=== PATIENT | male | born 1955 | race Caucasian/White ===

== ENCOUNTER 2022-12-02 14:31 | Emergency (ER) | payer MEDICARE, SELFPAY ==
[2022-12-02 14:45] VITALS: BP 143/94; PULSE 74; RESP 16; TEMP 36.9; O2SAT 98; BMI 26.6
--- NOTE | 2022-12-02 15:03 | ED.GENADULT ---
HPI - General Adult General Chief complaint: Urogenital Problems, Male Stated complaint: UTI only one kidney Time Seen by Provider: 12/02/22 14:50 History of Present Illness HPI narrative: This 67-year-old male comes in reporting increased pressure when voiding urine over the past 24 hours or so. He states that he did not did not sleep so well last night. He reports that he has 1 kidney and has had urinary tract infections in the past. He comes in to rule out urinary tract infection. Other than this he has been in good health and has no other complaints. He denies having any fevers or pain when voiding urine. Related Data Home Medications Medication Instructions Recorded Confirmed amlodipine 5 mg tablet 5 mg PO DAILY 12/02/22 12/02/22 clonazepam 0.5 mg tablet mg PO 12/02/22 mirtazapine 7.5 mg tablet 7.5 mg PO QPM 12/02/22 12/02/22 pravastatin 40 mg tablet 40 mg PO DAILY 12/02/22 12/02/22 Previous Rx's Medication Instructions Recorded cephalexin 500 mg capsule 500 mg PO TID 10 days #30 caps 12/02/22 Allergies Allergy/AdvReac Type Severity Reaction Status Date / Time No Known Drug Allergies Allergy Verified 12/02/22 14:42 Review of Systems Status of ROS: Reports: 10 or more systems reviewed and unremarkable except as noted in History and below Narrative: Constitutional: No fevers, no weight gain or loss. Eyes: No discharge. No vision changes. HENT: No congestion, no sore throat, no ear pain. Cardiovascular: No chest pain, no palpitations. Respiratory: No shortness of breath, no wheezes, no cough. Gastrointestinal: No abdominal pain, no vomiting, no diarrhea. Genitourinary: No hematuria. Increased pressure when voiding urine. Musculoskeletal: Normal range of motion. Skin: No rashes, no pruritis. Neurological: No dizziness, weakness, sensory change, speech change. Endo/Heme/Allergies: No bruising or bleeding. No polydipsia. Pysch: no suicidality, no anxiety, no insomnia. All other systems reviewed and are negative. PFSH PFS Social History Smoking Status: Never smoker How often do you have a drink containing alcohol: never AUDIT-C Alcohol total score: 0 Non-prescribed substance use: denies use service: No Exam Narrative: Exam Narrative: Constitutional: Well-developed, well-nourished, no acute distress. HEENT: Normocephalic, atraumatic. Neck: Normal range of motion. Nontender. Supple. Heart: Regular. No murmurs. Normal rate. Intact distal pulses. Lungs: Clear to auscultation. No chest discomfort. No wheezes, rhonchi, or rales. Abdomen: Normal bowel sounds. Nontender. No rebound tenderness. Genitalia: Deferred. Back: No midline tenderness. Normal range of motion. Extremities: Normal range of motion. No injury. Skin: Intact. No rash. Warm. No erythema or pallor. Neurologic: No altered sensation. No weakness. Alert and oriented. Psychiatric: No suicidality. No anxiety or depression. No insomnia. Nursing notes and vitals signs are reviewed. Const: Vital Signs, click to edit/add: Vital Signs - 24 hr 12/02/22 14:45 Temperature 98.4 F Pulse Rate [Right Pulse Oximeter] 74 Respiratory Rate 16 Blood Pressure [Ri ght Upper Arm] 143/94 H Pulse Oximetry 98 Oxygen Delivery Me thod Room Air Course Vital Signs Vital signs: Initial Vital Signs Temperature 98.4 F 12/02/22 14:45 Temperature Source Temporal Artery Scan 12/02/22 14:45 Pulse Rate 74 12/02/22 14:45 Pulse Rhythm Regular 12/02/22 14:45 Respiratory Rate 16 12/02/22 14:45 Blood Pressure 143/94 H 12/02/22 14:45 Blood Pressure Mean 110 12/02/22 14:45 Blood Pressure Position Sitting 12/02/22 14:45 Pulse Oximetry 98 12/02/22 14:45 Oxygen Delivery Method Room Air 12/02/22 14:45 Vital Signs Temperature 98.4 F 12/02/22 14:45 Pulse Rate 74 12/02/22 14:45 Respiratory Rate 16 12/02/22 14:45 Blood Pressure 143/94 H 12/02/22 14:45 Pulse Oximetry 98 12/02/22 14:45 Oxygen Delivery Method Room Air 12/02/22 14:45 Temperature 98.4 F 12/02/22 14:45 Pulse Rate 74 12/02/22 14:45 Respiratory Rate 16 12/02/22 14:45 Blood Pressure 143/94 H 12/02/22 14:45 Pulse Oximetry 98 12/02/22 14:45 Oxygen Delivery Method Room Air 12/02/22 14:45 Medical Decision Making MDM Narrative Medical decision making narrative: This patient comes in with concern of a possibility of urinary tract infection. Urinalysis does show 10-25 white blood cells per high-powered field. The patient states that he has just 1 kidney but this seems to be functioning properly. A prescription for Keflex is provided. At the time of discharge the patient appears safe for outpatient management. The treatment plan is reviewed along with written and verbal return precautions. Reasons to return and the importance of close followup were also reviewed. Lab Data Labs: Lab Results 12/02/22 Range/Units 14:53 Urine Color Light yellow (Yellow) Urine Appearance Clear (Clear) Urine pH 6.5 (5.0-8.5) Ur Specific [place] 1.010 (1.000-1.030) Urine Protein Negative (Negative) Urine Glucose (UA) Negative (Negative) Urine Ketones Negative (Negative) Urine Blood Trace-intact A (Negative) Urine Nitrite Negative (Negative) Urine Bilirubin Negative (Negative) Urine Urobilinogen 0.2 (0.2-1.0) Ur Leukocyte Esterase 3+ A (Negative) Urine RBC 0-2 (0-2) Urine WBC 10-25 A (0-5) Ur Squamous Epith Cells None (None-Few) Urine Bacteria Few A (None) Discharge Plan Discharge Clinical Impression: Urinary tract infection Patient Disposition: Home, Self-Care Condition: Unchanged Additional Instructions: Take medication as prescribed. Follow up with MD as needed or return if worsening. Prescriptions: New cephalexin 500 mg capsule 500 mg PO TID 10 Days Qty: 30 0RF No Action pravastatin 40 mg tablet 40 mg PO DAILY clonazepam 0.5 mg tablet PO amlodipine 5 mg tablet 5 mg PO DAILY mirtazapine 7.5 mg tablet 7.5 mg PO QPM Follow Up/Referrals: Provider,Not a Local [Primary Care Provider] - Stand Alone Forms: [employer] Info Instructions
[2022-12-02 15:05] LABS: Appearance Urine Clear (Clear); Bilirubin Urine Negative (Negative); Blood Urine Trace-intact (Negative); Color Urine Light yellow (Yellow); Glucose Urine Negative (Negative); Ketones Urine Negative (Negative); Leukocyte Esterase Urine 3+ (Negative); Nitrite Urine Negative (Negative); Protein Urine Negative (Negative); Urobilinogen Urine 0.2 (0.2-1.0); pH Urine 6.5 (5.0-8.5)
[2022-12-02 15:26] LABS: Bacteria Urine Few; RBC Urine 0-2 (0-2)
== END 2022-12-02 15:41 | disposition home or self-care (01) ==
PROVIDERS: Emergency Provider Emergency Medicine Emergency Medical Services
DX: N39.0 Urinary tract infection, site not specified (principal)
CPT/HCPCS: 81003; 81015; 87086; 87186; 99283; 99284

== ENCOUNTER 2023-01-16 08:44 | Emergency (ER) | payer MEDICARE, SELFPAY ==
[2023-01-16 08:48] VITALS: BP 154/77; PULSE 71; RESP 18; TEMP 36.9; O2SAT 97; BMI 26.6
--- NOTE | 2023-01-16 09:10 | ED_ITS ---
HPI - General Adult General Chief complaint: Allergic Reaction Stated complaint: full body rash after medication change Time Seen by Provider: 01/16/23 08:57 History of Present Illness HPI narrative: PATIENT IS A 67-YEAR-OLD MALE, who took Lexapro last night and lisinopril and a it increased dose today. He noted some rash in his knees his chest his arms. No throat or tongue swelling, no breathing difficulty. Patient has had no chest pain. No history of allergic reaction to medication. He is on mirtazapine as well but has been for quite some time. He is also on pravastatin. Related Data Home Medications Medication Instructions Recorded Confirmed clonazepam 0.5 mg tablet mg PO 12/02/22 mirtazapine 7.5 mg tablet 7.5 mg PO QPM 12/02/22 12/02/22 pravastatin 40 mg tablet 40 mg PO DAILY 12/02/22 01/16/23 escitalopram oxalate 5 mg tablet 5 mg PO DAILY 01/16/23 01/16/23 lisinopril 10 mg tablet 10 mg PO DAILY 01/16/23 01/16/23 Previous Rx's Medication Instructions Recorded cephalexin 500 mg capsule 500 mg PO TID 10 days #30 caps 12/02/22 Allergies Allergy/AdvReac Type Severity Reaction Status Date / Time No Known Drug Allergies Allergy Verified 12/02/22 14:42 Review of Systems Status of ROS: Reports: 6 or more systems reviewed and unremarkable except as noted in History and below [facility] Social History Smoking Status: Never smoker How often do you have a drink containing alcohol: never AUDIT-C Alcohol total score: 0 Non-prescribed substance use: denies use service: No Exam Narrative: Exam Narrative: Objective: Vital signs show slightly elevated blood pressure, and otherwise unremarkable HEENT is unremarkable no facial asymmetry tongue appears midline and no swelling, throat is clear Neck is supple Lungs are clear Heart rhythm regular heart murmur Abdomen benign soft nontender no masses or hepatomegaly Extremities are no edema Neurologic nonfocal, good peripheral perfusion Skin shows the rash in his knees his thighs his abdomen forearms. This looks like a macular rash consistent with a drug rash. Const: Vital Signs, click to edit/add: Vital Signs - 24 hr 01/16/23 08:48 Temperature 98.5 F Pulse Rate [Right Pulse Oximeter] 71 Respiratory Rate 18 Blood Pressure [Ri ght Upper Arm] 154/77 H Pulse Oximetry 97 Oxygen Delivery Me thod Room Air Course Vital Signs Vital signs: Initial Vital Signs Temperature 98.5 F 01/16/23 08:48 Temperature Source Temporal Artery Scan 01/16/23 08:48 Pulse Rate 71 01/16/23 08:48 Respiratory Rate 18 01/16/23 08:48 Blood Pressure 154/77 H 01/16/23 08:48 Blood Pressure Mean 102 01/16/23 08:48 Blood Pressure Position Sitting 01/16/23 08:48 Pulse Oximetry 97 01/16/23 08:48 Oxygen Delivery Method Room Air 01/16/23 08:48 Vital Signs Temperature 98.5 F 01/16/23 08:48 Pulse Rate 71 01/16/23 08:48 Respiratory Rate 18 01/16/23 08:48 Blood Pressure 154/77 H 01/16/23 08:48 Pulse Oximetry 97 01/16/23 08:48 Oxygen Delivery Method Room Air 01/16/23 08:48 Temperature 98.5 F 01/16/23 08:48 Pulse Rate 71 01/16/23 08:48 Respiratory Rate 18 01/16/23 08:48 Blood Pressure 154/77 H 01/16/23 08:48 Pulse Oximetry 97 01/16/23 08:48 Oxygen Delivery Method Room Air 01/16/23 08:48 Medical Decision Making MDM Narrative Medical decision making narrative: Patient has a generalized allergic reaction skin rash likely to medication. He has no new other new antigen exposures, but he did take Lexapro for the 1st time last night and lisinopril at a higher dose today. At this point I would recommend he stop the lisinopril and Lexapro. Watch for the next 12 to48 hours., Benadryl as needed, watch for any throat tightening her tongue swelling. Recheck with regular doctor next 2-3 days regarding restarting medication. Continue to monitor his blood pressure, may take some Benadryl as well as mention. Return as needed to ED. Discharge Plan Discharge Clinical Impression: Allergic reaction Patient Disposition: Home, Self-Care Condition: Stable Additional Instructions: HOLD LISINOPRIL AND LEXAPRO. DISCUSSED WITH IN THE NEXT 12-48 HOURS REGARDING RESTARTING MEDICATION. RETURN IF ANY DIFFICULTY BREATHING TONGUE SWELLING OR OTHER PROBLEMS. MAY TAKE AN OCCASIONAL BENADRYL IF NEEDED. Activity Level: Light activity Discharge Diet: Regular Prescriptions: No Action pravastatin 40 mg tablet 40 mg PO DAILY clonazepam 0.5 mg tablet PO mirtazapine 7.5 mg tablet 7.5 mg PO QPM cephalexin 500 mg capsule 500 mg PO TID 10 Days Qty: 30 0RF lisinopril 10 mg tablet 10 mg PO DAILY escitalopram oxalate 5 mg tablet 5 mg PO DAILY Follow Up/Referrals: Natalie Juárez DO [Primary Care Provider] - Stand Alone Forms: [facility] Info Instructions
== END 2023-01-16 09:15 | disposition home or self-care (01) ==
PROVIDERS: Emergency Provider Family Medicine; PCP Family Medicine
DX: R21 Rash and other nonspecific skin eruption (principal); T50.905A Adverse effect of unspecified drugs, medicaments and biological substances, initial encounter
CPT/HCPCS: 99283

== ENCOUNTER 2023-03-01 10:56 | Emergency (ER) | payer MEDICARE, SELFPAY ==
[2023-03-01 11:07] VITALS: BP 128/74; PULSE 62; RESP 16; TEMP 36.8; O2SAT 97; BMI 25.0
--- NOTE | 2023-03-01 11:13 | ED.SKABFB ---
HPI - Skin/Abscess/Foreign Bdy General Time Seen by Provider: 11:18 Date Seen: 03/01/23 Chief complaint: Skin/Abscess/Foreign Body Stated complaint: Rash Time Seen by Provider: 03/01/23 11:12 Source: patient, RN notes reviewed and old records reviewed Mode of arrival: ambulatory Limitations: no limitations History of Present Illness HPI narrative: Patient is coming in with a rash on his lower extremities that has been present on and off for over year. He does see Dermatology for precancerous skin lesions. He has not had this rash evaluated by them. He does not note any bleeding excessively if he cut some self. No bleeding with brushing his teeth. He maybe will get a sock line on his socks but does not denote any significant shortness of breath or edema. He states he does do a lot of walking. He wonders if it is how he sleeps as this is where his legs will rest on each other. The rash is not itchy, not symptomatic of anything. He did not try to get into clinic, has not been evaluated for this. MD complaint: rash Related Data Home Medications Medication Instructions Recorded Confirmed clonazepam 0.5 mg tablet mg PO 12/02/22 mirtazapine 7.5 mg tablet 7.5 mg PO QPM 12/02/22 12/02/22 pravastatin 40 mg tablet 40 mg PO DAILY 12/02/22 01/16/23 escitalopram oxalate 5 mg tablet 5 mg PO DAILY 01/16/23 01/16/23 lisinopril 10 mg tablet 10 mg PO DAILY 01/16/23 01/16/23 Previous Rx's Medication Instructions Recorded cephalexin 500 mg capsule 500 mg PO TID 10 days #30 caps 12/02/22 Allergies Allergy/AdvReac Type Severity Reaction Status Date / Time No Known Drug Allergies Allergy Verified 03/01/23 11:10 Review of Systems Narrative: As per HPI PFSH PFSH Social History Smoking Status: Never smoker Do you use any of these nicotine containing products: None How often do you have a drink containing alcohol: never AUDIT-C Alcohol total score: 0 Non-prescribed substance use: denies use service: No Exam Const: Vital Signs, click to edit/add: Vital Signs - 24 hr 03/01/23 11:07 Temperature 98.2 F Pulse Rate [Right Pulse Oximeter] 62 Respiratory Rate 16 Blood Pressure [Ri ght Upper Arm] 128/74 Pulse Oximetry 97 Oxygen Delivery Me thod Room Air Documenting provider has reviewed patient's vital signs: yes Common normals: no apparent distress, average body habitus, oriented x3, no limitations, healthy appearing and alert General appearance: cooperative, comfortable, well kempt and well developed HENMT: Common normals: normocephalic, head/scalp atraumatic and hearing grossly normal bilaterally Head and scalp: normocephalic and atraumatic Eye: Common normals: PERRL, EOMs intact bilaterally, conjunctivae normal and no scleral icterus Conjunctiva: conjunctiva(e) normal Pupil: PERRL Resp: Common normals: normal respiratory effort, no retractions, no use of accessory muscles and clear to auscultation bilaterally Effort & inspection: able to speak in complete sentences Auscultation: clear to auscultation bilaterally Cardio: Common normals: regular rate, regular rhythm, S1 normal heart sound, S2 normal heart sound, no gallops, no clicks and no murmurs Rate: regular rate Rhythm: regular rhythm Heart sounds: S1 normal and S2 normal Extremity: Other: Has trace pitting edema along the anterior tibia, sock line noted. On the inner surface of both of his lower extremities above the malleoli and about a [address] up there is a erythematous non blanchable rash consistent with small micro hemorrhages in the skin. He does not have significant edema and does not report this. He does wonder if it is how he sleeps with his legs rubbing together. Neuro: Common normals: oriented x3 Sensorium/orientation: alert Psych: Appearance: well kempt Course Course Hospital Course: Did review with patient that this does look like a petechial skin rash with microhemorrhages that we frequently see in patients with chronic edema. He believes he had labs done about a month ago. The only thing I would suggest is that we make sure his CBC showing normal platelet count. He has no stigmata of bleeding elsewhere that would suggest an abnormality. If he had a CBC that was normal a month ago in this rash is been going on for over a year, believe that he is stable to follow up outpatient and just observe. Reevaluation(s) Reevaluation #1: One month ago erin blood count was 9000, hemoglobin 15 and platelet count [id number]. Reviewed with Luciano that I believe this be benign, do wonder if in his case could be contributed by his sleeping pattern with his legs rubbing in this area as the rash is the worst in these positions. Maybe see some faint spots laterally on the lower legs. Did discuss that this can be seen with underlying venous insufficiency/edema. He does have some varicose veins that are visible medial thigh area. Vital Signs Vital signs: Initial Vital Signs Temperature 98.2 F 03/01/23 11:07 Temperature Source Temporal Artery Scan 03/01/23 11:07 Pulse Rate 62 03/01/23 11:07 Pulse Rhythm Regular 03/01/23 11:07 Pulse Strength 3+ Normal 03/01/23 11:07 Respiratory Rate 16 03/01/23 11:07 Blood Pressure 128/74 03/01/23 11:07 Blood Pressure Mean 92 03/01/23 11:07 Blood Pressure Position Sitting 03/01/23 11:07 Pulse Oximetry 97 03/01/23 11:07 Oxygen Delivery Method Room Air 03/01/23 11:07 Vital Signs Temperature 98.2 F 03/01/23 11:07 Pulse Rate 62 03/01/23 11:07 Respiratory Rate 16 03/01/23 11:07 Blood Pressure 128/74 03/01/23 11:07 Pulse Oximetry 97 03/01/23 11:07 Oxygen Delivery Method Room Air 03/01/23 11:07 Temperature 98.2 F 03/01/23 11:07 Pulse Rate 62 03/01/23 11:07 Respiratory Rate 16 03/01/23 11:07 Blood Pressure 128/74 03/01/23 11:07 Pulse Oximetry 97 03/01/23 11:07 Oxygen Delivery Method Room Air 03/01/23 11:07 Critical Care Time Critical Care Time Critical Care Time: No Discharge Plan Discharge Clinical Impression: Rash Patient Disposition: Home, Self-Care Condition: Stable Instructions: Venous Insufficiency (DC) Additional Instructions: This rash appears benign and is likely small microvascular hemorrhages in the skin, we see these frequently in medicine. Continue with your exercise and walking. Can show this to your information delivery analyst or primary provider when you follow up, do recommend scheduling an appointment. Activity Level: Activity as Tolerated Discharge Diet: Heart Healthy (2 gm sodium, low fat) Prescriptions: No Action pravastatin 40 mg tablet 40 mg PO DAILY clonazepam 0.5 mg tablet PO mirtazapine 7.5 mg tablet 7.5 mg PO QPM cephalexin 500 mg capsule 500 mg PO TID 10 Days Qty: 30 0RF lisinopril 10 mg tablet 10 mg PO DAILY escitalopram oxalate 5 mg tablet 5 mg PO DAILY Follow Up/Referrals: Natalie Juárez DO [Primary Care Provider] - Stand Alone Forms: [facility] Info Instructions
== END 2023-03-01 11:55 | disposition home or self-care (01) ==
PROVIDERS: Emergency Provider Family Medicine; PCP Family Medicine
DX: R21 Rash and other nonspecific skin eruption (principal)
CPT/HCPCS: 99282; 99283

== ENCOUNTER 2023-03-11 10:31 | Emergency (ER) | payer MEDICARE, SELFPAY ==
[2023-03-11 10:49] VITALS: BP 114/82; PULSE 64; RESP 16; TEMP 36.8; O2SAT 96; BMI 25.8
--- NOTE | 2023-03-11 11:16 | ED_ITS ---
HPI - General Adult General Time Seen by Provider: 11:16 Date Seen: 03/11/23 Chief complaint: Skin/Abscess/Foreign Body Stated complaint: Rash lower legs Time Seen by Provider: 03/11/23 10:44 History of Present Illness HPI narrative: Patient is a 67-year-old male history of hypertension and depression presenting to the emergency department for rash to his bilateral lower extremities. He states this rash has been on off for the past year. States he 1st noticed it again this morning and was mostly on his right lower extremity in the medial aspect of lower leg. There is a small area on the left leg too. States previously 3 weeks ago new seen in the emergency department for this it was worse. Patient does note the last occurrence of a rash or the worst 2. He has not had any associated pruritus or pain. No numbness or weakness noted. Patient states the rash is asymptomatic but he wanted to have it evaluated. She does have a dermatology appointment scheduled for next month and a primary care appointment for next week. Denies chest pain, headache, weakness, numbness, diarrhea, chest pain, shortness of breath. Related Data Home Medications Medication Instructions Recorded Confirmed clonazepam 0.5 mg tablet mg PO 12/02/22 mirtazapine 7.5 mg tablet 7.5 mg PO QPM 12/02/22 03/11/23 pravastatin 40 mg tablet 40 mg PO DAILY 12/02/22 03/11/23 escitalopram oxalate 5 mg tablet 5 mg PO DAILY 01/16/23 03/11/23 lisinopril 10 mg tablet 10 mg PO DAILY 01/16/23 03/11/23 amlodipine 5 mg tablet mg 03/11/23 Previous Rx's Medication Instructions Recorded cephalexin 500 mg capsule 500 mg PO TID 10 days #30 caps 12/02/22 Allergies Allergy/AdvReac Type Severity Reaction Status Date / Time No Known Drug Allergies Allergy Verified 03/01/23 11:10 Review of Systems Status of ROS: Reports: 10 or more systems reviewed and unremarkable except as noted in History and below [facility] Social History Smoking Status: Never smoker Do you use any of these nicotine containing products: None How often do you have a drink containing alcohol: never AUDIT-C Alcohol total score: 0 Non-prescribed substance use: denies use service: No Exam Narrative: Exam Narrative: Const: Well-nourished, Well-developed, in mild distress Eyes: PERRL, no conjunctival injection, and symmetrical lids ENMT: Atraumatic external nose and ears. Moist mucous membranes. Neck: Symmetric, trachea midline, MSK:Extremities w/o deformity, Normal Active ROM Skin: Warm, Dry. Petechial rash seen in the right remaining with apparent remote 1 cm wound and from cm stone. Is another 1 x 1 cm rash seen around the left Neuro: Normal Muscle tone, No focal neurological deficits. Psych: Awake, Alert, & Oriented x3. Appropriate mood and affect. Const: Vital Signs, click to edit/add: Vital Signs - 24 hr 03/11/23 10:49 Temperature 98.3 F Pulse Rate [Pulse Oximeter] 64 Respiratory Rate 16 Blood Pressure [Ri ght Upper Arm] 114/82 Pulse Oximetry 96 Oxygen Delivery Me thod Room Air Course Vital Signs Vital signs: Initial Vital Signs Temperature 98.3 F 03/11/23 10:49 Temperature Source Temporal Artery Scan 03/11/23 10:49 Pulse Rate 64 03/11/23 10:49 Respiratory Rate 16 03/11/23 10:49 Blood Pressure 114/82 03/11/23 10:49 Blood Pressure Mean 92 03/11/23 10:49 Blood Pressure Position Supine 03/11/23 10:49 Pulse Oximetry 96 03/11/23 10:49 Oxygen Delivery Method Room Air 03/11/23 10:49 Vital Signs Temperature 98.3 F 03/11/23 10:49 Pulse Rate 64 03/11/23 10:49 Respiratory Rate 16 03/11/23 10:49 Blood Pressure 114/82 03/11/23 10:49 Pulse Oximetry 96 03/11/23 10:49 Oxygen Delivery Method Room Air 03/11/23 10:49 Temperature 98.3 F 03/11/23 10:49 Pulse Rate 64 03/11/23 10:49 Respiratory Rate 16 03/11/23 10:49 Blood Pressure 114/82 03/11/23 10:49 Pulse Oximetry 96 03/11/23 10:49 Oxygen Delivery Method Room Air 03/11/23 10:49 Medical Decision Making MDM Narrative Medical decision making narrative: Patient is a 67 year old male presents emergency department for a rash on his bilateral lower extremities. Rash appears petechiae nature. It is not raised. He is asymptomatic with a rash. States has been on off for the past year and is getting in with his district adviser next month in primary care provider next week. States he last had the rash was 3 weeks ago and went away after a few days. He is not know what is causing it. He last had lab work but 2 months ago so we will repeat CBC to check his platelet levels. And I do not believe further workup is necessary at this time. Symptom is doing well and this is a chronic issue for the past year. CBC did return showing no concerning abnormalities. Is unclear what is causing this rash at this time but He continues to be asymptomatic with normal vital signs. We will discharge the patient home informed them to take pictures of the rash is to show them to his district adviser and primary care provider in case this appears before he is able to see them. Patient is agreeable with this plan. Differential Diagnosis Differential Diagnosis: Allergic reaction, contact dermatitis, heat dermatitis, viral dermatitis Lab Data Lab results reviewed: Yes I reviewed the patient's lab results Labs: Lab Results 03/11/23 Range/Units 11:45 WBC 6.97 (4.50-11.00) K/uL RBC 5.07 (4.30-5.90) m/uL Hgb 15.2 (13.5-17.5) gm/dL Hct 45.1 (37.0-53.0) % MCV 89 (80-100) fL MCH 30 (26-34) pg MCHC 34 (32-36) gm/dL RDW Coeff of Barbara 12.5 (11.5-15.5) % Plt Count 262 (140-440) K/uL Neut % (Auto) 54.5 (42.0-72.0) % Lymph % (Auto) 32.1 (20-44) % [place] % (Auto) 11.6 H (0.0-11.0) % Eos % (Auto) 1.1 (0.0-7.0) % Baso % (Auto) 0.4 (0.0-3.0) % Neut # (Auto) 3.79 (1.7-7.0) K/uL Lymph # (Auto) 2.24 (0.90-2.90) K/uL [place] # (Auto) 0.80 (0.00-0.90) K/UL Eos # (Auto) 0.08 (0.00-0.50) K/uL Baso # (Auto) 0.03 (0.00-0.30) K/uL Abs Immat Gran (auto) 0.02 (0.00-0.30) K/uL Imm/Tot Granulo (auto) 0.3 % Discharge Plan Discharge Clinical Impression: Rash Patient Disposition: Home, Self-Care Condition: Stable Instructions: Acute Rash (ED) Additional Instructions: Follow up with your district adviser and your primary care provider. Take photos of the rash in case it goes away. Return for new or worsening symptoms. Prescriptions: No Action pravastatin 40 mg tablet 40 mg PO DAILY clonazepam 0.5 mg tablet PO mirtazapine 7.5 mg tablet 7.5 mg PO QPM cephalexin 500 mg capsule 500 mg PO TID 10 Days Qty: 30 0RF lisinopril 10 mg tablet 10 mg PO DAILY escitalopram oxalate 5 mg tablet 5 mg PO DAILY amlodipine 5 mg tablet Patient Comments: TAKE 1 TABLET (5 MG) BY MOUTH ONCE DAILY. Follow Up/Referrals: Natalie Juárez DO [Primary Care Provider] - Stand Alone Forms: [employer] Info Instructions
[2023-03-11 11:51] LABS: Basophils Absolute Auto 0.03 K/uL (0.00-0.30); Basophils Percent Auto 0.4 % (0.0-3.0); Eosinophils Absolute Auto 0.08 K/uL (0.00-0.50); Eosinophils Percent Auto 1.1 % (0.0-7.0); Hematocrit 45.1 % (37.0-53.0); Hemoglobin* 15.2 gm/dL (13.5-17.5); Immature Granulocytes Abs Auto 0.02 K/uL (0.00-0.30); Immature Granulocytes Pct Auto 0.3 %; Lymphocytes Absolute Auto 2.24 K/uL (0.90-2.90); Lymphocytes Percent Auto 32.1 % (20-44); Mean Corpuscular HGB Conc 34 gm/dL (32-36); Mean Corpuscular Hemoglobin 30 pg (26-34); Mean Corpuscular Volume 89 fL (80-100); Monocytes Percent Auto 11.6 % (0.0-11.0); Neutrophils Absolute Auto 3.79 K/uL (1.7-7.0); Neutrophils Percent Auto 54.5 % (42.0-72.0); Platelet Count* 262 K/uL (140-440); RDW Coefficient of Variation % 12.5 % (11.5-15.5); Red Blood Count 5.07 m/uL (4.30-5.90); White Blood Count* 6.97 K/uL (4.50-11.00)
[2023-03-11 11:54] LABS: Slide Review Reflex No
== END 2023-03-11 12:18 | disposition home or self-care (01) ==
PROVIDERS: Emergency Provider Student in an Organized Health Care Education/Training Program; PCP Family Medicine
DX: R21 Rash and other nonspecific skin eruption (principal)
CPT/HCPCS: 36415; 85025; 99282; 99285

== ENCOUNTER 2023-03-30 13:36 | Emergency (ER) | payer MEDICARE, SELFPAY ==
[2023-03-30 13:49] VITALS: BP 116/76; PULSE 69; RESP 18; TEMP 36.4; O2SAT 97; BMI 26.6
[2023-03-30 14:20] LABS: Appearance Urine Clear (Clear); Bilirubin Urine Negative (Negative); Blood Urine Negative (Negative); Color Urine Yellow (Yellow); Glucose Urine Negative (Negative); Ketones Urine Negative (Negative); Leukocyte Esterase Urine Negative (Negative); Nitrite Urine Negative (Negative); Protein Urine Negative (Negative); Specific Gravity Urine <= 1.005 (1.000-1.030); Urobilinogen Urine 0.2 (0.2-1.0)
--- NOTE | 2023-03-30 14:30 | ED.MALEGU ---
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 Severity: mild Associated symptoms: Reports denies other symptoms Related Data Home Medications Medication Instructions Recorded Confirmed clonazepam 0.5 mg tablet mg PO 12/02/22 mirtazapine 7.5 mg tablet 7.5 mg PO QPM 12/02/22 03/11/23 pravastatin 40 mg tablet 40 mg PO DAILY 12/02/22 03/11/23 escitalopram oxalate 5 mg tablet 5 mg PO DAILY 01/16/23 03/11/23 lisinopril 10 mg tablet 10 mg PO DAILY 01/16/23 03/11/23 amlodipine 5 mg tablet mg 03/11/23 Previous Rx's Medication Instructions Recorded cephalexin 500 mg capsule 500 mg PO TID 10 days #30 caps 12/02/22 Allergies Allergy/AdvReac Type Severity Reaction Status Date / Time No Known Drug Allergies Allergy Verified 03/01/23 11:10 Review of Systems Status of ROS: Reports: 10 or more systems reviewed and unremarkable except as noted in History and below PFSH PFSH Social History Smoking Status: Never smoker Do you use any of these nicotine containing products: None How often do you have a drink containing alcohol: never AUDIT-C Alcohol total score: 0 Non-prescribed substance use: denies use service: No Exam Narrative: Exam Narrative: On examination and stabilization room 2, he is in no apparent distress, abdomen is soft, there is no guarding, slightly obese. Urinalysis pending Const: Vital Signs, click to edit/add: Vital Signs - 24 hr 03/30/23 13:49 Temperature 97.5 F L Pulse Rate [Right Pulse Oximeter] 69 Respiratory Rate 18 Blood Pressure [Ri ght Upper Arm] 116/76 Pulse Oximetry 97 Oxygen Delivery Me thod Room Air Documenting provider has reviewed patient's vital signs: yes Course Vital Signs Vital signs: Initial Vital Signs Temperature 97.5 F L 03/30/23 13:49 Temperature Source Temporal Artery Scan 03/30/23 13:49 Pulse Rate 69 03/30/23 13:49 Respiratory Rate 18 03/30/23 13:49 Blood Pressure 116/76 03/30/23 13:49 Blood Pressure Mean 89 03/30/23 13:49 Blood Pressure Position Sitting 03/30/23 13:49 Pulse Oximetry 97 03/30/23 13:49 Oxygen Delivery Method Room Air 03/30/23 13:49 Vital Signs Temperature 97.5 F L 03/30/23 13:49 Pulse Rate 69 03/30/23 13:49 Respiratory Rate 18 03/30/23 13:49 Blood Pressure 116/76 03/30/23 13:49 Pulse Oximetry 97 03/30/23 13:49 Oxygen Delivery Method Room Air 03/30/23 13:49 Temperature 97.5 F L 03/30/23 13:49 Pulse Rate 69 03/30/23 13:49 Respiratory Rate 18 03/30/23 13:49 Blood Pressure 116/76 03/30/23 13:49 Pulse Oximetry 97 03/30/23 13:49 Oxygen Delivery Method Room Air 03/30/23 13:49 MDM - Male Genitourinary MDM Narrative Medical decision making narrative: During this evaluation I considered multiple causes including acute abdominal pain, UTI, Differential Diagnosis Differential diagnosis: Likely urinary tract infection, epididymitis, prostatitis and acute retention of urine Medical Records Attestation: I reviewed the patient's medical records. Lab Data Attestation: I reviewed the patient's lab results. Labs: Lab Results 03/30/23 Range/Units 14:12 Urine Color Yellow (Yellow) Urine Appearance Clear (Clear) Urine pH 6.0 (5.0-8.5) Ur Specific [place] <= 1.005 (1.000-1.030) Urine Protein Negative (Negative) Urine Glucose (UA) Negative (Negative) Urine Ketones Negative (Negative) Urine Blood Negative (Negative) Urine Nitrite Negative (Negative) Urine Bilirubin Negative (Negative) Urine Urobilinogen 0.2 (0.2-1.0) Ur Leukocyte Esterase Negative (Negative) Urine RBC 0-2 (0-2) Urine WBC 0-2 (0-5) Ur Squamous Epith Cells Few (None-Few) Urine Bacteria None (None) Discharge Plan Discharge Clinical Impression: Abdominal discomfort Patient Disposition: Home, Self-Care Condition: Stable Instructions: Abdominal Pain (ED), Pelvic Pain (ED) Additional Instructions: No evidence of infection seen on urinalysis, I would go home and I would watch this Luciano lots of fluids rest, may be related to early in the week some mild overheating and dehydration, your kidney seem to be working good when I look at the urinalysis. Activity Level: Light activity Prescriptions: No Action pravastatin 40 mg tablet 40 mg PO DAILY clonazepam 0.5 mg tablet PO mirtazapine 7.5 mg tablet 7.5 mg PO QPM cephalexin 500 mg capsule 500 mg PO TID 10 Days Qty: 30 0RF lisinopril 10 mg tablet 10 mg PO DAILY escitalopram oxalate 5 mg tablet 5 mg PO DAILY amlodipine 5 mg tablet Patient Comments: TAKE 1 TABLET (5 MG) BY MOUTH ONCE DAILY. Follow Up/Referrals: Natalie Juárez DO [Primary Care Provider] - Stand Alone Forms: [employer] Info Instructions
[2023-03-30 14:38] LABS: RBC Urine 0-2 (0-2); WBC Urine 0-2 (0-5)
[2023-03-30 14:39] LABS: Squamous Epithelial Cell Urine Few (None-Few)
== END 2023-03-30 15:26 | disposition home or self-care (01) ==
LOC: ED 15:20
PROVIDERS: Emergency Provider Family Medicine; PCP Family Medicine
DX: R10.30 Lower abdominal pain, unspecified (principal)
CPT/HCPCS: 81001; 99282; 99283

== ENCOUNTER 2023-04-23 23:47 | Outpatient (CLI) | payer MEDICARE, SELFPAY | END 2023-04-23 23:48 | disposition home or self-care (01) | LOC: AMB 04-27 19:25 | PROVIDERS: PCP Family Medicine; Visit Provider Emergency Medicine | DX: T67.5XXA Heat exhaustion, unspecified, initial encounter (principal); X30.XXXA Exposure to excessive natural heat, initial encounter; Y92.003 Bedroom of unspecified non-institutional (private) residence as the place of occurrence of the external cause | CPT/HCPCS: A0998 ==

== ENCOUNTER 2023-09-06 14:47 | Emergency (ER) | payer MEDICARE, OTHER, SELFPAY ==
[2023-09-06 15:00] VITALS: BP 157/92; PULSE 69; RESP 16; TEMP 36.6; O2SAT 95; BMI 25.8
--- NOTE | 2023-09-06 15:16 | CRLHL7_ITS ---
For Patients: As a result of the Century Cures Act, medical imaging exams and procedure reports are released immediately into your electronic medical record. You may view this report before your referring provider. If you have questions, please contact your health care provider. INDICATION: Chest pain. TECHNIQUE: Two views COMPARISON: None. FINDINGS: Patient positioning: The patient is not rotated. Adequate inspiration. Heart and mediastinum: Normal transverse dimension of the cardiac silhouette. No significant abnormalities. Lungs and pleural spaces: Clear lungs and pleural spaces. Bones and soft tissues: No acute findings. Chronic appearing mild L1 superior endplate compression deformity. Bilateral symmetric gynecomastia. IMPRESSION: No radiographic findings to explain the clinical history of chest pain. Incidental findings described above. Dictated by Daren Alex MD @ 09/06/2023 6:16:28 PM (Electronically Signed)
--- NOTE | 2023-09-06 15:20 | ED.GENADULT ---
HPI - General Adult General Chief complaint: Chest Pain Stated complaint: Chest pain Time Seen by Provider: 09/06/23 15:02 Source: patient Mode of arrival: ambulatory Limitations: no limitations History of Present Illness HPI narrative: 68-year-old male coming in today complaining of chest pain. Pain is been present for about 3 days. It is a sharp pain that lasts a few seconds when it comes. It is substernal, at the very distal border of the sternum. Patient denies shortness of breath, fevers or chills. He denies changes in his appetite. Sometimes he does feel that pain right when he eats. Other times the pain comes and goes at random times, not associated with any physical activity. 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 Patient states that he has had a mesh put down down there and he takes daily Imodium. He states that every now and then he takes too much Imodium when he becomes backed up. He does state that he has felt constipated over the last several days as well. He states he has been gassier with increased burping. Past medical history is also significant for hypertension, hyperlipidemia, depression, anxiety and insomnia. Patient is on Pravachol, daily aspirin, lisinopril, mirtazapine, escitalopram, clonazepam and amlodipine. Patient lives alone. Related Data Home Medications Medication Instructions Recorded Confirmed clonazepam 0.5 mg tablet mg PO 12/02/22 mirtazapine 7.5 mg tablet 7.5 mg PO QPM 12/02/22 09/06/23 pravastatin 40 mg tablet 40 mg PO DAILY 12/02/22 09/06/23 escitalopram oxalate 5 mg tablet 5 mg PO DAILY 01/16/23 03/11/23 lisinopril 10 mg tablet 10 mg PO DAILY 01/16/23 03/11/23 amlodipine 5 mg tablet mg 03/11/23 aspirin 81 mg tablet,delayed 81 mg PO DAILY 09/06/23 09/06/23 release (Adult Aspirin Regimen) Previous Rx's Medication Instructions Recorded cephalexin 500 mg capsule 500 mg PO TID 10 days #30 caps 12/02/22 Allergies Allergy/AdvReac Type Severity Reaction Status Date / Time No Known Drug Allergies Allergy Verified 03/01/23 11:10 Review of Systems Status of ROS: Reports: 10 or more systems reviewed and unremarkable except as noted in History and below [facility] Social History Smoking Status: Never smoker Do you use any of these nicotine containing products: None How often do you have a drink containing alcohol: never How often do you have six or more drinks on one occasion: Never AUDIT-C Alcohol total score: 0 Non-prescribed substance use: denies use service: No Exam Narrative: Exam Narrative: Well-nourished well-developed patient in no acute distress. Alert and oriented. Answers questions appropriately. Mood and affect are appropriate. Thoughts are goal oriented and rational. No tangential or magical thinking noted. Patient speaks in full sentences without needing to catch their breath. Patient is currently asymptomatic. HEENT: Normocephalic atraumatic. Pupils are equally round reactive to light. Extraocular muscles are intact. Conjunctivae are moist without any icterus noted. Moist mucous membranes. Posterior pharynx is normal. Neck is soft without any lymphadenopathy or thyromegaly. No masses are appreciated. Cardiovascular: Heart is regular rate and rhythm S1 and S2 are present without any murmurs. I cannot reproduce his pain with palpation. Lungs: Clear to auscultation bilaterally no wheezes rhonchi or rales are appreciated. Patient takes deep breaths without any discomfort. Abdomen: Soft and nontender nondistended with normal bowel sounds. No guarding or rebound. Extremities: Bilateral lower extremities are without edema. Normal DP and PT pulses. Skin: Well perfused without any obvious rashes. Const: Vital Signs, click to edit/add: Vital Signs - 24 hr 09/06/23 15:00 Temperature 97.8 F Pulse Rate [Pulse Oximeter] 69 Respiratory Rate 16 Blood Pressure [Ri ght Upper Arm] 157/92 H Pulse Oximetry 95 Oxygen Delivery Me thod Room Air Course Course ED Course: EKG, read by me, shows normal sinus rhythm with a pulse of 69. Lab work was unremarkable. Potassium was slightly low at 3.2, 20 mEq of potassium chloride was given orally today for replacement. Chest x-ray, read by me, does not show any acute infiltrates or pathology. Does show a moderate amount of stool in the upper abdomen. Patient remained asymptomatic while he was here. Vital Signs Vital signs: Initial Vital Signs Temperature 97.8 F 09/06/23 15:00 Temperature Source Temporal Artery Scan 09/06/23 15:00 Pulse Rate 69 09/06/23 15:00 Respiratory Rate 16 09/06/23 15:00 Blood Pressure 157/92 H 09/06/23 15:00 Blood Pressure Mean 113 H 09/06/23 15:00 Blood Pressure Position Supine 09/06/23 15:00 Pulse Oximetry 95 09/06/23 15:00 Oxygen Delivery Method Room Air 09/06/23 15:00 Vital Signs Temperature 97.8 F 09/06/23 15:00 Pulse Rate 69 09/06/23 15:00 Respiratory Rate 16 09/06/23 15:00 Blood Pressure 157/92 H 09/06/23 15:00 Pulse Oximetry 95 09/06/23 15:00 Oxygen Delivery Method Room Air 09/06/23 15:00 Temperature 97.8 F 09/06/23 15:00 Pulse Rate 69 09/06/23 15:00 Respiratory Rate 16 09/06/23 15:00 Blood Pressure 157/92 H 09/06/23 15:00 Pulse Oximetry 95 09/06/23 15:00 Oxygen Delivery Method Room Air 09/06/23 15:00 Medications Administered Medications: Discontinued Medications Generic Name Dose Route Start Last Admin Trade Name Freq PRN Reason Stop Dose Admin Potassium Chloride 20 meq 09/06/23 16:21 09/06/23 16:48 Potassium Chloride 10 Meq Capsule Er PO 09/06/23 16:22 20 meq ONCE ONE Administration Medical Decision Making MDM Narrative Medical decision making narrative: 68-year-old male with zaps of lower chest discomfort. Given his history and workup today I do not believe this represents acute coronary syndrome, PE, pneumonia, pneumothorax or any other life-threatening condition. Could be from his constipation. At this time recommend symptomatic treatment follow-up as needed. Lab Data Lab results reviewed: Yes I reviewed the patient's lab results Labs: Lab Results 09/06/23 Range/Units 15:30 WBC 7.32 (4.50-11.00) K/uL RBC 5.11 (4.30-5.90) m/uL Hgb 15.5 (13.5-17.5) gm/dL Hct 45.4 (37.0-53.0) % MCV 89 (80-100) fL MCH 30 (26-34) pg MCHC 34 (32-36) gm/dL RDW Coeff of Barbara 12.3 (11.5-15.5) % Plt Count 271 (140-440) K/uL Neut % (Auto) 46.2 (42.0-72.0) % Lymph % (Auto) 40.3 (20-44) % [place] % (Auto) 11.5 H (0.0-11.0) % Eos % (Auto) 1.6 (0.0-7.0) % Baso % (Auto) 0.3 (0.0-3.0) % Neut # (Auto) 3.38 (1.7-7.0) K/uL Lymph # (Auto) 2.95 H (0.90-2.90) K/uL [place] # (Auto) 0.80 (0.00-0.90) K/UL Eos # (Auto) 0.12 (0.00-0.50) K/uL Baso # (Auto) 0.02 (0.00-0.30) K/uL Abs Immat Gran (auto) 0.01 (0.00-0.30) K/uL Imm/Tot Granulo (auto) 0.1 % D-Dimer Quant (PE/DVT) 0.27 (0.00-0.50) ug/ml Sodium 138 (135-149) mmol/L Potassium 3.2 L (3.6-5.1) mmol/L Chloride 104 (96-114) mmol/L Carbon Dioxide 24 (20-32) mmol/L Anion Gap 10 (7-15) mEq/L BUN 23 (7-30) mg/dL Creatinine 1.3 (0.5-1.5) mg/dL Estimated Creat Clear 50.44 Estimated GFR 61 ml/min Glucose 92 (60-115) mg/dL Calcium 9.0 (8.4-10.6) mg/dL Total Bilirubin 0.6 (0.1-1.5) mg/dL Direct Bilirubin 0.1 (0.0-0.5) mg/dL AST 27 (12-35) U/L ALT 22 (4-50) U/L Alkaline Phosphatase 60 (40-150) U/L Troponin I < 0.01 L (0.01-0.04) ng/mL C-Reactive Protein 0.6 (0.5-1.0) mg/dL Total Protein 7.9 (6.0-8.3) g/dL Albumin 4.6 (3.3-5.0) g/dL Lipase 110 (23-300) U/L POC Troponin I 0.01 (0.01-0.04) ng/ml ECG Data Attestation: I personally reviewed and interpreted this ECG as follows: Discharge Plan Discharge Clinical Impression: Atypical chest pain Patient Disposition: Home, Self-Care Condition: Stable Additional Instructions: Your workup today did not show any evidence of heart strain, lung disease or other life-threatening conditions. Your discomfort certainly could be secondary to mild constipation. Recommend he follow up with primary care provider as needed this coming week. Your potassium was also slightly low today at 3.2, recommend a repeat at your next appointment. This is not an emergency. Prescriptions: No Action pravastatin 40 mg tablet 40 mg PO DAILY clonazepam 0.5 mg tablet PO mirtazapine 7.5 mg tablet 7.5 mg PO QPM cephalexin 500 mg capsule 500 mg PO TID 10 Days Qty: 30 0RF lisinopril 10 mg tablet 10 mg PO DAILY escitalopram oxalate 5 mg tablet 5 mg PO DAILY aspirin [Adult Aspirin Regimen] 81 mg tablet,delayed release (DR/EC) 81 mg PO DAILY amlodipine 5 mg tablet Patient Comments: TAKE 1 TABLET (5 MG) BY MOUTH ONCE DAILY. Follow Up/Referrals: Natalie Juárez DO [Primary Care Provider] - Stand Alone Forms: [employer] Info Instructions
[2023-09-06 15:44] LABS: Troponin, Point-of-Care* 0.01 ng/ml (0.01-0.04)
[2023-09-06 16:03] LABS: Chloride* 104 mmol/L (96-114)
[2023-09-06 16:04] LABS: Albumin* 4.6 g/dL (3.3-5.0); Potassium* 3.2 mmol/L (3.6-5.1); Sodium* 138 mmol/L (135-149)
[2023-09-06 16:06] LABS: Creatinine* 1.3 mg/dL (0.5-1.5); Est. Creatinine Clearance* 50.44; Estimated Glomerular Filt Rate 61 ml/min; Lipase* 110 U/L (23-300)
[2023-09-06 16:07] LABS: Alanine Aminotransferase* 22 U/L (4-50); Alkaline Phosphatase* 60 U/L (40-150); Anion Gap 10 mEq/L (7-15); Aspartate Amino Transferase* 27 U/L (12-35); Bilirubin Direct* 0.1 mg/dL (0.0-0.5); Bilirubin Total* 0.6 mg/dL (0.1-1.5); Blood Urea Nitrogen* 23 mg/dL (7-30); Carbon Dioxide* 24 mmol/L (20-32); Glucose* 92 mg/dL (60-115); Total Protein* 7.9 g/dL (6.0-8.3)
[2023-09-06 16:08] LABS: D Dimer Quantitative* 0.27 ug/ml (0.00-0.50)
[2023-09-06 16:09] LABS: Basophils Absolute Auto 0.02 K/uL (0.00-0.30); Basophils Percent Auto 0.3 % (0.0-3.0); Eosinophils Absolute Auto 0.12 K/uL (0.00-0.50); Eosinophils Percent Auto 1.6 % (0.0-7.0); Hematocrit 45.4 % (37.0-53.0); Hemoglobin* 15.5 gm/dL (13.5-17.5); Immature Granulocytes Abs Auto 0.01 K/uL (0.00-0.30); Immature Granulocytes Pct Auto 0.1 %; Lymphocytes Absolute Auto 2.95 K/uL (0.90-2.90); Lymphocytes Percent Auto 40.3 % (20-44); Mean Corpuscular HGB Conc 34 gm/dL (32-36); Mean Corpuscular Hemoglobin 30 pg (26-34); Mean Corpuscular Volume 89 fL (80-100); Monocytes Percent Auto 11.5 % (0.0-11.0); Neutrophils Absolute Auto 3.38 K/uL (1.7-7.0); Neutrophils Percent Auto 46.2 % (42.0-72.0); Platelet Count* 271 K/uL (140-440); RDW Coefficient of Variation % 12.3 % (11.5-15.5); Red Blood Count 5.11 m/uL (4.30-5.90); White Blood Count* 7.32 K/uL (4.50-11.00)
[2023-09-06 16:10] LABS: C Reactive Protein* 0.6 mg/dL (0.5-1.0)
[2023-09-06 16:15] LABS: Slide Review Reflex No
[2023-09-06 16:17] VITALS: PULSE 67; O2SAT 95
[2023-09-06 16:24] LABS: Troponin I* < 0.01 ng/mL (0.01-0.04)
[2023-09-06 16:30] VITALS: PULSE 67; O2SAT 97
[2023-09-06 16:48] VITALS: PULSE 74; O2SAT 99
[2023-09-06] MEDS: POTASSIUM CHLORIDE 10 MEQ CAPSULE ER 20 MEQ PO (16:48)
[2023-09-06 16:51] VITALS: BP 148/96; PULSE 76; O2SAT 98
[2023-09-06 17:00] VITALS: PULSE 73; O2SAT 98
== END 2023-09-06 17:15 | disposition home or self-care (01) ==
PROVIDERS: Emergency Provider Family Medicine; PCP Family Medicine
DX: R07.9 Chest pain, unspecified (principal)
CPT/HCPCS: 36415; 71046; 80048; 80076; 83690; 84484; 85025; 85379; 86140; 99284; A9270

== ENCOUNTER 2023-10-01 10:24 | Emergency (ER) | payer MEDICARE, OTHER, SELFPAY ==
[2023-10-01 10:31] VITALS: BP 138/80; PULSE 69; RESP 18; TEMP 36.6; O2SAT 98; BMI 25.8
--- NOTE | 2023-10-01 10:54 | CRLHL7_ITS ---
For Patients: As a result of the Century Cures Act, medical imaging exams and procedure reports are released immediately into your electronic medical record. You may view this report before your referring provider. If you have questions, please contact your health care provider. Indication: CONSTIPATION Technique: Abdomen 1 view. Comparison: None. Findings: S shaped curvature of the spine. Increased stool in the colon. No pleural effusions. Mild degenerative changes both hips. No dilated bowel loops. Impression: Excess stool in the colon consistent with constipation. Dictated by Dereck Payne MD @ 10/01/2023 11:55:30 AM (Electronically Signed)
--- NOTE | 2023-10-01 10:56 | ED_ITS ---
HPI - Abdominal Pain General Chief Complaint: Abdominal Pain Stated Complaint: constipation/reflux Time Seen by Provider: 10/01/23 10:29 History of Present Illness HPI narrative: This 68-year-old male comes in reporting abdominal discomfort in the lower abdomen. He states that it began this morning. He states that he has had symptoms like this in the past. He does report constipation symptoms and has some associated abdominal discomfort. He states that he sometimes has diarrhea and often takes Imodium. He is not taking any stool softeners or bowel stimulants. He feels like there is some pressure in his bladder and is not sure if he can provide a urine sample. He did have a urinary tract infection about 9 months ago. He arrives here with normal vital signs. Related Data Home Medications Medication Instructions Recorded Confirmed clonazepam 0.5 mg tablet 0.5 mg PO DAILY 12/02/22 10/01/23 mirtazapine 7.5 mg tablet 7.5 mg PO QPM 12/02/22 10/01/23 pravastatin 40 mg tablet 40 mg PO DAILY 12/02/22 10/01/23 amlodipine 5 mg tablet 5 mg PO DAILY 03/11/23 10/01/23 aspirin 81 mg tablet,delayed 81 mg PO DAILY 09/06/23 10/01/23 release (Adult Aspirin Regimen) Previous Rx's Medication Instructions Recorded pantoprazole 20 mg tablet,delayed 20 mg PO DAILY #20 tabs 10/01/23 release (Protonix) Allergies Allergy/AdvReac Type Severity Reaction Status Date / Time No Known Drug Allergies Allergy Verified 10/01/23 10:30 Review of Systems Status of ROS Reports: 10 or more systems reviewed and unremarkable except as noted in History and below Narrative Constitutional: No fevers, no weight gain or loss. Eyes: No discharge. No vision changes. HENT: No congestion, no sore throat, no ear pain. Cardiovascular: No chest pain, no palpitations. Respiratory: No shortness of breath, no wheezes, no cough. Gastrointestinal: No vomiting, no diarrhea. Lower abdominal pain. Possible constipation. He states his last bowel movement was yesterday. Genitourinary: No dysuria, no hematuria. Musculoskeletal: Normal range of motion. Skin: No rashes, no pruritis. Neurological: No dizziness, weakness, sensory change, speech change. Endo/Heme/Allergies: No bruising or bleeding. No polydipsia. Pysch: no suicidality, no anxiety, no insomnia. All other systems reviewed and are negative. [facility] Social History Smoking Status: Never smoker Do you use any of these nicotine containing products: None How often do you have a drink containing alcohol: never How often do you have six or more drinks on one occasion: Never AUDIT-C Alcohol total score: 0 Non-prescribed substance use: denies use service: No Exam Narrative: Exam Narrative: Constitutional: Well-developed, well-nourished, no acute distress. HEENT: Normocephalic, atraumatic. Neck: Normal range of motion. Nontender. Supple. Heart: Regular. No murmurs. Normal rate. Intact distal pulses. Lungs: Clear to auscultation. No chest discomfort. No wheezes, rhonchi, or rales. Abdomen: Normal bowel sounds. No rebound tenderness. Tenderness in the lower abdomen. Genitalia: Deferred. Back: No midline tenderness. Normal range of motion. Extremities: Normal range of motion. No injury. Skin: Intact. No rash. Warm. No erythema or pallor. Neurologic: No altered sensation. No weakness. Alert and oriented. Psychiatric: No suicidality. No anxiety or depression. No insomnia. Nursing notes and vitals signs are reviewed. Const: Vital Signs, click to edit/add: Vital Signs - 24 hr 10/01/23 10:31 Temperature 97.9 F Pulse Rate [Pulse Oximeter] 69 Respiratory Rate 18 Blood Pressure [Ri ght Upper Arm] 138/80 Pulse Oximetry 98 Oxygen Delivery Me thod Room Air Course Vital Signs Vital signs: Initial Vital Signs Temperature 97.9 F 10/01/23 10:31 Temperature Source Temporal Artery Scan 10/01/23 10:31 Pulse Rate 69 10/01/23 10:31 Respiratory Rate 18 10/01/23 10:31 Blood Pressure 138/80 10/01/23 10:31 Blood Pressure Mean 99 10/01/23 10:31 Blood Pressure Position Sitting 10/01/23 10:31 Pulse Oximetry 98 10/01/23 10:31 Oxygen Delivery Method Room Air 10/01/23 10:31 Vital Signs Temperature 97.9 F 10/01/23 10:31 Pulse Rate 69 10/01/23 10:31 Respiratory Rate 18 10/01/23 10:31 Blood Pressure 138/80 10/01/23 10:31 Pulse Oximetry 98 10/01/23 10:31 Oxygen Delivery Method Room Air 10/01/23 10:31 Temperature 97.9 F 10/01/23 10:31 Pulse Rate 69 10/01/23 10:31 Respiratory Rate 18 10/01/23 10:31 Blood Pressure 138/80 10/01/23 10:31 Pulse Oximetry 98 10/01/23 10:31 Oxygen Delivery Method Room Air 10/01/23 10:31 MDM - Abdominal Pain MDM Narrative Medical decision making narrative: This 68-year-old male comes in reporting some recurrent episodes of constipation and wonders if he might have had a urinary tract infection. He does report some lower abdominal pain that is crampy. On exam he has normal bowel sounds and does not have any rebound tenderness. Urinalysis is negative for infection. A x-ray of the abdomen by my review does not show any sign of free air or obstruction. He does have some increased stool in the bowels. I did discuss [id number] remedies for managing and preventing constipation. I did recommend that he use a fiber additive regularly but also listed other [id number] medicines to attend to his bowels. The patient also is reporting some reflux symptoms. He did receive a prescription for Protonix. Lab Data Labs: Lab Results 10/01/23 Range/Units 10:54 Urine Color Yellow (Yellow) Urine Appearance Clear (Clear) Urine pH 5.5 (5.0-8.5) Ur Specific [place] 1.025 (1.000-1.030) Urine Protein 2+ A (Negative) Urine Glucose (UA) Negative (Negative) Urine Ketones Trace A (Negative) Urine Blood Negative (Negative) Urine Nitrite Negative (Negative) Urine Bilirubin Negative (Negative) Urine Urobilinogen 0.2 (0.2-1.0) Ur Leukocyte Esterase Negative (Negative) Urine RBC 0-2 (0-2) Urine WBC 0-2 (0-5) Ur Squamous Epith Cells Few (None-Few) Urine Bacteria None (None) Discharge Plan Discharge Clinical Impression: Esophagitis, reflux, Constipation Patient Disposition: Home, Self-Care Condition: Stable Additional Instructions: Take Protonix as prescribed for managing reflux symptoms. Recommended to use [id number] treatments to normalize and regulate bowel movements. Such treatments include fiber additive such as Metamucil, Citrucel, or Benefiber. Mineral oil may be used to help ease the transit of stool also. Other stimulan ts can be used also as needed such as MiraLax, Dulcolax, magnesium citrate, or milk of magnesia. Follow up with MD return if worsening. Prescriptions: New pantoprazole [Protonix] 20 mg tablet,delayed release (DR/EC) 20 mg PO DAILY Qty: 20 2RF No Action pravastatin 40 mg tablet 40 mg PO DAILY clonazepam 0.5 mg tablet 0.5 mg PO DAILY mirtazapine 7.5 mg tablet 7.5 mg PO QPM aspirin [Adult Aspirin Regimen] 81 mg tablet,delayed release (DR/EC) 81 mg PO DAILY amlodipine 5 mg tablet 5 mg PO DAILY Patient Comments: TAKE 1 TABLET (5 MG) BY MOUTH ONCE DAILY. Follow Up/Referrals: Natalie Juárez DO [Primary Care Provider] - Stand Alone Forms: [facility] [employer] Info Instructions
[2023-10-01 11:15] LABS: Appearance Urine Clear (Clear); Bilirubin Urine Negative (Negative); Blood Urine Negative (Negative); Color Urine Yellow (Yellow); Glucose Urine Negative (Negative); Ketones Urine Trace (Negative); Leukocyte Esterase Urine Negative (Negative); Nitrite Urine Negative (Negative); Protein Urine 2+ (Negative); Specific Gravity Urine 1.025 (1.000-1.030); Urobilinogen Urine 0.2 (0.2-1.0); pH Urine 5.5 (5.0-8.5)
--- OUTSIDE RECORDS SUMMARY | 2023-10-01 11:15 | XMS_ITS | Continuity of Care Document ---
Author Name Unknown Address [address] [place] [address] Phone [phone] Organization [facility], [facility] Address [address] [place] [address] Care Team Providers Care Reporting Developer Name Role Phone MARINE HAAS Primary Care Provider Assessment Encounter Date Assessment Date Assessment LastModified by Organization Details LastModified Time 08/22/2023 08/22/2023 68-year-old male with history of congenital imperforate anus, solitary kidney, and recurrent urethral stricture disease. Not available 08/22/2023 08:17:02 Plan of Treatment Reminders Order Date Submit Date Provider Last Modified By Organization Details Last Modified Time Details Appointments None record ed. Lab None record ed. Referral None record ed. Procedures None record ed. Surgeries None record ed. Imaging None record ed. Medication Orders None record ed. Patient TargetsNo targets recorded. Patient InstructionsNo instructions recorded. Reason for Referral None Reported. Procedures Surgical History Date Name Laterality Status Provider Name and Address Organization Details Recorded Time 3 Bladder Scan completed Pilar marcelo, [facility] 08/22/2023 10:45:31 3 UroCuff completed Erma marcelo [facility] 08/08/2023 16:46:48 3 Bladder Scan completed Erma marcelo [facility] 08/08/2023 16:22:41 3 Bladder Scan completed Romie marcelo [facility] 02/27/2023 15:07:12 3 Bladder Scan completed Venkatesh Ontiveros MD [address] [place] [address],[address], [place], [address], [facility] 09/27/2022 12:46:00 0 colonoscopy completed Pilar marcelo [facility] 08/22/2023 10:42:53 Imaging Results None recorded. Procedure Notes None recorded. Medical Equipment None Reported. Allergies No known drug allergies Medications Name Sig Start Date Stop Date Status Note LastModified by Organization Details LastModified Time paroxetine 10 mg tablet TAKE 1/2 TABLET (5MG) BY MOUTH FOR 1 WEEK, THEN INCREASE TO 1 TABLET (10MG) EVERY DAY 09/27 completed Not Available Not Available Not Available loperamide 2 mg capsule TAKE TWO CAPSULES BY MOUTH WITH 1ST LOOSE STOOL, THEN 1 CAP WITH OTHER LOOSE STOOLS. MAX 8 CAPS/24HR S active Not Available Not Available No t Available trazodone 50 mg tablet TAKE 1 TABLET (50 MG) BY MOUTH AT BEDTIME. 09/27 completed Not Available Not Available Not Available pravastatin 40 mg tablet TAKE ONE TABLET BY MOUTH ONCE DAILY active Not Available Not Available No t Available clonazepam 0.5 mg tablet TAKE 1 TABLET (0.5 MG) BY MOUTH ONCE DAILY AND ONE ADDITIONA L TABLET IF NEEDED FOR ANXIETY. TO LAST AT LEAST 30 DAYS. active Not Available Not Available No t Available clonazepam 1 mg tablet TAKE 1 TABLET (1 MG) BY MOUTH 3 TIMES DAILY IF NEEDED. 09/27 completed Not Available Not Available Not Available permethrin 5 % topical cream APPLY TO ENTIRE BODY FROM THE NECK DOWN AND LEAVE ON FOR 8 HOURS. THEN RINSE AND REPEAT THIS IN ONE WEEK. 09/27 completed Not Available Not Available Not Available amlodipine 5 mg tablet TAKE 1 TABLET (5 MG) BY MOUTH ONCE DAILY. active Not Available Not Available No t Available doxepin 10 mg capsule TAKE 1 CAPSULE (10 MG) BY MOUTH AT BEDTIME. active Not Available Not Available No t Available sulfamethox azole 800 mg-trimetho prim 160 mg tablet TAKE 1 TABLET BY MOUTH 2 TIMES DAILY FOR 3 DAYS. 09/27 completed Not Available Not Available Not Available famotidine 20 mg tablet TAKE 1 TABLET (20 MG) BY MOUTH TWO TIMES DAILY. 09/27 completed Not Available Not Available Not Available prednisolon e acetate 1 % eye drops,suspe nsion INSTILL 1 DROP INTO THE LEFT EYE THREE TIMES DAILY FOR ONE WEEK THEN DISCONTIN UE. 09/27 completed Not Available Not Available Not Available cephalexin 500 mg capsule TAKE ONE CAPSULE BY MOUTH THREE TIMES DAILY FOR 10 DAYS 02/27 completed Not Available Not Available Not Available lisinopril 10 mg tablet TAKE 1 TABLET (10 MG) BY MOUTH ONCE DAILY. active Not Available Not Available No t Available omeprazole 20 mg capsule,del ayed release TAKE 1 CAPSULE (20 MG) BY MOUTH ONCE DAILY BEFORE A MEAL. active Not Available Not Available No t Available hydroxyzine HCl 25 mg tablet TAKE 1 TABLET (25 MG) BY MOUTH AT BEDTIME IF NEEDED FOR ANXIETY (SLEEP). active Not Available Not Available No t Available mirtazapine 15 mg tablet TAKE 1 TABLET (15 MG) BY MOUTH AT BEDTIME. 02/27 completed Not Available Not Available Not Available fluticasone propionate 50 mcg/actuati on nasal spray,suspe nsion INSTIL 2 SPRAYS TO BOTH NOSTRILS ONCE DAILY. 09/27 completed Not Available Not Available Not Available buspirone 15 mg tablet TAKE 1/2 TABLET(7. 5MG) BY MOUTH DAILY FOR 1 WEEK,THEN INCREASE TO 1/2 TAB TWICE DAILY FOR 7 DAYS THEN 1 TABLET TWICE DAILY active Not Available Not Available No t Available escitalopra m 5 mg tablet TAKE 1 TABLET (5 MG) BY MOUTH ONCE DAILY. active Not Available Not Available No t Available mirtazapine 7.5 mg tablet TAKE 1 TABLET (7.5 MG) BY MOUTH AT BEDTIME. active Not Available Not Available No t Available doxepin 3 mg tablet TAKE ONE TABLET(3M G) BY MOUTH AT BEDTIME 02/27 completed Not Available Not Available Not Available Vitals Date Recorded Body height Body mass index (BMI) Body weight Provider Name and Address Organization Details Last Updated DateTime 08/22/2023 168.91 cm 26.2 kg/m2 58899.74 g SORIN Dodson - [place] [facility] 08/22/2023 10:42:08 Social History Question Answer Notes LastModified by Organizat ion Details LastModified Time Tobacco Smoking Status Former Smoker SORIN Mondragon [facility] 09/27/2022 12:24:21 What Is Your Level Of Alcohol Consumption? None Information not available 02/27/2023 What Is Your Level Of Caffeine Consumption? Moderate Information not available 02/27/2023 Are You Currently Employed? No Information not available 02/27/2023 When Did You Quit Smoking? 1-5yearssince lastcigarette [email or web address] Information not available 08/22/2023 Recreational Drug Use No Information not available 02/27/2023 What Was The Date Of Your Most Recent Tobacco Screening? 08/22/2023 [email or web address] Information not available 08/22/2023 What Is Your Relationship Status? Single Information not available 02/27/2023 Do You Use Any Illicit Or Recreational Drugs? No Information not available 02/27/2023 How Many Years Have You Smoked Tobacco? 30 Information not available 02/27/2023 Sex: Male Functional Status None recorded. Mental Status None recorded. Family History Nothing Reported. Medical History Condition Response Sexually Transmitted Infection N Diabetes N Bleeding Disorder N High Blood Pressure Y Kidney Stones N Cancer N Depression Y Lung Disease N High Cholesterol Y GERD/Acid Reflux Y Heart Disease N Immunizations Vaccine Type Date Status Provider Name and Address Organization Details Recorded Time COVID-19, mRNA, LNP-S, PF, 50 mcg/0.5 mL 06/12/2023 completed Pilar marcelo [facility] 08/22/2023 10:42:13 influenza, injectable, quadrivalent, preservative free 06/12/2023 completed Pilar marcelo [facility] 08/22/2023 10:42:13 zoster recombinant 03/26/2022 completed Jenny marcelo [facility] 07/03/2023 17:11:29 zoster recombinant 08/21/2022 dayana marcelo [facility] 07/03/2023 17:11:29 COVID-19, mRNA, LNP-S, PF, 100 mcg/0.5mL dose or 50 mcg/0.25mL dose 12/21/2020 completed Jenny marcelo [facility] 07/03/2023 17:11:29 COVID-19, mRNA, LNP-S, PF, 100 mcg/0.5mL dose or 50 mcg/0.25mL dose 01/17/2021 completed Jenny marcelo [facility] 07/03/2023 17:11:29 COVID-19, mRNA, LNP-S, PF, 100 mcg/0.5mL dose or 50 mcg/0.25mL dose 03/26/2022 completed Jenny marcelo [facility] 07/03/2023 17:11:29 COVID-19, mRNA, LNP-S, PF, 100 mcg/0.5mL dose or 50 mcg/0.25mL dose 08/17/2021 completed Jenny marcelo [facility] 07/03/2023 17:11:29 COVID-19, mRNA, LNP-S, bivalent, PF, 50 mcg/0.5 mL or 25mcg/0.25 mL dose 07/11/2022 completed Jenny marcelo [facility] 07/03/2023 17:11:29 Tdap 07/11/2019 completed Jenny marcelo [facility] 07/03/2023 17:11:29 Influenza, seasonal, injectable 06/14/2008 [facility] 17:11:29 Past Encounters Encounter ID Performer Location Encounter Start Date Encounter Closed Date Diagnosis/Indication [id number] Erma Alves [facility] [address] [place] [address] 08/08/2023 10:50:58 08/16/2023 11:25:54 Urethral stricture [id number] MD [facility] [address] [place] [address] 08/22/2023 10:36:02 09/04/2023 10:08:51 Urethral stricture Recurrent urinary tract infection Health Concerns Section Related Observation LastModified by Organization Detai ls LastModified Time None Recorded Concern Status LastModified by Organization Details LastModified Time None Recorded Payers Encounter Date Sequence Insurance Name Policy Number Policy Bruno Covered Member ID Bruno Member ID Guarantor Name 08/22/2023 1 [place] [id number] Jerry Ballesteros [id number] 6 Jerry Ballesteros Notes Date Note Type Note Provider Name and Address Organization Details Recorded Time 08/22/2023 text/html HPI Notes: Mr. Ballesteros is a very pleasant 67-year-old male with a history of imperforate anus, solitary kidney, and history of urethral stricture disease requiring multiple dilations. Patient states that his last dilation was about 12 [address] Dr[address] Prabhakar. Was seeing a Testing Machine Operator while living in [place] but it has been quite some time since he has seen a Urologist. No established nephrology care here in [place]. Current urination consists of: urinary frequency with some straining to void. Does experience any suprapubic pain, dysuria, or hematuria. Does feel as though his stream has weakened over the last few years but does feel as though he voids to completion. No issues with urinary tract infections. Not interested in any invasive intervention but would like to follow his renal function closely. 01/03/22 Here for follow up chronic congenital urethral stricture. Now s/p dilation. Doing well. Intermittent hematuria but improving. 09/27/2022: Here for follow up chronic congenital urethral stricture. Recently diagnosed with bahena-sensitive E coli infection. Overall reports that he feels like he is doing well. No recurrence of pain, does not feel like he needs to strain any more than usual. 02/27/2023: Here for follow up history of imperforate anus, solitary kidney, history of urethral stricture disease, and recurrent UTIs. Today reports he recently had another UTI which required 2 courses of antibiotics to clear. He has since started cranberry supplement. 08/22/23: Here for follow up history of imperforate anus, solitary kidney, history of urethral stricture disease, and recurrent UTIs. He completed a urocuff for my review which shows valsalva voiding but decent flow. Overall fells like he is doing quite well, no recent UTIs. Venkatesh Ontiveros MD [address], [place], [address], [place] [facility] [place] [facility] 08/22/2023 13:34:58
--- OUTSIDE RECORDS SUMMARY | 2023-10-01 11:15 | XMS_ITS | Data Portability ---
Author Name Unknown Address [address] [place] [address] Phone [phone] Organization [facility], [facility] Address [address] [place] [address] Care Team Providers Care Hospitality Associate Name Role Phone MARINE CANTRIL Primary Care Provider [phone] Assessment Encounter Date Assessment Date Assessment LastModified by Organization Details LastModified Time 09/27/2022 09/27/2022 67-year-old male with history of congenital imperforate anus, solitary kidney, and recurrent urethral stricture disease. Not available 09/27/2022 12:46:26 02/27/2023 02/27/2023 67-year-old male with history of congenital imperforate anus, solitary kidney, and recurrent urethral stricture disease. Of note a total of 20 minutes was spent: preparing to see the patient by reviewing records, images, and laboratory data; obtaining/revie wing separately obtained history; performing physical examination, counseling and educating patient/family/ caregiver; ordering appropriate medications, labs, imaging or procedures; documenting the clinical encounter; and coordination of care. Not available 02/27/2023 22:10:41 08/22/2023 08/22/2023 68-year-old male with history of congenital imperforate anus, solitary kidney, and recurrent urethral stricture disease. Not available 08/22/2023 08:17:02 Plan of Treatment Reminders Order Date Submit Date Provider Last Modified By Organization Details Last Modified Time Details Appointments None recorded. Lab urinalysis , dipstick 2022 023 [email or web address] [facility], [address], [place], [address], 15:08:08 urinalysis , dipstick 2022 023 [email or web address] [facility], [address], [place], [address], 12:14:01 Referral None recorded. Procedures None recorded. Surgeries None recorded. Imaging None recorded. Medication Orders None recorded. Patient TargetsNo targets recorded. Patient InstructionsNo instructions recorded. Reason for Referral None Reported. Results Created Date Observation Date Name Description Value Unit Range Abnormal Flag LastModifiedBy Organization Detail LastModifiedTime 09/27/1909/27/2022 urina lysis , dipst ick Sp [place]-Stat us 1.005 Not Available [facility] [address], [place], [address], 09/27/2022 12:12:58 09/27/19 23 09/27/2022 urina lysis , dipst ick pH-Status 6.0 Not Available [facility] [address], [place], [address], 09/27/2022 12:12:58 09/27/19 23 09/27/2022 urina lysis , dipst ick Nitrates-Sta tus negati ve Not Available [facility] [address], [place], [address], 09/27/2022 12:12:58 09/27/1909/27/2022 urina lysis , dipst ick Blood-Status Trace Not Available [facility] [address], [place], [address], 09/27/2022 12:12:58 09/27/19 23 09/27/2022 urina lysis , dipst ick Leuko-Status Negati ve Not Available [facility] [address], [place], [address], 09/27/2022 12:12:58 02/28/20 23 02/27/2023 urina lysis , dipst ick Color-Status Yellow Not Available [facility] [address], [place], [address], 02/27/2023 15:07:16 02/28/20 23 02/27/2023 urina lysis , dipst ick Clarity-Stat us Clear Not Available [facility] [address], [place], [address], 02/27/2023 15:07:16 02/28/20 23 02/27/2023 urina lysis , dipst ick Glucose-Stat us Negati ve Not Available [facility] [address], [place], [address], 02/27/2023 15:07:16 02/28/20 23 02/27/2023 urina lysis , dipst ick Nitrates-Sta tus negati ve Not Available [facility] [address], [place], [address], 02/27/2023 15:07:16 02/28/20 23 02/27/2023 urina lysis , dipst ick Blood-Status Negati ve Not Available [facility] [address], [place], [address], 02/27/2023 15:07:16 02/28/20 23 02/27/2023 urina lysis , dipst ick Leuko-Status Negati ve Not Available [facility] [address], [place], [address], 02/27/2023 15:07:16 12/22/19 22 12/20/2021 XR, urogr am, retro grade No observ ation record ed. Not Available 09/27/2022 12:45:22 10/02/19 09/27/2022 bladd er scan (PROC ) No observ ation record ed. Not Available 02/27/2023 22:09:27 03/01/20 23 02/27/2023 bladd er scan (PROC ) No observ ation record ed. BARCODE Not Available 03/01/2023 15:39:28 Result Notes None recorded. Procedures Surgical History Date Name Laterality Status Provider Name and Address Organization Details Recorded Time 3 Bladder Scan completed Pilar marcelo [facility] 08/22/2023 10:45:31 3 UroCuff completed Erma marcelo [facility] 08/08/2023 16:46:48 3 Bladder Scan completed Erma marcelo [facility] 08/08/2023 16:22:41 3 Bladder Scan completed Romie marcelo [facility] 02/27/2023 15:07:12 3 Bladder Scan completed Venkatesh Ontiveros MD [address] [place] [address],[address], [place], [address] 09/27/2022 12:46:00 0 colonoscopy completed Pilar marcelo [facility] 08/22/2023 10:42:53 Imaging Results Imaging Date Name Status LastModified by Organiz ation Details LastModified Time 12/20/2021 XR, urogram, retrograde completed [email or web address] Information not available 09/27/2022 12:45:22 09/27/2022 bladder scan (PROC) completed Information not available 02/27/2023 22:09:27 02/27/2023 bladder scan (PROC) completed BARCODE Information not available 03/01/2023 15:39:28 Procedure Notes None recorded. Medical Equipment None [...] and Address Organization Details Last Updated DateTime 09/27/2022 168.91 cm 24.6 kg/m2 79520.82 g Miriam marcelo [facility] 09/27/2022 12:18:06 Date Recorded Body height Body mass index (BMI) Body weight Provider Name and Address Organization Details Last Updated DateTime 02/27/2023 168.91 cm 24.6 kg/m2 90063.82 g Romie Santos [facility] 02/27/2023 15:03:45 Date Recorded Body height Body mass index (BMI) Body weight Provider Name and Address Organization Details Last Updated DateTime 08/22/2023 168.91 cm 26.2 kg/m2 [address] [facility] 08/22/2023 10:42:08 Social History Question Answer Notes LastModified by Organizat ion Details LastModified Time Tobacco Smoking Status Former Smoker Miriam marcelo [facility] 09/27/2022 12:24:21 What Is Your Level Of Alcohol Consumption? None Information not available 02/27/2023 What Is Your Level Of Caffeine Consumption? Moderate Information not available 02/27/2023 Are You Currently Employed? No Information not available 02/27/2023 When Did You Quit Smoking? 1-5yearssince lastcigarette Information not available 08/22/2023 Recreational Drug Use No Information not available 02/27/2023 What Was The Date Of Your Most Recent Tobacco Screening? 08/22/2023 Information not available 08/22/2023 What Is Your Relationship Status? Single Information not available 02/27/2023 Do You Use Any Illicit Or Recreational Drugs? No Information not available 02/27/2023 How Many Years Have You Smoked Tobacco? 30 Information not available 02/27/2023 Sex: Male Functional Status None recorded. Mental Status None recorded. Family History Nothing Reported. Medical History Condition Response High Blood Pressure Y Kidney Stones N Depression Y Lung Disease N GERD/Acid Reflux Y Sexually Transmitted Infection N Diabetes N Bleeding Disorder N Cancer N High Cholesterol Y Heart Disease N Immunizations Vaccine Type Date Status Provider Name and Address Organization Details Recorded Time COVID-19, mRNA, LNP-S, PF, 50 mcg/0.5 mL 06/12/2023 completed Pilar marcelo [facility] 08/22/2023 10:42:13 influenza, injectable, quadrivalent, preservative free 06/12/2023 completed Pilar marcelo [facility] 08/22/2023 10:42:13 zoster recombinant 03/26/2022 completed Jenny marcelo [facility] 07/03/2023 17:11:29 zoster recombinant 08/21/2022 completed Jenny marcelo [facility] 07/03/2023 17:11:29 COVID-19, mRNA, LNP-S, PF, 100 mcg/0.5mL dose or 50 mcg/0.25mL dose 12/21/2020 completed Jenny marcelo [facility] 07/03/2023 17:11:29 COVID-19, mRNA, LNP-S, PF, 100 mcg/0.5mL dose or 50 mcg/0.25mL dose 01/17/2021 completed Jenny marcelo [facility] 07/03/2023 17:11:29 COVID-19, mRNA, LNP-S, PF, 100 mcg/0.5mL dose or 50 mcg/0.25mL dose 03/26/2022 completed Jenny marcelo [facility] 07/03/2023 17:11:29 COVID-19, mRNA, LNP-S, PF, 100 mcg/0.5mL dose or 50 mcg/0.25mL dose 08/17/2021 completed Jenny marcelo [facility] 07/03/2023 17:11:29 COVID-19, mRNA, LNP-S, bivalent, PF, 50 mcg/0.5 mL or 25mcg/0.25 mL dose 07/11/2022 completed Jenny marcelo [facility] 07/03/2023 17:11:29 Tdap 07/11/2019 dayana marcelo [facility] 07/03/2023 17:11:29 Influenza, seasonal, injectable 06/14/2008 completed Jenny marcelo [facility] 07/03/2023 17:11:29 Past Encounters Encounter ID Performer Location Encounter Start Date Encounter Closed Date Diagnosis/Indication [id number] MD [facility] [address] [place] [address] 09/27/2022 11:56:38 10/01/2022 14:14:58 Urethral stricture Recurrent urinary tract infection [id number] MD [facility]ANDA [facility] [address] [place] [address] 02/27/2023 14:11:30 03/07/2023 08:28:19 Urethral stricture Recurrent urinary tract infection [id number] Erma [facility] [address] [place] [address] 08/08/2023 10:50:58 08/16/2023 11:25:54 Urethral stricture [id number] MD [facility] [address] [place] [address] 08/22/2023 10:36:02 09/04/2023 10:08:51 Urethral stricture Recurrent urinary tract infection Health Concerns Section Related Observation LastModified by Organization Detai ls LastModified Time None Recorded Concern Status LastModified by Organization Details LastModified Time None Recorded Advance Directives Directive None Recorded Payers Encounter Date Sequence Insurance Name Policy Number Policy Bruno Covered Member ID Bruno Member ID Guarantor Name 08/22/2023 1 MEDICARE [place]: [facility] Jerry Ballestreos [id number] 6 Jerry Ballesteros 08/08/2023 1 [place] [facility] Jerry Ballesteros [id number] 6 Jerry Ballesteros 02/27/2023 1 MEDICARE [place] [facility] Jerry Ballesteros [id number] 6 Jerry Ballesteros 09/27/2022 1 MEDICARE B-[place]: [facility] Jerry Ballesteros [id number] 6 Jerry Ballesteros Notes Date Note Type Note Provider Name and Address Organization Details Recorded Time 09/27/2022 text/html HPI Notes: Mr. Ballesteros is a very pleasant 67-year-old male with a history of imperforate anus, solitary kidney, and history of urethral stricture disease requiring multiple dilations. Patient states that his last dilation was about 12 [address] Prabhakar. Was seeing a Actuarial Director while living in [place] but it has been quite some time since he has seen a Urologist. No established nephrology care here in [place]. Current urination consists of: urinary frequency with [...] needs to strain any more than usual. Venkatesh Ontiveros MD [address] [place] [address],[address], [place], [address], [facility] 09/27/2022 12:46:39 02/27/2023 text/html HPI Notes: Mr. Ballesteros is a very pleasant 67-year-old male with a history of imperforate anus, solitary kidney, and history of urethral stricture disease requiring multiple dilations. Patient states that his last dilation was about [address] Prabhakar. Was seeing a Actuarial Director while living in [place] but it has been quite some time since he has seen a Urologist. No established nephrology care here in [place]. Current urination consists of: urinary frequency with [...] clear. He has since started cranberry supplement. Venkatesh Ontiveros MD [address] [place] [address],[address], [place], [address], [facility] - [place] [facility] 02/27/2023 22:10:59 08/22/2023 text/html HPI Notes: Mr. Ballesteros is a very pleasant 67-year-old male with a history of imperforate anus, solitary kidney, and history of urethral stricture disease requiring multiple dilations. Patient states that his last dilation was about [address] Prabhakar. Was seeing a Actuarial Director while living in [place] but it has been quite some time since he has seen a Urologist. No established nephrology care here in [place]. Current urination consists of: urinary frequency with [...] no recent UTIs. Venkatesh Ontiveros MD [address], [place], [address], [place] [facility] [place] [facility] 08/22/2023 13:34:58
--- OUTSIDE RECORDS SUMMARY | 2023-10-01 11:15 | XMS_ITS | Clinical Summary ---
Author Name Unknown Organization [facility] Address [place], [place] [address] Care Team Providers Care Shactor Helper Name Role Phone Natalie Juárez Aliya GIRON Primary Care Provider [phone] Lexy Kate Herrmann Unavailable [phone] Allergies No known active allergies Medications Medication Sig Dispensed Refills Start Date End Date Status MULTIVITAMIN TAB take 1 tablet by oral route once daily with food 0 04/15/2007 Active ASPIRIN 81 MG TAB, DELAYED RELEASE take 1 tablet (81 mg) by oral route once daily 0 04/15/2007 Active VITAMIN C 1,000 MG TAB 1 po qd 0 04/15/2007 Active CALCIUM 500 MG TAB 2 po qd 0 04/15/2007 Active cholecalciferol (Vitamin D) 1,000 unit capsule Take 1 Capsule (1,000 units) by mouth once daily. 0 06/22/2022 Active pravastatin (PravachoL) 40 mg tabletIndications:Mi xed hyperlipidemia Take 1 Tablet (40 mg) by mouth once daily. 90 Tablet 3 10/15/2022 Active amLODIPine (NORVASC) 5 mg tabletIndications:Es sential hypertension Take 1 Tablet (5 mg) by mouth once daily. 90 Tablet 3 01/23/2023 Active clonazePAM (KLONOPIN) 0.5 mg tabletIndications:Ge neralized anxiety disorder with panic attacks TAKE 1 TABLET (0.5 MG) BY MOUTH ONCE DAILY and second dose 0.5mg (1 tab) IF NEEDED FOR ANXIETY. TO LAST AT LEAST 30 DAYS. 45 Tablet 2 08/06/2023 Active loperamide (IMODIUM) 2 mg capsuleIndications:C hronic diarrhea Take 2 capsules (4mg) orally with 1st loose stool, then 1 capsule (2mg) with other loose stools. Max 16 mg in 24 hrs. 270 Capsule 1 08/21/2023 Active mirtazapine (REMERON) 7.5 mg tabletIndications:In somnia, idiopathic Take 1 Tablet (7.5 mg) by mouth at bedtime. 90 Tablet 1 09/24/2023 Active mirtazapine (REMERON) 7.5 mg tabletIndications:In somnia, idiopathic Take 1 Tablet (7.5 mg) by mouth at bedtime. 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 Chronic eczema 04/17/2021 Hyperlipidemia, unspecified 04/17/2021 Insomnia, idiopathic 04/17/2021 Depression, major, single episode, mild 03/01/20 21 Generalized anxiety disorder 03/01/2021 H/O urethral stricture 03/01/2021 Overview: Reports history of requiring urethral dilation Onychomycosis 03/01/2021 Essential hypertension 02/18/2017 Benign hypertensive renal disease 03/26/2014 Stage 3 chronic kidney disease 03/26/2014 Chronic diarrhea 09/09/2008 Overview: Born with Imperforate Anus: Lifelong Issues with Stool Frequency/Control Hypospadias 09/09/2008 Hyperlipidemia 04/15/2007 Resolved Problems Problem Noted Date Diagnosed Date Resolved Date Achilles bursitis or tendinitis 03/14/2009 03/01/2021 Special screening for malign ant neoplasm of prostate 03/09/2008 03/01/2021 Routine general medical exam ination at a health care facility 04/15/2007 03/01/2021 Overview: Neg High Level Stress Test 01/22/2005 Encounters Date Type Department Care Team Description 09/24/2023 12:30 PM REIMBURSEMENT LIAISON Phone Office Visit [facility] [address] [place] [address] Kate Pugh DO Medication Management; Phone Visit ([place]) 09/12/2023 9:00 AM REIMBURSEMENT LIAISON Orders Only [facility] [address] [facility] [place] [address] Lab, [place] Lab 09/12/2023 Travel 08/21/2023 8:55 AM REIMBURSEMENT LIAISON Office Visit [facility] [address] [place] [address] Natalie Juárez, Follow Up (Would like B12 rechecked, blood panel - has had med changes and generally feels off); Ear Problem (Pt continues to have ringing in the ears, would like ears looked at ) 08/21/2023 Travel 08/15/2023 Telephone [facility] [address] [place] [phone] Kate Pugh DO increased symptoms (Not sleeping/) 08/13/2023 Telephone [facility] [address] [place] [phone] Kate Pugh DO Questions (Sleep ) 08/06/2023 1:30 PM REIMBURSEMENT LIAISON Phone Office Visit [facility] [address] [place] [phone] Kate Pugh DO Phone Visit 07/29/2023 Refill [facility] [address] [place] [address] Natalie Juárez, Refill Request (Loperamide) 07/29/2023 Telephone [facility] [address] [place] [phone] Kate Pugh DO Questions 07/09/2023 2:15 PM REIMBURSEMENT LIAISON Office Visit [facility] [address] [facility] [place] [address] Sanya Rios, DPM Follow Up (Left ingrown toenail and left bunion changes) 07/09/2023 Travel 07/01/2023 2:00 PM CDT Phone Office Visit [facility] [address] [place] [address] Kate Pugh, Medication Management; Phone Visit ([place]) 07/01/2023 Telephone [facility] [address] [place] [address] Kate Pugh, Medication Management from Last 3 Months Immunizations Name Administration Dates Next Due COVID-19 Vaccine Spikevax (M oderna 50mcg/0.5mL) 12YO+ [id number] Formula PF 06/12/2023 COVID-19 vaccine (Moderna 100mcg/0.5mL) PF, MDV 03/26/2022 Covid-19 Vaccine (Unspecified) 01/17/2021,2020 Hepatitis B (Adult) 12/18/2002 Influenza, IIV3 (Age >=3 years) 06/14/2008 Influenza, IIV4 06/12/2023 Tdap 07/11/2019,04/16/2006 Tuberculin (PPD) 09/02/2006 Zoster (Shingrix-RZV, recombinant) 08/21/2022, Family History Medical History Relation Name Comments Heart Disease Brother 1 Yahir Other Brother 1 Yahir from septi c shock Sleep apnea Brother 1 Yahir Hyperlipidemia Father Hypertension Mother Osteoporosis Mother Other Mother Dementia Heart Disease Other 1 grandparents Stroke Other 2 grandparents Other Other 3 migraines-sibli ng Cancer-breast No Family History Cancer-ovarian No Family History Relation Name Status Comments Brother 1 Yahir Brother 2 Terrence Alive Father Mother Other 1 Other 2 Other 3 Social History Tobacco Use Types Packs/Day Years Used Date Smoking Tobacco: Former Cigars Smokeless Tobacco: Never Tobacco Cessation:Counseling Given: Yes Comments:very occasional cigar Alcohol Use Standard Drinks/Week Comments Not Currently 0 (1 standard drink = 0.6 oz pur e alcohol) PHQ-2 Answer Date Recorded PHQ-2 TOTAL SCORE 1 08/06/2023 Social Connections Answer Date Recorded Frequency of Communication with Friends and Fami ly Not on file 12/18/2022 Financial Resource Strain Answer Date R ecorded Difficulty of Paying Living Expenses 3 12/15/2021 Difficulty of Paying Living Expenses Not on file 12/15/2021 Food Insecurity Answer Date Recorded Worried About Running Out of Food in the Last Ye ar 1 12/15/2021 Transportation Needs Answer Date Record ed Lack of Transportation (Medical) 1 12/15/2021 Housing Stability Answer Date Recorded Unable to Pay for Housing in the Last Year 1 12/15/2021 Sex and Gender Information Value Date Recorded Sex Assigned at Not on file Gender Identity Not on file Sexual Orientation Not on file Obstetrics History Last Filed Vital Signs Vital Sign Reading Time Taken Comments Blood Pressure 103/68 08/21/2023 8:54 AM REIMBURSEMENT LIAISON Pulse 62 08/21/2023 8:54 AM REIMBURSEMENT LIAISON Temperature 36.7 ??C (98.1 ??F) 01/14/2023 9:46 AM CD T Respiratory Rate 18 01/14/2023 9:46 AM CDT Oxygen Saturation 96% 08/21/2023 8:54 AM REIMBURSEMENT LIAISON Inhaled Oxygen Concentration - - Weight 74.8 kg (164 lb 12.8 oz) 08/21/2023 8:54 AM REIMBURSEMENT LIAISON Height 170.7 cm (5' 7.21) 01/14/2023 9:46 AM CD T Body Mass Index 25.65 01/14/2023 9:46 AM CDT Plan of Treatment Upcoming Encounters Date Type Department Care Team (Late st Contact Info) Description 11/06/2023 1:00 PM REIMBURSEMENT LIAISON Phone Office Visit [facility] [address] [facility] [address] [place] [phone] Kate Pugh DO [address] [facility] [address] [place] [address] Health Maintenance Due Date Last Done Comments Pneumococcal series for age 65+ (1 of 1 - PCV) 2022 Medicare Wellness for age 65+ 01/08/2024 01/08/2023, 01/02/2022 BMI (ht and wt on same day) for age 18+ 01/15/2024 01/14/2023, 01/08/2023, 12/20/2022, Additional history exists Depression screening for age 12+ 08/06/2024 08/06/2023, 02/04/2023, 01/31/2023, Additional history exists Lipids for age 45-75 06/22/2027 06/22/2022, 01/20/2020 (Completed outside of [facility]), 03/03/2010, Additional history exists Tetanus booster 07/11/2029 07/11/2019, 04/16/2006 Colonoscopy through age 75 03/03/203003/03 (Completed outside of [facility]) Tdap Completed 07/11/2019, 04/16/2006 Hepatitis C screening for ag e 18-79 Completed 01/02/2022 Zoster (shingles) series for age 50+ Completed 08/21/2022, 03/26/2022 AAA screening age 65-74 Completed 09/24/2022 COVID-19 vaccine series Completed 06/12/20, 07/11/2022, 03/26/2022, Additional history exists Influenza for age 65+ Completed 06/12/2023, 008 Procedures Procedure Name Priority Date/Time Associated Diagnosis Comments POTASSIUM Routine 09/12/2023 8:50 AM REIMBURSEMENT LIAISON Hypokalemia BASIC METABOLIC PANEL Routine 08/21/2023 9:36 AM REIMBURSEMENT LIAISON Stage 3a chronic kidney disease (HC) VITAMIN B12 Routine 08/21/2023 9:36 AM REIMBURSEMENT LIAISON History of anemia due to vitamin B12 deficiency from Last 3 Months Results * POTASSIUM (09/12/2023 8:50 AM REIMBURSEMENT LIAISON) POTASSIUM 3.9 3.5 - 5.1 mmol/L 09/12/2023 4:36 PM REIMBURSEMENT LIAISON [facility] Cardiovascular [employer] [facility] Blood BLOOD SPECIMEN / Unknown Venipuncture / Unknown 09/12/2023 8:50 AM REIMBURSEMENT LIAISON 09/12/2023 8:51 AM REIMBURSEMENT LIAISON Natalie Juárez DO CHEMISTRY [facility] [address] [place] [address], [place] * VITAMIN B12 (08/21/2023 9:36 AM [facility]) VITAMIN B12 921 232 - 1,245 pg/mL 08/21/2023 6:[address] [facility] Blood BLOOD SPECIMEN / Unknown Venipuncture / Unknown 08/21/2023 9:36 AM REIMBURSEMENT LIAISON 08/21/2023 9:36 AM [facility] Narrative [facility] - 08/21/2023 6:14 PM [facility] Biotin supplements may cause clinically significant interference for this test assay. ??If interference is suspected, it is strongly recommended that biotin is discontinued for at least one week prior to retesting. Natalie Juárez DO CHEMISTRY [facility] [address] [place] [address], * (ABNORMAL) BASIC METABOLIC PANEL (08/21/2023 9:36 AM [facility]) SODIUM 138 136 - 145 mmol/L 08/21/2023 5:36 PM [facility] POTASSIUM 4.7 3.5 - 5.1 mmol/L 08/21/2023 5:36 PM [facility] CHLORIDE 103 98 - 107 mmol/L 08/21/2023 5:36 PM [facility] CO2,TOTAL 23 22 - 29 mmol/L 08/21/2023 5:36 PM [facility] ANION GAP 12 5 - 18 08/21/2023 5:36 PM [facility] GLUCOSE 86 70 - 99 mg/dL 08/21/2023 5:36 PM [facility] CALCIUM 9.1 8.8 - 10.2 mg/dL 08/21/2023 5:36 PM [facility] BUN 24(H) 8 - 23 mg/dL 08/21/2023 5:36 PM [facility] CREATININE 1.57(H) 0.70 - 1.20 mg/dL 08/21/2023 5:36 PM REIMBURSEMENT LIAISON [facility] BUN/CREAT RATIO 15 10 - 20 3 5:36 PM REIMBURSEMENT LIAISON [facility] eGFR 48(L) >90 mL/min/1.7 3m2 08/21/2023 5:36 PM REIMBURSEMENT LIAISON [facility] Comment:As of 2021, eG FR is calculated by the CKD-EPI creatinine equation without race adjustment. ??eGFR can be influenced by muscle mass, exercise, and diet. ??The reported eGFR is an estimation only and is only applicable if the renal function is stable. Blood BLOOD SPECIMEN / Unknown Venipuncture / Unknown 08/21/2023 9:36 AM REIMBURSEMENT LIAISON 08/21/2023 9:36 AM REIMBURSEMENT LIAISON Natalie Juárez DO CHEMISTRY [facility] [address] [place] [address], from Last 3 Months Care Teams Shactor Helper Relationship Specialty Start Date End Date Natalie Juárez DO [address] [place] [address] PCP - General Family Practice 03/01/21 Kate Puhg DO [address] [facility] [address] [place] [address] Psychiatry 02/04/23
--- OUTSIDE RECORDS SUMMARY | 2023-10-01 11:16 | XMS_ITS | Continuity of Care Document ---
Author Name Unknown Address [address] [place] [address] Phone [phone] Organization [facility] Address [address] [place] [address] Care Team Providers Care Bushing Press Operator Name Role Phone [facility] Primary Care Provider Assessment No assessment recorded. Plan of Treatment Reminders Order Date Submit [...] Time 3 Bladder Scan completed Pilar marcelo [facility] 08/22/2023 10:45:31 3 UroCuff completed Erma marcelo [facility] 08/08/2023 16:46:48 3 Bladder Scan completed Erma marcelo [facility] 08/08/2023 16:22:41 3 Bladder Scan completed Romie marcelo [facility] 02/27/2023 15:07:12 3 Bladder Scan completed Venkatesh Ontiveros MD [address] [place] [address],[address], [place], [address], [facility] 09/27/2022 12:46:00 0 colonoscopy completed Pilar marcelo [facility] 08/22/2023 10:42:53 Imaging Results [...] Not Available Not Available Not Available Vitals None Recorded Social History Question Answer Notes LastModified by Organizat ion Details LastModified Time Tobacco Smoking Status Former Smoker Miriam marcelo [place] - [facility] 09/27/2022 12:24:21 What Is Your Level [...] Of Your Most Recent Tobacco Screening? 08/22/2023 [email or web address] Information not available 08/22/2023 What Is Your [...] 50 mcg/0.5 mL 06/12/2023 completed Pilar marcelo [facility] 08/22/2023 10:42:13 influenza, injectable, quadrivalent, preservative free 06/12/2023 completed Pilar marcelo [facility] 08/22/2023 10:42:13 zoster recombinant 03/26/2022 [facility]23 17:11:29 [facility]oster recombinant [facility]2022 [facility] 17:11:29 COVID-19, mRNA, LNP-S, PF, 100 mcg/0.5mL dose or 50 mcg/0.25mL dose 12/21/2020 [facility]2023 17:11:29 COVID-19, mRNA, LNP-S, PF, 100 mcg/0.5mL dose or 50 mcg/0.25mL dose 01/17/2021 [facility]/2023 17:11:29 COVID-19, mRNA, LNP-S, PF, 100 mcg/0.5mL dose or 50 mcg/0.25mL dose 03/26/2022 [facility]/03/2023 17:11:29 COVID-19, mRNA, LNP-S, PF, 100 mcg/0.5mL dose or 50 mcg/0.25mL dose 08/17/2021 completed Jenny marcelo [facility] 07/03/2023 17:11:29 COVID-19, mRNA, LNP-S, bivalent, PF, 50 mcg/0.5 mL or 25mcg/0.25 mL dose 07/11/2022 completed Jenny marcelo [facility] 07/03/2023 17:11:29 Tdap 07/11/2019 completed Jenny marcelo [facility] 07/03/2023 17:11:29 Influenza, seasonal, injectable 06/14/2008 completed Jenny marcelo [facility] 07/03/2023 17:11:29 Past Encounters Encounter ID Performer Location Encounter Start Date Encounter Closed Date Diagnosis/Indication [id number] Erma Alves [facility] [address] [place] [address] 08/08/2023 10:50:58 08/16/2023 11:25:54 Urethral stricture Health Concerns Section Related Observation LastModified by Organization Detai ls LastModified Time None Recorded Concern Status LastModified by Organization Details LastModified Time None Recorded Payers Encounter Date Sequence Insurance Name Policy Number Policy Bruno Covered Member ID Bruno Member ID Guarantor Name 08/08/2023 1 [place]ICARE [place]: [employer] Jerry Ballesteros [id number] Jerry Ballesteros Notes None Recorded
[2023-10-01 11:28] LABS: RBC Urine 0-2 (0-2); Squamous Epithelial Cell Urine Few (None-Few); WBC Urine 0-2 (0-5)
== END 2023-10-01 11:56 | disposition home or self-care (01) ==
PROVIDERS: Emergency Provider Emergency Medicine Emergency Medical Services; PCP Family Medicine
DX: K21.00 Gastro-esophageal reflux disease with esophagitis, without bleeding (principal)
CPT/HCPCS: 74018; 81001; 99284

== ENCOUNTER 2023-11-07 12:28 | Emergency (ER) | payer MEDICARE, OTHER, SELFPAY ==
[2023-11-07 12:40] VITALS: BP 146/93; PULSE 74; RESP 18; TEMP 36.6; O2SAT 97; BMI 26.6
--- NOTE | 2023-11-07 12:57 | XR_ITS ---
Patient: TRINA HARMAN Facility:?[facility] Patient ID:?[id number] Site Patient ID:?[id number]. Site :?1955 Study:?XRay-Pelvis 1 VIEW-11/07/2023 1:11:52 PM Ordering Physician:PLOY Final Report: Indication: RT HAMSTRING INJURY Technique: Single frontal view of the pelvis Comparison: None Findings/impression : No acute fracture or malalignment. Minimal spondylitic changes of the visualized lower lumbar spine. No significant degenerative changes of the bilateral sacroiliac or femoroacetabular joints. No suspicious osseous lesions. The soft tissues are unremarkable. Impression: Dictated by Bryce Cui MD @ 11/07/2023 1:21:19 PM Signed by:?Bryce Cui MD @11/07/2023 1:21:19 PM (Electronic Signature)
--- NOTE | 2023-11-07 13:30 | ED.GENADULT ---
HPI - General Adult General Date Seen: 11/07/23 Chief complaint: Hip Injury/Pain Stated complaint: Lower R back/leg pain, heard a pop Time Seen by Provider: 11/07/23 12:51 Source: patient and RN notes reviewed Mode of arrival: ambulatory Limitations: no limitations History of Present Illness HPI narrative: Patient is a 68-year-old man who presents for evaluation of a right hamstring pull. He says he was loading a box in the back of his car and kind of kicked his right leg back to stabilize and protect his back. He felt a popping sensation in the hamstring and had a little bit of pain initially although says he says now it just feels tight. He has not noted any bruising or swelling. He is ambulatory without difficulty. He wanted to make sure that he had not dislocated anything or done any significant damage. Related Data Home Medications Medication Instructions Recorded Confirmed clonazepam 0.5 mg tablet 0.5 mg PO DAILY 12/02/22 11/07/23 mirtazapine 7.5 mg tablet 7.5 mg PO QPM 12/02/22 11/07/23 pravastatin 40 mg tablet 40 mg PO DAILY 12/02/22 11/07/23 amlodipine 5 mg tablet 5 mg PO DAILY 03/11/23 11/07/23 aspirin 81 mg tablet,delayed 81 mg PO DAILY 09/06/23 11/07/23 release (Adult Aspirin Regimen) Previous Rx's Medication Instructions Recorded pantoprazole 20 mg tablet,delayed 20 mg PO DAILY #20 tabs 10/01/23 release (Protonix) Allergies Allergy/AdvReac Type Severity Reaction Status Date / Time No Known Drug Allergies Allergy Verified 11/07/23 12:45 Review of Systems Status of ROS: Reports: 6 or more systems reviewed and unremarkable except as noted in History and below [facility] Social History Smoking Status: Never smoker Do you use any of these nicotine containing products: None How often do you have a drink containing alcohol: never How often do you have six or more drinks on one occasion: Never AUDIT-C Alcohol total score: 0 Non-prescribed substance use: denies use service: No Exam Narrative: Exam Narrative: Vital signs reviewed In general, alert, well-appearing man. Extremities: Examination of the right hip and gluteal area shows no bruising swelling or deformity. Nontender to palpation throughout. Specifically, there is no tenderness at the insertion of the hamstring, no defect in the muscle belly, no fluctuance or bruising. Distal CMS is normal. Skin: Warm dry well perfused. Const: Vital Signs, click to edit/add: Vital Signs - 24 hr 11/07/23 12:40 Temperature 97.9 F Pulse Rate [Pulse Oximeter] 74 Respiratory Rate 18 Blood Pressure [Ri ght Upper Arm] 146/93 H Pulse Oximetry 97 Oxygen Delivery Me thod Room Air Documenting provider has reviewed patient's vital signs: yes Course Course ED Course: I ordered an x-ray of the pelvis to reassure him that there was no evidence of any bony injury or dislocation. This looks normal by my review, negative per Radiology. Discussed with him I think he probably has a little bit of minor hamstring injury, but I would expect this would improve with conservative measures such as ice, heat, ibuprofen and/or Tylenol. Primary care follow-up if not improving gradually over the next week or so. Vital Signs Vital signs: Initial Vital Signs Temperature 97.9 F 11/07/23 12:40 Temperature Source Temporal Artery Scan 11/07/23 12:40 Pulse Rate 74 11/07/23 12:40 Respiratory Rate 18 11/07/23 12:40 Blood Pressure 146/93 H 11/07/23 12:40 Blood Pressure Mean 110 H 11/07/23 12:40 Blood Pressure Position Sitting 11/07/23 12:40 Pulse Oximetry 97 11/07/23 12:40 Oxygen Delivery Method Room Air 11/07/23 12:40 Vital Signs Temperature 97.9 F 11/07/23 12:40 Pulse Rate 74 11/07/23 12:40 Respiratory Rate 18 11/07/23 12:40 Blood Pressure 146/93 H 11/07/23 12:40 Pulse Oximetry 97 11/07/23 12:40 Oxygen Delivery Method Room Air 11/07/23 12:40 Temperature 97.9 F 11/07/23 12:40 Pulse Rate 74 11/07/23 12:40 Respiratory Rate 18 11/07/23 12:40 Blood Pressure 146/93 H 11/07/23 12:40 Pulse Oximetry 97 11/07/23 12:40 Oxygen Delivery Method Room Air 11/07/23 12:40 Discharge Plan Discharge Clinical Impression: Right hamstring injury Patient Disposition: Home, Self-Care Condition: Stable Instructions: Hamstring Injury (ED) Additional Instructions: Ice and/or heat as needed. Ibuprofen or Tylenol. If not improving with conservative measures over the next week, follow-up with primary care. Prescriptions: No Action pravastatin 40 mg tablet 40 mg PO DAILY clonazepam 0.5 mg tablet 0.5 mg PO DAILY mirtazapine 7.5 mg tablet 7.5 mg PO QPM aspirin [Adult Aspirin Regimen] 81 mg tablet,delayed release (DR/EC) 81 mg PO DAILY pantoprazole [Protonix] 20 mg tablet,delayed release (DR/EC) 20 mg PO DAILY Qty: 20 2RF amlodipine 5 mg tablet 5 mg PO DAILY Patient Comments: TAKE 1 TABLET (5 MG) BY MOUTH ONCE DAILY. Follow Up/Referrals: Natalie Juárez DO [Primary Care Provider] - Stand Alone Forms: MyHealth Info Instructions
== END 2023-11-07 13:34 | disposition home or self-care (01) ==
PROVIDERS: Emergency Provider Emergency Medicine; PCP Family Medicine
DX: S76.301A Unspecified injury of muscle, fascia and tendon of the posterior muscle group at thigh level, right thigh, initial encounter (principal); X50.1XXA Overexertion from prolonged static or awkward postures, initial encounter
CPT/HCPCS: 72170; 99283; 99284

== ENCOUNTER 2023-12-18 08:32 | Emergency (ER) | payer MEDICARE, OTHER, SELFPAY ==
[2023-12-18 08:36] VITALS: BP 118/86; PULSE 70; RESP 18; TEMP 36.8; O2SAT 99; BMI 25.8
--- NOTE | 2023-12-18 08:48 | ED.GENADULT ---
HPI - General Adult General Time Seen by Provider: 08:48 Date Seen: 12/18/23 Chief complaint: Cough Stated complaint: feeling ill Time Seen by Provider: 12/18/23 08:47 Source: patient and RN notes reviewed Mode of arrival: ambulatory Limitations: no limitations History of Present Illness HPI narrative: this 68-year-old male is coming in with concern of possible COVID. His aches this morning tasted metallic, he has never had that. It made him immediately think of COVID. He states he has 1 kidney and he has had all of his COVID shots. He does live in the [address] [facility] apartments. He states he typically tries to take the stairs but he has had a hamstring issue is been having use the elevator. He is has otherwise had no travel, no known contact to COVID but he is in an apartment situation. When asked if he has had any fevers, he states he sometimes feels warm at night but he is still sleeping with a winter blanket. He describes some chronic reflux, states he tried of medicine but I gave him diarrhea, he admits that he should probably follow-up for this. He does sleep with a couple pillows to try to remedy this. He talks about some constipation that he finally is going into the bathroom again. He also talks about urinary tract infection but he is having no pain, no urinary symptoms. He did also talk about having a mouth guard, he keeps it clean but wonders if he has to have it sterilized again at the dentist. He notes that he had some lower gum irritation about 5 days ago this week. He states he did cough a couple times overnight. When asked what his major concern is, he does state that he is concerned he might have COVID. He also wants know how his lungs sound, could there be any pneumonia. He is having no chest pain, no pain anywhere, no shortness of breath. Related Data Home Medications Medication Instructions Recorded Confirmed clonazepam 0.5 mg tablet 0.5 mg PO DAILY 12/02/22 12/18/23 mirtazapine 7.5 mg tablet 7.5 mg PO QPM 12/02/22 12/18/23 pravastatin 40 mg tablet 40 mg PO DAILY 12/02/22 12/18/23 amlodipine 5 mg tablet 5 mg PO DAILY 03/11/23 12/18/23 aspirin 81 mg tablet,delayed 81 mg PO DAILY 09/06/23 12/18/23 release (Adult Aspirin Regimen) Previous Rx's Medication Instructions Recorded pantoprazole 20 mg tablet,delayed 20 mg PO DAILY #20 tabs 10/01/23 release (Protonix) Allergies Allergy/AdvReac Type Severity Reaction Status Date / Time No Known Drug Allergies Allergy Verified 12/18/23 08:36 Review of Systems Status of ROS: Reports: 6 or more systems reviewed and unremarkable except as noted in History and below [facility] Social History Smoking Status: Never smoker Do you use any of these nicotine containing products: None How often do you have a drink containing alcohol: never How often do you have six or more drinks on one occasion: Never AUDIT-C Alcohol total score: 0 Non-prescribed substance use: denies use service: No Exam Const: Vital Signs, click to edit/add: Vital Signs - 24 hr 12/18/23 08:36 Temperature 98.2 F Pulse Rate [Pulse Oximeter] 70 Respiratory Rate 18 Blood Pressure [Ri ght Upper Arm] 118/86 Pulse Oximetry 99 Oxygen Delivery Me thod Room Air Patient is alert, interactive, no apparent distress. He is seen in exam room 1. He is able to get up from the chair, moves over to the bed independently on his own. Pupils equal round reactive to light, sclera clear. TMs canals normal, no evidence of infection. Anterior nares appear normal. Symmetrical facial function, speech is normal, no hoarseness. Oropharynx with normal mucosa, no exudates or erythema. His gums and dentition appear normal, do not appreciate any abnormality. Posterior pharynx normal, good oral airway, no exudates or erythema in the pharynx. Neck is supple, no adenopathy or masses. Lungs are clear, good air entry, no wheezing or crackles, no tachypnea. CV regular rate and rhythm, no murmur, normal S1-S2. Documenting provider has reviewed patient's vital signs: yes Course Course ED Course: This is a well appearing non hypoxic, afebrile and hemodynamically stable patient. Nursing staff did collect the viral triple swab which I have reviewed with patient will probably take at least 90 minutes to come back. Discussed imaging, we can check a portable chest x-ray just to look at the lung architecture. I do not think he needs any other workup at this time. Reevaluation(s) Time of Reevaluation #1: 10:16 Reevaluation #1: Reviewed with patient that his chest x-ray and triple viral swab were negative. We discussed that he might possibly have an early viral infection. He is to observe his symptoms. He wondered when antibiotics would be given. I reviewed with him certainly not at this point in it would depend how long he had symptoms, clinical signs that he was having. I did recommend that he follow up with his primary in clinic within the next week or return here if he is worsening. He is certainly stable for discharge to home without further interventions at this time. Vital Signs Vital signs: Initial Vital Signs Temperature 98.2 F 12/18/23 08:36 Temperature Source Temporal Artery Scan 12/18/23 08:36 Pulse Rate 70 12/18/23 08:36 Respiratory Rate 18 12/18/23 08:36 Blood Pressure 118/86 12/18/23 08:36 Blood Pressure Mean 96 12/18/23 08:36 Blood Pressure Position Sitting 12/18/23 08:36 Pulse Oximetry 99 12/18/23 08:36 Oxygen Delivery Method Room Air 12/18/23 08:36 Vital Signs Temperature 98.2 F 12/18/23 08:36 Pulse Rate 70 12/18/23 08:36 Respiratory Rate 18 12/18/23 08:36 Blood Pressure 118/86 12/18/23 08:36 Pulse Oximetry 99 12/18/23 08:36 Oxygen Delivery Method Room Air 12/18/23 08:36 Temperature 98.2 F 12/18/23 08:36 Pulse Rate 70 12/18/23 08:36 Respiratory Rate 18 12/18/23 08:36 Blood Pressure 118/86 12/18/23 08:36 Pulse Oximetry 99 12/18/23 08:36 Oxygen Delivery Method Room Air 12/18/23 08:36 Medical Decision Making Lab Data Lab results reviewed: Yes I reviewed the patient's lab results Labs: Lab Results 12/18/23 Range/Units 08:38 SARS-CoV-2 (PCR) Negative SARS-CoV-2 (Negative) Influenza Type A (PCR) Negative PCR FLU A (Negative) Influenza Type B (PCR) Negative PCR FLU B (Negative) RSV (PCR) Negative PCR RSV (Negative) Imaging Data Chest x-ray: Attestation: I have reviewed the pertinent imaging results. My impression: I see no evidence of any acute infiltrate or pathology on my preliminary review of this portable chest x-ray, wait radiology over-read. Radiologist's impression: Patient: TRINA HARMAN Facility:?[facility] Patient ID:?[id number] Site Patient ID:?[id number]. Site :?[id number] Study:?XRay Chest PORTABLE-12/18/2023 9:52:46 AM Ordering Physician:?DR. ROGERS Final Report: INDICATION: Cough COMPARISON: September 06, 2023 TECHNIQUE: Portable AP sitting single-view study FINDINGS: TUBES AND LINES: None. HEART AND MEDIASTINUM: The heart size is normal. The mediastinal contour appears normal for patient age. LUNGS AND PLEURAL SPACES: The lungs appear normal.The pleural spaces are unremarkable. OSSEOUS STRUCTURES: Age-appropriate appearance. No acute focal finding. IMPRESSION: No evidence of active pulmonary disease. Dictated by Gilbert Tdiwell MD @ 12/18/2023 10:07:15 AM (Electronic Signature) Discharge Plan Discharge Clinical Impression: Taste sense altered Patient Disposition: Home, Self-Care Condition: Stable Instructions: Upper Respiratory Infection (ED) Additional Instructions: It is possible that this might be early upper respiratory symptoms developing. Continue to monitor your symptoms. Would consider retesting for COVID if the alteration in taste continues, would recommend COVID testing between day 3-5 if ongoing symptoms. Do recommend follow-up in your clinic with your primary care provider within the next week, sooner if issues. Certainly if you feel you are becoming more ill, develops any shortness of breath, difficulty breathing or fever so stated with her symptoms, please return to the ER for further evaluation. Activity Level: Activity as Tolerated Prescriptions: No Action pravastatin 40 mg tablet 40 mg PO DAILY clonazepam 0.5 mg tablet 0.5 mg PO DAILY mirtazapine 7.5 mg tablet 7.5 mg PO QPM aspirin [Adult Aspirin Regimen] 81 mg tablet,delayed release (DR/EC) 81 mg PO DAILY pantoprazole [Protonix] 20 mg tablet,delayed release (DR/EC) 20 mg PO DAILY Qty: 20 2RF amlodipine 5 mg tablet 5 mg PO DAILY Patient Comments: TAKE 1 TABLET (5 MG) BY MOUTH ONCE DAILY. Follow Up/Referrals: Natalie Juárez DO [Primary Care Provider] - Stand Alone Forms: [employer] Info Instructions
--- NOTE | 2023-12-18 08:55 | XR_ITS ---
Patient: TRINA HARMAN Facility:?[facility] Patient ID:?[id number] Site Patient ID:?[id number]. Site :?[id number] Study:?XRay-Chest PORTABLE-12/18/2023 9:52:46 AM Ordering Physician:?DR. ROGERS Final Report: INDICATION: Cough COMPARISON: September 06, 2023 TECHNIQUE: Portable AP sitting single-view study FINDINGS: TUBES AND LINES: None. HEART AND MEDIASTINUM: The heart size is normal. The mediastinal contour appears normal for patient age. LUNGS AND PLEURAL SPACES: The lungs appear normal.The pleural spaces are unremarkable. OSSEOUS STRUCTURES: Age-appropriate appearance. No acute focal finding. IMPRESSION: No evidence of active pulmonary disease. Dictated by Gilbert Tidwell MD @ 12/18/2023 10:07:15 AM Signed by:?Gilbert Tidwell MD @12/18/2023 10:07:15 AM (Electronic Signature)
--- OUTSIDE RECORDS SUMMARY | 2023-12-18 09:12 | XMS_ITS | Clinical Summary ---
Author Name Unknown Organization [facility] Address [place], [place] [address] Care Team Providers Care Tester Regulator Name Role Phone Natalie Juárez Primary Care Provider [phone] LexyKate Unavailable Allergies No known active allergies Medications Medication [...] by mouth once daily. 0 06/22/2022 Active amLODIPine (NORVASC) 5 mg tabletIndications:Ess ential hypertension Take 1 Tablet (5 mg) by mouth once daily. 90 Tablet 3 01/23/2023 Active loperamide (IMODIUM) 2 mg capsuleIndications:Ch ronic diarrhea Take 2 capsules (4mg) orally with 1st loose stool, then 1 capsule (2mg) with other loose stools. Max 16 mg in 24 hrs. 270 Capsule 1 08/21/2023 Active mirtazapine (REMERON) 7.5 mg tabletIndications:Ins omnia, idiopathic Take 1 Tablet (7.5 mg) by mouth at bedtime. 90 Tablet 1 09/24/2023 Active pravastatin (PRAVACHOL) 40 mg tabletIndications:Mix ed hyperlipidemia Take 1 Tablet (40 mg) by mouth once daily. 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 TO LAST AT LEAST 30 DAYS. 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 ) 11/11/2023 Travel 11/06/2023 1:00 PM AREA FIELD PERSON Phone Office Visit [facility] [address] [place] [phone] Kate Pugh, Medication Management; Phone Visit ([place]) 11/05/2023 Refill [facility] [address] [place] [address] [place] Natalie Aliya, DO Refill Request (Pravastatin) 10/07/2023 11:25 AM AREA FIELD PERSON Office Visit [facility] [address] [place] [address] [place] Natalie Aliya, DO ER Follow up (Constipation, acid reflux - patient stopped Pantoprazole and metamucil ) 10/07/2023 Travel 09/24/2023 12:30 PM AREA FIELD PERSON Phone Office Visit [facility] [address] [place] [phone] Kate Pugh, Medication Management; Phone Visit ([place]) from Last 3 Months Immunizations Name Administration Dates Next Due COVID-19 Vaccine Spikevax (M oderna 50mcg/0.5mL) 12YO+ [id number] Formula PF 06/12/2023 COVID-19 vaccine (Moderna 100mcg/0.5mL) [...] Years Used Date Smoking Tobacco: Former Cigars Q uit: 08/2021 Smokeless Tobacco: Never Tobacco Cessation:Counseling Given: Yes Comments:very occasional cigar Alcohol Use Standard Drinks/Week Comments Not Currently 0 (1 standard drink = 0.6 oz pur e alcohol) PHQ-2 Answer Date Recorded PHQ-2 TOTAL SCORE 0 11/06/2023 Social Connections Answer Date Recorded Frequency of Communication with Friends and Fami ly 0 11/11/2023 Financial Resource Strain Answer Date R ecorded Difficulty of Paying Living Expenses 3 11/11/2023 Difficulty of Paying Living Expenses Not on file 11/11/2023 Food Insecurity Answer Date Recorded Worried About Running Out of Food in the Last Ye ar 1 11/11/2023 Transportation Needs Answer Date Record ed Lack of Transportation (Medical) 1 11/11/2023 Housing Stability Answer Date Recorded Unable to Pay for Housing in the Last Year 1 11/11/2023 Sex and Gender Information Value Date Recorded Sex Assigned at Not on file Gender Identity Not on file Sexual Orientation Not on file Obstetrics History Last Filed Vital Signs Vital Sign Reading Time Taken Comments Blood Pressure 120/80 11/11/2023 1:54 PM CDT Pulse 66 11/11/2023 1:54 PM CDT Temperature 36.7 ??C (98.1 ??F) 01/14/2023 9:46 AM CD T Respiratory Rate 18 01/14/2023 9:46 AM CDT Oxygen Saturation 98% 11/11/2023 1:54 PM CDT Inhaled Oxygen Concentration - - Weight 72.1 kg (159 lb) 11/11/2023 1:54 PM CDT Height 170.7 cm (5' 7.21) 01/14/2023 9:46 AM CD T Body Mass Index 24.75 01/14/2023 9:46 AM CDT Plan of Treatment Upcoming Encounters Date Type Department Care Team (Late st Contact Info) Description 01/01/2024 8:45 AM CDT Office Visit [facility] [address] [place] [address] Sanya Rios DPM [address] [place] [address] 02/04/2024 8:55 AM CDT Office Visit [facility] [address] [place] [address] Natalie Juárez, DO [address] [place] [address] 02/18/2024 12:30 PM CDT Phone Office Visit [facility] [address] [place] [phone] Kate Pugh DO [address] [place] [address] Health Maintenance Due Date Last Done Comments Pneumococcal series for age 65+ (1 of 1 - PCV) 2022 Medicare Wellness for age 65+ 01/09/2024 01/08/2023, 01/02/2022 BMI (ht and wt on same day) for age 18+ 01/15/2024 01/14/2023, 01/08/2023, 12/20/2022, Additional history exists Influenza for age 65+ 05/03/2024 06/12/2023, 008 Depression screening for age 12+ 11/10/2024 11/11/2023, 11/06/2023, 08/06/2023, Additional history exists Lipids for age 45-75 06/22/2027 06/22/2022, 01/20/2020 (Completed outside of [facility]), 03/03/2010, Additional history exists Tetanus booster 07/11/2029 07/11/2019, 04/16/2006 Colonoscopy through age 75 03/03/203003/03 (Completed outside of [facility]) Tdap Completed 07/11/2019, 04/16/2006 Hepatitis C screening for ag e 18-79 Completed 01/02/2022 Zoster (shingles) series for age 50+ Completed 08/21/2022, 03/26/2022 AAA screening age 65-74 Completed 09/24/2022 COVID-19 vaccine series Completed 06/12/20, 03/26/2022, 01/17/2021, Additional history exists Procedures Procedure Name Priority Date/Time Associated Diagnosis Comments US ABD AORTA SCREENING Routine 09/24/2022 9:16 AM AREA FIELD PERSON Screening for AAA (aortic abdominal aneurysm) LIPID PANEL W REFLEX MEASURED LDL Routine 06/22/2022 11:44 AM CDT Screening cholesterol level ANTI HCV Routine 01/02/2022 10:46 AM CDT Encounter for hepatitis C screening test for low risk patient from Last 3 Months or Most Recently Relevant to Health Maintenance Results * US ABD AORTA SCREENING [[id number]] (09/24/2022 9:16 AM AREA FIELD PERSON) Anatomical Region Laterality Modality Abdomen, AORTA Ultrasound 09/24/2022 10:4 1 AM AREA FIELD PERSON Impressions 09/24/2022 10:41 AM AREA FIELD PERSON Normal sonographic assessment of the abdominal aorta. Dictated by Colin Dumas MD @ Sep 24 2022 10:41AM (Electronically Signed) ?? Narrative 09/24/2022 10:41 AM AREA FIELD PERSON For Patients: ??As a result of the Cures Act, medical imaging exams and procedure reports are released immediately into your electronic medical record. ??You may view this report before your referring provider. ??If you have questions, please contact your health care provider. INDICATION: Screening for abdominal aortic aneurysms. COMPARISON: None. TECHNIQUE: Nj scale and color images were acquired of the abdominal aorta and iliac arteries. FINDINGS: Sonographic imaging demonstrates a normal appearance of the abdominal aorta and IVC. There is no evidence of aneurysm formation or aortic dissection. ??Proximally, the aorta measures 2.7 x 2.3 cm in AP and transverse diameter, mid 1.9 x 1.7 cm in AP and transverse diameter, and distally tapers to a measurement of 1.9 x 1.9 cm in AP and transverse diameter. The common iliac arteries are patent and measure 1.2 x 1.2 cm in AP and transverse diameter on the left and 1.2 x 1.3 cm in AP and transverse diameter on the right. ??There were no suspicious periaortic masses. Procedure Note Colin Dumas MD - 09/24/2022 For Patients: As a result of the Cures Act, medical imagingexams and procedure reports are released immediately into your electronicmedical record. You may view this report before your referring provider.If you have questions, please contact your health care provider. INDICATION: Screening for abdominal aortic aneurysms. COMPARISON: None. TECHNIQUE: Nj scale and color images were acquired of the abdominal aorta and iliacarteries. FINDINGS: Sonographic imaging demonstrates a normal appearance of the abdominalaorta and IVC. There is no evidence of aneurysm formation or aorticdissection. Proximally, the aorta measures 2.7 x 2.3 cm in AP andtransverse diameter, mid 1.9 x 1.7 cm in AP and transverse diameter, anddistally tapers to a measurement of 1.9 x 1.9 cm in AP and transversediameter. The common iliac arteries are patent and measure 1.2 x 1.2 cm inAP and transverse diameter on the left and 1.2 x 1.3 cm in AP andtransverse diameter on the right. There were no suspicious periaorticmasses. IMPRESSION: Normal sonographic assessment of the abdominal aorta. Dictated by Colin Dumas MD @ Sep 24 2022 10:41AM (Electronically Signed) Natalie Juárez DO US * LIPID PANEL W REFLEX MEASURED LDL (06/22/2022 11:44 AM CDT) CHOLESTEROL,TOTAL 189 100 - 199 mg/dL 06/24/2022 3:12 AM CDT [facility] [employer] LABORATORY-[facility] TRAL LABORATORY TRIGLYCERIDES 94 <150 mg/dL 06/24/2022 3:12 AM CDT [facility] LAB[facility]ATORY-[facility] HDL CHOLESTEROL 70 >40 mg/dL 2 3:12 AM CDT [facility] LAB[facility] TRAL LABORATORY NON-HDL CHOLESTEROL 119 <145 mg/dl 06/24/2022 3:12 AM CDT [email or web address] CHOL/HDL RATIO 2.70 <4.50 06/24/2022 3:12 AM CDT [facility] TR[facility] LABORATORY LDL CHOLESTEROL 100 <=130 mg/dL 06/24/2022 3:12 AM CDT [facility] TRAL LABORATORY VLDL CHOLESTEROL 19 <=30 mg/dL 06/24/2022 3:12 AM CDT [facility] TRAL LABORATORY PROVIDER ORDERED STATUS RANDOM 06/24/2022 3:12 AM CDT [facility] TR[facility] LAB[facility] Blood BLOOD SPECIMEN / Unknown Venipuncture / Unknown 06/22/2022 11:44 AM CDT 06/22/2022 11:44 AM CDT Natalie Juárez DO CHEMISTRY Performing Organization Address City/[facility]/ZIP Co de Phone Number [facility] [email or web address] LABORATORY [address] [place] [address], * ANTI HCV (01/02/2022 10:46 AM CDT) HEPATITIS C ANTIBODY Non-React asia Non-React asia 01/02/2022 6:27 PM CDT [email or web address] Comment:Antibodies to HCV no t detected; does not exclude the possibility of exposure to HCV. Blood BLOOD SPECIMEN / Unknown Venipuncture / Unknown 01/02/2022 10:46 AM CDT 01/02/2022 10:47 AM CDT Natalie Juárez DO [facility] [address] [place] [address], from Last 3 Months or Most Recently Relevant to Health Maintenance Care Teams Tester Regulator Relationship Specialty Start Date End Date Natalie Juárez DO [address] [place] [address] PCP - General Family Practice 03/01/21 Kate Pugh DO [address] [place] [address] Psychiatry 02/04/23
--- OUTSIDE RECORDS SUMMARY | 2023-12-18 09:12 | XMS_ITS | Data Portability ---
Author Name Unknown Address [address] [place] [address] Phone [phone] Organization [facility], [facility] Address [address] [place] [address] Care Team Providers Care Manager Outreach Name Role Phone [place]INE [place] Primary Care Provider [phone] Assessment Encounter Date Assessment Date Assessment LastModified [...] 023 [email or web address] [facility], [address], [place], [address], 15:08:08 urinalysis , dipstick 2022 023 [email or web address] [facility], [address], [place], [address], 12:14:01 Referral None recorded. Procedures None recorded. Surgeries None recorded. Imaging None recorded. Medication Orders None recorded. Patient TargetsNo targets recorded. Patient InstructionsNo instructions recorded. Reason for Referral None Reported. Results Created Date Observation Date Name Description Value Unit Range Abnormal Flag LastModifiedBy Organization Detail LastModifiedTime 09/27/1909/27/2022 urina lysis , dipst ick Sp Washburn-Stat us 1.005 Not Available [facility] [address], [place], [address], 09/27/2022 12:12:58 09/27/19 23 09/27/2022 urina lysis , dipst ick pH-Status 6.0 Not Available [facility] [address], [place], [address], 09/27/2022 12:12:58 09/27/19 23 09/27/2022 urina lysis , dipst ick Nitrates-Sta tus negati ve Not Available [facility] [address], [place], [address], 09/27/2022 12:12:58 09/27/1909/27/2022 urina lysis , dipst ick Blood-Status Trace Not Available [facility] [address], [place], [address], 09/27/2022 12:12:58 09/27/19 23 09/27/2022 urina lysis , dipst ick Leuko-Status Negati ve Not Available [facility] [address], [place], [address], 09/27/2022 12:12:58 02/28/20 23 02/27/2023 urina lysis , dipst ick Color-Status Yellow Not Available [facility] [address], [place], [address], 02/27/2023 15:07:16 02/28/20 23 02/27/2023 urina lysis , dipst ick Clarity-Stat us Clear Not Available [facility] [address], [place], [address], 02/27/2023 15:07:16 02/28/20 23 02/27/2023 urina lysis , dipst ick Glucose-Stat us Negati ve Not Available [facility] [address], [place], [address], 02/27/2023 15:07:16 02/28/20 23 02/27/2023 urina lysis , dipst ick Nitrates-Sta tus negati ve Not Available [facility] [address], [place], [address], 02/27/2023 15:07:16 02/28/20 23 02/27/2023 urina lysis , dipst ick Blood-Status Negati ve Not Available [facility] [address], [place], [address], 02/27/2023 15:07:16 02/28/20 23 02/27/2023 urina lysis , dipst ick Leuko-Status Negati ve Not Available [facility] [address], [place], [address], 02/27/2023 15:07:16 12/22/19 22 12/20/2021 XR, urogr [...] Time 3 Bladder Scan completed Pilar marcelo [facility] 08/22/2023 10:45:31 3 UroCuff completed Erma marcelo [facility] 08/08/2023 16:46:48 3 Bladder Scan completed Erma marcelo [facility] 08/08/2023 16:22:41 3 Bladder Scan completed Romie marcelo [facility] 02/27/2023 15:07:12 3 Bladder Scan completed Venkatesh Ontiveros MD [address] [place] [address],[address], [address] 09/27/2022 12:46:00 0 colonoscopy completed Pilar marcelo [facility] 08/22/2023 10:42:53 Imaging Results Imaging Date [...] Updated DateTime 09/27/2022 168.91 cm 24.6 kg/m2 09344.[address] [facility] 09/27/2022 12:18:06 Date Recorded Body height Body mass index (BMI) Body weight Provider Name and Address Organization Details Last Updated DateTime 02/27/2023 168.91 cm 24.6 kg/m2 46063.82 g Romei Santos [facility] 02/27/2023 15:03:45 Date Recorded Body height Body mass index (BMI) Body weight Provider Name and Address Organization Details Last Updated DateTime 08/22/2023 168.91 cm 26.2 kg/m2 28596.74 g Pilar Smith [facility] 08/22/2023 10:42:08 Social History Question Answer Notes LastModified by Organizat ion Details LastModified Time Tobacco Smoking Status Former Smoker Miriam marcelo [facility] 09/27/2022 12:24:21 What Is Your Level Of Alcohol Consumption? None Information not available 02/27/2023 What Is Your Level Of Caffeine Consumption? Moderate Information not available 02/27/2023 Are You Currently Employed? No Information not available 02/27/2023 When Did You Quit Smoking? 1-5yearssince lastcigarette [email or web address] Information not available 08/22/2023 Recreational Drug Use No Information not available 02/27/2023 What Was The Date Of Your Most Recent Tobacco Screening? 08/22/2023 [email or web address] Information not available 08/22/2023 What Is Your [...] Pressure Y Kidney Stones N Cancer N Lung Disease N Depression Y High Cholesterol Y GERD/Acid Reflux Y Heart Disease N Immunizations Vaccine Type Date Status Provider Name and Address Organization Details Recorded Time COVID-19, mRNA, LNP-S, PF, 50 mcg/0.5 mL 06/12/2023 completed Pilar marcelo [facility] 08/22/2023 10:42:13 influenza, injectable, quadrivalent, preservative free 06/12/2023 completed Pilar marcelo [facility] 08/22/2023 10:42:13 zoster recombinant 03/26/2022 completed Jenny marcelo [facility] 07/03/2023 17:11:29 zoster recombinant 08/21/2022 completed Jenny marcelo [facility] 07/03/2023 17:11:29 COVID-19, mRNA, LNP-S, PF, 100 mcg/0.5mL dose or 50 mcg/0.25mL dose 12/21/2020 completed Jenny marcelo [facility] 07/03/2023 17:11:29 COVID-19, mRNA, LNP-S, PF, 100 mcg/0.5mL dose or 50 mcg/0.25mL dose 01/17/2021 completed Jenny marcelo [facility] 07/03/2023 17:11:29 COVID-19, mRNA, LNP-S, PF, 100 mcg/0.5mL dose or 50 mcg/0.25mL dose 03/26/2022 completed SORIN Robb [facility] 07/03/2023 17:11:29 COVID-19, mRNA, LNP-S, PF, 100 mcg/0.5mL dose or 50 mcg/0.25mL dose 08/17/2021 completed SORIN Robb [facility] 07/03/2023 17:11:29 COVID-19, mRNA, LNP-S, bivalent, PF, 50 mcg/0.5 mL or 25mcg/0.25 mL dose 07/11/[address] [facility] 07/03/2023 17:11:29 Tdap 07/11/2019 completed Jenny marcelo [facility] 07/03/2023 17:11:29 Influenza, seasonal, injectable 06/14/[address] [facility] 07/03/2023 17:11:29 Past Encounters Encounter ID Performer Location Encounter Start Date Encounter Closed Date Diagnosis/Indication Diagnosis SNOMED-CT Code [id number] MD CHANDA [facility] [address] [place] [address] 09/27/2022 11:56:38 10/01/2022 14:14:58 Urethral stricture [id number] Recurrent urinary tract infection [id number] MD CHANDA [facility] [address] [place] [address] 02/27/2023 14:11:30 03/07/2023 08:28:19 Urethral stricture [id number] Recurrent urinary tract infection [id number] Erma [facility] [address] [place] [address] 08/08/2023 10:50:58 08/16/2023 11:25:54 Urethral stricture [id number] MD Margarette Mcneill [address] [place] [address] 08/22/2023 10:36:02 09/04/2023 10:08:51 Urethral stricture [id number] Recurrent urinary tract infection [id number] Health Concerns Section Related Observation LastModified by Organization Detai ls LastModified Time None Recorded Concern Status LastModified by Organization Details LastModified Time None Recorded Advance Directives Directive None Recorded Payers Encounter Date Sequence Insurance Name Policy Number Policy Bruno Covered Member ID Bruno Member ID Guarantor Name 08/22/2023 1 [place] [facility] Jerry Ballesteros [id number] Jerry Ballesteros 08/08/2023 1 [place] [facility] Jerry Ballesteros [id number] Jerry Ballesteros 02/27/2023 1 [place] [facility] Jerry Ballesteros [id number] Jerry Ballesteros 09/27/2022 1 [place] [facility] Jerry Ballesteros [id number] 6 Jerry Ballesteros Notes Date Note Type Note Provider Name and Address Organization Details Recorded Time 09/27/2022 text/html HPI Notes: Mr. Ballesteros is a very pleasant 67-year-old male with a history of imperforate anus, solitary kidney, and history of urethral stricture disease requiring multiple dilations. Patient states that his last dilation was about [address] Prabhakar. Was seeing a Patient Care Manager while living in [place] but it has been quite some time since he has seen a Urologist. No established nephrology care here in [place]. Current urination consists of: urinary frequency with [...] any more than usual. Venkatesh Ontiveros MD [address], [place], [address], [facility] 09/27/2022 12:46:39 02/27/2023 text/html HPI Notes: Mr. Ballesteros is a very pleasant 67-year-old male with a history of imperforate anus, solitary kidney, and history of urethral stricture disease requiring multiple dilations. Patient states that his last dilation was about [address] Prabhakar. Was seeing a Patient Care Manager while living in [place] but it has been quite some time since he has seen a Urologist. No established nephrology care here in [place]. Current urination consists of: urinary frequency with [...] since started cranberry supplement. Venkatesh Ontiveros MD [address], [place], [address], [facility] 02/27/2023 22:10:59 08/22/2023 text/html HPI Notes: Mr. Ballesteros is a very pleasant 67-year-old male with a history of imperforate anus, solitary kidney, and history of urethral stricture disease requiring multiple dilations. Patient states that his last dilation was about [address] Prabhakar. Was seeing a Patient Care Manager while living in [place] but it has been quite some time since he has seen a Urologist. No established nephrology care here in [place]. Current urination consists of: urinary frequency with [...] no recent UTIs. Venkatesh Ontiveros MD [address], [place], [address], [facility] 08/22/2023 13:34:58
[2023-12-18 09:24] LABS: PCR FLU A Negative PCR FLU A (Negative); PCR FLU B Negative PCR FLU B (Negative); PCR RSV Negative PCR RSV (Negative); SARS PCR* Negative SARS-CoV-2 (Negative)
== END 2023-12-18 10:25 | disposition home or self-care (01) ==
PROVIDERS: Emergency Provider Family Medicine; PCP Family Medicine
DX: J40 Bronchitis, not specified as acute or chronic (principal)
CPT/HCPCS: 71045; 87631; 99283

== ENCOUNTER 2023-12-19 14:12 | Emergency (ER) | payer MEDICARE, OTHER, SELFPAY ==
[2023-12-19 14:18] VITALS: BP 125/79; PULSE 87; RESP 20; TEMP 37.2; O2SAT 97; BMI 25.8
--- NOTE | 2023-12-19 14:34 | ED_ITS ---
HPI - General Adult General Chief complaint: Cough Stated complaint: persistent cough Time Seen by Provider: 12/19/23 14:27 History of Present Illness HPI narrative: Patient is a 68-year-old gentleman who comes in today after being seen yesterday for cough. Yesterday his COVID RSV and influenza testing was negative. He had negative chest x-ray. Patient states his cough is refractory. His cough is nonproductive he has no hemoptysis no hematemesis he presents with normal vital signs on room air today. He has no other specific complaints or concerns. Related Data Home Medications Medication Instructions Recorded Confirmed clonazepam 0.5 mg tablet 0.5 mg PO DAILY 12/02/22 12/18/23 mirtazapine 7.5 mg tablet 7.5 mg PO QPM 12/02/22 12/18/23 pravastatin 40 mg tablet 40 mg PO DAILY 12/02/22 12/18/23 amlodipine 5 mg tablet 5 mg PO DAILY 03/11/23 12/18/23 aspirin 81 mg tablet,delayed 81 mg PO DAILY 09/06/23 12/18/23 release (Adult Aspirin Regimen) Previous Rx's Medication Instructions Recorded pantoprazole 20 mg tablet,delayed 20 mg PO DAILY #20 tabs 10/01/23 release (Protonix) benzonatate 200 mg capsule 200 mg PO BID-TID PRN cough #30 12/19/23 caps Allergies Allergy/AdvReac Type Severity Reaction Status Date / Time No Known Drug Allergies Allergy Verified 12/18/23 08:36 Review of Systems Status of ROS: Reports: 10 or more systems reviewed and unremarkable except as noted in History and below PFSH PFS Social History Smoking Status: Never smoker Do you use any of these nicotine containing products: None How often do you have a drink containing alcohol: never How often do you have six or more drinks on one occasion: Never AUDIT-C Alcohol total score: 0 Non-prescribed substance use: denies use service: No Exam Narrative: Exam Narrative: EXAM GENERAL: Patient appears comfortable and well. EYES: No scleral icterus. LYMPH: No supraclavicular or cervical lymphadenopathy. SKIN: Visible skin seen during exam normal or with benign process only. EXT: No dependent lower extremity pedal edema. HEART: Regular rate and rhythm with no murmurs, rubs, or gallops. LUNGS: Clear to auscultation bilaterally with no crackles or wheezes. ABD: Soft, non tender, non distended. PSYCH: Good eye contact, speech is not pressured. Const: Vital Signs, click to edit/add: Vital Signs - 24 hr 12/19/23 14:18 Temperature 98.9 F Pulse Rate [Pulse Oximeter] 87 Respiratory Rate 20 Blood Pressure [Ri ght Upper Arm] 125/79 Pulse Oximetry 97 Oxygen Delivery Me thod Room Air Course Course ED Course: Patient seen examined. Yesterday his evaluation reviewed. Vital Signs Vital signs: Initial Vital Signs Temperature 98.9 F 12/19/23 14:18 Temperature Source Oral 12/19/23 14:18 Pulse Rate 87 12/19/23 14:18 Respiratory Rate 20 12/19/23 14:18 Blood Pressure 125/79 12/19/23 14:18 Blood Pressure Mean 94 12/19/23 14:18 Blood Pressure Position Sitting 12/19/23 14:18 Pulse Oximetry 97 12/19/23 14:18 Oxygen Delivery Method Room Air 12/19/23 14:18 Vital Signs Temperature 98.9 F 12/19/23 14:18 Pulse Rate 87 12/19/23 14:18 Respiratory Rate 20 12/19/23 14:18 Blood Pressure 125/79 12/19/23 14:18 Pulse Oximetry 97 12/19/23 14:18 Oxygen Delivery Method Room Air 12/19/23 14:18 Temperature 98.9 F 12/19/23 14:18 Pulse Rate 87 12/19/23 14:18 Respiratory Rate 20 12/19/23 14:18 Blood Pressure 125/79 12/19/23 14:18 Pulse Oximetry 97 12/19/23 14:18 Oxygen Delivery Method Room Air 12/19/23 14:18 Medical Decision Making MDM Narrative Medical decision making narrative: Patient is a 68-year-old gentleman presents with cough no fever no hypoxia. He had a thorough evaluation done yesterday and has a normal exam with me today. I do think that he has a viral cough likely due to bronchitis. I did treated with Rose Marie WEATHERS and follow-up with his primary physician. Differential diagnosis includes but not limited to pneumonia bronchitis pneumothorax viral syndrome congestive heart failure. Discharge Plan Discharge Clinical Impression: Bronchitis Patient Disposition: Home, Self-Care Condition: Stable Instructions: Acute Bronchitis (ED) Additional Instructions: Continue Robitussin DM as directed Rose Marie Quarles at her pharmacy as directed Tylenol Motrin Rest Fluids Follow-up with your doctor as needed. Activity Level: No Restrictions Discharge Diet: Regular Prescriptions: New benzonatate 200 mg capsule 200 mg PO BID-TID PRN (Reason: cough) Qty: 30 0RF No Action pravastatin 40 mg tablet 40 mg PO DAILY clonazepam 0.5 mg tablet 0.5 mg PO DAILY mirtazapine 7.5 mg tablet 7.5 mg PO QPM aspirin [Adult Aspirin Regimen] 81 mg tablet,delayed release (DR/EC) 81 mg PO DAILY pantoprazole [Protonix] 20 mg tablet,delayed release (DR/EC) 20 mg PO DAILY Qty: 20 2RF amlodipine 5 mg tablet 5 mg PO DAILY Patient Comments: TAKE 1 TABLET (5 MG) BY MOUTH ONCE DAILY. Follow Up/Referrals: Natalie Juárez DO [Primary Care Provider] - Stand Alone Forms: [facility] Info Instructions
--- OUTSIDE RECORDS SUMMARY | 2023-12-19 14:48 | XMS_ITS | Data Portability ---
Author Name Unknown Address [address] [place] [address] Phone [phone] Organization [facility], [facility] Address [address] [place] [address] Care Team Providers Care Business Asst Name Role Phone MARINE DENVER Primary Care Provider Assessment Encounter Date Assessment [...] 023 [email or web address] [facility], [address], [place], [address], 15:08:08 urinalysis , dipstick 2022 023 [id number] [facility], [address], [place], [address], 12:14:01 Referral None recorded. Procedures None recorded. Surgeries None recorded. Imaging None recorded. Medication Orders None recorded. Patient TargetsNo targets recorded. Patient InstructionsNo instructions recorded. Reason for Referral None Reported. Results Created Date Observation Date Name Description Value Unit Range Abnormal Flag LastModifiedBy Organization Detail LastModifiedTime 09/27/1909/27/2022 urina lysis , dipst ick Sp Crozier-Stat us 1.005 Not Available [facility] [address], [place], [address], 09/27/2022 12:12:58 09/27/19 23 09/27/2022 urina lysis , dipst ick pH-Status 6.0 Not Available [facility] [address], [place], [address], 09/27/2022 12:12:58 09/27/19 23 09/27/2022 urina lysis , dipst ick Nitrates-Sta tus negati ve Not Available [facility] [address], [place], [address], 09/27/2022 12:12:58 09/27/1909/27/2022 urina lysis , dipst ick Blood-Status Trace Not Available [facility] [address], [place], [address], 09/27/2022 12:12:58 09/27/19 23 09/27/2022 urina lysis , dipst ick Leuko-Status Negati ve Not Available [facility] [address], [place], [address], 09/27/2022 12:12:58 02/28/20 23 02/27/2023 urina lysis , dipst ick Color-Status Yellow Not Available [facility] [address], [place], [address], 02/27/2023 15:07:16 02/28/20 23 02/27/2023 urina lysis , dipst ick Clarity-Stat us Clear Not Available [facility] [address], [place], [address], 02/27/2023 15:07:16 02/28/20 23 02/27/2023 urina lysis , dipst ick Glucose-Stat us Negati ve Not Available [facility] [address], [place], [address], 02/27/2023 15:07:16 02/28/20 23 02/27/2023 urina lysis , dipst ick Nitrates-Sta tus negati ve Not Available [facility] [address], [place], [address], 02/27/2023 15:07:16 02/28/20 23 02/27/2023 urina lysis , dipst ick Blood-Status Negati ve Not Available [facility] [address], [place], [address], 02/27/2023 15:07:16 02/28/20 23 02/27/2023 urina lysis , dipst ick Leuko-Status Negati ve Not Available [facility] [address], [place], [address], 02/27/2023 15:07:16 12/22/19 22 12/20/2021 XR, urogr [...] Time 3 Bladder Scan completed Pilar marcelo [facility] 08/22/2023 10:45:31 3 UroCuff completed Erma marcelo [facility] 08/08/2023 16:46:48 3 Bladder Scan completed Erma marcelo [facility] 08/08/2023 16:22:41 3 Bladder Scan completed Romie marcelo [facility] 02/27/2023 15:07:12 3 Bladder Scan completed Venkatesh Ontiveros MD [address] [place] [address],[address], [place], [address] 09/27/2022 12:46:00 0 colonoscopy completed Pilar marcelo [facility] 08/22/2023 10:42:53 Imaging Results Imaging [...] Updated DateTime 09/27/2022 168.91 cm 24.6 kg/m2 15392.82 g Miriam marcelo [facility] 09/27/2022 12:18:06 Date Recorded Body height Body mass index (BMI) Body weight Provider Name and Address Organization Details Last Updated DateTime 02/27/2023 168.91 cm 24.6 kg/m2 34222.82 g Romie Santos [facility] 02/27/2023 15:03:45 Date Recorded Body height Body mass index (BMI) Body weight Provider Name and Address Organization Details Last Updated DateTime 08/22/2023 168.91 cm 26.2 kg/m2 57872.74 g Pilar Smith [facility] 08/22/2023 10:42:08 Social History Question Answer Notes LastModified by Organizat ion Details LastModified Time Tobacco Smoking Status Former Smoker Miriam marcelo [facility] 09/27/2022 12:24:21 What Is Your Level Of Alcohol Consumption? None Information not available 02/27/2023 What Is Your Level Of Caffeine Consumption? Moderate Information not available 02/27/2023 Are You Currently Employed? No Information not available 02/27/2023 When Did You Quit Smoking? 1-5yearssince lastcigarette [email or web address] Information not available 08/22/2023 Recreational Drug Use [...] 50 mcg/0.5 mL 06/12/2023 completed Pilar marcelo [facility] 08/22/2023 10:42:13 influenza, injectable, quadrivalent, preservative free 06/12/2023 completed Pilar marcelo [facility] 08/22/2023 10:42:13 zoster recombinant 03/26/2022 completed Jenny marcelo [facility] 07/03/2023 17:11:29 zoster recombinant 08/21/2022 completed Jenny marcelo [facility] 07/03/2023 17:11:29 COVID-19, mRNA, LNP-S, PF, 100 mcg/0.5mL dose or 50 mcg/0.25mL dose 12/21/2020 completed Jenny marcelo [facility] 07/03/2023 17:11:29 COVID-19, mRNA, LNP-S, PF, 100 mcg/0.5mL dose or 50 mcg/0.25mL dose 01/17/2021 completed Jenny marcelo [facility] 07/03/2023 17:11:29 COVID-19, mRNA, LNP-S, PF, 100 mcg/0.5mL dose or 50 mcg/0.25mL dose 03/26/2022 completed SORIN Rob[facility] 07/03/2023 17:11:29 COVID-19, mRNA, LNP-S, PF, 100 mcg/0.5mL dose or 50 mcg/0.25mL dose 08/17/2021 completed SORIN Robb [facility] 07/03/2023 17:11:29 COVID-19, mRNA, LNP-S, bivalent, PF, 50 mcg/0.5 mL or 25mcg/0.25 mL dose 07/11/2022 completed Jenny marcelo [facility] 07/03/2023 17:11:29 Tdap 07/11/2019 completed Jenny marcelo [facility] 07/03/2023 17:11:29 Influenza, seasonal, injectable 06/14/2008 completed Jenny marcelo [facility] 07/03/2023 17:11:29 Past Encounters Encounter ID Performer Location Encounter Start Date Encounter Closed Date Diagnosis/Indication Diagnosis SNOMED-CT Code [id number] MD CHANDA [facility] [address] [place] [address] 09/27/2022 11:56:38 10/01/2022 14:14:58 Urethral stricture 59593366 Recurrent urinary tract infection [id number] MD CHANDA [facility] [address] [place] [address] 02/27/2023 14:11:30 03/07/2023 08:28:19 Urethral stricture [id number] Recurrent urinary tract infection [id number] Erma [facility] [address] [place] [address] 08/08/2023 10:50:58 08/16/2023 11:25:54 Urethral stricture [id number] MD Margarette Mcneill [address] [place] [address] 08/22/2023 10:36:02 09/04/2023 10:08:51 Urethral stricture [id number] Recurrent urinary tract infection [id number] Health Concerns Section Related Observation LastModified by Organization Detai ls LastModified Time None Recorded Concern Status LastModified by Organization Details LastModified Time None Recorded Advance Directives Directive None Recorded Payers Encounter Date Sequence Insurance Name Policy Number Policy Bruno Covered Member ID Bruno Member ID Guarantor Name 08/22/2023 1 [place] [facility] Jerry Ballesteros [id number] Jerry Ballesteros 08/08/2023 1 [place] [facility] Jerry Ballesteros [id number] Jerry Ballesteros 02/27/2023 1 [place] [facility] Jerry Ballesteros [id number] 6 Jerry Ballesteros 09/27/2022 1 [place] [facility] Jerry Ballesteros [id number] 6 Jerry Ballesteros Notes Date Note Type Note Provider Name and Address Organization Details Recorded Time 09/27/2022 text/html HPI Notes: Mr. Ballesteros is a very pleasant 67-year-old male with a history of imperforate anus, solitary kidney, and history of urethral stricture disease requiring multiple dilations. Patient states that his last dilation was about 12 [address] Dr[address] Prabhakar. Was seeing a [employer] while living in [place] but it has been quite some time since he has seen a Urologist. No established nephrology care here in [place]. Current urination consists of: urinary frequency with [...] more than usual. Venkatesh Ontiveros MD [address], [place], [address], [facility] 09/27/2022 12:46:39 02/27/2023 text/html HPI Notes: Mr. Ballesteros is a very pleasant 67-year-old male with a history of imperforate anus, solitary kidney, and history of urethral stricture disease requiring multiple dilations. Patient states that his last dilation was about [address] Prabhakar. Was seeing a [employer] while living in [place] but it has been quite some time since he has seen a Urologist. No established nephrology care here in [place]. Current urination consists of: urinary frequency with [...] started cranberry supplement. Venkatesh Ontiveros MD [address], [place], [address], [facility] 02/27/2023 22:10:59 08/22/2023 text/html HPI Notes: Mr. Ballesteros is a very pleasant 67-year-old male with a history of imperforate anus, solitary kidney, and history of urethral stricture disease requiring multiple dilations. Patient states that his last dilation was about [address] Prabhakar. Was seeing a [employer] while living in [place] but it has been quite some time since he has seen a Urologist. No established nephrology care here in [place]. Current urination consists of: urinary frequency with [...] no recent UTIs. Venkatesh Ontiveros MD [address], [place], [address], [facility] 08/22/2023 13:34:58
--- OUTSIDE RECORDS SUMMARY | 2023-12-19 14:48 | XMS_ITS | Clinical Summary ---
Author Name Unknown Organization [facility] Address [place], [place] [address] Care Team Providers Care Tool Procurement Coordinator Name Role Phone Natalie Juárez Primary Care Provider [phone] LexyKate Unavailable [phone] Allergies No known active allergies Medications Medication [...] Department Care Team Description 12/04/2023 Medical Messaging [facility] [address] [place] [address] Natalie Juárez, DO Leg 11/11/2023 2:10 PM CDT Office Visit [facility] [address] [place] [address] Natalie Juárez, DO Leg Pain/problem (R leg pain, felt a pull after moving a case of water - pain present back of thigh); Knee Pain/problem (L knee pain, over compensating after R leg pain/pull? ) 11/11/2023 Travel 11/06/2023 1:00 PM RESIDUE FURNACE OPERATOR Phone [facility] [address] [place] [phone] Kate Pugh, Medication Management; Phone Visit ([place]) 11/05/2023 Refill [facility] [address] [place] [address] [place] Natalie Aliya, DO Refill Request (Pravastatin) 10/07/2023 11:25 AM RESIDUE FURNACE OPERATOR Office Visit [facility] [address] [place] [address] Vaughnqra Natalie Aliya, DO ER Follow up (Constipation, acid reflux - patient stopped Pantoprazole and metamucil ) 10/07/2023 Travel 09/24/2023 12:30 PM RESIDUE FURNACE OPERATOR Phone Office Visit [facility] [address] [place] [address] Kate Pugh, Medication Management; Phone Visit ([place]) from Last 3 Months Immunizations Name Administration Dates Next Due COVID-19 Vaccine Spikevax (M oderna 50mcg/0.5mL) 12YO+ 9401-1408 Formula PF 06/12/2023 COVID-19 vaccine (Moderna 100mcg/0.5mL) [...] Description 01/01/2024 8:45 AM CDT Office Visit [facility] [address] [place] [address] Sanya Rios DPM [address] [place] [address] 02/04/2024 8:55 AM CDT Office Visit [facility] [address] [place] [address] Natalie Juárez, DO [address] [place] [address] 02/18/2024 12:30 PM CDT Phone Office Visit [facility] [address] [place] [phone] Kate Pugh DO [address] [place] [address] Health Maintenance Due Date Last Done Comments [...] 45-75 06/22/2027 06/22/2022, 01/20/2020 (Completed outside of [facility]), 03/03/2010, Additional history exists Tetanus booster 07/11/2029 07/11/2019, 04/16/2006 Colonoscopy through age 75 03/03/203003/03 (Completed outside of [facility]) Tdap Completed 07/11/2019, 04/16/2006 Hepatitis C screening for ag e 18-79 Completed 01/02/2022 Zoster (shingles) series for age 50+ Completed 08/21/2022, 03/26/2022 AAA screening age 65-74 Completed 09/24/2022 COVID-19 vaccine series Completed 06/12/20, 03/26/2022, 01/17/2021, Additional history exists Procedures Procedure Name Priority Date/Time Associated Diagnosis Comments US ABD AORTA SCREENING Routine 09/24/2022 9:16 AM RESIDUE FURNACE OPERATOR Screening for AAA (aortic abdominal aneurysm) LIPID PANEL W REFLEX MEASURED LDL Routine 06/22/2022 11:44 AM CDT Screening cholesterol level ANTI HCV Routine 01/02/2022 10:46 AM CDT Encounter for hepatitis C screening test for low risk patient from Last 3 Months or Most Recently Relevant to Health Maintenance Results * US ABD AORTA SCREENING [[id number]] (09/24/2022 9:16 AM RESIDUE FURNACE OPERATOR) Anatomical Region Laterality Modality Abdomen, AORTA Ultrasound 09/24/2022 10:4 1 AM RESIDUE FURNACE OPERATOR Impressions 09/24/2022 10:41 AM RESIDUE FURNACE OPERATOR Normal sonographic assessment of the abdominal aorta. Dictated by Colin Dumas MD @ Sep 24 2022 10:41AM (Electronically Signed) ?? Narrative 09/24/2022 10:41 AM RESIDUE FURNACE OPERATOR For Patients: ??As a result of the [...] - 199 mg/dL 06/24/2022 3:12 AM CDT [facility] TRIGLYCERIDES 94 <150 mg/dL 06/24/2022 3:12 AM CDT [facility] HDL CHOLESTEROL 70 >40 mg/dL 2 3:12 AM CDT [facility] NON-HDL CHOLESTEROL 119 <145 mg/dl 06/24/2022 3:12 AM CDT [facility] CHOL/HDL RATIO 2.70 <4.50 06/24/2022 3:12 AM CDT [facility] LDL CHOLESTEROL 100 <=130 mg/dL 06/24/2022 3:12 AM CDT [facility] VLDL CHOLESTEROL 19 <=30 mg/dL 06/24/2022 3:12 AM CDT [facility] PROVIDER ORDERED STATUS RANDOM 06/24/2022 3:12 AM CDT [facility] Blood BLOOD SPECIMEN / Unknown Venipuncture / Unknown 06/22/2022 11:44 AM CDT 06/22/2022 11:44 AM CDT Natalie Juárez DO CHEMISTRY Performing Organization Address City/[facility]/ZIP Co de Phone Number [facility] [address] [place] [address], * ANTI HCV (01/02/2022 10:46 AM CDT) HEPATITIS C ANTIBODY Non-React asia Non-React [facility]ia 01/02/2022 6:27 PM CDT [facility] [employer] Comment:Antibodies to HCV no t detected; does not exclude the possibility of exposure to HCV. Blood BLOOD SPECIMEN / Unknown Venipuncture / Unknown 01/02/2022 10:46 AM CDT 01/02/2022 10:47 AM CDT Natalie Juárez DO [facility] [address] [place] [address], from Last 3 Months or Most Recently Relevant to Health Maintenance Care Teams Tool Procurement Coordinator Relationship Specialty Start Date End Date Natalie Juárez DO [address] [place] [address] PCP - General Family Practice 03/01/21 Kate Pugh DO [address] [place] [address] Psychiatry 02/04/23
== END 2023-12-19 14:56 | disposition home or self-care (01) ==
LOC: ED 14:46
PROVIDERS: Emergency Provider Internal Medicine; PCP Family Medicine
DX: J40 Bronchitis, not specified as acute or chronic (principal)
CPT/HCPCS: 99283

== ENCOUNTER 2024-01-02 12:13 | Emergency (ER) | payer MEDICARE, OTHER, SELFPAY ==
[2024-01-02 12:21] VITALS: BP 134/83; PULSE 67; RESP 16; TEMP 37; O2SAT 96; BMI 25.8
--- NOTE | 2024-01-02 12:29 | ED_ITS ---
HPI - General Adult General Time Seen by Provider: 12:29 Date Seen: 01/02/24 Chief complaint: Cough Stated complaint: Congestion, cough Time Seen by Provider: 01/02/24 12:29 Source: patient Mode of arrival: ambulatory Limitations: no limitations History of Present Illness HPI narrative: Jerry is a very pleasant 68-year-old male with history of viral bronchitis with in the last 3 weeks who comes to the emergency room to ensure that he does not need any further treatment. Patient was treated with Tessalon Perles after full workup which included chest x-ray. He did not receive any antibiotics. He notes that he has not needed to use the Tessalon Perles and has actually been feeling better. His concern is that every few days he has worsening cough but overall has been on an upward trajectory. He denies fevers chills sore throat or runny nose. States he has been feeling much better and has been trying to get outside. Denies history of tobacco use or COPD. Denies chest pain. Related Data Home Medications Medication Instructions Recorded Confirmed clonazepam 0.5 mg tablet 0.5 mg PO DAILY 12/02/22 12/18/23 mirtazapine 7.5 mg tablet 7.5 mg PO QPM 12/02/22 12/18/23 pravastatin 40 mg tablet 40 mg PO DAILY 12/02/22 12/18/23 amlodipine 5 mg tablet 5 mg PO DAILY 03/11/23 12/18/23 aspirin 81 mg tablet,delayed 81 mg PO DAILY 09/06/23 12/18/23 release (Adult Aspirin Regimen) Previous Rx's Medication Instructions Recorded pantoprazole 20 mg tablet,delayed 20 mg PO DAILY #20 tabs 10/01/23 release (Protonix) benzonatate 200 mg capsule 200 mg PO BID-TID PRN cough #30 12/19/23 caps Allergies Allergy/AdvReac Type Severity Reaction Status Date / Time No Known Drug Allergies Allergy Verified 01/02/24 12:21 Review of Systems Status of ROS: Reports: 6 or more systems reviewed and unremarkable except as noted in History and below Const: Denies: fever or chills Cardio: Denies: chest pain PFSH PFSH Social History Smoking Status: Never smoker Do you use any of these nicotine containing products: None How often do you have a drink containing alcohol: never How often do you have six or more drinks on one occasion: Never AUDIT-C Alcohol total score: 0 Non-prescribed substance use: denies use service: No Exam Narrative: Exam Narrative: Alert and oriented. No acute distress. External ears eyes nose with out drainage. Oral cavity is moist mucous membranes and no erythema in the posterior oropharynx. Neck is supple without lymphadenopathy. Heart with regular rate and rhythm without murmur rub. Lungs are clear in all lung mendez. Moving all extremities Const: Vital Signs, click to edit/add: Vital Signs - 24 hr 01/02/24 12:21 Temperature 98.6 F Pulse Rate [Pulse Oximeter] 67 Respiratory Rate 16 Blood Pressure [Ri ght Upper Arm] 134/83 Pulse Oximetry 96 Oxygen Delivery Me thod Room Air Documenting provider has reviewed patient's vital signs: yes Course Course ED Course: Differential diagnosis includes bronchitis, atypical pneumonia, seasonal allergies. At this time I reassure Jerry that I do not hear any unusual lung sounds but he is concerned about the ongoing cough. I have discussed with him the use of chest x-ray which IV usually only employ for persisting cough low or a cough that has worsened after initial improvement. He would like to have a chest x-ray at this time. Vital Signs Vital signs: Initial Vital Signs Temperature 98.6 F 01/02/24 12:21 Temperature Source Temporal Artery Scan 01/02/24 12:21 Pulse Rate 67 01/02/24 12:21 Respiratory Rate 16 01/02/24 12:21 Blood Pressure 134/83 01/02/24 12:21 Blood Pressure Mean 100 01/02/24 12:21 Blood Pressure Position Sitting 01/02/24 12:21 Pulse Oximetry 96 01/02/24 12:21 Oxygen Delivery Method Room Air 01/02/24 12:21 Vital Signs Temperature 98.6 F 01/02/24 12:21 Pulse Rate 67 01/02/24 12:21 Respiratory Rate 16 01/02/24 12:21 Blood Pressure 134/83 01/02/24 12:21 Pulse Oximetry 96 01/02/24 12:21 Oxygen Delivery Method Room Air 01/02/24 12:21 Temperature 98.6 F 01/02/24 12:21 Pulse Rate 67 01/02/24 12:21 Respiratory Rate 16 01/02/24 12:21 Blood Pressure 134/83 01/02/24 12:21 Pulse Oximetry 96 01/02/24 12:21 Oxygen Delivery Method Room Air 01/02/24 12:21 Medical Decision Making [facility] Narrative Medical decision making narrative: 1. Post viral cough-reassurance at this time with chest x-ray that does not show any concerning findings. Cough can last up to 6 weeks. Patient is instructed to return for worsening symptoms especially with fever or production. 2. Disposition-home at this time. Return as needed. Medical Records Medical records reviewed: Yes I reviewed the patient's medical records Imaging Data Chest x-ray: Attestation: I have reviewed the pertinent imaging results. My impression: I do not note any infiltrates. Radiologist's impression: There is no focal consolidation, effusion, or pneumothorax. The cardiomediastinal silhouette is within normal limits. The bony thorax is grossly intact. Impression: No acute cardiopulmonary abnormality. Discharge Plan Discharge Clinical Impression: Post-viral cough syndrome Patient Disposition: Home, Self-Care Condition: Unchanged Additional Instructions: Continue to monitor. Cough can last up to 6 weeks after a viral infection. If you suddenly have fever or productive cough that is worsening would suggest that you follow-up with your clinic. If it is an emergency come to the emergency room. Return as needed. Prescriptions: No Action pravastatin 40 mg tablet 40 mg PO DAILY clonazepam 0.5 mg tablet 0.5 mg PO DAILY mirtazapine 7.5 mg tablet 7.5 mg PO QPM aspirin [Adult Aspirin Regimen] 81 mg tablet,delayed release (DR/EC) 81 mg PO DAILY pantoprazole [Protonix] 20 mg tablet,delayed release (DR/EC) 20 mg PO DAILY Qty: 20 2RF amlodipine 5 mg tablet 5 mg PO DAILY Patient Comments: TAKE 1 TABLET (5 MG) BY MOUTH ONCE DAILY. benzonatate 200 mg capsule 200 mg PO BID-TID PRN (Reason: cough) Qty: 30 0RF Follow Up/Referrals: Natalie Juárez DO [Primary Care Provider] - Stand Alone Forms: [facility] Inst[facility]
--- NOTE | 2024-01-02 12:39 | XR_ITS ---
Patient: TRINA HARMAN Facility:?[facility] Patient ID:?[id number] Site Patient ID:?[id number] Site :?[id number] Study:?XRay-Chest 2 view-01/02/2024 1:04:52 PM Ordering Physician:Anita Baxter Final Report: Indication: Persistent cough Comparison: Single-view chest September 06, 2023 Technique: PA and lateral views of the chest Findings: There is no focal consolidation, effusion, or pneumothorax. The cardiomediastinal silhouette is within normal limits. The bony thorax is grossly intact. Impression: No acute cardiopulmonary abnormality. Dictated by Vasquez Blum MD @ 01/02/2024 1:12:26 PM Signed by:?Vasquez Blum MD @01/02/2024 1:12:26 PM (Electronic Signature)
--- OUTSIDE RECORDS SUMMARY | 2024-01-02 12:48 | XMS_ITS | Data Portability ---
Author Name Unknown Address [address] [place] [address] Phone [phone] Organization [facility], [facility] Address [address] [place] [address] Care Team Providers Care Hand Molder And Caster Name Role Phone MARINE PUYALLUP Primary Care Provider [phone] Assessment Encounter Date Assessment Date Assessment LastModified [...] 023 [email or web address] [facility], [address], [place], [address], 15:08:08 urinalysis , dipstick 2022 023 [email or web address] [facility], [address], [place], [address], 12:14:01 Referral None recorded. Procedures None recorded. Surgeries None recorded. Imaging None recorded. Medication Orders None recorded. Patient TargetsNo targets recorded. Patient InstructionsNo instructions recorded. Reason for Referral None Reported. Results Created Date Observation Date Name Description Value Unit Range Abnormal Flag LastModifiedBy Organization Detail LastModifiedTime 09/27/1909/27/2022 urina lysis , dipst ick Sp Hye-Stat us 1.005 Not Available [facility] [address], [place], [address], 09/27/2022 12:12:58 09/27/19 23 09/27/2022 urina lysis , dipst ick pH-Status 6.0 Not Available [facility] [address], [place], [address], 09/27/2022 12:12:58 09/27/19 23 09/27/2022 urina lysis , dipst ick Nitrates-Sta tus negati ve Not Available [facility] [address], [place], [address], 09/27/2022 12:12:58 09/27/1909/27/2022 urina lysis , dipst ick Blood-Status Trace Not Available [facility] [address], [place], [address], 09/27/2022 12:12:58 09/27/19 23 09/27/2022 urina lysis , dipst ick Leuko-Status Negati ve Not Available [facility] [address], [place], [address], 09/27/2022 12:12:58 02/28/20 23 02/27/2023 urina lysis , dipst ick Color-Status Yellow Not Available [facility] [address], [place], [address], 02/27/2023 15:07:16 02/28/20 23 02/27/2023 urina lysis , dipst ick Clarity-Stat us Clear Not Available [facility] [address], [place], [address], 02/27/2023 15:07:16 02/28/20 23 02/27/2023 urina lysis , dipst ick Glucose-Stat us Negati ve Not Available [facility] [address], [place], [address], 02/27/2023 15:07:16 02/28/20 23 02/27/2023 urina lysis , dipst ick Nitrates-Sta tus negati ve Not Available [facility] [address], [place], [address], 02/27/2023 15:07:16 02/28/20 23 02/27/2023 urina lysis , dipst ick Blood-Status Negati ve Not Available [facility] [address], [place], [address], 02/27/2023 15:07:16 02/28/20 23 02/27/2023 urina lysis , dipst ick Leuko-Status Negati ve Not Available [facility] [address], [place], [address], 02/27/2023 15:07:16 12/22/19 22 12/20/2021 XR, urogr [...] Time 3 Bladder Scan completed Pilar marcelo [facility] 08/22/2023 10:45:31 3 UroCuff completed Erma marcelo [facility] 08/08/2023 16:46:48 3 Bladder Scan completed Erma marcelo [facility] 08/08/2023 16:22:41 3 Bladder Scan completed Romie marcelo [facility] 02/27/2023 15:07:12 3 Bladder Scan completed Venkatesh Ontiveros MD [address] [place] [address],[address], [address] 09/27/2022 12:46:00 0 colonoscopy completed Pilar marcelo [facility] 08/22/2023 10:42:53 Imaging Results Imaging Date [...] Updated DateTime 09/27/2022 168.91 cm 24.6 kg/m2 43833.82 g Miriam marcelo [facility] 09/27/2022 12:18:06 Date Recorded Body height Body mass index (BMI) Body weight Provider Name and Address Organization Details Last Updated DateTime 02/27/2023 168.91 cm 24.6 kg/m2 34024.82 g Romie Santos [facility] 02/27/2023 15:03:45 Date Recorded Body height Body mass index (BMI) Body weight Provider Name and Address Organization Details Last Updated DateTime 08/22/2023 168.91 cm 26.2 kg/m2 03353.74 g Pilar Smith [facility] 08/22/2023 10:42:08 Social History Question Answer Notes LastModified by Organizat ion Details LastModified Time Tobacco Smoking Status Former Smoker Miriam marcelo [facility] 09/27/2022 12:24:21 What Is Your Level Of Alcohol Consumption? None Information not available 02/27/2023 What Is Your Level Of Caffeine Consumption? Moderate Information not available 02/27/2023 Are You Currently Employed? No Information not available 02/27/2023 When Did You Quit Smoking? 1-5yearssince lastcigarette [email or web address] Information not available 08/22/2023 Recreational Drug Use [...] 50 mcg/0.5 mL 06/12/2023 completed Pilar marcelo [facility] 08/22/2023 10:42:13 influenza, injectable, quadrivalent, preservative free 06/12/2023 completed Pilar marcelo [facility] 08/22/2023 10:42:13 zoster recombinant 03/26/2022 completed Jenny marcelo [facility] 07/03/2023 17:11:29 zoster recombinant 08/21/2022 completed Jenny marcelo [facility] 07/03/2023 17:11:29 COVID-19, mRNA, LNP-S, PF, 100 mcg/0.5mL dose or 50 mcg/0.25mL dose 12/21/2020 completed Jenny marcelo [facility] 07/03/2023 17:11:29 COVID-19, mRNA, LNP-S, PF, 100 mcg/0.5mL dose or 50 mcg/0.25mL dose 01/17/2021 completed Jenny marcelo [facility] 07/03/2023 17:11:29 COVID-19, mRNA, LNP-S, PF, 100 mcg/0.5mL dose or 50 mcg/0.25mL dose 03/26/2022 completed SORIN Robb [facility] 07/03/2023 17:11:29 COVID-19, mRNA, LNP-S, PF, 100 mcg/0.5mL dose or 50 mcg/0.25mL dose 08/17/2021 completed SORIN Robb [facility] 07/03/2023 17:11:29 COVID-19, mRNA, LNP-S, bivalent, PF, 50 mcg/0.5 mL or 25mcg/0.25 mL dose 07/11/2022 completed Jenny marcelo [facility] 07/03/2023 17:11:29 Tdap 07/11/2019 completed Jenny marcelo [facility] 07/03/2023 17:11:29 Influenza, seasonal, injectable 06/14/2008 completed Jenny marcelo [facility] 07/03/2023 17:11:29 Past Encounters Encounter ID Performer Location Encounter Start Date Encounter Closed Date Diagnosis/Indication Diagnosis SNOMED-CT Code [id number] MD CHANDA [facility] [address] [place] [address] 09/27/2022 11:56:38 10/01/2022 14:14:58 Urethral stricture [id number] Recurrent urinary tract infection [id number] MD CHANDA [facility] [address] [place] [address] 02/27/2023 14:11:30 03/07/2023 08:28:19 Urethral stricture [id number] Recurrent urinary tract infection [id number] Erma [facility] [address] [place] [address] 08/08/2023 10:50:58 08/16/2023 11:25:54 Urethral stricture [id number] MD Margarette Mcneill [address] [place] [address] 08/22/2023 10:36:02 09/04/2023 10:08:51 Urethral stricture [id number] Recurrent urinary tract infection [id number] Health Concerns Section Related Observation LastModified by Organization Detai ls LastModified Time None Recorded Concern Status LastModified by Organization Details LastModified Time None Recorded Advance Directives Directive None Recorded Payers Encounter Date Sequence Insurance Name Policy Number Policy Bruno Covered Member ID Bruno Member ID Guarantor Name 08/22/2023 1 [place] [facility] Jerry Ballesteros [id number] Jerry Ballseteros 08/08/2023 1 [place] [facility] Jerry Ballesteros [id number] Jerry Ballesteros 02/27/2023 1 [place] [facility] Jerry Ballesteros [id number] 6 Jerry Ballesteros 09/27/2022 1 MEDICARE B-[place]: [facility] Jerry Ballesteros [id number] 6 Jerry Ballesteros Notes Date Note Type Note Provider Name and Address Organization Details Recorded Time 09/27/2022 text/html HPI Notes: Mr. Ballesteros is a very pleasant 67-year-old male with a history of imperforate anus, solitary kidney, and history of urethral stricture disease requiring multiple dilations. Patient states that his last dilation was about [address] Prabhakar. Was seeing a Gas Plant Dispatcher while living in [place] but it has been quite some time since he has seen a Urologist. No established nephrology care here in [place]. Current urination consists of: urinary frequency with [...] more than usual. Venkatesh Ontiveros MD [address], [place], [address], [facility] 09/27/2022 12:46:39 02/27/2023 text/html HPI Notes: Mr. Ballesteros is a very pleasant 67-year-old male with a history of imperforate anus, solitary kidney, and history of urethral stricture disease requiring multiple dilations. Patient states that his last dilation was about [address] Prabhakar. Was seeing a Gas Plant Dispatcher while living in [place] but it has been quite some time since he has seen a Urologist. No established nephrology care here in [place]. Current urination consists of: urinary frequency with [...] started cranberry supplement. Venkatesh Ontiveros MD [address], [place], [address], [facility] 02/27/2023 22:10:59 08/22/2023 text/html HPI Notes: Mr. Ballesteros is a very pleasant 67-year-old male with a history of imperforate anus, solitary kidney, and history of urethral stricture disease requiring multiple dilations. Patient states that his last dilation was about [address] Prabhakar. Was seeing a Gas Plant Dispatcher while living in [place] but it has been quite some time since he has seen a Urologist. No established nephrology care here in [place]. Current urination consists of: urinary frequency with [...] no recent UTIs. Venkatesh Ontiveros MD [address], [place], [address], [facility] 08/22/2023 13:34:58
--- OUTSIDE RECORDS SUMMARY | 2024-01-02 12:48 | XMS_ITS | Clinical Summary ---
Author Name Unknown Organization [facility] Address [place], [place] [address] Care Team Providers Care Hall Porter Name Role Phone Natalie Juárez Aliya GIRON Primary Care Provider [phone] Lexy Kate Herrmann Unavailable [phone] Allergies No known active allergies Medications Medication [...] 0 06/22/2022 Active amLODIPine (NORVASC) 5 mg tabletIndications:Es sential hypertension Take 1 Tablet (5 mg) by mouth once daily. 90 Tablet 3 01/23/2023 Active mirtazapine (REMERON) 7.5 mg tabletIndications:In somnia, idiopathic Take 1 Tablet (7.5 mg) by mouth at bedtime. 90 Tablet 1 09/24/2023 Active pravastatin (PRAVACHOL) 40 mg tabletIndications:Mi xed hyperlipidemia Take 1 Tablet (40 mg) by mouth once daily. 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 TO LAST AT LEAST 30 DAYS. 45 Tablet 2 11/06/2023 Active loperamide (IMODIUM) 2 mg capsuleIndications:C hronic diarrhea Take 2 capsules (4mg) orally with 1st loose stool, then 1 capsule (2mg) with other loose stools. Max 16 mg in 24 hrs. 270 Capsule 1 01/02/2024 Active loperamide (IMODIUM) 2 mg capsuleIndications:C hronic diarrhea Take 2 capsules (4mg) orally with 1st loose stool, then 1 capsule (2mg) with other loose stools. Max 16 mg in 24 hrs. 270 Capsule 1 08/21/2023 4 Discontinue d(Reorder (E-cancel not sent)) Active [...] Encounters Date Type Department Care Team Description 01/01/2024 8:45 AM CDT Office Visit [facility] [address] [place] [address] Sanya Rios, DPM Follow Up (Left bunion) 01/01/2024 Travel 12/04/2023 Medical Messaging [facility] [address] [place] [address] Sir Juárezi Aliya, DO Leg 11/11/2023 2:10 PM CDT Office Visit [facility] [address] [place] [address] Josera Natalie Aliya, DO Leg Pain/problem (R leg pain, felt a pull after moving a case of water - pain present back of thigh); Knee Pain/problem (L knee pain, over compensating after R leg pain/pull? ) 11/11/2023 Travel 11/06/2023 1:00 PM MATERNITY FLOOR SUPERVISOR Phone Office Visit [facility] [address] [facility] [address] [place] [address] Kate Pugh DO Medication Management; Phone Visit ([place]) 11/05/2023 Refill [facility] [address] [place] [address] Natalie Juárez, DO Refill Request (Pravastatin) 10/07/2023 11:25 AM MATERNITY FLOOR SUPERVISOR Office Visit [facility] [address] [place] [address] Natalie Juárez, DO ER Follow up (Constipation, acid reflux - patient stopped Pantoprazole and metamucil ) 10/07/2023 Travel from Last 3 Months Immunizations Name Administration Dates Next Due COVID-19 Vaccine Spikevax (M oderna 50mcg/0.5mL) 12YO+ [id number] Formula PF 06/12/2023 COVID-19 vaccine (Moderna 100mcg/0.5mL) [...] Pressure 120/80 11/11/2023 1:54 PM CDT Pulse 63 01/01/2024 8:48 AM CDT Temperature 36.7 ??C (98.1 ??F) 01/14/2023 9:46 AM CD T Respiratory Rate 18 01/14/2023 9:46 AM CDT Oxygen Saturation 98% 01/01/2024 8:48 AM CDT Inhaled Oxygen Concentration - - Weight 73.2 kg (161 lb 4.8 oz) 01/01/2024 8:48 A M CDT Height 170.7 cm (5' 7.21) 01/14/2023 9:46 AM CD T Body Mass Index 25.11 01/14/2023 9:46 AM CDT Plan of Treatment Upcoming Encounters Date Type Department Care Team (Late st Contact Info) Description 02/04/2024 8:55 AM CDT Office Visit [facility] [address] [place] [address] Natalie Juárez, DO [address] [place] [address] 02/18/2024 12:30 PM CDT Phone Office Visit [facility] [address] [place] [phone] Kate Pugh [address] [facility] [address] [place], [place] [id number] Health Maintenance Due Date Last Done Comments [...] 45-75 06/22/2027 06/22/2022, 01/20/2020 (Completed outside of [facility]), 03/03/2010, Additional history exists Tetanus booster 07/11/2029 07/11/2019, 04/16/2006 Colonoscopy through age 75 03/03/203003/03 (Completed outside of [facility]) Tdap Completed 07/11/2019, 04/16/2006 Hepatitis C screening for ag e 18-79 Completed 01/02/2022 Zoster (shingles) series for age 50+ Completed 08/21/2022, 03/26/2022 AAA screening age 65-74 Completed 09/24/2022 COVID-19 vaccine series Completed 06/12/20, 03/26/2022, 01/17/2021, Additional history exists Procedures Procedure Name Priority Date/Time Associated Diagnosis Comments US ABD AORTA SCREENING Routine 09/24/2022 9:16 AM MATERNITY FLOOR SUPERVISOR Screening for AAA (aortic abdominal aneurysm) LIPID PANEL W REFLEX MEASURED LDL Routine 06/22/2022 11:44 AM CDT Screening cholesterol level ANTI HCV Routine 01/02/2022 10:46 AM CDT Encounter for hepatitis C screening test for low risk patient from Last 3 Months or Most Recently Relevant to Health Maintenance Results * US ABD AORTA SCREENING [[id number]] (09/24/2022 9:16 AM MATERNITY FLOOR SUPERVISOR) Anatomical Region Laterality Modality Abdomen, AORTA Ultrasound 09/24/2022 10:4 1 AM MATERNITY FLOOR SUPERVISOR Impressions 09/24/2022 10:41 AM MATERNITY FLOOR SUPERVISOR Normal sonographic assessment of the abdominal aorta. Dictated by Colin Dumas MD @ Sep 24 2022 10:41AM (Electronically Signed) ?? Narrative 09/24/2022 10:41 AM MATERNITY FLOOR SUPERVISOR For Patients: ??As a result of the [...] Sep 24 2022 10:41AM (Electronically Signed) Natalie Aliya Vaughnrichard * LIPID PANEL W REFLEX MEASURED LDL (06/22/2022 11:44 AM CDT) CHOLESTEROL,TOTAL 189 100 - 199 mg/dL 06/24/2022 3:12 AM CDT [facility] TRIGLYCERIDES 94 <150 mg/dL 06/24/2022 3:12 AM CDT [facility] HDL CHOLESTEROL 70 >40 mg/dL 3:12 AM CDT [facility] NON-HDL CHOLESTEROL 119 <145 mg/dl 06/24/2022 3:12 AM CDT [facility] CHOL/HDL RATIO 2.70 <4.50 06/24/2022 3:12 AM CDT [facility] LDL CHOLESTEROL 100 <=130 mg/dL 06/24/2022 3:12 AM CDT [facility] VLDL CHOLESTEROL 19 <=30 mg/dL 06/24/2022 3:12 AM CDT [facility] PROVIDER ORDERED STATUS RANDOM 06/24/2022 3:12 AM CDT [facility] Blood BLOOD SPECIMEN / Unknown Venipuncture / Unknown 06/22/2022 11:44 AM CDT 06/22/2022 11:44 AM CDT Natalie Aliya Marquita GIRON [facility] [address] [place] [address], * ANTI HCV (01/02/2022 10:46 AM CDT) HEPATITIS C ANTIBODY Non-React asia Non-React asia 01/02/2022 6:27 PM CDT [facility] Comment:Antibodies to HCV no t detected; does not exclude the possibility of exposure to HCV. Blood BLOOD SPECIMEN / Unknown Venipuncture / Unknown 01/02/2022 10:46 AM CDT 01/02/2022 10:47 AM CDT Natalie [employer] Marquita GIRON SEND OUTS [facility] [address] [place] [address], from Last 3 Months or Most Recently Relevant to Health Maintenance Care Teams Hall Porter Relationship Specialty Start Date End Date Natalie Juárez DO [address] [place] [address] PCP - General Family Practice 03/01/21 Kate Pugh DO [address] [place] [address] Psychiatry 02/04/23
== END 2024-01-02 13:45 | disposition home or self-care (01) ==
PROVIDERS: Emergency Provider Family Medicine; PCP Family Medicine
DX: R05.8 Other specified cough (principal)
CPT/HCPCS: 71046; 99283

== ENCOUNTER 2024-03-30 11:43 | Emergency (ER) | payer MEDICARE, OTHER, SELFPAY ==
[2024-03-30 11:56] VITALS: BP 133/90; PULSE 68; RESP 18; TEMP 36.5; O2SAT 98
--- NOTE | 2024-03-30 12:31 | ED.SKABFB ---
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 He has noted there for couple days, no rales mass noted. He has had previous rectal surgery. Denies any significant new discharge although he says he always leaks a little bit from around his rectum. No fevers or chills he is eating and drinking otherwise normally. Related Data Home Medications ?Medication ?Instructions ?Recorded ?Confirmed clonazepam 0.5 mg tablet 0.5 mg PO DAILY 12/02/22 03/30/24 mirtazapine 7.5 mg tablet 7.5 mg PO QPM 12/02/22 03/30/24 pravastatin 40 mg tablet 40 mg PO DAILY 12/02/22 03/30/24 amlodipine 5 mg tablet 5 mg PO DAILY 03/11/23 03/30/24 aspirin 81 mg tablet,delayed 81 mg PO DAILY 09/06/23 03/30/24 release (Adult Aspirin Regimen) Previous Rx's ?Medication ?Instructions ?Recorded pantoprazole 20 mg tablet,delayed 20 mg PO DAILY #20 tabs 10/01/23 release (Protonix) cephalexin 500 mg capsule 500 mg PO TID #21 caps 03/30/24 Allergies Allergy/AdvReac Type Severity Reaction Status Date / Time No Known Drug Allergies Allergy Verified 03/30/24 12:03 Review of Systems Status of ROS: Reports: 6 or more systems reviewed and unremarkable except as noted in History and below PFSH PFS Social History Smoking Status: Never smoker Do you use any of these nicotine containing products: None How often do you have a drink containing alcohol: never How often do you have six or more drinks on one occasion: Never AUDIT-C Alcohol total score: 0 Non-prescribed substance use: denies use service: No Exam Narrative: Exam Narrative: On examination just above his a scar from his previous surgery there is a little redness within the cleft, no for mass, it is more irritation than anything. I definitely do not see evidence of a significant pilonidal abscess. The rectal area looks normal underneath. And this is approximately 5-6 cm away. Not getting a feeling this is a rectal abscess. Const: Vital Signs, click to edit/add: Vital Signs - 24 hr 03/30/24 11:56 Temperature 97.7 F Pulse Rate [Pulse Oximeter] 68 Respiratory Rate 18 Blood Pressure [Ri ght Upper Arm] 133/90 H Pulse Oximetry 98 Oxygen Delivery Me thod Room Air Documenting provider has reviewed patient's vital signs: yes Course Vital Signs Vital signs: Initial Vital Signs Temperature 97.7 F 03/30/24 11:56 Temperature Source Temporal Artery Scan 03/30/24 11:56 Pulse Rate 68 03/30/24 11:56 Respiratory Rate 18 03/30/24 11:56 Blood Pressure 133/90 H 03/30/24 11:56 Blood Pressure Mean 104 03/30/24 11:56 Blood Pressure Position Sitting 03/30/24 11:56 Pulse Oximetry 98 03/30/24 11:56 Oxygen Delivery Method Room Air 03/30/24 11:56 Vital Signs Temperature 97.7 F 03/30/24 11:56 Pulse Rate 68 03/30/24 11:56 Respiratory Rate 18 03/30/24 11:56 Blood Pressure 133/90 H 03/30/24 11:56 Pulse Oximetry 98 03/30/24 11:56 Oxygen Delivery Method Room Air 03/30/24 11:56 Temperature 97.7 F 03/30/24 11:56 Pulse Rate 68 03/30/24 11:56 Respiratory Rate 18 03/30/24 11:56 Blood Pressure 133/90 H 03/30/24 11:56 Pulse Oximetry 98 03/30/24 11:56 Oxygen Delivery Method Room Air 03/30/24 11:56 MDM - Skin/Abscess/Foreign Bdy MDM Narrative Medical decision making narrative: I discussed with him that this probably is a little irritation applying bacitracin couple times a day might just help him enough here that he will need antibiotics, although the antibiotics can be both anti-inflammatory and anti bactericidal. I gave him a prescription asked him to only fill in a couple days if he is worse. Otherwise we went over signs and symptoms where he will come back. Medical Records Attestation: I reviewed the patient's medical records. Discharge Plan Discharge Clinical Impression: Pilonidal cyst of cleft Patient Disposition: Home, Self-Care Condition: Stable Instructions: Pilonidal Cyst (ED) Additional Instructions: Home rest I would put some bacitracin on here Luciano, and then if it is not improved in a couple days try using the Keflex, I think there is just some irritation where the crack is there is no formal abscess there. But watch this have a gets larger, more painful then come back in for reassessment. If you do decide to take the antibiotics please use a lot of probiotics with this, yogurt kimchi, and tablets. Activity Level: Light activity Prescriptions: New cephalexin 500 mg capsule 500 mg PO TID Qty: 21 0RF No Action pravastatin 40 mg tablet 40 mg PO DAILY clonazepam 0.5 mg tablet 0.5 mg PO DAILY mirtazapine 7.5 mg tablet 7.5 mg PO QPM aspirin [Adult Aspirin Regimen] 81 mg tablet,delayed release (DR/EC) 81 mg PO DAILY pantoprazole [Protonix] 20 mg tablet,delayed release (DR/EC) 20 mg PO DAILY Qty: 20 2RF amlodipine 5 mg tablet 5 mg PO DAILY Patient Comments: TAKE 1 TABLET (5 MG) BY MOUTH ONCE DAILY. Follow Up/Referrals: Natalie Juárez DO [Primary Care Provider] - Stand Alone Forms: [employer] Info Instructions
--- OUTSIDE RECORDS SUMMARY | 2024-03-30 12:35 | XMS_ITS | Data Portability ---
Author Organization [facility], [facility] Address [address] [place] [address] Care Team Providers Care Family Law Legal Assistant Name Role Phone MARINE HAAS Primary Care [...] recorded. Lab urinalysis , dipstick 2022 023 [email or web address] [facility], [address], [place], [address], 12:14:01 urinalysis , dipstick 2022 023 [email or web address] [facility], [address], [place], [address], 15:08:08 Referral None recorded. Procedures None recorded. Surgeries None recorded. Imaging None recorded. Medication Orders None recorded. Patient TargetsNo targets recorded. Patient InstructionsNo instructions recorded. Reason for Referral None Reported. Results Created Date Observation Date Name Description Value Unit Range Abnormal Flag LastModifiedBy Organization Detail LastModifiedTime 09/27/1909/27/2022 urina lysis , dipst ick Sp [place]-Stat us 1.005 Not Available [facility] [address], [place], [address], 09/27/2022 12:12:58 09/27/19 23 09/27/2022 urina lysis , dipst ick pH-Status 6.0 Not Available [facility] [address], [place], [address], 09/27/2022 12:12:58 09/27/1909/27/2022 urina lysis , dipst ick Nitrates-Sta tus negati ve Not Available [facility] [address], [place], [address], 09/27/2022 12:12:58 09/27/1909/27/2022 urina lysis , dipst ick Blood-Status Trace Not Available [facility] [address], [place], [address], 09/27/2022 12:12:58 09/27/1909/27/2022 urina lysis , dipst ick Leuko-Status Negati ve Not Available [facility] [address], [place], [address], 09/27/2022 12:12:58 02/28/20 23 02/27/2023 urina lysis , dipst ick Color-Status Yellow Not Available [facility] [address], [place], [address], 02/27/2023 15:07:16 02/28/20 23 02/27/2023 urina lysis , dipst ick Clarity-Stat us Clear Not Available [facility] [address], [place], [address], 02/27/2023 15:07:16 02/28/20 23 02/27/2023 urina lysis , dipst ick Glucose-Stat us Negati ve Not Available [facility] [address], [place], [address], 02/27/2023 15:07:16 02/28/20 23 02/27/2023 urina lysis , dipst ick Nitrates-Sta tus negati ve Not Available [facility] [address], [place], [address], 02/27/2023 15:07:16 02/28/20 23 02/27/2023 urina lysis , dipst ick Blood-Status Negati ve Not Available [facility] [address], [place], [address], 02/27/2023 15:07:16 02/28/20 23 02/27/2023 urina lysis , dipst ick Leuko-Status Negati ve Not Available [facility] [address], [place], [address], 02/27/2023 15:07:16 10/02/19 23 09/27/2022 bladd er scan (PROC ) No observ ation record ed. Not Available 02/27/2023 22:09:27 03/01/20 23 02/27/2023 bladd er scan (PROC ) No observ ation record ed. BARCODE Not Available 03/01/2023 15:39:28 Result Notes None recorded. Procedures Surgical History Date Name Laterality Status Provider Name and Address Organization Details Recorded Time 3 Bladder Scan completed Pilar marcelo [facility] 08/22/2023 10:45:31 3 UroCuff completed Erma marcelo [facility] 08/08/2023 16:46:48 3 Bladder Scan completed Erma marcelo [facility] 08/08/2023 16:22:41 3 Bladder Scan completed Romie amrcelo [facility] 02/27/2023 15:07:12 3 Bladder Scan completed Venkatesh Ontiveros MD [address] [place] [address], [id number] [place] [address] Urology 09/27/2022 12:46:00 0 colonoscopy completed Pilar marcelo [facility] 08/22/2023 10:42:53 Imaging Results Imaging Date Name Status LastModified by Organiz ation Details LastModified Time 09/27/2022 bladder scan (PROC) completed Information not [...] Updated DateTime 09/27/2022 168.91 cm 24.6 kg/m2 82539.82 g Miriam Rae [facility] 09/27/2022 12:18:06 Date Recorded Body height Body mass index (BMI) Body weight Provider Name and Address Organization Details Last Updated DateTime 02/27/2023 168.91 cm 24.6 kg/m2 15088.82 g Romie Santos [facility] 02/27/2023 15:03:45 Date Recorded Body height Body mass index (BMI) Body weight Provider Name and Address Organization Details Last Updated DateTime 08/22/2023 168.91 cm 26.2 kg/m2 67449.74 g Pilar Smith [facility] 08/22/2023 10:42:08 Social History Question Answer Notes LastModified by Organizat ion Details LastModified Time Tobacco Smoking Status [facility] 12:24:21 What Is Your Level Of Alcohol Consumption? None Information not available 02/27/2023 What Is Your Level Of Caffeine Consumption? Moderate Information not available 02/27/2023 Are You Currently Employed? No Information not available 02/27/2023 When Did You Quit Smoking? 1-5yearssince lastcigarette [email or web address] Information not available 08/22/2023 Recreational Drug Use No Information not available 02/27/2023 What Was The Date Of Your Most Recent Tobacco Screening? 08/22/2023 [email or web address] Information not available 08/22/2023 What Is Your Relationship Status? Single Information not available 02/27/2023 Do You Use Any Illicit Or Recreational Drugs? No Information not available 02/27/2023 How Many Years Have You Smoked Tobacco? 30 Information not available 02/27/2023 Sex: Unknown Functional Status None recorded. Mental Status None [...] PF, 50 mcg/0.5 mL 06/12[facility]2023 [facility] 10:42:13 Influenza, split virus, quadrivalent, PF 06/12/2023 [facility] 10:42:13 zoster recombinant 03/26/2022 completed [facility] 07/03/2023 17:11:29 zoster recombinant [facility]/21/2022 [facility] 17:11:29 COVID-19, mRNA, LNP-S, PF, 100 mcg/0.5mL dose or 50 mcg/0.25mL dose 12/21/2020 completed [facility] 07/03/2023 17:11:29 COVID-19, mRNA, LNP-S, PF, 100 mcg/0.5mL dose or 50 mcg/0.25mL dose 01/17/2021 [facility]23 17:11:29 COVID-19, mRNA, LNP-S, PF, 100 mcg/0.5mL dose or 50 mcg/0.25mL dose 03/26/2022 [facility]2023 17:11:29 COVID-19, mRNA, LNP-S, PF, 100 mcg/0.5mL dose or 50 mcg/0.25mL dose 08/17/2021 completed [facility] 07/03/2023 17:11:29 COVID-19, mRNA, LNP-S, bivalent, PF, 50 mcg/0.5 mL or 25mcg/0.25 mL dose 07/11/2022 completed [facility] 07/03/2023 17:11:29 Tdap 07/11/2019 completed [facility] 07/03/2023 17:11:29 Influenza, split virus, trivalent, preservative 06/14/2008 completed [facility] 07/03/2023 17:11:29 Past Encounters Encounter ID Performer Location Encounter Start Date Encounter Closed Date Diagnosis/Indication Diagnosis SNOMED-CT Code [id number] MD [facility] [address] [place] [address] 09/27/2022 11:56:38 10/01/2022 14:14:58 Urethral stricture 20248689 Recurrent urinary tract infection [id number] Venkatesh Ontiveros MD [facility] [address] [place] [address] 02/27/2023 14:11:30 03/07/2023 08:28:19 Urethral stricture 07804903 Recurrent urinary tract infection [id number] Erma Alves [facility] [address] [place] [address] 08/08/2023 10:50:58 08/16/2023 11:25:54 Urethral stricture [id number] MD [facility] [address] [place] [address] 08/22/2023 10:36:02 09/04/2023 10:08:51 Urethral stricture [id number] Recurrent urinary tract infection [id number] Health Concerns Section Related Observation LastModified by Organization Detai ls LastModified Time None Recorded Concern Status LastModified by Organization Details LastModified Time None Recorded Advance Directives Directive None Recorded Payers Encounter Date Sequence Insurance Name Policy Number Policy Bruno Covered Member ID Bruno Member ID Guarantor Name 09/27/2022 1 [place] [facility] Jerry Ballesteros [id number] Jerry Ballesteros 02/27/2023 1 [place] [facility] Jerry Ballesteros [id number] Jerry Greenz 08/08/2023 1 [place] [facility] Jerry Ballesteros [id number] Jerry Greenz 08/22/2023 1 [place] [facility] Jerry Ballesteros [id number] Jerry Ballesteros Notes Date Note Type Note Provider Name and Address Organization Details Recorded Time 09/27/2022 text/html HPI Notes: Mr. Ballesteros is a very pleasant 67-year-old male with a history of imperforate anus, solitary kidney, and history of urethral stricture disease requiring multiple dilations. Patient states that his last dilation was about 12 [address] Dr[address] Prabhakar. Was seeing a Ui Programmer while living in [place] but it has been quite some time since he has seen a Urologist. No established nephrology care here in [place]. Current urination consists of: urinary frequency with [...] more than usual. Venkatesh Ontiveros MD [address], [place], [address], [facility] 09/27/2022 12:46:39 02/27/2023 text/html HPI Notes: Mr. Ballesteros is a very pleasant 67-year-old male with a history of imperforate anus, solitary kidney, and history of urethral stricture disease requiring multiple dilations. Patient states that his last dilation was about [address] Prabhakar. Was seeing a Ui Programmer while living in [place] but it has been quite some time since he has seen a Urologist. No established nephrology care here in [place]. Current urination consists of: urinary frequency with [...] started cranberry supplement. Venkatesh Ontiveros MD [address], [place], [address], [facility] [place] [facility] 02/27/2023 22:10:59 08/22/2023 text/html HPI Notes: Mr. Ballesteros is a very pleasant 67-year-old male with a history of imperforate anus, solitary kidney, and history of urethral stricture disease requiring multiple dilations. Patient states that his last dilation was about [address] Prabhakar. Was seeing a Ui Programmer while living in [place] but it has been quite some time since he has seen a Urologist. No established nephrology care here in [place]. Current urination consists of: urinary frequency with [...] no recent UTIs. Venkatesh Ontiveros MD [address], [place], [address], [facility] 08/22/2023 13:34:58
--- OUTSIDE RECORDS SUMMARY | 2024-03-30 12:35 | XMS_ITS | Clinical Summary ---
Author Organization [facility] Address [place], [place] [address] Care Team Providers Care Ceo & Board Director Name Role Phone Natalie Juárez Primary Care Provider [phone] LexyKate Unavailable [phone] Allergies No known active allergies Medications Medication [...] mouth once daily. 0 06/22/2022 Active pravastatin (PRAVACHOL) 40 mg tabletIndications:Mi xed hyperlipidemia Take 1 Tablet (40 mg) by mouth once daily. 90 Tablet 2 11/05/2023 Active amLODIPine (NORVASC) 5 mg tabletIndications:Es sential hypertension TAKE 1 TABLET (5 MG) BY MOUTH ONCE DAILY. 90 Tablet 2 01/09/2024 Active hydrocortisone 2.5% creamIndications:Faye irritation Apply topically to affected area(s) two times daily. 30 g 02/04/2024 Active loperamide (IMODIUM) 2 mg capsuleIndications:C hronic diarrhea Take 2 capsules (4mg) orally with 1st loose stool, then 1 capsule (2mg) with other loose stools. Max 16 mg in 24 hrs. 270 Capsule 1 02/04/2024 Active clonazePAM (KLONOPIN) 0.5 mg tabletIndications:Ge neralized anxiety disorder with panic attacks TAKE 1 TABLET (0.5 MG) BY MOUTH ONCE DAILY and second dose 0.5mg (1 tab) IF NEEDED FOR ANXIETY. TO LAST AT LEAST 30 DAYS. 45 Tablet 5 02/18/2024 Active mirtazapine (REMERON) 7.5 mg tabletIndications:In somnia, idiopathic Take 1 Tablet (7.5 mg) by mouth at bedtime. 90 Tablet 1 02/18/2024 Active fluticasone (50 mcg per actuation) nasal solution (FLONASE)Indications :Metallic taste Inhale 2 Sprays to both nostrils once daily. 16 g 1 03/10/2024 Active amoxicillin-clavulan ate 875-125 mg tablet (AUGMENTIN)Indicatio ns:Acute non-recurrent maxillary sinusitis Take 1 Tablet by mouth two times daily with meals for 7 days. 14 Tablet 03/02/2024 predniSONE (DELTASONE) 20 mg tabletIndications:Ac kaiden non-recurrent maxillary sinusitis Take 1 Tablet (20 mg) by mouth once daily with a meal for 5 days. 5 Tablet 03/02/2024 4 Active Problems Problem Noted Date Diagnosed Date [...] Encounters Date Type Department Care Team Description 03/10/2024 8:20 AM CDT Office Visit [facility] [address] [place] [address] Luis Felipe Acosta, Sinus Problem (Just finished prednisone and abx yesterday - would like recheck of the face) 03/10/2024 Travel 03/02/2024 1:50 PM CDT Office Visit [facility] [address] [place] [address] Cristy Jordan PA Follow Up (Still with no taste-not much smell-had stopped his nasal spray to see if that was the cause but still the same as before-has a burnt metallic taste in his mouth) 03/02/2024 Travel 02/24/2024 2:40 PM CDT Office Visit [facility] [address] [place] [address] Carolyn Reyes MD Concerns (Lost sense of taste about 3 days ago. ) 02/24/2024 Travel 02/20/2024 Telephone [facility] [address] [place] [address] Natalie Juárez DO Error-please disregard 02/18/2024 12:30 PM CDT Phone Office Visit [facility] [address] [place] [phone] Kate Pugh DO Medication Management; Phone Visit (DC) 02/04/2024 8:55 AM CDT Office Visit [facility] [address] [place] [address] Natalie Juárez DO Medicare ANNUAL (subsequent) Visit (68 year old male); Sinus Problem (Loss of sense of smell since bronchitis) 02/04/2024 Travel 01/17/2024 10:50 AM CDT Office Visit [facility] [address] [place] [address] Andree Paulson MD Derm Problem (Spots on forehead, 3 days) 01/17/2024 Travel 01/08/2024 Refill [facility] [address] [place] [address] Natalie Juárez, DO Refill Request (Amlodipine) 01/01/2024 8:45 AM CDT Office Visit [facility] [address] [place] [address] Sanya Rios, DPM Follow Up (Left bunion) 01/01/2024 Travel from Last 3 Months Immunizations Name Administration Dates Next Due COVID-19 Vaccine Spikevax (M oderna 50mcg/0.5mL) 12YO+ 1252-1325 Formula PF 06/12/2023 COVID-19 vaccine (Moderna 100mcg/0.5mL) PF, MDV 03/26/2022,08/17/2021,01/17/2021, 021 COVID-19 vaccine (Moderna 50mcg/0.5mL) 12YO+ BIVALENT PF, MDV 07/11/2022 Covid-19 Vaccine (Unspecified) 01/17/2021,2020 Hepatitis B (Adult) [...] Answer Date Recorded PHQ-2 TOTAL SCORE 1 02/04/2024 Social Connections Answer Date Recorded Frequency of [...] Sign Reading Time Taken Comments Blood Pressure 131/91 03/10/2024 8:31 AM CDT Pulse 63 03/10/2024 8:31 AM CDT Temperature 36.7 ??C (98.1 ??F) 01/14/2023 9:46 AM CD T Respiratory Rate 18 01/14/2023 9:46 AM CDT Oxygen Saturation 98% 03/10/2024 8:31 AM CDT Inhaled Oxygen Concentration - - Weight 71.1 kg (156 lb 12.8 oz) 03/10/2024 8:31 AM CDT Height 170.7 cm (5' 7.21) 02/04/2024 9:08 AM CD T Body Mass Index 24.41 02/04/2024 9:08 AM CDT Plan of Treatment Upcoming Encounters Date Type Department Care Team (Late st Contact Info) Description 04/10/2024 10:40 AM CDT Office Visit [facility] [address] [facility] [address] [place], [place] [phone] Minna Vora PA [address] [place] [address] 04/23/2024 1:15 PM CDT Office Visit [facility] [address] [place] [phone] Lucian Owens MD [address] [facility] [address] [place] [address] 06/15/2024 11:15 AM CDT Orders Only [facility] [address] [place] [address] Lab, [place] 07/13/2024 12:40 PM INSOLE STIFFENER Office Visit [address] [phone] Billy Sanon MD [address] [place], [place] [phone] Health Maintenance Due Date Last Done Comments Pneumococcal series for age 65+ (1 of 1 - PCV) 2022 COVID-19 vaccine series (2022-24 season) 2023 06/12/2023, 07/11/2022, 03/26/2022, Additional history exists Influenza for age 65+ 05/03/2024 06/12/2023, 008 BMI (ht and wt on same day) for age 18+ 02/03/2025 02/04/2024, 01/14/2023, 01/08/2023, Additional history exists Depression screening for age 12+ 02/03/2025 02/04/2024, 11/11/2023, 11/06/2023, Additional history exists Medicare Wellness for age 65+ 02/04/2025, 01/08/2023, 01/02/2022 Lipids for age 45-75 02/03/2029 02/04/2024, 06/22/2022, 01/20/2020 (Completed outside of [facility]), Additional history exists Tetanus booster 07/11/2029 07/11/2019, 04/16/2006 Colonoscopy through age 75 03/03/203003/03 (Completed outside of [facility]) Tdap Completed 07/11/2019, 04/16/2006 Hepatitis C screening for ag e 18-79 Completed 01/02/2022 Zoster (shingles) series for age 50+ Completed 08/21/2022, 03/26/2022 AAA screening age 65-74 Completed 09/24/2022 Procedures Procedure Name Priority Date/Time Associated Diagnosis Comments COVID-19 MOLECULAR Routine 02/24/2024 3: 30 PM CDT Loss of taste PSA TOTAL SCREEN Routine 02/04/2024 9:53 AM CDT Prostate cancer screening LIPID PANEL W REFLEX MEASURED LDL Routine 02/04/2024 9:53 AM CDT Hyperlipidemia, unspecified hyperlipidemia type BASIC METABOLIC PANEL Routine 02/04/2024 9:53 AM CDT Essential hypertension US ABD AORTA SCREENING Routine 09/24/2022 9:16 AM INSOLE STIFFENER Screening for AAA (aortic abdominal aneurysm) ANTI HCV Routine 01/02/2022 10:46 AM CDT Encounter for hepatitis C screening test for low risk patient from Last 3 Months or Most Recently Relevant to Health Maintenance Results * COVID-19 MOLECULAR (02/24/2024 3:30 PM CDT) COVID 19 [facility] MOLECULAR Negative Negative 02/25/2024 2:15 AM CDT [facility] TESTING LABORATORY [facility] 02/25/2024 2:15 AM CDT [facility] Comment:Specimen submitted t o [facility] for testing. Other SPECIMEN FROM NASAL FOSSAE / Unknown Non-Blood / Unknown 02/24/2024 3:30 PM CDT 02/24/2024 3:45 PM CDT Narrative [facility] - 02/25/2024 2:15 AM CDT All PCR tests are subject to false negative result due to variability in viral load and collection technique. A negative result does not rule out a SARS-CoV-2 infection. Clinical correlation required. Carolyn Reyes MD [employer] GY Performing Organization Address City/[facility]/ZIP Co de Phone Number [facility] [address] [place] [phone], [place] * LIPID PANEL W REFLEX MEASURED LDL (02/04/2024 9:53 AM CDT) [facility] CHOLESTEROL,TOTAL 198 100 - 199 mg/dL 02/04/2024 6:48 PM CDT [facility] Comment: Cholesterol, Total Reference Ranges Desirable <200 mg/dL Borderline 200-239 mg/dL High >=240 mg/dL TRIGLYCERIDES 119 <150 mg/dL 02/04/2024 6:48 PM CDT [facility] HDL CHOLESTEROL 67 >40 mg/dL 6:48 PM CDT [facility] NON-HDL CHOLESTEROL 131 <145 mg/dl 02/04/2024 6:48 PM CDT [facility] CHOL/HDL RATIO 2.96 <4.50 02/04/2024 6:48 PM CDT [facility] LDL CHOLESTEROL 107 <=130 mg/dL 02/04/2024 6:48 PM CDT [facility] VLDL CHOLESTEROL 24 <=30 mg/dL 02/04/2024 6:48 PM CDT [facility] PROVIDER ORDERED STATUS RANDOM 02/04/2024 6:48 PM CDT [facility] Blood BLOOD SPECIMEN / Unknown Venipuncture / Unknown 02/04/2024 9:53 AM CDT 02/04/2024 9:53 AM CDT Natalie Juárez DO CHEMISTRY Performing Organization Address [facility]/ZIP Co de Phone Number [facility] [address] [place] [address], [place] * (ABNORMAL) BASIC METABOLIC PANEL (02/04/2024 9:53 AM CDT) SODIUM 138 136 - 145 mmol/L 02/04/2024 6:48 PM CDT [facility] POTASSIUM 4.1 3.5 - 5.1 mmol/L 02/04/2024 6:48 PM CDT [facility] CHLORIDE 102 98 - 107 mmol/L 02/04/2024 6:48 PM CDT [facility] CO2,TOTAL 22 22 - 29 mmol/L 02/04/2024 6:48 PM CDT [facility] ANION GAP 14 5 - 18 02/04/2024 6:48 PM CDT [facility] GLUCOSE 100(H) 70 - 99 mg/dL 02/04/2024 6:48 PM CDT [facility] CALCIUM 9.3 8.8 - 10.2 mg/dL 02/04/2024 6:48 PM CDT [facility] BUN 22 8 - 23 mg/dL 02/04/2024 6:48 PM CDT [facility] CREATININE 1.51(H) 0.70 - 1.20 mg/dL 02/04/2024 6:48 PM CDT [facility] BUN/CREAT RATIO 15 10 - 20 6:48 PM CDT [facility] eGFR 51(L) >90 mL/min/1.7 3m2 02/04/2024 6:48 PM CDT [facility] Comment:As of 2021, eG FR is calculated by the CKD-EPI creatinine equation without race adjustment. ??eGFR can be influenced by muscle mass, exercise, and diet. ??The reported eGFR is an estimation only and is only applicable if the renal function is stable. Blood BLOOD SPECIMEN / Unknown Venipuncture / Unknown 02/04/2024 9:53 AM CDT 02/04/2024 9:53 AM CDT Natalie Aliya Shaqra DO CHEMISTRY Performing Organization Address [facility]/ZIP Co de Phone Number [facility] [address] [place] [address], [place] * PSA TOTAL SCREEN (02/04/2024 9:53 AM CDT) PSA TOTAL (SCREEN) 1.50 <4.00 ng/mL 02/04/2024 6:48 PM CDT [facility] Blood BLOOD SPECIMEN / Unknown Venipuncture / Unknown 02/04/2024 9:53 AM CDT 02/04/2024 9:53 AM CDT Narrative [facility] - 02/04/2024 6:48 PM CDT The test method changed on 02/26/2023. If this test has been used for serial monitoring, rebaselining is recommended. Rebaselining consists of 2 measurements, collected 3-6 weeks apart. The [employer] Elecsys total PSA assay is an electrochemiluminescence immunoassay ECLIA performed on the Nick Sarai e immunoassay analyzers. Values obtained with different assay methods may be different and cannot be used interchangeably. Natalie [employer] [facility] Performing Organization Address [facility] Co de Phone Number [facility] [address] [place] [phone], [place] * US ABD AORTA SCREENING [[id number]] (09/24/2022 9:16 AM INSOLE STIFFENER) Anatomical Region Laterality Modality Abdomen, AORTA Ultrasound 09/24/2022 10:4 1 AM INSOLE STIFFENER Impressions 09/24/2022 10:41 AM INSOLE STIFFENER Normal sonographic assessment of the abdominal aorta. Dictated by Colin Dumas MD @ Sep 24 2022 10:41AM (Electronically Signed) ?? Narrative 09/24/2022 10:41 AM INSOLE STIFFENER For Patients: ??As a result of the Century Cures Act, medical imaging exams and procedure [...] (Electronically Signed) Natalie Juárez DO US * ANTI HCV (01/02/2022 10:46 AM CDT) HEPATITIS C ANTIBODY Non-React asia Non-React asia 01/02/2022 6:27 PM CDT [email or web address] Comment:Antibodies to HCV no t detected; does not exclude the possibility of exposure to HCV. Blood BLOOD SPECIMEN / Unknown Venipuncture / Unknown 01/02/2022 10:46 AM CDT 01/02/2022 10:47 AM CDT Natalie Juárez DO SEND OUTS [email or web address] [address] [place] [address], from Last 3 Months or Most Recently Relevant to Health Maintenance Care Teams Ceo & Board Director Relationship Specialty Start Date End Date Natalie Juárez DO [address] [place] [address] PCP - General Family Practice 03/01/21 Kate Pugh DO [address] [place] [address] Psychiatry 02/04/23
== END 2024-03-30 12:52 | disposition home or self-care (01) ==
LOC: ED 12:31
PROVIDERS: Emergency Provider Family Medicine; PCP Family Medicine
DX: L05.91 Pilonidal cyst without abscess (principal)
CPT/HCPCS: 99283

== ENCOUNTER 2024-03-31 12:34 | Emergency (ER) | payer MEDICARE, OTHER, SELFPAY ==
[2024-03-31 12:47] VITALS: BP 138/79; PULSE 70; RESP 18; TEMP 36.3; O2SAT 99; BMI 25.1
--- NOTE | 2024-03-31 13:21 | ED.GENADULT ---
HPI - General Adult General Date Seen: 03/31/24 Chief complaint: Laceration/Wound Stated complaint: wound hurting more Time Seen by Provider: 03/31/24 13:21 History of Present Illness HPI narrative: 68-year-old gentleman presents to the ER today for re-evaluation of a wound on his sacrum. He was seen in the ER yesterday by Dr. Brown. He had a bump on his left gluteal cleft, just off of the midline for a couple of days. His exam showed redness adjacent to his scar from his previous surgery. It seemed 5-6 cm away from his rectum, likely not a perirectal abscess. Diagnosed pilonidal cyst. Treated with topical bacitracin. He says that since yesterday is out ongoing discomfort in the top of his gluteal cleft. He feels like the lump is still there. He came back just to get it rechecked. He is not sure that he is doing the right thing to make it better. He is not sure that the prescription for cephalexin (which is 3 times daily) is correct. Typically he says when he is on antibiotics there twice per day. He has not had any fever. Bowel movements are normal. He has a tendency towards diarrhea so takes lot of Imodium. He has not had any BM for 2 days. No urinary symptoms. No other rashes. Related Data Home Medications ?Medication ?Instructions ?Recorded ?Confirmed clonazepam 0.5 mg tablet 0.5 mg PO DAILY 12/02/22 03/30/24 mirtazapine 7.5 mg tablet 7.5 mg PO QPM 12/02/22 03/30/24 pravastatin 40 mg tablet 40 mg PO DAILY 12/02/22 03/30/24 amlodipine 5 mg tablet 5 mg PO DAILY 03/11/23 03/30/24 aspirin 81 mg tablet,delayed 81 mg PO DAILY 09/06/23 03/30/24 release (Adult Aspirin Regimen) Previous Rx's ?Medication ?Instructions ?Recorded pantoprazole 20 mg tablet,delayed 20 mg PO DAILY #20 tabs 10/01/23 release (Protonix) cephalexin 500 mg capsule 500 mg PO TID #21 caps 03/30/24 Allergies Allergy/AdvReac Type Severity Reaction Status Date / Time No Known Drug Allergies Allergy Verified 03/31/24 15:14 PFSH PFSH Social History Smoking Status: Never smoker Do you use any of these nicotine containing products: None How often do you have a drink containing alcohol: never How often do you have six or more drinks on one occasion: Never AUDIT-C Alcohol total score: 0 Non-prescribed substance use: denies use service: No Exam Narrative: Exam Narrative: Constitutional: Appears well-developed and well-nourished. Alert. Conversant. Non toxic. HENT: Head: Atraumatic. Nose: Nose normal. Mouth/Throat: Oral mucosa is clear and moist. no trismus. Eyes: Conjunctivae normal. EOM normal. Pupils equal, round, and reactive to light. No scleral icterus. Neck: Normal range of motion. Neck supple. No tracheal deviation present. Cardiovascular: Normal rate, regular rhythm. No gallop. No friction rub. No murmur heard. Symmetric radial artery pulses Pulmonary/Chest: Effort normal. No stridor. No respiratory distress. No wheezes. No rales. No rhonchi . No tenderness. Abdominal: Soft. Bowel sounds normal. No distension. No mass. No tenderness. No rebound. No guarding. Rectal: Normal external rectum. No rectal tone. I do not see any perirectal masses, abscesses, hemorrhoids, fistula is. He does have some postsurgical changes from the tissue in the distal portion of the gluteal cleft near the rectum. Near the superior end of the rectum, probably 6 cm above the rectum there is a 2 cm linear area of skin breakdown in the midline. This appears to be a macerated fissure between the buttocks at the top end of the rectum. The macerated skin, which exposes some of the dermis, is pink but there is not really any surrounding erythema. There is a palpable pea-sized firm nodule just barely to the right of this which could possibly be a palpated lump on the posterior sacrum or could potentially be some firm indurated tissue. No definite fluctuance. No crepitus or gas in the soft tissue. I do not see any other draining fistula tracks. Musculoskeletal: RUE: Normal range of motion. No tenderness. No deformity LUE: Normal range of motion. No tenderness. No deformity RLE: Normal range of motion. No edema. No tenderness. No deformity LLE: Normal range of motion. No edema. No tenderness. No deformity Neurological: Alert and oriented to person, place, and time. Normal strength. CN II-VII intact. No sensory deficit. GCS eye subscore is 4. GCS verbal subscore is 5. GCS motor subscore is 6. Normal coordination Skin: Skin is warm and dry. No rash noted. No pallor. Normal capillary refill. Psychiatric: Normal mood. Normal affect. Const: Vital Signs, click to edit/add: Vital Signs - 24 hr 03/31/24 12:47 Temperature 97.3 F L Pulse Rate [Right Pulse Oximeter] 70 Respiratory Rate 18 Blood Pressure [Ri ght Upper Arm] 138/79 Pulse Oximetry 99 Oxygen Delivery Me thod Room Air Course Vital Signs Vital signs: Initial Vital Signs Temperature 97.3 F L 03/31/24 12:47 Temperature Source Temporal Artery Scan 03/31/24 12:47 Pulse Rate 70 03/31/24 12:47 Respiratory Rate 18 03/31/24 12:47 Blood Pressure 138/79 03/31/24 12:47 Blood Pressure Mean 98 03/31/24 12:47 Blood Pressure Position Sitting 03/31/24 12:47 Pulse Oximetry 99 03/31/24 12:47 Oxygen Delivery Method Room Air 03/31/24 12:47 Vital Signs Temperature 97.3 F L 03/31/24 12:47 Pulse Rate 70 03/31/24 12:47 Respiratory Rate 18 03/31/24 12:47 Blood Pressure 138/79 03/31/24 12:47 Pulse Oximetry 99 03/31/24 12:47 Oxygen Delivery Method Room Air 03/31/24 12:47 Temperature 97.3 F L 03/31/24 12:47 Pulse Rate 70 03/31/24 12:47 Respiratory Rate 18 03/31/24 12:47 Blood Pressure 138/79 03/31/24 12:47 Pulse Oximetry 99 03/31/24 12:47 Oxygen Delivery Method Room Air 03/31/24 12:47 Medical Decision Making MDM Narrative Medical decision making narrative: 68-year-old male returns to the ER today for re-evaluation of a painful area in the superior portion of his gluteal cleft. He does have a history of previous perirectal surgery, apparently several years ago. He noted a painful area in the top of the gluteal cleft a few days ago and now feels like there is a swollen area there. He was seen yesterday in the ER and put on topical antibiotic ointment for an area of skin breakdown in the top of the gluteal cleft. He was given a prescription for cephalexin because there was a small swollen area under it, possibly a small area of involving perirectal abscess but not anything drainable yesterday. He returns to the ER today. He is very worried because the area is not better yet. On my exam he does have a 2 cm area of macerated skin in the midline of the upper gluteal cleft that is probably simply due to warmth and moisture in the gluteal cleft. There is also a small pea size firm area just there that could possibly be a piece of the sacral bone or could be an indurated piece of tissue. It does not really feel fluctuant to be an obvious abscess. Patient was very worried about a possible abscess or something connecting to his rectum. However this area is at least 6 cm anatomically distant from the perirectal area and I do not see any perirectal abscess. We obtained labs which are reassuring and CT imaging which showed no sign of abscess, drainable fluid pocket, or any fistula or other perirectal inflammation. Incidentally the patient does have signs of a large stool burden on his CT scan. He says he will withhold his Imodium tomorrow and that should help promote bowel movements to deal with the constipation. Lab Data Labs: Lab Results 03/31/24 Range/Units 13:50 WBC 6.64 (4.50-11.00) K/uL RBC 4.99 (4.30-5.90) m/uL Hgb 15.2 (13.5-17.5) gm/dL Hct 45.3 (37.0-53.0) % MCV 91 (80-100) fL MCH 31 (26-34) pg MCHC 34 (32-36) gm/dL RDW Coeff of Barbara 12.4 (11.5-15.5) % Plt Count 251 (140-440) K/uL Neut % (Auto) 53.0 (42.0-72.0) % Lymph % (Auto) 34.5 (20-44) % [place] % (Auto) 10.7 (0.0-11.0) % Eos % (Auto) 1.2 (0.0-7.0) % Baso % (Auto) 0.3 (0.0-3.0) % Neut # (Auto) 3.52 (1.7-7.0) K/uL Lymph # (Auto) 2.29 (0.90-2.90) K/uL [place] # (Auto) 0.70 (0.00-0.90) K/UL Eos # (Auto) 0.08 (0.00-0.50) K/uL Baso # (Auto) 0.02 (0.00-0.30) K/uL Abs Immat Gran (auto) 0.02 (0.00-0.30) K/uL Imm/Tot Granulo (auto) 0.3 % Sodium 140 (135-149) mmol/L Potassium 3.3 L (3.6-5.1) mmol/L Chloride 103 (96-114) mmol/L Carbon Dioxide 26 (20-32) mmol/L Anion Gap 11 (7-15) mEq/L BUN 26 (7-30) mg/dL Creatinine 1.5 (0.5-1.5) mg/dL Estimated Creat Clear 45.29 Estimated GFR 51 ml/min Glucose 98 (60-115) mg/dL Calcium 9.0 (8.4-10.6) mg/dL Imaging Data CT scan - pelvis: Attestation: I have reviewed the pertinent imaging results. Radiologist's impression: IMPRESSION: 1. No perirectal inflammation or drainable fluid collection is seen, though the inferior most portion of the perineum is excluded from the field of view. 2. Mhtxcjhr-[id number] stool burden. No evidence of bowel obstruction. Discharge Plan Discharge Clinical Impression: Wound of gluteal cleft Patient Disposition: Home, Self-Care Condition: Stable Instructions: Pilonidal Cyst (ED), Sitz Bath (DC) Additional Instructions: As we discussed, please keep the painful area clean. Wash it at least twice per day in the shower or sit down in a tub of water to soak it. After you wash it gently dabbed dry. Apply antibiotic ointment at least 2 times per day. Start on the antibiotics (cephalexin) that Dr. Brown prescribed to you. He will take a few days for your wound to heal. If is not better by Saturday, recheck with your doctor or come back to the ER to be rechecked. Prescriptions: No Action pravastatin 40 mg tablet 40 mg PO DAILY clonazepam 0.5 mg tablet 0.5 mg PO DAILY mirtazapine 7.5 mg tablet 7.5 mg PO QPM aspirin [Adult Aspirin Regimen] 81 mg tablet,delayed release (DR/EC) 81 mg PO DAILY pantoprazole [Protonix] 20 mg tablet,delayed release (DR/EC) 20 mg PO DAILY Qty: 20 2RF amlodipine 5 mg tablet 5 mg PO DAILY Patient Comments: TAKE 1 TABLET (5 MG) BY MOUTH ONCE DAILY. cephalexin 500 mg capsule 500 mg PO TID Qty: 21 0RF Follow Up/Referrals: Natalie Juárez DO [Primary Care Provider] - Stand Alone Forms: [employer] Info Instructions
--- NOTE | 2024-03-31 13:38 | CRLHL7_ITS ---
For Patients: As a result of the Century Cures Act, medical imaging exams and procedure reports are released immediately into your electronic medical record. You may view this report before your referring provider. If you have questions, please contact your health care provider. INDICATION: PERRIRECTAL PAIN AND GLUTEAL CLEFT PAIN/SWELLING TECHNIQUE: CT of the abdomen and pelvis was obtained with 79 mL of Isovue 370 intravenous contrast. Please note that all CT scans at this facility use dose modulation, iterative reconstruction, and/or weight-based dosing when appropriate to reduce radiation dose to as low as reasonably achievable. COMPARISON: None. FINDINGS: Lower thorax: Mild bilateral dependent atelectasis. Liver and biliary tree: Normal. Gallbladder: Normal. Spleen: Normal. Pancreas: Normal. Adrenal glands: Normal. Kidneys and ureters: Status post left nephrectomy. Lilk-rc-gwnkopfe multifocal right renal cortical scarring. No hydronephrosis or obstructing renal calculi. Gastrointestinal tract: Iqnrwcez-qs-ldwuh stool burden. Appendix is not definitely visualized. No evidence of bowel obstruction. Peritoneal cavity: Normal. Bladder: Normal. Pelvic organs: Normal. Vasculature: Hslt-zj-mdrrwwsx calcification. Lymph nodes: Normal. Abdominal wall: Small fat containing periumbilical hernia. Musculoskeletal: Normal. IMPRESSION: 1. No perirectal inflammation or drainable fluid collection is seen, though the inferior most portion of the perineum is excluded from the field of view. 2. Ytxclavz-rv-vnnek stool burden. No evidence of bowel obstruction. Please note that all CT scans at this facility use dose modulation, iterative reconstruction, and/or weight-based dosing when appropriate to reduce radiation dose to as low as reasonably achievable. Dictated by Ayden Del Cid MD @ 03/31/2024 3:59:40 PM (Electronically Signed)
--- OUTSIDE RECORDS SUMMARY | 2024-03-31 13:57 | XMS_ITS | Data Portability ---
Author Organization [facility], [facility] Address [address] [place] [address] Care Team Providers Care Styrene Dehydration Reactor Operator Name Role Phone MARINE HAAS Primary Care Provider [phone] Assessment Encounter Date Assessment Date Assessment LastModified [...] recorded. Lab urinalysis , dipstick 2022 023 [id number] [facility], [address], [place], [address], 12:14:01 urinalysis , dipstick 2022 023 [email or web address] [facility], [address], [place], [address], 15:08:08 Referral None recorded. Procedures None recorded. Surgeries None recorded. Imaging None recorded. Medication Orders None recorded. Patient TargetsNo targets recorded. Patient InstructionsNo instructions recorded. Reason for Referral None Reported. Results Created Date Observation Date Name Description Value Unit Range Abnormal Flag LastModifiedBy Organization Detail LastModifiedTime 09/27/1909/27/2022 urina lysis , dipst ick Sp [place]-Stat us 1.005 Not Available [facility] [address], [place], [address], 09/27/2022 12:12:58 09/27/19 23 09/27/2022 urina lysis , dipst ick pH-Status 6.0 Not Available [facility] [address], [place], [address], 09/27/2022 12:12:58 09/27/1909/27/2022 urina lysis , dipst ick Nitrates-Sta tus negati ve Not Available [facility] [address], [place], [address], 09/27/2022 12:12:58 09/27/1909/27/2022 urina lysis , dipst ick Blood-Status Trace Not Available [facility] [address], [place], [address], 09/27/2022 12:12:58 09/27/1909/27/2022 urina lysis , dipst ick Leuko-Status Negati ve Not Available [facility] [address], [place], [address], 09/27/2022 12:12:58 02/28/20 23 02/27/2023 urina lysis , dipst ick Color-Status Yellow Not Available [facility] [address], [place], [address], 02/27/2023 15:07:16 02/28/20 23 02/27/2023 urina lysis , dipst ick Clarity-Stat us Clear Not Available [facility] [address], [place], [address], 02/27/2023 15:07:16 02/28/20 23 02/27/2023 urina lysis , dipst ick Glucose-Stat us Negati ve Not Available [facility] [address], [place], [address], 02/27/2023 15:07:16 02/28/20 23 02/27/2023 urina lysis , dipst ick Nitrates-Sta tus negati ve Not Available [facility] [address], [place], [address], 02/27/2023 15:07:16 02/28/20 23 02/27/2023 urina lysis , dipst ick Blood-Status Negati ve Not Available [facility] [address], [place], [address], 02/27/2023 15:07:16 02/28/20 23 02/27/2023 urina lysis , dipst ick Leuko-Status Negati ve Not Available [facility] [address], [place], [address], 02/27/2023 15:07:16 10/02/19 23 09/27/2022 bladd er scan (PROC ) No observ ation record ed. Not Available 02/27/2023 22:09:27 03/01/20 23 02/27/2023 bladd er scan (PROC ) No observ ation record ed. BARCODE Not Available 03/01/2023 15:39:28 Result Notes None recorded. Procedures Surgical History Date Name Laterality Status Provider Name and Address Organization Details Recorded Time 3 Bladder Scan completed Pilar marcelo [facility] 08/22/2023 10:45:31 3 UroCuff completed Erma marcelo [facility] 08/08/2023 16:46:48 3 Bladder Scan completed Erma marcelo [facility] 08/08/2023 16:22:41 3 Bladder Scan completed Romie marcelo [facility] 02/27/2023 15:07:12 3 Bladder Scan completed Venkatesh Ontiveros MD [address] [place] [address], [phone] [place] [address] Urology 09/27/2022 12:46:00 0 colonoscopy completed Pilar marcelo [facility] 08/22/2023 10:42:53 Imaging Results Imaging Date [...] Updated DateTime 09/27/2022 168.91 cm 24.6 kg/m2 [address] [facility] 09/27/2022 12:18:06 Date Recorded Body height Body mass index (BMI) Body weight Provider Name and Address Organization Details Last Updated DateTime 02/27/2023 168.91 cm 24.6 kg/m2 [address] [facility] 02/27/2023 15:03:45 Date Recorded Body height Body mass index (BMI) Body weight Provider Name and Address Organization Details Last Updated DateTime 08/22/2023 168.91 cm 26.2 kg/m2 [address]56.[address] [facility] 08/22/2023 10:42:08 Social History Question Answer Notes LastModified by Organizat ion Details LastModified Time Tobacco Smoking Status [facility]2022 12:24:21 What Is Your Level Of Alcohol Consumption? None Information not available 02/27/2023 What Is Your Level Of Caffeine Consumption? Moderate Information not available 02/27/2023 Are You Currently Employed? No Information not available 02/27/2023 When Did You Quit Smoking? 1-5yearssince lastcigarette [email or web address] Information not available 08/22/2023 Recreational Drug Use No Information not available 02/27/2023 What Was The Date Of Your Most Recent Tobacco Screening? 08/22/2023 [email or web address] Information not available 08/22/2023 What Is Your [...] PF, 50 mcg/0.5 mL 06/12[facility]2023 [facility] 10:42:13 Influenza, split virus, quadrivalent, PF 06/12/2023 [facility]22[facility]2023 10:42:13 zoster recombinant 03/26/2022 [facility] 17:11:29 zoster recombinant 08/21/2022 [facility] 07/03/2023 17:11:29 COVID-19, mRNA, LNP-S, PF, 100 mcg/0.5mL dose or 50 mcg/0.25mL dose 12/21/2020 [facility] 07/03/2023 17:11:29 COVID-19, mRNA, LNP-S, PF, 100 mcg/0.5mL dose or 50 mcg/0.25mL dose 01/17/2021 [facility]/2023 17:11:29 COVID-19, mRNA, LNP-S, PF, 100 mcg/0.5mL dose or 50 mcg/0.25mL dose 03/26/2022 [facility] 07/03/2023 17:11:29 COVID-19, mRNA, LNP-S, PF, 100 mcg/0.5mL dose or 50 mcg/0.25mL dose 08/17/2021 completed SORIN Robb [facility] 07/03/2023 17:11:29 COVID-19, mRNA, LNP-S, bivalent, PF, 50 mcg/0.5 mL or 25mcg/0.25 mL dose 07/11/2022 completed SORIN Robb [facility] 07/03/2023 17:11:29 Tdap 07/11/2019 completed SORIN Robb [facility] 07/03/2023 17:11:29 Influenza, split virus, trivalent, preservative 06/14/2008 completed [facility]OR[facility] Robb [facility] 07/03/2023 17:11:29 Past Encounters Encounter ID Performer Location Encounter Start Date Encounter Closed Date Diagnosis/Indication Diagnosis SNOMED-CT Code [id number] MD [facility] [address] [place] [address] 09/27/2022 11:56:38 10/01/2022 14:14:58 Urethral stricture [id number] Recurrent urinary tract infection [id number] Venkatesh Ontiveros MD [facility] [address] [place] [address] 02/27/2023 14:11:30 03/07/2023 08:28:19 Urethral stricture [id number] Recurrent urinary tract infection [id number] Erma Alves [facility] [address] [place] [address] 08/08/2023 10:50:58 08/16/2023 11:25:54 Urethral stricture [id number] MD [facility] [address] [place] [address] 08/22/2023 10:36:02 09/04/2023 10:08:51 Urethral stricture [id number] Recurrent urinary tract infection [id number] Health Concerns Section Related Observation LastModified by Organization Detai ls LastModified Time None Recorded Concern Status LastModified by Organization Details LastModified Time None Recorded Advance Directives Directive None Recorded Payers Encounter Date Sequence Insurance Name Policy Number Policy Bruno Covered Member ID Bruno Member ID Guarantor Name 09/27/2022 1 [place] [facility] Jerry Ballesteros [id number] Jerry Ballesteros 02/27/2023 1 [place] [facility] Jerry Ballesteros [id number] Jerry Greenz 08/08/2023 1 [place] [facility] Jerry Ballesteros [id number] Jerry Greenz 08/22/2023 1 [place] [facility] Jerry Ballesteros [id number] 6 Jerry Ballesteros Notes Date Note Type Note Provider Name and Address Organization Details Recorded Time 09/27/2022 text/html HPI Notes: Mr. Ballesteros is a very pleasant 67-year-old male with a history of imperforate anus, solitary kidney, and history of urethral stricture disease requiring multiple dilations. Patient states that his last dilation was about 12 [address] Dr[address] Prabhakar. Was seeing a Laboratory Scientist while living in [place] but it has been quite some time since he has seen a Urologist. No established nephrology care here in [place]. Current urination consists of: urinary frequency with [...] more than usual. Venkatesh Ontiveros MD [address], [place], [address], [facility] 09/27/2022 12:46:39 02/27/2023 text/html HPI Notes: Mr. Ballesteros is a very pleasant 67-year-old male with a history of imperforate anus, solitary kidney, and history of urethral stricture disease requiring multiple dilations. Patient states that his last dilation was about [address] Prabhakar. Was seeing a Laboratory Scientist while living in [place] but it has been quite some time since he has seen a Urologist. No established nephrology care here in [place]. Current urination consists of: urinary frequency with [...] started cranberry supplement. Venkatesh Ontiveros MD [address], [place], [address], [facility] [place] [facility] 02/27/2023 22:10:59 08/22/2023 text/html HPI Notes: Mr. Ballesteros is a very pleasant 67-year-old male with a history of imperforate anus, solitary kidney, and history of urethral stricture disease requiring multiple dilations. Patient states that his last dilation was about [address] Prabhakar. Was seeing a Laboratory Scientist while living in [place] but it has been quite some time since he has seen a Urologist. No established nephrology care here in [place]. Current urination consists of: urinary frequency with [...] no recent UTIs. Venkatesh Ontiveros MD [address], [place], [address], [facility] 08/22/2023 13:34:58
--- OUTSIDE RECORDS SUMMARY | 2024-03-31 13:57 | XMS_ITS | Clinical Summary ---
Author Organization [employer] [facility] [employer] [facility] Address [place], [place] [address] Care Team Providers Care Accounts Receivable Supervisor Name Role Phone Natalie Juárez Primary Care Provider [phone] LexyKate Unavailable [phone] Allergies No known active allergies Medications Medication [...] Description 03/10/2024 8:20 AM CDT Office Visit [facility] [address] [place] [address] Luis Felipe Acosta, Sinus Problem (Just finished prednisone and abx yesterday - would like recheck of the face) 03/10/2024 Travel 03/02/2024 1:50 PM CDT Office Visit [facility] [address] [place] [address] Cristy Jordan PA Follow Up (Still with no taste-not much smell-had stopped his nasal spray to see if that was the cause but still the same as before-has a burnt metallic taste in his mouth) 03/02/2024 Travel 02/24/2024 2:40 PM CDT Office Visit [facility] [address] [place] [address] Carolyn Reyes MD Concerns (Lost sense of taste about 3 days ago. ) 02/24/2024 Travel 02/20/2024 Telephone [facility] [address] [place] [address] Natalie Juárez DO Error-please disregard 02/18/2024 12:30 PM CDT Phone Office Visit [facility] [address] [place] [phone] Kate Pugh DO Medication Management; Phone Visit ([place]) 02/04/2024 8:55 AM CDT Office Visit [facility] [address] [place] [address] Natalie Juárez DO Medicare ANNUAL (subsequent) Visit (68 year old male); Sinus Problem (Loss of sense of smell since bronchitis) 02/04/2024 Travel 01/17/2024 10:50 AM CDT Office Visit [facility] [address] [place] [address] Andree Paulson MD Derm Problem (Spots on forehead, 3 days) 01/17/2024 Travel 01/08/2024 Refill [facility] [address] [place] [address] Natalie Juárze, DO Refill Request (Amlodipine) 01/01/2024 8:45 AM CDT Office Visit [facility] [address] [place] [address] Sanya Rios, DPM Follow Up (Left bunion) 01/01/2024 Travel from Last 3 Months Immunizations Name Administration Dates Next Due COVID-19 Vaccine Spikevax (M oderna 50mcg/0.5mL) 12YO+ [id number] Formula PF 06/12/2023 COVID-19 vaccine (Moderna 100mcg/0.5mL) [...] Description 04/10/2024 10:40 AM CDT Office Visit [facility] [address] [facility] [address] [place], [place] [id number] Minna Vora PA [address] [place] [address] 04/23/2024 1:15 PM CDT Office Visit [facility] [address] [place] [phone] Lucian Owens MD [address] [facility] [address] [place] [address] 06/15/2024 11:15 AM CDT Orders Only [facility] [address] [place] [address] Lab, [place] 07/13/2024 12:40 PM EXPERIMENTAL ROCKETSLED MECHANIC Office Visit [address] [phone] Billy Sanon MD [address] [place], [place] [id number] Health Maintenance Due Date Last Done Comments [...] through age 77 03/03/203003/03 (Completed outside of [facility]) Tdap Completed 07/11/2019, 04/16/2006 Hepatitis C screening [...] ABD AORTA SCREENING Routine 09/24/2022 9:16 AM EXPERIMENTAL ROCKETSLED MECHANIC Screening for AAA (aortic abdominal aneurysm) ANTI HCV Routine 01/02/2022 10:46 AM CDT Encounter for hepatitis C screening test for low risk patient from Last 3 Months or Most Recently Relevant to Health Maintenance Results * COVID-19 MOLECULAR (02/24/2024 3:30 PM CDT) COVID 19 [facility] MOLECULAR Negative Negative 02/25/2024 2:15 AM CDT [facility] TESTING LABORATORY [facility] 02/25/2024 2:15 AM CDT [facility] Comment:Specimen submitted t o [facility] for testing. Other SPECIMEN FROM NASAL [...] Reyes MD MICROBIOLO GY Performing Organization Address City/[facility]/ZIP Co de Phone Number [facility] [address] [place] [address], [place] * LIPID PANEL W REFLEX MEASURED LDL (02/04/2024 9:53 AM CDT) [facility] CHOLESTEROL,TOTAL 198 100 - 199 mg/dL 02/04/2024 6:48 PM CDT [facility] Comment: Cholesterol, Total Reference Ranges Desirable <200 mg/dL Borderline 200-239 mg/dL High >=240 mg/dL TRIGLYCERIDES 119 <150 mg/dL 02/04/2024 6:48 PM CDT [facility] HDL CHOLESTEROL 67 >40 mg/dL 6:48 PM CDT [facility] NON-HDL CHOLESTEROL 131 <145 mg/dl 02/04/2024 6:48 PM CDT [facility] CHOL/HDL RATIO 2.96 <4.50 02/04/2024 6:48 PM CDT [facility] LDL CHOLESTEROL 107 <=130 mg/dL 02/04/2024 6:48 PM CDT [facility] VLDL CHOLESTEROL 24 <=30 mg/dL 02/04/2024 6:48 PM CDT [facility] PROVIDER ORDERED STATUS RANDOM 02/04/2024 6:48 PM CDT [facility] Blood BLOOD SPECIMEN / Unknown Venipuncture / Unknown 02/04/2024 9:53 AM CDT 02/04/2024 9:53 AM CDT Natalie Juárez DO CHEMISTRY Performing Organization Address [facility]/ZIP Co de Phone Number [facility] [address] [place] [address], [place] * (ABNORMAL) BASIC METABOLIC PANEL (02/04/2024 9:53 AM CDT) SODIUM 138 136 - 145 mmol/L 02/04/2024 6:48 PM CDT [facility] POTASSIUM 4.1 3.5 - 5.1 mmol/L 02/04/2024 6:48 PM CDT [facility] CHLORIDE 102 98 - 107 mmol/L 02/04/2024 6:48 PM CDT [facility] CO2,TOTAL 22 22 - 29 mmol/L 02/04/2024 6:48 PM CDT [facility] ANION GAP 14 5 - 18 02/04/2024 6:48 PM CDT [facility] GLUCOSE 100(H) 70 - 99 mg/dL 02/04/2024 6:48 PM CDT [facility] CALCIUM 9.3 8.8 - 10.2 mg/dL 02/04/2024 6:48 PM CDT [facility] BUN 22 8 - 23 mg/dL 02/04/2024 6:48 PM CDT [facility] CREATININE 1.51(H) 0.70 - 1.20 mg/dL 02/04/2024 6:48 PM CDT [facility] BUN/CREAT RATIO 15 10 - 20 6:48 PM CDT [facility] eGFR 51(L) >90 mL/min/1.7 3m2 02/04/2024 6:48 PM CDT [facility] Comment:As of 2021, eG [...] Aliya Shaqra DO CHEMISTRY Performing Organization Address [facility]/ZIP Co de Phone Number [facility] [address] [place] [address], [place] * PSA TOTAL SCREEN (02/04/2024 9:53 AM CDT) PSA TOTAL (SCREEN) 1.50 <4.00 ng/mL 02/04/2024 6:48 PM CDT [facility] Blood BLOOD SPECIMEN / Unknown Venipuncture / Unknown 02/04/2024 9:53 AM CDT 02/04/2024 9:53 AM CDT Narrative [facility] - 02/04/2024 6:48 PM CDT The [...] different and cannot be used interchangeably. Natalie Mach [employer] [facility] Performing Organization Address [facility] Co de Phone Number [facility] [address] [place] [phone], [place] * US ABD AORTA SCREENING [[id number]] (09/24/2022 9:16 AM EXPERIMENTAL ROCKETSLED MECHANIC) Anatomical Region Laterality Modality Abdomen, AORTA Ultrasound 09/24/2022 10:4 1 AM EXPERIMENTAL ROCKETSLED MECHANIC Impressions 09/24/2022 10:41 AM EXPERIMENTAL ROCKETSLED MECHANIC Normal sonographic assessment of the abdominal aorta. Dictated by Colin Dumas MD @ Sep 24 2022 10:41AM (Electronically Signed) ?? Narrative 09/24/2022 10:41 AM EXPERIMENTAL ROCKETSLED MECHANIC For Patients: ??As a result of the [...] asia Non-React asia 01/02/2022 6:27 PM CDT [facility] Comment:Antibodies to HCV no t detected; does not exclude the possibility of exposure to HCV. Blood BLOOD SPECIMEN / Unknown Venipuncture / Unknown 01/02/2022 10:46 AM CDT 01/02/2022 10:47 AM CDT Natalie Juárez DO SEND OUTS [facility] [address] [place] [address], from Last 3 Months or Most Recently Relevant to Health Maintenance Care Teams Accounts Receivable Supervisor Relationship Specialty Start Date End Date Natalie Juárez DO [address] [place] [address] PCP - General Family Practice 03/01/21 Kate Pugh DO [address] [place] [address] Psychiatry 02/04/23
[2024-03-31 14:04] LABS: Basophils Absolute Auto 0.02 K/uL (0.00-0.30); Basophils Percent Auto 0.3 % (0.0-3.0); Eosinophils Absolute Auto 0.08 K/uL (0.00-0.50); Eosinophils Percent Auto 1.2 % (0.0-7.0); Hematocrit 45.3 % (37.0-53.0); Hemoglobin* 15.2 gm/dL (13.5-17.5); Immature Granulocytes Abs Auto 0.02 K/uL (0.00-0.30); Immature Granulocytes Pct Auto 0.3 %; Lymphocytes Absolute Auto 2.29 K/uL (0.90-2.90); Lymphocytes Percent Auto 34.5 % (20-44); Mean Corpuscular HGB Conc 34 gm/dL (32-36); Mean Corpuscular Hemoglobin 31 pg (26-34); Mean Corpuscular Volume 91 fL (80-100); Monocytes Percent Auto 10.7 % (0.0-11.0); Neutrophils Absolute Auto 3.52 K/uL (1.7-7.0); Platelet Count* 251 K/uL (140-440); RDW Coefficient of Variation % 12.4 % (11.5-15.5); Red Blood Count 4.99 m/uL (4.30-5.90); White Blood Count* 6.64 K/uL (4.50-11.00)
[2024-03-31 14:06] LABS: Slide Review Reflex No
[2024-03-31 14:24] LABS: Chloride* 103 mmol/L (96-114); Sodium* 140 mmol/L (135-149)
[2024-03-31 14:25] LABS: Potassium* 3.3 mmol/L (3.6-5.1)
[2024-03-31 14:27] LABS: Anion Gap 11 mEq/L (7-15); Carbon Dioxide* 26 mmol/L (20-32); Creatinine* 1.5 mg/dL (0.5-1.5); Est. Creatinine Clearance* 45.29; Estimated Glomerular Filt Rate 51 ml/min
[2024-03-31 14:28] LABS: Blood Urea Nitrogen* 26 mg/dL (7-30); Glucose* 98 mg/dL (60-115)
== END 2024-03-31 16:39 | disposition home or self-care (01) ==
PROVIDERS: Emergency Provider Emergency Medicine; PCP Family Medicine
DX: S31.809A Unspecified open wound of unspecified buttock, initial encounter (principal)
CPT/HCPCS: 36415; 74177; 80048; 85025; 99283; 99284; 99285; Q9967

== ENCOUNTER 2024-04-06 11:58 | Emergency (ER) | payer MEDICARE, OTHER, SELFPAY ==
[2024-04-06 12:13] VITALS: BP 145/88; PULSE 66; RESP 18; TEMP 35.8; O2SAT 96; BMI 26.6
--- NOTE | 2024-04-06 12:33 | CRLHL7_ITS ---
For Patients: As a result of the Century Cures Act, medical imaging exams and procedure reports are released immediately into your electronic medical record. You may view this report before your referring provider. If you have questions, please contact your health care provider. INDICATION: Chest pain COMPARISON: None TECHNIQUE: PA and lateral views of the chest were acquired FINDINGS: TUBES AND LINES: None. HEART AND MEDIASTINUM: The heart size is normal. The mediastinal contour appears normal for patient age. LUNGS AND PLEURAL SPACES: The lungs appear normal.The pleural spaces are unremarkable. OSSEOUS STRUCTURES: Truncated distal right clavicle probably due to postsurgical change. IMPRESSION: No evidence of active pulmonary disease. Dictated by Gilbert Tidwell MD @ 04/06/2024 12:51:26 PM (Electronically Signed)
--- OUTSIDE RECORDS SUMMARY | 2024-04-06 12:46 | XMS_ITS | Clinical Summary ---
Author Organization [employer] [facility] Address [place], [place] [address] Care Team Providers Care Crew Manager Name Role Phone Natalie Juárez Primary Care Provider [phone] LexyKate Unavailable [phone] Allergies No known active allergies Medications Medication [...] Tablet 03/02/2024 predniSONE (DELTASONE) 20 mg tabletIndications:[place] non-recurrent maxillary sinusitis Take 1 Tablet (20 [...] Description 03/10/2024 8:20 AM CDT Office Visit [facility] [address] [place] [address] Luis Felipe Acosta, Sinus Problem (Just finished prednisone and abx yesterday - would like recheck of the face) 03/10/2024 Travel 03/02/2024 1:50 PM CDT Office Visit [facility] [address] [place] [address] Cristy Jordan PA Follow Up (Still with no taste-not much smell-had stopped his nasal spray to see if that was the cause but still the same as before-has a burnt metallic taste in his mouth) 03/02/2024 Travel 02/24/2024 2:40 PM CDT Office Visit [facility] [address] [place] [address] Carolyn Reyes MD Concerns (Lost sense of taste about 3 days ago. ) 02/24/2024 Travel 02/20/2024 Telephone [facility] [address] [place] [address] Natalie Juárez DO Error-please disregard 02/18/2024 12:30 PM CDT Phone Office Visit [facility] [address] [place] [phone] Kate Pugh DO Medication Management; Phone Visit ([place]) 02/04/2024 8:55 AM CDT Office Visit [facility] [address] [place] [address] Natalie Juárez DO Medicare ANNUAL (subsequent) Visit (68 year old male); Sinus Problem (Loss of sense of smell since bronchitis) 02/04/2024 Travel 01/17/2024 10:50 AM CDT Office Visit [facility] [address] [place] [address] Andree Paulson MD Derm Problem (Spots on forehead, 3 days) 01/17/2024 Travel 01/08/2024 Refill [facility] [address] [place] [address] Natalie Juárez, DO Refill Request (Amlodipine) from Last 3 Months Immunizations Name Administration Dates Next Due COVID-19 Vaccine Spikevax (M oderna 50mcg/0.5mL) 12YO+ [id number] Formula PF 06/12/2023 COVID-19 vaccine (Moderna 100mcg/0.5mL) [...] Status Comments Brother 1 Yahir Brother 2 Terrenec Alive Father Mother Other 1 Other 2 [...] Description 04/10/2024 10:40 AM CDT Office [place] [facility] [address] [place], [place] [address] Minna Vora PA [address] [place] [address] 04/23/2024 1:15 PM CDT Office Visit [address] [place] [address] Lucian Owens MD [address] [facility] [address] [place], [place] [id number] 06/15/2024 11:15 AM CDT Orders Only [facility] [address] [place] [address] Lab, [place] 07/13/2024 12:40 PM INFORMATION SYSTEMS PLANNER Office Visit [facility] [address] [place] [address] Billy Sanon MD [address] [place], [place] [id number] Health Maintenance Due Date Last Done Comments [...] 02/03/2029 02/04/2024, 06/22/2022, 01/20/2020 (Completed outside of [facility]), Additional history exists Tetanus booster 07/11/2029 07/11/2019, 04/16/2006 Colonoscopy through age 77 03/03/203003/03 (Completed outside of [facility]) Tdap Completed 07/11/2019, 04/16/2006 Hepatitis C screening [...] ABD AORTA SCREENING Routine 09/24/2022 9:16 AM INFORMATION SYSTEMS PLANNER Screening for AAA (aortic abdominal aneurysm) ANTI HCV Routine 01/02/2022 10:46 AM CDT Encounter for hepatitis C screening test for low risk patient from Last 3 Months or Most Recently Relevant to Health Maintenance Results * COVID-19 MOLECULAR (02/24/2024 3:30 PM CDT) COVID 19 [facility] MOLECULAR Negative Negative 02/25/2024 2:15 AM CDT [facility] 02/25/2024 2:15 AM CDT [facility] Comment:Specimen submitted t o [facility] for testing. Other SPECIMEN FROM NASAL FOSSAE / Unknown Non-Blood / Unknown 02/24/2024 3:30 PM CDT 02/24/2024 3:45 PM CDT [facility] LABORATORY-CENTRAL LABORATORY - 02/25/2024 2:15 AM CDT All PCR tests are subject to false negative result due to variability in viral load and collection technique. A negative result does not rule out a SARS-CoV-2 infection. Clinical correlation required. Carolyn Reyes MD MICROBIOLO GY [facility] [address] [place] [address], * LIPID PANEL W REFLEX MEASURED LDL (02/04/2024 9:53 AM CDT) CHOLESTEROL,TOTAL 198 100 - 199 mg/dL 02/04/2024 6:[address] [facility] Comment: Cholesterol, Total Reference Ranges Desirable <200 mg/dL Borderline 200-239 mg/dL High >=240 mg/dL TRIGLYCERIDES 119 <150 mg/dL 02/04/2024 6:[address] [facility] HDL CHOLESTEROL 67 >40 mg/dL 6:[address] [facility] NON-HDL CHOLESTEROL 131 <145 mg/dl 02/04/2024 6:[address] [facility] CHOL/HDL RATIO 2.96 <4.50 02/04/2024 6:[address] [facility] LDL CHOLESTEROL 107 <=130 mg/dL 02/04/2024 6:[address] [facility] VLDL CHOLESTEROL 24 <=30 mg/dL 02/04/2024 6:[address] [facility] PROVIDER ORDERED STATUS RANDOM 02/04/2024 6:[address] [facility] Blood BLOOD SPECIMEN / Unknown Venipuncture / Unknown 02/04/2024 9:53 AM CDT 02/04/2024 9:53 AM CDT Natalie Juárez DO CHEMISTRY Performing Organization Address City/[facility]/ZIP Co de Phone Number [facility] [address] [place] [address], [place] * (ABNORMAL) BASIC METABOLIC PANEL (02/04/2024 9:53 AM CDT) SODIUM 138 136 - 145 mmol/L 02/04/2024 6:[address] [facility] POTASSIUM 4.1 3.5 - 5.1 mmol/L 02/04/2024 6:[address] [facility] CHLORIDE 102 98 - 107 mmol/L 02/04/2024 6:[address] [facility] CO2,TOTAL 22 22 - 29 mmol/L 02/04/2024 6:[address] [facility] ANION GAP 14 5 - 18 02/04/2024 6:[address] [facility] GLUCOSE 100(H) 70 - 99 mg/dL 02/04/2024 6:[address] [facility] CALCIUM 9.3 8.8 - 10.2 mg/dL 02/04/2024 6:[address] [facility] BUN 22 8 - 23 mg/dL 02/04/2024 6:[address] [facility] CREATININE 1.51(H) 0.70 - 1.20 mg/dL 02/04/2024 6:[address] [facility] BUN/CREAT RATIO 15 10 - 20 6:[address] [facility] eGFR 51(L) >90 mL/min/1.7 3m2 02/04/2024 6:[address] [facility] Comment:As of 2021, eG [...] 9:53 AM CDT Natalie Juárez DO [facility] [address] [place] [address], [place] * PSA TOTAL SCREEN (02/04/2024 9:53 AM CDT) PSA TOTAL (SCREEN) 1.50 <4.00 ng/mL 02/04/2024 6:48 PM CDT [facility] Blood BLOOD SPECIMEN / Unknown Venipuncture / Unknown 02/04/2024 9:53 AM CDT 02/04/2024 9:53 AM CDT Narrative [facility] - 02/04/2024 6:48 PM CDT [...] different and cannot be used interchangeably. Natalie Juárez DO LABORATORY [facility] [address] [place] [address], [place] * US ABD AORTA SCREENING [[id number]] (09/24/2022 9:16 AM INFORMATION SYSTEMS PLANNER) Anatomical Region Laterality Modality Abdomen, AORTA Ultrasound 09/24/2022 10:4 1 AM INFORMATION SYSTEMS PLANNER Impressions 09/24/2022 10:41 AM INFORMATION SYSTEMS PLANNER Normal sonographic assessment of the abdominal aorta. Dictated by Colin Dumas MD @ Sep 24 2022 10:41AM (Electronically Signed) ?? Narrative 09/24/2022 10:41 AM INFORMATION SYSTEMS PLANNER For Patients: ??As a result of the 21st Century Cures Act, medical imaging exams and [...] For Patients: As a result of the Century Cures Act, medical imagingexams and procedure reports [...] asia Non-React asia 01/02/2022 6:27 PM CDT [facility] Comment:Antibodies to HCV no t detected; does not exclude the possibility of exposure to HCV. Blood BLOOD SPECIMEN / Unknown Venipuncture / Unknown 01/02/2022 10:46 AM CDT 01/02/2022 10:47 AM CDT Natalie Juárez DO SEND OUTS [facility] [address] [place] [address], from Last 3 Months or Most Recently Relevant to Health Maintenance Care Teams Crew Manager Relationship Specialty Start Date End Date Natalie Juárez DO [address] [place] [address] PCP - General Family Practice 03/01/21 Kate Pugh DO [address] [facility] [address] [place] [address] Psychiatry 02/04/23
--- OUTSIDE RECORDS SUMMARY | 2024-04-06 12:46 | XMS_ITS | Data Portability ---
Author Organization [facility], [facility] Address [address] [place] [address] Care Team Providers Care Cnc Maintenance Mechanic Name Role Phone MARINE HAAS Primary Care Provider [phone] Assessment Encounter Date Assessment Date Assessment LastModified [...] recorded. Lab urinalysis , dipstick 2022 023 [email or web address] [facility], [address], [place], [address], 12:14:01 urinalysis , dipstick 2022 023 [email or web address] [facility], [address], [place], [address], 15:08:08 Referral None recorded. Procedures None recorded. Surgeries None recorded. Imaging None recorded. Medication Orders None recorded. Patient TargetsNo targets recorded. Patient InstructionsNo instructions recorded. Reason for Referral None Reported. Results Created Date Observation Date Name Description Value Unit Range Abnormal Flag LastModifiedBy Organization Detail LastModifiedTime 09/27/1909/27/2022 urina lysis , dipst ick Sp [place]-Stat us 1.005 Not Available [facility] [address], [place], [address], 09/27/2022 12:12:58 09/27/19 23 09/27/2022 urina lysis , dipst ick pH-Status 6.0 Not Available [facility] [address], [place], [address], 09/27/2022 12:12:58 09/27/1909/27/2022 urina lysis , dipst ick Nitrates-Sta tus negati ve Not Available [facility] [address], [place], [address], 09/27/2022 12:12:58 09/27/1909/27/2022 urina lysis , dipst ick Blood-Status Trace Not Available [facility] [address], [place], [address], 09/27/2022 12:12:58 09/27/1909/27/2022 urina lysis , dipst ick Leuko-Status Negati ve Not Available [facility] [address], [place], [address], 09/27/2022 12:12:58 02/28/20 23 02/27/2023 urina lysis , dipst ick Color-Status Yellow Not Available [facility] [address], [place], [address], 02/27/2023 15:07:16 02/28/20 23 02/27/2023 urina lysis , dipst ick Clarity-Stat us Clear Not Available [facility] [address], [place], [address], 02/27/2023 15:07:16 02/28/20 23 02/27/2023 urina lysis , dipst ick Glucose-Stat us Negati ve Not Available [facility] [address], [place], [address], 02/27/2023 15:07:16 02/28/20 23 02/27/2023 urina lysis , dipst ick Nitrates-Sta tus negati ve Not Available [facility] [address], [place], [address], 02/27/2023 15:07:16 02/28/20 23 02/27/2023 urina lysis , dipst ick Blood-Status Negati ve Not Available [facility] [address], [place], [address], 02/27/2023 15:07:16 02/28/20 23 02/27/2023 urina lysis , dipst ick Leuko-Status Negati ve Not Available [facility] [address], [place], [address], 02/27/2023 15:07:16 10/02/19 23 09/27/2022 bladd er scan (PROC ) No observ ation record ed. Not Available 02/27/2023 22:09:27 03/01/20 23 02/27/2023 bladd er scan (PROC ) No observ ation record ed. BARCODE Not Available 03/01/2023 15:39:28 Result Notes None recorded. Procedures Surgical History Date Name Laterality Status Provider Name and Address Organization Details Recorded Time 3 Bladder Scan completed Pilar marcelo [facility] 08/22/2023 10:45:31 3 UroCuff completed Erma marcelo [facility] 08/08/2023 16:46:48 3 Bladder Scan completed Erma marcelo [facility] 08/08/2023 16:22:41 3 Bladder Scan completed Romie marcelo [facility] 02/27/2023 15:07:12 3 Bladder Scan completed Venkatesh Ontiveros MD [address] [place] [address], [address] [place] [address] Urology 09/27/2022 12:46:00 0 colonoscopy completed Pilar marcelo [facility] 08/22/2023 10:42:53 Imaging Results Imaging [...] Updated DateTime 09/27/2022 168.91 cm 24.6 kg/m2 89057.82 g Miriam Rae [facility] 09/27/2022 12:18:06 Date Recorded Body height Body mass index (BMI) Body weight Provider Name and Address Organization Details Last Updated DateTime 02/27/2023 168.91 cm 24.6 kg/m2 11167.82 g Romie Santos [facility] 02/27/2023 15:03:45 Date Recorded Body height Body mass index (BMI) Body weight Provider Name and Address Organization Details Last Updated DateTime 08/22/2023 168.91 cm 26.2 kg/m2 44728.74 g Pilar Smith [facility] 08/22/2023 10:42:08 Social History Question Answer Notes LastModified by Organizat ion Details LastModified Time Tobacco Smoking Status [facility] 12:24:21 What Is Your Level Of Alcohol Consumption? None Information not available 02/27/2023 What Is Your Level Of Caffeine Consumption? Moderate Information not available 02/27/2023 Are You Currently Employed? No Information not available 02/27/2023 When Did You Quit Smoking? 1-5yearssince lastcigarette [email or web address] Information not available 08/22/2023 Recreational Drug Use No Information not available 02/27/2023 What Was The Date Of Your Most Recent Tobacco Screening? 08/22/2023 [email or web address] Information not available 08/22/2023 What Is Your [...] PF, 50 mcg/0.5 mL 06[facility]12[facility]2023 [facility] 10:42:13 Influenza, split virus, quadrivalent, PF 06/12/2023 [facility] 10:42:13 zoster recombinant [facility]2022 [facility] 17:11:29 zoster recombinant 08/21/2022 [facility] 17:11:29 COVID-19, mRNA, LNP-S, PF, 100 mcg/0.5mL dose or 50 mcg/0.25mL dose 12/21/2020 [facility]23 17:11:29 COVID-19, mRNA, LNP-S, PF, 100 mcg/0.5mL dose or 50 mcg/0.25mL dose 01/17/2021 [facility]2023 17:11:29 COVID-19, mRNA, LNP-S, PF, 100 mcg/0.5mL dose or 50 mcg/0.25mL dose 03/26/2022 [facility]/2023 17:11:29 COVID-19, mRNA, LNP-S, PF, 100 mcg/0.5mL dose or 50 mcg/0.25mL dose 08/17/2021 completed SORIN Robb [facility] 07/03/2023 17:11:29 COVID-19, mRNA, LNP-S, bivalent, PF, 50 mcg/0.5 mL or 25mcg/0.25 mL dose 07/11/2022 completed SORIN Robb [facility] 07/03/2023 17:11:29 Tdap 07/11/2019 completed SORIN Robb [facility] 07/03/2023 17:11:29 Influenza, split virus, trivalent, preservative 06/14/2008 completed SORIN Robb [facility] 07/03/2023 17:11:29 Past Encounters Encounter ID Performer Location Encounter Start Date Encounter Closed Date Diagnosis/Indication Diagnosis SNOMED-CT Code [id number] MD [facility] [address] [place] [address] 09/27/2022 11:56:38 10/01/2022 14:14:58 Urethral stricture [id number] Recurrent urinary tract infection [id number] Venkatesh Ontiveros MD [facility] [address] [place] [id number] 02/27/2023 14:11:30 03/07/2023 08:28:19 Urethral stricture 64011161 Recurrent urinary tract infection [id number] Erma Alves [facility] [address] [place] [address] 08/08/2023 10:50:58 08/16/2023 11:25:54 Urethral stricture [id number] MD [facility] [address] [place] [address] 08/22/2023 10:36:02 09/04/2023 10:08:51 Urethral stricture [id number] Recurrent urinary tract infection [id number] Health Concerns Section Related Observation LastModified by Organization Detai ls LastModified Time None Recorded Concern Status LastModified by Organization Details LastModified Time None Recorded Advance Directives Directive None Recorded Payers Encounter Date Sequence Insurance Name Policy Number Policy Bruno Covered Member ID Bruno Member ID Guarantor Name 09/27/2022 1 [place] [facility] Jerry Ballesteros [id number] Jerry Ballesteros 02/27/2023 1 [place] [facility] Jerry Ballesteros [id number] Jerry Greenz 08/08/2023 1 [place] [facility] Jerry Ballesteros [id number] Jerry Greenz 08/22/2023 1 [place] [facility] Jerry Ballesteros [id number] Jerry Ballesteros Notes Date Note Type Note Provider Name and Address Organization Details Recorded Time 09/27/2022 text/html HPI Notes: Mr. Ballesteros is a very pleasant 67-year-old male with a history of imperforate anus, solitary kidney, and history of urethral stricture disease requiring multiple dilations. Patient states that his last dilation was about [address] Dr[address] Prabhakar. Was seeing a Helicopter Pilot Instructor while living in [place] but it has been quite some time since he has seen a Urologist. No established nephrology care here in [place]. Current urination consists of: urinary frequency with [...] more than usual. Venkatesh Ontiveros MD [address], [place], [address], [facility] 09/27/2022 12:46:39 02/27/2023 text/html HPI Notes: Mr. Ballesteros is a very pleasant 67-year-old male with a history of imperforate anus, solitary kidney, and history of urethral stricture disease requiring multiple dilations. Patient states that his last dilation was about [address] Prabhakar. Was seeing a Helicopter Pilot Instructor while living in [place] but it has been quite some time since he has seen a Urologist. No established nephrology care here in [place]. Current urination consists of: urinary frequency with [...] started cranberry supplement. Venkatesh Ontiveros MD [address], [place], [address], [facility] [place] [facility] 02/27/2023 22:10:59 08/22/2023 text/html HPI Notes: Mr. Ballesteros is a very pleasant 67-year-old male with a history of imperforate anus, solitary kidney, and history of urethral stricture disease requiring multiple dilations. Patient states that his last dilation was about [address] Prabhakar. Was seeing a Helicopter Pilot Instructor while living in [place] but it has been quite some time since he has seen a Urologist. No established nephrology care here in [place]. Current urination consists of: urinary frequency with [...] no recent UTIs. Venkatesh Ontiveros MD [address], [place], [address], [facility] 08/22/2023 13:34:58
--- NOTE | 2024-04-06 12:58 | ED_ITS ---
HPI - Chest Pain General Date Seen: 04/06/24 Chief Complaint: Chest Pain Stated Complaint: Chest pains Time Seen by Provider: 04/06/24 12:22 Source: patient Mode of arrival: ambulatory Limitations: no limitations History of Present Illness HPI narrative: Patient is a 68-year-old male with history of hypertension presenting to the emergency department for right-sided chest pain. He states the chest pain is been going on for the past 3 hours. States he was getting out of his chair when he 1st noticed it and has been consistent since then. He states it feels like someone is pushing the finger into his right to chest just lateral to the nipple. Denies having symptoms like this before. Denies shortness of breath, weakness, numbness, headache, vision changes, abdominal pain, diarrhea, constipation, lightheadedness, dizziness. Has not noticed much change in the symptoms since the 1st occurred. As gone to the store and got coffee in the meantime with no change in symptoms. Has no history of blood clots. No history of heart disease. He also states he feels like he is full of gas and needs to for but was unable to. And cannot tell if he is constipated or not. Related Data Home Medications ?Medication ?Instructions ?Recorded ?Confirmed clonazepam 0.5 mg tablet 0.5 mg PO DAILY 12/02/22 04/06/24 mirtazapine 7.5 mg tablet 7.5 mg PO QPM 12/02/22 04/06/24 pravastatin 40 mg tablet 40 mg PO DAILY 12/02/22 04/06/24 amlodipine 5 mg tablet 5 mg PO DAILY 03/11/23 04/06/24 aspirin 81 mg tablet,delayed 81 mg PO DAILY 09/06/23 04/06/24 release (Adult Aspirin Regimen) Previous Rx's ?Medication ?Instructions ?Recorded pantoprazole 20 mg tablet,delayed 20 mg PO DAILY #20 tabs 10/01/23 release (Protonix) cephalexin 500 mg capsule 500 mg PO TID #21 caps 03/30/24 Allergies Allergy/AdvReac Type Severity Reaction Status Date / Time No Known Drug Allergies Allergy Verified 04/06/24 12:17 Review of Systems Status of ROS Reports: 10 or more systems reviewed and unremarkable except as noted in History and below PFSH PFSH Social History Smoking Status: Never smoker Do you use any of these nicotine containing products: None How often do you have a drink containing alcohol: never How often do you have six or more drinks on one occasion: Never AUDIT-C Alcohol total score: 0 Non-prescribed substance use: denies use service: No Exam Narrative Exam Narrative: Const: Well-nourished, Well-developed, in mild distress Eyes: PERRL, no conjunctival injection, and symmetrical lids HENT: Atraumatic external nose and ears. Moist mucous membranes. Neck: Symmetric, trachea midline, No thyromegaly. CVS: RRR, No murmurs or gallops. Peripheral pulses 2+ and equal in all extremities RESP: Unlabored respiratory effort. Clear to auscultation bilaterally. GI: Nontender/Nondistended, No rebound or guarding. MSK:Extremities w/o deformity, Normal Active ROM Skin: Warm, Dry. No rashes or lesions. Neuro: Normal Muscle tone, No focal neurological deficits. Psych: Awake, Alert, & Oriented x3. Appropriate mood and affect. Const Vital Signs, click to edit/add: Vital Signs - 24 hr 04/06/24 12:13 Temperature 96.5 F L Pulse Rate [Pulse Oximeter] 66 Respiratory Rate 18 Blood Pressure [Left Upper Arm] 145/88 H Pulse Oximetry 96 Oxygen Delivery Method Room Air Course Vital Signs Vital signs: Initial Vital Signs Temperature 96.5 F L 04/06/24 12:13 Temperature Source Temporal Artery Scan 04/06/24 12:13 Pulse Rate 66 04/06/24 12:13 Respiratory Rate 18 04/06/24 12:13 Blood Pressure 145/88 H 04/06/24 12:13 Blood Pressure Mean 107 H 04/06/24 12:13 Blood Pressure Position Sitting 04/06/24 12:13 Pulse Oximetry 96 04/06/24 12:13 Oxygen Delivery Method Room Air 04/06/24 12:13 Vital Signs Temperature 96.5 F L 04/06/24 12:13 Pulse Rate 66 04/06/24 12:13 Respiratory Rate 18 04/06/24 12:13 Blood Pressure 145/88 H 04/06/24 12:13 Pulse Oximetry 96 04/06/24 12:13 Oxygen Delivery Method Room Air 04/06/24 12:13 Temperature 96.5 F L 04/06/24 12:13 Pulse Rate 66 04/06/24 12:13 Respiratory Rate 18 04/06/24 12:13 Blood Pressure 145/88 H 04/06/24 12:13 Pulse Oximetry 96 04/06/24 12:13 Oxygen Delivery Method Room Air 04/06/24 12:13 MDM - Chest Pain MDM Narrative Medical decision making narrative: Patient is a 68-year-old male presenting for chest pain. The differential diagnosis of chest pain is broad and includes common etiologies such as musculoskeletal strain, GERD, pneumonia, etc. More serious etiologies considere d include PE, coronary artery disease, pneumothorax, aortic dissection, aortic aneurysm. At this time aortic dissection aortic aneurysm seem very unlikely considering he is otherwise stable. Cannot rule out PE and a D-dimer was ordered. Chest x-ray look for signs of pneumonia and pneumothorax. Will do a troponin an EKG for signs of coronary artery disease. Will also order COVID/flu/RSV, CBC, CMP. Patient's lab work returned showing no concerning findings. No signs of anemia. No signs of electrolyte abnormalities. Potassium is a time without 3.4 but not a concerning level. Creatinine is at 1.6 but this is consistent with previous creatinine levels. COVID/flu/RSV is negative. Initial troponin and EKG showed no concerning findings in his repeat troponin was within normal limits. D-dimer within normal limits in PE is unlikely. Chest x-ray reviewed by myself and the radiologist shows no concerning findings. He is otherwise doing well at this time and I believe he is safe for discharge. He is agreeable to this plan. Lab Data Labs: Lab Results 04/06/24 04/06/24 04/06/24 Range/Units 12:33 12:58 13:01 WBC 8.71 (4.50-11.00) K/uL RBC 4.81 (4.30-5.90) m/uL Hgb 14.7 (13.5-17.5) gm/dL Hct 43.6 (37.0-53.0) % MCV 91 (80-100) fL MCH 31 (26-34) pg MCHC 34 (32-36) gm/dL RDW Coeff of Barbara 12.4 (11.5-15.5) % Plt Count 248 (140-440) K/uL Neut % (Auto) 50.8 (42.0-72.0) % Lymph % (Auto) 37.3 (20-44) % Wil[place]ger % (Auto) 10.0 (0.0-11.0) % Eos % (Auto) 1.3 (0.0-7.0) % Baso % (Auto) 0.3 (0.0-3.0) % Neut # (Auto) 4.42 (1.7-7.0) K/uL Lymph # (Auto) 3.25 H (0.90-2.90) K/uL [place]ger # (Auto) 0.90 (0.00-0.90) K/UL Eos # (Auto) 0.11 (0.00-0.50) K/uL Baso # (Auto) 0.03 (0.00-0.30) K/uL Abs Immat Gran (auto) 0.03 (0.00-0.30) K/uL Imm/Tot Granulo (auto) 0.3 % D-Dimer Quant (PE/DVT) 0.22 (0.00-0.50) ug/ml Sodium 137 (135-149) mmol/L Potassium 3.4 L (3.6-5.1) mmol/L Chloride 102 (96-114) mmol/L Carbon Dioxide 23 (20-32) mmol/L Anion Gap 12 (7-15) mEq/L BUN 27 (7-30) mg/dL Creatinine 1.6 H (0.5-1.5) mg/dL Estimated Creat Clear 39.51 Estimated GFR 47 ml/min Glucose 101 (60-115) mg/dL Calcium 8.9 (8.4-10.6) mg/dL Magnesium 2.0 (1.5-2.6) mg/dL Total Bilirubin 0.6 (0.1-1.5) mg/dL AST 32 (12-35) U/L ALT 20 (4-50) U/L Alkaline Phosphatase 54 (40-150) U/L Total Protein 7.1 (6.0-8.3) g/dL Albumin 4.5 (3.3-5.0) g/dL SARS-CoV-2 (PCR) Negative SARS-CoV-2 (Negative) Influenza Type A (PCR) Negative PCR FLU A (Negative) Influenza Type B (PCR) Negative PCR FLU B (Negative) RSV (PCR) Negative PCR RSV (Negative) POC Troponin I 0.00 L (0.01-0.04) ng/ml 04/06/24 Range/Units 14:30 WBC (4.50-11.00) K/uL RBC (4.30-5.90) m/uL Hgb (13.5-17.5) gm/dL Hct (37.0-53.0) % MCV (80-100) fL MCH (26-34) pg MCHC (32-36) gm/dL RDW Coeff of Barbara (11.5-15.5) % Plt Count (140-440) K/uL Neut % (Auto) (42.0-72.0) % Lymph % (Auto) (20-44) % [place] % (Auto) (0.0-11.0) % Eos % (Auto) (0.0-7.0) % Baso % (Auto) (0.0-3.0) % Neut # (Auto) (1.7-7.0) K/uL Lymph # (Auto) (0.90-2.90) K/uL [place]ger # (Auto) (0.00-0.90) K/UL Eos # (Auto) (0.00-0.50) K/uL Baso # (Auto) (0.00-0.30) K/uL Abs Immat Gran (auto) (0.00-0.30) K/uL Imm/Tot Granulo (auto) % D-Dimer Quant (PE/DVT) (0.00-0.50) ug/ml Sodium (135-149) mmol/L Potassium (3.6-5.1) mmol/L Chloride (96-114) mmol/L Carbon Dioxide (20-32) mmol/L Anion Gap (7-15) mEq/L BUN (7-30) mg/dL Creatinine (0.5-1.5) mg/dL Estimated Creat Clear Estimated GFR ml/min Glucose (60-115) mg/dL Calcium (8.4-10.6) mg/dL Magnesium (1.5-2.6) mg/dL Total Bilirubin (0.1-1.5) mg/dL AST (12-35) U/L ALT (4-50) U/L Alkaline Phosphatase (40-150) U/L Total Protein (6.0-8.3) g/dL Albumin (3.3-5.0) g/dL SARS-CoV-2 (PCR) (Negative) Influenza Type A (PCR) (Negative) Influenza Type B (PCR) (Negative) RSV (PCR) (Negative) POC Troponin I 0.01 (0.01-0.04) ng/ml Imaging Data Chest x-ray: Attestation: I have reviewed the pertinent imaging results. Radiologist's impression: No evidence of active pulmonary disease. Dictated by Gilbert Tidwell MD @ 04/06/2024 12:51:26 PM ECG Data Attestation: I personally reviewed and interpreted this ECG as follows: Prior ECG tracings: available for review Interpretation: Normal sinus rhythm rate 66 beats per minute, normal intervals, normal axis, no ST or T-wave abnormalities. Looks similar previous EKG on file. Discharge Plan Discharge Clinical Impression: Atypical chest pain Patient Disposition: Home, Self-Care Condition: Stable Instructions: Noncardiac Chest Pain (ED) Additional Instructions: I am not sure exactly was causing chest pain at this time but I do not find any signs of emergent issues. If symptoms persist you should follow-up with your primary care provider. Return to emergency department for new or worsening symptoms. Prescriptions: No Action pravastatin 40 mg tablet 40 mg PO DAILY clonazepam 0.5 mg tablet 0.5 mg PO DAILY mirtazapine 7.5 mg tablet 7.5 mg PO QPM aspirin [Adult Aspirin Regimen] 81 mg tablet,delayed release (DR/EC) 81 mg PO DAILY pantoprazole [Protonix] 20 mg tablet,delayed release (DR/EC) 20 mg PO DAILY Qty: 20 2RF amlodipine 5 mg tablet 5 mg PO DAILY Patient Comments: TAKE 1 TABLET (5 MG) BY MOUTH ONCE DAILY. cephalexin 500 mg capsule 500 mg PO TID Qty: 21 0RF Follow Up/Referrals: Natalie Juárez DO [Primary Care Provider] - Stand Alone Forms: [facility] Info Instructions
[2024-04-06 13:12] LABS: Basophils Absolute Auto 0.03 K/uL (0.00-0.30); Basophils Percent Auto 0.3 % (0.0-3.0); Eosinophils Absolute Auto 0.11 K/uL (0.00-0.50); Eosinophils Percent Auto 1.3 % (0.0-7.0); Hematocrit 43.6 % (37.0-53.0); Hemoglobin* 14.7 gm/dL (13.5-17.5); Immature Granulocytes Abs Auto 0.03 K/uL (0.00-0.30); Immature Granulocytes Pct Auto 0.3 %; Lymphocytes Absolute Auto 3.25 K/uL (0.90-2.90); Lymphocytes Percent Auto 37.3 % (20-44); Mean Corpuscular HGB Conc 34 gm/dL (32-36); Mean Corpuscular Hemoglobin 31 pg (26-34); Mean Corpuscular Volume 91 fL (80-100); Neutrophils Absolute Auto 4.42 K/uL (1.7-7.0); Neutrophils Percent Auto 50.8 % (42.0-72.0); Platelet Count* 248 K/uL (140-440); RDW Coefficient of Variation % 12.4 % (11.5-15.5); Red Blood Count 4.81 m/uL (4.30-5.90); White Blood Count* 8.71 K/uL (4.50-11.00)
[2024-04-06 13:26] LABS: Slide Review Reflex No
[2024-04-06 13:30] LABS: Albumin* 4.5 g/dL (3.3-5.0); Chloride* 102 mmol/L (96-114); Sodium* 137 mmol/L (135-149)
[2024-04-06 13:31] LABS: Potassium* 3.4 mmol/L (3.6-5.1)
[2024-04-06 13:33] LABS: Alkaline Phosphatase* 54 U/L (40-150); Anion Gap 12 mEq/L (7-15); Aspartate Amino Transferase* 32 U/L (12-35); Bilirubin Total* 0.6 mg/dL (0.1-1.5); Blood Urea Nitrogen* 27 mg/dL (7-30); Carbon Dioxide* 23 mmol/L (20-32); Creatinine* 1.6 mg/dL (0.5-1.5); Est. Creatinine Clearance* 39.51; Estimated Glomerular Filt Rate 47 ml/min; Glucose* 101 mg/dL (60-115); Total Protein* 7.1 g/dL (6.0-8.3)
[2024-04-06 13:34] LABS: Alanine Aminotransferase* 20 U/L (4-50); Calcium* 8.9 mg/dL (8.4-10.6)
[2024-04-06 14:04] LABS: D Dimer Quantitative* 0.22 ug/ml (0.00-0.50)
[2024-04-06 14:31] LABS: PCR FLU A Negative PCR FLU A (Negative); PCR FLU B Negative PCR FLU B (Negative); PCR RSV Negative PCR RSV (Negative); SARS PCR* Negative SARS-CoV-2 (Negative)
[2024-04-06 14:44] LABS: Troponin, Point-of-Care* 0.01 ng/ml (0.01-0.04)
== END 2024-04-06 15:02 | disposition home or self-care (01) ==
PROVIDERS: Emergency Provider Student in an Organized Health Care Education/Training Program; PCP Family Medicine
DX: R07.9 Chest pain, unspecified (principal)
CPT/HCPCS: 36415; 71046; 80053; 83735; 84484; 85025; 85379; 87631; 99283; 99284

== ENCOUNTER 2024-06-06 17:35 | Outpatient (CLI) | payer MEDICARE, SELFPAY ==
--- OUTSIDE RECORDS SUMMARY | 2024-06-09 15:43 | XMS_ITS | Data Portability ---
Author Organization [facility] - Toro Al[facility], [facility] Address [address] [place] [address] Care Team Providers Care Paper Bag Press Operator Name Role Phone MARINE HAAS Primary Care Provider [phone] Assessment Encounter Date Assessment Date Assessment LastModified [...] recorded. Lab urinalysis , dipstick 2022 023 [email or web address] [facility], [address], [place], [address], 12:14:01 urinalysis , dipstick 2022 023 [email or web address] [facility], [address], [place], [address], 15:08:08 Referral None recorded. Procedures None recorded. Surgeries None recorded. Imaging None recorded. Medication Orders None recorded. Patient TargetsNo targets recorded. Patient InstructionsNo instructions recorded. Reason for Referral None Reported. Results Created Date Observation Date Name Description Value Unit Range Abnormal Flag Note LastModifiedBy Organization Detail LastModifiedTime 09/27/1909/27/2022 urina lysis , dipst ick Sp Rio-Stat us 1.005 Not Available [facility] [address], [place], [address], 09/27/2022 12:12:58 09/27/19 23 09/27/2022 urina lysis , dipst ick pH-Status 6.0 Not Available [facility] [address], [place], [address], 09/27/2022 12:12:58 09/27/1909/27/2022 urina lysis , dipst ick Nitrates-Sta tus negati ve Not Available [facility] [address], [place], [address], 09/27/2022 12:12:58 09/27/1909/27/2022 urina lysis , dipst ick Blood-Status Trace Not Available [facility] [address], [place], [address], 09/27/2022 12:12:58 09/27/1909/27/2022 urina lysis , dipst ick Leuko-Status Negati ve Not Available [facility] [address], [place], [address], 09/27/2022 12:12:58 02/28/20 23 02/27/2023 urina lysis , dipst ick Color-Status Yellow Not Available [facility] [address], [place], [address], 02/27/2023 15:07:16 02/28/20 23 02/27/2023 urina lysis , dipst ick Clarity-Stat us Clear Not Available [facility] [address], [place], [address], 02/27/2023 15:07:16 02/28/20 23 02/27/2023 urina lysis , dipst ick Glucose-Stat us Negati ve Not Available [facility] [address], [place], [address], 02/27/2023 15:07:16 02/28/20 23 02/27/2023 urina lysis , dipst ick Nitrates-Sta tus negati ve Not Available [facility] [address], [place], [address], 02/27/2023 15:07:16 02/28/20 23 02/27/2023 urina lysis , dipst ick Blood-Status Negati ve Not Available [facility] [address], [place], [address], 02/27/2023 15:07:16 02/28/20 23 02/27/2023 urina lysis , dipst ick Leuko-Status Negati ve Not Available [facility] [address], [place], [address], 02/27/2023 15:07:16 10/02/19 23 09/27/2022 bladd er scan (PROC ) No observ ation record ed. Not Available 2022 22:09:27 03/01/20 23 02/27/2023 bladd er scan (PROC ) No observ ation record ed. BARCODE Not Available 2022 15:39:28 Result Notes None recorded. Procedures Surgical History Date Name Laterality Status Provider Name and Address Organization Details Recorded Time 3 Bladder Scan completed Pilar Smith [facility] 08/22/2023 10:45:31 3 UroCuff completed Erma Alves [facility] 08/08/2023 16:46:48 3 Bladder Scan completed Erma Alves [facility] 08/08/2023 16:22:41 3 Bladder Scan completed Romie Santos [facility] 02/27/2023 15:07:12 3 Bladder Scan completed Venkatesh Ontiveros MD [address] [place] [address], [address], [facility] 09/27/2022 12:46:00 0 colonoscopy completed Pilar Smith [facility] 08/22/2023 10:42:53 Imaging Results Imaging Date [...] Updated DateTime 09/27/2022 168.91 cm 24.6 kg/m2 31903.82 g Miriam Rae [facility] 09/27/2022 12:18:06 Date Recorded Body height Body mass index (BMI) Body weight Provider Name and Address Organization Details Last Updated DateTime 02/27/2023 168.91 cm 24.6 kg/m2 03190.82 g Romie Santos [facility] 02/27/2023 15:03:45 Date Recorded Body height Body mass index (BMI) Body weight Provider Name and Address Organization Details Last Updated DateTime 08/22/2023 168.91 cm 26.2 kg/m2 33602.74 g Pilar Smith [facility] 08/22/2023 10:42:08 Social History Question Answer Notes LastModified by Organizat ion Details LastModified Time Tobacco Smoking Status [facility]/27[facility]2022 12:24:21 What Is Your Level Of Alcohol Consumption? None Information not available 02/27/2023 What Is Your Level Of Caffeine Consumption? Moderate Information not available 02/27/2023 Are You Currently Employed? No Information not available 02/27/2023 When Did You Quit Smoking? 1-5yearssince lastcigarette [email or web address] Information not available 08/22/2023 Recreational Drug Use No Information not available 02/27/2023 What Was The Date Of Your Most Recent Tobacco Screening? 08/22/2023 [email or web address] Information not available 08/22/2023 What Is Your [...] 50 mcg/0.5 mL 06/12/2023 completed Pilar marcelo, [facility] 08/22/2023 10:42:13 Influenza, split virus, quadrivalent, PF 06/12/2023 [facility]/22[facility]23 10:42:13 zoster recombinant [facility]/26[facility]2022 [facility] 17:11:29 zoster recombinant 08/21/2022 [facility] 17:11:29 COVID-19, mRNA, LNP-S, PF, 100 mcg/0.5mL dose or 50 mcg/0.25mL dose 12/21/2020 [facility] 17:11:29 COVID-19, mRNA, LNP-S, PF, 100 mcg/0.5mL dose or 50 mcg/0.25mL dose [facility]17[facility]2021 [facility] 17:11:29 COVID-19, mRNA, LNP-S, PF, 100 mcg/0.5mL dose or 50 mcg/0.25mL dose 03/26/2022 [facility] 17:11:29 COVID-19, mRNA, LNP-S, PF, 100 mcg/0.5mL dose or 50 mcg/0.25mL dose 08/17/2021 [facility] 17:11:29 COVID-19, mRNA, LNP-S, bivalent, PF, 50 mcg/0.5 mL or 25mcg/0.25 mL dose 07/11/2022 completed Jenny marcelo [facility] 07/03/2023 17:11:29 Tdap 07/11/2019 completed Jenny marcelo [facility] 07/03/2023 17:11:29 Influenza, split virus, trivalent, preservative 06/14/2008 completed Jenny marcelo [facility] 07/03/2023 17:11:29 Past Encounters Encounter ID Performer Location Encounter Start Date Encounter Closed Date Diagnosis/Indication Diagnosis SNOMED-CT Code Diagnosis ICD10 Code [id number] Venkatesh Ontiveros MD [facility] [address] [place] [address] 09/27/2022 11:56:38 10/01/2022 14:14:58 Urethral stricture 11143853 N35.919 Recurrent urinary tract infection 770323443 N39.0 [id number] Venkatesh Ontiveros MD [facility] [address] [place] [address] 02/27/2023 14:11:30 03/07/2023 08:28:19 Urethral stricture 37332243 N35.919 Recurrent urinary tract infection 953379669 N39.0 [id number] Erma Alves [facility] [address] [place] [address] 08/08/2023 10:50:58 08/16/2023 11:25:54 Urethral stricture 37905196 N35.919 [id number] Venkatesh Ontiveros MD [facility] [address] [place] [address] 08/22/2023 10:36:02 09/04/2023 10:08:51 Urethral stricture 05744216 N35.919 Recurrent urinary tract infection 925187821 N39.0 Health Concerns Section Related Observation LastModified by Organization Detai ls LastModified Time None Recorded Concern Status LastModified by Organization Details LastModified Time None Recorded Advance Directives Directive None Recorded Payers Encounter Date Sequence Insurance Name Policy Number Policy Bruno Covered Member ID Bruno Member ID Guarantor Name 09/27/2022 1 [place] [facility] Jerry Ballesteros [id number] 6 Jerry Ballesteros 02/27/2023 1 [place] [facility] Jerry Ballesteros [id number] 6 Jerry Ballesteros 08/08/2023 1 [place] [facility] Jerry Ballesteros [id number] 6 Jerry Ballesteros 08/22/2023 1 [place] [facility] Jerry Ballesteros [id number] 6 Jerry Ballesteros Notes Date Note Type Note Provider Name and Address Organization Details Recorded Time 09/27/2022 text/html HPI Notes: Mr. Ballesteros is a very pleasant 67-year-old male with a history of imperforate anus, solitary kidney, and history of urethral stricture disease requiring multiple dilations. Patient states that his last dilation was about 12 [address] Prabhaakr. Was seeing a Grain Merchandiser while living in [place] but it has been quite some time since he has seen a Urologist. No established nephrology care here in [place]. Current urination consists of: urinary frequency with [...] any more than usual. Venkatesh Ontiveros MD [address] [place] [address],[address], [place], [address], [facility] 09/27/2022 12:46:39 02/27/2023 text/html HPI Notes: Mr. Ballesteros is a very pleasant 67-year-old male with a history of imperforate anus, solitary kidney, and history of urethral stricture disease requiring multiple dilations. Patient states that his last dilation was about [address] Prabhakar. Was seeing a Grain Merchandiser while living in [place] but it has been quite some time since he has seen a Urologist. No established nephrology care here in [place]. Current urination consists of: urinary frequency with [...] since started cranberry supplement. Venkatesh Ontiveros MD [address] [place] [address],[address], [place], [address], [facility] 02/27/2023 22:10:59 08/22/2023 text/html HPI Notes: Mr. Ballesteros is a very pleasant 67-year-old male with a history of imperforate anus, solitary kidney, and history of urethral stricture disease requiring multiple dilations. Patient states that his last dilation was about [address] Prabhakar. Was seeing a Grain Merchandiser while living in [place] but it has been quite some time since he has seen a Urologist. No established nephrology care here in [place]. Current urination consists of: urinary frequency with [...] no recent UTIs. Venkatesh Ontiveros MD [address], [place], [address], [facility] 08/22/2023 13:34:58
--- OUTSIDE RECORDS SUMMARY | 2024-06-09 15:43 | XMS_ITS | Clinical Summary ---
Author Organization [employer] [facility] [employer] [employer] Address [place], [place] [address] Care Team Providers Care Parts Lister Name Role Phone Natalie Juárez DO Primary Care Provider [phone] MariluKate alvarado DO Unavailable [phone] Allergies No known active allergies Medications Medication [...] Encounters Date Type Department Care Team Description 06/08/2024 10:10 AM CDT Office Visit [facility] [address] [place] [address] Natalie Juárez, ER Follow up (06/06/24 - Vertigo) 06/08/2024 Travel 06/03/2024 1:00 PM CDT Phone Office Visit [facility] [address] [facility] [address] [place] [address] Kate Pugh DO Medication Management; Phone Visit ([place]) 05/05/2024 11:56 AM CDT - 05/05/2024 11:59 PM CDT Hospital Encounter [facility] [address] [place] [address] Lucian Owens MD Decreased sense of smell 05/05/2024 Travel 04/23/2024 1:15 PM CDT Office Visit [facility] [address] [place] [address] Lucian Owens MD Consult (Decreased sense of smell) 04/23/2024 Travel 04/10/2024 10:40 AM CDT Office Visit [facility] [address] [facility] [place] [address] Minna Vora PA Derm Problem (skin check) 04/10/2024 Travel 03/10/2024 8:20 AM CDT Office Visit [facility] [address] [place] [address] Luis Felipe Acosta, DO Sinus Problem (Just finished prednisone and abx [...] Sign Reading Time Taken Comments Blood Pressure 134/85 06/08/2024 4:21 PM CDT Pulse 67 06/08/2024 10:16 AM CDT Temperature 36.7 ??C (98.1 ??F) 01/14/2023 9:46 AM CD T Respiratory Rate 18 01/14/2023 9:46 AM CDT Oxygen Saturation 98% 06/08/2024 10:16 AM CDT Inhaled Oxygen Concentration - - Weight 73.3 kg (161 lb 9.6 oz) 06/08/2024 10:16 AM CDT Height 170.7 cm (5' 7.21) 02/04/2024 9:08 AM CD T Body Mass Index 25.16 02/04/2024 9:08 AM CDT Plan of Treatment Upcoming Encounters Date Type Department Care Team (Late st Contact Info) Description 06/15/2024 11:15 AM CDT Orders Only [facility] [address] [facility] [place] [address] Lab, [place] 08/10/2024 1:40 PM DOOR LINER Office Visit [facility] [address] [facility] [place] [address] Billy Sanon MD [address] [place] [address] 12/02/2024 1:00 PM CDT Phone Office Visit [facility] [address] [place] [phone] Kate Pugh DO [address] [place] [address] Health Maintenance Due Date Last Done Comments Pneumococcal series for age 65+ (1 of 1 - PCV) 2022 COVID-19 vaccine series ( - 2023- season) 2024 06/12/2023, 07/11/2022, 03/26/2022, Additional history exists Influenza for age 65+ 05/03/2024 06/12/2023, 008 BMI (ht and wt on same day) for age 18+ 02/03/2025 02/04/2024, 01/14/2023, 01/08/2023, Additional history exists Depression screening for age 12+ 02/03/2025 02/04/2024, 11/11/2023, 11/06/2023, Additional history exists Medicare Wellness for age 65+ 02/04/2025, 01/08/2023, 01/02/2022 Lipids for age 45-75 02/03/2029 02/04/2024, 06/22/2022, 01/20/2020 (Completed outside of [facility]), Additional history exists Tetanus booster 07/11/2029 07/11/2019, 04/16/2006 Colonoscopy through age 75 03/03/203003/03 (Completed outside of [facility]) Tdap Completed 07/11/2019, 04/16/2006 Hepatitis C screening for ag e 18-79 Completed 01/02/2022 Zoster (shingles) series for age 50+ Completed 08/21/2022, 03/26/2022 AAA screening age 65-74 Completed 09/24/2022 Procedures Procedure Name Priority Date/Time Associated Diagnosis Comments PSA (TOTAL) (QUEST) Routine 06/08/2024 10:56 AM CDT Rising PSA level MR HEAD BRAIN WWO Routine 05/05/2024 1:0 1 PM CDT Decreased sense of smell PATH TISSUE EXAM Routine 04/10/2024 2:57 PM CDT Neoplasm of uncertain behavior of skin LIPID PANEL W REFLEX MEASURED LDL Routine 02/04/2024 9:53 AM CDT Hyperlipidemia, unspecified hyperlipidemia type US ABD AORTA SCREENING Routine 09/24/2022 9:16 AM DOOR LINER Screening for AAA (aortic abdominal aneurysm) ANTI HCV Routine 01/02/2022 10:46 AM CDT Encounter for hepatitis C screening test for low risk patient from Last 3 Months or Most Recently Relevant to Health Maintenance Results * PSA (TOTAL) (QUEST) (06/08/2024 10:56 AM CDT) PSA, TOTAL 1.06 < OR = 4.00 ng/mL [employer] Comment: The total PSA value from this assay system is standardized against the WHO standard. The test result will be approximately 20% lower when compared to the equimolar-standardized total PSA ([place]). Comparison of serial PSA results should be interpreted with this fact in mind. This test was performed using the Siemens chemiluminescent method. Values obtained from different assay methods cannot be used interchangeably. PSA levels, regardless of value, should not be interpreted as absolute evidence of the presence or absence of disease. Blood BLOOD SPECIMEN / Unknown 06/08/2024 10:56 AM CDT 06/08/2024 10:56 AM CDT Natalie Juárez DO SEND OUTS [facility] [address] [place] [address], [facility] [address] [place] [address] * MR HEAD BRAIN WWO (05/05/2024 1:01 [...] MD @ 05/05/2024 1:52:34 PM (Electronically Signed) Madhav-Darien Owens MD MR * PATH TISSUE EXAM (04/10/2024 2:57 PM CDT) Case Report Pathology Report ?Case: [id number] ? Authorizing Provider: ??Minna Vora PA ? Collected: ? 04/10/2024 1457 ? Ordering Location: ? [facility] ??Received: ?04/10/2024 1457 ? Clinic ? Pathologist: ? Joaquim Byrd MD ? Specimen: ?Right neck, right trapezial neck ? 04/15/2024 10:46 AM [facility] Final Diagnosis SKIN, RIGHT TRAPEZIAL NECK, BIOPSY: 1. Pigmented keratosis, see comment 2. Negative for malignancy 04/15/2024 10:46 AM [facility] [employer] [facility] Comment The biopsy shows sun damaged skin with basilar hyperpigmentation and mild keratinocyte atypia. The differential diagnosis includes pigmented macular seborrheic keratosis, pigmented actinic keratosis and a solar lentigo. Please correlate clinically to determine appropriate follow up. 04/15/2024 10:46 AM [facility] Clinical Information Rule out atypia. 04/15/2024 10:46 AM [facility] [employer] [facility] Gross Description A) Received in formalin, labeled with the patient's name and A) right trapezial neck, is a 0.6 x 0.5 x 0.1 cm skin biopsy. There is a 0.2 x 0.2 x 0.1 cm flat brown-black ??lesion. The specimen is inked yellow, bisected and entirely submitted in one cassette. TLF 2024 ?? 04/15/2024 10:46 AM [facility] [employer] [facility] Microscopic Description The final diagnosis is based on microscopic examination of appropriate sections of all specimens. The epidermis shows basilar hyperpigmentation, mild elongation of the rete, and mild nuclear enlargement and slight disorganization of the basilar keratinocytes. Within the dermis there is solar elastosis. The presence of ??yellow ink is confirmed on tissue sections. 04/15/2024 10:46 AM [facility] Additional Information Interpreted at [facility] - [address], [place] [address] 04/15/2024 10:46 AM CDT [facility] Other (Right neck) Non-Blood / Unknown 04/10/2024 2:57 PM CDT 04/10/2024 2:57 PM CDT Minna ANDRADE PATHOLOGY/CYTOLOGY [facility] [address] [place] [address], * LIPID PANEL W REFLEX MEASURED LDL (02/04/2024 9:53 AM CDT) CHOLESTEROL,TOTAL 198 100 - 199 mg/dL 02/04/2024 6:48 PM CDT [facility] Comment: Cholesterol, Total Reference Ranges Desirable <200 mg/dL Borderline 200-239 mg/dL High >=240 mg/dL TRIGLYCERIDES 119 <150 mg/dL 02/04/2024 6:48 PM CDT [facility] HDL CHOLESTEROL 67 >40 mg/dL 6:48 PM CDT [facility] NON-HDL CHOLESTEROL 131 <145 mg/dl 02/04/2024 6:48 PM CDT [facility] CHOL/HDL RATIO 2.96 <4.50 02/04/2024 6:48 PM CDT [facility] LDL CHOLESTEROL 107 <=130 mg/dL 02/04/2024 6:48 PM CDT [facility] VLDL CHOLESTEROL 24 <=30 mg/dL 02/04/2024 6:48 PM CDT [facility] PROVIDER ORDERED STATUS RANDOM 02/04/2024 6:48 PM CDT [facility] Blood BLOOD SPECIMEN / Unknown Venipuncture / Unknown 02/04/2024 9:53 AM CDT 02/04/2024 9:53 AM CDT Natalie Juárez DO CHEMISTRY [facility] [address] [place] [address], [place] * US ABD AORTA SCREENING [[id number]] (09/24/2022 9:16 AM DOOR LINER) Anatomical Region Laterality Modality Abdomen, AORTA Ultrasound 09/24/2022 10:4 1 AM DOOR LINER Impressions 09/24/2022 10:41 AM DOOR LINER Normal sonographic assessment of the abdominal aorta. Dictated by Colin Dumas MD @ Sep 24 2022 10:41AM (Electronically Signed) ?? Narrative 09/24/2022 10:41 AM DOOR LINER For Patients: ??As a result of the [...] asia Non-React asia 01/02/2022 6:27 PM CDT [facility] Comment:Antibodies to HCV no t detected; does not exclude the possibility of exposure to HCV. Blood BLOOD SPECIMEN / Unknown Venipuncture / Unknown 01/02/2022 10:46 AM CDT 01/02/2022 10:47 AM CDT Natalie Juárez DO SEND OUTS [employer] [address] [place] [address], from Last 3 Months or Most Recently Relevant to Health Maintenance Care Teams Parts Lister Relationship Specialty Start Date End Date Natalie Juárez DO [address] [place] [address] PCP - General Family Practice 03/01/21 Kate Pugh DO [address] [place] [address] Psychiatry 02/04/23
== END 2024-06-06 17:36 | disposition home or self-care (01) ==
LOC: AMB 06-09 15:41
PROVIDERS: PCP Family Medicine; Visit Provider Emergency Medicine
DX: R42 Dizziness and giddiness (principal)
CPT/HCPCS: A0425; A0429

== ENCOUNTER 2024-06-06 18:04 | Emergency (ER) | payer MEDICARE, SELFPAY ==
[2024-06-06 18:19] VITALS: BP 162/90; PULSE 69; RESP 18; TEMP 36.8; O2SAT 98; BMI 23.8
--- NOTE | 2024-06-06 18:56 | ED.GENADULT ---
HPI - General Adult General Date Seen: 06/06/24 Chief complaint: Dizziness/Vertigo Stated complaint: Vertigo Time Seen by Provider: 06/06/24 18:36 History of Present Illness HPI narrative: Pleasant 69-year-old gentleman with a past medical history of anxiety, dyslipidemia, hypertension, presents to the ER today by EMS from his home for evaluation of a episode of vertigo. He has been healthy and well lately and was today. He got up early this morning at about 5:30 a.m., his usual time he did usual activities today. He did do some exercise and walking and then when out for coffee and cookies with his friends. He ate a peanut butter sandwich for lunch and had an active afternoon. He was eating dinner around 4:00 p.m., his usual time. He had eaten a microwave dinner of chicken and mashed potatoes. He is pretty sure he did not under cook it. After dinner he was having a bowl of cereal and was moving from his kitchen into his living room to watch TV and said his serial on a small table. At some point as he was sitting down to eat cereal he had abrupt onset of spinning unsteadiness and vertigo. Symptoms were quite intense and lasted about 1-3 minutes and then resolved on their own. He describes the room spinning and feeling nauseous. He did not have any headache. No tinnitus or trouble with hearing. No double vision or blurry vision. No vomiting. No facial numbness or droop. No arm or leg numbness or weakness. He has had occasional brief episodes of vertigo related to changing position or turning his head over the past couple years but has not had an episode that is been this intense before. Vertigo completely resolved. He call the [facility] and notes that he did get very anxious because of the vertigo. He is feeling completely back to normal now. He did not have any chest pain. No palpitations. No shortness of breath. He is belching, which is a normal symptom for him after he has his vertigo spells per Related Data Home Medications ?Medication ?Instructions ?Recorded ?Confirmed clonazepam 0.5 mg tablet 0.5 mg PO DAILY 12/02/22 04/06/24 mirtazapine 7.5 mg tablet 7.5 mg PO QPM 12/02/22 04/06/24 pravastatin 40 mg tablet 40 mg PO DAILY 12/02/22 04/06/24 amlodipine 5 mg tablet 5 mg PO DAILY 03/11/23 04/06/24 aspirin 81 mg tablet,delayed 81 mg PO DAILY 09/06/23 04/06/24 release (Adult Aspirin Regimen) Previous Rx's ?Medication ?Instructions ?Recorded pantoprazole 20 mg tablet,delayed 20 mg PO DAILY #20 tabs 10/01/23 release (Protonix) cephalexin 500 mg capsule 500 mg PO TID #21 caps 03/30/24 Allergies Allergy/AdvReac Type Severity Reaction Status Date / Time No Known Drug Allergies Allergy Verified 04/06/24 12:17 [facility] Social History Smoking Status: Never smoker Do you use any of these nicotine containing products: None How often do you have a drink containing alcohol: never How often do you have six or more drinks on one occasion: Never AUDIT-C Alcohol total score: 0 Non-prescribed substance use: denies use service: No Exam Narrative: Exam Narrative: Constitutional: Appears well-developed and well-nourished. Alert. Conversant. Non toxic. HENT: Head: Atraumatic. Exam head try Nose: Nose normal. Mouth/Throat: Oral mucosa is clear and moist. no trismus. Pharynx normal. Tonsils symmetric. No tonsillar enlargement, erythema, or exudate. Eyes: Conjunctivae normal. EOM normal. Pupils equal, round, and reactive to light. No scleral icterus. Neck: Normal range of motion. Neck supple. No tracheal deviation present. Cardiovascular: Normal rate, regular rhythm. No gallop. No friction rub. No murmur heard. Symmetric radial artery pulses Pulmonary/Chest: Effort normal. No stridor. No respiratory distress. No wheezes. No rales. No rhonchi . No tenderness. Abdominal: Soft. Bowel sounds normal. No distension. No mass. No tenderness. No rebound. No guarding. Musculoskeletal: RUE: Normal range of motion. No tenderness. No deformity LUE: Normal range of motion. No tenderness. No deformity RLE: Normal range of motion. No edema. No tenderness. No deformity LLE: Normal range of motion. No edema. No tenderness. No deformity Lymph: No cervical adenopathy. Neurological: Mental status normal. Attention normal. Alert and oriented x3. GCS 15. Memory normal. Speech fluent. Cognition normal. Cranial Nerves intact II-XII except I did not formally test gag or visual acuity. EOMI. Palate elevates symmetrically and tongue protrudes in the midline. Strength: 5/5 trapezius on the right and left 5/5 deltoid on the right and left 5/5 biceps on the right and left 5/5 triceps on the right and left 5/5 assistant city attorney on the right and left 5/5 thumb opposition on the right and left 5/5 finger abduction on the right and left 5/5 hip flexors (L3) on the right and left 5/5 quadriceps (L4) on the right and left 5/5 tibialis anterior on the right and left 5/5 EHL (L5) on the right and left 5/5 gastrocnemius (S1) on the right and left 5/5 hamstring on the right and left Sensation intact to light touch in both upper extremities (C4-T1) Sensation intact to light touch in Both lower extremities (L4-S1). Finger to nose and coordination normal. Gait normal. Steady gait in the hallway to the bathroom and back. Skin: Skin is warm and dry. No rash noted. No pallor. Normal capillary refill. Psychiatric: Normal mood. Normal affect. Const: Vital Signs, click to edit/add: Vital Signs - 24 hr 06/06/24 18:19 Temperature 98.2 F Pulse Rate [Pulse Oximeter] 69 Respiratory Rate 18 Blood Pressure [Ri ght Upper Arm] 162/90 H Pulse Oximetry 98 Oxygen Delivery Me thod Room Air Course Vital Signs Vital signs: Initial Vital Signs Temperature 98.2 F 06/06/24 18:19 Temperature Source Temporal Artery Scan 06/06/24 18:19 Pulse Rate 69 06/06/24 18:19 Respiratory Rate 18 06/06/24 18:19 Blood Pressure 162/90 H 06/06/24 18:19 Blood Pressure Mean 114 H 06/06/24 18:19 Pulse Oximetry 98 06/06/24 18:19 Oxygen Delivery Method Room Air 06/06/24 18:19 Vital Signs Temperature 98.2 F 06/06/24 18:19 Pulse Rate 69 06/06/24 18:19 Respiratory Rate 18 06/06/24 18:19 Blood Pressure 162/90 H 06/06/24 18:19 Pulse Oximetry 98 06/06/24 18:19 Oxygen Delivery Method Room Air 06/06/24 18:19 Temperature 98.2 F 06/06/24 18:19 Pulse Rate 69 06/06/24 18:19 Respiratory Rate 18 06/06/24 18:19 Blood Pressure 162/90 H 06/06/24 18:19 Pulse Oximetry 98 06/06/24 18:19 Oxygen Delivery Method Room Air 06/06/24 18:19 Medical Decision Making MDM Narrative Medical decision making narrative: This patient presents for evaluation of dizziness c/w a brief self-limited episode of vertigo that occurred at home tonight. The differential diagnosis of vertigo is broad and includes common etiologies such as menieres disease, labyrinthitis, benign positional vertigo, otitis media, etc. More serious etiologies considered include central etiologies such as tumor, intracerebral bleed, dissection, ischemic cerebral vascular accident. The history, physical exam including detailed neurologic exam, and workup in the emergency room suggests a benign cause of vertigo today. Patient feels improved after interventions noted above. Further outpatient management is indicated with vertigo medications. He has no ongoing symptoms. At this point in discussion with the patient we agree that further workup with CT scan, CT angio, or admission for MRI would not be indicated. Overall based on the very brief nature of this vertigo suspect it was probably BPPV. Very unlikely to have been TIA given brief duration. However precautions for return to the ER if he does have any more episodes of vertigo or develops any other symptoms were carefully reviewed He did not have any chest pain, palpitations. He gives a good description of spinning vertigo and nausea but not lightheadedness or dizziness to suggest a presyncopal event, cardiac arrhythmia, or acute coronary syndrome. At this point I do not think he needs cardiac workup. Vertigo precautions given for home. Discharge Plan Discharge Clinical Impression: Vertigo Patient Disposition: Home, Self-Care Condition: Stable Instructions: Vertigo (ED) Additional Instructions: As we discussed, please monitor for any recurring symptoms. If you have any more episodes of vertigo or any symptoms lasting more than 2 minutes come back to the ER right away. Also, come back to the ER right away if you develop other symptoms; such as numbness or tingling in your face or arms or legs, headache, vomiting, blurry vision, chest pain, or if you have any other problems. Please recheck with your regular doctor within the next 2-3 days.. Prescriptions: No Action pravastatin 40 mg tablet 40 mg PO DAILY clonazepam 0.5 mg tablet 0.5 mg PO DAILY mirtazapine 7.5 mg tablet 7.5 mg PO QPM aspirin [Adult Aspirin Regimen] 81 mg tablet,delayed release (DR/EC) 81 mg PO DAILY pantoprazole [Protonix] 20 mg tablet,delayed release (DR/EC) 20 mg PO DAILY Qty: 20 2RF amlodipine 5 mg tablet 5 mg PO DAILY Patient Comments: TAKE 1 TABLET (5 MG) BY MOUTH ONCE DAILY. cephalexin 500 mg capsule 500 mg PO TID Qty: 21 0RF Follow Up/Referrals: Natalie Juárez DO [Primary Care Provider] - Stand Alone Forms: [employer] Info Instructions
--- OUTSIDE RECORDS SUMMARY | 2024-06-06 19:37 | XMS_ITS | Clinical Summary ---
Author Organization [facility] Address [place], [place] [address] Care Team Providers Care Shirring Machine Operator Automatic Name Role Phone Natalie Juárez DO Primary Care Provider [phone] MariluKate alvarado DO Unavailable [phone] Allergies No known active allergies Medications Medication [...] 0 06/22/2022 Active pravastatin (PRAVACHOL) 40 mg tabletIndications:M ixed hyperlipidemia Take 1 Tablet (40 mg) by mouth once daily. 90 Tablet 2 11/05/2023 Active amLODIPine (NORVASC) 5 mg tabletIndications:E ssential hypertension TAKE 1 TABLET (5 MG) BY MOUTH ONCE DAILY. 90 Tablet 2 01/09/2024 Active hydrocortisone 2.5% creamIndications:An al irritation Apply topically to affected area(s) two times daily. 30 g 02/04/2024 Active clonazePAM (KLONOPIN) 0.5 mg tabletIndications:G eneralized anxiety disorder with panic attacks TAKE 1 TABLET (0.5 MG) BY MOUTH ONCE DAILY and second dose 0.5mg (1 tab) IF NEEDED FOR ANXIETY. TO LAST AT LEAST 30 DAYS. 45 Tablet 5 02/18/2024 Active fluticasone (50 mcg per actuation) nasal solution (FLONASE)Indication s:Metallic taste Inhale 2 Sprays to both nostrils once daily. 16 g 1 03/10/2024 Active loperamide (IMODIUM) 2 mg capsuleIndications: Chronic diarrhea Take 2 capsules (4mg) orally with 1st loose stool, then 1 capsule (2mg) with other loose stools. Max 16 mg in 24 hrs. 270 Capsule 1 06/02/2024 Active mirtazapine (REMERON) 7.5 mg tabletIndications:I nsomnia, idiopathic Take 1 Tablet (7.5 mg) by mouth at bedtime. 90 Tablet 3 06/03/2024 Active loperamide (IMODIUM) 2 mg capsuleIndications: Chronic diarrhea Take 2 capsules (4mg) orally with 1st loose stool, then 1 capsule (2mg) with other loose stools. Max 16 mg in 24 hrs. 270 Capsule 1 02/04/2024 4 Discontinue d(Reorder (E-cancel not sent)) mirtazapine (REMERON) 7.5 mg tabletIndications:I nsomnia, idiopathic Take 1 Tablet (7.5 mg) by mouth at bedtime. 90 Tablet 1 02/18/2024 4 Discontinue d(Reorder (E-cancel not sent)) Active Problems Problem Noted Date Diagnosed Date Moderate episode of recurrent major depressive d isorder 10/07/2023 BPH 04/17/2021 Congenital anomaly of kidney 04/17/2021 Congenital imperforate anus 04/17/2021 Chronic eczema 04/17/2021 Hyperlipidemia, unspecified 04/17/2021 Insomnia, idiopathic 04/17/2021 Depression, major, single episode, mild 03/01/20 21 Generalized anxiety disorder 03/01/2021 H/O urethral stricture 03/01/2021 Overview (03/01/2021): Reports history of requiring urethral dilation Onychomycosis 03/01/2021 Essential hypertension 02/18/2017 Benign hypertensive renal disease 03/26/2014 Stage 3 chronic kidney disease 03/26/2014 Chronic diarrhea 09/09/2008 Overview (09/09/2008): Born with Imperforate Anus: Lifelong Issues with Stool Frequency/Control Hypospadias 09/09/2008 Hyperlipidemia 04/15/2007 Resolved Problems Problem Noted Date Diagnosed Date Resolved Date Achilles bursitis or tendinitis 03/14/2009 03/01/2021 Special screening for malign ant neoplasm of prostate 03/09/2008 03/01/2021 Routine general medical exam ination at a health care facility 04/15/2007 03/01/2021 Overview (04/15/2007): Neg High Level Stress Test 01/22/2005 Encounters Date Type Department Care Team Description 06/03/2024 1:00 PM CDT Phone Office Visit [facility] [address] [place] [address] Kate Pugh, Medication Management; Phone Visit ([place]) 05/05/2024 11:56 AM CDT - 05/05/2024 11:59 PM CDT Hospital Encounter [facility] [address] [place] [address] Lucian Owens MD Decreased sense of smell 05/05/2024 Travel 04/23/2024 1:15 PM CDT Office Visit [facility] [address] [place] [address] Lucian Owens MD Consult (Decreased sense of smell) 04/23/2024 Travel 04/10/2024 10:40 AM CDT Office Visit [facility] [address] [place] [address] Minna Vora PA Derm Problem (skin check) 04/10/2024 Travel 03/10/2024 8:20 AM CDT Office Visit [facility] [address] [place] [address] Luis Felipe Acosta, Sinus Problem (Just finished prednisone and abx yesterday - would like recheck of the face) 03/10/2024 Travel from Last 3 Months Immunizations Name Administration Dates Next Due COVID-19 VACCINE SPIKEVAX (M ODERNA 50MCG/0.5ML) 12YO+ PFS 06/12/2023 COVID-19 vaccine (Moderna 100mcg/0.5mL) PF, MDV [...] Care Team (Late st Contact Info) Description 06/15/2024 11:15 AM CDT Orders Only [facility] [address] [place] [address] [place], [place] 08/10/2024 1:40 PM SIZING MACHINE OPERATOR Office Visit [facility] [address] [place] [address] Billy Sanon MD [address] [place] [address] 12/02/2024 1:00 PM CDT Phone Office Visit [facility] [address] [facility] [address] [place] [phone] Kate Pugh DO [address] [facility] [address] [place] [address] Health Maintenance Due Date Last Done Comments Pneumococcal series for age 65+ (1 of 1 - PCV) 2022 COVID-19 vaccine series ( season) 2024 06/12/2023, 07/11/2022, 03/26/2022, Additional history exists Influenza for age 65+ 05/03/2024 06/12/2023, 008 BMI (ht and wt on same day) for age 18+ 02/03/2025 02/04/2024, 01/14/2023, 01/08/2023, Additional history exists Depression screening for age 12+ 02/03/2025 02/04/2024, 11/11/2023, 11/06/2023, Additional history exists Medicare Wellness for age 65+ 02/04/2025, 01/08/2023, 01/02/2022 Lipids for age 45-75 02/03/2029 02/04/2024, 06/22/2022, 01/20/2020 (Completed outside of [facility]), Additional history exists Tetanus booster 07/11/2029 07/11/2019, 04/16/2006 Colonoscopy through age 75 03/03/203003/03 (Completed outside of [facility]) Tdap Completed 07/11/2019, 04/16/2006 Hepatitis C screening for ag e 18-79 Completed 01/02/2022 Zoster (shingles) series for age 50+ Completed 08/21/2022, 03/26/2022 AAA screening age 65-74 Completed 09/24/2022 Procedures Procedure Name Priority Date/Time Associated Diagnosis Comments MR HEAD BRAIN WWO Routine 05/05/2024 1:0 1 PM CDT Decreased sense of smell PATH TISSUE EXAM Routine 04/10/2024 2:57 PM CDT Neoplasm of uncertain behavior of skin LIPID PANEL W REFLEX MEASURED LDL Routine 02/04/2024 9:53 AM CDT Hyperlipidemia, unspecified hyperlipidemia type US ABD AORTA SCREENING Routine 09/24/2022 9:16 AM SIZING MACHINE OPERATOR Screening for AAA (aortic abdominal aneurysm) ANTI HCV Routine 01/02/2022 10:46 AM CDT Encounter for hepatitis C screening test for low risk patient from Last 3 Months or Most Recently Relevant to Health Maintenance Results * MR HEAD BRAIN WWO (05/05/2024 1:01 PM CDT) Anatomical Region Laterality Modality BRAIN, HEAD Magnetic Resonan ce 05/05/2024 1:52 PM CDT Impressions 05/05/2024 1:52 PM CDT 1. No acute infarction or other acute intracranial pathology. 2. No mass or pathologic enhancement at the anterior skull base or elsewhere within the brain. The olfactory bulbs are normal in appearance. 3. Mild chronic microvascular ischemic changes. Dictated by Ayaan Lynn MD @ 05/05/2024 1:52:34 PM (Electronically Signed) Narrative 05/05/2024 1:52 PM CDT For Patients: ??As a result of the Cures Act, medical imaging exams and procedure reports are released immediately into your electronic medical record. ??You may view this report before your referring provider. ??If you have questions, please contact your health care provider. INDICATION: Decreased sense of smell. TECHNIQUE: Brain/skull base MRI with and without contrast. 15 cc Dotarem gadolinium based contrast administered. COMPARISON: None. FINDINGS: No mass or abnormal enhancement involving the structures at the anterior inferior cranial fossa. Olfactory bulbs are normal in appearance. No ethmoid lesions. The paranasal sinuses are well aerated. No evidence of acute ischemia. No evidence of acute or chronic intracranial blood products. No mass or pathologic intracranial enhancement. Scattered FLAIR hyperintensities throughout the supratentorial white matter, typical for chronic microvascular ischemic change. No hydrocephalus or extra-axial collections. The pituitary gland, parasellar structures and optic chiasm are normal. Posterior fossa is normal. All the major intracranial vascular structures demonstrate normal flow-related signal. The orbital contents are normal. No calvarial or skull base marrow signal abnormality. No extracranial soft tissue findings. Procedure Note Ayaan Lynn MD - 05/05/2024 For Patients: As a result of the Cures Act, medical imagingexams and procedure reports are released immediately into your electronicmedical record. You may view this report before your referring provider.If you have questions, please contact your health care provider. INDICATION: Decreased sense of smell. TECHNIQUE: Brain/skull base MRI with and without contrast. 15 cc Dotarem gadoliniumbased contrast administered. COMPARISON: None. FINDINGS: No mass or abnormal enhancement involving the structures at the anteriorinferior cranial fossa. Olfactory bulbs are normal in appearance. Noethmoid lesions. The paranasal sinuses are well aerated. No evidence of acute ischemia. No evidence of acute or chronicintracranial blood products. No mass or pathologic intracranialenhancement. Scattered FLAIR hyperintensities throughout thesupratentorial white matter, typical for chronic microvascular ischemicchange. No hydrocephalus or extra-axial collections. The pituitary gland,parasellar structures and optic chiasm are normal. Posterior fossa isnormal. All the major intracranial vascular structures demonstrate normalflow-related signal. The orbital contents are normal. No calvarial or skull base marrow signalabnormality. No extracranial soft tissue findings. IMPRESSION: 1. No acute infarction or other acute intracranial pathology. 2. No mass or pathologic enhancement at the anterior skull base orelsewhere within the brain. The olfactory bulbs are normal in appearance. 3. Mild chronic microvascular ischemic changes. Dictated by Ayaan Lynn MD @ 05/05/2024 1:52:34 PM (Electronically Signed) Lucian Owens MD MR * PATH TISSUE EXAM (04/10/2024 2:57 PM CDT) Case Report Pathology Report ?Case: [id number] ? Authorizing Provider: ??Minna Vora PA ? Collected: ? 04/10/20247 ? Ordering Location: ? [facility] ??Received: ?04/10/2024 1457 ? Clinic ? Pathologist: ? Joaquim Byrd MD ? Specimen: ?Right neck, right trapezial neck ? 04/15/2024 10:46 AM T [facility] Final Diagnosis SKIN, RIGHT TRAPEZIAL NECK, BIOPSY: 1. Pigmented keratosis, see comment 2. Negative for malignancy 04/15/2024 10:46 AM [facility] Comment The biopsy shows sun damaged skin with basilar hyperpigmentation and mild keratinocyte atypia. The differential diagnosis includes pigmented macular seborrheic keratosis, pigmented actinic keratosis and a solar lentigo. Please correlate clinically to determine appropriate follow up. 04/15/2024 10:46 AM T [facility] Clinical Information Rule out atypia. 04/15/2024 10:46 AM [facility] Gross Description A) Received in formalin, labeled with the patient's name and A) right trapezial neck, is a 0.6 x 0.5 x 0.1 cm skin biopsy. There is a 0.2 x 0.2 x 0.1 cm flat brown-black ??lesion. The specimen is inked yellow, bisected and entirely submitted in one cassette. TLF 2024 ?? 04/15/2024 10:46 AM CDT [facility] Microscopic Description The final diagnosis is based on microscopic examination of appropriate sections of all specimens. The epidermis shows basilar hyperpigmentation, mild elongation of the rete, and mild nuclear enlargement and slight disorganization of the basilar keratinocytes. Within the dermis there is solar elastosis. The presence of ??yellow ink is confirmed on tissue sections. 04/15/2024 10:46 AM CDT [facility] Additional Information Interpreted at [facility] - [address] [facility] [address], [place] [address] 04/15/2024 10:46 AM T [facility] Other (Right neck) Non-Blood / Unknown 04/10/2024 2:57 PM CDT 04/10/2024 2:57 PM CDT Minna ANDRADE PATHOLOGY/CYTOLOGY [facility] [address] [place] [address], * LIPID PANEL W REFLEX MEASURED LDL (02/04/2024 9:53 AM CDT) CHOLESTEROL,TOTAL 198 100 - 199 mg/dL 02/04/2024 6:48 PM CDT [facility] Comment: Cholesterol, Total Reference Ranges Desirable <200 mg/dL Borderline 200-239 mg/dL High >=240 mg/dL TRIGLYCERIDES 119 <150 mg/dL 02/04/2024 6:48 PM CDT [facility] HDL CHOLESTEROL 67 >40 mg/dL 6:48 PM CDT [facility] NON-HDL CHOLESTEROL 131 <145 mg/dl 02/04/2024 6:48 PM CDT [facility] CHOL/HDL RATIO 2.96 <4.50 02/04/2024 6:48 PM CDT [facility] LDL CHOLESTEROL 107 <=130 mg/dL 02/04/2024 6:48 PM CDT [facility] VLDL CHOLESTEROL 24 <=30 mg/dL 02/04/2024 6:48 PM CDT [facility] PROVIDER ORDERED STATUS RANDOM 02/04/2024 6:48 PM CDT [facility] Blood BLOOD SPECIMEN / Unknown Venipuncture / Unknown 02/04/2024 9:53 AM CDT 02/04/2024 9:53 AM CDT Natalie Mendesrichard DO [facility] [address] [place] [address], [place] * US ABD AORTA SCREENING [[id number]] (09/24/2022 9:16 AM SIZING MACHINE OPERATOR) Anatomical Region Laterality Modality Abdomen, AORTA Ultrasound 09/24/2022 10:4 1 AM SIZING MACHINE OPERATOR Impressions 09/24/2022 10:41 AM SIZING MACHINE OPERATOR Normal sonographic assessment of the abdominal aorta. Dictated by Colin Dumas MD @ Sep 24 2022 10:41AM (Electronically Signed) ?? Narrative 09/24/2022 10:41 AM SIZING MACHINE OPERATOR For Patients: ??As a result of [...] Sep 24 2022 10:41AM (Electronically Signed) Natalie BLACK * ANTI HCV (01/02/2022 10:46 AM CDT) HEPATITIS C ANTIBODY Non-React asia Non-React asia 01/02/2022 6:27 PM CDT [facility] Comment:Antibodies to HCV no t detected; does not exclude the possibility of exposure to HCV. Blood BLOOD SPECIMEN / Unknown Venipuncture / Unknown 01/02/2022 10:46 AM CDT 01/02/2022 10:47 AM CDT Natalie Aliya Marquita GIRON [facility] [address] [place] [address], [place] from Last 3 Months or Most Recently Relevant to Health Maintenance Care Teams Shirring Machine Operator Automatic Relationship Specialty Start Date End Date Natalie Juárez DO [address] [place] [address] PCP - General Family Practice 03/01/21 Kate Pugh DO [address] [place] [address] Psychiatry 02/04/23
--- OUTSIDE RECORDS SUMMARY | 2024-06-06 19:37 | XMS_ITS | Data Portability ---
Author Organization [facility] - Toro Albrechtlo [facility], [facility] Address [address] [place] [address] Care Team Providers Care Technology Analyst Name Role Phone MARINE HAAS Primary Care Provider [phone] Assessment Encounter Date Assessment Date Assessment LastModified [...] recorded. Lab urinalysis , dipstick 2022 023 [id number] [facility], [address], [place], [address], 12:14:01 urinalysis , dipstick 2022 023 [email or web address] [facility], [address], [place], [address], 15:08:08 Referral None recorded. Procedures None recorded. Surgeries None recorded. Imaging None recorded. Medication Orders None recorded. Patient TargetsNo targets recorded. Patient InstructionsNo instructions recorded. Reason for Referral None Reported. Results Created Date Observation Date Name Description Value Unit Range Abnormal Flag Note LastModifiedBy Organization Detail LastModifiedTime 09/27/1909/27/2022 urina lysis , dipst ick Sp Mora-Stat us 1.005 Not Available [facility] [address], [place], [address], 09/27/2022 12:12:58 09/27/19 23 09/27/2022 urina lysis , dipst ick pH-Status 6.0 Not Available [facility] [address], [place], [address], 09/27/2022 12:12:58 09/27/1909/27/2022 urina lysis , dipst ick Nitrates-Sta tus negati ve Not Available [facility] [address], [place], [address], 09/27/2022 12:12:58 09/27/1909/27/2022 urina lysis , dipst ick Blood-Status Trace Not Available [facility] [address], [place], [address], 09/27/2022 12:12:58 09/27/1909/27/2022 urina lysis , dipst ick Leuko-Status Negati ve Not Available [facility] [address], [place], [address], 09/27/2022 12:12:58 02/28/20 23 02/27/2023 urina lysis , dipst ick Color-Status Yellow Not Available [facility] [address], [place], [address], 02/27/2023 15:07:16 02/28/20 23 02/27/2023 urina lysis , dipst ick Clarity-Stat us Clear Not Available [facility] [address], [place], [address], 02/27/2023 15:07:16 02/28/20 23 02/27/2023 urina lysis , dipst ick Glucose-Stat us Negati ve Not Available [facility] [address], [place], [address], 02/27/2023 15:07:16 02/28/20 23 02/27/2023 urina lysis , dipst ick Nitrates-Sta tus negati ve Not Available [facility] [address], [place], [address], 02/27/2023 15:07:16 02/28/20 23 02/27/2023 urina lysis , dipst ick Blood-Status Negati ve Not Available [facility] [address], [place], [address], 02/27/2023 15:07:16 02/28/20 23 02/27/2023 urina lysis , dipst ick Leuko-Status Negati ve Not Available [facility] [address], [place], [address], 02/27/2023 15:07:16 10/02/19 23 09/27/2022 bladd er scan (PROC ) No observ ation record ed. Not Available 2022 22:09:27 03/01/20 23 02/27/2023 bladd er scan (PROC ) No observ ation record ed. BARCODE Not Available 2022 15:39:28 Result Notes None recorded. Procedures Surgical History Date Name Laterality Status Provider Name and Address Organization Details Recorded Time 3 Bladder Scan completed Pilar Smith [facility] 08/22/2023 10:45:31 3 UroCuff completed Erma Alves [facility] 08/08/2023 16:46:48 3 Bladder Scan completed Erma Alves [facility] 08/08/2023 16:22:41 3 Bladder Scan completed Romie Santos [facility] 02/27/2023 15:07:12 3 Bladder Scan completed Venkatesh Ontiveros MD [address] [place] [address], [address], [facility] 09/27/2022 12:46:00 0 colonoscopy completed Pilar Smith [facility] 08/22/2023 10:42:53 Imaging Results Imaging Date Name [...] Updated DateTime 09/27/2022 168.91 cm 24.6 kg/m2 93789.82 g Miriam Rae [facility] 09/27/2022 12:18:06 Date Recorded Body height Body mass index (BMI) Body weight Provider Name and Address Organization Details Last Updated DateTime 02/27/2023 168.91 cm 24.6 kg/m2 04746.82 g Romie Santos [facility] 02/27/2023 15:03:45 Date Recorded Body height Body mass index (BMI) Body weight Provider Name and Address Organization Details Last Updated DateTime 08/22/2023 168.91 cm 26.2 kg/m2 79092.74 g Pilar Smith [facility] 08/22/2023 10:42:08 Social History Question Answer Notes LastModified by Organizat ion Details LastModified Time Tobacco Smoking Status [facility] 09/27/2022 12:24:21 What Is Your Level Of Alcohol Consumption? None Information not available 02/27/2023 What Is Your Level Of Caffeine Consumption? Moderate Information not available 02/27/2023 Are You Currently Employed? No Information not available 02/27/2023 When Did You Quit Smoking? 1-5yearssince lastcigarette [email or web address] Information not available 08/22/2023 Recreational Drug Use No Information not available 02/27/2023 What Was The Date Of Your Most Recent Tobacco Screening? 08/22/2023 [email or web address] Information not available 08/22/2023 What Is Your [...] GERD/Acid Reflux Y Sexually Transmitted Infection N Cancer N High Cholesterol Y Diabetes N Bleeding Disorder N Heart Disease N Immunizations Vaccine Type Date Status Provider Name and Address Organization Details Recorded Time COVID-19, mRNA, LNP-S, PF, 50 mcg/0.5 mL 06/12/2023 completed Pilar marcelo, [facility] 08/22/2023 10:42:13 Influenza, split virus, quadrivalent, PF 06/12/2023 [facility]/22[facility]2023 10:42:13 zoster recombinant 03/26[facility]2022 [facility] 17:11:29 zoster recombinant 08/21/2022 [facility] 17:11:29 COVID-19, mRNA, LNP-S, PF, 100 mcg/0.5mL dose or 50 mcg/0.25mL dose 12/21/2020 [facility]23 17:11:29 COVID-19, mRNA, LNP-S, PF, 100 mcg/0.5mL dose or 50 mcg/0.25mL dose 01/17/2021 [facility] 17:11:29 COVID-19, mRNA, LNP-S, PF, 100 mcg/0.5mL dose or 50 mcg/0.25mL dose 03/26/2022 [facility] 17:11:29 COVID-19, mRNA, LNP-S, PF, 100 mcg/0.5mL dose or 50 mcg/0.25mL dose 08/17/2021 [facility]23 17:11:29 COVID-19, mRNA, LNP-S, bivalent, PF, 50 mcg/0.5 mL or 25mcg/0.25 mL dose 07/11/2022 completed Jenny marcelo [facility] 07/03/2023 17:11:29 Tdap 07/11/2019 completed Jenny marcelo [facility] 07/03/2023 17:11:29 Influenza, split virus, trivalent, preservative 06/14/2008 completed Jenny marcelo [facility] 07/03/2023 17:11:29 Past Encounters Encounter ID Performer Location Encounter Start Date Encounter Closed Date Diagnosis/Indication Diagnosis SNOMED-CT Code Diagnosis ICD10 Code [id number] Venkatesh Ontiveros MD [facility] [address] [place] [address] 09/27/2022 11:56:38 10/01/2022 14:14:58 Urethral stricture 04495905 N35.919 Recurrent urinary tract infection 565972660 N39.0 [id number] Venkatesh Ontiveros MD [facility] [address] [place] [address] 02/27/2023 14:11:30 03/07/2023 08:28:19 Urethral stricture 62695901 N35.919 Recurrent urinary tract infection 619281016 N39.0 [id number] Erma Alves [facility] [address] [place] [id number] 08/08/2023 10:50:58 08/16/2023 11:25:54 Urethral stricture 68124137 N35.919 [id number] Venkatesh Ontiveros MD [facility] [address] [place] [address] 08/22/2023 10:36:02 09/04/2023 10:08:51 Urethral stricture 45716466 N35.919 Recurrent urinary tract infection 864632682 N39.0 Health Concerns Section Related Observation LastModified by Organization Detai ls LastModified Time None Recorded Concern Status LastModified by Organization Details LastModified Time None Recorded Advance Directives Directive None Recorded Payers Encounter Date Sequence Insurance Name Policy Number Policy Bruno Covered Member ID Bruno Member ID Guarantor Name 09/27/2022 1 [place] [facility] Jerry Ballesteros [id number] 6 Jerry Ballesteros 02/27/2023 1 [place] [facility] Jerry Ballesteros [id number] 6 Jerry Ballesteros 08/08/2023 1 [place] [facility] Jerry Ballesteros [id number] 6 Jerry Ballesteros 08/22/2023 1 [place] [facility] Jerry Ballesteros [id number] 6 Jerry Ballesteros Notes Date Note Type Note Provider Name and Address Organization Details Recorded Time 09/27/2022 text/html HPI Notes: Mr. Ballesteros is a very pleasant 67-year-old male with a history of imperforate anus, solitary kidney, and history of urethral stricture disease requiring multiple dilations. Patient states that his last dilation was about [address] Prabhakar. Was seeing a Asbestos Abatement Technician while living in [place] but it has been quite some time since he has seen a Urologist. No established nephrology care here in [place]. Current urination consists of: urinary frequency with [...] any more than usual. Venkatesh Ontiveros MD [address] [place] [address],[address], [place], [address], [facility] 09/27/2022 12:46:39 02/27/2023 text/html HPI Notes: Mr. Ballesteros is a very pleasant 67-year-old male with a history of imperforate anus, solitary kidney, and history of urethral stricture disease requiring multiple dilations. Patient states that his last dilation was about [address] Prabhakar. Was seeing a Asbestos Abatement Technician while living in [place] but it has been quite some time since he has seen a Urologist. No established nephrology care here in [place]. Current urination consists of: urinary frequency with [...] since started cranberry supplement. Venkatesh Ontiveros MD [address] [place] [address],[address], [place], [address], [facility] 02/27/2023 22:10:59 08/22/2023 text/html HPI Notes: Mr. Ballesteros is a very pleasant 67-year-old male with a history of imperforate anus, solitary kidney, and history of urethral stricture disease requiring multiple dilations. Patient states that his last dilation was about [address] Prabhakar. Was seeing a Asbestos Abatement Technician while living in [place] but it has been quite some time since he has seen a Urologist. No established nephrology care here in [place]. Current urination consists of: urinary frequency with [...] no recent UTIs. Venkatesh Ontiveros MD [address], [place], [address], [facility] 08/22/2023 13:34:58
[2024-06-06 19:56] VITALS: BP 156/88; PULSE 66; RESP 16
== END 2024-06-06 19:59 | disposition home or self-care (01) ==
LOC: ED 19:36
PROVIDERS: Emergency Provider Emergency Medicine; PCP Family Medicine
DX: R42 Dizziness and giddiness (principal)
CPT/HCPCS: 99283

== ENCOUNTER 2024-08-21 14:45 | Emergency (ER) | payer MEDICARE, SELFPAY ==
--- OUTSIDE RECORDS SUMMARY | 2024-08-21 14:48 | XMS_ITS | Data Portability ---
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, [place], [address], 09/27/2022 12:14:01 urinalysi s, dipstick 2022 023 [email or web address] [facility], [address], [place], [address], 02/27/2023 15:08:08 Referral None recorded. Procedures None recorded. Surgeries None recorded. Imaging None recorded. Medication Orders None recorded. Patient TargetsNo targets recorded. Patient InstructionsNo instructions recorded. Reason for Referral None Reported. Results Created Date Observation Date Name Description Value Unit Range Abnormal Flag Note LastModifiedBy Organization Detail LastModifiedTime 09/27/1909/27/2022 urina lysis , dipst ick Sp [place]-Stat us 1.005 Not Available [facility] [address], [place], [address], 09/27/2022 12:12:58 09/27/19 23 09/27/2022 urina lysis , dipst ick pH-Status 6.0 Not Available [facility] [address], [place], [address], 09/27/2022 12:12:58 09/27/19 23 09/27/2022 urina lysis , dipst ick Nitrates-Sta tus negati ve Not Available [facility] [address], [place], [address], 09/27/2022 12:12:58 09/27/19 23 09/27/2022 urina lysis , dipst ick Blood-Status Trace Not Available [facility] [address], [place], [address], 09/27/2022 12:12:58 09/27/19 23 09/27/2022 urina lysis , dipst ick Leuko-Status Negati ve Not Available [facility] [address], [place], [address], 09/27/2022 12:12:58 02/28/20 23 02/27/2023 urina lysis , dipst ick Color-Status Yellow Not Available [facility] [address], [place], [address], 02/27/2023 15:07:16 02/28/20 23 02/27/2023 urina lysis , dipst ick Clarity-Stat us Clear Not Available [facility] [address], [place], [address], 02/27/2023 15:07:16 02/28/20 23 02/27/2023 urina lysis , dipst ick Glucose-Stat us Negati ve Not Available [facility] [address], [place], [address], 02/27/2023 15:07:16 02/28/20 23 02/27/2023 urina lysis , dipst ick Nitrates-Sta tus negati ve Not Available [facility] [address], [place], [address], 02/27/2023 15:07:16 02/28/20 23 02/27/2023 urina lysis , dipst ick Blood-Status Negati ve Not Available [facility] [address], [place], [address], 02/27/2023 15:07:16 02/28/20 23 02/27/2023 urina lysis , dipst ick Leuko-Status Negati ve Not Available [facility] [address], [place], [address], 02/27/2023 15:07:16 10/02/19 23 09/27/2022 bladd er scan (PROC ) No observ ation record ed. Not Available 2022 22:09:27 03/01/20 23 02/27/2023 bladd er scan (PROC ) No observ ation record ed. BARCODE Not Available 2022 15:39:28 Result Notes None recorded. Procedures Surgical History Date Name Laterality Status Provider Name and Address Organization Details Recorded Time 3 Bladder Scan completed Pilar Smith [facility] 08/22/2023 10:45:31 3 UroCuff completed Erma Alves [facility] 08/08/2023 16:46:48 3 Bladder Scan completed Erma Alves [facility] 08/08/2023 16:22:41 3 Bladder Scan completed Romie Santos [facility] 02/27/2023 15:07:12 3 Bladder Scan completed Venkatesh Ontiveros MD [address] [place] [address],[address], [address] 09/27/2022 12:46:00 0 colonoscopy completed Pilar Smith [facility] 08/22/2023 10:42:53 Imaging Results Imaging [...] Updated DateTime 09/27/2022 168.91 cm 24.6 kg/m2 83187.82 g Miriam Rae [facility] 09/27/2022 12:18:06 Date Recorded Body height Body mass index (BMI) Body weight Provider Name and Address Organization Details Last Updated DateTime 02/27/2023 168.91 cm 24.6 kg/m2 48704.82 g Romie Santos [facility] 02/27/2023 15:03:45 Date Recorded Body height Body mass index (BMI) Body weight Provider Name and Address Organization Details Last Updated DateTime 08/22/2023 168.91 cm 26.2 kg/m2 41936.74 g Pilar Smith [facility] 08/22/2023 10:42:08 Social History Question Answer Notes LastModified by Organizat ion Details LastModified Time Tobacco Smoking Status [facility]/27/2022 12:24:21 What Is Your Level Of Alcohol Consumption? None Information not available 02/27/2023 What Is Your Level Of Caffeine Consumption? Moderate Information not available 02/27/2023 Are You Currently Employed? No Information not available 02/27/2023 When Did You Quit Smoking? 1-5yearssince lastcired [email or web address] Information not available 08/22/2023 Recreational Drug Use No Information not available 02/27/2023 What Was The Date Of Your Most Recent Tobacco Screening? 08/22/2023 [email or web address] Information not available 08/22/2023 What Is Your [...] Disease N Immunizations Vaccine Type Date Status Note Provider Nam e and Address Organization Details Recorded Time COVID-19, mRNA, LNP-S, PF, 50 mcg/0.5 mL 3 completed Pilar marcelo [facility] 08/22/2023 10:42:13 Influenza, split virus, quadrivalent, PF 3 completed Pilar marcelo [facility] 08/22/2023 10:42:13 zoster recombinant 2 completed [facility] 07/[facility]/2023 17:11:29 zoster recombinant 2 completed Jenny marcelo [facility] 07/03/2023 17:11:29 COVID-19, mRNA, LNP-S, PF, 100 mcg/0.5mL dose or 50 mcg/0.25mL dose 1 completed [facility] 07/03/2023 17:11:29 COVID-19, mRNA, LNP-S, PF, 100 mcg/0.5mL dose or 50 mcg/0.25mL dose 1 completed Jenny marcelo [facility] 07/03/2023 17:11:29 COVID-19, mRNA, LNP-S, PF, 100 mcg/0.5mL dose or 50 mcg/0.25mL dose 2 completed Jenny marcelo [facility] 07/03/2023 17:11:29 COVID-19, mRNA, LNP-S, PF, 100 mcg/0.5mL dose or 50 mcg/0.25mL dose 1 completed Jenny marcelo [facility] 07/03/2023 17:11:29 COVID-19, mRNA, LNP-S, bivalent, PF, 50 mcg/0.5 mL or 25mcg/0.25 mL dose 2 completed Jenny marcelo [facility] 07/03/2023 17:11:29 Tdap 9 completed Jenny marcelo [facility] 07/03/2023 17:11:29 Influenza, split virus, trivalent, preservative 8 completed Jenny marcelo [facility] 07/03/2023 17:11:29 Past Encounters Encounter ID Performer Location Encounter Start Date Encounter Closed Date Diagnosis/Indication Diagnosis SNOMED-CT Code Diagnosis ICD10 Code [id number] Venkatesh Ontiveros MD [facility] [address] [place] [address] 09/27/2022 11:56:38 10/01/2022 14:14:58 Urethral stricture 43488298 N35.919 Recurrent urinary tract infection 709887053 N39.0 [id number] MD CHANDA [facility] [address] [place] [address] 02/27/2023 14:11:30 03/07/2023 08:28:19 Urethral stricture 23968598 N35.919 Recurrent urinary tract infection 643012668 N39.0 [id number] Erma Alves [facility] [address] [place] [address] 08/08/2023 10:50:58 08/16/2023 11:25:54 Urethral stricture 89021703 N35.919 [id number] MD CHANDA [facility] [address] [place] [address] 08/22/2023 10:36:02 09/04/2023 10:08:51 Urethral stricture 20967935 N35.919 Recurrent urinary tract infection 741052861 N39.0 Health Concerns Section Related Observation LastModified by Organization Detai ls LastModified Time None Recorded Concern Status LastModified by Organization Details LastModified Time None Recorded Advance Directives Directive None Recorded Payers Encounter Date Sequence Insurance Name Policy Number Policy Bruno Covered Member ID Bruno Member ID Guarantor Name 09/27/2022 1 [place]: [facility] Jerry Ballesteros [id number] Jerry Ballesteros 02/27/2023 1 [place] [facility] Jerry Ballesteros [id number] Jerry Ballesteros 08/08/2023 1 [place] [facility] Jerry Ballesteros [id number] 6 Jerry Ballesteros 08/22/2023 1 [place]ARE [place]: [facility] Jerry Ballesteros [id number] 6 Jerry Ballesteros Notes Date Note Type Note Provider Name and Address Organization Details Recorded Time 09/27/2022 text/html Mr. Ballesteros is a very pleasant 67-year-old male with a history of imperforate anus, solitary kidney, and history of urethral stricture disease requiring multiple dilations. Patient states that his last dilation was about [address] Prabhakar. Was seeing a Scalping Machine Operator while living in [place] but it has been quite some time since he has seen a Urologist. No established nephrology care here in [place]. Current urination consists of: urinary frequency with some straining to void. Does experience any suprapubic pain, dysuria, or hematuria. Does feel as though his stream has weakened over the last few years but does feel as though he voids to completion. No issues with urinary tract infections. Not interested in any invasive intervention but would like to follow his renal function closely. 01/03/22Here for follow up chronic congenital urethral stricture. Now s/p dilation. Doing well. Intermittent hematuria but improving. 09/27/2022:Here for follow up chronic congenital urethral stricture. Recently diagnosed with bahena-sensitive E coli infection. Overall reports that he feels like he is doing well. No recurrence of pain, does not feel like he needs to strain any more than usual. Venkatesh Ontiveros MD [address] [place] [address],[address], [place], [address], [facility] 09/27/2022 12:46:39 02/27/2023 text/html Mr. Ballesteros is a very pleasant 67-year-old male with a history of imperforate anus, solitary kidney, and history of urethral stricture disease requiring multiple dilations. Patient states that his last dilation was about [address] Prabhakar. Was seeing a Scalping Machine Operator while living in [place] but it has been quite some time since he has seen a Urologist. No established nephrology care here in [place]. Current urination consists of: urinary frequency with some straining to void. Does experience any suprapubic pain, dysuria, or hematuria. Does feel as though his stream has weakened over the last few years but does feel as though he voids to completion. No issues with urinary tract infections. Not interested in any invasive intervention but would like to follow his renal function closely. 01/03/22Here for follow up chronic congenital urethral stricture. Now s/p dilation. Doing well. Intermittent hematuria but improving. 09/27/2022:Here for follow up chronic congenital urethral stricture. Recently diagnosed with bahena-sensitive E coli infection. Overall reports that he feels like he is doing well. No recurrence of pain, does not feel like he needs to strain any more than usual. 02/27/2023:Here for follow up history of imperforate anus, solitary kidney, history of urethral stricture disease, and recurrent UTIs. Today reports he recently had another UTI which required 2 courses of antibiotics to clear. He has since started cranberry supplement. Venkatesh Ontiveros MD [address] [place] [address],[address], [address], [facility] [place] [facility] 02/27/2023 22:10:59 08/22/2023 text/html Mr. Ballesteros is a very pleasant 67-year-old male with a history of imperforate anus, solitary kidney, and history of urethral stricture disease requiring multiple dilations. Patient states that his last dilation was about [address] Prabhakar. Was seeing a Scalping Machine Operator while living in [place] but it has been quite some time since he has seen a Urologist. No established nephrology care here in [place]. Current urination consists of: urinary frequency with some straining to void. Does experience any suprapubic pain, dysuria, or hematuria. Does feel as though his stream has weakened over the last few years but does feel as though he voids to completion. No issues with urinary tract infections. Not interested in any invasive intervention but would like to follow his renal function closely. 01/03/22Here for follow up chronic congenital urethral stricture. Now s/p dilation. Doing well. Intermittent hematuria but improving. 09/27/2022:Here for follow up chronic congenital urethral stricture. Recently diagnosed with bahena-sensitive E coli infection. Overall reports that he feels like he is doing well. No recurrence of pain, does not feel like he needs to strain any more than usual. 02/27/2023:Here for follow up history of imperforate anus, solitary kidney, history of urethral stricture disease, and recurrent UTIs. Today reports he recently had another UTI which required 2 courses of antibiotics to clear. He has since started cranberry supplement. 08/22/23:Here for follow up history of imperforate anus, solitary kidney, history of urethral stricture disease, and recurrent UTIs. He completed a urocuff for my review which shows valsalva voiding but decent flow. Overall fells like he is doing quite well, no recent UTIs. Venkatesh Ontiveros MD [address] [facility],[address], [place], [address], [place] [facility] 08/22/2023 13:34:58
[2024-08-21 14:57] VITALS: BP 124/86; PULSE 62; RESP 18; TEMP 36.5; O2SAT 99; BMI 25.1
--- NOTE | 2024-08-21 15:05 | ED.GENADULT ---
HPI - General Adult General Chief complaint: Sore Throat Stated complaint: sore throat, some congestion Time Seen by Provider: 08/21/24 14:47 History of Present Illness HPI narrative: comes to ed with concerns of a sore throat. this started ~4 days ago and was mainly on his right side. has some discomfort with swallowing. is concerned as he has only one kidney. is worried about covid or strep. is not eating and drinking much. is sleeping ok. does have an occasional cough. 69-year-old man presenting to the emergency department with concern of sore throat for last 4 days. More right-sided. He indicates concerns related to his age and having a solitary kidney. Minimal cough. Not short of breath. No fever. No rash noted. Concern of possible COVID or strep infection. Takes a daily low-dose aspirin. Questions about [id number] medications. Related Data Home Medications ?Medication ?Instructions ?Recorded ?Confirmed clonazepam 0.5 mg tablet 0.5 mg PO DAILY 12/02/22 04/06/24 mirtazapine 7.5 mg tablet 7.5 mg PO QPM 12/02/22 04/06/24 pravastatin 40 mg tablet 40 mg PO DAILY 12/02/22 04/06/24 amlodipine 5 mg tablet 5 mg PO DAILY 03/11/23 04/06/24 aspirin 81 mg tablet,delayed 81 mg PO DAILY 09/06/23 04/06/24 release (Adult Aspirin Regimen) Previous Rx's ?Medication ?Instructions ?Recorded pantoprazole 20 mg tablet,delayed 20 mg PO DAILY #20 tabs 10/01/23 release (Protonix) cephalexin 500 mg capsule 500 mg PO TID #21 caps 03/30/24 Allergies Allergy/AdvReac Type Severity Reaction Status Date / Time No Known Drug Allergies Allergy Verified 08/21/24 14:57 Review of Systems Status of ROS: Reports: 6 or more systems reviewed and unremarkable except as noted in History and below PFSH PFS Social History Smoking Status: Never smoker Do you use any of these nicotine containing products: None How often do you have a drink containing alcohol: never How often do you have six or more drinks on one occasion: Never AUDIT-C Alcohol total score: 0 Non-prescribed substance use: denies use service: No Exam Narrative: Exam Narrative: Pleasant. NAD. Sounds just a little congested in the nasopharynx. No facial swelling erythema or tenderness. TMs are clear Lungs are clear. Heart in regular rate and rhythm. Neck is supple without lymphadenopathy. Oropharynx with very trace erythema; some far posterior irritation may be consistent more with postnasal drip. No notable asymmetry. Const: Vital Signs, click to edit/add: Vital Signs - 24 hr 08/21/24 14:57 Temperature 97.7 F Pulse Rate [Pulse Oximeter] 62 Respiratory Rate 18 Blood Pressure [Ri ght Upper Arm] 124/86 Pulse Oximetry 99 Oxygen Delivery Me thod Room Air Documenting provider has reviewed patient's vital signs: yes Course Vital Signs Vital signs: Initial Vital Signs Temperature 97.7 F 08/21/24 14:57 Temperature Source Temporal Artery Scan 08/21/24 14:57 Pulse Rate 62 08/21/24 14:57 Respiratory Rate 18 08/21/24 14:57 Blood Pressure 124/86 08/21/24 14:57 Blood Pressure Mean 98 08/21/24 14:57 Blood Pressure Position Semi-Fowlers 08/21/24 14:57 Pulse Oximetry 99 08/21/24 14:57 Oxygen Delivery Method Room Air 08/21/24 14:57 Vital Signs Temperature 97.7 F 08/21/24 14:57 Pulse Rate 62 08/21/24 14:57 Respiratory Rate 18 08/21/24 14:57 Blood Pressure 124/86 08/21/24 14:57 Pulse Oximetry 99 08/21/24 14:57 Oxygen Delivery Method Room Air 08/21/24 14:57 Temperature 97.7 F 08/21/24 16:42 Pulse Rate 62 08/21/24 16:42 Respiratory Rate 18 08/21/24 16:42 Blood Pressure 124/86 08/21/24 16:42 Pulse Oximetry 99 08/21/24 14:57 Oxygen Delivery Method Room Air 08/21/24 14:57 Medical Decision Making MDM Narrative Medical decision making narrative: In certainly screen for COVID and strep. Otherwise appears to have a head cold. If strep positive would monitor more closely for any secondary renal problems I suppose. I do not think degree of discomfort described and certainly the absence of any swelling would warrant need of prednisone. Swabs are negative. No treatment needed during time in the emergency department. See patient discharge plan for further discussion Stay well-hydrated. You might sleep under the mist of a cool mist humidifier. Menthol vapors might be helpful. Can take up to 600 mg of ibuprofen or up to 1000 mg of acetaminophen dosed maybe 3 times a day. Pseudoephedrine might be helpful to decongest. You can certainly take the Robitussin you described as well in combination with any of the above. Medical Records Medical records reviewed: Yes I reviewed the patient's medical records Lab Data Lab results reviewed: Yes I reviewed the patient's lab results Labs: Lab Results 08/21/24 08/21/24 Range/Units 15:12 15:35 SARS-CoV-2 (PCR) Negative SARS-CoV-2 (Negative) Influenza Type A (PCR) Negative PCR FLU A (Negative) Influenza Type B (PCR) Negative PCR FLU B (Negative) RSV (PCR) Negative PCR RSV (Negative) Group A Strep DNA NOT DETECTED (Not Detectd) Discharge Plan Discharge Clinical Impression: URI (upper respiratory infection), Head cold, Pharyngitis Patient Disposition: Home, Self-Care Condition: Stable Additional Instructions: Stay well-hydrated. You might sleep under the mist of a cool mist humidifier. Menthol vapors might be helpful. Can take up to 600 mg of ibuprofen or up to 1000 mg of acetaminophen dosed maybe 3 times a day. Pseudoephedrine might be helpful to decongest. You can certainly take the Robitussin you described as well in combination with any of the above. Prescriptions: No Action pravastatin 40 mg tablet 40 mg PO DAILY clonazepam 0.5 mg tablet 0.5 mg PO DAILY mirtazapine 7.5 mg tablet 7.5 mg PO QPM aspirin [Adult Aspirin Regimen] 81 mg tablet,delayed release (DR/EC) 81 mg PO DAILY pantoprazole [Protonix] 20 mg tablet,delayed release (DR/EC) 20 mg PO DAILY Qty: 20 2RF amlodipine 5 mg tablet 5 mg PO DAILY Patient Comments: TAKE 1 TABLET (5 MG) BY MOUTH ONCE DAILY. cephalexin 500 mg capsule 500 mg PO TID Qty: 21 0RF Follow Up/Referrals: Natalie Juárez DO [Primary Care Provider] - Stand Alone Forms: [employer] Info Instructions
[2024-08-21 16:03] LABS: PCR FLU A Negative PCR FLU A (Negative); PCR FLU B Negative PCR FLU B (Negative); PCR RSV Negative PCR RSV (Negative); SARS PCR* Negative SARS-CoV-2 (Negative)
[2024-08-21 16:08] LABS: Strep A DNA Probe* NOT DETECTED (Not Detectd)
[2024-08-21 16:42] VITALS: BP 124/86; PULSE 62; RESP 18; TEMP 36.5
== END 2024-08-21 16:43 | disposition home or self-care (01) ==
PROVIDERS: Emergency Provider Family Medicine; PCP Family Medicine
DX: J06.9 Acute upper respiratory infection, unspecified (principal); J02.9 Acute pharyngitis, unspecified
CPT/HCPCS: 87631; 87651; 99282; 99283

== ENCOUNTER 2024-09-07 10:50 | Emergency (ER) | payer MEDICARE, SELFPAY ==
--- OUTSIDE RECORDS SUMMARY | 2024-09-07 10:53 | XMS_ITS | Data Portability ---
Author Organization [place] [facility] Address [address] [place] [address] Care Team Providers Care Pest Control Pilot Name Role Phone MARINE HAAS Primary Care [...] available Lab urinalysi s, dipstick 2022 023 [email or web address] [facility], [address], [place], [address], 09/27/2022 12:14:01 urinalysi s, dipstick 2022 023 [email or web address] [facility], [address], [place], [address], 02/27/2023 15:08:08 Referral None recorded. Procedures None recorded. Surgeries None recorded. Imaging None recorded. Medication Orders None recorded. Patient TargetsNo targets recorded. Patient InstructionsNo instructions recorded. Reason for Referral None Reported. Results Created Date Observation Date Name Description Value Unit Range Abnormal Flag Note LastModifiedBy Organization Detail LastModifiedTime 09/27/1909/27/2022 urina lysis , dipst ick Sp Beccaria-Stat us 1.005 Not Available [facility] [address], [place], [address], 09/27/2022 12:12:58 09/27/19 23 09/27/2022 urina lysis , dipst ick pH-Status 6.0 Not Available [facility] [address], [place], [address], 09/27/2022 12:12:58 09/27/19 23 09/27/2022 urina lysis , dipst ick Nitrates-Sta tus negati ve Not Available [facility] [address], [place], [address], 09/27/2022 12:12:58 09/27/19 23 09/27/2022 urina lysis , dipst ick Blood-Status Trace Not Available [facility] [address], [place], [address], 09/27/2022 12:12:58 09/27/19 23 09/27/2022 urina lysis , dipst ick Leuko-Status Negati ve Not Available [facility] [address], [place], [address], 09/27/2022 12:12:58 02/28/20 23 02/27/2023 urina lysis , dipst ick Color-Status Yellow Not Available [facility] [address], [place], [address], 02/27/2023 15:07:16 02/28/20 23 02/27/2023 urina lysis , dipst ick Clarity-Stat us Clear Not Available [facility] [address], [place], [address], 02/27/2023 15:07:16 02/28/20 23 02/27/2023 urina lysis , dipst ick Glucose-Stat us Negati ve Not Available [facility] [address], [place], [address], 02/27/2023 15:07:16 02/28/20 23 02/27/2023 urina lysis , dipst ick Nitrates-Sta tus negati ve Not Available [facility] [address], [place], [address], 02/27/2023 15:07:16 02/28/20 23 02/27/2023 urina lysis , dipst ick Blood-Status Negati ve Not Available [facility] [address], [place], [address], 02/27/2023 15:07:16 02/28/20 23 02/27/2023 urina lysis , dipst ick Leuko-Status Negati ve Not Available [facility] [address], [place], [address], 02/27/2023 15:07:16 10/02/19 23 09/27/2022 bladd er scan (PROC ) No observ ation record ed. Not Available 2022 22:09:27 03/01/20 23 02/27/2023 bladd er scan (PROC ) No observ ation record ed. BARCODE Not Available 2022 15:39:28 Result Notes None recorded. Procedures Surgical History Date Name Laterality Status Provider Name and Address Organization Details Recorded Time 3 Bladder Scan completed Pilar Smith [facility] 08/22/2023 10:45:31 3 UroCuff completed Erma Alves [facility] 08/08/2023 16:46:48 3 Bladder Scan completed Erma Alves [facility] 08/08/2023 16:22:41 3 Bladder Scan completed Romie Santos [facility] 02/27/2023 15:07:12 3 Bladder Scan completed Venkatesh Ontiveros MD [address] [place] [address],[address], [place], [address] 09/27/2022 12:46:00 0 colonoscopy completed Pilar Smith [facility] 08/22/2023 10:42:53 Imaging Results [...] Updated DateTime 09/27/2022 168.91 cm 24.6 kg/m2 40798.82 g Miriam Rae [facility] 09/27/2022 12:18:06 Date Recorded Body height Body mass index (BMI) Body weight Provider Name and Address Organization Details Last Updated DateTime 02/27/2023 168.91 cm 24.6 kg/m2 17823.82 g Romie Santos [facility] 02/27/2023 15:03:45 Date Recorded Body height Body mass index (BMI) Body weight Provider Name and Address Organization Details Last Updated DateTime 08/22/2023 168.91 cm 26.2 kg/m2 60739.74 g Pilar Smith [facility] 08/22/2023 10:42:08 Social History Question Answer Notes LastModified by Organizat ion Details LastModified Time Tobacco Smoking Status [facility] 12:24:21 What Is Your Level Of Alcohol Consumption? None Information not available 02/27/2023 What Is Your Level Of Caffeine Consumption? Moderate Information not available 02/27/2023 Are You Currently Employed? No Information not available 02/27/2023 When Did You Quit Smoking? 1-5yearssince lastcired [email or web address] Information not available 08/22/2023 Recreational Drug Use No Information not available 02/27/2023 What Was The Date Of Your Most Recent Tobacco Screening? 08/22/2023 [email or web address] Information not available 08/22/2023 What Is Your [...] 50 mcg/0.5 mL 3 completed Pilar marcelo [facility] 08/22/2023 10:42:13 Influenza, split virus, quadrivalent, PF 3 completed Pilar marcelo [facility] 08/22/2023 10:42:13 zoster recombinant 2 [facility]23 17:11:29 zoster recombinant 2 completed Jenny marcelo [facility] 07/03/2023 17:11:29 COVID-19, mRNA, LNP-S, PF, 100 mcg/0.5mL dose or 50 mcg/0.25mL dose 1 completed Jenny marcelo [facility] 07/03/2023 17:11:29 COVID-19, mRNA, LNP-S, PF, 100 mcg/0.5mL dose or 50 mcg/0.25mL dose 1 completed Jenny marcelo [facility] 07/03/2023 17:11:29 COVID-19, mRNA, LNP-S, PF, 100 mcg/0.5mL dose or 50 mcg/0.25mL dose 2 completed Jenny marcelo [facility] 07/03/2023 17:11:29 COVID-19, mRNA, LNP-S, PF, 100 mcg/0.5mL dose or 50 mcg/0.25mL dose 1 completed Jenny marcelo [facility] 07/03/2023 17:11:29 COVID-19, mRNA, LNP-S, bivalent, PF, 50 mcg/0.5 mL or 25mcg/0.25 mL dose 2 completed Jenny marcelo [facility] 07/03/2023 17:11:29 Tdap 9 completed Jenny marcelo, [facility] 07/03/2023 17:11:29 Influenza, split virus, trivalent, preservative 8 completed Jenny marcelo [facility] 07/03/2023 17:11:29 Past Encounters Encounter ID Performer Location Encounter Start Date Encounter Closed Date Diagnosis/Indication Diagnosis SNOMED-CT Code Diagnosis ICD10 Code Diagnosis Note [id number] Venkatesh Ontiveros MD [facility] [address] [place] [address] 09/27/2022 11:56:38 10/01/2022 14:14:58 Urethral stricture 20276205 N35.919 - Will set up for Q6 month UroCuff- PVR today 134 mL- If evidence of recurrence then would recommend Optilume dilation Recurrent urinary tract infection N39.0 - Start TheraCran given recurrent E coli UTIs [id number] Venkatesh Ontiveros MD [facility] [address] [place] [address] 02/27/2023 14:11:30 03/07/2023 08:28:19 Urethral stricture 35870546 N35.919 - Will set up for UroCuff- PVR today 21 mL- If evidence of recurrence then would recommend Optilume dilation Recurrent urinary tract infection N39.0 - Start TheraCran given recurrent E coli UTIs- Could also add d-Mannose supplement [id number] Erma Alves [facility] [address] [place] [address] 08/08/2023 10:50:58 08/16/2023 11:25:54 Urethral stricture 92069565 N35.919 [id number] Venkatesh Ontiveros MD [facility] [address] [place] [address] 08/22/2023 10:36:02 09/04/2023 10:08:51 Urethral stricture 93299584 N35.919 - UroCuff reviewed- IPSS: 5 (2)- PVR today 35 mL- If evidence of recurrence then would recommend Optilume dilation- Follow up in 1 year with UroCuff Recurrent urinary tract infection 352157787 N39.0 - Continue TheraCran given recurrent E coli UTIs- Could also add d-Mannose supplement Health Concerns Section Related Observation LastModified by Organization Detai ls LastModified Time None Recorded Concern Status LastModified by Organization Details LastModified Time None Recorded Advance Directives Directive None Recorded Payers Encounter Date Sequence Insurance Name Policy Number Policy Bruno Covered Member ID Bruno Member ID Guarantor Name 09/27/2022 1 [place] [facility] Jerry Ballesteros [id number] Jerry Greenz 02/27/2023 1 [place] [facility] Jerry Greenz [id number] Jerry Cabreraoutz 08/08/2023 1 [place] [facility] Jerry Ballesteros [id number] 6 Jerry Greenz 08/22/2023 1 [facility] Jerry Ballesteros [id number] 6 Jerry Greenz Notes Date Note Type Note Provider Name and Address Organization Details Recorded Time 09/27/2022 text/html Mr. Ballesteros is a very pleasant 67-year-old male with a history of imperforate anus, solitary kidney, and history of urethral stricture disease requiring multiple dilations. Patient states that his last dilation was about [address] Prabhakar. Was seeing a Drug Coordinator while living in [place] but it has been quite some time since he has seen a Urologist. No established nephrology care here in [place]. Current urination consists of: urinary frequency with [...] any more than usual. Venkatesh Ontiveros MD [address] [place] [address],[address], [place], [address], [facility] 09/27/2022 12:46:39 02/27/2023 text/html Mr. Ballesteros is a very pleasant 67-year-old male with a history of imperforate anus, solitary kidney, and history of urethral stricture disease requiring multiple dilations. Patient states that his last dilation was about [address] Prabhakar. Was seeing a Drug Coordinator while living in [place] but it has been quite some time since he has seen a Urologist. No established nephrology care here in [place]. Current urination consists of: urinary frequency with [...] since started cranberry supplement. Venkatesh Ontiveros MD [address] [place] [address],[address], [place], [address], [facility] 02/27/2023 22:10:59 08/22/2023 text/html Mr. Ballesteros is a very pleasant 67-year-old male with a history of imperforate anus, solitary kidney, and history of urethral stricture disease requiring multiple dilations. Patient states that his last dilation was about [address] Prabhakar. Was seeing a Drug Coordinator while living in [place] but it has been quite some time since he has seen a Urologist. No established nephrology care here in [place]. Current urination consists of: urinary frequency with [...] no recent UTIs. Venkatesh Ontiveros MD [address] [facility], [place], [address], [place] [facility] [place] [facility] 08/22/2023 13:34:58
[2024-09-07 11:02] VITALS: BP 132/80; PULSE 63; RESP 18; TEMP 36.5; O2SAT 98; BMI 25.1
--- NOTE | 2024-09-07 11:37 | ED.GENADULT ---
HPI - General Adult General Chief complaint: Unspecified Complaint, Adult Stated complaint: infection - tailbone Time Seen by Provider: 09/07/24 11:02 Source: patient Mode of arrival: ambulatory Limitations: no limitations History of Present Illness HPI narrative: 69-year-old male presenting with rectal discomfort. Patient states that he has a history of surgery in the rectal area, and states that about 9 months ago it was infected and required antibiotics. He states in the last 2 days he felt some mild discomfort and is here to make sure that he does need to be treated with antibiotics. He denies any systemic symptoms such as fevers, chills, nausea or vomiting. He states that there was a small amount of blood that he noticed when he wiped yesterday. He denies seeing any pus or any other purulent drainage. He denies pain with defecation. Related Data Home Medications ?Medication ?Instructions ?Recorded ?Confirmed clonazepam 0.5 mg tablet 0.5 mg PO DAILY 12/02/22 09/07/24 mirtazapine 7.5 mg tablet 7.5 mg PO QPM 12/02/22 09/07/24 pravastatin 40 mg tablet 40 mg PO DAILY 12/02/22 09/07/24 amlodipine 5 mg tablet 5 mg PO DAILY 03/11/23 09/07/24 aspirin 81 mg tablet,delayed 81 mg PO DAILY 09/06/23 04/06/24 release (Adult Aspirin Regimen) Previous Rx's ?Medication ?Instructions ?Recorded pantoprazole 20 mg tablet,delayed 20 mg PO DAILY #20 tabs 10/01/23 release (Protonix) Allergies Allergy/AdvReac Type Severity Reaction Status Date / Time No Known Drug Allergies Allergy Verified 08/21/24 14:57 Review of Systems Status of ROS: Reports: 6 or more systems reviewed and unremarkable except as noted in History and below PFSH PFS Social History Smoking Status: Never smoker Do you use any of these nicotine containing products: None How often do you have a drink containing alcohol: never How often do you have six or more drinks on one occasion: Never AUDIT-C Alcohol total score: 0 Non-prescribed substance use: denies use service: No Exam Narrative: Exam Narrative: Well-nourished well-developed patient in no acute distress. Alert and oriented. Answers questions appropriately. Mood and affect are appropriate. Thoughts are goal oriented and rational. No tangential or magical thinking noted. Patient speaks in full sentences without needing to catch his breath. HEENT: Normocephalic atraumatic. Extraocular muscles are intact. Conjunctivae are moist without any icterus noted. Rectal: Normal external rectum. There is no swelling, erythema or tenderness noted. He does have postsurgical scarring in the gluteal cleft superior to the rectum. There is a linear scar right in the middle of the intergluteal cleft and approximately 5 mm of it, there is broken skin. There is no surrounding erythema. There is no palpable abscess or areas of fluctuance. The area is not tender. Const: Vital Signs, click to edit/add: Vital Signs - 24 hr 09/07/24 11:02 Temperature 97.7 F Pulse Rate [Pulse Oximeter] 63 Respiratory Rate 18 Blood Pressure [Ri ght Upper Arm] 132/80 Pulse Oximetry 98 Oxygen Delivery Me thod Room Air Course Vital Signs Vital signs: Initial Vital Signs Temperature 97.7 F 09/07/24 11:02 Temperature Source Temporal Artery Scan 09/07/24 11:02 Pulse Rate 63 09/07/24 11:02 Respiratory Rate 18 09/07/24 11:02 Blood Pressure 132/80 09/07/24 11:02 Blood Pressure Mean 97 09/07/24 11:02 Blood Pressure Position Supine 09/07/24 11:02 Pulse Oximetry 98 09/07/24 11:02 Oxygen Delivery Method Room Air 09/07/24 11:02 Vital Signs Temperature 97.7 F 09/07/24 11:02 Pulse Rate 63 09/07/24 11:02 Respiratory Rate 18 09/07/24 11:02 Blood Pressure 132/80 09/07/24 11:02 Pulse Oximetry 98 09/07/24 11:02 Oxygen Delivery Method Room Air 09/07/24 11:02 Temperature 97.7 F 09/07/24 11:02 Pulse Rate 63 09/07/24 11:02 Respiratory Rate 18 09/07/24 11:02 Blood Pressure 132/80 09/07/24 11:02 Pulse Oximetry 98 09/07/24 11:02 Oxygen Delivery Method Room Air 09/07/24 11:02 Medical Decision Making MDM Narrative Medical decision making narrative: 69-year-old male with a small area of skin breakdown over previous scar. No evidence of infection. At this time we discussed wound hygiene, use of antibiotic ointment and reasons for follow-up. Discharge Plan Discharge Clinical Impression: Skin breakdown Patient Disposition: Home, Self-Care Condition: Stable Additional Instructions: There is a very tiny area of skin breakdown that is causing your discomfort. At this time, it does not appear infected. Make sure to clean your bottom after you have a bowel movement with warm, soapy water and do not scrub the area. Pat dry after you wash it. I would recommend using antibiotic ointment after every bowel movement and very thin film before you go to bed at night. Prescriptions: No Action pravastatin 40 mg tablet 40 mg PO DAILY clonazepam 0.5 mg tablet 0.5 mg PO DAILY mirtazapine 7.5 mg tablet 7.5 mg PO QPM aspirin [Adult Aspirin Regimen] 81 mg tablet,delayed release (DR/EC) 81 mg PO DAILY pantoprazole [Protonix] 20 mg tablet,delayed release (DR/EC) 20 mg PO DAILY Qty: 20 2RF amlodipine 5 mg tablet 5 mg PO DAILY Patient Comments: TAKE 1 TABLET (5 MG) BY MOUTH ONCE DAILY. Follow Up/Referrals: Natalie Juárez DO [Primary Care Provider] - Stand Alone Forms: [employer] Info Instructions
--- OUTSIDE RECORDS SUMMARY | 2024-09-07 11:54 | XMS_ITS | Clinical Summary ---
Author Organization [employer] [facility] Address [place], [place] [address] Care Team Providers Care Neon Sign Mechanic Name Role Phone Natalie Juárez DO Primary Care Provider [phone] Kate Pugh DO Unavailable Billy Sanon MD Unavailable Allergies No known active allergies Medications MULTIVITAMIN TAB take 1 tablet by oral route once daily with food 0 04/15/20 07 Active ASPIRIN 81 MG TAB, DELAYED RELEASE take 1 tablet (81 mg) by oral route once daily 0 04/15/20 07 Active VITAMIN C 1,000 MG TAB 1 po qd 0 04/15/20 07 Active CALCIUM 500 MG TAB 2 po qd 0 04/15/20 07 Active cholecalciferol (Vitamin D) 1,000 unit capsule Take 1 Capsule (1,000 units) by mouth once daily. 0 06/22/20 22 Active amLODIPine (NORVASC) 5 mg tabletIndications: Essential hypertension TAKE 1 TABLET (5 MG) BY MOUTH ONCE DAILY. 90 Tablet 2 01/09/20 24 Active hydrocortisone 2.5% creamIndications:A nal irritation Apply topically to affected area(s) two times daily. 30 g 02/04/20 24 Active clonazePAM (KLONOPIN) 0.5 mg tabletIndications: Generalized anxiety disorder with panic attacks TAKE 1 TABLET (0.5 MG) BY MOUTH ONCE DAILY and second dose 0.5mg (1 tab) IF NEEDED FOR ANXIETY. TO LAST AT LEAST 30 DAYS. 45 Tablet 5 02/18/20 24 Active fluticasone (50 mcg per actuation) nasal solution (FLONASE)Indicatio ns:Metallic taste Inhale 2 Sprays to both nostrils once daily. 16 g 1 03/10/20 24 Active Additional Information Patient not taking.Reported on 08/10/2024 loperamide (IMODIUM) 2 mg capsuleIndications :Chronic diarrhea Take 2 capsules (4mg) orally with 1st loose stool, then 1 capsule (2mg) with other loose stools. Max 16 mg in 24 hrs. 270 Capsule 1 06/02/20 24 Active mirtazapine (REMERON) 7.5 mg tabletIndications: Insomnia, idiopathic Take 1 Tablet (7.5 mg) by mouth at bedtime. 90 Tablet 3 06/03/20 24 Active pravastatin (PRAVACHOL) 40 mg tabletIndications: Mixed hyperlipidemia TAKE 1 TABLET (40 MG) BY MOUTH ONCE DAILY. 90 Tablet 2 07/23/20 24 Active Active Problems Problem Noted Date Diagnosed Date Solitary kidney, acquired 08/05/2024 Recurrent UTI 08/05/2024 Moderate episode of recurrent major depressive d [...] Encounters Date Type Department Care Team Description 08/10/2024 1:40 PM TRACK BROOM OPERATOR Office Visit [facility] [address] [place] [address] Billy Sanon MD Consult (BPH without urinary obstruction /- H/O urethral stricture /Shaqra, Natalie Aliya, DO /) 08/10/2024 Travel 07/20/2024 Refill [facility] [address] [place] [address] Marquita Natalie Aliya, DO Refill Request (Pravastatin) 06/08/2024 10:10 AM CDT Office Visit [facility] [address] [place] [address] Vaughnqra Natalie Aliya, DO ER Follow up (06/06/24 - Vertigo) 06/08/2024 Travel from Last 3 Months Immunizations Name [...] drink = 0.6 oz pur e alcohol) [facility] Utilities Answer Date Recorded Do you have trouble paying f or utilities (for example, heat, electricity, water, phone)? Yes 11/11/2023 PHQ-2 Answer Date Recorded PHQ-2 TOTAL SCORE 1 02/04/2024 Social Connections Answer Date Recorded Do you often feel lonely or isolated from those around you? 0 11/11/2023 Financial Resource Strain Answer Date R ecorded Difficulty of Paying Living Expenses 3 11/11/2023 Difficulty of Paying Living Expenses Not on file 11/11/2023 Food Insecurity Answer Date Recorded Do you worry your food will run out before you are able to buy more? 1 11/11/2023 Transportation Needs Answer Date Record ed Does lack of transportation keep you from medica l appointments? 1 11/11/2023 Does lack of transportation keep you from work, meetings or getting things that you need? 1 11/11/2023 Housing Stability Answer Date Recorded What is your housing situation today? 1 11/11/2023 Sex and Gender Information Value Date Recorded Sex Assigned at Not on file Legal Sex Male 6:11 AM TRACK BROOM OPERATOR Gender Identity Not on file Sexual Orientation Not on file Occupation Industry Job Start Date Job End Date unemployed Not on file Not on file Not on file Not on file Not on file Not on file Not on file Obstetrics History Last Filed Vital Signs Vital Sign Reading Time Taken Comments Blood Pressure 117/78 08/10/2024 1:35 PM TRACK BROOM OPERATOR Pulse 72 08/10/2024 1:35 PM TRACK BROOM OPERATOR Temperature 36.7 C (98.1 F) 01/14/2023 9:46 AM CDT Respiratory Rate 18 01/14/2023 9:46 AM CDT Oxygen Saturation 98% 06/08/2024 10: 16 AM CDT Inhaled Oxygen Concentration - - Weight 71.1 kg (156 lb 12.8 oz) 08/10/2024 1:35 PM TRACK BROOM OPERATOR Height 170.7 cm (5' 7.21) 02/04/2024 9:08 AM CD T Body Mass Index 24.41 02/04/2024 9:08 AM CDT Plan of Treatment Upcoming Encounters Date Type Department Care Team (Late st Contact Info) Description 11/09/2024 12:40 PM CDT Procedure Only [facility] [address] [place] [address] Billy Sanon MD [address] [facility] [address] [place], [place] [id number] 12/02/2024 1:00 PM CDT Phone Office Visit [facility] [address] [facility] [address] [facility] [address] [place] [phone] Kate Pugh DO [address] [facility] [address] [place], [place] [id number] Health Maintenance Due Date Last Done Comments Pneumococcal series for age 50+ (1 of 1 - PCV) 2007 RSV vaccine for adults or (1 - Risk 60-74 years 1-dose series) 2017 COVID-19 vaccine series ( season) 2024 06/12/2023, [...] 02/03/2029 02/04/2024, 06/22/2022, 01/20/2020 (Completed outside of [facility]), Additional history exists Tetanus booster 07/11/2029 07/11/2019, 04/16/2006 Colonoscopy through age 75 03/03/203003/03 (Completed outside of [facility]) Tdap Completed 07/11/2019, 04/16/2006 Hepatitis C screening for ag e 18-79 Completed 01/02/2022 Zoster (shingles) series for age 50+ Completed 08/21/2022, 03/26/2022 AAA screening age 65-74 Completed 09/24/2022 Procedures Procedure Name Priority Date/Time Associated Diagnosis Comments [place] LESLIE POST-VOIDING RESIDUAL URINE&/BLADDER CAP Routine 08/10/2024 12:00 AM TRACK BROOM OPERATOR H/O urethral stricture Recurrent UTI PSA (TOTAL) (QUEST) Routine 06/08/2024 10:56 AM CDT Rising PSA level LIPID PANEL W REFLEX MEASURED LDL Routine 02/04/2024 9:53 AM CDT Hyperlipidemia, unspecified hyperlipidemia type US ABD AORTA SCREENING Routine 09/24/2022 9:16 AM TRACK BROOM OPERATOR Screening for AAA (aortic abdominal aneurysm) ANTI HCV Routine 01/02/2022 10:46 AM CDT Encounter for hepatitis C screening test for low risk patient from Last 3 Months or Most Recently Relevant to Health Maintenance Results * [place] LESLIE POST-VOIDING RESIDUAL URINE&/BLADDER CAP (08/10/2024 12:00 AM TRACK BROOM OPERATOR) us Billy Sanon MD PB - URINARY SYSTEM SE RVICES Final Result * PSA (TOTAL) (QUEST) (06/08/2024 10:56 AM CDT) PSA, TOTAL 1.06 < OR = 4.00 ng/mL [facility] Comment: The total PSA value from this assay system is standardized against the WHO standard. The test result will be approximately 20% lower when compared to the equimolar-standardized total PSA ([place]). Comparison of serial PSA results should be [...] 10:56 AM CDT 06/08/2024 10:56 AM CDT us Natalie Mendesq DO SEND OUTS Final Result [facility] [address] [place] [address], [facility] [address] [place] [address] * LIPID PANEL W REFLEX MEASURED LDL (02/04/2024 9:53 AM CDT) CHOLESTEROL,TOTAL 198 100 - 199 mg/dL 02/04/2024 6:48 PM CDT [facility] Comment: Cholesterol, Total Reference Ranges Desirable <200 mg/dL Borderline 200-239 mg/dL High >=240 mg/dL TRIGLYCERIDES 119 <150 mg/dL 02/04/2024 6:48 PM CDT [facility] HDL CHOLESTEROL 67 >40 mg/dL 6:48 PM CDT [facility] NON-HDL CHOLESTEROL 131 <145 mg/dl 02/04/2024 6:48 PM CDT [facility] CHOL/HDL RATIO 2.96 <4.50 02/04/2024 6:48 PM CDT [facility] LDL CHOLESTEROL 107 <=130 mg/dL 02/04/2024 6:48 PM CDT [facility] VLDL CHOLESTEROL 24 <=30 mg/dL 02/04/2024 6:48 PM CDT [facility] PROVIDER ORDERED STATUS RANDOM 02/04/2024 6:48 PM CDT [facility] Blood BLOOD SPECIMEN / Unknown Venipuncture / Unknown 02/04/2024 9:53 AM CDT 02/04/2024 9:53 AM CDT us Natalie Juárez DO CHEMISTRY Final Result [facility] [address] [place] [address], [place] * US ABD AORTA SCREENING [[id number]] (09/24/2022 9:16 AM TRACK BROOM OPERATOR) Anatomical Region Laterality Modality Abdomen, AORTA Ultrasound 09/24/2022 10:4 1 AM TRACK BROOM OPERATOR Impressions 09/24/2022 10:41 AM TRACK BROOM OPERATOR Normal sonographic assessment of the abdominal aorta. Dictated by Colin Dumas MD @ Sep 24 2022 10:41AM (Electronically Signed) Narrative 09/24/2022 10:41 AM TRACK BROOM OPERATOR For Patients: As a result of the Cures Act, medical imaging exams and procedure reports are released immediately into your electronic medical record. You may view this report before your referring provider. If you have questions, please contact your health care provider. INDICATION: Screening for abdominal aortic aneurysms. COMPARISON: None. TECHNIQUE: Nj scale and color images were acquired of the abdominal aorta and iliac arteries. FINDINGS: Sonographic imaging demonstrates a normal appearance of the abdominal aorta and IVC. There is no evidence of aneurysm formation or aortic dissection. Proximally, the aorta measures 2.7 x 2.3 [...] AP and transverse diameter on the right. There were no suspicious periaortic masses. Procedure Note Colin Dumas MD - 09/24/2022 For Patients: As a result of the 21st Century Cures Act, medical imagingexams and procedure [...] @ Sep 24 2022 10:41AM (Electronically Signed) us [employer] Marquita DO US Final Result * ANTI HCV (01/02/2022 10:46 AM CDT) HEPATITIS C ANTIBODY Non-React asia Non-React asia 01/02/2022 6:27 PM CDT [facility] Comment:Antibodies to HCV no t detected; does not exclude the possibility of exposure to HCV. Blood BLOOD SPECIMEN / Unknown Venipuncture / Unknown 01/02/2022 10:46 AM CDT 01/02/2022 10:47 AM CDT Natalie Aliya Vaughnqra DO SEND OUTS Final Result [facility] [address] [place] [address], [place] from Last 3 Months or Most Recently Relevant to Health Maintenance Insurance MEDICARE PB ONLY [facility] ATTN: [place] [address] MEDICARE PART B HB ONLY MEDICARE PART A HB ONLY Care Teams Neon Sign Mechanic Relationship Specialty Start Date End Date Natalie Juárez DO [address] [place] [address] PCP - General Family Practice 03/01/21 Kate Pugh DO [address] [facility] [address] [place] [address] Psychiatry 02/04/23 Billy Sanon MD [address] [place] [address] [place] [address] Surgery - Urology 08/10/24
== END 2024-09-07 11:52 | disposition home or self-care (01) ==
LOC: ED 11:51
PROVIDERS: Emergency Provider Family Medicine; PCP Family Medicine
DX: L98.8 Other specified disorders of the skin and subcutaneous tissue (principal)
CPT/HCPCS: 99282; 99283

== ENCOUNTER 2024-09-22 16:15 | Emergency (ER) | payer MEDICARE, SELFPAY ==
--- OUTSIDE RECORDS SUMMARY | 2024-09-22 16:17 | XMS_ITS | Data Portability ---
Author Organization [facility], [facility] Address [address] [facility] [address] [place] [address] Care Team Providers Care Rice Drier Operator Name Role Phone MARINE HAAS Primary [...] recorded. Lab urinalysis , dipstick 2022 023 [email or web address] [facility], [address], [place], [address], 12:14:01 urinalysis , dipstick 2022 023 [email or web address] [facility], [address], [place], [address], 15:08:08 Referral None recorded. Procedures None recorded. Surgeries None recorded. Imaging None recorded. Medication Orders None recorded. Patient TargetsNo targets recorded. Patient InstructionsNo instructions recorded. Reason for Referral None Reported. Results Created Date Observation Date Name Description Value Unit Range Abnormal Flag Note LastModifiedBy Organization Detail LastModifiedTime 09/27/1909/27/2022 urina lysis , dipst ick Sp [place]-Stat us 1.005 Not Available [facility] [address], [place], [address], 09/27/2022 12:12:58 09/27/19 23 09/27/2022 urina lysis , dipst ick pH-Status 6.0 Not Available [facility] [address], [place], [address], 09/27/2022 12:12:58 09/27/1909/27/2022 urina lysis , dipst ick Nitrates-Sta tus negati ve Not Available [facility] [address], [place], [address], 09/27/2022 12:12:58 09/27/1909/27/2022 urina lysis , dipst ick Blood-Status Trace Not Available [facility] [address], [place], [address], 09/27/2022 12:12:58 09/27/1909/27/2022 urina lysis , dipst ick Leuko-Status Negati ve Not Available [facility] [address], [place], [address], 09/27/2022 12:12:58 02/28/20 23 02/27/2023 urina lysis , dipst ick Color-Status Yellow Not Available [facility] [address], [place], [address], 02/27/2023 15:07:16 02/28/20 23 02/27/2023 urina lysis , dipst ick Clarity-Stat us Clear Not Available [facility] [address], [place], [address], 02/27/2023 15:07:16 02/28/20 23 02/27/2023 urina lysis , dipst ick Glucose-Stat us Negati ve Not Available [facility] [address], [place], [address], 02/27/2023 15:07:16 02/28/20 23 02/27/2023 urina lysis , dipst ick Nitrates-Sta tus negati ve Not Available [facility] [address], [place], [address], 02/27/2023 15:07:16 02/28/20 23 02/27/2023 urina lysis , dipst ick Blood-Status Negati ve Not Available [facility] [address], [place], [address], 02/27/2023 15:07:16 02/28/20 23 02/27/2023 urina lysis , dipst ick Leuko-Status Negati ve Not Available [facility] [address], [place], [address], 02/27/2023 15:07:16 10/02/19 23 09/27/2022 bladd er scan (PROC ) No observ ation record ed. Not Available 2022 22:09:27 03/01/20 23 02/27/2023 bladd er scan (PROC ) No observ ation record ed. BARCODE Not Available 2022 15:39:28 Result Notes None recorded. Procedures Surgical History Date Name Laterality Status Provider Name and Address Organization Details Recorded Time 5 Bladder Scan cancelled Kayla Denson [facility] 09/11/2024 15:45:28 3 Bladder Scan completed Pilar Smith [facility] 08/22/2023 10:45:31 3 UroCuff completed Erma Alves [facility] 08/08/2023 16:46:48 3 Bladder Scan completed Erma Alves [facility] 08/08/2023 16:22:41 3 Bladder Scan completed Romie Santos [facility] 02/27/2023 15:07:12 3 Bladder Scan completed Venkatesh Ontiveros MD [address] [place] [address], [phone] [place] [address] Urology 09/27/2022 12:46:00 0 colonoscopy completed Pilar Smith [facility] 08/22/2023 10:42:53 Imaging Results Imaging Date Name [...] Not Available Vitals Date Recorded Body height Provider Name an d Address Organization Details Last Updated DateTime 09/27/2022 168.91 cm Miriam Rae [facility] 09/27/2022 12:17:56 Date Recorded Body mass index (BMI) Body weight Provider Name and Address Organization Details Last Updated DateTime 09/27/2022 24.6 kg/m2 24959.82 g Miriam Rae [facility] 09/27/2022 12:18:06 Date Recorded Body height Provider Name an d Address Organization Details Last Updated DateTime 02/27/2023 168.91 cm Romie Santos [facility] 02/27/2023 15:03:38 Date Recorded Body mass index (BMI) Body weight Provider Name and Address Organization Details Last Updated DateTime 02/27/2023 24.6 kg/m2 35449.82 g Romie Santos [facility] 02/27/2023 15:03:45 Date Recorded Body height Provider Name an d Address Organization Details Last Updated DateTime 08/22/2023 168.91 cm Pilar Smith [facility] 08/22/2023 10:42:01 Date Recorded Body mass index (BMI) Body weight Provider Name and Address Organization Details Last Updated DateTime 08/22/2023 26.2 kg/m2 97109.74 g Pilar Smith [facility] 08/22/2023 10:42:08 Social History Question Answer Notes LastModified by Organizat ion Details LastModified Time Tobacco Smoking Status Former Smoker Miriam marcelo [facility] 09/27/2022 12:24:21 What Is Your Level Of Alcohol Consumption? None Information not available 02/27/2023 What Is Your Level Of Caffeine Consumption? Moderate Information not available 02/27/2023 Are You Currently Employed? No Information not available 02/27/2023 When Did You Quit Smoking? 1-5yearssince lastcigarette [email or web address] Information not available 08/22/2023 Recreational Drug Use No Information not available 02/27/2023 What Was The Date Of Your Most Recent Tobacco Screening? 08/22/2023 [email or web address] Information not available 08/22/2023 What Is Your [...] 50 mcg/0.5 mL 3 completed Pilar marcelo [facility] 08/22/2023 10:42:13 Influenza, split virus, quadrivalent, PF 3 completed Pilar marcelo [facility] 08/22/2023 10:42:13 zoster recombinant 2 completed [facility] 07/03/2023 17:11:29 zoster recombinant 2 completed [facility]cel[facility] 07/03/2023 17:11:29 COVID-19, mRNA, LNP-S, PF, 100 mcg/0.5mL dose or 50 mcg/0.25mL dose 1 completed Jenny marcelo [facility] 07/03/2023 17:11:29 COVID-19, mRNA, LNP-S, PF, 100 mcg/0.5mL dose or 50 mcg/0.25mL dose 1 completed Jenny marcelo [facility] 07/03/2023 17:11:29 COVID-19, mRNA, LNP-S, PF, 100 mcg/0.5mL dose or 50 mcg/0.25mL dose 2 completed Jenny marcelo [facility] 07/03/2023 17:11:29 COVID-19, mRNA, LNP-S, PF, 100 mcg/0.5mL dose or 50 mcg/0.25mL dose 1 completed Jenny marcelo [facility] 07/03/2023 17:11:29 COVID-19, mRNA, LNP-S, bivalent, PF, 50 mcg/0.5 mL or 25mcg/0.25 mL dose 2 completed Jenny marcelo [facility] 07/03/2023 17:11:29 Tdap 9 completed Jenny marcelo [facility] 07/03/2023 17:11:29 Influenza, split virus, trivalent, preservative [address] [facility] 07/03/2023 17:11:29 Past Encounters Encounter ID Performer Location Encounter Start Date Encounter Closed Date Diagnosis/Indication Diagnosis SNOMED-CT Code Diagnosis ICD10 Code Diagnosis Note [id number] MD Margarette Mcneill [address] [place] [address] 09/27/2022 11:56:38 10/01/2022 14:14:58 Urethral stricture 78170500 N35.919 - Will set up for Q6 month UroCuff- PVR today 134 mL- If evidence of recurrence then would recommend Optilume dilation Recurrent urinary tract infection 813435303 N39.0 - Start TheraCran given recurrent E coli UTIs [id number] MD Margarette Mcneill [address] [place] [address] 02/27/2023 14:11:30 03/07/2023 08:28:19 Urethral stricture 20214307 N35.919 - Will set up for UroCuff- PVR today 21 mL- If evidence of recurrence then would recommend Optilume dilation Recurrent urinary tract infection N39.0 - Start TheraCran given recurrent E coli UTIs- Could also add d-Mannose supplement [id number] Erma Alves [facility] [address] [place] [address] 08/08/2023 10:50:58 08/16/2023 11:25:54 Urethral stricture 36997164 N35.919 [id number] Venkatesh Ontiveros MD [facility] [address] [place] [address] 08/22/2023 10:36:02 09/04/2023 10:08:51 Urethral stricture 91832309 N35.919 - UroCuff reviewed- IPSS: 5 (2)- PVR today 35 mL- If evidence of recurrence then would recommend Optilume dilation- Follow up in 1 year with UroCuff Recurrent urinary tract infection N3.0 - Continue TheraCran given recurrent E coli [...] ID Guarantor Name 09/27/2022 1 [place]: [employer] [facility] Jerry Ballesteros [id number] Jerry Greenz 02/27/2023 1 [place]: [employer] [facility] Jerry Ballesteros [id number] 6 Jerry Greenz 08/08/2023 1 [place]: [employer] [facility] Jerry Ballesteros [id number] 6 Jerry Greenz 08/22/2023 1 [place]IC[place]: [employer] [facility] Jerry Ballesteros [id number] 6 Jerry Ballesteros Notes Date Note Type Note Provider Name and Address Organization Details Recorded Time 09/27/2022 text/html Mr. Ballesteros is a very pleasant 67-year-old male with a history of imperforate anus, solitary kidney, and history of urethral stricture disease requiring multiple dilations. Patient states that his last dilation was about [address] Prabhakar. Was seeing a Hydrometer Calibrator while living in [place] but it has [...] any more than usual. Venkatesh Ontiveros MD [address] [place] [address],[address], [address] 09/27/2022 12:46:39 02/27/2023 text/html Mr. Ballesteros is a very pleasant 67-year-old male with a history of imperforate anus, solitary kidney, and history of urethral stricture disease requiring multiple dilations. Patient states that his last dilation was about [address] Prabhakar. Was seeing a Hydrometer Calibrator while living in [place] but it has [...] started cranberry supplement. Venkatesh Ontiveros MD [address] [facility],[address], [place], [address], [facility] 02/27/2023 22:10:59 08/22/2023 text/html Mr. Ballesteros is a very pleasant 67-year-old male with a history of imperforate anus, solitary kidney, and history of urethral stricture disease requiring multiple dilations. Patient states that his last dilation was about [address] Prabhakar. Was seeing a Hydrometer Calibrator while living in [place] but it has [...] no recent UTIs. Venkatesh Ontiveros MD [address] [facility],[address], [place], [address], [facility] [place] [facility] 08/22/2023 13:34:58
[2024-09-22 16:24] VITALS: BP 120/75; PULSE 118; RESP 16; TEMP 36.8; O2SAT 96
[2024-09-22 17:15] LABS: PCR FLU A Negative PCR FLU A (Negative); PCR FLU B Negative PCR FLU B (Negative); PCR RSV Negative PCR RSV (Negative); SARS PCR* Negative SARS-CoV-2 (Negative)
--- OUTSIDE RECORDS SUMMARY | 2024-09-22 17:17 | XMS_ITS | CCD ---
Author Name Interface, [email or web address] lity Address [facility], [place] [address] Organization [facility] ociates Address [facility], [place] [address] Allergies and Adverse Reactions Medication/Group Name Reaction Severity Date No known allergies Reason for Visit Medications Date Name Route Dose Frequency Instructions Start Date End Date Status 07/07/20 18 Clonazepam Oral PO 1.0 TABLET(S ) TID 8 active 07/07/20 18 Pravastatin Sodium Oral PO 1.0 TABLET(S ) QHS 8 active 07/07/20 18 Loperamide Oral PO 1.0 CAPSULE( S) as directed 8 active 07/07/20 18 Temazepam Oral PO 1.0 CAPSULE( S) QHS 8 active Problems Diagnosis Status Date of Diagnosi s Body mass index [BMI] 19.9 or less, adult Inacti ve Body mass index [BMI] 23.0-23.9, adult Inactive Body mass index [BMI] 22.0-22.9, adult Inactive Complete fecal incontinence (finding) Active Incontinence of feces (finding) Active Social History Date Name Value Sex Male
--- OUTSIDE RECORDS SUMMARY | 2024-09-22 17:18 | XMS_ITS | CCD ---
Author Name Interface, [email or web address] [address] Organization [facility] [place] [address] Allergies and Adverse Reactions Reason for Visit Medications Problems Social History
--- OUTSIDE RECORDS SUMMARY | 2024-09-22 17:18 | XMS_ITS | Data Portability ---
Author Organization [place] - [employer] [facility] - [facility] 12/30/15 [address] [place] [address] Care Team Providers Care Passenger Attendant Name Role Phone SAMEERA RIDLEY Primary Care Provider [phone] Assessment Encounter Date Assessment Date Assessment LastModified by Organization Details LastModified Time 02/04/2020 02/04/2020 Time spent on this telephone encounter exceeds 11 minutes. [email or web address] Not available 02/04/2020 13:19:46 Plan of Treatment Reminders Order Date Submit Date Provider Last Modified By Organization Details Last Modified Time Details Appointments None recorded. Lab CMP, serum or plasma 2016 017 [facility], [address] [place], [place] [address]za, [address], [address], [place], [address], 8 19:46:50 magnesium, blood 2016 017 [facility], [address] [place], [place] [address]za, [address], [address], [place], [address], 8 19:46:50 phosphorus , blood 2016 017 [facility], [address] [place], [place] [address]za, [address], [address], [place], [address], 8 19:46:50 protein:cr eatinine ratio, urine 2016 017 [facility], [address], [address], [address], [place], [address], 8 19:46:50 CBC w/ auto diff 2016 017 [facility], [address], [address], [address], [place], [address], 8 19:46:50 urinalysis , dipstick, reflex micro 2016 017 [facility], [address], [address], [address], [place], [address], 8 19:46:50 uric acid, serum or plasma 2016 017 [facility], [address], [address], [address], [place], [address], 8 19:46:51 CMP, serum or plasma 2017 018 [facility], [address], [address], [address], [place], [address], 9 17:00:34 magnesium, blood 2017 018 [facility], [address], [address], [address], [place], [address], 8 20:07:04 phosphorus , blood 2017 018 [facility], [address], [address], [address], [place], [address], 8 20:07:04 protein:cr eatinine ratio, urine 2017 018 [facility], [address], [address], [address], [place], [address], 8 20:07:04 CBC w/ auto diff 2017 018 [facility], [address], [address], [address], [place], [address], 9 16:56:21 uric acid, serum or plasma 2017 018 [facility], [address], [address], [place], [address], 8 20:07:04 urinalysis complete, reflex culture 2017 018 [facility], [address], [address], [place], [address], 9 16:56:21 urinalysis , dipstick, reflex micro 2017 018 [facility], [address], [address], [address], [place], [address], 8 20:07:04 magnesium, blood 2018 019 [facility], [address], [address], [address], [place], [address], 9 14:09:34 phosphorus , blood 2018 019 [facility], [address], [address], [address], [place], [address], 9 14:09:34 protein:cr eatinine ratio, urine 2018 019 [facility], [address], [address], [place], [address], 9 18:56:10 uric acid, serum or plasma 2018 019 [facility], [address], [address], [address], [place], [address], 9 14:09:34 BMP, serum or plasma 2018 019 [facility], [address], [address], [place], [address], 9 14:09:34 PTH (parathyro id hormone), intact, serum or plasma 2018 020 [facility], [address], [address], [address], [place], [address], 0 19:51:03 vitamin D, 25-hydroxy , total, serum 2018 020 [facility], [address], [address], [place], [address], 0 19:51:03 CBC w/ auto diff 2018 020 [facility], [address], [address], [address], [place], [address], 0 19:51:03 magnesium, serum or plasma 2018 020 [facility], [address], [address], [place], [address], 0 19:51:03 protein:cr eatinine ratio, urine 2018 020 [facility], [address], [address], [place], [address], 0 19:51:03 uric acid, serum or plasma 2018 020 [facility], [address], [address], [address], [place], [address], 0 19:51:03 renal function panel, serum 2018 020 [facility], [address], [address], [place], [address], 0 19:51:03 PTH (parathyro id hormone), intact, serum or plasma 2019 021 [facility], [address], [address], [place], [address], 1 15:55:27 vitamin D, 25-hydroxy , total, serum 2019 021 [facility], [address], [address], [place], [address], 1 15:55:27 CBC w/ auto diff 2019 021 [facility], [address], [address], [place], [address], 1 13:57:47 magnesium, serum or plasma 2019 021 [facility], [address], [address], [address], [place], [address], 1 15:55:27 protein:cr eatinine ratio, urine 2019 021 [facility], [address], [address], [address], [place], [address], 1 15:55:27 uric acid, serum or plasma 2019 021 [facility], [address], [address], [address], [place], [address], 1 15:55:27 renal function panel, serum 2019 021 [facility], [address], [address], [address], [place], [address], 1 15:55:27 Referral None recorded. Procedures None recorded. Surgeries None recorded. Imaging None recorded. Medication Orders losartan 50 mg tablet [email or web address] [facility], [address] [place] [address], [place], [address], 9 12:17:21 Patient TargetsNo targets recorded. Patient InstructionsNo instructions recorded. Reason for Referral None Reported. Results Created Date Observation Date Name Description Value Unit Range Abnormal Flag Note LastModifiedBy Organization Detail LastModifiedTime 05/23/20 17 05/23/2017 lipid panel , serum color, urine straw Not Available [facility] [address], [address], [place], [address], 05/23/2017 17:03:45 05/23/20 17 05/23/2017 lipid panel , serum clarity, urine clear Not Available [facility] [address], [address], [place], [address], 05/23/2017 17:03:45 05/23/20 17 05/23/2017 lipid panel , serum pH, urine 1.006 Not Available [facility] [address], [address], [place], [address], 05/23/2017 17:03:45 05/23/20 17 05/23/2017 lipid panel , serum protein, urine negati ve Not Available [facility] [address], [address], [place], [address], 05/23/2017 17:03:45 05/23/20 17 05/23/2017 lipid panel , serum glucose, urine negati ve Not Available [facility] [address], [address], [place], [address], 05/23/2017 17:03:45 05/23/20 17 05/23/2017 lipid panel , serum ketones, urine negati ve Not Available [facility] [address], [address], [place], [address], 05/23/2017 17:03:45 05/23/20 17 05/23/2017 lipid panel , serum bilirubin, urine negati ve Not Available [facility] [address], [address], [place], [address], 05/23/2017 17:03:45 05/23/20 17 05/23/2017 lipid panel , serum blood, urine negati ve Not Available [facility] [address], [address], [place], [address], 05/23/2017 17:03:45 05/23/20 17 05/23/2017 lipid panel , serum nitrite, urine negati ve Not Available [facility] [address], [address], [place], [address], 05/23/2017 17:03:45 05/23/20 17 05/23/2017 lipid panel , serum leukocyte esterase negati ve Not Available [facility] [address], [address], [place], [address], 05/23/2017 17:03:45 05/23/20 17 05/23/2017 lipid panel , serum urobilinogen , urine <2.0 Not Available [facility] [address], [address], [place], [address], 05/23/2017 17:03:45 05/23/20 17 05/23/2017 lipid panel , serum protein, urine, random 9.8 Not Available [facility] [address], [address], [place], [address], 05/23/2017 17:03:45 05/23/20 17 05/23/2017 lipid panel , serum creatinine, urine, random 24.9 Not Available [facility] [address], [address], [place], [address], 05/23/2017 17:03:45 05/23/20 17 05/23/2017 lipid panel , serum HGB 14.7 Not Available [facility] [address], [address], [place], [address], 05/23/2017 17:03:45 05/23/20 17 05/23/2017 lipid panel , serum HCT 44.5 Not Available [facility] [address], [address], [place], [address], 05/23/2017 17:03:45 05/23/20 17 05/23/2017 lipid panel , serum WBC 4.5 Not Available [facility] [address], [address], [place], [address], 05/23/2017 17:03:45 05/23/20 17 05/23/2017 lipid panel , serum plt 212 Not Available [facility] [address], [address], [place], [address], 05/23/2017 17:03:45 05/23/20 17 05/23/2017 lipid panel , serum sodium, serum 137 Not Available [facility] [address], [address], [place], [address], 05/23/2017 17:03:45 05/23/20 17 05/23/2017 lipid panel , serum potassium, serum 3.5 Not Available [facility] [address], [address], [place], [address], 05/23/2017 17:03:45 05/23/20 17 05/23/2017 lipid panel , serum chloride, serum 99 Not Available [facility] [address], [address], [place], [address], 05/23/2017 17:03:45 05/23/20 17 05/23/2017 lipid panel , serum carbon dioxide 27 Not Available [facility] [address], [address], [place], [address], 05/23/2017 17:03:45 05/23/20 17 05/23/2017 lipid panel , serum calcium, serum 9.0 Not Available [facility] [address], [address], [place], [address], 05/23/2017 17:03:45 05/23/20 17 05/23/2017 lipid panel , serum glucose, serum 101 Not Available [facility] [address], [address], [place], [address], 05/23/2017 17:03:45 05/23/20 17 05/23/2017 lipid panel , serum BUN 24 Not Available [facility] [address], [address], [place], [address], 05/23/2017 17:03:45 05/23/20 17 05/23/2017 lipid panel , serum creatinine 1.60 Not Available [facility] [address], [address], [place], [address], 05/23/2017 17:03:45 05/23/20 17 05/23/2017 lipid panel , serum GFR 44 Not Available [facility] [address], [address], [place], [address], 05/23/2017 17:03:45 05/23/20 17 05/23/2017 lipid panel , serum bilirubin, total 0.5 Not Available [facility] [address] [facility] [address], [address], [place], [address], 05/23/2017 17:03:45 05/23/20 17 05/23/2017 lipid panel , serum alkaline phosphatase 43 Not Available [facility] [address] [facility] [address], [address], [place], [address], 05/23/2017 17:03:45 05/23/20 17 05/23/2017 lipid panel , serum albumin, serum 4.1 Not Available [facility] [address] [facility] [address], [address], [place], [address], 05/23/2017 17:03:45 05/23/20 17 05/23/2017 lipid panel , serum protein, total, serum 7.0 Not Available [facility] [address] [facility] [address], [address], [place], [address], 05/23/2017 17:03:45 05/23/20 17 05/23/2017 lipid panel , serum magnesium 1.8 Not Available [facility] [address] [facility] [address], [address], [place], [address], 05/23/2017 17:03:45 05/23/20 17 05/23/2017 lipid panel , serum phosphorus 2.8 Not Available [facility] [address], [address], [place], [address], 05/23/2017 17:03:45 05/23/20 17 05/23/2017 lipid panel , serum uric acid 6.1 Not Available [facility] [address] [facility] [address], [address], [place], [address], 05/23/2017 17:03:45 05/23/20 17 05/23/2017 lipid panel , serum PSA, total 0.762 Not Available [facility] [address] [facility] [address], [address], [place], [address], 05/23/2017 17:03:45 05/23/20 17 05/23/2017 PSA, serum or plasm a color, urine straw Not Available [facility] [address] [facility] [address] [address], [place], [address], 05/23/2017 17:03:45 05/23/20 17 05/23/2017 PSA, serum or plasm a clarity, urine clear Not Available [facility] [address] [facility] [address] [address], [address], [place], [address], 05/23/2017 17:03:45 05/23/20 17 05/23/2017 PSA, serum or plasm a pH, urine 1.006 Not Available [facility] [address] [facility] [address] [address], [address], [place], [address], 05/23/2017 17:03:45 05/23/20 17 05/23/2017 PSA, serum or plasm a protein, urine negati ve Not Available [facility] [address] [facility] [address] [address], [address], [place], [address], 05/23/2017 17:03:45 05/23/20 17 05/23/2017 PSA, serum or plasm a glucose, urine negati ve Not Available [facility] [address] [facility] [address] [address], [address], [place], [address], 05/23/2017 17:03:45 05/23/20 17 05/23/2017 PSA, serum or plasm a ketones, urine negati ve Not Available [facility] [address] [facility] [address] [address], [address], [place], [address], 05/23/2017 17:03:45 05/23/20 17 05/23/2017 PSA, serum or plasm a bilirubin, urine negati ve Not Available [facility] [address] [facility] [address], [address], [place], [address], 05/23/2017 17:03:45 05/23/20 17 05/23/2017 PSA, serum or plasm a blood, urine negati ve Not Available [facility] [address] [facility] [address], [address], [place], [address], 05/23/2017 17:03:45 05/23/20 17 05/23/2017 PSA, serum or plasm a nitrite, urine negati ve Not Available [facility] [address] [facility] [address], [address], [place], [address], 05/23/2017 17:03:45 05/23/20 17 05/23/2017 PSA, serum or plasm a leukocyte esterase negati ve Not Available [facility] [address] [facility] [address], [address], [place], [address], 05/23/2017 17:03:45 05/23/20 17 05/23/2017 PSA, serum or plasm a urobilinogen , urine <2.0 Not Available [facility] [address] [facility] [address], [address], [place], [address], 05/23/2017 17:03:45 05/23/20 17 05/23/2017 PSA, serum or plasm a protein, urine, random 9.8 Not Available [facility] [address] [facility] [address], [address], [place], [address], 05/23/2017 17:03:45 05/23/20 17 05/23/2017 PSA, serum or plasm a creatinine, urine, random 24.9 Not Available [facility] [address] [facility], [address], [place], [address], 05/23/2017 17:03:45 05/23/20 17 05/23/2017 PSA, serum or plasm a HGB 14.7 Not Available [facility] [address] [facility] [address], [address], [place], [address], 05/23/2017 17:03:45 05/23/20 17 05/23/2017 PSA, serum or plasm a HCT 44.5 Not Available [facility] [address] [facility] [address], [address], [place], [address], 05/23/2017 17:03:45 05/23/20 17 05/23/2017 PSA, serum or plasm a WBC 4.5 Not Available [facility] [address] [facility] [address], [address], [place], [address], 05/23/2017 17:03:45 05/23/20 17 05/23/2017 PSA, serum or plasm a plt 212 Not Available [facility] [address] [facility] [address], [address], [place], [address], 05/23/2017 17:03:45 05/23/20 17 05/23/2017 PSA, serum or plasm a sodium, serum 137 Not Available [facility] [address] [facility] [address], [address], [place], [address], 05/23/2017 17:03:45 05/23/20 17 05/23/2017 PSA, serum or plasm a potassium, serum 3.5 Not Available [facility] [address] [facility] [address], [address], [place], [address], 05/23/2017 17:03:45 05/23/20 17 05/23/2017 PSA, serum or plasm a chloride, serum 99 Not Available [facility] [address] [facility] [address], [address], [place], [address], 05/23/2017 17:03:45 05/23/20 17 05/23/2017 PSA, serum or plasm a carbon dioxide 27 Not Available [facility] [address] [facility] [address], [address], [place], [address], 05/23/2017 17:03:45 05/23/20 17 05/23/2017 PSA, serum or plasm a calcium, serum 9.0 Not Available [facility] [address] [facility] [address], [address], [place], [address], 05/23/2017 17:03:45 05/23/20 17 05/23/2017 PSA, serum or plasm a glucose, serum 101 Not Available [facility] [address] [facility] [address], [place], [address], 05/23/2017 17:03:45 05/23/20 17 05/23/2017 PSA, serum or plasm a BUN 24 Not Available [facility] [address] [facility] [address], [place], [address], 05/23/2017 17:03:45 05/23/20 17 05/23/2017 PSA, serum or plasm a creatinine 1.60 Not Available [facility] [address] [facility] [address], [address], [place], [address], 05/23/2017 17:03:45 05/23/20 17 05/23/2017 PSA, serum or plasm a GFR 44 Not Available [facility] [address] [facility] [address], [address], [place], [address], 05/23/2017 17:03:45 05/23/20 17 05/23/2017 PSA, serum or plasm a bilirubin, total 0.5 Not Available [facility] [address] [facility] [address], [address], [place], [address], 05/23/2017 17:03:45 05/23/20 17 05/23/2017 PSA, serum or plasm a alkaline phosphatase 43 Not Available [facility] [address] [facility] [address], [address], [place], [address], 05/23/2017 17:03:45 05/23/20 17 05/23/2017 PSA, serum or plasm a albumin, serum 4.1 Not Available [address], [address], [place], [address], 05/23/2017 17:03:45 05/23/20 17 05/23/2017 PSA, serum or plasm a protein, total, serum 7.0 Not Available [address], [address], [place], [address], 05/23/2017 17:03:45 05/23/20 17 05/23/2017 PSA, serum or plasm a magnesium 1.8 Not Available [address], [address], [place], [address], 05/23/2017 17:03:45 05/23/20 17 05/23/2017 PSA, serum or plasm a phosphorus 2.8 Not Available [address], [address], [place], [address], 05/23/2017 17:03:45 05/23/20 17 05/23/2017 PSA, serum or plasm a uric acid 6.1 Not Available [address], [address], [place], [address], 05/23/2017 17:03:45 05/23/20 17 05/23/2017 PSA, serum or plasm a PSA, total 0.762 Not Available [address], [address], [place], [address], 05/23/2017 17:03:45 05/23/20 17 05/23/2017 uric acid, serum or plasm a color, urine straw Not Available [address], [address], [place], [address], 05/23/2017 17:03:45 05/23/20 17 05/23/2017 uric acid, serum or plasm a clarity, urine clear Not Available [address], [address], [place], [address], 05/23/2017 17:03:45 05/23/20 17 05/23/2017 uric acid, serum or plasm a pH, urine 1.006 Not Available [facility] [address], [address], [place], [address], 05/23/2017 17:03:45 05/23/20 17 05/23/2017 uric acid, serum or plasm a protein, urine negati ve Not Available [address], [address], [place], [address], 05/23/2017 17:03:45 05/23/20 17 05/23/2017 uric acid, serum or plasm a glucose, urine negati ve Not Available [address] [facility] [address], [address], [place], [address], 05/23/2017 17:03:45 05/23/20 17 05/23/2017 uric acid, serum or plasm a ketones, urine negati ve Not Available [facility] [address] [place] [address] [address], [address], [place], [address], 05/23/2017 17:03:45 05/23/20 17 05/23/2017 uric acid, serum or plasm a bilirubin, urine negati ve Not Available [address], [address], [place], [address], 05/23/2017 17:03:45 05/23/20 17 05/23/2017 uric acid, serum or plasm a blood, urine negati ve Not Available [facility] [address] [facility] [address], [address], [place], [address], 05/23/2017 17:03:45 05/23/20 17 05/23/2017 uric acid, serum or plasm a nitrite, urine negati ve Not Available [facility] [address] [facility] [address], [place], [address], 05/23/2017 17:03:45 05/23/20 17 05/23/2017 uric acid, serum or plasm a leukocyte esterase negati ve Not Available [facility] [address] [facility] [address], [place], [address], 05/23/2017 17:03:45 05/23/20 17 05/23/2017 uric acid, serum or plasm a urobilinogen , urine <2.0 Not Available [facility] [address] [facility] [address], [place], [address], 05/23/2017 17:03:45 05/23/20 17 05/23/2017 uric acid, serum or plasm a protein, urine, random 9.8 Not Available [facility] [address] [facility] [address], [place], [address], 05/23/2017 17:03:45 05/23/20 17 05/23/2017 uric acid, serum or plasm a creatinine, urine, random 24.9 Not Available [facility] [address] [facility] [address], [place], [address], 05/23/2017 17:03:45 05/23/20 17 05/23/2017 uric acid, serum or plasm a HGB 14.7 Not Available [facility] [address] [facility] [address], [place], [address], 05/23/2017 17:03:45 05/23/20 17 05/23/2017 uric acid, serum or plasm a HCT 44.5 Not Available [facility] [address] [facility] [address], [address], [place], [address], 05/23/2017 17:03:45 05/23/20 17 05/23/2017 uric acid, serum or plasm a WBC 4.5 Not Available [facility] [address] [place] [address] [address], [address], [place], [address], 05/23/2017 17:03:45 05/23/20 17 05/23/2017 uric acid, serum or plasm a plt 212 Not Available [facility] [address] [facility] [address], [address], [place], [address], 05/23/2017 17:03:45 05/23/20 17 05/23/2017 uric acid, serum or plasm a sodium, serum 137 Not Available [address], [address], [place], [address], 05/23/2017 17:03:45 05/23/20 17 05/23/2017 uric acid, serum or plasm a potassium, serum 3.5 Not Available [address], [address], [place], [address], 05/23/2017 17:03:45 05/23/20 17 05/23/2017 uric acid, serum or plasm a chloride, serum 99 Not Available [address], [address], [place], [address], 05/23/2017 17:03:45 05/23/20 17 05/23/2017 uric acid, serum or plasm a carbon dioxide 27 Not Available [address], [address], [place], [address], 05/23/2017 17:03:45 05/23/20 17 05/23/2017 uric acid, serum or plasm a calcium, serum 9.0 Not Available [address], [address], [place], [address], 05/23/2017 17:03:45 05/23/20 17 05/23/2017 uric acid, serum or plasm a glucose, serum 101 Not Available [facility] [address] [facility] [address], [address], [place], [address], 05/23/2017 17:03:45 05/23/20 17 05/23/2017 uric acid, serum or plasm a BUN 24 Not Available [facility] [address] [facility] [address], [address], [place], [address], 05/23/2017 17:03:45 05/23/20 17 05/23/2017 uric acid, serum or plasm a creatinine 1.60 Not Available [facility] [address] [facility] [address], [address], [place], [address], 05/23/2017 17:03:45 05/23/20 17 05/23/2017 uric acid, serum or plasm a GFR 44 Not Available [facility] [address] [facility] [address], [address], [place], [address], 05/23/2017 17:03:45 05/23/20 17 05/23/2017 uric acid, serum or plasm a bilirubin, total 0.5 Not Available [facility] [address] [facility] [address], [address], [place], [address], 05/23/2017 17:03:45 05/23/20 17 05/23/2017 uric acid, serum or plasm a alkaline phosphatase 43 Not Available [facility] [address] [facility] [address], [address], [place], [address], 05/23/2017 17:03:45 05/23/20 17 05/23/2017 uric acid, serum or plasm a albumin, serum 4.1 Not Available [facility] [address] [facility] [address], [address], [place], [address], 05/23/2017 17:03:45 05/23/20 17 05/23/2017 uric acid, serum or plasm a protein, total, serum 7.0 Not Available [facility] [address] [facility] [address], [address], [place], [address], 05/23/2017 17:03:45 05/23/20 17 05/23/2017 uric acid, serum or plasm a magnesium 1.8 Not Available [facility] [address] [facility] [address], [address], [place], [address], 05/23/2017 17:03:45 05/23/20 17 05/23/2017 uric acid, serum or plasm a phosphorus 2.8 Not Available [address], [address], [place], [address], 05/23/2017 17:03:45 05/23/20 17 05/23/2017 uric acid, serum or plasm a uric acid 6.1 Not Available [facility] [address] [facility] [address], [address], [place], [address], 05/23/2017 17:03:45 05/23/20 17 05/23/2017 uric acid, serum or plasm a PSA, total 0.762 Not Available [facility] [address] [facility] [address], [address], [place], [address], 05/23/2017 17:03:45 05/23/20 17 05/23/2017 phosp horus , blood color, urine straw Not Available [facility] [address] [facility] [address], [address], [place], [address], 05/23/2017 17:03:45 05/23/20 17 05/23/2017 phosp horus , blood clarity, urine clear Not Available [facility] [address] [facility] [address], [address], [place], [address], 05/23/2017 17:03:45 05/23/20 17 05/23/2017 phosp horus , blood pH, urine 1.006 Not Available [facility] [address], [address], [place], [address], 05/23/2017 17:03:45 05/23/20 17 05/23/2017 phosp horus , blood protein, urine negati ve Not Available [facility] [address], [address], [place], [address], 05/23/2017 17:03:45 05/23/20 17 05/23/2017 phosp horus , blood glucose, urine negati ve Not Available [facility] [address], [address], [place], [address], 05/23/2017 17:03:45 05/23/20 17 05/23/2017 phosp horus , blood ketones, urine negati ve Not Available [facility] [address], [address], [place], [address], 05/23/2017 17:03:45 05/23/20 17 05/23/2017 phosp horus , blood bilirubin, urine negati ve Not Available [facility] [address], [address], [place], [address], 05/23/2017 17:03:45 05/23/20 17 05/23/2017 phosp horus , blood blood, urine negati ve Not Available [facility] [address], [address], [place], [address], 05/23/2017 17:03:45 05/23/20 17 05/23/2017 phosp horus , blood nitrite, urine negati ve Not Available [facility] [address], [address], [place], [address], 05/23/2017 17:03:45 05/23/20 17 05/23/2017 phosp horus , blood leukocyte esterase negati ve Not Available [facility] [address], [address], [place], [address], 05/23/2017 17:03:45 05/23/20 17 05/23/2017 phosp horus , blood urobilinogen , urine <2.0 Not Available [facility] [address], [address], [place], [address], 05/23/2017 17:03:45 05/23/20 17 05/23/2017 phosp horus , blood protein, urine, random 9.8 Not Available [facility] [address], [address], [place], [address], 05/23/2017 17:03:45 05/23/20 17 05/23/2017 phosp horus , blood creatinine, urine, random 24.9 Not Available [facility] [address], [address], [place], [address], 05/23/2017 17:03:45 05/23/20 17 05/23/2017 phosp horus , blood HGB 14.7 Not Available [facility] [address], [address], [place], [address], 05/23/2017 17:03:45 05/23/20 17 05/23/2017 phosp horus , blood HCT 44.5 Not Available [facility] [address], [address], [place], [address], 05/23/2017 17:03:45 05/23/20 17 05/23/2017 phosp horus , blood WBC 4.5 Not Available [facility] [address], [address], [place], [address], 05/23/2017 17:03:45 05/23/20 17 05/23/2017 phosp horus , blood plt 212 Not Available [facility] [address], [address], [place], [address], 05/23/2017 17:03:45 05/23/20 17 05/23/2017 phosp horus , blood sodium, serum 137 Not Available [facility] [address], [address], [place], [address], 05/23/2017 17:03:45 05/23/20 17 05/23/2017 phosp horus , blood potassium, serum 3.5 Not Available [facility] [address], [address], [place], [address], 05/23/2017 17:03:45 05/23/20 17 05/23/2017 phosp horus , blood chloride, serum 99 Not Available [facility] [address], [address], [place], [address], 05/23/2017 17:03:45 05/23/20 17 05/23/2017 phosp horus , blood carbon dioxide 27 Not Available [facility] [address], [address], [place], [address], 05/23/2017 17:03:45 05/23/20 17 05/23/2017 phosp horus , blood calcium, serum 9.0 Not Available [facility] [address], [address], [place], [address], 05/23/2017 17:03:45 05/23/20 17 05/23/2017 phosp horus , blood glucose, serum 101 Not Available [facility] [address], [address], [place], [address], 05/23/2017 17:03:45 05/23/20 17 05/23/2017 phosp horus , blood BUN 24 Not Available [facility] [address] [facility] [address], [address], [place], [address], 05/23/2017 17:03:45 05/23/20 17 05/23/2017 phosp horus , blood creatinine 1.60 Not Available [facility] [address] [facility] [address], [address], [place], [address], 05/23/2017 17:03:45 05/23/20 17 05/23/2017 phosp horus , blood GFR 44 Not Available [facility] [address] [facility] [address], [address], [place], [address], 05/23/2017 17:03:45 05/23/20 17 05/23/2017 phosp horus , blood bilirubin, total 0.5 Not Available [facility] [address] [facility] [address], [address], [place], [address], 05/23/2017 17:03:45 05/23/20 17 05/23/2017 phosp horus , blood alkaline phosphatase 43 Not Available [facility] [address] [facility] [address], [address], [place], [address], 05/23/2017 17:03:45 05/23/20 17 05/23/2017 phosp horus , blood albumin, serum 4.1 Not Available [facility] [address] [facility] [address], [address], [place], [address], 05/23/2017 17:03:45 05/23/20 17 05/23/2017 phosp horus , blood protein, total, serum 7.0 Not Available [facility] [address] [facility] [address], [address], [place], [address], 05/23/2017 17:03:45 05/23/20 17 05/23/2017 phosp horus , blood magnesium 1.8 Not Available [facility] [address] [facility] [address], [address], [place], [address], 05/23/2017 17:03:45 05/23/20 17 05/23/2017 phosp horus , blood phosphorus 2.8 Not Available [facility], [address], [place], [address], 05/23/2017 17:03:45 05/23/20 17 05/23/2017 phosp horus , blood uric acid 6.1 Not Available [facility] [address] [facility] [address], [address], [place], [address], 05/23/2017 17:03:45 05/23/20 17 05/23/2017 phosp horus , blood PSA, total 0.762 Not Available [facility] [address] [facility] [address], [address], [place], [address], 05/23/2017 17:03:45 05/23/20 17 05/23/2017 magne sium, blood color, urine straw Not Available [facility] [address] [facility] [address], [address], [place], [address], 05/23/2017 17:03:45 05/23/20 17 05/23/2017 magne sium, blood clarity, urine clear Not Available [facility] [address] [facility] [address], [address], [place], [address], 05/23/2017 17:03:45 05/23/20 17 05/23/2017 magne sium, blood pH, urine 1.006 Not Available [facility] [address] [facility] [address], [address], [place], [address], 05/23/2017 17:03:45 05/23/20 17 05/23/2017 magne sium, blood protein, urine negati ve Not Available [facility] [address] [facility] [address], [address], [place], [address], 05/23/2017 17:03:45 05/23/20 17 05/23/2017 magne sium, blood glucose, urine negati ve Not Available [facility] [address] [facility] [address], [address], [place], [address], 05/23/2017 17:03:45 05/23/20 17 05/23/2017 magne sium, blood ketones, urine negati ve Not Available [facility] [address] [facility] [address], [address], [place], [address], 05/23/2017 17:03:45 05/23/20 17 05/23/2017 magne sium, blood bilirubin, urine negati ve Not Available [facility] [address] [facility] [address], [address], [place], [address], 05/23/2017 17:03:45 05/23/20 17 05/23/2017 magne sium, blood blood, urine negati ve Not Available [facility] [address] [facility] [address], [address], [place], [address], 05/23/2017 17:03:45 05/23/20 17 05/23/2017 magne sium, blood nitrite, urine negati ve Not Available [facility] [address] [facility] [address], [address], [place], [address], 05/23/2017 17:03:45 05/23/20 17 05/23/2017 magne sium, blood leukocyte esterase negati ve Not Available [facility] [address] [facility] [address], [address], [place], [address], 05/23/2017 17:03:45 05/23/20 17 05/23/2017 magne sium, blood urobilinogen , urine <2.0 Not Available [facility] [address] [facility] [address], [address], [place], [address], 05/23/2017 17:03:45 05/23/20 17 05/23/2017 magne sium, blood protein, urine, random 9.8 Not Available [facility] [address] [facility] [address], [address], [place], [address], 05/23/2017 17:03:45 05/23/20 17 05/23/2017 magne sium, blood creatinine, urine, random 24.9 Not Available [facility] [address] [facility] [address], [address], [place], [address], 05/23/2017 17:03:45 05/23/20 17 05/23/2017 magne sium, blood HGB 14.7 Not Available [facility] [address] [facility] [address], [address], [place], [address], 05/23/2017 17:03:45 05/23/20 17 05/23/2017 magne sium, blood HCT 44.5 Not Available [facility] [address] [facility] [address], [address], [place], [address], 05/23/2017 17:03:45 05/23/20 17 05/23/2017 magne sium, blood WBC 4.5 Not Available [facility] [address] [facility] [address], [address], [place], [address], 05/23/2017 17:03:45 05/23/20 17 05/23/2017 magne sium, blood plt 212 Not Available [facility] [address] [facility] [address], [address], [place], [address], 05/23/2017 17:03:45 05/23/20 17 05/23/2017 magne sium, blood sodium, serum 137 Not Available [facility] [address] [facility] [address], [address], [place], [address], 05/23/2017 17:03:45 05/23/20 17 05/23/2017 magne sium, blood potassium, serum 3.5 Not Available [facility] [address] [facility] [address], [address], [place], [address], 05/23/2017 17:03:45 05/23/20 17 05/23/2017 magne sium, blood chloride, serum 99 Not Available [facility] [address] [facility] [address], [address], [place], [address], 05/23/2017 17:03:45 05/23/20 17 05/23/2017 magne sium, blood carbon dioxide 27 Not Available [facility] [address] [facility] [address], [address], [place], [address], 05/23/2017 17:03:45 05/23/20 17 05/23/2017 magne sium, blood calcium, serum 9.0 Not Available [facility] [address], [address], [place], [address], 05/23/2017 17:03:45 05/23/20 17 05/23/2017 magne sium, blood glucose, serum 101 Not Available [facility] [address], [address], [place], [address], 05/23/2017 17:03:45 05/23/20 17 05/23/2017 magne sium, blood BUN 24 Not Available [facility] [address], [address], [place], [address], 05/23/2017 17:03:45 05/23/20 17 05/23/2017 magne sium, blood creatinine 1.60 Not Available [facility] [address], [address], [place], [address], 05/23/2017 17:03:45 05/23/20 17 05/23/2017 magne sium, blood GFR 44 Not Available [facility] [address] [facility] [address], [address], [place], [address], 05/23/2017 17:03:45 05/23/20 17 05/23/2017 magne sium, blood bilirubin, total 0.5 Not Available [facility] [address] [facility] [address], [address], [place], [address], 05/23/2017 17:03:45 05/23/20 17 05/23/2017 magne sium, blood alkaline phosphatase 43 Not Available [facility] [address] [facility] [address], [address], [place], [address], 05/23/2017 17:03:45 05/23/20 17 05/23/2017 magne sium, blood albumin, serum 4.1 Not Available [facility] [address] [facility] [address], [address], [place], [address], 05/23/2017 17:03:45 05/23/20 17 05/23/2017 magne sium, blood protein, total, serum 7.0 Not Available [facility] [address] [facility] [address], [address], [place], [address], 05/23/2017 17:03:45 05/23/20 17 05/23/2017 magne sium, blood magnesium 1.8 Not Available [facility] [address] [facility] [address], [address], [place], [address], 05/23/2017 17:03:45 05/23/20 17 05/23/2017 magne sium, blood phosphorus 2.8 Not Available [facility] [address] [facility] [address], [address], [place], [address], 05/23/2017 17:03:45 05/23/20 17 05/23/2017 magne sium, blood uric acid 6.1 Not Available [facility] [address] [facility] [address], [address], [place], [address], 05/23/2017 17:03:45 05/23/20 17 05/23/2017 magne sium, blood PSA, total 0.762 Not Available [facility] [address] [facility] [address], [address], [place], [address], 05/23/2017 17:03:45 05/23/20 17 05/23/2017 CMP, serum or plasm a color, urine straw Not Available [facility] [address] [facility] [address], [address], [place], [address], 05/23/2017 17:03:45 05/23/20 17 05/23/2017 CMP, serum or plasm a clarity, urine clear Not Available [facility] [address] [facility] [address], [address], [place], [address], 05/23/2017 17:03:45 05/23/20 17 05/23/2017 CMP, serum or plasm a pH, urine 1.006 Not Available [facility] [address] [facility] [address], [address], [place], [address], 05/23/2017 17:03:45 05/23/20 17 05/23/2017 CMP, serum or plasm a protein, urine negati ve Not Available [facility] [address] [facility] [address], [address], [place], [address], 05/23/2017 17:03:45 05/23/20 17 05/23/2017 CMP, serum or plasm a glucose, urine negati ve Not Available [facility] [address] [facility] [address], [address], [place], [address], 05/23/2017 17:03:45 05/23/20 17 05/23/2017 CMP, serum or plasm a ketones, urine negati ve Not Available [facility] [address] [facility] [address], [address], [place], [address], 05/23/2017 17:03:45 05/23/20 17 05/23/2017 CMP, serum or plasm a bilirubin, urine negati ve Not Available [facility] [address] [facility] [address], [address], [place], [address], 05/23/2017 17:03:45 05/23/20 17 05/23/2017 CMP, serum or plasm a blood, urine negati ve Not Available [facility] [address] [facility] [address], [address], [place], [address], 05/23/2017 17:03:45 05/23/20 17 05/23/2017 CMP, serum or plasm a nitrite, urine negati ve Not Available [facility] [address] [facility] [address], [address], [place], [address], 05/23/2017 17:03:45 05/23/20 17 05/23/2017 CMP, serum or plasm a leukocyte esterase negati ve Not Available [facility] [address] [facility] [address], [address], [place], [address], 05/23/2017 17:03:45 05/23/20 17 05/23/2017 CMP, serum or plasm a urobilinogen , urine <2.0 Not Available [facility] [address] [facility] [address], [place], [address], 05/23/2017 17:03:45 05/23/20 17 05/23/2017 CMP, serum or plasm a protein, urine, random 9.8 Not Available [facility] [address] [facility] [address], [address], [place], [address], 05/23/2017 17:03:45 05/23/20 17 05/23/2017 CMP, serum or plasm a creatinine, urine, random 24.9 Not Available [facility] [address] [facility] [address], [address], [place], [address], 05/23/2017 17:03:45 05/23/20 17 05/23/2017 CMP, serum or plasm a HGB 14.7 Not Available [facility] [address] [facility] [address], [address], [place], [address], 05/23/2017 17:03:45 05/23/20 17 05/23/2017 CMP, serum or plasm a HCT 44.5 Not Available [facility] [address] [facility] [address], [address], [place], [address], 05/23/2017 17:03:45 05/23/20 17 05/23/2017 CMP, serum or plasm a WBC 4.5 Not Available [facility] [address] [facility] [address], [address], [place], [address], 05/23/2017 17:03:45 05/23/20 17 05/23/2017 CMP, serum or plasm a plt 212 Not Available [facility] [address] [facility] [address], [address], [place], [address], 05/23/2017 17:03:45 05/23/20 17 05/23/2017 CMP, serum or plasm a sodium, serum 137 Not Available [facility] [address] [facility] [address], [address], [place], [address], 05/23/2017 17:03:45 05/23/20 17 05/23/2017 CMP, serum or plasm a potassium, serum 3.5 Not Available [facility] [address] [facility] [address], [place], [address], 05/23/2017 17:03:45 05/23/20 17 05/23/2017 CMP, serum or plasm a chloride, serum 99 Not Available [facility] [address] [facility] [address], [address], [place], [address], 05/23/2017 17:03:45 05/23/20 17 05/23/2017 CMP, serum or plasm a carbon dioxide 27 Not Available [facility] [address] [facility] [address], [place], [address], 05/23/2017 17:03:45 05/23/20 17 05/23/2017 CMP, serum or plasm a calcium, serum 9.0 Not Available [facility] [address] [facility] [address], [place], [address], 05/23/2017 17:03:45 05/23/20 17 05/23/2017 CMP, serum or plasm a glucose, serum 101 Not Available [facility] [address] [facility] [address], [place], [address], 05/23/2017 17:03:45 05/23/20 17 05/23/2017 CMP, serum or plasm a BUN 24 Not Available [facility] [address] [facility] [address], [place], [address], 05/23/2017 17:03:45 05/23/20 17 05/23/2017 CMP, serum or plasm a creatinine 1.60 Not Available [facility] [address] [facility] [address], [place], [address], 05/23/2017 17:03:45 05/23/20 17 05/23/2017 CMP, serum or plasm a GFR 44 Not Available [facility] [address] [facility] [address], [place], [address], 05/23/2017 17:03:45 05/23/20 17 05/23/2017 CMP, serum or plasm a bilirubin, total 0.5 Not Available [address], [place], [address], 05/23/2017 17:03:45 05/23/20 17 05/23/2017 CMP, serum or plasm a alkaline phosphatase 43 Not Available [address], [address], [place], [address], 05/23/2017 17:03:45 05/23/20 17 05/23/2017 CMP, serum or plasm a albumin, serum 4.1 Not Available [address], [place], [address], 05/23/2017 17:03:45 05/23/20 17 05/23/2017 CMP, serum or plasm a protein, total, serum 7.0 Not Available [address], [place], [address], 05/23/2017 17:03:45 05/23/20 17 05/23/2017 CMP, serum or plasm a magnesium 1.8 Not Available [address], [place], [address], 05/23/2017 17:03:45 05/23/20 17 05/23/2017 CMP, serum or plasm a phosphorus 2.8 Not Available [address], [address], [place], [address], 05/23/2017 17:03:45 05/23/20 17 05/23/2017 CMP, serum or plasm a uric acid 6.1 Not Available [facility] [address] [facility] [address], [place], [address], 05/23/2017 17:03:45 05/23/20 17 05/23/2017 CMP, serum or plasm a PSA, total 0.762 Not Available [facility] [address] [facility] [address], [address], [place], [address], 05/23/2017 17:03:45 05/23/20 17 05/23/2017 CBC w/ auto diff color, urine straw Not Available [facility] [address], [place], [address], 05/23/2017 17:03:45 05/23/20 17 05/23/2017 CBC w/ auto diff clarity, urine clear Not Available [facility] [address], [place], [address], 05/23/2017 17:03:45 05/23/20 17 05/23/2017 CBC w/ auto diff pH, urine 1.006 Not Available [facility] [address], [address], [place], [address], 05/23/2017 17:03:45 05/23/20 17 05/23/2017 CBC w/ auto diff protein, urine negati ve Not Available [facility] [address], [address], [place], [address], 05/23/2017 17:03:45 05/23/20 17 05/23/2017 CBC w/ auto diff glucose, urine negati ve Not Available [facility] [address], [address], [place], [address], 05/23/2017 17:03:45 05/23/20 17 05/23/2017 CBC w/ auto diff ketones, urine negati ve Not Available [facility] [address], [address], [place], [address], 05/23/2017 17:03:45 05/23/20 17 05/23/2017 CBC w/ auto diff bilirubin, urine negati ve Not Available [facility] [address], [address], [place], [address], 05/23/2017 17:03:45 05/23/20 17 05/23/2017 CBC w/ auto diff blood, urine negati ve Not Available [facility] [address] [facility] [address], [address], [place], [address], 05/23/2017 17:03:45 05/23/20 17 05/23/2017 CBC w/ auto diff nitrite, urine negati ve Not Available [facility] [address], [address], [place], [address], 05/23/2017 17:03:45 05/23/20 17 05/23/2017 CBC w/ auto diff leukocyte esterase negati ve Not Available [facility] [address], [address], [place], [address], 05/23/2017 17:03:45 05/23/20 17 05/23/2017 CBC w/ auto diff urobilinogen , urine <2.0 Not Available [facility] [address], [address], [place], [address], 05/23/2017 17:03:45 05/23/20 17 05/23/2017 CBC w/ auto diff protein, urine, random 9.8 Not Available [facility] [address], [address], [place], [address], 05/23/2017 17:03:45 05/23/20 17 05/23/2017 CBC w/ auto diff creatinine, urine, random 24.9 Not Available [facility] [address], [address], [place], [address], 05/23/2017 17:03:45 05/23/20 17 05/23/2017 CBC w/ auto diff HGB 14.7 Not Available [facility] [address], [address], [place], [address], 05/23/2017 17:03:45 05/23/20 17 05/23/2017 CBC w/ auto diff HCT 44.5 Not Available [facility] [address] [facility] [address], [address], [place], [address], 05/23/2017 17:03:45 05/23/20 17 05/23/2017 CBC w/ auto diff WBC 4.5 Not Available [facility] [address] [facility] [address], [address], [place], [address], 05/23/2017 17:03:45 05/23/20 17 05/23/2017 CBC w/ auto diff plt 212 Not Available [facility] [address] [facility] [address], [address], [place], [address], 05/23/2017 17:03:45 05/23/20 17 05/23/2017 CBC w/ auto diff sodium, serum 137 Not Available [facility] [address] [facility] [address], [address], [place], [address], 05/23/2017 17:03:45 05/23/20 17 05/23/2017 CBC w/ auto diff potassium, serum 3.5 Not Available [facility] [address] [facility] [address], [address], [place], [address], 05/23/2017 17:03:45 05/23/20 17 05/23/2017 CBC w/ auto diff chloride, serum 99 Not Available [facility] [address] [facility] [address], [address], [place], [address], 05/23/2017 17:03:45 05/23/20 17 05/23/2017 CBC w/ auto diff carbon dioxide 27 Not Available [facility] [address] [facility] [address], [address], [place], [address], 05/23/2017 17:03:45 05/23/20 17 05/23/2017 CBC w/ auto diff calcium, serum 9.0 Not Available [facility] [address] [facility] [address], [address], [place], [address], 05/23/2017 17:03:45 05/23/20 17 05/23/2017 CBC w/ auto diff glucose, serum 101 Not Available [facility] [address], [place], [address], 05/23/2017 17:03:45 05/23/20 17 05/23/2017 CBC w/ auto diff BUN 24 Not Available [facility] [address] [facility] [address], [address], [place], [address], 05/23/2017 17:03:45 05/23/20 17 05/23/2017 CBC w/ auto diff creatinine 1.60 Not Available [facility] [address] [facility] [address], [address], [place], [address], 05/23/2017 17:03:45 05/23/20 17 05/23/2017 CBC w/ auto diff GFR 44 Not Available [facility] [address] [facility] [address], [address], [place], [address], 05/23/2017 17:03:45 05/23/20 17 05/23/2017 CBC w/ auto diff bilirubin, total 0.5 Not Available [facility] [address] [facility] [address], [address], [place], [address], 05/23/2017 17:03:45 05/23/20 17 05/23/2017 CBC w/ auto diff alkaline phosphatase 43 Not Available [facility] [address] [facility] [address], [address], [place], [address], 05/23/2017 17:03:45 05/23/20 17 05/23/2017 CBC w/ auto diff albumin, serum 4.1 Not Available [facility] [address] [facility] [address], [address], [place], [address], 05/23/2017 17:03:45 05/23/20 17 05/23/2017 CBC w/ auto diff protein, total, serum 7.0 Not Available [facility] [address] [facility] [address], [address], [place], [address], 05/23/2017 17:03:45 05/23/20 17 05/23/2017 CBC w/ auto diff magnesium 1.8 Not Available [facility] [address] [facility] [address], [address], [place], [address], 05/23/2017 17:03:45 05/23/20 17 05/23/2017 CBC w/ auto diff phosphorus 2.8 Not Available [address], [address], [place], [address], 05/23/2017 17:03:45 05/23/20 17 05/23/2017 CBC w/ auto diff uric acid 6.1 Not Available [facility] [address] [facility] [address], [address], [place], [address], 05/23/2017 17:03:45 05/23/20 17 05/23/2017 CBC w/ auto diff PSA, total 0.762 Not Available [address], [address], [place], [address], 05/23/2017 17:03:45 05/23/20 17 05/23/2017 prote in:cr eatin ine ratio , urine color, urine straw Not Available [facility] [address], [address], [place], [address], 05/23/2017 17:03:44 05/23/20 17 05/23/2017 prote in:cr eatin ine ratio , urine clarity, urine clear Not Available [facility] [address] [facility] [address], [address], [place], [address], 05/23/2017 17:03:44 05/23/20 17 05/23/2017 prote in:cr eatin ine ratio , urine pH, urine 1.006 Not Available [facility] [address] [facility] [address], [address], [place], [address], 05/23/2017 17:03:44 05/23/20 17 05/23/2017 prote in:cr eatin ine ratio , urine protein, urine negati ve Not Available [facility] [address] [facility] [address], [address], [place], [address], 05/23/2017 17:03:44 05/23/20 17 05/23/2017 prote in:cr eatin ine ratio , urine glucose, urine negati ve Not Available [facility] [address] [facility] [address], [address], [place], [address], 05/23/2017 17:03:44 05/23/20 17 05/23/2017 prote in:cr eatin ine ratio , urine ketones, urine negati ve Not Available [facility] [address] [facility] [address], [address], [place], [address], 05/23/2017 17:03:44 05/23/20 17 05/23/2017 prote in:cr eatin ine ratio , urine bilirubin, urine negati ve Not Available [facility] [address] [facility] [address], [address], [place], [address], 05/23/2017 17:03:44 05/23/20 17 05/23/2017 prote in:cr eatin ine ratio , urine blood, urine negati ve Not Available [facility] [address] [facility] [address], [address], [place], [address], 05/23/2017 17:03:44 05/23/20 17 05/23/2017 prote in:cr eatin ine ratio , urine nitrite, urine negati ve Not Available [facility] [address] [facility] [address], [address], [place], [address], 05/23/2017 17:03:44 05/23/20 17 05/23/2017 prote in:cr eatin ine ratio , urine leukocyte esterase negati ve Not Available [facility] [address] [facility] [address], [address], [place], [address], 05/23/2017 17:03:44 05/23/20 17 05/23/2017 prote in:cr eatin ine ratio , urine urobilinogen , urine <2.0 Not Available [facility] [address] [facility] [address], [address], [place], [address], 05/23/2017 17:03:44 05/23/20 17 05/23/2017 prote in:cr eatin ine ratio , urine protein, urine, random 9.8 Not Available [facility] [address], [address], [place], [address], 05/23/2017 17:03:44 05/23/20 17 05/23/2017 prote in:cr eatin ine ratio , urine creatinine, urine, random 24.9 Not Available [facility] [address], [address], [place], [address], 05/23/2017 17:03:44 05/23/20 17 05/23/2017 prote in:cr eatin ine ratio , urine HGB 14.7 Not Available [facility] [address], [address], [place], [address], 05/23/2017 17:03:44 05/23/20 17 05/23/2017 prote in:cr eatin ine ratio , urine HCT 44.5 Not Available [facility] [address] [facility] [address], [place], [address], 05/23/2017 17:03:44 05/23/20 17 05/23/2017 prote in:cr eatin ine ratio , urine WBC 4.5 Not Available [facility] [address], [address], [place], [address], 05/23/2017 17:03:44 05/23/20 17 05/23/2017 prote in:cr eatin ine ratio , urine plt 212 Not Available [facility] [address], [address], [place], [address], 05/23/2017 17:03:44 05/23/20 17 05/23/2017 prote in:cr eatin ine ratio , urine sodium, serum 137 Not Available [facility] [address], [address], [place], [address], 05/23/2017 17:03:44 05/23/20 17 05/23/2017 prote in:cr eatin ine ratio , urine potassium, serum 3.5 Not Available [facility] [address], [address], [place], [address], 05/23/2017 17:03:44 05/23/20 17 05/23/2017 prote in:cr eatin ine ratio , urine chloride, serum 99 Not Available [facility] [address], [address], [place], [address], 05/23/2017 17:03:44 05/23/20 17 05/23/2017 prote in:cr eatin ine ratio , urine carbon dioxide 27 Not Available [facility] [address], [address], [place], [address], 05/23/2017 17:03:44 05/23/20 17 05/23/2017 prote in:cr eatin ine ratio , urine calcium, serum 9.0 Not Available [facility] [address] [facility] [address], [address], [place], [address], 05/23/2017 17:03:44 05/23/20 17 05/23/2017 prote in:cr eatin ine ratio , urine glucose, serum 101 Not Available [facility] [address] [facility] [address], [address], [place], [address], 05/23/2017 17:03:44 05/23/20 17 05/23/2017 prote in:cr eatin ine ratio , urine BUN 24 Not Available [facility] [address] [facility] [address], [address], [place], [address], 05/23/2017 17:03:44 05/23/20 17 05/23/2017 prote in:cr eatin ine ratio , urine creatinine 1.60 Not Available [facility] [address] [facility] [address], [address], [place], [address], 05/23/2017 17:03:44 05/23/20 17 05/23/2017 prote in:cr eatin ine ratio , urine GFR 44 Not Available [facility] [address] [facility] [address], [address], [place], [address], 05/23/2017 17:03:44 05/23/20 17 05/23/2017 prote in:cr eatin ine ratio , urine bilirubin, total 0.5 Not Available [facility] [address] [facility] [address], [address], [place], [address], 05/23/2017 17:03:44 05/23/20 17 05/23/2017 prote in:cr eatin ine ratio , urine alkaline phosphatase 43 Not Available [facility] [address] [facility] [address], [address], [place], [address], 05/23/2017 17:03:44 05/23/20 17 05/23/2017 prote in:cr eatin ine ratio , urine albumin, serum 4.1 Not Available [facility] [address] [facility] [address], [address], [place], [address], 05/23/2017 17:03:44 05/23/20 17 05/23/2017 prote in:cr eatin ine ratio , urine protein, total, serum 7.0 Not Available [facility] [address] [facility] [address], [address], [place], [address], 05/23/2017 17:03:44 05/23/20 17 05/23/2017 prote in:cr eatin ine ratio , urine magnesium 1.8 Not Available [facility] [address] [facility] [address], [address], [place], [address], 05/23/2017 17:03:44 05/23/20 17 05/23/2017 prote in:cr eatin ine ratio , urine phosphorus 2.8 Not Available [facility] [address] [facility] [address], [address], [place], [address], 05/23/2017 17:03:44 05/23/20 17 05/23/2017 prote in:cr eatin ine ratio , urine uric acid 6.1 Not Available [facility] [address] [facility] [address], [address], [place], [address], 05/23/2017 17:03:44 05/23/20 17 05/23/2017 prote in:cr eatin ine ratio , urine PSA, total 0.762 Not Available [facility] [address] [facility] [address], [address], [place], [address], 05/23/2017 17:03:44 05/23/20 17 05/23/2017 urina lysis , dipst ick, refle x micro color, urine straw Not Available [facility] [address] [facility] [address], [address], [place], [address], 05/23/2017 15:47:58 05/23/20 17 05/23/2017 urina lysis , dipst ick, refle x micro clarity, urine clear Not Available [facility] [address] [place], [place] [address]za [facility] [address], [address], [place], [address], 05/23/2017 15:47:58 05/23/20 17 05/23/2017 urina lysis , dipst ick, refle x micro pH, urine 1.006 Not Available [facility] [address] [place] [address] [address], [address], [place], [address], 05/23/2017 15:47:58 05/23/20 17 05/23/2017 urina lysis , dipst ick, refle x micro protein, urine negati ve Not Available [address], [address], [place], [address], 05/23/2017 15:47:58 05/23/20 17 05/23/2017 urina lysis , dipst ick, refle x micro glucose, urine negati ve Not Available [facility] [address] [place] [address] [address], [address], [place], [address], 05/23/2017 15:47:58 05/23/20 17 05/23/2017 urina lysis , dipst ick, refle x micro ketones, urine negati ve Not Available [facility] [address] [place] [address] [address], [address], [place], [address], 05/23/2017 15:47:58 05/23/20 17 05/23/2017 urina lysis , dipst ick, refle x micro bilirubin, urine negati ve Not Available [facility] [address] [place] [address] [address], [address], [place], [address], 05/23/2017 15:47:58 05/23/20 17 05/23/2017 urina lysis , dipst ick, refle x micro blood, urine negati ve Not Available [facility] [address] [facility] [address], [place], [address], 05/23/2017 15:47:58 05/23/20 17 05/23/2017 urina lysis , dipst ick, refle x micro nitrite, urine negati ve Not Available [facility] [address] [facility] [address], [place], [address], 05/23/2017 15:47:58 05/23/20 17 05/23/2017 urina lysis , dipst ick, refle x micro leukocyte esterase negati ve Not Available [facility] [address], [address], [place], [address], 05/23/2017 15:47:58 05/23/20 17 05/23/2017 urina lysis , dipst ick, refle x micro urobilinogen , urine <2.0 Not Available [facility] [address] [facility] [address], [place], [address], 05/23/2017 15:47:58 05/23/20 17 05/23/2017 urina lysis , dipst ick, refle x micro protein, urine, random 9.8 Not Available [facility] [address] [facility] [address], [place], [address], 05/23/2017 15:47:58 05/23/20 17 05/23/2017 urina lysis , dipst ick, refle x micro creatinine, urine, random 24.9 Not Available [facility] [address] [facility] [address], [address], [place], [address], 05/23/2017 15:47:58 05/23/20 17 05/23/2017 urina lysis , dipst ick, refle x micro HGB 14.7 Not Available [facility] [address] [facility] [address], [place], [address], 05/23/2017 15:47:58 05/23/20 17 05/23/2017 urina lysis , dipst ick, refle x micro HCT 44.5 Not Available [facility] [address], [address], [place], [address], 05/23/2017 15:47:58 05/23/20 17 05/23/2017 urina lysis , dipst ick, refle x micro WBC 4.5 Not Available [facility] [address] [facility] [address], [address], [place], [address], 05/23/2017 15:47:58 05/23/20 17 05/23/2017 urina lysis , dipst ick, refle x micro plt 212 Not Available [facility] [address] [facility] [address], [address], [place], [address], 05/23/2017 15:47:58 05/23/20 17 05/23/2017 urina lysis , dipst ick, refle x micro sodium, serum 137 Not Available [facility] [address], [address], [place], [address], 05/23/2017 15:47:58 05/23/20 17 05/23/2017 urina lysis , dipst ick, refle x micro potassium, serum 3.5 Not Available [facility] [address], [address], [place], [address], 05/23/2017 15:47:58 05/23/20 17 05/23/2017 urina lysis , dipst ick, refle x micro chloride, serum 99 Not Available [facility] [address], [address], [place], [address], 05/23/2017 15:47:58 05/23/20 17 05/23/2017 urina lysis , dipst ick, refle x micro carbon dioxide 27 Not Available [facility] [address] [facility] [address], [address], [place], [address], 05/23/2017 15:47:58 05/23/20 17 05/23/2017 urina lysis , dipst ick, refle x micro calcium, serum 9.0 Not Available [facility] [address] [facility] [address], [address], [place], [address], 05/23/2017 15:47:58 05/23/20 17 05/23/2017 urina lysis , dipst ick, refle x micro glucose, serum 101 Not Available [facility] [address] [facility] [address], [address], [place], [address], 05/23/2017 15:47:58 05/23/20 17 05/23/2017 urina lysis , dipst ick, refle x micro BUN 24 Not Available [facility] [address] [facility] [address], [address], [place], [address], 05/23/2017 15:47:58 05/23/20 17 05/23/2017 urina lysis , dipst ick, refle x micro creatinine 1.60 Not Available [facility] [address] [facility] [address], [address], [place], [address], 05/23/2017 15:47:58 05/23/20 17 05/23/2017 urina lysis , dipst ick, refle x micro GFR 44 Not Available [facility] [address] [facility] [address], [address], [place], [address], 05/23/2017 15:47:58 05/23/20 17 05/23/2017 urina lysis , dipst ick, refle x micro bilirubin, total 0.5 Not Available [facility] [address] [facility] [address], [place], [address], 05/23/2017 15:47:58 05/23/20 17 05/23/2017 urina lysis , dipst ick, refle x micro alkaline phosphatase 43 Not Available [facility] [address] [place], [place] [address]za [facility] [address], [address], [place], [address], 05/23/2017 15:47:58 05/23/20 17 05/23/2017 urina lysis , dipst ick, refle x micro albumin, serum 4.1 Not Available [address] [facility] [address], [address], [place], [address], 05/23/2017 15:47:58 05/23/20 17 05/23/2017 urina lysis , dipst ick, refle x micro protein, total, serum 7.0 Not Available [address] [facility] [address], [address], [place], [address], 05/23/2017 15:47:58 05/23/20 17 05/23/2017 urina lysis , dipst ick, refle x micro magnesium 1.8 Not Available [address] [facility] [address], [address], [place], [address], 05/23/2017 15:47:58 05/23/20 17 05/23/2017 urina lysis , dipst ick, refle x micro phosphorus 2.8 Not Available [address] [facility] [address], [address], [place], [address], 05/23/2017 15:47:58 05/23/20 17 05/23/2017 urina lysis , dipst ick, refle x micro uric acid 6.1 Not Available [address] [facility] [address], [address], [place], [address], 05/23/2017 15:47:58 05/23/20 17 05/23/2017 urina lysis , dipst ick, refle x micro PSA, total 0.762 Not Available [facility] [address] [facility] [address], [place], [address], 05/23/2017 15:47:58 11/16/19 18 11/15/2017 urina lysis , dipst ick, refle x micro color, urine light, yellow Not Available [facility] [address], [place], [address], 11/18/2017 15:55:55 11/16/19 18 11/15/2017 urina lysis , dipst ick, refle x micro clarity, urine clear Not Available [facility] [address] [facility] [address], [place], [address], 11/18/2017 15:55:55 11/16/19 18 11/15/2017 urina lysis , dipst ick, refle x micro pH, urine 6.0 Not Available [facility] [address] [facility] [address], [place], [address], 11/18/2017 15:55:55 11/16/19 18 11/15/2017 urina lysis , dipst ick, refle x micro specific gravity, urine 1.010 Not Available [facility] [address] [facility] [address], [place], [address], 11/18/2017 15:55:55 11/16/19 18 11/15/2017 urina lysis , dipst ick, refle x micro protein, total, urine 30 Not Available [facility] [address] [facility] [address], [place], [address], 11/18/2017 15:55:55 11/16/19 18 11/15/2017 urina lysis , dipst ick, refle x micro glucose, urine negati ve Not Available [facility] [address], [place], [address], 11/18/2017 15:55:55 11/16/19 18 11/15/2017 urina lysis , dipst ick, refle x micro ketones, urine negati ve Not Available [facility] [address] [facility] [address], [place], [address], 11/18/2017 15:55:55 11/16/19 18 11/15/2017 urina lysis , dipst ick, refle x micro bilirubin, urine negati ve Not Available [facility] [address] [facility] [address], [place], [address], 11/18/2017 15:55:55 11/16/19 18 11/15/2017 urina lysis , dipst ick, refle x micro blood, urine negati ve Not Available [facility] [address] [facility] [address], [place], [address], 11/18/2017 15:55:55 11/16/19 18 11/15/2017 urina lysis , dipst ick, refle x micro nitrite, urine negati ve Not Available [facility] [address] [facility] [address], [place], [address], 11/18/2017 15:55:55 11/16/19 18 11/15/2017 urina lysis , dipst ick, refle x micro leukocyte esterase, urine negati ve Not Available [facility] [address] [facility] [address], [place], [address], 11/18/2017 15:55:55 11/16/19 18 11/15/2017 urina lysis , dipst ick, refle x micro urobilinogen , urine <2.0 Not Available [facility] [address], [place], [address], 11/18/2017 15:55:55 11/16/19 18 11/15/2017 urina lysis , dipst ick, refle x micro WBC casts, urine <1 Not Available [facility] 61 [facility] [address], [address], [place], [address], 11/18/2017 15:55:55 11/16/19 18 11/15/2017 urina lysis , dipst ick, refle x micro red blood cells, urine 0 Not Available [facility] 61 [facility] [address], [address], [place], [address], 11/18/2017 15:55:55 11/16/19 18 11/15/2017 urina lysis , dipst ick, refle x micro epithelial cells, urine <1 Not Available [facility] 61 [facility] [address], [address], [place], [address], 11/18/2017 15:55:55 11/16/19 18 11/15/2017 urina lysis , dipst ick, refle x micro protein, urine, random 10.1 Not Available [facility] 61 [facility] [address], [address], [place], [address], 11/18/2017 15:55:55 11/16/19 18 11/15/2017 urina lysis , dipst ick, refle x micro creatinine, urine, random 48.7 Not Available [facility] 61 [facility] [address], [address], [place], [address], 11/18/2017 15:55:55 11/16/19 18 11/15/2017 urina lysis , dipst ick, refle x micro HGB 15.3 Not Available [facility] [address] [facility] [address], [address], [place], [address], 11/18/2017 15:55:55 11/16/19 18 11/15/2017 urina lysis , dipst ick, refle x micro HCT 44.1 Not Available [facility] [address], [address], [place], [address], 11/18/2017 15:55:55 11/16/19 18 11/15/2017 urina lysis , dipst ick, refle x micro WBC 6.6 Not Available [facility] 61 [facility] [address], [address], [place], [address], 11/18/2017 15:55:55 11/16/19 18 11/15/2017 urina lysis , dipst ick, refle x micro plt 275 Not Available [facility] [address] [facility] [address], [address], [place], [address], 11/18/2017 15:55:55 11/16/19 18 11/15/2017 urina lysis , dipst ick, refle x micro sodium, serum 137 Not Available [facility] 61 [facility] [address], [address], [place], [address], 11/18/2017 15:55:55 11/16/19 18 11/15/2017 urina lysis , dipst ick, refle x micro potassium, seerum 4.0 Not Available [facility] [address], [address], [place], [address], 11/18/2017 15:55:55 11/16/19 18 11/15/2017 urina lysis , dipst ick, refle x micro chloride, serum 96 Not Available [facility] 61 [facility] [address], [address], [place], [address], 11/18/2017 15:55:55 11/16/19 18 11/15/2017 urina lysis , dipst ick, refle x micro carbon dioxide 27 Not Available [facility] 61 [facility] [address], [address], [place], [address], 11/18/2017 15:55:55 11/16/19 18 11/15/2017 urina lysis , dipst ick, refle x micro calcium, serum 9.5 Not Available [facility] 61 [facility] [address], [address], [place], [address], 11/18/2017 15:55:55 11/16/19 18 11/15/2017 urina lysis , dipst ick, refle x micro glucose, serum 92 Not Available [facility] [address] [facility] [address], [address], [place], [address], 11/18/2017 15:55:55 11/16/19 18 11/15/2017 urina lysis , dipst ick, refle x micro BUN 27 Not Available [facility] [address] [facility] [address], [address], [place], [address], 11/18/2017 15:55:55 11/16/19 18 11/15/2017 urina lysis , dipst ick, refle x micro creatinine 1.63 Not Available [facility] [address] [facility] [address], [address], [place], [address], 11/18/2017 15:55:55 11/16/19 18 11/15/2017 urina lysis , dipst ick, refle x micro GFR 43 Not Available [facility] [address] [facility] [address], [address], [place], [address], 11/18/2017 15:55:55 11/16/19 18 11/15/2017 urina lysis , dipst ick, refle x micro bilirubin, total 0.6 Not Available [facility] [address] [facility] [address], [address], [place], [address], 11/18/2017 15:55:55 11/16/19 18 11/15/2017 urina lysis , dipst ick, refle x micro albumin, serum 4.5 Not Available [facility] 61 [facility] [address], [address], [place], [address], 11/18/2017 15:55:55 11/16/19 18 11/15/2017 urina lysis , dipst ick, refle x micro protein, total, serum 7.5 Not Available [address], [address], [place], [address], 11/18/2017 15:55:55 11/16/19 18 11/15/2017 urina lysis , dipst ick, refle x micro magnesium 1.8 Not Available [facility] [address], [address], [place], [address], 11/18/2017 15:55:55 11/16/19 18 11/15/2017 urina lysis , dipst ick, refle x micro phosphorus 3.6 Not Available [address] [facility] [address], [address], [place], [address], 11/18/2017 15:55:55 11/16/19 18 11/15/2017 urina lysis , dipst ick, refle x micro uric acid 5.6 Not Available [address], [address], [place], [address], 11/18/2017 15:55:55 11/16/19 18 11/15/2017 uric acid, serum or plasm a color, urine light, yellow Not Available [address] [facility] [address], [address], [place], [address], 11/19/2017 19:46:51 11/16/19 18 11/15/2017 uric acid, serum or plasm a clarity, urine clear Not Available [facility] [address] [facility] [address], [address], [place], [address], 11/19/2017 19:46:51 11/16/19 18 11/15/2017 uric acid, serum or plasm a pH, urine 6.0 Not Available [address], [address], [place], [address], 11/19/2017 19:46:51 11/16/19 18 11/15/2017 uric acid, serum or plasm a specific gravity, urine 1.010 Not Available [address], [address], [place], [address], 11/19/2017 19:46:51 11/16/19 18 11/15/2017 uric acid, serum or plasm a protein, total, urine 30 Not Available [address], [address], [place], [address], 11/19/2017 19:46:51 11/16/19 18 11/15/2017 uric acid, serum or plasm a glucose, urine negati ve Not Available [address], [address], [place], [address], 11/19/2017 19:46:51 11/16/19 18 11/15/2017 uric acid, serum or plasm a ketones, urine negati ve Not Available [address], [address], [place], [address], 11/19/2017 19:46:51 11/16/19 18 11/15/2017 uric acid, serum or plasm a bilirubin, urine negati ve Not Available [address], [address], [place], [address], 11/19/2017 19:46:51 11/16/19 18 11/15/2017 uric acid, serum or plasm a blood, urine negati ve Not Available [address], [address], [place], [address], 11/19/2017 19:46:51 11/16/19 18 11/15/2017 uric acid, serum or plasm a nitrite, urine negati ve Not Available [facility] [address], [address], [place], [address], 11/19/2017 19:46:51 11/16/19 18 11/15/2017 uric acid, serum or plasm a leukocyte esterase, urine negati ve Not Available [address], [place], [address], 11/19/2017 19:46:51 11/16/19 18 11/15/2017 uric acid, serum or plasm a urobilinogen , urine <2.0 Not Available [facility] [address] [facility] [address], [address], [place], [address], 11/19/2017 19:46:51 11/16/19 18 11/15/2017 uric acid, serum or plasm a WBC casts, urine <1 Not Available [address], [place], [address], 11/19/2017 19:46:51 11/16/19 18 11/15/2017 uric acid, serum or plasm a red blood cells, urine 0 Not Available [address], [place], [address], 11/19/2017 19:46:51 11/16/19 18 11/15/2017 uric acid, serum or plasm a epithelial cells, urine <1 Not Available [address], [place], [address], 11/19/2017 19:46:51 11/16/19 18 11/15/2017 uric acid, serum or plasm a protein, urine, random 10.1 Not Available [address], [place], [address], 11/19/2017 19:46:51 11/16/19 18 11/15/2017 uric acid, serum or plasm a creatinine, urine, random 48.7 Not Available [facility] 61 [facility] [address], [address], [place], [address], 11/19/2017 19:46:51 11/16/19 18 11/15/2017 uric acid, serum or plasm a HGB 15.3 Not Available [facility] 61 [facility] [address], [address], [place], [address], 11/19/2017 19:46:51 11/16/19 18 11/15/2017 uric acid, serum or plasm a HCT 44.1 Not Available [facility] 61 [facility] [address], [address], [place], [address], 11/19/2017 19:46:51 11/16/19 18 11/15/2017 uric acid, serum or plasm a WBC 6.6 Not Available [facility] 61 [facility] [address], [address], [place], [address], 11/19/2017 19:46:51 11/16/19 18 11/15/2017 uric acid, serum or plasm a plt 275 Not Available [facility] 61 [facility] [address], [address], [place], [address], 11/19/2017 19:46:51 11/16/19 18 11/15/2017 uric acid, serum or plasm a sodium, serum 137 Not Available [facility] 61 [facility] [address], [address], [place], [address], 11/19/2017 19:46:51 11/16/19 18 11/15/2017 uric acid, serum or plasm a potassium, seerum 4.0 Not Available [facility] 61 [facility] [address], [address], [place], [address], 11/19/2017 19:46:51 11/16/19 18 11/15/2017 uric acid, serum or plasm a chloride, serum 96 Not Available [facility] 61 [facility] [address], [address], [place], [address], 11/19/2017 19:46:51 11/16/19 18 11/15/2017 uric acid, serum or plasm a carbon dioxide 27 Not Available [facility] 61 [facility] [address], [address], [place], [address], 11/19/2017 19:46:51 11/16/19 18 11/15/2017 uric acid, serum or plasm a calcium, serum 9.5 Not Available [facility] [address] [facility] [address], [address], [place], [address], 11/19/2017 19:46:51 11/16/19 18 11/15/2017 uric acid, serum or plasm a glucose, serum 92 Not Available [facility] 61 [facility] [address], [address], [place], [address], 11/19/2017 19:46:51 11/16/19 18 11/15/2017 uric acid, serum or plasm a BUN 27 Not Available [facility] 61 [facility] [address], [address], [place], [address], 11/19/2017 19:46:51 11/16/19 18 11/15/2017 uric acid, serum or plasm a creatinine 1.63 Not Available [facility] 61 [facility] [address], [address], [place], [address], 11/19/2017 19:46:51 11/16/19 18 11/15/2017 uric acid, serum or plasm a GFR 43 Not Available [facility] 61 [facility] [address], [address], [place], [address], 11/19/2017 19:46:51 11/16/19 18 11/15/2017 uric acid, serum or plasm a bilirubin, total 0.6 Not Available [facility] 61 [facility] [address], [address], [place], [address], 11/19/2017 19:46:51 11/16/19 18 11/15/2017 uric acid, serum or plasm a albumin, serum 4.5 Not Available [facility] 61 [facility] [address], [address], [place], [address], 11/19/2017 19:46:51 11/16/19 18 11/15/2017 uric acid, serum or plasm a protein, total, serum 7.5 Not Available [facility] 61 [facility] [address], [address], [place], [address], 11/19/2017 19:46:51 11/16/19 18 11/15/2017 uric acid, serum or plasm a magnesium 1.8 Not Available [facility] 61 [facility] [address], [address], [place], [address], 11/19/2017 19:46:51 11/16/19 18 11/15/2017 uric acid, serum or plasm a phosphorus 3.6 Not Available [facility] 61 [facility] [address], [address], [place], [address], 11/19/2017 19:46:51 11/16/19 18 11/15/2017 uric acid, serum or plasm a uric acid 5.6 Not Available [facility] 61 [facility] [address], [address], [place], [address], 11/19/2017 19:46:51 11/16/19 18 11/15/2017 phosp horus , blood color, urine light, yellow Not Available [facility] 61 [facility] [address], [address], [place], [address], 11/19/2017 19:46:50 11/16/19 18 11/15/2017 phosp horus , blood clarity, urine clear Not Available [facility] 61 [facility] [address], [address], [place], [address], 11/19/2017 19:46:50 11/16/19 18 11/15/2017 phosp horus , blood pH, urine 6.0 Not Available [facility] 61 [facility] [address], [address], [place], [address], 11/19/2017 19:46:50 11/16/19 18 11/15/2017 phosp horus , blood specific gravity, urine 1.010 Not Available [facility] 61 [facility] [address], [address], [place], [address], 11/19/2017 19:46:50 11/16/19 18 11/15/2017 phosp horus , blood protein, total, urine 30 Not Available [facility] 61 [facility] [address], [address], [place], [address], 11/19/2017 19:46:50 11/16/19 18 11/15/2017 phosp horus , blood glucose, urine negati ve Not Available [facility] 61 [facility] [address], [address], [place], [address], 11/19/2017 19:46:50 11/16/19 18 11/15/2017 phosp horus , blood ketones, urine negati ve Not Available [facility] [address] [facility] [address], [address], [place], [address], 11/19/2017 19:46:50 11/16/19 18 11/15/2017 phosp horus , blood bilirubin, urine negati ve Not Available [facility] [address] [facility] [address], [address], [place], [address], 11/19/2017 19:46:50 11/16/19 18 11/15/2017 phosp horus , blood blood, urine negati ve Not Available [facility] 61 [facility] [address], [address], [place], [address], 11/19/2017 19:46:50 11/16/19 18 11/15/2017 phosp horus , blood nitrite, urine negati ve Not Available [facility] 61 [facility] [address], [address], [place], [address], 11/19/2017 19:46:50 11/16/19 18 11/15/2017 phosp horus , blood leukocyte esterase, urine negati ve Not Available [facility] [address] [facility] [address], [address], [place], [address], 11/19/2017 19:46:50 11/16/19 18 11/15/2017 phosp horus , blood urobilinogen , urine <2.0 Not Available [facility] 61 [facility] [address], [address], [place], [address], 11/19/2017 19:46:50 11/16/19 18 11/15/2017 phosp horus , blood WBC casts, urine <1 Not Available [facility] 61 [facility] [address], [address], [place], [address], 11/19/2017 19:46:50 11/16/19 18 11/15/2017 phosp horus , blood red blood cells, urine 0 Not Available [facility] [address] [facility] [address], [address], [place], [address], 11/19/2017 19:46:50 11/16/19 18 11/15/2017 phosp horus , blood epithelial cells, urine <1 Not Available [facility] [address] [facility] [address], [address], [place], [address], 11/19/2017 19:46:50 11/16/19 18 11/15/2017 phosp horus , blood protein, urine, random 10.1 Not Available [facility] [address] [facility] [address], [address], [place], [address], 11/19/2017 19:46:50 11/16/19 18 11/15/2017 phosp horus , blood creatinine, urine, random 48.7 Not Available [facility] [address] [facility] [address], [address], [place], [address], 11/19/2017 19:46:50 11/16/19 18 11/15/2017 phosp horus , blood HGB 15.3 Not Available [facility] [address] [facility] [address], [address], [place], [address], 11/19/2017 19:46:50 11/16/19 18 11/15/2017 phosp horus , blood HCT 44.1 Not Available [facility] [address] [facility] [address], [address], [place], [address], 11/19/2017 19:46:50 11/16/19 18 11/15/2017 phosp horus , blood WBC 6.6 Not Available [facility] [address] [facility] [address], [address], [place], [address], 11/19/2017 19:46:50 11/16/19 18 11/15/2017 phosp horus , blood plt 275 Not Available [facility] [address] [facility] [address], [address], [place], [address], 11/19/2017 19:46:50 11/16/19 18 11/15/2017 phosp horus , blood sodium, serum 137 Not Available [facility] [address] [facility] [address], [address], [place], [address], 11/19/2017 19:46:50 11/16/19 18 11/15/2017 phosp horus , blood potassium, seerum 4.0 Not Available [facility] [address] [facility] [address], [address], [place], [address], 11/19/2017 19:46:50 11/16/19 18 11/15/2017 phosp horus , blood chloride, serum 96 Not Available [facility] [address], [address], [place], [address], 11/19/2017 19:46:50 11/16/19 18 11/15/2017 phosp horus , blood carbon dioxide 27 Not Available [facility] [address], [address], [place], [address], 11/19/2017 19:46:50 11/16/19 18 11/15/2017 phosp horus , blood calcium, serum 9.5 Not Available [facility] [address] [facility] [address], [address], [place], [address], 11/19/2017 19:46:50 11/16/19 18 11/15/2017 phosp horus , blood glucose, serum 92 Not Available [facility] [address], [address], [place], [address], 11/19/2017 19:46:50 11/16/19 18 11/15/2017 phosp horus , blood BUN 27 Not Available [facility] [address], [address], [place], [address], 11/19/2017 19:46:50 11/16/19 18 11/15/2017 phosp horus , blood creatinine 1.63 Not Available [facility] [address], [address], [place], [address], 11/19/2017 19:46:50 11/16/19 18 11/15/2017 phosp horus , blood GFR 43 Not Available [facility] [address], [address], [place], [address], 11/19/2017 19:46:50 11/16/19 18 11/15/2017 phosp horus , blood bilirubin, total 0.6 Not Available [facility] 61 [facility] [address], [address], [place], [address], 11/19/2017 19:46:50 11/16/19 18 11/15/2017 phosp horus , blood albumin, serum 4.5 Not Available [facility] [address], [place], [address], 11/19/2017 19:46:50 11/16/19 18 11/15/2017 phosp horus , blood protein, total, serum 7.5 Not Available [facility] [address] [facility] [address], [address], [place], [address], 11/19/2017 19:46:50 11/16/19 18 11/15/2017 phosp horus , blood magnesium 1.8 Not Available [facility] [address] [facility] [address], [address], [place], [address], 11/19/2017 19:46:50 11/16/19 18 11/15/2017 phosp horus , blood phosphorus 3.6 Not Available [facility] [address] [facility] [address], [place], [address], 11/19/2017 19:46:50 11/16/19 18 11/15/2017 phosp horus , blood uric acid 5.6 Not Available [facility] [address] [facility] [address], [place], [address], 11/19/2017 19:46:50 11/16/19 18 11/15/2017 magne sium, blood color, urine light, yellow Not Available [facility] [address] [facility] [address], [place], [address], 11/19/2017 19:46:50 11/16/19 18 11/15/2017 magne sium, blood clarity, urine clear Not Available [facility] 61 [facility] [address], [address], [place], [address], 11/19/2017 19:46:50 11/16/19 18 11/15/2017 magne sium, blood pH, urine 6.0 Not Available [facility] [address] [facility] [address], [place], [address], 11/19/2017 19:46:50 11/16/19 18 11/15/2017 magne sium, blood specific gravity, urine 1.010 Not Available [facility] [address] [facility] [address], [address], [place], [address], 11/19/2017 19:46:50 11/16/19 18 11/15/2017 magne sium, blood protein, total, urine 30 Not Available [facility] [address] [facility] [address], [place], [address], 11/19/2017 19:46:50 11/16/19 18 11/15/2017 magne sium, blood glucose, urine negati ve Not Available [facility] [address] [facility] [address], [place], [address], 11/19/2017 19:46:50 11/16/19 18 11/15/2017 magne sium, blood ketones, urine negati ve Not Available [facility] [address] [facility] [address], [place], [address], 11/19/2017 19:46:50 11/16/19 18 11/15/2017 magne sium, blood bilirubin, urine negati ve Not Available [facility] [address] [facility] [address], [place], [address], 11/19/2017 19:46:50 11/16/19 18 11/15/2017 magne sium, blood blood, urine negati ve Not Available [facility] [address] [facility] [address], [address], [place], [address], 11/19/2017 19:46:50 11/16/19 18 11/15/2017 magne sium, blood nitrite, urine negati ve Not Available [facility] [address] [facility] [address], [place], [address], 11/19/2017 19:46:50 11/16/19 18 11/15/2017 magne sium, blood leukocyte esterase, urine negati ve Not Available [facility] [address] [facility] [address], [place], [address], 11/19/2017 19:46:50 11/16/19 18 11/15/2017 magne sium, blood urobilinogen , urine <2.0 Not Available [facility] [address] [facility] [address], [place], [address], 11/19/2017 19:46:50 11/16/19 18 11/15/2017 magne sium, blood WBC casts, urine <1 Not Available [facility] [address] [facility] [address], [place], [address], 11/19/2017 19:46:50 11/16/19 18 11/15/2017 magne sium, blood red blood cells, urine 0 Not Available [facility] [address] [facility] [address], [place], [address], 11/19/2017 19:46:50 11/16/19 18 11/15/2017 magne sium, blood epithelial cells, urine <1 Not Available [facility] [address] [facility] [address], [place], [address], 11/19/2017 19:46:50 11/16/19 18 11/15/2017 magne sium, blood protein, urine, random 10.1 Not Available [facility] [address] [facility] [address], [place], [address], 11/19/2017 19:46:50 11/16/19 18 11/15/2017 magne sium, blood creatinine, urine, random 48.7 Not Available [facility] [address] [facility] [address], [address], [place], [address], 11/19/2017 19:46:50 11/16/19 18 11/15/2017 magne sium, blood HGB 15.3 Not Available [facility] [address] [facility] [address], [address], [place], [address], 11/19/2017 19:46:50 11/16/19 18 11/15/2017 magne sium, blood HCT 44.1 Not Available [facility] [address] [facility] [address], [address], [place], [address], 11/19/2017 19:46:50 11/16/19 18 11/15/2017 magne sium, blood WBC 6.6 Not Available [facility] [address] [facility] [address], [address], [place], [address], 11/19/2017 19:46:50 11/16/19 18 11/15/2017 magne sium, blood plt 275 Not Available [facility] [address] [facility] [address], [address], [place], [address], 11/19/2017 19:46:50 11/16/19 18 11/15/2017 magne sium, blood sodium, serum 137 Not Available [facility] [address] [facility] [address], [address], [place], [address], 11/19/2017 19:46:50 11/16/19 18 11/15/2017 magne sium, blood potassium, seerum 4.0 Not Available [facility] [address] [facility] [address], [address], [place], [address], 11/19/2017 19:46:50 11/16/19 18 11/15/2017 magne sium, blood chloride, serum 96 Not Available [facility] [address] [facility] [address], [address], [place], [address], 11/19/2017 19:46:50 11/16/19 18 11/15/2017 magne sium, blood carbon dioxide 27 Not Available [facility] [address] [facility] [address], [address], [place], [address], 11/19/2017 19:46:50 11/16/19 18 11/15/2017 magne sium, blood calcium, serum 9.5 Not Available [facility] [address] [facility] [address], [address], [place], [address], 11/19/2017 19:46:50 11/16/19 18 11/15/2017 magne sium, blood glucose, serum 92 Not Available [facility] [address] [facility] [address], [address], [place], [address], 11/19/2017 19:46:50 11/16/19 18 11/15/2017 magne sium, blood BUN 27 Not Available [facility] [address] [facility] [address], [address], [place], [address], 11/19/2017 19:46:50 11/16/19 18 11/15/2017 magne sium, blood creatinine 1.63 Not Available [facility] [address] [facility] [address], [address], [place], [address], 11/19/2017 19:46:50 11/16/19 18 11/15/2017 magne sium, blood GFR 43 Not Available [facility], [place], [address], 11/19/2017 19:46:50 11/16/19 18 11/15/2017 magne sium, blood bilirubin, total 0.6 Not Available [facility] [address], [address], [place], [address], 11/19/2017 19:46:50 11/16/19 18 11/15/2017 magne sium, blood albumin, serum 4.5 Not Available [facility] [address], [address], [place], [address], 11/19/2017 19:46:50 11/16/19 18 11/15/2017 magne sium, blood protein, total, serum 7.5 Not Available [facility] [address], [address], [place], [address], 11/19/2017 19:46:50 11/16/19 18 11/15/2017 magne sium, blood magnesium 1.8 Not Available [facility] [address] [facility] [address], [address], [place], [address], 11/19/2017 19:46:50 11/16/19 18 11/15/2017 magne sium, blood phosphorus 3.6 Not Available [facility] [address], [address], [place], [address], 11/19/2017 19:46:50 11/16/19 18 11/15/2017 magne sium, blood uric acid 5.6 Not Available [facility] [address] [facility] [address], [address], [place], [address], 11/19/2017 19:46:50 11/16/19 18 11/15/2017 CMP, serum or plasm a color, urine light, yellow Not Available [address], [place], [address], 11/19/2017 19:46:50 11/16/19 18 11/15/2017 CMP, serum or plasm a clarity, urine clear Not Available [address], [address], [place], [address], 11/19/2017 19:46:50 11/16/19 18 11/15/2017 CMP, serum or plasm a pH, urine 6.0 Not Available [address], [address], [place], [address], 11/19/2017 19:46:50 11/16/19 18 11/15/2017 CMP, serum or plasm a specific gravity, urine 1.010 Not Available [address], [address], [place], [address], 11/19/2017 19:46:50 11/16/19 18 11/15/2017 CMP, serum or plasm a protein, total, urine 30 Not Available [address], [address], [place], [address], 11/19/2017 19:46:50 11/16/19 18 11/15/2017 CMP, serum or plasm a glucose, urine negati ve Not Available [facility] [address] [facility] [address], [address], [place], [address], 11/19/2017 19:46:50 11/16/19 18 11/15/2017 CMP, serum or plasm a ketones, urine negati ve Not Available [facility] [address] [facility] [address], [address], [place], [address], 11/19/2017 19:46:50 11/16/19 18 11/15/2017 CMP, serum or plasm a bilirubin, urine negati ve Not Available [facility] [address] [facility] [address], [address], [place], [address], 11/19/2017 19:46:50 11/16/19 18 11/15/2017 CMP, serum or plasm a blood, urine negati ve Not Available [facility] [address] [facility] [address], [address], [place], [address], 11/19/2017 19:46:50 11/16/19 18 11/15/2017 CMP, serum or plasm a nitrite, urine negati ve Not Available [facility] [address] [place], [place] [address]y [address], [address], [place], [address], 11/19/2017 19:46:50 11/16/19 18 11/15/2017 CMP, serum or plasm a leukocyte esterase, urine negati ve Not Available [address], [address], [place], [address], 11/19/2017 19:46:50 11/16/19 18 11/15/2017 CMP, serum or plasm a urobilinogen , urine <2.0 Not Available [address], [address], [place], [address], 11/19/2017 19:46:50 11/16/19 18 11/15/2017 CMP, serum or plasm a WBC casts, urine <1 Not Available [address], [address], [place], [address], 11/19/2017 19:46:50 11/16/19 18 11/15/2017 CMP, serum or plasm a red blood cells, urine 0 Not Available [facility] [address] [facility] [address], [address], [place], [address], 11/19/2017 19:46:50 11/16/19 18 11/15/2017 CMP, serum or plasm a epithelial cells, urine <1 Not Available [facility] [address] [facility] [address], [address], [place], [address], 11/19/2017 19:46:50 11/16/19 18 11/15/2017 CMP, serum or plasm a protein, urine, random 10.1 Not Available [facility] [address] [facility] [address], [address], [place], [address], 11/19/2017 19:46:50 11/16/19 18 11/15/2017 CMP, serum or plasm a creatinine, urine, random 48.7 Not Available [facility] [address] [facility] [address], [address], [place], [address], 11/19/2017 19:46:50 11/16/19 18 11/15/2017 CMP, serum or plasm a HGB 15.3 Not Available [address], [address], [place], [address], 11/19/2017 19:46:50 11/16/19 18 11/15/2017 CMP, serum or plasm a HCT 44.1 Not Available [facility] [address] [facility] [address], [address], [place], [address], 11/19/2017 19:46:50 11/16/19 18 11/15/2017 CMP, serum or plasm a WBC 6.6 Not Available [facility] [address] [facility] [address], [address], [place], [address], 11/19/2017 19:46:50 11/16/19 18 11/15/2017 CMP, serum or plasm a plt 275 Not Available [facility] [address] [facility] [address], [address], [place], [address], 11/19/2017 19:46:50 11/16/19 18 11/15/2017 CMP, serum or plasm a sodium, serum 137 Not Available [address], [address], [place], [address], 11/19/2017 19:46:50 11/16/19 18 11/15/2017 CMP, serum or plasm a potassium, seerum 4.0 Not Available [facility] [address] [facility] [address], [address], [place], [address], 11/19/2017 19:46:50 11/16/19 18 11/15/2017 CMP, serum or plasm a chloride, serum 96 Not Available [facility] [address] [facility] [address], [address], [place], [address], 11/19/2017 19:46:50 11/16/19 18 11/15/2017 CMP, serum or plasm a carbon dioxide 27 Not Available [facility] [address] [facility] [address], [address], [place], [address], 11/19/2017 19:46:50 11/16/19 18 11/15/2017 CMP, serum or plasm a calcium, serum 9.5 Not Available [facility] [address] [facility] [address], [address], [place], [address], 11/19/2017 19:46:50 11/16/19 18 11/15/2017 CMP, serum or plasm a glucose, serum 92 Not Available [facility] [address] [facility] [address], [address], [place], [address], 11/19/2017 19:46:50 11/16/19 18 11/15/2017 CMP, serum or plasm a BUN 27 Not Available [facility] [address] [facility] [address], [address], [place], [address], 11/19/2017 19:46:50 11/16/19 18 11/15/2017 CMP, serum or plasm a creatinine 1.63 Not Available [facility] [address] [facility] [address], [address], [place], [address], 11/19/2017 19:46:50 11/16/19 18 11/15/2017 CMP, serum or plasm a GFR 43 Not Available [facility] [address] [facility] [address], [address], [place], [address], 11/19/2017 19:46:50 11/16/19 18 11/15/2017 CMP, serum or plasm a bilirubin, total 0.6 Not Available [facility] [address], [address], [place], [address], 11/19/2017 19:46:50 11/16/19 18 11/15/2017 CMP, serum or plasm a albumin, serum 4.5 Not Available [facility] [address] [facility] [address], [address], [place], [address], 11/19/2017 19:46:50 11/16/19 18 11/15/2017 CMP, serum or plasm a protein, total, serum 7.5 Not Available [facility] [address] [facility] [address], [address], [place], [address], 11/19/2017 19:46:50 11/16/19 18 11/15/2017 CMP, serum or plasm a magnesium 1.8 Not Available [facility] [address] [facility] [address], [address], [place], [address], 11/19/2017 19:46:50 11/16/19 18 11/15/2017 CMP, serum or plasm a phosphorus 3.6 Not Available [facility] [address] [facility] [address], [address], [place], [address], 11/19/2017 19:46:50 11/16/19 18 11/15/2017 CMP, serum or plasm a uric acid 5.6 Not Available [facility] [address] [facility] [address], [address], [place], [address], 11/19/2017 19:46:50 11/16/19 18 11/15/2017 CBC w/ auto diff color, urine light, yellow Not Available [facility] [address] [facility] [address], [address], [place], [address], 11/19/2017 19:46:50 11/16/19 18 11/15/2017 CBC w/ auto diff clarity, urine clear Not Available [facility] [address] [facility] [address], [address], [place], [address], 11/19/2017 19:46:50 11/16/19 18 11/15/2017 CBC w/ auto diff pH, urine 6.0 Not Available [facility] [address] [facility] [address], [address], [place], [address], 11/19/2017 19:46:50 11/16/19 18 11/15/2017 CBC w/ auto diff specific gravity, urine 1.010 Not Available [facility] [address] [facility] [address], [address], [place], [address], 11/19/2017 19:46:50 11/16/19 18 11/15/2017 CBC w/ auto diff protein, total, urine 30 Not Available [facility] [address] [facility] [address], [address], [place], [address], 11/19/2017 19:46:50 11/16/19 18 11/15/2017 CBC w/ auto diff glucose, urine negati ve Not Available [facility] [address] [facility] [address], [address], [place], [address], 11/19/2017 19:46:50 11/16/19 18 11/15/2017 CBC w/ auto diff ketones, urine negati ve Not Available [facility] [address] [facility] [address], [address], [place], [address], 11/19/2017 19:46:50 11/16/19 18 11/15/2017 CBC w/ auto diff bilirubin, urine negati ve Not Available [facility] [address] [facility] [address], [address], [place], [address], 11/19/2017 19:46:50 11/16/19 18 11/15/2017 CBC w/ auto diff blood, urine negati ve Not Available [facility] [address] [facility] [address], [address], [place], [address], 11/19/2017 19:46:50 11/16/19 18 11/15/2017 CBC w/ auto diff nitrite, urine negati ve Not Available [facility] [address] [facility] [address], [address], [place], [address], 11/19/2017 19:46:50 11/16/19 18 11/15/2017 CBC w/ auto diff leukocyte esterase, urine negati ve Not Available [facility] [address] [facility] [address], [address], [place], [address], 11/19/2017 19:46:50 11/16/19 18 11/15/2017 CBC w/ auto diff urobilinogen , urine <2.0 Not Available [facility] [address] [facility] [address], [address], [place], [address], 11/19/2017 19:46:50 11/16/19 18 11/15/2017 CBC w/ auto diff WBC casts, urine <1 Not Available [facility] [address] [facility] [address], [address], [place], [address], 11/19/2017 19:46:50 11/16/19 18 11/15/2017 CBC w/ auto diff red blood cells, urine 0 Not Available [facility] [address] [facility] [address], [address], [place], [address], 11/19/2017 19:46:50 11/16/19 18 11/15/2017 CBC w/ auto diff epithelial cells, urine <1 Not Available [facility] [address] [facility] [address], [address], [place], [address], 11/19/2017 19:46:50 11/16/19 18 11/15/2017 CBC w/ auto diff protein, urine, random 10.1 Not Available [facility] [address] [facility] [address], [address], [place], [address], 11/19/2017 19:46:50 11/16/19 18 11/15/2017 CBC w/ auto diff creatinine, urine, random 48.7 Not Available [facility] [address] [facility] [address], [address], [place], [address], 11/19/2017 19:46:50 11/16/19 18 11/15/2017 CBC w/ auto diff HGB 15.3 Not Available [facility] [address] [facility] [address], [address], [place], [address], 11/19/2017 19:46:50 11/16/19 18 11/15/2017 CBC w/ auto diff HCT 44.1 Not Available [facility] [address] [facility] [address], [address], [place], [address], 11/19/2017 19:46:50 11/16/19 18 11/15/2017 CBC w/ auto diff WBC 6.6 Not Available [facility] [address] [facility] [address], [address], [place], [address], 11/19/2017 19:46:50 11/16/19 18 11/15/2017 CBC w/ auto diff plt 275 Not Available [facility] [address] [facility] [address], [address], [place], [address], 11/19/2017 19:46:50 11/16/19 18 11/15/2017 CBC w/ auto diff sodium, serum 137 Not Available [facility] [address] [facility] [address], [address], [place], [address], 11/19/2017 19:46:50 11/16/19 18 11/15/2017 CBC w/ auto diff potassium, seerum 4.0 Not Available [facility] [address] [facility] [address], [address], [place], [address], 11/19/2017 19:46:50 11/16/19 18 11/15/2017 CBC w/ auto diff chloride, serum 96 Not Available [facility] [address] [facility] [address], [address], [place], [address], 11/19/2017 19:46:50 11/16/19 18 11/15/2017 CBC w/ auto diff carbon dioxide 27 Not Available [facility] [address] [facility] [address], [address], [place], [address], 11/19/2017 19:46:50 11/16/19 18 11/15/2017 CBC w/ auto diff calcium, serum 9.5 Not Available [facility] [address], [address], [place], [address], 11/19/2017 19:46:50 11/16/19 18 11/15/2017 CBC w/ auto diff glucose, serum 92 Not Available [facility] [address], [address], [place], [address], 11/19/2017 19:46:50 11/16/19 18 11/15/2017 CBC w/ auto diff BUN 27 Not Available [facility] [address], [address], [place], [address], 11/19/2017 19:46:50 11/16/19 18 11/15/2017 CBC w/ auto diff creatinine 1.63 Not Available [facility] [address], [address], [place], [address], 11/19/2017 19:46:50 11/16/19 18 11/15/2017 CBC w/ auto diff GFR 43 Not Available [facility] [address] [facility] [address], [address], [place], [address], 11/19/2017 19:46:50 11/16/19 18 11/15/2017 CBC w/ auto diff bilirubin, total 0.6 Not Available [facility] [address] [facility] [address], [address], [place], [address], 11/19/2017 19:46:50 11/16/19 18 11/15/2017 CBC w/ auto diff albumin, serum 4.5 Not Available [facility] [address] [facility] [address], [address], [place], [address], 11/19/2017 19:46:50 11/16/19 18 11/15/2017 CBC w/ auto diff protein, total, serum 7.5 Not Available [facility] [address] [facility] [address], [address], [place], [address], 11/19/2017 19:46:50 11/16/19 18 11/15/2017 CBC w/ auto diff magnesium 1.8 Not Available [facility] [address] [facility] [address], [address], [place], [address], 11/19/2017 19:46:50 11/16/19 18 11/15/2017 CBC w/ auto diff phosphorus 3.6 Not Available [facility] [address] [facility] [address], [address], [place], [address], 11/19/2017 19:46:50 11/16/19 18 11/15/2017 CBC w/ auto diff uric acid 5.6 Not Available [facility] [address] [facility] [address], [address], [place], [address], 11/19/2017 19:46:50 11/16/19 18 11/15/2017 prote in:cr eatin ine ratio , urine color, urine light, yellow Not Available [facility] [address] [place], [place] [address]za y [address], [address], [place], [address], 11/19/2017 19:46:50 11/16/19 18 11/15/2017 prote in:cr eatin ine ratio , urine clarity, urine clear Not Available [facility] [address] [facility] [address], [address], [place], [address], 11/19/2017 19:46:50 11/16/19 18 11/15/2017 prote in:cr eatin ine ratio , urine pH, urine 6.0 Not Available [facility] [address] [facility] [address], [address], [place], [address], 11/19/2017 19:46:50 11/16/19 18 11/15/2017 prote in:cr eatin ine ratio , urine specific gravity, urine 1.010 Not Available [facility] [address] [place], [place] [address]y [address], [address], [place], [address], 11/19/2017 19:46:50 11/16/19 18 11/15/2017 prote in:cr eatin ine ratio , urine protein, total, urine 30 Not Available [facility] [address] [facility] [address], [address], [place], [address], 11/19/2017 19:46:50 11/16/19 18 11/15/2017 prote in:cr eatin ine ratio , urine glucose, urine negati ve Not Available [facility] [address] [place], [place] [address]y [address], [address], [place], [address], 11/19/2017 19:46:50 11/16/19 18 11/15/2017 prote in:cr eatin ine ratio , urine ketones, urine negati ve Not Available [facility] [address] [place], [place] [address]y [address], [address], [place], [address], 11/19/2017 19:46:50 11/16/19 18 11/15/2017 prote in:cr eatin ine ratio , urine bilirubin, urine negati ve Not Available [facility] [address], [place], [address], 11/19/2017 19:46:50 11/16/19 18 11/15/2017 prote in:cr eatin ine ratio , urine blood, urine negati ve Not Available [facility] [address] [facility] [address], [place], [address], 11/19/2017 19:46:50 11/16/19 18 11/15/2017 prote in:cr eatin ine ratio , urine nitrite, urine negati ve Not Available [facility] [address] [facility] [address], [place], [address], 11/19/2017 19:46:50 11/16/19 18 11/15/2017 prote in:cr eatin ine ratio , urine leukocyte esterase, urine negati ve Not Available [facility] [address] [facility] [address], [address], [place], [address], 11/19/2017 19:46:50 11/16/19 18 11/15/2017 prote in:cr eatin ine ratio , urine urobilinogen , urine <2.0 Not Available [facility] [address] [facility] [address], [address], [place], [address], 11/19/2017 19:46:50 11/16/19 18 11/15/2017 prote in:cr eatin ine ratio , urine WBC casts, urine <1 Not Available [facility] [address] [facility] [address], [place], [address], 11/19/2017 19:46:50 11/16/19 18 11/15/2017 prote in:cr eatin ine ratio , urine red blood cells, urine 0 Not Available [facility] [address] [facility] [address], [address], [place], [address], 11/19/2017 19:46:50 11/16/19 18 11/15/2017 prote in:cr eatin ine ratio , urine epithelial cells, urine <1 Not Available [facility] [address] [facility] [address], [address], [place], [address], 11/19/2017 19:46:50 11/16/19 18 11/15/2017 prote in:cr eatin ine ratio , urine protein, urine, random 10.1 Not Available [facility] [address] [facility] [address], [address], [place], [address], 11/19/2017 19:46:50 11/16/19 18 11/15/2017 prote in:cr eatin ine ratio , urine creatinine, urine, random 48.7 Not Available [facility] [address] [facility] [address], [address], [place], [address], 11/19/2017 19:46:50 11/16/19 18 11/15/2017 prote in:cr eatin ine ratio , urine HGB 15.3 Not Available [facility] [address] [facility] [address], [address], [place], [address], 11/19/2017 19:46:50 11/16/19 18 11/15/2017 prote in:cr eatin ine ratio , urine HCT 44.1 Not Available [facility] [address] [facility] [address], [address], [place], [address], 11/19/2017 19:46:50 11/16/19 18 11/15/2017 prote in:cr eatin ine ratio , urine WBC 6.6 Not Available [facility] [address] [facility] [address], [address], [place], [address], 11/19/2017 19:46:50 11/16/19 18 11/15/2017 prote in:cr eatin ine ratio , urine plt 275 Not Available [facility] [address], [address], [place], [address], 11/19/2017 19:46:50 11/16/19 18 11/15/2017 prote in:cr eatin ine ratio , urine sodium, serum 137 Not Available [facility] [address] [facility] [address], [address], [place], [address], 11/19/2017 19:46:50 11/16/19 18 11/15/2017 prote in:cr eatin ine ratio , urine potassium, seerum 4.0 Not Available [facility] [address] [facility] [address], [address], [place], [address], 11/19/2017 19:46:50 11/16/19 18 11/15/2017 prote in:cr eatin ine ratio , urine chloride, serum 96 Not Available [facility] [address], [address], [place], [address], 11/19/2017 19:46:50 11/16/19 18 11/15/2017 prote in:cr eatin ine ratio , urine carbon dioxide 27 Not Available [facility] [address], [address], [place], [address], 11/19/2017 19:46:50 11/16/19 18 11/15/2017 prote in:cr eatin ine ratio , urine calcium, serum 9.5 Not Available [facility] [address] [facility] [address], [address], [place], [address], 11/19/2017 19:46:50 11/16/19 18 11/15/2017 prote in:cr eatin ine ratio , urine glucose, serum 92 Not Available [facility] [address] [facility] [address], [place], [address], 11/19/2017 19:46:50 11/16/19 18 11/15/2017 prote in:cr eatin ine ratio , urine BUN 27 Not Available [facility] [address] [place] [address] [address], [address], [place], [address], 11/19/2017 19:46:50 11/16/19 18 11/15/2017 prote in:cr eatin ine ratio , urine creatinine 1.63 Not Available [facility] [address] [facility] [address], [address], [place], [address], 11/19/2017 19:46:50 11/16/19 18 11/15/2017 prote in:cr eatin ine ratio , urine GFR 43 Not Available [facility] [address] [place] [address] [address], [address], [place], [address], 11/19/2017 19:46:50 11/16/19 18 11/15/2017 prote in:cr eatin ine ratio , urine bilirubin, total 0.6 Not Available [facility] [address] [facility] [address], [address], [place], [address], 11/19/2017 19:46:50 11/16/19 18 11/15/2017 prote in:cr eatin ine ratio , urine albumin, serum 4.5 Not Available [facility] [address] [facility] [address], [address], [place], [address], 11/19/2017 19:46:50 11/16/19 18 11/15/2017 prote in:cr eatin ine ratio , urine protein, total, serum 7.5 Not Available [facility] [address] [facility] [address], [address], [place], [address], 11/19/2017 19:46:50 11/16/19 18 11/15/2017 prote in:cr eatin ine ratio , urine magnesium 1.8 Not Available [facility] [address] [facility] [address], [place], [address], 11/19/2017 19:46:50 11/16/19 18 11/15/2017 prote in:cr eatin ine ratio , urine phosphorus 3.6 Not Available [facility] [address] [facility] [address], [place], [address], 11/19/2017 19:46:50 11/16/19 18 11/15/2017 prote in:cr eatin ine ratio , urine uric acid 5.6 Not Available [facility] [address] [facility] [address], [place], [address], 11/19/2017 19:46:50 05/07/20 18 05/07/2018 lipid panel , blood sodium, serum 139 normal Not Available Not Available 08/03 13:16:15 05/07/20 18 05/07/2018 lipid panel , blood potassium, serum 3.4 normal Not Available Not Available 08/03 13:16:15 05/07/20 18 05/07/2018 lipid panel , blood chloride, serum 100 normal Not Available Not Available 08/03 13:16:15 05/07/20 18 05/07/2018 lipid panel , blood carbon dioxide 28 normal Not Available Not Available 08/03 13:16:15 05/07/20 18 05/07/2018 lipid panel , blood calcium, serum 9.1 normal Not Available Not Available 08/03 13:16:15 05/07/20 18 05/07/2018 lipid panel , blood glucose 112 high Not Available Not Availa ble 08/27/2018 13:16:15 05/07/20 18 05/07/2018 lipid panel , blood BUN 25 high Not Available Not Availa ble 08/27/2018 13:16:15 05/07/20 18 05/07/2018 lipid panel , blood creatinine 1.70 high Not Available Not Jelena ilable 08/27/2018 13:16:15 05/07/20 18 05/07/2018 lipid panel , blood eGFR 41 low Not Available Not Availa ble 08/27/2018 13:16:15 05/07/20 18 05/07/2018 lipid panel , blood bilirubin, total 0.5 normal Not Available Not Available 08/03 13:16:15 05/07/20 18 05/07/2018 lipid panel , blood alkaline phosphatase 43 normal Not Available Not Available 08/27/2018 13:16:15 05/07/20 18 05/07/2018 lipid panel , blood album, serum 4.3 normal Not Available Not A vailable 08/27/2018 13:16:15 05/07/20 18 05/07/2018 lipid panel , blood protein, total, serum 6.9 normal Not Available Not Available 08/27/2018 13:16:15 05/07/20 18 05/07/2018 lipid panel , blood BUN 28 high Not Available Not Availa ble 08/27/2018 13:16:15 05/07/20 18 05/07/2018 lipid panel , blood creatinine 1.56 high Not Available Not Jelena ilable 08/27/2018 13:16:15 05/07/20 18 05/07/2018 lipid panel , blood eGFR 45 low Not Available Not Availa ble 08/27/2018 13:16:15 05/07/20 18 05/07/2018 BMP, serum or plasm a sodium, serum 139 normal Not Available Not Available 08/03 13:16:15 05/07/20 18 05/07/2018 BMP, serum or plasm a potassium, serum 3.4 normal Not Available Not Available 08/03 13:16:15 05/07/20 18 05/07/2018 BMP, serum or plasm a chloride, serum 100 normal Not Available Not Available 08/03 13:16:15 05/07/20 18 05/07/2018 BMP, serum or plasm a carbon dioxide 28 normal Not Available Not Available 08/03 13:16:15 05/07/20 18 05/07/2018 BMP, serum or plasm a calcium, serum 9.1 normal Not Available Not Available 08/03 13:16:15 05/07/20 18 05/07/2018 BMP, serum or plasm a glucose 112 high Not Available Not Availa ble 08/27/2018 13:16:15 05/07/20 18 05/07/2018 BMP, serum or plasm a BUN 25 high Not Available Not Availa ble 08/27/2018 13:16:15 05/07/20 18 05/07/2018 BMP, serum or plasm a creatinine 1.70 high Not Available Not Jelena ilable 08/27/2018 13:16:15 05/07/20 18 05/07/2018 BMP, serum or plasm a eGFR 41 low Not Available Not Availa ble 08/27/2018 13:16:15 05/07/20 18 05/07/2018 BMP, serum or plasm a bilirubin, total 0.5 normal Not Available Not Available 08/03 13:16:15 05/07/20 18 05/07/2018 BMP, serum or plasm a alkaline phosphatase 43 normal Not Available Not Available 08/27/2018 13:16:15 05/07/20 18 05/07/2018 BMP, serum or plasm a album, serum 4.3 normal Not Available Not A vailable 08/27/2018 13:16:15 05/07/20 18 05/07/2018 BMP, serum or plasm a protein, total, serum 6.9 normal Not Available Not Available 08/27/2018 13:16:15 05/07/20 18 05/07/2018 BMP, serum or plasm a BUN 28 high Not Available Not Availa ble 08/27/2018 13:16:15 05/07/20 18 05/07/2018 BMP, serum or plasm a creatinine 1.56 high Not Available Not Jelena ilable 08/27/2018 13:16:15 05/07/20 18 05/07/2018 BMP, serum or plasm a eGFR 45 low Not Available Not Avail[facility] ble 08/27/2018 13:16:15 08/06/20 18 08/06/2018 BMP, serum or plasm a sodium, serum 139 normal Not Available Not Available 08/03 12:03:44 08/06/20 18 08/06/2018 BMP, serum or plasm a potassium, serum 3.4 normal Not Available Not Available 08/03 12:03:44 08/06/20 18 08/06/2018 BMP, serum or plasm a chloride, serum 100 normal Not Available Not Available 08/03 12:03:44 08/06/20 18 08/06/2018 BMP, serum or plasm a carbon dioxide 28 normal Not Available Not Available 08/03 12:03:44 08/06/20 18 08/06/2018 BMP, serum or plasm a calcium, serum 9.1 normal Not Available Not Available 08/03 12:03:44 08/06/20 18 08/06/2018 BMP, serum or plasm a glucose 112 high Not Available Not Availa ble 08/27/2018 12:03:44 08/06/20 18 08/06/2018 BMP, serum or plasm a BUN 25 high Not Available Not Avail[facility] ble 08/27/2018 12:03:44 08/06/20 18 08/06/2018 BMP, serum or plasm a creatinine 1.70 high Not Available Not Jelena ilable 08/27/2018 12:03:44 08/06/20 18 08/06/2018 BMP, serum or plasm a eGFR 41 low Not Available Not Avail[facility] ble 08/27/2018 12:03:44 08/06/20 18 08/06/2018 BMP, serum or plasm a bilirubin, total 0.5 normal Not Available Not Available 08/03 12:03:44 08/06/20 18 08/06/2018 BMP, serum or plasm a alkaline phosphatase 43 normal Not Available Not Available 08/27/2018 12:03:44 08/06/20 18 08/06/2018 BMP, serum or plasm a album, serum 4.3 normal Not Available Not A vailable 08/27/2018 12:03:44 08/06/20 18 08/06/2018 BMP, serum or plasm a protein, total, serum 6.9 normal Not Available Not Available 08/27/2018 12:03:44 08/06/20 18 08/06/2018 BMP, serum or plasm a BUN 28 high Not Available Not Availa ble 08/27/2018 12:03:44 08/06/20 18 08/06/2018 BMP, serum or plasm a creatinine 1.56 high Not Available Not Jelena ilable 08/27/2018 12:03:44 08/06/20 18 08/06/2018 BMP, serum or plasm a eGFR 45 low Not Available Not Availa ble 08/27/2018 12:03:44 08/29/20 18 08/29/2018 prote in:cr eatin ine ratio , urine glucose 96 normal Not Available [facility] [address] [facility] [address], [place], [address], 09/17/2018 17:00:34 08/29/20 18 08/29/2018 prote in:cr eatin ine ratio , urine BUN 25 high Not Available [facility] [address] [facility] [address], [address], [place], [address], 09/17/2018 17:00:34 08/29/20 18 08/29/2018 prote in:cr eatin ine ratio , urine creatinine 1.51 high Not Available [facility] [address] [facility] [address], [address], [place], [address], 09/17/2018 17:00:34 08/29/20 18 08/29/2018 prote in:cr eatin ine ratio , urine sodium, serum 139 normal Not Available [facility] [address] [place] [address] [address], [address], [place], [address], 09/17/2018 17:00:34 08/29/20 18 08/29/2018 prote in:cr eatin ine ratio , urine potassium, serum 3.9 normal Not Available [facility] [address] [facility] [address], [address], [place], [address], 09/17/2018 17:00:34 08/29/20 18 08/29/2018 prote in:cr eatin ine ratio , urine chloride, serum 102 normal Not Available [facility] [address] [place] [address] [address], [address], [place], [address], 09/17/2018 17:00:34 08/29/20 18 08/29/2018 prote in:cr eatin ine ratio , urine carbon dioxide 28 normal Not Available [facility] [address] [facility] [address], [address], [place], [address], 09/17/2018 17:00:34 08/29/20 18 08/29/2018 prote in:cr eatin ine ratio , urine album, serum 4.3 normal Not Available [facility] [address] [place] [address] [address], [address], [place], [address], 09/17/2018 17:00:34 08/29/20 18 08/29/2018 prote in:cr eatin ine ratio , urine calcium, serum 9.2 normal Not Available [facility] [address] [place], [place] [address], [address], [place], [address], 09/17/2018 17:00:34 08/29/20 18 08/29/2018 prote in:cr eatin ine ratio , urine alkaline phosphatase 44 normal Not Available [facility] [address] [facility] [address], [address], [place], [address], 09/17/2018 17:00:34 08/29/20 18 08/29/2018 prote in:cr eatin ine ratio , urine bilirubin, total 0.4 normal Not Available [facility] [address] [place], [place] [address], [address], [place], [address], 09/17/2018 17:00:34 08/29/20 18 08/29/2018 prote in:cr eatin ine ratio , urine protein, total, serum 70 normal Not Available [facility] [address] [place], [place] [address]za y [address], [address], [place], [address], 09/17/2018 17:00:34 08/29/20 18 08/29/2018 prote in:cr eatin ine ratio , urine eGFR 47 low Not Available [facility] [address] [facility] [address], [place], [address], 09/17/2018 17:00:34 08/29/20 18 08/29/2018 prote in:cr eatin ine ratio , urine creatinine, urine 23.0 normal Not Available [facility] [address] [place], [place] [address]za [address], [address], [place], [address], 09/17/2018 17:00:34 08/29/20 18 08/29/2018 prote in:cr eatin ine ratio , urine protein, total, urine, random 9.8 normal Not Available [facility] [address] [facility] [address], [address], [place], [address], 09/17/2018 17:00:34 08/29/20 18 08/29/2018 urina lysis compl ete, refle x cultu re WBC count 6.3 normal Not Available [facility] [address] [facility] [address], [address], [place], [address], 09/17/2018 16:56:21 08/29/20 18 08/29/2018 urina lysis compl ete, refle x cultu re HGB 15 normal Not Available [facility] [address] [facility] [address], [address], [place], [address], 09/17/2018 16:56:21 08/29/20 18 08/29/2018 urina lysis compl ete, refle x cultu re HCT 44.2 normal Not Available [facility] [address] [facility] [place] [address], [address], [place], [address], 09/17/2018 16:56:21 08/29/20 18 08/29/2018 urina lysis compl ete, refle x cultu re platelet count 254 normal Not Available [facility] [address] [facility] [place] [address], [address], [place], [address], 09/17/2018 16:56:21 08/29/20 18 08/29/2018 CMP, serum or plasm a glucose 96 normal Not Available [facility] [address] [facility] [place] [address], [address], [place], [address], 08/29/2018 18:28:02 08/29/20 18 08/29/2018 CMP, serum or plasm a BUN 25 high Not Available [facility] [address], [address], [place], [address], 08/29/2018 18:28:02 08/29/20 18 08/29/2018 CMP, serum or plasm a creatinine 1.51 high Not Available [facility] [address] [facility] [address], [address], [place], [address], 08/29/2018 18:28:02 08/29/20 18 08/29/2018 CMP, serum or plasm a sodium, serum 139 normal Not Available [facility] [address] [facility] [address], [address], [place], [address], 08/29/2018 18:28:02 08/29/20 18 08/29/2018 CMP, serum or plasm a potassium, serum 3.9 normal Not Available [facility] [address] [facility] [address], [address], [place], [address], 08/29/2018 18:28:02 08/29/20 18 08/29/2018 CMP, serum or plasm a chloride, serum 102 normal Not Available [facility] [address] [facility] [place] [address], [address], [place], [address], 08/29/2018 18:28:02 08/29/20 18 08/29/2018 CMP, serum or plasm a carbon dioxide 28 normal Not Available [facility] [address], [address], [place], [address], 08/29/2018 18:28:02 08/29/20 18 08/29/2018 CMP, serum or plasm a album, serum 4.3 normal Not Available [facility] [address], [address], [place], [address], 08/29/2018 18:28:02 08/29/20 18 08/29/2018 CMP, serum or plasm a calcium, serum 9.2 normal Not Available [facility] [address] [facility] [address], [address], [place], [address], 08/29/2018 18:28:02 08/29/20 18 08/29/2018 CMP, serum or plasm a alkaline phosphatase 44 normal Not Available [facility] [address], [address], [place], [address], 08/29/2018 18:28:02 08/29/20 18 08/29/2018 CMP, serum or plasm a bilirubin, total 0.4 normal Not Available [address], [address], [place], [address], 08/29/2018 18:28:02 08/29/20 18 08/29/2018 CMP, serum or plasm a protein, total, serum 70 normal Not Available [address], [address], [place], [address], 08/29/2018 18:28:02 08/29/20 18 08/29/2018 CMP, serum or plasm a eGFR 47 low Not Available [facility] [address] [place] [address] [address], [address], [place], [address], 08/29/2018 18:28:02 08/29/20 18 08/29/2018 CMP, serum or plasm a creatinine, urine 23.0 normal Not Available [address], [address], [place], [address], 08/29/2018 18:28:02 08/29/20 18 08/29/2018 CMP, serum or plasm a protein, total, urine, random 9.8 normal Not Available [facility] [address], [address], [place], [address], 08/29/2018 18:28:02 08/29/20 18 08/29/2018 CBC w/ auto diff WBC count 6.3 normal Not Available [address], [place], [address], 08/29/2018 15:25:44 08/29/20 18 08/29/2018 CBC w/ auto diff HGB 15 normal Not Available [facility] [address] [facility] [address], [place], [address], 08/29/2018 15:25:44 08/29/20 18 08/29/2018 CBC w/ auto diff HCT 44.2 normal Not Available [facility] [address] [facility] [address], [place], [address], 08/29/2018 15:25:44 08/29/20 18 08/29/2018 CBC w/ auto diff platelet count 254 normal Not Available [facility] [address] [facility] [address], [place], [address], 08/29/2018 15:25:44 02/11/20 19 02/10/2019 lipid panel , serum WBC count 5.0 normal Not Available Not Avai lable 03/03/2019 16:15:17 02/11/20 19 02/10/2019 lipid panel , serum HGB 14.7 normal Not Available Not Availa ble 03/03/2019 16:15:17 02/11/20 19 02/10/2019 lipid panel , serum HCT 42.4 normal Not Available Not Availa ble 03/03/2019 16:15:17 02/11/20 19 02/10/2019 lipid panel , serum platelet count 246 normal Not Available Not Available 10/2018 16:15:17 02/11/20 19 02/10/2019 lipid panel , serum glucose 95 95 Not Available Not Availa ble 03/03/2019 16:15:17 02/11/20 19 02/10/2019 lipid panel , serum BUN 23 high Not Available Not Availa ble 03/03/2019 16:15:17 02/11/20 19 02/10/2019 lipid panel , serum creatinine 1.48 high Not Available Not Jelena ilable 03/03/2019 16:15:17 02/11/20 19 02/10/2019 lipid panel , serum sodium, serum 138 normal Not Available Not Available 10/2018 16:15:17 02/11/20 19 02/10/2019 lipid panel , serum potassium, serum 3.9 normal Not Available Not Available 10/2018 16:15:17 02/11/20 19 02/10/2019 lipid panel , serum chloride, serum 100 normal Not Available Not Available 10/2018 16:15:17 02/11/20 19 02/10/2019 lipid panel , serum carbon dioxide 25 normal Not Available Not Available 10/2018 16:15:17 02/11/20 19 02/10/2019 lipid panel , serum album, serum 4.1 normal Not Available Not A vailable 03/03/2019 16:15:17 02/11/20 19 02/10/2019 lipid panel , serum calcium, serum 9.1 normal Not Available Not Available 10/2018 16:15:17 02/11/20 19 02/10/2019 lipid panel , serum alkaline phosphatase 43 normal Not Available Not Available 03/03/2019 16:15:17 02/11/20 19 02/10/2019 lipid panel , serum bilirubin, total .60 normal Not Available Not Available 10/2018 16:15:17 02/11/20 19 02/10/2019 lipid panel , serum protein, total, serum 7.2 normal Not Available Not Available 03/03/2019 16:15:17 02/11/20 19 02/10/2019 lipid panel , serum eGFR 48 low Not Available Not Availa ble 03/03/2019 16:15:17 02/11/20 19 02/10/2019 CMP, serum or plasm a WBC count 5.0 normal Not Available Not Avai lable 03/03/2019 16:15:17 02/11/20 19 02/10/2019 CMP, serum or plasm a HGB 14.7 normal Not Available Not Availa ble 03/03/2019 16:15:17 02/11/20 19 02/10/2019 CMP, serum or plasm a HCT 42.4 normal Not Available Not Availa ble 03/03/2019 16:15:17 02/11/20 19 02/10/2019 CMP, serum or plasm a platelet count 246 normal Not Available Not Available 10/2018 16:15:17 02/11/20 19 02/10/2019 CMP, serum or plasm a glucose 95 95 Not Available Not Availa ble 03/03/2019 16:15:17 02/11/20 19 02/10/2019 CMP, serum or plasm a BUN 23 high Not Available Not Availa ble 03/03/2019 16:15:17 02/11/20 19 02/10/2019 CMP, serum or plasm a creatinine 1.48 high Not Available Not Jelena ilable 03/03/2019 16:15:17 02/11/20 19 02/10/2019 CMP, serum or plasm a sodium, serum 138 normal Not Available Not Available 10/2018 16:15:17 02/11/20 19 02/10/2019 CMP, serum or plasm a potassium, serum 3.9 normal Not Available Not Available 10/2018 16:15:17 02/11/20 19 02/10/2019 CMP, serum or plasm a chloride, serum 100 normal Not Available Not Available 10/2018 16:15:17 02/11/20 19 02/10/2019 CMP, serum or plasm a carbon dioxide 25 normal Not Available Not Available 10/2018 16:15:17 02/11/20 19 02/10/2019 CMP, serum or plasm a album, serum 4.1 normal Not Available Not A vailable 03/03/2019 16:15:17 02/11/2002/10/2019 CMP, serum or plasm a calcium, serum 9.1 normal Not Available Not Available 10/2018 16:15:17 02/11/20 19 02/10/2019 CMP, serum or plasm a alkaline phosphatase 43 normal Not Available Not Available 03/03/2019 16:15:17 02/11/20 19 02/10/2019 CMP, serum or plasm a bilirubin, total .60 normal Not Available Not Available 10/2018 16:15:17 02/11/20 19 02/10/2019 CMP, serum or plasm a protein, total, serum 7.2 normal Not Available Not Available 03/03/2019 16:15:17 02/11/20 19 02/10/2019 CMP, serum or plasm a eGFR 48 low Not Available Not Availa ble 03/03/2019 16:15:17 02/11/2002/10/2019 CBC w/ auto diff WBC count 5.0 normal Not Available Not Avai lable 03/02/2019 12:00:52 02/11/20 19 02/10/2019 CBC w/ auto diff HGB 14.7 normal Not Available Not Availa ble 03/02/2019 12:00:52 02/11/20 19 02/10/2019 CBC w/ auto diff HCT 42.4 normal Not Available Not Availa ble 03/02/2019 12:00:52 02/11/20 19 02/10/2019 CBC w/ auto diff platelet count 246 normal Not Available Not Available 09/2018 12:00:52 02/11/20 19 02/10/2019 CBC w/ auto diff glucose 95 95 Not Available Not Availa ble 03/02/2019 12:00:52 02/11/20 19 02/10/2019 CBC w/ auto diff BUN 23 high Not Available Not Availa ble 03/02/2019 12:00:52 02/11/20 19 02/10/2019 CBC w/ auto diff creatinine 1.48 high Not Available Not Jelena ilable 03/02/2019 12:00:52 02/11/20 19 02/10/2019 CBC w/ auto diff sodium, serum 138 normal Not Available Not Available 09/2018 12:00:52 02/11/20 19 02/10/2019 CBC w/ auto diff potassium, serum 3.9 normal Not Available Not Available 09/2018 12:00:52 02/11/20 19 02/10/2019 CBC w/ auto diff chloride, serum 100 normal Not Available Not Available 09/2018 12:00:52 02/11/20 19 02/10/2019 CBC w/ auto diff carbon dioxide 25 normal Not Available Not Available 09/2018 12:00:52 02/11/20 19 02/10/2019 CBC w/ auto diff album, serum 4.1 normal Not Available Not A vailable 03/02/2019 12:00:52 02/11/20 19 02/10/2019 CBC w/ auto diff calcium, serum 9.1 normal Not Available Not Available 09/2018 12:00:52 02/11/20 19 02/10/2019 CBC w/ auto diff alkaline phosphatase 43 normal Not Available Not Available 03/02/2019 12:00:52 02/11/20 19 02/10/2019 CBC w/ auto diff bilirubin, total .60 normal Not Available Not Available 09/2018 12:00:52 02/11/20 19 02/10/2019 CBC w/ auto diff protein, total, serum 7.2 normal Not Available Not Available 03/02/2019 12:00:52 02/11/20 19 02/10/2019 CBC w/ auto diff eGFR 48 low Not Available Not Availa ble 03/02/2019 12:00:52 03/03/20 19 03/03/2019 renal funct ion panel , serum glucose 96 normal Not Available [facility] [address], [place], [address], 03/04/2019 18:56:10 03/03/20 19 03/03/2019 renal funct ion panel , serum BUN 26 high Not Available [facility] [address], [place], [address], 03/04/2019 18:56:10 03/03/20 19 03/03/2019 renal funct ion panel , serum creatinine 1.61 normal Not Available [facility] [address], [place], [address], 03/04/2019 18:56:10 03/03/20 19 03/03/2019 renal funct ion panel , serum sodium, serum 139 normal Not Available [facility] [address], [place], [address], 03/04/2019 18:56:10 03/03/20 19 03/03/2019 renal funct ion panel , serum potassium, serum 3.8 normal Not Available [facility] [address], [place], [address], 03/04/2019 18:56:10 03/03/20 19 03/03/2019 renal funct ion panel , serum chloride, serum 104 normal Not Available [facility] [address], [place], [address], 03/04/2019 18:56:10 03/03/20 19 03/03/2019 renal funct ion panel , serum carbon dioxide 24 normal Not Available [facility] [address], [place], [address], 03/04/2019 18:56:10 03/03/20 19 03/03/2019 renal funct ion panel , serum calcium, serum 9.1 normal normal Not Available [facility] [address], [place], [address], 03/04/2019 18:56:10 03/03/2003/03/2019 renal funct ion panel , serum eGFR 44 low Not Available [facility] [address], [place], [address], 03/04/2019 18:56:10 03/04/20 19 03/04/2019 prote in:cr eatin ine ratio , urine glucose 96 normal Not Available [facility] [address], [place], [address], 03/04/2019 08:17:55 03/04/20 19 03/04/2019 prote in:cr eatin ine ratio , urine BUN 26 high Not Available [facility] [address] [address], [place], [address], 03/04/2019 08:17:55 03/04/20 19 03/04/2019 prote in:cr eatin ine ratio , urine creatinine 1.61 normal Not Available [facility] Lilliam Ramsey [address], [address], [place], [address], 03/04/2019 08:17:55 03/04/20 19 03/04/2019 prote in:cr eatin ine ratio , urine sodium, serum 139 normal Not Available [facility] [address], [place], [address], 03/04/2019 08:17:55 03/04/20 19 03/04/2019 prote in:cr eatin ine ratio , urine potassium, serum 3.8 normal Not Available [facility] [address] [facility] Agust[address] Jonesy [address], [address], [place], [address], 03/04/2019 08:17:55 03/04/20 19 03/04/2019 prote in:cr eatin ine ratio , urine chloride, serum 104 normal Not Available [facility] [address] [facility] Agustín Jonesy [address], [address], [place], [address], 03/04/2019 08:17:55 03/04/20 19 03/04/2019 prote in:cr eatin ine ratio , urine carbon dioxide 24 normal Not Available [facility] [address] [facility] [address], [address], [place], [address], 03/04/2019 08:17:55 03/04/20 19 03/04/2019 prote in:cr eatin ine ratio , urine calcium, serum 9.1 normal normal Not Available [facility] [address] [facility] [address], [address], [place], [address], 03/04/2019 08:17:55 03/04/20 19 03/04/2019 prote in:cr eatin ine ratio , urine eGFR 44 low Not Available [facility] [address] [place] [address] [address]ín [address]y [address], [address], [place], [address], 03/04/2019 08:17:55 01/20/20 20 01/20/2020 CMP, serum or plasm a sodium, serum 136 normal Not Available Not Available 12/2019 12:50:46 01/20/20 20 01/20/2020 CMP, serum or plasm a potassium, serum 4.2 normal Not Available Not Available 12/2019 12:50:46 01/20/20 20 01/20/2020 CMP, serum or plasm a chloride, serum 101 normal Not Available Not Available 12/2019 12:50:46 01/20/20 20 01/20/2020 CMP, serum or plasm a calcium, serum 9.2 normal Not Available Not Available 12/2019 12:50:46 01/20/20 20 01/20/2020 CMP, serum or plasm a glucose 99 normal Not Available Not Availa ble 02/04/2020 12:50:46 01/20/20 20 01/20/2020 CMP, serum or plasm a BUN 22 high Not Available Not Availa ble 02/04/2020 12:50:46 01/20/20 20 01/20/2020 CMP, serum or plasm a creatinine 1.45 high Not Available Not Jelena ilable 02/04/2020 12:50:46 01/20/20 20 01/20/2020 CMP, serum or plasm a eGFR 49 low Not Available Not Availa ble 02/04/2020 12:50:46 01/20/20 20 01/20/2020 CMP, serum or plasm a bilirubin, total 0.70 normal Not Available Not Available 12/2019 12:50:46 01/20/20 20 01/20/2020 CMP, serum or plasm a alkaline phosphatase 47 normal Not Available Not Available 02/04/2020 12:50:46 01/20/20 20 01/20/2020 CMP, serum or plasm a album, serum 4.3 normal Not Available Not A vailable 02/04/2020 12:50:46 01/20/20 20 01/20/2020 CMP, serum or plasm a protein, total, serum 7.2 normal Not Available Not Available 02/04/2020 12:50:46 10/24/19 21 10/24/2020 CMP, serum or plasm a HGB 14.5 normal Not Available [facility] [address] [facility] [employer] [address], [place], [address], 11/15/2020 13:57:47 10/24/19 21 10/24/2020 CMP, serum or plasm a HCT 43.1 normal Not Available [facility] [address] [facility] [address], [address], [place], [address], 11/15/2020 13:57:47 10/24/19 21 10/24/2020 CMP, serum or plasm a platelet count 242 normal Not Available [facility] [address], [address], [place], [address], 11/15/2020 13:57:47 10/24/19 21 10/24/2020 CMP, serum or plasm a WBC count 4.9 normal Not Available [facility] [address] [facility] [address], [address], [place], [address], 11/15/2020 13:57:47 10/24/19 21 10/24/2020 CMP, serum or plasm a glucose 103 normal Not Available [facility] [address] [facility] [address], [address], [place], [address], 11/15/2020 13:57:47 10/24/19 21 10/24/2020 CMP, serum or plasm a BUN 24 high Not Available [facility] [address] [facility] [address], [address], [place], [address], 11/15/2020 13:57:47 10/24/19 21 10/24/2020 CMP, serum or plasm a creatinine 1.36 high Not Available [facility] [address], [address], [place], [address], 11/15/2020 13:57:47 10/24/19 21 10/24/2020 CMP, serum or plasm a sodium, serum 136 normal Not Available [facility] [address], [address], [place], [address], 11/15/2020 13:57:47 10/24/19 21 10/24/2020 CMP, serum or plasm a potassium, serum 4.2 normal Not Available [facility] [address] [facility] [address], [address], [place], [address], 11/15/2020 13:57:47 10/24/19 21 10/24/2020 CMP, serum or plasm a chloride, serum 102 normal Not Available [facility] [address] [facility] [address], [address], [place], [address], 11/15/2020 13:57:47 10/24/19 21 10/24/2020 CMP, serum or plasm a carbon dixoide 27 normal Not Available [facility] [address] [facility] [address], [address], [place], [address], 11/15/2020 13:57:47 10/24/19 21 10/24/2020 CMP, serum or plasm a album, serum 4.3 normal Not Available [facility] [address] [facility] [address], [address], [place], [address], 11/15/2020 13:57:47 10/24/19 21 10/24/2020 CMP, serum or plasm a calcium, serum 9.5 normal Not Available [facility] [address] [facility] [address], [address], [place], [address], 11/15/2020 13:57:47 10/24/19 21 10/24/2020 CMP, serum or plasm a eGFR 53 low Not Available [facility] [address] [facility] [address], [address], [place], [address], 11/15/2020 13:57:47 10/24/19 21 10/24/2020 CMP, serum or plasm a protein, total, serum 6.7 normal Not Available [facility] [address] [facility] [address], [address], [place], [address], 11/15/2020 13:57:47 10/24/19 21 10/24/2020 CBC w/ auto diff HGB 14.5 normal Not Available [facility] [address] [facility] [address], [address], [place], [address], 11/02/2020 12:21:14 10/24/19 21 10/24/2020 CBC w/ auto diff HCT 43.1 normal Not Available [facility] [address], [address], [place], [address], 11/02/2020 12:21:14 10/24/19 21 10/24/2020 CBC w/ auto diff platelet count 242 normal Not Available [facility] [address], [address], [place], [address], 11/02/2020 12:21:14 10/24/19 21 10/24/2020 CBC w/ auto diff WBC count 4.9 normal Not Available [facility] [address], [address], [place], [address], 11/02/2020 12:21:14 10/24/19 21 10/24/2020 CBC w/ auto diff glucose 103 normal Not Available [facility] [address], [address], [place], [address], 11/02/2020 12:21:14 10/24/19 21 10/24/2020 CBC w/ auto diff BUN 24 high Not Available [facility] [address], [address], [place], [address], 11/02/2020 12:21:14 10/24/19 21 10/24/2020 CBC w/ auto diff creatinine 1.36 high Not Available [facility] [address], [address], [place], [address], 11/02/2020 12:21:14 10/24/19 21 10/24/2020 CBC w/ auto diff sodium, serum 136 normal Not Available [facility] [address], [address], [place], [address], 11/02/2020 12:21:14 10/24/19 21 10/24/2020 CBC w/ auto diff potassium, serum 4.2 normal Not Available [facility] [address] [facility] [address], [address], [place], [address], 11/02/2020 12:21:14 10/24/19 21 10/24/2020 CBC w/ auto diff chloride, serum 102 normal Not Available [facility] [address] [facility] [address], [address], [place], [address], 11/02/2020 12:21:14 10/24/19 21 10/24/2020 CBC w/ auto diff carbon dixoide 27 normal Not Available [facility] [address] [facility] [address], [address], [place], [address], 11/02/2020 12:21:14 10/24/19 21 10/24/2020 CBC w/ auto diff album, serum 4.3 normal Not Available [facility] [address] [facility] [address], [address], [place], [address], 11/02/2020 12:21:14 10/24/19 21 10/24/2020 CBC w/ auto diff calcium, serum 9.5 normal Not Available [facility] [address] [facility] [address], [address], [place], [address], 11/02/2020 12:21:14 10/24/19 21 10/24/2020 CBC w/ auto diff eGFR 53 low Not Available [facility] [address] [facility] [address], [address], [place], [address], 11/02/2020 12:21:14 10/24/19 21 10/24/2020 CBC w/ auto diff protein, total, serum 6.7 normal Not Available [facility] [address] [facility] [address], [address], [place], [address], 11/02/2020 12:21:14 05/24/20 17 05/24/2017 US, janae rowland No observ ation record ed. [email or web address] Not Available 2016 16:31:59 Result Notes None recorded. Problems Name Problem SNOMED Code Status Onset Date Resolution Date Notes Provider Name and Address Organization Details Recorded Time Chronic kidney disease stage 3 331403591 Active 2013 Not Available [facility] 5 13:00:54 Benign hypertensive renal disease 185486 Active 2013 Not Available [facility] 5 13:00:54 Hyperlipidemi a 60995617 Active 2013 Not Available [facility] 5 13:00:54 Essential hypertension 54542153 Active [facility] 7 17:03:46 Total nephrectomy Active 2016 [facility] 7 17:03:47 Problem Notes None recorded. Procedures Surgical History Date Name Laterality Status Provider Name and Address Organization Details Recorded Time 6 Other completed [facility], [facility] 08/13/2016 14:20:40 6 Shoulder joint surgery completed [facility], [facility] 08/13/2016 14:21:35 2 Nephrectomy completed [facility] 14:20:55 Imaging Results Imaging Date Name Status LastModified by Organiz ation Details LastModified Time 05/24/2017 US, kidney completed [email or web address] Information no t available 05/29/2017 16:31:59 Procedure Notes None recorded. Medical Equipment None Reported. Allergies No known drug allergies Medications Name Sig Start Date Stop Date Status Note LastModified by Organization Details LastModified Time losartan 50 mg tablet Take 1 tablet every day by oral route at bedtime for 30 days. 09/04 completed Not Available Not Available Not Available pravastatin 40 mg tablet 1 ORAL EVERY NIGHT active Not Available Not Available No t Available clonazepam 0.5 mg tablet Take 1 tablet 3 times a day by oral route as needed. active Not Available Not Available No t Available amlodipine 2.5 mg tablet 1 ORAL ONCE A DAY active Not Available Not Available No t Available temazepam 15 mg capsule Take 1 capsule every day by oral route as needed. 03/12 completed Not Available Not Available Not Available Vitals Date Recorded Body height Provider Name an d Address Organization Details Last Updated DateTime 05/29/2017 167.64 cm Peggy Powell [facility] 05/29/2017 16:11:51 Date Recorded Body mass index (BMI) Body weight Provider Name and Address Organization Details Last Updated DateTime 05/29/2017 21 kg/m2 97231.01 g [facility] 05/29/2017 16:11:56 Date Recorded Heart rate Provider Name an d Address Organization Details Last Updated DateTime 05/29/2017 66 /min Peggy Powell [facility] 05/29/2017 16:13:29 Date Recorded Body height Provider Name an d Address Organization Details Last Updated DateTime 11/18/2017 167.64 [facility] 11/18/2017 15:34:10 Date Recorded Body mass index (BMI) Body weight Provider Name and Address Organization Details Last Updated DateTime 11/18/2017 21.6 kg/m2 69923.38 g [facility] 11/18/2017 15:34:16 Date Recorded Heart rate Provider Name an d Address Organization Details Last Updated DateTime 11/18/2017 55 /min [facility] 11/18/2017 15:34:36 Date Recorded Body height Provider Name an d Address Organization Details Last Updated DateTime 09/04/2018 167.64 cm An Zayas [place] [facility] 09/04/2018 12:16:47 Date Recorded Body mass index (BMI) Body weight Provider Name and Address Organization Details Last Updated DateTime 09/04/2018 22 kg/m2 96881.56 g An Mera bri [facility] 09/04/2018 12:17:03 Date Recorded Heart rate Provider Name an d Address Organization Details Last Updated DateTime 09/04/2018 60 /min An pino [facility] 09/04/2018 12:17:12 Date Recorded Oxygen saturation Oxygen saturation in Arterial blood by Pulse oximetry Provider Name and Address Organization Details Last Updated DateTime 09/04/2018 97 % 97 % An FATIM[facility] 09/04/2018 12:17:15 Date Recorded Body height Provider Name an d Address Organization Details Last Updated DateTime 03/12/2019 167.64 cm Leatha [facility] 03/12/2019 12:50:27 Date Recorded Body mass index (BMI) Body weight Provider Name and Address Organization Details Last Updated DateTime 03/12/2019 21.5 kg/m2 33759.79 g Leatha Tan [facility] 03/12/2019 12:50:32 Date Recorded Heart rate Provider Name an d Address Organization Details Last Updated DateTime 03/12/2019 95 /min Leatha [facility] 03/12/2019 12:50:38 Date Recorded Oxygen saturation Oxygen saturation in Arterial blood by Pulse oximetry Provider Name and Address Organization Details Last Updated DateTime 03/12/2019 98 % 98 % Leatha Tan [facility] 03/12/2019 12:50:40 Date Recorded Body height Provider Name an d Address Organization Details Last Updated DateTime 02/04/2020 167.64 cm An pino [facility] 02/04/2020 13:00:12 Date Recorded Systolic blood pressure Diastolic blood pressure Provider Name and Address Organization Details Last Updated DateTime 05/29/2017 120 mm[Hg] 80 mm[Hg] Peggy [facility] 05/29/2017 16:13:15 Date Recorded Systolic blood pressure Diastolic blood pressure Provider Name and Address Organization Details Last Updated DateTime 11/18/2017 130 mm[Hg] 82 mm[Hg] Peggy [facility] 11/18/2017 15:34:33 Date Recorded Systolic blood pressure Diastolic blood pressure Provider Name and Address Organization Details Last Updated DateTime 09/04/2018 122 mm[Hg] 90 mm[Hg] An [facility] 09/04/2018 12:17:09 Date Recorded Systolic blood pressure Diastolic blood pressure Provider Name and Address Organization Details Last Updated DateTime 03/12/2019 124 mm[Hg] 60 mm[Hg] Leatha Buckley [facility] 03/12/2019 12:50:35 Social History Question Answer Notes LastModified by Organizat ion Details LastModified Time Tobacco Smoking Status Never Smoker [facility] 08/13/2016 14:19:58 Do You Have An Advance Directive? No Information n ot available 08/13/2016 What Is Your Level Of Alcohol Consumption? Occasional 1 Drink A Week Information not available 08/13/2016 Education 2 Year College Degree AA Information not available 08/13/2016 How Many Years Have You Used Illicit Or Recreational Drugs? 0 Information not available 08/13/2016 Claustrophobia No Informatio n not available 08/13/2016 Marital Status Single Informatio n not available 08/13/2016 What Was The Date Of Your Most Recent Tobacco Screening? 03/12/2019 Information not available 03/26/2019 How Much Tobacco Do You Smoke? No Information not available 08/13/2016 How Many Years Have You Smoked Tobacco? 0 Information not available 08/13/2016 Sex: Unknown Functional Status None recorded. Mental Status None recorded. Family History Relationship Description Onset Age of this Age Resolved Age Notes LastModified by Organization Details LastModified Time Father Hypertensive disorder [email or web address] Not available 2015 14:19:02 Father Heart disease sbrogdon Not available 2015 14:19:35 Mother Hypertensive disorder sbrogdon Not available 2015 14:19:21 Mother Alzheimer's disease 85 [email or web address] Not available 2015 14:19:44 Medical History Condition Response Chronic Kidney Disease Y Hypertension Y NSAID use Y Past Encounters Encounter ID Performer Location Encounter Start Date Encounter Closed Date Diagnosis/Indication Diagnosis SNOMED-CT Code Diagnosis ICD10 Code Diagnosis Note [id number] [facility] [address] [place] [address] 03/26/2014 00:00:00 [id number] [facility] [address] [place] [address] 05/24/2014 00:00:00 [id number] MD [facility] [address] [place] [address] 08/13/2016 13:38:15 08/13/2016 14:40:33 Chronic kidney disease stage 3 520902226 N18.3 G3a/A1, without proteinuri a in associatio n with solitary R kidney/CAU and HTN.Cr stable. Essential hypertension 86622404 I10 controlled .recommend ACEI/ARB. Total nephrectomy 482663 003 Z90.5 s/p L nephrectom y for CAU at age 7. [id number] MD [facility] [address] [place] [address] 02/18/2017 16:27:32 02/18/2017 17:20:33 Chronic kidney disease stage 3 164062839 N18.3 G3a/A1, without proteinuri a in associatio n with solitary R kidney/CAU and HTN. Essential hypertension 86099036 I10 controlled .recommend ACEI/ARB. Total nephrectomy 565446 003 Z90.5 s/p L nephrectom y for CAU at age 7. [id number] MD [facility] [address] [place] [address] 05/29/2017 15:45:50 05/29/2017 16:39:59 Chronic kidney disease stage 3 232161845 N18.3 G3a/A1, without proteinuri a in associatio n with solitary R kidney/CAU and HTN. Essential hypertension 48713222 I10 controlled .recommend ACEI/ARB. Total nephrectomy 025227 003 Z90.5 s/p L nephrectom y for CAU at age 7. [id number] MD [facility] [address] [place] [address] 11/18/2017 15:20:10 11/18/2017 15:59:01 Chronic kidney disease stage 3 175218807 N18.3 G3a/A1.wit hout proteinuri a in associatio n with solitary R kidney/CAU and HTN. Essential hypertension 86955196 I10 controlled .stop Amlodipine .change to losartan 50mg qhs. Total nephrectomy 300925 003 Z90.5 s/p L nephrectom y for CAU at age 7. [id number] MD [facility] [address] [facility] [place] [address] 09/04/2018 11:50:46 09/04/2018 12:38:35 Chronic kidney disease stage 3 309408352 N18.3 G3a/A1.wit hout proteinuri a in associatio n with solitary R kidney/CAU and HTN.GFR stable Essential hypertension 39925195 I10 controlled .on Norvasc 2.5 mg .Stopped Losartan on his own 6 months ago .Daily BP checks Total nephrectomy 191137 003 Z90.5 s/p L nephrectom y for CAU at age 7. [id number] MD [facility] [address] [facility] [place] [address] 03/12/2019 12:41:48 03/12/2019 13:20:29 Chronic kidney disease stage 3 120547691 N18.3 G3a/A1.wit hout proteinuri a in associatio n with solitary R kidney/CAU and HTN.GFR stable is 44 today. Discussed with patient control his factors including avoiding NSAIDs and good control of hypertensi on. Hydration. Essential hypertension 92854894 I10 controlled .on Norvasc 2.5 mg .Stopped Losartan on his own 6 months ago .Daily BP checks Total nephrectomy 650026 003 Z90.5 s/p L nephrectom y for CAU at age 7. [id number] MD [facility]els [facility] Office [address] [facility] [place] [address] 02/04/2020 12:58:53 02/04/2020 14:35:10 Chronic kidney disease stage 3 209128619 N18.3 G3a/A1.wit hout proteinuri a in associatio n with solitary R kidney/CAU and HTN.GFR stable is 44 today. Discussed with patient control his factors including avoiding NSAIDs and good control of hypertensi on. Hydration. Discussed with her that he may have enlarged prostate. He will follow-up with urology. Essential hypertension 26992833 I10 controlled .on Norvasc 2.5 mg .Stopped Losartan on his own 6 months ago .Daily BP checks Total nephrectomy 669851 003 Z90.5 s/p L nephrectom y for CAU at age 7. Health Concerns Section Related Observation LastModified by Organization Detai ls LastModified Time None Recorded Concern Status LastModified by Organization Details LastModified Time None Recorded Advance Directives Directive N: Payers Encounter Date Sequence Insurance Name Policy Number Policy Bruno Covered Member ID Bruno Member ID Guarantor Name 05/29/2017 1 [employer] (MEDICARE) Jerry H Pfoutz [id number] Jerry H Pfoutz 11/18/2017 1 [employer] (MEDICARE) Jerry H Pfoutz [id number] Jerry H Pfoutz 09/04/2018 1 [employer] (MEDICARE) Jerry H Pfoutz [id number] Jerry H Pfoutz 03/12/2019 1 [employer] (MEDICARE) Jerry H Pfoutz [id number] 6 Jerry H Pfoutz 02/04/2020 1 [employer] (MEDICARE) Jerry H Pfoutz [id number] 6 Jerry H Pfoutz Notes Date Note Type Note Provider Name and Address Organization Details Recorded Time 05/29/2017 text/html 61 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 He required repeated dilatation almost yearly until about 10 years ago. He had history of hemorrhagic cystitis. He is followed by urology. 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 His baseline Cr was unknown. He was noted by his PCP to have Cr of 1.45 in 01/2014, which was elevated from previous level. He was therefore referred for further evaluation. He denies difficulty voiding, dysuria, gross hematuria. He underwent R shoulder surgery for an abscess in 01/2015. He underwent L knee arthroscopic surgery in 06/2016. US on 05/24/2017 showed R kidney 9.5cm. He is doing well. Josep Elliott MD [address] ,[address], [place], [address], [facility] [place] [facility], [facility] 05/29/2017 16:36:36 11/18/2017 text/html 62 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 He required repeated dilatation almost yearly until about 10 years ago. He had history of hemorrhagic cystitis. He is followed by urology. He had imperforated anus and underwent surgery as an . He is incontinent of feces. His baseline Cr was unknown. He was noted by his PCP to have Cr of 1.45 in 01/2014, which was elevated from previous level. He was therefore referred for further evaluation. He denies difficulty voiding, dysuria, gross hematuria. He underwent R shoulder surgery for an abscess in 01/2015. He underwent L knee arthroscopic surgery in 06/2016. US on 05/24/2017 showed R kidney 9.5cm. He is doing well. 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 He required repeated dilatation almost yearly until about 10 years ago. He had history of hemorrhagic cystitis. He is followed by urology. 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 His baseline Cr was unknown. He was noted by his PCP to have Cr of 1.45 in 01/2014, which was elevated from previous level. He was therefore referred for further evaluation.He denies difficulty voiding, dysuria, gross hematuria.US on 05/24/2017 showed R kidney 9.5cm. 09/04/18: has been stressed out . NO NSAIDS . stopped losartan several months ago . home BP 120-130/70-80 . on Norvasc 2.5 mg . 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 He required repeated dilatation almost yearly until about 10 years ago. He had history of hemorrhagic cystitis. He is followed by urology. He had imperforated anus and underwent surgery as an . He is incontinent of feces. His baseline Cr was unknown. He was noted by his PCP to have Cr of 1.45 in 01/2014, which was elevated from previous level. He was therefore referred for further evaluation.He denies difficulty voiding, dysuria, gross hematuria.US on 05/24/2017 showed R kidney 9.5cm. 09/04/18: has been stressed out . NO NSAIDS . stopped losartan several months ago . home BP 120-130/70-80 . on Norvasc 2.5 mg . no other complaints 03/12/2019. Patient has been doing okay health carr. However he has been stressed out about financial issues. His blood pressure is well controlled on amlodipine 2.5 mg daily. No other complaints. Nerissa Brooks MD [address], [place], [address], [facility] [place] [facility] 03/12/2019 15:11:42 02/04/2020 text/html This visit was conducted over the telephone with the patient's consent. 64 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 He required repeated dilatation almost yearly until about 10 years ago. He had history of hemorrhagic cystitis. He is followed by urology. 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 His baseline Cr was unknown. He was noted by his PCP to have Cr of 1.45 in 01/2014, which was elevated from previous level. He was therefore referred for further evaluation.He denies difficulty voiding, dysuria, gross hematuria.US on 05/24/2017 showed R kidney 9.5cm. #1 hypertension. He was on losartan which he stopped. Currently on Norvasc 2.5 mg . Blood pressures were controlled #2 solitary kidney status post nephrectomy. 3. Urethral stenosis status post multiple dilations more than 15 years ago. He mentioned that urine flow is okay now however he noticed some dribbling Nerissa Brooks MD [address], [place], [address], [facility], [facility] 02/04/2020 16:19:29
--- OUTSIDE RECORDS SUMMARY | 2024-09-22 17:18 | XMS_ITS | Clinical Summary ---
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 30 g 02/04/20 24 Active fluticasone (50 mcg per actuation) [...] DAILY. 90 Tablet 2 07/23/20 24 Active clonazePAM (KLONOPIN) 0.5 mg tabletIndications: Generalized anxiety disorder with panic attacks TAKE 1 TABLET (0.5 MG) BY MOUTH ONCE DAILY and second dose 0.5mg (1 tab) IF NEEDED FOR ANXIETY. TO LAST AT LEAST 30 DAYS. 45 Tablet 5 09/08/19 25 Active clonazePAM (KLONOPIN) 0.5 mg tabletIndications: Generalized anxiety disorder with panic attacks TAKE 1 TABLET (0.5 MG) BY MOUTH ONCE DAILY and second dose 0.5mg (1 tab) IF NEEDED FOR ANXIETY. TO LAST AT LEAST 30 DAYS. 45 Tablet 5 02/18/20 24 025 Discontin ued(Reord er (E-cancel not sent)) Active Problems Problem Noted [...] Encounters Date Type Department Care Team Description 09/22/2024 Refill [facility] [address] [place] [address] Marquita Natalie Aliya, DO Refill Request (Amlodipine) 09/07/2024 [facility]ill [facility] [address] [facility] [address] [place] [phone] Kate Pugh DO Refill Request (clonazePAM (KLONOPIN) 0.5 mg tablet/) 08/10/2024 1:40 PM CHEMICAL ETCH OPERATOR Office Visit [facility] [address] [facility] [place] [address] Billy Sanon MD Consult (BPH without urinary obstruction /- H/O urethral stricture /Shaqra, Natalie Aliya, DO /) 08/10/2024 Travel 07/20/2024 Refill [facility] [address] [place] [address] Vaughnqra Natalie Aliya, DO Refill Request (Pravastatin) from Last 3 Months Immunizations Name Administration [...] is your housing situation today? 1 11/11/2023 Utilities Answer Date Recorded Do you have trouble paying f or utilities (for example, heat, electricity, water, phone)? 1 11/11/2023 Sex and Gender Information Value Date Recorded Sex Assigned at Not on file Legal Sex Male 6:11 AM CHEMICAL ETCH OPERATOR Gender Identity Not on file Sexual Orientation Not on file Occupation Industry Job Start Date Job End Date unemployed Not on file Not on file Not on file Not on file Not on file Not on file Not on file Obstetrics History Last Filed Vital Signs Vital Sign Reading Time Taken Comments Blood Pressure 117/78 08/10/2024 1:35 PM CHEMICAL ETCH OPERATOR Pulse 72 08/10/2024 1:35 PM CHEMICAL ETCH OPERATOR Temperature 36.7 C (98.1 F) 01/14/2023 9:46 AM CDT Respiratory Rate 18 01/14/2023 9:46 AM CDT Oxygen Saturation 98% 06/08/2024 10: 16 AM CDT Inhaled Oxygen Concentration - - Weight 71.1 kg (156 lb 12.8 oz) 08/10/2024 1:35 PM CHEMICAL ETCH OPERATOR Height 170.7 cm (5' 7.21) 02/04/2024 9:08 AM CD T Body Mass Index 24.41 02/04/2024 9:08 AM CDT Plan of Treatment Upcoming Encounters Date Type Department Care Team (Late st Contact Info) Description 11/09/2024 12:40 PM CDT Procedure Only [facility] [address] [place] [address] Billy Sanon MD [address] [place] [address] 12/02/2024 1:00 PM CDT Phone [facility] [address] [facility] [address] [place] [phone] Kate Pugh DO [address] [facility] [address] [place] [address] Health Maintenance Due Date Last Done Comments [...] 02/03/2029 02/04/2024, 06/22/2022, 01/20/2020 (Completed outside of [facility]), Additional history exists Tetanus booster 07/11/2029 07/11/2019, 04/16/2006 Colonoscopy through age 75 03/03/203003/03 (Completed outside of [facility]) Tdap Completed 07/11/2019, 04/16/2006 Hepatitis C screening for ag e 18-79 Completed 01/02/2022 Zoster (shingles) series for age 50+ Completed 08/21/2022, 03/26/2022 AAA screening age 65-74 Completed 09/24/2022 Procedures Procedure Name Priority Date/Time Associated Diagnosis Comments [place] LESLIE POST-VOIDING RESIDUAL URINE&/BLADDER CAP Routine 08/10/2024 12:00 AM CHEMICAL ETCH OPERATOR H/O urethral stricture Recurrent UTI LIPID PANEL W REFLEX MEASURED LDL Routine 02/04/2024 9:53 AM CDT Hyperlipidemia, unspecified hyperlipidemia type US ABD AORTA SCREENING Routine 09/24/2022 9:16 AM CHEMICAL ETCH OPERATOR Screening for AAA (aortic abdominal aneurysm) ANTI HCV Routine 01/02/2022 10:46 AM CDT Encounter for hepatitis C screening test for low risk patient from Last 3 Months or Most Recently Relevant to Health Maintenance Results * [place] LESLIE POST-VOIDING RESIDUAL URINE&/BLADDER CAP (08/10/2024 12:00 AM CHEMICAL ETCH OPERATOR) us Billy Sanon MD PB - URINARY SYSTEM SE RVICES Final Result * LIPID PANEL W REFLEX MEASURED LDL (02/04/2024 9:53 AM CDT) CHOLESTEROL,TOTAL 198 100 - 199 mg/dL 02/04/2024 6:48 PM CDT [facility] Comment: Cholesterol, Total Reference Ranges Desirable <200 mg/dL Borderline 200-239 mg/dL High >=240 mg/dL TRIGLYCERIDES 119 <150 mg/dL 02/04/2024 6:48 PM CDT [facility] HDL CHOLESTEROL 67 >40 mg/dL 6:48 PM CDT [facility] NON-HDL CHOLESTEROL 131 <145 mg/dl 02/04/2024 6:48 PM CDT [facility] CHOL/HDL RATIO 2.96 <4.50 02/04/2024 6:48 PM CDT [facility] LDL CHOLESTEROL 107 <=130 mg/dL 02/04/2024 6:48 PM CDT [facility] VLDL CHOLESTEROL 24 <=30 mg/dL 02/04/2024 6:48 PM CDT [facility] PROVIDER ORDERED STATUS RANDOM 02/04/2024 6:48 PM CDT [facility] Blood BLOOD SPECIMEN / Unknown Venipuncture / Unknown 02/04/2024 9:53 AM CDT 02/04/2024 9:53 AM CDT us Natalie uJárez DO CHEMISTRY Final Result [facility] [address] [place] [address], [place] * US ABD AORTA SCREENING [[id number]] (09/24/2022 9:16 AM CHEMICAL ETCH OPERATOR) Anatomical Region Laterality Modality Abdomen, AORTA Ultrasound 09/24/2022 10:4 1 AM CHEMICAL ETCH OPERATOR Impressions 09/24/2022 10:41 AM CHEMICAL ETCH OPERATOR Normal sonographic assessment of the abdominal aorta. Dictated by Colin Dumas MD @ Sep 24 2022 10:41AM (Electronically Signed) Narrative 09/24/2022 10:41 AM CHEMICAL ETCH OPERATOR For Patients: As a result of [...] Sep 24 2022 10:41AM (Electronically Signed) us Natalie Aliya Marquita DO US Final Result * ANTI HCV (01/02/2022 10:46 AM CDT) HEPATITIS C ANTIBODY Non-React asia Non-React asia 01/02/2022 6:27 PM CDT [facility] Comment:Antibodies to HCV no t detected; does not exclude the possibility of exposure to HCV. Blood BLOOD SPECIMEN / Unknown Venipuncture / Unknown 01/02/2022 10:46 AM CDT 01/02/2022 10:47 AM CDT Natalie Aliya Marquita DO SEND OUTS Final Result [facility] [address] [place] [address], [place] from Last 3 Months or Most Recently Relevant to Health Maintenance Insurance MEDICARE PB ONLY [facility] ATTN: [place] [address] MEDICARE PART B HB ONLY MEDICARE PART A HB ONLY Care Teams Circuit Breaker Mechanic Relationship Specialty Start Date End Date Natalie Juárez DO [facility] [place] [address] PCP - General Family Practice 03/01/21 Kate Pugh DO [address] [facility] [address] [place] [address] Psychiatry 02/04/23 Billy Sanon MD [address] [facility] [place] [address] Surgery - Urology 08/10/24
[2024-09-22] MEDS: 0.9 % SODIUM CHLORIDE 1000 ml 1,000 ML IV (17:25)
[2024-09-22 17:33] LABS: Lactate* 1.6 mmol/L (0.5-1.9)
--- NOTE | 2024-09-22 17:34 | ED_ITS ---
HPI - Nausea/Vomiting/Diarrhea General Date Seen: 09/22/24 Chief complaint: Diarrhea Stated complaint: Vomit and diahrea Time Seen by Provider: 09/22/24 16:19 Source: patient Mode of arrival: ambulatory Limitations: no limitations History of Present Illness HPI Narrative: Patient is a 69-year-old gentleman who presents here, he has acute on his chronic diarrhea worsening, takes for Imodium every day, but took 2 extra set this did not help his diarrhea he has a little bit nauseous but has not vomited has some mild stomach pain which she says isn't terribly atypical for him. Denies a fever denies any chills associated with this. 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 Sidney well yesterday denies any fevers chills, associated with this there is no blood in his stools, no overt dysuria but is a little worried as he only has 1 kidney that he may be developing some sort of kidney issues. Did not take anything for the pain, presents here for help MD elicited complaint: nausea, diarrhea and abdominal pain Onset (ago): hour(s) Description of diarrhea: semi-solid Associated nausea: Yes Associated abdominal pain: Yes Location of pain: LLQ Pain consistency: constant Severity: moderate Quality: cramping Exacerbating factors: none Relieving factors: none Context: history of abdominal surgery Associated symptoms: malaise, nausea/vomiting and decreased urine output Treatment prior to arrival: Imodium Related Data Home Medications ?Medication ?Instructions ?Recorded ?Confirmed clonazepam 0.5 mg tablet 0.5 mg PO DAILY 12/02/22 09/07/24 mirtazapine 7.5 mg tablet 7.5 mg PO QPM 12/02/22 09/07/24 pravastatin 40 mg tablet 40 mg PO DAILY 12/02/22 09/07/24 amlodipine 5 mg tablet 5 mg PO DAILY 03/11/23 09/07/24 aspirin 81 mg tablet,delayed 81 mg PO DAILY 09/06/23 04/06/24 release (Adult Aspirin Regimen) Previous Rx's ?Medication ?Instructions ?Recorded pantoprazole 20 mg tablet,delayed 20 mg PO DAILY #20 tabs 10/01/23 release (Protonix) ciprofloxacin HCl 500 mg tablet 500 mg PO BID #10 tabs 09/22/24 metronidazole 500 mg tablet 500 mg PO BID 7 days #14 tabs 09/22/24 Allergies Allergy/AdvReac Type Severity Reaction Status Date / Time No Known Drug Allergies Allergy Verified 09/22/24 19:06 Review of Systems Status of ROS: Reports: 10 or more systems reviewed and unremarkable except as noted in History and below GI: Reports: nausea PFSH PFSH Social History Smoking Status: Never smoker Do you use any of these nicotine containing products: None How often do you have a drink containing alcohol: never How often do you have six or more drinks on one occasion: Never AUDIT-C Alcohol total score: 0 Non-prescribed substance use: denies use service: No Exam Narrative: Exam Narrative: On examination room 4 he is in no apparent distress he is pleasant alert speaking to me normally, vital signs are reviewed he has a little bit tachycardic, pupils equal round reactive to light there is no scleral icterus redness is TMs are normal his oropharynx is normal his neck is supple full range of motion, absence of meningismus chest is good air entry bilaterally with no wheezing crackles noted his heart sounds are normal. Abdomen shows scar from previous surgeries bowel sounds are quiet, is a little bit tender in the left lower quadrant on palpation, but no localized peritoneal signs or rigidity. No CVA tenderness normal male genitalia moves all extremities independently and well. No masses and no hernias. Const: Vital Signs, click to edit/add: Vital Signs - 24 hr 09/22/24 16:24 09/22/24 19:58 Temperature 98.2 F Pulse Rate [Pulse Oximeter] 118 H 101 H Respiratory Rate 16 18 Blood Pressure [Ri ght Upper Arm] 120/75 120/80 Pulse Oximetry 96 95 Oxygen Delivery Me thod Room Air Room Air Documenting provider has reviewed patient's vital signs: yes Course Course ED Course: CTs done of his abdomen and pelvis is shows a very large bladder, patient then tried to void and postvoid residual was 999 mL, I explained to him that he is retaining urine, and we will do catheterization. Head will I reviewed the CT scan with our general surgeon, and then I reviewed with the radiologist who read it . He thought that this can be some from some irritation of his rectum, some localized proctitis, but also could be from a fatty tumor he doubt very much that this is malignant, I then and talk to the patient, he does have a colorectal surgeon that he sees in [place]. I do recommend that he take a copy of the report along with the CT scan and follow up with his colorectal surgeon, he last had a colonoscopy in 2019. We will also start him on some antibiotics, some Cipro and Flagyl, cause of the level proctitis, he has I warned him and have will have him stop using the Imodium, he should also stop disimpact himself which I think is causing the localized irritation also. Vital Signs Vital signs: Initial Vital Signs Temperature 98.2 F 09/22/24 16:24 Temperature Source Oral 09/22/24 16:24 Pulse Rate 118 H 09/22/24 16:24 Respiratory Rate 16 09/22/24 16:24 Blood Pressure 120/75 09/22/24 16:24 Blood Pressure Mean 90 09/22/24 16:24 Blood Pressure Position Sitting 09/22/24 16:24 Pulse Oximetry 96 09/22/24 16:24 Oxygen Delivery Method Room Air 09/22/24 16:24 Vital Signs Temperature 98.2 F 09/22/24 16:24 Pulse Rate 118 H 09/22/24 16:24 Respiratory Rate 16 09/22/24 16:24 Blood Pressure 120/75 09/22/24 16:24 Pulse Oximetry 96 09/22/24 16:24 Oxygen Delivery Method Room Air 09/22/24 16:24 Temperature 98.2 F 09/22/24 16:24 Pulse Rate 101 H 09/22/24 19:58 Respiratory Rate 18 09/22/24 19:58 Blood Pressure 120/80 09/22/24 19:58 Pulse Oximetry 95 09/22/24 19:58 Oxygen Delivery Method Room Air 09/22/24 19:58 Medications Administered Medications: Generic Name Dose Route Start Last Admin Trade Name Freq PRN Reason Stop Dose Admin Lidocaine HCl 6 ml 09/22/24 19:29 09/22/24 19:41 Lidocaine Hcl 2 % Jelly (Top) Sterile UR 6 ml ONCE PRN Administration Discontinued Medications Generic Name Dose Route Start Last Admin Trade Name Freq PRN Reason Stop Dose Admin Sodium Chloride 1,000 mls @ 1,000 mls/hr 09/22/24 17:15 09/22/24 18:14 0.9 % Sodium Chloride 1000 Ml IV 09/22/24 18:14 Infused .Q1H WILLIAMS Infusion MDM - Nausea/Vomiting/Diarrhea MDM Narrative Medical decision making narrative: During this evaluation of this patient I considered multiple differential diagnosis is which included the life-threatening such as appendicitis, aortic aneurysm, mesenteric ischemia, bowel perforation, volvulus, and bowel obstruction. Other differential diagnosis is include but are not limited to cholecystitis, pancreatitis, hepatitis, gastritis, GERD, diverticulitis, peptic ulcer disease, pyelonephritis/UTI, renal colic/stone, testicular torsion as well as other acute scrotal processes, inflammatory bowel disease, as well as other etiologies Heart did differentiated with his abdominal pain is new or old. I would like to try some laboratory working given some fluids, he does not want any medications here, he may end up doing a CT scan. Differential Diagnosis Differential diagnosis: Likely traveler's diarrhea, food poisoning, gastroenteritis, clostridium difficile infection, drug-induced nausea and vomiting and dehydration Medical Records Attestation: I reviewed the patient's medical records. Lab Data Attestation: I reviewed the patient's lab results. Labs: Lab Results 09/22/24 09/22/24 09/22/24 Range/Units 17:24 17:24 18:17 WBC 18.79 H (4.50-11.00) K/uL RBC 4.82 (4.30-5.90) m/uL Hgb 14.7 (13.5-17.5) gm/dL Hct 43.0 (37.0-53.0) % MCV 89 (80-100) fL MCH 31 (26-34) pg MCHC 34 (32-36) gm/dL RDW Coeff of Barbara 12.9 (11.5-15.5) % Plt Count 237 (140-440) K/uL Neut % (Auto) 86.6 H (42.0-72.0) % Lymph % (Auto) 4.6 L (20-44) % [place] % (Auto) 8.5 (0.0-11.0) % Eos % (Auto) 0.0 (0.0-7.0) % Baso % (Auto) 0.1 (0.0-3.0) % Neut # (Auto) 16.30 H (1.7-7.0) K/uL Lymph # (Auto) 0.90 (0.90-2.90) K/uL N[place] # (Auto) 1.60 H (0.00-0.90) K/UL Eos # (Auto) 0.00 (0.00-0.50) K/uL Baso # (Auto) 0.00 (0.00-0.30) K/uL Abs Immat Gran (auto) 0.00 (0.00-0.30) K/uL Imm/Tot Granulo (auto) 0.2 % Sodium 133 L (135-149) mmol/L Potassium 3.6 (3.6-5.1) mmol/L Chloride 100 (96-114) mmol/L Carbon Dioxide 23 (20-32) mmol/L Anion Gap 10 (7-15) mEq/L BUN 26 (7-30) mg/dL Creatinine 1.4 (0.5-1.5) mg/dL Estimated GFR 55 ml/min Glucose 117 H (60-115) mg/dL Lactate 1.6 (0.5-1.9) mmol/L Calcium 8.8 (8.4-10.6) mg/dL Total Bilirubin 1.0 (0.1-1.5) mg/dL Direct Bilirubin 0.3 (0.0-0.5) mg/dL AST 32 (12-35) U/L ALT 23 (4-50) U/L Alkaline Phosphatase 44 (40-150) U/L C-Reactive Protein 0.7 Cancelled (0.5-1.0) mg/dL Total Protein 7.4 (6.0-8.3) g/dL Albumin 4.4 (3.3-5.0) g/dL Lipase 56 (23-300) U/L Procalcitonin 0.20 (<0.50) ng/mL Urine Color Yellow (Yellow) Urine Appearance Clear (Clear) Urine pH 6.0 (5.0-8.5) Ur Specific Elizabeth 1.010 (1.000-1.030) Urine Protein Negative (Negative) Urine Glucose (UA) Negative (Negative) Urine Ketones Negative (Negative) Urine Blood Negative (Negative) Urine Nitrite Negative (Negative) Urine Bilirubin Negative (Negative) Urine Urobilinogen 0.2 (0.2-1.0) Ur Leukocyte Esterase Negative (Negative) Urine RBC 0-2 (0-2) Urine WBC 0-2 (0-5) Ur Squamous Epith Cells None (None-Few) Urine Bacteria None (None) SARS-CoV-2 (PCR) (Negative) Influenza Type A (PCR) (Negative) Influenza Type B (PCR) (Negative) RSV (PCR) (Negative) 09/22/24 Range/Units Unknown WBC (4.50-11.00) K/uL RBC (4.30-5.90) m/uL Hgb (13.5-17.5) gm/dL Hct (37.0-53.0) % MCV (80-100) fL MCH (26-34) pg MCHC (32-36) gm/dL RDW Coeff of Barbara (11.5-15.5) % Plt Count (140-440) K/uL Neut % (Auto) (42.0-72.0) % Lymph % (Auto) (20-44) % [place] % (Auto) (0.0-11.0) % Eos % (Auto) (0.0-7.0) % Baso % (Auto) (0.0-3.0) % Neut # (Auto) (1.7-7.0) K/uL Lymph # (Auto) (0.90-2.90) K/uL [place] # (Auto) (0.00-0.90) K/UL Eos # (Auto) (0.00-0.50) K/uL Baso # (Auto) (0.00-0.30) K/uL Abs Immat Gran (auto) (0.00-0.30) K/uL Imm/Tot Granulo (auto) % Sodium (135-149) mmol/L Potassium (3.6-5.1) mmol/L Chloride (96-114) mmol/L Carbon Dioxide (20-32) mmol/L Anion Gap (7-15) mEq/L BUN (7-30) mg/dL Creatinine (0.5-1.5) mg/dL Estimated GFR ml/min Glucose (60-115) mg/dL Lactate (0.5-1.9) mmol/L Calcium (8.4-10.6) mg/dL Total Bilirubin (0.1-1.5) mg/dL Direct Bilirubin (0.0-0.5) mg/dL AST (12-35) U/L ALT (4-50) U/L Alkaline Phosphatase (40-150) U/L C-Reactive Protein (0.5-1.0) mg/dL Total Protein (6.0-8.3) g/dL Albumin (3.3-5.0) g/dL Lipase (23-300) U/L Procalcitonin (<0.50) ng/mL Urine Color (Yellow) Urine Appearance (Clear) Urine pH (5.0-8.5) Ur Specific Elizabeth (1.000-1.030) Urine Protein (Negative) Urine Glucose (UA) (Negative) Urine Ketones (Negative) Urine Blood (Negative) Urine Nitrite (Negative) Urine Bilirubin (Negative) Urine Urobilinogen (0.2-1.0) Ur Leukocyte Esterase (Negative) Urine RBC (0-2) Urine WBC (0-5) Ur Squamous Epith Cells (None-Few) Urine Bacteria (None) SARS-CoV-2 (PCR) Negative SARS-CoV-2 (Negative) Influenza Type A (PCR) Negative PCR FLU A (Negative) Influenza Type B (PCR) Negative PCR FLU B (Negative) RSV (PCR) Negative PCR RSV (Negative) Imaging Data CT scan - abdomen: Attestation: I have reviewed the pertinent imaging results. Radiologist's impression: [place] [address] Diagnostic Imaging Report Patient: Jerry Ballesteros MR#: [id number] : 1955 Acct:[id number] Loc: ED Service Date: 09/22/[address]: Ordering Physician: Ubaldo Brown M.D. Date of Service: 09/22/24 Procedure(s): CT abdomen pelvis w con Accession Number(s): [id number] cc: Ubaldo Brown M.D.; Natalie Juárez D.O.~ For Patients: As a result of the Century Cures Act, medical imaging exams and procedure reports are released immediately into your electronic medical record. You may view this report before your referring provider. If you have questions, please contact your health care provider. INDICATION: Left lower quadrant pain. TECHNIQUE: CT abdomen and pelvis acquired with 79 cc of Isovue 370 IV contrast. COMPARISON: CT abdomen and pelvis 03/31/2024. FINDINGS: Lower chest: Unremarkable. Liver: Unremarkable. Normal in size and attenuation. No suspicious masses. Gallbladder and bile ducts: Unremarkable. No stones or inflammation. No biliary dilatation. Pancreas: Unremarkable. No mass or inflammation. Spleen: Unremarkable. Normal in size. No masses. Adrenal glands: Unremarkable. No nodules. Kidneys: Prior left nephrectomy. Focal cortical scarring within the right kidney. No hydronephrosis, stone, or suspicious mass. GI tract: [id number] colonic stool burden. Mild mural thickening of the distal rectum and anus without significant adjacent inflammatory stranding. No bowel obstruction. The appendix is not visualized. No evidence for appendicitis. Vasculature: Normal caliber abdominal aorta with mild atherosclerotic calcification. Mesenteric arteries are patent. Lymph nodes: No lymphadenopathy. Peritoneum/Abdominal Wall: Unchanged fusiform fatty mass lesion along the left perianal region measuring 2.7 x 1.3 cm with mass effect and rightward displacement of the anus. There is mild mural thickening of the distal rectum and anus in this region. No significant adjacent inflammatory stranding. Pelvis: Unremarkable. Bones: Unremarkable for age. IMPRESSION: 1. Unchanged fusiform fatty mass lesion along the left perianal region measuring 2.7 x 1.3 cm with mass effect and rightward displacement of the anus. This could represent a small ischial rectal hernia or a lipoma. 2. Mild mural thickening of the distal rectum and anus in this region, may be reactive to the mass effect from the fatty mass lesion described above; however, proctitis could appear similar. 3. No other acute findings within the abdomen and pelvis. Moderate to large colonic stool burden. Please note that all CT scans at this facility use dose modulation, iterative reconstruction, and/or weight-based dosing when appropriate to reduce radiation dose to as low as reasonably achievable. Dictated by Abhijit Ortiz MD @ 09/22/2024 7:43:24 PM (Electronically Signed) Discharge Plan Discharge Clinical Impression: Acute urinary retention, Colitis, Rectal mass, Fecal retention, Diarrhea Patient Disposition: Home w/ Parent or Adult Condition: Improved Instructions: Urinary Retention in Men (ED), Acute Diarrhea (ED), Rectal Pain (ED) Additional Instructions: Home rest medications as directed, need to follow-up with your colorectal doctor in [place],, there is the left-sided area at your rectum, which may be a fatty tumor, I discussed this with our surgeon who feels that follow-up with your colorectal surgeon would be good. I also think there is evidence of a large stool burden, which possibly is causing your retention of urine we will leave the catheter in for the next couple days, follow-up with primary care for catheter removal. I do suggest taking the antibiotics as directed. Return here if increasing abdominal pain fevers chills or other issues Avoidance of your Imodium is suggested is there is lots of stool No alcohol with antibiotics Activity Level: Light activity Discharge Diet: Regular Prescriptions: New ciprofloxacin HCl 500 mg tablet 500 mg PO BID Qty: 10 0RF metronidazole 500 mg tablet 500 mg PO BID 7 Days Qty: 14 0RF No Action pravastatin 40 mg tablet 40 mg PO DAILY clonazepam 0.5 mg tablet 0.5 mg PO DAILY mirtazapine 7.5 mg tablet 7.5 mg PO QPM aspirin [Adult Aspirin Regimen] 81 mg tablet,delayed release (DR/EC) 81 mg PO DAILY pantoprazole [Protonix] 20 mg tablet,delayed release (DR/EC) 20 mg PO DAILY Qty: 20 2RF amlodipine 5 mg tablet 5 mg PO DAILY Patient Comments: TAKE 1 TABLET (5 MG) BY MOUTH ONCE DAILY. Follow Up/Referrals: Natalie Juárez DO [Primary Care Provider] - Stand Alone Forms: [employer] Info Instructions
[2024-09-22 17:47] LABS: Basophils Percent Auto 0.1 % (0.0-3.0); Hemoglobin* 14.7 gm/dL (13.5-17.5); Immature Granulocytes Pct Auto 0.2 %; Lymphocytes Percent Auto 4.6 % (20-44); Mean Corpuscular HGB Conc 34 gm/dL (32-36); Mean Corpuscular Hemoglobin 31 pg (26-34); Mean Corpuscular Volume 89 fL (80-100); Monocytes Percent Auto 8.5 % (0.0-11.0); Neutrophils Percent Auto 86.6 % (42.0-72.0); Platelet Count* 237 K/uL (140-440); RDW Coefficient of Variation % 12.9 % (11.5-15.5); Red Blood Count 4.82 m/uL (4.30-5.90); White Blood Count* 18.79 K/uL (4.50-11.00)
[2024-09-22 18:03] LABS: Slide Review Reflex No
[2024-09-22 18:04] LABS: Albumin* 4.4 g/dL (3.3-5.0); Chloride* 100 mmol/L (96-114); Sodium* 133 mmol/L (135-149)
[2024-09-22 18:05] LABS: Potassium* 3.6 mmol/L (3.6-5.1)
[2024-09-22 18:07] LABS: Alkaline Phosphatase* 44 U/L (40-150); Anion Gap 10 mEq/L (7-15); Aspartate Amino Transferase* 32 U/L (12-35); Bilirubin Direct* 0.3 mg/dL (0.0-0.5); Blood Urea Nitrogen* 26 mg/dL (7-30); Carbon Dioxide* 23 mmol/L (20-32); Creatinine* 1.4 mg/dL (0.5-1.5); Estimated Glomerular Filt Rate 55 ml/min; Total Protein* 7.4 g/dL (6.0-8.3)
[2024-09-22 18:08] LABS: Alanine Aminotransferase* 23 U/L (4-50); Calcium* 8.8 mg/dL (8.4-10.6); Glucose* 117 mg/dL (60-115); Lipase* 56 U/L (23-300)
[2024-09-22 18:10] LABS: C Reactive Protein* 0.7 mg/dL (0.5-1.0)
[2024-09-22 18:39] LABS: Appearance Urine Clear (Clear); Bilirubin Urine Negative (Negative); Blood Urine Negative (Negative); Color Urine Yellow (Yellow); Glucose Urine Negative (Negative); Ketones Urine Negative (Negative); Leukocyte Esterase Urine Negative (Negative); Nitrite Urine Negative (Negative); Protein Urine Negative (Negative); Urobilinogen Urine 0.2 (0.2-1.0)
--- NOTE | 2024-09-22 18:43 | CRLHL7_ITS ---
For Patients: As a result of the Century Cures Act, medical imaging exams and procedure reports are released immediately into your electronic medical record. You may view this report before your referring provider. If you have questions, please contact your health care provider. INDICATION: Left lower quadrant pain. TECHNIQUE: CT abdomen and pelvis acquired with 79 cc of Isovue 370 IV contrast. COMPARISON: CT abdomen and pelvis 03/31/2024. FINDINGS: Lower chest: Unremarkable. Liver: Unremarkable. Normal in size and attenuation. No suspicious masses. Gallbladder and bile ducts: Unremarkable. No stones or inflammation. No biliary dilatation. Pancreas: Unremarkable. No mass or inflammation. Spleen: Unremarkable. Normal in size. No masses. Adrenal glands: Unremarkable. No nodules. Kidneys: Prior left nephrectomy. Focal cortical scarring within the right kidney. No hydronephrosis, stone, or suspicious mass. GI tract: [id number] colonic stool burden. Mild mural thickening of the distal rectum and anus without significant adjacent inflammatory stranding. No bowel obstruction. The appendix is not visualized. No evidence for appendicitis. Vasculature: Normal caliber abdominal aorta with mild atherosclerotic calcification. Mesenteric arteries are patent. Lymph nodes: No lymphadenopathy. Peritoneum/Abdominal Wall: Unchanged fusiform fatty mass lesion along the left perianal region measuring 2.7 x 1.3 cm with mass effect and rightward displacement of the anus. There is mild mural thickening of the distal rectum and anus in this region. No significant adjacent inflammatory stranding. Pelvis: Unremarkable. Bones: Unremarkable for age. IMPRESSION: 1. Unchanged fusiform fatty mass lesion along the left perianal region measuring 2.7 x 1.3 cm with mass effect and rightward displacement of the anus. This could represent a small ischial rectal hernia or a lipoma. 2. Mild mural thickening of the distal rectum and anus in this region, may be reactive to the mass effect from the fatty mass lesion described above; however, proctitis could appear similar. 3. No other acute findings within the abdomen and pelvis. Moderate to large colonic stool burden. Please note that all CT scans at this facility use dose modulation, iterative reconstruction, and/or weight-based dosing when appropriate to reduce radiation dose to as low as reasonably achievable. Dictated by Abhijit Ortiz MD @ 09/22/2024 7:43:24 PM (Electronically Signed)
[2024-09-22 18:49] LABS: RBC Urine 0-2 (0-2); WBC Urine 0-2 (0-5)
[2024-09-22] MEDS: lidocaine HCL 2 % JELLY (TOP) STERILE 6 ML UR (19:41)
--- NOTE | 2024-09-22 19:54 | ED.NURSE ---
Andre placed and 850cc urine obtained.
[2024-09-22 19:58] VITALS: BP 120/80; PULSE 101; RESP 18; O2SAT 95
[2024-09-22] MEDS: CIPROFLOXACIN 500 MG TABLET PO (21:10)
[2024-09-22] MEDS: metroNIDAZOLE 500 MG TABLET PO (21:10)
== END 2024-09-22 22:00 | disposition home or self-care (01) ==
PROVIDERS: Family Medicine; Emergency Provider Family Medicine; PCP Family Medicine
DX: R33.9 Retention of urine, unspecified (principal); K52.9 Noninfective gastroenteritis and colitis, unspecified; R19.5 Other fecal abnormalities
CPT/HCPCS: 36415; 51798; 74177; 80048; 80076; 81001; 83605; 83690; 84145; 85025; 86140; 87631; 99284; A9270; J7030; Q9967

== ENCOUNTER 2024-09-30 17:51 | Emergency (ER) | payer MEDICARE, SELFPAY ==
--- OUTSIDE RECORDS SUMMARY | 2024-09-30 17:54 | XMS_ITS | Clinical Summary ---
Author Organization [employer] [facility] Address [place], [place] [address] Care Team Providers Care Metal Door Assembler Name Role Phone Natalie Juárez DO Primary Care Provider Kate Pugh DO Unavailable [phone] Billy Sanon MD Unavailable Allergies No known [...] mouth once daily. 0 06/22/20 22 Active hydrocortisone 2.5% creamIndications: Anal irritation Apply topically to affected area(s) two times daily. 30 g 02/04/20 24 Active fluticasone (50 mcg per actuation) nasal solution (FLONASE)Indicati ons:Metallic taste Inhale 2 Sprays to both nostrils once daily. 16 g 1 03/10/20 24 Active loperamide (IMODIUM) 2 mg capsuleIndication s:Chronic diarrhea Take 2 capsules (4mg) orally with 1st loose stool, then 1 capsule (2mg) with other loose stools. Max 16 mg in 24 hrs. 270 Capsule 1 06/02/20 24 Active mirtazapine (REMERON) 7.5 mg tabletIndications :Insomnia, idiopathic Take 1 Tablet (7.5 mg) by mouth at bedtime. 90 Tablet 3 06/03/20 24 Active pravastatin (PRAVACHOL) 40 mg tabletIndications :Mixed hyperlipidemia TAKE 1 TABLET (40 MG) BY MOUTH ONCE DAILY. 90 Tablet 2 07/23/20 24 Active clonazePAM (KLONOPIN) 0.5 mg tabletIndications :Generalized anxiety disorder with panic attacks TAKE 1 TABLET (0.5 MG) BY MOUTH ONCE DAILY and second dose 0.5mg (1 tab) IF NEEDED FOR ANXIETY. TO LAST AT LEAST 30 DAYS. 45 Tablet 5 09/08/19 25 Active amLODIPine (NORVASC) 5 mg tabletIndications :Essential hypertension TAKE 1 TABLET (5 MG) BY MOUTH ONCE DAILY. 90 Tablet 2 09/23/19 25 Active tamsulosin 0.4 mg capsuleIndication s:Urinary retention Take 1 Capsule (0.4 mg) by mouth once daily after a meal. 7 Capsule 1 09/24/19 25 Active amLODIPine (NORVASC) 5 mg tabletIndications :Essential hypertension TAKE 1 TABLET (5 MG) BY MOUTH ONCE DAILY. 90 Tablet 2 01/09/20 24 2024 Discontinued clonazePAM (KLONOPIN) 0.5 mg tabletIndications :Generalized anxiety disorder with panic attacks TAKE 1 TABLET (0.5 MG) BY MOUTH ONCE DAILY and second dose 0.5mg (1 tab) IF NEEDED FOR ANXIETY. TO LAST AT LEAST 30 DAYS. 45 Tablet 5 02/18/20 24 2024 Discontinued(R eorder (E-cancel not sent)) Active Problems Problem Noted [...] Encounters Date Type Department Care Team Description 09/28/2024 Telephone [facility] [address] [facility] [place] [phone] Billy Sanon MD Questions 09/24/2024 8:45 AM DIRECTOR LIFE Office Visit [facility] [address] [place] [address] Abhijit Burns MD Follow Up (ER 09/22 [facility]/Catheter removal /diarrhea is still continuing ) 09/24/2024 Travel 09/23/2024 Telephone [facility] [address] [place] [address] Natalie Juárez, DO Appointment Request (FOR CATHETER REMOVAL) 09/22/2024 Refill [facility] [address] [place] [address] Natalie Juárez, DO Refill Request (Amlodipine) 09/07/2024 Refill [facility] [address] [facility] [address] [place] [phone] Kate Pugh, Refill Request (clonazePAM (KLONOPIN) 0.5 mg tablet/) 08/10/2024 1:40 PM DIRECTOR LIFE Office Visit [facility] [address] [place] [phone] Billy Sanon MD Consult (BPH without urinary obstruction /- H/O urethral stricture /Shaqra, Natalie Aliya, DO /) 08/10/2024 Travel 07/20/2024 Refill [facility] [address] [place] [address] Shaqra, Natalie Aliya, DO Refill Request (Pravastatin) from Last 3 Months Immunizations Name Administration Dates Next Due COVID-19 VACCINE SPIKEVAX (M ODERNA 50MCG/0.5ML) 12YO+ PFS 06/29/2024,06/12/2023 COVID-19 vaccine (Moderna 100mcg/0.5mL) PF, MDV 03/26/2022,08/17/2021,01/17/2021, 021 COVID-19 vaccine (Moderna 50mcg/0.5mL) 12YO+ BIVALENT PF, MDV 07/11/2022 Covid-19 Vaccine (Unspecified) 01/17/2021,2020 Hepatitis B (Adult) 12/18/2002 Influenza, IIV3 (Age >=3 years) 06/29/2024,06/14 Influenza, IIV4 06/12/2023 Tdap 07/11/2019,04/16/2006 Tuberculin (PPD) [...] on file Legal Sex Male 6:11 AM DIRECTOR LIFE Gender Identity Not on file Sexual Orientation Not on file Occupation Industry Job Start Date Job End Date unemployed Not on file Not on file Not on file Not on file Not on file Not on file Not on file Obstetrics History Last Filed Vital Signs Vital Sign Reading Time Taken Comments Blood Pressure 130/86 09/24/2024 8:43 AM DIRECTOR LIFE Pulse 78 09/24/2024 8:43 AM DIRECTOR LIFE Temperature 36.7 C (98.1 F) 01/14/2023 9:46 AM CDT Respiratory Rate 18 01/14/2023 9:46 AM CDT Oxygen Saturation 96% 09/24/2024 8:43 AM DIRECTOR LIFE Inhaled Oxygen Concentration - - Weight 71 kg (156 lb 9.6 oz) 09/24/2024 8:43 AM DIRECTOR LIFE Height 170.7 cm (5' 7.21) 02/04/2024 9:08 AM CD T Body Mass Index 24.38 02/04/2024 9:08 AM CDT Plan of Treatment Upcoming Encounters Date Type Department Care Team (Late st Contact Info) Description 11/09/2024 12:40 PM CDT Procedure Only [facility] [address] [facility] [place] [phone] Billy Sanon MD [address] [place] [address] 12/02/2024 1:00 PM CDT Phone Office Visit [facility] [address] [place] [phone] Kaet Pugh DO [address] [place], [place] [id number] Health Maintenance Due Date Last Done Comments Pneumococcal series for age 50+ (1 of 1 - PCV) 2007 RSV vaccine for adults or (1 - Risk 60-74 years 1-dose series) 2017 BMI (ht and wt on same day) for age 18+ 02/03/2025 02/04/2024, 01/14/2023, 01/08/2023, Additional history exists Depression screening for age 12+ 02/03/2025 02/04/2024, 11/11/2023, 11/06/2023, Additional history exists Medicare Wellness for age 65+ 02/04/2025, 01/08/2023, 01/02/2022 Lipids for age 45-75 02/03/2029 02/04/2024, 06/22/2022, 01/20/2020 (Completed outside of [facility]), Additional history exists Tetanus booster 07/11/2029 07/11/2019, 04/16/2006 Colonoscopy through age 75 03/03/203003/03 (Completed outside of [facility]) Tdap Completed 07/11/2019, 04/16/2006 Hepatitis C screening for ag e 18-79 Completed 01/02/2022 Zoster (shingles) series for age 50+ Completed 08/21/2022, 03/26/2022 AAA screening age 65-74 Completed 09/24/2022 COVID-19 vaccine series Completed 06/29/20 24, 06/12/2023, 07/11/2022, Additional history exists Influenza for age 65+ Completed 06/29/2024 , 06/12/2023, 06/14/2008 Procedures Procedure Name Priority Date/Time Associated Diagnosis Comments SC LESLIE POST-VOIDING RESIDUAL URINE&/BLADDER CAP Routine 08/10/2024 12:00 AM DIRECTOR LIFE H/O urethral stricture Recurrent UTI LIPID PANEL W REFLEX MEASURED LDL Routine 02/04/2024 9:53 AM CDT Hyperlipidemia, unspecified hyperlipidemia type US ABD AORTA SCREENING Routine 09/24/2022 9:16 AM DIRECTOR LIFE Screening for AAA (aortic abdominal aneurysm) ANTI HCV Routine 01/02/2022 10:46 AM CDT Encounter for hepatitis C screening test for low risk patient from Last 3 Months or Most Recently Relevant to Health Maintenance Results * SC LESLIE POST-VOIDING RESIDUAL URINE&/BLADDER CAP (08/10/2024 12:00 AM DIRECTOR LIFE) Billy Sanon MD PB - URINARY SYSTEM SE RVICES Final Result * LIPID PANEL W REFLEX MEASURED LDL (02/04/2024 9:53 AM CDT) CHOLESTEROL,TOTAL 198 100 - 199 mg/dL 02/04/2024 6:48 PM CDT [facility] Comment: Cholesterol, Total Reference Ranges Desirable <200 mg/dL Borderline 200-239 mg/dL High >=240 mg/dL TRIGLYCERIDES 119 <150 mg/dL 02/04/2024 6:48 PM CDT [facility] HDL CHOLESTEROL 67 >40 mg/dL 6:48 PM CDT [facility] NON-HDL CHOLESTEROL 131 <145 mg/dl 02/04/2024 6:48 PM CDT [facility] CHOL/HDL RATIO 2.96 <4.50 02/04/2024 6:48 PM CDT [facility] LDL CHOLESTEROL 107 <=130 mg/dL 02/04/2024 6:48 PM CDT [facility] VLDL CHOLESTEROL 24 <=30 mg/dL 02/04/2024 6:48 PM CDT [facility] PROVIDER ORDERED STATUS RANDOM 02/04/2024 6:48 PM CDT [facility] Blood BLOOD SPECIMEN / Unknown Venipuncture / Unknown 02/04/2024 9:53 AM CDT 02/04/2024 9:53 AM CDT us Natalie Juárez DO CHEMISTRY Final Result [facility] [address] [place] [address], [place] * US ABD AORTA SCREENING [[id number]] (09/24/2022 9:16 AM DIRECTOR LIFE) Anatomical Region Laterality Modality Abdomen, AORTA Ultrasound 09/24/2022 10:4 1 AM DIRECTOR LIFE Impressions 09/24/2022 10:41 AM DIRECTOR LIFE Normal sonographic assessment of the abdominal aorta. Dictated by Colin Dumas MD @ Sep 24 2022 10:41AM (Electronically Signed) Narrative 09/24/2022 10:41 AM DIRECTOR LIFE For Patients: As a result of the [...] @ Sep 24 2022 10:41AM (Electronically Signed) [employer] Marquita GIRON US Final Result * ANTI HCV (01/02/2022 10:46 AM CDT) HEPATITIS C ANTIBODY Non-React asia Non-React asia 01/02/2022 6:27 PM CDT [facility] Comment:Antibodies to HCV no t detected; does not exclude the possibility of exposure to HCV. Blood BLOOD SPECIMEN / Unknown Venipuncture / Unknown 01/02/2022 10:46 AM CDT 01/02/2022 10:47 AM CDT [employer] Aliya Vaughnqra DO SEND OUTS Final Result [facility] [address] [place] [address], [place] from Last 3 Months or Most Recently Relevant to Health Maintenance Insurance MEDICARE PB ONLY [facility] ATTN: SECOND [place] [address] MEDICARE PART B HB ONLY MEDICARE PART A HB ONLY Care Teams Metal Door Assembler Relationship Specialty Start Date End Date Natalie Juárez, DO [address] [place] [address] PCP - General Family Practice 03/01/21 Kate Pugh DO [address] [place] [address] Psychiatry 02/04/23 Billy Sanon MD [address] [facility] [place] [address] Surgery - Urology 08/10/24
--- OUTSIDE RECORDS SUMMARY | 2024-09-30 17:54 | XMS_ITS | CCD ---
Author Name Interface, [id number] [address] Organization [facility] [place] [address] Allergies and Adverse Reactions Reason for Visit Medications Problems Social History
--- OUTSIDE RECORDS SUMMARY | 2024-09-30 17:54 | XMS_ITS | CCD ---
Author Name Interface, [id number] lity Address [facility], [place] [address] Organization [facility] Address [facility], [place] [address] Allergies and Adverse Reactions Medication/Group Name Reaction [...]
--- OUTSIDE RECORDS SUMMARY | 2024-09-30 17:55 | XMS_ITS | Data Portability ---
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 [email or web address] Not available 02/04/2020 13:19:46 Plan of Treatment Reminders Order Date Submit Date Provider Last Modified By Organization Details Last Modified Time Details Appointments None recorded. Lab CMP, serum or plasma 2016 017 [facility], [address] [place], [place] [address]za, [address], [address], [place], [address], 8 19:46:50 magnesium, blood 2016 017 [facility], [address] [place], [place] [address]za, [address], [place], [address], 8 19:46:50 phosphorus , blood 2016 017 [facility], [address] [place], [place] [address]za, [employer], [address], [place], [address], 8 19:46:50 protein:cr eatinine ratio, urine 2016 017 [facility], [address], [address], [address], [place], [address], 8 19:46:50 CBC w/ auto diff 2016 017 [facility], [address], [address], [address], [place], [address], 8 19:46:50 urinalysis , dipstick, reflex micro 2016 017 [facility], [address], [address], [address], [place], [address], 8 19:46:50 uric acid, serum or plasma 2016 017 [facility], [address], [address], [address], [place], [address], 8 19:46:51 CMP, serum or plasma 2017 018 [facility], [address], [address], [address], [place], [address], 9 17:00:34 magnesium, blood 2017 018 [facility], [address], [address], [address], [place], [address], 8 20:07:04 phosphorus , blood 2017 018 [facility], [address], [address], [address], [place], [address], 8 20:07:04 protein:cr eatinine ratio, urine 2017 018 [facility], [address], [address], [address], [place], [address], 8 20:07:04 CBC w/ auto diff 2017 018 [facility], [address], [address], [place], [address], 9 16:56:21 uric acid, serum or plasma 2017 018 [facility], [address], [address], [address], [place], [address], 8 20:07:04 urinalysis complete, reflex culture 2017 018 [facility], [address], [address], [address], [place], [address], 9 16:56:21 urinalysis , dipstick, reflex micro 2017 018 [facility], [address], [address], [address], [place], [address], 8 20:07:04 magnesium, blood 2018 019 [facility], [address], [address], [address], [place], [address], 9 14:09:34 phosphorus , blood 2018 019 [facility], [address], [address], [address], [place], [address], 9 14:09:34 protein:cr eatinine ratio, urine 2018 019 [facility], [address], [address], [address], [place], [address], 9 18:56:10 uric acid, serum or plasma 2018 019 [facility], [address], [address], [address], [place], [address], 9 14:09:34 BMP, serum or plasma 2018 019 [facility], [address], [address], [address], [place], [address], 9 14:09:34 PTH (parathyro id hormone), intact, serum or plasma 2018 020 [facility], [address], [address], [address], [place], [address], 0 19:51:03 vitamin D, 25-hydroxy , total, serum 2018 020 [facility], [address], [address], [address], [place], [address], 0 19:51:03 CBC w/ auto diff 2018 020 [facility], [address], [address], [address], [place], [address], 0 19:51:03 magnesium, serum or plasma 2018 020 [facility], [address], [address], [address], [place], [address], 0 19:51:03 protein:cr eatinine ratio, urine 2018 020 [facility], [address], [address], [address], [place], [address], 0 19:51:03 uric acid, serum or plasma 2018 020 [facility], [address], [address], [address], [place], [address], 0 19:51:03 renal function panel, serum 2018 020 [facility], [address], [address], [address], [place], [address], 0 19:51:03 PTH (parathyro id hormone), intact, serum or plasma 2019 021 [facility], [address], [address], [address], [place], [address], 1 15:55:27 vitamin D, 25-hydroxy , total, serum 2019 021 [facility], [address], [address], [address], [place], [address], 1 15:55:27 CBC w/ auto diff 2019 021 [facility], [address], [address], [address], [place], [address], 1 13:57:47 magnesium, serum or plasma 2019 021 [facility], [address], [address], [address], [place], [address], 1 15:55:27 protein:cr eatinine ratio, urine 2019 021 [facility], [address], [address], [address], [place], [address], 1 15:55:27 uric acid, serum or plasma 2019 021 [facility], [address], [address], [address], [place], [address], 1 15:55:27 renal function panel, serum 2019 021 [facility], [address], [address], [address], [place], [address], 1 15:55:27 Referral None recorded. Procedures None recorded. Surgeries None recorded. Imaging None recorded. Medication Orders losartan 50 mg tablet [email or web address] [facility], [address] [place] [address], [place], [address], 9 12:17:21 Patient TargetsNo targets recorded. Patient InstructionsNo instructions recorded. Reason for Referral None Reported. Results Created Date Observation Date Name Description Value Unit Range Abnormal Flag Note LastModifiedBy Organization Detail LastModifiedTime 05/23/20 17 05/23/2017 lipid panel , serum color, urine straw Not Available [facility] [address], [address], [place], [address], 05/23/2017 17:03:45 05/23/20 17 05/23/2017 lipid panel , serum clarity, urine clear Not Available [facility] [address], [address], [place], [address], 05/23/2017 17:03:45 05/23/20 17 05/23/2017 lipid panel , serum pH, urine 1.006 Not Available [facility] [address], [address], [place], [address], 05/23/2017 17:03:45 05/23/20 17 05/23/2017 lipid panel , serum protein, urine negati ve Not Available [facility] [address], [address], [place], [address], 05/23/2017 17:03:45 05/23/20 17 05/23/2017 lipid panel , serum glucose, urine negati ve Not Available [facility] [address], [address], [place], [address], 05/23/2017 17:03:45 05/23/20 17 05/23/2017 lipid panel , serum ketones, urine negati ve Not Available [facility] [address], [address], [place], [address], 05/23/2017 17:03:45 05/23/20 17 05/23/2017 lipid panel , serum bilirubin, urine negati ve Not Available [facility] [address], [address], [place], [address], 05/23/2017 17:03:45 05/23/20 17 05/23/2017 lipid panel , serum blood, urine negati ve Not Available [facility] [address], [address], [place], [address], 05/23/2017 17:03:45 05/23/20 17 05/23/2017 lipid panel , serum nitrite, urine negati ve Not Available [facility] [address], [address], [place], [address], 05/23/2017 17:03:45 05/23/20 17 05/23/2017 lipid panel , serum leukocyte esterase negati ve Not Available [facility] [address], [address], [place], [address], 05/23/2017 17:03:45 05/23/20 17 05/23/2017 lipid panel , serum urobilinogen , urine <2.0 Not Available [facility] [address], [address], [place], [address], 05/23/2017 17:03:45 05/23/20 17 05/23/2017 lipid panel , serum protein, urine, random 9.8 Not Available [facility] [address], [address], [place], [address], 05/23/2017 17:03:45 05/23/20 17 05/23/2017 lipid panel , serum creatinine, urine, random 24.9 Not Available [facility] [address], [address], [place], [address], 05/23/2017 17:03:45 05/23/20 17 05/23/2017 lipid panel , serum HGB 14.7 Not Available [facility] [address], [address], [place], [address], 05/23/2017 17:03:45 05/23/20 17 05/23/2017 lipid panel , serum HCT 44.5 Not Available [facility] [address], [address], [place], [address], 05/23/2017 17:03:45 05/23/20 17 05/23/2017 lipid panel , serum WBC 4.5 Not Available [facility] [address], [address], [place], [address], 05/23/2017 17:03:45 05/23/20 17 05/23/2017 lipid panel , serum plt 212 Not Available [facility] [address], [address], [place], [address], 05/23/2017 17:03:45 05/23/20 17 05/23/2017 lipid panel , serum sodium, serum 137 Not Available [facility] [address], [address], [place], [address], 05/23/2017 17:03:45 05/23/20 17 05/23/2017 lipid panel , serum potassium, serum 3.5 Not Available [facility] [address], [address], [place], [address], 05/23/2017 17:03:45 05/23/20 17 05/23/2017 lipid panel , serum chloride, serum 99 Not Available [facility] [address], [address], [place], [address], 05/23/2017 17:03:45 05/23/20 17 05/23/2017 lipid panel , serum carbon dioxide 27 Not Available [facility] [address], [address], [place], [address], 05/23/2017 17:03:45 05/23/20 17 05/23/2017 lipid panel , serum calcium, serum 9.0 Not Available [facility] [address], [address], [place], [address], 05/23/2017 17:03:45 05/23/20 17 05/23/2017 lipid panel , serum glucose, serum 101 Not Available [facility] [address], [address], [place], [address], 05/23/2017 17:03:45 05/23/20 17 05/23/2017 lipid panel , serum BUN 24 Not Available [facility] [address], [address], [place], [address], 05/23/2017 17:03:45 05/23/20 17 05/23/2017 lipid panel , serum creatinine 1.60 Not Available [facility] [address], [address], [place], [address], 05/23/2017 17:03:45 05/23/20 17 05/23/2017 lipid panel , serum GFR 44 Not Available [facility] [address], [address], [place], [address], 05/23/2017 17:03:45 05/23/20 17 05/23/2017 lipid panel , serum bilirubin, total 0.5 Not Available [facility] [address] [facility] [address], [address], [place], [address], 05/23/2017 17:03:45 05/23/20 17 05/23/2017 lipid panel , serum alkaline phosphatase 43 Not Available [facility] [address] [facility] [address], [address], [place], [address], 05/23/2017 17:03:45 05/23/20 17 05/23/2017 lipid panel , serum albumin, serum 4.1 Not Available [facility] [address] [facility] [address], [address], [place], [address], 05/23/2017 17:03:45 05/23/20 17 05/23/2017 lipid panel , serum protein, total, serum 7.0 Not Available [facility] [place] [facility] [address] [facility] [address], [address], [place], [address], 05/23/2017 17:03:45 05/23/20 17 05/23/2017 lipid panel , serum magnesium 1.8 Not Available [facility] [address] [facility] [address], [address], [place], [address], 05/23/2017 17:03:45 05/23/20 17 05/23/2017 lipid panel , serum phosphorus 2.8 Not Available [facility] [address], [address], [place], [address], 05/23/2017 17:03:45 05/23/20 17 05/23/2017 lipid panel , serum uric acid 6.1 Not Available [facility] [address] [facility] [address], [address], [place], [address], 05/23/2017 17:03:45 05/23/20 17 05/23/2017 lipid panel , serum PSA, total 0.762 Not Available [facility] [address] [facility] [address], [address], [place], [address], 05/23/2017 17:03:45 05/23/20 17 05/23/2017 PSA, serum or plasm a color, urine straw Not Available [facility] [address], [place], [address], 05/23/2017 17:03:45 05/23/20 17 05/23/2017 PSA, serum or plasm a clarity, urine clear Not Available [facility] [address] [facility] [address], [place], [address], 05/23/2017 17:03:45 05/23/20 17 05/23/2017 PSA, serum or plasm a pH, urine 1.006 Not Available [facility] [address] [facility] [address], [place], [address], 05/23/2017 17:03:45 05/23/20 17 05/23/2017 PSA, serum or plasm a protein, urine negati ve Not Available [facility] [address] [facility] [address], [place], [address], 05/23/2017 17:03:45 05/23/20 17 05/23/2017 PSA, serum or plasm a glucose, urine negati ve Not Available [facility] [address] [facility] [address], [place], [address], 05/23/2017 17:03:45 05/23/20 17 05/23/2017 PSA, serum or plasm a ketones, urine negati ve Not Available [facility] [address] [facility] [address], [place], [address], 05/23/2017 17:03:45 05/23/20 17 05/23/2017 PSA, serum or plasm a bilirubin, urine negati ve Not Available [facility] [address] [facility] [address], [address], [place], [address], 05/23/2017 17:03:45 05/23/20 17 05/23/2017 PSA, serum or plasm a blood, urine negati ve Not Available [facility] [address] [facility] [address], [place], [address], 05/23/2017 17:03:45 05/23/20 17 05/23/2017 PSA, serum or plasm a nitrite, urine negati ve Not Available [facility] [address] [facility] [address], [place], [address], 05/23/2017 17:03:45 05/23/20 17 05/23/2017 PSA, serum or plasm a leukocyte esterase negati ve Not Available [facility] [address] [facility] [address], [place], [address], 05/23/2017 17:03:45 05/23/20 17 05/23/2017 PSA, serum or plasm a urobilinogen , urine <2.0 Not Available [facility] [address] [facility] [address], [place], [address], 05/23/2017 17:03:45 05/23/20 17 05/23/2017 PSA, serum or plasm a protein, urine, random 9.8 Not Available [facility] [address] [facility] [address], [address], [place], [address], 05/23/2017 17:03:45 05/23/20 17 05/23/2017 PSA, serum or plasm a creatinine, urine, random 24.9 Not Available [facility] [address] [facility] [address], [place], [address], 05/23/2017 17:03:45 05/23/20 17 05/23/2017 PSA, serum or plasm a HGB 14.7 Not Available [facility] [address] [facility] [address], [address], [place], [address], 05/23/2017 17:03:45 05/23/20 17 05/23/2017 PSA, serum or plasm a HCT 44.5 Not Available [facility] [address] [facility] [address], [place], [address], 05/23/2017 17:03:45 05/23/20 17 05/23/2017 PSA, serum or plasm a WBC 4.5 Not Available [facility] [address] [facility] [address], [place], [address], 05/23/2017 17:03:45 05/23/20 17 05/23/2017 PSA, serum or plasm a plt 212 Not Available [facility] [address] [facility] [address], [place], [address], 05/23/2017 17:03:45 05/23/20 17 05/23/2017 PSA, serum or plasm a sodium, serum 137 Not Available [facility] [address] [facility] [address], [place], [address], 05/23/2017 17:03:45 05/23/20 17 05/23/2017 PSA, serum or plasm a potassium, serum 3.5 Not Available [facility] [address] [facility] [address], [place], [address], 05/23/2017 17:03:45 05/23/20 17 05/23/2017 PSA, serum or plasm a chloride, serum 99 Not Available [facility] [address] [facility] [address], [place], [address], 05/23/2017 17:03:45 05/23/20 17 05/23/2017 PSA, serum or plasm a carbon dioxide 27 Not Available [facility] [address] [facility] [address], [address], [place], [address], 05/23/2017 17:03:45 05/23/20 17 05/23/2017 PSA, serum or plasm a calcium, serum 9.0 Not Available [facility] [address] [facility] [address], [place], [address], 05/23/2017 17:03:45 05/23/20 17 05/23/2017 PSA, serum or plasm a glucose, serum 101 Not Available [facility] [address] [facility] [address], [place], [address], 05/23/2017 17:03:45 05/23/20 17 05/23/2017 PSA, serum or plasm a BUN 24 Not Available [facility] [address] [facility] [address], [place], [address], 05/23/2017 17:03:45 05/23/20 17 05/23/2017 PSA, serum or plasm a creatinine 1.60 Not Available [facility] [address] [facility] [address], [place], [address], 05/23/2017 17:03:45 05/23/20 17 05/23/2017 PSA, serum or plasm a GFR 44 Not Available [facility] [address] [facility] [address], [place], [address], 05/23/2017 17:03:45 05/23/20 17 05/23/2017 PSA, serum or plasm a bilirubin, total 0.5 Not Available [facility] [address] [facility] [address], [place], [address], 05/23/2017 17:03:45 05/23/20 17 05/23/2017 PSA, serum or plasm a alkaline phosphatase 43 Not Available [facility] [address] [facility] [address], [address], [place], [address], 05/23/2017 17:03:45 05/23/20 17 05/23/2017 PSA, serum or plasm a albumin, serum 4.1 Not Available [address], [address], [place], [address], 05/23/2017 17:03:45 05/23/20 17 05/23/2017 PSA, serum or plasm a protein, total, serum 7.0 Not Available [address], [address], [place], [address], 05/23/2017 17:03:45 05/23/20 17 05/23/2017 PSA, serum or plasm a magnesium 1.8 Not Available [address], [address], [place], [address], 05/23/2017 17:03:45 05/23/20 17 05/23/2017 PSA, serum or plasm a phosphorus 2.8 Not Available [address], [address], [place], [address], 05/23/2017 17:03:45 05/23/20 17 05/23/2017 PSA, serum or plasm a uric acid 6.1 Not Available [address], [address], [place], [address], 05/23/2017 17:03:45 05/23/20 17 05/23/2017 PSA, serum or plasm a PSA, total 0.762 Not Available [address], [address], [place], [address], 05/23/2017 17:03:45 05/23/20 17 05/23/2017 uric acid, serum or plasm a color, urine straw Not Available [address], [address], [place], [address], 05/23/2017 17:03:45 05/23/20 17 05/23/2017 uric acid, serum or plasm a clarity, urine clear Not Available [address], [address], [place], [address], 05/23/2017 17:03:45 05/23/20 17 05/23/2017 uric acid, serum or plasm a pH, urine 1.006 Not Available [facility] [address], [address], [place], [address], 05/23/2017 17:03:45 05/23/20 17 05/23/2017 uric acid, serum or plasm a protein, urine negati ve Not Available [address], [address], [place], [address], 05/23/2017 17:03:45 05/23/20 17 05/23/2017 uric acid, serum or plasm a glucose, urine negati ve Not Available [address] [facility] [address], [address], [place], [address], 05/23/2017 17:03:45 05/23/20 17 05/23/2017 uric acid, serum or plasm a ketones, urine negati ve Not Available [facility] [address] [place] [address] [address], [address], [place], [address], 05/23/2017 17:03:45 05/23/20 17 05/23/2017 uric acid, serum or plasm a bilirubin, urine negati ve Not Available [address], [address], [place], [address], 05/23/2017 17:03:45 05/23/20 17 05/23/2017 uric acid, serum or plasm a blood, urine negati ve Not Available [facility] [address] [facility] [address], [address], [place], [address], 05/23/2017 17:03:45 05/23/20 17 05/23/2017 uric acid, serum or plasm a nitrite, urine negati ve Not Available [facility] [address] [facility] [address], [place], [address], 05/23/2017 17:03:45 05/23/20 17 05/23/2017 uric acid, serum or plasm a leukocyte esterase negati ve Not Available [facility] [address] [facility] [address], [address], [place], [address], 05/23/2017 17:03:45 05/23/20 17 05/23/2017 uric acid, serum or plasm a urobilinogen , urine <2.0 Not Available [facility] [address] [facility] [address], [place], [address], 05/23/2017 17:03:45 05/23/20 17 05/23/2017 uric acid, serum or plasm a protein, urine, random 9.8 Not Available [facility] [address] [facility] [address], [place], [address], 05/23/2017 17:03:45 05/23/20 17 05/23/2017 uric acid, serum or plasm a creatinine, urine, random 24.9 Not Available [facility] [address] [facility] [address], [place], [address], 05/23/2017 17:03:45 05/23/20 17 05/23/2017 uric acid, serum or plasm a HGB 14.7 Not Available [facility] [address] [facility] [address], [place], [address], 05/23/2017 17:03:45 05/23/20 17 05/23/2017 uric acid, serum or plasm a HCT 44.5 Not Available [facility] [address] [facility] [address], [address], [place], [address], 05/23/2017 17:03:45 05/23/20 17 05/23/2017 uric acid, serum or plasm a WBC 4.5 Not Available [facility] [address] [place] [address] [address], [address], [place], [address], 05/23/2017 17:03:45 05/23/20 17 05/23/2017 uric acid, serum or plasm a plt 212 Not Available [facility] [address] [facility] [address], [address], [place], [address], 05/23/2017 17:03:45 05/23/20 17 05/23/2017 uric acid, serum or plasm a sodium, serum 137 Not Available [address], [address], [place], [address], 05/23/2017 17:03:45 05/23/20 17 05/23/2017 uric acid, serum or plasm a potassium, serum 3.5 Not Available [address], [address], [place], [address], 05/23/2017 17:03:45 05/23/20 17 05/23/2017 uric acid, serum or plasm a chloride, serum 99 Not Available [address], [address], [place], [address], 05/23/2017 17:03:45 05/23/20 17 05/23/2017 uric acid, serum or plasm a carbon dioxide 27 Not Available [address], [address], [place], [address], 05/23/2017 17:03:45 05/23/20 17 05/23/2017 uric acid, serum or plasm a calcium, serum 9.0 Not Available [address], [address], [place] [place], [address], 05/23/2017 17:03:45 05/23/20 17 05/23/2017 uric acid, serum or plasm a glucose, serum 101 Not Available [facility] [address] [facility] [address], [place], [address], 05/23/2017 17:03:45 05/23/20 17 05/23/2017 uric acid, serum or plasm a BUN 24 Not Available [facility] [address] [facility] [address], [address], [place], [address], 05/23/2017 17:03:45 05/23/20 17 05/23/2017 uric acid, serum or plasm a creatinine 1.60 Not Available [facility] [address] [facility] [address], [address], [place], [address], 05/23/2017 17:03:45 05/23/20 17 05/23/2017 uric acid, serum or plasm a GFR 44 Not Available [facility] [address] [facility] [address], [address], [place], [address], 05/23/2017 17:03:45 05/23/20 17 05/23/2017 uric acid, serum or plasm a bilirubin, total 0.5 Not Available [facility] [address] [facility] [address], [address], [place], [address], 05/23/2017 17:03:45 05/23/20 17 05/23/2017 uric acid, serum or plasm a alkaline phosphatase 43 Not Available [facility] [address] [facility] [address], [address], [place], [address], 05/23/2017 17:03:45 05/23/20 17 05/23/2017 uric acid, serum or plasm a albumin, serum 4.1 Not Available [facility] [address] [facility] [address], [address], [place], [address], 05/23/2017 17:03:45 05/23/20 17 05/23/2017 uric acid, serum or plasm a protein, total, serum 7.0 Not Available [facility] [place] [facility] [address] [facility] [address], [address], [place], [address], 05/23/2017 17:03:45 05/23/20 17 05/23/2017 uric acid, serum or plasm a magnesium 1.8 Not Available [facility] [address] [facility] [address], [address], [place], [address], 05/23/2017 17:03:45 05/23/20 17 05/23/2017 uric acid, serum or plasm a phosphorus 2.8 Not Available [address], [address], [place], [address], 05/23/2017 17:03:45 05/23/20 17 05/23/2017 uric acid, serum or plasm a uric acid 6.1 Not Available [facility] [address] [facility] [address], [address], [place], [address], 05/23/2017 17:03:45 05/23/20 17 05/23/2017 uric acid, serum or plasm a PSA, total 0.762 Not Available [facility] [address] [facility] [address], [address], [place], [address], 05/23/2017 17:03:45 05/23/20 17 05/23/2017 phosp horus , blood color, urine straw Not Available [facility] [address] [facility] [address], [address], [place], [address], 05/23/2017 17:03:45 05/23/20 17 05/23/2017 phosp horus , blood clarity, urine clear Not Available [facility] [address] [facility] [address], [address], [place], [address], 05/23/2017 17:03:45 05/23/20 17 05/23/2017 phosp horus , blood pH, urine 1.006 Not Available [facility] [address], [address], [place], [address], 05/23/2017 17:03:45 05/23/20 17 05/23/2017 phosp horus , blood protein, urine negati ve Not Available [facility] [address], [address], [place], [address], 05/23/2017 17:03:45 05/23/20 17 05/23/2017 phosp horus , blood glucose, urine negati ve Not Available [facility] [address], [place], [address], 05/23/2017 17:03:45 05/23/20 17 05/23/2017 phosp horus , blood ketones, urine negati ve Not Available [facility] [address], [address], [place], [address], 05/23/2017 17:03:45 05/23/20 17 05/23/2017 phosp horus , blood bilirubin, urine negati ve Not Available [facility] [address], [place], [address], 05/23/2017 17:03:45 05/23/20 17 05/23/2017 phosp horus , blood blood, urine negati ve Not Available [facility] [address], [address], [place], [address], 05/23/2017 17:03:45 05/23/20 17 05/23/2017 phosp horus , blood nitrite, urine negati ve Not Available [facility] [address], [address], [place], [address], 05/23/2017 17:03:45 05/23/20 17 05/23/2017 phosp horus , blood leukocyte esterase negati ve Not Available [facility] [address], [address], [place], [address], 05/23/2017 17:03:45 05/23/20 17 05/23/2017 phosp horus , blood urobilinogen , urine <2.0 Not Available [facility] [address], [address], [place], [address], 05/23/2017 17:03:45 05/23/20 17 05/23/2017 phosp horus , blood protein, urine, random 9.8 Not Available [facility] [address], [place], [address], 05/23/2017 17:03:45 05/23/20 17 05/23/2017 phosp horus , blood creatinine, urine, random 24.9 Not Available [facility] [address], [place], [address], 05/23/2017 17:03:45 05/23/20 17 05/23/2017 phosp horus , blood HGB 14.7 Not Available [facility] [address], [place], [address], 05/23/2017 17:03:45 05/23/20 17 05/23/2017 phosp horus , blood HCT 44.5 Not Available [facility] [address], [place], [address], 05/23/2017 17:03:45 05/23/20 17 05/23/2017 phosp horus , blood WBC 4.5 Not Available [facility] [address], [place], [address], 05/23/2017 17:03:45 05/23/20 17 05/23/2017 phosp horus , blood plt 212 Not Available [facility] [address], [place], [address], 05/23/2017 17:03:45 05/23/20 17 05/23/2017 phosp horus , blood sodium, serum 137 Not Available [facility] [address], [address], [place], [address], 05/23/2017 17:03:45 05/23/20 17 05/23/2017 phosp horus , blood potassium, serum 3.5 Not Available [facility] [address], [place], [address], 05/23/2017 17:03:45 05/23/20 17 05/23/2017 phosp horus , blood chloride, serum 99 Not Available [facility] [address], [address], [place], [address], 05/23/2017 17:03:45 05/23/20 17 05/23/2017 phosp horus , blood carbon dioxide 27 Not Available [facility] [address], [address], [place], [address], 05/23/2017 17:03:45 05/23/20 17 05/23/2017 phosp horus , blood calcium, serum 9.0 Not Available [facility] [address], [address], [place], [address], 05/23/2017 17:03:45 05/23/20 17 05/23/2017 phosp horus , blood glucose, serum 101 Not Available [facility] [address], [address], [place], [address], 05/23/2017 17:03:45 05/23/20 17 05/23/2017 phosp horus , blood BUN 24 Not Available [facility] [address] [facility] [address], [address], [place], [address], 05/23/2017 17:03:45 05/23/20 17 05/23/2017 phosp horus , blood creatinine 1.60 Not Available [facility] [address] [facility] [address], [address], [place], [address], 05/23/2017 17:03:45 05/23/20 17 05/23/2017 phosp horus , blood GFR 44 Not Available [facility] [address] [facility] [address], [address], [place], [address], 05/23/2017 17:03:45 05/23/20 17 05/23/2017 phosp horus , blood bilirubin, total 0.5 Not Available [facility] [address] [facility] [address], [address], [place], [address], 05/23/2017 17:03:45 05/23/20 17 05/23/2017 phosp horus , blood alkaline phosphatase 43 Not Available [facility] [address] [facility] [address], [address], [place], [address], 05/23/2017 17:03:45 05/23/20 17 05/23/2017 phosp horus , blood albumin, serum 4.1 Not Available [facility] [address] [facility] [address], [address], [place], [address], 05/23/2017 17:03:45 05/23/20 17 05/23/2017 phosp horus , blood protein, total, serum 7.0 Not Available [facility] [place] [facility] [address] [facility] [address], [address], [place], [address], 05/23/2017 17:03:45 05/23/20 17 05/23/2017 phosp horus , blood magnesium 1.8 Not Available [facility] [address] [facility] [address], [address], [place], [address], 05/23/2017 17:03:45 05/23/20 17 05/23/2017 phosp horus , blood phosphorus 2.8 Not Available [facility] [address] [facility], [place], [address], 05/23/2017 17:03:45 05/23/20 17 05/23/2017 phosp horus , blood uric acid 6.1 Not Available [facility] [address] [facility] [address], [address], [place], [address], 05/23/2017 17:03:45 05/23/20 17 05/23/2017 phosp horus , blood PSA, total 0.762 Not Available [facility] [address] [facility] [address], [place], [address], 05/23/2017 17:03:45 05/23/20 17 05/23/2017 magne sium, blood color, urine straw Not Available [facility] [address] [facility] [address], [place], [address], 05/23/2017 17:03:45 05/23/20 17 05/23/2017 magne sium, blood clarity, urine clear Not Available [facility] [address] [facility], [place], [address], 05/23/2017 17:03:45 05/23/20 17 05/23/2017 magne sium, blood pH, urine 1.006 Not Available [facility] [address] [facility] [address], [place], [address], 05/23/2017 17:03:45 05/23/20 17 05/23/2017 magne sium, blood protein, urine negati ve Not Available [facility] [address] [facility] [address], [place], [address], 05/23/2017 17:03:45 05/23/20 17 05/23/2017 magne sium, blood glucose, urine negati ve Not Available [facility] [address] [facility], [place], [address], 05/23/2017 17:03:45 05/23/20 17 05/23/2017 magne sium, blood ketones, urine negati ve Not Available [facility] [address] [facility] [address], [place], [address], 05/23/2017 17:03:45 05/23/20 17 05/23/2017 magne sium, blood bilirubin, urine negati ve Not Available [facility] [address] [facility] [address], [place], [address], 05/23/2017 17:03:45 05/23/20 17 05/23/2017 magne sium, blood blood, urine negati ve Not Available [facility] [address] [facility] [address], [place], [address], 05/23/2017 17:03:45 05/23/20 17 05/23/2017 magne sium, blood nitrite, urine negati ve Not Available [facility] [address] [facility] [address], [place], [address], 05/23/2017 17:03:45 05/23/20 17 05/23/2017 magne sium, blood leukocyte esterase negati ve Not Available [facility] [address] [facility] [address], [place], [address], 05/23/2017 17:03:45 05/23/20 17 05/23/2017 magne sium, blood urobilinogen , urine <2.0 Not Available [facility] [address] [facility] [address], [place], [address], 05/23/2017 17:03:45 05/23/20 17 05/23/2017 magne sium, blood protein, urine, random 9.8 Not Available [facility] [address] [facility] [address], [address], [place], [address], 05/23/2017 17:03:45 05/23/20 17 05/23/2017 magne sium, blood creatinine, urine, random 24.9 Not Available [facility] [address] [facility] [address], [address], [place], [address], 05/23/2017 17:03:45 05/23/20 17 05/23/2017 magne sium, blood HGB 14.7 Not Available [facility] [address] [facility] [address], [place], [address], 05/23/2017 17:03:45 05/23/20 17 05/23/2017 magne sium, blood HCT 44.5 Not Available [facility] [address] [facility] [address], [address], [place], [address], 05/23/2017 17:03:45 05/23/20 17 05/23/2017 magne sium, blood WBC 4.5 Not Available [facility] [address] [facility] [address], [address], [place], [address], 05/23/2017 17:03:45 05/23/20 17 05/23/2017 magne sium, blood plt 212 Not Available [facility] [address] [facility] [address], [address], [place], [address], 05/23/2017 17:03:45 05/23/20 17 05/23/2017 magne sium, blood sodium, serum 137 Not Available [facility] [address] [facility] [address], [address], [place], [address], 05/23/2017 17:03:45 05/23/20 17 05/23/2017 magne sium, blood potassium, serum 3.5 Not Available [facility] [address], [place], [address], 05/23/2017 17:03:45 05/23/20 17 05/23/2017 magne sium, blood chloride, serum 99 Not Available [facility] [address], [address], [place], [address], 05/23/2017 17:03:45 05/23/20 17 05/23/2017 magne sium, blood carbon dioxide 27 Not Available [facility] [address], [address], [place], [address], 05/23/2017 17:03:45 05/23/20 17 05/23/2017 magne sium, blood calcium, serum 9.0 Not Available [facility] [address], [place], [address], 05/23/2017 17:03:45 05/23/20 17 05/23/2017 magne sium, blood glucose, serum 101 Not Available [facility] [address], [place], [address], 05/23/2017 17:03:45 05/23/20 17 05/23/2017 magne sium, blood BUN 24 Not Available [facility] [address], [place], [address], 05/23/2017 17:03:45 05/23/20 17 05/23/2017 magne sium, blood creatinine 1.60 Not Available [facility] [address], [place], [address], 05/23/2017 17:03:45 05/23/20 17 05/23/2017 magne sium, blood GFR 44 Not Available [facility] [address] [facility] [address], [address], [place], [address], 05/23/2017 17:03:45 05/23/20 17 05/23/2017 magne sium, blood bilirubin, total 0.5 Not Available [facility] [address] [facility] [address], [address], [place], [address], 05/23/2017 17:03:45 05/23/20 17 05/23/2017 magne sium, blood alkaline phosphatase 43 Not Available [facility] [address] [facility] [address], [address], [place], [address], 05/23/2017 17:03:45 05/23/20 17 05/23/2017 magne sium, blood albumin, serum 4.1 Not Available [facility] [address] [facility] [address], [address], [place], [address], 05/23/2017 17:03:45 05/23/20 17 05/23/2017 magne sium, blood protein, total, serum 7.0 Not Available [facility] [place] [facility] [address] [facility] [address], [place], [address], 05/23/2017 17:03:45 05/23/20 17 05/23/2017 magne sium, blood magnesium 1.8 Not Available [facility] [address] [facility] [address], [address], [place], [address], 05/23/2017 17:03:45 05/23/20 17 05/23/2017 magne sium, blood phosphorus 2.8 Not Available [facility] [address] [facility] [address], [address], [place], [address], 05/23/2017 17:03:45 05/23/20 17 05/23/2017 magne sium, blood uric acid 6.1 Not Available [facility] [address] [facility] [address], [address], [place], [address], 05/23/2017 17:03:45 05/23/20 17 05/23/2017 magne sium, blood PSA, total 0.762 Not Available [facility] [address] [facility] [address], [place], [address], 05/23/2017 17:03:45 05/23/20 17 05/23/2017 CMP, serum or plasm a color, urine straw Not Available [facility] [address] [facility] [address], [place], [address], 05/23/2017 17:03:45 05/23/20 17 05/23/2017 CMP, serum or plasm a clarity, urine clear Not Available [facility] [address] [facility] [address], [place], [address], 05/23/2017 17:03:45 05/23/20 17 05/23/2017 CMP, serum or plasm a pH, urine 1.006 Not Available [facility] [address] [facility] [address], [place], [address], 05/23/2017 17:03:45 05/23/20 17 05/23/2017 CMP, serum or plasm a protein, urine negati ve Not Available [facility] [address] [facility] [address], [place], [address], 05/23/2017 17:03:45 05/23/20 17 05/23/2017 CMP, serum or plasm a glucose, urine negati ve Not Available [facility] [address] [facility] [address], [place], [address], 05/23/2017 17:03:45 05/23/20 17 05/23/2017 CMP, serum or plasm a ketones, urine negati ve Not Available [facility] [address] [facility] [address], [place], [address], 05/23/2017 17:03:45 05/23/20 17 05/23/2017 CMP, serum or plasm a bilirubin, urine negati ve Not Available [facility] [address] [facility] [address], [place], [address], 05/23/2017 17:03:45 05/23/20 17 05/23/2017 CMP, serum or plasm a blood, urine negati ve Not Available [facility] [address] [facility] [address], [place], [address], 05/23/2017 17:03:45 05/23/20 17 05/23/2017 CMP, serum or plasm a nitrite, urine negati ve Not Available [facility] [address] [facility] [address], [place], [address], 05/23/2017 17:03:45 05/23/20 17 05/23/2017 CMP, serum or plasm a leukocyte esterase negati ve Not Available [facility] [address] [facility] [address], [place], [address], 05/23/2017 17:03:45 05/23/20 17 05/23/2017 CMP, serum or plasm a urobilinogen , urine <2.0 Not Available [facility] [address] [facility] [address], [place], [address], 05/23/2017 17:03:45 05/23/20 17 05/23/2017 CMP, serum or plasm a protein, urine, random 9.8 Not Available [facility] [address] [facility] [address], [place], [address], 05/23/2017 17:03:45 05/23/20 17 05/23/2017 CMP, serum or plasm a creatinine, urine, random 24.9 Not Available [facility] [address] [facility] [address], [place], [address], 05/23/2017 17:03:45 05/23/20 17 05/23/2017 CMP, serum or plasm a HGB 14.7 Not Available [facility] [address] [facility] [address], [address], [place], [address], 05/23/2017 17:03:45 05/23/20 17 05/23/2017 CMP, serum or plasm a HCT 44.5 Not Available [facility] [address] [facility] [address], [place], [address], 05/23/2017 17:03:45 05/23/20 17 05/23/2017 CMP, serum or plasm a WBC 4.5 Not Available [facility] [address] [facility] [address], [address], [place], [address], 05/23/2017 17:03:45 05/23/20 17 05/23/2017 CMP, serum or plasm a plt 212 Not Available [facility] [address] [facility] [address], [place], [address], 05/23/2017 17:03:45 05/23/20 17 05/23/2017 CMP, serum or plasm a sodium, serum 137 Not Available [facility] [address] [facility] [address], [place], [address], 05/23/2017 17:03:45 05/23/20 17 05/23/2017 CMP, serum or plasm a potassium, serum 3.5 Not Available [facility] [address] [facility] [address], [place], [address], 05/23/2017 17:03:45 05/23/20 17 05/23/2017 CMP, serum or plasm a chloride, serum 99 Not Available [facility] [address] [facility] [address], [address], [place], [address], 05/23/2017 17:03:45 05/23/20 17 05/23/2017 CMP, serum or plasm a carbon dioxide 27 Not Available [facility] [address] [facility] [address], [place], [address], 05/23/2017 17:03:45 05/23/20 17 05/23/2017 CMP, serum or plasm a calcium, serum 9.0 Not Available [facility] [address] [facility] [address], [place], [address], 05/23/2017 17:03:45 05/23/20 17 05/23/2017 CMP, serum or plasm a glucose, serum 101 Not Available [facility] [address] [facility] [address], [place], [address], 05/23/2017 17:03:45 05/23/20 17 05/23/2017 CMP, serum or plasm a BUN 24 Not Available [facility] [address] [facility] [address], [place], [address], 05/23/2017 17:03:45 05/23/20 17 05/23/2017 CMP, serum or plasm a creatinine 1.60 Not Available [facility] [address] [facility] [address], [place], [address], 05/23/2017 17:03:45 05/23/20 17 05/23/2017 CMP, serum or plasm a GFR 44 Not Available [facility] [address] [facility] [address], [place], [address], 05/23/2017 17:03:45 05/23/20 17 05/23/2017 CMP, serum or plasm a bilirubin, total 0.5 Not Available [address], [place], [address], 05/23/2017 17:03:45 05/23/20 17 05/23/2017 CMP, serum or plasm a alkaline phosphatase 43 Not Available [address], [place], [address], 05/23/2017 17:03:45 05/23/20 17 05/23/2017 CMP, serum or plasm a albumin, serum 4.1 Not Available [address], [place], [address], 05/23/2017 17:03:45 05/23/20 17 05/23/2017 CMP, serum or plasm a protein, total, serum 7.0 Not Available [address], [place], [address], 05/23/2017 17:03:45 05/23/20 17 05/23/2017 CMP, serum or plasm a magnesium 1.8 Not Available [address], [place], [address], 05/23/2017 17:03:45 05/23/20 17 05/23/2017 CMP, serum or plasm a phosphorus 2.8 Not Available [address], [address], [place], [address], 05/23/2017 17:03:45 05/23/20 17 05/23/2017 CMP, serum or plasm a uric acid 6.1 Not Available [facility] [address] [facility] [address], [place], [address], 05/23/2017 17:03:45 05/23/20 17 05/23/2017 CMP, serum or plasm a PSA, total 0.762 Not Available [facility] [address] [facility] [address], [place], [address], 05/23/2017 17:03:45 05/23/20 17 05/23/2017 CBC w/ auto diff color, urine straw Not Available [facility] [address], [place], [address], 05/23/2017 17:03:45 05/23/20 17 05/23/2017 CBC w/ auto diff clarity, urine clear Not Available [facility] [address], [place], [address], 05/23/2017 17:03:45 05/23/20 17 05/23/2017 CBC w/ auto diff pH, urine 1.006 Not Available [facility] [address], [place], [address], 05/23/2017 17:03:45 05/23/20 17 05/23/2017 CBC w/ auto diff protein, urine negati ve Not Available [facility] [address], [address], [place], [address], 05/23/2017 17:03:45 05/23/20 17 05/23/2017 CBC w/ auto diff glucose, urine negati ve Not Available [facility] [address], [address], [place], [address], 05/23/2017 17:03:45 05/23/20 17 05/23/2017 CBC w/ auto diff ketones, urine negati ve Not Available [facility] [address], [address], [place], [address], 05/23/2017 17:03:45 05/23/20 17 05/23/2017 CBC w/ auto diff bilirubin, urine negati ve Not Available [facility] [address], [address], [place], [address], 05/23/2017 17:03:45 05/23/20 17 05/23/2017 CBC w/ auto diff blood, urine negati ve Not Available [facility] [address] [facility] [address], [address], [place], [address], 05/23/2017 17:03:45 05/23/20 17 05/23/2017 CBC w/ auto diff nitrite, urine negati ve Not Available [facility] [address], [address], [place], [address], 05/23/2017 17:03:45 05/23/20 17 05/23/2017 CBC w/ auto diff leukocyte esterase negati ve Not Available [facility] [address], [address], [place], [address], 05/23/2017 17:03:45 05/23/20 17 05/23/2017 CBC w/ auto diff urobilinogen , urine <2.0 Not Available [facility] [address], [address], [place], [address], 05/23/2017 17:03:45 05/23/20 17 05/23/2017 CBC w/ auto diff protein, urine, random 9.8 Not Available [facility] [address], [address], [place], [address], 05/23/2017 17:03:45 05/23/20 17 05/23/2017 CBC w/ auto diff creatinine, urine, random 24.9 Not Available [facility] [address], [address], [place], [address], 05/23/2017 17:03:45 05/23/20 17 05/23/2017 CBC w/ auto diff HGB 14.7 Not Available [facility] [address], [address], [place], [address], 05/23/2017 17:03:45 05/23/20 17 05/23/2017 CBC w/ auto diff HCT 44.5 Not Available [facility] [address] [facility] [address], [address], [place], [address], 05/23/2017 17:03:45 05/23/20 17 05/23/2017 CBC w/ auto diff WBC 4.5 Not Available [facility] [address] [facility] [address], [address], [place], [address], 05/23/2017 17:03:45 05/23/20 17 05/23/2017 CBC w/ auto diff plt 212 Not Available [facility] [address] [facility] [address], [address], [place], [address], 05/23/2017 17:03:45 05/23/20 17 05/23/2017 CBC w/ auto diff sodium, serum 137 Not Available [facility] [address] [facility] [address], [address], [place], [address], 05/23/2017 17:03:45 05/23/20 17 05/23/2017 CBC w/ auto diff potassium, serum 3.5 Not Available [facility] [address] [facility] [address], [address], [place], [address], 05/23/2017 17:03:45 05/23/20 17 05/23/2017 CBC w/ auto diff chloride, serum 99 Not Available [facility] [address] [facility] [address], [place], [address], 05/23/2017 17:03:45 05/23/20 17 05/23/2017 CBC w/ auto diff carbon dioxide 27 Not Available [facility] [address] [facility] [address], [address], [place], [address], 05/23/2017 17:03:45 05/23/20 17 05/23/2017 CBC w/ auto diff calcium, serum 9.0 Not Available [facility] [address] [facility] [address], [address], [place], [address], 05/23/2017 17:03:45 05/23/20 17 05/23/2017 CBC w/ auto diff glucose, serum 101 Not Available [facility] [address], [place], [address], 05/23/2017 17:03:45 05/23/20 17 05/23/2017 CBC w/ auto diff BUN 24 Not Available [facility] [address] [facility] [address], [address], [place], [address], 05/23/2017 17:03:45 05/23/20 17 05/23/2017 CBC w/ auto diff creatinine 1.60 Not Available [facility] [address] [facility] [address], [address], [place], [address], 05/23/2017 17:03:45 05/23/20 17 05/23/2017 CBC w/ auto diff GFR 44 Not Available [facility] [address] [facility] [address], [address], [place], [address], 05/23/2017 17:03:45 05/23/20 17 05/23/2017 CBC w/ auto diff bilirubin, total 0.5 Not Available [facility] [address] [facility] [address], [address], [place], [address], 05/23/2017 17:03:45 05/23/20 17 05/23/2017 CBC w/ auto diff alkaline phosphatase 43 Not Available [facility] [address] [facility] [address], [address], [place], [address], 05/23/2017 17:03:45 05/23/20 17 05/23/2017 CBC w/ auto diff albumin, serum 4.1 Not Available [facility] [address] [facility] [address], [address], [place], [address], 05/23/2017 17:03:45 05/23/20 17 05/23/2017 CBC w/ auto diff protein, total, serum 7.0 Not Available [facility] [address] [facility] [address], [address], [place], [address], 05/23/2017 17:03:45 05/23/20 17 05/23/2017 CBC w/ auto diff magnesium 1.8 Not Available [facility] [address] [facility] [address], [place], [address], 05/23/2017 17:03:45 05/23/20 17 05/23/2017 CBC w/ auto diff phosphorus 2.8 Not Available [address], [address], [place], [address], 05/23/2017 17:03:45 05/23/20 17 05/23/2017 CBC w/ auto diff uric acid 6.1 Not Available [facility] [address] [facility] [address], [address], [place], [address], 05/23/2017 17:03:45 05/23/20 17 05/23/2017 CBC w/ auto diff PSA, total 0.762 Not Available [address], [address], [place], [address], 05/23/2017 17:03:45 05/23/20 17 05/23/2017 prote in:cr eatin ine ratio , urine color, urine straw Not Available [facility] [address], [address], [place], [address], 05/23/2017 17:03:44 05/23/20 17 05/23/2017 prote in:cr eatin ine ratio , urine clarity, urine clear Not Available [facility] [address] [facility] [address], [place], [address], 05/23/2017 17:03:44 05/23/20 17 05/23/2017 prote in:cr eatin ine ratio , urine pH, urine 1.006 Not Available [facility] [address] [facility] [address], [place], [address], 05/23/2017 17:03:44 05/23/20 17 05/23/2017 prote in:cr eatin ine ratio , urine protein, urine negati ve Not Available [facility] [address] [facility] [address], [address], [place], [address], 05/23/2017 17:03:44 05/23/20 17 05/23/2017 prote in:cr eatin ine ratio , urine glucose, urine negati ve Not Available [facility] [address] [facility] [address], [address], [place], [address], 05/23/2017 17:03:44 05/23/20 17 05/23/2017 prote in:cr eatin ine ratio , urine ketones, urine negati ve Not Available [facility] [address] [facility] [address], [address], [place], [address], 05/23/2017 17:03:44 05/23/20 17 05/23/2017 prote in:cr eatin ine ratio , urine bilirubin, urine negati ve Not Available [facility] [address] [facility] [address], [address], [place], [address], 05/23/2017 17:03:44 05/23/20 17 05/23/2017 prote in:cr eatin ine ratio , urine blood, urine negati ve Not Available [facility] [address] [facility] [address], [address], [place], [address], 05/23/2017 17:03:44 05/23/20 17 05/23/2017 prote in:cr eatin ine ratio , urine nitrite, urine negati ve Not Available [facility] [address] [facility] [address], [address], [place], [address], 05/23/2017 17:03:44 05/23/20 17 05/23/2017 prote in:cr eatin ine ratio , urine leukocyte esterase negati ve Not Available [facility] [address] [facility] [address], [address], [place], [address], 05/23/2017 17:03:44 05/23/20 17 05/23/2017 prote in:cr eatin ine ratio , urine urobilinogen , urine <2.0 Not Available [facility] [address] [facility] [address], [address], [place], [address], 05/23/2017 17:03:44 05/23/20 17 05/23/2017 prote in:cr eatin ine ratio , urine protein, urine, random 9.8 Not Available [facility] [address], [address], [place], [address], 05/23/2017 17:03:44 05/23/20 17 05/23/2017 prote in:cr eatin ine ratio , urine creatinine, urine, random 24.9 Not Available [facility] [address], [address], [place], [address], 05/23/2017 17:03:44 05/23/20 17 05/23/2017 prote in:cr eatin ine ratio , urine HGB 14.7 Not Available [facility] [address], [address], [place], [address], 05/23/2017 17:03:44 05/23/20 17 05/23/2017 prote in:cr eatin ine ratio , urine HCT 44.5 Not Available [facility] [address] [facility] [address], [place], [address], 05/23/2017 17:03:44 05/23/20 17 05/23/2017 prote in:cr eatin ine ratio , urine WBC 4.5 Not Available [facility] [address], [address], [place], [address], 05/23/2017 17:03:44 05/23/20 17 05/23/2017 prote in:cr eatin ine ratio , urine plt 212 Not Available [facility] [address], [address], [place], [address], 05/23/2017 17:03:44 05/23/20 17 05/23/2017 prote in:cr eatin ine ratio , urine sodium, serum 137 Not Available [facility] [address], [address], [place], [address], 05/23/2017 17:03:44 05/23/20 17 05/23/2017 prote in:cr eatin ine ratio , urine potassium, serum 3.5 Not Available [facility] [address], [address], [place], [address], 05/23/2017 17:03:44 05/23/20 17 05/23/2017 prote in:cr eatin ine ratio , urine chloride, serum 99 Not Available [facility] [address], [address], [place], [address], 05/23/2017 17:03:44 05/23/20 17 05/23/2017 prote in:cr eatin ine ratio , urine carbon dioxide 27 Not Available [facility] [address], [address], [place], [address], 05/23/2017 17:03:44 05/23/20 17 05/23/2017 prote in:cr eatin ine ratio , urine calcium, serum 9.0 Not Available [facility] [address] [facility] [address], [address], [place], [address], 05/23/2017 17:03:44 05/23/20 17 05/23/2017 prote in:cr eatin ine ratio , urine glucose, serum 101 Not Available [facility] [address] [facility] [address], [address], [place], [address], 05/23/2017 17:03:44 05/23/20 17 05/23/2017 prote in:cr eatin ine ratio , urine BUN 24 Not Available [facility] [address] [facility] [address], [address], [place], [address], 05/23/2017 17:03:44 05/23/20 17 05/23/2017 prote in:cr eatin ine ratio , urine creatinine 1.60 Not Available [facility] [address] [facility] [address], [address], [place], [address], 05/23/2017 17:03:44 05/23/20 17 05/23/2017 prote in:cr eatin ine ratio , urine GFR 44 Not Available [facility] [address] [facility] [address], [address], [place], [address], 05/23/2017 17:03:44 05/23/20 17 05/23/2017 prote in:cr eatin ine ratio , urine bilirubin, total 0.5 Not Available [facility] [address] [facility] [address], [address], [place], [address], 05/23/2017 17:03:44 05/23/20 17 05/23/2017 prote in:cr eatin ine ratio , urine alkaline phosphatase 43 Not Available [facility] [address] [facility] [address], [address], [place], [address], 05/23/2017 17:03:44 05/23/20 17 05/23/2017 prote in:cr eatin ine ratio , urine albumin, serum 4.1 Not Available [facility] [address] [facility] [address], [address], [place], [address], 05/23/2017 17:03:44 05/23/20 17 05/23/2017 prote in:cr eatin ine ratio , urine protein, total, serum 7.0 Not Available [facility] [place] [facility] [address] [facility] [address], [address], [place], [address], 05/23/2017 17:03:44 05/23/20 17 05/23/2017 prote in:cr eatin ine ratio , urine magnesium 1.8 Not Available [facility] [address] [facility] [address], [address], [place], [address], 05/23/2017 17:03:44 05/23/20 17 05/23/2017 prote in:cr eatin ine ratio , urine phosphorus 2.8 Not Available [facility] [address] [facility] [address], [place], [address], 05/23/2017 17:03:44 05/23/20 17 05/23/2017 prote in:cr eatin ine ratio , urine uric acid 6.1 Not Available [facility] [address] [facility] [address], [address], [place], [address], 05/23/2017 17:03:44 05/23/20 17 05/23/2017 prote in:cr eatin ine ratio , urine PSA, total 0.762 Not Available [facility] [address] [facility] [address], [place], [address], 05/23/2017 17:03:44 05/23/20 17 05/23/2017 urina lysis , dipst ick, refle x micro color, urine straw Not Available [facility] [address] [facility] [address], [place], [address], 05/23/2017 15:47:58 05/23/20 17 05/23/2017 urina lysis , dipst ick, refle x micro clarity, urine clear Not Available [facility] [address] [place], [place] [address]za [facility] [address], [address], [place], [address], 05/23/2017 15:47:58 05/23/20 17 05/23/2017 urina lysis , dipst ick, refle x micro pH, urine 1.006 Not Available [facility] [address] [place] [address] [address], [address], [place], [address], 05/23/2017 15:47:58 05/23/20 17 05/23/2017 urina lysis , dipst ick, refle x micro protein, urine negati ve Not Available [address], [address], [place], [address], 05/23/2017 15:47:58 05/23/20 17 05/23/2017 urina lysis , dipst ick, refle x micro glucose, urine negati ve Not Available [facility] [address] [place] [address] [address], [address], [place], [address], 05/23/2017 15:47:58 05/23/20 17 05/23/2017 urina lysis , dipst ick, refle x micro ketones, urine negati ve Not Available [facility] [address] [place] [address] [address], [address], [place], [address], 05/23/2017 15:47:58 05/23/20 17 05/23/2017 urina lysis , dipst ick, refle x micro bilirubin, urine negati ve Not Available [facility] [address] [place] [address] [address], [address], [place], [address], 05/23/2017 15:47:58 05/23/20 17 05/23/2017 urina lysis , dipst ick, refle x micro blood, urine negati ve Not Available [facility] [address], [place], [address], 05/23/2017 15:47:58 05/23/20 17 05/23/2017 urina lysis , dipst ick, refle x micro nitrite, urine negati ve Not Available [facility] [address] [facility] [address], [place], [address], 05/23/2017 15:47:58 05/23/20 17 05/23/2017 urina lysis , dipst ick, refle x micro leukocyte esterase negati ve Not Available [facility] [address] [facility] [address], [address], [place], [address], 05/23/2017 15:47:58 05/23/20 17 05/23/2017 urina lysis , dipst ick, refle x micro urobilinogen , urine <2.0 Not Available [facility] [address] [facility] [address], [place], [address], 05/23/2017 15:47:58 05/23/20 17 05/23/2017 urina lysis , dipst ick, refle x micro protein, urine, random 9.8 Not Available [facility] [address] [facility] [address], [place], [address], 05/23/2017 15:47:58 05/23/20 17 05/23/2017 urina lysis , dipst ick, refle x micro creatinine, urine, random 24.9 Not Available [facility] [address], [address], [place], [address], 05/23/2017 15:47:58 05/23/20 17 05/23/2017 urina lysis , dipst ick, refle x micro HGB 14.7 Not Available [facility] [address] [facility] [address], [place], [address], 05/23/2017 15:47:58 05/23/20 17 05/23/2017 urina lysis , dipst ick, refle x micro HCT 44.5 Not Available [facility] [address], [place], [address], 05/23/2017 15:47:58 05/23/20 17 05/23/2017 urina lysis , dipst ick, refle x micro WBC 4.5 Not Available [facility] [address] [facility] [address], [place], [address], 05/23/2017 15:47:58 05/23/20 17 05/23/2017 urina lysis , dipst ick, refle x micro plt 212 Not Available [facility] [address] [facility] [address], [place], [address], 05/23/2017 15:47:58 05/23/20 17 05/23/2017 urina lysis , dipst ick, refle x micro sodium, serum 137 Not Available [facility] [address], [address], [place], [address], 05/23/2017 15:47:58 05/23/20 17 05/23/2017 urina lysis , dipst ick, refle x micro potassium, serum 3.5 Not Available [facility] [address], [place], [address], 05/23/2017 15:47:58 05/23/20 17 05/23/2017 urina lysis , dipst ick, refle x micro chloride, serum 99 Not Available [facility] [address], [place], [address], 05/23/2017 15:47:58 05/23/20 17 05/23/2017 urina lysis , dipst ick, refle x micro carbon dioxide 27 Not Available [facility] [address] [facility] [address], [address], [place], [address], 05/23/2017 15:47:58 05/23/20 17 05/23/2017 urina lysis , dipst ick, refle x micro calcium, serum 9.0 Not Available [facility] [address] [facility] [address], [place], [address], 05/23/2017 15:47:58 05/23/20 17 05/23/2017 urina lysis , dipst ick, refle x micro glucose, serum 101 Not Available [facility] [address] [facility] [address], [place], [address], 05/23/2017 15:47:58 05/23/20 17 05/23/2017 urina lysis , dipst ick, refle x micro BUN 24 Not Available [facility] [address] [facility] [address], [place], [address], 05/23/2017 15:47:58 05/23/20 17 05/23/2017 urina lysis , dipst ick, refle x micro creatinine 1.60 Not Available [facility] [address] [facility] [address], [place], [address], 05/23/2017 15:47:58 05/23/20 17 05/23/2017 urina lysis , dipst ick, refle x micro GFR 44 Not Available [facility] [address] [facility] [address], [place], [address], 05/23/2017 15:47:58 05/23/20 17 05/23/2017 urina lysis , dipst ick, refle x micro bilirubin, total 0.5 Not Available [facility] [address], [place], [address], 05/23/2017 15:47:58 05/23/20 17 05/23/2017 urina lysis , dipst ick, refle x micro alkaline phosphatase 43 Not Available [facility] [address] [place], [place] [address] [facility] [address], [place], [address], 05/23/2017 15:47:58 05/23/20 17 05/23/2017 urina lysis , dipst ick, refle x micro albumin, serum 4.1 Not Available [address] [facility] [address], [place], [address], 05/23/2017 15:47:58 05/23/20 17 05/23/2017 urina lysis , dipst ick, refle x micro protein, total, serum 7.0 Not Available [address] [facility] [address], [place], [address], 05/23/2017 15:47:58 05/23/20 17 05/23/2017 urina lysis , dipst ick, refle x micro magnesium 1.8 Not Available [address] [facility] [address], [place], [address], 05/23/2017 15:47:58 05/23/20 17 05/23/2017 urina lysis , dipst ick, refle x micro phosphorus 2.8 Not Available [address] [facility] [address], [place], [address], 05/23/2017 15:47:58 05/23/20 17 05/23/2017 urina lysis , dipst ick, refle x micro uric acid 6.1 Not Available [address] [facility] [address], [address], [place], [address], 05/23/2017 15:47:58 05/23/20 17 05/23/2017 urina lysis , dipst ick, refle x micro PSA, total 0.762 Not Available [facility] [address] [facility] [address], [place], [address], 05/23/2017 15:47:58 11/16/19 18 11/15/2017 urina lysis , dipst ick, refle x micro color, urine light, yellow Not Available [facility] [address], [place], [address], 11/18/2017 15:55:55 11/16/19 18 11/15/2017 urina lysis , dipst ick, refle x micro clarity, urine clear Not Available [facility] [address] [facility] [address], [place], [address], 11/18/2017 15:55:55 11/16/19 18 11/15/2017 urina lysis , dipst ick, refle x micro pH, urine 6.0 Not Available [facility] [address] [facility] [address], [place], [address], 11/18/2017 15:55:55 11/16/19 18 11/15/2017 urina lysis , dipst ick, refle x micro specific gravity, urine 1.010 Not Available [facility] [address] [facility] [address], [place], [address], 11/18/2017 15:55:55 11/16/19 18 11/15/2017 urina lysis , dipst ick, refle x micro protein, total, urine 30 Not Available [facility] [place] [facility] [address] [facility] [address], [place], [address], 11/18/2017 15:55:55 11/16/19 18 11/15/2017 urina lysis , dipst ick, refle x micro glucose, urine negati ve Not Available [facility] [address], [place], [address], 11/18/2017 15:55:55 11/16/19 18 11/15/2017 urina lysis , dipst ick, refle x micro ketones, urine negati ve Not Available [facility] [address] [facility] [address], [place], [address], 11/18/2017 15:55:55 11/16/19 18 11/15/2017 urina lysis , dipst ick, refle x micro bilirubin, urine negati ve Not Available [facility] [address] [facility] [address], [place], [address], 11/18/2017 15:55:55 11/16/19 18 11/15/2017 urina lysis , dipst ick, refle x micro blood, urine negati ve Not Available [facility] [address] [facility] [address], [place], [address], 11/18/2017 15:55:55 11/16/19 18 11/15/2017 urina lysis , dipst ick, refle x micro nitrite, urine negati ve Not Available [facility] [address] [facility] [address], [place], [address], 11/18/2017 15:55:55 11/16/19 18 11/15/2017 urina lysis , dipst ick, refle x micro leukocyte esterase, urine negati ve Not Available [facility] [address] [facility] [address], [place], [address], 11/18/2017 15:55:55 11/16/19 18 11/15/2017 urina lysis , dipst ick, refle x micro urobilinogen , urine <2.0 Not Available [facility] [address] [facility] [address], [place], [address], 11/18/2017 15:55:55 11/16/19 18 11/15/2017 urina lysis , dipst ick, refle x micro WBC casts, urine <1 Not Available [facility] [address] [facility] [address], [address], [place], [address], 11/18/2017 15:55:55 11/16/19 18 11/15/2017 urina lysis , dipst ick, refle x micro red blood cells, urine 0 Not Available [facility] [place] [facility] [address] [facility] [address], [address], [place], [address], 11/18/2017 15:55:55 11/16/19 18 11/15/2017 urina lysis , dipst ick, refle x micro epithelial cells, urine <1 Not Available [facility] [address] [facility] [address], [address], [place], [address], 11/18/2017 15:55:55 11/16/19 18 11/15/2017 urina lysis , dipst ick, refle x micro protein, urine, random 10.1 Not Available [facility] [address] [facility] [address], [address], [place], [address], 11/18/2017 15:55:55 11/16/19 18 11/15/2017 urina lysis , dipst ick, refle x micro creatinine, urine, random 48.7 Not Available [facility] [address] [facility] [address], [address], [place], [address], 11/18/2017 15:55:55 11/16/19 18 11/15/2017 urina lysis , dipst ick, refle x micro HGB 15.3 Not Available [facility] [address], [address], [place], [address], 11/18/2017 15:55:55 11/16/19 18 11/15/2017 urina lysis , dipst ick, refle x micro HCT 44.1 Not Available [facility] [address] [facility] [address], [place], [address], 11/18/2017 15:55:55 11/16/19 18 11/15/2017 urina lysis , dipst ick, refle x micro WBC 6.6 Not Available [facility] [address] [facility] [address], [address], [place], [address], 11/18/2017 15:55:55 11/16/19 18 11/15/2017 urina lysis , dipst ick, refle x micro plt 275 Not Available [facility] [address], [address], [place], [address], 11/18/2017 15:55:55 11/16/19 18 11/15/2017 urina lysis , dipst ick, refle x micro sodium, serum 137 Not Available [facility] [address] [facility] [address], [address], [place], [address], 11/18/2017 15:55:55 11/16/19 18 11/15/2017 urina lysis , dipst ick, refle x micro potassium, seerum 4.0 Not Available [facility] [address], [address], [place], [address], 11/18/2017 15:55:55 11/16/19 18 11/15/2017 urina lysis , dipst ick, refle x micro chloride, serum 96 Not Available [facility] [address] [facility] [address], [address], [place], [address], 11/18/2017 15:55:55 11/16/19 18 11/15/2017 urina lysis , dipst ick, refle x micro carbon dioxide 27 Not Available [facility] [address] [facility] [address], [address], [place], [address], 11/18/2017 15:55:55 11/16/19 18 11/15/2017 urina lysis , dipst ick, refle x micro calcium, serum 9.5 Not Available [facility] [address] [facility] [address], [address], [place], [address], 11/18/2017 15:55:55 11/16/19 18 11/15/2017 urina lysis , dipst ick, refle x micro glucose, serum 92 Not Available [facility] [address], [address], [place], [address], 11/18/2017 15:55:55 11/16/19 18 11/15/2017 urina lysis , dipst ick, refle x micro BUN 27 Not Available [facility] [address], [address], [place], [address], 11/18/2017 15:55:55 11/16/19 18 11/15/2017 urina lysis , dipst ick, refle x micro creatinine 1.63 Not Available [facility] [address], [address], [place], [address], 11/18/2017 15:55:55 11/16/19 18 11/15/2017 urina lysis , dipst ick, refle x micro GFR 43 Not Available [facility] [address], [address], [place], [address], 11/18/2017 15:55:55 11/16/19 18 11/15/2017 urina lysis , dipst ick, refle x micro bilirubin, total 0.6 Not Available [facility] [address], [address], [place], [address], 11/18/2017 15:55:55 11/16/19 18 11/15/2017 urina lysis , dipst ick, refle x micro albumin, serum 4.5 Not Available [facility] [address] [facility] [address], [address], [place], [address], 11/18/2017 15:55:55 11/16/19 18 11/15/2017 urina lysis , dipst ick, refle x micro protein, total, serum 7.5 Not Available [address], [address], [place], [address], 11/18/2017 15:55:55 11/16/19 18 11/15/2017 urina lysis , dipst ick, refle x micro magnesium 1.8 Not Available [facility] [address] [facility] [address], [place], [address], 11/18/2017 15:55:55 11/16/19 18 11/15/2017 urina lysis , dipst ick, refle x micro phosphorus 3.6 Not Available [address] [facility] [address], [place], [address], 11/18/2017 15:55:55 11/16/19 18 11/15/2017 urina lysis , dipst ick, refle x micro uric acid 5.6 Not Available [address], [place], [address], 11/18/2017 15:55:55 11/16/19 18 11/15/2017 uric acid, serum or plasm a color, urine light, yellow Not Available [address] [facility] [address], [address], [place], [address], 11/19/2017 19:46:51 11/16/19 18 11/15/2017 uric acid, serum or plasm a clarity, urine clear Not Available [facility] [address] [facility] [address], [place], [address], 11/19/2017 19:46:51 11/16/19 18 11/15/2017 uric acid, serum or plasm a pH, urine 6.0 Not Available [address], [address], [place], [address], 11/19/2017 19:46:51 11/16/19 18 11/15/2017 uric acid, serum or plasm a specific gravity, urine 1.010 Not Available [address], [address], [place], [address], 11/19/2017 19:46:51 11/16/19 18 11/15/2017 uric acid, serum or plasm a protein, total, urine 30 Not Available [address], [address], [place], [address], 11/19/2017 19:46:51 11/16/19 18 11/15/2017 uric acid, serum or plasm a glucose, urine negati ve Not Available [address], [address], [place], [address], 11/19/2017 19:46:51 11/16/19 18 11/15/2017 uric acid, serum or plasm a ketones, urine negati ve Not Available [address], [address], [place], [address], 11/19/2017 19:46:51 11/16/19 18 11/15/2017 uric acid, serum or plasm a bilirubin, urine negati ve Not Available [address], [address], [place], [address], 11/19/2017 19:46:51 11/16/19 18 11/15/2017 uric acid, serum or plasm a blood, urine negati ve Not Available [address], [address], [place], [address], 11/19/2017 19:46:51 11/16/19 18 11/15/2017 uric acid, serum or plasm a nitrite, urine negati ve Not Available [facility] [address] [facility] [address], [place], [address], 11/19/2017 19:46:51 11/16/19 18 11/15/2017 uric acid, serum or plasm a leukocyte esterase, urine negati ve Not Available [address], [place], [address], 11/19/2017 19:46:51 11/16/19 18 11/15/2017 uric acid, serum or plasm a urobilinogen , urine <2.0 Not Available [facility] [address] [facility] [address], [place], [address], 11/19/2017 19:46:51 11/16/19 18 11/15/2017 uric acid, serum or plasm a WBC casts, urine <1 Not Available [address], [place], [address], 11/19/2017 19:46:51 11/16/19 18 11/15/2017 uric acid, serum or plasm a red blood cells, urine 0 Not Available [address], [place], [address], 11/19/2017 19:46:51 11/16/19 18 11/15/2017 uric acid, serum or plasm a epithelial cells, urine <1 Not Available [address], [place], [address], 11/19/2017 19:46:51 11/16/19 18 11/15/2017 uric acid, serum or plasm a protein, urine, random 10.1 Not Available [address], [place], [address], 11/19/2017 19:46:51 11/16/19 18 11/15/2017 uric acid, serum or plasm a creatinine, urine, random 48.7 Not Available [facility] [address] [facility] [address], [address], [place], [address], 11/19/2017 19:46:51 11/16/19 18 11/15/2017 uric acid, serum or plasm a HGB 15.3 Not Available [facility] [address] [facility] [address], [address], [place], [address], 11/19/2017 19:46:51 11/16/19 18 11/15/2017 uric acid, serum or plasm a HCT 44.1 Not Available [facility] [address] [facility] [address], [address], [place], [address], 11/19/2017 19:46:51 11/16/19 18 11/15/2017 uric acid, serum or plasm a WBC 6.6 Not Available [facility] [address] [facility] [address], [address], [place], [address], 11/19/2017 19:46:51 11/16/19 18 11/15/2017 uric acid, serum or plasm a plt 275 Not Available [facility] [address] [facility] [address], [address], [place], [address], 11/19/2017 19:46:51 11/16/19 18 11/15/2017 uric acid, serum or plasm a sodium, serum 137 Not Available [facility] [address] [facility] [address], [address], [place], [address], 11/19/2017 19:46:51 11/16/19 18 11/15/2017 uric acid, serum or plasm a potassium, seerum 4.0 Not Available [facility] [address] [facility] [address], [address], [place], [address], 11/19/2017 19:46:51 11/16/19 18 11/15/2017 uric acid, serum or plasm a chloride, serum 96 Not Available [facility] [address] [facility] [address], [address], [place], [address], 11/19/2017 19:46:51 11/16/19 18 11/15/2017 uric acid, serum or plasm a carbon dioxide 27 Not Available [facility] [address] [facility] [address], [address], [place], [address], 11/19/2017 19:46:51 11/16/19 18 11/15/2017 uric acid, serum or plasm a calcium, serum 9.5 Not Available [facility] [address], [address], [place], [address], 11/19/2017 19:46:51 11/16/19 18 11/15/2017 uric acid, serum or plasm a glucose, serum 92 Not Available [facility] [address] [facility] [address], [address], [place], [address], 11/19/2017 19:46:51 11/16/19 18 11/15/2017 uric acid, serum or plasm a BUN 27 Not Available [facility] [address] [facility] [address], [address], [place], [address], 11/19/2017 19:46:51 11/16/19 18 11/15/2017 uric acid, serum or plasm a creatinine 1.63 Not Available [facility] [address] [facility] [address], [address], [place], [address], 11/19/2017 19:46:51 11/16/19 18 11/15/2017 uric acid, serum or plasm a GFR 43 Not Available [facility] [address] [facility] [address], [address], [place], [address], 11/19/2017 19:46:51 11/16/19 18 11/15/2017 uric acid, serum or plasm a bilirubin, total 0.6 Not Available [facility] [address] [facility] [address], [address], [place], [address], 11/19/2017 19:46:51 11/16/19 18 11/15/2017 uric acid, serum or plasm a albumin, serum 4.5 Not Available [facility] [address] [facility] [address], [address], [place], [address], 11/19/2017 19:46:51 11/16/19 18 11/15/2017 uric acid, serum or plasm a protein, total, serum 7.5 Not Available [facility] [place] [facility] [address] [facility] [address], [address], [place], [address], 11/19/2017 19:46:51 11/16/19 18 11/15/2017 uric acid, serum or plasm a magnesium 1.8 Not Available [facility] [address] [facility] [address], [address], [place], [address], 11/19/2017 19:46:51 11/16/19 18 11/15/2017 uric acid, serum or plasm a phosphorus 3.6 Not Available [facility] [address] [facility] [address], [address], [place], [address], 11/19/2017 19:46:51 11/16/19 18 11/15/2017 uric acid, serum or plasm a uric acid 5.6 Not Available [facility] [address] [facility] [address], [address], [place], [address], 11/19/2017 19:46:51 11/16/19 18 11/15/2017 phosp horus , blood color, urine light, yellow Not Available [facility] [address] [facility] [address], [address], [place], [address], 11/19/2017 19:46:50 11/16/19 18 11/15/2017 phosp horus , blood clarity, urine clear Not Available [facility] [address] [facility] [address], [address], [place], [address], 11/19/2017 19:46:50 11/16/19 18 11/15/2017 phosp horus , blood pH, urine 6.0 Not Available [facility] [address] [facility] [address], [address], [place], [address], 11/19/2017 19:46:50 11/16/19 18 11/15/2017 phosp horus , blood specific gravity, urine 1.010 Not Available [facility] [address] [facility] [address], [address], [place], [address], 11/19/2017 19:46:50 11/16/19 18 11/15/2017 phosp horus , blood protein, total, urine 30 Not Available [facility] [place] [facility] [address] [facility] [address], [address], [place], [address], 11/19/2017 19:46:50 11/16/19 18 11/15/2017 phosp horus , blood glucose, urine negati ve Not Available [facility] [address] [facility] [address], [address], [place], [address], 11/19/2017 19:46:50 11/16/19 18 11/15/2017 phosp horus , blood ketones, urine negati ve Not Available [facility] [address], [address], [place], [address], 11/19/2017 19:46:50 11/16/19 18 11/15/2017 phosp horus , blood bilirubin, urine negati ve Not Available [facility] [address], [address], [place], [address], 11/19/2017 19:46:50 11/16/19 18 11/15/2017 phosp horus , blood blood, urine negati ve Not Available [facility] [address] [facility] [address], [address], [place], [address], 11/19/2017 19:46:50 11/16/19 18 11/15/2017 phosp horus , blood nitrite, urine negati ve Not Available [facility] [address] [facility] [address], [address], [place], [address], 11/19/2017 19:46:50 11/16/19 18 11/15/2017 phosp horus , blood leukocyte esterase, urine negati ve Not Available [facility] [address] [facility] [address], [address], [place], [address], 11/19/2017 19:46:50 11/16/19 18 11/15/2017 phosp horus , blood urobilinogen , urine <2.0 Not Available [facility] [address] [facility] [address], [place], [address], 11/19/2017 19:46:50 11/16/19 18 11/15/2017 phosp horus , blood WBC casts, urine <1 Not Available [facility] [address] [facility] [address], [place], [address], 11/19/2017 19:46:50 11/16/19 18 11/15/2017 phosp horus , blood red blood cells, urine 0 Not Available [facility] [place] [facility] [address] [facility] [address], [address], [place], [address], 11/19/2017 19:46:50 11/16/19 18 11/15/2017 phosp horus , blood epithelial cells, urine <1 Not Available [facility] [place] [facility] [address] [facility] [address], [address], [place], [address], 11/19/2017 19:46:50 11/16/19 18 11/15/2017 phosp horus , blood protein, urine, random 10.1 Not Available [facility] [address], [place], [address], 11/19/2017 19:46:50 11/16/19 18 11/15/2017 phosp horus , blood creatinine, urine, random 48.7 Not Available [facility] [address], [place], [address], 11/19/2017 19:46:50 11/16/19 18 11/15/2017 phosp horus , blood HGB 15.3 Not Available [facility] [address], [place], [address], 11/19/2017 19:46:50 11/16/19 18 11/15/2017 phosp horus , blood HCT 44.1 Not Available [facility] [address], [address], [place], [address], 11/19/2017 19:46:50 11/16/19 18 11/15/2017 phosp horus , blood WBC 6.6 Not Available [facility] [address], [place], [address], 11/19/2017 19:46:50 11/16/19 18 11/15/2017 phosp horus , blood plt 275 Not Available [facility] [address], [place], [address], 11/19/2017 19:46:50 11/16/19 18 11/15/2017 phosp horus , blood sodium, serum 137 Not Available [facility] [address], [place], [address], 11/19/2017 19:46:50 11/16/19 18 11/15/2017 phosp horus , blood potassium, seerum 4.0 Not Available [facility] [address] [facility] [address], [place], [address], 11/19/2017 19:46:50 11/16/19 18 11/15/2017 phosp horus , blood chloride, serum 96 Not Available [facility] [address], [place], [address], 11/19/2017 19:46:50 11/16/19 18 11/15/2017 phosp horus , blood carbon dioxide 27 Not Available [facility] [address], [place], [address], 11/19/2017 19:46:50 11/16/19 18 11/15/2017 phosp horus , blood calcium, serum 9.5 Not Available [facility] [address], [place], [address], 11/19/2017 19:46:50 11/16/19 18 11/15/2017 phosp horus , blood glucose, serum 92 Not Available [facility] [address], [place], [address], 11/19/2017 19:46:50 11/16/19 18 11/15/2017 phosp horus , blood BUN 27 Not Available [facility] [address], [place], [address], 11/19/2017 19:46:50 11/16/19 18 11/15/2017 phosp horus , blood creatinine 1.63 Not Available [facility] [address], [place], [address], 11/19/2017 19:46:50 11/16/19 18 11/15/2017 phosp horus , blood GFR 43 Not Available [facility] [address], [place], [address], 11/19/2017 19:46:50 11/16/19 18 11/15/2017 phosp horus , blood bilirubin, total 0.6 Not Available [facility] [address] [facility] [address], [place], [address], 11/19/2017 19:46:50 11/16/19 18 11/15/2017 phosp horus , blood albumin, serum 4.5 Not Available [facility] [address] [facility] [address], [place], [address], 11/19/2017 19:46:50 11/16/19 18 11/15/2017 phosp horus , blood protein, total, serum 7.5 Not Available [facility] [place] [facility] [address] [facility] [address], [place], [address], 11/19/2017 19:46:50 11/16/19 18 11/15/2017 phosp horus , blood magnesium 1.8 Not Available [facility] [address] [facility] [address], [place], [address], 11/19/2017 19:46:50 11/16/19 18 11/15/2017 phosp horus , blood phosphorus 3.6 Not Available [facility] [address] [facility] [address], [place], [address], 11/19/2017 19:46:50 11/16/19 18 11/15/2017 phosp horus , blood uric acid 5.6 Not Available [facility] [address] [facility] [address], [place], [address], 11/19/2017 19:46:50 11/16/19 18 11/15/2017 magne sium, blood color, urine light, yellow Not Available [facility] [address] [facility] [address], [place], [address], 11/19/2017 19:46:50 11/16/19 18 11/15/2017 magne sium, blood clarity, urine clear Not Available [facility] [address] [facility] [address], [place], [address], 11/19/2017 19:46:50 11/16/19 18 11/15/2017 magne sium, blood pH, urine 6.0 Not Available [facility] [address] [facility] [address], [place], [address], 11/19/2017 19:46:50 11/16/19 18 11/15/2017 magne sium, blood specific gravity, urine 1.010 Not Available [facility] [address] [facility] [address], [place], [address], 11/19/2017 19:46:50 11/16/19 18 11/15/2017 magne sium, blood protein, total, urine 30 Not Available [facility] [place] [facility] [address] [facility] [address], [place], [address], 11/19/2017 19:46:50 11/16/19 18 11/15/2017 magne sium, blood glucose, urine negati ve Not Available [facility] [address] [facility] [address], [place], [address], 11/19/2017 19:46:50 11/16/19 18 11/15/2017 magne sium, blood ketones, urine negati ve Not Available [facility] [address] [facility] [address], [place], [address], 11/19/2017 19:46:50 11/16/19 18 11/15/2017 magne sium, blood bilirubin, urine negati ve Not Available [facility] [address] [facility] [address], [place], [address], 11/19/2017 19:46:50 11/16/19 18 11/15/2017 magne sium, blood blood, urine negati ve Not Available [facility] [address] [facility] [address], [place], [address], 11/19/2017 19:46:50 11/16/19 18 11/15/2017 magne sium, blood nitrite, urine negati ve Not Available [facility] [address] [facility] [address], [place], [address], 11/19/2017 19:46:50 11/16/19 18 11/15/2017 magne sium, blood leukocyte esterase, urine negati ve Not Available [facility] [address] [facility] [address], [place], [address], 11/19/2017 19:46:50 11/16/19 18 11/15/2017 magne sium, blood urobilinogen , urine <2.0 Not Available [facility] [address] [facility] [address], [place], [address], 11/19/2017 19:46:50 11/16/19 18 11/15/2017 magne sium, blood WBC casts, urine <1 Not Available [facility] [address] [facility] [address], [place], [address], 11/19/2017 19:46:50 11/16/19 18 11/15/2017 magne sium, blood red blood cells, urine 0 Not Available [facility] [place] [facility] [address] [facility] [address], [place], [address], 11/19/2017 19:46:50 11/16/19 18 11/15/2017 magne sium, blood epithelial cells, urine <1 Not Available [facility] [place] [facility] [address] [facility] [address], [place], [address], 11/19/2017 19:46:50 11/16/19 18 11/15/2017 magne sium, blood protein, urine, random 10.1 Not Available [facility] [address] [facility] [address], [place], [address], 11/19/2017 19:46:50 11/16/19 18 11/15/2017 magne sium, blood creatinine, urine, random 48.7 Not Available [facility] [address] [facility] [address], [place], [address], 11/19/2017 19:46:50 11/16/19 18 11/15/2017 magne sium, blood HGB 15.3 Not Available [facility] [address] [facility] [address], [place], [address], 11/19/2017 19:46:50 11/16/19 18 11/15/2017 magne sium, blood HCT 44.1 Not Available [facility] [address] [facility] [address], [place], [address], 11/19/2017 19:46:50 11/16/19 18 11/15/2017 magne sium, blood WBC 6.6 Not Available [facility] [address] [facility] [address], [address], [place], [address], 11/19/2017 19:46:50 11/16/19 18 11/15/2017 magne sium, blood plt 275 Not Available [facility] [address] [facility] [address], [address], [place], [address], 11/19/2017 19:46:50 11/16/19 18 11/15/2017 magne sium, blood sodium, serum 137 Not Available [facility] [address] [facility] [address], [address], [place], [address], 11/19/2017 19:46:50 11/16/19 18 11/15/2017 magne sium, blood potassium, seerum 4.0 Not Available [facility] [address] [facility] [address], [address], [place], [address], 11/19/2017 19:46:50 11/16/19 18 11/15/2017 magne sium, blood chloride, serum 96 Not Available [facility] [address] [facility] [address], [address], [place], [address], 11/19/2017 19:46:50 11/16/19 18 11/15/2017 magne sium, blood carbon dioxide 27 Not Available [facility] [address] [facility] [address], [address], [place], [address], 11/19/2017 19:46:50 11/16/19 18 11/15/2017 magne sium, blood calcium, serum 9.5 Not Available [facility] [address] [facility] [address], [address], [place], [address], 11/19/2017 19:46:50 11/16/19 18 11/15/2017 magne sium, blood glucose, serum 92 Not Available [facility] [address] [facility] [address], [address], [place], [address], 11/19/2017 19:46:50 11/16/19 18 11/15/2017 magne sium, blood BUN 27 Not Available [facility] [address] [facility] [address], [address], [place], [address], 11/19/2017 19:46:50 11/16/19 18 11/15/2017 magne sium, blood creatinine 1.63 Not Available [facility] [address] [facility] [address], [address], [place], [address], 11/19/2017 19:46:50 11/16/19 18 11/15/2017 magne sium, blood GFR 43 Not Available [facility] [address], [place], [address], 11/19/2017 19:46:50 11/16/19 18 11/15/2017 magne sium, blood bilirubin, total 0.6 Not Available [facility], [place], [address], 11/19/2017 19:46:50 11/16/19 18 11/15/2017 magne sium, blood albumin, serum 4.5 Not Available [facility], [place], [address], 11/19/2017 19:46:50 11/16/19 18 11/15/2017 magne sium, blood protein, total, serum 7.5 Not Available [facility] [address], [place], [address], 11/19/2017 19:46:50 11/16/19 18 11/15/2017 magne sium, blood magnesium 1.8 Not Available [facility] [address], [place], [address], 11/19/2017 19:46:50 11/16/19 18 11/15/2017 magne sium, blood phosphorus 3.6 Not Available [facility] [address], [place], [address], 11/19/2017 19:46:50 11/16/19 18 11/15/2017 magne sium, blood uric acid 5.6 Not Available [facility] [address], [place], [address], 11/19/2017 19:46:50 11/16/19 18 11/15/2017 CMP, serum or plasm a color, urine light, yellow Not Available [address], [place], [address], 11/19/2017 19:46:50 11/16/19 18 11/15/2017 CMP, serum or plasm a clarity, urine clear Not Available [address], [place], [address], 11/19/2017 19:46:50 11/16/19 18 11/15/2017 CMP, serum or plasm a pH, urine 6.0 Not Available [address], [place], [address], 11/19/2017 19:46:50 11/16/19 18 11/15/2017 CMP, serum or plasm a specific gravity, urine 1.010 Not Available [address], [place], [address], 11/19/2017 19:46:50 11/16/19 18 11/15/2017 CMP, serum or plasm a protein, total, urine 30 Not Available [address], [place], [address], 11/19/2017 19:46:50 11/16/19 18 11/15/2017 CMP, serum or plasm a glucose, urine negati ve Not Available [facility] [address], [place], [address], 11/19/2017 19:46:50 11/16/19 18 11/15/2017 CMP, serum or plasm a ketones, urine negati ve Not Available [facility] [address], [place], [address], 11/19/2017 19:46:50 11/16/19 18 11/15/2017 CMP, serum or plasm a bilirubin, urine negati ve Not Available [facility] [address], [place], [address], 11/19/2017 19:46:50 11/16/19 18 11/15/2017 CMP, serum or plasm a blood, urine negati ve Not Available [facility] [address], [place], [address], 11/19/2017 19:46:50 11/16/19 18 11/15/2017 CMP, serum or plasm a nitrite, urine negati ve Not Available [facility] [address] [place], [place] [address]y [address], [address], [place], [address], 11/19/2017 19:46:50 11/16/19 18 11/15/2017 CMP, serum or plasm a leukocyte esterase, urine negati ve Not Available [address], [address], [place], [address], 11/19/2017 19:46:50 11/16/19 18 11/15/2017 CMP, serum or plasm a urobilinogen , urine <2.0 Not Available [address], [address], [place], [address], 11/19/2017 19:46:50 11/16/19 18 11/15/2017 CMP, serum or plasm a WBC casts, urine <1 Not Available [address], [place], [address], 11/19/2017 19:46:50 11/16/19 18 11/15/2017 CMP, serum or plasm a red blood cells, urine 0 Not Available [facility] [place] [facility] [address], [place], [address], 11/19/2017 19:46:50 11/16/19 18 11/15/2017 CMP, serum or plasm a epithelial cells, urine <1 Not Available [facility] [address] [facility] [address], [address], [place], [address], 11/19/2017 19:46:50 11/16/19 18 11/15/2017 CMP, serum or plasm a protein, urine, random 10.1 Not Available [facility] [address] [facility] [address], [address], [place], [address], 11/19/2017 19:46:50 11/16/19 18 11/15/2017 CMP, serum or plasm a creatinine, urine, random 48.7 Not Available [facility] [address] [facility] [address], [address], [place], [address], 11/19/2017 19:46:50 11/16/19 18 11/15/2017 CMP, serum or plasm a HGB 15.3 Not Available [address], [address], [place], [address], 11/19/2017 19:46:50 11/16/19 18 11/15/2017 CMP, serum or plasm a HCT 44.1 Not Available [facility] [address] [facility] [address], [address], [place], [address], 11/19/2017 19:46:50 11/16/19 18 11/15/2017 CMP, serum or plasm a WBC 6.6 Not Available [facility] [address], [address], [place], [address], 11/19/2017 19:46:50 11/16/19 18 11/15/2017 CMP, serum or plasm a plt 275 Not Available [facility] [address] [facility] [address], [address], [place], [address], 11/19/2017 19:46:50 11/16/19 18 11/15/2017 CMP, serum or plasm a sodium, serum 137 Not Available [address], [place], [address], 11/19/2017 19:46:50 11/16/19 18 11/15/2017 CMP, serum or plasm a potassium, seerum 4.0 Not Available [facility] [address] [facility] [address], [address], [place], [address], 11/19/2017 19:46:50 11/16/19 18 11/15/2017 CMP, serum or plasm a chloride, serum 96 Not Available [facility] [address] [facility] [address], [address], [place], [address], 11/19/2017 19:46:50 11/16/19 18 11/15/2017 CMP, serum or plasm a carbon dioxide 27 Not Available [facility] [address] [facility] [address], [address], [place], [address], 11/19/2017 19:46:50 11/16/19 18 11/15/2017 CMP, serum or plasm a calcium, serum 9.5 Not Available [facility] [address] [place] [address], [address], [place], [address], 11/19/2017 19:46:50 11/16/19 18 11/15/2017 CMP, serum or plasm a glucose, serum 92 Not Available [facility] [address] [facility] [address], [address], [place], [address], 11/19/2017 19:46:50 11/16/19 18 11/15/2017 CMP, serum or plasm a BUN 27 Not Available [facility] [address] [place] [address], [address], [place], [address], 11/19/2017 19:46:50 11/16/19 18 11/15/2017 CMP, serum or plasm a creatinine 1.63 Not Available [facility] [address] [facility] [address], [address], [place], [address], 11/19/2017 19:46:50 11/16/19 18 11/15/2017 CMP, serum or plasm a GFR 43 Not Available [facility] [address] [facility] [address], [address], [place], [address], 11/19/2017 19:46:50 11/16/19 18 11/15/2017 CMP, serum or plasm a bilirubin, total 0.6 Not Available [facility] [address], [place], [address], 11/19/2017 19:46:50 11/16/19 18 11/15/2017 CMP, serum or plasm a albumin, serum 4.5 Not Available [facility] [address], [place], [address], 11/19/2017 19:46:50 11/16/19 18 11/15/2017 CMP, serum or plasm a protein, total, serum 7.5 Not Available [facility] [place] [facility] [address], [place], [address], 11/19/2017 19:46:50 11/16/19 18 11/15/2017 CMP, serum or plasm a magnesium 1.8 Not Available [facility] [address], [place], [address], 11/19/2017 19:46:50 11/16/19 18 11/15/2017 CMP, serum or plasm a phosphorus 3.6 Not Available [facility] [address] [facility] [address], [place], [address], 11/19/2017 19:46:50 11/16/19 18 11/15/2017 CMP, serum or plasm a uric acid 5.6 Not Available [facility] [address], [place], [address], 11/19/2017 19:46:50 11/16/19 18 11/15/2017 CBC w/ auto diff color, urine light, yellow Not Available [facility] [address] [facility] [address], [place], [address], 11/19/2017 19:46:50 11/16/19 18 11/15/2017 CBC w/ auto diff clarity, urine clear Not Available [facility] [address] [facility] [address], [address], [place], [address], 11/19/2017 19:46:50 11/16/19 18 11/15/2017 CBC w/ auto diff pH, urine 6.0 Not Available [facility] [address] [place] [address], [address], [place], [address], 11/19/2017 19:46:50 11/16/19 18 11/15/2017 CBC w/ auto diff specific gravity, urine 1.010 Not Available [facility] [address] [facility] [address], [address], [place], [address], 11/19/2017 19:46:50 11/16/19 18 11/15/2017 CBC w/ auto diff protein, total, urine 30 Not Available [facility] [place] [facility] [address] [facility] [address], [address], [place], [address], 11/19/2017 19:46:50 11/16/19 18 11/15/2017 CBC w/ auto diff glucose, urine negati ve Not Available [facility] [address] [facility] [address], [place], [address], 11/19/2017 19:46:50 11/16/19 18 11/15/2017 CBC w/ auto diff ketones, urine negati ve Not Available [facility] [address] [facility] [address], [address], [place], [address], 11/19/2017 19:46:50 11/16/19 18 11/15/2017 CBC w/ auto diff bilirubin, urine negati ve Not Available [facility] [address] [facility] [address], [address], [place], [address], 11/19/2017 19:46:50 11/16/19 18 11/15/2017 CBC w/ auto diff blood, urine negati ve Not Available [facility] [address] [facility] [address], [address], [place], [address], 11/19/2017 19:46:50 11/16/19 18 11/15/2017 CBC w/ auto diff nitrite, urine negati ve Not Available [facility] [address], [place], [address], 11/19/2017 19:46:50 11/16/19 18 11/15/2017 CBC w/ auto diff leukocyte esterase, urine negati ve Not Available [facility] [address], [place], [address], 11/19/2017 19:46:50 11/16/19 18 11/15/2017 CBC w/ auto diff urobilinogen , urine <2.0 Not Available [facility] [address], [place], [address], 11/19/2017 19:46:50 11/16/19 18 11/15/2017 CBC w/ auto diff WBC casts, urine <1 Not Available [facility] [address] [facility] [address], [place], [address], 11/19/2017 19:46:50 11/16/19 18 11/15/2017 CBC w/ auto diff red blood cells, urine 0 Not Available [facility] [place] [facility] [address] [facility] [address], [address], [place], [address], 11/19/2017 19:46:50 11/16/19 18 11/15/2017 CBC w/ auto diff epithelial cells, urine <1 Not Available [facility] [place] [facility] [address] [facility] [address], [address], [place], [address], 11/19/2017 19:46:50 11/16/19 18 11/15/2017 CBC w/ auto diff protein, urine, random 10.1 Not Available [facility] [address] [facility] [address], [address], [place], [address], 11/19/2017 19:46:50 11/16/19 18 11/15/2017 CBC w/ auto diff creatinine, urine, random 48.7 Not Available [facility] [address] [facility] [address], [address], [place], [address], 11/19/2017 19:46:50 11/16/19 18 11/15/2017 CBC w/ auto diff HGB 15.3 Not Available [facility] [address] [facility] [address], [address], [place], [address], 11/19/2017 19:46:50 11/16/19 18 11/15/2017 CBC w/ auto diff HCT 44.1 Not Available [facility] [address] [facility] [address], [address], [place], [address], 11/19/2017 19:46:50 11/16/19 18 11/15/2017 CBC w/ auto diff WBC 6.6 Not Available [facility] [address] [facility] [address], [address], [place], [address], 11/19/2017 19:46:50 11/16/19 18 11/15/2017 CBC w/ auto diff plt 275 Not Available [facility] [address] [facility] [address], [place], [address], 11/19/2017 19:46:50 11/16/19 18 11/15/2017 CBC w/ auto diff sodium, serum 137 Not Available [facility] [address] [facility] [address], [address], [place], [address], 11/19/2017 19:46:50 11/16/19 18 11/15/2017 CBC w/ auto diff potassium, seerum 4.0 Not Available [facility] [address], [address], [place], [address], 11/19/2017 19:46:50 11/16/19 18 11/15/2017 CBC w/ auto diff chloride, serum 96 Not Available [facility] [address] [place] [address], [address], [place], [address], 11/19/2017 19:46:50 11/16/19 18 11/15/2017 CBC w/ auto diff carbon dioxide 27 Not Available [facility] [address], [address], [place], [address], 11/19/2017 19:46:50 11/16/19 18 11/15/2017 CBC w/ auto diff calcium, serum 9.5 Not Available [facility] [address], [place], [address], 11/19/2017 19:46:50 11/16/19 18 11/15/2017 CBC w/ auto diff glucose, serum 92 Not Available [facility] [address], [place], [address], 11/19/2017 19:46:50 11/16/19 18 11/15/2017 CBC w/ auto diff BUN 27 Not Available [facility] [address], [place], [address], 11/19/2017 19:46:50 11/16/19 18 11/15/2017 CBC w/ auto diff creatinine 1.63 Not Available [facility] [address], [place], [address], 11/19/2017 19:46:50 11/16/19 18 11/15/2017 CBC w/ auto diff GFR 43 Not Available [facility] [address] [facility] [address], [place], [address], 11/19/2017 19:46:50 11/16/19 18 11/15/2017 CBC w/ auto diff bilirubin, total 0.6 Not Available [facility] [address] [facility] [address], [place], [address], 11/19/2017 19:46:50 11/16/19 18 11/15/2017 CBC w/ auto diff albumin, serum 4.5 Not Available [facility] [address] [facility] [address], [address], [place], [address], 11/19/2017 19:46:50 11/16/19 18 11/15/2017 CBC w/ auto diff protein, total, serum 7.5 Not Available [facility] [place] [facility] [address] [facility] [address], [address], [place], [address], 11/19/2017 19:46:50 11/16/19 18 11/15/2017 CBC w/ auto diff magnesium 1.8 Not Available [facility] [address] [facility] [address], [address], [place], [address], 11/19/2017 19:46:50 11/16/19 18 11/15/2017 CBC w/ auto diff phosphorus 3.6 Not Available [facility] [address] [facility] [address], [address], [place], [address], 11/19/2017 19:46:50 11/16/19 18 11/15/2017 CBC w/ auto diff uric acid 5.6 Not Available [facility] [address] [facility] [address], [address], [place], [address], 11/19/2017 19:46:50 11/16/19 18 11/15/2017 prote in:cr eatin ine ratio , urine color, urine light, yellow Not Available [facility] [address] [place], [place] [address]za y [address], [address], [place], [address], 11/19/2017 19:46:50 11/16/19 18 11/15/2017 prote in:cr eatin ine ratio , urine clarity, urine clear Not Available [facility] [address], [place], [address], 11/19/2017 19:46:50 11/16/19 18 11/15/2017 prote in:cr eatin ine ratio , urine pH, urine 6.0 Not Available [facility] [address], [place], [address], 11/19/2017 19:46:50 11/16/19 18 11/15/2017 prote in:cr eatin ine ratio , urine specific gravity, urine 1.010 Not Available [facility] [address] [place], [place] [address]y [address], [address], [place], [address], 11/19/2017 19:46:50 11/16/19 18 11/15/2017 prote in:cr eatin ine ratio , urine protein, total, urine 30 Not Available [facility] [place] [facility] [address], [place], [address], 11/19/2017 19:46:50 11/16/19 18 11/15/2017 prote in:cr eatin ine ratio , urine glucose, urine negati ve Not Available [facility] [address] [place], [place] [address]y [address], [address], [place], [address], 11/19/2017 19:46:50 11/16/19 18 11/15/2017 prote in:cr eatin ine ratio , urine ketones, urine negati ve Not Available [facility] [address] [place], [place] [address]y [address], [address], [place], [address], 11/19/2017 19:46:50 11/16/19 18 11/15/2017 prote in:cr eatin ine ratio , urine bilirubin, urine negati ve Not Available [facility] [address] [address], [place], [address], 11/19/2017 19:46:50 11/16/19 18 11/15/2017 prote in:cr eatin ine ratio , urine blood, urine negati ve Not Available [facility] [address], [place], [address], 11/19/2017 19:46:50 11/16/19 18 11/15/2017 prote in:cr eatin ine ratio , urine nitrite, urine negati ve Not Available [facility] [address], [place], [address], 11/19/2017 19:46:50 11/16/19 18 11/15/2017 prote in:cr eatin ine ratio , urine leukocyte esterase, urine negati ve Not Available [facility] [address] [facility] [address], [place], [address], 11/19/2017 19:46:50 11/16/19 18 11/15/2017 prote in:cr eatin ine ratio , urine urobilinogen , urine <2.0 Not Available [facility] [address] [facility] [address], [place], [address], 11/19/2017 19:46:50 11/16/19 18 11/15/2017 prote in:cr eatin ine ratio , urine WBC casts, urine <1 Not Available [facility] [address], [place], [address], 11/19/2017 19:46:50 11/16/19 18 11/15/2017 prote in:cr eatin ine ratio , urine red blood cells, urine 0 Not Available [facility] [place] [facility] [address] [facility] [address], [address], [place], [address], 11/19/2017 19:46:50 11/16/19 18 11/15/2017 prote in:cr eatin ine ratio , urine epithelial cells, urine <1 Not Available [facility] [place] [facility] [address] [facility] [address], [address], [place], [address], 11/19/2017 19:46:50 11/16/19 18 11/15/2017 prote in:cr eatin ine ratio , urine protein, urine, random 10.1 Not Available [facility] [address] [facility] [address], [place], [address], 11/19/2017 19:46:50 11/16/19 18 11/15/2017 prote in:cr eatin ine ratio , urine creatinine, urine, random 48.7 Not Available [facility] [address] [facility] [address], [place], [address], 11/19/2017 19:46:50 11/16/19 18 11/15/2017 prote in:cr eatin ine ratio , urine HGB 15.3 Not Available [facility] [address] [facility] [address], [place], [address], 11/19/2017 19:46:50 11/16/19 18 11/15/2017 prote in:cr eatin ine ratio , urine HCT 44.1 Not Available [facility] [address] [facility] [address], [place], [address], 11/19/2017 19:46:50 11/16/19 18 11/15/2017 prote in:cr eatin ine ratio , urine WBC 6.6 Not Available [facility] [address] [facility] [address], [place], [address], 11/19/2017 19:46:50 11/16/19 18 11/15/2017 prote in:cr eatin ine ratio , urine plt 275 Not Available [facility] [address], [place], [address], 11/19/2017 19:46:50 11/16/19 18 11/15/2017 prote in:cr eatin ine ratio , urine sodium, serum 137 Not Available [facility] [address] [facility] [address], [place], [address], 11/19/2017 19:46:50 11/16/19 18 11/15/2017 prote in:cr eatin ine ratio , urine potassium, seerum 4.0 Not Available [facility] [address] [facility] [address], [address], [place], [address], 11/19/2017 19:46:50 11/16/19 18 11/15/2017 prote in:cr eatin ine ratio , urine chloride, serum 96 Not Available [facility] [address], [place], [address], 11/19/2017 19:46:50 11/16/19 18 11/15/2017 prote in:cr eatin ine ratio , urine carbon dioxide 27 Not Available [facility] [address] [place] [address], [place], [address], 11/19/2017 19:46:50 11/16/19 18 11/15/2017 prote in:cr eatin ine ratio , urine calcium, serum 9.5 Not Available [facility] [address] [facility] [address], [place], [address], 11/19/2017 19:46:50 11/16/19 18 11/15/2017 prote in:cr eatin ine ratio , urine glucose, serum 92 Not Available [facility] [address] [facility] [address], [place], [address], 11/19/2017 19:46:50 11/16/19 18 11/15/2017 prote in:cr eatin ine ratio , urine BUN 27 Not Available [facility] [address] [place] [address] [address], [address], [place], [address], 11/19/2017 19:46:50 11/16/19 18 11/15/2017 prote in:cr eatin ine ratio , urine creatinine 1.63 Not Available [facility] [address] [facility] [address], [address], [place], [address], 11/19/2017 19:46:50 11/16/19 18 11/15/2017 prote in:cr eatin ine ratio , urine GFR 43 Not Available [facility] [address] [place] [address] [address], [address], [place], [address], 11/19/2017 19:46:50 11/16/19 18 11/15/2017 prote in:cr eatin ine ratio , urine bilirubin, total 0.6 Not Available [facility] [address] [facility] [address], [address], [place], [address], 11/19/2017 19:46:50 11/16/19 18 11/15/2017 prote in:cr eatin ine ratio , urine albumin, serum 4.5 Not Available [facility] [address] [facility] [address], [address], [place], [address], 11/19/2017 19:46:50 11/16/19 18 11/15/2017 prote in:cr eatin ine ratio , urine protein, total, serum 7.5 Not Available [facility] [place] [facility] [address] [facility] [address], [address], [place], [address], 11/19/2017 19:46:50 11/16/19 18 11/15/2017 prote in:cr eatin ine ratio , urine magnesium 1.8 Not Available [facility] [address], [place], [address], 11/19/2017 19:46:50 11/16/19 18 11/15/2017 prote in:cr eatin ine ratio , urine phosphorus 3.6 Not Available [facility] [address], [place], [address], 11/19/2017 19:46:50 11/16/19 18 11/15/2017 prote in:cr eatin ine ratio , urine uric acid 5.6 Not Available [facility] [address], [place], [address], 11/19/2017 19:46:50 05/07/20 18 05/07/2018 lipid panel [...] , urine glucose 96 normal Not Available [facility] [address] [facility] [address], [place], [address], 09/17/2018 17:00:34 08/29/20 18 08/29/2018 prote in:cr eatin ine ratio , urine BUN 25 high Not Available [facility] [address] [facility] [address], [address], [place], [address], 09/17/2018 17:00:34 08/29/20 18 08/29/2018 prote in:cr eatin ine ratio , urine creatinine 1.51 high Not Available [facility] [address] [facility] [address], [address], [place], [address], 09/17/2018 17:00:34 08/29/20 18 08/29/2018 prote in:cr eatin ine ratio , urine sodium, serum 139 normal Not Available [facility] [address] [place] [address] [address], [address], [place], [address], 09/17/2018 17:00:34 08/29/20 18 08/29/2018 prote in:cr eatin ine ratio , urine potassium, serum 3.9 normal Not Available [facility] [address] [facility] [address], [address], [place], [address], 09/17/2018 17:00:34 08/29/20 18 08/29/2018 prote in:cr eatin ine ratio , urine chloride, serum 102 normal Not Available [facility] [address] [place] [address] [address], [address], [place], [address], 09/17/2018 17:00:34 08/29/20 18 08/29/2018 prote in:cr eatin ine ratio , urine carbon dioxide 28 normal Not Available [facility] [address] [facility] [address], [address], [place], [address], 09/17/2018 17:00:34 08/29/20 18 08/29/2018 prote in:cr eatin ine ratio , urine album, serum 4.3 normal Not Available [facility] [address] [place] [address] [address], [address], [place], [address], 09/17/2018 17:00:34 08/29/20 18 08/29/2018 prote in:cr eatin ine ratio , urine calcium, serum 9.2 normal Not Available [facility] [address] [place], [place] [address], [address], [place], [address], 09/17/2018 17:00:34 08/29/20 18 08/29/2018 prote in:cr eatin ine ratio , urine alkaline phosphatase 44 normal Not Available [facility] [address] [facility] [address], [address], [place], [address], 09/17/2018 17:00:34 08/29/20 18 08/29/2018 prote in:cr eatin ine ratio , urine bilirubin, total 0.4 normal Not Available [facility] [address] [place], [place] [address], [address], [place], [address], 09/17/2018 17:00:34 08/29/20 18 08/29/2018 prote in:cr eatin ine ratio , urine protein, total, serum 70 normal Not Available [facility] [place] [facility] [address] [place], [place] [address]za y [address], [address], [place], [address], 09/17/2018 17:00:34 08/29/20 18 08/29/2018 prote in:cr eatin ine ratio , urine eGFR 47 low Not Available [facility] [address] [facility] [address], [place], [address], 09/17/2018 17:00:34 08/29/20 18 08/29/2018 prote in:cr eatin ine ratio , urine creatinine, urine 23.0 normal Not Available [facility] [address] [place], [place] [address]za [address], [address], [place], [address], 09/17/2018 17:00:34 08/29/20 18 08/29/2018 prote in:cr eatin ine ratio , urine protein, total, urine, random 9.8 normal Not Available [facility] [address] [facility] [address], [address], [place], [address], 09/17/2018 17:00:34 08/29/20 18 08/29/2018 urina lysis compl ete, refle x cultu re WBC count 6.3 normal Not Available [facility] [address] [facility] [address], [address], [place], [address], 09/17/2018 16:56:21 08/29/20 18 08/29/2018 urina lysis compl ete, refle x cultu re HGB 15 normal Not Available [facility] [address] [facility] [address], [address], [place], [address], 09/17/2018 16:56:21 08/29/20 18 08/29/2018 urina lysis compl ete, refle x cultu re HCT 44.2 normal Not Available [facility] [address], [address], [place], [address], 09/17/2018 16:56:21 08/29/20 18 08/29/2018 urina lysis compl ete, refle x cultu re platelet count 254 normal Not Available [facility] [address], [address], [place], [address], 09/17/2018 16:56:21 08/29/20 18 08/29/2018 CMP, serum or plasm a glucose 96 normal Not Available [facility] [address], [address], [place], [address], 08/29/2018 18:28:02 08/29/20 18 08/29/2018 CMP, serum or plasm a BUN 25 high Not Available [facility] [address], [address], [place], [address], 08/29/2018 18:28:02 08/29/20 18 08/29/2018 CMP, serum or plasm a creatinine 1.51 high Not Available [facility] [address] [facility] [address], [address], [place], [address], 08/29/2018 18:28:02 08/29/20 18 08/29/2018 CMP, serum or plasm a sodium, serum 139 normal Not Available [facility] [address] [facility] [address], [address], [place], [address], 08/29/2018 18:28:02 08/29/20 18 08/29/2018 CMP, serum or plasm a potassium, serum 3.9 normal Not Available [facility] [address] [facility] [address], [address], [place], [address], 08/29/2018 18:28:02 08/29/20 18 08/29/2018 CMP, serum or plasm a chloride, serum 102 normal Not Available [facility] [address], [address], [place], [address], 08/29/2018 18:28:02 08/29/20 18 08/29/2018 CMP, serum or plasm a carbon dioxide 28 normal Not Available [facility] [address], [place], [address], 08/29/2018 18:28:02 08/29/20 18 08/29/2018 CMP, serum or plasm a album, serum 4.3 normal Not Available [facility] [address], [place], [address], 08/29/2018 18:28:02 08/29/20 18 08/29/2018 CMP, serum or plasm a calcium, serum 9.2 normal Not Available [facility] [address] [facility] [address], [place], [address], 08/29/2018 18:28:02 08/29/20 18 08/29/2018 CMP, serum or plasm a alkaline phosphatase 44 normal Not Available [facility] [address], [address], [place], [address], 08/29/2018 18:28:02 08/29/20 18 08/29/2018 CMP, serum or plasm a bilirubin, total 0.4 normal Not Available [address], [address], [place], [address], 08/29/2018 18:28:02 08/29/20 18 08/29/2018 CMP, serum or plasm a protein, total, serum 70 normal Not Available [address], [address], [place], [address], 08/29/2018 18:28:02 08/29/20 18 08/29/2018 CMP, serum or plasm a eGFR 47 low Not Available [facility] [address] [place] [address] [address], [address], [place], [address], 08/29/2018 18:28:02 08/29/20 18 08/29/2018 CMP, serum or plasm a creatinine, urine 23.0 normal Not Available [address], [address], [place], [address], 08/29/2018 18:28:02 08/29/20 18 08/29/2018 CMP, serum or plasm a protein, total, urine, random 9.8 normal Not Available [facility] [address], [address], [place], [address], 08/29/2018 18:28:02 08/29/20 18 08/29/2018 CBC w/ auto diff WBC count 6.3 normal Not Available [address], [place], [address], 08/29/2018 15:25:44 08/29/20 18 08/29/2018 CBC w/ auto diff HGB 15 normal Not Available [facility] [address] [facility] [address], [place], [address], 08/29/2018 15:25:44 08/29/20 18 08/29/2018 CBC w/ auto diff HCT 44.2 normal Not Available [facility] [address] [facility] [address], [place], [address], 08/29/2018 15:25:44 08/29/20 18 08/29/2018 CBC w/ auto diff platelet count 254 normal Not Available [facility] [address] [facility] [address], [place], [address], 08/29/2018 15:25:44 02/11/20 19 02/10/2019 lipid panel [...] , serum glucose 96 normal Not Available [facility] [address], [address], [place], [address], 03/04/2019 18:56:10 03/03/20 19 03/03/2019 renal funct ion panel , serum BUN 26 high Not Available [facility] [address], [place], [address], 03/04/2019 18:56:10 03/03/20 19 03/03/2019 renal funct ion panel , serum creatinine 1.61 normal Not Available [employer] [facility] [address], [address], [place], [address], 03/04/2019 18:56:10 03/03/20 19 03/03/2019 renal funct ion panel , serum sodium, serum 139 normal Not Available [facility] [address], [place], [address], 03/04/2019 18:56:10 03/03/20 19 03/03/2019 renal funct ion panel , serum potassium, serum 3.8 normal Not Available [facility] [address], [address], [place], [address], 03/04/2019 18:56:10 03/03/20 19 03/03/2019 renal funct ion panel , serum chloride, serum 104 normal Not Available [facility] [address], [address], [place], [address], 03/04/2019 18:56:10 03/03/20 19 03/03/2019 renal funct ion panel , serum carbon dioxide 24 normal Not Available [facility] [address], [place], [address], 03/04/2019 18:56:10 03/03/20 19 03/03/2019 renal funct ion panel , serum calcium, serum 9.1 normal normal Not Available [facility] [address], [place], [address], 03/04/2019 18:56:10 03/03/2003/03/2019 renal funct ion panel , serum eGFR 44 low Not Available [facility] [address], [address], [place], [address], 03/04/2019 18:56:10 03/04/20 19 03/04/2019 prote in:cr eatin ine ratio , urine glucose 96 normal Not Available [facility] [address], [address], [place], [address], 03/04/2019 08:17:55 03/04/20 19 03/04/2019 prote in:cr eatin ine ratio , urine BUN 26 high Not Available [facility] [address], [address], [place], [address], 03/04/2019 08:17:55 03/04/20 19 03/04/2019 prote in:cr eatin ine ratio , urine creatinine 1.61 normal Not Available [facility] [address], [place], [address], 03/04/2019 08:17:55 03/04/20 19 03/04/2019 prote in:cr eatin ine ratio , urine sodium, serum 139 normal Not Available [facility] [address], [place], [address], 03/04/2019 08:17:55 03/04/20 19 03/04/2019 prote in:cr eatin ine ratio , urine potassium, serum 3.8 normal Not Available [facility] [address] [facility] [address], [address], [place], [address], 03/04/2019 08:17:55 03/04/20 19 03/04/2019 prote in:cr eatin ine ratio , urine chloride, serum 104 normal Not Available [facility] [address] [facility] [address], [address], [place], [address], 03/04/2019 08:17:55 03/04/20 19 03/04/2019 prote in:cr eatin ine ratio , urine carbon dioxide 24 normal Not Available [facility] [address] [facility] [address], [address], [place], [address], 03/04/2019 08:17:55 03/04/20 19 03/04/2019 prote in:cr eatin ine ratio , urine calcium, serum 9.1 normal normal Not Available [facility] [address] [facility] [address], [address], [place], [address], 03/04/2019 08:17:55 03/04/20 19 03/04/2019 prote in:cr eatin ine ratio , urine eGFR 44 low Not Available [facility] [address] [place] [address] [address], [address], [place], [address], 03/04/2019 08:17:55 01/20/20 20 01/20/2020 CMP, serum [...] plasm a HGB 14.5 normal Not Available [employer] [facility] [address] [facility] [address], [place], [address], 11/15/2020 13:57:47 10/24/19 21 10/24/2020 CMP, serum or plasm a HCT 43.1 normal Not Available [facility] [address], [place], [address], 11/15/2020 13:57:47 10/24/19 21 10/24/2020 CMP, serum or plasm a platelet count 242 normal Not Available [facility] [address], [address], [place], [address], 11/15/2020 13:57:47 10/24/19 21 10/24/2020 CMP, serum or plasm a WBC count 4.9 normal Not Available [facility] [address] [facility] [address], [address], [place], [address], 11/15/2020 13:57:47 10/24/19 21 10/24/2020 CMP, serum or plasm a glucose 103 normal Not Available [facility] [address] [facility] [address], [address], [place], [address], 11/15/2020 13:57:47 10/24/19 21 10/24/2020 CMP, serum or plasm a BUN 24 high Not Available [facility] [address] [facility] [address], [place], [address], 11/15/2020 13:57:47 10/24/19 21 10/24/2020 CMP, serum or plasm a creatinine 1.36 high Not Available [facility] [address], [place], [address], 11/15/2020 13:57:47 10/24/19 21 10/24/2020 CMP, serum or plasm a sodium, serum 136 normal Not Available [facility] [address], [address], [place], [address], 11/15/2020 13:57:47 10/24/19 21 10/24/2020 CMP, serum or plasm a potassium, serum 4.2 normal Not Available [facility] [address] [facility] [address], [place], [address], 11/15/2020 13:57:47 10/24/19 21 10/24/2020 CMP, serum or plasm a chloride, serum 102 normal Not Available [facility] [address] [facility] [address], [address], [place], [address], 11/15/2020 13:57:47 10/24/19 21 10/24/2020 CMP, serum or plasm a carbon dixoide 27 normal Not Available [facility] [address] [facility] [address], [address], [place], [address], 11/15/2020 13:57:47 10/24/19 21 10/24/2020 CMP, serum or plasm a album, serum 4.3 normal Not Available [facility] [address] [facility] [address], [address], [place], [address], 11/15/2020 13:57:47 10/24/19 21 10/24/2020 CMP, serum or plasm a calcium, serum 9.5 normal Not Available [facility] [address] [facility] [address], [place], [address], 11/15/2020 13:57:47 10/24/19 21 10/24/2020 CMP, serum or plasm a eGFR 53 low Not Available [facility] [address] [facility] [address], [place], [address], 11/15/2020 13:57:47 10/24/19 21 10/24/2020 CMP, serum or plasm a protein, total, serum 6.7 normal Not Available [facility] [place] [facility] [address] [facility] [address], [place], [address], 11/15/2020 13:57:47 10/24/19 21 10/24/2020 CBC w/ auto diff HGB 14.5 normal Not Available [facility] [address] [facility] [address], [place], [address], 11/02/2020 12:21:14 10/24/19 21 10/24/2020 CBC w/ auto diff HCT 43.1 normal Not Available [facility] [address], [place], [address], 11/02/2020 12:21:14 10/24/19 21 10/24/2020 CBC w/ auto diff platelet count 242 normal Not Available [facility] [address], [place], [address], 11/02/2020 12:21:14 10/24/19 21 10/24/2020 CBC w/ auto diff WBC count 4.9 normal Not Available [facility] [address], [place], [address], 11/02/2020 12:21:14 10/24/19 21 10/24/2020 CBC w/ auto diff glucose 103 normal Not Available [facility] [address], [place], [address], 11/02/2020 12:21:14 10/24/19 21 10/24/2020 CBC w/ auto diff BUN 24 high Not Available [facility] [address], [place], [address], 11/02/2020 12:21:14 10/24/19 21 10/24/2020 CBC w/ auto diff creatinine 1.36 high Not Available [facility] [address], [place], [address], 11/02/2020 12:21:14 10/24/19 21 10/24/2020 CBC w/ auto diff sodium, serum 136 normal Not Available [facility] [address], [place], [address], 11/02/2020 12:21:14 10/24/19 21 10/24/2020 CBC w/ auto diff potassium, serum 4.2 normal Not Available [facility] [address] [facility] [address], [place], [address], 11/02/2020 12:21:14 10/24/19 21 10/24/2020 CBC w/ auto diff chloride, serum 102 normal Not Available [facility] [address] [facility] [address], [place], [address], 11/02/2020 12:21:14 10/24/19 21 10/24/2020 CBC w/ auto diff carbon dixoide 27 normal Not Available [facility] [address] [facility] [address], [place], [address], 11/02/2020 12:21:14 10/24/19 21 10/24/2020 CBC w/ auto diff album, serum 4.3 normal Not Available [facility] [address] [facility] [address], [place], [address], 11/02/2020 12:21:14 10/24/19 21 10/24/2020 CBC w/ auto diff calcium, serum 9.5 normal Not Available [facility] [address] [facility] [address], [place], [address], 11/02/2020 12:21:14 10/24/19 21 10/24/2020 CBC w/ auto diff eGFR 53 low Not Available [facility] [address] [facility] [address], [place], [address], 11/02/2020 12:21:14 10/24/19 21 10/24/2020 CBC w/ auto diff protein, total, serum 6.7 normal Not Available [facility] [place] [facility] [address] [facility] [address], [place], [address], 11/02/2020 12:21:14 05/24/20 17 05/24/2017 [place], janae rowland No observ ation record [email or web address]. [email or web address] Not Available 2016 16:31:59 Result Notes None recorded. Problems Name Problem SNOMED Code Status Onset Date Resolution Date Notes Provider Name and Address Organization Details Recorded Time Chronic kidney disease stage 3 670791466 Active 2013 Not Available [facility] 5 13:00:54 Benign hypertensive renal disease 001020 Active 2013 Not Available [facility] 5 13:00:54 Hyperlipidemi a 91863124 Active 2013 Not Available [facility] 5 13:00:54 Essential hypertension 55910107 [facility] 7 17:03:46 Total nephrectomy Active 2016 [facility] 7 17:03:47 Problem Notes None recorded. Procedures Surgical History Date Name Laterality Status Provider Name and Address Organization Details Recorded Time 6 Other completed [facility], [facility] 08/13/2016 14:20:40 6 Shoulder joint surgery completed [facility], [facility] 08/13/2016 14:21:35 2 [facility]phrectomy [facility] 08/13[facility]2016 14:20:55 Imaging Results Imaging Date Name [...] Updated DateTime 05/29/2017 167.64 cm Peggy Powell [facility] 05/29/2017 16:11:51 Date Recorded Body mass index (BMI) Body weight Provider Name and Address Organization Details Last Updated DateTime 05/29/2017 21 kg/m2 57799.01 g [facility] 05/29/2017 16:11:56 Date Recorded Heart rate Provider Name an d Address Organization Details Last Updated DateTime 05/29/2017 66 /min Peggy Powell [facility] 05/29/2017 16:13:29 Date Recorded Body height Provider Name an d Address Organization Details Last Updated DateTime 11/18/2017 167.64 cm [facility] 11/18/2017 15:34:10 Date Recorded Body mass index (BMI) Body weight Provider Name and Address Organization Details Last Updated DateTime 11/18/2017 21.6 kg/m2 51178.38 g [facility] 11/18/2017 15:34:16 Date Recorded Heart rate Provider Name an d Address Organization Details Last Updated DateTime 11/18/2017 55 /min [facility] 11/18/2017 15:34:36 Date Recorded Body height Provider Name an d Address Organization Details Last Updated DateTime 09/04/2018 167.64 cm An Zayas PA Epi [facility] 09/04/2018 12:16:47 Date Recorded Body mass index (BMI) Body weight Provider Name and Address Organization Details Last Updated DateTime 09/04/2018 22 kg/m2 46032.56 g An Mera bri [facility] [...] Details Last Updated DateTime 03/12/2019 21.5 kg/m2 03854.79 g Leatha Tan [facility] [...] 03/12/2019 124 mm[Hg] 60 mm[Hg] Leatha Buckley [facility], [facility] 03/12/2019 12:50:35 Social History Question Answer Notes LastModified by Organizat ion Details LastModified Time Tobacco Smoking Status Never Smoker [facility] 08/13/2016 14:19:58 Do You Have An Advance [...] History Condition Response Chronic Kidney Disease Y NSAID use Y Hypertension Y Past Encounters Encounter ID Performer Location Encounter Start Date Encounter Closed Date Diagnosis/Indication Diagnosis SNOMED-CT Code Diagnosis ICD10 Code Diagnosis Note [id number] [facility] [address] [place] [address] 03/26/2014 00:00:00 [id number] [facility] [address] [place] [address] 05/24/2014 00:00:00 [id number] MD [facility] [address] [place] [address] 08/13/2016 13:38:15 08/13/2016 14:40:33 Chronic kidney disease stage 3 129846847 N18.3 G3a/A1, without proteinuri a in associatio n with solitary R kidney/CAU and HTN.Cr stable. Essential hypertension 57628968 I10 controlled .recommend ACEI/ARB. Total nephrectomy 953718 003 Z90.5 s/p L nephrectom y for CAU at age 7. [id number] MD [facility] [address] [place] [address] 02/18/2017 16:27:32 02/18/2017 17:20:33 Chronic kidney disease stage 3 573698425 N18.3 G3a/A1, without proteinuri a in associatio n with solitary R kidney/CAU and HTN. Essential hypertension 43607199 I10 controlled .recommend ACEI/ARB. Total nephrectomy 780162 003 Z90.5 s/p L nephrectom y for CAU at age 7. [id number] MD [facility] [address] [place] [address] 05/29/2017 15:45:50 05/29/2017 16:39:59 Chronic kidney disease stage 3 916802283 N18.3 G3a/A1, without proteinuri a in associatio n with solitary R kidney/CAU and HTN. Essential hypertension 52369410 I10 controlled .recommend ACEI/ARB. Total nephrectomy 160285 003 Z90.5 s/p L nephrectom y for CAU at age 7. [id number] MD [facility] [address] [place] [address] 11/18/2017 15:20:10 11/18/2017 15:59:01 Chronic kidney disease stage 3 848344843 N18.3 G3a/A1.wit hout proteinuri a in associatio n with solitary R kidney/CAU and HTN. Essential hypertension 01120936 I10 controlled .stop Amlodipine .change to losartan 50mg qhs. Total nephrectomy 942602 003 Z90.5 s/p L nephrectom y for CAU at age 7. [id number] MD [facility]han [facility] [address] [facility] [place] [address] 09/04/2018 11:50:46 09/04/2018 12:38:35 Chronic kidney disease stage 3 842041829 N18.3 G3a/A1.wit hout proteinuri a in associatio n with solitary R kidney/CAU and HTN.GFR stable Essential hypertension 38816999 I10 controlled .on Norvasc 2.5 mg .Stopped Losartan on his own 6 months ago .Daily BP checks Total nephrectomy 122425 003 Z90.5 s/p L nephrectom y for CAU at age 7. [id number] MD Farhan Michaels d Office [address] [facility] [place] [address] 03/12/2019 12:41:48 03/12/2019 13:20:29 Chronic kidney disease stage 3 797024724 N18.3 G3a/A1.wit hout proteinuri a in associatio n with solitary R kidney/CAU and HTN.GFR stable is 44 today. Discussed with patient control his factors including avoiding NSAIDs and good control of hypertensi on. Hydration. Essential hypertension 95284269 I10 controlled .on Norvasc 2.5 mg .Stopped Losartan on his own 6 months ago .Daily BP checks Total nephrectomy 181866 003 Z90.5 s/p L nephrectom y for CAU at age 7. [id number] MD Farhan Michaels d Office [address] [facility] [place] [address] 02/04/2020 12:58:53 02/04/2020 14:35:10 Chronic kidney disease stage 3 600808381 N18.3 G3a/A1.wit hout proteinuri a in associatio n with solitary R kidney/CAU and HTN.GFR stable is 44 today. Discussed with patient control his factors including avoiding NSAIDs and good control of hypertensi on. Hydration. Discussed with her that he may have enlarged prostate. He will follow-up with urology. Essential hypertension 50658120 I10 controlled .on Norvasc 2.5 mg .Stopped Losartan on his own 6 months ago .Daily BP checks Total nephrectomy 726264 003 Z90.5 s/p L nephrectom y for CAU at age 7. Health Concerns Section Related Observation LastModified by Organization Detai ls LastModified Time None Recorded Concern Status LastModified by Organization Details LastModified Time None Recorded Advance Directives Directive N: Payers Encounter Date Sequence Insurance Name Policy Number Policy Bruno Covered Member ID Bruno Member ID Guarantor Name 05/29/2017 1 [place] Jerry H Pfoutz [id number] Jerry H Pfoutz 11/18/2017 1 [place] Jerry H Pfoutz [id number] Jerry H Pfoutz 09/04/2018 1 [place] Jerry H Pfoutz [id number] 6 Jerry H Pfoutz 03/12/2019 1 [place] Jerry H Pfoutz [id number] 6 Jerry H Pfoutz 02/04/2020 1 [place] Jerry H Pfoutz [id number] 6 Jerry H Pfoutz Notes Date Note [...] Elliott MD [address] ,[address], [place], [address], [facility] [place] Kidney Disease, [facility] 05/29/2017 16:36:36 11/18/2017 text/html 62 year old [...] Elliott MD [address], [place], [address], [facility] Kidney Disease, [facility] 11/18/2017 15:55:32 09/04/2018 text/html 62 year old [...] Brooks MD [address] ,[address], [place], [address], [facility] Kidney Disease, [facility] 09/04/2018 12:42:27 03/12/2019 text/html 62 year old [...] Brooks MD [address], [place], [address], [facility] [place] Kidney Disease, [facility] 03/12/2019 15:11:42 02/04/2020 text/html This visit was [...] Brooks MD [address], [place], [address], [facility] Kidney Disease, [facility] 02/04/2020 16:19:29
--- OUTSIDE RECORDS SUMMARY | 2024-09-30 17:55 | XMS_ITS | Data Portability ---
Author Organization [facility], [facility] Address [address] [place] [address] Care Team Providers Care Bridge Gang Worker Name Role Phone MARINE HAAS Primary Care [...] recorded. Lab urinalysis , dipstick 2022 023 [email or web address] [facility], [address], [place], [address], 12:14:01 urinalysis , dipstick 2022 023 [email or web address] [facility], [address], [place], [address], 15:08:08 Referral None recorded. Procedures None recorded. Surgeries None recorded. Imaging None recorded. Medication Orders None recorded. Patient TargetsNo targets recorded. Patient InstructionsNo instructions recorded. Reason for Referral None Reported. Results Created Date Observation Date Name Description Value Unit Range Abnormal Flag Note LastModifiedBy Organization Detail LastModifiedTime 09/27/1909/27/2022 urina lysis , dipst ick Sp [place]-Stat us 1.005 Not Available [facility] [address], [place], [address], 09/27/2022 12:12:58 09/27/19 23 09/27/2022 urina lysis , dipst ick pH-Status 6.0 Not Available [facility] [address], [place], [address], 09/27/2022 12:12:58 09/27/1909/27/2022 urina lysis , dipst ick Nitrates-Sta tus negati ve Not Available [facility] [address], [place], [address], 09/27/2022 12:12:58 09/27/1909/27/2022 urina lysis , dipst ick Blood-Status Trace Not Available [facility] [address], [place], [address], 09/27/2022 12:12:58 09/27/1909/27/2022 urina lysis , dipst ick Leuko-Status Negati ve Not Available [facility] [address], [place], [address], 09/27/2022 12:12:58 02/28/20 23 02/27/2023 urina lysis , dipst ick Color-Status Yellow Not Available [facility] [address], [place], [address], 02/27/2023 15:07:16 02/28/20 23 02/27/2023 urina lysis , dipst ick Clarity-Stat us Clear Not Available [facility] [address], [place], [address], 02/27/2023 15:07:16 02/28/20 23 02/27/2023 urina lysis , dipst ick Glucose-Stat us Negati ve Not Available [facility] [address], [place], [address], 02/27/2023 15:07:16 02/28/20 23 02/27/2023 urina lysis , dipst ick Nitrates-Sta tus negati ve Not Available [facility] [address], [place], [address], 02/27/2023 15:07:16 02/28/20 23 02/27/2023 urina lysis , dipst ick Blood-Status Negati ve Not Available [facility] [address], [place], [address], 02/27/2023 15:07:16 02/28/20 23 02/27/2023 urina lysis , dipst ick Leuko-Status Negati ve Not Available [facility] [address], [place], [address], 02/27/2023 15:07:16 10/02/19 23 09/27/2022 bladd er scan (PROC ) No observ ation record ed. Not Available 2022 22:09:27 03/01/20 23 02/27/2023 bladd er scan (PROC ) No observ ation record ed. BARCODE Not Available 2022 15:39:28 Result Notes None recorded. Procedures Surgical History Date Name Laterality Status Provider Name and Address Organization Details Recorded Time 5 Bladder Scan cancelled Kayla Denson [facility] 09/11/2024 15:45:28 3 Bladder Scan completed Pilar Smith [facility] 08/22/2023 10:45:31 3 UroCuff completed Erma Alves [facility] 08/08/2023 16:46:48 3 Bladder Scan completed Erma Alves [facility] 08/08/2023 16:22:41 3 Bladder Scan completed Romie Santos [facility] 02/27/2023 15:07:12 3 Bladder Scan completed Venkatesh Ontiveros MD [address] [place] [address], [address] [place] [address] Urology 09/27/2022 12:46:00 0 colonoscopy completed Pilar Smith [facility] 08/22/2023 10:42:53 Imaging Results Imaging Date Name [...] Updated DateTime 09/27/2022 168.91 cm Miriam Rae [facility] 09/27/2022 12:17:56 Date Recorded Body mass index (BMI) Body weight Provider Name and Address Organization Details Last Updated DateTime 09/27/2022 24.6 kg/m2 59367.82 g Miriam Rae [facility] 09/27/2022 12:18:06 Date Recorded Body height Provider Name an d Address Organization Details Last Updated DateTime 02/27/2023 168.91 cm Romie Santos [facility] 02/27/2023 15:03:38 Date Recorded Body mass index (BMI) Body weight Provider Name and Address Organization Details Last Updated DateTime 02/27/2023 24.6 kg/m2 59083.82 g Romie Santos [facility] 02/27/2023 15:03:45 Date Recorded Body height Provider Name an d Address Organization Details Last Updated DateTime 08/22/2023 168.91 cm Pilar Smith [facility] 08/22/2023 10:42:01 Date Recorded Body mass index (BMI) Body weight Provider Name and Address Organization Details Last Updated DateTime 08/22/2023 26.2 kg/m2 10431.74 g Pilar Smith [facility] 08/22/2023 10:42:08 Social History Question Answer Notes LastModified by Organizat ion Details LastModified Time Tobacco Smoking Status Former Smoker Miriam marcelo [facility] 09/27/2022 12:24:21 What Is Your Level Of Alcohol Consumption? None Information not available 02/27/2023 What Is Your Level Of Caffeine Consumption? Moderate Information not available 02/27/2023 Are You Currently Employed? No Information not available 02/27/2023 When Did You Quit Smoking? 1-5yearssince lastcigarette [email or web address] Information not available 08/22/2023 Recreational Drug Use No Information not available 02/27/2023 What Was The Date Of Your Most Recent Tobacco Screening? 08/22/2023 [email or web address] Information not available 08/22/2023 What Is Your [...] 50 mcg/0.5 mL 3 completed Pilar marcelo [facility] 08/22/2023 10:42:13 Influenza, split virus, quadrivalent, PF 3 completed Pilar marcelo [facility] 08/22/2023 10:42:13 zoster recombinant 2 completed [facility] 07/[facility]2023 17:11:29 zoster recombinant 2 completed [facility] 07/03/2023 17:11:29 COVID-19, mRNA, LNP-S, PF, 100 mcg/0.5mL dose or 50 mcg/0.25mL dose 1 completed Jenny marcelo [facility] 07/03/2023 17:11:29 COVID-19, mRNA, LNP-S, PF, 100 mcg/0.5mL dose or 50 mcg/0.25mL dose 1 completed Jenny marcelo [facility] 07/03/2023 17:11:29 COVID-19, mRNA, LNP-S, PF, 100 mcg/0.5mL dose or 50 mcg/0.25mL dose 2 completed Jenny marcelo [facility] 07/03/2023 17:11:29 COVID-19, mRNA, LNP-S, PF, 100 mcg/0.5mL dose or 50 mcg/0.25mL dose 1 completed Jenny marcelo [facility] 07/03/2023 17:11:29 COVID-19, mRNA, LNP-S, bivalent, PF, 50 mcg/0.5 mL or 25mcg/0.25 mL dose 2 completed Jenny marcelo [facility] 07/03/2023 17:11:29 Tdap 9 completed Jenny marcelo [facility] 07/03/2023 17:11:29 Influenza, split virus, trivalent, preservative 8 completed Jenny marcelo [facility] 07/03/2023 17:11:29 Past Encounters Encounter ID Performer Location Encounter Start Date Encounter Closed Date Diagnosis/Indication Diagnosis SNOMED-CT Code Diagnosis ICD10 Code Diagnosis Note [id number] MD Margarette Mcneill [address] [place] [address] 09/27/2022 11:56:38 10/01/2022 14:14:58 Urethral stricture 11882626 N35.919 - Will set up for Q6 month UroCuff- PVR today 134 mL- If evidence of recurrence then would recommend Optilume dilation Recurrent urinary tract infection 842087665 N39.0 - Start TheraCran given recurrent E coli UTIs [id number] MD Margarette Mcneill [address] [place] [address] 02/27/2023 14:11:30 03/07/2023 08:28:19 Urethral stricture 02670034 N35.919 - Will set up for UroCuff- PVR today 21 mL- If evidence of recurrence then would recommend Optilume dilation Recurrent urinary tract infection N39.0 - Start TheraCran given recurrent E coli UTIs- Could also add d-Mannose supplement [id number] Erma Alves [facility] [address] [place] [address] 08/08/2023 10:50:58 08/16/2023 11:25:54 Urethral stricture 96759527 N35.919 [id number] Venkatesh Ontiveros MD [facility] [address] [place] [address] 08/22/2023 10:36:02 09/04/2023 10:08:51 Urethral stricture 98805998 N35.919 - UroCuff reviewed- IPSS: 5 (2)- [...] ID Guarantor Name 09/27/2022 1 [place] [employer] [facility] Jerry Ballesteros [id number] 6 Jerry Greenz 02/27/2023 1 [place] [employer] [facility] Jerry Ballesteros [id number] 6 Jerry Greenz 08/08/2023 1 [place] [employer] [facility] Jerry Ballesteros [id number] 6 Jerry Greenz 08/22/2023 1 [place] [employer] [facility] Jerry Ballesteros [id number] 6 Jerry Ballesteros Notes Date Note Type Note Provider Name and Address Organization Details Recorded Time 09/27/2022 text/html Mr. Ballesteros is a very pleasant 67-year-old male with a history of imperforate anus, solitary kidney, and history of urethral stricture disease requiring multiple dilations. Patient states that his last dilation was about [address] Prabhakar. Was seeing a Glass Technologist while living in [place] but it has been quite some time since he has seen a Urologist. No established nephrology care here in [place]. Current urination consists of: urinary frequency with [...] any more than usual. Venkatesh Ontiveros MD [address] [place] [address],[address], [place], [address] 09/27/2022 12:46:39 02/27/2023 text/html Mr. Ballesteros is a very pleasant 67-year-old male with a history of imperforate anus, solitary kidney, and history of urethral stricture disease requiring multiple dilations. Patient states that his last dilation was about [address] Prabhakar. Was seeing a Glass Technologist while living in [place] but it has been quite some time since he has seen a Urologist. No established nephrology care here in [place]. Current urination consists of: urinary frequency with [...] started cranberry supplement. Venkatesh Ontiveros MD [address], [place], [address], [facility] 02/27/2023 22:10:59 08/22/2023 text/html Mr. Ballesteros is a very pleasant 67-year-old male with a history of imperforate anus, solitary kidney, and history of urethral stricture disease requiring multiple dilations. Patient states that his last dilation was about [address] Prabhakar. Was seeing a Glass Technologist while living in [place] but it has been quite some time since he has seen a Urologist. No established nephrology care here in [place]. Current urination consists of: urinary frequency with [...] UTIs. Venkatesh Ontiveros MD [address], [place], [address], [facility] [place] [facility] 08/22/2023 13:34:58
[2024-09-30 18:00] VITALS: BP 133/97; PULSE 101; RESP 18; TEMP 36.9; O2SAT 95; BMI 25.1
--- NOTE | 2024-09-30 18:20 | ED.MALEGU ---
HPI - Male Genitourinary General Chief complaint: Urogenital Problems, Male Stated complaint: hasn't urinated since this AM Time Seen by Provider: 09/30/24 17:54 History of Present Illness HPI Narrative: This 69-year-old male comes in stating that he has not been able to void urine for the past 12 hours. He did have urinary retention last week and wore a Andre catheter for few days. This was discontinued 6 days ago. He states that he has not been able to pass urine today. He arrives with bladder scan showing 688 mL of urine. He does report some diarrhea and constipation issues that are coming and going. Related Data Home Medications ?Medication ?Instructions ?Recorded ?Confirmed clonazepam 0.5 mg tablet 0.5 mg PO DAILY 12/02/22 09/07/24 mirtazapine 7.5 mg tablet 7.5 mg PO QPM 12/02/22 09/07/24 pravastatin 40 mg tablet 40 mg PO DAILY 12/02/22 09/07/24 amlodipine 5 mg tablet 5 mg PO DAILY 03/11/23 09/07/24 aspirin 81 mg tablet,delayed 81 mg PO DAILY 09/06/23 04/06/24 release (Adult Aspirin Regimen) Previous Rx's ?Medication ?Instructions ?Recorded pantoprazole 20 mg tablet,delayed 20 mg PO DAILY #20 tabs 10/01/23 release (Protonix) ciprofloxacin HCl 500 mg tablet 500 mg PO BID #10 tabs 09/22/24 metronidazole 500 mg tablet 500 mg PO BID 7 days #14 tabs 09/22/24 Allergies Allergy/AdvReac Type Severity Reaction Status Date / Time No Known Drug Allergies Allergy Verified 09/22/24 19:06 Review of Systems Status of ROS: Reports: 10 or more systems reviewed and unremarkable except as noted in History and below Narrative: Constitutional: No fevers, no weight gain or loss. Eyes: No discharge. No vision changes. HENT: No congestion, no sore throat, no ear pain. Cardiovascular: No chest pain, no palpitations. Respiratory: No shortness of breath, no wheezes, no cough. Gastrointestinal: No abdominal pain, no vomiting, no diarrhea. Genitourinary: Urinary retention. Musculoskeletal: Normal range of motion. Skin: No rashes, no pruritis. Neurological: No dizziness, weakness, sensory change, speech change. Endo/Heme/Allergies: No bruising or bleeding. No polydipsia. Pysch: no suicidality, no anxiety, no insomnia. All other systems reviewed and are negative. [facility] Social History Smoking Status: Never smoker Do you use any of these nicotine containing products: None How often do you have a drink containing alcohol: never How often do you have six or more drinks on one occasion: Never AUDIT-C Alcohol total score: 0 Non-prescribed substance use: denies use service: No Exam Narrative: Exam Narrative: Constitutional: Well-developed, well-nourished, no acute distress. HEENT: Normocephalic, atraumatic. Neck: Normal range of motion. Nontender. Supple. Heart: Regular. No murmurs. Normal rate. Intact distal pulses. Lungs: Clear to auscultation. No chest discomfort. No wheezes, rhonchi, or rales. Abdomen: Normal bowel sounds. Lower abdomen is distended mildly. No rebound tenderness. Genitalia: Deferred. Back: No midline tenderness. Normal range of motion. Extremities: Normal range of motion. No injury. Skin: Intact. No rash. Warm. No erythema or pallor. Neurologic: No altered sensation. No weakness. Alert and oriented. Psychiatric: No suicidality. No anxiety or depression. No insomnia. Nursing notes and vitals signs are reviewed. Const: Vital Signs, click to edit/add: Vital Signs - 24 hr 09/30/24 18:00 Temperature 98.4 F Pulse Rate [Pulse Oximeter] 101 H Respiratory Rate 18 Blood Pressure [Ri ght Upper Arm] 133/97 H Pulse Oximetry 95 Oxygen Delivery Me thod Room Air Course Vital Signs Vital signs: Initial Vital Signs Temperature 98.4 F 09/30/24 18:00 Temperature Source Temporal Artery Scan 09/30/24 18:00 Pulse Rate 101 H 09/30/24 18:00 Respiratory Rate 18 09/30/24 18:00 Blood Pressure 133/97 H 09/30/24 18:00 Blood Pressure Mean 109 H 09/30/24 18:00 Pulse Oximetry 95 09/30/24 18:00 Oxygen Delivery Method Room Air 09/30/24 18:00 Vital Signs Temperature 98.4 F 09/30/24 18:00 Pulse Rate 101 H 09/30/24 18:00 Respiratory Rate 18 09/30/24 18:00 Blood Pressure 133/97 H 09/30/24 18:00 Pulse Oximetry 95 09/30/24 18:00 Oxygen Delivery Method Room Air 09/30/24 18:00 Temperature 98.4 F 09/30/24 18:00 Pulse Rate 101 H 09/30/24 18:00 Respiratory Rate 18 09/30/24 18:00 Blood Pressure 133/97 H 09/30/24 18:00 Pulse Oximetry 95 09/30/24 18:00 Oxygen Delivery Method Room Air 09/30/24 18:00 MDM - Male Genitourinary MDM Narrative Medical decision making narrative: This patient comes in with urinary retention. A Andre catheter was placed and you will it about 600 mL of urine. Urinalysis shows no sign of infection. The patient was sent home with a leg bag and instructed to follow-up with clinic or return here to remove the catheter in 2 or 3 days. He does have a follow-up appointment with a urologist. Lab Data Labs: Lab Results 09/30/24 Range/Units 18:19 Urine Color Yellow (Yellow) Urine Appearance Clear (Clear) Urine pH 5.5 (5.0-8.5) Ur Specific [place] 1.010 (1.000-1.030) Urine Protein Negative (Negative) Urine Glucose (UA) Negative (Negative) Urine Ketones Negative (Negative) Urine Blood Negative (Negative) Urine Nitrite Negative (Negative) Urine Bilirubin Negative (Negative) Urine Urobilinogen 0.2 (0.2-1.0) Ur Leukocyte Esterase Negative (Negative) Urine RBC 0-2 (0-2) Urine WBC 0-2 (0-5) Ur Squamous Epith Cells None (None-Few) Urine Bacteria None (None) Discharge Plan Discharge Clinical Impression: Acute urinary retention Patient Disposition: Home, Self-Care Condition: Improved Additional Instructions: Use xbdi-[id number]-[id number] medicines as needed and directed. Return to clinic or emergency room in 2-3 days for catheter removal. Follow up with MD for ongoing management. Prescriptions: No Action pravastatin 40 mg tablet 40 mg PO DAILY clonazepam 0.5 mg tablet 0.5 mg PO DAILY mirtazapine 7.5 mg tablet 7.5 mg PO QPM aspirin [Adult Aspirin Regimen] 81 mg tablet,delayed release (DR/EC) 81 mg PO DAILY pantoprazole [Protonix] 20 mg tablet,delayed release (DR/EC) 20 mg PO DAILY Qty: 20 2RF ciprofloxacin HCl 500 mg tablet 500 mg PO BID Qty: 10 0RF metronidazole 500 mg tablet 500 mg PO BID 7 Days Qty: 14 0RF amlodipine 5 mg tablet 5 mg PO DAILY Patient Comments: TAKE 1 TABLET (5 MG) BY MOUTH ONCE DAILY. Follow Up/Referrals: Natalie Juárez DO [Primary Care Provider] - Stand Alone Forms: [employer] Info Instructions
[2024-09-30 18:43] LABS: Appearance Urine Clear (Clear); Bilirubin Urine Negative (Negative); Blood Urine Negative (Negative); Color Urine Yellow (Yellow); Glucose Urine Negative (Negative); Ketones Urine Negative (Negative); Leukocyte Esterase Urine Negative (Negative); Nitrite Urine Negative (Negative); Protein Urine Negative (Negative); Urobilinogen Urine 0.2 (0.2-1.0); pH Urine 5.5 (5.0-8.5)
--- OUTSIDE RECORDS SUMMARY | 2024-09-30 18:54 | XMS_ITS | CCD ---
Author Name Interface, [place] [address] Organization [facility] [place] [address] Allergies and Adverse Reactions Reason for Visit Medications Problems Social History
--- OUTSIDE RECORDS SUMMARY | 2024-09-30 18:54 | XMS_ITS | Clinical Summary ---
Author Organization [employer] Address [place], [place] [address] Care Team Providers Care Director Patient Financial Services Name Role Phone Natalie Juárez DO Primary Care Provider Kate Pugh DO Unavailable [phone] Billy Sanon MD Unavailable Allergies No known [...] Type Department Care Team Description 09/28/2024 Telephone [facility] 100 [facility] [address] Billy Sanon MD Questions 09/24/2024 8:45 AM SPANISH INTERPRETER Office Visit [facility] [address] [place] [address] Abhijit Burns MD Follow Up (ER 09/22 [facility] and clinics/Catheter removal /diarrhea is still continuing ) 09/24/2024 Travel 09/23/2024 Telephone [facility] [address] [place] [address] Natalie Juárez, DO Appointment Request (FOR CATHETER REMOVAL) 09/22/2024 Refill [facility] [address] [place] [address] Natalie Juárez, DO Refill Request (Amlodipine) 09/07/2024 Refill [facility] [address] [facility] [address] [place] [phone] Kate Pugh, Refill Request (clonazePAM (KLONOPIN) 0.5 mg tablet/) 08/10/2024 1:40 PM SPANISH INTERPRETER Office Visit [facility] [address] [place] [phone] Billy Sanon MD Consult (BPH without urinary obstruction /- H/O urethral stricture /Shaqra, Natalie Aliya, DO /) 08/10/2024 Travel 07/20/2024 Refill [facility] [address] [facility] [place] [address] Shaqra, Natalie Aliya, DO Refill Request (Pravastatin) [...] on file Legal Sex Male 6:11 AM SPANISH INTERPRETER Gender Identity Not on file Sexual Orientation Not on file Occupation Industry Job Start Date Job End Date unemployed Not on file Not on file Not on file Not on file Not on file Not on file Not on file Obstetrics History Last Filed Vital Signs Vital Sign Reading Time Taken Comments Blood Pressure 130/86 09/24/2024 8:43 AM SPANISH INTERPRETER Pulse 78 09/24/2024 8:43 AM SPANISH INTERPRETER Temperature 36.7 C (98.1 F) 01/14/2023 9:46 AM CDT Respiratory Rate 18 01/14/2023 9:46 AM CDT Oxygen Saturation 96% 09/24/2024 8:43 AM SPANISH INTERPRETER Inhaled Oxygen Concentration - - Weight 71 kg (156 lb 9.6 oz) 09/24/2024 8:43 AM SPANISH INTERPRETER Height 170.7 cm (5' 7.21) 02/04/2024 9:08 AM CD T Body Mass Index 24.38 02/04/2024 9:08 AM CDT Plan of Treatment Upcoming Encounters Date Type Department Care Team (Late st Contact Info) Description 11/09/2024 12:40 PM CDT Procedure Only [facility] 100 [facility] [place] [phone] Billy Sanon MD [address] [place] [address] 12/02/2024 1:00 PM CDT Phone Office Visit [facility] [address] [place] [phone] Kate Pugh DO [address] [place], [place] [phone] Health Maintenance Due Date Last Done Comments [...] 02/03/2029 02/04/2024, 06/22/2022, 01/20/2020 (Completed outside of [facility]), Additional history exists Tetanus booster 07/11/2029 07/11/2019, 04/16/2006 Colonoscopy through age 75 03/03/203003/03 (Completed outside of [facility]) Tdap Completed 07/11/2019, 04/16/2006 Hepatitis C screening for ag e 18-79 Completed 01/02/2022 Zoster (shingles) series for age 50+ Completed 08/21/2022, 03/26/2022 AAA screening age 65-74 Completed 09/24/2022 COVID-19 vaccine series Completed 06/29/20 24, 06/12/2023, 07/11/2022, Additional history exists Influenza for age 65+ Completed 06/29/2024 , 06/12/2023, 06/14/2008 Procedures Procedure Name Priority Date/Time Associated Diagnosis Comments PA LESLIE POST-VOIDING RESIDUAL URINE&/BLADDER CAP Routine 08/10/2024 12:00 AM SPANISH INTERPRETER H/O urethral stricture Recurrent UTI LIPID PANEL W REFLEX MEASURED LDL Routine 02/04/2024 9:53 AM CDT Hyperlipidemia, unspecified hyperlipidemia type US ABD AORTA SCREENING Routine 09/24/2022 9:16 AM SPANISH INTERPRETER Screening for AAA (aortic abdominal aneurysm) ANTI HCV Routine 01/02/2022 10:46 AM CDT Encounter for hepatitis C screening test for low risk patient from Last 3 Months or Most Recently Relevant to Health Maintenance Results * PA LESLIE POST-VOIDING RESIDUAL URINE&/BLADDER CAP (08/10/2024 12:00 AM SPANISH INTERPRETER) Billy Sanon MD PB - URINARY SYSTEM SE RVICES Final Result * LIPID PANEL W REFLEX MEASURED LDL (02/04/2024 9:53 AM CDT) CHOLESTEROL,TOTAL 198 100 - 199 mg/dL 02/04/2024 6:48 PM CDT [facility] Comment: Cholesterol, Total Reference Ranges Desirable <200 mg/dL Borderline 200-239 mg/dL High >=240 mg/dL TRIGLYCERIDES 119 <150 mg/dL 02/04/2024 6:48 PM CDT [facility] HDL CHOLESTEROL 67 >40 mg/dL 6:48 PM CDT [facility] NON-HDL CHOLESTEROL 131 <145 mg/dl 02/04/2024 6:48 PM CDT [facility] CHOL/HDL RATIO 2.96 <4.50 02/04/2024 6:48 PM CDT [facility] LDL CHOLESTEROL 107 <=130 mg/dL 02/04/2024 6:48 PM CDT [facility] VLDL CHOLESTEROL 24 <=30 mg/dL 02/04/2024 6:48 PM CDT [facility] PROVIDER ORDERED STATUS RANDOM 02/04/2024 6:48 PM CDT [facility] Blood BLOOD SPECIMEN / Unknown Venipuncture / Unknown 02/04/2024 9:53 AM CDT 02/04/2024 9:53 AM CDT us Natalie Juárez DO CHEMISTRY Final Result [facility] [address] [place] [address], [place] * US ABD AORTA SCREENING [[id number]] (09/24/2022 9:16 AM SPANISH INTERPRETER) Anatomical Region Laterality Modality Abdomen, AORTA Ultrasound 09/24/2022 10:4 1 AM SPANISH INTERPRETER Impressions 09/24/2022 10:41 AM SPANISH INTERPRETER Normal sonographic assessment of the abdominal aorta. Dictated by Colin Dumas MD @ Sep 24 2022 10:41AM (Electronically Signed) Narrative 09/24/2022 10:41 AM SPANISH INTERPRETER For Patients: As a result of the [...] @ Sep 24 2022 10:41AM (Electronically Signed) [employer] Marquita GIRON [place] Final Result * ANTI HCV (01/02/2022 10:46 AM CDT) HEPATITIS C ANTIBODY Non-React asia Non-React asia 01/02/2022 6:27 PM CDT [facility] Comment:Antibodies to HCV no t detected; does not exclude the possibility of exposure to HCV. Blood BLOOD SPECIMEN / Unknown Venipuncture / Unknown 01/02/2022 10:46 AM CDT 01/02/2022 10:47 AM CDT [employer] Aliya Vaughnqra DO SEND OUTS Final Result [facility] [address] [place] [address], [place] from Last 3 Months or Most Recently Relevant to Health Maintenance Insurance MEDICARE PB ONLY [facility] ATTN: [place] [address] MEDICARE PART B HB ONLY MEDICARE PART A HB ONLY Care Teams Director Patient Financial Services Relationship Specialty Start Date End Date Natalie Juárez, DO [address] [place] [address] PCP - General Family Practice 03/01/21 Kate Pugh DO [address] [place] [address] Psychiatry 02/04/23 Billy Sanon MD 100 [facility] [place] [address] Surgery - Urology 08/10/24
--- OUTSIDE RECORDS SUMMARY | 2024-09-30 18:55 | XMS_ITS | CCD ---
Author Name Interface, [id number] Address [facility], [place], [place] [address] Organization [facility] Address [facility], [place], [place] [address] Allergies and Adverse Reactions Medication/Group Name Reaction [...]
[2024-09-30 19:01] LABS: RBC Urine 0-2 (0-2); WBC Urine 0-2 (0-5)
[2024-09-30 19:58] VITALS: PULSE 72; RESP 16; O2SAT 96
== END 2024-09-30 20:00 | disposition home or self-care (01) ==
PROVIDERS: Emergency Provider Emergency Medicine Emergency Medical Services; PCP Family Medicine
DX: R33.9 Retention of urine, unspecified (principal)
CPT/HCPCS: 51702; 51798; 81001; 99283; 99284

== ENCOUNTER 2024-10-02 08:40 | Emergency (ER) | payer MEDICARE, SELFPAY ==
--- OUTSIDE RECORDS SUMMARY | 2024-10-02 08:43 | XMS_ITS | Clinical Summary ---
Author Organization [employer] [facility] [employer] Address [place], [place] [address] Care Team Providers Care Motor Equipment Commanding Officer Name Role Phone Natalie Juárez DO Primary Care Provider [phone] Kate Pugh DO Unavailable [phone] Billy Sanon MD Unavailable Allergies No known [...] Type Department Care Team Description 09/28/2024 Telephone [facility] 100 [facility] [place] [address] Billy Sanon MD Questions 09/24/2024 8:45 AM PRODUCTION ENGINE REPAIRER Office Visit [facility] [address] [place] [address] Abhijit Burns MD Follow Up (ER 09/22 [facility] and clinics/Catheter removal /diarrhea is still continuing ) 09/24/2024 Travel 09/23/2024 Telephone [facility] [address] [place] [address] Natalie Juárez, DO Appointment Request (FOR CATHETER REMOVAL) 09/22/2024 Refill [facility] [address] [place] [address] Natalie Juárez, DO Refill Request (Amlodipine) 09/07/2024 Refill [facility]Note 2] 280 [facility] [address] [place] [phone] Kate Pugh, Refill Request (clonazePAM (KLONOPIN) 0.5 mg tablet/) 08/10/2024 1:40 PM PRODUCTION ENGINE REPAIRER Office Visit [facility] [address] [place] [phone] Billy Sanon MD Consult (BPH without urinary obstruction /- H/O urethral stricture /Shaqra, Natalie Aliya, DO /) 08/10/2024 Travel 07/20/2024 Refill [facility] [address] [facility] [address] Shaqra, Natalie Aliya, DO Refill Request (Pravastatin) [...] on file Legal Sex Male 6:11 AM PRODUCTION ENGINE REPAIRER Gender Identity Not on file Sexual Orientation Not on file Occupation Industry Job Start Date Job End Date unemployed Not on file Not on file Not on file Not on file Not on file Not on file Not on file Obstetrics History Last Filed Vital Signs Vital Sign Reading Time Taken Comments Blood Pressure 130/86 09/24/2024 8:43 AM PRODUCTION ENGINE REPAIRER Pulse 78 09/24/2024 8:43 AM PRODUCTION ENGINE REPAIRER Temperature 36.7 C (98.1 F) 01/14/2023 9:46 AM CDT Respiratory Rate 18 01/14/2023 9:46 AM CDT Oxygen Saturation 96% 09/24/2024 8:43 AM PRODUCTION ENGINE REPAIRER Inhaled Oxygen Concentration - - Weight 71 kg (156 lb 9.6 oz) 09/24/2024 8:43 AM PRODUCTION ENGINE REPAIRER Height 170.7 cm (5' 7.21) 02/04/2024 9:08 AM CD T Body Mass Index 24.38 02/04/2024 9:08 AM CDT Plan of Treatment Upcoming Encounters Date Type Department Care Team (Late st Contact Info) Description 11/09/2024 12:40 PM CDT Procedure Only [facility] 100 [facility] [place] [phone] Billy Sanon MD [address] [place] [address] 12/02/2024 1:00 PM CDT Phone Office Visit [facility]Note 2] [address] [place] [phone] Kate Pugh DO [address] [place], [place] [phone] Health Maintenance Due Date Last Done Comments [...] 02/03/2029 02/04/2024, 06/22/2022, 01/20/2020 (Completed outside of [facility]), Additional history exists Tetanus booster 07/11/2029 07/11/2019, 04/16/2006 Colonoscopy through age 75 03/03/203003/03 (Completed outside of [facility]) Tdap Completed 07/11/2019, 04/16/2006 Hepatitis C screening for ag e 18-79 Completed 01/02/2022 Zoster (shingles) series for age 50+ Completed 08/21/2022, 03/26/2022 AAA screening age 65-74 Completed 09/24/2022 COVID-19 vaccine series Completed 06/29/20 24, 06/12/2023, 07/11/2022, Additional history exists Influenza for age 65+ Completed 06/29/2024 , 06/12/2023, 06/14/2008 Procedures Procedure Name Priority Date/Time Associated Diagnosis Comments [place] LESLIE POST-VOIDING RESIDUAL URINE&/BLADDER CAP Routine 08/10/2024 12:00 AM PRODUCTION ENGINE REPAIRER H/O urethral stricture Recurrent UTI LIPID PANEL W REFLEX MEASURED LDL Routine 02/04/2024 9:53 AM CDT Hyperlipidemia, unspecified hyperlipidemia type US ABD AORTA SCREENING Routine 09/24/2022 9:16 AM PRODUCTION ENGINE REPAIRER Screening for AAA (aortic abdominal aneurysm) ANTI HCV Routine 01/02/2022 10:46 AM CDT Encounter for hepatitis C screening test for low risk patient from Last 3 Months or Most Recently Relevant to Health Maintenance Results * [place] LESLIE POST-VOIDING RESIDUAL URINE&/BLADDER CAP (08/10/2024 12:00 AM PRODUCTION ENGINE REPAIRER) Billy Sanon MD PB - URINARY SYSTEM SE RVICES Final Result * LIPID PANEL W REFLEX MEASURED LDL (02/04/2024 9:53 AM CDT) CHOLESTEROL,TOTAL 198 100 - 199 mg/dL 02/04/2024 6:48 PM CDT [facility] Comment: Cholesterol, Total Reference Ranges Desirable <200 mg/dL Borderline 200-239 mg/dL High >=240 mg/dL TRIGLYCERIDES 119 <150 mg/dL 02/04/2024 6:48 PM CDT [facility] HDL CHOLESTEROL 67 >40 mg/dL 6:48 PM CDT [facility] NON-HDL CHOLESTEROL 131 <145 mg/dl 02/04/2024 6:48 PM CDT [facility] CHOL/HDL RATIO 2.96 <4.50 02/04/2024 6:48 PM CDT [facility] LDL CHOLESTEROL 107 <=130 mg/dL 02/04/2024 6:48 PM CDT [facility] VLDL CHOLESTEROL 24 <=30 mg/dL 02/04/2024 6:48 PM CDT [facility] PROVIDER ORDERED STATUS RANDOM 02/04/2024 6:48 PM CDT [facility] Blood BLOOD SPECIMEN / Unknown Venipuncture / Unknown 02/04/2024 9:53 AM CDT 02/04/2024 9:53 AM CDT us Natalie Juárez DO CHEMISTRY Final Result [facility] [address] [place] [address], [place] * US ABD AORTA SCREENING [[id number]] (09/24/2022 9:16 AM PRODUCTION ENGINE REPAIRER) Anatomical Region Laterality Modality Abdomen, AORTA Ultrasound 09/24/2022 10:4 1 AM PRODUCTION ENGINE REPAIRER Impressions 09/24/2022 10:41 AM PRODUCTION ENGINE REPAIRER Normal sonographic assessment of the abdominal aorta. Dictated by Colin Dumas MD @ Sep 24 2022 10:41AM (Electronically Signed) Narrative 09/24/2022 10:41 AM PRODUCTION ENGINE REPAIRER For Patients: As a result of the [...] @ Sep 24 2022 10:41AM (Electronically Signed) [employer] Marquita GIRON [place] Final Result * ANTI HCV (01/02/2022 10:46 AM CDT) HEPATITIS C ANTIBODY Non-React asia Non-React asia 01/02/2022 6:27 PM CDT [facility] Comment:Antibodies to HCV no t detected; does not exclude the possibility of exposure to HCV. Blood BLOOD SPECIMEN / Unknown Venipuncture / Unknown 01/02/2022 10:46 AM CDT 01/02/2022 10:47 AM CDT [employer] Aliya Vaughnqra DO SEND OUTS Final Result [facility] [address] [place] [address], [place] from Last 3 Months or Most Recently Relevant to Health Maintenance Insurance MEDICARE PB ONLY [facility] ATTN: [place] [address] MEDICARE PART B HB ONLY MEDICARE PART A HB ONLY Care Teams Motor Equipment Commanding Officer Relationship Specialty Start Date End Date Natalie Juárez, DO [address] [place] [address] PCP - General Family Practice 03/01/21 Kate Pugh DO [address] [place] [address] Psychiatry 02/04/23 Billy Sanon MD 100 [facility] [place] [address] Surgery - Urology 08/10/24
--- OUTSIDE RECORDS SUMMARY | 2024-10-02 08:43 | XMS_ITS | Data Portability ---
Author Organization [facility], [facility] Address [address] [place] [address] Care Team Providers Care Wedding Designer Name Role Phone MARINE HAAS Primary Care [...] recorded. Lab urinalysis , dipstick 2022 023 [email or web address] [facility], [address], [place], [address], 12:14:01 urinalysis , dipstick 2022 023 [email or web address] [facility], [address], [place], [address], 15:08:08 Referral None recorded. Procedures None recorded. Surgeries None recorded. Imaging None recorded. Medication Orders None recorded. Patient TargetsNo targets recorded. Patient InstructionsNo instructions recorded. Reason for Referral None Reported. Results Created Date Observation Date Name Description Value Unit Range Abnormal Flag Note LastModifiedBy Organization Detail LastModifiedTime 09/27/1909/27/2022 urina lysis , dipst ick Sp [place]-Stat us 1.005 Not Available [facility] [address], [place], [address], 09/27/2022 12:12:58 09/27/19 23 09/27/2022 urina lysis , dipst ick pH-Status 6.0 Not Available [facility] [address], [place], [address], 09/27/2022 12:12:58 09/27/1909/27/2022 urina lysis , dipst ick Nitrates-Sta tus negati ve Not Available [facility] [address], [place], [address], 09/27/2022 12:12:58 09/27/1909/27/2022 urina lysis , dipst ick Blood-Status Trace Not Available [facility] [address], [place], [address], 09/27/2022 12:12:58 09/27/1909/27/2022 urina lysis , dipst ick Leuko-Status Negati ve Not Available [facility] [address], [place], [address], 09/27/2022 12:12:58 02/28/20 23 02/27/2023 urina lysis , dipst ick Color-Status Yellow Not Available [facility] [address], [place], [address], 02/27/2023 15:07:16 02/28/20 23 02/27/2023 urina lysis , dipst ick Clarity-Stat us Clear Not Available [facility] [address], [place], [address], 02/27/2023 15:07:16 02/28/20 23 02/27/2023 urina lysis , dipst ick Glucose-Stat us Negati ve Not Available [facility] [address], [place], [address], 02/27/2023 15:07:16 02/28/20 23 02/27/2023 urina lysis , dipst ick Nitrates-Sta tus negati ve Not Available [facility] [address], [place], [address], 02/27/2023 15:07:16 02/28/20 23 02/27/2023 urina lysis , dipst ick Blood-Status Negati ve Not Available [facility] [address], [place], [address], 02/27/2023 15:07:16 02/28/20 23 02/27/2023 urina lysis , dipst ick Leuko-Status Negati ve Not Available [facility] [address], [place], [address], 02/27/2023 15:07:16 10/02/19 23 09/27/2022 bladd er scan (PROC ) No observ ation record ed. Not Available 2022 22:09:27 03/01/20 23 02/27/2023 bladd er scan (PROC ) No observ ation record ed. BARCODE Not Available 2022 15:39:28 Result Notes None recorded. Procedures Surgical History Date Name Laterality Status Provider Name and Address Organization Details Recorded Time 5 Bladder Scan cancelled Kayla Denson [facility] 09/11/2024 15:45:28 3 Bladder Scan completed Pilar Smith [facility] 08/22/2023 10:45:31 3 UroCuff completed Erma Alves [facility] 08/08/2023 16:46:48 3 Bladder Scan completed Erma Alves [facility] 08/08/2023 16:22:41 3 Bladder Scan completed Romie Santos [facility] 02/27/2023 15:07:12 3 Bladder Scan completed Venkatesh Ontiveros MD [address] [place] [address], [id number] [place] [address] Urology 09/27/2022 12:46:00 0 colonoscopy completed Pilar Smith [facility] 08/22/2023 10:42:53 Imaging Results Imaging Date Name [...] Updated DateTime 09/27/2022 168.91 cm Miriam Rae [facility] 09/27/2022 12:17:56 Date Recorded Body mass index (BMI) Body weight Provider Name and Address Organization Details Last Updated DateTime 09/27/2022 24.6 kg/m2 18795.82 g Miriam Rae [facility] 09/27/2022 12:18:06 Date Recorded Body height Provider Name an d Address Organization Details Last Updated DateTime 02/27/2023 168.91 cm Romie Santos [facility] 02/27/2023 15:03:38 Date Recorded Body mass index (BMI) Body weight Provider Name and Address Organization Details Last Updated DateTime 02/27/2023 24.6 kg/m2 71837.82 g Romie Santos [facility] 02/27/2023 15:03:45 Date Recorded Body height Provider Name an d Address Organization Details Last Updated DateTime 08/22/2023 168.91 cm Pilar Smith [facility] 08/22/2023 10:42:01 Date Recorded Body mass index (BMI) Body weight Provider Name and Address Organization Details Last Updated DateTime 08/22/2023 26.2 kg/m2 14462.74 g Pilar Smith [facility] 08/22/2023 10:42:08 Social History Question Answer Notes LastModified by Organizat ion Details LastModified Time Tobacco Smoking Status Former Smoker Miriam marcelo [facility] 09/27/2022 12:24:21 What Is Your Level Of Alcohol Consumption? None Information not available 02/27/2023 What Is Your Level Of Caffeine Consumption? Moderate Information not available 02/27/2023 Are You Currently Employed? No Information not available 02/27/2023 When Did You Quit Smoking? 1-5yearssince lastcigarette [email or web address] Information not available 08/22/2023 Recreational Drug Use No Information not available 02/27/2023 What Was The Date Of Your Most Recent Tobacco Screening? 08/22/2023 [email or web address] Information not available 08/22/2023 What Is Your [...] 50 mcg/0.5 mL 3 completed Pilar marcelo [facility] 08/22/2023 10:42:13 Influenza, split virus, quadrivalent, PF 3 completed Pilar marcelo [facility] 08/22/2023 10:42:13 zoster recombinant 2 completed [facility] 07/03/2023 17:11:29 zoster recombinant 2 completed Jenny [facility]celo [facility] 07/03/2023 17:11:29 COVID-19, mRNA, LNP-S, PF, 100 mcg/0.5mL dose or 50 mcg/0.25mL dose 1 completed Jenny marcelo [facility] 07/03/2023 17:11:29 COVID-19, mRNA, LNP-S, PF, 100 mcg/0.5mL dose or 50 mcg/0.25mL dose 1 completed Jenny marcelo [facility] 07/03/2023 17:11:29 COVID-19, mRNA, LNP-S, PF, 100 mcg/0.5mL dose or 50 mcg/0.25mL dose 2 completed Jenny marcelo [facility] 07/03/2023 17:11:29 COVID-19, mRNA, LNP-S, PF, 100 mcg/0.5mL dose or 50 mcg/0.25mL dose 1 completed Jenny marcelo [facility] 07/03/2023 17:11:29 COVID-19, mRNA, LNP-S, bivalent, PF, 50 mcg/0.5 mL or 25mcg/0.25 mL dose 2 completed Jenny marcelo [facility] 07/03/2023 17:11:29 Tdap 9 completed Jenny marcelo [facility] 07/03/2023 17:11:29 Influenza, split virus, trivalent, preservative 8 completed Jenny marcelo [facility] 07/03/2023 17:11:29 Past Encounters Encounter ID Performer Location Encounter Start Date Encounter Closed Date Diagnosis/Indication Diagnosis SNOMED-CT Code Diagnosis ICD10 Code Diagnosis Note [id number] MD Margarette Mcneill [address] [place] [address] 09/27/2022 11:56:38 10/01/2022 14:14:58 Urethral stricture 02581467 N35.919 - Will set up for Q6 month UroCuff- PVR today 134 mL- If evidence of recurrence then would recommend Optilume dilation Recurrent urinary tract infection 946696612 N39.0 - Start TheraCran given recurrent E coli UTIs [id number] MD Margarette Mcneill [address] [place] [address] 02/27/2023 14:11:30 03/07/2023 08:28:19 Urethral stricture 63718830 N35.919 - Will set up for UroCuff- PVR today 21 mL- If evidence of recurrence then would recommend Optilume dilation Recurrent urinary tract infection N39.0 - Start TheraCran given recurrent E coli UTIs- Could also add d-Mannose supplement [id number] Erma Alves [facility] [address] [place] [address] 08/08/2023 10:50:58 08/16/2023 11:25:54 Urethral stricture 29619423 N35.919 [id number] Venkatesh Ontiveros MD [facility] [address] [place] [address] 08/22/2023 10:36:02 09/04/2023 10:08:51 Urethral stricture 26239190 N35.919 - UroCuff reviewed- IPSS: 5 (2)- [...] ID Guarantor Name 09/27/2022 1 [place] [employer] SERVICES [facility] Jerry Ballesteros [id number] 6 Jerry Greenz 02/27/2023 1 [place] [employer] [facility] Jerry Ballesteros [id number] 6 Jerry Greenz 08/08/2023 1 [place] [employer] [facility] Jerry Ballesteros [id number] 6 Jerry Greenz 08/22/2023 1 [place] [employer] SERVICES [facility] Jerry Ballesteros [id number] 6 Jerry Ballesteros Notes Date Note Type Note Provider Name and Address Organization Details Recorded Time 09/27/2022 text/html Mr. Ballesteros is a very pleasant 67-year-old male with a history of imperforate anus, solitary kidney, and history of urethral stricture disease requiring multiple dilations. Patient states that his last dilation was about [address] Prabhakar. Was seeing a [employer] while living in [place] but it has been quite some time since he has seen a Urologist. No established nephrology care here in [place]. Current urination consists of: urinary frequency with [...] any more than usual. Venkatesh Ontiveros MD [address] [place] [address],[address], [address] 09/27/2022 12:46:39 02/27/2023 text/html Mr. Ballesteros is a very pleasant 67-year-old male with a history of imperforate anus, solitary kidney, and history of urethral stricture disease requiring multiple dilations. Patient states that his last dilation was about [address] Prabhakar. Was seeing a [employer] while living in [place] but it has been quite some time since he has seen a Urologist. No established nephrology care here in [place]. Current urination consists of: urinary frequency with [...] started cranberry supplement. Venkatesh Ontiveros MD [address] [facility] [address], [place], [address], [facility] 02/27/2023 22:10:59 08/22/2023 text/html Mr. Ballesteros is a very pleasant 67-year-old male with a history of imperforate anus, solitary kidney, and history of urethral stricture disease requiring multiple dilations. Patient states that his last dilation was about [address] Prabhakar. Was seeing a [employer] while living in [place] but it has been quite some time since he has seen a Urologist. No established nephrology care here in [place]. Current urination consists of: urinary frequency with [...] no recent UTIs. Venkatesh Ontiveros MD [address] [facility] [address], [place], [address], [facility] [place] [facility] 08/22/2023 13:34:58
--- OUTSIDE RECORDS SUMMARY | 2024-10-02 08:44 | XMS_ITS | Data Portability ---
Author Organization [place] - [employer], [email or web address], [employer] [facility] - [facility] 12/30/[address] [place] [address] Care Team Providers Care Silk Presser Name Role Phone SAMEERA RIDLEY Primary Care Provider [phone] Assessment Encounter Date Assessment Date Assessment LastModified by Organization Details LastModified Time 02/04/2020 02/04/2020 Time spent on this telephone encounter exceeds 11 minutes. [email or web address] Not available 02/04/2020 13:19:46 Plan of Treatment Reminders Order Date Submit Date Provider Last Modified By Organization Details Last Modified Time Details Appointments None recorded. Lab CMP, serum or plasma 2016 017 [facility], [address] [place], [place] [address]za, [address], [address], [place], [address], 8 19:46:50 magnesium, blood 2016 017 [facility], [address] [place], [place] [address]za, [address], [address], [place], [address], 8 19:46:50 phosphorus , blood 2016 017 [facility], [address] [place], [place] [address]za, [address], [address], [place], [address], 8 19:46:50 protein:cr eatinine ratio, urine 2016 017 [facility], [address], [address], [address], [place], [address], 8 19:46:50 CBC w/ auto diff 2016 017 [facility], [address], [address], [address], [place], [address], 8 19:46:50 urinalysis , dipstick, reflex micro 2016 017 [facility], [address], [address], [address], [place], [address], 8 19:46:50 uric acid, serum or plasma 2016 017 [facility], [address], [address], [address], [place], [address], 8 19:46:51 CMP, serum or plasma 2017 018 [facility], [address], [address], [address], [place], [address], 9 17:00:34 magnesium, blood 2017 018 [facility], [address], [address], [address], [place], [address], 8 20:07:04 phosphorus , blood 2017 018 [facility], [address], [address], [address], [place], [address], 8 20:07:04 protein:cr eatinine ratio, urine 2017 018 [facility], [address], [address], [address], [place], [address], 8 20:07:04 CBC w/ auto diff 2017 018 [facility], [address], [address], [place], [address], 9 16:56:21 uric acid, serum or plasma 2017 018 [facility], [address], [address], [place], [address], 8 20:07:04 urinalysis complete, reflex culture 2017 018 [facility], [address], [address], [place], [address], 9 16:56:21 urinalysis , dipstick, reflex micro 2017 018 [facility], [address], [address], [place], [address], 8 20:07:04 magnesium, blood 2018 019 [facility], [address], [address], [place], [address], 9 14:09:34 phosphorus , blood 2018 019 [facility], [address], [address], [place], [address], 9 14:09:34 protein:cr eatinine ratio, urine 2018 019 [facility], [address], [address], [place], [address], 9 18:56:10 uric acid, serum or plasma 2018 019 [facility], [address], [address], [address], [place], [address], 9 14:09:34 BMP, serum or plasma 2018 019 [facility], [address], [address], [place], [address], 9 14:09:34 PTH (parathyro id hormone), intact, serum or plasma 2018 020 [facility], [address], [address], [address], [place], [address], 0 19:51:03 vitamin D, 25-hydroxy , total, serum 2018 020 [facility], [address], [address], [place], [address], 0 19:51:03 CBC w/ auto diff 2018 020 [facility], [address], [address], [place], [address], 0 19:51:03 magnesium, serum or plasma 2018 020 [facility], [address], [address], [place], [address], 0 19:51:03 protein:cr eatinine ratio, urine 2018 020 [facility], [address], [address], [place], [address], 0 19:51:03 uric acid, serum or plasma 2018 020 [facility], [address], [address], [address], [place], [address], 0 19:51:03 renal function panel, serum 2018 020 [facility], [address], [address], [place], [address], 0 19:51:03 PTH (parathyro id hormone), intact, serum or plasma 2019 021 [facility], [address], [address], [place], [address], 1 15:55:27 vitamin D, 25-hydroxy , total, serum 2019 021 [facility], [address], [address], [place], [address], 1 15:55:27 CBC w/ auto diff 2019 021 [facility], [address], [address], [place], [address], 1 13:57:47 magnesium, serum or plasma 2019 021 [facility], [address], [address], [place], [address], 1 15:55:27 protein:cr eatinine ratio, urine 2019 021 [facility], [address], [address], [place], [address], 1 15:55:27 uric acid, serum or plasma 2019 021 [facility], [address], [address], [address], [place], [address], 1 15:55:27 renal function panel, serum 2019 021 [facility], [address], [address], [address], [place], [address], 1 15:55:27 Referral None recorded. Procedures None recorded. Surgeries None recorded. Imaging None recorded. Medication Orders losartan 50 mg tablet 2017 [email or web address] [facility], [address] [place] [address], [place], [address], 9 12:17:21 Patient TargetsNo targets recorded. Patient InstructionsNo instructions recorded. Reason for Referral None Reported. Results Created Date Observation Date Name Description Value Unit Range Abnormal Flag Note LastModifiedBy Organization Detail LastModifiedTime 05/23/20 17 05/23/2017 lipid panel , serum color, urine straw Not Available [facility] [address], [address], [place], [address], 05/23/2017 17:03:45 05/23/20 17 05/23/2017 lipid panel , serum clarity, urine clear Not Available [facility] [address], [address], [place], [address], 05/23/2017 17:03:45 05/23/20 17 05/23/2017 lipid panel , serum pH, urine 1.006 Not Available [facility] [address], [address], [place], [address], 05/23/2017 17:03:45 05/23/20 17 05/23/2017 lipid panel , serum protein, urine negati ve Not Available [facility] [address], [address], [place], [address], 05/23/2017 17:03:45 05/23/20 17 05/23/2017 lipid panel , serum glucose, urine negati ve Not Available [facility] [address], [address], [place], [address], 05/23/2017 17:03:45 05/23/20 17 05/23/2017 lipid panel , serum ketones, urine negati ve Not Available [facility] [address], [address], [place], [address], 05/23/2017 17:03:45 05/23/20 17 05/23/2017 lipid panel , serum bilirubin, urine negati ve Not Available [facility] [address], [address], [place], [address], 05/23/2017 17:03:45 05/23/20 17 05/23/2017 lipid panel , serum blood, urine negati ve Not Available [facility] [address], [address], [place], [address], 05/23/2017 17:03:45 05/23/20 17 05/23/2017 lipid panel , serum nitrite, urine negati ve Not Available [facility] [address], [address], [place], [address], 05/23/2017 17:03:45 05/23/20 17 05/23/2017 lipid panel , serum leukocyte esterase negati ve Not Available [facility] [address], [address], [place], [address], 05/23/2017 17:03:45 05/23/20 17 05/23/2017 lipid panel , serum urobilinogen , urine <2.0 Not Available [facility] [address], [address], [place], [address], 05/23/2017 17:03:45 05/23/20 17 05/23/2017 lipid panel , serum protein, urine, random 9.8 Not Available [facility] [address], [address], [place], [address], 05/23/2017 17:03:45 05/23/20 17 05/23/2017 lipid panel , serum creatinine, urine, random 24.9 Not Available [facility] [address], [address], [place], [address], 05/23/2017 17:03:45 05/23/20 17 05/23/2017 lipid panel , serum HGB 14.7 Not Available [facility] [address], [address], [place], [address], 05/23/2017 17:03:45 05/23/20 17 05/23/2017 lipid panel , serum HCT 44.5 Not Available [facility] [address], [address], [place], [address], 05/23/2017 17:03:45 05/23/20 17 05/23/2017 lipid panel , serum WBC 4.5 Not Available [facility] [address], [address], [place], [address], 05/23/2017 17:03:45 05/23/20 17 05/23/2017 lipid panel , serum plt 212 Not Available [facility] [address], [address], [place], [address], 05/23/2017 17:03:45 05/23/20 17 05/23/2017 lipid panel , serum sodium, serum 137 Not Available [facility] [address], [address], [place], [address], 05/23/2017 17:03:45 05/23/20 17 05/23/2017 lipid panel , serum potassium, serum 3.5 Not Available [facility] [address], [address], [place], [address], 05/23/2017 17:03:45 05/23/20 17 05/23/2017 lipid panel , serum chloride, serum 99 Not Available [facility] [address], [address], [place], [address], 05/23/2017 17:03:45 05/23/20 17 05/23/2017 lipid panel , serum carbon dioxide 27 Not Available [facility] [address], [address], [place], [address], 05/23/2017 17:03:45 05/23/20 17 05/23/2017 lipid panel , serum calcium, serum 9.0 Not Available [facility] [address], [address], [place], [address], 05/23/2017 17:03:45 05/23/20 17 05/23/2017 lipid panel , serum glucose, serum 101 Not Available [facility] [address], [address], [place], [address], 05/23/2017 17:03:45 05/23/20 17 05/23/2017 lipid panel , serum BUN 24 Not Available [facility] [address], [address], [place], [address], 05/23/2017 17:03:45 05/23/20 17 05/23/2017 lipid panel , serum creatinine 1.60 Not Available [facility] [address], [address], [place], [address], 05/23/2017 17:03:45 05/23/20 17 05/23/2017 lipid panel , serum GFR 44 Not Available [facility] [address], [address], [place], [address], 05/23/2017 17:03:45 05/23/20 17 05/23/2017 lipid panel , serum bilirubin, total 0.5 Not Available [facility] [address] [facility] [address], [address], [place], [address], 05/23/2017 17:03:45 05/23/20 17 05/23/2017 lipid panel , serum alkaline phosphatase 43 Not Available [facility] [address] [facility] [address], [address], [place], [address], 05/23/2017 17:03:45 05/23/20 17 05/23/2017 lipid panel , serum albumin, serum 4.1 Not Available [facility] [address] [facility] [address], [address], [place], [address], 05/23/2017 17:03:45 05/23/20 17 05/23/2017 lipid panel , serum protein, total, serum 7.0 Not Available [facility] [address] [facility] [address], [address], [place], [address], 05/23/2017 17:03:45 05/23/20 17 05/23/2017 lipid panel , serum magnesium 1.8 Not Available [facility] [address] [facility] [address], [address], [place], [address], 05/23/2017 17:03:45 05/23/20 17 05/23/2017 lipid panel , serum phosphorus 2.8 Not Available [facility] [address], [address], [place], [address], 05/23/2017 17:03:45 05/23/20 17 05/23/2017 lipid panel , serum uric acid 6.1 Not Available [facility] [address] [facility] [address], [address], [place], [address], 05/23/2017 17:03:45 05/23/20 17 05/23/2017 lipid panel , serum PSA, total 0.762 Not Available [facility] [address] [facility] [address], [address], [place], [address], 05/23/2017 17:03:45 05/23/20 17 05/23/2017 PSA, serum or plasm a color, urine straw Not Available [facility] [address] [facility] [address], [place], [address], 05/23/2017 17:03:45 05/23/20 17 05/23/2017 PSA, serum or plasm a clarity, urine clear Not Available [facility] [address] [facility] [address], [place], [address], 05/23/2017 17:03:45 05/23/20 17 05/23/2017 PSA, serum or plasm a pH, urine 1.006 Not Available [facility] [address] [facility] [address] [address], [place], [address], 05/23/2017 17:03:45 05/23/20 17 05/23/2017 PSA, serum or plasm a protein, urine negati ve Not Available [facility] [address] [facility] [address] [address], [place], [address], 05/23/2017 17:03:45 05/23/20 17 05/23/2017 PSA, serum or plasm a glucose, urine negati ve Not Available [facility] [address] [address], [place], [address], 05/23/2017 17:03:45 05/23/20 17 05/23/2017 PSA, serum or plasm a ketones, urine negati ve Not Available [facility] [address] [facility] [address] [address], [place], [address], 05/23/2017 17:03:45 05/23/20 17 05/23/2017 PSA, serum or plasm a bilirubin, urine negati ve Not Available [facility] [address] [facility] [address], [address], [place], [address], 05/23/2017 17:03:45 05/23/20 17 05/23/2017 PSA, serum or plasm a blood, urine negati ve Not Available [facility] [address] [facility] [address], [address], [place], [address], 05/23/2017 17:03:45 05/23/20 17 05/23/2017 PSA, serum or plasm a nitrite, urine negati ve Not Available [facility] [address] [facility] [address], [address], [place], [address], 05/23/2017 17:03:45 05/23/20 17 05/23/2017 PSA, serum or plasm a leukocyte esterase negati ve Not Available [facility] [address] [facility] [address], [address], [place], [address], 05/23/2017 17:03:45 05/23/20 17 05/23/2017 PSA, serum or plasm a urobilinogen , urine <2.0 Not Available [facility] [address] [address], [address], [place], [address], 05/23/2017 17:03:45 05/23/20 17 05/23/2017 PSA, serum or plasm a protein, urine, random 9.8 Not Available [facility] [address] [facility] [address], [place], [address], 05/23/2017 17:03:45 05/23/20 17 05/23/2017 PSA, serum or plasm a creatinine, urine, random 24.9 Not Available [facility] [address] [facility] [address], [address], [place], [address], 05/23/2017 17:03:45 05/23/20 17 05/23/2017 PSA, serum or plasm a HGB 14.7 Not Available [facility] [address] [facility] [address], [address], [place], [address], 05/23/2017 17:03:45 05/23/20 17 05/23/2017 PSA, serum or plasm a HCT 44.5 Not Available [facility] [address] [facility] [address] [address], [address], [place], [address], 05/23/2017 17:03:45 05/23/20 17 05/23/2017 PSA, serum or plasm a WBC 4.5 Not Available [facility] [address] [facility] [address], [place], [address], 05/23/2017 17:03:45 05/23/20 17 05/23/2017 PSA, serum or plasm a plt 212 Not Available [facility] [address] [facility] [address], [address], [place], [address], 05/23/2017 17:03:45 05/23/20 17 05/23/2017 PSA, serum or plasm a sodium, serum 137 Not Available [facility] [address] [facility] [address], [place], [address], 05/23/2017 17:03:45 05/23/20 17 05/23/2017 PSA, serum or plasm a potassium, serum 3.5 Not Available [facility] [address] [facility] [address], [address], [place], [address], 05/23/2017 17:03:45 05/23/20 17 05/23/2017 PSA, serum or plasm a chloride, serum 99 Not Available [facility] [address] [facility] [address], [address], [place], [address], 05/23/2017 17:03:45 05/23/20 17 05/23/2017 PSA, serum or plasm a carbon dioxide 27 Not Available [facility] [address] [facility] [address], [address], [place], [address], 05/23/2017 17:03:45 05/23/20 17 05/23/2017 PSA, serum or plasm a calcium, serum 9.0 Not Available [facility] [address] [facility] [address], [address], [place], [address], 05/23/2017 17:03:45 05/23/20 17 05/23/2017 PSA, serum or plasm a glucose, serum 101 Not Available [facility] [address] [facility] [address], [place], [address], 05/23/2017 17:03:45 05/23/20 17 05/23/2017 PSA, serum or plasm a BUN 24 Not Available [facility] [address] [facility] [address], [address], [place], [address], 05/23/2017 17:03:45 05/23/20 17 05/23/2017 PSA, serum or plasm a creatinine 1.60 Not Available [facility] [address] [facility] [address], [address], [place], [address], 05/23/2017 17:03:45 05/23/20 17 05/23/2017 PSA, serum or plasm a GFR 44 Not Available [facility] [address] [facility] [address], [place], [address], 05/23/2017 17:03:45 05/23/20 17 05/23/2017 PSA, serum or plasm a bilirubin, total 0.5 Not Available [facility] [address] [facility] [address], [address], [place], [address], 05/23/2017 17:03:45 05/23/20 17 05/23/2017 PSA, serum or plasm a alkaline phosphatase 43 Not Available [facility] [address] [facility] [address], [address], [place], [address], 05/23/2017 17:03:45 05/23/20 17 05/23/2017 PSA, serum or plasm a albumin, serum 4.1 Not Available [address], [address], [place], [address], 05/23/2017 17:03:45 05/23/20 17 05/23/2017 PSA, serum or plasm a protein, total, serum 7.0 Not Available [address], [address], [place], [address], 05/23/2017 17:03:45 05/23/20 17 05/23/2017 PSA, serum or plasm a magnesium 1.8 Not Available [address], [address], [place], [address], 05/23/2017 17:03:45 05/23/20 17 05/23/2017 PSA, serum or plasm a phosphorus 2.8 Not Available [address], [address], [place], [address], 05/23/2017 17:03:45 05/23/20 17 05/23/2017 PSA, serum or plasm a uric acid 6.1 Not Available [address], [address], [place], [address], 05/23/2017 17:03:45 05/23/20 17 05/23/2017 PSA, serum or plasm a PSA, total 0.762 Not Available [address], [address], [place], [address], 05/23/2017 17:03:45 05/23/20 17 05/23/2017 uric acid, serum or plasm a color, urine straw Not Available [address], [address], [place], [address], 05/23/2017 17:03:45 05/23/20 17 05/23/2017 uric acid, serum or plasm a clarity, urine clear Not Available [address], [address], [place], [address], 05/23/2017 17:03:45 05/23/20 17 05/23/2017 uric acid, serum or plasm a pH, urine 1.006 Not Available [facility] [address] [facility] [address], [address], [place], [address], 05/23/2017 17:03:45 05/23/20 17 05/23/2017 uric acid, serum or plasm a protein, urine negati ve Not Available [address], [address], [place], [address], 05/23/2017 17:03:45 05/23/20 17 05/23/2017 uric acid, serum or plasm a glucose, urine negati ve Not Available [address] [facility] [address], [address], [place], [address], 05/23/2017 17:03:45 05/23/20 17 05/23/2017 uric acid, serum or plasm a ketones, urine negati ve Not Available [facility] [address] [place] [address] [address], [address], [place], [address], 05/23/2017 17:03:45 05/23/20 17 05/23/2017 uric acid, serum or plasm a bilirubin, urine negati ve Not Available [address], [address], [place], [address], 05/23/2017 17:03:45 05/23/20 17 05/23/2017 uric acid, serum or plasm a blood, urine negati ve Not Available [facility] [address] [facility] [address], [address], [place], [address], 05/23/2017 17:03:45 05/23/20 17 05/23/2017 uric acid, serum or plasm a nitrite, urine negati ve Not Available [facility] [address] [facility] [address], [place], [address], 05/23/2017 17:03:45 05/23/20 17 05/23/2017 uric acid, serum or plasm a leukocyte esterase negati ve Not Available [facility] [address] [facility] [address], [address], [place], [address], 05/23/2017 17:03:45 05/23/20 17 05/23/2017 uric acid, serum or plasm a urobilinogen , urine <2.0 Not Available [facility] [address] [facility] [address], [place], [address], 05/23/2017 17:03:45 05/23/20 17 05/23/2017 uric acid, serum or plasm a protein, urine, random 9.8 Not Available [facility] [address] [facility] [address], [place], [address], 05/23/2017 17:03:45 05/23/20 17 05/23/2017 uric acid, serum or plasm a creatinine, urine, random 24.9 Not Available [facility] [address] [facility] [address], [place], [address], 05/23/2017 17:03:45 05/23/20 17 05/23/2017 uric acid, serum or plasm a HGB 14.7 Not Available [facility] [address] [facility] [address], [place], [address], 05/23/2017 17:03:45 05/23/20 17 05/23/2017 uric acid, serum or plasm a HCT 44.5 Not Available [facility] [address] [facility] [address], [address], [place], [address], 05/23/2017 17:03:45 05/23/20 17 05/23/2017 uric acid, serum or plasm a WBC 4.5 Not Available [facility] [facility] [address] [place] [address] [address], [address], [place], [address], 05/23/2017 17:03:45 05/23/20 17 05/23/2017 uric acid, serum or plasm a plt 212 Not Available [facility] [address] [facility] [address]ust[address] Ramsey [address], [address], [place], [address], 05/23/2017 17:03:45 05/23/20 17 05/23/2017 uric acid, serum or plasm a sodium, serum 137 Not Available [address], [address], [place], [address], 05/23/2017 17:03:45 05/23/20 17 05/23/2017 uric acid, serum or plasm a potassium, serum 3.5 Not Available [address], [address], [place], [address], 05/23/2017 17:03:45 05/23/20 17 05/23/2017 uric acid, serum or plasm a chloride, serum 99 Not Available [address], [address], [place], [address], 05/23/2017 17:03:45 05/23/20 17 05/23/2017 uric acid, serum or plasm a carbon dioxide 27 Not Available [address], [address], [place], [address], 05/23/2017 17:03:45 05/23/20 17 05/23/2017 uric acid, serum or plasm a calcium, serum 9.0 Not Available [address], [address], [place], [address], 05/23/2017 17:03:45 05/23/20 17 05/23/2017 uric acid, serum or plasm a glucose, serum 101 Not Available [facility] [address] [facility] [address], [address], [place], [address], 05/23/2017 17:03:45 05/23/20 17 05/23/2017 uric acid, serum or plasm a BUN 24 Not Available [facility] [address] [facility] [address], [address], [place], [address], 05/23/2017 17:03:45 05/23/20 17 05/23/2017 uric acid, serum or plasm a creatinine 1.60 Not Available [facility] [address] [facility] [address], [address], [place], [address], 05/23/2017 17:03:45 05/23/20 17 05/23/2017 uric acid, serum or plasm a GFR 44 Not Available [facility] [address] [facility] [address], [address], [place], [address], 05/23/2017 17:03:45 05/23/20 17 05/23/2017 uric acid, serum or plasm a bilirubin, total 0.5 Not Available [facility] [address] [facility] [address], [address], [place], [address], 05/23/2017 17:03:45 05/23/20 17 05/23/2017 uric acid, serum or plasm a alkaline phosphatase 43 Not Available [facility] [address] [facility] [address], [address], [place], [address], 05/23/2017 17:03:45 05/23/20 17 05/23/2017 uric acid, serum or plasm a albumin, serum 4.1 Not Available [facility] [address] [facility] [address], [address], [place], [address], 05/23/2017 17:03:45 05/23/20 17 05/23/2017 uric acid, serum or plasm a protein, total, serum 7.0 Not Available [facility] [address] [facility] [address], [address], [place], [address], 05/23/2017 17:03:45 05/23/20 17 05/23/2017 uric acid, serum or plasm a magnesium 1.8 Not Available [facility] [address] [facility] [address], [address], [place], [address], 05/23/2017 17:03:45 05/23/20 17 05/23/2017 uric acid, serum or plasm a phosphorus 2.8 Not Available [address], [address], [place], [address], 05/23/2017 17:03:45 05/23/20 17 05/23/2017 uric acid, serum or plasm a uric acid 6.1 Not Available [facility] [address] [facility] [address], [address], [place], [address], 05/23/2017 17:03:45 05/23/20 17 05/23/2017 uric acid, serum or plasm a PSA, total 0.762 Not Available [facility] [address] [facility] [address], [address], [place], [address], 05/23/2017 17:03:45 05/23/20 17 05/23/2017 phosp horus , blood color, urine straw Not Available [facility] [address] [facility] [address], [address], [place], [address], 05/23/2017 17:03:45 05/23/20 17 05/23/2017 phosp horus , blood clarity, urine clear Not Available [facility] [address] [facility] [address], [address], [place], [address], 05/23/2017 17:03:45 05/23/20 17 05/23/2017 phosp horus , blood pH, urine 1.006 Not Available [facility] [address], [address], [place], [address], 05/23/2017 17:03:45 05/23/20 17 05/23/2017 phosp horus , blood protein, urine negati ve Not Available [facility] [address], [address], [place], [address], 05/23/2017 17:03:45 05/23/20 17 05/23/2017 phosp horus , blood glucose, urine negati ve Not Available [facility] [address], [address], [place], [address], 05/23/2017 17:03:45 05/23/20 17 05/23/2017 phosp horus , blood ketones, urine negati ve Not Available [facility] [address], [address], [place], [address], 05/23/2017 17:03:45 05/23/20 17 05/23/2017 phosp horus , blood bilirubin, urine negati ve Not Available [facility] [address], [address], [place], [address], 05/23/2017 17:03:45 05/23/20 17 05/23/2017 phosp horus , blood blood, urine negati ve Not Available [facility] [address], [address], [place], [address], 05/23/2017 17:03:45 05/23/20 17 05/23/2017 phosp horus , blood nitrite, urine negati ve Not Available [facility] [address] [place] [address], [address], [place], [address], 05/23/2017 17:03:45 05/23/20 17 05/23/2017 phosp horus , blood leukocyte esterase negati ve Not Available [facility] [address], [address], [place], [address], 05/23/2017 17:03:45 05/23/20 17 05/23/2017 phosp horus , blood urobilinogen , urine <2.0 Not Available [facility] [address], [address], [place], [address], 05/23/2017 17:03:45 05/23/20 17 05/23/2017 phosp horus , blood protein, urine, random 9.8 Not Available [facility] [address], [address], [place], [address], 05/23/2017 17:03:45 05/23/20 17 05/23/2017 phosp horus , blood creatinine, urine, random 24.9 Not Available [facility] [address], [address], [place], [address], 05/23/2017 17:03:45 05/23/20 17 05/23/2017 phosp horus , blood HGB 14.7 Not Available [facility] [address], [address], [place], [address], 05/23/2017 17:03:45 05/23/20 17 05/23/2017 phosp horus , blood HCT 44.5 Not Available [facility] [address], [address], [place], [address], 05/23/2017 17:03:45 05/23/20 17 05/23/2017 phosp horus , blood WBC 4.5 Not Available [facility] [address], [address], [place], [address], 05/23/2017 17:03:45 05/23/20 17 05/23/2017 phosp horus , blood plt 212 Not Available [facility] [address], [address], [place], [address], 05/23/2017 17:03:45 05/23/20 17 05/23/2017 phosp horus , blood sodium, serum 137 Not Available [facility] [address], [address], [place], [address], 05/23/2017 17:03:45 05/23/20 17 05/23/2017 phosp horus , blood potassium, serum 3.5 Not Available [facility] [address], [address], [place], [address], 05/23/2017 17:03:45 05/23/20 17 05/23/2017 phosp horus , blood chloride, serum 99 Not Available [facility] [address], [address], [place], [address], 05/23/2017 17:03:45 05/23/20 17 05/23/2017 phosp horus , blood carbon dioxide 27 Not Available [facility] [address], [address], [place], [address], 05/23/2017 17:03:45 05/23/20 17 05/23/2017 phosp horus , blood calcium, serum 9.0 Not Available [facility] [address], [address], [place], [address], 05/23/2017 17:03:45 05/23/20 17 05/23/2017 phosp horus , blood glucose, serum 101 Not Available [facility] [address], [address], [place], [address], 05/23/2017 17:03:45 05/23/20 17 05/23/2017 phosp horus , blood BUN 24 Not Available [facility] [address] [facility] [address], [address], [place], [address], 05/23/2017 17:03:45 05/23/20 17 05/23/2017 phosp horus , blood creatinine 1.60 Not Available [facility] [address] [facility] [address], [address], [place], [address], 05/23/2017 17:03:45 05/23/20 17 05/23/2017 phosp horus , blood GFR 44 Not Available [facility] [address] [facility] [address], [address], [place], [address], 05/23/2017 17:03:45 05/23/20 17 05/23/2017 phosp horus , blood bilirubin, total 0.5 Not Available [facility] [address] [facility] [address], [address], [place], [address], 05/23/2017 17:03:45 05/23/20 17 05/23/2017 phosp horus , blood alkaline phosphatase 43 Not Available [facility] [address] [facility] [address], [address], [place], [address], 05/23/2017 17:03:45 05/23/20 17 05/23/2017 phosp horus , blood albumin, serum 4.1 Not Available [facility] [address] [facility] [address], [address], [place], [address], 05/23/2017 17:03:45 05/23/20 17 05/23/2017 phosp horus , blood protein, total, serum 7.0 Not Available [facility] [address] [facility] [address], [address], [place], [address], 05/23/2017 17:03:45 05/23/20 17 05/23/2017 phosp horus , blood magnesium 1.8 Not Available [facility] [address] [facility] [address], [address], [place], [address], 05/23/2017 17:03:45 05/23/20 17 05/23/2017 phosp horus , blood phosphorus 2.8 Not Available [facility] [address], [place], [address], 05/23/2017 17:03:45 05/23/20 17 05/23/2017 phosp horus , blood uric acid 6.1 Not Available [facility] [address] [facility] [address], [address], [place], [address], 05/23/2017 17:03:45 05/23/20 17 05/23/2017 phosp horus , blood PSA, total 0.762 Not Available [facility] [address] [facility] [address], [address], [place], [address], 05/23/2017 17:03:45 05/23/20 17 05/23/2017 magne sium, blood color, urine straw Not Available [facility] [address] [facility] [address], [address], [place], [address], 05/23/2017 17:03:45 05/23/20 17 05/23/2017 magne sium, blood clarity, urine clear Not Available [facility] [address], [address], [place], [address], 05/23/2017 17:03:45 05/23/20 17 05/23/2017 magne sium, blood pH, urine 1.006 Not Available [facility] [address], [address], [place], [address], 05/23/2017 17:03:45 05/23/20 17 05/23/2017 magne sium, blood protein, urine negati ve Not Available [facility] [address] [facility] [address], [address], [place], [address], 05/23/2017 17:03:45 05/23/20 17 05/23/2017 magne sium, blood glucose, urine negati ve Not Available [facility] [address], [address], [place], [address], 05/23/2017 17:03:45 05/23/20 17 05/23/2017 magne sium, blood ketones, urine negati ve Not Available [facility] [address] [facility] [address], [address], [place], [address], 05/23/2017 17:03:45 05/23/20 17 05/23/2017 magne sium, blood bilirubin, urine negati ve Not Available [facility] [address] [facility] [address], [address], [place], [address], 05/23/2017 17:03:45 05/23/20 17 05/23/2017 magne sium, blood blood, urine negati ve Not Available [facility] [address] [facility] [address], [address], [place], [address], 05/23/2017 17:03:45 05/23/20 17 05/23/2017 magne sium, blood nitrite, urine negati ve Not Available [facility] [address] [facility] [address], [address], [place], [address], 05/23/2017 17:03:45 05/23/20 17 05/23/2017 magne sium, blood leukocyte esterase negati ve Not Available [facility] [address] [facility] [address], [address], [place], [address], 05/23/2017 17:03:45 05/23/20 17 05/23/2017 magne sium, blood urobilinogen , urine <2.0 Not Available [facility] [address] [facility] [address], [address], [place], [address], 05/23/2017 17:03:45 05/23/20 17 05/23/2017 magne sium, blood protein, urine, random 9.8 Not Available [facility] [address] [facility] [address], [address], [place], [address], 05/23/2017 17:03:45 05/23/20 17 05/23/2017 magne sium, blood creatinine, urine, random 24.9 Not Available [facility] [address] [facility] [address], [address], [place], [address], 05/23/2017 17:03:45 05/23/20 17 05/23/2017 magne sium, blood HGB 14.7 Not Available [facility] [address] [facility] [address], [address], [place], [address], 05/23/2017 17:03:45 05/23/20 17 05/23/2017 magne sium, blood HCT 44.5 Not Available [facility] [address] [facility] [address], [address], [place], [address], 05/23/2017 17:03:45 05/23/20 17 05/23/2017 magne sium, blood WBC 4.5 Not Available [facility] [address] [facility] [address], [address], [place], [address], 05/23/2017 17:03:45 05/23/20 17 05/23/2017 magne sium, blood plt 212 Not Available [facility] [address] [facility] [address], [address], [place], [address], 05/23/2017 17:03:45 05/23/20 17 05/23/2017 magne sium, blood sodium, serum 137 Not Available [facility] [address] [facility] [address], [address], [place], [address], 05/23/2017 17:03:45 05/23/20 17 05/23/2017 magne sium, blood potassium, serum 3.5 Not Available [facility] [address], [address], [place], [address], 05/23/2017 17:03:45 05/23/20 17 05/23/2017 magne sium, blood chloride, serum 99 Not Available [facility] [address], [address], [place], [address], 05/23/2017 17:03:45 05/23/20 17 05/23/2017 magne sium, blood carbon dioxide 27 Not Available [facility] [address], [address], [place], [address], 05/23/2017 17:03:45 05/23/20 17 05/23/2017 magne sium, blood calcium, serum 9.0 Not Available [facility] [address], [address], [place], [address], 05/23/2017 17:03:45 05/23/20 17 05/23/2017 magne sium, blood glucose, serum 101 Not Available [facility] [address], [address], [place], [address], 05/23/2017 17:03:45 05/23/20 17 05/23/2017 magne sium, blood BUN 24 Not Available [facility] [address], [address], [place], [address], 05/23/2017 17:03:45 05/23/20 17 05/23/2017 magne sium, blood creatinine 1.60 Not Available [facility] [address], [address], [place], [address], 05/23/2017 17:03:45 05/23/20 17 05/23/2017 magne sium, blood GFR 44 Not Available [facility] [address] [facility] [address], [address], [place], [address], 05/23/2017 17:03:45 05/23/20 17 05/23/2017 magne sium, blood bilirubin, total 0.5 Not Available [facility] [address] [facility] [address], [address], [place], [address], 05/23/2017 17:03:45 05/23/20 17 05/23/2017 magne sium, blood alkaline phosphatase 43 Not Available [facility] [address] [facility] [address], [address], [place], [address], 05/23/2017 17:03:45 05/23/20 17 05/23/2017 magne sium, blood albumin, serum 4.1 Not Available [facility] [address] [facility] [address], [address], [place], [address], 05/23/2017 17:03:45 05/23/20 17 05/23/2017 magne sium, blood protein, total, serum 7.0 Not Available [facility] [address] [facility] [address], [address], [place], [address], 05/23/2017 17:03:45 05/23/20 17 05/23/2017 magne sium, blood magnesium 1.8 Not Available [facility] [address] [facility] [address], [address], [place], [address], 05/23/2017 17:03:45 05/23/20 17 05/23/2017 magne sium, blood phosphorus 2.8 Not Available [facility] [address] [facility] [address], [address], [place], [address], 05/23/2017 17:03:45 05/23/20 17 05/23/2017 magne sium, blood uric acid 6.1 Not Available [facility] [address] [facility] [address], [address], [place], [address], 05/23/2017 17:03:45 05/23/20 17 05/23/2017 magne sium, blood PSA, total 0.762 Not Available [facility] [address] [facility] [address], [address], [place], [address], 05/23/2017 17:03:45 05/23/20 17 05/23/2017 CMP, serum or plasm a color, urine straw Not Available [facility] [address] [facility] [address], [address], [place], [address], 05/23/2017 17:03:45 05/23/20 17 05/23/2017 CMP, serum or plasm a clarity, urine clear Not Available [facility] [address] [facility] [address], [address], [place], [address], 05/23/2017 17:03:45 05/23/20 17 05/23/2017 CMP, serum or plasm a pH, urine 1.006 Not Available [facility] [address] [facility] [address], [address], [place], [address], 05/23/2017 17:03:45 05/23/20 17 05/23/2017 CMP, serum or plasm a protein, urine negati ve Not Available [facility] [address] [facility] [address], [address], [place], [address], 05/23/2017 17:03:45 05/23/20 17 05/23/2017 CMP, serum or plasm a glucose, urine negati ve Not Available [facility] [address] [facility] [address], [address], [place], [address], 05/23/2017 17:03:45 05/23/20 17 05/23/2017 CMP, serum or plasm a ketones, urine negati ve Not Available [facility] [address] [facility] [address], [address], [place], [address], 05/23/2017 17:03:45 05/23/20 17 05/23/2017 CMP, serum or plasm a bilirubin, urine negati ve Not Available [facility] [address] [facility] [address], [address], [place], [address], 05/23/2017 17:03:45 05/23/20 17 05/23/2017 CMP, serum or plasm a blood, urine negati ve Not Available [facility] [address] [facility] [address], [address], [place], [address], 05/23/2017 17:03:45 05/23/20 17 05/23/2017 CMP, serum or plasm a nitrite, urine negati ve Not Available [facility] [address] [facility] [address], [place], [address], 05/23/2017 17:03:45 05/23/20 17 05/23/2017 CMP, serum or plasm a leukocyte esterase negati ve Not Available [facility] [address] [facility] [address], [address], [place], [address], 05/23/2017 17:03:45 05/23/20 17 05/23/2017 CMP, serum or plasm a urobilinogen , urine <2.0 Not Available [facility] [address] [facility] [address], [place], [address], 05/23/2017 17:03:45 05/23/20 17 05/23/2017 CMP, serum or plasm a protein, urine, random 9.8 Not Available [facility] [address] [facility] [address], [place], [address], 05/23/2017 17:03:45 05/23/20 17 05/23/2017 CMP, serum or plasm a creatinine, urine, random 24.9 Not Available [facility] [address] [facility] [address], [address], [place], [address], 05/23/2017 17:03:45 05/23/20 17 05/23/2017 CMP, serum or plasm a HGB 14.7 Not Available [facility] [address] [facility] [address], [address], [place], [address], 05/23/2017 17:03:45 05/23/20 17 05/23/2017 CMP, serum or plasm a HCT 44.5 Not Available [facility] [address] [facility] [address], [address], [place], [address], 05/23/2017 17:03:45 05/23/20 17 05/23/2017 CMP, serum or plasm a WBC 4.5 Not Available [facility] [address] [facility] [address], [address], [place], [address], 05/23/2017 17:03:45 05/23/20 17 05/23/2017 CMP, serum or plasm a plt 212 Not Available [facility] [address] [facility] [address], [address], [place], [address], 05/23/2017 17:03:45 05/23/20 17 05/23/2017 CMP, serum or plasm a sodium, serum 137 Not Available [facility] [address] [facility] [address], [address], [place], [address], 05/23/2017 17:03:45 05/23/20 17 05/23/2017 CMP, serum or plasm a potassium, serum 3.5 Not Available [facility] [address] [facility] [address], [place], [address], 05/23/2017 17:03:45 05/23/20 17 05/23/2017 CMP, serum or plasm a chloride, serum 99 Not Available [facility] [address] [facility] [address], [address], [place], [place], [address], 05/23/2017 17:03:45 05/23/20 17 05/23/2017 CMP, serum or plasm a carbon dioxide 27 Not Available [facility] [address], [place], [address], 05/23/2017 17:03:45 05/23/20 17 05/23/2017 CMP, serum or plasm a calcium, serum 9.0 Not Available [facility] [address], [address], [place], [address], 05/23/2017 17:03:45 05/23/20 17 05/23/2017 CMP, serum or plasm a glucose, serum 101 Not Available [facility] [address], [address], [place], [address], 05/23/2017 17:03:45 05/23/20 17 05/23/2017 CMP, serum or plasm a BUN 24 Not Available [facility] [address], [address], [place], [address], 05/23/2017 17:03:45 05/23/20 17 05/23/2017 CMP, serum or plasm a creatinine 1.60 Not Available [facility] [address], [address], [place], [address], 05/23/2017 17:03:45 05/23/20 17 05/23/2017 CMP, serum or plasm a GFR 44 Not Available [facility] [address], [address], [place], [address], 05/23/2017 17:03:45 05/23/20 17 05/23/2017 CMP, serum or plasm a bilirubin, total 0.5 Not Available [address], [address], [place], [address], 05/23/2017 17:03:45 05/23/20 17 05/23/2017 CMP, serum or plasm a alkaline phosphatase 43 Not Available [address], [address], [place], [address], 05/23/2017 17:03:45 05/23/20 17 05/23/2017 CMP, serum or plasm a albumin, serum 4.1 Not Available [address], [address], [place], [address], 05/23/2017 17:03:45 05/23/20 17 05/23/2017 CMP, serum or plasm a protein, total, serum 7.0 Not Available [address], [address], [place], [address], 05/23/2017 17:03:45 05/23/20 17 05/23/2017 CMP, serum or plasm a magnesium 1.8 Not Available [address], [address], [place], [address], 05/23/2017 17:03:45 05/23/20 17 05/23/2017 CMP, serum or plasm a phosphorus 2.8 Not Available [address], [address], [place], [address], 05/23/2017 17:03:45 05/23/20 17 05/23/2017 CMP, serum or plasm a uric acid 6.1 Not Available [facility] [address], [address], [place], [address], 05/23/2017 17:03:45 05/23/20 17 05/23/2017 CMP, serum or plasm a PSA, total 0.762 Not Available [facility] [address] [facility] [address], [address], [place], [address], 05/23/2017 17:03:45 05/23/20 17 05/23/2017 CBC w/ auto diff color, urine straw Not Available [facility] [address], [address], [place], [address], 05/23/2017 17:03:45 05/23/20 17 05/23/2017 CBC w/ auto diff clarity, urine clear Not Available [facility] [address], [address], [place], [address], 05/23/2017 17:03:45 05/23/20 17 05/23/2017 CBC w/ auto diff pH, urine 1.006 Not Available [facility] [address], [address], [place], [address], 05/23/2017 17:03:45 05/23/20 17 05/23/2017 CBC w/ auto diff protein, urine negati ve Not Available [facility] [address], [address], [place], [address], 05/23/2017 17:03:45 05/23/20 17 05/23/2017 CBC w/ auto diff glucose, urine negati ve Not Available [facility] [address], [address], [place], [address], 05/23/2017 17:03:45 05/23/20 17 05/23/2017 CBC w/ auto diff ketones, urine negati ve Not Available [facility] [address], [address], [place], [address], 05/23/2017 17:03:45 05/23/20 17 05/23/2017 CBC w/ auto diff bilirubin, urine negati ve Not Available [facility] [address], [address], [place], [address], 05/23/2017 17:03:45 05/23/20 17 05/23/2017 CBC w/ auto diff blood, urine negati ve Not Available [facility] [address] [facility] [address], [address], [place], [address], 05/23/2017 17:03:45 05/23/20 17 05/23/2017 CBC w/ auto diff nitrite, urine negati ve Not Available [facility] [address], [address], [place], [address], 05/23/2017 17:03:45 05/23/20 17 05/23/2017 CBC w/ auto diff leukocyte esterase negati ve Not Available [facility] [address], [address], [place], [address], 05/23/2017 17:03:45 05/23/20 17 05/23/2017 CBC w/ auto diff urobilinogen , urine <2.0 Not Available [facility] [address], [address], [place], [address], 05/23/2017 17:03:45 05/23/20 17 05/23/2017 CBC w/ auto diff protein, urine, random 9.8 Not Available [facility] [address], [address], [place], [address], 05/23/2017 17:03:45 05/23/20 17 05/23/2017 CBC w/ auto diff creatinine, urine, random 24.9 Not Available [facility] [address], [address], [place], [address], 05/23/2017 17:03:45 05/23/20 17 05/23/2017 CBC w/ auto diff HGB 14.7 Not Available [facility] [address], [address], [place], [address], 05/23/2017 17:03:45 05/23/20 17 05/23/2017 CBC w/ auto diff HCT 44.5 Not Available [facility] [address] [facility] [address], [address], [place], [address], 05/23/2017 17:03:45 05/23/20 17 05/23/2017 CBC w/ auto diff WBC 4.5 Not Available [facility] [address] [facility] [address], [address], [place], [address], 05/23/2017 17:03:45 05/23/20 17 05/23/2017 CBC w/ auto diff plt 212 Not Available [facility] [address] [facility] [address], [address], [place], [address], 05/23/2017 17:03:45 05/23/20 17 05/23/2017 CBC w/ auto diff sodium, serum 137 Not Available [facility] [address] [facility] [address], [address], [place], [address], 05/23/2017 17:03:45 05/23/20 17 05/23/2017 CBC w/ auto diff potassium, serum 3.5 Not Available [facility] [address] [facility] [address], [address], [place], [address], 05/23/2017 17:03:45 05/23/20 17 05/23/2017 CBC w/ auto diff chloride, serum 99 Not Available [facility] [address] [facility] [address], [address], [place], [address], 05/23/2017 17:03:45 05/23/20 17 05/23/2017 CBC w/ auto diff carbon dioxide 27 Not Available [facility] [address] [facility] [address], [address], [place], [address], 05/23/2017 17:03:45 05/23/20 17 05/23/2017 CBC w/ auto diff calcium, serum 9.0 Not Available [facility] [address] [facility] [address], [address], [place], [address], 05/23/2017 17:03:45 05/23/20 17 05/23/2017 CBC w/ auto diff glucose, serum 101 Not Available [facility] [address], [address], [place], [address], 05/23/2017 17:03:45 05/23/20 17 05/23/2017 CBC w/ auto diff BUN 24 Not Available [facility] [address] [facility] [address], [address], [place], [address], 05/23/2017 17:03:45 05/23/20 17 05/23/2017 CBC w/ auto diff creatinine 1.60 Not Available [facility] [address] [facility] [address], [address], [place], [address], 05/23/2017 17:03:45 05/23/20 17 05/23/2017 CBC w/ auto diff GFR 44 Not Available [facility] [address] [facility] [address], [address], [place], [address], 05/23/2017 17:03:45 05/23/20 17 05/23/2017 CBC w/ auto diff bilirubin, total 0.5 Not Available [facility] [address] [facility] [address], [address], [place], [address], 05/23/2017 17:03:45 05/23/20 17 05/23/2017 CBC w/ auto diff alkaline phosphatase 43 Not Available [facility] [address] [facility] [address], [address], [place], [address], 05/23/2017 17:03:45 05/23/20 17 05/23/2017 CBC w/ auto diff albumin, serum 4.1 Not Available [facility] [address] [facility] [address], [address], [place], [address], 05/23/2017 17:03:45 05/23/20 17 05/23/2017 CBC w/ auto diff protein, total, serum 7.0 Not Available [facility] [address] [facility] [address], [address], [place], [address], 05/23/2017 17:03:45 05/23/20 17 05/23/2017 CBC w/ auto diff magnesium 1.8 Not Available [facility] [address] [facility] [address], [address], [place], [address], 05/23/2017 17:03:45 05/23/20 17 05/23/2017 CBC w/ auto diff phosphorus 2.8 Not Available [address], [address], [place], [address], 05/23/2017 17:03:45 05/23/20 17 05/23/2017 CBC w/ auto diff uric acid 6.1 Not Available [facility] [address] [facility] [address], [address], [place], [address], 05/23/2017 17:03:45 05/23/20 17 05/23/2017 CBC w/ auto diff PSA, total 0.762 Not Available [address], [address], [place], [address], 05/23/2017 17:03:45 05/23/20 17 05/23/2017 prote in:cr eatin ine ratio , urine color, urine straw Not Available [facility] [address], [address], [place], [address], 05/23/2017 17:03:44 05/23/20 17 05/23/2017 prote in:cr eatin ine ratio , urine clarity, urine clear Not Available [facility] [address] [facility] [address], [address], [place], [address], 05/23/2017 17:03:44 05/23/20 17 05/23/2017 prote in:cr eatin ine ratio , urine pH, urine 1.006 Not Available [facility] [address] [facility] [address], [address], [place], [address], 05/23/2017 17:03:44 05/23/20 17 05/23/2017 prote in:cr eatin ine ratio , urine protein, urine negati ve Not Available [facility] [address] [facility] [address], [address], [place], [address], 05/23/2017 17:03:44 05/23/20 17 05/23/2017 prote in:cr eatin ine ratio , urine glucose, urine negati ve Not Available [facility] [address] [facility] [address], [address], [place], [address], 05/23/2017 17:03:44 05/23/20 17 05/23/2017 prote in:cr eatin ine ratio , urine ketones, urine negati ve Not Available [facility] [address] [facility] [address], [address], [place], [address], 05/23/2017 17:03:44 05/23/20 17 05/23/2017 prote in:cr eatin ine ratio , urine bilirubin, urine negati ve Not Available [facility] [address] [facility] [address], [address], [place], [address], 05/23/2017 17:03:44 05/23/20 17 05/23/2017 prote in:cr eatin ine ratio , urine blood, urine negati ve Not Available [facility] [address] [facility] [address], [address], [place], [address], 05/23/2017 17:03:44 05/23/20 17 05/23/2017 prote in:cr eatin ine ratio , urine nitrite, urine negati ve Not Available [facility] [address] [facility] [address], [address], [place], [address], 05/23/2017 17:03:44 05/23/20 17 05/23/2017 prote in:cr eatin ine ratio , urine leukocyte esterase negati ve Not Available [facility] [address] [facility] [address], [address], [place], [address], 05/23/2017 17:03:44 05/23/20 17 05/23/2017 prote in:cr eatin ine ratio , urine urobilinogen , urine <2.0 Not Available [facility] [address] [facility] [address], [address], [place], [address], 05/23/2017 17:03:44 05/23/20 17 05/23/2017 prote in:cr eatin ine ratio , urine protein, urine, random 9.8 Not Available [facility] [address], [address], [place], [address], 05/23/2017 17:03:44 05/23/20 17 05/23/2017 prote in:cr eatin ine ratio , urine creatinine, urine, random 24.9 Not Available [facility] [address], [address], [place], [address], 05/23/2017 17:03:44 05/23/20 17 05/23/2017 prote in:cr eatin ine ratio , urine HGB 14.7 Not Available [facility] [address], [address], [place], [address], 05/23/2017 17:03:44 05/23/20 17 05/23/2017 prote in:cr eatin ine ratio , urine HCT 44.5 Not Available [facility] [address] [facility] [address], [address], [place], [address], 05/23/2017 17:03:44 05/23/20 17 05/23/2017 prote in:cr eatin ine ratio , urine WBC 4.5 Not Available [facility] [address], [address], [place], [address], 05/23/2017 17:03:44 05/23/20 17 05/23/2017 prote in:cr eatin ine ratio , urine plt 212 Not Available [facility] [address], [address], [place], [address], 05/23/2017 17:03:44 05/23/20 17 05/23/2017 prote in:cr eatin ine ratio , urine sodium, serum 137 Not Available [facility] [address], [address], [place], [address], 05/23/2017 17:03:44 05/23/20 17 05/23/2017 prote in:cr eatin ine ratio , urine potassium, serum 3.5 Not Available [facility] [address], [address], [place], [address], 05/23/2017 17:03:44 05/23/20 17 05/23/2017 prote in:cr eatin ine ratio , urine chloride, serum 99 Not Available [facility] [address], [address], [place], [address], 05/23/2017 17:03:44 05/23/20 17 05/23/2017 prote in:cr eatin ine ratio , urine carbon dioxide 27 Not Available [facility] [address], [address], [place], [address], 05/23/2017 17:03:44 05/23/20 17 05/23/2017 prote in:cr eatin ine ratio , urine calcium, serum 9.0 Not Available [facility] [address] [facility] [address], [address], [place], [address], 05/23/2017 17:03:44 05/23/20 17 05/23/2017 prote in:cr eatin ine ratio , urine glucose, serum 101 Not Available [facility] [address] [facility] [address], [address], [place], [address], 05/23/2017 17:03:44 05/23/20 17 05/23/2017 prote in:cr eatin ine ratio , urine BUN 24 Not Available [facility] [address] [facility] [address], [address], [place], [address], 05/23/2017 17:03:44 05/23/20 17 05/23/2017 prote in:cr eatin ine ratio , urine creatinine 1.60 Not Available [facility] [address] [facility] [address], [address], [place], [address], 05/23/2017 17:03:44 05/23/20 17 05/23/2017 prote in:cr eatin ine ratio , urine GFR 44 Not Available [facility] [address] [facility] [address], [address], [place], [address], 05/23/2017 17:03:44 05/23/20 17 05/23/2017 prote in:cr eatin ine ratio , urine bilirubin, total 0.5 Not Available [facility] [address] [facility] [address], [address], [place], [address], 05/23/2017 17:03:44 05/23/20 17 05/23/2017 prote in:cr eatin ine ratio , urine alkaline phosphatase 43 Not Available [facility] [address] [facility] [address], [address], [place], [address], 05/23/2017 17:03:44 05/23/20 17 05/23/2017 prote in:cr eatin ine ratio , urine albumin, serum 4.1 Not Available [facility] [address] [facility] [address], [address], [place], [address], 05/23/2017 17:03:44 05/23/20 17 05/23/2017 prote in:cr eatin ine ratio , urine protein, total, serum 7.0 Not Available [facility] [address] [facility] [address], [address], [place], [address], 05/23/2017 17:03:44 05/23/20 17 05/23/2017 prote in:cr eatin ine ratio , urine magnesium 1.8 Not Available [facility] [address] [facility] [address], [address], [place], [address], 05/23/2017 17:03:44 05/23/20 17 05/23/2017 prote in:cr eatin ine ratio , urine phosphorus 2.8 Not Available [facility] [address] [facility] [address], [address], [place], [address], 05/23/2017 17:03:44 05/23/20 17 05/23/2017 prote in:cr eatin ine ratio , urine uric acid 6.1 Not Available [facility] [address] [facility] [address], [address], [place], [address], 05/23/2017 17:03:44 05/23/20 17 05/23/2017 prote in:cr eatin ine ratio , urine PSA, total 0.762 Not Available [facility] [address] [facility] [address], [place], [address], 05/23/2017 17:03:44 05/23/20 17 05/23/2017 urina lysis , dipst ick, refle x micro color, urine straw Not Available [facility] [address] [facility] [address], [place], [address], 05/23/2017 15:47:58 05/23/20 17 05/23/2017 urina lysis , dipst ick, refle x micro clarity, urine clear Not Available [facility] [address] [place], [place] [address]za [facility] [address], [address], [place], [address], 05/23/2017 15:47:58 05/23/20 17 05/23/2017 urina lysis , dipst ick, refle x micro pH, urine 1.006 Not Available [facility] [address] [place] [address] [address], [address], [place], [address], 05/23/2017 15:47:58 05/23/20 17 05/23/2017 urina lysis , dipst ick, refle x micro protein, urine negati ve Not Available [address], [address], [place], [address], 05/23/2017 15:47:58 05/23/20 17 05/23/2017 urina lysis , dipst ick, refle x micro glucose, urine negati ve Not Available [facility] [address] [place] [address] [address], [address], [place], [address], 05/23/2017 15:47:58 05/23/20 17 05/23/2017 urina lysis , dipst ick, refle x micro ketones, urine negati ve Not Available [facility] [address] [place] [address] [address], [address], [place], [address], 05/23/2017 15:47:58 05/23/20 17 05/23/2017 urina lysis , dipst ick, refle x micro bilirubin, urine negati ve Not Available [facility] [address] [place] [address] [address], [address], [place], [address], 05/23/2017 15:47:58 05/23/20 17 05/23/2017 urina lysis , dipst ick, refle x micro blood, urine negati ve Not Available [facility] [address], [place], [address], 05/23/2017 15:47:58 05/23/20 17 05/23/2017 urina lysis , dipst ick, refle x micro nitrite, urine negati ve Not Available [facility] [address], [place], [address], 05/23/2017 15:47:58 05/23/20 17 05/23/2017 urina lysis , dipst ick, refle x micro leukocyte esterase negati ve Not Available [facility] [address] [facility] [address], [address], [place], [address], 05/23/2017 15:47:58 05/23/20 17 05/23/2017 urina lysis , dipst ick, refle x micro urobilinogen , urine <2.0 Not Available [facility] [address], [place], [address], 05/23/2017 15:47:58 05/23/20 17 05/23/2017 urina lysis , dipst ick, refle x micro protein, urine, random 9.8 Not Available [facility] [address], [place], [address], 05/23/2017 15:47:58 05/23/20 17 05/23/2017 urina lysis , dipst ick, refle x micro creatinine, urine, random 24.9 Not Available [facility] [address] [facility] [address], [address], [place], [address], 05/23/2017 15:47:58 05/23/20 17 05/23/2017 urina lysis , dipst ick, refle x micro HGB 14.7 Not Available [facility] [address], [place], [address], 05/23/2017 15:47:58 05/23/20 17 05/23/2017 urina lysis , dipst ick, refle x micro HCT 44.5 Not Available [facility] [address], [address], [place], [address], 05/23/2017 15:47:58 05/23/20 17 05/23/2017 urina lysis , dipst ick, refle x micro WBC 4.5 Not Available [facility] [address] [facility] [address], [address], [place], [address], 05/23/2017 15:47:58 05/23/20 17 05/23/2017 urina lysis , dipst ick, refle x micro plt 212 Not Available [facility] [address] [facility] [address], [address], [place], [address], 05/23/2017 15:47:58 05/23/20 17 05/23/2017 urina lysis , dipst ick, refle x micro sodium, serum 137 Not Available [facility] [address], [address], [place], [address], 05/23/2017 15:47:58 05/23/20 17 05/23/2017 urina lysis , dipst ick, refle x micro potassium, serum 3.5 Not Available [facility] [address], [address], [place], [address], 05/23/2017 15:47:58 05/23/20 17 05/23/2017 urina lysis , dipst ick, refle x micro chloride, serum 99 Not Available [facility] [address], [address], [place], [address], 05/23/2017 15:47:58 05/23/20 17 05/23/2017 urina lysis , dipst ick, refle x micro carbon dioxide 27 Not Available [facility] [address] [facility] [address], [address], [place], [address], 05/23/2017 15:47:58 05/23/20 17 05/23/2017 urina lysis , dipst ick, refle x micro calcium, serum 9.0 Not Available [facility] [facility] [address], [address], [place], [address], 05/23/2017 15:47:58 05/23/20 17 05/23/2017 urina lysis , dipst ick, refle x micro glucose, serum 101 Not Available [facility] [address], [address], [place], [address], 05/23/2017 15:47:58 05/23/20 17 05/23/2017 urina lysis , dipst ick, refle x micro BUN 24 Not Available [facility] [address] [facility] [address], [address], [place], [address], 05/23/2017 15:47:58 05/23/20 17 05/23/2017 urina lysis , dipst ick, refle x micro creatinine 1.60 Not Available [facility] [address] [facility] [address], [address], [place], [address], 05/23/2017 15:47:58 05/23/20 17 05/23/2017 urina lysis , dipst ick, refle x micro GFR 44 Not Available [facility] [address] [facility] [address], [address], [place], [address], 05/23/2017 15:47:58 05/23/20 17 05/23/2017 urina lysis , dipst ick, refle x micro bilirubin, total 0.5 Not Available [facility] [address], [place], [address], 05/23/2017 15:47:58 05/23/20 17 05/23/2017 urina lysis , dipst ick, refle x micro alkaline phosphatase 43 Not Available [facility] [address] [place], [place] [address]za [facility] [address], [address], [place], [address], 05/23/2017 15:47:58 05/23/20 17 05/23/2017 urina lysis , dipst ick, refle x micro albumin, serum 4.1 Not Available [address] [facility] [address], [address], [place], [address], 05/23/2017 15:47:58 05/23/20 17 05/23/2017 urina lysis , dipst ick, refle x micro protein, total, serum 7.0 Not Available [address] [facility] [address], [address], [place], [address], 05/23/2017 15:47:58 05/23/20 17 05/23/2017 urina lysis , dipst ick, refle x micro magnesium 1.8 Not Available [address] [facility] [address], [address], [place], [address], 05/23/2017 15:47:58 05/23/20 17 05/23/2017 urina lysis , dipst ick, refle x micro phosphorus 2.8 Not Available [address] [facility] [address], [address], [place], [address], 05/23/2017 15:47:58 05/23/20 17 05/23/2017 urina lysis , dipst ick, refle x micro uric acid 6.1 Not Available [address] [facility] [address], [address], [place], [address], 05/23/2017 15:47:58 05/23/20 17 05/23/2017 urina lysis , dipst ick, refle x micro PSA, total 0.762 Not Available [facility] [address] [facility] [address], [address], [place], [address], 05/23/2017 15:47:58 11/16/19 18 11/15/2017 urina lysis , dipst ick, refle x micro color, urine light, yellow Not Available [facility] [address], [place], [address], 11/18/2017 15:55:55 11/16/19 18 11/15/2017 urina lysis , dipst ick, refle x micro clarity, urine clear Not Available [facility] [address] [facility] [address], [address], [place], [address], 11/18/2017 15:55:55 11/16/19 18 11/15/2017 urina lysis , dipst ick, refle x micro pH, urine 6.0 Not Available [facility] [address] [facility] [address], [address], [place], [address], 11/18/2017 15:55:55 11/16/19 18 11/15/2017 urina lysis , dipst ick, refle x micro specific gravity, urine 1.010 Not Available [facility] [address] [facility] [address], [address], [place], [address], 11/18/2017 15:55:55 11/16/19 18 11/15/2017 urina lysis , dipst ick, refle x micro protein, total, urine 30 Not Available [facility] [address] [facility] [address], [address], [place], [address], 11/18/2017 15:55:55 11/16/19 18 11/15/2017 urina lysis , dipst ick, refle x micro glucose, urine negati ve Not Available [facility] [address], [place], [address], 11/18/2017 15:55:55 11/16/19 18 11/15/2017 urina lysis , dipst ick, refle x micro ketones, urine negati ve Not Available [facility] [address] [facility] [address], [address], [place], [address], 11/18/2017 15:55:55 11/16/19 18 11/15/2017 urina lysis , dipst ick, refle x micro bilirubin, urine negati ve Not Available [facility] [address], [place], [address], 11/18/2017 15:55:55 11/16/19 18 11/15/2017 urina lysis , dipst ick, refle x micro blood, urine negati ve Not Available [facility] [address], [place], [address], 11/18/2017 15:55:55 11/16/19 18 11/15/2017 urina lysis , dipst ick, refle x micro nitrite, urine negati ve Not Available [facility] [address] [facility] [address], [address], [place], [address], 11/18/2017 15:55:55 11/16/19 18 11/15/2017 urina lysis , dipst ick, refle x micro leukocyte esterase, urine negati ve Not Available [facility] [address] [facility] [address], [place], [address], 11/18/2017 15:55:55 11/16/19 18 11/15/2017 urina lysis , dipst ick, refle x micro urobilinogen , urine <2.0 Not Available [facility] [address], [place], [address], 11/18/2017 15:55:55 11/16/19 18 11/15/2017 urina lysis , dipst ick, refle x micro WBC casts, urine <1 Not Available [facility] [address] [facility] [address], [address], [place], [address], 11/18/2017 15:55:55 11/16/19 18 11/15/2017 urina lysis , dipst ick, refle x micro red blood cells, urine 0 Not Available [facility] [address] [facility] [address], [address], [place], [address], 11/18/2017 15:55:55 11/16/19 18 11/15/2017 urina lysis , dipst ick, refle x micro epithelial cells, urine <1 Not Available [facility] [address] [facility] [address], [address], [place], [address], 11/18/2017 15:55:55 11/16/19 18 11/15/2017 urina lysis , dipst ick, refle x micro protein, urine, random 10.1 Not Available [facility] [address] [facility] [address], [address], [place], [address], 11/18/2017 15:55:55 11/16/19 18 11/15/2017 urina lysis , dipst ick, refle x micro creatinine, urine, random 48.7 Not Available [facility] [address] [facility] [address], [address], [place], [address], 11/18/2017 15:55:55 11/16/19 18 11/15/2017 urina lysis , dipst ick, refle x micro HGB 15.3 Not Available [facility] [address], [address], [place], [address], 11/18/2017 15:55:55 11/16/19 18 11/15/2017 urina lysis , dipst ick, refle x micro HCT 44.1 Not Available [facility] [address] [facility] [address], [place], [address], 11/18/2017 15:55:55 11/16/19 18 11/15/2017 urina lysis , dipst ick, refle x micro WBC 6.6 Not Available [facility] [address] [facility] [address], [address], [place], [address], 11/18/2017 15:55:55 11/16/19 18 11/15/2017 urina lysis , dipst ick, refle x micro plt 275 Not Available [facility] [address], [address], [place], [address], 11/18/2017 15:55:55 11/16/19 18 11/15/2017 urina lysis , dipst ick, refle x micro sodium, serum 137 Not Available [facility] [address] [facility] [address], [address], [place], [address], 11/18/2017 15:55:55 11/16/19 18 11/15/2017 urina lysis , dipst ick, refle x micro potassium, seerum 4.0 Not Available [facility] [address], [address], [place], [address], 11/18/2017 15:55:55 11/16/19 18 11/15/2017 urina lysis , dipst ick, refle x micro chloride, serum 96 Not Available [facility] [address] [facility] [address], [address], [place], [address], 11/18/2017 15:55:55 11/16/19 18 11/15/2017 urina lysis , dipst ick, refle x micro carbon dioxide 27 Not Available [facility] [address] [facility] [address], [address], [place], [address], 11/18/2017 15:55:55 11/16/19 18 11/15/2017 urina lysis , dipst ick, refle x micro calcium, serum 9.5 Not Available [facility] [address] [facility] [address], [address], [place], [address], 11/18/2017 15:55:55 11/16/19 18 11/15/2017 urina lysis , dipst ick, refle x micro glucose, serum 92 Not Available [facility] [address], [address], [place], [address], 11/18/2017 15:55:55 11/16/19 18 11/15/2017 urina lysis , dipst ick, refle x micro BUN 27 Not Available [facility] [address], [address], [place], [address], 11/18/2017 15:55:55 11/16/19 18 11/15/2017 urina lysis , dipst ick, refle x micro creatinine 1.63 Not Available [facility] [address], [address], [place], [address], 11/18/2017 15:55:55 11/16/19 18 11/15/2017 urina lysis , dipst ick, refle x micro GFR 43 Not Available [facility] [address], [address], [place], [address], 11/18/2017 15:55:55 11/16/19 18 11/15/2017 urina lysis , dipst ick, refle x micro bilirubin, total 0.6 Not Available [facility] [address], [address], [place], [address], 11/18/2017 15:55:55 11/16/19 18 11/15/2017 urina lysis , dipst ick, refle x micro albumin, serum 4.5 Not Available [facility] [address] [facility] [address], [address], [place], [address], 11/18/2017 15:55:55 11/16/19 18 11/15/2017 urina lysis , dipst ick, refle x micro protein, total, serum 7.5 Not Available [address], [address], [place], [address], 11/18/2017 15:55:55 11/16/19 18 11/15/2017 urina lysis , dipst ick, refle x micro magnesium 1.8 Not Available [facility] [address], [place], [address], 11/18/2017 15:55:55 11/16/19 18 11/15/2017 urina lysis , dipst ick, refle x micro phosphorus 3.6 Not Available [address] [facility] [address], [address], [place], [address], 11/18/2017 15:55:55 11/16/19 18 11/15/2017 urina lysis , dipst ick, refle x micro uric acid 5.6 Not Available [address], [place], [address], 11/18/2017 15:55:55 11/16/19 18 11/15/2017 uric acid, serum or plasm a color, urine light, yellow Not Available [address] [facility] [address], [address], [place], [address], 11/19/2017 19:46:51 11/16/19 18 11/15/2017 uric acid, serum or plasm a clarity, urine clear Not Available [facility] [address], [place], [address], 11/19/2017 19:46:51 11/16/19 18 11/15/2017 uric acid, serum or plasm a pH, urine 6.0 Not Available [address], [address], [place], [address], 11/19/2017 19:46:51 11/16/19 18 11/15/2017 uric acid, serum or plasm a specific gravity, urine 1.010 Not Available [address], [address], [place], [address], 11/19/2017 19:46:51 11/16/19 18 11/15/2017 uric acid, serum or plasm a protein, total, urine 30 Not Available [address], [address], [place], [address], 11/19/2017 19:46:51 11/16/19 18 11/15/2017 uric acid, serum or plasm a glucose, urine negati ve Not Available [address], [address], [place], [address], 11/19/2017 19:46:51 11/16/19 18 11/15/2017 uric acid, serum or plasm a ketones, urine negati ve Not Available [address], [address], [place], [address], 11/19/2017 19:46:51 11/16/19 18 11/15/2017 uric acid, serum or plasm a bilirubin, urine negati ve Not Available [address], [place], [address], 11/19/2017 19:46:51 11/16/19 18 11/15/2017 uric acid, serum or plasm a blood, urine negati ve Not Available [address], [address], [place], [address], 11/19/2017 19:46:51 11/16/19 18 11/15/2017 uric acid, serum or plasm a nitrite, urine negati ve Not Available [facility] [address], [place], [address], 11/19/2017 19:46:51 11/16/19 18 11/15/2017 uric acid, serum or plasm a leukocyte esterase, urine negati ve Not Available [address], [place], [address], 11/19/2017 19:46:51 11/16/19 18 11/15/2017 uric acid, serum or plasm a urobilinogen , urine <2.0 Not Available [facility] [address], [place], [address], 11/19/2017 19:46:51 11/16/19 18 11/15/2017 uric acid, serum or plasm a WBC casts, urine <1 Not Available [address], [place], [address], 11/19/2017 19:46:51 11/16/19 18 11/15/2017 uric acid, serum or plasm a red blood cells, urine 0 Not Available [address], [place], [address], 11/19/2017 19:46:51 11/16/19 18 11/15/2017 uric acid, serum or plasm a epithelial cells, urine <1 Not Available [address], [place], [address], 11/19/2017 19:46:51 11/16/19 18 11/15/2017 uric acid, serum or plasm a protein, urine, random 10.1 Not Available [address], [place], [address], 11/19/2017 19:46:51 11/16/19 18 11/15/2017 uric acid, serum or plasm a creatinine, urine, random 48.7 Not Available [facility] [address] [facility] [address], [address], [place], [address], 11/19/2017 19:46:51 11/16/19 18 11/15/2017 uric acid, serum or plasm a HGB 15.3 Not Available [facility] [address] [facility] [address], [address], [place], [address], 11/19/2017 19:46:51 11/16/19 18 11/15/2017 uric acid, serum or plasm a HCT 44.1 Not Available [facility] [address] [facility] [address], [address], [place], [address], 11/19/2017 19:46:51 11/16/19 18 11/15/2017 uric acid, serum or plasm a WBC 6.6 Not Available [facility] [address] [facility] [address], [address], [place], [address], 11/19/2017 19:46:51 11/16/19 18 11/15/2017 uric acid, serum or plasm a plt 275 Not Available [facility] [address] [facility] [address], [address], [place], [address], 11/19/2017 19:46:51 11/16/19 18 11/15/2017 uric acid, serum or plasm a sodium, serum 137 Not Available [facility] [address] [facility] [address], [address], [place], [address], 11/19/2017 19:46:51 11/16/19 18 11/15/2017 uric acid, serum or plasm a potassium, seerum 4.0 Not Available [facility] [address] [facility] [address], [address], [place], [address], 11/19/2017 19:46:51 11/16/19 18 11/15/2017 uric acid, serum or plasm a chloride, serum 96 Not Available [facility] [address] [facility] [address], [address], [place], [address], 11/19/2017 19:46:51 11/16/19 18 11/15/2017 uric acid, serum or plasm a carbon dioxide 27 Not Available [facility] [address] [facility] [address], [address], [place], [address], 11/19/2017 19:46:51 11/16/19 18 11/15/2017 uric acid, serum or plasm a calcium, serum 9.5 Not Available [facility] [address], [address], [place], [address], 11/19/2017 19:46:51 11/16/19 18 11/15/2017 uric acid, serum or plasm a glucose, serum 92 Not Available [facility] [address] [facility] [address], [address], [place], [address], 11/19/2017 19:46:51 11/16/19 18 11/15/2017 uric acid, serum or plasm a BUN 27 Not Available [facility] [address] [facility] [address], [address], [place], [address], 11/19/2017 19:46:51 11/16/19 18 11/15/2017 uric acid, serum or plasm a creatinine 1.63 Not Available [facility] [address] [facility] [address], [address], [place], [address], 11/19/2017 19:46:51 11/16/19 18 11/15/2017 uric acid, serum or plasm a GFR 43 Not Available [facility] [address] [facility] [address], [address], [place], [address], 11/19/2017 19:46:51 11/16/19 18 11/15/2017 uric acid, serum or plasm a bilirubin, total 0.6 Not Available [facility] [address] [facility] [address], [address], [place], [address], 11/19/2017 19:46:51 11/16/19 18 11/15/2017 uric acid, serum or plasm a albumin, serum 4.5 Not Available [facility] [address] [facility] [address], [address], [place], [address], 11/19/2017 19:46:51 11/16/19 18 11/15/2017 uric acid, serum or plasm a protein, total, serum 7.5 Not Available [facility] [address] [facility] [address], [address], [place], [address], 11/19/2017 19:46:51 11/16/19 18 11/15/2017 uric acid, serum or plasm a magnesium 1.8 Not Available [facility] [address] [facility] [address], [address], [place], [address], 11/19/2017 19:46:51 11/16/19 18 11/15/2017 uric acid, serum or plasm a phosphorus 3.6 Not Available [facility] [address] [facility] [address], [address], [place], [address], 11/19/2017 19:46:51 11/16/19 18 11/15/2017 uric acid, serum or plasm a uric acid 5.6 Not Available [facility] [address] [facility] [address], [address], [place], [address], 11/19/2017 19:46:51 11/16/19 18 11/15/2017 phosp horus , blood color, urine light, yellow Not Available [facility] [address] [facility] [address], [address], [place], [address], 11/19/2017 19:46:50 11/16/19 18 11/15/2017 phosp horus , blood clarity, urine clear Not Available [facility] [address] [facility] [address], [address], [place], [address], 11/19/2017 19:46:50 11/16/19 18 11/15/2017 phosp horus , blood pH, urine 6.0 Not Available [facility] [address] [facility] [address], [address], [place], [address], 11/19/2017 19:46:50 11/16/19 18 11/15/2017 phosp horus , blood specific gravity, urine 1.010 Not Available [facility] [address] [facility] [address], [address], [place], [address], 11/19/2017 19:46:50 11/16/19 18 11/15/2017 phosp horus , blood protein, total, urine 30 Not Available [facility] [address] [facility] [address], [address], [place], [address], 11/19/2017 19:46:50 11/16/19 18 11/15/2017 phosp horus , blood glucose, urine negati ve Not Available [facility] [address] [facility] [address], [address], [place], [address], 11/19/2017 19:46:50 11/16/19 18 11/15/2017 phosp horus , blood ketones, urine negati ve Not Available [facility] [address], [address], [place], [address], 11/19/2017 19:46:50 11/16/19 18 11/15/2017 phosp horus , blood bilirubin, urine negati ve Not Available [facility] [address], [address], [place], [address], 11/19/2017 19:46:50 11/16/19 18 11/15/2017 phosp horus , blood blood, urine negati ve Not Available [facility] [address] [facility] [address], [address], [place], [address], 11/19/2017 19:46:50 11/16/19 18 11/15/2017 phosp horus , blood nitrite, urine negati ve Not Available [facility] [address] [facility] [address], [address], [place], [address], 11/19/2017 19:46:50 11/16/19 18 11/15/2017 phosp horus , blood leukocyte esterase, urine negati ve Not Available [facility] [address] [facility] [address], [address], [place], [address], 11/19/2017 19:46:50 11/16/19 18 11/15/2017 phosp horus , blood urobilinogen , urine <2.0 Not Available [facility] [address] [facility] [address], [place], [address], 11/19/2017 19:46:50 11/16/19 18 11/15/2017 phosp horus , blood WBC casts, urine <1 Not Available [facility] [address] [facility] [address], [address], [place], [address], 11/19/2017 19:46:50 11/16/19 18 11/15/2017 phosp horus , blood red blood cells, urine 0 Not Available [facility] [address] [facility] [address], [address], [place], [address], 11/19/2017 19:46:50 11/16/19 18 11/15/2017 phosp horus , blood epithelial cells, urine <1 Not Available [facility] [address] [facility] [address], [address], [place], [address], 11/19/2017 19:46:50 11/16/19 18 11/15/2017 phosp horus , blood protein, urine, random 10.1 Not Available [facility] [address], [address], [place], [address], 11/19/2017 19:46:50 11/16/19 18 11/15/2017 phosp horus , blood creatinine, urine, random 48.7 Not Available [facility] [address], [place], [address], 11/19/2017 19:46:50 11/16/19 18 11/15/2017 phosp horus , blood HGB 15.3 Not Available [facility] [address], [place], [address], 11/19/2017 19:46:50 11/16/19 18 11/15/2017 phosp horus , blood HCT 44.1 Not Available [facility] [address], [address], [place], [address], 11/19/2017 19:46:50 11/16/19 18 11/15/2017 phosp horus , blood WBC 6.6 Not Available [facility] [address], [address], [place], [address], 11/19/2017 19:46:50 11/16/19 18 11/15/2017 phosp horus , blood plt 275 Not Available [facility] [address], [place], [address], 11/19/2017 19:46:50 11/16/19 18 11/15/2017 phosp horus , blood sodium, serum 137 Not Available [facility] [address], [address], [place], [address], 11/19/2017 19:46:50 11/16/19 18 11/15/2017 phosp horus , blood potassium, seerum 4.0 Not Available [facility] [address] [facility] [address], [address], [place], [address], 11/19/2017 19:46:50 11/16/19 18 11/15/2017 phosp horus , blood chloride, serum 96 Not Available [facility] [address], [address], [place], [address], 11/19/2017 19:46:50 11/16/19 18 11/15/2017 phosp horus , blood carbon dioxide 27 Not Available [facility] [address], [address], [place], [address], 11/19/2017 19:46:50 11/16/19 18 11/15/2017 phosp horus , blood calcium, serum 9.5 Not Available [facility] [address], [address], [place], [address], 11/19/2017 19:46:50 11/16/19 18 11/15/2017 phosp horus , blood glucose, serum 92 Not Available [facility] [address], [address], [place], [address], 11/19/2017 19:46:50 11/16/19 18 11/15/2017 phosp horus , blood BUN 27 Not Available [facility] [address], [address], [place], [address], 11/19/2017 19:46:50 11/16/19 18 11/15/2017 phosp horus , blood creatinine 1.63 Not Available [facility] [address], [address], [place], [address], 11/19/2017 19:46:50 11/16/19 18 11/15/2017 phosp horus , blood GFR 43 Not Available [facility] [address], [address], [place], [address], 11/19/2017 19:46:50 11/16/19 18 11/15/2017 phosp horus , blood bilirubin, total 0.6 Not Available [facility] [address] [facility] [address], [address], [place], [address], 11/19/2017 19:46:50 11/16/19 18 11/15/2017 phosp horus , blood albumin, serum 4.5 Not Available [facility] [address] [facility] [address], [place], [address], 11/19/2017 19:46:50 11/16/19 18 11/15/2017 phosp horus , blood protein, total, serum 7.5 Not Available [facility] [address] [facility] [address], [address], [place], [address], 11/19/2017 19:46:50 11/16/19 18 11/15/2017 phosp horus , blood magnesium 1.8 Not Available [facility] [address] [facility] [address], [address], [place], [address], 11/19/2017 19:46:50 11/16/19 18 11/15/2017 phosp horus , blood phosphorus 3.6 Not Available [facility] [address], [place], [address], 11/19/2017 19:46:50 11/16/19 18 11/15/2017 phosp horus , blood uric acid 5.6 Not Available [facility] [address], [place], [address], 11/19/2017 19:46:50 11/16/19 18 11/15/2017 magne sium, blood color, urine light, yellow Not Available [facility] [address], [place], [address], 11/19/2017 19:46:50 11/16/19 18 11/15/2017 magne sium, blood clarity, urine clear Not Available [facility] [address] [facility] [address], [address], [place], [address], 11/19/2017 19:46:50 11/16/19 18 11/15/2017 magne sium, blood pH, urine 6.0 Not Available [facility] [address], [place], [address], 11/19/2017 19:46:50 11/16/19 18 11/15/2017 magne sium, blood specific gravity, urine 1.010 Not Available [facility] [address] [facility] [address], [address], [place], [address], 11/19/2017 19:46:50 11/16/19 18 11/15/2017 magne sium, blood protein, total, urine 30 Not Available [facility] [address], [place], [address], 11/19/2017 19:46:50 11/16/19 18 11/15/2017 magne sium, blood glucose, urine negati ve Not Available [facility] [address], [place], [address], 11/19/2017 19:46:50 11/16/19 18 11/15/2017 magne sium, blood ketones, urine negati ve Not Available [facility] [address], [place], [address], 11/19/2017 19:46:50 11/16/19 18 11/15/2017 magne sium, blood bilirubin, urine negati ve Not Available [facility] [address], [place], [address], 11/19/2017 19:46:50 11/16/19 18 11/15/2017 magne sium, blood blood, urine negati ve Not Available [facility] [address] [facility] [address], [address], [place], [address], 11/19/2017 19:46:50 11/16/19 18 11/15/2017 magne sium, blood nitrite, urine negati ve Not Available [facility] [address], [place], [address], 11/19/2017 19:46:50 11/16/19 18 11/15/2017 magne sium, blood leukocyte esterase, urine negati ve Not Available [facility] [address], [address], [place], [address], 11/19/2017 19:46:50 11/16/19 18 11/15/2017 magne sium, blood urobilinogen , urine <2.0 Not Available [facility] [address], [place], [address], 11/19/2017 19:46:50 11/16/19 18 11/15/2017 magne sium, blood WBC casts, urine <1 Not Available [facility] [address], [address], [place], [address], 11/19/2017 19:46:50 11/16/19 18 11/15/2017 magne sium, blood red blood cells, urine 0 Not Available [facility] [address], [place], [address], 11/19/2017 19:46:50 11/16/19 18 11/15/2017 magne sium, blood epithelial cells, urine <1 Not Available [facility] [address], [place], [address], 11/19/2017 19:46:50 11/16/19 18 11/15/2017 magne sium, blood protein, urine, random 10.1 Not Available [facility] [address] [facility] [address], [address], [place], [address], 11/19/2017 19:46:50 11/16/19 18 11/15/2017 magne sium, blood creatinine, urine, random 48.7 Not Available [facility] [address] [facility] [address], [address], [place], [address], 11/19/2017 19:46:50 11/16/19 18 11/15/2017 magne sium, blood HGB 15.3 Not Available [facility] [address] [facility] [address], [address], [place], [address], 11/19/2017 19:46:50 11/16/19 18 11/15/2017 magne sium, blood HCT 44.1 Not Available [facility] [address] [facility] [address], [address], [place], [address], 11/19/2017 19:46:50 11/16/19 18 11/15/2017 magne sium, blood WBC 6.6 Not Available [facility] [address] [facility] [address], [address], [place], [address], 11/19/2017 19:46:50 11/16/19 18 11/15/2017 magne sium, blood plt 275 Not Available [facility] [address] [facility] [address], [address], [place], [address], 11/19/2017 19:46:50 11/16/19 18 11/15/2017 magne sium, blood sodium, serum 137 Not Available [facility] [address] [facility] [address], [address], [place], [address], 11/19/2017 19:46:50 11/16/19 18 11/15/2017 magne sium, blood potassium, seerum 4.0 Not Available [facility] [address] [facility] [address], [address], [place], [address], 11/19/2017 19:46:50 11/16/19 18 11/15/2017 magne sium, blood chloride, serum 96 Not Available [facility] [address] [facility] [address], [address], [place], [address], 11/19/2017 19:46:50 11/16/19 18 11/15/2017 magne sium, blood carbon dioxide 27 Not Available [facility] [address] [facility] [address], [address], [place], [address], 11/19/2017 19:46:50 11/16/19 18 11/15/2017 magne sium, blood calcium, serum 9.5 Not Available [facility] [address] [facility] [address], [address], [place], [address], 11/19/2017 19:46:50 11/16/19 18 11/15/2017 magne sium, blood glucose, serum 92 Not Available [facility] [address] [facility] [address], [address], [place], [address], 11/19/2017 19:46:50 11/16/19 18 11/15/2017 magne sium, blood BUN 27 Not Available [facility] [address] [facility] [address], [address], [place], [address], 11/19/2017 19:46:50 11/16/19 18 11/15/2017 magne sium, blood creatinine 1.63 Not Available [facility] [address] [facility] [address], [address], [place], [address], 11/19/2017 19:46:50 11/16/19 18 11/15/2017 magne sium, blood GFR 43 Not Available [facility] [address], [place], [address], 11/19/2017 19:46:50 11/16/19 18 11/15/2017 magne sium, blood bilirubin, total 0.6 Not Available [facility] [address], [place], [address], 11/19/2017 19:46:50 11/16/19 18 11/15/2017 magne sium, blood albumin, serum 4.5 Not Available [facility] [address], [place], [address], 11/19/2017 19:46:50 11/16/19 18 11/15/2017 magne sium, blood protein, total, serum 7.5 Not Available [facility] [address], [place], [address], 11/19/2017 19:46:50 11/16/19 18 11/15/2017 magne sium, blood magnesium 1.8 Not Available [facility] [address], [place], [address], 11/19/2017 19:46:50 11/16/19 18 11/15/2017 magne sium, blood phosphorus 3.6 Not Available [facility] [address], [place], [address], 11/19/2017 19:46:50 11/16/19 18 11/15/2017 magne sium, blood uric acid 5.6 Not Available [facility] [address], [place], [address], 11/19/2017 19:46:50 11/16/19 18 11/15/2017 CMP, serum or plasm a color, urine light, yellow Not Available [address], [place], [address], 11/19/2017 19:46:50 11/16/19 18 11/15/2017 CMP, serum or plasm a clarity, urine clear Not Available [address], [place], [address], 11/19/2017 19:46:50 11/16/19 18 11/15/2017 CMP, serum or plasm a pH, urine 6.0 Not Available [address], [place], [address], 11/19/2017 19:46:50 11/16/19 18 11/15/2017 CMP, serum or plasm a specific gravity, urine 1.010 Not Available [address], [place], [address], 11/19/2017 19:46:50 11/16/19 18 11/15/2017 CMP, serum or plasm a protein, total, urine 30 Not Available [address], [place], [address], 11/19/2017 19:46:50 11/16/19 18 11/15/2017 CMP, serum or plasm a glucose, urine negati ve Not Available [facility] [address], [place], [address], 11/19/2017 19:46:50 11/16/19 18 11/15/2017 CMP, serum or plasm a ketones, urine negati ve Not Available [facility] [address], [place], [address], 11/19/2017 19:46:50 11/16/19 18 11/15/2017 CMP, serum or plasm a bilirubin, urine negati ve Not Available [facility] [address], [place], [address], 11/19/2017 19:46:50 11/16/19 18 11/15/2017 CMP, serum or plasm a blood, urine negati ve Not Available [facility] [address], [place], [address], 11/19/2017 19:46:50 11/16/19 18 11/15/2017 CMP, serum or plasm a nitrite, urine negati ve Not Available [facility] [address] [place], [place] [address], [address], [place], [address], 11/19/2017 19:46:50 11/16/19 18 11/15/2017 CMP, serum or plasm a leukocyte esterase, urine negati ve Not Available [address], [address], [place], [address], 11/19/2017 19:46:50 11/16/19 18 11/15/2017 CMP, serum or plasm a urobilinogen , urine <2.0 Not Available [address], [address], [place], [address], 11/19/2017 19:46:50 11/16/19 18 11/15/2017 CMP, serum or plasm a WBC casts, urine <1 Not Available [address], [address], [place], [address], 11/19/2017 19:46:50 11/16/19 18 11/15/2017 CMP, serum or plasm a red blood cells, urine 0 Not Available [facility] [address], [place], [address], 11/19/2017 19:46:50 11/16/19 18 11/15/2017 CMP, serum or plasm a epithelial cells, urine <1 Not Available [facility] [address] [facility] [address], [address], [place], [address], 11/19/2017 19:46:50 11/16/19 18 11/15/2017 CMP, serum or plasm a protein, urine, random 10.1 Not Available [facility] [address] [facility] [address], [address], [place], [address], 11/19/2017 19:46:50 11/16/19 18 11/15/2017 CMP, serum or plasm a creatinine, urine, random 48.7 Not Available [facility] [address] [facility] [address], [address], [place], [address], 11/19/2017 19:46:50 11/16/19 18 11/15/2017 CMP, serum or plasm a HGB 15.3 Not Available [address], [address], [place], [address], 11/19/2017 19:46:50 11/16/19 18 11/15/2017 CMP, serum or plasm a HCT 44.1 Not Available [facility] [address] [facility] [address], [address], [place], [address], 11/19/2017 19:46:50 11/16/19 18 11/15/2017 CMP, serum or plasm a WBC 6.6 Not Available [facility] [address], [address], [place], [address], 11/19/2017 19:46:50 11/16/19 18 11/15/2017 CMP, serum or plasm a plt 275 Not Available [facility] [address] [facility] [address], [address], [place], [address], 11/19/2017 19:46:50 11/16/19 18 11/15/2017 CMP, serum or plasm a sodium, serum 137 Not Available [address], [place], [address], 11/19/2017 19:46:50 11/16/19 18 11/15/2017 CMP, serum or plasm a potassium, seerum 4.0 Not Available [facility] [address] [facility] [address], [address], [place], [address], 11/19/2017 19:46:50 11/16/19 18 11/15/2017 CMP, serum or plasm a chloride, serum 96 Not Available [facility] [address] [facility] [address], [address], [place], [address], 11/19/2017 19:46:50 11/16/19 18 11/15/2017 CMP, serum or plasm a carbon dioxide 27 Not Available [facility] [address] [facility] [address], [address], [place], [address], 11/19/2017 19:46:50 11/16/19 18 11/15/2017 CMP, serum or plasm a calcium, serum 9.5 Not Available [facility] [address], [address], [place], [address], 11/19/2017 19:46:50 11/16/19 18 11/15/2017 CMP, serum or plasm a glucose, serum 92 Not Available [facility] [address] [facility] [address], [address], [place], [address], 11/19/2017 19:46:50 11/16/19 18 11/15/2017 CMP, serum or plasm a BUN 27 Not Available [facility] [address], [address], [place], [address], 11/19/2017 19:46:50 11/16/19 18 11/15/2017 CMP, serum or plasm a creatinine 1.63 Not Available [facility] [address] [facility] [address], [address], [place], [address], 11/19/2017 19:46:50 11/16/19 18 11/15/2017 CMP, serum or plasm a GFR 43 Not Available [facility] [address] [facility] [address], [address], [place], [address], 11/19/2017 19:46:50 11/16/19 18 11/15/2017 CMP, serum or plasm a bilirubin, total 0.6 Not Available [facility] [address], [place], [address], 11/19/2017 19:46:50 11/16/19 18 11/15/2017 CMP, serum or plasm a albumin, serum 4.5 Not Available [facility] [address], [place], [address], 11/19/2017 19:46:50 11/16/19 18 11/15/2017 CMP, serum or plasm a protein, total, serum 7.5 Not Available [facility] [address], [place], [address], 11/19/2017 19:46:50 11/16/19 18 11/15/2017 CMP, serum or plasm a magnesium 1.8 Not Available [facility] [address], [place], [address], 11/19/2017 19:46:50 11/16/19 18 11/15/2017 CMP, serum or plasm a phosphorus 3.6 Not Available [facility] [address], [place], [address], 11/19/2017 19:46:50 11/16/19 18 11/15/2017 CMP, serum or plasm a uric acid 5.6 Not Available [facility] [address], [place], [address], 11/19/2017 19:46:50 11/16/19 18 11/15/2017 CBC w/ auto diff color, urine light, yellow Not Available [facility] [address] [facility] [address], [address], [place], [address], 11/19/2017 19:46:50 11/16/19 18 11/15/2017 CBC w/ auto diff clarity, urine clear Not Available [facility] [address] [facility] [address], [address], [place], [address], 11/19/2017 19:46:50 11/16/19 18 11/15/2017 CBC w/ auto diff pH, urine 6.0 Not Available [facility] [address], [address], [place], [address], 11/19/2017 19:46:50 11/16/19 18 11/15/2017 CBC w/ auto diff specific gravity, urine 1.010 Not Available [facility] [address] [facility] [address], [address], [place], [address], 11/19/2017 19:46:50 11/16/19 18 11/15/2017 CBC w/ auto diff protein, total, urine 30 Not Available [facility] [address] [facility] [address], [address], [place], [address], 11/19/2017 19:46:50 11/16/19 18 11/15/2017 CBC w/ auto diff glucose, urine negati ve Not Available [facility] [address] [facility] [address], [address], [place], [address], 11/19/2017 19:46:50 11/16/19 18 11/15/2017 CBC w/ auto diff ketones, urine negati ve Not Available [facility] [address] [facility] [address], [address], [place], [address], 11/19/2017 19:46:50 11/16/19 18 11/15/2017 CBC w/ auto diff bilirubin, urine negati ve Not Available [facility] [address] [facility] [address], [address], [place], [address], 11/19/2017 19:46:50 11/16/19 18 11/15/2017 CBC w/ auto diff blood, urine negati ve Not Available [facility] [address] [facility] [address], [address], [place], [address], 11/19/2017 19:46:50 11/16/19 18 11/15/2017 CBC w/ auto diff nitrite, urine negati ve Not Available [facility] [address], [place], [address], 11/19/2017 19:46:50 11/16/19 18 11/15/2017 CBC w/ auto diff leukocyte esterase, urine negati ve Not Available [facility] [address], [place], [address], 11/19/2017 19:46:50 11/16/19 18 11/15/2017 CBC w/ auto diff urobilinogen , urine <2.0 Not Available [facility] [address], [place], [address], 11/19/2017 19:46:50 11/16/19 18 11/15/2017 CBC w/ auto diff WBC casts, urine <1 Not Available [facility] [address] [facility] [address], [place], [address], 11/19/2017 19:46:50 11/16/19 18 11/15/2017 CBC w/ auto diff red blood cells, urine 0 Not Available [facility] [address] [facility] [address], [place], [address], 11/19/2017 19:46:50 11/16/19 18 11/15/2017 CBC w/ auto diff epithelial cells, urine <1 Not Available [facility] [address] [facility] [address], [address], [place], [address], 11/19/2017 19:46:50 11/16/19 18 11/15/2017 CBC w/ auto diff protein, urine, random 10.1 Not Available [facility] [address] [facility] [address], [address], [place], [address], 11/19/2017 19:46:50 11/16/19 18 11/15/2017 CBC w/ auto diff creatinine, urine, random 48.7 Not Available [facility] [address] [facility] [address], [place], [address], 11/19/2017 19:46:50 11/16/19 18 11/15/2017 CBC w/ auto diff HGB 15.3 Not Available [facility] [address] [facility] [address], [place], [address], 11/19/2017 19:46:50 11/16/19 18 11/15/2017 CBC w/ auto diff HCT 44.1 Not Available [facility] [address] [facility] [address], [place], [address], 11/19/2017 19:46:50 11/16/19 18 11/15/2017 CBC w/ auto diff WBC 6.6 Not Available [facility] [address] [facility] [address], [place], [address], 11/19/2017 19:46:50 11/16/19 18 11/15/2017 CBC w/ auto diff plt 275 Not Available [facility] [address] [facility] [address], [place], [address], 11/19/2017 19:46:50 11/16/19 18 11/15/2017 CBC w/ auto diff sodium, serum 137 Not Available [facility] [address] [facility] [address], [place], [address], 11/19/2017 19:46:50 11/16/19 18 11/15/2017 CBC w/ auto diff potassium, seerum 4.0 Not Available [facility] [address], [place], [address], 11/19/2017 19:46:50 11/16/19 18 11/15/2017 CBC w/ auto diff chloride, serum 96 Not Available [facility] [address], [place], [address], 11/19/2017 19:46:50 11/16/19 18 11/15/2017 CBC w/ auto diff carbon dioxide 27 Not Available [facility] [address], [address], [place], [address], 11/19/2017 19:46:50 11/16/19 18 11/15/2017 CBC w/ auto diff calcium, serum 9.5 Not Available [facility] [address], [address], [place], [address], 11/19/2017 19:46:50 11/16/19 18 11/15/2017 CBC w/ auto diff glucose, serum 92 Not Available [facility] [address], [address], [place], [address], 11/19/2017 19:46:50 11/16/19 18 11/15/2017 CBC w/ auto diff BUN 27 Not Available [facility] [address], [address], [place], [address], 11/19/2017 19:46:50 11/16/19 18 11/15/2017 CBC w/ auto diff creatinine 1.63 Not Available [facility] [address], [address], [place], [address], 11/19/2017 19:46:50 11/16/19 18 11/15/2017 CBC w/ auto diff GFR 43 Not Available [facility] [address] [facility] [address], [address], [place], [address], 11/19/2017 19:46:50 11/16/19 18 11/15/2017 CBC w/ auto diff bilirubin, total 0.6 Not Available [facility] [address] [facility] [address], [address], [place], [address], 11/19/2017 19:46:50 11/16/19 18 11/15/2017 CBC w/ auto diff albumin, serum 4.5 Not Available [facility] [address] [facility] [address], [address], [place], [address], 11/19/2017 19:46:50 11/16/19 18 11/15/2017 CBC w/ auto diff protein, total, serum 7.5 Not Available [facility] [address] [facility] [address], [address], [place], [address], 11/19/2017 19:46:50 11/16/19 18 11/15/2017 CBC w/ auto diff magnesium 1.8 Not Available [facility] [address] [facility] [address], [address], [place], [address], 11/19/2017 19:46:50 11/16/19 18 11/15/2017 CBC w/ auto diff phosphorus 3.6 Not Available [facility] [address] [facility] [address], [address], [place], [address], 11/19/2017 19:46:50 11/16/19 18 11/15/2017 CBC w/ auto diff uric acid 5.6 Not Available [facility] [address] [facility] [address], [address], [place], [address], 11/19/2017 19:46:50 11/16/19 18 11/15/2017 prote in:cr eatin ine ratio , urine color, urine light, yellow Not Available [facility] [address] [place], [place] [address]za [address], [address], [place], [address], 11/19/2017 19:46:50 11/16/19 18 11/15/2017 prote in:cr eatin ine ratio , urine clarity, urine clear Not Available [facility] [address] [facility] [address], [address], [place], [address], 11/19/2017 19:46:50 11/16/19 18 11/15/2017 prote in:cr eatin ine ratio , urine pH, urine 6.0 Not Available [facility] [address] [facility] [address], [place], [address], 11/19/2017 19:46:50 11/16/19 18 11/15/2017 prote in:cr eatin ine ratio , urine specific gravity, urine 1.010 Not Available [facility] [address] [place], [place] [address]y [address], [address], [place], [address], 11/19/2017 19:46:50 11/16/19 18 11/15/2017 prote in:cr eatin ine ratio , urine protein, total, urine 30 Not Available [facility] [address] [facility] [address], [place], [address], 11/19/2017 19:46:50 11/16/19 18 11/15/2017 prote in:cr eatin ine ratio , urine glucose, urine negati ve Not Available [facility] [address] [place], [place] [address], [address], [place], [address], 11/19/2017 19:46:50 11/16/19 18 11/15/2017 prote in:cr eatin ine ratio , urine ketones, urine negati ve Not Available [facility] [address] [place], [place] [address], [address], [place], [address], 11/19/2017 19:46:50 11/16/19 18 11/15/2017 prote in:cr eatin ine ratio , urine bilirubin, urine negati ve Not Available [facility] [address], [place], [address], 11/19/2017 19:46:50 11/16/19 18 11/15/2017 prote in:cr eatin ine ratio , urine blood, urine negati ve Not Available [facility] [address] [address], [place], [address], 11/19/2017 19:46:50 11/16/19 18 11/15/2017 prote in:cr eatin ine ratio , urine nitrite, urine negati ve Not Available [facility] [address] [facility] [address] [facility] [address], [place], [address], 11/19/2017 19:46:50 11/16/19 18 11/15/2017 prote in:cr eatin ine ratio , urine leukocyte esterase, urine negati ve Not Available [facility] [address] [facility] [address], [address], [place], [address], 11/19/2017 19:46:50 11/16/19 18 11/15/2017 prote in:cr eatin ine ratio , urine urobilinogen , urine <2.0 Not Available [facility] [address] [facility] [address], [address], [place], [address], 11/19/2017 19:46:50 11/16/19 18 11/15/2017 prote in:cr eatin ine ratio , urine WBC casts, urine <1 Not Available [facility] [address], [place], [address], 11/19/2017 19:46:50 11/16/19 18 11/15/2017 prote in:cr eatin ine ratio , urine red blood cells, urine 0 Not Available [facility] [address] [facility] [address], [address], [place], [address], 11/19/2017 19:46:50 11/16/19 18 11/15/2017 prote in:cr eatin ine ratio , urine epithelial cells, urine <1 Not Available [facility] [address] [facility] [address], [address], [place], [address], 11/19/2017 19:46:50 11/16/19 18 11/15/2017 prote in:cr eatin ine ratio , urine protein, urine, random 10.1 Not Available [facility] [address] [facility] [address], [address], [place], [address], 11/19/2017 19:46:50 11/16/19 18 11/15/2017 prote in:cr eatin ine ratio , urine creatinine, urine, random 48.7 Not Available [facility] [address] [facility] [address], [address], [place], [address], 11/19/2017 19:46:50 11/16/19 18 11/15/2017 prote in:cr eatin ine ratio , urine HGB 15.3 Not Available [facility] [address] [facility] [address], [address], [place], [address], 11/19/2017 19:46:50 11/16/19 18 11/15/2017 prote in:cr eatin ine ratio , urine HCT 44.1 Not Available [facility] [address] [facility] [address], [address], [place], [address], 11/19/2017 19:46:50 11/16/19 18 11/15/2017 prote in:cr eatin ine ratio , urine WBC 6.6 Not Available [facility] [address] [facility] [address], [address], [place], [address], 11/19/2017 19:46:50 11/16/19 18 11/15/2017 prote in:cr eatin ine ratio , urine plt 275 Not Available [facility] [address], [address], [place], [address], 11/19/2017 19:46:50 11/16/19 18 11/15/2017 prote in:cr eatin ine ratio , urine sodium, serum 137 Not Available [facility] [address] [facility] [address], [address], [place], [address], 11/19/2017 19:46:50 11/16/19 18 11/15/2017 prote in:cr eatin ine ratio , urine potassium, seerum 4.0 Not Available [facility] [address] [facility] [address], [address], [place], [address], 11/19/2017 19:46:50 11/16/19 18 11/15/2017 prote in:cr eatin ine ratio , urine chloride, serum 96 Not Available [facility] [address], [address], [place], [address], 11/19/2017 19:46:50 11/16/19 18 11/15/2017 prote in:cr eatin ine ratio , urine carbon dioxide 27 Not Available [facility] [address], [address], [place], [address], 11/19/2017 19:46:50 11/16/19 18 11/15/2017 prote in:cr eatin ine ratio , urine calcium, serum 9.5 Not Available [facility] [address] [facility] [address], [address], [place], [address], 11/19/2017 19:46:50 11/16/19 18 11/15/2017 prote in:cr eatin ine ratio , urine glucose, serum 92 Not Available [facility] [address] [facility] [address], [address], [place], [address], 11/19/2017 19:46:50 11/16/19 18 11/15/2017 prote in:cr eatin ine ratio , urine BUN 27 Not Available [facility] [address] [place] [address] [address], [address], [place], [address], 11/19/2017 19:46:50 11/16/19 18 11/15/2017 prote in:cr eatin ine ratio , urine creatinine 1.63 Not Available [facility] [address] [facility] [address], [address], [place], [address], 11/19/2017 19:46:50 11/16/19 18 11/15/2017 prote in:cr eatin ine ratio , urine GFR 43 Not Available [facility] [address] [place] [address] [address], [address], [place], [address], 11/19/2017 19:46:50 11/16/19 18 11/15/2017 prote in:cr eatin ine ratio , urine bilirubin, total 0.6 Not Available [facility] [address] [facility] [address], [address], [place], [address], 11/19/2017 19:46:50 11/16/19 18 11/15/2017 prote in:cr eatin ine ratio , urine albumin, serum 4.5 Not Available [facility] [address] [facility] [address], [address], [place], [address], 11/19/2017 19:46:50 11/16/19 18 11/15/2017 prote in:cr eatin ine ratio , urine protein, total, serum 7.5 Not Available [facility] [address] [facility] [address], [address], [place], [address], 11/19/2017 19:46:50 11/16/19 18 11/15/2017 prote in:cr eatin ine ratio , urine magnesium 1.8 Not Available [facility] [address], [place], [address], 11/19/2017 19:46:50 11/16/19 18 11/15/2017 prote in:cr eatin ine ratio , urine phosphorus 3.6 Not Available [facility] [address], [place], [address], 11/19/2017 19:46:50 11/16/19 18 11/15/2017 prote in:cr eatin ine ratio , urine uric acid 5.6 Not Available [facility] [address], [place], [address], 11/19/2017 19:46:50 05/07/20 18 05/07/2018 lipid panel [...] , urine glucose 96 normal Not Available [facility] [address] [facility] [address], [place], [address], 09/17/2018 17:00:34 08/29/20 18 08/29/2018 prote in:cr eatin ine ratio , urine BUN 25 high Not Available [facility] [address] [facility] [address], [address], [place], [address], 09/17/2018 17:00:34 08/29/20 18 08/29/2018 prote in:cr eatin ine ratio , urine creatinine 1.51 high Not Available [facility] [address] [facility] [address], [address], [place], [address], 09/17/2018 17:00:34 08/29/20 18 08/29/2018 prote in:cr eatin ine ratio , urine sodium, serum 139 normal Not Available [facility] [address] [place] [address] [address], [address], [place], [address], 09/17/2018 17:00:34 08/29/20 18 08/29/2018 prote in:cr eatin ine ratio , urine potassium, serum 3.9 normal Not Available [facility] [address] [facility] [address], [address], [place], [address], 09/17/2018 17:00:34 08/29/20 18 08/29/2018 prote in:cr eatin ine ratio , urine chloride, serum 102 normal Not Available [facility] [address] [place] [address] [address], [address], [place], [address], 09/17/2018 17:00:34 08/29/20 18 08/29/2018 prote in:cr eatin ine ratio , urine carbon dioxide 28 normal Not Available [facility] [address] [facility] [address], [address], [place], [address], 09/17/2018 17:00:34 08/29/20 18 08/29/2018 prote in:cr eatin ine ratio , urine album, serum 4.3 normal Not Available [facility] [address] [place] [address] [address], [address], [place], [address], 09/17/2018 17:00:34 08/29/20 18 08/29/2018 prote in:cr eatin ine ratio , urine calcium, serum 9.2 normal Not Available [facility] [address] [place], [place] [address], [address], [place], [address], 09/17/2018 17:00:34 08/29/20 18 08/29/2018 prote in:cr eatin ine ratio , urine alkaline phosphatase 44 normal Not Available [facility] [address] [facility] [address], [address], [place], [address], 09/17/2018 17:00:34 08/29/20 18 08/29/2018 prote in:cr eatin ine ratio , urine bilirubin, total 0.4 normal Not Available [facility] [address] [place], [place] [address], [address], [place], [address], 09/17/2018 17:00:34 08/29/20 18 08/29/2018 prote in:cr eatin ine ratio , urine protein, total, serum 70 normal Not Available [facility] [address] [place], [place] [address]za [address], [address], [place], [address], 09/17/2018 17:00:34 08/29/20 18 08/29/2018 prote in:cr eatin ine ratio , urine eGFR 47 low Not Available [facility] [address] [address], [place], [address], 09/17/2018 17:00:34 08/29/20 18 08/29/2018 prote in:cr eatin ine ratio , urine creatinine, urine 23.0 normal Not Available [facility] [address] [place], [place] [address], [address], [place], [address], 09/17/2018 17:00:34 08/29/20 18 08/29/2018 prote in:cr eatin ine ratio , urine protein, total, urine, random 9.8 normal Not Available [facility] [address] [facility] [address], [address], [place], [address], 09/17/2018 17:00:34 08/29/20 18 08/29/2018 urina lysis compl ete, refle x cultu re WBC count 6.3 normal Not Available [facility] [address] [facility] [address], [address], [place], [address], 09/17/2018 16:56:21 08/29/20 18 08/29/2018 urina lysis compl ete, refle x cultu re HGB 15 normal Not Available [facility] [address] [facility] [address], [address], [place], [address], 09/17/2018 16:56:21 08/29/20 18 08/29/2018 urina lysis compl ete, refle x cultu re HCT 44.2 normal Not Available [facility] [address], [address], [place], [address], 09/17/2018 16:56:21 08/29/20 18 08/29/2018 urina lysis compl ete, refle x cultu re platelet count 254 normal Not Available [facility] [address], [address], [place], [address], 09/17/2018 16:56:21 08/29/20 18 08/29/2018 CMP, serum or plasm a glucose 96 normal Not Available [facility] [address], [address], [place], [address], 08/29/2018 18:28:02 08/29/20 18 08/29/2018 CMP, serum or plasm a BUN 25 high Not Available [facility] [address], [address], [place], [address], 08/29/2018 18:28:02 08/29/20 18 08/29/2018 CMP, serum or plasm a creatinine 1.51 high Not Available [facility] [address] [facility] [address], [address], [place], [address], 08/29/2018 18:28:02 08/29/20 18 08/29/2018 CMP, serum or plasm a sodium, serum 139 normal Not Available [facility] [address] [facility] [address], [address], [place], [address], 08/29/2018 18:28:02 08/29/20 18 08/29/2018 CMP, serum or plasm a potassium, serum 3.9 normal Not Available [facility] [address] [facility] [address], [address], [place], [address], 08/29/2018 18:28:02 08/29/20 18 08/29/2018 CMP, serum or plasm a chloride, serum 102 normal Not Available [facility] [address], [address], [place], [address], 08/29/2018 18:28:02 08/29/20 18 08/29/2018 CMP, serum or plasm a carbon dioxide 28 normal Not Available [facility] [address], [address], [place], [address], 08/29/2018 18:28:02 08/29/20 18 08/29/2018 CMP, serum or plasm a album, serum 4.3 normal Not Available [facility] [address], [address], [place], [address], 08/29/2018 18:28:02 08/29/20 18 08/29/2018 CMP, serum or plasm a calcium, serum 9.2 normal Not Available [facility] [address] [facility] [address], [place], [address], 08/29/2018 18:28:02 08/29/20 18 08/29/2018 CMP, serum or plasm a alkaline phosphatase 44 normal Not Available [facility] [address], [address], [place], [address], 08/29/2018 18:28:02 08/29/20 18 08/29/2018 CMP, serum or plasm a bilirubin, total 0.4 normal Not Available [address], [address], [place], [address], 08/29/2018 18:28:02 08/29/20 18 08/29/2018 CMP, serum or plasm a protein, total, serum 70 normal Not Available [address], [address], [place], [address], 08/29/2018 18:28:02 08/29/20 18 08/29/2018 CMP, serum or plasm a eGFR 47 low Not Available [facility] [address] [place] [address] [address], [address], [place], [address], 08/29/2018 18:28:02 08/29/20 18 08/29/2018 CMP, serum or plasm a creatinine, urine 23.0 normal Not Available [address], [place], [address], 08/29/2018 18:28:02 08/29/20 18 08/29/2018 CMP, serum or plasm a protein, total, urine, random 9.8 normal Not Available [facility] [address], [address], [place], [address], 08/29/2018 18:28:02 08/29/20 18 08/29/2018 CBC w/ auto diff WBC count 6.3 normal Not Available [address], [place], [address], 08/29/2018 15:25:44 08/29/20 18 08/29/2018 CBC w/ auto diff HGB 15 normal Not Available [facility] [address] [facility] [address], [place], [address], 08/29/2018 15:25:44 08/29/20 18 08/29/2018 CBC w/ auto diff HCT 44.2 normal Not Available [facility] [address] [facility] [address], [place], [address], 08/29/2018 15:25:44 08/29/20 18 08/29/2018 CBC w/ auto diff platelet count 254 normal Not Available [facility] [address] [facility] [address], [place], [address], 08/29/2018 15:25:44 02/11/20 19 02/10/2019 lipid panel [...] , serum glucose 96 normal Not Available [facility] [address], [address], [place], [address], 03/04/2019 18:56:10 03/03/20 19 03/03/2019 renal funct ion panel , serum BUN 26 high Not Available [facility] [address], [place], [address], 03/04/2019 18:56:10 03/03/20 19 03/03/2019 renal funct ion panel , serum creatinine 1.61 normal Not Available [facility] [address], [address], [place], [address], 03/04/2019 18:56:10 03/03/20 19 03/03/2019 renal funct ion panel , serum sodium, serum 139 normal Not Available [facility] [address], [place], [address], 03/04/2019 18:56:10 03/03/20 19 03/03/2019 renal funct ion panel , serum potassium, serum 3.8 normal Not Available [facility] [address], [address], [place], [address], 03/04/2019 18:56:10 03/03/20 19 03/03/2019 renal funct ion panel , serum chloride, serum 104 normal Not Available [facility] [address], [address], [place], [address], 03/04/2019 18:56:10 03/03/20 19 03/03/2019 renal funct ion panel , serum carbon dioxide 24 normal Not Available [facility] [address], [place], [address], 03/04/2019 18:56:10 03/03/20 19 03/03/2019 renal funct ion panel , serum calcium, serum 9.1 normal normal Not Available [facility] [address], [place], [address], 03/04/2019 18:56:10 03/03/2003/03/2019 renal funct ion panel , serum eGFR 44 low Not Available [facility] [address], [place], [address], 03/04/2019 18:56:10 03/04/20 19 03/04/2019 prote in:cr eatin ine ratio , urine glucose 96 normal Not Available [facility] [address], [place], [address], 03/04/2019 08:17:55 03/04/20 19 03/04/2019 prote in:cr eatin ine ratio , urine BUN 26 high Not Available [facility] [address], [place], [address], 03/04/2019 08:17:55 03/04/20 19 03/04/2019 prote in:cr eatin ine ratio , urine creatinine 1.61 normal Not Available [facility] [address], [place], [address], 03/04/2019 08:17:55 03/04/20 19 03/04/2019 prote in:cr eatin ine ratio , urine sodium, serum 139 normal Not Available [facility] [address], [place], [address], 03/04/2019 08:17:55 03/04/20 19 03/04/2019 prote in:cr eatin ine ratio , urine potassium, serum 3.8 normal Not Available [facility] [address] [facility] [address], [place], [address], 03/04/2019 08:17:55 03/04/20 19 03/04/2019 prote in:cr eatin ine ratio , urine chloride, serum 104 normal Not Available [facility] [facility] [address] [facility] [address], [address], [place], [address], 03/04/2019 08:17:55 03/04/20 19 03/04/2019 prote in:cr eatin ine ratio , urine carbon dioxide 24 normal Not Available [facility] [address] [facility] [address], [address], [place], [address], 03/04/2019 08:17:55 03/04/20 19 03/04/2019 prote in:cr eatin ine ratio , urine calcium, serum 9.1 normal normal Not Available [facility] [address] [facility] [address], [address], [place], [address], 03/04/2019 08:17:55 03/04/20 19 03/04/2019 prote in:cr eatin ine ratio , urine eGFR 44 low Not Available [facility] [address] [place] [address] [address], [address], [place], [address], 03/04/2019 08:17:55 01/20/20 20 01/20/2020 CMP, serum [...] plasm a HGB 14.5 normal Not Available [employer] [facility] [address] [facility] [employer] [address], [place], [address], 11/15/2020 13:57:47 10/24/19 21 10/24/2020 CMP, serum or plasm a HCT 43.1 normal Not Available [facility] [address], [address], [place], [address], 11/15/2020 13:57:47 10/24/19 21 10/24/2020 CMP, serum or plasm a platelet count 242 normal Not Available [facility] [address], [address], [place], [address], 11/15/2020 13:57:47 10/24/19 21 10/24/2020 CMP, serum or plasm a WBC count 4.9 normal Not Available [facility] [address] [facility] [address], [address], [place], [address], 11/15/2020 13:57:47 10/24/19 21 10/24/2020 CMP, serum or plasm a glucose 103 normal Not Available [facility] [address] [facility] [address], [address], [place], [address], 11/15/2020 13:57:47 10/24/19 21 10/24/2020 CMP, serum or plasm a BUN 24 high Not Available [facility] [address] [facility] [address], [address], [place], [address], 11/15/2020 13:57:47 10/24/19 21 10/24/2020 CMP, serum or plasm a creatinine 1.36 high Not Available [facility] [address], [address], [place], [address], 11/15/2020 13:57:47 10/24/19 21 10/24/2020 CMP, serum or plasm a sodium, serum 136 normal Not Available [facility] [address], [address], [place], [address], 11/15/2020 13:57:47 10/24/19 21 10/24/2020 CMP, serum or plasm a potassium, serum 4.2 normal Not Available [facility] [address] [facility] [address], [address], [place], [address], 11/15/2020 13:57:47 10/24/19 21 10/24/2020 CMP, serum or plasm a chloride, serum 102 normal Not Available [facility] [address] [facility] [address], [address], [place], [address], 11/15/2020 13:57:47 10/24/19 21 10/24/2020 CMP, serum or plasm a carbon dixoide 27 normal Not Available [facility] [address] [facility] [address], [address], [place], [address], 11/15/2020 13:57:47 10/24/19 21 10/24/2020 CMP, serum or plasm a album, serum 4.3 normal Not Available [facility] [address] [facility] [address], [address], [place], [address], 11/15/2020 13:57:47 10/24/19 21 10/24/2020 CMP, serum or plasm a calcium, serum 9.5 normal Not Available [facility] [address] [facility] [address], [address], [place], [address], 11/15/2020 13:57:47 10/24/19 21 10/24/2020 CMP, serum or plasm a eGFR 53 low Not Available [facility] [address] [facility] [address], [address], [place], [address], 11/15/2020 13:57:47 10/24/19 21 10/24/2020 CMP, serum or plasm a protein, total, serum 6.7 normal Not Available [facility] [address] [facility] [address], [address], [place], [address], 11/15/2020 13:57:47 10/24/19 21 10/24/2020 CBC w/ auto diff HGB 14.5 normal Not Available [facility] [address] [facility] [address], [address], [place], [address], 11/02/2020 12:21:14 10/24/19 21 10/24/2020 CBC w/ auto diff HCT 43.1 normal Not Available [facility] [address], [address], [place], [address], 11/02/2020 12:21:14 10/24/19 21 10/24/2020 CBC w/ auto diff platelet count 242 normal Not Available [facility] [address], [address], [place], [address], 11/02/2020 12:21:14 10/24/19 21 10/24/2020 CBC w/ auto diff WBC count 4.9 normal Not Available [facility] [address], [place], [address], 11/02/2020 12:21:14 10/24/19 21 10/24/2020 CBC w/ auto diff glucose 103 normal Not Available [facility] [address], [address], [place], [address], 11/02/2020 12:21:14 10/24/19 21 10/24/2020 CBC w/ auto diff BUN 24 high Not Available [facility] [address], [address], [place], [address], 11/02/2020 12:21:14 10/24/19 21 10/24/2020 CBC w/ auto diff creatinine 1.36 high Not Available [facility] [address], [place], [address], 11/02/2020 12:21:14 10/24/19 21 10/24/2020 CBC w/ auto diff sodium, serum 136 normal Not Available [facility] [address], [place], [address], 11/02/2020 12:21:14 10/24/19 21 10/24/2020 CBC w/ auto diff potassium, serum 4.2 normal Not Available [facility] [address] [facility] [address], [place], [address], 11/02/2020 12:21:14 10/24/19 21 10/24/2020 CBC w/ auto diff chloride, serum 102 normal Not Available [facility] [address] [facility] [address], [address], [place], [address], 11/02/2020 12:21:14 10/24/19 21 10/24/2020 CBC w/ auto diff carbon dixoide 27 normal Not Available [facility] [address] [facility] [address], [place], [address], 11/02/2020 12:21:14 10/24/19 21 10/24/2020 CBC w/ auto diff album, serum 4.3 normal Not Available [facility] [address] [facility] [address], [place], [address], 11/02/2020 12:21:14 10/24/19 21 10/24/2020 CBC w/ auto diff calcium, serum 9.5 normal Not Available [facility] [address] [facility] [address], [address], [place], [address], 11/02/2020 12:21:14 10/24/19 21 10/24/2020 CBC w/ auto diff eGFR 53 low Not Available [facility] [address] [facility] [address], [address], [place], [address], 11/02/2020 12:21:14 10/24/19 21 10/24/2020 CBC w/ auto diff protein, total, serum 6.7 normal Not Available [facility] [address] [facility] [address], [place], [address], 11/02/2020 12:21:14 05/24/20 17 05/24/2017 [place], janae rowland No observ ation record ed. [email or web address] Not Available 2016 16:31:59 Result Notes None recorded. Problems Name Problem SNOMED Code Status Onset Date Resolution Date Notes Provider Name and Address Organization Details Recorded Time Chronic kidney disease stage 3 081435256 Active 2013 Not Available [facility] 5 13:00:54 Benign hypertensive renal disease 702783 Active 2013 Not Available [facility] 5 13:00:54 Hyperlipidemi a 04658454 Active 2013 Not Available [facility] 5 13:00:54 Essential hypertension 29217164 [facility] 7 17:03:46 Total nephrectomy Active 2016 [facility] 7 17:03:47 Problem Notes None recorded. Procedures Surgical History Date Name Laterality Status Provider Name and Address Organization Details Recorded Time 6 Other completed [facility], [facility] 08/13/2016 14:20:40 6 Shoulder joint surgery completed [facility], [facility] 08/13/2016 14:21:35 2 Nephrectomy completed [facility] 14:20:55 Imaging Results Imaging Date Name [...] Updated DateTime 05/29/2017 167.64 cm Peggy Powell [facility] 05/29/2017 16:11:51 Date Recorded Body mass index (BMI) Body weight Provider Name and Address Organization Details Last Updated DateTime 05/29/2017 21 kg/m2 96859.01 g [facility] 05/29/2017 16:11:56 Date Recorded Heart rate Provider Name an d Address Organization Details Last Updated DateTime 05/29/2017 66 /min Peggy Powell [facility] 05/29/2017 16:13:29 Date Recorded Body height Provider Name an d Address Organization Details Last Updated DateTime 11/18/2017 167.64 cm [facility] 11/18/2017 15:34:10 Date Recorded Body mass index (BMI) Body weight Provider Name and Address Organization Details Last Updated DateTime 11/18/2017 21.6 kg/m2 87818.38 g [facility] 11/18/2017 15:34:16 Date Recorded Heart rate Provider Name an d Address Organization Details Last Updated DateTime 11/18/2017 55 /min [facility] 11/18/2017 15:34:36 Date Recorded Body height Provider Name an d Address Organization Details Last Updated DateTime 09/04/2018 167.64 cm An Zayas [place] [facility] 09/04/2018 12:16:47 Date Recorded Body mass index (BMI) Body weight Provider Name and Address Organization Details Last Updated DateTime 09/04/2018 22 kg/m2 34966.56 g An Mera [facility] [...] Details Last Updated DateTime 03/12/2019 21.5 kg/m2 06740.79 g Leatha Tan [facility] [...] 03/12/2019 124 mm[Hg] 60 mm[Hg] Leatha Buckley [facility], [facility] 03/12/2019 12:50:35 Social History Question Answer Notes LastModified by Organizat ion Details LastModified Time Tobacco Smoking Status Never Smoker [facility] 08/13/2016 14:19:58 Do You Have An [...] SNOMED-CT Code Diagnosis ICD10 Code Diagnosis Note [id number] [facility] [address] [place] [address] 03/26/2014 00:00:00 [id number] [facility] [address] [place] [address] 05/24/2014 00:00:00 [id number] MD [facility] [address] [place] [address] 08/13/2016 13:38:15 08/13/2016 14:40:33 Chronic kidney disease stage 3 739040377 N18.3 G3a/A1, without proteinuri a in associatio n with solitary R kidney/CAU and HTN.Cr stable. Essential hypertension 38809994 I10 controlled .recommend ACEI/ARB. Total nephrectomy 246846 003 Z90.5 s/p L nephrectom y for CAU at age 7. [id number] MD [facility] [address] [place] [address] 02/18/2017 16:27:32 02/18/2017 17:20:33 Chronic kidney disease stage 3 580803913 N18.3 G3a/A1, without proteinuri a in associatio n with solitary R kidney/CAU and HTN. Essential hypertension 62418573 I10 controlled .recommend ACEI/ARB. Total nephrectomy 399027 003 Z90.5 s/p L nephrectom y for CAU at age 7. [id number] MD [facility] [address] [place] [address] 05/29/2017 15:45:50 05/29/2017 16:39:59 Chronic kidney disease stage 3 957468371 N18.3 G3a/A1, without proteinuri a in associatio n with solitary R kidney/CAU and HTN. Essential hypertension 40168875 I10 controlled .recommend ACEI/ARB. Total nephrectomy 505010 003 Z90.5 s/p L nephrectom y for CAU at age 7. [id number] MD [facility] [address] [place] [address] 11/18/2017 15:20:10 11/18/2017 15:59:01 Chronic kidney disease stage 3 153716078 N18.3 G3a/A1.wit hout proteinuri a in associatio n with solitary R kidney/CAU and HTN. Essential hypertension 98864711 I10 controlled .stop Amlodipine .change to losartan 50mg qhs. Total nephrectomy 548017 003 Z90.5 s/p L nephrectom y for CAU at age 7. [id number] MD [facility]han [facility] [address] [facility] [place] [address] 09/04/2018 11:50:46 09/04/2018 12:38:35 Chronic kidney disease stage 3 [id number] N18.3 G3a/A1.wit hout proteinuri a in associatio n with solitary R kidney/CAU and HTN.GFR stable Essential hypertension 25723994 I10 controlled .on Norvasc 2.5 mg .Stopped Losartan on his own 6 months ago .Daily BP checks Total nephrectomy 025125 003 Z90.5 s/p L nephrectom y for CAU at age 7. [id number] MD Farhan Michaels d Office [address] [facility] [place] [address] 03/12/2019 12:41:48 03/12/2019 13:20:29 Chronic kidney disease stage 3 188824040 N18.3 G3a/A1.wit hout proteinuri a in associatio n with solitary R kidney/CAU and HTN.GFR stable is 44 today. Discussed with patient control his factors including avoiding NSAIDs and good control of hypertensi on. Hydration. Essential hypertension 31773176 I10 controlled .on Norvasc 2.5 mg .Stopped Losartan on his own 6 months ago .Daily BP checks Total nephrectomy 769558 003 Z90.5 s/p L nephrectom y for CAU at age 7. [id number] MD Farhan Michaels d Office [address] [facility] [place] [address] 02/04/2020 12:58:53 02/04/2020 14:35:10 Chronic kidney disease stage 3 838100151 N18.3 G3a/A1.wit hout proteinuri a in associatio n with solitary R kidney/CAU and HTN.GFR stable is 44 today. Discussed with patient control his factors including avoiding NSAIDs and good control of hypertensi on. Hydration. Discussed with her that he may have enlarged prostate. He will follow-up with urology. Essential hypertension 51158765 I10 controlled .on Norvasc 2.5 mg .Stopped Losartan on his own 6 months ago .Daily BP checks Total nephrectomy 882502 003 Z90.5 s/p L nephrectom y for CAU at age 7. Health Concerns Section Related Observation LastModified by Organization Detai ls LastModified Time None Recorded Concern Status LastModified by Organization Details LastModified Time None Recorded Advance Directives Directive N: Payers Encounter Date Sequence Insurance Name Policy Number Policy Bruno Covered Member ID Bruno Member ID Guarantor Name 05/29/2017 1 [place] Jerry H Pfoutz [id number] Jerry H Pfoutz 11/18/2017 1 [place] Jerry H Pfoutz [id number] Jerry H Pfoutz 09/04/2018 1 [place] Jerry H Pfoutz [id number] Jerry H Pfoutz 03/12/2019 1 [place] Jerry H Pfoutz [id number] Jerry H Pfoutz 02/04/2020 1 [place] Jerry H Pfoutz [id number] Jerry H Pfoutz Notes Date Note [...] Elliott MD [address], [place], [address], [facility] [place] [facility], [facility] 05/29/2017 16:36:36 11/18/2017 text/html 62 year [...] Elliott MD [address], [place], [address], [facility], [facility] 11/18/2017 15:55:32 09/04/2018 text/html 62 year [...] Brooks MD [address], [place], [address], [facility], [facility] 09/04/2018 12:42:27 03/12/2019 text/html 62 year [...] Brooks MD [address], [place], [address], [facility] [place] [facility], [email or web address] 03/12/2019 15:11:42 02/04/2020 text/html This visit was [...] Brooks MD [address], [place], [address], [facility] Disease, [facility] 02/04/2020 16:19:29
[2024-10-02 09:07] VITALS: BP 132/84; PULSE 70; RESP 18; TEMP 36.6; O2SAT 97; BMI 25.1
--- NOTE | 2024-10-02 09:47 | ED_ITS ---
HPI - General Adult General Chief complaint: Urogenital Problems, Male Stated complaint: Needs catheter removed Time Seen by Provider: 10/02/24 09:46 Source: patient Mode of arrival: ambulatory Limitations: no limitations History of Present Illness HPI narrative: 69-year-old male presenting to the emergency department today requesting to have his Andre catheter removed. Patient has been having difficulty with urinary retention. He presented to the emergency department on the of this month and found to have urinary retention. Andre catheter was placed and he kept that in for a couple days. He then presented back on the with the same problem. Catheter was placed at that time as well. Patient presents today, less than 2 days later requesting the catheter to be removed. He denies any fevers, chills. He is not having any abdominal pain. He does have chronic constipation but he feels like he had a bowel movement that was good-sized yesterday. He is not nauseated. He denies vomiting. Related Data Home Medications ?Medication ?Instructions ?Recorded ?Confirmed clonazepam 0.5 mg tablet 0.5 mg PO DAILY 12/02/22 09/07/24 mirtazapine 7.5 mg tablet 7.5 mg PO QPM 12/02/22 09/07/24 pravastatin 40 mg tablet 40 mg PO DAILY 12/02/22 09/07/24 amlodipine 5 mg tablet 5 mg PO DAILY 03/11/23 09/07/24 aspirin 81 mg tablet,delayed 81 mg PO DAILY 09/06/23 04/06/24 release (Adult Aspirin Regimen) Previous Rx's ?Medication ?Instructions ?Recorded pantoprazole 20 mg tablet,delayed 20 mg PO DAILY #20 tabs 10/01/23 release (Protonix) ciprofloxacin HCl 500 mg tablet 500 mg PO BID #10 tabs 09/22/24 metronidazole 500 mg tablet 500 mg PO BID 7 days #14 tabs 09/22/24 Allergies Allergy/AdvReac Type Severity Reaction Status Date / Time No Known Drug Allergies Allergy Verified 10/02/24 09:07 Review of Systems Status of ROS: Reports: 10 or more systems reviewed and unremarkable except as noted in History and below PFSH PFSH Social History Smoking Status: Never smoker Do you use any of these nicotine containing products: None How often do you have a drink containing alcohol: never How often do you have six or more drinks on one occasion: Never AUDIT-C Alcohol total score: 0 Non-prescribed substance use: denies use service: No Exam Narrative: Exam Narrative: Well-nourished well-developed patient in no acute distress. Alert and oriented. Answers questions appropriately. Mood and affect are appropriate. Thoughts are goal oriented and rational. No tangential or magical thinking noted. Patient speaks in full sentences without needing to catch his breath. HEENT: Normocephalic atraumatic. Extraocular muscles are intact. Conjunctivae are moist without any icterus noted. Moist mucous membranes. Abdomen: Soft and nontender nondistended with normal bowel sounds. No peritoneal signs. No CVA tenderness. : Andre in place, no irritation or abnormalities noted of the penis. Urine is clear and straw-colored. He has a couple flecks of blood in there. Skin: Well perfused without any obvious rashes. Const: Vital Signs, click to edit/add: Vital Signs - 24 hr 10/02/24 09:07 Temperature 97.9 F Pulse Rate [Pulse Oximeter] 70 Respiratory Rate 18 Blood Pressure [Ri t Upper Arm] 132/84 Pulse Oximetry 97 Oxygen Delivery Me thod Room Air Course Course ED Course: I discussed at length with the patient removing the Andre today's likely not a good idea. Has been less than 2 days since he had it last placed and the likelihood of us needing to replace it is very high if it is removed today. Patient states that he understands this but again, request that the Andre be removed despite our discussion of risks and benefits. Vital Signs Vital signs: Initial Vital Signs Temperature 97.9 F 10/02/24 09:07 Temperature Source Temporal Artery Scan 10/02/24 09:07 Pulse Rate 70 10/02/24 09:07 Pulse Rhythm Regular 10/02/24 09:07 Respiratory Rate 18 10/02/24 09:07 Blood Pressure 132/84 10/02/24 09:07 Blood Pressure Mean 100 10/02/24 09:07 Blood Pressure Position High-Fowlers 10/02/24 09:07 Pulse Oximetry 97 10/02/24 09:07 Oxygen Delivery Method Room Air 10/02/24 09:07 Vital Signs Temperature 97.9 F 10/02/24 09:07 Pulse Rate 70 10/02/24 09:07 Respiratory Rate 18 10/02/24 09:07 Blood Pressure 132/84 10/02/24 09:07 Pulse Oximetry 97 10/02/24 09:07 Oxygen Delivery Method Room Air 10/02/24 09:07 Temperature 97.9 F 10/02/24 09:07 Pulse Rate 70 10/02/24 09:07 Respiratory Rate 18 10/02/24 09:07 Blood Pressure 132/84 10/02/24 09:07 Pulse Oximetry 97 10/02/24 09:07 Oxygen Delivery Method Room Air 10/02/24 09:07 Medical Decision Making MDM Narrative Medical decision making narrative: 69-year-old male coming in today requesting that his Andre catheter be removed. We discussed today that this is likely not a good idea - the patient insisted it be removed. Therefore Andre was removed. He will return if he has no urine output over the next 12 hours. Medical Records Medical records reviewed: Yes I reviewed the patient's medical records Discharge Plan Discharge Clinical Impression: Acute urinary retention Patient Disposition: Home, Self-Care Condition: Stable Additional Instructions: If you do not have any urine output over the next 12 hours, return to the emergency department for placement of a Andre catheter. Prescriptions: No Action pravastatin 40 mg tablet 40 mg PO DAILY clonazepam 0.5 mg tablet 0.5 mg PO DAILY mirtazapine 7.5 mg tablet 7.5 mg PO QPM aspirin [Adult Aspirin Regimen] 81 mg tablet,delayed release (DR/EC) 81 mg PO DAILY pantoprazole [Protonix] 20 mg tablet,delayed release (DR/EC) 20 mg PO DAILY Qty: 20 2RF ciprofloxacin HCl 500 mg tablet 500 mg PO BID Qty: 10 0RF metronidazole 500 mg tablet 500 mg PO BID 7 Days Qty: 14 0RF amlodipine 5 mg tablet 5 mg PO DAILY Patient Comments: TAKE 1 TABLET (5 MG) BY MOUTH ONCE DAILY. Follow Up/Referrals: Natalie Juárez DO [Primary Care Provider] - Stand Alone [facility] Inst[facility]
--- OUTSIDE RECORDS SUMMARY | 2024-10-02 10:09 | XMS_ITS | Clinical Summary ---
Author Organization [employer] [facility] Address [place], [place] [address] Care Team Providers Care Band Saw Filer Name Role Phone Natalie Juárez DO Primary Care Provider [phone] Kate Pugh DO Unavailable Billy Sanon MD Unavailable [phone] Allergies No known active allergies Medications MULTIVITAMIN [...] Type Department Care Team Description 09/28/2024 Telephone [facility] 100 [facility] [place] [address] Billy Sanon MD Questions 09/24/2024 8:45 AM MILLER HEAD ASSISTANT WET PROCESS Office Visit [facility] [address] [place] [address] Abhijit Burns MD Follow Up (ER 09/22 [facility]/Catheter removal /diarrhea is still continuing ) 09/24/2024 Travel 09/23/2024 Telephone [facility] [address] [place] [address] Natalie Juárez, DO Appointment Request (FOR CATHETER REMOVAL) 09/22/2024 Refill [facility] [address] [place] [address] Natalie Juárez, DO Refill Request (Amlodipine) 09/07/2024 Refill [facility] 280 [facility] [address] [place] [address] Kate Pugh, Refill Request (clonazePAM (KLONOPIN) 0.5 mg tablet/) 08/10/2024 1:40 PM MILLER HEAD ASSISTANT WET PROCESS Office Visit [facility] [address] [place] [address] Billy Sanon MD Consult (BPH without urinary obstruction /- H/O urethral stricture /Shaqra, Natalie Aliya, DO /) 08/10/2024 Travel 07/20/2024 Refill [facility] [address] [facility] [place] [address] Shaqra, Natalie Aliya, DO Refill Request (Pravastatin) [...] on file Legal Sex Male 6:11 AM MILLER HEAD ASSISTANT WET PROCESS Gender Identity Not on file Sexual Orientation Not on file Occupation Industry Job Start Date Job End Date unemployed Not on file Not on file Not on file Not on file Not on file Not on file Not on file Obstetrics History Last Filed Vital Signs Vital Sign Reading Time Taken Comments Blood Pressure 130/86 09/24/2024 8:43 AM MILLER HEAD ASSISTANT WET PROCESS Pulse 78 09/24/2024 8:43 AM MILLER HEAD ASSISTANT WET PROCESS Temperature 36.7 C (98.1 F) 01/14/2023 9:46 AM CDT Respiratory Rate 18 01/14/2023 9:46 AM CDT Oxygen Saturation 96% 09/24/2024 8:43 AM MILLER HEAD ASSISTANT WET PROCESS Inhaled Oxygen Concentration - - Weight 71 kg (156 lb 9.6 oz) 09/24/2024 8:43 AM MILLER HEAD ASSISTANT WET PROCESS Height 170.7 cm (5' 7.21) 02/04/2024 9:08 AM CD T Body Mass Index 24.38 02/04/2024 9:08 AM CDT Plan of Treatment Upcoming Encounters Date Type Department Care Team (Late st Contact Info) Description 11/09/2024 12:40 PM CDT Procedure Only [facility] 100 [facility] [place] [address] Billy Sanon MD [address] [place] [address] 12/02/2024 1:00 PM CDT Phone Office Visit [facility] [address] [place] [phone] Kate Pugh DO [address] [place], [place] [id number] Health Maintenance Due Date Last Done Comments [...] 02/03/2029 02/04/2024, 06/22/2022, 01/20/2020 (Completed outside of [facility]), Additional history exists Tetanus booster 07/11/2029 07/11/2019, 04/16/2006 Colonoscopy through age 75 03/03/203003/03 (Completed outside of [facility]) Tdap Completed 07/11/2019, 04/16/2006 Hepatitis C screening for ag e 18-79 Completed 01/02/2022 Zoster (shingles) series for age 50+ Completed 08/21/2022, 03/26/2022 AAA screening age 65-74 Completed 09/24/2022 COVID-19 vaccine series Completed 06/29/20 24, 06/12/2023, 07/11/2022, Additional history exists Influenza for age 65+ Completed 06/29/2024 , 06/12/2023, 06/14/2008 Procedures Procedure Name Priority Date/Time Associated Diagnosis Comments RI LESLIE POST-VOIDING RESIDUAL URINE&/BLADDER CAP Routine 08/10/2024 12:00 AM MILLER HEAD ASSISTANT WET PROCESS H/O urethral stricture Recurrent UTI LIPID PANEL W REFLEX MEASURED LDL Routine 02/04/2024 9:53 AM CDT Hyperlipidemia, unspecified hyperlipidemia type US ABD AORTA SCREENING Routine 09/24/2022 9:16 AM MILLER HEAD ASSISTANT WET PROCESS Screening for AAA (aortic abdominal aneurysm) ANTI HCV Routine 01/02/2022 10:46 AM CDT Encounter for hepatitis C screening test for low risk patient from Last 3 Months or Most Recently Relevant to Health Maintenance Results * RI LESLIE POST-VOIDING RESIDUAL URINE&/BLADDER CAP (08/10/2024 12:00 AM MILLER HEAD ASSISTANT WET PROCESS) Billy Sanon MD PB - URINARY SYSTEM SE RVICES Final Result * LIPID PANEL W REFLEX MEASURED LDL (02/04/2024 9:53 AM CDT) CHOLESTEROL,TOTAL 198 100 - 199 mg/dL 02/04/2024 6:48 PM CDT [facility] Comment: Cholesterol, Total Reference Ranges Desirable <200 mg/dL Borderline 200-239 mg/dL High >=240 mg/dL TRIGLYCERIDES 119 <150 mg/dL 02/04/2024 6:48 PM CDT [facility] HDL CHOLESTEROL 67 >40 mg/dL 6:48 PM CDT [facility] NON-HDL CHOLESTEROL 131 <145 mg/dl 02/04/2024 6:48 PM CDT [facility] CHOL/HDL RATIO 2.96 <4.50 02/04/2024 6:48 PM CDT [facility] LDL CHOLESTEROL 107 <=130 mg/dL 02/04/2024 6:48 PM CDT [facility] VLDL CHOLESTEROL 24 <=30 mg/dL 02/04/2024 6:48 PM CDT [facility] PROVIDER ORDERED STATUS RANDOM 02/04/2024 6:48 PM CDT [facility] Blood BLOOD SPECIMEN / Unknown Venipuncture / Unknown 02/04/2024 9:53 AM CDT 02/04/2024 9:53 AM CDT us Natalie Juárez DO CHEMISTRY Final Result [facility] [address] [place] [address], [place] * US ABD AORTA SCREENING [[id number]] (09/24/2022 9:16 AM MILLER HEAD ASSISTANT WET PROCESS) Anatomical Region Laterality Modality Abdomen, AORTA Ultrasound 09/24/2022 10:4 1 AM MILLER HEAD ASSISTANT WET PROCESS Impressions 09/24/2022 10:41 AM MILLER HEAD ASSISTANT WET PROCESS Normal sonographic assessment of the abdominal aorta. Dictated by Colin Dumas MD @ Sep 24 2022 10:41AM (Electronically Signed) Narrative 09/24/2022 10:41 AM MILLER HEAD ASSISTANT WET PROCESS For Patients: As a result of the [...] @ Sep 24 2022 10:41AM (Electronically Signed) [employer] Marquita GIRON US Final Result * ANTI HCV (01/02/2022 10:46 AM CDT) HEPATITIS C ANTIBODY Non-React asia Non-React asia 01/02/2022 6:27 PM CDT [facility] Comment:Antibodies to HCV no t detected; does not exclude the possibility of exposure to HCV. Blood BLOOD SPECIMEN / Unknown Venipuncture / Unknown 01/02/2022 10:46 AM CDT 01/02/2022 10:47 AM CDT [employer] Aliya Vaughnqra DO SEND OUTS Final Result [facility] [address] [place] [address], [place] from Last 3 Months or Most Recently Relevant to Health Maintenance Insurance MEDICARE PB ONLY [facility] [place]N: [place] [address] MEDICARE PART B HB ONLY MEDICARE PART A HB ONLY Care Teams Band Saw Filer Relationship Specialty Start Date End Date Natalie Juárez, DO [address] [place] [address] PCP - General Family Practice 03/01/21 Kate Pugh DO [address] [place] [address] Psychiatry 02/04/23 Billy Sanon MD 100 [facility] [place] [address] Surgery - Urology 08/10/24
== END 2024-10-02 10:20 | disposition home or self-care (01) ==
LOC: ED 10:07
PROVIDERS: Emergency Provider Family Medicine; PCP Family Medicine
DX: R33.9 Retention of urine, unspecified (principal); Z46.6 Encounter for fitting and adjustment of urinary device
CPT/HCPCS: 99282; 99284

== ENCOUNTER 2025-03-02 17:11 | Inpatient (IN) | payer MEDICARE, SELFPAY ==
[2025-03-02] VITALS (9 sets, daily range): BP systolic 116–127; BP diastolic 72–78; PULSE 93–111; RESP 16–18; TEMP 37.1–37.9; O2SAT 93–94; BMI 24.2; BMI 24.5
--- OUTSIDE RECORDS SUMMARY | 2025-03-02 17:14 | XMS_ITS | Clinical Summary ---
Author Organization [employer] [facility] Address [address] [place] [address] Care Team Providers Care Network Control Operator Name Role Phone Natalie Juárez Aliya GIRON Primary Care Provider [phone] Kate Pugh DO Unavailable Billy Sanon MD [...] mouth once daily. 0 06/22/20 22 Active mirtazapine (REMERON) 7.5 mg tabletIndications: Insomnia, idiopathic Take 1 Tablet (7.5 mg) by mouth at bedtime. 90 Tablet 3 06/03/20 24 Active pravastatin (PRAVACHOL) 40 mg tabletIndications: Mixed hyperlipidemia TAKE 1 TABLET (40 MG) BY MOUTH ONCE DAILY. 90 Tablet 2 07/23/20 24 Active amLODIPine (NORVASC) 5 mg tabletIndications: Essential hypertension TAKE 1 TABLET (5 MG) BY MOUTH ONCE DAILY. 90 Tablet 2 09/23/19 25 Active clonazePAM 0.5 mg tabletIndications: Generalized anxiety disorder with panic attacks TAKE 1 TABLET (0.5 MG) BY MOUTH ONCE DAILY and second dose 0.5mg (1 tab) IF NEEDED FOR ANXIETY. TO LAST AT LEAST 30 DAYS. 45 Tablet 5 12/03/19 25 Active tamsulosin 0.4 mg capsuleIndications :BPH with obstruction/lower urinary tract symptoms Take 1 Capsule (0.4 mg) by mouth once daily after a meal. 90 Capsule 3 01/06/20 25 Active Additional Information Patient not taking.Reported on 02/08/2025 Catheter (Self-Cath) 14-16 Fr- miscIndications:Ur inary retention As directed. 100 Each 2 01/21/20 25 Active lubricant gelIndications:Uri nary retention Apply topically to affected area(s) each time if needed (As needed with catherization). 113 g 2 01/21/20 25 Active loperamide 2 mg capsuleIndications :Chronic diarrhea TAKE 2 CAPSULES (4MG) BY MOUTH WITH 1ST LOOSE STOOL, THEN 1 CAPSULE (2MG) WITH OTHER LOOSE STOOLS. MAX 8 CAPSULES (16 MG) IN 24 HRS. 270 Capsule 3 01/23/20 25 Active nitrofurantoin macrocrystals/mono hydrate (Macrobid) 100 mg capsuleIndications :Urinary retention Take 1 Capsule (100 mg) by mouth two times daily for 3 days. start three days prior to the urodynamics testing date 6 Capsule 02/09/20 25 025 Active Problems Problem Noted Date Diagnosed Date Urinary retention 11/09/2024 Stricture of overlapping sites of urethra in mal e 11/09/2024 Solitary kidney, acquired 08/05/2024 Recurrent UTI 08/05/2024 [...] Encounters Date Type Department Care Team Description 02/28/2025 Nurse Triage [facility] [address] [place] [address] Natalie Juárez Aliya, DO Diarrhea 02/27/[address] [address] Billy Sanon MD Questions (Questions regarding his medications before his lab 03/01/25) 02/27/2025 Nurse Triage [facility] [address] [place] [address] Natalie Juárez Aliya, DO Questions 02/26/2025 Nurse Triage [address] [phone] Billy Sanon MD Concerns 02/26/2025 Nurse Triage [address] [phone] Billy Sanon MD Error-please disregard 02/26/[address] [place] [address] Billy Sanon MD 02/25/[address] [phone] Billy Sanon MD Message 02/18/2025 3:30 PM CDT Nurse/Clinic Staff Only [address] [phone] Nurse/Clinic Staff Only (Self catheter teaching) 02/18/2025 Travel 02/17/[address] [phone] Billy Sanon MD Referral (Catheter Prescription and Referral) 02/16/[address] [address] Billy Sanon MD Message (Where is the patient's catheter? ) 02/10/[address] [phone] Billy Sanon MD requesting call 02/08/2025 2:20 PM CDT Office Visit [address] [phone] Billy Sanon MD Follow Up (Bladder scan) 02/08/2025 Travel 02/04/[address] [address] Billy Sanon MD Error-please disregard 01/22/2025 3:00 PM CDT Office Visit [facility] [address] [place] [address] Natalie Juárez, DO Facial Injury (L jaw/facial pain - from mouthguard? ); Foot Pain/problem (Left foot pain - bruise?) 01/22/2025 Travel 01/20/2025 10:30 AM CDT Nurse/Clinic Staff Only [address] [phone] Nurse/Clinic Staff Only (Self Cath teaching ) 01/20/2025 Travel 01/11/[address] [place] [address] Billy Sanon MD Appointment Request (TIGHTNESS AROUND BLADDER) 01/05/2025 Telephone [facility] 100 [facility] [place] [address] Billy Sanon MD Questions (requesting a call ) 12/02/2024 1:00 PM CDT Phone Office Visit [facility] [address] [facility] [address] [place] [phone] Kate Pugh DO Medication Management; Phone Visit ([place]) from Last 3 Months Immunizations Immunization Administration Dates Next Due COVID-19 VACCINE SPIKEVAX (M ODERNA 50MCG/0.5ML) 12YO+ PFS 06/29/2024,06/12/2023 COVID-19 vaccine (Moderna 100mcg/0.5mL) PF, MDV 03/26/2022,08/17/2021,01/17/2021,2020 COVID-19 vaccine (Moderna 50mcg/0.5mL) 12YO+ BIVALENT PF, [...] Answer Date Recorded PHQ-2 TOTAL SCORE 1 12/02/2024 Social Connections Answer Date Recorded Do you often feel lonely or isolated from those around you? 0 01/22/2025 Financial Resource Strain Answer Date R ecorded Difficulty of Paying Living Expenses 3 01/22/2025 Difficulty of Paying Living Expenses Not on file 01/22/2025 Food Insecurity Answer Date Recorded Do you worry your food will run out before you are able to buy more? 1 01/22/2025 Transportation Needs Answer Date Record ed Does lack of transportation keep you from medica l appointments? 1 01/22/2025 Does lack of transportation keep you from work, meetings or getting things that you need? 1 01/22/2025 Housing Stability Answer Date Recorded What is your housing situation today? 1 01/22/2025 Utilities Answer Date Recorded Do you have trouble paying f or utilities (for example, heat, electricity, water, phone)? 1 01/22/2025 Sex and Gender Information Value Date Recorded Sex Assigned at Not on file Legal Sex Male 6:11 AM WIND PROJECT MANAGER Gender Identity Not on file Sexual Orientation Not on file Occupation Industry Job Start Date Job End Date unemployed Not on file Not on file Not on file Not on file Not on file Not on file Not on file Obstetrics History Last Filed Vital Signs Vital Sign Reading Time Taken Comments Blood Pressure 118/60 02/08/2025 2:36 PM CDT Pulse 60 02/08/2025 2:36 PM CDT Temperature 36.7 C (98.1 F) 01/14/2023 9:46 AM CDT Respiratory Rate 18 01/14/2023 9:46 AM CDT Oxygen Saturation 98% 01/22/2025 2:50 PM CDT Inhaled Oxygen Concentration - - Weight 70.6 kg (155 lb 11.2 oz) 02/08/2025 2:36 PM CDT Height 170.7 cm (5' 7.21) 02/04/2024 9:08 AM CD T Body Mass Index 24.24 02/04/2024 9:08 AM CDT Plan of Treatment Upcoming Encounters Date Type Department Care Team (Late st Contact Info) Description 03/17/2025 12:55 PM CDT Office Visit [facility] [address] [place] [address] Natalie Juárez DO [address] [place] [address] 04/19/2025 10:30 AM CDT Appointment [facility] [address] [place] [address] 05/10/2025 11:00 AM CDT Office Visit [facility] 100 [place] [address] Billy Sanon MD [address] [place], [place] [phone] 06/03/2025 1:00 PM CDT Phone Office Visit [facility] [address] [place] [phone] Kate Pugh DO [address] [place], [place] [phone] Health Maintenance Due Date Last Done Comments Hepatitis B series for 19+ ( 2 of 3 - 19+ 3-dose series) 01/15/2003 12/18/2002 Pneumococcal series for age 50+ (1 of 1 - PCV) 2007 COVID-19 vaccine series ( season) 2024 06/29/2024, 06/12/2023, 07/11/2022, Additional history exists BMI (ht and wt on same day) for age 18+ 02/03/2025 02/04/2024, 01/14/2023, 01/08/2023, Additional history exists Medicare Wellness for age 65+ 02/04/2025, 01/08/2023, 01/02/2022 Influenza Vaccine (#1) 2025 , 06/12/2023, 06/14/2008 Depression screening for age 12+ 12/02/2025 12/02/2024, 02/04/2024, 11/11/2023, Additional history exists Lipids for age 45-75 02/03/2029 02/04/2024, 06/22/2022, 01/20/2020 (Completed outside of [facility]), Additional history exists Tetanus booster 07/11/2029 07/11/2019, 04/16/2006 Colonoscopy through age 75 03/03/203003/03 (Completed outside of [facility]) RSV vaccine for adults or (1 - 1-dose 75+ series) 2032 Hepatitis C screening for ag e 18-79 Completed 01/02/2022 Zoster (shingles) series for age 50+ Completed 08/21/2022, 03/26/2022 AAA screening age 65-74 Completed 09/24/2022 Procedures Procedure Name Priority Date/Time Associated Diagnosis Comments DE LESLIE POST-VOIDING RESIDUAL URINE&/BLADDER CAP Routine 02/08/2025 12:00 AM CDT H/O urethral stricture Solitary kidney, acquired Urinary retention BPH with obstruction/lower urinary tract symptoms LIPID PANEL W REFLEX MEASURED LDL Routine 02/04/2024 9:53 AM CDT Hyperlipidemia, unspecified hyperlipidemia type US ABD AORTA SCREENING Routine 09/24/2022 9:16 AM WIND PROJECT MANAGER Screening for AAA (aortic abdominal aneurysm) ANTI HCV Routine 01/02/2022 10:46 AM CDT Encounter for hepatitis C screening test for low risk patient from Last 3 Months or Most Recently Relevant to Health Maintenance Results * DE LESLIE POST-VOIDING RESIDUAL URINE&/BLADDER CAP (02/08/2025 12:00 AM CDT) us Billy Sanon MD PB - URINARY SYSTEM SE RVICES Final Result * LIPID PANEL W REFLEX MEASURED LDL (02/04/2024 9:53 AM CDT) CHOLESTEROL,TOTAL 198 100 - 199 mg/dL 02/04/2024 6:48 PM CDT [facility] Comment: Cholesterol, Total Reference Ranges Desirable <200 mg/dL Borderline 200-239 mg/dL High >=240 mg/dL TRIGLYCERIDES 119 <150 mg/dL 02/04/2024 6:48 PM CDT [facility] HDL CHOLESTEROL 67 >40 mg/dL 6:48 PM CDT [facility] NON-HDL CHOLESTEROL 131 <145 mg/dl 02/04/2024 6:48 PM CDT [facility] CHOL/HDL RATIO 2.96 <4.50 02/04/2024 6:48 PM CDT [facility] LDL CHOLESTEROL 107 <=130 mg/dL 02/04/2024 6:48 PM CDT [facility] VLDL CHOLESTEROL 24 <=30 mg/dL 02/04/2024 6:48 PM CDT [facility] PROVIDER ORDERED STATUS RANDOM 02/04/2024 6:48 PM CDT [facility] Blood BLOOD SPECIMEN / Unknown Venipuncture / Unknown 02/04/2024 9:53 AM CDT 02/04/2024 9:53 AM CDT us Natalie Juárez CHEMISTRY Final Result [facility] [address] [address], [place] * US ABD AORTA SCREENING [[id number]] (09/24/2022 9:16 AM WIND PROJECT MANAGER) Anatomical Region Laterality Modality Abdomen, AORTA Ultrasound 09/24/2022 10:4 1 AM WIND PROJECT MANAGER Impressions 09/24/2022 10:41 AM WIND PROJECT MANAGER Normal sonographic assessment of the abdominal aorta. Dictated by Colin Dumas MD @ Sep 24 2022 10:41AM (Electronically Signed) Narrative 09/24/2022 10:41 AM WIND PROJECT MANAGER For Patients: As a result of the [...] 24 2022 10:41AM (Electronically Signed) Natalie Aliya Marquita DO US Final Result * ANTI HCV (01/02/2022 10:46 AM CDT) HEPATITIS C ANTIBODY Non-React asia Non-React asia 01/02/2022 6:27 PM CDT [facility] Comment:Antibodies to HCV no t detected; does not exclude the possibility of exposure to HCV. Blood BLOOD SPECIMEN / Unknown Venipuncture / Unknown 01/02/2022 10:46 AM CDT 01/02/2022 10:47 AM CDT Natalie Aliya Vaughnq DO SEND OUTS Final Result [facility] [address] [place] [address], from Last 3 Months or Most Recently Relevant to Health Maintenance Insurance MEDICARE [place] [address] [place] [phone] [facility] [place]: [place] [address] MEDICARE PART B HB ONLY MEDICARE PART A HB ONLY Care Teams Network Control Operator Relationship Specialty Start Date End Date Natalie Juárez DO [address] [place] [address] PCP - General Family Practice 03/01/21 Kate Pugh DO [address] [place] [address] Psychiatry 01/11/23 Billy Sanon MD 100 [facility] [place] [address] Surgery - Urology 08/10/24
--- OUTSIDE RECORDS SUMMARY | 2025-03-02 17:14 | XMS_ITS | CCD ---
Author Name Interface, [id number] [address] Organization [facility] [place] [address] Allergies and Adverse Reactions Reason for Visit Medications Problems Social History
--- OUTSIDE RECORDS SUMMARY | 2025-03-02 17:14 | XMS_ITS | CCD ---
Author Name Interface, [id number] [address] Organization [facility] [place] [address] Allergies and Adverse Reactions Reason for Visit Medications Problems Social History
--- OUTSIDE RECORDS SUMMARY | 2025-03-02 17:15 | XMS_ITS | Data Portability ---
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 [email or web address] Not available 02/04/2020 13:19:46 Plan of Treatment Reminders Order Date Submit Date Provider Last Modified By Organization Details Last Modified Time Details Appointments None recorded. Lab PTH (parathyro id hormone), intact, serum or plasma 2019 021 [facility], [address] [facility], [address], [place], [address], 1 15:55:27 vitamin D, 25-hydroxy , total, serum 2019 [facility], [address] [facility] [address], [address], [place], [address], 1 15:55:27 CBC w/ auto diff 2019 [facility], [address] [facility], [address], [place], [address], 1 13:57:47 magnesium, serum or plasma 2019 021 [facility], [address], [address], [place], [address], 1 15:55:27 protein:cr eatinine ratio, urine 2019 [facility], [address], [address], [place], [address], 1 15:55:27 uric acid, serum or plasma 2019 021 [facility], [address], [address], [address], [place], [address], 1 15:55:27 renal function panel, serum 2019 021 [facility], [address], [address], [place], [address], 1 15:55:27 PTH (parathyro id hormone), intact, serum or plasma 2018 [facility], [address], [address], [address], [place], [address], 0 19:51:03 vitamin D, 25-hydroxy , total, serum 2018 [facility], [address], [address], [place], [address], 0 19:51:03 CBC w/ auto diff 2018 [facility], [address], [address], [place], [address], 0 19:51:03 magnesium, serum or plasma 2018 020 [facility], [address], [address], [address], [place], [address], 0 19:51:03 protein:cr eatinine ratio, urine 2018 020 [facility], [address], [address], [address], [place], [address], 0 19:51:03 uric acid, serum or plasma 2018 020 [facility], [address], [address], [address], [place], [address], 0 19:51:03 renal function panel, serum 2018 020 [facility], [address], [address], [place], [address], 0 19:51:03 magnesium, blood 2018 019 [facility], [address], [address], [place], [address], 9 14:09:34 phosphorus , blood 2018 019 [facility], [address], [address], [place], [address], 9 14:09:34 protein:cr eatinine ratio, urine 2018 019 [facility], [address], [address], [place], [address], 9 18:56:10 uric acid, serum or plasma 2018 019 [facility], [address], [address], [place], [address], 9 14:09:34 BMP, serum or plasma 2018 019 [facility], [address], [address], [place], [address], 9 14:09:34 CMP, serum or plasma 2017 018 [facility], [address], [address], [place], [address], 9 17:00:34 magnesium, blood 2017 018 [facility], [address], [address], [address], [place], [address], 8 20:07:04 phosphorus , blood 2017 018 [facility], [address], [address], [address], [place], [address], 8 20:07:04 protein:cr eatinine ratio, urine 2017 018 [facility], [address], [address], [place], [address], 8 20:07:04 CBC w/ auto diff 2017 018 [facility], [address], [address], [place], [address], 9 16:56:21 uric acid, serum or plasma 2017 018 [facility], [address], [address], [place], [address], 8 20:07:04 urinalysis complete, reflex culture 2017 018 [facility], [address], [address], [place], [address], 9 16:56:21 urinalysis , dipstick, reflex micro 2017 018 [facility], [address], [address], [place], [address], 8 20:07:04 CMP, serum or plasma 2016 017 [facility], [address], [address], [place], [address], 8 19:46:50 magnesium, blood 2016 017 [facility], [address], [address], [place], [address], 8 19:46:50 phosphorus , blood 2016 017 [facility], [address], [address], [place], [address], 8 19:46:50 protein:cr eatinine ratio, urine 2016 017 [facility], [address], [address], [place], [address], 8 19:46:50 CBC w/ auto diff 2016 017 [facility], [address], [address], [place], [address], 03/20/201 8 19:46:50 urinalysis , dipstick, reflex micro 2016 017 [facility], [address] [place] [address], [address], [place], [address], 8 19:46:50 uric acid, serum or plasma 2016 017 [facility], [address] [place] [address] [address], [address], [place], [address], 8 19:46:51 Referral None recorded. Procedures None recorded. Surgeries None recorded. Imaging None recorded. Medication Orders losartan 50 mg tablet 2017 [email or web address] [facility], [address] [place] [address], [address], 9 12:17:21 Patient TargetsNo targets recorded. Patient InstructionsNo instructions recorded. Reason for Referral None Reported. Results Created Date Observation Date Name Description Value Unit Range Abnormal Flag Note LastModifiedBy Organization Detail LastModifiedTime 05/23/20 17 05/23/2017 lipid panel , serum color, urine straw Not Available [address], [address], [place], [address], 05/23/2017 17:03:45 05/23/20 17 05/23/2017 lipid panel , serum clarity, urine clear Not Available [address], [address], [place], [address], 05/23/2017 17:03:45 05/23/20 17 05/23/2017 lipid panel , serum pH, urine 1.006 Not Available [address], [place], [address], 05/23/2017 17:03:45 05/23/20 17 05/23/2017 lipid panel , serum protein, urine negati ve Not Available [facility] [address], [address], [place], [address], 05/23/2017 17:03:45 05/23/20 17 05/23/2017 lipid panel , serum glucose, urine negati ve Not Available [facility] [address], [address], [place], [address], 05/23/2017 17:03:45 05/23/20 17 05/23/2017 lipid panel , serum ketones, urine negati ve Not Available [facility] [address], [address], [place], [address], 05/23/2017 17:03:45 05/23/20 17 05/23/2017 lipid panel , serum bilirubin, urine negati ve Not Available [facility] [address], [address], [place], [address], 05/23/2017 17:03:45 05/23/20 17 05/23/2017 lipid panel , serum blood, urine negati ve Not Available [facility] [address], [address], [place], [address], 05/23/2017 17:03:45 05/23/20 17 05/23/2017 lipid panel , serum nitrite, urine negati ve Not Available [facility] [address], [address], [place], [address], 05/23/2017 17:03:45 05/23/20 17 05/23/2017 lipid panel , serum leukocyte esterase negati ve Not Available [facility] [address], [address], [place], [address], 05/23/2017 17:03:45 05/23/20 17 05/23/2017 lipid panel , serum urobilinogen , urine <2.0 Not Available [facility] [address], [address], [place], [address], 05/23/2017 17:03:45 05/23/20 17 05/23/2017 lipid panel , serum protein, urine, random 9.8 Not Available [facility] [address], [address], [place], [address], 05/23/2017 17:03:45 05/23/20 17 05/23/2017 lipid panel , serum creatinine, urine, random 24.9 Not Available [facility] [address], [address], [place], [address], 05/23/2017 17:03:45 05/23/20 17 05/23/2017 lipid panel , serum HGB 14.7 Not Available [facility] [address], [address], [place], [address], 05/23/2017 17:03:45 05/23/20 17 05/23/2017 lipid panel , serum HCT 44.5 Not Available [facility] [address], [address], [place], [address], 05/23/2017 17:03:45 05/23/20 17 05/23/2017 lipid panel , serum WBC 4.5 Not Available [facility] [address], [address], [place], [address], 05/23/2017 17:03:45 05/23/20 17 05/23/2017 lipid panel , serum plt 212 Not Available [facility] [address], [address], [place], [address], 05/23/2017 17:03:45 05/23/20 17 05/23/2017 lipid panel , serum sodium, serum 137 Not Available [facility] [address], [address], [place], [address], 05/23/2017 17:03:45 05/23/20 17 05/23/2017 lipid panel , serum potassium, serum 3.5 Not Available [facility] [address], [address], [place], [address], 05/23/2017 17:03:45 05/23/20 17 05/23/2017 lipid panel , serum chloride, serum 99 Not Available [facility] [address] [facility] [address], [address], [place], [address], 05/23/2017 17:03:45 05/23/20 17 05/23/2017 lipid panel , serum carbon dioxide 27 Not Available [facility] [address] [facility] [address], [address], [place], [address], 05/23/2017 17:03:45 05/23/20 17 05/23/2017 lipid panel , serum calcium, serum 9.0 Not Available [facility] [address] [facility] [address], [address], [place], [address], 05/23/2017 17:03:45 05/23/20 17 05/23/2017 lipid panel , serum glucose, serum 101 Not Available [facility] [address] [facility] [address], [address], [place], [address], 05/23/2017 17:03:45 05/23/20 17 05/23/2017 lipid panel , serum BUN 24 Not Available [facility] [address], [address], [place], [address], 05/23/2017 17:03:45 05/23/20 17 05/23/2017 lipid panel , serum creatinine 1.60 Not Available [facility] [address] [facility] [address], [address], [place], [address], 05/23/2017 17:03:45 05/23/20 17 05/23/2017 lipid panel , serum GFR 44 Not Available [facility] [address] [place], [address], [place], [address], 05/23/2017 17:03:45 05/23/20 17 05/23/2017 lipid panel , serum bilirubin, total 0.5 Not Available [facility] [address], [address], [place], [address], 05/23/2017 17:03:45 05/23/20 17 05/23/2017 lipid panel , serum alkaline phosphatase 43 Not Available [facility] [address], [address], [place], [address], 05/23/2017 17:03:45 05/23/20 17 05/23/2017 lipid panel , serum albumin, serum 4.1 Not Available [facility] [address], [address], [place], [address], 05/23/2017 17:03:45 05/23/20 17 05/23/2017 lipid panel , serum protein, total, serum 7.0 Not Available [facility] [address], [address], [place], [address], 05/23/2017 17:03:45 05/23/20 17 05/23/2017 lipid panel , serum magnesium 1.8 Not Available [facility] [address], [address], [place], [address], 05/23/2017 17:03:45 05/23/20 17 05/23/2017 lipid panel , serum phosphorus 2.8 Not Available [facility] [address], [address], [place], [address], 05/23/2017 17:03:45 05/23/20 17 05/23/2017 lipid panel , serum uric acid 6.1 Not Available [facility] [address], [address], [place], [address], 05/23/2017 17:03:45 05/23/20 17 05/23/2017 lipid panel , serum PSA, total 0.762 Not Available [facility] [address] [facility] [address], [address], [place], [address], 05/23/2017 17:03:45 05/23/20 17 05/23/2017 PSA, serum or plasm a color, urine straw Not Available [facility] [address] [facility] [address], [place], [address], 05/23/2017 17:03:45 05/23/20 17 05/23/2017 PSA, serum or plasm a clarity, urine clear Not Available [facility] [address] [facility] [address], [place], [address], 05/23/2017 17:03:45 05/23/20 17 05/23/2017 PSA, serum or plasm a pH, urine 1.006 Not Available [facility] [address] [facility] [address], [place], [address], 05/23/2017 17:03:45 05/23/20 17 05/23/2017 PSA, serum or plasm a protein, urine negati ve Not Available [facility] [address] [facility] [address], [place], [address], 05/23/2017 17:03:45 05/23/20 17 05/23/2017 PSA, serum or plasm a glucose, urine negati ve Not Available [facility] [address] [facility] [address], [place], [address], 05/23/2017 17:03:45 05/23/20 17 05/23/2017 PSA, serum or plasm a ketones, urine negati ve Not Available [facility] [address] [facility] [address], [place], [address], 05/23/2017 17:03:45 05/23/20 17 05/23/2017 PSA, serum or plasm a bilirubin, urine negati ve Not Available [facility] [address] [facility] [address], [address], [place], [address], 05/23/2017 17:03:45 05/23/20 17 05/23/2017 PSA, serum or plasm a blood, urine negati ve Not Available [facility] [address] [facility] [address], [place], [address], 05/23/2017 17:03:45 05/23/20 17 05/23/2017 PSA, serum or plasm a nitrite, urine negati ve Not Available [facility] [address] [facility] [address], [address], [place], [address], 05/23/2017 17:03:45 05/23/20 17 05/23/2017 PSA, serum or plasm a leukocyte esterase negati ve Not Available [facility] [address] [facility] [address], [place], [address], 05/23/2017 17:03:45 05/23/20 17 05/23/2017 PSA, serum or plasm a urobilinogen , urine <2.0 Not Available [facility] [address] [facility] [address], [place], [address], 05/23/2017 17:03:45 05/23/20 17 05/23/2017 PSA, serum or plasm a protein, urine, random 9.8 Not Available [facility] [address] [facility] [address], [place], [address], 05/23/2017 17:03:45 05/23/20 17 05/23/2017 PSA, serum or plasm a creatinine, urine, random 24.9 Not Available [facility] [address] [facility] [address], [place], [address], 05/23/2017 17:03:45 05/23/20 17 05/23/2017 PSA, serum or plasm a HGB 14.7 Not Available [facility] [address] [facility] [address], [address], [place], [address], 05/23/2017 17:03:45 05/23/20 17 05/23/2017 PSA, serum or plasm a HCT 44.5 Not Available [facility] [address] [facility] [address], [place], [address], 05/23/2017 17:03:45 05/23/20 17 05/23/2017 PSA, serum or plasm a WBC 4.5 Not Available [facility] [address] [facility] [address], [place], [address], 05/23/2017 17:03:45 05/23/20 17 05/23/2017 PSA, serum or plasm a plt 212 Not Available [facility] [address] [facility] [address], [place], [address], 05/23/2017 17:03:45 05/23/20 17 05/23/2017 PSA, serum or plasm a sodium, serum 137 Not Available [facility] [address] [facility] [address], [place], [address], 05/23/2017 17:03:45 05/23/20 17 05/23/2017 PSA, serum or plasm a potassium, serum 3.5 Not Available [facility] [address] [facility] [address], [place], [address], 05/23/2017 17:03:45 05/23/20 17 05/23/2017 PSA, serum or plasm a chloride, serum 99 Not Available [facility] [address] [facility] [address], [place], [address], 05/23/2017 17:03:45 05/23/20 17 05/23/2017 PSA, serum or plasm a carbon dioxide 27 Not Available [facility] [address] [facility] [address], [address], [place], [address], 05/23/2017 17:03:45 05/23/20 17 05/23/2017 PSA, serum or plasm a calcium, serum 9.0 Not Available [facility] [address] [facility] [address], [place], [address], 05/23/2017 17:03:45 05/23/20 17 05/23/2017 PSA, serum or plasm a glucose, serum 101 Not Available [facility] [address] [facility] [address], [place], [address], 05/23/2017 17:03:45 05/23/20 17 05/23/2017 PSA, serum or plasm a BUN 24 Not Available [facility] [address] [facility] [address], [place], [address], 05/23/2017 17:03:45 05/23/20 17 05/23/2017 PSA, serum or plasm a creatinine 1.60 Not Available [facility] [address] [facility] [address], [place], [address], 05/23/2017 17:03:45 05/23/20 17 05/23/2017 PSA, serum or plasm a GFR 44 Not Available [facility] [address] [facility] [address], [place], [address], 05/23/2017 17:03:45 05/23/20 17 05/23/2017 PSA, serum or plasm a bilirubin, total 0.5 Not Available [facility] [address] [facility] [address], [place], [address], 05/23/2017 17:03:45 05/23/20 17 05/23/2017 PSA, serum or plasm a alkaline phosphatase 43 Not Available [facility] [address] [facility] [address], [place], [address], 05/23/2017 17:03:45 05/23/20 17 05/23/2017 PSA, serum or plasm a albumin, serum 4.1 Not Available [address] [facility] [address], [address], [place], [address], 05/23/2017 17:03:45 05/23/20 17 05/23/2017 PSA, serum or plasm a protein, total, serum 7.0 Not Available [facility] [address] [facility] [address], [address], [place], [address], 05/23/2017 17:03:45 05/23/20 17 05/23/2017 PSA, serum or plasm a magnesium 1.8 Not Available [address] [facility] [address], [address], [place], [address], 05/23/2017 17:03:45 05/23/20 17 05/23/2017 PSA, serum or plasm a phosphorus 2.8 Not Available [address] [facility] [address], [address], [place], [address], 05/23/2017 17:03:45 05/23/20 17 05/23/2017 PSA, serum or plasm a uric acid 6.1 Not Available [address] [facility] [address], [address], [place], [address], 05/23/2017 17:03:45 05/23/20 17 05/23/2017 PSA, serum or plasm a PSA, total 0.762 Not Available [address] [facility] [address], [address], [place], [address], 05/23/2017 17:03:45 05/23/20 17 05/23/2017 uric acid, serum or plasm a color, urine straw Not Available [facility] [address] [facility] [address], [address], [place], [address], 05/23/2017 17:03:45 05/23/20 17 05/23/2017 uric acid, serum or plasm a clarity, urine clear Not Available [facility] [address] [facility] [address], [place], [address], 05/23/2017 17:03:45 05/23/20 17 05/23/2017 uric acid, serum or plasm a pH, urine 1.006 Not Available [facility] [address] [facility] [address], [place], [address], 05/23/2017 17:03:45 05/23/20 17 05/23/2017 uric acid, serum or plasm a protein, urine negati ve Not Available [facility] [address] [facility] [address], [place], [address], 05/23/2017 17:03:45 05/23/20 17 05/23/2017 uric acid, serum or plasm a glucose, urine negati ve Not Available [facility] [address] [facility] [address], [place], [address], 05/23/2017 17:03:45 05/23/20 17 05/23/2017 uric acid, serum or plasm a ketones, urine negati ve Not Available [facility] [address] [facility] [address], [place], [address], 05/23/2017 17:03:45 05/23/20 17 05/23/2017 uric acid, serum or plasm a bilirubin, urine negati ve Not Available [facility] [address] [facility] [address], [place], [address], 05/23/2017 17:03:45 05/23/20 17 05/23/2017 uric acid, serum or plasm a blood, urine negati ve Not Available [facility] [address] [facility] [address], [place], [address], 05/23/2017 17:03:45 05/23/20 17 05/23/2017 uric acid, serum or plasm a nitrite, urine negati ve Not Available [facility] [address] [facility] [address], [place], [address], 05/23/2017 17:03:45 05/23/20 17 05/23/2017 uric acid, serum or plasm a leukocyte esterase negati ve Not Available [facility] [address] [facility] [address], [address], [place], [address], 05/23/2017 17:03:45 05/23/20 17 05/23/2017 uric acid, serum or plasm a urobilinogen , urine <2.0 Not Available [facility] [address] [facility] [address], [place], [address], 05/23/2017 17:03:45 05/23/20 17 05/23/2017 uric acid, serum or plasm a protein, urine, random 9.8 Not Available [facility] [address] [facility] [address], [place], [address], 05/23/2017 17:03:45 05/23/20 17 05/23/2017 uric acid, serum or plasm a creatinine, urine, random 24.9 Not Available [facility] [address] [facility] [address], [place], [address], 05/23/2017 17:03:45 05/23/20 17 05/23/2017 uric acid, serum or plasm a HGB 14.7 Not Available [facility] [address] [facility] [address], [place], [address], 05/23/2017 17:03:45 05/23/20 17 05/23/2017 uric acid, serum or plasm a HCT 44.5 Not Available [facility] [address] [facility] [address], [place], [address], 05/23/2017 17:03:45 05/23/20 17 05/23/2017 uric acid, serum or plasm a WBC 4.5 Not Available [facility] [address] [facility] [address], [place], [address], 05/23/2017 17:03:45 05/23/20 17 05/23/2017 uric acid, serum or plasm a plt 212 Not Available [facility] [address] [facility] [address], [address], [place], [address], 05/23/2017 17:03:45 05/23/20 17 05/23/2017 uric acid, serum or plasm a sodium, serum 137 Not Available [facility] [address] [facility] [address], [address], [place], [address], 05/23/2017 17:03:45 05/23/20 17 05/23/2017 uric acid, serum or plasm a potassium, serum 3.5 Not Available [facility] [address] [facility] [address], [address], [place], [address], 05/23/2017 17:03:45 05/23/20 17 05/23/2017 uric acid, serum or plasm a chloride, serum 99 Not Available [facility] [address] [facility] [address], [place], [address], 05/23/2017 17:03:45 05/23/20 17 05/23/2017 uric acid, serum or plasm a carbon dioxide 27 Not Available [facility] [address] [facility] [address], [place], [address], 05/23/2017 17:03:45 05/23/20 17 05/23/2017 uric acid, serum or plasm a calcium, serum 9.0 Not Available [facility] [address] [facility] [address], [place], [address], 05/23/2017 17:03:45 05/23/20 17 05/23/2017 uric acid, serum or plasm a glucose, serum 101 Not Available [facility] 61 [facility] [address], [address], [place], [address], 05/23/2017 17:03:45 05/23/20 17 05/23/2017 uric acid, serum or plasm a BUN 24 Not Available [facility] 61 [facility] [address], [address], [place], [address], 05/23/2017 17:03:45 05/23/20 17 05/23/2017 uric acid, serum or plasm a creatinine 1.60 Not Available [facility] 61 [facility] [address], [address], [place], [address], 05/23/2017 17:03:45 05/23/20 17 05/23/2017 uric acid, serum or plasm a GFR 44 Not Available [facility] 61 [facility] [address], [address], [place], [address], 05/23/2017 17:03:45 05/23/20 17 05/23/2017 uric acid, serum or plasm a bilirubin, total 0.5 Not Available [facility] 61 [facility] [address], [address], [place], [address], 05/23/2017 17:03:45 05/23/20 17 05/23/2017 uric acid, serum or plasm a alkaline phosphatase 43 Not Available [facility] 61 [facility] [address], [address], [place], [address], 05/23/2017 17:03:45 05/23/20 17 05/23/2017 uric acid, serum or plasm a albumin, serum 4.1 Not Available [facility] [address], [address], [place], [address], 05/23/2017 17:03:45 05/23/20 17 05/23/2017 uric acid, serum or plasm a protein, total, serum 7.0 Not Available [facility] 61 [facility] [address], [address], [place], [address], 05/23/2017 17:03:45 05/23/20 17 05/23/2017 uric acid, serum or plasm a magnesium 1.8 Not Available [facility] 61 [facility] [address], [address], [place], [address], 05/23/2017 17:03:45 05/23/20 17 05/23/2017 uric acid, serum or plasm a phosphorus 2.8 Not Available [facility] [address] [place] [address] [address], [address], [place], [address], 05/23/2017 17:03:45 05/23/20 17 05/23/2017 uric acid, serum or plasm a uric acid 6.1 Not Available [facility] [address], [address], [place], [address], 05/23/2017 17:03:45 05/23/20 17 05/23/2017 uric acid, serum or plasm a PSA, total 0.762 Not Available [facility] 61 [facility] [address], [address], [place], [address], 05/23/2017 17:03:45 05/23/20 17 05/23/2017 phosp horus , blood color, urine straw Not Available [facility] [address], [address], [place], [address], 05/23/2017 17:03:45 05/23/20 17 05/23/2017 phosp horus , blood clarity, urine clear Not Available [facility] [address], [address], [place], [address], 05/23/2017 17:03:45 05/23/20 17 05/23/2017 phosp horus , blood pH, urine 1.006 Not Available [facility] [address], [address], [place], [address], 05/23/2017 17:03:45 05/23/20 17 05/23/2017 phosp horus , blood protein, urine negati ve Not Available [facility] [address], [address], [place], [address], 05/23/2017 17:03:45 05/23/20 17 05/23/2017 phosp horus , blood glucose, urine negati ve Not Available [facility] [address], [address], [place], [address], 05/23/2017 17:03:45 05/23/20 17 05/23/2017 phosp horus , blood ketones, urine negati ve Not Available [facility] [address], [address], [place], [address], 05/23/2017 17:03:45 05/23/20 17 05/23/2017 phosp horus , blood bilirubin, urine negati ve Not Available [facility] [address], [place], [address], 05/23/2017 17:03:45 05/23/20 17 05/23/2017 phosp horus , blood blood, urine negati ve Not Available [facility] [address], [address], [place], [address], 05/23/2017 17:03:45 05/23/20 17 05/23/2017 phosp horus , blood nitrite, urine negati ve Not Available [facility] [address], [address], [place], [address], 05/23/2017 17:03:45 05/23/20 17 05/23/2017 phosp horus , blood leukocyte esterase negati ve Not Available [facility] 61 [facility] [address], [address], [place], [address], 05/23/2017 17:03:45 05/23/20 17 05/23/2017 phosp horus , blood urobilinogen , urine <2.0 Not Available [facility] [address], [address], [place], [address], 05/23/2017 17:03:45 05/23/20 17 05/23/2017 phosp horus , blood protein, urine, random 9.8 Not Available [facility] 61 [facility] [address], [address], [place], [address], 05/23/2017 17:03:45 05/23/20 17 05/23/2017 phosp horus , blood creatinine, urine, random 24.9 Not Available [facility] [address], [address], [place], [address], 05/23/2017 17:03:45 05/23/20 17 05/23/2017 phosp horus , blood HGB 14.7 Not Available [facility] [address], [address], [place], [address], 05/23/2017 17:03:45 05/23/20 17 05/23/2017 phosp horus , blood HCT 44.5 Not Available [facility] [address], [place], [address], 05/23/2017 17:03:45 05/23/20 17 05/23/2017 phosp horus , blood WBC 4.5 Not Available [facility] [address], [address], [place], [address], 05/23/2017 17:03:45 05/23/20 17 05/23/2017 phosp horus , blood plt 212 Not Available [facility] [address], [address], [place], [address], 05/23/2017 17:03:45 05/23/20 17 05/23/2017 phosp horus , blood sodium, serum 137 Not Available [facility] [address], [address], [place], [address], 05/23/2017 17:03:45 05/23/20 17 05/23/2017 phosp horus , blood potassium, serum 3.5 Not Available [facility] [address], [address], [place], [address], 05/23/2017 17:03:45 05/23/20 17 05/23/2017 phosp horus , blood chloride, serum 99 Not Available [facility] [address], [place], [address], 05/23/2017 17:03:45 05/23/20 17 05/23/2017 phosp horus , blood carbon dioxide 27 Not Available [facility] [address], [address], [place], [address], 05/23/2017 17:03:45 05/23/20 17 05/23/2017 phosp horus , blood calcium, serum 9.0 Not Available [facility] [address], [place], [address], 05/23/2017 17:03:45 05/23/20 17 05/23/2017 phosp horus , blood glucose, serum 101 Not Available [facility] [address], [address], [place], [address], 05/23/2017 17:03:45 05/23/20 17 05/23/2017 phosp horus , blood BUN 24 Not Available [facility] 61 [facility] [address], [address], [place], [address], 05/23/2017 17:03:45 05/23/20 17 05/23/2017 phosp horus , blood creatinine 1.60 Not Available [facility] 61 [facility] [address], [address], [place], [address], 05/23/2017 17:03:45 05/23/20 17 05/23/2017 phosp horus , blood GFR 44 Not Available [facility] 61 [facility] [address], [address], [place], [address], 05/23/2017 17:03:45 05/23/20 17 05/23/2017 phosp horus , blood bilirubin, total 0.5 Not Available [facility] 61 [facility] [address], [address], [place], [address], 05/23/2017 17:03:45 05/23/20 17 05/23/2017 phosp horus , blood alkaline phosphatase 43 Not Available [facility] 61 [facility] [address], [address], [place], [address], 05/23/2017 17:03:45 05/23/20 17 05/23/2017 phosp horus , blood albumin, serum 4.1 Not Available [facility] 61 [facility] [address], [place], [address], 05/23/2017 17:03:45 05/23/20 17 05/23/2017 phosp horus , blood protein, total, serum 7.0 Not Available [facility] 61 [facility] [address], [address], [place], [address], 05/23/2017 17:03:45 05/23/20 17 05/23/2017 phosp horus , blood magnesium 1.8 Not Available [facility] 61 [facility] [address], [address], [place], [address], 05/23/2017 17:03:45 05/23/20 17 05/23/2017 phosp horus , blood phosphorus 2.8 Not Available [facility] 61 [facility] [address], [address], [place], [address], 05/23/2017 17:03:45 05/23/20 17 05/23/2017 phosp horus , blood uric acid 6.1 Not Available [facility] 61 [facility] [address], [address], [place], [address], 05/23/2017 17:03:45 05/23/20 17 05/23/2017 phosp horus , blood PSA, total 0.762 Not Available [facility] 61 [facility] [address], [address], [place], [address], 05/23/2017 17:03:45 05/23/20 17 05/23/2017 magne sium, blood color, urine straw Not Available [facility] 61 [facility] [address], [address], [place], [address], 05/23/2017 17:03:45 05/23/20 17 05/23/2017 magne sium, blood clarity, urine clear Not Available [facility] 61 [facility] [address], [address], [place], [address], 05/23/2017 17:03:45 05/23/20 17 05/23/2017 magne sium, blood pH, urine 1.006 Not Available [facility] 61 [facility] [address], [address], [place], [address], 05/23/2017 17:03:45 05/23/20 17 05/23/2017 magne sium, blood protein, urine negati ve Not Available [facility] 61 [facility] [address], [place], [address], 05/23/2017 17:03:45 05/23/20 17 05/23/2017 magne sium, blood glucose, urine negati ve Not Available [facility] 61 [facility] [address], [address], [place], [address], 05/23/2017 17:03:45 05/23/20 17 05/23/2017 magne sium, blood ketones, urine negati ve Not Available [facility] 61 [facility] [address], [address], [place], [address], 05/23/2017 17:03:45 05/23/20 17 05/23/2017 magne sium, blood bilirubin, urine negati ve Not Available [facility] 61 [facility] [address], [address], [place], [address], 05/23/2017 17:03:45 05/23/20 17 05/23/2017 magne sium, blood blood, urine negati ve Not Available [facility] 61 [facility] [address], [address], [place], [address], 05/23/2017 17:03:45 05/23/20 17 05/23/2017 magne sium, blood nitrite, urine negati ve Not Available [facility] 61 [facility] [address], [address], [place], [address], 05/23/2017 17:03:45 05/23/20 17 05/23/2017 magne sium, blood leukocyte esterase negati ve Not Available [facility] 61 [facility] [address], [address], [place], [address], 05/23/2017 17:03:45 05/23/20 17 05/23/2017 magne sium, blood urobilinogen , urine <2.0 Not Available [facility] 61 [facility] [address], [address], [place], [address], 05/23/2017 17:03:45 05/23/20 17 05/23/2017 magne sium, blood protein, urine, random 9.8 Not Available [facility] 61 [facility] [address], [address], [place], [address], 05/23/2017 17:03:45 05/23/20 17 05/23/2017 magne sium, blood creatinine, urine, random 24.9 Not Available [facility] 61 [facility] [address], [address], [place], [address], 05/23/2017 17:03:45 05/23/20 17 05/23/2017 magne sium, blood HGB 14.7 Not Available [facility] [address], [address], [place], [address], 05/23/2017 17:03:45 05/23/20 17 05/23/2017 magne sium, blood HCT 44.5 Not Available [facility] 61 [facility] [address], [address], [place], [address], 05/23/2017 17:03:45 05/23/20 17 05/23/2017 magne sium, blood WBC 4.5 Not Available [facility] [address], [place], [address], 05/23/2017 17:03:45 05/23/20 17 05/23/2017 magne sium, blood plt 212 Not Available [facility] [address], [place], [address], 05/23/2017 17:03:45 05/23/20 17 05/23/2017 magne sium, blood sodium, serum 137 Not Available [facility] [address] [facility] [address], [address], [place], [address], 05/23/2017 17:03:45 05/23/20 17 05/23/2017 magne sium, blood potassium, serum 3.5 Not Available [facility] [address] [facility] [address], [address], [place], [address], 05/23/2017 17:03:45 05/23/20 17 05/23/2017 magne sium, blood chloride, serum 99 Not Available [facility] [address] [facility] [address], [address], [place], [address], 05/23/2017 17:03:45 05/23/20 17 05/23/2017 magne sium, blood carbon dioxide 27 Not Available [facility] [address] [address], [address], [place], [address], 05/23/2017 17:03:45 05/23/20 17 05/23/2017 magne sium, blood calcium, serum 9.0 Not Available [facility] [address], [address], [place], [address], 05/23/2017 17:03:45 05/23/20 17 05/23/2017 magne sium, blood glucose, serum 101 Not Available [facility] [address], [address], [place], [address], 05/23/2017 17:03:45 05/23/20 17 05/23/2017 magne sium, blood BUN 24 Not Available [facility] [address], [address], [place], [address], 05/23/2017 17:03:45 05/23/20 17 05/23/2017 magne sium, blood creatinine 1.60 Not Available [facility] 61 [facility] [address], [address], [place], [address], 05/23/2017 17:03:45 05/23/20 17 05/23/2017 magne sium, blood GFR 44 Not Available [facility] [address], [address], [place], [address], 05/23/2017 17:03:45 05/23/20 17 05/23/2017 magne sium, blood bilirubin, total 0.5 Not Available [facility] [address], [place], [address], 05/23/2017 17:03:45 05/23/20 17 05/23/2017 magne sium, blood alkaline phosphatase 43 Not Available [facility] [address], [place], [address], 05/23/2017 17:03:45 05/23/20 17 05/23/2017 magne sium, blood albumin, serum 4.1 Not Available [facility] [address], [place], [address], 05/23/2017 17:03:45 05/23/20 17 05/23/2017 magne sium, blood protein, total, serum 7.0 Not Available [facility] [address], [place], [address], 05/23/2017 17:03:45 05/23/20 17 05/23/2017 magne sium, blood magnesium 1.8 Not Available [facility] [address], [place], [address], 05/23/2017 17:03:45 05/23/20 17 05/23/2017 magne sium, blood phosphorus 2.8 Not Available [facility] [address], [address], [place], [address], 05/23/2017 17:03:45 05/23/20 17 05/23/2017 magne sium, blood uric acid 6.1 Not Available [facility] 61 [facility] [address], [address], [place], [address], 05/23/2017 17:03:45 05/23/20 17 05/23/2017 magne sium, blood PSA, total 0.762 Not Available [facility] 61 [facility] [address], [address], [place], [address], 05/23/2017 17:03:45 05/23/20 17 05/23/2017 CMP, serum or plasm a color, urine straw Not Available [facility] 61 [facility] [address], [address], [place], [address], 05/23/2017 17:03:45 05/23/20 17 05/23/2017 CMP, serum or plasm a clarity, urine clear Not Available [facility] 61 [facility] [address], [address], [place], [address], 05/23/2017 17:03:45 05/23/20 17 05/23/2017 CMP, serum or plasm a pH, urine 1.006 Not Available [facility] [address], [place], [address], 05/23/2017 17:03:45 05/23/20 17 05/23/2017 CMP, serum or plasm a protein, urine negati ve Not Available [facility] [address], [address], [place], [address], 05/23/2017 17:03:45 05/23/20 17 05/23/2017 CMP, serum or plasm a glucose, urine negati ve Not Available [facility] [address], [place], [address], 05/23/2017 17:03:45 05/23/20 17 05/23/2017 CMP, serum or plasm a ketones, urine negati ve Not Available [facility] 61 [facility] [address], [address], [place], [address], 05/23/2017 17:03:45 05/23/20 17 05/23/2017 CMP, serum or plasm a bilirubin, urine negati ve Not Available [facility] [address], [place], [address], 05/23/2017 17:03:45 05/23/20 17 05/23/2017 CMP, serum or plasm a blood, urine negati ve Not Available [facility] [address], [place], [address], 05/23/2017 17:03:45 05/23/20 17 05/23/2017 CMP, serum or plasm a nitrite, urine negati ve Not Available [facility] [address], [place], [address], 05/23/2017 17:03:45 05/23/20 17 05/23/2017 CMP, serum or plasm a leukocyte esterase negati ve Not Available [facility] [address], [address], [place], [address], 05/23/2017 17:03:45 05/23/20 17 05/23/2017 CMP, serum or plasm a urobilinogen , urine <2.0 Not Available [facility] [address], [place], [address], 05/23/2017 17:03:45 05/23/20 17 05/23/2017 CMP, serum or plasm a protein, urine, random 9.8 Not Available [facility] [address], [place], [address], 05/23/2017 17:03:45 05/23/20 17 05/23/2017 CMP, serum or plasm a creatinine, urine, random 24.9 Not Available [facility] 61 [facility] [address], [address], [place], [address], 05/23/2017 17:03:45 05/23/20 17 05/23/2017 CMP, serum or plasm a HGB 14.7 Not Available [facility] [address], [place], [address], 05/23/2017 17:03:45 05/23/20 17 05/23/2017 CMP, serum or plasm a HCT 44.5 Not Available [facility] [address], [place], [address], 05/23/2017 17:03:45 05/23/20 17 05/23/2017 CMP, serum or plasm a WBC 4.5 Not Available [facility] [address], [place], [address], 05/23/2017 17:03:45 05/23/20 17 05/23/2017 CMP, serum or plasm a plt 212 Not Available [facility] [address], [address], [place], [address], 05/23/2017 17:03:45 05/23/20 17 05/23/2017 CMP, serum or plasm a sodium, serum 137 Not Available [facility] [address], [place], [address], 05/23/2017 17:03:45 05/23/20 17 05/23/2017 CMP, serum or plasm a potassium, serum 3.5 Not Available [facility] [address], [place], [address], 05/23/2017 17:03:45 05/23/20 17 05/23/2017 CMP, serum or plasm a chloride, serum 99 Not Available [facility] 61 [facility] [address], [address], [place], [address], 05/23/2017 17:03:45 05/23/20 17 05/23/2017 CMP, serum or plasm a carbon dioxide 27 Not Available [facility] [address], [address], [place], [address], 05/23/2017 17:03:45 05/23/20 17 05/23/2017 CMP, serum or plasm a calcium, serum 9.0 Not Available [facility] 61 [facility] [address], [address], [place], [address], 05/23/2017 17:03:45 05/23/20 17 05/23/2017 CMP, serum or plasm a glucose, serum 101 Not Available [facility] [address] [facility], [place], [address], 05/23/2017 17:03:45 05/23/20 17 05/23/2017 CMP, serum or plasm a BUN 24 Not Available [facility] [address] [facility] [address], [place], [address], 05/23/2017 17:03:45 05/23/20 17 05/23/2017 CMP, serum or plasm a creatinine 1.60 Not Available [facility] 61 [facility] [address], [place], [address], 05/23/2017 17:03:45 05/23/20 17 05/23/2017 CMP, serum or plasm a GFR 44 Not Available [facility] [address] [facility] [address], [place], [address], 05/23/2017 17:03:45 05/23/20 17 05/23/2017 CMP, serum or plasm a bilirubin, total 0.5 Not Available [address], [place], [address], 05/23/2017 17:03:45 05/23/20 17 05/23/2017 CMP, serum or plasm a alkaline phosphatase 43 Not Available [facility] [address] [place] [address] [address], [address], [place], [address], 05/23/2017 17:03:45 05/23/20 17 05/23/2017 CMP, serum or plasm a albumin, serum 4.1 Not Available [facility] [address] [facility] [address], [address], [place], [address], 05/23/2017 17:03:45 05/23/20 17 05/23/2017 CMP, serum or plasm a protein, total, serum 7.0 Not Available [address], [address], [place], [address], 05/23/2017 17:03:45 05/23/20 17 05/23/2017 CMP, serum or plasm a magnesium 1.8 Not Available [address], [address], [place], [address], 05/23/2017 17:03:45 05/23/20 17 05/23/2017 CMP, serum or plasm a phosphorus 2.8 Not Available [address], [address], [place], [address], 05/23/2017 17:03:45 05/23/20 17 05/23/2017 CMP, serum or plasm a uric acid 6.1 Not Available [address], [address], [place], [address], 05/23/2017 17:03:45 05/23/20 17 05/23/2017 CMP, serum or plasm a PSA, total 0.762 Not Available [facility] [address], [place], [address], 05/23/2017 17:03:45 05/23/20 17 05/23/2017 CBC w/ auto diff color, urine straw Not Available [facility] 61 [facility] [address], [address], [place], [address], 05/23/2017 17:03:45 05/23/20 17 05/23/2017 CBC w/ auto diff clarity, urine clear Not Available [facility] [address], [place], [address], 05/23/2017 17:03:45 05/23/20 17 05/23/2017 CBC w/ auto diff pH, urine 1.006 Not Available [facility] [address], [place], [address], 05/23/2017 17:03:45 05/23/20 17 05/23/2017 CBC w/ auto diff protein, urine negati ve Not Available [facility] [address] [address], [place], [address], 05/23/2017 17:03:45 05/23/20 17 05/23/2017 CBC w/ auto diff glucose, urine negati ve Not Available [facility] [address], [address], [place], [address], 05/23/2017 17:03:45 05/23/20 17 05/23/2017 CBC w/ auto diff ketones, urine negati ve Not Available [facility] [address], [address], [place], [address], 05/23/2017 17:03:45 05/23/20 17 05/23/2017 CBC w/ auto diff bilirubin, urine negati ve Not Available [facility] 61 [facility] [address], [address], [place], [address], 05/23/2017 17:03:45 05/23/20 17 05/23/2017 CBC w/ auto diff blood, urine negati ve Not Available [facility] 61 [facility] [address], [address], [place], [address], 05/23/2017 17:03:45 05/23/20 17 05/23/2017 CBC w/ auto diff nitrite, urine negati ve Not Available [facility] [address], [address], [place], [address], 05/23/2017 17:03:45 05/23/20 17 05/23/2017 CBC w/ auto diff leukocyte esterase negati ve Not Available [facility] [address] [facility] [address], [address], [place], [address], 05/23/2017 17:03:45 05/23/20 17 05/23/2017 CBC w/ auto diff urobilinogen , urine <2.0 Not Available [facility] [address], [address], [place], [address], 05/23/2017 17:03:45 05/23/20 17 05/23/2017 CBC w/ auto diff protein, urine, random 9.8 Not Available [facility] [address], [address], [place], [address], 05/23/2017 17:03:45 05/23/20 17 05/23/2017 CBC w/ auto diff creatinine, urine, random 24.9 Not Available [facility] [address], [address], [place], [address], 05/23/2017 17:03:45 05/23/20 17 05/23/2017 CBC w/ auto diff HGB 14.7 Not Available [facility] [address] [facility] [address], [address], [place], [address], 05/23/2017 17:03:45 05/23/20 17 05/23/2017 CBC w/ auto diff HCT 44.5 Not Available [facility] [address] [facility] [address], [address], [place], [address], 05/23/2017 17:03:45 05/23/20 17 05/23/2017 CBC w/ auto diff WBC 4.5 Not Available [facility] [address] [facility] [address], [address], [place], [address], 05/23/2017 17:03:45 05/23/20 17 05/23/2017 CBC w/ auto diff plt 212 Not Available [facility] [address] [facility] [address], [address], [place], [address], 05/23/2017 17:03:45 05/23/20 17 05/23/2017 CBC w/ auto diff sodium, serum 137 Not Available [facility] [address] [facility] [address], [address], [place], [address], 05/23/2017 17:03:45 05/23/20 17 05/23/2017 CBC w/ auto diff potassium, serum 3.5 Not Available [facility] [address] [facility] [address], [address], [place], [address], 05/23/2017 17:03:45 05/23/20 17 05/23/2017 CBC w/ auto diff chloride, serum 99 Not Available [facility] [address] [facility] [address], [address], [place], [address], 05/23/2017 17:03:45 05/23/20 17 05/23/2017 CBC w/ auto diff carbon dioxide 27 Not Available [facility] [address] [facility] [address], [address], [place], [address], 05/23/2017 17:03:45 05/23/20 17 05/23/2017 CBC w/ auto diff calcium, serum 9.0 Not Available [facility] [address] [facility] [address], [address], [place], [address], 05/23/2017 17:03:45 05/23/20 17 05/23/2017 CBC w/ auto diff glucose, serum 101 Not Available [facility] [address], [address], [place], [address], 05/23/2017 17:03:45 05/23/20 17 05/23/2017 CBC w/ auto diff BUN 24 Not Available [facility] [address] [facility] [address], [address], [place], [address], 05/23/2017 17:03:45 05/23/20 17 05/23/2017 CBC w/ auto diff creatinine 1.60 Not Available [facility] [address], [address], [place], [address], 05/23/2017 17:03:45 05/23/20 17 05/23/2017 CBC w/ auto diff GFR 44 Not Available [facility] [address] [facility] [address], [address], [place], [address], 05/23/2017 17:03:45 05/23/20 17 05/23/2017 CBC w/ auto diff bilirubin, total 0.5 Not Available [facility] [address] [facility] [address], [address], [place], [address], 05/23/2017 17:03:45 05/23/20 17 05/23/2017 CBC w/ auto diff alkaline phosphatase 43 Not Available [facility] [address] [facility], [address], [place], [address], 05/23/2017 17:03:45 05/23/20 17 05/23/2017 CBC w/ auto diff albumin, serum 4.1 Not Available [address], [address], [place], [address], 05/23/2017 17:03:45 05/23/20 17 05/23/2017 CBC w/ auto diff protein, total, serum 7.0 Not Available [address], [address], [place], [address], 05/23/2017 17:03:45 05/23/20 17 05/23/2017 CBC w/ auto diff magnesium 1.8 Not Available [facility] 61 [facility] [address], [address], [place], [address], 05/23/2017 17:03:45 05/23/20 17 05/23/2017 CBC w/ auto diff phosphorus 2.8 Not Available [address], [address], [place], [address], 05/23/2017 17:03:45 05/23/20 17 05/23/2017 CBC w/ auto diff uric acid 6.1 Not Available [address], [address], [place], [address], 05/23/2017 17:03:45 05/23/20 17 05/23/2017 CBC w/ auto diff PSA, total 0.762 Not Available [address], [address], [place], [address], 05/23/2017 17:03:45 05/23/20 17 05/23/2017 prote in:cr eatin ine ratio , urine color, urine straw Not Available [facility] [address] [facility] [address], [address], [place], [address], 05/23/2017 17:03:44 05/23/20 17 05/23/2017 prote in:cr eatin ine ratio , urine clarity, urine clear Not Available [facility] [address] [facility] [address], [address], [place], [address], 05/23/2017 17:03:44 05/23/20 17 05/23/2017 prote in:cr eatin ine ratio , urine pH, urine 1.006 Not Available [facility] [address] [facility] [address], [address], [place], [address], 05/23/2017 17:03:44 05/23/20 17 05/23/2017 prote in:cr eatin ine ratio , urine protein, urine negati ve Not Available [facility] [address] [facility] [address], [address], [place], [address], 05/23/2017 17:03:44 05/23/20 17 05/23/2017 prote in:cr eatin ine ratio , urine glucose, urine negati ve Not Available [facility] [address] [facility] [address], [address], [place], [address], 05/23/2017 17:03:44 05/23/20 17 05/23/2017 prote in:cr eatin ine ratio , urine ketones, urine negati ve Not Available [facility] [address] [facility] [address], [address], [place], [address], 05/23/2017 17:03:44 05/23/20 17 05/23/2017 prote in:cr eatin ine ratio , urine bilirubin, urine negati ve Not Available [facility] [address] [facility] [address], [address], [place], [address], 05/23/2017 17:03:44 05/23/20 17 05/23/2017 prote in:cr eatin ine ratio , urine blood, urine negati ve Not Available [facility] [address] [facility] [address], [address], [place], [address], 05/23/2017 17:03:44 05/23/20 17 05/23/2017 prote in:cr eatin ine ratio , urine nitrite, urine negati ve Not Available [facility] [address], [address], [place], [address], 05/23/2017 17:03:44 05/23/20 17 05/23/2017 prote in:cr eatin ine ratio , urine leukocyte esterase negati ve Not Available [facility] [address] [facility] [address], [address], [place], [address], 05/23/2017 17:03:44 05/23/20 17 05/23/2017 prote in:cr eatin ine ratio , urine urobilinogen , urine <2.0 Not Available [facility] [address] [facility] [address], [address], [place], [address], 05/23/2017 17:03:44 05/23/20 17 05/23/2017 prote in:cr eatin ine ratio , urine protein, urine, random 9.8 Not Available [facility] [address], [address], [place], [address], 05/23/2017 17:03:44 05/23/20 17 05/23/2017 prote in:cr eatin ine ratio , urine creatinine, urine, random 24.9 Not Available [facility] [address], [address], [place], [address], 05/23/2017 17:03:44 05/23/20 17 05/23/2017 prote in:cr eatin ine ratio , urine HGB 14.7 Not Available [facility] [address], [address], [place], [address], 05/23/2017 17:03:44 05/23/20 17 05/23/2017 prote in:cr eatin ine ratio , urine HCT 44.5 Not Available [facility] [address], [address], [place], [address], 05/23/2017 17:03:44 05/23/20 17 05/23/2017 prote in:cr eatin ine ratio , urine WBC 4.5 Not Available [facility] 61 [facility] [address], [address], [place], [address], 05/23/2017 17:03:44 05/23/20 17 05/23/2017 prote in:cr eatin ine ratio , urine plt 212 Not Available [facility] [address] [facility] [address], [address], [place], [address], 05/23/2017 17:03:44 05/23/20 17 05/23/2017 prote in:cr eatin ine ratio , urine sodium, serum 137 Not Available [facility] [address] [facility] [address], [address], [place], [address], 05/23/2017 17:03:44 05/23/20 17 05/23/2017 prote in:cr eatin ine ratio , urine potassium, serum 3.5 Not Available [facility] [address] [facility] [address], [address], [place], [address], 05/23/2017 17:03:44 05/23/20 17 05/23/2017 prote in:cr eatin ine ratio , urine chloride, serum 99 Not Available [facility] [address] [facility] [address], [address], [place], [address], 05/23/2017 17:03:44 05/23/20 17 05/23/2017 prote in:cr eatin ine ratio , urine carbon dioxide 27 Not Available [facility] [address] [facility] [address], [address], [place], [address], 05/23/2017 17:03:44 05/23/20 17 05/23/2017 prote in:cr eatin ine ratio , urine calcium, serum 9.0 Not Available [facility] [address] [facility] [address], [address], [place], [address], 05/23/2017 17:03:44 05/23/20 17 05/23/2017 prote in:cr eatin ine ratio , urine glucose, serum 101 Not Available [facility] [address] [facility] [address], [address], [place], [address], 05/23/2017 17:03:44 05/23/20 17 05/23/2017 prote in:cr eatin ine ratio , urine BUN 24 Not Available [facility] [address] [facility] [address], [address], [place], [address], 05/23/2017 17:03:44 05/23/20 17 05/23/2017 prote in:cr eatin ine ratio , urine creatinine 1.60 Not Available [facility] [address] [facility] [address], [address], [place], [address], 05/23/2017 17:03:44 05/23/20 17 05/23/2017 prote in:cr eatin ine ratio , urine GFR 44 Not Available [facility] [address] [facility] [address], [address], [place], [address], 05/23/2017 17:03:44 05/23/20 17 05/23/2017 prote in:cr eatin ine ratio , urine bilirubin, total 0.5 Not Available [facility] [address] [facility] [address], [address], [place], [address], 05/23/2017 17:03:44 05/23/20 17 05/23/2017 prote in:cr eatin ine ratio , urine alkaline phosphatase 43 Not Available [facility] 61 [facility] [address], [address], [place], [address], 05/23/2017 17:03:44 05/23/20 17 05/23/2017 prote in:cr eatin ine ratio , urine albumin, serum 4.1 Not Available [facility] [address] [facility] [address], [address], [place], [address], 05/23/2017 17:03:44 05/23/20 17 05/23/2017 prote in:cr eatin ine ratio , urine protein, total, serum 7.0 Not Available [facility] [address] [facility] [address], [address], [place], [address], 05/23/2017 17:03:44 05/23/20 17 05/23/2017 prote in:cr eatin ine ratio , urine magnesium 1.8 Not Available [facility] 61 [facility] [address], [address], [place], [address], 05/23/2017 17:03:44 05/23/20 17 05/23/2017 prote in:cr eatin ine ratio , urine phosphorus 2.8 Not Available [facility] 61 [facility] [address], [address], [place], [address], 05/23/2017 17:03:44 05/23/20 17 05/23/2017 prote in:cr eatin ine ratio , urine uric acid 6.1 Not Available [facility] 61 [facility] [address], [address], [place], [address], 05/23/2017 17:03:44 05/23/20 17 05/23/2017 prote in:cr eatin ine ratio , urine PSA, total 0.762 Not Available [facility] [address] [facility] [address], [address], [place], [address], 05/23/2017 17:03:44 05/23/20 17 05/23/2017 urina lysis , dipst ick, refle x micro color, urine straw Not Available [facility] [address], [address], [place], [address], 05/23/2017 15:47:58 05/23/20 17 05/23/2017 urina lysis , dipst ick, refle x micro clarity, urine clear Not Available [facility] [address], [address], [place], [address], 05/23/2017 15:47:58 05/23/20 17 05/23/2017 urina lysis , dipst ick, refle x micro pH, urine 1.006 Not Available [facility] 61 [facility] [address], [address], [place], [address], 05/23/2017 15:47:58 05/23/20 17 05/23/2017 urina lysis , dipst ick, refle x micro protein, urine negati ve Not Available [address], [address], [place], [address], 05/23/2017 15:47:58 05/23/20 17 05/23/2017 urina lysis , dipst ick, refle x micro glucose, urine negati ve Not Available [facility] 61 [facility] [address], [address], [place], [address], 05/23/2017 15:47:58 05/23/20 17 05/23/2017 urina lysis , dipst ick, refle x micro ketones, urine negati ve Not Available [facility] [address] [place] [address] [address], [address], [place], [address], 05/23/2017 15:47:58 05/23/20 17 05/23/2017 urina lysis , dipst ick, refle x micro bilirubin, urine negati ve Not Available [facility] 61 [facility] [address], [address], [place], [address], 05/23/2017 15:47:58 05/23/20 17 05/23/2017 urina lysis , dipst ick, refle x micro blood, urine negati ve Not Available [facility] 61 [facility] [address], [address], [place], [address], 05/23/2017 15:47:58 05/23/20 17 05/23/2017 urina lysis , dipst ick, refle x micro nitrite, urine negati ve Not Available [facility] 61 [facility] [address], [address], [place], [address], 05/23/2017 15:47:58 05/23/20 17 05/23/2017 urina lysis , dipst ick, refle x micro leukocyte esterase negati ve Not Available [facility] 61 [facility] [address], [address], [place], [address], 05/23/2017 15:47:58 05/23/20 17 05/23/2017 urina lysis , dipst ick, refle x micro urobilinogen , urine <2.0 Not Available [address], [address], [place], [address], 05/23/2017 15:47:58 05/23/20 17 05/23/2017 urina lysis , dipst ick, refle x micro protein, urine, random 9.8 Not Available [address], [address], [place], [address], 05/23/2017 15:47:58 05/23/20 17 05/23/2017 urina lysis , dipst ick, refle x micro creatinine, urine, random 24.9 Not Available [facility] 61 [facility] [address], [address], [place], [address], 05/23/2017 15:47:58 05/23/20 17 05/23/2017 urina lysis , dipst ick, refle x micro HGB 14.7 Not Available [facility] 61 [facility] [address], [address], [place], [address], 05/23/2017 15:47:58 05/23/20 17 05/23/2017 urina lysis , dipst ick, refle x micro HCT 44.5 Not Available [facility] [address], [address], [place], [address], 05/23/2017 15:47:58 05/23/20 17 05/23/2017 urina lysis , dipst ick, refle x micro WBC 4.5 Not Available [facility] 61 [facility] [address], [address], [place], [address], 05/23/2017 15:47:58 05/23/20 17 05/23/2017 urina lysis , dipst ick, refle x micro plt 212 Not Available [facility] 61 [facility] [address], [address], [place], [address], 05/23/2017 15:47:58 05/23/20 17 05/23/2017 urina lysis , dipst ick, refle x micro sodium, serum 137 Not Available [facility] [address], [address], [place], [address], 05/23/2017 15:47:58 05/23/20 17 05/23/2017 urina lysis , dipst ick, refle x micro potassium, serum 3.5 Not Available [facility] [address], [address], [place], [address], 05/23/2017 15:47:58 05/23/20 17 05/23/2017 urina lysis , dipst ick, refle x micro chloride, serum 99 Not Available [facility] 61 [facility] [address], [address], [place], [address], 05/23/2017 15:47:58 05/23/20 17 05/23/2017 urina lysis , dipst ick, refle x micro carbon dioxide 27 Not Available [facility] 61 [facility] [address], [address], [place], [address], 05/23/2017 15:47:58 05/23/20 17 05/23/2017 urina lysis , dipst ick, refle x micro calcium, serum 9.0 Not Available [facility] [address], [address], [place], [address], 05/23/2017 15:47:58 05/23/20 17 05/23/2017 urina lysis , dipst ick, refle x micro glucose, serum 101 Not Available [facility] 61 [facility] [address], [address], [place], [address], 05/23/2017 15:47:58 05/23/20 17 05/23/2017 urina lysis , dipst ick, refle x micro BUN 24 Not Available [facility] 61 [facility] [address], [address], [place], [address], 05/23/2017 15:47:58 05/23/20 17 05/23/2017 urina lysis , dipst ick, refle x micro creatinine 1.60 Not Available [facility] [address], [address], [place], [address], 05/23/2017 15:47:58 05/23/20 17 05/23/2017 urina lysis , dipst ick, refle x micro GFR 44 Not Available [facility] [address] [facility] [address], [address], [place], [address], 05/23/2017 15:47:58 05/23/20 17 05/23/2017 urina lysis , dipst ick, refle x micro bilirubin, total 0.5 Not Available [facility] [address], [address], [place], [address], 05/23/2017 15:47:58 05/23/20 17 05/23/2017 urina lysis , dipst ick, refle x micro alkaline phosphatase 43 Not Available [facility] [address] [place], [place] [address]za [facility] [address], [address], [place], [address], 05/23/2017 15:47:58 05/23/20 17 05/23/2017 urina lysis , dipst ick, refle x micro albumin, serum 4.1 Not Available [address] [facility] [address], [address], [place], [address], 05/23/2017 15:47:58 05/23/20 17 05/23/2017 urina lysis , dipst ick, refle x micro protein, total, serum 7.0 Not Available [address] [facility] [address], [address], [place], [address], 05/23/2017 15:47:58 05/23/20 17 05/23/2017 urina lysis , dipst ick, refle x micro magnesium 1.8 Not Available [address] [facility] [address], [address], [place], [address], 05/23/2017 15:47:58 05/23/20 17 05/23/2017 urina lysis , dipst ick, refle x micro phosphorus 2.8 Not Available [address] [facility] [address], [address], [place], [address], 05/23/2017 15:47:58 05/23/20 17 05/23/2017 urina lysis , dipst ick, refle x micro uric acid 6.1 Not Available [address] [facility] [address], [address], [place], [address], 05/23/2017 15:47:58 05/23/20 17 05/23/2017 urina lysis , dipst ick, refle x micro PSA, total 0.762 Not Available [facility] [address] [facility] [address], [address], [place], [address], 05/23/2017 15:47:58 11/16/19 18 11/15/2017 urina lysis , dipst ick, refle x micro color, urine light, yellow Not Available [facility] [address], [address], [place], [address], 11/18/2017 15:55:55 11/16/19 18 11/15/2017 urina lysis , dipst ick, refle x micro clarity, urine clear Not Available [facility] [address], [address], [place], [address], 11/18/2017 15:55:55 11/16/19 18 11/15/2017 urina lysis , dipst ick, refle x micro pH, urine 6.0 Not Available [facility] [address], [address], [place], [address], 11/18/2017 15:55:55 11/16/19 18 11/15/2017 urina lysis , dipst ick, refle x micro specific gravity, urine 1.010 Not Available [facility] [address], [address], [place], [address], 11/18/2017 15:55:55 11/16/19 18 11/15/2017 urina lysis , dipst ick, refle x micro protein, total, urine 30 Not Available [facility] [address], [address], [place], [address], 11/18/2017 15:55:55 11/16/19 18 11/15/2017 urina lysis , dipst ick, refle x micro glucose, urine negati ve Not Available [facility] [address], [address], [place], [address], 11/18/2017 15:55:55 11/16/19 18 11/15/2017 urina lysis , dipst ick, refle x micro ketones, urine negati ve Not Available [facility] 61 [facility] [address], [address], [place], [address], 11/18/2017 15:55:55 11/16/19 18 11/15/2017 urina lysis , dipst ick, refle x micro bilirubin, urine negati ve Not Available [facility] [address] [facility] [address], [address], [place], [address], 11/18/2017 15:55:55 11/16/19 18 11/15/2017 urina lysis , dipst ick, refle x micro blood, urine negati ve Not Available [facility] [address], [address], [place], [address], 11/18/2017 15:55:55 11/16/19 18 11/15/2017 urina lysis , dipst ick, refle x micro nitrite, urine negati ve Not Available [facility] [address] [facility] [address], [address], [place], [address], 11/18/2017 15:55:55 11/16/19 18 11/15/2017 urina lysis , dipst ick, refle x micro leukocyte esterase, urine negati ve Not Available [facility] [address] [facility] [address], [address], [place], [address], 11/18/2017 15:55:55 11/16/19 18 11/15/2017 urina lysis , dipst ick, refle x micro urobilinogen , urine <2.0 Not Available [facility] [address], [address], [place], [address], 11/18/2017 15:55:55 11/16/19 18 11/15/2017 urina lysis , dipst ick, refle x micro WBC casts, urine <1 Not Available [address], [place], [address], 11/18/2017 15:55:55 11/16/19 18 11/15/2017 urina lysis , dipst ick, refle x micro red blood cells, urine 0 Not Available [facility] [address], [address], [place], [address], 11/18/2017 15:55:55 11/16/19 18 11/15/2017 urina lysis , dipst ick, refle x micro epithelial cells, urine <1 Not Available [address], [address], [place], [address], 11/18/2017 15:55:55 11/16/19 18 11/15/2017 urina lysis , dipst ick, refle x micro protein, urine, random 10.1 Not Available [address], [address], [place], [address], 11/18/2017 15:55:55 11/16/19 18 11/15/2017 urina lysis , dipst ick, refle x micro creatinine, urine, random 48.7 Not Available [address], [address], [place], [address], 11/18/2017 15:55:55 11/16/19 18 11/15/2017 urina lysis , dipst ick, refle x micro HGB 15.3 Not Available [address], [address], [place], [address], 11/18/2017 15:55:55 11/16/19 18 11/15/2017 urina lysis , dipst ick, refle x micro HCT 44.1 Not Available [address], [address], [place], [address], 11/18/2017 15:55:55 11/16/19 18 11/15/2017 urina lysis , dipst ick, refle x micro WBC 6.6 Not Available [facility] [address] [facility] [address], [address], [place], [address], 11/18/2017 15:55:55 11/16/19 18 11/15/2017 urina lysis , dipst ick, refle x micro plt 275 Not Available [facility] [address] [facility] [address], [address], [place], [address], 11/18/2017 15:55:55 11/16/19 18 11/15/2017 urina lysis , dipst ick, refle x micro sodium, serum 137 Not Available [facility] [address] [facility] [address], [address], [place], [address], 11/18/2017 15:55:55 11/16/19 18 11/15/2017 urina lysis , dipst ick, refle x micro potassium, seerum 4.0 Not Available [facility] [address] [facility] [address], [address], [place], [address], 11/18/2017 15:55:55 11/16/19 18 11/15/2017 urina lysis , dipst ick, refle x micro chloride, serum 96 Not Available [facility] [address] [facility] [address], [address], [place], [address], 11/18/2017 15:55:55 11/16/19 18 11/15/2017 urina lysis , dipst ick, refle x micro carbon dioxide 27 Not Available [facility] [address] [facility] [address], [address], [place], [address], 11/18/2017 15:55:55 11/16/19 18 11/15/2017 urina lysis , dipst ick, refle x micro calcium, serum 9.5 Not Available [facility] [address], [address], [place], [address], 11/18/2017 15:55:55 11/16/19 18 11/15/2017 urina lysis , dipst ick, refle x micro glucose, serum 92 Not Available [facility] [address], [address], [place], [address], 11/18/2017 15:55:55 11/16/19 18 11/15/2017 urina lysis , dipst ick, refle x micro BUN 27 Not Available [facility] [address], [address], [place], [address], 11/18/2017 15:55:55 11/16/19 18 11/15/2017 urina lysis , dipst ick, refle x micro creatinine 1.63 Not Available [facility] [address], [address], [place], [address], 11/18/2017 15:55:55 11/16/19 18 11/15/2017 urina lysis , dipst ick, refle x micro GFR 43 Not Available [facility] [address], [address], [place], [address], 11/18/2017 15:55:55 11/16/19 18 11/15/2017 urina lysis , dipst ick, refle x micro bilirubin, total 0.6 Not Available [facility] [address], [address], [place], [address], 11/18/2017 15:55:55 11/16/19 18 11/15/2017 urina lysis , dipst ick, refle x micro albumin, serum 4.5 Not Available [facility] [address], [address], [place], [address], 11/18/2017 15:55:55 11/16/19 18 11/15/2017 urina lysis , dipst ick, refle x micro protein, total, serum 7.5 Not Available [address], [address], [place], [address], 11/18/2017 15:55:55 11/16/19 18 11/15/2017 urina lysis , dipst ick, refle x micro magnesium 1.8 Not Available [address], [address], [place], [address], 11/18/2017 15:55:55 11/16/19 18 11/15/2017 urina lysis , dipst ick, refle x micro phosphorus 3.6 Not Available [address], [address], [place], [address], 11/18/2017 15:55:55 11/16/19 18 11/15/2017 urina lysis , dipst ick, refle x micro uric acid 5.6 Not Available [address], [address], [place], [address], 11/18/2017 15:55:55 11/16/19 18 11/15/2017 uric acid, serum or plasm a color, urine light, yellow Not Available [address], [address], [place], [address], 11/19/2017 19:46:51 11/16/19 18 11/15/2017 uric acid, serum or plasm a clarity, urine clear Not Available [address], [address], [place], [address], 11/19/2017 19:46:51 11/16/19 18 11/15/2017 uric acid, serum or plasm a pH, urine 6.0 Not Available [facility] 61 [facility] [address], [address], [place], [address], 11/19/2017 19:46:51 11/16/19 18 11/15/2017 uric acid, serum or plasm a specific gravity, urine 1.010 Not Available [address], [address], [place], [address], 11/19/2017 19:46:51 11/16/19 18 11/15/2017 uric acid, serum or plasm a protein, total, urine 30 Not Available [facility] [address] [facility] [address], [address], [place], [address], 11/19/2017 19:46:51 11/16/19 18 11/15/2017 uric acid, serum or plasm a glucose, urine negati ve Not Available [address], [address], [place], [address], 11/19/2017 19:46:51 11/16/19 18 11/15/2017 uric acid, serum or plasm a ketones, urine negati ve Not Available [facility] [address] [facility] [address], [address], [place], [address], 11/19/2017 19:46:51 11/16/19 18 11/15/2017 uric acid, serum or plasm a bilirubin, urine negati ve Not Available [address], [address], [place], [address], 11/19/2017 19:46:51 11/16/19 18 11/15/2017 uric acid, serum or plasm a blood, urine negati ve Not Available [address], [address], [place], [address], 11/19/2017 19:46:51 11/16/19 18 11/15/2017 uric acid, serum or plasm a nitrite, urine negati ve Not Available [facility] [address] [facility] [address], [address], [place], [address], 11/19/2017 19:46:51 11/16/19 18 11/15/2017 uric acid, serum or plasm a leukocyte esterase, urine negati ve Not Available [facility] [address] [facility] [address], [address], [place], [address], 11/19/2017 19:46:51 11/16/19 18 11/15/2017 uric acid, serum or plasm a urobilinogen , urine <2.0 Not Available [facility] [address] [facility] [address], [place], [address], 11/19/2017 19:46:51 11/16/19 18 11/15/2017 uric acid, serum or plasm a WBC casts, urine <1 Not Available [facility] [address] [facility] [address], [address], [place], [address], 11/19/2017 19:46:51 11/16/19 18 11/15/2017 uric acid, serum or plasm a red blood cells, urine 0 Not Available [facility] [address] [facility] [address], [address], [place], [address], 11/19/2017 19:46:51 11/16/19 18 11/15/2017 uric acid, serum or plasm a epithelial cells, urine <1 Not Available [facility] [address] [facility] [address], [address], [place], [address], 11/19/2017 19:46:51 11/16/19 18 11/15/2017 uric acid, serum or plasm a protein, urine, random 10.1 Not Available [facility] [address] [facility] [address], [address], [place], [address], 11/19/2017 19:46:51 11/16/19 18 11/15/2017 uric acid, serum or plasm a creatinine, urine, random 48.7 Not Available [facility] [address], [address], [place], [address], 11/19/2017 19:46:51 11/16/19 18 11/15/2017 uric acid, serum or plasm a HGB 15.3 Not Available [facility] [address] [facility] [address], [address], [place], [address], 11/19/2017 19:46:51 11/16/19 18 11/15/2017 uric acid, serum or plasm a HCT 44.1 Not Available [facility] [address] [facility] [address], [address], [place], [address], 11/19/2017 19:46:51 11/16/19 18 11/15/2017 uric acid, serum or plasm a WBC 6.6 Not Available [facility] [address] [facility] [address], [address], [place], [address], 11/19/2017 19:46:51 11/16/19 18 11/15/2017 uric acid, serum or plasm a plt 275 Not Available [facility] [address] [facility] [address], [address], [place], [address], 11/19/2017 19:46:51 11/16/19 18 11/15/2017 uric acid, serum or plasm a sodium, serum 137 Not Available [facility] [address] [facility] [address], [address], [place], [address], 11/19/2017 19:46:51 11/16/19 18 11/15/2017 uric acid, serum or plasm a potassium, seerum 4.0 Not Available [facility] [address] [facility] [address], [address], [place], [address], 11/19/2017 19:46:51 11/16/19 18 11/15/2017 uric acid, serum or plasm a chloride, serum 96 Not Available [facility] [address] [facility] [address], [address], [place], [address], 11/19/2017 19:46:51 11/16/19 18 11/15/2017 uric acid, serum or plasm a carbon dioxide 27 Not Available [facility] [address] [facility] [address], [address], [place], [address], 11/19/2017 19:46:51 11/16/19 18 11/15/2017 uric acid, serum or plasm a calcium, serum 9.5 Not Available [facility] [address] [facility] [address], [address], [place], [address], 11/19/2017 19:46:51 11/16/19 18 11/15/2017 uric acid, serum or plasm a glucose, serum 92 Not Available [facility] [address] [facility] [address], [address], [place], [address], 11/19/2017 19:46:51 11/16/19 18 11/15/2017 uric acid, serum or plasm a BUN 27 Not Available [facility] [address] [facility] [address], [address], [place], [address], 11/19/2017 19:46:51 11/16/19 18 11/15/2017 uric acid, serum or plasm a creatinine 1.63 Not Available [facility] [address] [facility] [address], [address], [place], [address], 11/19/2017 19:46:51 11/16/19 18 11/15/2017 uric acid, serum or plasm a GFR 43 Not Available [facility] [address] [facility] [address], [address], [place], [address], 11/19/2017 19:46:51 11/16/19 18 11/15/2017 uric acid, serum or plasm a bilirubin, total 0.6 Not Available [facility] 61 [facility] [address], [address], [place], [address], 11/19/2017 19:46:51 11/16/19 18 11/15/2017 uric acid, serum or plasm a albumin, serum 4.5 Not Available [address], [address], [place], [address], 11/19/2017 19:46:51 11/16/19 18 11/15/2017 uric acid, serum or plasm a protein, total, serum 7.5 Not Available [facility] [address] [facility] [address], [address], [place], [address], 11/19/2017 19:46:51 11/16/19 18 11/15/2017 uric acid, serum or plasm a magnesium 1.8 Not Available [address], [address], [place], [address], 11/19/2017 19:46:51 11/16/19 18 11/15/2017 uric acid, serum or plasm a phosphorus 3.6 Not Available [facility] [address] [facility] [address], [address], [place], [address], 11/19/2017 19:46:51 11/16/19 18 11/15/2017 uric acid, serum or plasm a uric acid 5.6 Not Available [address] [facility] [address], [address], [place], [address], 11/19/2017 19:46:51 11/16/19 18 11/15/2017 phosp horus , blood color, urine light, yellow Not Available [facility] [address] [facility] [address], [address], [place], [address], 11/19/2017 19:46:50 11/16/19 18 11/15/2017 phosp horus , blood clarity, urine clear Not Available [facility] [address] [facility] [address], [address], [place], [address], 11/19/2017 19:46:50 11/16/19 18 11/15/2017 phosp horus , blood pH, urine 6.0 Not Available [facility] [address] [facility] [address], [address], [place], [address], 11/19/2017 19:46:50 11/16/19 18 11/15/2017 phosp horus , blood specific gravity, urine 1.010 Not Available [facility] [address] [facility] [address], [address], [place], [address], 11/19/2017 19:46:50 11/16/19 18 11/15/2017 phosp horus , blood protein, total, urine 30 Not Available [facility] [address] [facility] [address], [address], [place], [address], 11/19/2017 19:46:50 11/16/19 18 11/15/2017 phosp horus , blood glucose, urine negati ve Not Available [facility] [address] [facility] [address], [address], [place], [address], 11/19/2017 19:46:50 11/16/19 18 11/15/2017 phosp horus , blood ketones, urine negati ve Not Available [facility] [address] [facility] [address], [address], [place], [address], 11/19/2017 19:46:50 11/16/19 18 11/15/2017 phosp horus , blood bilirubin, urine negati ve Not Available [facility] [address] [facility] [address], [address], [place], [address], 11/19/2017 19:46:50 11/16/19 18 11/15/2017 phosp horus , blood blood, urine negati ve Not Available [facility] [address] [facility] [address], [address], [place], [address], 11/19/2017 19:46:50 11/16/19 18 11/15/2017 phosp horus , blood nitrite, urine negati ve Not Available [facility] [address] [facility] [address], [address], [place], [address], 11/19/2017 19:46:50 11/16/19 18 11/15/2017 phosp horus , blood leukocyte esterase, urine negati ve Not Available [facility] [address] [facility] [address], [address], [place], [address], 11/19/2017 19:46:50 11/16/19 18 11/15/2017 phosp horus , blood urobilinogen , urine <2.0 Not Available [facility] [address] [facility] [address], [place], [address], 11/19/2017 19:46:50 11/16/19 18 11/15/2017 phosp horus , blood WBC casts, urine <1 Not Available [facility] [address] [facility] [address], [address], [place], [address], 11/19/2017 19:46:50 11/16/19 18 11/15/2017 phosp horus , blood red blood cells, urine 0 Not Available [facility] [address] [facility] [address], [address], [place], [address], 11/19/2017 19:46:50 11/16/19 18 11/15/2017 phosp horus , blood epithelial cells, urine <1 Not Available [facility] [address] [facility] [address], [address], [place], [address], 11/19/2017 19:46:50 11/16/19 18 11/15/2017 phosp horus , blood protein, urine, random 10.1 Not Available [facility] [address] [facility] [address], [address], [place], [address], 11/19/2017 19:46:50 11/16/19 18 11/15/2017 phosp horus , blood creatinine, urine, random 48.7 Not Available [facility] [address], [address], [place], [address], 11/19/2017 19:46:50 11/16/19 18 11/15/2017 phosp horus , blood HGB 15.3 Not Available [facility] [address], [address], [place], [address], 11/19/2017 19:46:50 11/16/19 18 11/15/2017 phosp horus , blood HCT 44.1 Not Available [facility] [address], [address], [place], [address], 11/19/2017 19:46:50 11/16/19 18 11/15/2017 phosp horus , blood WBC 6.6 Not Available [facility] [address], [address], [place], [address], 11/19/2017 19:46:50 11/16/19 18 11/15/2017 phosp horus , blood plt 275 Not Available [facility] [address], [address], [place], [address], 11/19/2017 19:46:50 11/16/19 18 11/15/2017 phosp horus , blood sodium, serum 137 Not Available [facility] [address], [address], [place], [address], 11/19/2017 19:46:50 11/16/19 18 11/15/2017 phosp horus , blood potassium, seerum 4.0 Not Available [facility] [address], [address], [place], [address], 11/19/2017 19:46:50 11/16/19 18 11/15/2017 phosp horus , blood chloride, serum 96 Not Available [facility] [address], [address], [place], [address], 11/19/2017 19:46:50 11/16/19 18 11/15/2017 phosp horus , blood carbon dioxide 27 Not Available [facility] [address], [address], [place], [address], 11/19/2017 19:46:50 11/16/19 18 11/15/2017 phosp horus , blood calcium, serum 9.5 Not Available [facility] [address], [address], [place], [address], 11/19/2017 19:46:50 11/16/19 18 11/15/2017 phosp horus , blood glucose, serum 92 Not Available [facility] [address], [address], [place], [address], 11/19/2017 19:46:50 11/16/19 18 11/15/2017 phosp horus , blood BUN 27 Not Available [facility] [address], [address], [place], [address], 11/19/2017 19:46:50 11/16/19 18 11/15/2017 phosp horus , blood creatinine 1.63 Not Available [facility] [address], [address], [place], [address], 11/19/2017 19:46:50 11/16/19 18 11/15/2017 phosp horus , blood GFR 43 Not Available [facility] [address], [address], [place], [address], 11/19/2017 19:46:50 11/16/19 18 11/15/2017 phosp horus , blood bilirubin, total 0.6 Not Available [facility] [address] [facility] [address], [address], [place], [address], 11/19/2017 19:46:50 11/16/19 18 11/15/2017 phosp horus , blood albumin, serum 4.5 Not Available [facility] [address] [facility] [address], [address], [place], [address], 11/19/2017 19:46:50 11/16/19 18 11/15/2017 phosp horus , blood protein, total, serum 7.5 Not Available [facility] [address] [facility] [address], [address], [place], [address], 11/19/2017 19:46:50 11/16/19 18 11/15/2017 phosp horus , blood magnesium 1.8 Not Available [facility] [address] [facility] [address], [address], [place], [address], 11/19/2017 19:46:50 11/16/19 18 11/15/2017 phosp horus , blood phosphorus 3.6 Not Available [facility] [address] [facility] [address], [address], [place], [address], 11/19/2017 19:46:50 11/16/19 18 11/15/2017 phosp horus , blood uric acid 5.6 Not Available [facility] [address] [facility] [address], [address], [place], [address], 11/19/2017 19:46:50 11/16/19 18 11/15/2017 magne sium, blood color, urine light, yellow Not Available [facility] [address] [facility] [address], [address], [place], [address], 11/19/2017 19:46:50 11/16/19 18 11/15/2017 magne sium, blood clarity, urine clear Not Available [facility] [address] [facility] [address], [address], [place], [address], 11/19/2017 19:46:50 11/16/19 18 11/15/2017 magne sium, blood pH, urine 6.0 Not Available [facility] [address] [facility] [address], [address], [place], [address], 11/19/2017 19:46:50 11/16/19 18 11/15/2017 magne sium, blood specific gravity, urine 1.010 Not Available [facility] [address], [place], [address], 11/19/2017 19:46:50 11/16/19 18 11/15/2017 magne sium, blood protein, total, urine 30 Not Available [facility] [address] [facility] [address], [address], [place], [address], 11/19/2017 19:46:50 11/16/19 18 11/15/2017 magne sium, blood glucose, urine negati ve Not Available [facility] [address] [facility] [address], [place], [address], 11/19/2017 19:46:50 11/16/19 18 11/15/2017 magne sium, blood ketones, urine negati ve Not Available [facility] [address] [facility] [address], [place], [address], 11/19/2017 19:46:50 11/16/19 18 11/15/2017 magne sium, blood bilirubin, urine negati ve Not Available [facility] [address] [facility] [address], [place], [address], 11/19/2017 19:46:50 11/16/19 18 11/15/2017 magne sium, blood blood, urine negati ve Not Available [facility] [address] [facility] [address], [address], [place], [address], 11/19/2017 19:46:50 11/16/19 18 11/15/2017 magne sium, blood nitrite, urine negati ve Not Available [facility] [address] [facility] [address], [place], [address], 11/19/2017 19:46:50 11/16/19 18 11/15/2017 magne sium, blood leukocyte esterase, urine negati ve Not Available [facility] [address] [facility] [address], [place], [address], 11/19/2017 19:46:50 11/16/19 18 11/15/2017 magne sium, blood urobilinogen , urine <2.0 Not Available [facility] [address] [facility] [address], [place], [address], 11/19/2017 19:46:50 11/16/19 18 11/15/2017 magne sium, blood WBC casts, urine <1 Not Available [facility] [address] [facility] [address], [place], [address], 11/19/2017 19:46:50 11/16/19 18 11/15/2017 magne sium, blood red blood cells, urine 0 Not Available [facility] [address] [facility] [address], [address], [place], [address], 11/19/2017 19:46:50 11/16/19 18 11/15/2017 magne sium, blood epithelial cells, urine <1 Not Available [facility] [address], [place], [address], 11/19/2017 19:46:50 11/16/19 18 11/15/2017 magne sium, blood protein, urine, random 10.1 Not Available [facility] [address] [facility] [address], [address], [place], [address], 11/19/2017 19:46:50 11/16/19 18 11/15/2017 magne sium, blood creatinine, urine, random 48.7 Not Available [facility] [address] [facility] [address], [address], [place], [address], 11/19/2017 19:46:50 11/16/19 18 11/15/2017 magne sium, blood HGB 15.3 Not Available [facility] [address] [facility] [address], [address], [place], [address], 11/19/2017 19:46:50 11/16/19 18 11/15/2017 magne sium, blood HCT 44.1 Not Available [facility] [address] [facility] [address], [address], [place], [address], 11/19/2017 19:46:50 11/16/19 18 11/15/2017 magne sium, blood WBC 6.6 Not Available [facility] [facility] [address], [place], [address], 11/19/2017 19:46:50 11/16/19 18 11/15/2017 magne sium, blood plt 275 Not Available [facility] [address], [address], [place], [address], 11/19/2017 19:46:50 11/16/19 18 11/15/2017 magne sium, blood sodium, serum 137 Not Available [facility] [address] [facility] [address], [address], [place], [address], 11/19/2017 19:46:50 11/16/19 18 11/15/2017 magne sium, blood potassium, seerum 4.0 Not Available [facility] [address] [facility] [address], [address], [place], [address], 11/19/2017 19:46:50 11/16/19 18 11/15/2017 magne sium, blood chloride, serum 96 Not Available [facility] [address] [facility] [address], [address], [place], [address], 11/19/2017 19:46:50 11/16/19 18 11/15/2017 magne sium, blood carbon dioxide 27 Not Available [facility] [address], [address], [place], [address], 11/19/2017 19:46:50 11/16/19 18 11/15/2017 magne sium, blood calcium, serum 9.5 Not Available [facility] [address] [facility] [address], [address], [place], [address], 11/19/2017 19:46:50 11/16/19 18 11/15/2017 magne sium, blood glucose, serum 92 Not Available [facility] [address] [facility] [address], [address], [place], [address], 11/19/2017 19:46:50 11/16/19 18 11/15/2017 magne sium, blood BUN 27 Not Available [facility] [address], [address], [place], [address], 11/19/2017 19:46:50 11/16/19 18 11/15/2017 magne sium, blood creatinine 1.63 Not Available [facility] [address] [facility] [address], [address], [place], [address], 11/19/2017 19:46:50 11/16/19 18 11/15/2017 magne sium, blood GFR 43 Not Available [facility] [address], [place], [address], 11/19/2017 19:46:50 11/16/19 18 11/15/2017 magne sium, blood bilirubin, total 0.6 Not Available [facility] [address], [place], [address], 11/19/2017 19:46:50 11/16/19 18 11/15/2017 magne sium, blood albumin, serum 4.5 Not Available [facility] [address], [place], [address], 11/19/2017 19:46:50 11/16/19 18 11/15/2017 magne sium, blood protein, total, serum 7.5 Not Available [facility] [address], [place], [address], 11/19/2017 19:46:50 11/16/19 18 11/15/2017 magne sium, blood magnesium 1.8 Not Available [facility] [address], [place], [address], 11/19/2017 19:46:50 11/16/19 18 11/15/2017 magne sium, blood phosphorus 3.6 Not Available [facility] [address], [place], [address], 11/19/2017 19:46:50 11/16/19 18 11/15/2017 magne sium, blood uric acid 5.6 Not Available [facility] [address], [place], [address], 11/19/2017 19:46:50 11/16/19 18 11/15/2017 CMP, serum or plasm a color, urine light, yellow Not Available [address], [place], [address], 11/19/2017 19:46:50 11/16/19 18 11/15/2017 CMP, serum or plasm a clarity, urine clear Not Available [address], [address], [place], [address], 11/19/2017 19:46:50 11/16/19 18 11/15/2017 CMP, serum or plasm a pH, urine 6.0 Not Available [address], [address], [place], [address], 11/19/2017 19:46:50 11/16/19 18 11/15/2017 CMP, serum or plasm a specific gravity, urine 1.010 Not Available [address], [place], [address], 11/19/2017 19:46:50 11/16/19 18 11/15/2017 CMP, serum or plasm a protein, total, urine 30 Not Available [address], [address], [place], [address], 11/19/2017 19:46:50 11/16/19 18 11/15/2017 CMP, serum or plasm a glucose, urine negati ve Not Available [address], [address], [place], [address], 11/19/2017 19:46:50 11/16/19 18 11/15/2017 CMP, serum or plasm a ketones, urine negati ve Not Available [address], [address], [place], [address], 11/19/2017 19:46:50 11/16/19 18 11/15/2017 CMP, serum or plasm a bilirubin, urine negati ve Not Available [address], [address], [place], [address], 11/19/2017 19:46:50 11/16/19 18 11/15/2017 CMP, serum or plasm a blood, urine negati ve Not Available [address], [address], [place], [address], 11/19/2017 19:46:50 11/16/19 18 11/15/2017 CMP, serum or plasm a nitrite, urine negati ve Not Available [facility] [address] [place], [place] [address]y [address], [address], [place], [address], 11/19/2017 19:46:50 11/16/19 18 11/15/2017 CMP, serum or plasm a leukocyte esterase, urine negati ve Not Available [address], [address], [place], [address], 11/19/2017 19:46:50 11/16/19 18 11/15/2017 CMP, serum or plasm a urobilinogen , urine <2.0 Not Available [address], [address], [place], [address], 11/19/2017 19:46:50 11/16/19 18 11/15/2017 CMP, serum or plasm a WBC casts, urine <1 Not Available [address], [address], [place], [address], 11/19/2017 19:46:50 11/16/19 18 11/15/2017 CMP, serum or plasm a red blood cells, urine 0 Not Available [facility] [address] [place], [place] [address]y [address], [address], [place], [address], 11/19/2017 19:46:50 11/16/19 18 11/15/2017 CMP, serum or plasm a epithelial cells, urine <1 Not Available [facility] [address] [facility] [address], [address], [place], [address], 11/19/2017 19:46:50 11/16/19 18 11/15/2017 CMP, serum or plasm a protein, urine, random 10.1 Not Available [address], [place], [address], 11/19/2017 19:46:50 11/16/19 18 11/15/2017 CMP, serum or plasm a creatinine, urine, random 48.7 Not Available [facility] [address] [facility] [address], [address], [place], [address], 11/19/2017 19:46:50 11/16/19 18 11/15/2017 CMP, serum or plasm a HGB 15.3 Not Available [address], [place], [address], 11/19/2017 19:46:50 11/16/19 18 11/15/2017 CMP, serum or plasm a HCT 44.1 Not Available [address], [place], [address], 11/19/2017 19:46:50 11/16/19 18 11/15/2017 CMP, serum or plasm a WBC 6.6 Not Available [address], [place], [address], 11/19/2017 19:46:50 11/16/19 18 11/15/2017 CMP, serum or plasm a plt 275 Not Available [facility] [address], [place], [address], 11/19/2017 19:46:50 11/16/19 18 11/15/2017 CMP, serum or plasm a sodium, serum 137 Not Available [facility] [address] [facility] [address], [address], [place], [address], 11/19/2017 19:46:50 11/16/19 18 11/15/2017 CMP, serum or plasm a potassium, seerum 4.0 Not Available [facility] [address] [facility] [address], [address], [place], [address], 11/19/2017 19:46:50 11/16/19 18 11/15/2017 CMP, serum or plasm a chloride, serum 96 Not Available [facility] [address] [facility] [address], [address], [place], [address], 11/19/2017 19:46:50 11/16/19 18 11/15/2017 CMP, serum or plasm a carbon dioxide 27 Not Available [facility] [address] [facility] [address], [address], [place], [address], 11/19/2017 19:46:50 11/16/19 18 11/15/2017 CMP, serum or plasm a calcium, serum 9.5 Not Available [facility] [address], [address], [place], [address], 11/19/2017 19:46:50 11/16/19 18 11/15/2017 CMP, serum or plasm a glucose, serum 92 Not Available [facility] [address], [address], [place], [address], 11/19/2017 19:46:50 11/16/19 18 11/15/2017 CMP, serum or plasm a BUN 27 Not Available [facility] [address], [address], [place], [address], 11/19/2017 19:46:50 11/16/19 18 11/15/2017 CMP, serum or plasm a creatinine 1.63 Not Available [facility] [address] [facility] [address], [address], [place], [address], 11/19/2017 19:46:50 11/16/19 18 11/15/2017 CMP, serum or plasm a GFR 43 Not Available [facility] [address] [facility] [address], [address], [place], [address], 11/19/2017 19:46:50 11/16/19 18 11/15/2017 CMP, serum or plasm a bilirubin, total 0.6 Not Available [facility] [address] [facility] [address], [address], [place], [address], 11/19/2017 19:46:50 11/16/19 18 11/15/2017 CMP, serum or plasm a albumin, serum 4.5 Not Available [facility] [address] [facility] [address], [address], [place], [address], 11/19/2017 19:46:50 11/16/19 18 11/15/2017 CMP, serum or plasm a protein, total, serum 7.5 Not Available [facility] [address] [facility] [address], [address], [place], [address], 11/19/2017 19:46:50 11/16/19 18 11/15/2017 CMP, serum or plasm a magnesium 1.8 Not Available [facility] [address] [facility] [address], [address], [place], [address], 11/19/2017 19:46:50 11/16/19 18 11/15/2017 CMP, serum or plasm a phosphorus 3.6 Not Available [facility] [address], [address], [place], [address], 11/19/2017 19:46:50 11/16/19 18 11/15/2017 CMP, serum or plasm a uric acid 5.6 Not Available [facility] [address] [facility] [address], [address], [place], [address], 11/19/2017 19:46:50 11/16/19 18 11/15/2017 CBC w/ auto diff color, urine light, yellow Not Available [facility] [address] [facility] [address], [address], [place], [address], 11/19/2017 19:46:50 11/16/19 18 11/15/2017 CBC w/ auto diff clarity, urine clear Not Available [facility] [address] [facility] [address], [address], [place], [address], 11/19/2017 19:46:50 11/16/19 18 11/15/2017 CBC w/ auto diff pH, urine 6.0 Not Available [facility] [address] [facility] [address], [address], [place], [address], 11/19/2017 19:46:50 11/16/19 18 11/15/2017 CBC w/ auto diff specific gravity, urine 1.010 Not Available [facility] [address] [facility] [address], [address], [place], [address], 11/19/2017 19:46:50 11/16/19 18 11/15/2017 CBC w/ auto diff protein, total, urine 30 Not Available [facility] [address] [facility] [address], [address], [place], [address], 11/19/2017 19:46:50 11/16/19 18 11/15/2017 CBC w/ auto diff glucose, urine negati ve Not Available [facility] [address] [facility] [address], [address], [place], [address], 11/19/2017 19:46:50 11/16/19 18 11/15/2017 CBC w/ auto diff ketones, urine negati ve Not Available [facility] [address] [facility] [address], [address], [place], [address], 11/19/2017 19:46:50 11/16/19 18 11/15/2017 CBC w/ auto diff bilirubin, urine negati ve Not Available [facility] [address] [facility] [address], [address], [place], [address], 11/19/2017 19:46:50 11/16/19 18 11/15/2017 CBC w/ auto diff blood, urine negati ve Not Available [facility] [address], [place], [address], 11/19/2017 19:46:50 11/16/19 18 11/15/2017 CBC w/ auto diff nitrite, urine negati ve Not Available [facility] [address], [place], [address], 11/19/2017 19:46:50 11/16/19 18 11/15/2017 CBC w/ auto diff leukocyte esterase, urine negati ve Not Available [facility] [address], [place], [address], 11/19/2017 19:46:50 11/16/19 18 11/15/2017 CBC w/ auto diff urobilinogen , urine <2.0 Not Available [facility] [address], [place], [address], 11/19/2017 19:46:50 11/16/19 18 11/15/2017 CBC w/ auto diff WBC casts, urine <1 Not Available [facility] [address], [place], [address], 11/19/2017 19:46:50 11/16/19 18 11/15/2017 CBC w/ auto diff red blood cells, urine 0 Not Available [facility] [address], [place], [address], 11/19/2017 19:46:50 11/16/19 18 11/15/2017 CBC w/ auto diff epithelial cells, urine <1 Not Available [facility] [address] [facility] [address], [address], [place], [address], 11/19/2017 19:46:50 11/16/19 18 11/15/2017 CBC w/ auto diff protein, urine, random 10.1 Not Available [facility] [address] [facility] [address], [address], [place], [address], 11/19/2017 19:46:50 11/16/19 18 11/15/2017 CBC w/ auto diff creatinine, urine, random 48.7 Not Available [facility] [address] [facility] [address], [address], [place], [address], 11/19/2017 19:46:50 11/16/19 18 11/15/2017 CBC w/ auto diff HGB 15.3 Not Available [facility] [address] [facility] [address], [address], [place], [address], 11/19/2017 19:46:50 11/16/19 18 11/15/2017 CBC w/ auto diff HCT 44.1 Not Available [facility] [address] [facility] [address], [address], [place], [address], 11/19/2017 19:46:50 11/16/19 18 11/15/2017 CBC w/ auto diff WBC 6.6 Not Available [facility] [address] [facility] [address], [address], [place], [address], 11/19/2017 19:46:50 11/16/19 18 11/15/2017 CBC w/ auto diff plt 275 Not Available [facility] [address] [facility] [address], [address], [place], [address], 11/19/2017 19:46:50 11/16/19 18 11/15/2017 CBC w/ auto diff sodium, serum 137 Not Available [facility] [address], [address], [place], [address], 11/19/2017 19:46:50 11/16/19 18 11/15/2017 CBC w/ auto diff potassium, seerum 4.0 Not Available [facility] [address], [address], [place], [address], 11/19/2017 19:46:50 11/16/19 18 11/15/2017 CBC w/ auto diff chloride, serum 96 Not Available [facility] [address], [address], [place], [address], 11/19/2017 19:46:50 11/16/19 18 11/15/2017 CBC w/ auto diff carbon dioxide 27 Not Available [facility] [address], [address], [place], [address], 11/19/2017 19:46:50 11/16/19 18 11/15/2017 CBC w/ auto diff calcium, serum 9.5 Not Available [facility] [address], [address], [place], [address], 11/19/2017 19:46:50 11/16/19 18 11/15/2017 CBC w/ auto diff glucose, serum 92 Not Available [facility] [address], [address], [place], [address], 11/19/2017 19:46:50 11/16/19 18 11/15/2017 CBC w/ auto diff BUN 27 Not Available [facility] [address], [place], [address], 11/19/2017 19:46:50 11/16/19 18 11/15/2017 CBC w/ auto diff creatinine 1.63 Not Available [facility] [address], [place], [address], 11/19/2017 19:46:50 11/16/19 18 11/15/2017 CBC w/ auto diff GFR 43 Not Available [facility] 61 [facility] [address], [address], [place], [address], 11/19/2017 19:46:50 11/16/19 18 11/15/2017 CBC w/ auto diff bilirubin, total 0.6 Not Available [facility] [address] [facility] [address], [address], [place], [address], 11/19/2017 19:46:50 11/16/19 18 11/15/2017 CBC w/ auto diff albumin, serum 4.5 Not Available [address], [address], [place], [address], 11/19/2017 19:46:50 11/16/19 18 11/15/2017 CBC w/ auto diff protein, total, serum 7.5 Not Available [facility] [address] [facility] [address], [address], [place], [address], 11/19/2017 19:46:50 11/16/19 18 11/15/2017 CBC w/ auto diff magnesium 1.8 Not Available [facility] [address] [facility] [address], [address], [place], [address], 11/19/2017 19:46:50 11/16/19 18 11/15/2017 CBC w/ auto diff phosphorus 3.6 Not Available [facility] [address], [address], [place], [address], 11/19/2017 19:46:50 11/16/19 18 11/15/2017 CBC w/ auto diff uric acid 5.6 Not Available [facility] [address], [address], [place], [address], 11/19/2017 19:46:50 11/16/19 18 11/15/2017 prote in:cr eatin ine ratio , urine color, urine light, yellow Not Available [facility] [address] [facility] [address], [address], [place], [address], 11/19/2017 19:46:50 11/16/19 18 11/15/2017 prote in:cr eatin ine ratio , urine clarity, urine clear Not Available [facility] [address] [facility], [place], [address], 11/19/2017 19:46:50 11/16/19 18 11/15/2017 prote in:cr eatin ine ratio , urine pH, urine 6.0 Not Available [facility] [address], [place], [address], 11/19/2017 19:46:50 11/16/19 18 11/15/2017 prote in:cr eatin ine ratio , urine specific gravity, urine 1.010 Not Available [facility] [address] [facility] [address], [place], [address], 11/19/2017 19:46:50 11/16/19 18 11/15/2017 prote in:cr eatin ine ratio , urine protein, total, urine 30 Not Available [facility] [address], [place], [address], 11/19/2017 19:46:50 11/16/19 18 11/15/2017 prote in:cr eatin ine ratio , urine glucose, urine negati ve Not Available [facility] [address], [place], [address], 11/19/2017 19:46:50 11/16/19 18 11/15/2017 prote in:cr eatin ine ratio , urine ketones, urine negati ve Not Available [facility] [address] [facility] [address], [address], [place], [address], 11/19/2017 19:46:50 11/16/19 18 11/15/2017 prote in:cr eatin ine ratio , urine bilirubin, urine negati ve Not Available [facility] [address], [place], [address], 11/19/2017 19:46:50 11/16/19 18 11/15/2017 prote in:cr eatin ine ratio , urine blood, urine negati ve Not Available [facility] [address], [place], [address], 11/19/2017 19:46:50 11/16/19 18 11/15/2017 prote in:cr eatin ine ratio , urine nitrite, urine negati ve Not Available [facility] [address], [place], [address], 11/19/2017 19:46:50 11/16/19 18 11/15/2017 prote in:cr eatin ine ratio , urine leukocyte esterase, urine negati ve Not Available [facility] [address] [facility] [address], [address], [place], [address], 11/19/2017 19:46:50 11/16/19 18 11/15/2017 prote in:cr eatin ine ratio , urine urobilinogen , urine <2.0 Not Available [facility] [address], [place], [address], 11/19/2017 19:46:50 11/16/19 18 11/15/2017 prote in:cr eatin ine ratio , urine WBC casts, urine <1 Not Available [facility] [address], [place], [address], 11/19/2017 19:46:50 11/16/19 18 11/15/2017 prote in:cr eatin ine ratio , urine red blood cells, urine 0 Not Available [facility] [address], [address], [place], [address], 11/19/2017 19:46:50 11/16/19 18 11/15/2017 prote in:cr eatin ine ratio , urine epithelial cells, urine <1 Not Available [facility] [address] [facility] [address], [address], [place], [address], 11/19/2017 19:46:50 11/16/19 18 11/15/2017 prote in:cr eatin ine ratio , urine protein, urine, random 10.1 Not Available [facility] [address] [facility] [address], [address], [place], [address], 11/19/2017 19:46:50 11/16/19 18 11/15/2017 prote in:cr eatin ine ratio , urine creatinine, urine, random 48.7 Not Available [facility] [address] [facility] [address], [address], [place], [address], 11/19/2017 19:46:50 11/16/19 18 11/15/2017 prote in:cr eatin ine ratio , urine HGB 15.3 Not Available [facility] [address] [facility] [address], [address], [place], [address], 11/19/2017 19:46:50 11/16/19 18 11/15/2017 prote in:cr eatin ine ratio , urine HCT 44.1 Not Available [facility] [address], [address], [place], [address], 11/19/2017 19:46:50 11/16/19 18 11/15/2017 prote in:cr eatin ine ratio , urine WBC 6.6 Not Available [facility] [address] [facility] [address], [address], [place], [address], 11/19/2017 19:46:50 11/16/19 18 11/15/2017 prote in:cr eatin ine ratio , urine plt 275 Not Available [facility] [address] [facility] [address], [address], [place], [address], 11/19/2017 19:46:50 11/16/19 18 11/15/2017 prote in:cr eatin ine ratio , urine sodium, serum 137 Not Available [facility] [address] [facility] [address], [address], [place], [address], 11/19/2017 19:46:50 11/16/19 18 11/15/2017 prote in:cr eatin ine ratio , urine potassium, seerum 4.0 Not Available [facility] [address] [place] [address] [address], [address], [place], [address], 11/19/2017 19:46:50 11/16/19 18 11/15/2017 prote in:cr eatin ine ratio , urine chloride, serum 96 Not Available [facility] [address], [address], [place], [address], 11/19/2017 19:46:50 11/16/19 18 11/15/2017 prote in:cr eatin ine ratio , urine carbon dioxide 27 Not Available [facility] [address] [place] [address] [address], [address], [place], [address], 11/19/2017 19:46:50 11/16/19 18 11/15/2017 prote in:cr eatin ine ratio , urine calcium, serum 9.5 Not Available [facility] [address] [place] [address] [address], [address], [place], [address], 11/19/2017 19:46:50 11/16/19 18 11/15/2017 prote in:cr eatin ine ratio , urine glucose, serum 92 Not Available [facility] [address] [place] [address] [address], [address], [place], [address], 11/19/2017 19:46:50 11/16/19 18 11/15/2017 prote in:cr eatin ine ratio , urine BUN 27 Not Available [facility] [address] [place] [address] [address], [address], [place], [address], 11/19/2017 19:46:50 11/16/19 18 11/15/2017 prote in:cr eatin ine ratio , urine creatinine 1.63 Not Available [facility] [address] [facility] [address], [address], [place], [address], 11/19/2017 19:46:50 11/16/19 18 11/15/2017 prote in:cr eatin ine ratio , urine GFR 43 Not Available [address], [address], [place], [address], 11/19/2017 19:46:50 11/16/19 18 11/15/2017 prote in:cr eatin ine ratio , urine bilirubin, total 0.6 Not Available [facility] [address] [facility] [address], [address], [place], [address], 11/19/2017 19:46:50 11/16/19 18 11/15/2017 prote in:cr eatin ine ratio , urine albumin, serum 4.5 Not Available [facility] [address] [place] [address] [address], [address], [place], [address], 11/19/2017 19:46:50 11/16/19 18 11/15/2017 prote in:cr eatin ine ratio , urine protein, total, serum 7.5 Not Available [facility] [address] [facility] [address], [address], [place], [address], 11/19/2017 19:46:50 11/16/19 18 11/15/2017 prote in:cr eatin ine ratio , urine magnesium 1.8 Not Available [facility] [address] [facility] [address], [place], [address], 11/19/2017 19:46:50 11/16/19 18 11/15/2017 prote in:cr eatin ine ratio , urine phosphorus 3.6 Not Available [facility] [address] [facility] [address], [place], [address], 11/19/2017 19:46:50 11/16/19 18 11/15/2017 prote in:cr eatin ine ratio , urine uric acid 5.6 Not Available [facility] [address] [facility] [address], [place], [address], 11/19/2017 19:46:50 05/07/20 18 05/07/2018 lipid panel [...] , urine glucose 96 normal Not Available [facility] [address] [facility] [address], [address], [place], [address], 09/17/2018 17:00:34 08/29/20 18 08/29/2018 prote in:cr eatin ine ratio , urine BUN 25 high Not Available [facility] [address] [facility] [address], [address], [place], [address], 09/17/2018 17:00:34 08/29/20 18 08/29/2018 prote in:cr eatin ine ratio , urine creatinine 1.51 high Not Available [facility] [address] [facility] [address], [address], [place], [address], 09/17/2018 17:00:34 08/29/20 18 08/29/2018 prote in:cr eatin ine ratio , urine sodium, serum 139 normal Not Available [facility] [address] [facility] [address], [address], [place], [address], 09/17/2018 17:00:34 08/29/20 18 08/29/2018 prote in:cr eatin ine ratio , urine potassium, serum 3.9 normal Not Available [facility] [address] [facility] [address], [address], [place], [address], 09/17/2018 17:00:34 08/29/20 18 08/29/2018 prote in:cr eatin ine ratio , urine chloride, serum 102 normal Not Available [facility] [address] [facility] [address], [address], [place], [address], 09/17/2018 17:00:34 08/29/20 18 08/29/2018 prote in:cr eatin ine ratio , urine carbon dioxide 28 normal Not Available [facility] [address] [facility] [address], [address], [place], [address], 09/17/2018 17:00:34 08/29/20 18 08/29/2018 prote in:cr eatin ine ratio , urine album, serum 4.3 normal Not Available [facility] [address] [place] [address] [address], [address], [place], [address], 09/17/2018 17:00:34 08/29/20 18 08/29/2018 prote in:cr eatin ine ratio , urine calcium, serum 9.2 normal Not Available [facility] [address] [place], [place] [address], [address], [place], [address], 09/17/2018 17:00:34 08/29/20 18 08/29/2018 prote in:cr eatin ine ratio , urine alkaline phosphatase 44 normal Not Available [facility] [address] [facility] [address], [place], [address], 09/17/2018 17:00:34 08/29/20 18 08/29/2018 prote in:cr eatin ine ratio , urine bilirubin, total 0.4 normal Not Available [facility] [address] [place], [place] [address], [address], [place], [address], 09/17/2018 17:00:34 08/29/20 18 08/29/2018 prote in:cr eatin ine ratio , urine protein, total, serum 70 normal Not Available [facility] [address] [place], [place] [address], [address], [place], [address], 09/17/2018 17:00:34 08/29/20 18 08/29/2018 prote in:cr eatin ine ratio , urine eGFR 47 low Not Available [facility] [address] [place], [place] [address], [address], [place], [address], 09/17/2018 17:00:34 08/29/20 18 08/29/2018 prote in:cr eatin ine ratio , urine creatinine, urine 23.0 normal Not Available [facility] [address] [place], [place] [address], [address], [place], [address], 09/17/2018 17:00:34 08/29/20 18 08/29/2018 prote in:cr eatin ine ratio , urine protein, total, urine, random 9.8 normal Not Available [facility] [address] [facility] [address], [address], [place], [address], 09/17/2018 17:00:34 08/29/20 18 08/29/2018 urina lysis compl ete, refle x cultu re WBC count 6.3 normal Not Available [facility] [address] [facility] [address], [address], [place], [address], 09/17/2018 16:56:21 08/29/20 18 08/29/2018 urina lysis compl ete, refle x cultu re HGB 15 normal Not Available [facility] [address] [facility] [address], [place], [address], 09/17/2018 16:56:21 08/29/20 18 08/29/2018 urina lysis compl ete, refle x cultu re HCT 44.2 normal Not Available [facility] [address] [facility] [address], [address], [place], [address], 09/17/2018 16:56:21 08/29/20 18 08/29/2018 urina lysis compl ete, refle x cultu re platelet count 254 normal Not Available [facility] [address] [place] [address], [address], [place], [address], 09/17/2018 16:56:21 08/29/20 18 08/29/2018 CMP, serum or plasm a glucose 96 normal Not Available [facility] [address] [facility] [address], [address], [place], [address], 08/29/2018 18:28:02 08/29/20 18 08/29/2018 CMP, serum or plasm a BUN 25 high Not Available [facility] [address] [facility] [address], [place], [address], 08/29/2018 18:28:02 08/29/20 18 08/29/2018 CMP, serum or plasm a creatinine 1.51 high Not Available [facility] [place] [address], [address], [place], [address], 08/29/2018 18:28:02 08/29/20 18 08/29/2018 CMP, serum or plasm a sodium, serum 139 normal Not Available [facility] [address], [address], [place], [address], 08/29/2018 18:28:02 08/29/20 18 08/29/2018 CMP, serum or plasm a potassium, serum 3.9 normal Not Available [facility] [place] [address], [address], [place], [address], 08/29/2018 18:28:02 08/29/20 18 08/29/2018 CMP, serum or plasm a chloride, serum 102 normal Not Available [facility] [address], [address], [place], [address], 08/29/2018 18:28:02 08/29/20 18 08/29/2018 CMP, serum or plasm a carbon dioxide 28 normal Not Available [facility] [address], [address], [place], [address], 08/29/2018 18:28:02 08/29/20 18 08/29/2018 CMP, serum or plasm a album, serum 4.3 normal Not Available [facility] [address], [address], [place], [address], 08/29/2018 18:28:02 08/29/20 18 08/29/2018 CMP, serum or plasm a calcium, serum 9.2 normal Not Available [facility] [address], [address], [place], [address], 08/29/2018 18:28:02 08/29/20 18 08/29/2018 CMP, serum or plasm a alkaline phosphatase 44 normal Not Available [facility] [address] [place] [address], [address], [place], [address], 08/29/2018 18:28:02 08/29/20 18 08/29/2018 CMP, serum or plasm a bilirubin, total 0.4 normal Not Available [facility] [address] [facility] [address], [address], [place], [address], 08/29/2018 18:28:02 08/29/20 18 08/29/2018 CMP, serum or plasm a protein, total, serum 70 normal Not Available [address], [address], [place], [address], 08/29/2018 18:28:02 08/29/20 18 08/29/2018 CMP, serum or plasm a eGFR 47 low Not Available [facility] [address], [address], [place], [address], 08/29/2018 18:28:02 08/29/20 18 08/29/2018 CMP, serum or plasm a creatinine, urine 23.0 normal Not Available [facility] [address], [address], [place], [address], 08/29/2018 18:28:02 08/29/20 18 08/29/2018 CMP, serum or plasm a protein, total, urine, random 9.8 normal Not Available [facility] [address], [address], [place], [address], 08/29/2018 18:28:02 08/29/20 18 08/29/2018 CBC w/ auto diff WBC count 6.3 normal Not Available [facility] [address] [facility] [address], [place], [address], 08/29/2018 15:25:44 08/29/20 18 08/29/2018 CBC w/ auto diff HGB 15 normal Not Available [facility] [address] [facility] [address], [address], [place], [address], 08/29/2018 15:25:44 08/29/20 18 08/29/2018 CBC w/ auto diff HCT 44.2 normal Not Available [facility] [address] [facility] [address], [address], [place], [address], 08/29/2018 15:25:44 08/29/20 18 08/29/2018 CBC w/ auto diff platelet count 254 normal Not Available [facility] [address] [facility] [address], [address], [place], [address], 08/29/2018 15:25:44 02/11/20 19 02/10/2019 lipid panel , serum WBC count 5.0 normal Not Available Not Avai lable 03/03/2019 16:15:17 02/11/20 19 02/10/2019 lipid panel , serum HGB 14.7 normal Not Available Not Availa ble 03/03/2019 16:15:17 02/11/20 19 02/10/2019 lipid panel , serum HCT 42.4 normal Not Available Not Availa ble 03/03/2019 16:15:17 02/11/2002/10/2019 lipid panel , serum platelet count 246 normal Not Available Not Available 10/2018 16:15:17 02/11/2002/10/2019 lipid panel , serum glucose 95 95 [...] Available Not Availa ble 03/03/2019 16:15:17 02/11/2002/10/2019 CMP, serum or plasm a WBC count 5.0 normal Not Available Not Avai lable 03/03/2019 16:15:17 02/11/2002/10/2019 CMP, serum or plasm a HGB 14.7 normal Not Available Not Availa ble 03/03/2019 16:15:17 02/11/2002/10/2019 CMP, serum or plasm a HCT 42.4 [...] A vailable 03/03/2019 16:15:17 02/11/20 19 02/10/2019 CMP, serum or plasm a calcium, serum [...] Availa ble 03/03/2019 16:15:17 02/11/20 19 02/10/2019 CBC w/ auto diff WBC count 5.0 [...] , serum glucose 96 normal Not Available [facility] [address] [facility] [address], [address], [place], [address], 03/04/2019 18:56:10 03/03/20 19 03/03/2019 renal funct ion panel , serum BUN 26 high Not Available [facility] [address] [facility] [address], [address], [place], [address], 03/04/2019 18:56:10 03/03/20 19 03/03/2019 renal funct ion panel , serum creatinine 1.61 normal Not Available [facility] [address] [facility] [address], [address], [place], [address], 03/04/2019 18:56:10 03/03/20 19 03/03/2019 renal funct ion panel , serum sodium, serum 139 normal Not Available [facility] [address] [facility] [address], [address], [place], [address], 03/04/2019 18:56:10 03/03/20 19 03/03/2019 renal funct ion panel , serum potassium, serum 3.8 normal Not Available [facility] [address] [facility] [address], [place], [address], 03/04/2019 18:56:10 03/03/20 19 03/03/2019 renal funct ion panel , serum chloride, serum 104 normal Not Available [facility] [address], [address], [place], [address], 03/04/2019 18:56:10 03/03/20 19 03/03/2019 renal funct ion panel , serum carbon dioxide 24 normal Not Available [facility] [address], [address], [place], [address], 03/04/2019 18:56:10 03/03/20 19 03/03/2019 renal funct ion panel , serum calcium, serum 9.1 normal normal Not Available [facility] [address], [address], [place], [address], 03/04/2019 18:56:10 03/03/20 19 03/03/2019 renal funct ion panel , serum eGFR 44 low Not Available [facility] [address], [place], [address], 03/04/2019 18:56:10 03/04/20 19 03/04/2019 prote in:cr eatin ine ratio , urine glucose 96 normal Not Available [facility] [address], [address], [place], [address], 03/04/2019 08:17:55 03/04/20 19 03/04/2019 prote in:cr eatin ine ratio , urine BUN 26 high Not Available [facility] [address], [address], [place], [address], 03/04/2019 08:17:55 03/04/20 19 03/04/2019 prote in:cr eatin ine ratio , urine creatinine 1.61 normal Not Available [facility] [address], [address], [place], [address], 03/04/2019 08:17:55 03/04/20 19 03/04/2019 prote in:cr eatin ine ratio , urine sodium, serum 139 normal Not Available [facility] [address] [facility] [address], [address], [place], [address], 03/04/2019 08:17:55 03/04/20 19 03/04/2019 prote in:cr eatin ine ratio , urine potassium, serum 3.8 normal Not Available [facility] [address] [facility] [address], [address], [place], [address], 03/04/2019 08:17:55 03/04/20 19 03/04/2019 prote in:cr eatin ine ratio , urine chloride, serum 104 normal Not Available [facility] [address] [facility] [address], [address], [place], [address], 03/04/2019 08:17:55 03/04/20 19 03/04/2019 prote in:cr eatin ine ratio , urine carbon dioxide 24 normal Not Available [facility] [address] [facility] [address], [address], [place], [address], 03/04/2019 08:17:55 03/04/20 19 03/04/2019 prote in:cr eatin ine ratio , urine calcium, serum 9.1 normal normal Not Available [facility] [address] [facility] [address], [address], [place], [address], 03/04/2019 08:17:55 03/04/20 19 03/04/2019 prote in:cr eatin ine ratio , urine eGFR 44 low Not Available [facility] [address] [facility] [address], [address], [place], [address], 03/04/2019 08:17:55 01/20/20 20 01/20/2020 CMP, serum [...] plasm a HGB 14.5 normal Not Available [employer] [facility] [address] [facility] [address], [place], [address], 11/15/2020 13:57:47 10/24/19 21 10/24/2020 CMP, serum or plasm a HCT 43.1 normal Not Available [facility] [address] [facility] [address], [place], [address], 11/15/2020 13:57:47 10/24/19 21 10/24/2020 CMP, serum or plasm a platelet count 242 normal Not Available [facility] [address], [address], [place], [address], 11/15/2020 13:57:47 10/24/19 21 10/24/2020 CMP, serum or plasm a WBC count 4.9 normal Not Available [facility] [address] [place] [address], [address], [place], [address], 11/15/2020 13:57:47 10/24/19 21 10/24/2020 CMP, serum or plasm a glucose 103 normal Not Available [facility] [address] [facility] [address], [address], [place], [address], 11/15/2020 13:57:47 10/24/19 21 10/24/2020 CMP, serum or plasm a BUN 24 high Not Available [facility] [address] [place] [address], [address], [place], [address], 11/15/2020 13:57:47 10/24/19 21 10/24/2020 CMP, serum or plasm a creatinine 1.36 high Not Available [facility] [address] [place] [address], [address], [place], [address], 11/15/2020 13:57:47 10/24/19 21 10/24/2020 CMP, serum or plasm a sodium, serum 136 normal Not Available [facility] [address] [place] [address], [address], [place], [address], 11/15/2020 13:57:47 10/24/19 21 10/24/2020 CMP, serum or plasm a potassium, serum 4.2 normal Not Available [facility] [address] [place] [address], [address], [place], [address], 11/15/2020 13:57:47 10/24/19 21 10/24/2020 CMP, serum or plasm a chloride, serum 102 normal Not Available [facility] [address] [facility] [address], [address], [place], [address], 11/15/2020 13:57:47 10/24/19 21 10/24/2020 CMP, serum or plasm a carbon dixoide 27 normal Not Available [facility] [address] [facility] [address], [address], [place], [address], 11/15/2020 13:57:47 10/24/19 21 10/24/2020 CMP, serum or plasm a album, serum 4.3 normal Not Available [facility] [address] [facility] [address], [address], [place], [address], 11/15/2020 13:57:47 10/24/19 21 10/24/2020 CMP, serum or plasm a calcium, serum 9.5 normal Not Available [facility] [address] [facility] [address], [address], [place], [address], 11/15/2020 13:57:47 10/24/19 21 10/24/2020 CMP, serum or plasm a eGFR 53 low Not Available [facility] [address] [facility] [address], [address], [place], [address], 11/15/2020 13:57:47 10/24/19 21 10/24/2020 CMP, serum or plasm a protein, total, serum 6.7 normal Not Available [facility] [address] [facility] [address], [address], [place], [address], 11/15/2020 13:57:47 10/24/19 21 10/24/2020 CBC w/ auto diff HGB 14.5 normal Not Available [facility] [address] [facility] [address], [address], [place], [address], 11/02/2020 12:21:14 10/24/19 21 10/24/2020 CBC w/ auto diff HCT 43.1 normal Not Available [facility] [address] [facility] [address], [address], [place], [address], 11/02/2020 12:21:14 10/24/19 21 10/24/2020 CBC w/ auto diff platelet count 242 normal Not Available [facility] [address] [facility] [address], [address], [place], [address], 11/02/2020 12:21:14 10/24/19 21 10/24/2020 CBC w/ auto diff WBC count 4.9 normal Not Available [facility] [address] [facility] [address], [address], [place], [address], 11/02/2020 12:21:14 10/24/19 21 10/24/2020 CBC w/ auto diff glucose 103 normal Not Available [facility] [address] [facility] [address], [address], [place], [address], 11/02/2020 12:21:14 10/24/19 21 10/24/2020 CBC w/ auto diff BUN 24 high Not Available [facility] [address] [facility] [address], [address], [place], [address], 11/02/2020 12:21:14 10/24/19 21 10/24/2020 CBC w/ auto diff creatinine 1.36 high Not Available [facility] [address] [facility] [address], [address], [place], [address], 11/02/2020 12:21:14 10/24/19 21 10/24/2020 CBC w/ auto diff sodium, serum 136 normal Not Available [facility] [address] [facility] [address], [address], [place], [address], 11/02/2020 12:21:14 10/24/19 21 10/24/2020 CBC w/ auto diff potassium, serum 4.2 normal Not Available [facility] [address], [place], [address], 11/02/2020 12:21:14 10/24/19 21 10/24/2020 CBC w/ auto diff chloride, serum 102 normal Not Available [facility] [address] [facility] [address], [address], [place], [address], 11/02/2020 12:21:14 10/24/19 21 10/24/2020 CBC w/ auto diff carbon dixoide 27 normal Not Available [facility] [address] [facility] [address], [address], [place], [address], 11/02/2020 12:21:14 10/24/19 21 10/24/2020 CBC w/ auto diff album, serum 4.3 normal Not Available [facility] [address] [facility] [address], [address], [place], [address], 11/02/2020 12:21:14 10/24/19 21 10/24/2020 CBC w/ auto diff calcium, serum 9.5 normal Not Available [facility] [address], [place], [address], 11/02/2020 12:21:14 10/24/19 21 10/24/2020 CBC w/ auto diff eGFR 53 low Not Available [facility] [address], [place], [address], 11/02/2020 12:21:14 10/24/19 21 10/24/2020 CBC w/ auto diff protein, total, serum 6.7 normal Not Available [facility] [address] [place] [address], [place], [address], 11/02/2020 12:21:14 05/24/20 17 05/24/2017 , janae Bergeron observ ation record ed. [email or web address] Not Available 2016 16:31:59 Result Notes None recorded. Problems Name Problem SNOMED Code Status Onset Date Resolution Date Notes Provider Name and Address Organization Details Recorded Time Chronic kidney disease stage 3 151963880 Active 2013 Not Available [facility] 5 13:00:54 Benign hypertensive renal disease 633594 Active 2013 Not Available [facility] 5 13:00:54 Hyperlipidemi a 08739124 Active 2013 Not Available [facility] 5 13:00:54 Essential hypertension 97289122 Active [address] [facility], [facility] 7 17:03:46 Total nephrectomy Active 2016 Roz Will [facility] Kidney Disease, [facility] 7 17:03:47 Problem Notes None recorded. Procedures Surgical History Date Name Laterality Status Provider Name and Address Organization Details Recorded Time 6 Other completed [facility] 08/13/2016 14:20:40 6 Shoulder joint surgery completed [facility] Kidney Disease, [facility] 08/13/2016 14:21:35 2 Nephrectomy completed [facility] Kidney Disease, [facility] 08/13/2016 14:20:55 Imaging Results None recorded. Procedure Notes None [...] height Body mass index (BMI) Body weight Heart rate Oxygen saturation Oxygen saturation in Arterial blood by Pulse oximetry Systolic blood pressure Diastolic blood pressure Provider Name and Address Organization Details Last Updated DateTime 9 167.64 cm 22 kg/m2 24885.5 6 g 60 /min 97 % 97 % 122 mm[Hg] 90 mm[Hg] An Ramachandran lynne [facility] Kidney Disease, [facility] 9 12:17:09 Date Recorded Body height Body mass index (BMI) Body weight Heart rate Systolic blood pressure Diastolic blood pressure Provider Name and Address Organization Details Last Updated DateTime 8 167.64 cm 21.6 kg/m2 57792.3 8 g 55 /min 130 mm[Hg] 82 mm[Hg] Peggy Powell [facility] Kidney Disease, [facility] 8 15:34:33 Date Recorded Body height Provider Name an d Address Organization Details Last Updated DateTime 02/04/2020 167.64 cm An Longrano [facility] a Kidney Disease, [facility] 02/04/2020 13:00:12 Date Recorded Body height Body mass index (BMI) Body weight Heart rate Oxygen saturation Oxygen saturation in Arterial blood by Pulse oximetry Systolic blood pressure Diastolic blood pressure Provider Name and Address Organization Details Last Updated DateTime 9 167.64 cm 21.5 kg/m2 98974.7 9 g 95 /min 98 % 98 % 124 mm[Hg] 60 mm[Hg] Leatha Buckley [facility], [facility] 9 12:50:35 Date Recorded Body height Body mass index (BMI) Body weight Heart rate Systolic blood pressure Diastolic blood pressure Provider Name and Address Organization Details Last Updated DateTime 7 167.64 cm 21 kg/m2 91830.0 1 g 66 /min 120 mm[Hg] 80 mm[Hg] Peggy Powell [facility] 7 16:13:15 Social History Question Answer Notes LastModified by Organizat ion Details LastModified Time Tobacco Smoking Status Never Smoker Halie marcelo [facility] 08/13/2016 14:19:58 Do You Have An Advance Directive? No Information n ot available 08/13/2016 Education 2 Year College Degree [...] not available 08/13/2016 Sex: Unknown Functional Status Question Answer Note LastModified by Organizat ion Details LastModified Time What is your level of alcohol consumption? Occasional 1 drink a week Information not available 08/13/2016 Mental Status None recorded. Family History Relationship [...] SNOMED-CT Code Diagnosis ICD10 Code Diagnosis Note [id number] [facility] [address] [place] [address] 03/26/2014 00:00:00 [id number] [facility] [address] [place] [address] 05/24/2014 00:00:00 [id number] MD [facility] [address] [place] [address] 08/13/2016 13:38:15 08/13/2016 14:40:33 Chronic kidney disease stage 3 446508393 N18.3 G3a/A1, without proteinuri a in associatio n with solitary R kidney/CAU and HTN.Cr stable. Essential hypertension 39825749 I10 controlled .recommend ACEI/ARB. Total nephrectomy 892084 003 Z90.5 s/p L nephrectom y for CAU at age 7. [id number] MD [facility] [address] [place] [place] [address] 02/18/2017 16:27:32 02/18/2017 17:20:33 Chronic kidney disease stage 3 [id number] N18.3 G3a/A1, without proteinuri a in associatio n with solitary R kidney/CAU and HTN. Essential hypertension 99476776 I10 controlled .recommend ACEI/ARB. Total nephrectomy 272438 003 Z90.5 s/p L nephrectom y for CAU at age 7. [id number] MD [facility] [address] [place] [place] [address] 05/29/2017 15:45:50 05/29/2017 16:39:59 Chronic kidney disease stage 3 356509320 N18.3 G3a/A1, without proteinuri a in associatio n with solitary R kidney/CAU and HTN. Essential hypertension 80241565 I10 controlled .recommend ACEI/ARB. Total nephrectomy 480823 003 Z90.5 s/p L nephrectom y for CAU at age 7. [id number] MD [facility] [address] [place] [place] [address] 11/18/2017 15:20:10 11/18/2017 15:59:01 Chronic kidney disease stage 3 426804555 N18.3 G3a/A1.wit hout proteinuri a in associatio n with solitary R kidney/CAU and HTN. Essential hypertension 35453884 I10 controlled .stop Amlodipine .change to losartan 50mg qhs. Total nephrectomy 350314 003 Z90.5 s/p L nephrectom y for CAU at age 7. [id number] MD [facility] [address] [place] [place] [address] 09/04/2018 11:50:46 09/04/2018 12:38:35 Chronic kidney disease stage 3 185692300 N18.3 G3a/A1.wit hout proteinuri a in associatio n with solitary R kidney/CAU and HTN.GFR stable Essential hypertension 91669257 I10 controlled .on Norvasc 2.5 mg .Stopped Losartan on his own 6 months ago .Daily BP checks Total nephrectomy 899519 003 Z90.5 s/p L nephrectom y for CAU at age 7. [id number] MD [facility] [address] [place] [facility] [place] [address] 03/12/2019 12:41:48 03/12/2019 13:20:29 Chronic kidney disease stage 3 820566789 N18.3 G3a/A1.wit hout proteinuri a in associatio n with solitary R kidney/CAU and HTN.GFR stable is 44 today. Discussed with patient control his factors including avoiding NSAIDs and good control of hypertensi on. Hydration. Essential hypertension 28732002 I10 controlled .on Norvasc 2.5 mg .Stopped Losartan on his own 6 months ago .Daily BP checks Total nephrectomy 967543 003 Z90.5 s/p L nephrectom y for CAU at age 7. [id number] MD [facility] [address] [facility] [place] [address] 02/04/2020 12:58:53 02/04/2020 14:35:10 Chronic kidney disease stage 3 375448454 N18.3 G3a/A1.wit hout proteinuri a in associatio n with solitary R kidney/CAU and HTN.GFR stable is 44 today. Discussed with patient control his factors including avoiding NSAIDs and good control of hypertensi on. Hydration. Discussed with her that he may have enlarged prostate. He will follow-up with urology. Essential hypertension 79503026 I10 controlled .on Norvasc 2.5 mg .Stopped Losartan on his own 6 months ago .Daily BP checks Total nephrectomy 928261 003 Z90.5 s/p L nephrectom y for CAU at age 7. Health Concerns Section Related Observation LastModified by Organization Detai ls LastModified Time None Recorded Concern Status LastModified by Organization Details LastModified Time None Recorded Advance Directives Directive N: Payers Insurance Date Sequence Insurance Name Policy Number Policy Bruno Covered Member ID Bruno Member ID Guarantor Name 08/06/2016 1 *SELF PAY* Th cirilo Moore Pfbetzyz 04/10/2019 SLIDING FEE SCHEDULE - DISCOUNT Jerry Greenz 02/06/2021 1 [place] Jerry Ballesteros [id number] Jerry Ballesteros Notes Date Note Type Note [...] well. Josep Elliott MD [address], [place], [address], [facility], [facility] 05/29/2017 16:36:36 11/18/2017 text/html 62 year [...] well. Josep Elliott MD [address] ,[address], [place], [address], 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 He also had diffused urethral stenosis found [...] Brooks MD [address] ,[address], [place], [address], 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 Nerissa Brooks MD [address], [place], [address], [facility], [facility] 03/12/2019 15:11:42 02/04/2020 text/html This visit was [...] noticed some dribbling Nerissa Brooks MD [address], [place], [address], [facility] 02/04/2020 16:19:29
--- OUTSIDE RECORDS SUMMARY | 2025-03-02 17:15 | XMS_ITS | Continuity of Care Document ---
Author Organization [facility] Address [address] 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 [...] instructions recorded. Reason for Referral None Reported. Problems Name Problem SNOMED Code Status Onset Date Resolution Date Notes Provider Name and Address Organization Details Recorded Time Retention of urine [id number] Active [facility] DEBRA GOULD MD [address] [place] [address], [address], [facility] 5 18:09:58 Neurogenic urinary bladder 667592697 Active [facility] DEBRA GOULD MD [address] [place] [address] [place] [address], [address], [facility] 5 18:10:05 Problem Notes None recorded. Procedures Surgical History Date Name Laterality Status Provider Name and Address Organization Details Recorded Time 5 Bladder Scan cancelled Kayla Denson [facility] 09/11/2024 15:45:28 3 Bladder Scan completed Pilar Simth [facility] 08/22/2023 10:45:31 3 UroCuff completed Erma Alves [facility] 08/08/2023 16:46:48 3 Bladder Scan completed Erma Alves [facility] 08/08/2023 16:22:41 3 Bladder Scan completed Romie Santos [facility] 02/27/2023 15:07:12 3 Bladder Scan completed Venkatesh Ontiveros MD [address], [place], [address], [facility] 09/27/2022 12:46:00 0 colonoscopy completed Pilar Smith [facility] 08/22/2023 10:42:53 Imaging Results None recorded. [...] Time Tobacco Smoking Status Former Smoker Miriam marcelo, [place] [facility] 09/27/2022 12:24:21 What Is Your Level Of Caffeine Consumption? Moderate Information not available 02/27/2023 When Did You Quit Smoking? 1-5yearssince lastcigarette Information not available 08/22/2023 Recreational Drug Use No Information not available 02/27/2023 What Was The Date Of Your Most Recent Tobacco Screening? 08/22/2023 [email or web address] Information not available 08/22/2023 What Is Your Relationship Status? Single Information not available 02/27/2023 How Many Years Have You Smoked Tobacco? 30 Information not available 02/27/2023 Sex: Unknown Functional Status Question Answer Note LastModified by Organizat ion Details LastModified Time Do you use any illicit or recreational drugs? No Information not available 02/27/2023 What is your level of alcohol consumption? None Information not available 02/27/2023 Are you currently employed? No Information not available 02/27/2023 Mental Status None recorded. Family History Nothing [...] 50 mcg/0.5 mL 3 completed Pilar marcelo [facility] 08/22/2023 10:42:13 Influenza, split virus, quadrivalent, PF 3 completed Pilar marcelo [facility] 08/22/2023 10:42:13 COVID-19, mRNA, LNP-S, PF, 50 mcg/0.5 mL 4 completed Not Available [facility] 03/01/2025 14:54:25 Influenza, split virus, trivalent, preservative 4 completed [facility] 03[facility] 14:54:25 zoster recombinant 2 completed Jenny marcelo [facility] 07/03/2023 17:11:29 zoster recombinant 2 completed Jenny marcelo [facility] 07/03/2023 17:11:29 COVID-19, mRNA, LNP-S, PF, 100 mcg/0.5mL dose or 50 mcg/0.25mL dose 1 completed Jenny marcelo [facility] 07/03/2023 17:11:29 COVID-19, mRNA, LNP-S, PF, 100 mcg/0.5mL dose or 50 mcg/0.25mL dose 1 completed Jenny marcelo [facility] 07/03/2023 17:11:29 COVID-19, mRNA, LNP-S, PF, 100 mcg/0.5mL dose or 50 mcg/0.25mL dose 2 completed Jenny marcelo [facility] 07/03/2023 17:11:29 COVID-19, mRNA, LNP-S, PF, 100 mcg/0.5mL dose or 50 mcg/0.25mL dose 1 completed Jenny marcelo [facility] 07/03/2023 17:11:29 COVID-19, mRNA, LNP-S, bivalent, PF, 50 mcg/0.5 mL or 25mcg/0.25 mL dose 2 dayana marcelo [facility] 07/03/2023 17:11:29 Tdap 9 completed Jenny marcelo [facility] 07/03/2023 17:11:29 Influenza, split virus, trivalent, preservative 8 dayana marcelo [facility] 07/03/2023 17:11:29 Past Encounters Encounter ID Performer Location Encounter Start Date Encounter Closed Date Diagnosis/Indication Diagnosis SNOMED-CT Code Diagnosis ICD10 Code Diagnosis Note [id number] MD CHANDA ROMAN_Isabel [address] [place] [address] 03/01/2025 14:50:39 03/01/2025 16:41:07 Retention of urine [id number] R33.9 evaluated at [facility] most recently on 02/08/25per history and prior Urocuff he is voiding via CredeHe has been taught CIC but not performing he is concerned about increasing difficulty emptying bladder and required barrera placement winter 2024Multif actorial likely related to combinatio n of urethral stricture disease, BPH, chronic constipati on and I suspect progressiv e pelvic floor dysfunctio n and/or myogenic compromise perhaps related to congenital imperforat e anus s/p reconstruc tive surgery as a childhe is agreeable to further assessment (and to establish baseline) with urodynamic s Health Concerns Section Related Observation LastModified by Organization Detai ls LastModified Time None Recorded Concern Status LastModified by Organization Details LastModified Time None Recorded Payers Encounter Date Sequence Insurance Name Policy Number Policy Bruno Covered Member ID Bruno Member ID Guarantor Name 03/01/2025 1 [place]ICARE [place]: [employer] Jerry Ballesteros [id number] Jerry Ballesteros Notes Date Note Type Note Provider Name and Address Organization Details Recorded Time 03/01/2025 text/html Date of [id number]/01/2025 Indication:urinary retention Referring Physician:Fab Testing today included: Uroflow, multichannel cystometry, EMG, and pressure flow study. Details of procedure:After discussing the purpose and nature of visit, the patient consented to proceed.Uroflow:Uroflo w #1 (prior to CMG) Patient [id number] Maximum flow rate39.8mL/s Average flow rate9.3Post void [id number] mL (CIC) Uroflow #2 (post CMG- see nona notes) Patient [id number] Maximum flow rate23.4mL/s Average flow rate5 ml/sPost void residual<50 Filling phase: 7 fr air charged catheters were used. Fill rate:35-60mL/minute The first sensation of bladder filling occurred at55mL The first desire to void occurred [id number] The strong desire to void occurred [id number] The maximum capacity [id number] The bladder compliance isnormal Detrusor pressure during filling isnormal Detrusor Overactivity: No DO noted Stress Urinary Incontinence: No RUBIO Pressure flow study:Patient [id number] after permission to void was given. Maximum flow rate3.4mL/s with PDet at max flow-2cm H2O. Post void [id number] mL. Visual detrusor contractionwas notnoted. Abdominal strainingwasnoted. EMG: The sphincteric EMG showsanincrease in activity with increased abdominal pressure. The EMG activitydoesshow relaxation with permission to void. Nona Notes: UDS is indicative of atonic bladder- patient is reliant on abdominal straining to empty bladder Patient was only able to void 99mL during voiding phase CMG. I offered repeat uroflow once catheters/sensors were removed. Pt was able to empty residual contents this way. Nona name:An marcelo [place] [facility] 03/01/2025 16:41:02
--- OUTSIDE RECORDS SUMMARY | 2025-03-02 17:15 | XMS_ITS | Data Portability ---
Author Organization [place] [facility] [place] [facility], [facility] Address [address] [place] [address] Care Team Providers Care [employer] Repairer Name Role Phone MARINE HAAS Primary Care [...] 023 [email or web address] [facility], [address], [place], [address], 15:08:08 urinalysis , dipstick 2022 023 [email or web address] [facility], [address], [place], [address], 12:14:01 Referral None recorded. Procedures None recorded. Surgeries None recorded. Imaging None recorded. Medication Orders None recorded. Patient TargetsNo targets recorded. Patient InstructionsNo instructions recorded. Reason for Referral None Reported. Results Created Date Observation Date Name Description Value Unit Range Abnormal Flag Note LastModifiedBy Organization Detail LastModifiedTime 09/27/1909/27/2022 urina lysis , dipst ick Sp [place]-Stat us 1.005 Not Available [facility] [address], [place], [address], 09/27/2022 12:12:58 09/27/1909/27/2022 urina lysis , dipst ick pH-Status 6.0 Not Available [facility] [address], [place], [address], 09/27/2022 12:12:58 09/27/19 23 09/27/2022 urina lysis , dipst ick Nitrates-Sta tus negati ve Not Available [facility] [address], [place], [address], 09/27/2022 12:12:58 09/27/1909/27/2022 urina lysis , dipst ick Blood-Status Trace Not Available [facility] [address], [place], [address], 09/27/2022 12:12:58 09/27/1909/27/2022 urina lysis , dipst ick Leuko-Status Negati ve Not Available [facility] [address], [place], [address], 09/27/2022 12:12:58 02/28/20 23 02/27/2023 urina lysis , dipst ick Color-Status Yellow Not Available [facility] [address], [place], [address], 02/27/2023 15:07:16 02/28/20 23 02/27/2023 urina lysis , dipst ick Clarity-Stat us Clear Not Available [facility] [address], [place], [address], 02/27/2023 15:07:16 02/28/20 23 02/27/2023 urina lysis , dipst ick Glucose-Stat us Negati ve Not Available [facility] [address], [place], [address], 02/27/2023 15:07:16 02/28/20 23 02/27/2023 urina lysis , dipst ick Nitrates-Sta tus negati ve Not Available [facility] [address], [place], [address], 02/27/2023 15:07:16 02/28/20 23 02/27/2023 urina lysis , dipst ick Blood-Status Negati ve Not Available [facility] [address], [place], [address], 02/27/2023 15:07:16 02/28/20 23 02/27/2023 urina lysis , dipst ick Leuko-Status Negati ve Not Available [facility] [address], [place], [address], 02/27/2023 15:07:16 10/02/19 23 09/27/2022 bladd er scan (PROC ) No observ ation record ed. Not Available 2022 22:09:27 03/01/20 23 02/27/2023 bladd er scan (PROC ) No observ ation record ed. BARCODE Not Available 2022 15:39:28 Result Notes None recorded. Problems Name Problem SNOMED Code Status Onset Date Resolution Date Notes Provider Name and Address Organization Details Recorded Time Retention of urine 375892926 Active 025 DEBRA GOULD MD [address] [place] [address],[address], [place], [address], [facility] 5 18:09:58 Neurogenic urinary bladder 594612331 Active 025 DEBRA GOULD MD [address] [place] [address],[address], [place], [address], [facility] 5 18:10:05 Problem Notes None recorded. Procedures Surgical History Date Name Laterality Status Provider Name and Address Organization Details Recorded Time 5 Bladder Scan cancelled Kayla Denson [facility] 09/11/2024 15:45:28 3 Bladder Scan completed Pilar Smith [facility] 08/22/2023 10:45:31 3 UroCuff completed Erma Alves [facility] 08/08/2023 16:46:48 3 Bladder Scan completed Erma Alves [facility] 08/08/2023 16:22:41 3 Bladder Scan completed Romie Santos [facility] 02/27/2023 15:07:12 3 Bladder Scan completed Venkatesh Ontiveros MD [address] [place] [address],[address], [place], [address], [facility] 09/27/2022 12:46:00 0 colonoscopy completed Pilar Smith [facility] 08/22/2023 10:42:53 Imaging Results None recorded. Procedure [...] Updated DateTime 09/27/2022 168.91 cm 24.6 kg/m2 [address]0620.[address] [facility] 09/27/2022 12:18:06 Date Recorded Body height Body mass index (BMI) Body weight Provider Name and Address Organization Details Last Updated DateTime 02/27/2023 168.91 cm 24.6 kg/m2 [address] [facility] 02/27/2023 15:03:45 Date Recorded Body height Body mass index (BMI) Body weight Provider Name and Address Organization Details Last Updated DateTime 08/22/2023 168.91 cm 26.2 kg/m2 [address]598.[address] [facility] 08/22/2023 10:42:08 Social History Question Answer Notes LastModified by Organizat ion Details LastModified Time Tobacco Smoking Status Former Smoker Miriam marcelo [facility] 09/27/2022 12:24:21 What Is Your Level Of Caffeine Consumption? Moderate Information not available 02/27/2023 When Did You Quit Smoking? 1-5yearssince lastcired [email or web address] Information not available 08/22/2023 Recreational Drug Use No Information not available 02/27/2023 What Was The Date Of Your Most Recent Tobacco Screening? 08/22/2023 [email or web address] Information not available 08/22/2023 What Is Your [...] 50 mcg/0.5 mL [address] [facility] 08/22/2023 10:42:13 Influenza, split virus, quadrivalent, PF [address] [facility] 08/22/2023 10:42:13 COVID-19, mRNA, LNP-S, PF, 50 mcg/0.5 mL 4 completed Not Available [facility] 03/01/2025 14:54:25 Influenza, split virus, trivalent, preservative 4 completed Not Available [facility] 03/01/2025 14:54:25 zoster recombinant [address] [facility] 07/03/2023 17:11:29 zoster recombinant [address] [facility] 07/03/2023 17:11:29 COVID-19, mRNA, LNP-S, PF, 100 mcg/0.5mL dose or 50 mcg/0.25mL dose [address] [facility] 07/03/2023 17:11:29 COVID-19, mRNA, LNP-S, PF, 100 mcg/0.5mL dose or 50 mcg/0.25mL dose [address] [facility] 07/03/2023 17:11:29 COVID-19, mRNA, LNP-S, PF, 100 mcg/0.5mL dose or 50 mcg/0.25mL dose [address] [facility] 07/03/2023 17:11:29 COVID-19, mRNA, LNP-S, PF, 100 mcg/0.5mL dose or 50 mcg/0.25mL dose [address] [facility] 07/03/2023 17:11:29 COVID-19, mRNA, LNP-S, bivalent, PF, 50 mcg/0.5 mL or 25mcg/0.25 mL dose [address] [facility] 07/03/2023 17:11:29 Tdap 9 completed Jenny marcelo [facility] 07/03/2023 17:11:29 Influenza, split virus, trivalent, preservative [address] [facility] 07/03/2023 17:11:29 Past Encounters Encounter ID Performer Location Encounter Start Date Encounter Closed Date Diagnosis/Indication Diagnosis SNOMED-CT Code Diagnosis ICD10 Code Diagnosis Note [id number] Venkatesh Ontiveros MD [facility] [address] [place] [address] 09/27/2022 11:56:38 10/01/2022 14:14:58 Urethral stricture 15969910 N35.919 - Will set up for Q6 month UroCuff- PVR today 134 mL- If evidence of recurrence then would recommend Optilume dilation Recurrent urinary tract infection 933747711 N39.0 - Start TheraCran given recurrent E coli UTIs [id number] Venkatesh Ontiveros MD [address] [place], [place] [address] 02/27/2023 14:11:30 03/07/2023 08:28:19 Urethral stricture 42121352 N35.919 - Will set up for UroCuff- PVR today 21 mL- If evidence of recurrence then would recommend Optilume dilation Recurrent urinary tract infection N39.0 - Start TheraCran given recurrent E coli UTIs- Could also add d-Mannose supplement [id number] Venkatesh Ontiveros MD [address] [place] [address] 08/08/2023 10:50:58 08/16/2023 11:25:54 Urethral stricture 39459857 N35.919 [id number] Venkatesh Ontiveros MD [address] [place] [address] 08/22/2023 10:36:02 09/04/2023 10:08:51 Urethral stricture 80406797 N35.919 - UroCuff reviewed- IPSS: 5 (2)- PVR today 35 mL- If evidence of recurrence then would recommend Optilume dilation- Follow up in 1 year with UroCuff Recurrent urinary tract infection N39.0 - Continue TheraCran given recurrent E coli UTIs- Could also add d-Mannose supplement [id number] DEBRA GOULD MD [address] [place], [place] [address] 03/01/2025 14:50:39 03/01/2025 16:41:07 Retention of urine 861628544 R33.9 evaluated at [facility] most recently on 02/08/25per history and prior [...] Recorded Advance Directives Directive None Recorded Payers Insurance Date Sequence Insurance Name Policy Number Policy Bruno Covered Member ID Bruno Member ID Guarantor Name 03/01/2025 1 [place]ICARE [place]: [employer] Jerry Ballesteros [id number] Jerry Ballesteros Notes Date Note Type Note Provider Name and Address Organization Details Recorded Time 09/27/2022 text/html Mr. Ballesteros is a very pleasant 67-year-old male with a history of imperforate anus, solitary kidney, and history of urethral stricture disease requiring multiple dilations. Patient states that his last dilation was about [address] Prabhakar. Was seeing a Pulmonology Physician while living in [place] but it has been quite some time since he has seen a Urologist. No established nephrology care here in [place].Current urination consists of: urinary frequency with some straining to void. Does experience any suprapubic pain, dysuria, or hematuria. Does feel as though his stream has weakened over the last few years but does feel as though he voids to completion. No issues with urinary tract infections.Not interested in any invasive intervention but would like to follow his renal function closely.01/03/22Here for follow up chronic congenital urethral stricture. Now s/p dilation. Doing well. Intermittent hematuria but improving. 09/27/2022:Here for follow up chronic congenital urethral stricture. Recently diagnosed with bahena-sensitive E coli infection. Overall reports that he feels like he is doing well. No recurrence of pain, does not feel like he needs to strain any more than usual. Venkatehs Ontiveros MD [address], [place], [address], [facility] 09/27/2022 12:46:39 02/27/2023 text/html Mr. Ballesteros is a very pleasant 67-year-old male with a history of imperforate anus, solitary kidney, and history of urethral stricture disease requiring multiple dilations. Patient states that his last dilation was about [address] Prabhakar. Was seeing a Pulmonology Physician while living in [place] but it has been quite some time since he has seen a Urologist. No established nephrology care here in [place].Current urination consists of: urinary frequency with some straining to void. Does experience any suprapubic pain, dysuria, or hematuria. Does feel as though his stream has weakened over the last few years but does feel as though he voids to completion. No issues with urinary tract infections.Not interested in any invasive intervention but would like to follow his renal function closely.01/03/22Here for follow up chronic congenital urethral stricture. [...] since started cranberry supplement. Venkatesh Ontiveros MD [address] [place] [address],[address], [place], [address], [facility] 02/27/2023 22:10:59 08/22/2023 text/html Mr. Ballesteros is a very pleasant 67-year-old male with a history of imperforate anus, solitary kidney, and history of urethral stricture disease requiring multiple dilations. Patient states that his last dilation was about [address] Prabhakar. Was seeing a Pulmonology Physician while living in [place] but it has been quite some time since he has seen a Urologist. No established nephrology care here in [place].Current urination consists of: urinary frequency with some straining to void. Does experience any suprapubic pain, dysuria, or hematuria. Does feel as though his stream has weakened over the last few years but does feel as though he voids to completion. No issues with urinary tract infections.Not interested in any invasive intervention but would like to follow his renal function closely.01/03/22Here for follow up chronic congenital urethral stricture. [...] well, no recent UTIs. Venkatesh Ontiveros MD [address] [place] [address],[address], [place], [address] 08/22/2023 13:34:58 03/01/2025 text/html Date of Hxvikst3803/01/2025 Indication:urinary retention Referring Physician:Fab Testing today included: Uroflow, multichannel cystometry, EMG, and pressure flow study. Details of procedure:After discussing the purpose and nature of visit, the patient consented to proceed.Uroflow:Uroflo w #1 (prior to CMG) Patient [id number] Maximum flow rate39.8mL/s Average flow rate9.3Post void [id number] mL (CIC) Uroflow #2 (post CMG- see nona notes) Patient [id number] Maximum flow rate23.4mL/s Average flow rate5 ml/sPost void residual<50 Filling phase: 7 fr air charged catheters were used. Fill rate:35-60mL/minute The first sensation of bladder filling occurred at55mL The first desire to void occurred [id number] The strong desire to void occurred [id number] The maximum capacity [id number] The bladder compliance isnormal Detrusor pressure during filling isnormal Detrusor Overactivity: No DO noted Stress Urinary Incontinence: No RUBIO Pressure flow study:Patient [id number] after permission to void was given. Maximum flow rate3.4mL/s with PDet at max flow-2cm H2O. Post void [id number] mL. Visual detrusor contractionwas notnoted. Abdominal strainingwasnoted. [...] to empty residual contents this way. Nona name:SOR[place] Moore RN - [facility] 03/01/2025 16:41:02
--- NOTE | 2025-03-02 17:24 | ED_ITS ---
HPI - General Adult General Chief complaint: Nausea/Vomiting Stated complaint: feels sick in the stomach Time Seen by Provider: 03/02/25 17:24 History of Present Illness HPI narrative: Had procedure at [facility] yesterday to clear the bladder out. [place] fine last night, today feels decreased urinary output . 15 minutes ago, started feeling very nauseated, chilled. Started self?cathing 3 months ago, but I only do it when I can't pee. 69-year-old man presenting to the emergency department. Initially recognizes his struggles with anxiety. Apparently had urodynamic study yesterday with unknown results at this point. Had had to skip some pre or probiotic supplementation he had been doing. It sounds like he thought he would make up for it with a multivitamin today and sounds like it took that on empty stomach. He had enjoyed lying in the sun historically and happened to be there shortly after taking this multivitamin. Had been laying in the sun for 25 minutes or so. Developed stomach upset. He is initially puzzled as to why this may have been. Then became chilled and shaking. He has not recorded a fever. Significant nausea and belching and just stomach upset. He has not vomited. Had per usual loose bowel movements recently. Complaint also abdominal fullness but not so much pain. Not feeling short of breath. He does not have to self cath regularly. Related Data Home Medications ?Medication ?Instructions ?Recorded ?Confirmed clonazepam 0.5 mg tablet 0.5 mg PO DAILY 12/02/2202/24 mirtazapine 7.5 mg tablet 7.5 mg PO QPM 12/02/2203/02 pravastatin 40 mg tablet 40 mg PO DAILY 12/02/2209/26 amlodipine 5 mg tablet 5 mg PO DAILY 03/11/2303/02 aspirin 81 mg tablet,delayed 81 mg PO DAILY 09/06/23 0 03/02/25 release (Adult Aspirin Regimen) Allergies Allergy/AdvReac Type Severity Reaction Status Date / Time No Known Drug Allergies Allergy Verified 03/02/25 17:19 Review of Systems Status of ROS: Reports: 6 or more systems reviewed and unremarkable except as noted in History and below PFSH PFSH Social History Smoking Status: Never smoker Do you use any of these nicotine containing products: None How often do you have a drink containing alcohol: never How often do you have six or more drinks on one occasion: Never AUDIT-C Alcohol total score: 0 Non-prescribed substance use: denies use service: No Exam Narrative: Exam Narrative: Pleasant. Generally little tremulous. Talkative. Mouth sounds sticky. Breathing easily. Anxious. Abdomen soft. Uncomfortable to palpation across the mid and low. Feels generally full. Belches. Lungs are clear. Heart is in elevated but regular rhythm. Extremities are well perfused without edema. Does have an elevated temperature 100.3?. Unable to get a good initial bladder scan as would not lie back nor be quiet/still initially. Drinking water. We do recheck of temperature at 98.8? about an hour later. Const: Vital Signs, click to edit/add: Vital Signs - 24 hr 03/02/25 17:14 03/02/25 18:33 03/02/25 19:49 Temperature 100.3 F H 98.8 F Pulse Rate 96 Pulse Rate [Pulse Oximeter] 111 H Respiratory Rate 18 Blood Pressure 119/78 Blood Pressure [Ri ght Upper Arm] 127/77 Pulse Oximetry 94 93 Oxygen Delivery Me thod Room Air 03/02/25 19:58 Temperature 99.5 F Pulse Rate Pulse Rate [Pulse Oximeter] Respiratory Rate Blood Pressure Blood Pressure [Ri ght Upper Arm] Pulse Oximetry Oxygen Delivery Me thod Documenting provider has reviewed patient's vital signs: yes Course Vital Signs Vital signs: Initial Vital Signs Temperature 100.3 F H 03/02/25 17:14 Temperature Source Oral 03/02/25 17:14 Pulse Rate 111 H 03/02/25 17:14 Respiratory Rate 18 03/02/25 17:14 Blood Pressure 127/77 03/02/25 17:14 Blood Pressure Mean 93 03/02/25 17:14 Blood Pressure Position Sitting 03/02/25 17:14 Pulse Oximetry 94 03/02/25 17:14 Oxygen Delivery Method Room Air 03/02/25 17:14 Vital Signs Temperature 100.3 F H 03/02/25 17:14 Pulse Rate 111 H 03/02/25 17:14 Respiratory Rate 18 03/02/25 17:14 Blood Pressure 127/77 03/02/25 17:14 Pulse Oximetry 94 03/02/25 17:14 Oxygen Delivery Method Room Air 03/02/25 17:14 Temperature 99.5 F 03/02/25 19:58 Pulse Rate 96 03/02/25 19:49 Respiratory Rate 18 03/02/25 17:14 Blood Pressure 119/78 03/02/25 19:49 Pulse Oximetry 93 03/02/25 19:49 Oxygen Delivery Method Room Air 03/02/25 17:14 Medications Administered Medications: Generic Name Dose Route Start Last Admin Trade Name Freq PRN Reason Stop Dose Admin Acetaminophen 1,000 mg 03/02/25 20:46 03/02/25 20:55 Acetaminophen 500 Mg Tablet PO 03/02/25 20:47 1,000 mg ONCE ONE Administration Ceftriaxone Sodium 1 gm/ 100 mls @ 200 mls/hr 03/02/25 20:53 03/02/25 21:18 Sodium Chloride IVPB 03/02/25 20:54 200 mls/hr ONCE ONE Administration Discontinued Medications Generic Name Dose Route Start Last Admin Trade Name Freq PRN Reason Stop Dose Admin Sodium Chloride 1,000 mls @ 1,000 mls/hr 03/02/25 19:57 03/02/25 20:55 0.9 % Sodium Chloride 1000 Ml IV 03/02/25 20:56 1,000 mls/hr .Q1H ONE Administration Lidocaine/Aluminum/Magnesium/Simeth 30 ml 03/02/25 17:48 03/02/25 17:57 Gi Cocktail (Visc Lido/Antacid) 30 Ml PO 03/02/25 17:49 30 ml ONCE ONE Administration Ondansetron HCl 4 mg 03/02/25 17:48 03/02/25 17:57 Ondansetron Odt 4 Mg Tab PO 03/02/25 17:49 4 mg ONCE ONE Administration Medical Decision Making MDM Narrative Medical decision making narrative: I do know if these shakes and feeling chilled might represent some rigors or more significant infectious etiology. Clearly has indigestive symptoms and some degree of nausea. This may simply have been related to this multivitamin on an empty stomach and this discomfort further exacerbating significant underlying anxiety. Would like to just check and make sure he does not have a urinary tract infection. And treat this epigastric discomfort he seems to be experiencing and then reassess. Given a Zofran and GI cocktail. He has continued to drink straight water which I think might be exacerbating stomach upset. We are able to recheck bladder scan recorded 50 mL. Historically there is likely a little bit more than measured with this bladder scanner. Does report improvement though. Is no longer with discomfort to palpation across the upper abdomen. He does seem much more calm on reassessment. Gets up and ambulates to the bathroom. Skin feels warm to palpation. Urinalysis does look infected. Does acknowledge that he missed some of the doses of preprocedural antibiotics. I have asked for recheck on vitals. Pulse remains in mid 90s to tachycardic; palpates tachycardic for me. Stable blood pressure. I had discussed getting injection of Rocephin and continuing cephalexin. I had been discussing potential admission and he would prefer not to be admitted. Also expressing some concerns of diarrhea related to antibiotics. I remain concerned of more significant illness. Would like to check labs at a minimum for baseline. Will take that opportunity for blood cultures as well. Initiating fluid bolus initially with normal saline. Last urine culture I have available to me is from 12/23 showing E coli with bahena sensitivity Lactate returns at 1.5. CRP also reassuring. Does not meet sepsis criteria. Does meet sirs criteria. Having discussed however likely source of infection in his urine now continuing to express concern over his chronic bowel problems now and potentially worse with antibiotics and more concerned about returning home thinking that he would like to be admitted. I do not think it is unreasonable to trial at home though have expressed my concerns as well. He is concerned about filling up his bladder now that we have fluid resuscitated him. He is feeling more belchy. He is requesting admission as he does not feel well. I have discussed with hospitalist for admission. He has been ordered for a dose of the Rocephin. He is also trialing some oral yogurt. Medical Records Medical records reviewed: Yes I reviewed the patient's medical records Lab Data Lab results reviewed: Yes I reviewed the patient's lab results Labs: Lab Results 03/02/25 03/02/25 03/02/25 Range/Units 19:30 20:10 20:40 WBC 18.72 H (4.50-11.00) K/uL RBC 4.52 (4.30-5.90) m/uL Hgb 13.9 (13.5-17.5) gm/dL Hct 40.5 (37.0-53.0) % MCV 90 (80-100) fL MCH 31 (26-34) pg MCHC 34 (32-36) gm/dL RDW Coeff of Barbara 12.5 (11.5-15.5) % Plt Count 238 (140-440) K/uL Neut % (Auto) 86.3 H (42.0-72.0) % Lymph % (Auto) 3.8 L (20-44) % [place] % (Auto) 9.4 (0.0-11.0) % Eos % (Auto) 0.0 (0.0-7.0) % Baso % (Auto) 0.1 (0.0-3.0) % Neut # (Auto) 16.20 H (1.7-7.0) K/uL Lymph # (Auto) 0.70 L (0.90-2.90) K/uL [place] # (Auto) 1.80 H (0.00-0.90) K/UL Eos # (Auto) 0.00 (0.00-0.50) K/uL Baso # (Auto) 0.00 (0.00-0.30) K/uL Abs Immat Gran (auto) 0.10 (0.00-0.30) K/uL Imm/Tot Granulo (auto) 0.4 % Sodium 133 L (135-149) mmol/L Potassium 4.0 (3.6-5.1) mmol/L Chloride 101 (96-114) mmol/L Carbon Dioxide 23 (20-32) mmol/L Anion Gap 9 (7-15) mEq/L BUN 24 (7-30) mg/dL Creatinine 1.4 (0.5-1.5) mg/dL Estimated Creat Clear 47.87 Estimated GFR 55 ml/min Glucose 113 (60-115) mg/dL Lactate 1.5 (0.5-1.9) mmol/L Calcium 9.0 (8.4-10.6) mg/dL C-Reactive Protein 0.7 (0.5-1.0) mg/dL Urine Color Yellow (Yellow) Urine Appearance Cloudy A (Clear) Urine pH 5.5 (5.0-8.5) Ur Specific [place] 1.015 (1.000-1.030) Urine Protein 2+ A (Negative) Urine Glucose (UA) Negative (Negative) Urine Ketones Negative (Negative) Urine Blood 2+ A (Negative) Urine Nitrite Negative (Negative) Urine Bilirubin Negative (Negative) Urine Urobilinogen 0.2 (0.2-1.0) Ur Leukocyte Esterase 2+ A (Negative) Urine RBC 2-5 A (0-2) Urine WBC 25-50 A (0-5) Ur Squamous Epith Cells Moderate A (None-Few) Urine Bacteria Moderate A (None) SARS-CoV-2 (PCR) Negative SARS-CoV-2 (Negative) Discharge Plan Discharge Clinical Impression: Acute UTI, SIRS (systemic inflammatory response syndrome) Patient Disposition: Admitted As Observation Condition: Improved
--- OUTSIDE RECORDS SUMMARY | 2025-03-02 17:54 | XMS_ITS | CCD ---
Author Name Interface, [id number] [address] Organization [facility] [place] [address] Allergies and Adverse Reactions Medication/Group Name Reaction [...] 8 active Problems Diagnosis Status Date of Diagnosis Resolution Date Body mass index [BMI] 19.9 or less, adult Inactive Body mass index [BMI] 23.0-23.9, adult Inactive Body mass index [BMI] 22.0-22.9, adult Inactive Complete fecal incontinence (finding) Active Incontinence of feces (finding) Active Social History Date Name Value Sex Male
--- OUTSIDE RECORDS SUMMARY | 2025-03-02 17:54 | XMS_ITS | CCD ---
Author Name Interface, [id number] [address] Organization [facility] [place] [address] Allergies and Adverse Reactions Medication/Group Name Reaction [...]
[2025-03-02] MEDS: GI COCKTAIL (VISC LIDO/ANTACID) 30 ML PO (17:57)
[2025-03-02] MEDS: ONDANSETRON ODT 4 MG TAB PO (17:57)
[2025-03-02 19:39] LABS: Appearance Urine Cloudy (Clear)
[2025-03-02 20:14] LABS: Lactate* 1.5 mmol/L (0.5-1.9)
[2025-03-02 20:18] LABS: Hematocrit 40.5 % (37.0-53.0); Hemoglobin* 13.9 gm/dL (13.5-17.5); Immature Granulocytes Pct Auto 0.4 %; Mean Corpuscular HGB Conc 34 gm/dL (32-36); Mean Corpuscular Hemoglobin 31 pg (26-34); Mean Corpuscular Volume 90 fL (80-100); RDW Coefficient of Variation % 12.5 % (11.5-15.5); Red Blood Count 4.52 m/uL (4.30-5.90); White Blood Count* 18.72 K/uL (4.50-11.00)
[2025-03-02 20:25] LABS: Immature Granulocytes Abs Auto 0.10 K/uL (0.00-0.30); Lymphocytes Absolute Auto 0.70 K/uL (0.90-2.90)
[2025-03-02 20:26] LABS: Slide Review Reflex No
[2025-03-02 20:34] LABS: Chloride* 101 mmol/L (96-114)
[2025-03-02 20:35] LABS: Potassium* 4.0 mmol/L (3.6-5.1); Sodium* 133 mmol/L (135-149)
[2025-03-02 20:37] LABS: Blood Urea Nitrogen* 24 mg/dL (7-30); Creatinine* 1.4 mg/dL (0.5-1.5); Est. Creatinine Clearance* 47.87; Estimated Glomerular Filt Rate 55 ml/min
[2025-03-02 20:38] LABS: Anion Gap 9 mEq/L (7-15); Calcium* 9.0 mg/dL (8.4-10.6); Carbon Dioxide* 23 mmol/L (20-32); Glucose* 113 mg/dL (60-115)
[2025-03-02] MEDS: ACETAMINOPHEN 500 MG TABLET 1000 MG PO (20:55)
[2025-03-02 21:17] LABS: SARS PCR* Negative SARS-CoV-2 (Negative)
[2025-03-02] MEDS: cefTRIAXone 1 GM in 0.9 % SODIUM CHLORIDE Mini-bag 100 ML IVPB (21:18)
--- NOTE | 2025-03-02 22:32 | PM.IMHP1 ---
Assessment and Plan Assessment and plan (1) Acute UTI: Problem comment: Patient had urologic instrumentation 1 day prior to admission. Presents with SIRS, pyuria and bacteruria in this setting. -Monitor for sepsis -Monitor cultures -Continue IV rocephin, narrow as appropriate Status: Acute (2) SIRS (systemic inflammatory response syndrome): Problem comment: SIRS on presentation with tachycardia and leukocytosis. -Continue antibiotics, monitor VS Status: Acute (3) H/O urethral stricture: Problem comment: Patient had congenital hypospadius, has had urethral dilation in the past. 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 Denies ever seeing GI and may benefit from work up for possible IBS. -Recommend miralax or fiber supplementation, consider linzess. Status: Acute Hospitalist- H&P: HPI History of Present Illness Time Seen by Provider: 22:33 Date Seen: 03/02/25 Chief complaint: feels sick in the stomach Narrative: Jerry Ballesteros is a 69 year old male with a history of urethral and rectal stenosis, several months of intermittent urinary retention, chronic diarrhea/constipation, hypertension, hyperlipidemia and solitary kidney following nephrectomy in childhood who presented to the ER with vague complaints of not feeling well. Patient reports that he saw urology for a procedure the day prior to admission (details currently unclear, will need to get records) where he thinks he had urethral dilation and what sounds to be cystoscopy to evaluate for recent retention. He was supposed to take antibiotics pre-procedurally, but did not tolerate the pills (stomach upset), so did not take them. Following the appointment, he felt he was urinating well and did not have complaints. Today, patient reported that he had been feeling well, but then developed sudden onset dyspepsia and shaking of his whole body. He presented to the ER. His history is somewhat tangential and seems to be significantly affected by underlying anxiety. He follows with psychiatry and uses low dose clonazepam PRN, but anxiety does not seem well controlled at this time. In the ER, patient was tachycardic and had a mildly elevated temperature, but no fever. Laboratory work up revealed significant leukocytosis, but no elevated lactate or other findings consistent with sepsis. Urinalysis is concerning for infection with pyuria and bacteruria. He was given a dose of IV rocephin, but did not feel comfortable discharging home so he is admitted under observation for a complicated UTI in the setting of recent instrumentation Review of Systems Status of ROS: Reports: 10 or more systems reviewed and unremarkable except as noted in History and below GI: Reports: diarrhea and other (dyspepsia) : Reports: urinary urgency Neuro: Reports: headache Psych: Reports: anxiety Medical Decision Making Medical Decision Making Has patient completed a Health Care Directive: No [facility] Medical History (Updated 03/02/25 @ 22:56 by Michelle Meneses MD) Retention of urine (02/08/25) ?R33.9 - Retention of urine, unspecified (ICD-10) Hyperlipidemia (04/15/07) ?E78.5 - Hyperlipidemia, unspecified (ICD-10) H/O urethral stricture (03/01/21) ?Z87.448 - Personal history of other diseases of urinary system (ICD-10) Generalized anxiety disorder (03/01/21) ?F41.1 - Generalized anxiety disorder (ICD-10) Essential hypertension (02/18/17) ?I10 - Essential (primary) hypertension (ICD-10) 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) ?Q42.3 - Congenital absence, atresia and stenosis of anus without fistula (ICD-10) Chronic diarrhea (09/09/08) ?K52.9 - Noninfective gastroenteritis and colitis, unspecified (ICD-10) Benign hypertensive renal disease (03/26/14) ?I12.9 - Hypertensive chronic kidney disease with stage 1 through stage 4 chronic kidney disease, or unspecified chronic kidney disease (ICD-10) Acquired absence of kidney (02/18/17) ?Z90.5 - Acquired absence of kidney (ICD-10) Social History Smoking Status: Never smoker Do you use any of these nicotine containing products: None How often do you have a drink containing alcohol: never How often do you have six or more drinks on one occasion: Never AUDIT-C Alcohol total score: 0 Non-prescribed substance use: denies use service: No Meds Home Medications and Allergies Home Medications ?Medication ?Instructions ?Recorded ?Confirmed ?Type clonazepam 0.5 mg tablet 0.5 mg PO DAILY 12/02/22 09/07/24 History mirtazapine 7.5 mg tablet 7.5 mg PO QPM 12/02/22 03/02/25 History pravastatin 40 mg tablet 40 mg PO DAILY 12/02/22 03/02/25 History amlodipine 5 mg tablet 5 mg PO DAILY 03/11/23 03/02/25 History aspirin 81 mg tablet,delayed 81 mg PO DAILY 09/06/23 03/02/25 History release (Adult Aspirin Regimen) Allergies Allergy/AdvReac Type Severity Reaction Status Date / Time No Known Drug Allergies Allergy Verified 03/02/25 17:19 Exam Narrative: Exam Narrative: General: Anxious, fidgity, no acute distress HEENT: NCAT Resp: Comfortable breathing, CTAB CV: RRR, no m/g/r Abd: Soft, no masses, reports mild tenderness to palpation throughout Extremities: No edema Neuro: Nonfocal, no lateralizing deficits Const: Vital Signs, click to edit/add: Vital Signs - 24 hr 03/02/25 17:14 03/02/25 18:33 03/02/25 19:49 Temperature 100.3 F H 98.8 F Pulse Rate 96 Pulse Rate [Pulse Oximeter] 111 H Pulse Rate [Right Pulse Oximeter] Respiratory Rate 18 Blood Pressure 119/78 Blood Pressure [Ri ght Arm] Blood Pressure [Ri ght Upper Arm] 127/77 Pulse Oximetry 94 93 Oxygen Delivery Me thod Room Air 03/02/25 19:58 03/02/25 21:38 03/02/25 22:25 Temperature 99.5 F 99.4 F Pulse Rate 94 Pulse Rate [Pulse Oximeter] Pulse Rate [Right Pulse Oximeter] 93 Respiratory Rate 16 16 Blood Pressure 124/78 Blood Pressure [Ri ght Arm] 116/72 Blood Pressure [Ri ght Upper Arm] Pulse Oximetry 93 93 Oxygen Delivery Me thod Room Air Room Air Hospitalist - H&P: Result Labs Labs: Short CBC 03/02/25 Range/Units 20:10 WBC 18.72 H (4.50-11.00) K/uL Hgb 13.9 (13.5-17.5) gm/dL Hct 40.5 (37.0-53.0) % Plt Count 238 (140-440) K/uL BMP 03/02/25 20:10 Sodium 133 L Potassium 4.0 Chloride 101 Carbon Dioxide 23 BUN 24 Creatinine 1.4 Glucose 113 Calcium 9.0 Urine 03/02/25 Range/Units 19:30 Urine Color Yellow (Yellow) Urine Appearance Cloudy A (Clear) Urine pH 5.5 (5.0-8.5) Ur Specific [place] 1.015 (1.000-1.030) Urine Protein 2+ A (Negative) Urine Glucose (UA) Negative (Negative)
[2025-03-02 23:21] LABS: Chloride* 103 mmol/L (96-114)
[2025-03-02 23:22] LABS: Potassium* 3.8 mmol/L (3.6-5.1); Sodium* 133 mmol/L (135-149)
[2025-03-02 23:24] LABS: Blood Urea Nitrogen* 22 mg/dL (7-30); Creatinine* 1.4 mg/dL (0.5-1.5); Est. Creatinine Clearance* 47.87; Estimated Glomerular Filt Rate 55 ml/min
[2025-03-02 23:25] LABS: Anion Gap 6 mEq/L (7-15); Calcium* 8.7 mg/dL (8.4-10.6); Carbon Dioxide* 24 mmol/L (20-32); Glucose* 144 mg/dL (60-115)
[2025-03-03] VITALS (8 sets, daily range): BP systolic 111–129; BP diastolic 65–76; PULSE 70–95; RESP 16–18; TEMP 36.7–38.2; O2SAT 91–95
--- NOTE | 2025-03-03 04:31 | PC.NURSE ---
Shift note: Patient arrived to the floor at 2240 on wheelchair. Conscious, alert and oriented. Patient reported previous history of urinary retention which he undergo urodynamic study at [facility]. He confirmed that he has been self catheterized for about 3 months ago. He experienced nausea, chills and decrease urinary output for about 4 days ago. Temperature has been stable. No nausea or chills reported tonight. Patient urinary frequency but little urinary output.Patient is independent in room. SCD applied.
[2025-03-03 06:32] LABS: Hematocrit 38.2 % (37.0-53.0); Hemoglobin* 13.1 gm/dL (13.5-17.5); Immature Granulocytes Pct Auto 0.2 %; Lymphocytes Absolute Auto 1.30 K/uL (0.90-2.90); Mean Corpuscular HGB Conc 34 gm/dL (32-36); Mean Corpuscular Hemoglobin 31 pg (26-34); Mean Corpuscular Volume 90 fL (80-100); RDW Coefficient of Variation % 12.8 % (11.5-15.5); Red Blood Count 4.24 m/uL (4.30-5.90); White Blood Count* 21.77 K/uL (4.50-11.00)
[2025-03-03 06:35] LABS: Immature Granulocytes Abs Auto 0.00 K/uL (0.00-0.30); Slide Review Reflex No
[2025-03-03] MEDS: SODIUM CHLORIDE 0.9 % (FLUSH) 10 ML SYRINGE 5 ML IVF ×2 (09:56→20:12)
[2025-03-03] MEDS: ACETAMINOPHEN 325 MG TABLET PO (11:39)
--- NOTE | 2025-03-03 11:51 | P.IMPN_ITS ---
Assessment and Plan Assessment and plan (1) Acute UTI: Problem comment: Patient had urologic instrumentation 1 day prior to admission. Presents with SIRS, pyuria and bacteruria in this setting. -Monitor for sepsis -Monitor cultures -Continue IV rocephin, narrow as appropriate UC growing Gram-negative rods, awaiting final results and sensitivities, continuing ceftriaxone Status: Acute (2) SIRS (systemic inflammatory response syndrome): Problem comment: SIRS on presentation with tachycardia and leukocytosis. -Continue antibiotics, monitor VS Tachycardia has resolved. Leukocytosis trending up. Lactate 1.5. Continue current course, monitoring Status: Acute (3) H/O urethral stricture: Problem comment: Patient had congenital hypospadius, has had urethral dilation in the past. 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 Denies ever seeing GI and may benefit from work up for possible IBS. -Recommend miralax or fiber supplementation, consider linzess. Status: Acute Plan Continue IV antibiotics, awaiting urine culture results and sensitivities, given persisting fever, leukocytosis. Total Time Spent Total Time Spent: Today I spent 45 minutes seeing the patient, reviewing Expanse and EPIC notes/diagnostics, discussing the care plan with our care time that includes social work, PT/OT, pharmacy, RT, care home and documenting my impressions and plan in the medical record. Subjective Date Seen: 03/03/25 Interval history: Patient is seen sitting up in bed this morning. Quite anxious. Otherwise states he is feeling better. Low-grade fevers persist. Leukocytosis with mild elevation since admission. Lactate remains unremarkable. UC growing Gram-negative rods BC x2 pending MRSA pending Exam Narrative: Exam Narrative: PHYSICAL EXAM General: Quite anxious otherwise conversant, NAD HEENT: Normocephalic, atraumatic, sclera white, EOMI, oral mucosa moist Cardiovascular: RRR, S1S2. No pitting edema Pulmonary: CTA bilaterally without rhonchi, rales, expiratory wheezes. No dyspnea Abdominal: Soft, nondistended, NTTP Neurological: Alert, answering questions appropriately, cranial nerves intact, no focal findings Extremities: No gross joint deformity or swelling. AROMI. Neurovascularly intact Skin: Warm, dry. Const: Vital Signs, click to edit/add: Vital Signs - 24 hr 03/02/25 17:14 03/02/25 18:33 03/02/25 19:49 Temperature 100.3 F H 98.8 F Pulse Rate 96 Pulse Rate [Pulse Oximeter] 111 H Pulse Rate [Right Pulse Oximeter] Respiratory Rate 18 Blood Pressure 119/78 Blood Pressure [Ri ght Arm] Blood Pressure [Ri ght Upper Arm] 127/77 Pulse Oximetry 94 93 Oxygen Delivery Me thod Room Air 03/02/25 19:58 03/02/25 21:38 03/02/25 22:25 Temperature 99.5 F 99.4 F Pulse Rate 94 Pulse Rate [Pulse Oximeter] Pulse Rate [Right Pulse Oximeter] 93 Respiratory Rate 16 16 Blood Pressure 124/78 Blood Pressure [Ri ght Arm] 116/72 Blood Pressure [Ri ght Upper Arm] Pulse Oximetry 93 93 Oxygen Delivery Me thod Room Air Room Air 03/02/25 22:27 03/02/25 22:38 03/02/25 22:41 Temperature 99.4 F Pulse Rate Pulse Rate [Pulse Oximeter] Pulse Rate [Right Pulse Oximeter] 93 Respiratory Rate 16 16 16 Blood Pressure Blood Pressure [Ri ght Arm] 116/72 Blood Pressure [Ri ght Upper Arm] Pulse Oximetry 93 93 93 Oxygen Delivery Me thod Room Air Room Air Room Air 03/02/25 22:41 03/03/25 02:39 03/03/25 07:39 Temperature 98.1 F 99.6 F Pulse Rate Pulse Rate [Pulse Oximeter] Pulse Rate [Right Pulse Oximeter] 93 95 79 Respiratory Rate 16 16 16 Blood Pressure Blood Pressure [Ri ght Arm] 129/73 114/65 Blood Pressure [Ri ght Upper Arm] Pulse Oximetry 95 93 Oxygen Delivery Me thod Room Air Room Air 03/03/25 11:35 Temperature 100.7 F H Pulse Rate Pulse Rate [Pulse Oximeter] Pulse Rate [Right Pulse Oximeter] 80 Respiratory Rate 16 Blood Pressure Blood Pressure [Ri ght Arm] 114/69 Blood Pressure [Ri t Upper Arm] Pulse Oximetry 94 Oxygen Delivery Me thod Room Air Labs Labs: Laboratory Results - last 24 hr 03/02/25 03/02/25 03/02/25 19:30 20:10 20:40 WBC 18.72 H RBC 4.52 Hgb 13.9 Hct 40.5 MCV 90 MCH 31 MCHC 34 RDW Coeff of Barbara 12.5 Plt Count 238 Neut % (Auto) 86.3 H Lymph % (Auto) 3.8 L [place] % (Auto) 9.4 Eos % (Auto) 0.0 Baso % (Auto) 0.1 Neut # (Auto) 16.20 H Lymph # (Auto) 0.70 L [place] # (Auto) 1.80 H Eos # (Auto) 0.00 Baso # (Auto) 0.00 Abs Immat Gran (auto) 0.10 Imm/Tot Granulo (auto) 0.4 Sodium 133 L Potassium 4.0 Chloride 101 Carbon Dioxide 23 Anion Gap 9 BUN 24 Creatinine 1.4 Estimated Creat Clear 47.87 Estimated GFR 55 Glucose 113 Lactate 1.5 Calcium 9.0 C-Reactive Protein 0.7 Urine Color Yellow Urine Appearance Cloudy A Urine pH 5.5 Ur Specific [place] 1.015 Urine Protein 2+ A Urine Glucose (UA) Negative Urine Ketones Negative Urine Blood 2+ A Urine Nitrite Negative Urine Bilirubin Negative Urine Urobilinogen 0.2 Ur Leukocyte Esterase 2+ A Urine RBC 2-5 A Urine WBC 25-50 A Ur Squamous Epith Cells Moderate A Urine Bacteria Moderate A SARS-CoV-2 (PCR) Negative SARS-CoV-2 03/02/25 03/03/25 23:00 06:22 WBC 21.77 H RBC 4.24 L Hgb 13.1 L Hct 38.2 MCV 90 MCH 31 MCHC 34 RDW Coeff of [place] 12.8 Plt Count 206 Neut % (Auto) 83.8 H Lymph % (Auto) 6.0 L [place] % (Auto) 10.0 Eos % (Auto) 0.0 Baso % (Auto) 0.0 Neut # (Auto) 18.20 H Lymph # (Auto) 1.30 [place] # (Auto) 2.20 H Eos # (Auto) 0.00 Baso # (Auto) 0.00 Abs Immat Gran (auto) 0.00 Imm/Tot Granulo (auto) 0.2 Sodium 133 L Potassium 3.8 Chloride 103 Carbon Dioxide 24 Anion Gap 6 L BUN 22 Creatinine 1.4 Estimated Creat Clear 47.87 Estimated GFR 55 Glucose 144 H Lactate Calcium 8.7 C-Reactive Protein Urine Color Urine Appearance Urine pH Ur Specific [place] Urine Protein Urine Glucose (UA) Urine Ketones Urine Blood Urine Nitrite Urine Bilirubin Urine Urobilinogen Ur Leukocyte Esterase Urine RBC Urine WBC Ur Squamous Epith Cells Urine Bacteria SARS-CoV-2 (PCR)
[2025-03-03] MEDS: MIRTAZAPINE 15 MG TABLET 7.5 MG PO (18:32)
--- NOTE | 2025-03-03 18:56 | PC.NURSE ---
End of Shift ([id number]): Patient pleasant and cooperative, A&O. VSS, afebrile. SpO2 maintained above 90% on RA. Denies pain this shift. Tolerating a regular diet. Straight cathed this shift with 1100 ?cc out. ?
[2025-03-03] MEDS: PRAVASTATIN SODIUM 20 MG TABLET 40 MG PO (20:12)
[2025-03-03] MEDS: cefTRIAXone 1 GM in 0.9 % SODIUM CHLORIDE Mini-bag 100 ML IVPB (22:47)
[2025-03-04] MEDS: ACETAMINOPHEN 325 MG TABLET PO (00:43)
[2025-03-04 03:00] VITALS: BP 114/63; PULSE 82; RESP 18; TEMP 37.2; O2SAT 91
[2025-03-04] MEDS: CALCIUM CARBONATE 500 MG CHEW PO (04:00)
[2025-03-04 06:27] LABS: Hematocrit 36.6 % (37.0-53.0); Hemoglobin* 12.4 gm/dL (13.5-17.5); Immature Granulocytes Pct Auto 0.3 %; Mean Corpuscular HGB Conc 34 gm/dL (32-36); Mean Corpuscular Hemoglobin 31 pg (26-34); Mean Corpuscular Volume 92 fL (80-100); RDW Coefficient of Variation % 12.9 % (11.5-15.5); Red Blood Count 4.00 m/uL (4.30-5.90); White Blood Count* 17.38 K/uL (4.50-11.00)
[2025-03-04 06:31] LABS: Immature Granulocytes Abs Auto 0.10 K/uL (0.00-0.30); Lymphocytes Absolute Auto 1.90 K/uL (0.90-2.90); Slide Review Reflex No
--- NOTE | 2025-03-04 07:23 | PC.NURSE ---
End of shift report [id number]: VSS. On RA. Temp max was 99.5 this shift. Rated abdominal pain a 3-0/10, prn pain med and tums offered and given with relief. Pt stated he was having some chest comfort after drinking ice water. 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 At 0415 480 mls was bladder scanned, pt then straight cathed with 800 mls of urine output. Pt is independent in room. ?
[2025-03-04 08:42] VITALS: BP 116/65; PULSE 77; RESP 18; TEMP 36.8; O2SAT 93
--- NOTE | 2025-03-04 10:01 | PM.DS1 ---
DS: Providers Provider Date Seen: 03/04/25 Date of admission: 03/03/25 09:30 Primary care physician: Natalie Juárez DO Admitting Clinician: Michelle Meneses MD Attending Physician on discharge: Bhavana Hicks [facility] Date of Discharge: 03/04/25 DS: Diagnosis Discharge Diagnosis (1) Acute UTI: Status: Acute Problem details: Patient had urologic instrumentation 1 day prior to admission. Presents with SIRS, pyuria and bacteruria in this setting. -Monitor for sepsis -Monitor cultures -Continue IV rocephin, narrow as appropriate UC growing Gram-negative rods, awaiting final results and sensitivities, continuing ceftriaxone On day of discharge, leukocytosis continues to downtrend. UC growing Klebsiella pneumonia, sensitive to ceftriaxone. Patient is discharged with a 10 day course of oral cefpodoxime given history of self catheterization. Outpatient follow-up with PCP. (2) SIRS (systemic inflammatory response syndrome): Status: Resolved Problem details: RESOLVED SIRS on presentation with tachycardia and leukocytosis. -Continue antibiotics, monitor VS Tachycardia has resolved. Leukocytosis trending up. Lactate 1.5. Continue current course, monitoring (3) H/O urethral stricture: Status: Acute Problem details: Patient had congenital hypospadius, has had urethral dilation in the past. 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 Denies ever seeing GI and may benefit from work up for possible IBS. -Recommend miralax or fiber supplementation, consider linzess. Outpatient follow-up with PCP for further management DS: Summary Hospital Course Hospital Course: Course of care and details as noted above. Acute cystitis, Klebsiella pneumoniae. Discharged with oral cefpodoxime following IV ceftriaxone. Outpatient follow-up with PCP. Remainder of chronic medical comorbidities were monitored and managed with home medications. Status at Discharge Functional status at discharge: independent ambulation Overall status at discharge: patient is back to baseline Time Spent with Patient Time attestation: Total time spent providing and/or coordinating discharge services: Time spent: Greater than 30 minutes Exam Narrative: Exam Narrative: PHYSICAL EXAM General: Pleasant, conversant, NAD Cardiovascular: RRR Pulmonary: No dyspnea Neurological: Alert, answering questions appropriately Skin: Warm, dry. Const: Vital Signs, click to edit/add: Vital Signs - 24 hr 03/03/25 11:35 03/03/25 13:42 03/03/25 15:40 Temperature 100.7 F H 99.1 F 98.5 F Pulse Rate [Right Pulse Oximeter] 80 70 Respiratory Rate 16 18 Blood Pressure [Ri ght Arm] 114/69 111/74 Pulse Oximetry 94 95 Oxygen Delivery Me thod Room Air Room Air 03/03/25 15:40 03/03/25 19:00 03/03/25 22:50 Temperature 99.5 F 99 F Pulse Rate [Right Pulse Oximeter] 70 81 86 Respiratory Rate 18 16 18 Blood Pressure [Ri ght Arm] 128/76 123/70 Pulse Oximetry 94 91 Oxygen Delivery Me thod Room Air Room Air 03/03/25 23:00 03/04/25 03:00 03/04/25 08:42 Temperature 98.9 F 98.3 F Pulse Rate [Right Pulse Oximeter] 82 77 Respiratory Rate 18 18 18 Blood Pressure [Ri ght Arm] 114/63 116/65 Pulse Oximetry 91 93 Oxygen Delivery Me thod Room Air Room Air DS: Data Data Completed and Pending Labs on day of discharge: Labs from last 24 hours 03/04/25 05:56 WBC 17.38 H RBC 4.00 L Hgb 12.4 L Hct 36.6 L MCV 92 MCH 31 MCHC 34 RDW Coeff of [place] 12.9 Plt Count 180 Neut % (Auto) 78.6 H Lymph % (Auto) 11.2 L [place] % (Auto) 9.4 Eos % (Auto) 0.4 Baso % (Auto) 0.1 Neut # (Auto) 13.70 H Lymph # (Auto) 1.90 [place] # (Auto) 1.60 H Eos # (Auto) 0.10 Baso # (Auto) 0.00 Abs Immat Gran (auto) 0.10 Imm/Tot Granulo (auto) 0.3 Preliminary micro results at discharge 03/02/25 19:20 Blood Culture - Preliminary Blood NO GROWTH AFTER 24 HOURS 03/02/25 20:20 Blood Culture - Preliminary Blood NO GROWTH AFTER 24 HOURS Discharge Plan Discharge Disposition: Home, Self-Care Date of Admission: 03/03/25 09:30 Attending Provider on Discharge: Bhavana Hicks Primary Care Provider: Natalie Juárez Condition: Improved Anticipated Discharge Date/Time: 03/04/25 09:57 Discharge Medications: New cefpodoxime 100 mg tablet 100 mg PO BID Qty: 20 0RF Rx Instructions: must administer with a meal/food Continued pravastatin 40 mg tablet 40 mg PO DAILY clonazepam 0.5 mg tablet 0.5 mg PO DAILY Patient Comments: AND NEEDED mirtazapine 7.5 mg tablet 7.5 mg PO HS aspirin [Adult Aspirin Regimen] 81 mg tablet,delayed release (DR/EC) 81 mg PO DAILY amlodipine 5 mg tablet 5 mg PO DAILY Patient Comments: TAKE 1 TABLET (5 MG) BY MOUTH ONCE DAILY. calcium carbonate [Oyster Shell Calcium] 500 mg calcium (1,250 mg) tablet 1,000 mg PO DAILY cholecalciferol (vitamin D3) [Vitamin D3] 25 mcg (1,000 unit) tablet 25 mcg PO DAILY loperamide 2 mg capsule 2 mg PO QID PRN multivitamin [Daily Value] Tablet 1 tab PO DAILY ascorbic acid (vitamin C) [Vitamin C] 1,000 mg tablet 1 g PO DAILY Discharge Orders: Discharge Order (Routine); Ordered 03/04/25 Ordered By: Bhavana Hicks Patient Education: Cefpodoxime Proxetil (By mouth), Urinary Tract Infection in Men (DC) Activity Level: No Restrictions and Activity as Tolerated Discharge Diet: Regular Follow Up Appointments: Natalie Juárez DO [Primary Care Provider, Family Practice] - 03/11/25 10:10 am Referral Note: [facility] for hospital follow-up. Forms: Lucibel Info Instructions
== END 2025-03-04 10:53 | disposition home or self-care (01) | DRG 690 ==
LOC: ED 21:20 → MEDSURG 21:46
PROVIDERS: Admitting Provider Family Medicine; Emergency Provider Family Medicine; PCP Family Medicine; Visit Provider Family Medicine
DX: N30.00 Acute cystitis without hematuria (principal); B96.1 Klebsiella pneumoniae [K. pneumoniae] as the cause of diseases classified elsewhere; R33.8 Other retention of urine; Z90.5 Acquired absence of kidney; I10 Essential (primary) hypertension; F41.1 Generalized anxiety disorder; K52.9 Noninfective gastroenteritis and colitis, unspecified; Z79.82 Long term (current) use of aspirin; E78.5 Hyperlipidemia, unspecified
CPT/HCPCS: 36415; 51702; 51798; 80048; 81001; 83605; 85025; 86140; 87040; 87081; 87086; 87635; 93005; 99284; 99285; A9270; G0378; J0696; J7030; J7050

== ENCOUNTER 2025-03-05 15:28 | Emergency (ER) | payer MEDICARE, SELFPAY ==
--- OUTSIDE RECORDS SUMMARY | 2025-03-05 15:30 | XMS_ITS | Clinical Summary ---
Author Organization [facility] [facility] [employer] [facility] Address [address] [place] [id number] Care Team Providers Care Public Works Technician Name Role Phone Natalie Juárez Aliya GIRON Primary Care Provider Kate Pugh DO Unavailable [phone] Billy Sanon MD Unavailable Allergies No known [...] Encounters Date Type Department Care Team Description 03/04/[address] [phone] Billy Sanon MD Questions 03/03/[address] [address] Billy aSnon MD Outside Order (catheter ) 02/28/2025 Nurse Triage [facility] [address] [place] [address] Natalie Juárez Aliya, DO Diarrhea 02/27/[address] [address] Billy Sanon MD Questions (Questions regarding his medications before his lab 03/01/25) 02/27/2025 Nurse Triage [facility] [address] [place] [address] Sir Juárezi Aliya, DO Questions 02/26/2025 Nurse Triage [address] [address] Billy Sanon MD Concerns 02/26/2025 Nurse Triage [address] [address] Billy Sanon MD Error-please disregard 02/26/[address] [place] [address] Billy Sanon MD 02/25/[address] [place] [address] Billy Sanon MD Message 02/18/2025 3:30 PM CDT Nurse/Clinic Staff Only [address] [place] [address] Nurse/Clinic Staff Only (Self catheter teaching) 02/18/2025 Travel 02/17/[address] [place] [address] Billy Sanon MD Referral (Catheter Prescription and Referral) 02/16/[address] [place] [address] Billy Sanon MD Message (Where is the patient's catheter? ) 02/10/[address] [place] [address] Billy Sanon MD requesting call 02/08/2025 2:20 PM CDT Office Visit [address] [address] Billy Sanon MD Follow Up (Bladder scan) 02/08/2025 Travel 02/04/[address] [place] [address] Billy Sanon MD Error-please disregard 01/22/2025 3:00 PM CDT Office Visit [facility] [address] [place] [address] Natalie Juárez, DO Facial Injury (L jaw/facial pain - from mouthguard? 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 Gender Identity Not on file Sexual [...] Care Team (Late st Contact Info) Description 03/11/2025 10:10 AM CDT Office Visit [facility] [address] [place] [address] Natalie Juárez, DO [address] [place] [address] 03/17/2025 12:55 PM CDT Office Visit [facility] [address] [place] [address] Natalie Juárez, DO [address] [place] [address] 04/19/2025 10:30 AM CDT Appointment [facility] [address] [place] [address] 05/10/2025 11:00 AM CDT Office Visit [facility] [address] [place] [address] Billy Sanon MD [address] [place] [address] 06/03/2025 1:00 PM CDT Phone Office Visit [facility] [address] [facility] [address] [place] [phone] Kate Pugh DO [address] [facility] [address] [place], [place] [phone] Health Maintenance Due Date Last Done Comments [...] 02/03/2029 02/04/2024, 06/22/2022, 01/20/2020 (Completed outside of [facility] [employer]), Additional history exists Tetanus booster 07/11/2029 07/11/2019, 04/16/2006 Colonoscopy through age 75 03/03/203003/03 (Completed outside of [facility]) RSV vaccine for adults or (1 - 1-dose 75+ series) 2032 Hepatitis C screening for ag e 18-79 Completed 01/02/2022 Zoster (shingles) series for age 50+ Completed 08/21/2022, 03/26/2022 AAA screening age 65-74 Completed 09/24/2022 Procedures Procedure Name Priority Date/Time Associated Diagnosis Comments NE LESLIE POST-VOIDING RESIDUAL URINE&/BLADDER CAP Routine 02/08/2025 12:00 AM CDT H/O urethral stricture Solitary kidney, acquired Urinary retention BPH with obstruction/lower urinary tract symptoms LIPID PANEL W REFLEX MEASURED LDL Routine 02/04/2024 9:53 AM CDT Hyperlipidemia, unspecified hyperlipidemia type US ABD AORTA SCREENING Routine 09/24/2022 9:16 AM 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 Screening for AAA (aortic abdominal aneurysm) ANTI HCV Routine 01/02/2022 10:46 AM CDT Encounter for hepatitis C screening test for low risk patient from Last 3 Months or Most Recently Relevant to Health Maintenance Results * NE LESLIE POST-VOIDING RESIDUAL URINE&/BLADDER CAP (02/08/2025 12:00 AM CDT) Billy Sanon MD PB - URINARY SYSTEM SE RVICES Final Result * LIPID PANEL W REFLEX MEASURED LDL (02/04/2024 9:53 AM CDT) CHOLESTEROL,TOTAL 198 100 - 199 mg/dL 02/04/2024 6:48 PM CDT [facility] Comment: Cholesterol, Total Reference Ranges Desirable <200 mg/dL Borderline 200-239 mg/dL High >=240 mg/dL TRIGLYCERIDES 119 <150 mg/dL 02/04/2024 6:48 PM CDT [facility] HDL CHOLESTEROL 67 >40 mg/dL 6:48 PM CDT [facility] NON-HDL CHOLESTEROL 131 <145 mg/dl 02/04/2024 6:48 PM CDT [facility] CHOL/HDL RATIO 2.96 <4.50 02/04/2024 6:48 PM CDT [facility] LDL CHOLESTEROL 107 <=130 mg/dL 02/04/2024 6:48 PM CDT [facility] VLDL CHOLESTEROL 24 <=30 mg/dL 02/04/2024 6:48 PM CDT [facility] PROVIDER ORDERED STATUS RANDOM 02/04/2024 6:48 PM CDT [facility] Blood BLOOD SPECIMEN / Unknown Venipuncture / Unknown 02/04/2024 9:53 AM CDT 02/04/2024 9:53 AM CDT us Natalie Juárez DO CHEMISTRY Final Result [facility] [address] [place] [address], [place] * US ABD AORTA SCREENING [[id number]] (09/24/2022 9:16 AM 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) Anatomical Region Laterality Modality Abdomen, AORTA Ultrasound 09/24/2022 10:4 1 AM 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 Impressions 09/24/2022 10:41 AM 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 Normal sonographic assessment of the abdominal aorta. Dictated by Colin Dumas MD @ Sep 24 2022 10:41AM (Electronically Signed) Narrative 09/24/2022 10:41 AM 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 For Patients: As a result of [...] For Patients: As a result of the s Act, medical imagingexams and procedure reports are [...] asia Non-React asia 01/02/2022 6:27 PM CDT [facility] Comment:Antibodies to HCV no t detected; does not exclude the possibility of exposure to HCV. Blood BLOOD SPECIMEN / Unknown Venipuncture / Unknown 01/02/2022 10:46 AM CDT 01/02/2022 10:47 AM CDT Natalie Aliya Marquita DO SEND OUTS Final Result [facility] [address] [place] [address], from Last 3 Months or Most Recently Relevant to Health Maintenance Insurance MEDICARE PB ONLY MEDICARE PART B HB ONLY MEDICARE PART A HB ONLY Care Teams Public Works Technician Relationship Specialty Start Date End Date Natalie Juárez DO [address] [place] [address] PCP - General Family Practice 03/01/21 Kate Pugh DO [address] [facility] [address] [place] [address] Psychiatry 01/11/23 Billy Sanon MD [address] [facility] [place] [address] Surgery - Urology 08/10/24
--- OUTSIDE RECORDS SUMMARY | 2025-03-05 15:30 | XMS_ITS | CCD ---
Author Name Interface, [id number] [address] Organization [facility] [place] [address] Allergies and Adverse Reactions Medication/Group Name Reaction [...]
--- OUTSIDE RECORDS SUMMARY | 2025-03-05 15:31 | XMS_ITS | Continuity of Care Document ---
Author Organization [facility] Address [address] 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 Procedures Surgical History Date Name Laterality Status Provider Name and Address Organization Details Recorded Time 5 Bladder Scan cancelled Kayla Denson [facility] 09/11/2024 15:45:28 3 Bladder Scan completed Pilar Smith [facility] 08/22/2023 10:45:31 3 UroCuff completed Erma Alves [facility] 08/08/2023 16:46:48 3 Bladder Scan completed Erma Alves [facility] 08/08/2023 16:22:41 3 Bladder Scan completed Romie Santos [facility] 02/27/2023 15:07:12 3 Bladder Scan completed Venkatesh Ontiveros MD [address] [facility],[address], [place], [address], [facility] 09/27/2022 12:46:00 0 colonoscopy completed Pilar Smith [facility] 08/22/2023 10:42:53 Imaging Results None [...] Tobacco Smoking Status Former Smoker Miriam marcelo, [place] [facility] 09/27/2022 12:24:21 What Is Your Level Of Caffeine Consumption? Moderate Information not available 02/27/2023 When Did You Quit Smoking? 1-5yearssince lastcigarette [email or web address] Information not available 08/22/2023 Recreational Drug Use No Information not available 02/27/2023 What Was The Date Of Your Most Recent Tobacco Screening? 08/22/2023 [email or web address] Information not available 08/22/2023 What Is Your [...] 50 mcg/0.5 mL 3 completed Pilar marcelo [facility] 08/22/2023 10:42:13 Influenza, split virus, quadrivalent, PF 3 completed Pilar marcelo [facility] 08/22/2023 10:42:13 COVID-19, mRNA, LNP-S, PF, 50 mcg/0.5 mL 4 completed Not Available [facility] 03/01/2025 14:54:25 Influenza, split virus, trivalent, preservative 4 completed Not Available [facility] 03/01/2025 14:54:25 zoster recombinant 2 completed Jenny marcelo [facility] 07/03/2023 17:11:29 zoster recombinant 2 completed Jenny marcelo [facility] 07/03/2023 17:11:29 COVID-19, mRNA, LNP-S, PF, 100 mcg/0.5mL dose or 50 mcg/0.25mL dose 1 completed Jenny marcelo [facility] 07/03/2023 17:11:29 COVID-19, mRNA, LNP-S, PF, 100 mcg/0.5mL dose or 50 mcg/0.25mL dose 1 completed Jenny marcelo [facility] 07/03/2023 17:11:29 COVID-19, mRNA, LNP-S, PF, 100 mcg/0.5mL dose or 50 mcg/0.25mL dose 2 completed Jenny marcelo [facility] 07/03/2023 17:11:29 COVID-19, mRNA, LNP-S, PF, 100 mcg/0.5mL dose or 50 mcg/0.25mL dose 1 completed Jenny marcelo [facility] 07/03/2023 17:11:29 COVID-19, mRNA, LNP-S, bivalent, PF, 50 mcg/0.5 mL or 25mcg/0.25 mL dose 2 dayana marcelo [facility] 07/03/2023 17:11:29 Tdap 9 completed Jenny marcelo [facility] 07/03/2023 17:11:29 Influenza, split virus, trivalent, preservative 8 dayana marcelo [facility] 07/03/2023 17:11:29 Past Encounters Encounter ID Performer Location Encounter Start Date Encounter Closed Date Diagnosis/Indication Diagnosis SNOMED-CT Code Diagnosis ICD10 Code Diagnosis Note [id number] MD CHANDA ROMAN_Isabel [address] [place] [address] 03/01/2025 14:50:39 03/01/2025 16:41:07 Retention of urine [id number] R33.9 evaluated at [facility] most recently on 02/08/25per history and prior [...] ID Guarantor Name 03/01/2025 1 [place]ICARE [place]: [employer] Jerry Ballesteros [id number] Jerry Ballesteros Notes Date Note Type Note Provider Name and Address Organization Details Recorded Time 03/01/2025 text/html Date of Kapqsfi6803/01/2025 Indication:urinary retention Referring Physician:Fab Testing today included: Uroflow, multichannel cystometry, EMG, and pressure flow study. Details of procedure:After discussing the purpose and nature of visit, the patient consented to proceed.Uroflow:Uroflo w #1 (prior to [facility]) Patient [id number] Maximum flow rate39.8mL/s Average flow rate9.3Post void [id number] mL (CIC) Uroflow #2 (post [facility]- see nona notes) Patient [id number] Maximum flow rate23.4mL/s Average flow rate5 ml/sPost void residual<50 Filling phase: 7 fr air charged catheters were used. Fill rate:35-60mL/minute The first sensation of bladder filling occurred at55mL The first desire to void occurred [id number] The strong desire to void occurred [id number] The maximum capacity [id number] The bladder compliance isnormal Detrusor pressure during filling isnormal Detrusor Overactivity: No DO noted Stress Urinary Incontinence: No RUBIO Pressure flow study:Patient [id number] after permission to void was given. Maximum flow rate3.4mL/s with PDet at max flow-2cm H2O. Post void [id number] mL. Visual detrusor contractionwas notnoted. Abdominal strainingwasnoted. [...] residual contents this way. Nona name:An marcelo [facility] 03/01/2025 16:41:02
--- OUTSIDE RECORDS SUMMARY | 2025-03-05 15:31 | XMS_ITS | Data Portability ---
Author Organization [place] - [employer] Office - INACTIVE OF 12/30/15 [address] [place] [address] Care Team Providers Care Helmet Hat Sweatband Puncher Name Role Phone SAMEERA RIDLEY Primary Care [...] hormone), intact, serum or plasma 2019 021 [facility], [address] [facility], [address], [place], [address], 1 15:55:27 vitamin D, 25-hydroxy , total, serum 2019 [facility], [address] [facility], [address], [place], [address], 1 15:55:27 CBC w/ auto diff 2019 [facility], [address], [address], [place], [address], 1 13:57:47 magnesium, serum or plasma 2019 021 [facility], [address], [address], [place], [address], 1 15:55:27 protein:cr eatinine ratio, urine 2019 [facility], [address], [address], [place], [address], 1 15:55:27 uric acid, serum or plasma 2019 021 [facility], [address], [address], [address], [place], [address], 1 15:55:27 renal function panel, serum 2019 021 [facility], [address], [address], [address], [place], [address], 1 15:55:27 PTH (parathyro id hormone), intact, serum or plasma 2018 [facility], [address], [address], [address], [place], [address], 0 19:51:03 vitamin D, 25-hydroxy , total, serum 2018 [facility], [address], [address], [place], [address], 0 19:51:03 CBC w/ auto diff 2018 [facility], [address], [address], [place], [address], 0 19:51:03 magnesium, serum or plasma 2018 020 [facility], [address], [address], [address], [place], [address], 0 19:51:03 protein:cr eatinine ratio, urine 2018 020 [facility], [address], [address], [address], [place], [address], 0 19:51:03 uric acid, serum or plasma 2018 020 [facility], [address], [address], [address], [place], [address], 0 19:51:03 renal function panel, serum 2018 020 [facility], [address], [address], [address], [place], [address], 0 19:51:03 magnesium, blood 2018 019 [facility], [address], [address], [place], [address], 9 14:09:34 phosphorus , blood 2018 019 [facility], [address], [address], [place], [address], 9 14:09:34 protein:cr eatinine ratio, urine 2018 019 [facility], [address], [address], [place], [address], 9 18:56:10 uric acid, serum or plasma 2018 019 [facility], [address], [address], [place], [address], 9 14:09:34 BMP, serum or plasma 2018 019 [facility], [address], [address], [place], [address], 9 14:09:34 CMP, serum or plasma 2017 018 [facility], [address], [address], [address], [place], [address], 9 17:00:34 magnesium, blood 2017 018 [facility], [address], [address], [place], [address], 8 20:07:04 phosphorus , blood 2017 018 [facility], [address], [address], [address], [place], [address], 8 20:07:04 protein:cr eatinine ratio, urine 2017 018 [facility], [address], [address], [place], [address], 8 20:07:04 CBC w/ auto diff 2017 018 [facility], [address], [address], [place], [address], 9 16:56:21 uric acid, serum or plasma 2017 018 [facility], [address], [address], [place], [address], 8 20:07:04 urinalysis complete, reflex culture 2017 018 [facility], [address], [address], [place], [address], 9 16:56:21 urinalysis , dipstick, reflex micro 2017 018 [facility], [address], [address], [place], [address], 8 20:07:04 CMP, serum or plasma 2016 017 [facility], [address], [address], [place], [address], 8 19:46:50 magnesium, blood 2016 017 [facility], [address], [address], [place], [address], 8 19:46:50 phosphorus , blood 2016 017 [facility], [address], [address], [place], [address], 8 19:46:50 protein:cr eatinine ratio, urine 2016 017 [facility], [address], [address], [place], [address], 8 19:46:50 CBC w/ auto diff 2016 017 [facility], [address], [address], [place], [address], 03/20/201 8 19:46:50 urinalysis , dipstick, reflex micro 2016 017 [facility], [address], [address], [place], [address], 8 19:46:50 uric acid, serum or plasma 2016 017 [facility], [address] [place] [address] [address], [address], [place], [address], 8 19:46:51 Referral None recorded. Procedures None recorded. Surgeries None recorded. Imaging None recorded. Medication Orders losartan 50 mg tablet 2017 [email or web address] [facility] [address] [facility], [address] [place] [address], [address], 9 12:17:21 Patient TargetsNo targets recorded. Patient InstructionsNo instructions recorded. Reason for Referral None Reported. Results Created Date Observation Date Name Description Value Unit Range Abnormal Flag Note LastModifiedBy Organization Detail LastModifiedTime 05/23/20 17 05/23/2017 lipid panel , serum color, urine straw Not Available [address], [address], [place], [address], 05/23/2017 17:03:45 05/23/20 17 05/23/2017 lipid panel , serum clarity, urine clear Not Available [address], [address], [place], [address], 05/23/2017 17:03:45 05/23/20 17 05/23/2017 lipid panel , serum pH, urine 1.006 Not Available [address], [address] [address], [place], [address], 05/23/2017 17:03:45 05/23/20 17 05/23/2017 lipid panel , serum protein, urine negati ve Not Available [facility] [address], [address], [place], [address], 05/23/2017 17:03:45 05/23/20 17 05/23/2017 lipid panel , serum glucose, urine negati ve Not Available [facility] [address], [address], [place], [address], 05/23/2017 17:03:45 05/23/20 17 05/23/2017 lipid panel , serum ketones, urine negati ve Not Available [facility] [address], [address], [place], [address], 05/23/2017 17:03:45 05/23/20 17 05/23/2017 lipid panel , serum bilirubin, urine negati ve Not Available [facility] [address], [address], [place], [address], 05/23/2017 17:03:45 05/23/20 17 05/23/2017 lipid panel , serum blood, urine negati ve Not Available [facility] [address], [address], [place], [address], 05/23/2017 17:03:45 05/23/20 17 05/23/2017 lipid panel , serum nitrite, urine negati ve Not Available [facility] [address], [address], [place], [address], 05/23/2017 17:03:45 05/23/20 17 05/23/2017 lipid panel , serum leukocyte esterase negati ve Not Available [facility] [address], [address], [place], [address], 05/23/2017 17:03:45 05/23/20 17 05/23/2017 lipid panel , serum urobilinogen , urine <2.0 Not Available [facility] [address], [address], [place], [address], 05/23/2017 17:03:45 05/23/20 17 05/23/2017 lipid panel , serum protein, urine, random 9.8 Not Available [facility] [address], [address], [place], [address], 05/23/2017 17:03:45 05/23/20 17 05/23/2017 lipid panel , serum creatinine, urine, random 24.9 Not Available [facility] [address], [address], [place], [address], 05/23/2017 17:03:45 05/23/20 17 05/23/2017 lipid panel , serum HGB 14.7 Not Available [facility] [address], [address], [place], [address], 05/23/2017 17:03:45 05/23/20 17 05/23/2017 lipid panel , serum HCT 44.5 Not Available [facility] [address], [address], [place], [address], 05/23/2017 17:03:45 05/23/20 17 05/23/2017 lipid panel , serum WBC 4.5 Not Available [facility] [address], [address], [place], [address], 05/23/2017 17:03:45 05/23/20 17 05/23/2017 lipid panel , serum plt 212 Not Available [facility] [address], [address], [place], [address], 05/23/2017 17:03:45 05/23/20 17 05/23/2017 lipid panel , serum sodium, serum 137 Not Available [facility] [address], [address], [place], [address], 05/23/2017 17:03:45 05/23/20 17 05/23/2017 lipid panel , serum potassium, serum 3.5 Not Available [facility] [address], [address], [place], [address], 05/23/2017 17:03:45 05/23/20 17 05/23/2017 lipid panel , serum chloride, serum 99 Not Available [facility] [address] [facility] [address], [address], [place], [address], 05/23/2017 17:03:45 05/23/20 17 05/23/2017 lipid panel , serum carbon dioxide 27 Not Available [facility] [address] [facility] [address], [address], [place], [address], 05/23/2017 17:03:45 05/23/20 17 05/23/2017 lipid panel , serum calcium, serum 9.0 Not Available [facility] [address] [facility] [address], [address], [place], [address], 05/23/2017 17:03:45 05/23/20 17 05/23/2017 lipid panel , serum glucose, serum 101 Not Available [facility] [address] [facility] [address], [address], [place], [address], 05/23/2017 17:03:45 05/23/20 17 05/23/2017 lipid panel , serum BUN 24 Not Available [facility] [address], [address], [place], [address], 05/23/2017 17:03:45 05/23/20 17 05/23/2017 lipid panel , serum creatinine 1.60 Not Available [facility] [address] [facility] [address], [address], [place], [address], 05/23/2017 17:03:45 05/23/20 17 05/23/2017 lipid panel , serum GFR 44 Not Available [facility] [address], [address], [place], [address], 05/23/2017 17:03:45 05/23/20 17 05/23/2017 lipid panel , serum bilirubin, total 0.5 Not Available [facility] [address], [address], [place], [address], 05/23/2017 17:03:45 05/23/20 17 05/23/2017 lipid panel , serum alkaline phosphatase 43 Not Available [facility] [address], [address], [place], [address], 05/23/2017 17:03:45 05/23/20 17 05/23/2017 lipid panel , serum albumin, serum 4.1 Not Available [facility] [address], [address], [place], [address], 05/23/2017 17:03:45 05/23/20 17 05/23/2017 lipid panel , serum protein, total, serum 7.0 Not Available [facility] [address], [address], [place], [address], 05/23/2017 17:03:45 05/23/20 17 05/23/2017 lipid panel , serum magnesium 1.8 Not Available [facility] [address], [address], [place], [address], 05/23/2017 17:03:45 05/23/20 17 05/23/2017 lipid panel , serum phosphorus 2.8 Not Available [facility] [address], [address], [place], [address], 05/23/2017 17:03:45 05/23/20 17 05/23/2017 lipid panel , serum uric acid 6.1 Not Available [facility] [address], [address], [place], [address], 05/23/2017 17:03:45 05/23/20 17 05/23/2017 lipid panel , serum PSA, total 0.762 Not Available [facility] [address] [facility] [address], [address], [place], [address], 05/23/2017 17:03:45 05/23/20 17 05/23/2017 PSA, serum or plasm a color, urine straw Not Available [facility] [address], [place], [address], 05/23/2017 17:03:45 05/23/20 17 05/23/2017 PSA, serum or plasm a clarity, urine clear Not Available [facility] [address], [address], [place], [address], 05/23/2017 17:03:45 05/23/20 17 05/23/2017 PSA, serum or plasm a pH, urine 1.006 Not Available [facility] [address], [address], [place], [address], 05/23/2017 17:03:45 05/23/20 17 05/23/2017 PSA, serum or plasm a protein, urine negati ve Not Available [facility] [address], [address], [place], [address], 05/23/2017 17:03:45 05/23/20 17 05/23/2017 PSA, serum or plasm a glucose, urine negati ve Not Available [facility] [address], [address], [place], [address], 05/23/2017 17:03:45 05/23/20 17 05/23/2017 PSA, serum or plasm a ketones, urine negati ve Not Available [facility] [address], [address], [place], [address], 05/23/2017 17:03:45 05/23/20 17 05/23/2017 PSA, serum or plasm a bilirubin, urine negati ve Not Available [facility] [address] [facility] [address], [address], [place], [address], 05/23/2017 17:03:45 05/23/20 17 05/23/2017 PSA, serum or plasm a blood, urine negati ve Not Available [facility] [address] [facility], [address], [place], [address], 05/23/2017 17:03:45 05/23/20 17 05/23/2017 PSA, serum or plasm a nitrite, urine negati ve Not Available [facility] [address], [address], [place], [address], 05/23/2017 17:03:45 05/23/20 17 05/23/2017 PSA, serum or plasm a leukocyte esterase negati ve Not Available [facility] [address], [address], [place], [address], 05/23/2017 17:03:45 05/23/20 17 05/23/2017 PSA, serum or plasm a urobilinogen , urine <2.0 Not Available [facility] [address], [address], [place], [address], 05/23/2017 17:03:45 05/23/20 17 05/23/2017 PSA, serum or plasm a protein, urine, random 9.8 Not Available [facility] [address], [address], [place], [address], 05/23/2017 17:03:45 05/23/20 17 05/23/2017 PSA, serum or plasm a creatinine, urine, random 24.9 Not Available [facility] [address], [address], [place], [address], 05/23/2017 17:03:45 05/23/20 17 05/23/2017 PSA, serum or plasm a HGB 14.7 Not Available [facility] [address] [facility] [address], [address], [place], [address], 05/23/2017 17:03:45 05/23/20 17 05/23/2017 PSA, serum or plasm a HCT 44.5 Not Available [facility] [address], [address], [place], [address], 05/23/2017 17:03:45 05/23/20 17 05/23/2017 PSA, serum or plasm a WBC 4.5 Not Available [facility] [address], [place], [address], 05/23/2017 17:03:45 05/23/20 17 05/23/2017 PSA, serum or plasm a plt 212 Not Available [facility] [address] [facility], [address], [place], [address], 05/23/2017 17:03:45 05/23/20 17 05/23/2017 PSA, serum or plasm a sodium, serum 137 Not Available [facility] [address], [address], [place], [address], 05/23/2017 17:03:45 05/23/20 17 05/23/2017 PSA, serum or plasm a potassium, serum 3.5 Not Available [facility] [address], [address], [place], [address], 05/23/2017 17:03:45 05/23/20 17 05/23/2017 PSA, serum or plasm a chloride, serum 99 Not Available [facility] [address], [place], [address], 05/23/2017 17:03:45 05/23/20 17 05/23/2017 PSA, serum or plasm a carbon dioxide 27 Not Available [facility] [address] [facility] [address], [address], [place], [address], 05/23/2017 17:03:45 05/23/20 17 05/23/2017 PSA, serum or plasm a calcium, serum 9.0 Not Available [facility] [address], [address], [place], [address], 05/23/2017 17:03:45 05/23/20 17 05/23/2017 PSA, serum or plasm a glucose, serum 101 Not Available [facility] [address], [address], [place], [address], 05/23/2017 17:03:45 05/23/20 17 05/23/2017 PSA, serum or plasm a BUN 24 Not Available [facility] [address], [address], [place], [address], 05/23/2017 17:03:45 05/23/20 17 05/23/2017 PSA, serum or plasm a creatinine 1.60 Not Available [facility] [address], [place], [address], 05/23/2017 17:03:45 05/23/20 17 05/23/2017 PSA, serum or plasm a GFR 44 Not Available [facility] [address], [place], [address], 05/23/2017 17:03:45 05/23/20 17 05/23/2017 PSA, serum or plasm a bilirubin, total 0.5 Not Available [facility] [address] [facility], [address], [place], [address], 05/23/2017 17:03:45 05/23/20 17 05/23/2017 PSA, serum or plasm a alkaline phosphatase 43 Not Available [facility] [address], [address], [place], [address], 05/23/2017 17:03:45 05/23/20 17 05/23/2017 PSA, serum or plasm a albumin, serum 4.1 Not Available [address] [facility] [address], [address], [place], [address], 05/23/2017 17:03:45 05/23/20 17 05/23/2017 PSA, serum or plasm a protein, total, serum 7.0 Not Available [facility] [address] [facility] [address], [address], [place], [address], 05/23/2017 17:03:45 05/23/20 17 05/23/2017 PSA, serum or plasm a magnesium 1.8 Not Available [address] [facility] [address], [address], [place], [address], 05/23/2017 17:03:45 05/23/20 17 05/23/2017 PSA, serum or plasm a phosphorus 2.8 Not Available [address] [facility] [address], [address], [place], [address], 05/23/2017 17:03:45 05/23/20 17 05/23/2017 PSA, serum or plasm a uric acid 6.1 Not Available [address] [facility] [address], [address], [place], [address], 05/23/2017 17:03:45 05/23/20 17 05/23/2017 PSA, serum or plasm a PSA, total 0.762 Not Available [address] [facility] [address], [address], [place], [address], 05/23/2017 17:03:45 05/23/20 17 05/23/2017 uric acid, serum or plasm a color, urine straw Not Available [facility] [address] [facility] [address], [address], [place], [address], 05/23/2017 17:03:45 05/23/20 17 05/23/2017 uric acid, serum or plasm a clarity, urine clear Not Available [facility] [address] [facility], [place], [address], 05/23/2017 17:03:45 05/23/20 17 05/23/2017 uric acid, serum or plasm a pH, urine 1.006 Not Available [facility] [address] [facility], [address], [place], [address], 05/23/2017 17:03:45 05/23/20 17 05/23/2017 uric acid, serum or plasm a protein, urine negati ve Not Available [facility] [address] [facility], [address], [place], [address], 05/23/2017 17:03:45 05/23/20 17 05/23/2017 uric acid, serum or plasm a glucose, urine negati ve Not Available [facility] [address] [facility], [address], [place], [address], 05/23/2017 17:03:45 05/23/20 17 05/23/2017 uric acid, serum or plasm a ketones, urine negati ve Not Available [facility] [address] [facility], [address], [place], [address], 05/23/2017 17:03:45 05/23/20 17 05/23/2017 uric acid, serum or plasm a bilirubin, urine negati ve Not Available [facility] [address] [facility] [facility], [address], [place], [address], 05/23/2017 17:03:45 05/23/20 17 05/23/2017 uric acid, serum or plasm a blood, urine negati ve Not Available [facility] [address] [facility], [address], [place], [address], 05/23/2017 17:03:45 05/23/20 17 05/23/2017 uric acid, serum or plasm a nitrite, urine negati ve Not Available [facility] [address] [facility], [address], [place], [address], 05/23/2017 17:03:45 05/23/20 17 05/23/2017 uric acid, serum or plasm a leukocyte esterase negati ve Not Available [facility] [address] [facility] [address], [address], [place], [address], 05/23/2017 17:03:45 05/23/20 17 05/23/2017 uric acid, serum or plasm a urobilinogen , urine <2.0 Not Available [facility] [address], [place], [address], 05/23/2017 17:03:45 05/23/20 17 05/23/2017 uric acid, serum or plasm a protein, urine, random 9.8 Not Available [facility] [address] [facility] [facility] [address], [address], [place], [address], 05/23/2017 17:03:45 05/23/20 17 05/23/2017 uric acid, serum or plasm a creatinine, urine, random 24.9 Not Available [facility] [address] [facility], [place], [address], 05/23/2017 17:03:45 05/23/20 17 05/23/2017 uric acid, serum or plasm a HGB 14.7 Not Available [facility] [address] [facility] [address], [address], [place], [address], 05/23/2017 17:03:45 05/23/20 17 05/23/2017 uric acid, serum or plasm a HCT 44.5 Not Available [facility] [address] [facility] [address], [address], [place], [address], 05/23/2017 17:03:45 05/23/20 17 05/23/2017 uric acid, serum or plasm a WBC 4.5 Not Available [facility] [address] [facility] [address], [address], [place], [address], 05/23/2017 17:03:45 05/23/20 17 05/23/2017 uric acid, serum or plasm a plt 212 Not Available [facility] [address] [facility] [address], [address], [place], [address], 05/23/2017 17:03:45 05/23/20 17 05/23/2017 uric acid, serum or plasm a sodium, serum 137 Not Available [facility] [address] [facility] [address], [address], [place], [address], 05/23/2017 17:03:45 05/23/20 17 05/23/2017 uric acid, serum or plasm a potassium, serum 3.5 Not Available [facility] [address] [facility] [address], [address], [place], [address], 05/23/2017 17:03:45 05/23/20 17 05/23/2017 uric acid, serum or plasm a chloride, serum 99 Not Available [facility] [address] [facility] [address], [address], [place], [address], 05/23/2017 17:03:45 05/23/20 17 05/23/2017 uric acid, serum or plasm a carbon dioxide 27 Not Available [facility] [address] [facility] [address], [address], [place], [address], 05/23/2017 17:03:45 05/23/20 17 05/23/2017 uric acid, serum or plasm a calcium, serum 9.0 Not Available [facility] [address] [facility] [address], [address], [place], [address], 05/23/2017 17:03:45 05/23/20 17 05/23/2017 uric acid, serum or plasm a glucose, serum 101 Not Available [facility] [address] [facility] [address], [address], [place], [address], 05/23/2017 17:03:45 05/23/20 17 05/23/2017 uric acid, serum or plasm a BUN 24 Not Available [facility] [address] [facility] [address], [address], [place], [address], 05/23/2017 17:03:45 05/23/20 17 05/23/2017 uric acid, serum or plasm a creatinine 1.60 Not Available [facility] [address] [facility] [address], [address], [place], [place], [address], 05/23/2017 17:03:45 05/23/20 17 05/23/2017 uric acid, serum or plasm a GFR 44 Not Available [facility] [address] [facility] [address], [address], [place], [address], 05/23/2017 17:03:45 05/23/20 17 05/23/2017 uric acid, serum or plasm a bilirubin, total 0.5 Not Available [facility] [address] [facility] [address], [address], [place], [address], 05/23/2017 17:03:45 05/23/20 17 05/23/2017 uric acid, serum or plasm a alkaline phosphatase 43 Not Available [facility] [address] [facility] [address], [address], [place], [address], 05/23/2017 17:03:45 05/23/20 17 05/23/2017 uric acid, serum or plasm a albumin, serum 4.1 Not Available [facility], [place], [address], 05/23/2017 17:03:45 05/23/20 17 05/23/2017 uric acid, serum or plasm a protein, total, serum 7.0 Not Available [facility] [address] [facility] [address], [address], [place], [address], 05/23/2017 17:03:45 05/23/20 17 05/23/2017 uric acid, serum or plasm a magnesium 1.8 Not Available [facility] [address] [facility] [address], [address], [place], [address], 05/23/2017 17:03:45 05/23/20 17 05/23/2017 uric acid, serum or plasm a phosphorus 2.8 Not Available [facility] [address] [place] [address] [address], [address], [place], [address], 05/23/2017 17:03:45 05/23/20 17 05/23/2017 uric acid, serum or plasm a uric acid 6.1 Not Available [facility] [address], [address], [place], [address], 05/23/2017 17:03:45 05/23/20 17 05/23/2017 uric acid, serum or plasm a PSA, total 0.762 Not Available [facility] [address] [facility] [address], [address], [place], [address], 05/23/2017 17:03:45 05/23/20 17 05/23/2017 phosp horus , blood color, urine straw Not Available [facility] [address], [address], [place], [address], 05/23/2017 17:03:45 05/23/20 17 05/23/2017 phosp horus , blood clarity, urine clear Not Available [facility] [address], [address], [place], [address], 05/23/2017 17:03:45 05/23/20 17 05/23/2017 phosp horus , blood pH, urine 1.006 Not Available [facility] [address], [address], [place], [address], 05/23/2017 17:03:45 05/23/20 17 05/23/2017 phosp horus , blood protein, urine negati ve Not Available [facility] [address], [address], [place], [address], 05/23/2017 17:03:45 05/23/20 17 05/23/2017 phosp horus , blood glucose, urine negati ve Not Available [facility] [address], [address], [place], [address], 05/23/2017 17:03:45 05/23/20 17 05/23/2017 phosp horus , blood ketones, urine negati ve Not Available [facility] [address], [address], [place], [address], 05/23/2017 17:03:45 05/23/20 17 05/23/2017 phosp horus , blood bilirubin, urine negati ve Not Available [facility] [address], [address], [place], [address], 05/23/2017 17:03:45 05/23/20 17 05/23/2017 phosp horus , blood blood, urine negati ve Not Available [facility] [address], [address], [place], [address], 05/23/2017 17:03:45 05/23/20 17 05/23/2017 phosp horus , blood nitrite, urine negati ve Not Available [facility] [address], [address], [place], [address], 05/23/2017 17:03:45 05/23/20 17 05/23/2017 phosp horus , blood leukocyte esterase negati ve Not Available [facility] [address] [facility] [address], [address], [place], [address], 05/23/2017 17:03:45 05/23/20 17 05/23/2017 phosp horus , blood urobilinogen , urine <2.0 Not Available [facility] [address], [address], [place], [address], 05/23/2017 17:03:45 05/23/20 17 05/23/2017 phosp horus , blood protein, urine, random 9.8 Not Available [facility] [address] [facility] [address], [address], [place], [address], 05/23/2017 17:03:45 05/23/20 17 05/23/2017 phosp horus , blood creatinine, urine, random 24.9 Not Available [facility] [address], [address], [place], [address], 05/23/2017 17:03:45 05/23/20 17 05/23/2017 phosp horus , blood HGB 14.7 Not Available [facility] [address], [address], [place], [address], 05/23/2017 17:03:45 05/23/20 17 05/23/2017 phosp horus , blood HCT 44.5 Not Available [facility] [address], [address], [place], [address], 05/23/2017 17:03:45 05/23/20 17 05/23/2017 phosp horus , blood WBC 4.5 Not Available [facility] [address], [address], [place], [address], 05/23/2017 17:03:45 05/23/20 17 05/23/2017 phosp horus , blood plt 212 Not Available [facility] [address], [address], [place], [address], 05/23/2017 17:03:45 05/23/20 17 05/23/2017 phosp horus , blood sodium, serum 137 Not Available [facility] [address], [address], [place], [address], 05/23/2017 17:03:45 05/23/20 17 05/23/2017 phosp horus , blood potassium, serum 3.5 Not Available [facility] [address], [address], [place], [address], 05/23/2017 17:03:45 05/23/20 17 05/23/2017 phosp horus , blood chloride, serum 99 Not Available [facility] [address], [address], [place], [address], 05/23/2017 17:03:45 05/23/20 17 05/23/2017 phosp horus , blood carbon dioxide 27 Not Available [facility] [address], [address], [place], [address], 05/23/2017 17:03:45 05/23/20 17 05/23/2017 phosp horus , blood calcium, serum 9.0 Not Available [facility] [address], [address], [place], [address], 05/23/2017 17:03:45 05/23/20 17 05/23/2017 phosp horus , blood glucose, serum 101 Not Available [facility] [address], [address], [place], [address], 05/23/2017 17:03:45 05/23/20 17 05/23/2017 phosp horus , blood BUN 24 Not Available [facility] [address] [facility] [address], [address], [place], [address], 05/23/2017 17:03:45 05/23/20 17 05/23/2017 phosp horus , blood creatinine 1.60 Not Available [facility] [address] [facility] [address], [address], [place], [address], 05/23/2017 17:03:45 05/23/20 17 05/23/2017 phosp horus , blood GFR 44 Not Available [facility] [address] [facility] [address], [address], [place], [address], 05/23/2017 17:03:45 05/23/20 17 05/23/2017 phosp horus , blood bilirubin, total 0.5 Not Available [facility] [address] [facility] [address], [address], [place], [address], 05/23/2017 17:03:45 05/23/20 17 05/23/2017 phosp horus , blood alkaline phosphatase 43 Not Available [facility] [address] [facility] [address], [address], [place], [address], 05/23/2017 17:03:45 05/23/20 17 05/23/2017 phosp horus , blood albumin, serum 4.1 Not Available [facility] [address] [facility] [address], [address], [place], [address], 05/23/2017 17:03:45 05/23/20 17 05/23/2017 phosp horus , blood protein, total, serum 7.0 Not Available [facility] [address] [facility] [address], [address], [place], [address], 05/23/2017 17:03:45 05/23/20 17 05/23/2017 phosp horus , blood magnesium 1.8 Not Available [facility] [address] [facility] [address], [address], [place], [address], 05/23/2017 17:03:45 05/23/20 17 05/23/2017 phosp horus , blood phosphorus 2.8 Not Available [facility] [address] [facility] [address], [address], [place], [address], 05/23/2017 17:03:45 05/23/20 17 05/23/2017 phosp horus , blood uric acid 6.1 Not Available [facility] [address] [facility] [address], [address], [place], [address], 05/23/2017 17:03:45 05/23/20 17 05/23/2017 phosp horus , blood PSA, total 0.762 Not Available [facility] [address] [facility] [address], [address], [place], [address], 05/23/2017 17:03:45 05/23/20 17 05/23/2017 magne sium, blood color, urine straw Not Available [facility] [address] [facility] [address], [address], [place], [address], 05/23/2017 17:03:45 05/23/20 17 05/23/2017 magne sium, blood clarity, urine clear Not Available [facility] [address] [facility] [address], [address], [place], [address], 05/23/2017 17:03:45 05/23/20 17 05/23/2017 magne sium, blood pH, urine 1.006 Not Available [facility] [address] [facility] [address], [address], [place], [address], 05/23/2017 17:03:45 05/23/20 17 05/23/2017 magne sium, blood protein, urine negati ve Not Available [facility] [address] [facility] [address], [address], [place], [address], 05/23/2017 17:03:45 05/23/20 17 05/23/2017 magne sium, blood glucose, urine negati ve Not Available [facility] [address] [facility] [address], [address], [place], [address], 05/23/2017 17:03:45 05/23/20 17 05/23/2017 magne sium, blood ketones, urine negati ve Not Available [facility] [address] [facility] [address], [address], [place], [address], 05/23/2017 17:03:45 05/23/20 17 05/23/2017 magne sium, blood bilirubin, urine negati ve Not Available [facility] [address] [facility] [address], [address], [place], [address], 05/23/2017 17:03:45 05/23/20 17 05/23/2017 magne sium, blood blood, urine negati ve Not Available [facility] [address] [facility] [address], [address], [place], [address], 05/23/2017 17:03:45 05/23/20 17 05/23/2017 magne sium, blood nitrite, urine negati ve Not Available [facility] [address] [facility] [address], [address], [place], [address], 05/23/2017 17:03:45 05/23/20 17 05/23/2017 magne sium, blood leukocyte esterase negati ve Not Available [facility] [address] [facility] [address], [address], [place], [address], 05/23/2017 17:03:45 05/23/20 17 05/23/2017 magne sium, blood urobilinogen , urine <2.0 Not Available [facility] [address] [facility] [address], [address], [place], [address], 05/23/2017 17:03:45 05/23/20 17 05/23/2017 magne sium, blood protein, urine, random 9.8 Not Available [facility] [address] [facility] [address], [address], [place], [address], 05/23/2017 17:03:45 05/23/20 17 05/23/2017 magne sium, blood creatinine, urine, random 24.9 Not Available [facility] [address] [facility] [address], [address], [place], [address], 05/23/2017 17:03:45 05/23/20 17 05/23/2017 magne sium, blood HGB 14.7 Not Available [facility] [address], [place], [address], 05/23/2017 17:03:45 05/23/20 17 05/23/2017 magne sium, blood HCT 44.5 Not Available [facility] [address] [facility] [address], [address], [place], [address], 05/23/2017 17:03:45 05/23/20 17 05/23/2017 magne sium, blood WBC 4.5 Not Available [facility] [address] [facility] [address], [address], [place], [address], 05/23/2017 17:03:45 05/23/20 17 05/23/2017 magne sium, blood plt 212 Not Available [facility] [address] [facility] [address], [address], [place], [address], 05/23/2017 17:03:45 05/23/20 17 05/23/2017 magne sium, blood sodium, serum 137 Not Available [facility] [address], [address], [place], [address], 05/23/2017 17:03:45 05/23/20 17 05/23/2017 magne sium, blood potassium, serum 3.5 Not Available [facility] [address], [address], [place], [address], 05/23/2017 17:03:45 05/23/20 17 05/23/2017 magne sium, blood chloride, serum 99 Not Available [facility] [address], [address], [place], [address], 05/23/2017 17:03:45 05/23/20 17 05/23/2017 magne sium, blood carbon dioxide 27 Not Available [facility] [address], [address], [place], [address], 05/23/2017 17:03:45 05/23/20 17 05/23/2017 magne sium, blood calcium, serum 9.0 Not Available [facility] [address], [address], [place], [address], 05/23/2017 17:03:45 05/23/20 17 05/23/2017 magne sium, blood glucose, serum 101 Not Available [facility] [address], [address], [place], [address], 05/23/2017 17:03:45 05/23/20 17 05/23/2017 magne sium, blood BUN 24 Not Available [facility] [address], [address], [place], [address], 05/23/2017 17:03:45 05/23/20 17 05/23/2017 magne sium, blood creatinine 1.60 Not Available [facility] [address] [facility] [address], [address], [place], [address], 05/23/2017 17:03:45 05/23/20 17 05/23/2017 magne sium, blood GFR 44 Not Available [facility] [address], [address], [place], [address], 05/23/2017 17:03:45 05/23/20 17 05/23/2017 magne sium, blood bilirubin, total 0.5 Not Available [facility] [address] [facility] [address], [address], [place], [address], 05/23/2017 17:03:45 05/23/20 17 05/23/2017 magne sium, blood alkaline phosphatase 43 Not Available [facility] [address] [facility] [address], [address], [place], [address], 05/23/2017 17:03:45 05/23/20 17 05/23/2017 magne sium, blood albumin, serum 4.1 Not Available [facility] [address] [facility] [address], [address], [place], [address], 05/23/2017 17:03:45 05/23/20 17 05/23/2017 magne sium, blood protein, total, serum 7.0 Not Available [facility] [address] [facility] [address], [address], [place], [address], 05/23/2017 17:03:45 05/23/20 17 05/23/2017 magne sium, blood magnesium 1.8 Not Available [facility] [address] [facility] [address], [address], [place], [address], 05/23/2017 17:03:45 05/23/20 17 05/23/2017 magne sium, blood phosphorus 2.8 Not Available [facility] [address] [facility] [address], [address], [place], [address], 05/23/2017 17:03:45 05/23/20 17 05/23/2017 magne sium, blood uric acid 6.1 Not Available [facility] [address] [facility] [address], [address], [place], [address], 05/23/2017 17:03:45 05/23/20 17 05/23/2017 magne sium, blood PSA, total 0.762 Not Available [facility] [address] [facility] [address], [address], [place], [address], 05/23/2017 17:03:45 05/23/20 17 05/23/2017 CMP, serum or plasm a color, urine straw Not Available [facility] [address] [facility] [address], [address], [place], [address], 05/23/2017 17:03:45 05/23/20 17 05/23/2017 CMP, serum or plasm a clarity, urine clear Not Available [facility] [address] [facility] [address], [address], [place], [address], 05/23/2017 17:03:45 05/23/20 17 05/23/2017 CMP, serum or plasm a pH, urine 1.006 Not Available [facility] [address] [facility] [address], [address], [place], [address], 05/23/2017 17:03:45 05/23/20 17 05/23/2017 CMP, serum or plasm a protein, urine negati ve Not Available [facility] [address], [address], [place], [address], 05/23/2017 17:03:45 05/23/20 17 05/23/2017 CMP, serum or plasm a glucose, urine negati ve Not Available [facility] [address] [facility] [address], [address], [place], [address], 05/23/2017 17:03:45 05/23/20 17 05/23/2017 CMP, serum or plasm a ketones, urine negati ve Not Available [facility] [address] [facility] [address], [address], [place], [address], 05/23/2017 17:03:45 05/23/20 17 05/23/2017 CMP, serum or plasm a bilirubin, urine negati ve Not Available [facility] [address] [facility] [address], [address], [place], [address], 05/23/2017 17:03:45 05/23/20 17 05/23/2017 CMP, serum or plasm a blood, urine negati ve Not Available [facility] [address] [facility] [address], [address], [place], [address], 05/23/2017 17:03:45 05/23/20 17 05/23/2017 CMP, serum or plasm a nitrite, urine negati ve Not Available [facility] [address] [facility] [address], [address], [place], [address], 05/23/2017 17:03:45 05/23/20 17 05/23/2017 CMP, serum or plasm a leukocyte esterase negati ve Not Available [facility] [address] [facility] [address], [address], [place], [address], 05/23/2017 17:03:45 05/23/20 17 05/23/2017 CMP, serum or plasm a urobilinogen , urine <2.0 Not Available [facility] [address] [facility] [address], [address], [place], [address], 05/23/2017 17:03:45 05/23/20 17 05/23/2017 CMP, serum or plasm a protein, urine, random 9.8 Not Available [facility] [address] [facility] [address], [address], [place], [address], 05/23/2017 17:03:45 05/23/20 17 05/23/2017 CMP, serum or plasm a creatinine, urine, random 24.9 Not Available [facility] [address] [facility] [address], [address], [place], [address], 05/23/2017 17:03:45 05/23/20 17 05/23/2017 CMP, serum or plasm a HGB 14.7 Not Available [facility] [address] [facility] [address], [place], [address], 05/23/2017 17:03:45 05/23/20 17 05/23/2017 CMP, serum or plasm a HCT 44.5 Not Available [facility] [address] [facility] [address], [place], [address], 05/23/2017 17:03:45 05/23/20 17 05/23/2017 CMP, serum or plasm a WBC 4.5 Not Available [facility] [address] [facility] [address], [address], [place], [address], 05/23/2017 17:03:45 05/23/20 17 05/23/2017 CMP, serum or plasm a plt 212 Not Available [facility] [address] [facility] [address], [address], [place], [address], 05/23/2017 17:03:45 05/23/20 17 05/23/2017 CMP, serum or plasm a sodium, serum 137 Not Available [facility] [address] [facility] [address], [address], [place], [address], 05/23/2017 17:03:45 05/23/20 17 05/23/2017 CMP, serum or plasm a potassium, serum 3.5 Not Available [facility] [address] [facility] [address], [address], [place], [address], 05/23/2017 17:03:45 05/23/20 17 05/23/2017 CMP, serum or plasm a chloride, serum 99 Not Available [facility] [address] [facility] [address], [address], [place], [address], 05/23/2017 17:03:45 05/23/20 17 05/23/2017 CMP, serum or plasm a carbon dioxide 27 Not Available [facility] [address] [facility] [address], [address], [place], [address], 05/23/2017 17:03:45 05/23/20 17 05/23/2017 CMP, serum or plasm a calcium, serum 9.0 Not Available [facility] [address] [facility] [address], [address], [place], [address], 05/23/2017 17:03:45 05/23/20 17 05/23/2017 CMP, serum or plasm a glucose, serum 101 Not Available [facility] [address], [place], [address], 05/23/2017 17:03:45 05/23/20 17 05/23/2017 CMP, serum or plasm a BUN 24 Not Available [facility] [address] [facility] [address], [address], [place], [address], 05/23/2017 17:03:45 05/23/20 17 05/23/2017 CMP, serum or plasm a creatinine 1.60 Not Available [facility] [address] [facility] [address], [address], [place], [address], 05/23/2017 17:03:45 05/23/20 17 05/23/2017 CMP, serum or plasm a GFR 44 Not Available [facility] [address], [place], [address], 05/23/2017 17:03:45 05/23/20 17 05/23/2017 CMP, serum or plasm a bilirubin, total 0.5 Not Available [address], [place], [address], 05/23/2017 17:03:45 05/23/20 17 05/23/2017 CMP, serum or plasm a alkaline phosphatase 43 Not Available [facility] [address] [place] [address] [address], [address], [place], [address], 05/23/2017 17:03:45 05/23/20 17 05/23/2017 CMP, serum or plasm a albumin, serum 4.1 Not Available [facility] [address] [facility] [address], [address], [place], [address], 05/23/2017 17:03:45 05/23/20 17 05/23/2017 CMP, serum or plasm a protein, total, serum 7.0 Not Available [address], [address], [place], [address], 05/23/2017 17:03:45 05/23/20 17 05/23/2017 CMP, serum or plasm a magnesium 1.8 Not Available [address], [address], [place], [address], 05/23/2017 17:03:45 05/23/20 17 05/23/2017 CMP, serum or plasm a phosphorus 2.8 Not Available [address], [address], [place], [address], 05/23/2017 17:03:45 05/23/20 17 05/23/2017 CMP, serum or plasm a uric acid 6.1 Not Available [address], [address], [place], [address], 05/23/2017 17:03:45 05/23/20 17 05/23/2017 CMP, serum or plasm a PSA, total 0.762 Not Available [facility] [address], [address], [place], [address], 05/23/2017 17:03:45 05/23/20 17 05/23/2017 CBC w/ auto diff color, urine straw Not Available [facility] [address] [facility] [address], [address], [place], [address], 05/23/2017 17:03:45 05/23/20 17 05/23/2017 CBC w/ auto diff clarity, urine clear Not Available [facility] [address], [address], [place], [address], 05/23/2017 17:03:45 05/23/20 17 05/23/2017 CBC w/ auto diff pH, urine 1.006 Not Available [facility] [address], [address], [place], [address], 05/23/2017 17:03:45 05/23/20 17 05/23/2017 CBC w/ auto diff protein, urine negati ve Not Available [facility] [address], [address], [place], [address], 05/23/2017 17:03:45 05/23/20 17 05/23/2017 CBC w/ auto diff glucose, urine negati ve Not Available [facility] [address], [address], [place], [address], 05/23/2017 17:03:45 05/23/20 17 05/23/2017 CBC w/ auto diff ketones, urine negati ve Not Available [facility] [address], [address], [place], [address], 05/23/2017 17:03:45 05/23/20 17 05/23/2017 CBC w/ auto diff bilirubin, urine negati ve Not Available [facility] [address] [facility] [address], [address], [place], [address], 05/23/2017 17:03:45 05/23/20 17 05/23/2017 CBC w/ auto diff blood, urine negati ve Not Available [facility] [address] [facility] [address], [address], [place], [address], 05/23/2017 17:03:45 05/23/20 17 05/23/2017 CBC w/ auto diff nitrite, urine negati ve Not Available [facility] [address], [address], [place], [address], 05/23/2017 17:03:45 05/23/20 17 05/23/2017 CBC w/ auto diff leukocyte esterase negati ve Not Available [facility] [address] [facility] [address], [address], [place], [address], 05/23/2017 17:03:45 05/23/20 17 05/23/2017 CBC w/ auto diff urobilinogen , urine <2.0 Not Available [facility] [address], [address], [place], [address], 05/23/2017 17:03:45 05/23/20 17 05/23/2017 CBC w/ auto diff protein, urine, random 9.8 Not Available [facility] [address], [address], [place], [address], 05/23/2017 17:03:45 05/23/20 17 05/23/2017 CBC w/ auto diff creatinine, urine, random 24.9 Not Available [facility] [address], [address], [place], [address], 05/23/2017 17:03:45 05/23/20 17 05/23/2017 CBC w/ auto diff HGB 14.7 Not Available [facility] [address] [facility] [address], [address], [place], [address], 05/23/2017 17:03:45 05/23/20 17 05/23/2017 CBC w/ auto diff HCT 44.5 Not Available [facility] [address] [facility] [address], [address], [place], [address], 05/23/2017 17:03:45 05/23/20 17 05/23/2017 CBC w/ auto diff WBC 4.5 Not Available [facility] [address] [facility] [address], [address], [place], [address], 05/23/2017 17:03:45 05/23/20 17 05/23/2017 CBC w/ auto diff plt 212 Not Available [facility] [address] [facility] [address], [address], [place], [address], 05/23/2017 17:03:45 05/23/20 17 05/23/2017 CBC w/ auto diff sodium, serum 137 Not Available [facility] [address] [facility] [address], [address], [place], [address], 05/23/2017 17:03:45 05/23/20 17 05/23/2017 CBC w/ auto diff potassium, serum 3.5 Not Available [facility] [address] [facility] [address], [address], [place], [address], 05/23/2017 17:03:45 05/23/20 17 05/23/2017 CBC w/ auto diff chloride, serum 99 Not Available [facility] [address] [facility] [address], [address], [place], [address], 05/23/2017 17:03:45 05/23/20 17 05/23/2017 CBC w/ auto diff carbon dioxide 27 Not Available [facility] [address] [facility] [address], [address], [place], [address], 05/23/2017 17:03:45 05/23/20 17 05/23/2017 CBC w/ auto diff calcium, serum 9.0 Not Available [facility] [address] [facility] [address], [address], [place], [address], 05/23/2017 17:03:45 05/23/20 17 05/23/2017 CBC w/ auto diff glucose, serum 101 Not Available [facility] [address] [facility] [address], [address], [place], [address], 05/23/2017 17:03:45 05/23/20 17 05/23/2017 CBC w/ auto diff BUN 24 Not Available [facility] [address] [facility] [address], [address], [place], [address], 05/23/2017 17:03:45 05/23/20 17 05/23/2017 CBC w/ auto diff creatinine 1.60 Not Available [facility] [address] [facility] [address] [address], [address], [place], [address], 05/23/2017 17:03:45 05/23/20 17 05/23/2017 CBC w/ auto diff GFR 44 Not Available [facility] [address] [facility] [address], [address], [place], [address], 05/23/2017 17:03:45 05/23/20 17 05/23/2017 CBC w/ auto diff bilirubin, total 0.5 Not Available [facility] [address] [facility] [address], [address], [place], [address], 05/23/2017 17:03:45 05/23/20 17 05/23/2017 CBC w/ auto diff alkaline phosphatase 43 Not Available [facility] [address], [address], [place], [address], 05/23/2017 17:03:45 05/23/20 17 05/23/2017 CBC w/ auto diff albumin, serum 4.1 Not Available [address], [address], [place], [address], 05/23/2017 17:03:45 05/23/20 17 05/23/2017 CBC w/ auto diff protein, total, serum 7.0 Not Available [address], [address], [place], [address], 05/23/2017 17:03:45 05/23/20 17 05/23/2017 CBC w/ auto diff magnesium 1.8 Not Available [facility] [address] [facility] [address], [address], [place], [address], 05/23/2017 17:03:45 05/23/20 17 05/23/2017 CBC w/ auto diff phosphorus 2.8 Not Available [address], [address], [place], [address], 05/23/2017 17:03:45 05/23/20 17 05/23/2017 CBC w/ auto diff uric acid 6.1 Not Available [address], [address], [place], [address], 05/23/2017 17:03:45 05/23/20 17 05/23/2017 CBC w/ auto diff PSA, total 0.762 Not Available [address], [address], [place], [address], 05/23/2017 17:03:45 05/23/20 17 05/23/2017 prote in:cr eatin ine ratio , urine color, urine straw Not Available [facility] [address] [facility] [address], [address], [place], [address], 05/23/2017 17:03:44 05/23/20 17 05/23/2017 prote in:cr eatin ine ratio , urine clarity, urine clear Not Available [facility] [address] [facility] [address], [address], [place], [address], 05/23/2017 17:03:44 05/23/20 17 05/23/2017 prote in:cr eatin ine ratio , urine pH, urine 1.006 Not Available [facility] [address] [facility] [address], [address], [place], [address], 05/23/2017 17:03:44 05/23/20 17 05/23/2017 prote in:cr eatin ine ratio , urine protein, urine negati ve Not Available [facility] [address] [facility] [address], [address], [place], [address], 05/23/2017 17:03:44 05/23/20 17 05/23/2017 prote in:cr eatin ine ratio , urine glucose, urine negati ve Not Available [facility] [address] [facility] [address], [address], [place], [address], 05/23/2017 17:03:44 05/23/20 17 05/23/2017 prote in:cr eatin ine ratio , urine ketones, urine negati ve Not Available [facility] [address] [facility] [address], [address], [place], [address], 05/23/2017 17:03:44 05/23/20 17 05/23/2017 prote in:cr eatin ine ratio , urine bilirubin, urine negati ve Not Available [facility] [address] [facility] [address], [address], [place], [address], 05/23/2017 17:03:44 05/23/20 17 05/23/2017 prote in:cr eatin ine ratio , urine blood, urine negati ve Not Available [facility] [address] [facility] [address], [address], [place], [address], 05/23/2017 17:03:44 05/23/20 17 05/23/2017 prote in:cr eatin ine ratio , urine nitrite, urine negati ve Not Available [facility] [address], [address], [place], [address], 05/23/2017 17:03:44 05/23/20 17 05/23/2017 prote in:cr eatin ine ratio , urine leukocyte esterase negati ve Not Available [facility] [address] [facility] [address], [address], [place], [address], 05/23/2017 17:03:44 05/23/20 17 05/23/2017 prote in:cr eatin ine ratio , urine urobilinogen , urine <2.0 Not Available [facility] [address] [facility] [address], [address], [place], [address], 05/23/2017 17:03:44 05/23/20 17 05/23/2017 prote in:cr eatin ine ratio , urine protein, urine, random 9.8 Not Available [facility] [address], [address], [place], [address], 05/23/2017 17:03:44 05/23/20 17 05/23/2017 prote in:cr eatin ine ratio , urine creatinine, urine, random 24.9 Not Available [facility] [address], [address], [place], [address], 05/23/2017 17:03:44 05/23/20 17 05/23/2017 prote in:cr eatin ine ratio , urine HGB 14.7 Not Available [facility] [address], [address], [place], [address], 05/23/2017 17:03:44 05/23/20 17 05/23/2017 prote in:cr eatin ine ratio , urine HCT 44.5 Not Available [facility] [address] [facility], [address], [place], [address], 05/23/2017 17:03:44 05/23/20 17 05/23/2017 prote in:cr eatin ine ratio , urine WBC 4.5 Not Available [facility] [address] [facility] [address], [address], [place], [address], 05/23/2017 17:03:44 05/23/20 17 05/23/2017 prote in:cr eatin ine ratio , urine plt 212 Not Available [facility] [address] [facility] [address], [address], [place], [address], 05/23/2017 17:03:44 05/23/20 17 05/23/2017 prote in:cr eatin ine ratio , urine sodium, serum 137 Not Available [facility] [address] [facility] [address], [address], [place], [address], 05/23/2017 17:03:44 05/23/20 17 05/23/2017 prote in:cr eatin ine ratio , urine potassium, serum 3.5 Not Available [facility] [address] [facility] [address], [address], [place], [address], 05/23/2017 17:03:44 05/23/20 17 05/23/2017 prote in:cr eatin ine ratio , urine chloride, serum 99 Not Available [facility] [address] [facility] [address], [address], [place], [address], 05/23/2017 17:03:44 05/23/20 17 05/23/2017 prote in:cr eatin ine ratio , urine carbon dioxide 27 Not Available [facility] [address] [facility] [address], [address], [place], [address], 05/23/2017 17:03:44 05/23/20 17 05/23/2017 prote in:cr eatin ine ratio , urine calcium, serum 9.0 Not Available [facility] [address] [facility] [address], [address], [place], [address], 05/23/2017 17:03:44 05/23/20 17 05/23/2017 prote in:cr eatin ine ratio , urine glucose, serum 101 Not Available [facility] [address] [facility] [address], [address], [place], [address], 05/23/2017 17:03:44 05/23/20 17 05/23/2017 prote in:cr eatin ine ratio , urine BUN 24 Not Available [facility] [address] [facility] [address], [address], [place], [address], 05/23/2017 17:03:44 05/23/20 17 05/23/2017 prote in:cr eatin ine ratio , urine creatinine 1.60 Not Available [facility] [address] [facility] [address], [address], [place], [address], 05/23/2017 17:03:44 05/23/20 17 05/23/2017 prote in:cr eatin ine ratio , urine GFR 44 Not Available [facility] [address] [facility] [address], [address], [place], [address], 05/23/2017 17:03:44 05/23/20 17 05/23/2017 prote in:cr eatin ine ratio , urine bilirubin, total 0.5 Not Available [facility] [address] [facility] [address], [address], [place], [address], 05/23/2017 17:03:44 05/23/20 17 05/23/2017 prote in:cr eatin ine ratio , urine alkaline phosphatase 43 Not Available [facility] [address] [facility] [address], [address], [place], [address], 05/23/2017 17:03:44 05/23/20 17 05/23/2017 prote in:cr eatin ine ratio , urine albumin, serum 4.1 Not Available [facility] [address] [facility] [address], [address], [place], [address], 05/23/2017 17:03:44 05/23/20 17 05/23/2017 prote in:cr eatin ine ratio , urine protein, total, serum 7.0 Not Available [facility] [address] [facility] [address], [address], [place], [address], 05/23/2017 17:03:44 05/23/20 17 05/23/2017 prote in:cr eatin ine ratio , urine magnesium 1.8 Not Available [facility] [address] [facility] [address], [address], [place], [address], 05/23/2017 17:03:44 05/23/20 17 05/23/2017 prote in:cr eatin ine ratio , urine phosphorus 2.8 Not Available [facility] [address] [facility] [address], [address], [place], [address], 05/23/2017 17:03:44 05/23/20 17 05/23/2017 prote in:cr eatin ine ratio , urine uric acid 6.1 Not Available [facility] [address] [facility] [address], [address], [place], [address], 05/23/2017 17:03:44 05/23/20 17 05/23/2017 prote in:cr eatin ine ratio , urine PSA, total 0.762 Not Available [facility] [address] [facility] [address], [address], [place], [address], 05/23/2017 17:03:44 05/23/20 17 05/23/2017 urina lysis , dipst ick, refle x micro color, urine straw Not Available [facility] [address] [facility], [address], [place], [address], 05/23/2017 15:47:58 05/23/20 17 05/23/2017 urina lysis , dipst ick, refle x micro clarity, urine clear Not Available [facility] [address], [address], [place], [address], 05/23/2017 15:47:58 05/23/20 17 05/23/2017 urina lysis , dipst ick, refle x micro pH, urine 1.006 Not Available [facility] [address] [facility] [address], [address], [place], [address], 05/23/2017 15:47:58 05/23/20 17 05/23/2017 urina lysis , dipst ick, refle x micro protein, urine negati ve Not Available [address], [address], [place], [address], 05/23/2017 15:47:58 05/23/20 17 05/23/2017 urina lysis , dipst ick, refle x micro glucose, urine negati ve Not Available [facility] [address] [facility] [address], [address], [place], [address], 05/23/2017 15:47:58 05/23/20 17 05/23/2017 urina lysis , dipst ick, refle x micro ketones, urine negati ve Not Available [facility] [address] [place] [address] [address], [address], [place], [address], 05/23/2017 15:47:58 05/23/20 17 05/23/2017 urina lysis , dipst ick, refle x micro bilirubin, urine negati ve Not Available [facility] [address] [facility] [address], [address], [place], [address], 05/23/2017 15:47:58 05/23/20 17 05/23/2017 urina lysis , dipst ick, refle x micro blood, urine negati ve Not Available [facility] [address] [facility] [address], [address], [place], [address], 05/23/2017 15:47:58 05/23/20 17 05/23/2017 urina lysis , dipst ick, refle x micro nitrite, urine negati ve Not Available [facility] [address] [facility] [address], [address], [place], [address], 05/23/2017 15:47:58 05/23/20 17 05/23/2017 urina lysis , dipst ick, refle x micro leukocyte esterase negati ve Not Available [facility] [address] [facility] [address], [address], [place], [address], 05/23/2017 15:47:58 05/23/20 17 05/23/2017 urina lysis , dipst ick, refle x micro urobilinogen , urine <2.0 Not Available [address], [address], [place], [address], 05/23/2017 15:47:58 05/23/20 17 05/23/2017 urina lysis , dipst ick, refle x micro protein, urine, random 9.8 Not Available [address], [address], [place], [address], 05/23/2017 15:47:58 05/23/20 17 05/23/2017 urina lysis , dipst ick, refle x micro creatinine, urine, random 24.9 Not Available [facility] [address] [facility] [address], [address], [place], [address], 05/23/2017 15:47:58 05/23/20 17 05/23/2017 urina lysis , dipst ick, refle x micro HGB 14.7 Not Available [facility] [address] [facility] [address], [address], [place], [address], 05/23/2017 15:47:58 05/23/20 17 05/23/2017 urina lysis , dipst ick, refle x micro HCT 44.5 Not Available [facility] [address], [address], [place], [address], 05/23/2017 15:47:58 05/23/20 17 05/23/2017 urina lysis , dipst ick, refle x micro WBC 4.5 Not Available [facility] [address] [facility] [address], [address], [place], [address], 05/23/2017 15:47:58 05/23/20 17 05/23/2017 urina lysis , dipst ick, refle x micro plt 212 Not Available [facility] [address] [facility] [address], [address], [place], [address], 05/23/2017 15:47:58 05/23/20 17 05/23/2017 urina lysis , dipst ick, refle x micro sodium, serum 137 Not Available [facility] [address], [address], [place], [address], 05/23/2017 15:47:58 05/23/20 17 05/23/2017 urina lysis , dipst ick, refle x micro potassium, serum 3.5 Not Available [facility] [address], [address], [place], [address], 05/23/2017 15:47:58 05/23/20 17 05/23/2017 urina lysis , dipst ick, refle x micro chloride, serum 99 Not Available [facility] [address] [facility] [address], [address], [place], [address], 05/23/2017 15:47:58 05/23/20 17 05/23/2017 urina lysis , dipst ick, refle x micro carbon dioxide 27 Not Available [facility] [address] [facility] [address], [address], [place], [address], 05/23/2017 15:47:58 05/23/20 17 05/23/2017 urina lysis , dipst ick, refle x micro calcium, serum 9.0 Not Available [facility] [address] [facility] [address], [address], [place], [address], 05/23/2017 15:47:58 05/23/20 17 05/23/2017 urina lysis , dipst ick, refle x micro glucose, serum 101 Not Available [facility] [address] [facility] [address], [address], [place], [address], 05/23/2017 15:47:58 05/23/20 17 05/23/2017 urina lysis , dipst ick, refle x micro BUN 24 Not Available [facility] [address] [facility] [address], [address], [place], [address], 05/23/2017 15:47:58 05/23/20 17 05/23/2017 urina lysis , dipst ick, refle x micro creatinine 1.60 Not Available [facility] [address] [facility] [address], [address], [place], [address], 05/23/2017 15:47:58 05/23/20 17 05/23/2017 urina lysis , dipst ick, refle x micro GFR 44 Not Available [facility] [address] [facility] [address], [address], [place], [address], 05/23/2017 15:47:58 05/23/20 17 05/23/2017 urina lysis , dipst ick, refle x micro bilirubin, total 0.5 Not Available [facility] [address] [facility] [address], [address], [place], [address], 05/23/2017 15:47:58 05/23/20 17 05/23/2017 urina lysis , dipst ick, refle x micro alkaline phosphatase 43 Not Available [facility] [address] [place], [place] [address]za [facility] [address], [address], [place], [address], 05/23/2017 15:47:58 05/23/20 17 05/23/2017 urina lysis , dipst ick, refle x micro albumin, serum 4.1 Not Available [address] [facility] [address], [address], [place], [address], 05/23/2017 15:47:58 05/23/20 17 05/23/2017 urina lysis , dipst ick, refle x micro protein, total, serum 7.0 Not Available [address] [facility] [address], [address], [place], [address], 05/23/2017 15:47:58 05/23/20 17 05/23/2017 urina lysis , dipst ick, refle x micro magnesium 1.8 Not Available [address] [facility] [address], [address], [place], [address], 05/23/2017 15:47:58 05/23/20 17 05/23/2017 urina lysis , dipst ick, refle x micro phosphorus 2.8 Not Available [address] [facility] [address], [address], [place], [address], 05/23/2017 15:47:58 05/23/20 17 05/23/2017 urina lysis , dipst ick, refle x micro uric acid 6.1 Not Available [address] [facility] [address], [address], [place], [address], 05/23/2017 15:47:58 05/23/20 17 05/23/2017 urina lysis , dipst ick, refle x micro PSA, total 0.762 Not Available [facility] [address] [facility] [address], [address], [place], [address], 05/23/2017 15:47:58 11/16/19 18 11/15/2017 urina lysis , dipst ick, refle x micro color, urine light, yellow Not Available [facility] [address] [facility], [address], [place], [address], 11/18/2017 15:55:55 11/16/19 18 11/15/2017 urina lysis , dipst ick, refle x micro clarity, urine clear Not Available [facility] [address] [facility] [address], [address], [place], [address], 11/18/2017 15:55:55 11/16/19 18 11/15/2017 urina lysis , dipst ick, refle x micro pH, urine 6.0 Not Available [facility] [address] [facility] [address], [address], [place], [address], 11/18/2017 15:55:55 11/16/19 18 11/15/2017 urina lysis , dipst ick, refle x micro specific gravity, urine 1.010 Not Available [facility] [address] [facility] [address], [address], [place], [address], 11/18/2017 15:55:55 11/16/19 18 11/15/2017 urina lysis , dipst ick, refle x micro protein, total, urine 30 Not Available [facility] [address] [facility] [address], [address], [place], [address], 11/18/2017 15:55:55 11/16/19 18 11/15/2017 urina lysis , dipst ick, refle x micro glucose, urine negati ve Not Available [facility] [address] [facility] [address], [address], [place], [address], 11/18/2017 15:55:55 11/16/19 18 11/15/2017 urina lysis , dipst ick, refle x micro ketones, urine negati ve Not Available [facility] [address] [facility] [address], [address], [place], [address], 11/18/2017 15:55:55 11/16/19 18 11/15/2017 urina lysis , dipst ick, refle x micro bilirubin, urine negati ve Not Available [facility] [address] [facility] [address], [address], [place], [address], 11/18/2017 15:55:55 11/16/19 18 11/15/2017 urina lysis , dipst ick, refle x micro blood, urine negati ve Not Available [facility] [address] [facility] [address], [address], [place], [address], 11/18/2017 15:55:55 11/16/19 18 11/15/2017 urina lysis , dipst ick, refle x micro nitrite, urine negati ve Not Available [facility] [address] [facility] [address], [address], [place], [address], 11/18/2017 15:55:55 11/16/19 18 11/15/2017 urina lysis , dipst ick, refle x micro leukocyte esterase, urine negati ve Not Available [facility] [address] [facility] [address], [address], [place], [address], 11/18/2017 15:55:55 11/16/19 18 11/15/2017 urina lysis , dipst ick, refle x micro urobilinogen , urine <2.0 Not Available [facility] [address] [facility] [address], [place], [address], 11/18/2017 15:55:55 11/16/19 18 11/15/2017 urina lysis , dipst ick, refle x micro WBC casts, urine <1 Not Available [address], [place], [address], 11/18/2017 15:55:55 11/16/19 18 11/15/2017 urina lysis , dipst ick, refle x micro red blood cells, urine 0 Not Available [facility] [address] [facility] [address] [address], [address], [place], [address], 11/18/2017 15:55:55 11/16/19 18 11/15/2017 urina lysis , dipst ick, refle x micro epithelial cells, urine <1 Not Available [address], [address], [place], [address], 11/18/2017 15:55:55 11/16/19 18 11/15/2017 urina lysis , dipst ick, refle x micro protein, urine, random 10.1 Not Available [address], [address], [place], [address], 11/18/2017 15:55:55 11/16/19 18 11/15/2017 urina lysis , dipst ick, refle x micro creatinine, urine, random 48.7 Not Available [address], [address], [place], [address], 11/18/2017 15:55:55 11/16/19 18 11/15/2017 urina lysis , dipst ick, refle x micro HGB 15.3 Not Available [address], [address], [place], [address], 11/18/2017 15:55:55 11/16/19 18 11/15/2017 urina lysis , dipst ick, refle x micro HCT 44.1 Not Available [address], [address], [place], [address], 11/18/2017 15:55:55 11/16/19 18 11/15/2017 urina lysis , dipst ick, refle x micro WBC 6.6 Not Available [facility] [address] [facility] [address], [address], [place], [address], 11/18/2017 15:55:55 11/16/19 18 11/15/2017 urina lysis , dipst ick, refle x micro plt 275 Not Available [facility] [address] [facility] [address], [address], [place], [address], 11/18/2017 15:55:55 11/16/19 18 11/15/2017 urina lysis , dipst ick, refle x micro sodium, serum 137 Not Available [facility] [address] [facility] [address], [address], [place], [address], 11/18/2017 15:55:55 11/16/19 18 11/15/2017 urina lysis , dipst ick, refle x micro potassium, seerum 4.0 Not Available [facility] [address] [facility] [address], [address], [place], [address], 11/18/2017 15:55:55 11/16/19 18 11/15/2017 urina lysis , dipst ick, refle x micro chloride, serum 96 Not Available [facility] [address] [facility] [address], [address], [place], [address], 11/18/2017 15:55:55 11/16/19 18 11/15/2017 urina lysis , dipst ick, refle x micro carbon dioxide 27 Not Available [facility] [address] [facility] [address], [address], [place], [address], 11/18/2017 15:55:55 11/16/19 18 11/15/2017 urina lysis , dipst ick, refle x micro calcium, serum 9.5 Not Available [facility] [address], [address], [place], [address], 11/18/2017 15:55:55 11/16/19 18 11/15/2017 urina lysis , dipst ick, refle x micro glucose, serum 92 Not Available [facility] [address], [address], [place], [address], 11/18/2017 15:55:55 11/16/19 18 11/15/2017 urina lysis , dipst ick, refle x micro BUN 27 Not Available [facility] [address], [address], [place], [address], 11/18/2017 15:55:55 11/16/19 18 11/15/2017 urina lysis , dipst ick, refle x micro creatinine 1.63 Not Available [facility] [address], [address], [place], [address], 11/18/2017 15:55:55 11/16/19 18 11/15/2017 urina lysis , dipst ick, refle x micro GFR 43 Not Available [facility] [address], [address], [place], [address], 11/18/2017 15:55:55 11/16/19 18 11/15/2017 urina lysis , dipst ick, refle x micro bilirubin, total 0.6 Not Available [facility] [address], [address], [place], [address], 11/18/2017 15:55:55 11/16/19 18 11/15/2017 urina lysis , dipst ick, refle x micro albumin, serum 4.5 Not Available [facility] [address], [address], [place], [address], 11/18/2017 15:55:55 11/16/19 18 11/15/2017 urina lysis , dipst ick, refle x micro protein, total, serum 7.5 Not Available [address], [address], [place], [address], 11/18/2017 15:55:55 11/16/19 18 11/15/2017 urina lysis , dipst ick, refle x micro magnesium 1.8 Not Available [address], [address], [place], [address], 11/18/2017 15:55:55 11/16/19 18 11/15/2017 urina lysis , dipst ick, refle x micro phosphorus 3.6 Not Available [address], [address], [place], [address], 11/18/2017 15:55:55 11/16/19 18 11/15/2017 urina lysis , dipst ick, refle x micro uric acid 5.6 Not Available [address], [address], [place], [address], 11/18/2017 15:55:55 11/16/19 18 11/15/2017 uric acid, serum or plasm a color, urine light, yellow Not Available [address], [address], [place], [address], 11/19/2017 19:46:51 11/16/19 18 11/15/2017 uric acid, serum or plasm a clarity, urine clear Not Available [address], [address], [place], [address], 11/19/2017 19:46:51 11/16/19 18 11/15/2017 uric acid, serum or plasm a pH, urine 6.0 Not Available [facility] [address] [facility] [address], [address], [place], [address], 11/19/2017 19:46:51 11/16/19 18 11/15/2017 uric acid, serum or plasm a specific gravity, urine 1.010 Not Available [address], [place], [address], 11/19/2017 19:46:51 11/16/19 18 11/15/2017 uric acid, serum or plasm a protein, total, urine 30 Not Available [facility] [address] [facility], [place], [address], 11/19/2017 19:46:51 11/16/19 18 11/15/2017 uric acid, serum or plasm a glucose, urine negati ve Not Available [address], [address], [place], [address], 11/19/2017 19:46:51 11/16/19 18 11/15/2017 uric acid, serum or plasm a ketones, urine negati ve Not Available [facility] [address] [facility] [address], [address], [place], [address], 11/19/2017 19:46:51 11/16/19 18 11/15/2017 uric acid, serum or plasm a bilirubin, urine negati ve Not Available [address], [address], [place], [address], 11/19/2017 19:46:51 11/16/19 18 11/15/2017 uric acid, serum or plasm a blood, urine negati ve Not Available [address], [address], [place], [address], 11/19/2017 19:46:51 11/16/19 18 11/15/2017 uric acid, serum or plasm a nitrite, urine negati ve Not Available [facility] [address] [facility] [address], [place], [address], 11/19/2017 19:46:51 11/16/19 18 11/15/2017 uric acid, serum or plasm a leukocyte esterase, urine negati ve Not Available [facility] [address] [facility] [address], [address], [place], [address], 11/19/2017 19:46:51 11/16/19 18 11/15/2017 uric acid, serum or plasm a urobilinogen , urine <2.0 Not Available [facility] [address] [facility] [address], [address], [place], [address], 11/19/2017 19:46:51 11/16/19 18 11/15/2017 uric acid, serum or plasm a WBC casts, urine <1 Not Available [facility] [address] [facility] [address], [address], [place], [address], 11/19/2017 19:46:51 11/16/19 18 11/15/2017 uric acid, serum or plasm a red blood cells, urine 0 Not Available [facility] [address] [facility] [address], [address], [place], [address], 11/19/2017 19:46:51 11/16/19 18 11/15/2017 uric acid, serum or plasm a epithelial cells, urine <1 Not Available [facility] [address] [facility] [address], [address], [place], [address], 11/19/2017 19:46:51 11/16/19 18 11/15/2017 uric acid, serum or plasm a protein, urine, random 10.1 Not Available [facility] [address] [facility] [address], [address], [place], [address], 11/19/2017 19:46:51 11/16/19 18 11/15/2017 uric acid, serum or plasm a creatinine, urine, random 48.7 Not Available [facility] [address], [address], [place], [address], 11/19/2017 19:46:51 11/16/19 18 11/15/2017 uric acid, serum or plasm a HGB 15.3 Not Available [facility] [address] [facility] [address], [address], [place], [address], 11/19/2017 19:46:51 11/16/19 18 11/15/2017 uric acid, serum or plasm a HCT 44.1 Not Available [facility] [address] [facility] [address], [address], [place], [address], 11/19/2017 19:46:51 11/16/19 18 11/15/2017 uric acid, serum or plasm a WBC 6.6 Not Available [facility] [address] [facility] [address], [address], [place], [address], 11/19/2017 19:46:51 11/16/19 18 11/15/2017 uric acid, serum or plasm a plt 275 Not Available [facility] [address] [facility] [address], [address], [place], [address], 11/19/2017 19:46:51 11/16/19 18 11/15/2017 uric acid, serum or plasm a sodium, serum 137 Not Available [facility] [address] [facility] [address], [address], [place], [address], 11/19/2017 19:46:51 11/16/19 18 11/15/2017 uric acid, serum or plasm a potassium, seerum 4.0 Not Available [facility] [address] [facility] [address], [address], [place], [address], 11/19/2017 19:46:51 11/16/19 18 11/15/2017 uric acid, serum or plasm a chloride, serum 96 Not Available [facility] [address] [facility] [address], [address], [place], [address], 11/19/2017 19:46:51 11/16/19 18 11/15/2017 uric acid, serum or plasm a carbon dioxide 27 Not Available [facility] [address] [facility] [address], [address], [place], [address], 11/19/2017 19:46:51 11/16/19 18 11/15/2017 uric acid, serum or plasm a calcium, serum 9.5 Not Available [facility] [address] [facility] [address], [address], [place], [address], 11/19/2017 19:46:51 11/16/19 18 11/15/2017 uric acid, serum or plasm a glucose, serum 92 Not Available [facility] [address] [facility] [address], [address], [place], [address], 11/19/2017 19:46:51 11/16/19 18 11/15/2017 uric acid, serum or plasm a BUN 27 Not Available [facility] [address] [facility] [address], [address], [place], [address], 11/19/2017 19:46:51 11/16/19 18 11/15/2017 uric acid, serum or plasm a creatinine 1.63 Not Available [facility] [address] [facility] [address], [address], [place], [address], 11/19/2017 19:46:51 11/16/19 18 11/15/2017 uric acid, serum or plasm a GFR 43 Not Available [facility] [address] [facility] [address], [address], [place], [address], 11/19/2017 19:46:51 11/16/19 18 11/15/2017 uric acid, serum or plasm a bilirubin, total 0.6 Not Available [facility] [address] [facility] [address], [address], [place], [address], 11/19/2017 19:46:51 11/16/19 18 11/15/2017 uric acid, serum or plasm a albumin, serum 4.5 Not Available [address], [address], [place], [address], 11/19/2017 19:46:51 11/16/19 18 11/15/2017 uric acid, serum or plasm a protein, total, serum 7.5 Not Available [facility] [address] [facility] [address], [address], [place], [address], 11/19/2017 19:46:51 11/16/19 18 11/15/2017 uric acid, serum or plasm a magnesium 1.8 Not Available [address], [address], [place], [address], 11/19/2017 19:46:51 11/16/19 18 11/15/2017 uric acid, serum or plasm a phosphorus 3.6 Not Available [facility] [address] [facility] [address], [address], [place], [address], 11/19/2017 19:46:51 11/16/19 18 11/15/2017 uric acid, serum or plasm a uric acid 5.6 Not Available [address] [facility] [address], [address], [place], [address], 11/19/2017 19:46:51 11/16/19 18 11/15/2017 phosp horus , blood color, urine light, yellow Not Available [facility] [address] [facility] [address], [address], [place], [address], 11/19/2017 19:46:50 11/16/19 18 11/15/2017 phosp horus , blood clarity, urine clear Not Available [facility] [address] [facility] [address], [address], [place], [address], 11/19/2017 19:46:50 11/16/19 18 11/15/2017 phosp horus , blood pH, urine 6.0 Not Available [facility] [address] [facility] [address], [address], [place], [address], 11/19/2017 19:46:50 11/16/19 18 11/15/2017 phosp horus , blood specific gravity, urine 1.010 Not Available [facility] [address] [facility] [address], [address], [place], [address], 11/19/2017 19:46:50 11/16/19 18 11/15/2017 phosp horus , blood protein, total, urine 30 Not Available [facility] [address] [facility] [address], [address], [place], [address], 11/19/2017 19:46:50 11/16/19 18 11/15/2017 phosp horus , blood glucose, urine negati ve Not Available [facility] [address] [facility] [address], [address], [place], [address], 11/19/2017 19:46:50 11/16/19 18 11/15/2017 phosp horus , blood ketones, urine negati ve Not Available [facility] [address] [facility] [address], [address], [place], [address], 11/19/2017 19:46:50 11/16/19 18 11/15/2017 phosp horus , blood bilirubin, urine negati ve Not Available [facility] [address] [facility] [address], [address], [place], [address], 11/19/2017 19:46:50 11/16/19 18 11/15/2017 phosp horus , blood blood, urine negati ve Not Available [facility] [address] [facility] [address], [address], [place], [address], 11/19/2017 19:46:50 11/16/19 18 11/15/2017 phosp horus , blood nitrite, urine negati ve Not Available [facility] [address] [facility] [address], [address], [place], [address], 11/19/2017 19:46:50 11/16/19 18 11/15/2017 phosp horus , blood leukocyte esterase, urine negati ve Not Available [facility] [address] [facility] [address], [address], [place], [address], 11/19/2017 19:46:50 11/16/19 18 11/15/2017 phosp horus , blood urobilinogen , urine <2.0 Not Available [facility] [address] [facility] [address], [address], [place], [address], 11/19/2017 19:46:50 11/16/19 18 11/15/2017 phosp horus , blood WBC casts, urine <1 Not Available [facility] [address] [facility] [address], [address], [place], [address], 11/19/2017 19:46:50 11/16/19 18 11/15/2017 phosp horus , blood red blood cells, urine 0 Not Available [facility] [address] [facility] [address], [address], [place], [address], 11/19/2017 19:46:50 11/16/19 18 11/15/2017 phosp horus , blood epithelial cells, urine <1 Not Available [facility] [address] [facility] [address], [address], [place], [address], 11/19/2017 19:46:50 11/16/19 18 11/15/2017 phosp horus , blood protein, urine, random 10.1 Not Available [facility] [address] [facility] [address], [address], [place], [address], 11/19/2017 19:46:50 11/16/19 18 11/15/2017 phosp horus , blood creatinine, urine, random 48.7 Not Available [facility] [address], [address], [place], [address], 11/19/2017 19:46:50 11/16/19 18 11/15/2017 phosp horus , blood HGB 15.3 Not Available [facility] [address], [address], [place], [address], 11/19/2017 19:46:50 11/16/19 18 11/15/2017 phosp horus , blood HCT 44.1 Not Available [facility] [address], [address], [place], [address], 11/19/2017 19:46:50 11/16/19 18 11/15/2017 phosp horus , blood WBC 6.6 Not Available [facility] [address], [address], [place], [address], 11/19/2017 19:46:50 11/16/19 18 11/15/2017 phosp horus , blood plt 275 Not Available [facility] [address], [address], [place], [address], 11/19/2017 19:46:50 11/16/19 18 11/15/2017 phosp horus , blood sodium, serum 137 Not Available [facility] [address], [address], [place], [address], 11/19/2017 19:46:50 11/16/19 18 11/15/2017 phosp horus , blood potassium, seerum 4.0 Not Available [facility] [address], [address], [place], [address], 11/19/2017 19:46:50 11/16/19 18 11/15/2017 phosp horus , blood chloride, serum 96 Not Available [facility] [address], [address], [place], [address], 11/19/2017 19:46:50 11/16/19 18 11/15/2017 phosp horus , blood carbon dioxide 27 Not Available [facility] [address], [address], [place], [address], 11/19/2017 19:46:50 11/16/19 18 11/15/2017 phosp horus , blood calcium, serum 9.5 Not Available [facility] [address], [address], [place], [address], 11/19/2017 19:46:50 11/16/19 18 11/15/2017 phosp horus , blood glucose, serum 92 Not Available [facility] [address], [address], [place], [address], 11/19/2017 19:46:50 11/16/19 18 11/15/2017 phosp horus , blood BUN 27 Not Available [facility] [address], [address], [place], [address], 11/19/2017 19:46:50 11/16/19 18 11/15/2017 phosp horus , blood creatinine 1.63 Not Available [facility] [address], [address], [place], [address], 11/19/2017 19:46:50 11/16/19 18 11/15/2017 phosp horus , blood GFR 43 Not Available [facility] [address], [address], [place], [address], 11/19/2017 19:46:50 11/16/19 18 11/15/2017 phosp horus , blood bilirubin, total 0.6 Not Available [facility] [address] [facility] [address], [address], [place], [address], 11/19/2017 19:46:50 11/16/19 18 11/15/2017 phosp horus , blood albumin, serum 4.5 Not Available [facility] [address] [facility] [address], [address], [place], [address], 11/19/2017 19:46:50 11/16/19 18 11/15/2017 phosp horus , blood protein, total, serum 7.5 Not Available [facility] [address] [facility] [address], [address], [place], [address], 11/19/2017 19:46:50 11/16/19 18 11/15/2017 phosp horus , blood magnesium 1.8 Not Available [facility] [address] [facility] [address], [address], [place], [address], 11/19/2017 19:46:50 11/16/19 18 11/15/2017 phosp horus , blood phosphorus 3.6 Not Available [facility] [address] [facility] [address], [address], [place], [address], 11/19/2017 19:46:50 11/16/19 18 11/15/2017 phosp horus , blood uric acid 5.6 Not Available [facility] [address] [facility] [address], [address], [place], [address], 11/19/2017 19:46:50 11/16/19 18 11/15/2017 magne sium, blood color, urine light, yellow Not Available [facility] [address] [facility] [address], [address], [place], [address], 11/19/2017 19:46:50 11/16/19 18 11/15/2017 magne sium, blood clarity, urine clear Not Available [facility] [address] [facility] [address], [address], [place], [address], 11/19/2017 19:46:50 11/16/19 18 11/15/2017 magne sium, blood pH, urine 6.0 Not Available [facility] [address] [facility] [address], [address], [place], [address], 11/19/2017 19:46:50 11/16/19 18 11/15/2017 magne sium, blood specific gravity, urine 1.010 Not Available [facility] [address] [facility] [address], [address], [place], [address], 11/19/2017 19:46:50 11/16/19 18 11/15/2017 magne sium, blood protein, total, urine 30 Not Available [facility] [address] [facility] [address], [address], [place], [address], 11/19/2017 19:46:50 11/16/19 18 11/15/2017 magne sium, blood glucose, urine negati ve Not Available [facility] [address] [facility] [address], [address], [place], [address], 11/19/2017 19:46:50 11/16/19 18 11/15/2017 magne sium, blood ketones, urine negati ve Not Available [facility] [address] [facility] [address], [address], [place], [address], 11/19/2017 19:46:50 11/16/19 18 11/15/2017 magne sium, blood bilirubin, urine negati ve Not Available [facility] [address] [facility] [address], [address], [place], [address], 11/19/2017 19:46:50 11/16/19 18 11/15/2017 magne sium, blood blood, urine negati ve Not Available [facility] [address] [facility] [address], [address], [place], [address], 11/19/2017 19:46:50 11/16/19 18 11/15/2017 magne sium, blood nitrite, urine negati ve Not Available [facility] [address] [facility] [address], [address], [place], [address], 11/19/2017 19:46:50 11/16/19 18 11/15/2017 magne sium, blood leukocyte esterase, urine negati ve Not Available [facility] [address] [facility] [address], [address], [place], [address], 11/19/2017 19:46:50 11/16/19 18 11/15/2017 magne sium, blood urobilinogen , urine <2.0 Not Available [facility] [address] [facility] [address], [address], [place], [address], 11/19/2017 19:46:50 11/16/19 18 11/15/2017 magne sium, blood WBC casts, urine <1 Not Available [facility] [address] [facility] [address], [address], [place], [address], 11/19/2017 19:46:50 11/16/19 18 11/15/2017 magne sium, blood red blood cells, urine 0 Not Available [facility] [address] [facility] [address], [address], [place], [address], 11/19/2017 19:46:50 11/16/19 18 11/15/2017 magne sium, blood epithelial cells, urine <1 Not Available [facility] [address] [facility] [address], [address], [place], [address], 11/19/2017 19:46:50 11/16/19 18 11/15/2017 magne sium, blood protein, urine, random 10.1 Not Available [facility] [address] [facility] [address], [address], [place], [address], 11/19/2017 19:46:50 11/16/19 18 11/15/2017 magne sium, blood creatinine, urine, random 48.7 Not Available [facility] [address] [facility] [address], [address], [place], [address], 11/19/2017 19:46:50 11/16/19 18 11/15/2017 magne sium, blood HGB 15.3 Not Available [facility] [address] [facility] [address], [address], [place], [address], 11/19/2017 19:46:50 11/16/19 18 11/15/2017 magne sium, blood HCT 44.1 Not Available [facility] [address] [facility] [address], [address], [place], [address], 11/19/2017 19:46:50 11/16/19 18 11/15/2017 magne sium, blood WBC 6.6 Not Available [facility] [address] [facility] [address], [address], [place], [address], 11/19/2017 19:46:50 11/16/19 18 11/15/2017 magne sium, blood plt 275 Not Available [facility] [address] [facility] [address], [address], [place], [address], 11/19/2017 19:46:50 11/16/19 18 11/15/2017 magne sium, blood sodium, serum 137 Not Available [facility] [address] [facility] [address], [address], [place], [address], 11/19/2017 19:46:50 11/16/19 18 11/15/2017 magne sium, blood potassium, seerum 4.0 Not Available [facility] [address] [facility] [address], [address], [place], [address], 11/19/2017 19:46:50 11/16/19 18 11/15/2017 magne sium, blood chloride, serum 96 Not Available [facility] [address] [facility] [address], [address], [place], [address], 11/19/2017 19:46:50 11/16/19 18 11/15/2017 magne sium, blood carbon dioxide 27 Not Available [facility] [address], [address], [place], [address], 11/19/2017 19:46:50 11/16/19 18 11/15/2017 magne sium, blood calcium, serum 9.5 Not Available [facility] [address] [facility] [address], [address], [place], [address], 11/19/2017 19:46:50 11/16/19 18 11/15/2017 magne sium, blood glucose, serum 92 Not Available [facility] [address] [facility] [address], [address], [place], [address], 11/19/2017 19:46:50 11/16/19 18 11/15/2017 magne sium, blood BUN 27 Not Available [facility] [address], [address], [place], [address], 11/19/2017 19:46:50 11/16/19 18 11/15/2017 magne sium, blood creatinine 1.63 Not Available [facility] [address] [facility] [address], [address], [place], [address], 11/19/2017 19:46:50 11/16/19 18 11/15/2017 magne sium, blood GFR 43 Not Available [facility] [address] [facility] [address], [place], [address], 11/19/2017 19:46:50 11/16/19 18 11/15/2017 magne sium, blood bilirubin, total 0.6 Not Available [facility] [address] [facility] [address], [place], [address], 11/19/2017 19:46:50 11/16/19 18 11/15/2017 magne sium, blood albumin, serum 4.5 Not Available [facility] [address] [facility] [address], [address], [place], [address], 11/19/2017 19:46:50 11/16/19 18 11/15/2017 magne sium, blood protein, total, serum 7.5 Not Available [facility] [address] [facility] [address], [address], [place], [address], 11/19/2017 19:46:50 11/16/19 18 11/15/2017 magne sium, blood magnesium 1.8 Not Available [facility] [address] [facility] [address], [place], [address], 11/19/2017 19:46:50 11/16/19 18 11/15/2017 magne sium, blood phosphorus 3.6 Not Available [facility] [address] [facility] [address], [address], [place], [address], 11/19/2017 19:46:50 11/16/19 18 11/15/2017 magne sium, blood uric acid 5.6 Not Available [facility] [address] [facility] [address], [place], [address], 11/19/2017 19:46:50 11/16/19 18 11/15/2017 CMP, serum or plasm a color, urine light, yellow Not Available [address], [place], [address], 11/19/2017 19:46:50 11/16/19 18 11/15/2017 CMP, serum or plasm a clarity, urine clear Not Available [address], Ranjan [address], [place], [address], 11/19/2017 19:46:50 11/16/19 18 11/15/2017 CMP, serum or plasm a pH, urine 6.0 Not Available [address], [address], [place], [address], 11/19/2017 19:46:50 11/16/19 18 11/15/2017 CMP, serum or plasm a specific gravity, urine 1.010 Not Available [address], [address]jan [address], [place], [address], 11/19/2017 19:46:50 11/16/19 18 11/15/2017 CMP, serum or plasm a protein, total, urine 30 Not Available [address], [address], [place], [address], 11/19/2017 19:46:50 11/16/19 18 11/15/2017 CMP, serum or plasm a glucose, urine negati ve Not Available [address], [address], [place], [address], 11/19/2017 19:46:50 11/16/19 18 11/15/2017 CMP, serum or plasm a ketones, urine negati ve Not Available [address], [address], [place], [address], 11/19/2017 19:46:50 11/16/19 18 11/15/2017 CMP, serum or plasm a bilirubin, urine negati ve Not Available [address], [address]jan [address], [place], [address], 11/19/2017 19:46:50 11/16/19 18 11/15/2017 CMP, serum or plasm a blood, urine negati ve Not Available [address], [address]jan [address], [place], [address], 11/19/2017 19:46:50 11/16/19 18 11/15/2017 CMP, serum or plasm a nitrite, urine negati ve Not Available [facility] [address] [place], [place] [address]y [address], [address]jan C, [place], [address], 11/19/2017 19:46:50 11/16/19 18 11/15/2017 CMP, serum or plasm a leukocyte esterase, urine negati ve Not Available [address], [address]jan [address], [place], [address], 11/19/2017 19:46:50 11/16/19 18 11/15/2017 CMP, serum or plasm a urobilinogen , urine <2.0 Not Available [address], [address], [place], [address], 11/19/2017 19:46:50 11/16/19 18 11/15/2017 CMP, serum or plasm a WBC casts, urine <1 Not Available [address], [address], [place], [address], 11/19/2017 19:46:50 11/16/19 18 11/15/2017 CMP, serum or plasm a red blood cells, urine 0 Not Available [facility] [address] [place], [place] [address]y [address], Rajnan [address], [place], [address], 11/19/2017 19:46:50 11/16/19 18 11/15/2017 CMP, serum or plasm a epithelial cells, urine <1 Not Available [facility] [address] [facility] [address], [address]jan [address], [place], [address], 11/19/2017 19:46:50 11/16/19 18 11/15/2017 CMP, serum or plasm a protein, urine, random 10.1 Not Available [address], [address], [place], [address], 11/19/2017 19:46:50 11/16/19 18 11/15/2017 CMP, serum or plasm a creatinine, urine, random 48.7 Not Available [facility] [address] [facility] [address], [address], [place], [address], 11/19/2017 19:46:50 11/16/19 18 11/15/2017 CMP, serum or plasm a HGB 15.3 Not Available [address], [address] [address], [place], [address], 11/19/2017 19:46:50 11/16/19 18 11/15/2017 CMP, serum or plasm a HCT 44.1 Not Available [address], [address]jan [address], [place], [address], 11/19/2017 19:46:50 11/16/19 18 11/15/2017 CMP, serum or plasm a WBC 6.6 Not Available [address], [address], [place], [address], 11/19/2017 19:46:50 11/16/19 18 11/15/2017 CMP, serum or plasm a plt 275 Not Available [facility] [address] [facility] [address], [address], [place], [address], 11/19/2017 19:46:50 11/16/19 18 11/15/2017 CMP, serum or plasm a sodium, serum 137 Not Available [facility] [address] [facility] [address], [address]jan [address], [place], [address], 11/19/2017 19:46:50 11/16/19 18 11/15/2017 CMP, serum or plasm a potassium, seerum 4.0 Not Available [facility] [address] [facility] [address], [address]jan [address], [place], [address], 11/19/2017 19:46:50 11/16/19 18 11/15/2017 CMP, serum or plasm a chloride, serum 96 Not Available [facility] [address] [facility] [address], [address], [place], [address], 11/19/2017 19:46:50 11/16/19 18 11/15/2017 CMP, serum or plasm a carbon dioxide 27 Not Available [facility] [address] [facility] [address], [address]jan [address], [place], [address], 11/19/2017 19:46:50 11/16/19 18 11/15/2017 CMP, serum or plasm a calcium, serum 9.5 Not Available [facility] [address], [address], [place], [address], 11/19/2017 19:46:50 11/16/19 18 11/15/2017 CMP, serum or plasm a glucose, serum 92 Not Available [facility] [address], [address], [place], [address], 11/19/2017 19:46:50 11/16/19 18 11/15/2017 CMP, serum or plasm a BUN 27 Not Available [facility] [address], [address], [place], [address], 11/19/2017 19:46:50 11/16/19 18 11/15/2017 CMP, serum or plasm a creatinine 1.63 Not Available [facility] [address] [facility] [address], [address], [place], [address], 11/19/2017 19:46:50 11/16/19 18 11/15/2017 CMP, serum or plasm a GFR 43 Not Available [facility] [address] [facility] [address], [address]jan [address], [place], [address], 11/19/2017 19:46:50 11/16/19 18 11/15/2017 CMP, serum or plasm a bilirubin, total 0.6 Not Available [facility] [address] [facility] [address], [address], [place], [address], 11/19/2017 19:46:50 11/16/19 18 11/15/2017 CMP, serum or plasm a albumin, serum 4.5 Not Available [facility] [address] [facility] [address], [address], [place], [address], 11/19/2017 19:46:50 11/16/19 18 11/15/2017 CMP, serum or plasm a protein, total, serum 7.5 Not Available [facility] [address] [facility] [address], [address], [place], [address], 11/19/2017 19:46:50 11/16/19 18 11/15/2017 CMP, serum or plasm a magnesium 1.8 Not Available [facility] [address] [facility] [address], [address], [place], [address], 11/19/2017 19:46:50 11/16/19 18 11/15/2017 CMP, serum or plasm a phosphorus 3.6 Not Available [facility] [address], [address], [place], [address], 11/19/2017 19:46:50 11/16/19 18 11/15/2017 CMP, serum or plasm a uric acid 5.6 Not Available [facility] [address] [facility] [address], [address], [place], [address], 11/19/2017 19:46:50 11/16/19 18 11/15/2017 CBC w/ auto diff color, urine light, yellow Not Available [facility] [address] [facility] [address], [address], [place], [address], 11/19/2017 19:46:50 11/16/19 18 11/15/2017 CBC w/ auto diff clarity, urine clear Not Available [facility] [address] [facility] [address], [address], [place], [address], 11/19/2017 19:46:50 11/16/19 18 11/15/2017 CBC w/ auto diff pH, urine 6.0 Not Available [facility] [address] [facility] [address], [address], [place], [address], 11/19/2017 19:46:50 11/16/19 18 11/15/2017 CBC w/ auto diff specific gravity, urine 1.010 Not Available [facility] [address] [facility] [address], [address], [place], [address], 11/19/2017 19:46:50 11/16/19 18 11/15/2017 CBC w/ auto diff protein, total, urine 30 Not Available [facility] [address] [facility] [address], [address], [place], [address], 11/19/2017 19:46:50 11/16/19 18 11/15/2017 CBC w/ auto diff glucose, urine negati ve Not Available [facility] [address] [facility] [address], [address], [place], [address], 11/19/2017 19:46:50 11/16/19 18 11/15/2017 CBC w/ auto diff ketones, urine negati ve Not Available [facility] [address] [facility] [address], [address], [place], [address], 11/19/2017 19:46:50 11/16/19 18 11/15/2017 CBC w/ auto diff bilirubin, urine negati ve Not Available [facility] [address] [facility] [address], [address], [place], [address], 11/19/2017 19:46:50 11/16/19 18 11/15/2017 CBC w/ auto diff blood, urine negati ve Not Available [facility] [address] [facility] [address], [address], [place], [address], 11/19/2017 19:46:50 11/16/19 18 11/15/2017 CBC w/ auto diff nitrite, urine negati ve Not Available [facility] [address] [facility] [address], [address], [place], [address], 11/19/2017 19:46:50 11/16/19 18 11/15/2017 CBC w/ auto diff leukocyte esterase, urine negati ve Not Available [facility] [address] [facility] [address], [address], [place], [address], 11/19/2017 19:46:50 11/16/19 18 11/15/2017 CBC w/ auto diff urobilinogen , urine <2.0 Not Available [facility] [address] [facility] [address] [address], [address], [place], [address], 11/19/2017 19:46:50 11/16/19 18 11/15/2017 CBC w/ auto diff WBC casts, urine <1 Not Available [facility] [address] [facility], [address], [place], [address], 11/19/2017 19:46:50 11/16/19 18 11/15/2017 CBC w/ auto diff red blood cells, urine 0 Not Available [facility] [address] [facility], [address], [place], [address], 11/19/2017 19:46:50 11/16/19 18 11/15/2017 CBC w/ auto diff epithelial cells, urine <1 Not Available [facility] [address] [facility] [address], [address], [place], [address], 11/19/2017 19:46:50 11/16/19 18 11/15/2017 CBC w/ auto diff protein, urine, random 10.1 Not Available [facility] [address] [facility] [address], [address], [place], [address], 11/19/2017 19:46:50 11/16/19 18 11/15/2017 CBC w/ auto diff creatinine, urine, random 48.7 Not Available [facility] [address] [facility] [address], [address], [place], [address], 11/19/2017 19:46:50 11/16/19 18 11/15/2017 CBC w/ auto diff HGB 15.3 Not Available [facility] [address] [facility] [address], [address], [place], [address], 11/19/2017 19:46:50 11/16/19 18 11/15/2017 CBC w/ auto diff HCT 44.1 Not Available [facility] [address] [facility] [address], [address], [place], [address], 11/19/2017 19:46:50 11/16/19 18 11/15/2017 CBC w/ auto diff WBC 6.6 Not Available [facility] [address] [facility] [address], [address], [place], [address], 11/19/2017 19:46:50 11/16/19 18 11/15/2017 CBC w/ auto diff plt 275 Not Available [facility] [address] [facility] [address], [address], [place], [address], 11/19/2017 19:46:50 11/16/19 18 11/15/2017 CBC w/ auto diff sodium, serum 137 Not Available [facility] [address], [address], [place], [address], 11/19/2017 19:46:50 11/16/19 18 11/15/2017 CBC w/ auto diff potassium, seerum 4.0 Not Available [facility] [address], [address], [place], [address], 11/19/2017 19:46:50 11/16/19 18 11/15/2017 CBC w/ auto diff chloride, serum 96 Not Available [facility] [address], [address], [place], [address], 11/19/2017 19:46:50 11/16/19 18 11/15/2017 CBC w/ auto diff carbon dioxide 27 Not Available [facility] [address], [address], [place], [address], 11/19/2017 19:46:50 11/16/19 18 11/15/2017 CBC w/ auto diff calcium, serum 9.5 Not Available [facility] [address], [address], [place], [address], 11/19/2017 19:46:50 11/16/19 18 11/15/2017 CBC w/ auto diff glucose, serum 92 Not Available [facility] [address], [address], [place], [address], 11/19/2017 19:46:50 11/16/19 18 11/15/2017 CBC w/ auto diff BUN 27 Not Available [facility] [address], [address], [place], [address], 11/19/2017 19:46:50 11/16/19 18 11/15/2017 CBC w/ auto diff creatinine 1.63 Not Available [facility] [address], [address], [place], [address], 11/19/2017 19:46:50 11/16/19 18 11/15/2017 CBC w/ auto diff GFR 43 Not Available [facility] [address] [facility] [address], [address], [place], [address], 11/19/2017 19:46:50 11/16/19 18 11/15/2017 CBC w/ auto diff bilirubin, total 0.6 Not Available [facility] [address] [facility] [address], [address], [place], [address], 11/19/2017 19:46:50 11/16/19 18 11/15/2017 CBC w/ auto diff albumin, serum 4.5 Not Available [address], [address], [place], [address], 11/19/2017 19:46:50 11/16/19 18 11/15/2017 CBC w/ auto diff protein, total, serum 7.5 Not Available [facility] [address] [facility] [address], [address], [place], [address], 11/19/2017 19:46:50 11/16/19 18 11/15/2017 CBC w/ auto diff magnesium 1.8 Not Available [facility] [address] [facility] [address], [address], [place], [address], 11/19/2017 19:46:50 11/16/19 18 11/15/2017 CBC w/ auto diff phosphorus 3.6 Not Available [facility] [address], [address], [place], [address], 11/19/2017 19:46:50 11/16/19 18 11/15/2017 CBC w/ auto diff uric acid 5.6 Not Available [facility] [address], [address], [place], [address], 11/19/2017 19:46:50 11/16/19 18 11/15/2017 prote in:cr eatin ine ratio , urine color, urine light, yellow Not Available [facility] [address] [facility] [address], [address], [place], [address], 11/19/2017 19:46:50 11/16/19 18 11/15/2017 prote in:cr eatin ine ratio , urine clarity, urine clear Not Available [facility] [address], [address], [place], [address], 11/19/2017 19:46:50 11/16/19 18 11/15/2017 prote in:cr eatin ine ratio , urine pH, urine 6.0 Not Available [facility] [address] [facility] [address], [address], [place], [address], 11/19/2017 19:46:50 11/16/19 18 11/15/2017 prote in:cr eatin ine ratio , urine specific gravity, urine 1.010 Not Available [facility] [address] [facility] [address], [address], [place], [address], 11/19/2017 19:46:50 11/16/19 18 11/15/2017 prote in:cr eatin ine ratio , urine protein, total, urine 30 Not Available [facility] [address] [facility], [address], [place], [address], 11/19/2017 19:46:50 11/16/19 18 11/15/2017 prote in:cr eatin ine ratio , urine glucose, urine negati ve Not Available [facility] [address] [facility], [address], [place], [address], 11/19/2017 19:46:50 11/16/19 18 11/15/2017 prote in:cr eatin ine ratio , urine ketones, urine negati ve Not Available [facility] [address] [facility] [address], [address], [place], [address], 11/19/2017 19:46:50 11/16/19 18 11/15/2017 prote in:cr eatin ine ratio , urine bilirubin, urine negati ve Not Available [facility] [address] [facility] [address], [address], [place], [address], 11/19/2017 19:46:50 11/16/19 18 11/15/2017 prote in:cr eatin ine ratio , urine blood, urine negati ve Not Available [facility] [address] [facility], [address], [place], [address], 11/19/2017 19:46:50 11/16/19 18 11/15/2017 prote in:cr eatin ine ratio , urine nitrite, urine negati ve Not Available [facility] [address] [facility] [address], [address], [place], [address], 11/19/2017 19:46:50 11/16/19 18 11/15/2017 prote in:cr eatin ine ratio , urine leukocyte esterase, urine negati ve Not Available [facility] [address] [facility] [address], [address], [place], [address], 11/19/2017 19:46:50 11/16/19 18 11/15/2017 prote in:cr eatin ine ratio , urine urobilinogen , urine <2.0 Not Available [facility] [address] [facility], [address], [place], [address], 11/19/2017 19:46:50 11/16/19 18 11/15/2017 prote in:cr eatin ine ratio , urine WBC casts, urine <1 Not Available [facility] [address] [facility], [address], [place], [address], 11/19/2017 19:46:50 11/16/19 18 11/15/2017 prote in:cr eatin ine ratio , urine red blood cells, urine 0 Not Available [facility] [address], [address], [place], [address], 11/19/2017 19:46:50 11/16/19 18 11/15/2017 prote in:cr eatin ine ratio , urine epithelial cells, urine <1 Not Available [facility] [address] [facility] [address], [address], [place], [address], 11/19/2017 19:46:50 11/16/19 18 11/15/2017 prote in:cr eatin ine ratio , urine protein, urine, random 10.1 Not Available [facility] [address] [facility] [address], [address], [place], [address], 11/19/2017 19:46:50 11/16/19 18 11/15/2017 prote in:cr eatin ine ratio , urine creatinine, urine, random 48.7 Not Available [facility] [address] [facility] [address], [address], [place], [address], 11/19/2017 19:46:50 11/16/19 18 11/15/2017 prote in:cr eatin ine ratio , urine HGB 15.3 Not Available [facility] [address] [facility] [address], [address], [place], [address], 11/19/2017 19:46:50 11/16/19 18 11/15/2017 prote in:cr eatin ine ratio , urine HCT 44.1 Not Available [facility] [address], [address], [place], [address], 11/19/2017 19:46:50 11/16/19 18 11/15/2017 prote in:cr eatin ine ratio , urine WBC 6.6 Not Available [facility] [address] [facility] [address], [address], [place], [address], 11/19/2017 19:46:50 11/16/19 18 11/15/2017 prote in:cr eatin ine ratio , urine plt 275 Not Available [facility] [address] [facility] [address], [address], [place], [address], 11/19/2017 19:46:50 11/16/19 18 11/15/2017 prote in:cr eatin ine ratio , urine sodium, serum 137 Not Available [facility] [address] [facility] [address], [address], [place], [address], 11/19/2017 19:46:50 11/16/19 18 11/15/2017 prote in:cr eatin ine ratio , urine potassium, seerum 4.0 Not Available [facility] [address] [place] [address] [address], [address], [place], [address], 11/19/2017 19:46:50 11/16/19 18 11/15/2017 prote in:cr eatin ine ratio , urine chloride, serum 96 Not Available [facility] [address], [address], [place], [address], 11/19/2017 19:46:50 11/16/19 18 11/15/2017 prote in:cr eatin ine ratio , urine carbon dioxide 27 Not Available [facility] [address] [place] [address] [address], [address], [place], [address], 11/19/2017 19:46:50 11/16/19 18 11/15/2017 prote in:cr eatin ine ratio , urine calcium, serum 9.5 Not Available [facility] [address] [place] [address] [address], [address], [place], [address], 11/19/2017 19:46:50 11/16/19 18 11/15/2017 prote in:cr eatin ine ratio , urine glucose, serum 92 Not Available [facility] [address] [place] [address] [address], [address], [place], [address], 11/19/2017 19:46:50 11/16/19 18 11/15/2017 prote in:cr eatin ine ratio , urine BUN 27 Not Available [facility] [address] [place] [address] [address], [address], [place], [address], 11/19/2017 19:46:50 11/16/19 18 11/15/2017 prote in:cr eatin ine ratio , urine creatinine 1.63 Not Available [facility] [address] [facility] [address], [address], [place], [address], 11/19/2017 19:46:50 11/16/19 18 11/15/2017 prote in:cr eatin ine ratio , urine GFR 43 Not Available [address], [address], [place], [address], 11/19/2017 19:46:50 11/16/19 18 11/15/2017 prote in:cr eatin ine ratio , urine bilirubin, total 0.6 Not Available [facility] [address] [facility] [address], [address], [place], [address], 11/19/2017 19:46:50 11/16/19 18 11/15/2017 prote in:cr eatin ine ratio , urine albumin, serum 4.5 Not Available [facility] [address] [place] [address] [address], [address], [place], [address], 11/19/2017 19:46:50 11/16/19 18 11/15/2017 prote in:cr eatin ine ratio , urine protein, total, serum 7.5 Not Available [facility] [address] [facility] [address], [address], [place], [address], 11/19/2017 19:46:50 11/16/19 18 11/15/2017 prote in:cr eatin ine ratio , urine magnesium 1.8 Not Available [facility] [address] [facility] [address] [address], [address], [place], [address], 11/19/2017 19:46:50 11/16/19 18 11/15/2017 prote in:cr eatin ine ratio , urine phosphorus 3.6 Not Available [facility] [address], [address], [place], [address], 11/19/2017 19:46:50 11/16/19 18 11/15/2017 prote in:cr eatin ine ratio , urine uric acid 5.6 Not Available [facility] [address], [address], [place], [address], 11/19/2017 19:46:50 05/07/20 18 05/07/2018 lipid panel [...] , urine glucose 96 normal Not Available [facility] [address] [facility] [address], [address], [place], [address], 09/17/2018 17:00:34 08/29/20 18 08/29/2018 prote in:cr eatin ine ratio , urine BUN 25 high Not Available [facility] [address] [facility] [address], [address], [place], [address], 09/17/2018 17:00:34 08/29/20 18 08/29/2018 prote in:cr eatin ine ratio , urine creatinine 1.51 high Not Available [facility] [address] [facility] [address], [address], [place], [address], 09/17/2018 17:00:34 08/29/20 18 08/29/2018 prote in:cr eatin ine ratio , urine sodium, serum 139 normal Not Available [facility] [address] [facility] [address], [address], [place], [address], 09/17/2018 17:00:34 08/29/20 18 08/29/2018 prote in:cr eatin ine ratio , urine potassium, serum 3.9 normal Not Available [facility] [address] [facility] [address], [address], [place], [address], 09/17/2018 17:00:34 08/29/20 18 08/29/2018 prote in:cr eatin ine ratio , urine chloride, serum 102 normal Not Available [facility] [address] [facility] [address], [address], [place], [address], 09/17/2018 17:00:34 08/29/20 18 08/29/2018 prote in:cr eatin ine ratio , urine carbon dioxide 28 normal Not Available [facility] [address] [facility] [address], [address], [place], [address], 09/17/2018 17:00:34 08/29/20 18 08/29/2018 prote in:cr eatin ine ratio , urine album, serum 4.3 normal Not Available [facility] [address] [place] [address] [address], [address], [place], [address], 09/17/2018 17:00:34 08/29/20 18 08/29/2018 prote in:cr eatin ine ratio , urine calcium, serum 9.2 normal Not Available [facility] [address] [place], [place] [address], [address], [place], [address], 09/17/2018 17:00:34 08/29/20 18 08/29/2018 prote in:cr eatin ine ratio , urine alkaline phosphatase 44 normal Not Available [facility] [address] [facility] [address], [address], [place], [address], 09/17/2018 17:00:34 08/29/20 18 08/29/2018 prote in:cr eatin ine ratio , urine bilirubin, total 0.4 normal Not Available [facility] [address] [place], [place] [address], [address], [place], [address], 09/17/2018 17:00:34 08/29/20 18 08/29/2018 prote in:cr eatin ine ratio , urine protein, total, serum 70 normal Not Available [facility] [address] [place], [place] [address], [address], [place], [address], 09/17/2018 17:00:34 08/29/20 18 08/29/2018 prote in:cr eatin ine ratio , urine eGFR 47 low Not Available [facility] [address] [place], [place] [address], [address] C, [place], [address], 09/17/2018 17:00:34 08/29/20 18 08/29/2018 prote in:cr eatin ine ratio , urine creatinine, urine 23.0 normal Not Available [facility] [address] [place], [place] [address]za y [address], Ranjan C, [place], [address], 09/17/2018 17:00:34 08/29/20 18 08/29/2018 prote in:cr eatin ine ratio , urine protein, total, urine, random 9.8 normal Not Available [facility] [address] [facility] [address], [address], [place], [address], 09/17/2018 17:00:34 08/29/20 18 08/29/2018 urina lysis compl ete, refle x cultu re WBC count 6.3 normal Not Available [facility] [address] [facility] [address], [address], [place], [address], 09/17/2018 16:56:21 08/29/20 18 08/29/2018 urina lysis compl ete, refle x cultu re HGB 15 normal Not Available [facility] [address], [address], [place], [address], 09/17/2018 16:56:21 08/29/20 18 08/29/2018 urina lysis compl ete, refle x cultu re HCT 44.2 normal Not Available [facility] [address] [facility] [address], [address], [place], [address], 09/17/2018 16:56:21 08/29/20 18 08/29/2018 urina lysis compl ete, refle x cultu re platelet count 254 normal Not Available [facility] [address], [address], [place], [address], 09/17/2018 16:56:21 08/29/20 18 08/29/2018 CMP, serum or plasm a glucose 96 normal Not Available [facility] [address] [facility] [address], [address], [place], [address], 08/29/2018 18:28:02 08/29/20 18 08/29/2018 CMP, serum or plasm a BUN 25 high Not Available [facility] [address] [facility] [address], [address], [place], [address], 08/29/2018 18:28:02 08/29/20 18 08/29/2018 CMP, serum or plasm a creatinine 1.51 high Not Available [facility] [address], [address], [place], [address], 08/29/2018 18:28:02 08/29/20 18 08/29/2018 CMP, serum or plasm a sodium, serum 139 normal Not Available [facility] [address], [address], [place], [address], 08/29/2018 18:28:02 08/29/20 18 08/29/2018 CMP, serum or plasm a potassium, serum 3.9 normal Not Available [facility] [address], [address], [place], [address], 08/29/2018 18:28:02 08/29/20 18 08/29/2018 CMP, serum or plasm a chloride, serum 102 normal Not Available [facility] [address], [address], [place], [address], 08/29/2018 18:28:02 08/29/20 18 08/29/2018 CMP, serum or plasm a carbon dioxide 28 normal Not Available [facility] [address], [address], [place], [address], 08/29/2018 18:28:02 08/29/20 18 08/29/2018 CMP, serum or plasm a album, serum 4.3 normal Not Available [facility] [address], [address], [place], [address], 08/29/2018 18:28:02 08/29/20 18 08/29/2018 CMP, serum or plasm a calcium, serum 9.2 normal Not Available [facility] [address], [address], [place], [address], 08/29/2018 18:28:02 08/29/20 18 08/29/2018 CMP, serum or plasm a alkaline phosphatase 44 normal Not Available [facility] [address] [place] [address], [address]jan [address], [place], [address], 08/29/2018 18:28:02 08/29/20 18 08/29/2018 CMP, serum or plasm a bilirubin, total 0.4 normal Not Available [facility] [address] [facility] [address], [address], [place], [address], 08/29/2018 18:28:02 08/29/20 18 08/29/2018 CMP, serum or plasm a protein, total, serum 70 normal Not Available [address], [address], [place], [address], 08/29/2018 18:28:02 08/29/20 18 08/29/2018 CMP, serum or plasm a eGFR 47 low Not Available [facility] [address], [address], [place], [address], 08/29/2018 18:28:02 08/29/20 18 08/29/2018 CMP, serum or plasm a creatinine, urine 23.0 normal Not Available [facility] [address], [address], [place], [address], 08/29/2018 18:28:02 08/29/20 18 08/29/2018 CMP, serum or plasm a protein, total, urine, random 9.8 normal Not Available [facility] [address], [address], [place], [address], 08/29/2018 18:28:02 08/29/20 18 08/29/2018 CBC w/ auto diff WBC count 6.3 normal Not Available [facility] [address] [facility] [address], [address], [place], [address], 08/29/2018 15:25:44 08/29/20 18 08/29/2018 CBC w/ auto diff HGB 15 normal Not Available [facility] [address] [facility] [address], [address], [place], [address], 08/29/2018 15:25:44 08/29/20 18 08/29/2018 CBC w/ auto diff HCT 44.2 normal Not Available [facility] [address] [facility] [address], [address], [place], [address], 08/29/2018 15:25:44 08/29/20 18 08/29/2018 CBC w/ auto diff platelet count 254 normal Not Available [facility] [address] [facility] [address], [address], [place], [address], 08/29/2018 15:25:44 02/11/20 19 02/10/2019 lipid panel [...] , serum glucose 96 normal Not Available [facility] [address] [facility] [address], [address], [place], [address], 03/04/2019 18:56:10 03/03/20 19 03/03/2019 renal funct ion panel , serum BUN 26 high Not Available [facility] [address] [facility] [address], [address], [place], [address], 03/04/2019 18:56:10 03/03/20 19 03/03/2019 renal funct ion panel , serum creatinine 1.61 normal Not Available [facility] [address] [facility] [address], [address], [place], [address], 03/04/2019 18:56:10 03/03/20 19 03/03/2019 renal funct ion panel , serum sodium, serum 139 normal Not Available [facility] [address] [facility] [address], [address], [place], [address], 03/04/2019 18:56:10 03/03/20 19 03/03/2019 renal funct ion panel , serum potassium, serum 3.8 normal Not Available [facility] [address] [facility] [address], [address], [place], [address], 03/04/2019 18:56:10 03/03/20 19 03/03/2019 renal funct ion panel , serum chloride, serum 104 normal Not Available [facility] [address], [address], [place], [address], 03/04/2019 18:56:10 03/03/20 19 03/03/2019 renal funct ion panel , serum carbon dioxide 24 normal Not Available [facility] [address], [address], [place], [address], 03/04/2019 18:56:10 03/03/20 19 03/03/2019 renal funct ion panel , serum calcium, serum 9.1 normal normal Not Available [facility] [address], [address], [place], [address], 03/04/2019 18:56:10 03/03/20 19 03/03/2019 renal funct ion panel , serum eGFR 44 low Not Available [facility] [address], [address], [place], [address], 03/04/2019 18:56:10 03/04/20 19 03/04/2019 prote in:cr eatin ine ratio , urine glucose 96 normal Not Available [facility] [address], [address], [place], [address], 03/04/2019 08:17:55 03/04/20 19 03/04/2019 prote in:cr eatin ine ratio , urine BUN 26 high Not Available [facility] [address], [address], [place], [address], 03/04/2019 08:17:55 03/04/20 19 03/04/2019 prote in:cr eatin ine ratio , urine creatinine 1.61 normal Not Available [facility] [address], [address], [place], [address], 03/04/2019 08:17:55 03/04/20 19 03/04/2019 prote in:cr eatin ine ratio , urine sodium, serum 139 normal Not Available [facility] [address] [facility] [address], [address], [place], [address], 03/04/2019 08:17:55 03/04/20 19 03/04/2019 prote in:cr eatin ine ratio , urine potassium, serum 3.8 normal Not Available [facility] [address] [facility] [address], [address], [place], [address], 03/04/2019 08:17:55 03/04/20 19 03/04/2019 prote in:cr eatin ine ratio , urine chloride, serum 104 normal Not Available [facility] [address] [facility] [address], [address], [place], [address], 03/04/2019 08:17:55 03/04/20 19 03/04/2019 prote in:cr eatin ine ratio , urine carbon dioxide 24 normal Not Available [facility] [address] [facility] [address], [address], [place], [address], 03/04/2019 08:17:55 03/04/20 19 03/04/2019 prote in:cr eatin ine ratio , urine calcium, serum 9.1 normal normal Not Available [facility] [address] [facility] [address], [address], [place], [address], 03/04/2019 08:17:55 03/04/20 19 03/04/2019 prote in:cr eatin ine ratio , urine eGFR 44 low Not Available [facility] [address] [facility] [address], [address], [place], [address], 03/04/2019 08:17:55 01/20/20 20 01/20/2020 CMP, serum [...] plasm a HGB 14.5 normal Not Available [facility] [address], [address], [place], [address], 11/15/2020 13:57:47 10/24/19 21 10/24/2020 CMP, serum or plasm a HCT 43.1 normal Not Available [facility] [address] [facility] [address], [address], [place], [address], 11/15/2020 13:57:47 10/24/19 21 10/24/2020 CMP, serum or plasm a platelet count 242 normal Not Available [facility] [address], [address], [place], [address], 11/15/2020 13:57:47 10/24/19 21 10/24/2020 CMP, serum or plasm a WBC count 4.9 normal Not Available [facility] [address], [address], [place], [address], 11/15/2020 13:57:47 10/24/19 21 10/24/2020 CMP, serum or plasm a glucose 103 normal Not Available [facility] [address] [facility] [address], [address], [place], [address], 11/15/2020 13:57:47 10/24/19 21 10/24/2020 CMP, serum or plasm a BUN 24 high Not Available [facility] [address], [address], [place], [address], 11/15/2020 13:57:47 10/24/19 21 10/24/2020 CMP, serum or plasm a creatinine 1.36 high Not Available [facility] [address], [address], [place], [address], 11/15/2020 13:57:47 10/24/19 21 10/24/2020 CMP, serum or plasm a sodium, serum 136 normal Not Available [facility] [address], [address], [place], [address], 11/15/2020 13:57:47 10/24/19 21 10/24/2020 CMP, serum or plasm a potassium, serum 4.2 normal Not Available [facility] [address], [address], [place], [address], 11/15/2020 13:57:47 10/24/19 21 10/24/2020 CMP, serum or plasm a chloride, serum 102 normal Not Available [facility] [address] [facility] [address], [address], [place], [address], 11/15/2020 13:57:47 10/24/19 21 10/24/2020 CMP, serum or plasm a carbon dixoide 27 normal Not Available [facility] [address] [facility] [address], [address], [place], [address], 11/15/2020 13:57:47 10/24/19 21 10/24/2020 CMP, serum or plasm a album, serum 4.3 normal Not Available [facility] [address] [facility] [address], [address], [place], [address], 11/15/2020 13:57:47 10/24/19 21 10/24/2020 CMP, serum or plasm a calcium, serum 9.5 normal Not Available [facility] [address] [facility] [address], [address], [place], [address], 11/15/2020 13:57:47 10/24/19 21 10/24/2020 CMP, serum or plasm a eGFR 53 low Not Available [facility] [address] [facility] [address], [address], [place], [address], 11/15/2020 13:57:47 10/24/19 21 10/24/2020 CMP, serum or plasm a protein, total, serum 6.7 normal Not Available [facility] [address] [facility] [address], [address], [place], [address], 11/15/2020 13:57:47 10/24/19 21 10/24/2020 CBC w/ auto diff HGB 14.5 normal Not Available [facility] [address] [facility] [address], [address], [place], [address], 11/02/2020 12:21:14 10/24/19 21 10/24/2020 CBC w/ auto diff HCT 43.1 normal Not Available [facility] [address] [facility] [address], [address], [place], [address], 11/02/2020 12:21:14 10/24/19 21 10/24/2020 CBC w/ auto diff platelet count 242 normal Not Available [facility] [address] [facility] [address], [address], [place], [address], 11/02/2020 12:21:14 10/24/19 21 10/24/2020 CBC w/ auto diff WBC count 4.9 normal Not Available [facility] [address] [facility] [address], [address], [place], [address], 11/02/2020 12:21:14 10/24/19 21 10/24/2020 CBC w/ auto diff glucose 103 normal Not Available [facility] [address] [facility] [address], [address], [place], [address], 11/02/2020 12:21:14 10/24/19 21 10/24/2020 CBC w/ auto diff BUN 24 high Not Available [facility] [address] [facility] [address], [address], [place], [address], 11/02/2020 12:21:14 10/24/19 21 10/24/2020 CBC w/ auto diff creatinine 1.36 high Not Available [facility] [address] [facility] [address], [address], [place], [address], 11/02/2020 12:21:14 10/24/19 21 10/24/2020 CBC w/ auto diff sodium, serum 136 normal Not Available [facility] [address] [facility] [address], [address], [place], [address], 11/02/2020 12:21:14 10/24/19 21 10/24/2020 CBC w/ auto diff potassium, serum 4.2 normal Not Available [facility] [address], [address], [place], [address], 11/02/2020 12:21:14 10/24/19 21 10/24/2020 CBC w/ auto diff chloride, serum 102 normal Not Available [facility] [address] [facility] [address], [address], [place], [address], 11/02/2020 12:21:14 10/24/19 21 10/24/2020 CBC w/ auto diff carbon dixoide 27 normal Not Available [facility] [address] [facility] [address], [address], [place], [address], 11/02/2020 12:21:14 10/24/19 21 10/24/2020 CBC w/ auto diff album, serum 4.3 normal Not Available [facility] [address] [facility] [address], [address], [place], [address], 11/02/2020 12:21:14 10/24/19 21 10/24/2020 CBC w/ auto diff calcium, serum 9.5 normal Not Available [facility] [address], [address], [place], [address], 11/02/2020 12:21:14 10/24/19 21 10/24/2020 CBC w/ auto diff eGFR 53 low Not Available [facility] [address], [address], [place], [address], 11/02/2020 12:21:14 10/24/19 21 10/24/2020 CBC w/ auto diff protein, total, serum 6.7 normal Not Available [facility] [address], [address], [place], [address], 11/02/2020 12:21:14 05/24/20 17 05/24/2017 , janae Bergeron observ ation record ed. [email or web address] Not Available 2016 16:31:59 Result Notes None recorded. Problems Name Problem SNOMED Code Status Onset Date Resolution Date Notes Provider Name and Address Organization Details Recorded Time Chronic kidney disease stage 3 966951693 Active 2013 Not Available [facility] 5 13:00:54 Benign hypertensive renal disease 623094 Active 2013 Not Available [facility] 5 13:00:54 Hyperlipidemi a 82027558 Active 2013 Not Available [facility] 5 13:00:54 Essential hypertension 41454990 Active 2016 Roz Nelson [employer], [facility] 7 17:03:46 Total nephrectomy Active 2016 Roz Will [facility], [facility] 7 17:03:47 Problem Notes None recorded. Procedures Surgical History Date Name Laterality Status Provider Name and Address Organization Details Recorded Time 6 Other completed [facility] 08/13/2016 14:20:40 6 Shoulder joint surgery completed [facility], [facility] 08/13/2016 14:21:35 2 Nephrectomy completed [facility], [facility] 08/13/2016 14:20:55 Imaging Results None recorded. [...] in Arterial blood by Pulse oximetry Systolic And Diastolic Provider Name and Address Organization Details Last Updated DateTime 9 167.64 cm 22 kg/m2 95216.5 6 g 60 /min 97 % 97 % 122/90 mm[Hg] An Ramachandran lynne [facility], [facility] 9 12:17:09 Date Recorded Body height Body mass index (BMI) Body weight Heart rate Systolic And Diastolic Provider Name and Address Organization Details Last Updated DateTime 11/18/2017 167.64 cm 21.6 kg/m2 03683.38 g 55 /min 130/82 mm[Hg] [facility] 11/18/2017 15:34:33 Date Recorded Body height Provider Name an d Address Organization Details Last Updated DateTime 02/04/2020 167.64 cm An Ramachandrano [facility], [facility] 02/04/2020 13:00:12 Date Recorded Body height Body mass index (BMI) Body weight Heart rate Oxygen saturation Oxygen saturation in Arterial blood by Pulse oximetry Systolic And Diastolic Provider Name and Address Organization Details Last Updated DateTime 9 167.64 cm 21.5 kg/m2 32013.7 9 g 95 /min 98 % 98 % 124/60 mm[Hg] Leatha Buckley [facility], [facility] 9 12:50:35 Date Recorded Body height Body mass index (BMI) Body weight Heart rate Systolic And Diastolic Provider Name and Address Organization Details Last Updated DateTime 05/29/2017 167.64 cm 21 kg/m2 05504.01 g 66 /min 120/80 mm[Hg] Peggy Ant [facility], [facility] 05/29/2017 16:13:15 Social History Question Answer Notes LastModified by Organizat ion Details LastModified Time Tobacco Smoking Status Never Smoker Halie marcelo [facility], [facility] 08/13/2016 14:19:58 Do You Have An [...] SNOMED-CT Code Diagnosis ICD10 Code Diagnosis Note [id number] [facility] [address] [place] [address] 03/26/2014 00:00:00 [id number] [facility] [address] [place] [address] 05/24/2014 00:00:00 [id number] MD [facility] [address] [place] [address] 08/13/2016 13:38:15 08/13/2016 14:40:33 Chronic kidney disease stage 3 639662384 N18.3 G3a/A1, without proteinuri a in associatio n with solitary R kidney/CAU and HTN.Cr stable. Essential hypertension 78120651 I10 controlled .recommend ACEI/ARB. Total nephrectomy 298541 003 Z90.5 s/p L nephrectom y for CAU at age 7. [id number] MD [facility] [address] [place] [address] 02/18/2017 16:27:32 02/18/2017 17:20:33 Chronic kidney disease stage 3 979539219 N18.3 G3a/A1, without proteinuri a in associatio n with solitary R kidney/CAU and HTN. Essential hypertension 08882297 I10 controlled .recommend ACEI/ARB. Total nephrectomy 810635 003 Z90.5 s/p L nephrectom y for CAU at age 7. [id number] MD [facility] [address] [place] [address] 05/29/2017 15:45:50 05/29/2017 16:39:59 Chronic kidney disease stage 3 562048158 N18.3 G3a/A1, without proteinuri a in associatio n with solitary R kidney/CAU and HTN. Essential hypertension 79730075 I10 controlled .recommend ACEI/ARB. Total nephrectomy 164872 003 Z90.5 s/p L nephrectom y for CAU at age 7. [id number] MD [facility] [address] [place] [address] 11/18/2017 15:20:10 11/18/2017 15:59:01 Chronic kidney disease stage 3 434410426 N18.3 G3a/A1.wit hout proteinuri a in associatio n with solitary R kidney/CAU and HTN. Essential hypertension 06555857 I10 controlled .stop Amlodipine .change to losartan 50mg qhs. Total nephrectomy 574955 003 Z90.5 s/p L nephrectom y for CAU at age 7. [id number] MD [facility] [address] [place] [address] 09/04/2018 11:50:46 09/04/2018 12:38:35 Chronic kidney disease stage 3 973724273 N18.3 G3a/A1.wit hout proteinuri a in associatio n with solitary R kidney/CAU and HTN.GFR stable Essential hypertension 81533433 I10 controlled .on Norvasc 2.5 mg .Stopped Losartan on his own 6 months ago .Daily BP checks Total nephrectomy 666859 003 Z90.5 s/p L nephrectom y for CAU at age 7. [id number] MD [facility]han [facility] [address] [place] [facility] [place] [place] [address] 03/12/2019 12:41:48 03/12/2019 13:20:29 Chronic kidney disease stage 3 954842588 N18.3 G3a/A1.wit hout proteinuri a in associatio n with solitary R kidney/CAU and HTN.GFR stable is 44 today. Discussed with patient control his factors including avoiding NSAIDs and good control of hypertensi on. Hydration. Essential hypertension 90078458 I10 controlled .on Norvasc 2.5 mg .Stopped Losartan on his own 6 months ago .Daily BP checks Total nephrectomy 950662 003 Z90.5 s/p L nephrectom y for CAU at age 7. [id number] MD [facility] [address] [place] [facility] [place] [address] 02/04/2020 12:58:53 02/04/2020 14:35:10 Chronic kidney disease stage 3 724072057 N18.3 G3a/A1.wit hout proteinuri a in associatio n with solitary R kidney/CAU and HTN.GFR stable is 44 today. Discussed with patient control his factors including avoiding NSAIDs and good control of hypertensi on. Hydration. Discussed with her that he may have enlarged prostate. He will follow-up with urology. Essential hypertension 27428587 I10 controlled .on Norvasc 2.5 mg .Stopped Losartan on his own 6 months ago .Daily BP checks Total nephrectomy 590641 003 Z90.5 s/p L nephrectom y for CAU at age 7. Health Concerns Section Related Observation LastModified by Organization Lex[employer] ls LastModified Time None Recorded Concern Status LastModified by Organization Details LastModified Time None Recorded Advance Directives Directive N: Payers Insurance Date Sequence Insurance Name Policy Number Policy Bruno Covered Member ID Bruno Member ID Guarantor Name 08/06/2016 1 *SELF PAY* cirilo Ballesteros 04/10/2019 SLIDING FEE SCHEDULE - DISCOUNT Jerry Ballesteros 02/06/2021 1 [place] Jerry Ballesteros [id number] Jerry Ballesteros Notes Date Note Type [...] doing well. Josep Elliott MD [address], [place], [address], [facility], [facility] 05/29/2017 16:36:36 11/18/2017 text/html 62 year [...] Elliott MD [address], [place], [address], [facility], [facility] 11/18/2017 15:55:32 09/04/2018 text/html 62 year [...] no other complaints Nerissa Brooks MD [address], [place], [address], [facility], [facility] 09/04/2018 12:42:27 03/12/2019 text/html 62 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
--- OUTSIDE RECORDS SUMMARY | 2025-03-05 15:31 | XMS_ITS | Data Portability ---
Author Organization [place] [facility] [place] [facility], [facility] Address [address] [facility] [address] [place] [address] Care Team Providers Care Schedule Analyst Name Role Phone MARINE HAAS Primary [...] 023 [email or web address] [facility], [address], [place], [address], 15:08:08 urinalysis , dipstick 2022 023 [email or web address] [facility], [address], [place], [address], 12:14:01 Referral None recorded. Procedures None recorded. Surgeries None recorded. Imaging None recorded. Medication Orders None recorded. Patient TargetsNo targets recorded. Patient InstructionsNo instructions recorded. Reason for Referral None Reported. Results Created Date Observation Date Name Description Value Unit Range Abnormal Flag Note LastModifiedBy Organization Detail LastModifiedTime 09/27/1909/27/2022 urina lysis , dipst ick Sp [place]-Stat us 1.005 Not Available [facility] [address], [place], [address], 09/27/2022 12:12:58 09/27/1909/27/2022 urina lysis , dipst ick pH-Status 6.0 Not Available [facility] [address], [place], [address], 09/27/2022 12:12:58 09/27/19 23 09/27/2022 urina lysis , dipst ick Nitrates-Sta tus negati ve Not Available [facility] [address], [place], [address], 09/27/2022 12:12:58 09/27/1909/27/2022 urina lysis , dipst ick Blood-Status Trace Not Available [facility] [address], [place], [address], 09/27/2022 12:12:58 09/27/1909/27/2022 urina lysis , dipst ick Leuko-Status Negati ve Not Available [facility] [address], [place], [address], 09/27/2022 12:12:58 02/28/20 23 02/27/2023 urina lysis , dipst ick Color-Status Yellow Not Available [facility] [address], [place], [address], 02/27/2023 15:07:16 02/28/20 23 02/27/2023 urina lysis , dipst ick Clarity-Stat us Clear Not Available [facility] [address], [place], [address], 02/27/2023 15:07:16 02/28/20 23 02/27/2023 urina lysis , dipst ick Glucose-Stat us Negati ve Not Available [facility] [address], [place], [address], 02/27/2023 15:07:16 02/28/20 23 02/27/2023 urina lysis , dipst ick Nitrates-Sta tus negati ve Not Available [facility] [address], [place], [address], 02/27/2023 15:07:16 02/28/20 23 02/27/2023 urina lysis , dipst ick Blood-Status Negati ve Not Available [facility] [address], [place], [address], 02/27/2023 15:07:16 02/28/20 23 02/27/2023 urina lysis , dipst ick Leuko-Status Negati ve Not Available [facility] [address], [place], [address], 02/27/2023 15:07:16 10/02/19 23 09/27/2022 bladd er scan (PROC ) No observ ation record ed. Not Available 2022 22:09:27 03/01/20 23 02/27/2023 bladd er scan (PROC ) No observ ation record ed. BARCODE Not Available 2022 15:39:28 Result Notes None recorded. Problems Name Problem SNOMED Code Status Onset Date Resolution Date Notes Provider Name and Address Organization Details Recorded Time Retention of urine 338491311 Active 025 DEBRA GOULD MD [address] [place] [address],[address], [place], [address], [facility] 5 18:09:58 Neurogenic urinary bladder 333335169 Active 025 DEBRA GOULD MD [address] [place] [address],[address], [place], [address], [facility] 5 18:10:05 Problem Notes None recorded. Procedures Surgical History Date Name Laterality Status Provider Name and Address Organization Details Recorded Time 5 Bladder Scan cancelled Kayla Denson [facility] 09/11/2024 15:45:28 3 Bladder Scan completed Pilar Smith [facility] 08/22/2023 10:45:31 3 UroCuff completed Erma Alves [facility] 08/08/2023 16:46:48 3 Bladder Scan completed Erma Alves [facility] 08/08/2023 16:22:41 3 Bladder Scan completed Romie Santos [facility] 02/27/2023 15:07:12 3 Bladder Scan completed Venkatesh Ontiveros MD [address] [place] [address],[address], [place], [address], [facility] 09/27/2022 12:46:00 0 colonoscopy completed Pilar Smith [facility] 08/22/2023 10:42:53 Imaging Results None recorded. Procedure [...] Updated DateTime 09/27/2022 168.91 cm 24.6 kg/m2 [address]14.[address] [facility] 09/27/2022 12:18:06 Date Recorded Body height Body mass index (BMI) Body weight Provider Name and Address Organization Details Last Updated DateTime 02/27/2023 168.91 cm 24.6 kg/m2 [address]80.[address] [facility] 02/27/2023 15:03:45 Date Recorded Body height Body mass index (BMI) Body weight Provider Name and Address Organization Details Last Updated DateTime 08/22/2023 168.91 cm 26.2 kg/m2 [address] [facility] 08/22/2023 10:42:08 Social History Question Answer Notes LastModified by Organizat ion Details LastModified Time Tobacco Smoking Status Former Smoker Miriam marcelo [facility] 09/27/2022 12:24:21 What Is Your Level Of Caffeine Consumption? Moderate Information not available 02/27/2023 When Did You Quit Smoking? 1-5yearssince lastcired [email or web address] Information not available 08/22/2023 Recreational Drug Use No Information not available 02/27/2023 What Was The Date Of Your Most Recent Tobacco Screening? 08/22/2023 [email or web address] Information not available 08/22/2023 What Is Your [...] mcg/0.5 mL [address] [facility] 08/22/2023 10:42:13 Influenza, split virus, quadrivalent, PF [address] [facility] 08/22/2023 10:42:13 COVID-19, mRNA, LNP-S, PF, 50 mcg/0.5 mL 4 completed Not Available [facility] 03/01/2025 14:54:25 Influenza, split virus, trivalent, preservative 4 completed Not Available [facility] 03/01/2025 14:54:25 zoster recombinant [address] [facility] 07/03/2023 17:11:29 zoster recombinant [address] [facility] 07/03/2023 17:11:29 COVID-19, mRNA, LNP-S, PF, 100 mcg/0.5mL dose or 50 mcg/0.25mL dose [address] [facility] 07/03/2023 17:11:29 COVID-19, mRNA, LNP-S, PF, 100 mcg/0.5mL dose or 50 mcg/0.25mL dose [address] [facility] 07/03/2023 17:11:29 COVID-19, mRNA, LNP-S, PF, 100 mcg/0.5mL dose or 50 mcg/0.25mL dose [address] [facility] 07/03/2023 17:11:29 COVID-19, mRNA, LNP-S, PF, 100 mcg/0.5mL dose or 50 mcg/0.25mL dose [address] [facility] 07/03/2023 17:11:29 COVID-19, mRNA, LNP-S, bivalent, PF, 50 mcg/0.5 mL or 25mcg/0.25 mL dose [address] [facility] 07/03/2023 17:11:29 Tdap 9 completed Jenny marcelo [facility] 07/03/2023 17:11:29 Influenza, split virus, trivalent, preservative [address] [facility] 07/03/2023 17:11:29 Past Encounters Encounter ID Performer Location Encounter Start Date Encounter Closed Date Diagnosis/Indication Diagnosis SNOMED-CT Code Diagnosis ICD10 Code Diagnosis Note [id number] Venkatesh Ontiveros MD [facility] [address] [place] [address] 09/27/2022 11:56:38 10/01/2022 14:14:58 Urethral stricture 06272595 N35.919 - Will set up for Q6 month UroCuff- PVR today 134 mL- If evidence of recurrence then would recommend Optilume dilation Recurrent urinary tract infection 023409177 N39.0 - Start TheraCran given recurrent E coli UTIs [id number] Venkatesh Ontiveros MD [address] [place], [place] [address] 02/27/2023 14:11:30 03/07/2023 08:28:19 Urethral stricture 07272902 N35.919 - Will set up for UroCuff- PVR today 21 mL- If evidence of recurrence then would recommend Optilume dilation Recurrent urinary tract infection N39.0 - Start TheraCran given recurrent E coli UTIs- Could also add d-Mannose supplement [id number] Venktaesh Ontiveros MD [address] [place] [address] 08/08/2023 10:50:58 08/16/2023 11:25:54 Urethral stricture 90248733 N35.919 [id number] Venkatesh Ontiveros MD [address] [place] [address] 08/22/2023 10:36:02 09/04/2023 10:08:51 Urethral stricture 11307223 N35.919 - UroCuff reviewed- IPSS: 5 (2)- PVR today 35 mL- If evidence of recurrence then would recommend Optilume dilation- Follow up in 1 year with UroCuff Recurrent urinary tract infection N39.0 - Continue TheraCran given recurrent E coli UTIs- Could also add d-Mannose supplement [id number] DEBRA GOULD MD [address] [place], [place] [address] 03/01/2025 14:50:39 03/01/2025 16:41:07 Retention of urine 040032737 R33.9 evaluated at [facility] most recently on 02/08/25per history and prior [...] ID Guarantor Name 03/01/2025 1 MEDICARE B-[place]: [employer] Jerry Ballesteros [id number] Jerry Ballesteros Notes Date Note Type Note Provider Name and Address Organization Details Recorded Time 09/27/2022 text/html Mr. Ballesteros is a very pleasant 67-year-old male with a history of imperforate anus, solitary kidney, and history of urethral stricture disease requiring multiple dilations. Patient states that his last dilation was about [address] Prabhakar. Was seeing a [facility] while living in [place] but it has been quite some time since he has seen a Urologist. No established nephrology care here in [place].Current urination consists of: urinary frequency with some [...] more than usual. Venkatesh Ontiveros MD [address] [facility],[address], [place], [address], [facility] 09/27/2022 12:46:39 02/27/2023 text/html Mr. Ballesteros is a very pleasant 67-year-old male with a history of imperforate anus, solitary kidney, and history of urethral stricture disease requiring multiple dilations. Patient states that his last dilation was about [address] Prabhakar. Was seeing a [facility] while living in [place] but it has been quite some time since he has seen a Urologist. No established nephrology care here in [place].Current urination consists of: urinary frequency with some [...] since started cranberry supplement. Venkatesh Ontiveros MD [address] [place] [address],[address], [place], [address], [facility] 02/27/2023 22:10:59 08/22/2023 text/html Mr. Ballesteros is a very pleasant 67-year-old male with a history of imperforate anus, solitary kidney, and history of urethral stricture disease requiring multiple dilations. Patient states that his last dilation was about [address] Prabhakar. Was seeing a [facility] while living in [place] but it has been quite some time since he has seen a Urologist. No established nephrology care here in [place].Current urination consists of: urinary frequency with some [...] well, no recent UTIs. Venkatesh Ontiveros MD [address] [place] [address],[address], [place], [address] 08/22/2023 13:34:58 03/01/2025 text/html Date of Ffzebtk1103/01/2025 Indication:urinary retention Referring Physician:Fab Testing today included: Uroflow, multichannel cystometry, EMG, and pressure flow study. Details of procedure:After discussing the purpose and nature of visit, the patient consented to proceed.Uroflow:Uroflo w #1 (prior to CMG) Patient [id number] Maximum flow rate39.8mL/s Average flow rate9.3Post void [id number] mL (CIC) Uroflow #2 (post CMG- see nona notes) Patient [id number] Maximum flow rate23.4mL/s Average flow rate5 ml/sPost void residual<50 Filling phase: 7 fr air charged catheters were used. Fill rate:35-60mL/minute The first sensation of bladder filling occurred at55mL The first desire to void occurred [id number] The strong desire to void occurred [id number] The maximum capacity [id number] The bladder compliance isnormal Detrusor pressure during filling isnormal Detrusor Overactivity: No DO noted Stress Urinary Incontinence: No RUBIO Pressure flow study:Patient [id number] after permission to void was given. Maximum flow rate3.4mL/s with PDet at max flow-2cm H2O. Post void [id number] mL. Visual detrusor contractionwas notnoted. Abdominal strainingwasnoted. [...] this way. Nona name:[place]OR[place] Moore RN - [facility] 03/01/2025 16:41:02
--- OUTSIDE RECORDS SUMMARY | 2025-03-05 15:31 | XMS_ITS | CCD ---
Author Name Interface, [id number] [address] Organization [place] [facility] [place] [address] Allergies and Adverse Reactions Medication/Group Name Reaction [...]
[2025-03-05 15:36] VITALS: BP 135/84; PULSE 78; RESP 16; TEMP 36.9; O2SAT 97; BMI 24.0
--- NOTE | 2025-03-05 16:01 | ED.GENADULT ---
HPI - General Adult General Date Seen: 03/05/25 Chief complaint: Unspecified Complaint, Adult Stated complaint: needs catheter Time Seen by Provider: 03/05/25 15:58 History of Present Illness HPI narrative: 69 yo M with history of hypertension, hyperlipidemia, and history of urinary retention and urethral stricture Was seen here in the ER in September 2024. Had a Andre catheter placed on 09/22. CT at that time also showed irritation of his rectum, possibly a proctitis. Put on Cipro and Flagyl for proctitis. He had the Andre catheter removed and then came back to the ER on 09/30 with recurrent urinary retention after having his catheter removed in clinic. He had another cath placed He return to the ER a 3rd time requesting that his ER catheter be removed. He recently underwent a urologic procedure. He came to the ER 3 days ago on March 02 and was diagnosed with UTI answers and was admitted. He had pyuria and bacteriuria. Started on IV Rocephin for UTI. Also notes indicate that he has urethral stricture, anxiety disorder, hypertension, chronic diarrhea. Per discharge summary- Urine culture grew Klebsiella, sensitive to Rocephin. Discharged with a 10 day course of cefpodoxime. Had a history of congenital hypospadias and urethral dilation in the past. Does intermittent urinary self catheterization. Patient does intermittently self catheterize because of his history of urethral stricture. When he has an infection his retention tends to be worse so he has to self catheterize every day. When he does not have an infection he probably only has to self cath a couple of times per week. He was discharged home on antibiotics and has been taking them. He says overall he is doing tremendously much better than he was before he got into the hospital to treat his infection. He is not having fever or chills, flank pain, vomiting, weakness, or other symptoms of worsening infection. Came to the ER today because he has a new box of sterile 14 Congolese catheters on order, but they cannot be delivered until next Saturday. He does not have the means to self-catheterize himself this weekend. He is requesting that we give him a supply a 14 Congolese catheters to help him do his self catheterization at home this weekend. He is not currently having any pain from urinary retention but he came here to the ER now knowing that it is the independent stay holiday and he has no other means of getting catheters. Related Data Home Medications ?Medication ?Instructions ?Recorded ?Confirmed clonazepam 0.5 mg tablet 0.5 mg PO DAILY 12/02/22 03/03/25 mirtazapine 7.5 mg tablet 7.5 mg PO HS 12/02/22 03/03/25 pravastatin 40 mg tablet 40 mg PO DAILY 12/02/22 03/02/25 amlodipine 5 mg tablet 5 mg PO DAILY 03/11/23 03/02/25 aspirin 81 mg tablet,delayed 81 mg PO DAILY 09/06/23 03/02/25 release (Adult Aspirin Regimen) ascorbic acid (vitamin C) 1,000 mg 1 g PO DAILY 03/03/25 03/03/25 tablet (Vitamin C) calcium carbonate (Oyster Shell 1,000 mg PO DAILY 03/03/25 03/03/25 Calcium) cholecalciferol (vitamin D3) 25 25 mcg PO DAILY 03/03/25 03/03/25 mcg (1,000 unit) tablet (Vitamin D3) loperamide 2 mg capsule 2 mg PO QID PRN 03/03/25 03/03/25 multivitamin (Daily Value tablet) 1 tab PO DAILY 03/03/25 03/03/25 Previous Rx's ?Medication ?Instructions ?Recorded cefpodoxime 100 mg tablet 100 mg PO BID #20 tabs 03/04/25 Allergies Allergy/AdvReac Type Severity Reaction Status Date / Time No Known Drug Allergies Allergy Verified 03/02/25 17:19 [facility] Medical History (Updated 03/05/25 @ 16:22 by Abhijit Salmon MD) Retention of urine (02/08/25) ?R33.9 - Retention of urine, unspecified (ICD-10) Hyperlipidemia (04/15/07) ?E78.5 - Hyperlipidemia, unspecified (ICD-10) H/O urethral stricture (03/01/21) ?Z87.448 - Personal history of other diseases of urinary system (ICD-10) Generalized anxiety disorder (03/01/21) ?F41.1 - Generalized anxiety disorder (ICD-10) Essential hypertension (02/18/17) ?I10 - Essential (primary) hypertension (ICD-10) 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) ?Q42.3 - Congenital absence, atresia and stenosis of anus without fistula (ICD-10) Chronic diarrhea (09/09/08) ?K52.9 - Noninfective gastroenteritis and colitis, unspecified (ICD-10) Benign hypertensive renal disease (03/26/14) ?I12.9 - Hypertensive chronic kidney disease with stage 1 through stage 4 chronic kidney disease, or unspecified chronic kidney disease (ICD-10) Acquired absence of kidney (02/18/17) ?Z90.5 - Acquired absence of kidney (ICD-10) Social History What is your current living situation?: I presently have a place to live Problems where you live: declined to answer Problems where you live details: N/A In the past 12 months, utilities in danger of being shut off: no In past 12 months, lack of transportation kept you from medical appts, meetings, work, or getting things needed for daily living: no In the past 12 mos, have been you worried that your food would run out before you had money to buy more?: never true In the past 12 mos, the food you bought just didn't last and you didn't have money to buy more?: never true Highest level of school completed/degree received: some college, no degree Smoking Status: Never smoker Do you use any of these nicotine containing products: None How often do you have a drink containing alcohol: never How often do you have six or more drinks on one occasion: Never AUDIT-C Alcohol total score: 0 Non-prescribed substance use: denies use How often does anyone, including family, friends and others, physically hurt you: never How often does anyone, including family, friends and others, insult or talk down to you: never How often does anyone, including family, friends and others, threaten you with harm: never How often does anyone, including family, friends and others, scream or curse at you: never service: No Exam Narrative: Exam Narrative: Constitutional: Appears well-developed and well-nourished. Active. Non-toxic appearing. HENT: Head: Atraumatic. No signs of injury. Nose: No nasal discharge. Mouth/Throat: Mucous membranes are moist. No trismus. Airway patent. Eyes: Conjunctivae normal and EOM are normal. Pupils are equal, round, and reactive to light. Right eye exhibits no discharge. Left eye exhibits no discharge. No icterus. Neck: Normal range of motion. Neck supple. No adenopathy. No stridor. Cardiovascular: Normal rate and regular rhythm Brisk capillary refill Pulmonary/Chest: Effort normal. No stridor. No respiratory distress. Abdominal: Soft. Bowel sounds are normal. No distension. No mass. There is no tenderness. There is no rebound and no guarding. No CVA tenderness. Musculoskeletal: Normal range of motion. No edema. No tenderness. No deformity. Neurological: Alert. Normal strength. No cranial nerve deficit or sensory deficit. Coordination normal. GCS eye subscore is 4. GCS verbal subscore is 5. GCS motor subscore is 6. Skin: Skin is warm. No rash noted. Const: Vital Signs, click to edit/add: Vital Signs - 24 hr 03/05/25 15:36 Temperature 98.5 F Pulse Rate [Pulse Oximeter] 78 Respiratory Rate 16 Blood Pressure [Ri ght Upper Arm] 135/84 Pulse Oximetry 97 Oxygen Delivery Me thod Room Air Course Vital Signs Vital signs: Initial Vital Signs Temperature 98.5 F 03/05/25 15:36 Temperature Source Temporal Artery Scan 03/05/25 15:36 Pulse Rate 78 03/05/25 15:36 Pulse Rhythm Regular 03/05/25 15:36 Respiratory Rate 16 03/05/25 15:36 Blood Pressure 135/84 03/05/25 15:36 Blood Pressure Mean 101 03/05/25 15:36 Blood Pressure Position Sitting 03/05/25 15:36 Pulse Oximetry 97 03/05/25 15:36 Oxygen Delivery Method Room Air 03/05/25 15:36 Vital Signs Temperature 98.5 F 03/05/25 15:36 Pulse Rate 78 03/05/25 15:36 Respiratory Rate 16 03/05/25 15:36 Blood Pressure 135/84 03/05/25 15:36 Pulse Oximetry 97 03/05/25 15:36 Oxygen Delivery Method Room Air 03/05/25 15:36 Temperature 98.5 F 03/05/25 15:36 Pulse Rate 78 03/05/25 15:36 Respiratory Rate 16 03/05/25 15:36 Blood Pressure 135/84 03/05/25 15:36 Pulse Oximetry 97 03/05/25 15:36 Oxygen Delivery Method Room Air 03/05/25 15:36 Medical Decision Making MDM Narrative Medical decision making narrative: Very pleasant 69-year-old gentleman presenting to the ER today requesting Andre catheters. He has a history of urethral stricture and does have to do intermittent self catheterization at home. He also recently had a urologic procedure and was admitted here couple of days ago for UTI. He is currently on antibiotics which are effective based on his culture and sensitivities. He is not having any symptoms of worsening UTI or sepsis. He he just does not have any more of his sterile self catheters at home any wants to make sure he stays on track with keeping his bladder decompressed. He normally uses 14 Congolese catheters. We are able to bring down a supply of catheters for the patient and will send him home with catheters to make sure he has enough to do his self catheterization until his supply can be delivered to him on Saturday. Discharge Plan Discharge Clinical Impression: H/O urethral stricture Patient Disposition: Home, Self-Care Condition: Stable Instructions: Catheter-associated Urinary Tract Infection (ED) Additional Instructions: As we discussed, please continue on your antibiotics as prescribed. Please continue your plan of self catheterization at home. Be sure to use your best sterile technique. Please come back to the ER right away if you have any problems ; especially worsening symptoms infection such as fever, chills, weakness, nausea vomiting, bladder pain or abdominal pain, kidney pain or flank pain. Prescriptions: No Action pravastatin 40 mg tablet 40 mg PO DAILY clonazepam 0.5 mg tablet 0.5 mg PO DAILY Patient Comments: AND NEEDED mirtazapine 7.5 mg tablet 7.5 mg PO HS aspirin [Adult Aspirin Regimen] 81 mg tablet,delayed release (DR/EC) 81 mg PO DAILY amlodipine 5 mg tablet 5 mg PO DAILY Patient Comments: TAKE 1 TABLET (5 MG) BY MOUTH ONCE DAILY. calcium carbonate [Oyster Shell Calcium] 500 mg calcium (1,250 mg) tablet 1,000 mg PO DAILY cholecalciferol (vitamin D3) [Vitamin D3] 25 mcg (1,000 unit) tablet 25 mcg PO DAILY loperamide 2 mg capsule 2 mg PO QID PRN multivitamin [Daily Value] Tablet 1 tab PO DAILY ascorbic acid (vitamin C) [Vitamin C] 1,000 mg tablet 1 g PO DAILY cefpodoxime 100 mg tablet 100 mg PO BID Qty: 20 0RF Rx Instructions: must administer with a meal/food Follow Up/Referrals: Natalie Juárez DO [Primary Care Provider, Family Practice] Stand Alone Forms: MyHealth Info Instructions
--- OUTSIDE RECORDS SUMMARY | 2025-03-05 16:32 | XMS_ITS | CCD ---
Author Name Interface, [id number] [address] [facility] [place] [address] Allergies and Adverse Reactions Medication/Group Name Reaction [...]
--- OUTSIDE RECORDS SUMMARY | 2025-03-05 16:33 | XMS_ITS | CCD ---
Author Name Interface, [id number] [address] Organization [facility] [place] [address] Allergies and Adverse Reactions Medication/Group Name Reaction [...]
== END 2025-03-05 17:49 | disposition home or self-care (01) ==
LOC: ED 16:31
PROVIDERS: Emergency Provider Emergency Medicine; PCP Family Medicine
DX: R33.9 Retention of urine, unspecified (principal); Z46.82 Encounter for fitting and adjustment of non-vascular catheter
CPT/HCPCS: 99281

== ENCOUNTER 2025-03-07 11:05 | Emergency (ER) | payer MEDICARE, SELFPAY ==
--- OUTSIDE RECORDS SUMMARY | 2025-03-07 11:11 | XMS_ITS | CCD ---
Author Name Interface, [id number] [place] [address] Organization [facility] [place] [address] Allergies and Adverse Reactions Medication/Group Name Reaction [...]
--- OUTSIDE RECORDS SUMMARY | 2025-03-07 11:11 | XMS_ITS | Clinical Summary ---
Author Organization [employer] Address [address] [place] [address] Care Team Providers Care Architectural Project Manager Name Role Phone Natalie Juárez Alyia IGRON Primary Care Provider Kate Pugh DO Unavailable [phone] Billy Sanon MD Unavailable Allergies No known [...] Type Department Care Team Description 03/04/[address] [address] Billy Sanon MD Questions 03/03/[address] [address] Billy Sanon MD Outside Order (catheter ) 02/28/2025 Nurse Triage [facility] [address] [place] [address] Natalie Juárez Aliya, DO Diarrhea 02/27/[address] [address] Billy Sanon MD Questions (Questions regarding his medications before his lab 03/01/25) 02/27/2025 Nurse Triage [facility] [address] [place] [address] Sir Juárezi Aliya, DO Questions 02/26/2025 Nurse Triage [address] [address] Billy aSnon MD Concerns 02/26/2025 Nurse Triage [address] [address] Billy Sanon MD Error-please disregard 02/26/[address] [place] [address] Billy Sanon MD 02/25/[address] [place] [address] Billy Sanon MD Message 02/18/2025 3:30 PM CDT Nurse/Clinic Staff Only [address] [place] [address] Nurse/Clinic Staff Only (Self catheter teaching) 02/18/2025 Travel 02/17/[address] [place] [address] Billy Sanon MD Referral (Catheter Prescription and Referral) 02/16/[address] [place] [address] Billy Sanon MD Message (Where is the patient's catheter? ) 02/10/[address] [place] [address] Billy Sanon MD requesting call 02/08/2025 2:20 PM CDT Office Visit [address] [address] Billy Sanon MD Follow Up (Bladder scan) 02/08/2025 Travel 02/04/[address] [place] [address] Billy Sanon MD Error-please disregard 01/22/2025 3:00 PM CDT Office Visit [facility] [address] [place] [address] Natalie Juárez, DO Facial Injury (L jaw/facial pain - from mouthguard? ); Foot Pain/problem (Left foot pain - bruise?) 01/22/2025 Travel 01/20/2025 10:30 AM CDT Nurse/Clinic Staff Only [address] [phone] Nurse/Clinic Staff Only (Self Cath teaching ) 01/20/2025 Travel 01/11/[address] [phone] Billy Sanon MD Appointment Request (TIGHTNESS AROUND BLADDER) 01/05/[address] [phone] Billy Sanon MD Questions (requesting a call [...] on file Legal Sex Male 6:11 AM STITCHER HAND Gender Identity Not on file Sexual Orientation [...] Description 03/11/2025 10:10 AM CDT Office Visit [facility] [address] [place] [address] Natalie Juárez, DO [address] [place] [address] 03/17/2025 12:55 PM CDT Office Visit [facility] [address] [place] [address] Natalie Juárez, DO [address] [place] [address] 04/19/2025 10:30 AM CDT Appointment [facility] [address] [place] [address] 05/10/2025 11:00 AM CDT Office Visit [facility] [address] [place] [address] Billy Sanon MD [address] [place] [address] 06/03/2025 1:00 PM CDT Phone Office Visit [facility] [address] [facility] [address] [place] [phone] Kate Pugh DO [address] [facility] [address] [place], [place] [phone] Health Maintenance Due Date Last Done Comments [...] 02/03/2029 02/04/2024, 06/22/2022, 01/20/2020 (Completed outside of [employer]), Additional history exists Tetanus booster 07/11/2029 07/11/2019, 04/16/2006 Colonoscopy through age 75 03/03/203003/03 (Completed outside of [employer]) RSV vaccine for adults or (1 - 1-dose 75+ series) 2032 Hepatitis C screening for ag e 18-79 Completed 01/02/2022 Zoster (shingles) series for age 50+ Completed 08/21/2022, 03/26/2022 AAA screening age 65-74 Completed 09/24/2022 Procedures Procedure Name Priority Date/Time Associated Diagnosis Comments AL LESLIE POST-VOIDING RESIDUAL URINE&/BLADDER CAP Routine 02/08/2025 12:00 AM CDT H/O urethral stricture Solitary kidney, acquired Urinary retention BPH with obstruction/lower urinary tract symptoms LIPID PANEL W REFLEX MEASURED LDL Routine 02/04/2024 9:53 AM CDT Hyperlipidemia, unspecified hyperlipidemia type US ABD AORTA SCREENING Routine 09/24/2022 9:16 AM STITCHER HAND Screening for AAA (aortic abdominal aneurysm) ANTI HCV Routine 01/02/2022 10:46 AM CDT Encounter for hepatitis C screening test for low risk patient from Last 3 Months or Most Recently Relevant to Health Maintenance Results * AL LESLIE POST-VOIDING RESIDUAL URINE&/BLADDER CAP (02/08/2025 12:00 AM CDT) Billy Sanon MD PB - URINARY SYSTEM SE RVICES Final Result * LIPID PANEL W REFLEX MEASURED LDL (02/04/2024 9:53 AM CDT) CHOLESTEROL,TOTAL 198 100 - 199 mg/dL 02/04/2024 6:48 PM CDT [facility] Comment: Cholesterol, Total Reference Ranges Desirable <200 mg/dL Borderline 200-239 mg/dL High >=240 mg/dL TRIGLYCERIDES 119 <150 mg/dL 02/04/2024 6:48 PM CDT [facility] HDL CHOLESTEROL 67 >40 mg/dL 6:48 PM CDT [facility] NON-HDL CHOLESTEROL 131 <145 mg/dl 02/04/2024 6:48 PM CDT [facility] CHOL/HDL RATIO 2.96 <4.50 02/04/2024 6:48 PM CDT [facility] LDL CHOLESTEROL 107 <=130 mg/dL 02/04/2024 6:48 PM CDT [facility] VLDL CHOLESTEROL 24 <=30 mg/dL 02/04/2024 6:48 PM CDT [facility] PROVIDER ORDERED STATUS RANDOM 02/04/2024 6:48 PM CDT [facility] Blood BLOOD SPECIMEN / Unknown Venipuncture / Unknown 02/04/2024 9:53 AM CDT 02/04/2024 9:53 AM CDT us Natalie Juárez DO CHEMISTRY Final Result [facility] [address] [place] [address], [place] * US ABD AORTA SCREENING [[id number]] (09/24/2022 9:16 AM STITCHER HAND) Anatomical Region Laterality Modality Abdomen, AORTA Ultrasound 09/24/2022 10:4 1 AM STITCHER HAND Impressions 09/24/2022 10:41 AM STITCHER HAND Normal sonographic assessment of the abdominal aorta. Dictated by Colin Dumas MD @ Sep 24 2022 10:41AM (Electronically Signed) Narrative 09/24/2022 10:41 AM STITCHER HAND For Patients: As a result of the [...] asia Non-React asia 01/02/2022 6:27 PM CDT [facility] Comment:Antibodies to HCV no t detected; does not exclude the possibility of exposure to HCV. Blood BLOOD SPECIMEN / Unknown Venipuncture / Unknown 01/02/2022 10:46 AM CDT 01/02/2022 10:47 AM CDT Natalie Aliya Marquita DO SEND OUTS Final Result [facility] [address] [place] [address], from Last 3 Months or Most Recently Relevant to Health Maintenance Insurance MEDICARE PB ONLY MEDICARE PART B HB ONLY MEDICARE PART A HB ONLY Care Teams Architectural Project Manager Relationship Specialty Start Date End Date Natalie Juárez DO [address] [place] [address] PCP - General Family Practice 03/01/21 Kate Pugh DO [address] [facility] [address] [place] [address] Psychiatry 01/11/23 Billy Sanon MD [address] [facility] [place] [address] Surgery - Urology 08/10/24
--- OUTSIDE RECORDS SUMMARY | 2025-03-07 11:12 | XMS_ITS | Continuity of Care Document ---
Author Organization [facility] Address [address] [facility] [place] [address] Care Team Providers Care Wire Transfer Clerk Name Role Phone MARINE HAAS Primary Care Provider [phone] Assessment No assessment recorded. Plan of Treatment [...] Organization Details Recorded Time Retention of urine [id number] Active [facility] DEBRA GOULD MD [address] [place] [address], [phone], [facility] 5 18:09:58 Neurogenic urinary bladder [id number] Active [facility] DEBRA GOULD MD [address] [place] [address] [place] [address], [phone], [facility] 5 18:10:05 Problem Notes None recorded. Procedures Surgical History Date Name Laterality Status Provider Name and Address Organization Details Recorded Time 5 Bladder Scan cancelled Kayla Denson [facility] 09/11/2024 15:45:28 3 Bladder Scan completed Pilar Smith [facility] 08/22/2023 10:45:31 3 UroCuff completed Erma Alves [facility] 08/08/2023 16:46:48 3 Bladder Scan completed Erma Alves [facility] 08/08/2023 16:22:41 3 Bladder Scan completed Romie Santos [facility] 02/27/2023 15:07:12 3 Bladder Scan completed Venkatesh Ontiveros MD [address] [facility],[address], [place], [address], [facility] 09/27/2022 12:46:00 0 colonoscopy completed Pilar Smith [facility] 08/22/2023 10:42:53 Imaging Results [...] Tobacco Smoking Status Former Smoker Miriam marcelo, [place] [facility] 09/27/2022 12:24:21 What Is Your Level Of Caffeine Consumption? Moderate Information not available 02/27/2023 When Did You Quit Smoking? 1-5yearssince lastcigarette [email or web address] Information not available 08/22/2023 Recreational Drug Use No Information not available 02/27/2023 What Was The Date Of Your Most Recent Tobacco Screening? 08/22/2023 [email or web address] Information not available 08/22/2023 What Is Your [...] 50 mcg/0.5 mL 3 completed Pilar marcelo [facility] 08/22/2023 10:42:13 Influenza, split virus, quadrivalent, PF 3 completed Pilar marcelo [facility] 08/22/2023 10:42:13 COVID-19, mRNA, LNP-S, PF, 50 mcg/0.5 mL 4 completed Not Available [facility] 03/01/2025 14:54:25 Influenza, split virus, trivalent, preservative 4 completed Not Available [facility] 03/01/2025 14:54:25 zoster recombinant 2 completed Jenny marcelo [facility] 07/03/2023 17:11:29 zoster recombinant [address] [facility] 07/03/2023 17:11:29 COVID-19, mRNA, LNP-S, PF, 100 mcg/0.5mL dose or 50 mcg/0.25mL dose [address] [facility] 07/03/2023 17:11:29 COVID-19, mRNA, LNP-S, PF, 100 mcg/0.5mL dose or 50 mcg/0.25mL dose [address] [facility] 07/03/2023 17:11:29 COVID-19, mRNA, LNP-S, PF, 100 mcg/0.5mL dose or 50 mcg/0.25mL dose [address] [facility] 07/03/2023 17:11:29 COVID-19, mRNA, LNP-S, PF, 100 mcg/0.5mL dose or 50 mcg/0.25mL dose [address] [facility] 07/03/2023 17:11:29 COVID-19, mRNA, LNP-S, bivalent, PF, 50 mcg/0.5 mL or 25mcg/0.25 mL dose [address] [facility] 07/03/2023 17:11:29 Tdap [address] [facility] 07/03/2023 17:11:29 Influenza, split virus, trivalent, preservative 8 dayana marcelo [facility] 07/03/2023 17:11:29 Past Encounters Encounter ID Performer Location Encounter Start Date Encounter Closed Date Diagnosis/Indication Diagnosis SNOMED-CT Code Diagnosis ICD10 Code Diagnosis Note [id number] MD CHANDA ROMAN_Isabel [address] [place] [address] 03/01/2025 14:50:39 03/01/2025 16:41:07 Retention of urine [id number] R33.9 evaluated at [facility] most recently on 02/08/25per history and prior [...] ID Guarantor Name 03/01/2025 1 MEDICARE [place]: [employer] Jerry Ballesteros [id number] Jerry Ballesteros Notes Date Note Type Note Provider Name and Address Organization Details Recorded Time 03/01/2025 text/html Date of Vtcjtzn0203/01/2025 Indication:urinary retention Referring Physician:Fab Testing today included: Uroflow, multichannel cystometry, EMG, and pressure flow study. Details of procedure:After discussing the purpose and nature of visit, the patient consented to proceed.Uroflow:Uroflo w #1 (prior to [facility]) Patient [id number] Maximum flow rate39.8mL/s Average flow rate9.3Post void [id number] mL (CIC) Uroflow #2 (post [facility]- see nona notes) Patient [id number] Maximum flow rate23.4mL/s Average flow rate5 ml/sPost void residual<50 Filling phase: 7 fr air charged catheters were used. Fill rate:35-60mL/minute The first sensation of bladder filling occurred at55mL The first desire to void occurred [id number] The strong desire to void occurred np527bO The maximum capacity [id number] The bladder compliance isnormal Detrusor pressure during filling isnormal Detrusor Overactivity: No DO noted Stress Urinary Incontinence: No RUBIO Pressure flow study:Patient [id number] after permission to void was given. Maximum flow rate3.4mL/s with PDet at max flow-2cm H2O. Post void taglosjt563 mL. Visual detrusor contractionwas notnoted. Abdominal strainingwasnoted. [...] residual contents this way. Nona name:An marcelo [place] [facility] 03/01/2025 16:41:02
--- OUTSIDE RECORDS SUMMARY | 2025-03-07 11:12 | XMS_ITS | CCD ---
Author Name Interface, [id number] [address] Organization [facility] [place] [address] Allergies and Adverse Reactions Medication/Group Name Reaction [...]
--- OUTSIDE RECORDS SUMMARY | 2025-03-07 11:12 | XMS_ITS | Data Portability ---
Author Organization [facility] [place], [facility] Address [address] [place] [address] Care Team Providers [employer] Salesperson Name Role Phone MARINE HAAS Primary Care [...] 023 [email or web address] [facility], [address], [place], [address], 15:08:08 urinalysis , dipstick 2022 023 [email or web address] [facility], [address], [place], [address], 12:14:01 Referral None recorded. Procedures None recorded. Surgeries None recorded. Imaging None recorded. Medication Orders None recorded. Patient TargetsNo targets recorded. Patient InstructionsNo instructions recorded. Reason for Referral None Reported. Results Created Date Observation Date Name Description Value Unit Range Abnormal Flag Note LastModifiedBy Organization Detail LastModifiedTime 09/27/1909/27/2022 urina lysis , dipst ick Sp Emmalena-Stat us 1.005 Not Available [facility] [address], [place], [address], 09/27/2022 12:12:58 09/27/1909/27/2022 urina lysis , dipst ick pH-Status 6.0 Not Available [facility] [address], [place], [address], 09/27/2022 12:12:58 09/27/19 23 09/27/2022 urina lysis , dipst ick Nitrates-Sta tus negati ve Not Available [facility] [address], [place], [address], 09/27/2022 12:12:58 09/27/1909/27/2022 urina lysis , dipst ick Blood-Status Trace Not Available [facility] [address], [place], [address], 09/27/2022 12:12:58 09/27/1909/27/2022 urina lysis , dipst ick Leuko-Status Negati ve Not Available [facility] [address], [place], [address], 09/27/2022 12:12:58 02/28/20 23 02/27/2023 urina lysis , dipst ick Color-Status Yellow Not Available [facility] [address], [place], [address], 02/27/2023 15:07:16 02/28/20 23 02/27/2023 urina lysis , dipst ick Clarity-Stat us Clear Not Available [facility] [address], [place], [address], 02/27/2023 15:07:16 02/28/20 23 02/27/2023 urina lysis , dipst ick Glucose-Stat us Negati ve Not Available [facility] [address], [place], [address], 02/27/2023 15:07:16 02/28/20 23 02/27/2023 urina lysis , dipst ick Nitrates-Sta tus negati ve Not Available [facility] [address], [place], [address], 02/27/2023 15:07:16 02/28/20 23 02/27/2023 urina lysis , dipst ick Blood-Status Negati ve Not Available [facility] [address], [place], [address], 02/27/2023 15:07:16 02/28/20 23 02/27/2023 urina lysis , dipst ick Leuko-Status Negati ve Not Available [facility] [address], [place], [address], 02/27/2023 15:07:16 10/02/19 23 09/27/2022 bladd er scan (PROC ) No observ ation record ed. Not Available 2022 22:09:27 03/01/20 23 02/27/2023 bladd er scan (PROC ) No observ ation record ed. BARCODE Not Available 2022 15:39:28 Result Notes None recorded. Problems Name Problem SNOMED Code Status Onset Date Resolution Date Notes Provider Name and Address Organization Details Recorded Time Retention of urine 614015571 Active 025 DEBRA GOULD MD [address] [place] [address],[address], [place], [address], [facility] 5 18:09:58 Neurogenic urinary bladder 165291124 Active 025 DEBRA GOULD MD [address] [place] [address],[address], [place], [address], [facility] 5 18:10:05 Problem Notes None recorded. Procedures Surgical History Date Name Laterality Status Provider Name and Address Organization Details Recorded Time 5 Bladder Scan cancelled Kayla Denson [facility] 09/11/2024 15:45:28 3 Bladder Scan completed Pilar Smith [facility] 08/22/2023 10:45:31 3 UroCuff completed Erma Alves [facility] 08/08/2023 16:46:48 3 Bladder Scan completed Erma Alves [facility] 08/08/2023 16:22:41 3 Bladder Scan completed Romie Satnos [facility] 02/27/2023 15:07:12 3 Bladder Scan completed Venkatesh Ontiveros MD [address] [place] [address],[address], [place], [address], [facility] 09/27/2022 12:46:00 0 colonoscopy completed Pilar Smith [facility] 08/22/2023 10:42:53 Imaging Results None recorded. [...] Updated DateTime 09/27/2022 168.91 cm 24.6 kg/m2 10538.82 g Miriam Rae [facility] 09/27/2022 12:18:06 Date Recorded Body height Body mass index (BMI) Body weight Provider Name and Address Organization Details Last Updated DateTime 02/27/2023 168.91 cm 24.6 kg/m2 23642.82 g Romie Santos [facility] 02/27/2023 15:03:45 Date Recorded Body height Body mass index (BMI) Body weight Provider Name and Address Organization Details Last Updated DateTime 08/22/2023 168.91 cm 26.2 kg/m2 21952.74 g Pilar Smith [facility] 08/22/2023 10:42:08 Social History Question Answer Notes LastModified by Organizat ion Details LastModified Time Tobacco Smoking Status Former Smoker Miriam marcelo [facility] 09/27/2022 12:24:21 What Is Your Level Of Caffeine Consumption? Moderate Information not available 02/27/2023 When Did You Quit Smoking? 1-5yearssince lastcired [email or web address] Information not available 08/22/2023 Recreational Drug Use No Information not available 02/27/2023 What Was The Date Of Your Most Recent Tobacco Screening? 08/22/2023 [email or web address] Information not available 08/22/2023 What Is Your [...] 50 mcg/0.5 mL 3 completed Pilar marcelo [facility] 08/22/2023 10:42:13 Influenza, split virus, quadrivalent, PF 3 completed Pilar marcelo [facility] 08/22/2023 10:42:13 COVID-19, mRNA, LNP-S, PF, 50 mcg/0.5 mL 4 completed Not Available [facility] 03/01/2025 14:54:25 Influenza, split virus, trivalent, preservative 4 completed Not Available [facility] 03/01/2025 14:54:25 zoster recombinant 2 completed Jenny marcelo [facility] 07/03/2023 17:11:29 zoster recombinant 2 completed Jenny marcelo [facility] 07/03/2023 17:11:29 COVID-19, mRNA, LNP-S, PF, 100 mcg/0.5mL dose or 50 mcg/0.25mL dose 1 completed Jenny marcelo [facility] 07/03/2023 17:11:29 COVID-19, mRNA, LNP-S, PF, 100 mcg/0.5mL dose or 50 mcg/0.25mL dose 1 completed Jenny marcelo [facility] 07/03/2023 17:11:29 COVID-19, mRNA, LNP-S, PF, 100 mcg/0.5mL dose or 50 mcg/0.25mL dose 2 completed Jenny marcelo [facility] 07/03/2023 17:11:29 COVID-19, mRNA, LNP-S, PF, 100 mcg/0.5mL dose or 50 mcg/0.25mL dose 1 completed Jenny marcelo [facility] 07/03/2023 17:11:29 COVID-19, mRNA, LNP-S, bivalent, PF, 50 mcg/0.5 mL or 25mcg/0.25 mL dose 2 completed Jenny marcelo [facility] 07/03/2023 17:11:29 Tdap 9 completed Jenny marcelo [facility] 07/03/2023 17:11:29 Influenza, split virus, trivalent, preservative 8 dayana marcelo [facility] 07/03/2023 17:11:29 Past Encounters Encounter ID Performer Location Encounter Start Date Encounter Closed Date Diagnosis/Indication Diagnosis SNOMED-CT Code Diagnosis ICD10 Code Diagnosis Note [id number] Venkatesh Ontiveros MD [facility] [address] [place] [address] 09/27/2022 11:56:38 10/01/2022 14:14:58 Urethral stricture 65644350 N35.919 - Will set up for Q6 month UroCuff- PVR today 134 mL- If evidence of recurrence then would recommend Optilume dilation Recurrent urinary tract infection 566055220 N39.0 - Start TheraCran given recurrent E coli UTIs [id number] Venkatesh Ontiveros MD [address] [place], [place] [address] 02/27/2023 14:11:30 03/07/2023 08:28:19 Urethral stricture 38159076 N35.919 - Will set up for UroCuff- PVR today 21 mL- If evidence of recurrence then would recommend Optilume dilation Recurrent urinary tract infection N39.0 - Start TheraCran given recurrent E coli UTIs- Could also add d-Mannose supplement [id number] Venkatesh Ontiveros MD [address] [place] [address] 08/08/2023 10:50:58 08/16/2023 11:25:54 Urethral stricture 31460542 N35.919 [id number] Venkatesh Ontiveros MD [address] [place] [address] 08/22/2023 10:36:02 09/04/2023 10:08:51 Urethral stricture 23219845 N35.919 - UroCuff reviewed- IPSS: 5 (2)- PVR today 35 mL- If evidence of recurrence then would recommend Optilume dilation- Follow up in 1 year with UroCuff Recurrent urinary tract infection N39.0 - Continue TheraCran given recurrent E coli UTIs- Could also add d-Mannose supplement [id number] DEBRA GOULD MD [address] [place], [place] [address] 03/01/2025 14:50:39 03/01/2025 16:41:07 Retention of urine 017229221 R33.9 evaluated at [facility] most recently on 02/08/25per history [...] ID Guarantor Name 03/01/2025 1 MEDICARE B-[place]: [employer] Jerry Ballesteros [id number] Jerry Ballesteros Notes Date Note Type Note Provider Name and Address Organization Details Recorded Time 09/27/2022 text/html Mr. Ballesteros is a very pleasant 67-year-old male with a history of imperforate anus, solitary kidney, and history of urethral stricture disease requiring multiple dilations. Patient states that his last dilation was about 12 [address] a Dr[address] Prabhakar. Was seeing a Group Billing Coordinator while living in [place] but it has been quite some time since he has seen a Urologist. No established nephrology care here in [place].Current urination consists of: urinary frequency with some [...] more than usual. Venkatesh Ontiveros MD [address], [place], [address], [facility] 09/27/2022 12:46:39 02/27/2023 text/html Mr. Ballesteros is a very pleasant 67-year-old male with a history of imperforate anus, solitary kidney, and history of urethral stricture disease requiring multiple dilations. Patient states that his last dilation was about [address] Prabhakar. Was seeing a Group Billing Coordinator while living in [place] but it has been quite some time since he has seen a Urologist. No established nephrology care here in [place].Current urination consists of: urinary frequency with some [...] since started cranberry supplement. Venkatesh Ontiveros MD [address] [place] [address],[address], [place], [address], [facility] 02/27/2023 22:10:59 08/22/2023 text/html Mr. Ballesteros is a very pleasant 67-year-old male with a history of imperforate anus, solitary kidney, and history of urethral stricture disease requiring multiple dilations. Patient states that his last dilation was about [address] Prabhakar. Was seeing a Group Billing Coordinator while living in [place] but it has been quite some time since he has seen a Urologist. No established nephrology care here in [place].Current urination consists of: urinary frequency with some [...] well, no recent UTIs. Venkatesh Ontiveros MD [address] [place] [address],[address], [place], [address] 08/22/2023 13:34:58 03/01/2025 text/html Date of Lakvcnf0703/01/2025 Indication:urinary retention Referring Physician:Fab Testing today included: Uroflow, multichannel cystometry, EMG, and pressure flow study. Details of procedure:After discussing the purpose and nature of visit, the patient consented to proceed.Uroflow:Uroflo w #1 (prior to CMG) Patient [id number] Maximum flow rate39.8mL/s Average flow rate9.3Post void [id number] mL (CIC) Uroflow #2 (post CMG- see nona notes) Patient [id number] Maximum flow rate23.4mL/s Average flow rate5 ml/sPost void residual<50 Filling phase: 7 fr air charged catheters were used. Fill rate:35-60mL/minute The first sensation of bladder filling occurred at55mL The first desire to void occurred [id number] The strong desire to void occurred [id number] The maximum capacity [id number] The bladder compliance isnormal Detrusor pressure during filling isnormal Detrusor Overactivity: No DO noted Stress Urinary Incontinence: No RUBIO Pressure flow study:Patient [id number] after permission to void was given. Maximum flow rate3.4mL/s with PDet at max flow-2cm H2O. Post void mL. Visual detrusor contractionwas notnoted. Abdominal strainingwasnoted. [...] this way. Nona name:SORIN Moore RN - [facility] 03/01/2025 16:41:02
--- OUTSIDE RECORDS SUMMARY | 2025-03-07 11:12 | XMS_ITS | Data Portability ---
Author Organization [place] [facility] [place] [facility] - INACTIVE OF 12/30/[address] [place] [address] Care Team Providers Care Jerker Name Role Phone SAMEERA RIDLEY Primary Care [...] hormone), intact, serum or plasma 2019 021 [facility], [address], [address], [place], [address], 1 15:55:27 vitamin D, 25-hydroxy , total, serum 2019 [facility], [address] [facility] [place], [address], [place], [address], 1 15:55:27 CBC w/ auto diff 2019 [facility], [address], [address], [place], [address], 1 13:57:47 magnesium, serum or plasma 2019 021 [facility], [address], [address], [place], [address], 1 15:55:27 protein:cr eatinine ratio, urine 2019 [facility], [address], [address], [place], [address], 1 15:55:27 uric acid, serum or plasma 2019 021 [facility], [address], [address], [place], [address], 1 15:55:27 renal function panel, serum 2019 021 [facility], [address], [address], [place], [address], 1 15:55:27 PTH (parathyro id hormone), intact, serum or plasma 2018 [facility], [address], [address], [place], [address], 0 19:51:03 vitamin D, 25-hydroxy , total, serum 2018 [facility], [address], [address], [place], [address], 0 19:51:03 CBC w/ auto diff 2018 [facility], [address], [address], [place], [address], 0 19:51:03 magnesium, serum or plasma 2018 020 [facility], [address], [address], [place], [address], 0 19:51:03 protein:cr eatinine ratio, urine 2018 020 [facility], [address], [address], [place], [address], 0 19:51:03 uric acid, serum or plasma 2018 020 [facility], [address], [address], [place], [address], 0 19:51:03 renal function panel, serum 2018 020 [facility], [address], [address], [place], [address], 0 19:51:03 magnesium, blood 2018 019 [facility], [address], [address], [place], [address], 9 14:09:34 phosphorus , blood 2018 019 [facility], [address], [address], [place], [address], 9 14:09:34 protein:cr eatinine ratio, urine 2018 019 [facility], [address], [address], [place], [address], 9 18:56:10 uric acid, serum or plasma 2018 019 [facility], [address], [address], [place], [address], 9 14:09:34 BMP, serum or plasma 2018 019 [facility], [address], [address], [place], [address], 9 14:09:34 CMP, serum or plasma 2017 018 [facility], [address], [address], [place], [address], 9 17:00:34 magnesium, blood 2017 018 [facility], [address], [address], [place], [address], 8 20:07:04 phosphorus , blood 2017 018 [facility], [address], [address], [place], [address], 8 20:07:04 protein:cr eatinine ratio, urine 2017 018 [facility], [address], [address], [place], [address], 8 20:07:04 CBC w/ auto diff 2017 018 [facility], [address], [address], [place], [address], 9 16:56:21 uric acid, serum or plasma 2017 018 [facility], [address], [address], [place], [address], 8 20:07:04 urinalysis complete, reflex culture 2017 018 [facility], [address], [address], [place], [address], 9 16:56:21 urinalysis , dipstick, reflex micro 2017 018 [facility], [address], [address], [place], [address], 8 20:07:04 CMP, serum or plasma 2016 017 [facility], [address], [address], [place], [address], 8 19:46:50 magnesium, blood 2016 017 [facility], [address], [address], [place], [address], 8 19:46:50 phosphorus , blood 2016 017 [facility], [address], [address], [place], [address], 8 19:46:50 protein:cr eatinine ratio, urine 2016 017 [facility], [address], [address], [place], [address], 8 19:46:50 CBC w/ auto diff 2016 017 [facility], [address], [address], [place], [address], 03/20/201 8 19:46:50 urinalysis , dipstick, reflex micro 2016 017 [facility], [address] [place], [address], [place], [address], 8 19:46:50 uric acid, serum or plasma 2016 017 [facility], [address] [place] [address] [address], [address], [place], [address], 8 19:46:51 Referral None recorded. Procedures None recorded. Surgeries None recorded. Imaging None recorded. Medication Orders losartan 50 mg tablet 2017 [email or web address] [facility], [address] [place] [address], [address], 9 12:17:21 Patient TargetsNo targets recorded. Patient InstructionsNo instructions recorded. Reason for Referral None Reported. Results Created Date Observation Date Name Description Value Unit Range Abnormal Flag Note LastModifiedBy Organization Detail LastModifiedTime 05/23/20 17 05/23/2017 lipid panel , serum color, urine straw Not Available [address], [address], [place], [address], 05/23/2017 17:03:45 05/23/20 17 05/23/2017 lipid panel , serum clarity, urine clear Not Available [address], [address], [place], [address], 05/23/2017 17:03:45 05/23/20 17 05/23/2017 lipid panel , serum pH, urine 1.006 Not Available [address], [place], [address], 05/23/2017 17:03:45 05/23/20 17 05/23/2017 lipid panel , serum protein, urine negati ve Not Available [facility] [address], [address], [place], [address], 05/23/2017 17:03:45 05/23/20 17 05/23/2017 lipid panel , serum glucose, urine negati ve Not Available [facility] [address], [address], [place], [address], 05/23/2017 17:03:45 05/23/20 17 05/23/2017 lipid panel , serum ketones, urine negati ve Not Available [facility] [address], [address], [place], [address], 05/23/2017 17:03:45 05/23/20 17 05/23/2017 lipid panel , serum bilirubin, urine negati ve Not Available [facility] [address], [address], [place], [address], 05/23/2017 17:03:45 05/23/20 17 05/23/2017 lipid panel , serum blood, urine negati ve Not Available [facility] [address], [address], [place], [address], 05/23/2017 17:03:45 05/23/20 17 05/23/2017 lipid panel , serum nitrite, urine negati ve Not Available [facility] [address], [address], [place], [address], 05/23/2017 17:03:45 05/23/20 17 05/23/2017 lipid panel , serum leukocyte esterase negati ve Not Available [facility] [address], [address], [place], [address], 05/23/2017 17:03:45 05/23/20 17 05/23/2017 lipid panel , serum urobilinogen , urine <2.0 Not Available [facility] [address], [address], [place], [address], 05/23/2017 17:03:45 05/23/20 17 05/23/2017 lipid panel , serum protein, urine, random 9.8 Not Available [facility] [address], [address], [place], [address], 05/23/2017 17:03:45 05/23/20 17 05/23/2017 lipid panel , serum creatinine, urine, random 24.9 Not Available [facility] [address], [address], [place], [address], 05/23/2017 17:03:45 05/23/20 17 05/23/2017 lipid panel , serum HGB 14.7 Not Available [facility] [address], [address], [place], [address], 05/23/2017 17:03:45 05/23/20 17 05/23/2017 lipid panel , serum HCT 44.5 Not Available [facility] [address], [address], [place], [address], 05/23/2017 17:03:45 05/23/20 17 05/23/2017 lipid panel , serum WBC 4.5 Not Available [facility] [address], [address], [place], [address], 05/23/2017 17:03:45 05/23/20 17 05/23/2017 lipid panel , serum plt 212 Not Available [facility] [address], [address], [place], [address], 05/23/2017 17:03:45 05/23/20 17 05/23/2017 lipid panel , serum sodium, serum 137 Not Available [facility] [address], [address], [place], [address], 05/23/2017 17:03:45 05/23/20 17 05/23/2017 lipid panel , serum potassium, serum 3.5 Not Available [facility] [address], [address], [place], [address], 05/23/2017 17:03:45 05/23/20 17 05/23/2017 lipid panel , serum chloride, serum 99 Not Available [facility] [address] [facility] [address], [address], [place], [address], 05/23/2017 17:03:45 05/23/20 17 05/23/2017 lipid panel , serum carbon dioxide 27 Not Available [facility] [address] [facility] [address], [address], [place], [address], 05/23/2017 17:03:45 05/23/20 17 05/23/2017 lipid panel , serum calcium, serum 9.0 Not Available [facility] [address] [facility] [address], [address], [place], [address], 05/23/2017 17:03:45 05/23/20 17 05/23/2017 lipid panel , serum glucose, serum 101 Not Available [facility] [address] [facility] [address], [address], [place], [address], 05/23/2017 17:03:45 05/23/20 17 05/23/2017 lipid panel , serum BUN 24 Not Available [facility] [address], [address], [place], [address], 05/23/2017 17:03:45 05/23/20 17 05/23/2017 lipid panel , serum creatinine 1.60 Not Available [facility] [address] [facility] [address], [address], [place], [address], 05/23/2017 17:03:45 05/23/20 17 05/23/2017 lipid panel , serum GFR 44 Not Available [facility] [address], [address], [place], [address], 05/23/2017 17:03:45 05/23/20 17 05/23/2017 lipid panel , serum bilirubin, total 0.5 Not Available [facility] [address], [address], [place], [address], 05/23/2017 17:03:45 05/23/20 17 05/23/2017 lipid panel , serum alkaline phosphatase 43 Not Available [facility] [address], [address], [place], [address], 05/23/2017 17:03:45 05/23/20 17 05/23/2017 lipid panel , serum albumin, serum 4.1 Not Available [facility] [address], [address], [place], [address], 05/23/2017 17:03:45 05/23/20 17 05/23/2017 lipid panel , serum protein, total, serum 7.0 Not Available [facility] [address], [address], [place], [address], 05/23/2017 17:03:45 05/23/20 17 05/23/2017 lipid panel , serum magnesium 1.8 Not Available [facility] [address], [address], [place], [address], 05/23/2017 17:03:45 05/23/20 17 05/23/2017 lipid panel , serum phosphorus 2.8 Not Available [facility] [address], [address], [place], [address], 05/23/2017 17:03:45 05/23/20 17 05/23/2017 lipid panel , serum uric acid 6.1 Not Available [facility] [address], [address], [place], [address], 05/23/2017 17:03:45 05/23/20 17 05/23/2017 lipid panel , serum PSA, total 0.762 Not Available [facility] [address] [facility] [address], [address], [place], [address], 05/23/2017 17:03:45 05/23/20 17 05/23/2017 PSA, serum or plasm a color, urine straw Not Available [facility] [address], [place], [address], 05/23/2017 17:03:45 05/23/20 17 05/23/2017 PSA, serum or plasm a clarity, urine clear Not Available [facility] [address], [place], [address], 05/23/2017 17:03:45 05/23/20 17 05/23/2017 PSA, serum or plasm a pH, urine 1.006 Not Available [facility] [address], [address], [place], [address], 05/23/2017 17:03:45 05/23/20 17 05/23/2017 PSA, serum or plasm a protein, urine negati ve Not Available [facility] [address], [address], [place], [address], 05/23/2017 17:03:45 05/23/20 17 05/23/2017 PSA, serum or plasm a glucose, urine negati ve Not Available [facility] [address], [address], [place], [address], 05/23/2017 17:03:45 05/23/20 17 05/23/2017 PSA, serum or plasm a ketones, urine negati ve Not Available [facility] [address], [place], [address], 05/23/2017 17:03:45 05/23/20 17 05/23/2017 PSA, serum or plasm a bilirubin, urine negati ve Not Available [facility] [address] [facility] [address], [address], [place], [address], 05/23/2017 17:03:45 05/23/20 17 05/23/2017 PSA, serum or plasm a blood, urine negati ve Not Available [facility] [address], [place], [address], 05/23/2017 17:03:45 05/23/20 17 05/23/2017 PSA, serum or plasm a nitrite, urine negati ve Not Available [facility] [address], [address], [place], [address], 05/23/2017 17:03:45 05/23/20 17 05/23/2017 PSA, serum or plasm a leukocyte esterase negati ve Not Available [facility] [address], [address], [place], [address], 05/23/2017 17:03:45 05/23/20 17 05/23/2017 PSA, serum or plasm a urobilinogen , urine <2.0 Not Available [facility] [address], [place], [address], 05/23/2017 17:03:45 05/23/20 17 05/23/2017 PSA, serum or plasm a protein, urine, random 9.8 Not Available [facility] [address], [address], [place], [address], 05/23/2017 17:03:45 05/23/20 17 05/23/2017 PSA, serum or plasm a creatinine, urine, random 24.9 Not Available [facility] [address], [place], [address], 05/23/2017 17:03:45 05/23/20 17 05/23/2017 PSA, serum or plasm a HGB 14.7 Not Available [facility] [address] [facility] [address], [address], [place], [address], 05/23/2017 17:03:45 05/23/20 17 05/23/2017 PSA, serum or plasm a HCT 44.5 Not Available [facility] [address], [address], [place], [address], 05/23/2017 17:03:45 05/23/20 17 05/23/2017 PSA, serum or plasm a WBC 4.5 Not Available [facility] [address], [place], [address], 05/23/2017 17:03:45 05/23/20 17 05/23/2017 PSA, serum or plasm a plt 212 Not Available [facility] [address], [place], [address], 05/23/2017 17:03:45 05/23/20 17 05/23/2017 PSA, serum or plasm a sodium, serum 137 Not Available [facility] [address], [place], [address], 05/23/2017 17:03:45 05/23/20 17 05/23/2017 PSA, serum or plasm a potassium, serum 3.5 Not Available [facility] [address], [place], [address], 05/23/2017 17:03:45 05/23/20 17 05/23/2017 PSA, serum or plasm a chloride, serum 99 Not Available [facility] [address], [place], [address], 05/23/2017 17:03:45 05/23/20 17 05/23/2017 PSA, serum or plasm a carbon dioxide 27 Not Available [facility] [address] [facility] [address], [address], [place], [address], 05/23/2017 17:03:45 05/23/20 17 05/23/2017 PSA, serum or plasm a calcium, serum 9.0 Not Available [facility] [address], [place], [address], 05/23/2017 17:03:45 05/23/20 17 05/23/2017 PSA, serum or plasm a glucose, serum 101 Not Available [facility] [address], [place], [address], 05/23/2017 17:03:45 05/23/20 17 05/23/2017 PSA, serum or plasm a BUN 24 Not Available [facility] [address], [place], [address], 05/23/2017 17:03:45 05/23/20 17 05/23/2017 PSA, serum or plasm a creatinine 1.60 Not Available [facility] [address], [place], [address], 05/23/2017 17:03:45 05/23/20 17 05/23/2017 PSA, serum or plasm a GFR 44 Not Available [facility] [address], [place], [address], 05/23/2017 17:03:45 05/23/20 17 05/23/2017 PSA, serum or plasm a bilirubin, total 0.5 Not Available [facility] [address], [place], [address], 05/23/2017 17:03:45 05/23/20 17 05/23/2017 PSA, serum or plasm a alkaline phosphatase 43 Not Available [facility] [address], [address], [place], [address], 05/23/2017 17:03:45 05/23/20 17 05/23/2017 PSA, serum or plasm a albumin, serum 4.1 Not Available [address] [facility] [address], [address], [place], [address], 05/23/2017 17:03:45 05/23/20 17 05/23/2017 PSA, serum or plasm a protein, total, serum 7.0 Not Available [facility] [address] [facility] [address], [address], [place], [address], 05/23/2017 17:03:45 05/23/20 17 05/23/2017 PSA, serum or plasm a magnesium 1.8 Not Available [address] [facility] [address], [address], [place], [address], 05/23/2017 17:03:45 05/23/20 17 05/23/2017 PSA, serum or plasm a phosphorus 2.8 Not Available [address] [facility] [address], [address], [place], [address], 05/23/2017 17:03:45 05/23/20 17 05/23/2017 PSA, serum or plasm a uric acid 6.1 Not Available [address] [facility] [address], [address], [place], [address], 05/23/2017 17:03:45 05/23/20 17 05/23/2017 PSA, serum or plasm a PSA, total 0.762 Not Available [address] [facility] [address], [address], [place], [address], 05/23/2017 17:03:45 05/23/20 17 05/23/2017 uric acid, serum or plasm a color, urine straw Not Available [facility] [address] [facility] [address], [place], [address], 05/23/2017 17:03:45 05/23/20 17 05/23/2017 uric acid, serum or plasm a clarity, urine clear Not Available [facility] [address], [place], [address], 05/23/2017 17:03:45 05/23/20 17 05/23/2017 uric acid, serum or plasm a pH, urine 1.006 Not Available [facility] [address], [place], [address], 05/23/2017 17:03:45 05/23/20 17 05/23/2017 uric acid, serum or plasm a protein, urine negati ve Not Available [facility] [address], [place], [address], 05/23/2017 17:03:45 05/23/20 17 05/23/2017 uric acid, serum or plasm a glucose, urine negati ve Not Available [facility] [address], [place], [address], 05/23/2017 17:03:45 05/23/20 17 05/23/2017 uric acid, serum or plasm a ketones, urine negati ve Not Available [facility] [address], [place], [address], 05/23/2017 17:03:45 05/23/20 17 05/23/2017 uric acid, serum or plasm a bilirubin, urine negati ve Not Available [facility] [address], [place], [address], 05/23/2017 17:03:45 05/23/20 17 05/23/2017 uric acid, serum or plasm a blood, urine negati ve Not Available [facility] [address], [place], [address], 05/23/2017 17:03:45 05/23/20 17 05/23/2017 uric acid, serum or plasm a nitrite, urine negati ve Not Available [facility] [address], [place], [address], 05/23/2017 17:03:45 05/23/20 17 05/23/2017 uric acid, serum or plasm a leukocyte esterase negati ve Not Available [facility] [address] [facility] [address], [address], [place], [address], 05/23/2017 17:03:45 05/23/20 17 05/23/2017 uric acid, serum or plasm a urobilinogen , urine <2.0 Not Available [facility] [address], [place], [address], 05/23/2017 17:03:45 05/23/20 17 05/23/2017 uric acid, serum or plasm a protein, urine, random 9.8 Not Available [facility] [address], [place], [address], 05/23/2017 17:03:45 05/23/20 17 05/23/2017 uric acid, serum or plasm a creatinine, urine, random 24.9 Not Available [facility] [address], [place], [address], 05/23/2017 17:03:45 05/23/20 17 05/23/2017 uric acid, serum or plasm a HGB 14.7 Not Available [facility] [address], [place], [address], 05/23/2017 17:03:45 05/23/20 17 05/23/2017 uric acid, serum or plasm a HCT 44.5 Not Available [facility] [address] [facility] [address], [place], [address], 05/23/2017 17:03:45 05/23/20 17 05/23/2017 uric acid, serum or plasm a WBC 4.5 Not Available [facility] [address] [facility] [address], [place], [address], 05/23/2017 17:03:45 05/23/20 17 05/23/2017 uric acid, serum or plasm a plt 212 Not Available [facility] [address] [facility] [address], [place], [address], 05/23/2017 17:03:45 05/23/20 17 05/23/2017 uric acid, serum or plasm a sodium, serum 137 Not Available [facility] [address] [facility] [address], [place], [address], 05/23/2017 17:03:45 05/23/20 17 05/23/2017 uric acid, serum or plasm a potassium, serum 3.5 Not Available [facility] [address] [facility] [address], [place], [address], 05/23/2017 17:03:45 05/23/20 17 05/23/2017 uric acid, serum or plasm a chloride, serum 99 Not Available [facility] [address] [facility] [address], [place], [address], 05/23/2017 17:03:45 05/23/20 17 05/23/2017 uric acid, serum or plasm a carbon dioxide 27 Not Available [facility] [address] [facility] [address], [place], [address], 05/23/2017 17:03:45 05/23/20 17 05/23/2017 uric acid, serum or plasm a calcium, serum 9.0 Not Available [facility] [address] [facility] [address], [place], [address], 05/23/2017 17:03:45 05/23/20 17 05/23/2017 uric acid, serum or plasm a glucose, serum 101 Not Available [facility] [address] [facility] [address], [place], [address], 05/23/2017 17:03:45 05/23/20 17 05/23/2017 uric acid, serum or plasm a BUN 24 Not Available [facility] [address] [facility] [address], [place], [address], 05/23/2017 17:03:45 05/23/20 17 05/23/2017 uric acid, serum or plasm a creatinine 1.60 Not Available [facility] [address] [facility] [address], [place], [address], 05/23/2017 17:03:45 05/23/20 17 05/23/2017 uric acid, serum or plasm a GFR 44 Not Available [facility] [address] [facility] [address], [place], [address], 05/23/2017 17:03:45 05/23/20 17 05/23/2017 uric acid, serum or plasm a bilirubin, total 0.5 Not Available [facility] [facility] [address], [address], [place], [address], 05/23/2017 17:03:45 05/23/20 17 05/23/2017 uric acid, serum or plasm a alkaline phosphatase 43 Not Available [facility] [address] [facility] [address], [address], [place], [address], 05/23/2017 17:03:45 05/23/20 17 05/23/2017 uric acid, serum or plasm a albumin, serum 4.1 Not Available [facility] [address] [facility] [address], [place], [address], 05/23/2017 17:03:45 05/23/20 17 05/23/2017 uric acid, serum or plasm a protein, total, serum 7.0 Not Available [facility] [address] [facility] [address], [address], [place], [address], 05/23/2017 17:03:45 05/23/20 17 05/23/2017 uric acid, serum or plasm a magnesium 1.8 Not Available [facility] [address] [facility] [address], [address], [place], [address], 05/23/2017 17:03:45 05/23/20 17 05/23/2017 uric acid, serum or plasm a phosphorus 2.8 Not Available [facility] [address] [place] [address] [address], [address], [place], [address], 05/23/2017 17:03:45 05/23/20 17 05/23/2017 uric acid, serum or plasm a uric acid 6.1 Not Available [facility] [address], [address], [place], [address], 05/23/2017 17:03:45 05/23/20 17 05/23/2017 uric acid, serum or plasm a PSA, total 0.762 Not Available [facility] [address] [facility] [address], [address], [place], [address], 05/23/2017 17:03:45 05/23/20 17 05/23/2017 phosp horus , blood color, urine straw Not Available [facility] [address], [address], [place], [address], 05/23/2017 17:03:45 05/23/20 17 05/23/2017 phosp horus , blood clarity, urine clear Not Available [facility] [address], [address], [place], [address], 05/23/2017 17:03:45 05/23/20 17 05/23/2017 phosp horus , blood pH, urine 1.006 Not Available [facility] [address], [place], [address], 05/23/2017 17:03:45 05/23/20 17 05/23/2017 phosp horus , blood protein, urine negati ve Not Available [facility] [address], [address], [place], [address], 05/23/2017 17:03:45 05/23/20 17 05/23/2017 phosp horus , blood glucose, urine negati ve Not Available [facility] [address], [address], [place], [address], 05/23/2017 17:03:45 05/23/20 17 05/23/2017 phosp horus , blood ketones, urine negati ve Not Available [facility] [address], [address], [place], [address], 05/23/2017 17:03:45 05/23/20 17 05/23/2017 phosp horus , blood bilirubin, urine negati ve Not Available [facility] [address], [address], [place], [address], 05/23/2017 17:03:45 05/23/20 17 05/23/2017 phosp horus , blood blood, urine negati ve Not Available [facility] [address], [address], [place], [address], 05/23/2017 17:03:45 05/23/20 17 05/23/2017 phosp horus , blood nitrite, urine negati ve Not Available [facility] [address], [address], [place], [address], 05/23/2017 17:03:45 05/23/20 17 05/23/2017 phosp horus , blood leukocyte esterase negati ve Not Available [facility] [address] [facility] [address], [address], [place], [address], 05/23/2017 17:03:45 05/23/20 17 05/23/2017 phosp horus , blood urobilinogen , urine <2.0 Not Available [facility] [address], [address], [place], [address], 05/23/2017 17:03:45 05/23/20 17 05/23/2017 phosp horus , blood protein, urine, random 9.8 Not Available [facility] [address] [facility] [address], [address], [place], [address], 05/23/2017 17:03:45 05/23/20 17 05/23/2017 phosp horus , blood creatinine, urine, random 24.9 Not Available [facility] [address], [address], [place], [address], 05/23/2017 17:03:45 05/23/20 17 05/23/2017 phosp horus , blood HGB 14.7 Not Available [facility] [address], [address], [place], [address], 05/23/2017 17:03:45 05/23/20 17 05/23/2017 phosp horus , blood HCT 44.5 Not Available [facility] [address], [address], [place], [address], 05/23/2017 17:03:45 05/23/20 17 05/23/2017 phosp horus , blood WBC 4.5 Not Available [facility] [address], [address], [place], [address], 05/23/2017 17:03:45 05/23/20 17 05/23/2017 phosp horus , blood plt 212 Not Available [facility] [address], [address], [place], [address], 05/23/2017 17:03:45 05/23/20 17 05/23/2017 phosp horus , blood sodium, serum 137 Not Available [facility] [address], [address], [place], [address], 05/23/2017 17:03:45 05/23/20 17 05/23/2017 phosp horus , blood potassium, serum 3.5 Not Available [facility] [address], [place], [address], 05/23/2017 17:03:45 05/23/20 17 05/23/2017 phosp horus , blood chloride, serum 99 Not Available [facility] [address], [address], [place], [address], 05/23/2017 17:03:45 05/23/20 17 05/23/2017 phosp horus , blood carbon dioxide 27 Not Available [facility] [address], [address], [place], [address], 05/23/2017 17:03:45 05/23/20 17 05/23/2017 phosp horus , blood calcium, serum 9.0 Not Available [facility] [address], [address], [place], [address], 05/23/2017 17:03:45 05/23/20 17 05/23/2017 phosp horus , blood glucose, serum 101 Not Available [facility] [address], [address], [place], [address], 05/23/2017 17:03:45 05/23/20 17 05/23/2017 phosp horus , blood BUN 24 Not Available [facility] [address] [facility] [address], [address], [place], [address], 05/23/2017 17:03:45 05/23/20 17 05/23/2017 phosp horus , blood creatinine 1.60 Not Available [facility] 61 [facility] [address], [address], [place], [address], 05/23/2017 17:03:45 05/23/20 17 05/23/2017 phosp horus , blood GFR 44 Not Available [facility] [address] [facility] [address], [address], [place], [address], 05/23/2017 17:03:45 05/23/20 17 05/23/2017 phosp horus , blood bilirubin, total 0.5 Not Available [facility] [address] [facility] [address], [address], [place], [address], 05/23/2017 17:03:45 05/23/20 17 05/23/2017 phosp horus , blood alkaline phosphatase 43 Not Available [facility] [address] [facility] [address], [address], [place], [address], 05/23/2017 17:03:45 05/23/20 17 05/23/2017 phosp horus , blood albumin, serum 4.1 Not Available [facility] [address] [facility] [address], [place], [address], 05/23/2017 17:03:45 05/23/20 17 05/23/2017 phosp horus , blood protein, total, serum 7.0 Not Available [facility] [address] [facility] [address], [address], [place], [address], 05/23/2017 17:03:45 05/23/20 17 05/23/2017 phosp horus , blood magnesium 1.8 Not Available [facility] [address] [facility] [address], [address], [place], [address], 05/23/2017 17:03:45 05/23/20 17 05/23/2017 phosp horus , blood phosphorus 2.8 Not Available [facility] [address] [facility] [address], [address], [place], [address], 05/23/2017 17:03:45 05/23/20 17 05/23/2017 phosp horus , blood uric acid 6.1 Not Available [facility] [address] [facility] [address], [address], [place], [address], 05/23/2017 17:03:45 05/23/20 17 05/23/2017 phosp horus , blood PSA, total 0.762 Not Available [facility] [address] [facility] [address], [address], [place], [address], 05/23/2017 17:03:45 05/23/20 17 05/23/2017 magne sium, blood color, urine straw Not Available [facility] [address] [facility] [address], [address], [place], [address], 05/23/2017 17:03:45 05/23/20 17 05/23/2017 magne sium, blood clarity, urine clear Not Available [facility] [address] [facility] [address], [address], [place], [address], 05/23/2017 17:03:45 05/23/20 17 05/23/2017 magne sium, blood pH, urine 1.006 Not Available [facility] [address] [facility] [address], [address], [place], [address], 05/23/2017 17:03:45 05/23/20 17 05/23/2017 magne sium, blood protein, urine negati ve Not Available [facility] [address], [place], [address], 05/23/2017 17:03:45 05/23/20 17 05/23/2017 magne sium, blood glucose, urine negati ve Not Available [facility] [address], [place], [address], 05/23/2017 17:03:45 05/23/20 17 05/23/2017 magne sium, blood ketones, urine negati ve Not Available [facility] [address], [place], [address], 05/23/2017 17:03:45 05/23/20 17 05/23/2017 magne sium, blood bilirubin, urine negati ve Not Available [facility] [address], [address], [place], [address], 05/23/2017 17:03:45 05/23/20 17 05/23/2017 magne sium, blood blood, urine negati ve Not Available [facility] [address], [place], [address], 05/23/2017 17:03:45 05/23/20 17 05/23/2017 magne sium, blood nitrite, urine negati ve Not Available [facility] [address], [place], [address], 05/23/2017 17:03:45 05/23/20 17 05/23/2017 magne sium, blood leukocyte esterase negati ve Not Available [facility] [address], [place], [address], 05/23/2017 17:03:45 05/23/20 17 05/23/2017 magne sium, blood urobilinogen , urine <2.0 Not Available [facility] [address] [facility] [address], [address], [place], [address], 05/23/2017 17:03:45 05/23/20 17 05/23/2017 magne sium, blood protein, urine, random 9.8 Not Available [facility] [address] [facility] [address], [address], [place], [address], 05/23/2017 17:03:45 05/23/20 17 05/23/2017 magne sium, blood creatinine, urine, random 24.9 Not Available [facility] [address] [facility] [address], [address], [place], [address], 05/23/2017 17:03:45 05/23/20 17 05/23/2017 magne sium, blood HGB 14.7 Not Available [facility] [address] [facility] [address], [place], [address], 05/23/2017 17:03:45 05/23/20 17 05/23/2017 magne sium, blood HCT 44.5 Not Available [facility] [address] [facility] [address], [address], [place], [address], 05/23/2017 17:03:45 05/23/20 17 05/23/2017 magne sium, blood WBC 4.5 Not Available [facility] [address] [facility] [address], [place], [address], 05/23/2017 17:03:45 05/23/20 17 05/23/2017 magne sium, blood plt 212 Not Available [facility] [address] [facility] [address], [place], [address], 05/23/2017 17:03:45 05/23/20 17 05/23/2017 magne sium, blood sodium, serum 137 Not Available [facility] [address] [facility], [address], [place], [address], 05/23/2017 17:03:45 05/23/20 17 05/23/2017 magne sium, blood potassium, serum 3.5 Not Available [facility] [address], [address], [place], [address], 05/23/2017 17:03:45 05/23/20 17 05/23/2017 magne sium, blood chloride, serum 99 Not Available [facility] [address] [facility] [address], [address], [place], [address], 05/23/2017 17:03:45 05/23/20 17 05/23/2017 magne sium, blood carbon dioxide 27 Not Available [facility] [address] [facility], [address], [place], [address], 05/23/2017 17:03:45 05/23/20 17 05/23/2017 magne sium, blood calcium, serum 9.0 Not Available [facility] [address], [address], [place], [address], 05/23/2017 17:03:45 05/23/20 17 05/23/2017 magne sium, blood glucose, serum 101 Not Available [facility] [address], [address], [place], [address], 05/23/2017 17:03:45 05/23/20 17 05/23/2017 magne sium, blood BUN 24 Not Available [facility] [address], [address], [place], [address], 05/23/2017 17:03:45 05/23/20 17 05/23/2017 magne sium, blood creatinine 1.60 Not Available [facility] 61 [facility] [address], [address], [place], [address], 05/23/2017 17:03:45 05/23/20 17 05/23/2017 magne sium, blood GFR 44 Not Available [facility] [address] [facility] [address], [place], [address], 05/23/2017 17:03:45 05/23/20 17 05/23/2017 magne sium, blood bilirubin, total 0.5 Not Available [facility] [address] [facility] [address], [place], [address], 05/23/2017 17:03:45 05/23/20 17 05/23/2017 magne sium, blood alkaline phosphatase 43 Not Available [facility] [address] [facility] [address], [place], [address], 05/23/2017 17:03:45 05/23/20 17 05/23/2017 magne sium, blood albumin, serum 4.1 Not Available [facility] [address] [facility] [address], [place], [address], 05/23/2017 17:03:45 05/23/20 17 05/23/2017 magne sium, blood protein, total, serum 7.0 Not Available [facility] [address], [place], [address], 05/23/2017 17:03:45 05/23/20 17 05/23/2017 magne sium, blood magnesium 1.8 Not Available [facility] [address] [facility] [address], [place], [address], 05/23/2017 17:03:45 05/23/20 17 05/23/2017 magne sium, blood phosphorus 2.8 Not Available [facility] [address] [facility] [address], [place], [address], 05/23/2017 17:03:45 05/23/20 17 05/23/2017 magne sium, blood uric acid 6.1 Not Available [facility] 61 [facility] [address], [address], [place], [address], 05/23/2017 17:03:45 05/23/20 17 05/23/2017 magne sium, blood PSA, total 0.762 Not Available [facility] [address] [facility] [address], [address], [place], [address], 05/23/2017 17:03:45 05/23/20 17 05/23/2017 CMP, serum or plasm a color, urine straw Not Available [facility] [address], [address], [place], [address], 05/23/2017 17:03:45 05/23/20 17 05/23/2017 CMP, serum or plasm a clarity, urine clear Not Available [facility] [address] [facility] [address], [address], [place], [address], 05/23/2017 17:03:45 05/23/20 17 05/23/2017 CMP, serum or plasm a pH, urine 1.006 Not Available [facility] [address] [facility] [address], [place], [address], 05/23/2017 17:03:45 05/23/20 17 05/23/2017 CMP, serum or plasm a protein, urine negati ve Not Available [facility] [address], [address], [place], [address], 05/23/2017 17:03:45 05/23/20 17 05/23/2017 CMP, serum or plasm a glucose, urine negati ve Not Available [facility] [address] [facility] [address], [place], [address], 05/23/2017 17:03:45 05/23/20 17 05/23/2017 CMP, serum or plasm a ketones, urine negati ve Not Available [facility] [address] [facility] [address], [address], [place], [address], 05/23/2017 17:03:45 05/23/20 17 05/23/2017 CMP, serum or plasm a bilirubin, urine negati ve Not Available [facility] [address] [facility] [address], [place], [address], 05/23/2017 17:03:45 05/23/20 17 05/23/2017 CMP, serum or plasm a blood, urine negati ve Not Available [facility] [address] [facility] [address], [place], [address], 05/23/2017 17:03:45 05/23/20 17 05/23/2017 CMP, serum or plasm a nitrite, urine negati ve Not Available [facility] [address] [facility] [address], [place], [address], 05/23/2017 17:03:45 05/23/20 17 05/23/2017 CMP, serum or plasm a leukocyte esterase negati ve Not Available [facility] [address] [facility] [address], [place], [address], 05/23/2017 17:03:45 05/23/20 17 05/23/2017 CMP, serum or plasm a urobilinogen , urine <2.0 Not Available [facility] [address] [facility] [address], [place], [address], 05/23/2017 17:03:45 05/23/20 17 05/23/2017 CMP, serum or plasm a protein, urine, random 9.8 Not Available [facility] [address] [facility] [address], [place], [address], 05/23/2017 17:03:45 05/23/20 17 05/23/2017 CMP, serum or plasm a creatinine, urine, random 24.9 Not Available [facility] [address] [facility] [address], [address], [place], [address], 05/23/2017 17:03:45 05/23/20 17 05/23/2017 CMP, serum or plasm a HGB 14.7 Not Available [facility] [address] [facility] [address], [place], [address], 05/23/2017 17:03:45 05/23/20 17 05/23/2017 CMP, serum or plasm a HCT 44.5 Not Available [facility] [address] [facility] [facility] [address], [place], [address], 05/23/2017 17:03:45 05/23/20 17 05/23/2017 CMP, serum or plasm a WBC 4.5 Not Available [facility] [address] [facility] [facility] [address], [place], [address], 05/23/2017 17:03:45 05/23/20 17 05/23/2017 CMP, serum or plasm a plt 212 Not Available [facility] [address] [facility] [address], [place], [address], 05/23/2017 17:03:45 05/23/20 17 05/23/2017 CMP, serum or plasm a sodium, serum 137 Not Available [facility] [address] [facility] [facility] [address], [place], [address], 05/23/2017 17:03:45 05/23/20 17 05/23/2017 CMP, serum or plasm a potassium, serum 3.5 Not Available [facility] [address] [facility] [facility] [address], [place], [address], 05/23/2017 17:03:45 05/23/20 17 05/23/2017 CMP, serum or plasm a chloride, serum 99 Not Available [facility] [address] [facility] [address], [address], [place], [address], 05/23/2017 17:03:45 05/23/20 17 05/23/2017 CMP, serum or plasm a carbon dioxide 27 Not Available [facility] [address] [address], [place], [address], 05/23/2017 17:03:45 05/23/20 17 05/23/2017 CMP, serum or plasm a calcium, serum 9.0 Not Available [facility] [address] [facility] [address], [address], [place], [address], 05/23/2017 17:03:45 05/23/20 17 05/23/2017 CMP, serum or plasm a glucose, serum 101 Not Available [facility] [address], [place], [address], 05/23/2017 17:03:45 05/23/20 17 05/23/2017 CMP, serum or plasm a BUN 24 Not Available [facility] [address] [facility] [address], [place], [address], 05/23/2017 17:03:45 05/23/20 17 05/23/2017 CMP, serum or plasm a creatinine 1.60 Not Available [facility] [address] [facility] [address], [place], [address], 05/23/2017 17:03:45 05/23/20 17 05/23/2017 CMP, serum or plasm a GFR 44 Not Available [facility] [address], [place], [address], 05/23/2017 17:03:45 05/23/20 17 05/23/2017 CMP, serum or plasm a bilirubin, total 0.5 Not Available [address], [place], [address], 05/23/2017 17:03:45 05/23/20 17 05/23/2017 CMP, serum or plasm a alkaline phosphatase 43 Not Available [facility] [address] [place] [address] [address], [address], [place], [address], 05/23/2017 17:03:45 05/23/20 17 05/23/2017 CMP, serum or plasm a albumin, serum 4.1 Not Available [facility] [address], [address], [place], [address], 05/23/2017 17:03:45 05/23/20 17 05/23/2017 CMP, serum or plasm a protein, total, serum 7.0 Not Available [address], [place], [address], 05/23/2017 17:03:45 05/23/20 17 05/23/2017 CMP, serum or plasm a magnesium 1.8 Not Available [address], [address], [place], [address], 05/23/2017 17:03:45 05/23/20 17 05/23/2017 CMP, serum or plasm a phosphorus 2.8 Not Available [address], [address], [place], [address], 05/23/2017 17:03:45 05/23/20 17 05/23/2017 CMP, serum or plasm a uric acid 6.1 Not Available [address], [place], [address], 05/23/2017 17:03:45 05/23/20 17 05/23/2017 CMP, serum or plasm a PSA, total 0.762 Not Available [facility] [address], [place], [address], 05/23/2017 17:03:45 05/23/20 17 05/23/2017 CBC w/ auto diff color, urine straw Not Available [facility] 61 [facility] [address], [place], [address], 05/23/2017 17:03:45 05/23/20 17 05/23/2017 CBC w/ auto diff clarity, urine clear Not Available [facility] [address], [place], [address], 05/23/2017 17:03:45 05/23/20 17 05/23/2017 CBC w/ auto diff pH, urine 1.006 Not Available [facility] [address], [place], [address], 05/23/2017 17:03:45 05/23/20 17 05/23/2017 CBC w/ auto diff protein, urine negati ve Not Available [facility] [address], [place], [address], 05/23/2017 17:03:45 05/23/20 17 05/23/2017 CBC w/ auto diff glucose, urine negati ve Not Available [facility] [address], [place], [address], 05/23/2017 17:03:45 05/23/20 17 05/23/2017 CBC w/ auto diff ketones, urine negati ve Not Available [facility] [address], [place], [address], 05/23/2017 17:03:45 05/23/20 17 05/23/2017 CBC w/ auto diff bilirubin, urine negati ve Not Available [facility] [address] [facility] [address], [place], [address], 05/23/2017 17:03:45 05/23/20 17 05/23/2017 CBC w/ auto diff blood, urine negati ve Not Available [facility] [address] [facility] [address], [place], [address], 05/23/2017 17:03:45 05/23/20 17 05/23/2017 CBC w/ auto diff nitrite, urine negati ve Not Available [facility] [address], [place], [address], 05/23/2017 17:03:45 05/23/20 17 05/23/2017 CBC w/ auto diff leukocyte esterase negati ve Not Available [facility] [facility] [address], [place], [address], 05/23/2017 17:03:45 05/23/20 17 05/23/2017 CBC w/ auto diff urobilinogen , urine <2.0 Not Available [facility] [address], [address], [place], [address], 05/23/2017 17:03:45 05/23/20 17 05/23/2017 CBC w/ auto diff protein, urine, random 9.8 Not Available [facility] [address], [address], [place], [address], 05/23/2017 17:03:45 05/23/20 17 05/23/2017 CBC w/ auto diff creatinine, urine, random 24.9 Not Available [facility] [address], [address], [place], [address], 05/23/2017 17:03:45 05/23/20 17 05/23/2017 CBC w/ auto diff HGB 14.7 Not Available [facility] 61 [facility] [address], [place], [address], 05/23/2017 17:03:45 05/23/20 17 05/23/2017 CBC w/ auto diff HCT 44.5 Not Available [facility] 61 [facility] [address], [address], [place], [address], 05/23/2017 17:03:45 05/23/20 17 05/23/2017 CBC w/ auto diff WBC 4.5 Not Available [facility] 61 [facility] [address], [address], [place], [address], 05/23/2017 17:03:45 05/23/20 17 05/23/2017 CBC w/ auto diff plt 212 Not Available [facility] 61 [facility] [address], [address], [place], [address], 05/23/2017 17:03:45 05/23/20 17 05/23/2017 CBC w/ auto diff sodium, serum 137 Not Available [facility] 61 [facility] [address], [address], [place], [address], 05/23/2017 17:03:45 05/23/20 17 05/23/2017 CBC w/ auto diff potassium, serum 3.5 Not Available [facility] 61 [facility] [address], [address], [place], [address], 05/23/2017 17:03:45 05/23/20 17 05/23/2017 CBC w/ auto diff chloride, serum 99 Not Available [facility] 61 [facility] [address], [address], [place], [address], 05/23/2017 17:03:45 05/23/20 17 05/23/2017 CBC w/ auto diff carbon dioxide 27 Not Available [facility] 61 [facility] [address], [address], [place], [address], 05/23/2017 17:03:45 05/23/20 17 05/23/2017 CBC w/ auto diff calcium, serum 9.0 Not Available [facility] [address] [facility] [address], [place], [address], 05/23/2017 17:03:45 05/23/20 17 05/23/2017 CBC w/ auto diff glucose, serum 101 Not Available [facility] [address], [place], [address], 05/23/2017 17:03:45 05/23/20 17 05/23/2017 CBC w/ auto diff BUN 24 Not Available [facility] 61 [facility] [address], [address], [place], [address], 05/23/2017 17:03:45 05/23/20 17 05/23/2017 CBC w/ auto diff creatinine 1.60 Not Available [facility], [place], [address], 05/23/2017 17:03:45 05/23/20 17 05/23/2017 CBC w/ auto diff GFR 44 Not Available [facility] 61 [facility] [address], [address], [place], [address], 05/23/2017 17:03:45 05/23/20 17 05/23/2017 CBC w/ auto diff bilirubin, total 0.5 Not Available [facility] [address] [facility] [address], [place], [address], 05/23/2017 17:03:45 05/23/20 17 05/23/2017 CBC w/ auto diff alkaline phosphatase 43 Not Available [facility] [address], [place], [address], 05/23/2017 17:03:45 05/23/20 17 05/23/2017 CBC w/ auto diff albumin, serum 4.1 Not Available [address], [address], [place], [address], 05/23/2017 17:03:45 05/23/20 17 05/23/2017 CBC w/ auto diff protein, total, serum 7.0 Not Available [address], [address], [place], [address], 05/23/2017 17:03:45 05/23/20 17 05/23/2017 CBC w/ auto diff magnesium 1.8 Not Available [facility] [address], [address], [place], [address], 05/23/2017 17:03:45 05/23/20 17 05/23/2017 CBC w/ auto diff phosphorus 2.8 Not Available [address], [address], [place], [address], 05/23/2017 17:03:45 05/23/20 17 05/23/2017 CBC w/ auto diff uric acid 6.1 Not Available [address], [address], [place], [address], 05/23/2017 17:03:45 05/23/20 17 05/23/2017 CBC w/ auto diff PSA, total 0.762 Not Available [address], [address], [place], [address], 05/23/2017 17:03:45 05/23/20 17 05/23/2017 prote in:cr eatin ine ratio , urine color, urine straw Not Available [facility] 61 [facility] [address], [address], [place], [address], 05/23/2017 17:03:44 05/23/20 17 05/23/2017 prote in:cr eatin ine ratio , urine clarity, urine clear Not Available [facility] [address] [facility] [address], [place], [address], 05/23/2017 17:03:44 05/23/20 17 05/23/2017 prote in:cr eatin ine ratio , urine pH, urine 1.006 Not Available [facility] [address] [facility] [address], [place], [address], 05/23/2017 17:03:44 05/23/20 17 05/23/2017 prote in:cr eatin ine ratio , urine protein, urine negati ve Not Available [facility] 61 [facility] [address], [address], [place], [address], 05/23/2017 17:03:44 05/23/20 17 05/23/2017 prote in:cr eatin ine ratio , urine glucose, urine negati ve Not Available [facility] [address] [facility] [address], [place], [address], 05/23/2017 17:03:44 05/23/20 17 05/23/2017 prote in:cr eatin ine ratio , urine ketones, urine negati ve Not Available [facility] [address] [facility] [address], [address], [place], [address], 05/23/2017 17:03:44 05/23/20 17 05/23/2017 prote in:cr eatin ine ratio , urine bilirubin, urine negati ve Not Available [facility] [address] [facility] [address], [place], [address], 05/23/2017 17:03:44 05/23/20 17 05/23/2017 prote in:cr eatin ine ratio , urine blood, urine negati ve Not Available [facility] [address] [facility] [address], [place], [address], 05/23/2017 17:03:44 05/23/20 17 05/23/2017 prote in:cr eatin ine ratio , urine nitrite, urine negati ve Not Available [facility] [address], [place], [address], 05/23/2017 17:03:44 05/23/20 17 05/23/2017 prote in:cr eatin ine ratio , urine leukocyte esterase negati ve Not Available [facility] 61 [facility] [address], [place], [address], 05/23/2017 17:03:44 05/23/20 17 05/23/2017 prote in:cr eatin ine ratio , urine urobilinogen , urine <2.0 Not Available [facility] [address] [facility] [address], [place], [address], 05/23/2017 17:03:44 05/23/20 17 05/23/2017 prote in:cr eatin ine ratio , urine protein, urine, random 9.8 Not Available [facility] [address], [address], [place], [address], 05/23/2017 17:03:44 05/23/20 17 05/23/2017 prote in:cr eatin ine ratio , urine creatinine, urine, random 24.9 Not Available [facility] [address], [address], [place], [address], 05/23/2017 17:03:44 05/23/20 17 05/23/2017 prote in:cr eatin ine ratio , urine HGB 14.7 Not Available [facility] [address], [place], [address], 05/23/2017 17:03:44 05/23/20 17 05/23/2017 prote in:cr eatin ine ratio , urine HCT 44.5 Not Available [facility] [address], [place], [address], 05/23/2017 17:03:44 05/23/20 17 05/23/2017 prote in:cr eatin ine ratio , urine WBC 4.5 Not Available [facility] 61 [facility] [address], [address], [place], [address], 05/23/2017 17:03:44 05/23/20 17 05/23/2017 prote in:cr eatin ine ratio , urine plt 212 Not Available [facility] 61 [facility] [address], [address], [place], [address], 05/23/2017 17:03:44 05/23/20 17 05/23/2017 prote in:cr eatin ine ratio , urine sodium, serum 137 Not Available [facility] 61 [facility] [address], [address], [place], [address], 05/23/2017 17:03:44 05/23/20 17 05/23/2017 prote in:cr eatin ine ratio , urine potassium, serum 3.5 Not Available [facility] 61 [facility] [address], [address], [place], [address], 05/23/2017 17:03:44 05/23/20 17 05/23/2017 prote in:cr eatin ine ratio , urine chloride, serum 99 Not Available [facility] 61 [facility] [address], [address], [place], [address], 05/23/2017 17:03:44 05/23/20 17 05/23/2017 prote in:cr eatin ine ratio , urine carbon dioxide 27 Not Available [facility] 61 [facility] [address], [address], [place], [address], 05/23/2017 17:03:44 05/23/20 17 05/23/2017 prote in:cr eatin ine ratio , urine calcium, serum 9.0 Not Available [facility] 61 [facility] [address], [address], [place], [address], 05/23/2017 17:03:44 05/23/20 17 05/23/2017 prote in:cr eatin ine ratio , urine glucose, serum 101 Not Available [facility] 61 [facility] [address], [address], [place], [address], 05/23/2017 17:03:44 05/23/20 17 05/23/2017 prote in:cr eatin ine ratio , urine BUN 24 Not Available [facility] 61 [facility] [address], [address], [place], [address], 05/23/2017 17:03:44 05/23/20 17 05/23/2017 prote in:cr eatin ine ratio , urine creatinine 1.60 Not Available [facility] 61 [facility] [address], [address], [place], [address], 05/23/2017 17:03:44 05/23/20 17 05/23/2017 prote in:cr eatin ine ratio , urine GFR 44 Not Available [facility] 61 [facility] [address], [place], [address], 05/23/2017 17:03:44 05/23/20 17 05/23/2017 prote in:cr eatin ine ratio , urine bilirubin, total 0.5 Not Available [facility] 61 [facility] [address], [address], [place], [address], 05/23/2017 17:03:44 05/23/20 17 05/23/2017 prote in:cr eatin ine ratio , urine alkaline phosphatase 43 Not Available [facility] 61 [facility] [address], [address], [place], [address], 05/23/2017 17:03:44 05/23/20 17 05/23/2017 prote in:cr eatin ine ratio , urine albumin, serum 4.1 Not Available [facility] 61 [facility] [address], [address], [place], [address], 05/23/2017 17:03:44 05/23/20 17 05/23/2017 prote in:cr eatin ine ratio , urine protein, total, serum 7.0 Not Available [facility] 61 [facility] [address], [address], [place], [address], 05/23/2017 17:03:44 05/23/20 17 05/23/2017 prote in:cr eatin ine ratio , urine magnesium 1.8 Not Available [facility] 61 [facility] [address], [address], [place], [address], 05/23/2017 17:03:44 05/23/20 17 05/23/2017 prote in:cr eatin ine ratio , urine phosphorus 2.8 Not Available [facility] [address], [place], [address], 05/23/2017 17:03:44 05/23/20 17 05/23/2017 prote in:cr eatin ine ratio , urine uric acid 6.1 Not Available [facility] 61 [facility] [address], [address], [place], [address], 05/23/2017 17:03:44 05/23/20 17 05/23/2017 prote in:cr eatin ine ratio , urine PSA, total 0.762 Not Available [facility] 61 [facility] [address], [address], [place], [address], 05/23/2017 17:03:44 05/23/20 17 05/23/2017 urina lysis , dipst ick, refle x micro color, urine straw Not Available [facility] [address], [place], [address], 05/23/2017 15:47:58 05/23/20 17 05/23/2017 urina lysis , dipst ick, refle x micro clarity, urine clear Not Available [facility] [address], [address], [place], [address], 05/23/2017 15:47:58 05/23/20 17 05/23/2017 urina lysis , dipst ick, refle x micro pH, urine 1.006 Not Available [facility] 61 [facility] [address], [address], [place], [address], 05/23/2017 15:47:58 05/23/20 17 05/23/2017 urina lysis , dipst ick, refle x micro protein, urine negati ve Not Available [address], [address], [place], [address], 05/23/2017 15:47:58 05/23/20 17 05/23/2017 urina lysis , dipst ick, refle x micro glucose, urine negati ve Not Available [facility] [address] [facility] [address], [address], [place], [address], 05/23/2017 15:47:58 05/23/20 17 05/23/2017 urina lysis , dipst ick, refle x micro ketones, urine negati ve Not Available [facility] [address] [place] [address] [address], [address], [place], [address], 05/23/2017 15:47:58 05/23/20 17 05/23/2017 urina lysis , dipst ick, refle x micro bilirubin, urine negati ve Not Available [facility] [address] [facility] [address], [address], [place], [address], 05/23/2017 15:47:58 05/23/20 17 05/23/2017 urina lysis , dipst ick, refle x micro blood, urine negati ve Not Available [facility] 61 [facility] [address], [address], [place], [address], 05/23/2017 15:47:58 05/23/20 17 05/23/2017 urina lysis , dipst ick, refle x micro nitrite, urine negati ve Not Available [facility] [address] [facility] [address], [address], [place], [address], 05/23/2017 15:47:58 05/23/20 17 05/23/2017 urina lysis , dipst ick, refle x micro leukocyte esterase negati ve Not Available [facility] [address] [facility] [address], [place], [address], 05/23/2017 15:47:58 05/23/20 17 05/23/2017 urina lysis , dipst ick, refle x micro urobilinogen , urine <2.0 Not Available [address], [address], [place], [address], 05/23/2017 15:47:58 05/23/20 17 05/23/2017 urina lysis , dipst ick, refle x micro protein, urine, random 9.8 Not Available [address], [address], [place], [address], 05/23/2017 15:47:58 05/23/20 17 05/23/2017 urina lysis , dipst ick, refle x micro creatinine, urine, random 24.9 Not Available [facility] [address] [facility] [address], [address], [place], [address], 05/23/2017 15:47:58 05/23/20 17 05/23/2017 urina lysis , dipst ick, refle x micro HGB 14.7 Not Available [facility] [address] [facility] [address], [address], [place], [address], 05/23/2017 15:47:58 05/23/20 17 05/23/2017 urina lysis , dipst ick, refle x micro HCT 44.5 Not Available [facility] [address], [place], [address], 05/23/2017 15:47:58 05/23/20 17 05/23/2017 urina lysis , dipst ick, refle x micro WBC 4.5 Not Available [facility] 61 [facility] [address], [place], [address], 05/23/2017 15:47:58 05/23/20 17 05/23/2017 urina lysis , dipst ick, refle x micro plt 212 Not Available [facility] 61 [facility] [address], [address], [place], [address], 05/23/2017 15:47:58 05/23/20 17 05/23/2017 urina lysis , dipst ick, refle x micro sodium, serum 137 Not Available [facility] [address], [address], [place], [address], 05/23/2017 15:47:58 05/23/20 17 05/23/2017 urina lysis , dipst ick, refle x micro potassium, serum 3.5 Not Available [facility] [address], [address], [place], [address], 05/23/2017 15:47:58 05/23/20 17 05/23/2017 urina lysis , dipst ick, refle x micro chloride, serum 99 Not Available [facility] 61 [facility] [address], [address], [place], [address], 05/23/2017 15:47:58 05/23/20 17 05/23/2017 urina lysis , dipst ick, refle x micro carbon dioxide 27 Not Available [facility] 61 [facility] [address], [address], [place], [address], 05/23/2017 15:47:58 05/23/20 17 05/23/2017 urina lysis , dipst ick, refle x micro calcium, serum 9.0 Not Available [facility] [address] [facility] [address], [place], [address], 05/23/2017 15:47:58 05/23/20 17 05/23/2017 urina lysis , dipst ick, refle x micro glucose, serum 101 Not Available [facility] 61 [facility] [address], [place], [address], 05/23/2017 15:47:58 05/23/20 17 05/23/2017 urina lysis , dipst ick, refle x micro BUN 24 Not Available [facility] 61 [facility] [address], [place], [address], 05/23/2017 15:47:58 05/23/20 17 05/23/2017 urina lysis , dipst ick, refle x micro creatinine 1.60 Not Available [facility] [address] [facility] [address], [place], [address], 05/23/2017 15:47:58 05/23/20 17 05/23/2017 urina lysis , dipst ick, refle x micro GFR 44 Not Available [facility] 61 [facility] [address], [place], [address], 05/23/2017 15:47:58 05/23/20 17 05/23/2017 urina lysis , dipst ick, refle x micro bilirubin, total 0.5 Not Available [facility] [address] [facility] [address], [place], [address], 05/23/2017 15:47:58 05/23/20 17 05/23/2017 urina lysis , dipst ick, refle x micro alkaline phosphatase 43 Not Available [facility] [address] [place], [place] [address]za [facility] [address], [address], [place], [address], 05/23/2017 15:47:58 05/23/20 17 05/23/2017 urina lysis , dipst ick, refle x micro albumin, serum 4.1 Not Available [address] [facility] [address], [place], [address], 05/23/2017 15:47:58 05/23/20 17 05/23/2017 urina lysis , dipst ick, refle x micro protein, total, serum 7.0 Not Available [address] [facility] [address], [place], [address], 05/23/2017 15:47:58 05/23/20 17 05/23/2017 urina lysis , dipst ick, refle x micro magnesium 1.8 Not Available [address] [facility] [address], [address], [place], [address], 05/23/2017 15:47:58 05/23/20 17 05/23/2017 urina lysis , dipst ick, refle x micro phosphorus 2.8 Not Available [address] [facility] [address], [address], [place], [address], 05/23/2017 15:47:58 05/23/20 17 05/23/2017 urina lysis , dipst ick, refle x micro uric acid 6.1 Not Available [address] [facility] [address], [place], [address], 05/23/2017 15:47:58 05/23/20 17 05/23/2017 urina lysis , dipst ick, refle x micro PSA, total 0.762 Not Available [facility] 61 [facility] [address], [place], [address], 05/23/2017 15:47:58 11/16/19 18 11/15/2017 urina lysis , dipst ick, refle x micro color, urine light, yellow Not Available [facility] [address] [facility] [address], [place], [address], 11/18/2017 15:55:55 11/16/19 18 11/15/2017 urina lysis , dipst ick, refle x micro clarity, urine clear Not Available [facility] [address] [facility] [address], [place], [address], 11/18/2017 15:55:55 11/16/19 18 11/15/2017 urina lysis , dipst ick, refle x micro pH, urine 6.0 Not Available [facility] [address], [place], [address], 11/18/2017 15:55:55 11/16/19 18 11/15/2017 urina lysis , dipst ick, refle x micro specific gravity, urine 1.010 Not Available [facility] [address], [place], [address], 11/18/2017 15:55:55 11/16/19 18 11/15/2017 urina lysis , dipst ick, refle x micro protein, total, urine 30 Not Available [facility] [address] [facility] [address], [place], [address], 11/18/2017 15:55:55 11/16/19 18 11/15/2017 urina lysis , dipst ick, refle x micro glucose, urine negati ve Not Available [facility] [address] [facility] [address], [place], [address], 11/18/2017 15:55:55 11/16/19 18 11/15/2017 urina lysis , dipst ick, refle x micro ketones, urine negati ve Not Available [facility] 61 [facility] [address], [place], [address], 11/18/2017 15:55:55 11/16/19 18 11/15/2017 urina lysis , dipst ick, refle x micro bilirubin, urine negati ve Not Available [facility] 61 [facility] [address], [place], [address], 11/18/2017 15:55:55 11/16/19 18 11/15/2017 urina lysis , dipst ick, refle x micro blood, urine negati ve Not Available [facility] [address] [facility] [address], [place], [address], 11/18/2017 15:55:55 11/16/19 18 11/15/2017 urina lysis , dipst ick, refle x micro nitrite, urine negati ve Not Available [facility] [address] [facility] [address], [place], [address], 11/18/2017 15:55:55 11/16/19 18 11/15/2017 urina lysis , dipst ick, refle x micro leukocyte esterase, urine negati ve Not Available [facility] [address] [facility] [address], [place], [address], 11/18/2017 15:55:55 11/16/19 18 11/15/2017 urina lysis , dipst ick, refle x micro urobilinogen , urine <2.0 Not Available [facility] [address] [facility] [address], [place], [address], 11/18/2017 15:55:55 11/16/19 18 11/15/2017 urina lysis , dipst ick, refle x micro WBC casts, urine <1 Not Available [address], [place], [address], 11/18/2017 15:55:55 11/16/19 18 11/15/2017 urina lysis , dipst ick, refle x micro red blood cells, urine 0 Not Available [facility] [address] [address], [place], [address], 11/18/2017 15:55:55 11/16/19 18 11/15/2017 urina lysis , dipst ick, refle x micro epithelial cells, urine <1 Not Available [address], [place], [address], 11/18/2017 15:55:55 11/16/19 18 11/15/2017 urina lysis , dipst ick, refle x micro protein, urine, random 10.1 Not Available [address], [place], [address], 11/18/2017 15:55:55 11/16/19 18 11/15/2017 urina lysis , dipst ick, refle x micro creatinine, urine, random 48.7 Not Available [address], [place], [address], 11/18/2017 15:55:55 11/16/19 18 11/15/2017 urina lysis , dipst ick, refle x micro HGB 15.3 Not Available [address], [place], [address], 11/18/2017 15:55:55 11/16/19 18 11/15/2017 urina lysis , dipst ick, refle x micro HCT 44.1 Not Available [address], [place], [address], 11/18/2017 15:55:55 11/16/19 18 11/15/2017 urina lysis , dipst ick, refle x micro WBC 6.6 Not Available [facility] [address] [facility] [address], [place], [address], 11/18/2017 15:55:55 11/16/19 18 11/15/2017 urina lysis , dipst ick, refle x micro plt 275 Not Available [facility] 61 [facility] [address], [address], [place], [address], 11/18/2017 15:55:55 11/16/19 18 11/15/2017 urina lysis , dipst ick, refle x micro sodium, serum 137 Not Available [facility] 61 [facility] [address], [address], [place], [address], 11/18/2017 15:55:55 11/16/19 18 11/15/2017 urina lysis , dipst ick, refle x micro potassium, seerum 4.0 Not Available [facility] 61 [facility] [address], [address], [place], [address], 11/18/2017 15:55:55 11/16/19 18 11/15/2017 urina lysis , dipst ick, refle x micro chloride, serum 96 Not Available [facility] [address] [facility] [address], [address], [place], [address], 11/18/2017 15:55:55 11/16/19 18 11/15/2017 urina lysis , dipst ick, refle x micro carbon dioxide 27 Not Available [facility] [address] [facility] [address], [address], [place], [address], 11/18/2017 15:55:55 11/16/19 18 11/15/2017 urina lysis , dipst ick, refle x micro calcium, serum 9.5 Not Available [facility] [address], [address], [place], [address], 11/18/2017 15:55:55 11/16/19 18 11/15/2017 urina lysis , dipst ick, refle x micro glucose, serum 92 Not Available [facility] [address], [address], [place], [address], 11/18/2017 15:55:55 11/16/19 18 11/15/2017 urina lysis , dipst ick, refle x micro BUN 27 Not Available [facility] [address], [address], [place], [address], 11/18/2017 15:55:55 11/16/19 18 11/15/2017 urina lysis , dipst ick, refle x micro creatinine 1.63 Not Available [facility] [address], [address], [place], [address], 11/18/2017 15:55:55 11/16/19 18 11/15/2017 urina lysis , dipst ick, refle x micro GFR 43 Not Available [facility] [address], [address], [place], [address], 11/18/2017 15:55:55 11/16/19 18 11/15/2017 urina lysis , dipst ick, refle x micro bilirubin, total 0.6 Not Available [facility] [address], [place], [address], 11/18/2017 15:55:55 11/16/19 18 11/15/2017 urina lysis , dipst ick, refle x micro albumin, serum 4.5 Not Available [facility] [address] [facility] [address], [address], [place], [address], 11/18/2017 15:55:55 11/16/19 18 11/15/2017 urina lysis , dipst ick, refle x micro protein, total, serum 7.5 Not Available [address], [address], [place], [address], 11/18/2017 15:55:55 11/16/19 18 11/15/2017 urina lysis , dipst ick, refle x micro magnesium 1.8 Not Available [address], [address], [place], [address], 11/18/2017 15:55:55 11/16/19 18 11/15/2017 urina lysis , dipst ick, refle x micro phosphorus 3.6 Not Available [address], [address], [place], [address], 11/18/2017 15:55:55 11/16/19 18 11/15/2017 urina lysis , dipst ick, refle x micro uric acid 5.6 Not Available [address], [address], [place], [address], 11/18/2017 15:55:55 11/16/19 18 11/15/2017 uric acid, serum or plasm a color, urine light, yellow Not Available [address], [address], [place], [address], 11/19/2017 19:46:51 11/16/19 18 11/15/2017 uric acid, serum or plasm a clarity, urine clear Not Available [address], [address], [place], [address], 11/19/2017 19:46:51 11/16/19 18 11/15/2017 uric acid, serum or plasm a pH, urine 6.0 Not Available [facility] [address] [facility] [address], [address], [place], [address], 11/19/2017 19:46:51 11/16/19 18 11/15/2017 uric acid, serum or plasm a specific gravity, urine 1.010 Not Available [address], [place], [address], 11/19/2017 19:46:51 11/16/19 18 11/15/2017 uric acid, serum or plasm a protein, total, urine 30 Not Available [facility] [address], [place], [address], 11/19/2017 19:46:51 11/16/19 18 11/15/2017 uric acid, serum or plasm a glucose, urine negati ve Not Available [address], [place], [address], 11/19/2017 19:46:51 11/16/19 18 11/15/2017 uric acid, serum or plasm a ketones, urine negati ve Not Available [facility] [address], [place], [address], 11/19/2017 19:46:51 11/16/19 18 11/15/2017 uric acid, serum or plasm a bilirubin, urine negati ve Not Available [address], [place], [address], 11/19/2017 19:46:51 11/16/19 18 11/15/2017 uric acid, serum or plasm a blood, urine negati ve Not Available [address], [place], [address], 11/19/2017 19:46:51 11/16/19 18 11/15/2017 uric acid, serum or plasm a nitrite, urine negati ve Not Available [facility] [address] [facility] [address], [place], [address], 11/19/2017 19:46:51 11/16/19 18 11/15/2017 uric acid, serum or plasm a leukocyte esterase, urine negati ve Not Available [facility], [place], [address], 11/19/2017 19:46:51 11/16/19 18 11/15/2017 uric acid, serum or plasm a urobilinogen , urine <2.0 Not Available [facility] [address] [facility] [address], [place], [address], 11/19/2017 19:46:51 11/16/19 18 11/15/2017 uric acid, serum or plasm a WBC casts, urine <1 Not Available [facility] [address] [facility] [address], [place], [address], 11/19/2017 19:46:51 11/16/19 18 11/15/2017 uric acid, serum or plasm a red blood cells, urine 0 Not Available [facility] [address] [facility] [address], [place], [address], 11/19/2017 19:46:51 11/16/19 18 11/15/2017 uric acid, serum or plasm a epithelial cells, urine <1 Not Available [facility] [address] [facility] [address], [place], [address], 11/19/2017 19:46:51 11/16/19 18 11/15/2017 uric acid, serum or plasm a protein, urine, random 10.1 Not Available [facility] [address] [facility] [address], [place], [address], 11/19/2017 19:46:51 11/16/19 18 11/15/2017 uric acid, serum or plasm a creatinine, urine, random 48.7 Not Available [facility] [address] [facility] [address], [address], [place], [address], 11/19/2017 19:46:51 11/16/19 18 11/15/2017 uric acid, serum or plasm a HGB 15.3 Not Available [facility] 61 [facility] [address], [address], [place], [address], 11/19/2017 19:46:51 11/16/19 18 11/15/2017 uric acid, serum or plasm a HCT 44.1 Not Available [facility] 61 [facility] [address], [address], [place], [address], 11/19/2017 19:46:51 11/16/19 18 11/15/2017 uric acid, serum or plasm a WBC 6.6 Not Available [facility] [address] [facility] [address], [address], [place], [address], 11/19/2017 19:46:51 11/16/19 18 11/15/2017 uric acid, serum or plasm a plt 275 Not Available [facility] 61 [facility] [address], [address], [place], [address], 11/19/2017 19:46:51 11/16/19 18 11/15/2017 uric acid, serum or plasm a sodium, serum 137 Not Available [facility] [address] [facility] [address], [address], [place], [address], 11/19/2017 19:46:51 11/16/19 18 11/15/2017 uric acid, serum or plasm a potassium, seerum 4.0 Not Available [facility] 61 [facility] [address], [address], [place], [address], 11/19/2017 19:46:51 11/16/19 18 11/15/2017 uric acid, serum or plasm a chloride, serum 96 Not Available [facility] 61 [facility] [address], [address], [place], [address], 11/19/2017 19:46:51 11/16/19 18 11/15/2017 uric acid, serum or plasm a carbon dioxide 27 Not Available [facility] 61 [facility] [address], [address], [place], [address], 11/19/2017 19:46:51 11/16/19 18 11/15/2017 uric acid, serum or plasm a calcium, serum 9.5 Not Available [facility] [address] [facility] [address], [address], [place], [address], 11/19/2017 19:46:51 11/16/19 18 11/15/2017 uric acid, serum or plasm a glucose, serum 92 Not Available [facility] 61 [facility] [address], [address], [place], [address], 11/19/2017 19:46:51 11/16/19 18 11/15/2017 uric acid, serum or plasm a BUN 27 Not Available [facility] 61 [facility] [address], [address], [place], [address], 11/19/2017 19:46:51 11/16/19 18 11/15/2017 uric acid, serum or plasm a creatinine 1.63 Not Available [facility] 61 [facility] [address], [address], [place], [address], 11/19/2017 19:46:51 11/16/19 18 11/15/2017 uric acid, serum or plasm a GFR 43 Not Available [facility] [address] [facility] [address], [address], [place], [address], 11/19/2017 19:46:51 11/16/19 18 11/15/2017 uric acid, serum or plasm a bilirubin, total 0.6 Not Available [facility] [address] [facility] [address], [address], [place], [address], 11/19/2017 19:46:51 11/16/19 18 11/15/2017 uric acid, serum or plasm a albumin, serum 4.5 Not Available [address], [place], [address], 11/19/2017 19:46:51 11/16/19 18 11/15/2017 uric acid, serum or plasm a protein, total, serum 7.5 Not Available [facility] [address] [facility] [address], [place], [address], 11/19/2017 19:46:51 11/16/19 18 11/15/2017 uric acid, serum or plasm a magnesium 1.8 Not Available [address], [place], [address], 11/19/2017 19:46:51 11/16/19 18 11/15/2017 uric acid, serum or plasm a phosphorus 3.6 Not Available [facility] [address] [facility] [address], [place], [address], 11/19/2017 19:46:51 11/16/19 18 11/15/2017 uric acid, serum or plasm a uric acid 5.6 Not Available [address] [facility] [address], [place], [address], 11/19/2017 19:46:51 11/16/19 18 11/15/2017 phosp horus , blood color, urine light, yellow Not Available [facility] [address] [facility] [address], [place], [address], 11/19/2017 19:46:50 11/16/19 18 11/15/2017 phosp horus , blood clarity, urine clear Not Available [facility] 61 [facility] [address], [address], [place], [address], 11/19/2017 19:46:50 11/16/19 18 11/15/2017 phosp horus , blood pH, urine 6.0 Not Available [facility] 61 [facility] [address], [address], [place], [address], 11/19/2017 19:46:50 11/16/19 18 11/15/2017 phosp horus , blood specific gravity, urine 1.010 Not Available [facility] [address] [facility] [address], [address], [place], [address], 11/19/2017 19:46:50 11/16/19 18 11/15/2017 phosp horus , blood protein, total, urine 30 Not Available [facility] 61 [facility] [address], [address], [place], [address], 11/19/2017 19:46:50 11/16/19 18 11/15/2017 phosp horus , blood glucose, urine negati ve Not Available [facility] 61 [facility] [address], [address], [place], [address], 11/19/2017 19:46:50 11/16/19 18 11/15/2017 phosp horus , blood ketones, urine negati ve Not Available [facility] 61 [facility] [address], [address], [place], [address], 11/19/2017 19:46:50 11/16/19 18 11/15/2017 phosp horus , blood bilirubin, urine negati ve Not Available [facility] 61 [facility] [address], [address], [place], [address], 11/19/2017 19:46:50 11/16/19 18 11/15/2017 phosp horus , blood blood, urine negati ve Not Available [facility] 61 [facility] [address], [address], [place], [address], 11/19/2017 19:46:50 11/16/19 18 11/15/2017 phosp horus , blood nitrite, urine negati ve Not Available [facility] [address] [facility] [address], [place], [address], 11/19/2017 19:46:50 11/16/19 18 11/15/2017 phosp horus , blood leukocyte esterase, urine negati ve Not Available [facility] 61 [facility] [address], [address], [place], [address], 11/19/2017 19:46:50 11/16/19 18 11/15/2017 phosp horus , blood urobilinogen , urine <2.0 Not Available [facility] [address] [facility] [address], [place], [address], 11/19/2017 19:46:50 11/16/19 18 11/15/2017 phosp horus , blood WBC casts, urine <1 Not Available [facility] 61 [facility] [address], [address], [place], [address], 11/19/2017 19:46:50 11/16/19 18 11/15/2017 phosp horus , blood red blood cells, urine 0 Not Available [facility] 61 [facility] [address], [address], [place], [address], 11/19/2017 19:46:50 11/16/19 18 11/15/2017 phosp horus , blood epithelial cells, urine <1 Not Available [facility] [address] [facility] [address], [address], [place], [address], 11/19/2017 19:46:50 11/16/19 18 11/15/2017 phosp horus , blood protein, urine, random 10.1 Not Available [facility] 61 [facility] [address], [address], [place], [address], 11/19/2017 19:46:50 11/16/19 18 11/15/2017 phosp horus , blood creatinine, urine, random 48.7 Not Available [facility] [address] [facility] [address], [address], [place], [address], 11/19/2017 19:46:50 11/16/19 18 11/15/2017 phosp horus , blood HGB 15.3 Not Available [facility] [address] [address], [address], [place], [address], 11/19/2017 19:46:50 11/16/19 18 11/15/2017 phosp horus , blood HCT 44.1 Not Available [facility] [address] [facility] [address], [address], [place], [address], 11/19/2017 19:46:50 11/16/19 18 11/15/2017 phosp horus , blood WBC 6.6 Not Available [facility] [address] [address], [address], [place], [address], 11/19/2017 19:46:50 11/16/19 18 11/15/2017 phosp horus , blood plt 275 Not Available [facility] [address], [place], [address], 11/19/2017 19:46:50 11/16/19 18 11/15/2017 phosp horus , blood sodium, serum 137 Not Available [facility] [address], [place], [address], 11/19/2017 19:46:50 11/16/19 18 11/15/2017 phosp horus , blood potassium, seerum 4.0 Not Available [facility] [address], [place], [address], 11/19/2017 19:46:50 11/16/19 18 11/15/2017 phosp horus , blood chloride, serum 96 Not Available [facility] [address], [place], [address], 11/19/2017 19:46:50 11/16/19 18 11/15/2017 phosp horus , blood carbon dioxide 27 Not Available [facility] [address], [place], [address], 11/19/2017 19:46:50 11/16/19 18 11/15/2017 phosp horus , blood calcium, serum 9.5 Not Available [facility] [address], [place], [address], 11/19/2017 19:46:50 11/16/19 18 11/15/2017 phosp horus , blood glucose, serum 92 Not Available [facility] [address], [place], [address], 11/19/2017 19:46:50 11/16/19 18 11/15/2017 phosp horus , blood BUN 27 Not Available [facility] [address], [place], [address], 11/19/2017 19:46:50 11/16/19 18 11/15/2017 phosp horus , blood creatinine 1.63 Not Available [facility] [address], [place], [address], 11/19/2017 19:46:50 11/16/19 18 11/15/2017 phosp horus , blood GFR 43 Not Available [facility] [address], [place], [address], 11/19/2017 19:46:50 11/16/19 18 11/15/2017 phosp horus , blood bilirubin, total 0.6 Not Available [facility] 61 [facility] [address], [address], [place], [address], 11/19/2017 19:46:50 11/16/19 18 11/15/2017 phosp horus , blood albumin, serum 4.5 Not Available [facility] 61 [facility] [address], [address], [place], [address], 11/19/2017 19:46:50 11/16/19 18 11/15/2017 phosp horus , blood protein, total, serum 7.5 Not Available [facility] 61 [facility] [address], [address], [place], [address], 11/19/2017 19:46:50 11/16/19 18 11/15/2017 phosp horus , blood magnesium 1.8 Not Available [facility] [address] [facility] [address], [address], [place], [address], 11/19/2017 19:46:50 11/16/19 18 11/15/2017 phosp horus , blood phosphorus 3.6 Not Available [facility] [address] [facility] [address], [address], [place], [address], 11/19/2017 19:46:50 11/16/19 18 11/15/2017 phosp horus , blood uric acid 5.6 Not Available [facility] 61 [facility] [address], [address], [place], [address], 11/19/2017 19:46:50 11/16/19 18 11/15/2017 magne sium, blood color, urine light, yellow Not Available [facility] [address] [facility] [address], [address], [place], [address], 11/19/2017 19:46:50 11/16/19 18 11/15/2017 magne sium, blood clarity, urine clear Not Available [facility] [address] [facility] [address], [address], [place], [address], 11/19/2017 19:46:50 11/16/19 18 11/15/2017 magne sium, blood pH, urine 6.0 Not Available [facility] [address] [facility] [address], [address], [place], [address], 11/19/2017 19:46:50 11/16/19 18 11/15/2017 magne sium, blood specific gravity, urine 1.010 Not Available [facility] [address], [place], [address], 11/19/2017 19:46:50 11/16/19 18 11/15/2017 magne sium, blood protein, total, urine 30 Not Available [facility] [address] [facility] [address], [address], [place], [address], 11/19/2017 19:46:50 11/16/19 18 11/15/2017 magne sium, blood glucose, urine negati ve Not Available [facility] [address] [facility] [address], [place], [address], 11/19/2017 19:46:50 11/16/19 18 11/15/2017 magne sium, blood ketones, urine negati ve Not Available [facility] [address] [facility] [address], [place], [address], 11/19/2017 19:46:50 11/16/19 18 11/15/2017 magne sium, blood bilirubin, urine negati ve Not Available [facility] [address] [facility] [address], [place], [address], 11/19/2017 19:46:50 11/16/19 18 11/15/2017 magne sium, blood blood, urine negati ve Not Available [facility] 61 [facility] [address], [place], [address], 11/19/2017 19:46:50 11/16/19 18 11/15/2017 magne sium, blood nitrite, urine negati ve Not Available [facility] [address] [facility] [address], [place], [address], 11/19/2017 19:46:50 11/16/19 18 11/15/2017 magne sium, blood leukocyte esterase, urine negati ve Not Available [facility] [address] [facility] [address], [place], [address], 11/19/2017 19:46:50 11/16/19 18 11/15/2017 magne sium, blood urobilinogen , urine <2.0 Not Available [facility] [address] [facility] [address], [place], [address], 11/19/2017 19:46:50 11/16/19 18 11/15/2017 magne sium, blood WBC casts, urine <1 Not Available [facility] [address] [facility] [address], [place], [address], 11/19/2017 19:46:50 11/16/19 18 11/15/2017 magne sium, blood red blood cells, urine 0 Not Available [facility] [address] [facility] [address], [place], [address], 11/19/2017 19:46:50 11/16/19 18 11/15/2017 magne sium, blood epithelial cells, urine <1 Not Available [facility] [address] [facility] [address], [place], [address], 11/19/2017 19:46:50 11/16/19 18 11/15/2017 magne sium, blood protein, urine, random 10.1 Not Available [facility] [address] [facility] [address], [place], [address], 11/19/2017 19:46:50 11/16/19 18 11/15/2017 magne sium, blood creatinine, urine, random 48.7 Not Available [facility] [address] [facility] [address], [place], [address], 11/19/2017 19:46:50 11/16/19 18 11/15/2017 magne sium, blood HGB 15.3 Not Available [facility] [address] [facility] [address], [place], [address], 11/19/2017 19:46:50 11/16/19 18 11/15/2017 magne sium, blood HCT 44.1 Not Available [facility] [address] [facility] [address], [place], [address], 11/19/2017 19:46:50 11/16/19 18 11/15/2017 magne sium, blood WBC 6.6 Not Available [facility] [address] [facility] [address], [place], [address], 11/19/2017 19:46:50 11/16/19 18 11/15/2017 magne sium, blood plt 275 Not Available [facility] [address] [facility] [address], [address], [place], [address], 11/19/2017 19:46:50 11/16/19 18 11/15/2017 magne sium, blood sodium, serum 137 Not Available [facility] [address] [facility] [address], [place], [address], 11/19/2017 19:46:50 11/16/19 18 11/15/2017 magne sium, blood potassium, seerum 4.0 Not Available [facility] [address] [facility] [address], [place], [address], 11/19/2017 19:46:50 11/16/19 18 11/15/2017 magne sium, blood chloride, serum 96 Not Available [facility] [address] [facility] [address], [place], [address], 11/19/2017 19:46:50 11/16/19 18 11/15/2017 magne sium, blood carbon dioxide 27 Not Available [facility] [address] [facility] [address], [place], [address], 11/19/2017 19:46:50 11/16/19 18 11/15/2017 magne sium, blood calcium, serum 9.5 Not Available [facility] [address] [facility] [address], [place], [address], 11/19/2017 19:46:50 11/16/19 18 11/15/2017 magne sium, blood glucose, serum 92 Not Available [facility] [address] [facility] [address], [place], [address], 11/19/2017 19:46:50 11/16/19 18 11/15/2017 magne sium, blood BUN 27 Not Available [facility] [address], [address], [place], [address], 11/19/2017 19:46:50 11/16/19 18 11/15/2017 magne sium, blood creatinine 1.63 Not Available [facility] 61 [facility] [address], [address], [place], [address], 11/19/2017 19:46:50 11/16/19 18 11/15/2017 magne sium, blood GFR 43 Not Available [facility] [address], [place], [address], 11/19/2017 19:46:50 11/16/19 18 11/15/2017 magne sium, blood bilirubin, total 0.6 Not Available [facility] [address], [place], [address], 11/19/2017 19:46:50 11/16/19 18 11/15/2017 magne sium, blood albumin, serum 4.5 Not Available [facility] [address], [place], [address], 11/19/2017 19:46:50 11/16/19 18 11/15/2017 magne sium, blood protein, total, serum 7.5 Not Available [facility] [address], [place], [address], 11/19/2017 19:46:50 11/16/19 18 11/15/2017 magne sium, blood magnesium 1.8 Not Available [facility] [address], [place], [address], 11/19/2017 19:46:50 11/16/19 18 11/15/2017 magne sium, blood phosphorus 3.6 Not Available [facility] [address], [place], [address], 11/19/2017 19:46:50 11/16/19 18 11/15/2017 magne sium, blood uric acid 5.6 Not Available [facility] [address], [place], [address], 11/19/2017 19:46:50 11/16/19 18 11/15/2017 CMP, serum or plasm a color, urine light, yellow Not Available [address], [place], [address], 11/19/2017 19:46:50 11/16/19 18 11/15/2017 CMP, serum or plasm a clarity, urine clear Not Available [address], [place], [address], 11/19/2017 19:46:50 11/16/19 18 11/15/2017 CMP, serum or plasm a pH, urine 6.0 Not Available [address], [place], [address], 11/19/2017 19:46:50 11/16/19 18 11/15/2017 CMP, serum or plasm a specific gravity, urine 1.010 Not Available [address], [place], [address], 11/19/2017 19:46:50 11/16/19 18 11/15/2017 CMP, serum or plasm a protein, total, urine 30 Not Available [address], [place], [address], 11/19/2017 19:46:50 11/16/19 18 11/15/2017 CMP, serum or plasm a glucose, urine negati ve Not Available [address], [address], [place], [address], 11/19/2017 19:46:50 11/16/19 18 11/15/2017 CMP, serum or plasm a ketones, urine negati ve Not Available [address], [address], [place], [address], 11/19/2017 19:46:50 11/16/19 18 11/15/2017 CMP, serum or plasm a bilirubin, urine negati ve Not Available [address], [address], [place], [address], 11/19/2017 19:46:50 11/16/19 18 11/15/2017 CMP, serum or plasm a blood, urine negati ve Not Available [address], [address], [place], [address], 11/19/2017 19:46:50 11/16/19 18 11/15/2017 CMP, serum or plasm a nitrite, urine negati ve Not Available [facility] [address] [place], [place] [address]y [address], [address], [place], [address], 11/19/2017 19:46:50 11/16/19 18 11/15/2017 CMP, serum or plasm a leukocyte esterase, urine negati ve Not Available [address], [address], [place], [address], 11/19/2017 19:46:50 11/16/19 18 11/15/2017 CMP, serum or plasm a urobilinogen , urine <2.0 Not Available [address], [address], [place], [address], 11/19/2017 19:46:50 11/16/19 18 11/15/2017 CMP, serum or plasm a WBC casts, urine <1 Not Available [address], [address], [place], [address], 11/19/2017 19:46:50 11/16/19 18 11/15/2017 CMP, serum or plasm a red blood cells, urine 0 Not Available [facility] [address] [place], [place] [address]y [address], [address], [place], [address], 11/19/2017 19:46:50 11/16/19 18 11/15/2017 CMP, serum or plasm a epithelial cells, urine <1 Not Available [facility] [address] [facility] [address], [address], [place], [address], 11/19/2017 19:46:50 11/16/19 18 11/15/2017 CMP, serum or plasm a protein, urine, random 10.1 Not Available [address], [place], [address], 11/19/2017 19:46:50 11/16/19 18 11/15/2017 CMP, serum or plasm a creatinine, urine, random 48.7 Not Available [facility] [address] [facility] [address], [address], [place], [address], 11/19/2017 19:46:50 11/16/19 18 11/15/2017 CMP, serum or plasm a HGB 15.3 Not Available [address], [place], [address], 11/19/2017 19:46:50 11/16/19 18 11/15/2017 CMP, serum or plasm a HCT 44.1 Not Available [address], [address], [place], [address], 11/19/2017 19:46:50 11/16/19 18 11/15/2017 CMP, serum or plasm a WBC 6.6 Not Available [address], [place], [address], 11/19/2017 19:46:50 11/16/19 18 11/15/2017 CMP, serum or plasm a plt 275 Not Available [facility] [address], [place], [address], 11/19/2017 19:46:50 11/16/19 18 11/15/2017 CMP, serum or plasm a sodium, serum 137 Not Available [facility] [address] [facility] [address], [address], [place], [address], 11/19/2017 19:46:50 11/16/19 18 11/15/2017 CMP, serum or plasm a potassium, seerum 4.0 Not Available [facility] 61 [facility] [address], [address], [place], [address], 11/19/2017 19:46:50 11/16/19 18 11/15/2017 CMP, serum or plasm a chloride, serum 96 Not Available [facility] [address] [facility] [address], [address], [place], [address], 11/19/2017 19:46:50 11/16/19 18 11/15/2017 CMP, serum or plasm a carbon dioxide 27 Not Available [facility] [address] [facility] [address], [address], [place], [address], 11/19/2017 19:46:50 11/16/19 18 11/15/2017 CMP, serum or plasm a calcium, serum 9.5 Not Available [facility] [address], [address], [place], [address], 11/19/2017 19:46:50 11/16/19 18 11/15/2017 CMP, serum or plasm a glucose, serum 92 Not Available [facility] [address], [address], [place], [address], 11/19/2017 19:46:50 11/16/19 18 11/15/2017 CMP, serum or plasm a BUN 27 Not Available [facility] [address], [address], [place], [address], 11/19/2017 19:46:50 11/16/19 18 11/15/2017 CMP, serum or plasm a creatinine 1.63 Not Available [facility] [address] [facility] [address], [address], [place], [address], 11/19/2017 19:46:50 11/16/19 18 11/15/2017 CMP, serum or plasm a GFR 43 Not Available [facility] [address] [facility] [address], [address], [place], [address], 11/19/2017 19:46:50 11/16/19 18 11/15/2017 CMP, serum or plasm a bilirubin, total 0.6 Not Available [facility] [address] [facility] [address], [address], [place], [address], 11/19/2017 19:46:50 11/16/19 18 11/15/2017 CMP, serum or plasm a albumin, serum 4.5 Not Available [facility] [address] [facility] [address], [address], [place], [address], 11/19/2017 19:46:50 11/16/19 18 11/15/2017 CMP, serum or plasm a protein, total, serum 7.5 Not Available [facility] [address] [facility] [address], [address], [place], [address], 11/19/2017 19:46:50 11/16/19 18 11/15/2017 CMP, serum or plasm a magnesium 1.8 Not Available [facility] [address] [facility] [address], [address], [place], [address], 11/19/2017 19:46:50 11/16/19 18 11/15/2017 CMP, serum or plasm a phosphorus 3.6 Not Available [facility] [address], [address], [place], [address], 11/19/2017 19:46:50 11/16/19 18 11/15/2017 CMP, serum or plasm a uric acid 5.6 Not Available [facility] [address] [facility] [address], [address], [place], [address], 11/19/2017 19:46:50 11/16/19 18 11/15/2017 CBC w/ auto diff color, urine light, yellow Not Available [facility] [address] [facility] [address], [address], [place], [address], 11/19/2017 19:46:50 11/16/19 18 11/15/2017 CBC w/ auto diff clarity, urine clear Not Available [facility] [address] [facility] [address], [address], [place], [address], 11/19/2017 19:46:50 11/16/19 18 11/15/2017 CBC w/ auto diff pH, urine 6.0 Not Available [facility] [address] [facility] [address], [address], [place], [address], 11/19/2017 19:46:50 11/16/19 18 11/15/2017 CBC w/ auto diff specific gravity, urine 1.010 Not Available [facility] [address] [facility] [address], [address], [place], [address], 11/19/2017 19:46:50 11/16/19 18 11/15/2017 CBC w/ auto diff protein, total, urine 30 Not Available [facility] [address] [facility] [address], [address], [place], [address], 11/19/2017 19:46:50 11/16/19 18 11/15/2017 CBC w/ auto diff glucose, urine negati ve Not Available [facility] [address] [facility] [address], [address], [place], [address], 11/19/2017 19:46:50 11/16/19 18 11/15/2017 CBC w/ auto diff ketones, urine negati ve Not Available [facility] [address] [facility] [address], [address], [place], [address], 11/19/2017 19:46:50 11/16/19 18 11/15/2017 CBC w/ auto diff bilirubin, urine negati ve Not Available [facility] [address] [facility] [address], [address], [place], [address], 11/19/2017 19:46:50 11/16/19 18 11/15/2017 CBC w/ auto diff blood, urine negati ve Not Available [facility] [address], [place], [address], 11/19/2017 19:46:50 11/16/19 18 11/15/2017 CBC w/ auto diff nitrite, urine negati ve Not Available [facility] [address], [place], [address], 11/19/2017 19:46:50 11/16/19 18 11/15/2017 CBC w/ auto diff leukocyte esterase, urine negati ve Not Available [facility] [address], [place], [address], 11/19/2017 19:46:50 11/16/19 18 11/15/2017 CBC w/ auto diff urobilinogen , urine <2.0 Not Available [facility] [address], [place], [address], 11/19/2017 19:46:50 11/16/19 18 11/15/2017 CBC w/ auto diff WBC casts, urine <1 Not Available [facility] [address], [place], [address], 11/19/2017 19:46:50 11/16/19 18 11/15/2017 CBC w/ auto diff red blood cells, urine 0 Not Available [facility] [address], [address], [place], [address], 11/19/2017 19:46:50 11/16/19 18 11/15/2017 CBC w/ auto diff epithelial cells, urine <1 Not Available [facility] [address] [facility] [address], [address], [place], [address], 11/19/2017 19:46:50 11/16/19 18 11/15/2017 CBC w/ auto diff protein, urine, random 10.1 Not Available [facility] [address] [facility] [address], [address], [place], [address], 11/19/2017 19:46:50 11/16/19 18 11/15/2017 CBC w/ auto diff creatinine, urine, random 48.7 Not Available [facility] [address] [facility] [address], [address], [place], [address], 11/19/2017 19:46:50 11/16/19 18 11/15/2017 CBC w/ auto diff HGB 15.3 Not Available [facility] [address] [facility] [address], [address], [place], [address], 11/19/2017 19:46:50 11/16/19 18 11/15/2017 CBC w/ auto diff HCT 44.1 Not Available [facility] [address] [facility] [address], [address], [place], [address], 11/19/2017 19:46:50 11/16/19 18 11/15/2017 CBC w/ auto diff WBC 6.6 Not Available [facility] [address] [facility] [address], [address], [place], [address], 11/19/2017 19:46:50 11/16/19 18 11/15/2017 CBC w/ auto diff plt 275 Not Available [facility] [address] [facility] [address], [address], [place], [address], 11/19/2017 19:46:50 11/16/19 18 11/15/2017 CBC w/ auto diff sodium, serum 137 Not Available [facility] [address], [address], [place], [address], 11/19/2017 19:46:50 11/16/19 18 11/15/2017 CBC w/ auto diff potassium, seerum 4.0 Not Available [facility] [address], [address], [place], [address], 11/19/2017 19:46:50 11/16/19 18 11/15/2017 CBC w/ auto diff chloride, serum 96 Not Available [facility] [address], [address], [place], [address], 11/19/2017 19:46:50 11/16/19 18 11/15/2017 CBC w/ auto diff carbon dioxide 27 Not Available [facility] [address], [address], [place], [address], 11/19/2017 19:46:50 11/16/19 18 11/15/2017 CBC w/ auto diff calcium, serum 9.5 Not Available [facility] [address], [address], [place], [address], 11/19/2017 19:46:50 11/16/19 18 11/15/2017 CBC w/ auto diff glucose, serum 92 Not Available [facility] [address], [address], [place], [address], 11/19/2017 19:46:50 11/16/19 18 11/15/2017 CBC w/ auto diff BUN 27 Not Available [facility] [address], [address], [place], [address], 11/19/2017 19:46:50 11/16/19 18 11/15/2017 CBC w/ auto diff creatinine 1.63 Not Available [facility] [address], [place], [address], 11/19/2017 19:46:50 11/16/19 18 11/15/2017 CBC w/ auto diff GFR 43 Not Available [facility] [address] [facility] [address], [address], [place], [address], 11/19/2017 19:46:50 11/16/19 18 11/15/2017 CBC w/ auto diff bilirubin, total 0.6 Not Available [facility] [address] [facility] [address], [address], [place], [address], 11/19/2017 19:46:50 11/16/19 18 11/15/2017 CBC w/ auto diff albumin, serum 4.5 Not Available [address], [address], [place], [address], 11/19/2017 19:46:50 11/16/19 18 11/15/2017 CBC w/ auto diff protein, total, serum 7.5 Not Available [facility] [address] [facility] [address], [address], [place], [address], 11/19/2017 19:46:50 11/16/19 18 11/15/2017 CBC w/ auto diff magnesium 1.8 Not Available [facility] [address] [facility] [address], [address], [place], [address], 11/19/2017 19:46:50 11/16/19 18 11/15/2017 CBC w/ auto diff phosphorus 3.6 Not Available [facility] [address], [address], [place], [address], 11/19/2017 19:46:50 11/16/19 18 11/15/2017 CBC w/ auto diff uric acid 5.6 Not Available [facility] [address], [address], [place], [address], 11/19/2017 19:46:50 11/16/19 18 11/15/2017 prote in:cr eatin ine ratio , urine color, urine light, yellow Not Available [facility] 61 [facility] [address], [address], [place], [address], 11/19/2017 19:46:50 11/16/19 18 11/15/2017 prote in:cr eatin ine ratio , urine clarity, urine clear Not Available [facility] [address], [place], [address], 11/19/2017 19:46:50 11/16/19 18 11/15/2017 prote in:cr eatin ine ratio , urine pH, urine 6.0 Not Available [facility] [address], [place], [address], 11/19/2017 19:46:50 11/16/19 18 11/15/2017 prote in:cr eatin ine ratio , urine specific gravity, urine 1.010 Not Available [facility] [address] [facility] [address], [address], [place], [address], 11/19/2017 19:46:50 11/16/19 18 11/15/2017 prote in:cr eatin ine ratio , urine protein, total, urine 30 Not Available [facility] [address], [place], [address], 11/19/2017 19:46:50 11/16/19 18 11/15/2017 prote in:cr eatin ine ratio , urine glucose, urine negati ve Not Available [facility] [address], [place], [address], 11/19/2017 19:46:50 11/16/19 18 11/15/2017 prote in:cr eatin ine ratio , urine ketones, urine negati ve Not Available [facility] [address] [facility] [address], [address], [place], [address], 11/19/2017 19:46:50 11/16/19 18 11/15/2017 prote in:cr eatin ine ratio , urine bilirubin, urine negati ve Not Available [facility] [address], [place], [address], 11/19/2017 19:46:50 11/16/19 18 11/15/2017 prote in:cr eatin ine ratio , urine blood, urine negati ve Not Available [facility] [address], [place], [address], 11/19/2017 19:46:50 11/16/19 18 11/15/2017 prote in:cr eatin ine ratio , urine nitrite, urine negati ve Not Available [facility] [address], [place], [address], 11/19/2017 19:46:50 11/16/19 18 11/15/2017 prote in:cr eatin ine ratio , urine leukocyte esterase, urine negati ve Not Available [facility] [address] [facility] [address], [address], [place], [address], 11/19/2017 19:46:50 11/16/19 18 11/15/2017 prote in:cr eatin ine ratio , urine urobilinogen , urine <2.0 Not Available [facility] [address], [place], [address], 11/19/2017 19:46:50 11/16/19 18 11/15/2017 prote in:cr eatin ine ratio , urine WBC casts, urine <1 Not Available [facility] [address], [place], [address], 11/19/2017 19:46:50 11/16/19 18 11/15/2017 prote in:cr eatin ine ratio , urine red blood cells, urine 0 Not Available [facility] [address], [address], [place], [address], 11/19/2017 19:46:50 11/16/19 18 11/15/2017 prote in:cr eatin ine ratio , urine epithelial cells, urine <1 Not Available [facility] [address] [facility] [address], [address], [place], [address], 11/19/2017 19:46:50 11/16/19 18 11/15/2017 prote in:cr eatin ine ratio , urine protein, urine, random 10.1 Not Available [facility] [address] [facility] [address], [address], [place], [address], 11/19/2017 19:46:50 11/16/19 18 11/15/2017 prote in:cr eatin ine ratio , urine creatinine, urine, random 48.7 Not Available [facility] [address] [facility] [address], [address], [place], [address], 11/19/2017 19:46:50 11/16/19 18 11/15/2017 prote in:cr eatin ine ratio , urine HGB 15.3 Not Available [facility] [address] [facility] [address], [address], [place], [address], 11/19/2017 19:46:50 11/16/19 18 11/15/2017 prote in:cr eatin ine ratio , urine HCT 44.1 Not Available [facility] [address], [address], [place], [address], 11/19/2017 19:46:50 11/16/19 18 11/15/2017 prote in:cr eatin ine ratio , urine WBC 6.6 Not Available [facility] [address] [facility] [address], [address], [place], [address], 11/19/2017 19:46:50 11/16/19 18 11/15/2017 prote in:cr eatin ine ratio , urine plt 275 Not Available [facility] [address] [facility] [address], [address], [place], [address], 11/19/2017 19:46:50 11/16/19 18 11/15/2017 prote in:cr eatin ine ratio , urine sodium, serum 137 Not Available [facility] [address] [facility] [address], [address], [place], [address], 11/19/2017 19:46:50 11/16/19 18 11/15/2017 prote in:cr eatin ine ratio , urine potassium, seerum 4.0 Not Available [facility] [address] [place] [address] [address], [address], [place], [address], 11/19/2017 19:46:50 11/16/19 18 11/15/2017 prote in:cr eatin ine ratio , urine chloride, serum 96 Not Available [facility] [address], [address], [place], [address], 11/19/2017 19:46:50 11/16/19 18 11/15/2017 prote in:cr eatin ine ratio , urine carbon dioxide 27 Not Available [facility] [address] [place] [address] [address], [address], [place], [address], 11/19/2017 19:46:50 11/16/19 18 11/15/2017 prote in:cr eatin ine ratio , urine calcium, serum 9.5 Not Available [facility] [address] [place] [address] [address], [address], [place], [address], 11/19/2017 19:46:50 11/16/19 18 11/15/2017 prote in:cr eatin ine ratio , urine glucose, serum 92 Not Available [facility] [address] [place] [address] [address], [address], [place], [address], 11/19/2017 19:46:50 11/16/19 18 11/15/2017 prote in:cr eatin ine ratio , urine BUN 27 Not Available [facility] [address] [place] [address] [address], [address], [place], [address], 11/19/2017 19:46:50 11/16/19 18 11/15/2017 prote in:cr eatin ine ratio , urine creatinine 1.63 Not Available [facility] [address] [facility] [address], [address], [place], [address], 11/19/2017 19:46:50 11/16/19 18 11/15/2017 prote in:cr eatin ine ratio , urine GFR 43 Not Available [address], [place], [address], 11/19/2017 19:46:50 11/16/19 18 11/15/2017 prote in:cr eatin ine ratio , urine bilirubin, total 0.6 Not Available [facility] [address] [facility] [address], [place], [address], 11/19/2017 19:46:50 11/16/19 18 11/15/2017 prote in:cr eatin ine ratio , urine albumin, serum 4.5 Not Available [facility] [address] [place] [address] [address], [address], [place], [address], 11/19/2017 19:46:50 11/16/19 18 11/15/2017 prote in:cr eatin ine ratio , urine protein, total, serum 7.5 Not Available [facility] [address] [facility] [address], [place], [address], 11/19/2017 19:46:50 11/16/19 18 11/15/2017 prote in:cr eatin ine ratio , urine magnesium 1.8 Not Available [facility] [address] [facility] [address], [place], [address], 11/19/2017 19:46:50 11/16/19 18 11/15/2017 prote in:cr eatin ine ratio , urine phosphorus 3.6 Not Available [facility] [address], [place], [address], 11/19/2017 19:46:50 11/16/19 18 11/15/2017 prote in:cr eatin ine ratio , urine uric acid 5.6 Not Available [facility] [address], [place], [address], 11/19/2017 19:46:50 05/07/20 18 05/07/2018 lipid panel [...] , urine glucose 96 normal Not Available [facility] [address] [facility] [address], Ranjan [address], [place], [address], 09/17/2018 17:00:34 08/29/20 18 08/29/2018 prote in:cr eatin ine ratio , urine BUN 25 high Not Available [facility] [address] [facility] [address], [address]jan [address], [place], [address], 09/17/2018 17:00:34 08/29/20 18 08/29/2018 prote in:cr eatin ine ratio , urine creatinine 1.51 high Not Available [facility] 61 [facility] [address], [address]jan [address], [place], [address], 09/17/2018 17:00:34 08/29/20 18 08/29/2018 prote in:cr eatin ine ratio , urine sodium, serum 139 normal Not Available [facility] 61 [facility] [address], [address]jan C, [place], [address], 09/17/2018 17:00:34 08/29/20 18 08/29/2018 prote in:cr eatin ine ratio , urine potassium, serum 3.9 normal Not Available [facility] 61 [facility] [address], [address]jan C, [place], [address], 09/17/2018 17:00:34 08/29/20 18 08/29/2018 prote in:cr eatin ine ratio , urine chloride, serum 102 normal Not Available [facility] 61 [facility] [address], [address]jan C, [place], [address], 09/17/2018 17:00:34 08/29/20 18 08/29/2018 prote in:cr eatin ine ratio , urine carbon dioxide 28 normal Not Available [facility] 61 [facility] [address], [address], [place], [address], 09/17/2018 17:00:34 08/29/20 18 08/29/2018 prote in:cr eatin ine ratio , urine album, serum 4.3 normal Not Available [facility] [address] [place] [address] [address], [address]jan C, [place], [address], 09/17/2018 17:00:34 08/29/20 18 08/29/2018 prote in:cr eatin ine ratio , urine calcium, serum 9.2 normal Not Available [facility] [address] [place], [place] [address]za y [address], Ranjan C, [place], [address], 09/17/2018 17:00:34 08/29/20 18 08/29/2018 prote in:cr eatin ine ratio , urine alkaline phosphatase 44 normal Not Available [facility] [address], [address] C, [place], [address], 09/17/2018 17:00:34 08/29/20 18 08/29/2018 prote in:cr eatin ine ratio , urine bilirubin, total 0.4 normal Not Available [facility] [address] [place], [place] [address]za y [address], Ranjan C, [place], [address], 09/17/2018 17:00:34 08/29/20 18 08/29/2018 prote in:cr eatin ine ratio , urine protein, total, serum 70 normal Not Available [facility] [address] [place], [place] [address]cortez [address], Ranjan C, [place], [address], 09/17/2018 17:00:34 08/29/20 18 08/29/2018 prote in:cr eatin ine ratio , urine eGFR 47 low Not Available [facility] [address] [place], [place] [address]cortez [address], Ranjan C, [place], [address], 09/17/2018 17:00:34 08/29/20 18 08/29/2018 prote in:cr eatin ine ratio , urine creatinine, urine 23.0 normal Not Available [facility] [address] [place], [place] [address]za y [address], Ranjan C, [place], [address], 09/17/2018 17:00:34 08/29/20 18 08/29/2018 prote in:cr eatin ine ratio , urine protein, total, urine, random 9.8 normal Not Available [facility] 61 [facility] [address], [address]jan [address], [place], [address], 09/17/2018 17:00:34 08/29/20 18 08/29/2018 urina lysis compl ete, refle x cultu re WBC count 6.3 normal Not Available [facility] 61 [facility] [address], [address]jan C, [place], [address], 09/17/2018 16:56:21 08/29/20 18 08/29/2018 urina lysis compl ete, refle x cultu re HGB 15 normal Not Available [facility] [address], [address], [place], [address], 09/17/2018 16:56:21 08/29/20 18 08/29/2018 urina lysis compl ete, refle x cultu re HCT 44.2 normal Not Available [facility] 61 [facility] [address], [address]jan C, [place], [address], 09/17/2018 16:56:21 08/29/20 18 08/29/2018 urina lysis compl ete, refle x cultu re platelet count 254 normal Not Available [facility] [address] [facility] [address], [address]jan C, [place], [address], 09/17/2018 16:56:21 08/29/20 18 08/29/2018 CMP, serum or plasm a glucose 96 normal Not Available [facility] 61 [facility] [address], [address]jan C, [place], [address], 08/29/2018 18:28:02 08/29/20 18 08/29/2018 CMP, serum or plasm a BUN 25 high Not Available [facility] [address], [address], [place], [address], 08/29/2018 18:28:02 08/29/20 18 08/29/2018 CMP, serum or plasm a creatinine 1.51 high Not Available [facility] [address], [address]jan C, [place], [address], 08/29/2018 18:28:02 08/29/20 18 08/29/2018 CMP, serum or plasm a sodium, serum 139 normal Not Available [facility] [address], [address], [place], [address], 08/29/2018 18:28:02 08/29/20 18 08/29/2018 CMP, serum or plasm a potassium, serum 3.9 normal Not Available [facility] [address], [address]jan [address], [place], [address], 08/29/2018 18:28:02 08/29/20 18 08/29/2018 CMP, serum or plasm a chloride, serum 102 normal Not Available [facility] [address], [address]jan [address], [place], [address], 08/29/2018 18:28:02 08/29/20 18 08/29/2018 CMP, serum or plasm a carbon dioxide 28 normal Not Available [facility] [address], [address]jan [address], [place], [address], 08/29/2018 18:28:02 08/29/20 18 08/29/2018 CMP, serum or plasm a album, serum 4.3 normal Not Available [facility] [address], [address]jan C, [place], [address], 08/29/2018 18:28:02 08/29/20 18 08/29/2018 CMP, serum or plasm a calcium, serum 9.2 normal Not Available [facility] [address], [address], [place], [address], 08/29/2018 18:28:02 08/29/20 18 08/29/2018 CMP, serum or plasm a alkaline phosphatase 44 normal Not Available [facility] [address] [place] [address], [address]jan [address], [place], [address], 08/29/2018 18:28:02 08/29/20 18 08/29/2018 CMP, serum or plasm a bilirubin, total 0.4 normal Not Available [facility] 61 [facility] [address], [address]jan [address], [place], [address], 08/29/2018 18:28:02 08/29/20 18 08/29/2018 CMP, serum or plasm a protein, total, serum 70 normal Not Available [address], [address]jan C, [place], [address], 08/29/2018 18:28:02 08/29/20 18 08/29/2018 CMP, serum or plasm a eGFR 47 low Not Available [facility] [address], [address], [place], [address], 08/29/2018 18:28:02 08/29/20 18 08/29/2018 CMP, serum or plasm a creatinine, urine 23.0 normal Not Available [facility] [address], [address], [place], [address], 08/29/2018 18:28:02 08/29/20 18 08/29/2018 CMP, serum or plasm a protein, total, urine, random 9.8 normal Not Available [facility] [address], [address], [place], [address], 08/29/2018 18:28:02 08/29/20 18 08/29/2018 CBC w/ auto diff WBC count 6.3 normal Not Available [facility] [address] [facility] [address], [address]jan [address], [place], [address], 08/29/2018 15:25:44 08/29/20 18 08/29/2018 CBC w/ auto diff HGB 15 normal Not Available [facility] 61 [facility] [address], [address]jan [address], [place], [address], 08/29/2018 15:25:44 08/29/20 18 08/29/2018 CBC w/ auto diff HCT 44.2 normal Not Available [facility] 61 [facility] [address], [address]jan [address], [place], [address], 08/29/2018 15:25:44 08/29/20 18 08/29/2018 CBC w/ auto diff platelet count 254 normal Not Available [facility] 61 [facility] [address], [address]jan [address], [place], [address], 08/29/2018 15:25:44 02/11/20 19 02/10/2019 lipid panel [...] , serum glucose 96 normal Not Available [facility] [address] [facility] [address], [address]jan [address], [place], [address], 03/04/2019 18:56:10 03/03/20 19 03/03/2019 renal funct ion panel , serum BUN 26 high Not Available [facility] 61 [facility] [address], [address]jan [address], [place], [address], 03/04/2019 18:56:10 03/03/20 19 03/03/2019 renal funct ion panel , serum creatinine 1.61 normal Not Available [facility] 61 [facility] [address], [address], [place], [address], 03/04/2019 18:56:10 03/03/20 19 03/03/2019 renal funct ion panel , serum sodium, serum 139 normal Not Available [facility] 61 [facility] [address], [address]jan [address], [place], [address], 03/04/2019 18:56:10 03/03/20 19 03/03/2019 renal funct ion panel , serum potassium, serum 3.8 normal Not Available [facility] [address] [facility] [address], [address], [place], [address], 03/04/2019 18:56:10 03/03/20 19 03/03/2019 renal funct ion panel , serum chloride, serum 104 normal Not Available [facility] [address], [address], [place], [address], 03/04/2019 18:56:10 03/03/20 19 03/03/2019 renal funct ion panel , serum carbon dioxide 24 normal Not Available [facility] [address], [address], [place], [address], 03/04/2019 18:56:10 03/03/20 19 03/03/2019 renal funct ion panel , serum calcium, serum 9.1 normal normal Not Available [facility] [address], [address], [place], [address], 03/04/2019 18:56:10 03/03/20 19 03/03/2019 renal funct ion panel , serum eGFR 44 low Not Available [facility] [address], [address], [place], [address], 03/04/2019 18:56:10 03/04/20 19 03/04/2019 prote in:cr eatin ine ratio , urine glucose 96 normal Not Available [facility] [address], [address], [place], [address], 03/04/2019 08:17:55 03/04/20 19 03/04/2019 prote in:cr eatin ine ratio , urine BUN 26 high Not Available [facility] [address], [address], [place], [address], 03/04/2019 08:17:55 03/04/20 19 03/04/2019 prote in:cr eatin ine ratio , urine creatinine 1.61 normal Not Available [facility] [address], [address], [place], [address], 03/04/2019 08:17:55 03/04/20 19 03/04/2019 prote in:cr eatin ine ratio , urine sodium, serum 139 normal Not Available [facility] [address] [facility] [address], [address], [place], [address], 03/04/2019 08:17:55 03/04/20 19 03/04/2019 prote in:cr eatin ine ratio , urine potassium, serum 3.8 normal Not Available [facility] 61 [facility] [address], [address], [place], [address], 03/04/2019 08:17:55 03/04/20 19 03/04/2019 prote in:cr eatin ine ratio , urine chloride, serum 104 normal Not Available [facility] 61 [facility] [address], [address]jan [address], [place], [address], 03/04/2019 08:17:55 03/04/20 19 03/04/2019 prote in:cr eatin ine ratio , urine carbon dioxide 24 normal Not Available [facility] [address] [facility] [address], [address], [place], [address], 03/04/2019 08:17:55 03/04/20 19 03/04/2019 prote in:cr eatin ine ratio , urine calcium, serum 9.1 normal normal Not Available [facility] 61 [facility] [address], [address], [place], [address], 03/04/2019 08:17:55 03/04/20 19 03/04/2019 prote in:cr eatin ine ratio , urine eGFR 44 low Not Available [facility] [address] [facility] [address], [address], [place], [address], 03/04/2019 08:17:55 01/20/20 20 01/20/2020 CMP, serum [...] plasm a HGB 14.5 normal Not Available [facility] [address], [address], [place], [address], 11/15/2020 13:57:47 10/24/19 21 10/24/2020 CMP, serum or plasm a HCT 43.1 normal Not Available [facility] [address] [facility] [address], [address], [place], [address], 11/15/2020 13:57:47 10/24/19 21 10/24/2020 CMP, serum or plasm a platelet count 242 normal Not Available [facility] [address], [address], [place], [address], 11/15/2020 13:57:47 10/24/19 21 10/24/2020 CMP, serum or plasm a WBC count 4.9 normal Not Available [facility] [address] [facility] [address], [address], [place], [address], 11/15/2020 13:57:47 10/24/19 21 10/24/2020 CMP, serum or plasm a glucose 103 normal Not Available [facility] 61 [facility] [address], [address], [place], [address], 11/15/2020 13:57:47 10/24/19 21 10/24/2020 CMP, serum or plasm a BUN 24 high Not Available [facility] [address] [facility] [address], [address], [place], [address], 11/15/2020 13:57:47 10/24/19 21 10/24/2020 CMP, serum or plasm a creatinine 1.36 high Not Available [facility] [address] [facility] [address], [address], [place], [address], 11/15/2020 13:57:47 10/24/19 21 10/24/2020 CMP, serum or plasm a sodium, serum 136 normal Not Available [facility] [address] [facility], [address], [place], [address], 11/15/2020 13:57:47 10/24/19 21 10/24/2020 CMP, serum or plasm a potassium, serum 4.2 normal Not Available [facility] [address] [facility], [address], [place], [address], 11/15/2020 13:57:47 10/24/19 21 10/24/2020 CMP, serum or plasm a chloride, serum 102 normal Not Available [facility] 61 [facility] [address], [address], [place], [address], 11/15/2020 13:57:47 10/24/19 21 10/24/2020 CMP, serum or plasm a carbon dixoide 27 normal Not Available [facility] [address] [facility] [address], [address], [place], [address], 11/15/2020 13:57:47 10/24/19 21 10/24/2020 CMP, serum or plasm a album, serum 4.3 normal Not Available [facility] [address] [facility] [address], [address], [place], [address], 11/15/2020 13:57:47 10/24/19 21 10/24/2020 CMP, serum or plasm a calcium, serum 9.5 normal Not Available [facility] [address] [facility] [address], [address], [place], [address], 11/15/2020 13:57:47 10/24/19 21 10/24/2020 CMP, serum or plasm a eGFR 53 low Not Available [facility] 61 [facility] [address], [address], [place], [address], 11/15/2020 13:57:47 10/24/19 21 10/24/2020 CMP, serum or plasm a protein, total, serum 6.7 normal Not Available [facility] 61 [facility] [address], [address], [place], [address], 11/15/2020 13:57:47 10/24/19 21 10/24/2020 CBC w/ auto diff HGB 14.5 normal Not Available [facility] 61 [facility] [address], [address], [place], [address], 11/02/2020 12:21:14 10/24/19 21 10/24/2020 CBC w/ auto diff HCT 43.1 normal Not Available [facility] 61 [facility] [address], [address], [place], [address], 11/02/2020 12:21:14 10/24/19 21 10/24/2020 CBC w/ auto diff platelet count 242 normal Not Available [facility] 61 [facility] [address], [address], [place], [address], 11/02/2020 12:21:14 10/24/19 21 10/24/2020 CBC w/ auto diff WBC count 4.9 normal Not Available [facility] 61 [facility] [address], [address], [place], [address], 11/02/2020 12:21:14 10/24/19 21 10/24/2020 CBC w/ auto diff glucose 103 normal Not Available [facility] 61 [facility] [address], [address], [place], [address], 11/02/2020 12:21:14 10/24/19 21 10/24/2020 CBC w/ auto diff BUN 24 high Not Available [facility] 61 [facility] [address], [address], [place], [address], 11/02/2020 12:21:14 10/24/19 21 10/24/2020 CBC w/ auto diff creatinine 1.36 high Not Available [facility] [address] [facility] [address], [address], [place], [address], 11/02/2020 12:21:14 10/24/19 21 10/24/2020 CBC w/ auto diff sodium, serum 136 normal Not Available [facility] 61 [facility] [address], [address], [place], [address], 11/02/2020 12:21:14 10/24/19 21 10/24/2020 CBC w/ auto diff potassium, serum 4.2 normal Not Available [facility] [address], [address], [place], [address], 11/02/2020 12:21:14 10/24/19 21 10/24/2020 CBC w/ auto diff chloride, serum 102 normal Not Available [facility] 61 [facility] [address], [address], [place], [address], 11/02/2020 12:21:14 10/24/19 21 10/24/2020 CBC w/ auto diff carbon dixoide 27 normal Not Available [facility] [address], [address], [place], [address], 11/02/2020 12:21:14 10/24/19 21 10/24/2020 CBC w/ auto diff album, serum 4.3 normal Not Available [facility] 61 [facility] [address], [address], [place], [address], 11/02/2020 12:21:14 10/24/19 21 10/24/2020 CBC w/ auto diff calcium, serum 9.5 normal Not Available [facility] [address], [address], [place], [address], 11/02/2020 12:21:14 10/24/19 21 10/24/2020 CBC w/ auto diff eGFR 53 low Not Available [facility] [address], [address], [place], [address], 11/02/2020 12:21:14 10/24/19 21 10/24/2020 CBC w/ auto diff protein, total, serum 6.7 normal Not Available [facility] [address], [address], [place], [address], 11/02/2020 12:21:14 05/24/20 17 05/24/2017 , janae Bergeron observ ation record ed. [email or web address] Not Available 2016 16:31:59 Result Notes None recorded. Problems Name Problem SNOMED Code Status Onset Date Resolution Date Notes Provider Name and Address Organization Details Recorded Time Chronic kidney disease stage 3 545452970 Active 2013 Not Available [facility] 5 13:00:54 Benign hypertensive renal disease 632208 Active 2013 Not Available [facility] 5 13:00:54 Hyperlipidemi a 71232103 Active 2013 Not Available [facility] 5 13:00:54 Essential hypertension 84622352 Active 2016 [facility]oz [facility] 7 17:03:46 Total nephrectomy Active 2016 Roz Will [facility], [facility] 7 17:03:47 Problem Notes None recorded. Procedures Surgical History Date Name Laterality Status Provider Name and Address Organization Details Recorded Time 6 Other [facility] 08/13/2016 14:20:40 6 Shoulder joint surgery completed [facility], [facility] 08/13/2016 14:21:35 [address] [facility], [facility] 08/13/2016 14:20:55 Imaging Results None recorded. Procedure [...] Updated DateTime 9 167.64 cm 22 kg/m2 46220.5 6 g 60 /min 97 % 97 % 122/90 mm[Hg] An Ramachandran lynne [facility], [facility] 9 12:17:09 Date Recorded Body height Body mass index (BMI) Body weight Heart rate Systolic And Diastolic Provider Name and Address Organization Details Last Updated DateTime 11/18/2017 167.64 cm 21.6 kg/m2 87797.38 g 55 /min 130/82 mm[Hg] [facility] 11/18/2017 15:34:33 Date Recorded Body height Provider Name an d Address Organization Details Last Updated DateTime 02/04/2020 167.64 cm An Ramachandrano [facility], [facility] 02/04/2020 13:00:12 Date Recorded Body height Body mass index (BMI) Body weight Heart rate Oxygen saturation Oxygen saturation in Arterial blood by Pulse oximetry Systolic And Diastolic Provider Name and Address Organization Details Last Updated DateTime 9 167.64 cm 21.5 kg/m2 48431.7 9 g 95 /min 98 % 98 % 124/60 mm[Hg] Leatha Buckley [facility], [facility] 9 12:50:35 Date Recorded Body height Body mass index (BMI) Body weight Heart rate Systolic And Diastolic Provider Name and Address Organization Details Last Updated DateTime 05/29/2017 167.64 cm 21 kg/m2 36716.01 g 66 /min 120/80 mm[Hg] Peggy Ant [facility], [facility] 05/29/2017 16:13:15 Social History Question Answer Notes LastModified by Organizat ion Details LastModified Time Tobacco Smoking Status Never Smoker Halie marcelo [facility], [facility] 08/13/2016 14:19:58 Do You Have An Advance [...] SNOMED-CT Code Diagnosis ICD10 Code Diagnosis Note [id number] [facility] [address] [place] [address] 03/26/2014 00:00:00 [id number] [facility] [address] [place] [address] 05/24/2014 00:00:00 [id number] MD [facility] [address] [place] [address] 08/13/2016 13:38:15 08/13/2016 14:40:33 Chronic kidney disease stage 3 136859451 N18.3 G3a/A1, without proteinuri a in associatio n with solitary R kidney/CAU and HTN.Cr stable. Essential hypertension 90657145 I10 controlled .recommend ACEI/ARB. Total nephrectomy 426057 003 Z90.5 s/p L nephrectom y for CAU at age 7. [id number] MD [facility]han [facility] [address] [place] [address] 02/18/2017 16:27:32 02/18/2017 17:20:33 Chronic kidney disease stage 3 866554860 N18.3 G3a/A1, without proteinuri a in associatio n with solitary R kidney/CAU and HTN. Essential hypertension 46404503 I10 controlled .recommend ACEI/ARB. Total nephrectomy 282694 003 Z90.5 s/p L nephrectom y for CAU at age 7. [id number] MD [facility]han [facility] [address] [place] [address] 05/29/2017 15:45:50 05/29/2017 16:39:59 Chronic kidney disease stage 3 133215892 N18.3 G3a/A1, without proteinuri a in associatio n with solitary R kidney/CAU and HTN. Essential hypertension 20530152 I10 controlled .recommend ACEI/ARB. Total nephrectomy 737978 003 Z90.5 s/p L nephrectom y for CAU at age 7. [id number] MD Farhan [facility] [address] [place] [address] 11/18/2017 15:20:10 11/18/2017 15:59:01 Chronic kidney disease stage 3 283044254 N18.3 G3a/A1.wit hout proteinuri a in associatio n with solitary R kidney/CAU and HTN. Essential hypertension 89242330 I10 controlled .stop Amlodipine .change to losartan 50mg qhs. Total nephrectomy 119865 003 Z90.5 s/p L nephrectom y for CAU at age 7. [id number] MD Farhan [facility] [address] [place] [address] 09/04/2018 11:50:46 09/04/2018 12:38:35 Chronic kidney disease stage 3 [id number] N18.3 G3a/A1.wit hout proteinuri a in associatio n with solitary R kidney/CAU and HTN.GFR stable Essential hypertension 02953339 I10 controlled .on Norvasc 2.5 mg .Stopped Losartan on his own 6 months ago .Daily BP checks Total nephrectomy [id number] 003 Z90.5 s/p L nephrectom y for CAU at age 7. [id number] MD Farhan Michaels d Office [address] [place] [facility] [place] [address] 03/12/2019 12:41:48 03/12/2019 13:20:29 Chronic kidney disease stage 3 [id number] N18.3 G3a/A1.wit hout proteinuri a in associatio n with solitary R kidney/CAU and HTN.GFR stable is 44 today. Discussed with patient control his factors including avoiding NSAIDs and good control of hypertensi on. Hydration. Essential hypertension [id number] I10 controlled .on Norvasc 2.5 mg .Stopped Losartan on his own 6 months ago .Daily BP checks Total nephrectomy [id number] 003 Z90.5 s/p L nephrectom y for CAU at age 7. [id number] MD Farhan Michaels d Office [address] [place] [address] 02/04/2020 12:58:53 02/04/2020 14:35:10 Chronic kidney disease stage 3 [id number] N18.3 G3a/A1.wit hout proteinuri a in associatio n with solitary R kidney/CAU and HTN.GFR stable is 44 today. Discussed with patient control his factors including avoiding NSAIDs and good control of hypertensi on. Hydration. Discussed with her that he may have enlarged prostate. He will follow-up with urology. Essential hypertension [id number] I10 controlled .on Norvasc 2.5 mg .Stopped Losartan on his own 6 months ago .Daily BP checks Total nephrectomy [id number] 003 Z90.5 s/p L nephrectom y for [...] Ballesteros 02/06/2021 1 [place] Jerry Ballesteros [id number] Jerry Ballesteros Notes Date Note Type [...] doing well. Josep Elliott MD [address], [place], [address], [facility], [facility] 05/29/2017 16:36:36 11/18/2017 text/html 62 year old [...] Elliott MD [address] ,[address], [place], [address], [facility], [facility] 11/18/2017 15:55:32 09/04/2018 text/html 62 year old [...] Brooks MD [address], [place], [address], [facility], [facility] 09/04/2018 12:42:27 03/12/2019 text/html 62 year old [...] Brooks MD [address], [place], [address], [facility], [facility] 03/12/2019 15:11:42 02/04/2020 text/html This visit was [...] Brooks MD [address], [place], [address], [facility] 02/04/2020 16:19:29
[2025-03-07 11:22] VITALS: BP 123/78; PULSE 78; RESP 18; TEMP 36.8; O2SAT 96
--- NOTE | 2025-03-07 11:52 | ED.GENADULT ---
HPI - General Adult General Date Seen: 03/07/25 Chief complaint: Constipation Stated complaint: cramps, bleeding from rectum Time Seen by Provider: 03/07/25 11:51 History of Present Illness HPI narrative: 69 yo M who is currently on cefpodoxime for Klebsiella UTI. See my notes from 03/05 for details. Briefly he has a history of hypospadias an urethral strictures and does have to intermittently self catheterized because of urinary retention. He had a urologic procedure last week, UTI with admission last week and then was discharged home. I saw him 2 days ago because he needed to supply of his intermittent catheter so he can self catheterization at home of the infections going. He presents to the ER today with multiple concerns. He continues on his antibiotics for his UTI but is now noting that he has a dry mouth and a little bit of white material on his tongue. He worries that this might be a side effect of his antibiotic He continues to do his intermittent self catheterization and notes that his urine is coming out pretty good. This morning, for the 1st time since his infection started, he was actually able to urinate spontaneously. He is not noting any blood in his urine. He is also concerned about his stools. He had had a rectal surgery because of incontinence and control problems when he was a child. During most of his adult life he had dealt with troubles with diarrhea. For the past 4 years ago, since he moved home to [place] from [place], his bowel movements have been more constipated. He had been struggling with constipation had gone about 7-10 days without any bowel movement. This happens to him sometimes. Yesterday started to have abdominal cramping and a bloated feeling. On the advice of a friend, he took some gpnr-pue-lfrncme stool softener. He about 2 pills from [facility] pharmacy. He took 2 of them yesterday at about 4:00 a.m.. He had had a few bowel movements yesterday that were fairly hard and clumpy and also some watery. He expelled a lot of gas after the bowel movements and noted the cramping got better. He also started having some liquid bloody drainage from his rectum yesterday. He has had a little bit of incontinence of some liquid stool and a little bit of bloody drainage overnight. This morning, the bloody drainage is less. It is only a few drops on the toilet paper. He still having small clumpy stools. He feels as though there is a stool in his rectum that is on the verge of coming out but can not pass through Most recent CT of his abdomen and pelvis was . At that time it showed no perirectal inflammation or drainable abscess. It did show a moderate to large stool burden. I had seen on that visit because of a wound on his gluteal cleft. Related Data Home Medications ?Medication ?Instructions ?Recorded ?Confirmed clonazepam 0.5 mg tablet 0.5 mg PO DAILY 12/02/22 03/03/25 mirtazapine 7.5 mg tablet 7.5 mg PO HS 12/02/22 03/03/25 pravastatin 40 mg tablet 40 mg PO DAILY 12/02/22 03/02/25 amlodipine 5 mg tablet 5 mg PO DAILY 03/11/23 03/02/25 aspirin 81 mg tablet,delayed 81 mg PO DAILY 09/06/23 03/02/25 release (Adult Aspirin Regimen) ascorbic acid (vitamin C) 1,000 mg 1 g PO DAILY 03/03/25 03/03/25 tablet (Vitamin C) calcium carbonate (Oyster Shell 1,000 mg PO DAILY 03/03/25 03/03/25 Calcium) cholecalciferol (vitamin D3) 25 25 mcg PO DAILY 03/03/25 03/03/25 mcg (1,000 unit) tablet (Vitamin D3) loperamide 2 mg capsule 2 mg PO QID PRN 03/03/25 03/03/25 multivitamin (Daily Value tablet) 1 tab PO DAILY 03/03/25 03/03/25 Previous Rx's ?Medication ?Instructions ?Recorded cefpodoxime 100 mg tablet 100 mg PO BID #20 tabs 03/04/25 nystatin 100,000 unit/mL oral 5 ml PO Q6H swish and swall 7 days 03/07/25 suspension #140 mL Allergies Allergy/AdvReac Type Severity Reaction Status Date / Time No Known Drug Allergies Allergy Verified 03/07/25 11:22 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) ?Q42.3 - Congenital absence, atresia and stenosis of anus without fistula (ICD-10) Chronic diarrhea (09/09/08) ?K52.9 - Noninfective gastroenteritis and colitis, unspecified (ICD-10) Benign hypertensive renal disease (03/26/14) ?I12.9 - Hypertensive chronic kidney disease with stage 1 through stage 4 chronic kidney disease, or unspecified chronic kidney disease (ICD-10) Acquired absence of kidney (02/18/17) ?Z90.5 - Acquired absence of kidney (ICD-10) Social History What is your current living situation?: I presently have a place to live Problems where you live: declined to answer Problems where you live details: N/A In the past 12 months, utilities in danger of being shut off: no In past 12 months, lack of transportation kept you from medical appts, meetings, work, or getting things needed for daily living: no In the past 12 mos, have been you worried that your food would run out before you had money to buy more?: never true In the past 12 mos, the food you bought just didn't last and you didn't have money to buy more?: never true Highest level of school completed/degree received: some college, no degree Smoking Status: Never smoker Do you use any of these nicotine containing products: None How often do you have a drink containing alcohol: never How often do you have six or more drinks on one occasion: Never AUDIT-C Alcohol total score: 0 Non-prescribed substance use: denies use How often does anyone, including family, friends and others, physically hurt you: never How often does anyone, including family, friends and others, insult or talk down to you: never How often does anyone, including family, friends and others, threaten you with harm: never How often does anyone, including family, friends and others, scream or curse at you: never service: No Exam Narrative: Exam Narrative: Constitutional: Appears well-developed and well-nourished. Alert. Conversant. Non toxic. HENT: Head: Atraumatic. Nose: Nose normal. Mouth/Throat: Oral mucosa is clear and moist. He does have a little bit of whitish material on his tongue but not really plaques of whiteness to suggest that this is active thrush. I soft palate, hard palate, buccal mucosa are normal. no trismus. Pharynx normal. Tonsils symmetric. No tonsillar enlargement, erythema, or exudate. Eyes: Conjunctivae normal. EOM normal. Pupils equal, round, and reactive to light. No scleral icterus. Neck: Normal range of motion. Neck supple. No tracheal deviation present. Cardiovascular: Normal rate, regular rhythm. No gallop. No friction rub. No murmur heard. Symmetric radial artery pulses Pulmonary/Chest: Effort normal. No stridor. No respiratory distress. No wheezes. No rales. No rhonchi . No tenderness. Abdominal: Soft. Bowel sounds normal. No distension. No mass. Mild suprapubic and left lower quadrant tenderness. No rebound. No guarding. Rectal: Gluteal cleft normal. The skin of the external anus especially on the patient's left side is excoriated and raw. No active bleeding. There is a small amount of light brown semi solid stool present right at the rectal verge. Normal rectal tone. This is a fairly large, very hard stool just inside the rectal vault. I was able to rectally disimpact that and bring it on and small pieces using my right index finger. Subsequently, the patient felt more stool coming down I went to the bathroom but was only able to pass small amounts of liquid. Musculoskeletal: RUE: Normal range of motion. No tenderness. No deformity LUE: Normal range of motion. No tenderness. No deformity RLE: Normal range of motion. No edema. No tenderness. No deformity LLE: Normal range of motion. No edema. No tenderness. No deformity Neurological: Alert and oriented to person, place, and time. Normal strength. CN II-VII intact. No sensory deficit. GCS eye subscore is 4. GCS verbal subscore is 5. GCS motor subscore is 6. Normal coordination Skin: Skin is warm and dry. No rash noted. No pallor. Normal capillary refill. Psychiatric: Normal mood. Normal affect. Const: Vital Signs, click to edit/add: Vital Signs - 24 hr 03/07/25 11:22 Temperature 98.2 F Pulse Rate [Pulse Oximeter] 78 Respiratory Rate 18 Blood Pressure [Ri ght Upper Arm] 123/78 Pulse Oximetry 96 Oxygen Delivery Me thod Room Air Course Vital Signs Vital signs: Initial Vital Signs Temperature 98.2 F 03/07/25 11:22 Temperature Source Temporal Artery Scan 03/07/25 11:22 Pulse Rate 78 03/07/25 11:22 Respiratory Rate 18 03/07/25 11:22 Blood Pressure 123/78 03/07/25 11:22 Blood Pressure Mean 93 03/07/25 11:22 Blood Pressure Position Sitting 03/07/25 11:22 Pulse Oximetry 96 03/07/25 11:22 Oxygen Delivery Method Room Air 03/07/25 11:22 Vital Signs Temperature 98.2 F 03/07/25 11:22 Pulse Rate 78 03/07/25 11:22 Respiratory Rate 18 03/07/25 11:22 Blood Pressure 123/78 03/07/25 11:22 Pulse Oximetry 96 03/07/25 11:22 Oxygen Delivery Method Room Air 03/07/25 11:22 Temperature 98.2 F 03/07/25 11:22 Pulse Rate 78 03/07/25 11:22 Respiratory Rate 18 03/07/25 11:22 Blood Pressure 123/78 03/07/25 11:22 Pulse Oximetry 96 03/07/25 11:22 Oxygen Delivery Method Room Air 03/07/25 11:22 Medical Decision Making MDM Narrative Medical decision making narrative: 69-year-old gentleman presenting to the ER today with several concerns. 1. He is currently on antibiotics for UTI. It sounds like overall the UTI symptoms are getting better. Would recommend that he continue on that antibiotic for now. He is not febrile. He is hemodynamically stable. I do not see any sign that he is developing urosepsis. 2. He notes some white material on his tongue. He is worried that this is side effect of the antibiotic. Does have a little bit of whitish material on the tongue . I do not see any signs of blisters or desquamation or severe allergic reaction or drug reaction. I suspect he might be developing oral candidiasis. Will put him on oral nystatin 3. His primary concern is that he had been constipated for 7-10 days. He started having some crampy abdominal pain yesterday and some liquidy/bloody liquidy stool after taking 2 [id number]-helhznr laxative pills yesterday. He is concerned that he has constipation. He apparently had had a history of diarrhea over the for several decades of his life but for the past few years has been tending more toward constipation. He is worried because he does not want to do more stool softeners which might trigger diarrhea and irritate his rectum. At the same time he is having crampy pain because of the constipation. There appears to be some anxiety superimposed on this situation. After discussing options including workup with labs and imaging such as x-rays or CT, we decided to treat empirically for constipation. He recalls that he had had imaging last year and that it only showed that he was constipated. He does not have a history of colitis or inflammatory bowel disease, to my knowledge. He was not able to spontaneously pass the stool here in the ER. I was able to rectally disimpact a fairly large stool in the rectal vault. There is still some stool further up in the sigmoid colon and probably proximal to that but it is too proximal for me to disimpact. We discussed options including giving him enemas here in the ER. He does not want to do that. He feels like he can go home. I would recommend that he do a MiraLax bowel prep this afternoon to try to help clean out the residual stool. We discussed that he can take the MiraLax as if he is doing it for old colonoscopy prep but that he can stop the MiraLax as soon as he is passing satisfactory bowel movements. He does not have to do the entire prep or go until his rectal a fluent is clear. He will just take it until he is passing adequate amounts of feces. He also does have some irritation of his gluteal cleft and rectal mucosa which relates to his multiple attempts to pass the stool at home. I do not see any signs of a bleeding hemorrhoid or fissure. He does have small amounts of red blood on the outside of his formed stool. I do not think this represents a life-threatening source of lower GI bleeding. I do not think he needs hemoglobin measurement, admission for hemodynamic monitoring at this point. Precautions for return to the ER. Discharge Plan Discharge Clinical Impression: Constipation, Candidiasis of mouth Patient Disposition: Home, Self-Care Condition: Stable Instructions: Constipation (DC), Acute Abdominal Pain (DC) Additional Instructions: To help manage constipation you can take the following steps using a medication called MiraLax. MiraLax is available [id number]. Purchase one 8.3 ounce jar (238 g) of MiraLax Purchase 2 quarts (64 ounces) of Gatorade. Mix the entire jar MiraLax into the 64 oz of Gatorade. Stir until it is dissolved. If you like, you can put the Gatorade in the refrigerator to chill, but chilling it is not necessary Drink one 8 oz glass of this MiraLax mixture every 15-30 minutes until YOU ARE HAVING SATISFACTORY BOWEL MOVEMENTS. Drink 4 glasses of liquid (total of 32 oz) over 2 hours. Then, wait 1-2 hours and then resume the medication again if needed. It is okay to stop as soon as you are having satisfactory bowel movements. A bowel movement will typically occur within an hour after you drink the 1st glass. Bloating and abdominal cramping as well as nausea can occur from this medication As we discussed, return to the ER right away if you have any problems especially worsening abdominal pain, vomiting, or fever. Please recheck with your regular doctor within 1-2 days. Prescriptions: New nystatin 100,000 unit/mL suspension 5 ml PO Q6H 7 Days Qty: 140 0RF Rx Instructions: swish and swallow No Action pravastatin 40 mg tablet 40 mg PO DAILY clonazepam 0.5 mg tablet 0.5 mg PO DAILY Patient Comments: AND NEEDED mirtazapine 7.5 mg tablet 7.5 mg PO HS aspirin [Adult Aspirin Regimen] 81 mg tablet,delayed release (DR/EC) 81 mg PO DAILY amlodipine 5 mg tablet 5 mg PO DAILY Patient Comments: TAKE 1 TABLET (5 MG) BY MOUTH ONCE DAILY. calcium carbonate [Oyster Shell Calcium] 500 mg calcium (1,250 mg) tablet 1,000 mg PO DAILY cholecalciferol (vitamin D3) [Vitamin D3] 25 mcg (1,000 unit) tablet 25 mcg PO DAILY loperamide 2 mg capsule 2 mg PO QID PRN multivitamin [Daily Value] Tablet 1 tab PO DAILY ascorbic acid (vitamin C) [Vitamin C] 1,000 mg tablet 1 g PO DAILY cefpodoxime 100 mg tablet 100 mg PO BID Qty: 20 0RF Rx Instructions: must administer with a meal/food Follow Up/Referrals: Natalie Juárez DO [Primary Care Provider, Family Practice] Stand Alone Forms: [facility] Info Instructions
--- OUTSIDE RECORDS SUMMARY | 2025-03-07 12:54 | XMS_ITS | CCD ---
Author Name Interface, [id number] [address] Organization [facility] [place] [address] Allergies and Adverse Reactions Medication/Group Name Reaction [...]
--- OUTSIDE RECORDS SUMMARY | 2025-03-07 12:54 | XMS_ITS | CCD ---
Author Name Interface, [id number] [address] Organization [facility] [place] [address] Allergies and Adverse Reactions Medication/Group Name Reaction [...]
[2025-03-07 14:17] VITALS: BP 121/78; PULSE 68; RESP 18; TEMP 36.8
== END 2025-03-07 14:18 | disposition home or self-care (01) ==
PROVIDERS: Emergency Provider Emergency Medicine; PCP Family Medicine
DX: K59.00 Constipation, unspecified (principal); N39.0 Urinary tract infection, site not specified; B96.1 Klebsiella pneumoniae [K. pneumoniae] as the cause of diseases classified elsewhere; R33.9 Retention of urine, unspecified; B37.0 Candidal stomatitis
CPT/HCPCS: 99282; 99283

== ENCOUNTER 2025-03-09 04:44 | Outpatient (CLI) | payer MEDICARE, SELFPAY | END 2025-03-09 04:45 | disposition home or self-care (01) | PROVIDERS: PCP Family Medicine; Visit Provider Family Medicine | DX: R10.9 Unspecified abdominal pain (principal); R19.7 Diarrhea, unspecified | CPT/HCPCS: A0425; A0427 ==

== ENCOUNTER 2025-03-09 04:59 | Emergency (ER) | payer MEDICARE, SELFPAY ==
[2025-03-09 05:01] VITALS: BP 146/82; PULSE 71; RESP 18; TEMP 36.4; O2SAT 99; BMI 23.6
--- OUTSIDE RECORDS SUMMARY | 2025-03-09 05:01 | XMS_ITS | Continuity of Care Document ---
Author Organization [facility] Address [address] 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 Procedures Surgical History Date Name Laterality Status Provider Name and Address Organization Details Recorded Time 5 Bladder Scan cancelled Kayla Denson [facility] 09/11/2024 15:45:28 3 Bladder Scan completed Pilar Smith [facility] 08/22/2023 10:45:31 3 UroCuff completed Erma Alvse [facility] 08/08/2023 16:46:48 3 Bladder Scan completed Erma Alves [facility] 08/08/2023 16:22:41 3 Bladder Scan completed Romie Santos [facility] 02/27/2023 15:07:12 3 Bladder Scan completed Venkatesh Ontiveros MD [address], [place], [address], [facility] 09/27/2022 12:46:00 0 colonoscopy completed Pilar Smith [facility] 08/22/2023 10:42:53 Imaging Results None [...] Tobacco Smoking Status Former Smoker Miriam marcelo, [place] - [facility] 09/27/2022 12:24:21 What Is Your Level Of Caffeine Consumption? Moderate Information not available 02/27/2023 When Did You Quit Smoking? 1-5yearssince lastcigarette [email or web address] Information not available 08/22/2023 Recreational Drug Use No Information not available 02/27/2023 What Was The Date Of Your Most Recent Tobacco Screening? 08/22/2023 [email or web address] Information not available 08/22/2023 What Is Your [...] History Nothing Reported. Medical History Condition Response Diabetes N Sexually Transmitted Infection N Bleeding Disorder N High Blood Pressure Y Kidney Stones N Cancer N Lung Disease N Depression Y High Cholesterol Y GERD/Acid Reflux Y Heart Disease N Immunizations Vaccine Type Date Status Note Provider Nam e and Address Organization Details Recorded Time COVID-19, mRNA, LNP-S, PF, 50 mcg/0.5 mL 3 completed Pilar marcelo [facility] 08/22/2023 10:42:13 Influenza, split virus, quadrivalent, PF 3 completed Pilar marcelo [facility] 08/22/2023 10:42:13 COVID-19, mRNA, LNP-S, PF, 50 mcg/0.5 mL 4 completed Not Available [facility] 03/01/2025 14:54:25 Influenza, split virus, trivalent, preservative 4 completed Not Available [facility] 03/01/2025 14:54:25 zoster recombinant 2 completed Jenny marcelo [facility] 07/03/2023 17:11:29 zoster recombinant 2 completed Jenny marcelo [facility] 07/03/2023 17:11:29 COVID-19, mRNA, LNP-S, PF, 100 mcg/0.5mL dose or 50 mcg/0.25mL dose 1 completed Jenny marcelo [facility] 07/03/2023 17:11:29 COVID-19, mRNA, LNP-S, PF, 100 mcg/0.5mL dose or 50 mcg/0.25mL dose 1 completed Jenny marcelo [facility] 07/03/2023 17:11:29 COVID-19, mRNA, LNP-S, PF, 100 mcg/0.5mL dose or 50 mcg/0.25mL dose 2 completed Jenny marcelo [facility] 07/03/2023 17:11:29 COVID-19, mRNA, LNP-S, PF, 100 mcg/0.5mL dose or 50 mcg/0.25mL dose 1 completed Jenny marcelo [facility] 07/03/2023 17:11:29 COVID-19, mRNA, LNP-S, bivalent, PF, 50 mcg/0.5 mL or 25mcg/0.25 mL dose 2 dayana marcelo [facility] 07/03/2023 17:11:29 Tdap 9 completed Jenny marcelo [facility] 07/03/2023 17:11:29 Influenza, split virus, trivalent, preservative 8 dayana marcelo [facility] 07/03/2023 17:11:29 Past Encounters Encounter ID Performer Location Encounter Start Date Encounter Closed Date Diagnosis/Indication Diagnosis SNOMED-CT Code Diagnosis ICD10 Code Diagnosis Note [id number] MD CHANDA ROMAN_Isabel [address] [place] [address] 03/01/2025 14:50:39 03/01/2025 16:41:07 Retention of urine [id number] R33.9 evaluated at [facility] most recently on 02/08/25per history and prior [...] ID Guarantor Name 03/01/2025 1 [place]: [employer] Jerry Ballesteros [id number] Jerry Ballesteros Notes Date Note Type Note Provider Name and Address Organization Details Recorded Time 03/01/2025 text/html Date of Cvjqkti3603/01/2025 Indication:urinary retention Referring Physician:Fab Testing today included: Uroflow, multichannel cystometry, EMG, and pressure flow study. Details of procedure:After discussing the purpose and nature of visit, the patient consented to proceed.Uroflow:Uroflo w #1 (prior to [facility]) Patient [id number] Maximum flow rate39.8mL/s Average flow rate9.3Post void [id number] mL (CIC) Uroflow #2 (post [facility]- see nona notes) Patient [id number] Maximum flow rate23.4mL/s Average flow rate5 ml/sPost void residual<50 Filling phase: 7 fr air charged catheters were used. Fill rate:35-60mL/minute The first sensation of bladder filling occurred at55mL The first desire to void occurred [id number] The strong desire to void occurred [id number] The maximum capacity [id number] The bladder compliance isnormal Detrusor pressure during filling isnormal Detrusor Overactivity: No DO noted Stress Urinary Incontinence: No RUBIO Pressure flow study:Patient [id number] after permission to void was given. Maximum flow rate3.4mL/s with PDet at max flow-2cm H2O. Post void [id number] mL. Visual detrusor contractionwas notnoted. Abdominal strainingwasnoted. [...] residual contents this way. Nona name:An marcelo [place] - [facility] 03/01/2025 16:41:02
--- OUTSIDE RECORDS SUMMARY | 2025-03-09 05:01 | XMS_ITS | CCD ---
Author Name Interface, [id number] [address] Organization [facility] [place] [address] Allergies and Adverse Reactions Medication/Group Name Reaction [...]
--- OUTSIDE RECORDS SUMMARY | 2025-03-09 05:01 | XMS_ITS | Data Portability ---
Author Organization ID - [employer], Work [employer] - INACTIVE OF 12/30/15 [address] [place] [address] Care Team Providers Care Vocational Education Professional Name Role Phone SAMEERA RIDLEY Primary Care [...] hormone), intact, serum or plasma 2019 021 [facility], [address] [facility], [address], [place], [address], 1 15:55:27 vitamin D, 25-hydroxy , total, serum [facility], [address] [facility], [address], [place], [address], 1 15:55:27 CBC w/ auto diff 2019 [facility], [address] [facility] [address], [address], [place], [address], 1 13:57:47 magnesium, serum or plasma 2019 [facility], [address], [address], [address], [place], [address], 1 15:55:27 protein:cr eatinine ratio, urine 2019 [facility], [address], [address], [place], [address], 1 15:55:27 uric acid, serum or plasma 2019 021 [facility], [address], [address], [address], [place], [address], 1 15:55:27 renal function panel, serum 2019 021 [facility], [address], [address], [address], [place], [address], 1 15:55:27 PTH (parathyro id hormone), intact, serum or plasma 2018 [facility], [address], [address], [address], [place], [address], 0 19:51:03 vitamin D, 25-hydroxy , total, serum 2018 [facility], [address], [address], [place], [address], 0 19:51:03 CBC w/ auto diff 2018 [facility], [address], [address], [address], [place], [address], 0 19:51:03 magnesium, serum or plasma 2018 020 [facility], [address], [address], [address], [place], [address], 0 19:51:03 protein:cr eatinine ratio, urine 2018 020 [facility], [address], [address], [address], [place], [address], 0 19:51:03 uric acid, serum or plasma 2018 020 [facility], [address], [address], [address], [place], [address], 0 19:51:03 renal function panel, serum 2018 020 [facility], [address], [address], [address], [place], [address], 0 19:51:03 magnesium, blood 2018 019 [facility], [address], [address], [place], [address], 9 14:09:34 phosphorus , blood 2018 019 [facility], [address], [address], [place], [address], 9 14:09:34 protein:cr eatinine ratio, urine 2018 019 [facility], [address], [address], [place], [address], 9 18:56:10 uric acid, serum or plasma 2018 019 [facility], [address], [address], [address], [place], [address], 9 14:09:34 BMP, serum or plasma 2018 019 [facility], [address], [address], [place], [address], 9 14:09:34 CMP, serum or plasma 2017 018 [facility], [address], [address], [address], [place], [address], 9 17:00:34 magnesium, blood 2017 018 [facility], [address], [address], [address], [place], [address], 8 20:07:04 phosphorus , blood 2017 018 [facility], [address], [address], [address], [place], [address], 8 20:07:04 protein:cr eatinine ratio, urine 2017 018 [facility], [address], [address], [address], [place], [address], 8 20:07:04 CBC w/ auto diff 2017 018 [facility], [address], [address], [address], [place], [address], 9 16:56:21 uric acid, serum or plasma 2017 018 [facility], [address], [address], [place], [address], 8 20:07:04 urinalysis complete, reflex culture 2017 018 [facility], [address], [address], [address], [place], [address], 9 16:56:21 urinalysis , dipstick, reflex micro 2017 018 [facility], [address], [address], [address], [place], [address], 8 20:07:04 CMP, serum or plasma 2016 017 [facility], [address], [address], [address], [place], [address], 8 19:46:50 magnesium, blood 2016 017 [facility], [address], [address], [address], [place], [address], 8 19:46:50 phosphorus , blood 2016 017 [facility], [address], [address], [address], [place], [address], 8 19:46:50 protein:cr eatinine ratio, urine 2016 017 [facility], [address], [address], [address], [place], [address], 8 19:46:50 CBC w/ auto diff 2016 017 [facility], [address], [address], [place], [address], 03/20/201 8 19:46:50 urinalysis , dipstick, reflex micro 2016 017 [facility], [address] [place], [address], [place], [address], 8 19:46:50 uric acid, serum or plasma 2016 017 [facility], [address] [place] [address] [address], [address], [place], [address], 8 19:46:51 Referral None recorded. Procedures None recorded. Surgeries None recorded. Imaging None recorded. Medication Orders losartan 50 mg tablet 2017 [email or web address] [facility], [address] [place] [address], [address], 9 12:17:21 Patient TargetsNo targets recorded. Patient InstructionsNo instructions recorded. Reason for Referral None Reported. Results Created Date Observation Date Name Description Value Unit Range Abnormal Flag Note LastModifiedBy Organization Detail LastModifiedTime 05/23/20 17 05/23/2017 lipid panel , serum color, urine straw Not Available [address], [address], [place], [address], 05/23/2017 17:03:45 05/23/20 17 05/23/2017 lipid panel , serum clarity, urine clear Not Available [address], [address], [place], [address], 05/23/2017 17:03:45 05/23/20 17 05/23/2017 lipid panel , serum pH, urine 1.006 Not Available [address], [address], [place], [address], 05/23/2017 17:03:45 05/23/20 17 05/23/2017 lipid panel , serum protein, urine negati ve Not Available [facility] [address], [address], [place], [address], 05/23/2017 17:03:45 05/23/20 17 05/23/2017 lipid panel , serum glucose, urine negati ve Not Available [facility] [address], [address], [place], [address], 05/23/2017 17:03:45 05/23/20 17 05/23/2017 lipid panel , serum ketones, urine negati ve Not Available [facility] [address], [address], [place], [address], 05/23/2017 17:03:45 05/23/20 17 05/23/2017 lipid panel , serum bilirubin, urine negati ve Not Available [facility] [address], [address], [place], [address], 05/23/2017 17:03:45 05/23/20 17 05/23/2017 lipid panel , serum blood, urine negati ve Not Available [facility] [address], [address], [place], [address], 05/23/2017 17:03:45 05/23/20 17 05/23/2017 lipid panel , serum nitrite, urine negati ve Not Available [facility] [address], [address], [place], [address], 05/23/2017 17:03:45 05/23/20 17 05/23/2017 lipid panel , serum leukocyte esterase negati ve Not Available [facility] [address], [address], [place], [address], 05/23/2017 17:03:45 05/23/20 17 05/23/2017 lipid panel , serum urobilinogen , urine <2.0 Not Available [facility] [address], [address], [place], [address], 05/23/2017 17:03:45 05/23/20 17 05/23/2017 lipid panel , serum protein, urine, random 9.8 Not Available [facility] [address], [address], [place], [address], 05/23/2017 17:03:45 05/23/20 17 05/23/2017 lipid panel , serum creatinine, urine, random 24.9 Not Available [facility] [address], [address], [place], [address], 05/23/2017 17:03:45 05/23/20 17 05/23/2017 lipid panel , serum HGB 14.7 Not Available [facility] [address], [address], [place], [address], 05/23/2017 17:03:45 05/23/20 17 05/23/2017 lipid panel , serum HCT 44.5 Not Available [facility] [address], [address], [place], [address], 05/23/2017 17:03:45 05/23/20 17 05/23/2017 lipid panel , serum WBC 4.5 Not Available [facility] [address], [address], [place], [address], 05/23/2017 17:03:45 05/23/20 17 05/23/2017 lipid panel , serum plt 212 Not Available [facility] [address], [address], [place], [address], 05/23/2017 17:03:45 05/23/20 17 05/23/2017 lipid panel , serum sodium, serum 137 Not Available [facility] [address], [address], [place], [address], 05/23/2017 17:03:45 05/23/20 17 05/23/2017 lipid panel , serum potassium, serum 3.5 Not Available [facility] [address], [address], [place], [address], 05/23/2017 17:03:45 05/23/20 17 05/23/2017 lipid panel , serum chloride, serum 99 Not Available [facility] [address] [facility] [address], [address], [place], [address], 05/23/2017 17:03:45 05/23/20 17 05/23/2017 lipid panel , serum carbon dioxide 27 Not Available [facility] [address] [facility] [address], [address], [place], [address], 05/23/2017 17:03:45 05/23/20 17 05/23/2017 lipid panel , serum calcium, serum 9.0 Not Available [facility] [address] [facility] [address], [address], [place], [address], 05/23/2017 17:03:45 05/23/20 17 05/23/2017 lipid panel , serum glucose, serum 101 Not Available [facility] [address] [facility] [address], [address], [place], [address], 05/23/2017 17:03:45 05/23/20 17 05/23/2017 lipid panel , serum BUN 24 Not Available [facility] [address] [place] [address], [address], [place], [address], 05/23/2017 17:03:45 05/23/20 17 05/23/2017 lipid panel , serum creatinine 1.60 Not Available [facility] [address] [facility] [address], [address], [place], [address], 05/23/2017 17:03:45 05/23/20 17 05/23/2017 lipid panel , serum GFR 44 Not Available [facility] [address] [place] [address], [address], [place], [address], 05/23/2017 17:03:45 05/23/20 17 05/23/2017 lipid panel , serum bilirubin, total 0.5 Not Available [facility] [address] [place] [address], [address], [place], [address], 05/23/2017 17:03:45 05/23/20 17 05/23/2017 lipid panel , serum alkaline phosphatase 43 Not Available [facility] [address], [address], [place], [address], 05/23/2017 17:03:45 05/23/20 17 05/23/2017 lipid panel , serum albumin, serum 4.1 Not Available [facility] [address] [place] [address], [address], [place], [address], 05/23/2017 17:03:45 05/23/20 17 05/23/2017 lipid panel , serum protein, total, serum 7.0 Not Available [facility] [address], [address], [place], [address], 05/23/2017 17:03:45 05/23/20 17 05/23/2017 lipid panel , serum magnesium 1.8 Not Available [facility] [address], [address], [place], [address], 05/23/2017 17:03:45 05/23/20 17 05/23/2017 lipid panel , serum phosphorus 2.8 Not Available [facility] [address], [address], [place], [address], 05/23/2017 17:03:45 05/23/20 17 05/23/2017 lipid panel , serum uric acid 6.1 Not Available [facility] [address], [address], [place], [address], 05/23/2017 17:03:45 05/23/20 17 05/23/2017 lipid panel , serum PSA, total 0.762 Not Available [facility] [address] [facility] [address], [address], [place], [address], 05/23/2017 17:03:45 05/23/20 17 05/23/2017 PSA, serum or plasm a color, urine straw Not Available [facility] [address] [facility] [address], [address], [place], [address], 05/23/2017 17:03:45 05/23/20 17 05/23/2017 PSA, serum or plasm a clarity, urine clear Not Available [facility] [address] [facility] [address], [address], [place], [address], 05/23/2017 17:03:45 05/23/20 17 05/23/2017 PSA, serum or plasm a pH, urine 1.006 Not Available [facility] [address] [facility] [address], [address], [place], [address], 05/23/2017 17:03:45 05/23/20 17 05/23/2017 PSA, serum or plasm a protein, urine negati ve Not Available [facility] [address] [facility] [address], [address], [place], [address], 05/23/2017 17:03:45 05/23/20 17 05/23/2017 PSA, serum or plasm a glucose, urine negati ve Not Available [facility] [address] [facility] [address], [address], [place], [address], 05/23/2017 17:03:45 05/23/20 17 05/23/2017 PSA, serum or plasm a ketones, urine negati ve Not Available [facility] [address] [facility] [address], [address], [place], [address], 05/23/2017 17:03:45 05/23/20 17 05/23/2017 PSA, serum or plasm a bilirubin, urine negati ve Not Available [facility] [address] [facility] [address], [address], [place], [address], 05/23/2017 17:03:45 05/23/20 17 05/23/2017 PSA, serum or plasm a blood, urine negati ve Not Available [facility] [address] [facility] [address], [address], [place], [address], 05/23/2017 17:03:45 05/23/20 17 05/23/2017 PSA, serum or plasm a nitrite, urine negati ve Not Available [facility] [address] [facility] [address], [address], [place], [address], 05/23/2017 17:03:45 05/23/20 17 05/23/2017 PSA, serum or plasm a leukocyte esterase negati ve Not Available [facility] [address] [facility] [address], [address], [place], [address], 05/23/2017 17:03:45 05/23/20 17 05/23/2017 PSA, serum or plasm a urobilinogen , urine <2.0 Not Available [facility] [address] [facility] [address], [address], [place], [address], 05/23/2017 17:03:45 05/23/20 17 05/23/2017 PSA, serum or plasm a protein, urine, random 9.8 Not Available [facility] [address] [facility] [address], [address], [place], [address], 05/23/2017 17:03:45 05/23/20 17 05/23/2017 PSA, serum or plasm a creatinine, urine, random 24.9 Not Available [facility] [address] [facility] [address], [address], [place], [address], 05/23/2017 17:03:45 05/23/20 17 05/23/2017 PSA, serum or plasm a HGB 14.7 Not Available [facility] [address] [facility] [address], [address], [place], [address], 05/23/2017 17:03:45 05/23/20 17 05/23/2017 PSA, serum or plasm a HCT 44.5 Not Available [facility] [address] [facility] [address], [address], [place], [address], 05/23/2017 17:03:45 05/23/20 17 05/23/2017 PSA, serum or plasm a WBC 4.5 Not Available [facility] [address] [facility] [address], [place], [address], 05/23/2017 17:03:45 05/23/20 17 05/23/2017 PSA, serum or plasm a plt 212 Not Available [facility] [address] [facility] [address], [place], [address], 05/23/2017 17:03:45 05/23/20 17 05/23/2017 PSA, serum or plasm a sodium, serum 137 Not Available [facility] [address] [facility] [address], [address], [place], [address], 05/23/2017 17:03:45 05/23/20 17 05/23/2017 PSA, serum or plasm a potassium, serum 3.5 Not Available [facility] [address] [facility] [address], [address], [place], [address], 05/23/2017 17:03:45 05/23/20 17 05/23/2017 PSA, serum or plasm a chloride, serum 99 Not Available [facility] [address] [facility] [address], [address], [place], [address], 05/23/2017 17:03:45 05/23/20 17 05/23/2017 PSA, serum or plasm a carbon dioxide 27 Not Available [facility] [address] [facility] [address], [address], [place], [address], 05/23/2017 17:03:45 05/23/20 17 05/23/2017 PSA, serum or plasm a calcium, serum 9.0 Not Available [facility] [address] [facility] [address], [place], [address], 05/23/2017 17:03:45 05/23/20 17 05/23/2017 PSA, serum or plasm a glucose, serum 101 Not Available [facility] [address] [facility] [address], [place], [address], 05/23/2017 17:03:45 05/23/20 17 05/23/2017 PSA, serum or plasm a BUN 24 Not Available [facility] [address] [facility] [address], [address], [place], [address], 05/23/2017 17:03:45 05/23/20 17 05/23/2017 PSA, serum or plasm a creatinine 1.60 Not Available [facility] [address] [facility] [address], [place], [address], 05/23/2017 17:03:45 05/23/20 17 05/23/2017 PSA, serum or plasm a GFR 44 Not Available [facility] [address] [facility] [address], [place], [address], 05/23/2017 17:03:45 05/23/20 17 05/23/2017 PSA, serum or plasm a bilirubin, total 0.5 Not Available [facility] [address] [facility] [address], [address], [place], [address], 05/23/2017 17:03:45 05/23/20 17 05/23/2017 PSA, serum or plasm a alkaline phosphatase 43 Not Available [facility] [address] [facility] [address], [address], [place], [address], 05/23/2017 17:03:45 05/23/20 17 05/23/2017 PSA, serum or plasm a albumin, serum 4.1 Not Available [address] [facility] [address], [address], [place], [address], 05/23/2017 17:03:45 05/23/20 17 05/23/2017 PSA, serum or plasm a protein, total, serum 7.0 Not Available [facility] [address] [facility] [address], [address], [place], [address], 05/23/2017 17:03:45 05/23/20 17 05/23/2017 PSA, serum or plasm a magnesium 1.8 Not Available [address] [facility] [address], [address], [place], [address], 05/23/2017 17:03:45 05/23/20 17 05/23/2017 PSA, serum or plasm a phosphorus 2.8 Not Available [address] [facility] [address], [address], [place], [address], 05/23/2017 17:03:45 05/23/20 17 05/23/2017 PSA, serum or plasm a uric acid 6.1 Not Available [address] [facility] [address], [address], [place], [address], 05/23/2017 17:03:45 05/23/20 17 05/23/2017 PSA, serum or plasm a PSA, total 0.762 Not Available [address] [facility] [address], [address], [place], [address], 05/23/2017 17:03:45 05/23/20 17 05/23/2017 uric acid, serum or plasm a color, urine straw Not Available [facility] [address] [facility] [address], [address], [place], [address], 05/23/2017 17:03:45 05/23/20 17 05/23/2017 uric acid, serum or plasm a clarity, urine clear Not Available [facility] [address] [facility] [address], [place], [address], 05/23/2017 17:03:45 05/23/20 17 05/23/2017 uric acid, serum or plasm a pH, urine 1.006 Not Available [facility] [address] [facility] [address], [place], [address], 05/23/2017 17:03:45 05/23/20 17 05/23/2017 uric acid, serum or plasm a protein, urine negati ve Not Available [facility] [address] [facility] [address], [address], [place], [address], 05/23/2017 17:03:45 05/23/20 17 05/23/2017 uric acid, serum or plasm a glucose, urine negati ve Not Available [facility] [address] [facility] [address], [address], [place], [address], 05/23/2017 17:03:45 05/23/20 17 05/23/2017 uric acid, serum or plasm a ketones, urine negati ve Not Available [facility] [address] [facility] [address], [place], [address], 05/23/2017 17:03:45 05/23/20 17 05/23/2017 uric acid, serum or plasm a bilirubin, urine negati ve Not Available [facility] [address] [facility] [address], [address], [place], [address], 05/23/2017 17:03:45 05/23/20 17 05/23/2017 uric acid, serum or plasm a blood, urine negati ve Not Available [facility] [address] [facility] [address], [place], [address], 05/23/2017 17:03:45 05/23/20 17 05/23/2017 uric acid, serum or plasm a nitrite, urine negati ve Not Available [facility] [address] [facility] [address], [address], [place], [address], 05/23/2017 17:03:45 05/23/20 17 05/23/2017 uric acid, serum or plasm a leukocyte esterase negati ve Not Available [facility] [address] [facility] [address], [address], [place], [address], 05/23/2017 17:03:45 05/23/20 17 05/23/2017 uric acid, serum or plasm a urobilinogen , urine <2.0 Not Available [facility] [address] [facility] [address], [place], [address], 05/23/2017 17:03:45 05/23/20 17 05/23/2017 uric acid, serum or plasm a protein, urine, random 9.8 Not Available [facility] [address] [facility] [address], [place], [address], 05/23/2017 17:03:45 05/23/20 17 05/23/2017 uric acid, serum or plasm a creatinine, urine, random 24.9 Not Available [facility] [address] [facility] [address], [place], [address], 05/23/2017 17:03:45 05/23/20 17 05/23/2017 uric acid, serum or plasm a HGB 14.7 Not Available [facility] [address] [facility] [address], [place], [address], 05/23/2017 17:03:45 05/23/20 17 05/23/2017 uric acid, serum or plasm a HCT 44.5 Not Available [facility] [address] [facility] [address], [place], [address], 05/23/2017 17:03:45 05/23/20 17 05/23/2017 uric acid, serum or plasm a WBC 4.5 Not Available [facility] [address] [facility] [address], [place], [address], 05/23/2017 17:03:45 05/23/20 17 05/23/2017 uric acid, serum or plasm a plt 212 Not Available [facility] [address] [facility] [address], [place], [address], 05/23/2017 17:03:45 05/23/20 17 05/23/2017 uric acid, serum or plasm a sodium, serum 137 Not Available [facility] [address] [facility] [address], [place], [address], 05/23/2017 17:03:45 05/23/20 17 05/23/2017 uric acid, serum or plasm a potassium, serum 3.5 Not Available [facility] [address] [facility] [address], [place], [address], 05/23/2017 17:03:45 05/23/20 17 05/23/2017 uric acid, serum or plasm a chloride, serum 99 Not Available [facility] [address] [facility] [address], [place], [address], 05/23/2017 17:03:45 05/23/20 17 05/23/2017 uric acid, serum or plasm a carbon dioxide 27 Not Available [facility] [address] [facility] [address], [place], [address], 05/23/2017 17:03:45 05/23/20 17 05/23/2017 uric acid, serum or plasm a calcium, serum 9.0 Not Available [facility] [address] [facility] [address], [place], [address], 05/23/2017 17:03:45 05/23/20 17 05/23/2017 uric acid, serum or plasm a glucose, serum 101 Not Available [facility] [address] [facility] [address], [address], [place], [address], 05/23/2017 17:03:45 05/23/20 17 05/23/2017 uric acid, serum or plasm a BUN 24 Not Available [facility] [address] [facility] [address], [address], [place], [address], 05/23/2017 17:03:45 05/23/20 17 05/23/2017 uric acid, serum or plasm a creatinine 1.60 Not Available [facility] [address] [facility] [address], [address], [place], [address], 05/23/2017 17:03:45 05/23/20 17 05/23/2017 uric acid, serum or plasm a GFR 44 Not Available [facility] [address] [facility] [address], [address], [place], [address], 05/23/2017 17:03:45 05/23/20 17 05/23/2017 uric acid, serum or plasm a bilirubin, total 0.5 Not Available [facility] [address] [facility] [address], [place], [address], 05/23/2017 17:03:45 05/23/20 17 05/23/2017 uric acid, serum or plasm a alkaline phosphatase 43 Not Available [facility] [address] [facility] [address], [address], [place], [address], 05/23/2017 17:03:45 05/23/20 17 05/23/2017 uric acid, serum or plasm a albumin, serum 4.1 Not Available [facility] [address], [address], [place], [address], 05/23/2017 17:03:45 05/23/20 17 05/23/2017 uric acid, serum or plasm a protein, total, serum 7.0 Not Available [facility] [address] [facility] [address], [address], [place], [address], 05/23/2017 17:03:45 05/23/20 17 05/23/2017 uric acid, serum or plasm a magnesium 1.8 Not Available [facility] [address] [facility] [address], [address], [place], [address], 05/23/2017 17:03:45 05/23/20 17 05/23/2017 uric acid, serum or plasm a phosphorus 2.8 Not Available [facility] [address] [place] [address] [address], [address], [place], [address], 05/23/2017 17:03:45 05/23/20 17 05/23/2017 uric acid, serum or plasm a uric acid 6.1 Not Available [facility] [address] [facility] [address], [address], [place], [address], 05/23/2017 17:03:45 05/23/20 17 05/23/2017 uric acid, serum or plasm a PSA, total 0.762 Not Available [facility] [address] [facility] [address], [address], [place], [address], 05/23/2017 17:03:45 05/23/20 17 05/23/2017 phosp horus , blood color, urine straw Not Available [facility] [address] [facility] [address], [address], [place], [address], 05/23/2017 17:03:45 05/23/20 17 05/23/2017 phosp horus , blood clarity, urine clear Not Available [facility] [address], [place], [address], 05/23/2017 17:03:45 05/23/20 17 05/23/2017 phosp horus , blood pH, urine 1.006 Not Available [facility] [address], [place], [address], 05/23/2017 17:03:45 05/23/20 17 05/23/2017 phosp horus , blood protein, urine negati ve Not Available [facility] [address] [place], [address], [place], [address], 05/23/2017 17:03:45 05/23/20 17 05/23/2017 phosp horus , blood glucose, urine negati ve Not Available [facility] [address], [address], [place], [address], 05/23/2017 17:03:45 05/23/20 17 05/23/2017 phosp horus , blood ketones, urine negati ve Not Available [facility] [address], [place], [address], 05/23/2017 17:03:45 05/23/20 17 05/23/2017 phosp horus , blood bilirubin, urine negati ve Not Available [facility] [address], [place], [address], 05/23/2017 17:03:45 05/23/20 17 05/23/2017 phosp horus , blood blood, urine negati ve Not Available [facility] [address], [address], [place], [address], 05/23/2017 17:03:45 05/23/20 17 05/23/2017 phosp horus , blood nitrite, urine negati ve Not Available [facility] [address], [address], [place], [address], 05/23/2017 17:03:45 05/23/20 17 05/23/2017 phosp horus , blood leukocyte esterase negati ve Not Available [facility] [address] [facility] [address], [address], [place], [address], 05/23/2017 17:03:45 05/23/20 17 05/23/2017 phosp horus , blood urobilinogen , urine <2.0 Not Available [facility] [address], [address], [place], [address], 05/23/2017 17:03:45 05/23/20 17 05/23/2017 phosp horus , blood protein, urine, random 9.8 Not Available [facility] [address] [facility] [address], [address], [place], [address], 05/23/2017 17:03:45 05/23/20 17 05/23/2017 phosp horus , blood creatinine, urine, random 24.9 Not Available [facility] [address], [address], [place], [address], 05/23/2017 17:03:45 05/23/20 17 05/23/2017 phosp horus , blood HGB 14.7 Not Available [facility] [address] [address], [place], [address], 05/23/2017 17:03:45 05/23/20 17 05/23/2017 phosp horus , blood HCT 44.5 Not Available [facility] [address], [place], [address], 05/23/2017 17:03:45 05/23/20 17 05/23/2017 phosp horus , blood WBC 4.5 Not Available [facility] [address], [address], [place], [address], 05/23/2017 17:03:45 05/23/20 17 05/23/2017 phosp horus , blood plt 212 Not Available [facility] [address], [place], [address], 05/23/2017 17:03:45 05/23/20 17 05/23/2017 phosp horus , blood sodium, serum 137 Not Available [facility] [address], [place], [address], 05/23/2017 17:03:45 05/23/20 17 05/23/2017 phosp horus , blood potassium, serum 3.5 Not Available [facility] [address], [place], [address], 05/23/2017 17:03:45 05/23/20 17 05/23/2017 phosp horus , blood chloride, serum 99 Not Available [facility] [address], [address], [place], [address], 05/23/2017 17:03:45 05/23/20 17 05/23/2017 phosp horus , blood carbon dioxide 27 Not Available [facility] [address], [place], [address], 05/23/2017 17:03:45 05/23/20 17 05/23/2017 phosp horus , blood calcium, serum 9.0 Not Available [facility] [address], [place], [address], 05/23/2017 17:03:45 05/23/20 17 05/23/2017 phosp horus , blood glucose, serum 101 Not Available [facility] [address], [address], [place], [address], 05/23/2017 17:03:45 05/23/20 17 05/23/2017 phosp horus , blood BUN 24 Not Available [facility] [address] [facility] [address], [place], [address], 05/23/2017 17:03:45 05/23/20 17 05/23/2017 phosp horus , blood creatinine 1.60 Not Available [facility] [address] [facility] [address], [address], [place], [address], 05/23/2017 17:03:45 05/23/20 17 05/23/2017 phosp horus , blood GFR 44 Not Available [facility] [address] [facility] [address], [address], [place], [address], 05/23/2017 17:03:45 05/23/20 17 05/23/2017 phosp horus , blood bilirubin, total 0.5 Not Available [facility] [address] [facility] [address], [address], [place], [address], 05/23/2017 17:03:45 05/23/20 17 05/23/2017 phosp horus , blood alkaline phosphatase 43 Not Available [facility] [address] [facility] [address], [address], [place], [address], 05/23/2017 17:03:45 05/23/20 17 05/23/2017 phosp horus , blood albumin, serum 4.1 Not Available [facility] [address] [facility] [address], [place], [address], 05/23/2017 17:03:45 05/23/20 17 05/23/2017 phosp horus , blood protein, total, serum 7.0 Not Available [facility] [address] [facility] [address], [address], [place], [address], 05/23/2017 17:03:45 05/23/20 17 05/23/2017 phosp horus , blood magnesium 1.8 Not Available [facility] [address] [facility] [address], [address], [place], [address], 05/23/2017 17:03:45 05/23/20 17 05/23/2017 phosp horus , blood phosphorus 2.8 Not Available [facility] [address] [facility] [address], [place], [address], 05/23/2017 17:03:45 05/23/20 17 05/23/2017 phosp horus , blood uric acid 6.1 Not Available [facility] [address] [facility] [address], [address], [place], [address], 05/23/2017 17:03:45 05/23/20 17 05/23/2017 phosp horus , blood PSA, total 0.762 Not Available [facility] [address] [facility] [address], [place], [address], 05/23/2017 17:03:45 05/23/20 17 05/23/2017 magne sium, blood color, urine straw Not Available [facility] [address] [facility] [address], [address], [place], [address], 05/23/2017 17:03:45 05/23/20 17 05/23/2017 magne sium, blood clarity, urine clear Not Available [facility] [address] [facility] [address], [address], [place], [address], 05/23/2017 17:03:45 05/23/20 17 05/23/2017 magne sium, blood pH, urine 1.006 Not Available [facility] [address] [facility] [address], [place], [address], 05/23/2017 17:03:45 05/23/20 17 05/23/2017 magne sium, blood protein, urine negati ve Not Available [facility] [address], [place], [address], 05/23/2017 17:03:45 05/23/20 17 05/23/2017 magne sium, blood glucose, urine negati ve Not Available [facility] [address], [address], [place], [address], 05/23/2017 17:03:45 05/23/20 17 05/23/2017 magne sium, blood ketones, urine negati ve Not Available [facility] [address], [place], [address], 05/23/2017 17:03:45 05/23/20 17 05/23/2017 magne sium, blood bilirubin, urine negati ve Not Available [facility] [address], [address], [place], [address], 05/23/2017 17:03:45 05/23/20 17 05/23/2017 magne sium, blood blood, urine negati ve Not Available [facility] [address], [place], [address], 05/23/2017 17:03:45 05/23/20 17 05/23/2017 magne sium, blood nitrite, urine negati ve Not Available [facility] [address], [address], [place], [address], 05/23/2017 17:03:45 05/23/20 17 05/23/2017 magne sium, blood leukocyte esterase negati ve Not Available [facility] [address], [place], [address], 05/23/2017 17:03:45 05/23/20 17 05/23/2017 magne sium, blood urobilinogen , urine <2.0 Not Available [facility] [address] [facility] [address], [address], [place], [address], 05/23/2017 17:03:45 05/23/20 17 05/23/2017 magne sium, blood protein, urine, random 9.8 Not Available [facility] [address] [facility] [address], [address], [place], [address], 05/23/2017 17:03:45 05/23/20 17 05/23/2017 magne sium, blood creatinine, urine, random 24.9 Not Available [facility] [address] [facility] [address], [address], [place], [address], 05/23/2017 17:03:45 05/23/20 17 05/23/2017 magne sium, blood HGB 14.7 Not Available [facility] [address], [place], [address], 05/23/2017 17:03:45 05/23/20 17 05/23/2017 magne sium, blood HCT 44.5 Not Available [facility] [address] [facility] [address], [address], [place], [address], 05/23/2017 17:03:45 05/23/20 17 05/23/2017 magne sium, blood WBC 4.5 Not Available [facility] [address], [place], [address], 05/23/2017 17:03:45 05/23/20 17 05/23/2017 magne sium, blood plt 212 Not Available [facility] [address], [address], [place], [address], 05/23/2017 17:03:45 05/23/20 17 05/23/2017 magne sium, blood sodium, serum 137 Not Available [facility] [address] [facility] [address], [address], [place], [address], 05/23/2017 17:03:45 05/23/20 17 05/23/2017 magne sium, blood potassium, serum 3.5 Not Available [facility] [address] [facility] [place] [address], [address], [place], [address], 05/23/2017 17:03:45 05/23/20 17 05/23/2017 magne sium, blood chloride, serum 99 Not Available [facility] [address] [facility] [place] [address], [address], [place], [address], 05/23/2017 17:03:45 05/23/20 17 05/23/2017 magne sium, blood carbon dioxide 27 Not Available [facility] [address] [facility] [place] [address], [address], [place], [address], 05/23/2017 17:03:45 05/23/20 17 05/23/2017 magne sium, blood calcium, serum 9.0 Not Available [facility] [address], [address], [place], [address], 05/23/2017 17:03:45 05/23/20 17 05/23/2017 magne sium, blood glucose, serum 101 Not Available [facility] [address] [facility] [place] [address], [address], [place], [address], 05/23/2017 17:03:45 05/23/20 17 05/23/2017 magne sium, blood BUN 24 Not Available [facility] [address] [facility] [place] [address], [address], [place], [address], 05/23/2017 17:03:45 05/23/20 17 05/23/2017 magne sium, blood creatinine 1.60 Not Available [facility] [address] [facility] [address], [place], [address], 05/23/2017 17:03:45 05/23/20 17 05/23/2017 magne sium, blood GFR 44 Not Available [facility] [address], [address], [place], [address], 05/23/2017 17:03:45 05/23/20 17 05/23/2017 magne sium, blood bilirubin, total 0.5 Not Available [facility] [address], [address], [place], [address], 05/23/2017 17:03:45 05/23/20 17 05/23/2017 magne sium, blood alkaline phosphatase 43 Not Available [facility] [address], [address], [place], [address], 05/23/2017 17:03:45 05/23/20 17 05/23/2017 magne sium, blood albumin, serum 4.1 Not Available [facility] [address], [address], [place], [address], 05/23/2017 17:03:45 05/23/20 17 05/23/2017 magne sium, blood protein, total, serum 7.0 Not Available [facility] [address], [place], [address], 05/23/2017 17:03:45 05/23/20 17 05/23/2017 magne sium, blood magnesium 1.8 Not Available [facility] [address], [place], [address], 05/23/2017 17:03:45 05/23/20 17 05/23/2017 magne sium, blood phosphorus 2.8 Not Available [facility] [address], [place], [address], 05/23/2017 17:03:45 05/23/20 17 05/23/2017 magne sium, blood uric acid 6.1 Not Available [facility] [address] [facility] [address], [address], [place], [address], 05/23/2017 17:03:45 05/23/20 17 05/23/2017 magne sium, blood PSA, total 0.762 Not Available [facility] [address] [facility] [address], [address], [place], [address], 05/23/2017 17:03:45 05/23/20 17 05/23/2017 CMP, serum or plasm a color, urine straw Not Available [facility] [address] [facility] [address], [address], [place], [address], 05/23/2017 17:03:45 05/23/20 17 05/23/2017 CMP, serum or plasm a clarity, urine clear Not Available [facility] [address] [facility] [address], [address], [place], [address], 05/23/2017 17:03:45 05/23/20 17 05/23/2017 CMP, serum or plasm a pH, urine 1.006 Not Available [facility] [address], [address], [place], [address], 05/23/2017 17:03:45 05/23/20 17 05/23/2017 CMP, serum or plasm a protein, urine negati ve Not Available [facility] [address] [place] [address], [address], [place], [address], 05/23/2017 17:03:45 05/23/20 17 05/23/2017 CMP, serum or plasm a glucose, urine negati ve Not Available [facility] [address], [place], [address], 05/23/2017 17:03:45 05/23/20 17 05/23/2017 CMP, serum or plasm a ketones, urine negati ve Not Available [facility] [address] [facility] [address], [address], [place], [address], 05/23/2017 17:03:45 05/23/20 17 05/23/2017 CMP, serum or plasm a bilirubin, urine negati ve Not Available [facility] [address], [address], [place], [address], 05/23/2017 17:03:45 05/23/20 17 05/23/2017 CMP, serum or plasm a blood, urine negati ve Not Available [facility] [address], [address], [place], [address], 05/23/2017 17:03:45 05/23/20 17 05/23/2017 CMP, serum or plasm a nitrite, urine negati ve Not Available [facility] [address], [place], [address], 05/23/2017 17:03:45 05/23/20 17 05/23/2017 CMP, serum or plasm a leukocyte esterase negati ve Not Available [facility] [address], [place], [address], 05/23/2017 17:03:45 05/23/20 17 05/23/2017 CMP, serum or plasm a urobilinogen , urine <2.0 Not Available [facility] [address], [place], [address], 05/23/2017 17:03:45 05/23/20 17 05/23/2017 CMP, serum or plasm a protein, urine, random 9.8 Not Available [facility] [address], [place], [address], 05/23/2017 17:03:45 05/23/20 17 05/23/2017 CMP, serum or plasm a creatinine, urine, random 24.9 Not Available [facility] [address] [facility] [address], [address], [place], [address], 05/23/2017 17:03:45 05/23/20 17 05/23/2017 CMP, serum or plasm a HGB 14.7 Not Available [facility] [address], [place], [address], 05/23/2017 17:03:45 05/23/20 17 05/23/2017 CMP, serum or plasm a HCT 44.5 Not Available [facility] [address], [place], [address], 05/23/2017 17:03:45 05/23/20 17 05/23/2017 CMP, serum or plasm a WBC 4.5 Not Available [facility] [address], [address], [place], [address], 05/23/2017 17:03:45 05/23/20 17 05/23/2017 CMP, serum or plasm a plt 212 Not Available [facility] [address], [place], [address], 05/23/2017 17:03:45 05/23/20 17 05/23/2017 CMP, serum or plasm a sodium, serum 137 Not Available [facility] [address], [place], [address], 05/23/2017 17:03:45 05/23/20 17 05/23/2017 CMP, serum or plasm a potassium, serum 3.5 Not Available [facility] [address], [place], [address], 05/23/2017 17:03:45 05/23/20 17 05/23/2017 CMP, serum or plasm a chloride, serum 99 Not Available [facility] [address] [facility] [address], [place], [address], 05/23/2017 17:03:45 05/23/20 17 05/23/2017 CMP, serum or plasm a carbon dioxide 27 Not Available [facility] [address], [address], [place], [address], 05/23/2017 17:03:45 05/23/20 17 05/23/2017 CMP, serum or plasm a calcium, serum 9.0 Not Available [facility] [address] [facility] [address], [place], [address], 05/23/2017 17:03:45 05/23/20 17 05/23/2017 CMP, serum or plasm a glucose, serum 101 Not Available [facility] [address], [place], [address], 05/23/2017 17:03:45 05/23/20 17 05/23/2017 CMP, serum or plasm a BUN 24 Not Available [facility] [address] [facility] [address], [place], [address], 05/23/2017 17:03:45 05/23/20 17 05/23/2017 CMP, serum or plasm a creatinine 1.60 Not Available [facility] [address] [facility] [address], [place], [address], 05/23/2017 17:03:45 05/23/20 17 05/23/2017 CMP, serum or plasm a GFR 44 Not Available [facility] [address], [place], [address], 05/23/2017 17:03:45 05/23/20 17 05/23/2017 CMP, serum or plasm a bilirubin, total 0.5 Not Available [address], [place], [address], 05/23/2017 17:03:45 05/23/20 17 05/23/2017 CMP, serum or plasm a alkaline phosphatase 43 Not Available [facility] [address] [place] [address] [address], [address], [place], [address], 05/23/2017 17:03:45 05/23/20 17 05/23/2017 CMP, serum or plasm a albumin, serum 4.1 Not Available [facility] [address] [facility] [address], [address], [place], [address], 05/23/2017 17:03:45 05/23/20 17 05/23/2017 CMP, serum or plasm a protein, total, serum 7.0 Not Available [address], [place], [address], 05/23/2017 17:03:45 05/23/20 17 05/23/2017 CMP, serum or plasm a magnesium 1.8 Not Available [address], [address], [place], [address], 05/23/2017 17:03:45 05/23/20 17 05/23/2017 CMP, serum or plasm a phosphorus 2.8 Not Available [address], [address], [place], [address], 05/23/2017 17:03:45 05/23/20 17 05/23/2017 CMP, serum or plasm a uric acid 6.1 Not Available [address], [place], [address], 05/23/2017 17:03:45 05/23/20 17 05/23/2017 CMP, serum or plasm a PSA, total 0.762 Not Available [facility] [address], [address], [place], [address], 05/23/2017 17:03:45 05/23/20 17 05/23/2017 CBC w/ auto diff color, urine straw Not Available [facility] [address] [facility] [address], [address], [place], [address], 05/23/2017 17:03:45 05/23/20 17 05/23/2017 CBC w/ auto diff clarity, urine clear Not Available [facility] [address], [address], [place], [address], 05/23/2017 17:03:45 05/23/20 17 05/23/2017 CBC w/ auto diff pH, urine 1.006 Not Available [facility] [address], [address], [place], [address], 05/23/2017 17:03:45 05/23/20 17 05/23/2017 CBC w/ auto diff protein, urine negati ve Not Available [facility] [address], [address], [place], [address], 05/23/2017 17:03:45 05/23/20 17 05/23/2017 CBC w/ auto diff glucose, urine negati ve Not Available [facility] [address], [address], [place], [address], 05/23/2017 17:03:45 05/23/20 17 05/23/2017 CBC w/ auto diff ketones, urine negati ve Not Available [facility] [address], [address], [place], [address], 05/23/2017 17:03:45 05/23/20 17 05/23/2017 CBC w/ auto diff bilirubin, urine negati ve Not Available [facility] [address] [facility] [address], [address], [place], [address], 05/23/2017 17:03:45 05/23/20 17 05/23/2017 CBC w/ auto diff blood, urine negati ve Not Available [facility] [address] [facility] [address], [address], [place], [address], 05/23/2017 17:03:45 05/23/20 17 05/23/2017 CBC w/ auto diff nitrite, urine negati ve Not Available [facility] [address], [address], [place], [address], 05/23/2017 17:03:45 05/23/20 17 05/23/2017 CBC w/ auto diff leukocyte esterase negati ve Not Available [facility] [address] [facility] [address], [address], [place], [address], 05/23/2017 17:03:45 05/23/20 17 05/23/2017 CBC w/ auto diff urobilinogen , urine <2.0 Not Available [facility] [address], [address], [place], [address], 05/23/2017 17:03:45 05/23/20 17 05/23/2017 CBC w/ auto diff protein, urine, random 9.8 Not Available [facility] [address], [address], [place], [address], 05/23/2017 17:03:45 05/23/20 17 05/23/2017 CBC w/ auto diff creatinine, urine, random 24.9 Not Available [facility] [address], [address], [place], [address], 05/23/2017 17:03:45 05/23/20 17 05/23/2017 CBC w/ auto diff HGB 14.7 Not Available [facility] [address] [facility] [address], [address], [place], [address], 05/23/2017 17:03:45 05/23/20 17 05/23/2017 CBC w/ auto diff HCT 44.5 Not Available [facility] [address] [facility] [address], [address], [place], [address], 05/23/2017 17:03:45 05/23/20 17 05/23/2017 CBC w/ auto diff WBC 4.5 Not Available [facility] [address] [facility] [address], [address], [place], [address], 05/23/2017 17:03:45 05/23/20 17 05/23/2017 CBC w/ auto diff plt 212 Not Available [facility] [address] [facility] [address], [address], [place], [address], 05/23/2017 17:03:45 05/23/20 17 05/23/2017 CBC w/ auto diff sodium, serum 137 Not Available [facility] [address] [facility] [address], [address], [place], [address], 05/23/2017 17:03:45 05/23/20 17 05/23/2017 CBC w/ auto diff potassium, serum 3.5 Not Available [facility] [address] [facility] [address], [address], [place], [address], 05/23/2017 17:03:45 05/23/20 17 05/23/2017 CBC w/ auto diff chloride, serum 99 Not Available [facility] [address] [facility] [address], [address], [place], [address], 05/23/2017 17:03:45 05/23/20 17 05/23/2017 CBC w/ auto diff carbon dioxide 27 Not Available [facility] [address] [facility] [address], [address], [place], [address], 05/23/2017 17:03:45 05/23/20 17 05/23/2017 CBC w/ auto diff calcium, serum 9.0 Not Available [facility] [address] [facility] [address], [address], [place], [address], 05/23/2017 17:03:45 05/23/20 17 05/23/2017 CBC w/ auto diff glucose, serum 101 Not Available [facility] [address] [address], [address], [place], [address], 05/23/2017 17:03:45 05/23/20 17 05/23/2017 CBC w/ auto diff BUN 24 Not Available [facility] [address] [facility] [address], [address], [place], [address], 05/23/2017 17:03:45 05/23/20 17 05/23/2017 CBC w/ auto diff creatinine 1.60 Not Available [facility] [address], [address], [place], [address], 05/23/2017 17:03:45 05/23/20 17 05/23/2017 CBC w/ auto diff GFR 44 Not Available [facility] [address] [facility] [address], [address], [place], [address], 05/23/2017 17:03:45 05/23/20 17 05/23/2017 CBC w/ auto diff bilirubin, total 0.5 Not Available [facility] [address] [facility] [address], [address], [place], [address], 05/23/2017 17:03:45 05/23/20 17 05/23/2017 CBC w/ auto diff alkaline phosphatase 43 Not Available [facility], [address], [place], [address], 05/23/2017 17:03:45 05/23/20 17 05/23/2017 CBC w/ auto diff albumin, serum 4.1 Not Available [address], [address], [place], [address], 05/23/2017 17:03:45 05/23/20 17 05/23/2017 CBC w/ auto diff protein, total, serum 7.0 Not Available [address], [address], [place], [address], 05/23/2017 17:03:45 05/23/20 17 05/23/2017 CBC w/ auto diff magnesium 1.8 Not Available [facility] [address] [facility] [address], [address], [place], [address], 05/23/2017 17:03:45 05/23/20 17 05/23/2017 CBC w/ auto diff phosphorus 2.8 Not Available [address], [address], [place], [address], 05/23/2017 17:03:45 05/23/20 17 05/23/2017 CBC w/ auto diff uric acid 6.1 Not Available [address], [address], [place], [address], 05/23/2017 17:03:45 05/23/20 17 05/23/2017 CBC w/ auto diff PSA, total 0.762 Not Available [address], [address], [place], [address], 05/23/2017 17:03:45 05/23/20 17 05/23/2017 prote in:cr eatin ine ratio , urine color, urine straw Not Available [facility] [address] [facility] [address], [address], [place], [address], 05/23/2017 17:03:44 05/23/20 17 05/23/2017 prote in:cr eatin ine ratio , urine clarity, urine clear Not Available [facility] [address] [facility] [address], [address], [place], [address], 05/23/2017 17:03:44 05/23/20 17 05/23/2017 prote in:cr eatin ine ratio , urine pH, urine 1.006 Not Available [facility] [address] [facility] [address], [address], [place], [address], 05/23/2017 17:03:44 05/23/20 17 05/23/2017 prote in:cr eatin ine ratio , urine protein, urine negati ve Not Available [facility] [address] [facility] [address], [address], [place], [address], 05/23/2017 17:03:44 05/23/20 17 05/23/2017 prote in:cr eatin ine ratio , urine glucose, urine negati ve Not Available [facility] [address] [facility] [address], [address], [place], [address], 05/23/2017 17:03:44 05/23/20 17 05/23/2017 prote in:cr eatin ine ratio , urine ketones, urine negati ve Not Available [facility] [address] [facility] [address], [address], [place], [address], 05/23/2017 17:03:44 05/23/20 17 05/23/2017 prote in:cr eatin ine ratio , urine bilirubin, urine negati ve Not Available [facility] [address] [facility] [address], [address], [place], [address], 05/23/2017 17:03:44 05/23/20 17 05/23/2017 prote in:cr eatin ine ratio , urine blood, urine negati ve Not Available [facility] [address] [facility] [address], [address], [place], [address], 05/23/2017 17:03:44 05/23/20 17 05/23/2017 prote in:cr eatin ine ratio , urine nitrite, urine negati ve Not Available [facility] [address], [address], [place], [address], 05/23/2017 17:03:44 05/23/20 17 05/23/2017 prote in:cr eatin ine ratio , urine leukocyte esterase negati ve Not Available [facility] [address] [facility] [address], [address], [place], [address], 05/23/2017 17:03:44 05/23/20 17 05/23/2017 prote in:cr eatin ine ratio , urine urobilinogen , urine <2.0 Not Available [facility] [address] [facility] [address], [address], [place], [address], 05/23/2017 17:03:44 05/23/20 17 05/23/2017 prote in:cr eatin ine ratio , urine protein, urine, random 9.8 Not Available [facility] [address], [address], [place], [address], 05/23/2017 17:03:44 05/23/20 17 05/23/2017 prote in:cr eatin ine ratio , urine creatinine, urine, random 24.9 Not Available [facility] [address], [address], [place], [address], 05/23/2017 17:03:44 05/23/20 17 05/23/2017 prote in:cr eatin ine ratio , urine HGB 14.7 Not Available [facility] [address], [address], [place], [address], 05/23/2017 17:03:44 05/23/20 17 05/23/2017 prote in:cr eatin ine ratio , urine HCT 44.5 Not Available [facility] [address], [address], [place], [address], 05/23/2017 17:03:44 05/23/20 17 05/23/2017 prote in:cr eatin ine ratio , urine WBC 4.5 Not Available [facility] [address] [facility] [address], [address], [place], [address], 05/23/2017 17:03:44 05/23/20 17 05/23/2017 prote in:cr eatin ine ratio , urine plt 212 Not Available [facility] [address] [facility] [address], [address], [place], [address], 05/23/2017 17:03:44 05/23/20 17 05/23/2017 prote in:cr eatin ine ratio , urine sodium, serum 137 Not Available [facility] [address] [facility] [address], [address], [place], [address], 05/23/2017 17:03:44 05/23/20 17 05/23/2017 prote in:cr eatin ine ratio , urine potassium, serum 3.5 Not Available [facility] [address] [facility] [address], [address], [place], [address], 05/23/2017 17:03:44 05/23/20 17 05/23/2017 prote in:cr eatin ine ratio , urine chloride, serum 99 Not Available [facility] [address] [facility] [address], [address], [place], [address], 05/23/2017 17:03:44 05/23/20 17 05/23/2017 prote in:cr eatin ine ratio , urine carbon dioxide 27 Not Available [facility] [address] [facility] [address], [address], [place], [address], 05/23/2017 17:03:44 05/23/20 17 05/23/2017 prote in:cr eatin ine ratio , urine calcium, serum 9.0 Not Available [facility] [address] [facility] [address], [address], [place], [address], 05/23/2017 17:03:44 05/23/20 17 05/23/2017 prote in:cr eatin ine ratio , urine glucose, serum 101 Not Available [facility] [address] [facility] [address], [address], [place], [address], 05/23/2017 17:03:44 05/23/20 17 05/23/2017 prote in:cr eatin ine ratio , urine BUN 24 Not Available [facility] [address] [facility] [address], [address], [place], [address], 05/23/2017 17:03:44 05/23/20 17 05/23/2017 prote in:cr eatin ine ratio , urine creatinine 1.60 Not Available [facility] [address] [facility] [address], [address], [place], [address], 05/23/2017 17:03:44 05/23/20 17 05/23/2017 prote in:cr eatin ine ratio , urine GFR 44 Not Available [facility] [address] [facility] [address], [address], [place], [address], 05/23/2017 17:03:44 05/23/20 17 05/23/2017 prote in:cr eatin ine ratio , urine bilirubin, total 0.5 Not Available [facility] [address] [facility] [address], [address], [place], [address], 05/23/2017 17:03:44 05/23/20 17 05/23/2017 prote in:cr eatin ine ratio , urine alkaline phosphatase 43 Not Available [facility] [address] [facility] [address], [address], [place], [address], 05/23/2017 17:03:44 05/23/20 17 05/23/2017 prote in:cr eatin ine ratio , urine albumin, serum 4.1 Not Available [facility] [address] [facility] [address], [address], [place], [address], 05/23/2017 17:03:44 05/23/20 17 05/23/2017 prote in:cr eatin ine ratio , urine protein, total, serum 7.0 Not Available [facility] [address] [facility] [address], [address], [place], [address], 05/23/2017 17:03:44 05/23/20 17 05/23/2017 prote in:cr eatin ine ratio , urine magnesium 1.8 Not Available [facility] [address] [facility] [address], [address], [place], [address], 05/23/2017 17:03:44 05/23/20 17 05/23/2017 prote in:cr eatin ine ratio , urine phosphorus 2.8 Not Available [facility] [address] [facility] [address], [address], [place], [address], 05/23/2017 17:03:44 05/23/20 17 05/23/2017 prote in:cr eatin ine ratio , urine uric acid 6.1 Not Available [facility] [address] [facility] [address], [address], [place], [address], 05/23/2017 17:03:44 05/23/20 17 05/23/2017 prote in:cr eatin ine ratio , urine PSA, total 0.762 Not Available [facility] [address] [facility] [address], [address], [place], [address], 05/23/2017 17:03:44 05/23/20 17 05/23/2017 urina lysis , dipst ick, refle x micro color, urine straw Not Available [facility] [address], [address], [place], [address], 05/23/2017 15:47:58 05/23/20 17 05/23/2017 urina lysis , dipst ick, refle x micro clarity, urine clear Not Available [facility] [address], [address], [place], [address], 05/23/2017 15:47:58 05/23/20 17 05/23/2017 urina lysis , dipst ick, refle x micro pH, urine 1.006 Not Available [facility] 61 [facility] [address], [address], [place], [address], 05/23/2017 15:47:58 05/23/20 17 05/23/2017 urina lysis , dipst ick, refle x micro protein, urine negati ve Not Available [address], [address], [place], [address], 05/23/2017 15:47:58 05/23/20 17 05/23/2017 urina lysis , dipst ick, refle x micro glucose, urine negati ve Not Available [facility] [address] [facility] [address], [address], [place], [address], 05/23/2017 15:47:58 05/23/20 17 05/23/2017 urina lysis , dipst ick, refle x micro ketones, urine negati ve Not Available [facility] [address] [place] [address] [address], [address], [place], [address], 05/23/2017 15:47:58 05/23/20 17 05/23/2017 urina lysis , dipst ick, refle x micro bilirubin, urine negati ve Not Available [facility] [address] [facility] [address], [address], [place], [address], 05/23/2017 15:47:58 05/23/20 17 05/23/2017 urina lysis , dipst ick, refle x micro blood, urine negati ve Not Available [facility] [address] [facility] [address], [address], [place], [address], 05/23/2017 15:47:58 05/23/20 17 05/23/2017 urina lysis , dipst ick, refle x micro nitrite, urine negati ve Not Available [facility] [address] [facility] [address], [address], [place], [address], 05/23/2017 15:47:58 05/23/20 17 05/23/2017 urina lysis , dipst ick, refle x micro leukocyte esterase negati ve Not Available [facility] [address] [facility] [address], [address], [place], [address], 05/23/2017 15:47:58 05/23/20 17 05/23/2017 urina lysis , dipst ick, refle x micro urobilinogen , urine <2.0 Not Available [address], [address], [place], [address], 05/23/2017 15:47:58 05/23/20 17 05/23/2017 urina lysis , dipst ick, refle x micro protein, urine, random 9.8 Not Available [address], [address], [place], [address], 05/23/2017 15:47:58 05/23/20 17 05/23/2017 urina lysis , dipst ick, refle x micro creatinine, urine, random 24.9 Not Available [facility] [address] [facility] [address], [address], [place], [address], 05/23/2017 15:47:58 05/23/20 17 05/23/2017 urina lysis , dipst ick, refle x micro HGB 14.7 Not Available [facility] [address] [facility] [address], [address], [place], [address], 05/23/2017 15:47:58 05/23/20 17 05/23/2017 urina lysis , dipst ick, refle x micro HCT 44.5 Not Available [facility] [address], [address], [place], [address], 05/23/2017 15:47:58 05/23/20 17 05/23/2017 urina lysis , dipst ick, refle x micro WBC 4.5 Not Available [facility] [address] [facility] [address], [address], [place], [address], 05/23/2017 15:47:58 05/23/20 17 05/23/2017 urina lysis , dipst ick, refle x micro plt 212 Not Available [facility] [address] [facility] [address], [address], [place], [address], 05/23/2017 15:47:58 05/23/20 17 05/23/2017 urina lysis , dipst ick, refle x micro sodium, serum 137 Not Available [facility] [address], [address], [place], [address], 05/23/2017 15:47:58 05/23/20 17 05/23/2017 urina lysis , dipst ick, refle x micro potassium, serum 3.5 Not Available [facility] [address], [address], [place], [address], 05/23/2017 15:47:58 05/23/20 17 05/23/2017 urina lysis , dipst ick, refle x micro chloride, serum 99 Not Available [facility] [address] [facility] [address], [address], [place], [address], 05/23/2017 15:47:58 05/23/20 17 05/23/2017 urina lysis , dipst ick, refle x micro carbon dioxide 27 Not Available [facility] [address] [facility] [address], [address], [place], [address], 05/23/2017 15:47:58 05/23/20 17 05/23/2017 urina lysis , dipst ick, refle x micro calcium, serum 9.0 Not Available [facility] [address], [address], [place], [address], 05/23/2017 15:47:58 05/23/20 17 05/23/2017 urina lysis , dipst ick, refle x micro glucose, serum 101 Not Available [facility] [address] [facility] [address], [address], [place], [address], 05/23/2017 15:47:58 05/23/20 17 05/23/2017 urina lysis , dipst ick, refle x micro BUN 24 Not Available [facility] [address] [facility] [address], [address], [place], [address], 05/23/2017 15:47:58 05/23/20 17 05/23/2017 urina lysis , dipst ick, refle x micro creatinine 1.60 Not Available [facility] [address], [address], [place], [address], 05/23/2017 15:47:58 05/23/20 17 05/23/2017 urina lysis , dipst ick, refle x micro GFR 44 Not Available [facility] [address] [facility] [address], [address], [place], [address], 05/23/2017 15:47:58 05/23/20 17 05/23/2017 urina lysis , dipst ick, refle x micro bilirubin, total 0.5 Not Available [facility] [address], [address], [place], [address], 05/23/2017 15:47:58 05/23/20 17 05/23/2017 urina lysis , dipst ick, refle x micro alkaline phosphatase 43 Not Available [facility] [address] [place], [place] [address]za [facility] [address], [address], [place], [address], 05/23/2017 15:47:58 05/23/20 17 05/23/2017 urina lysis , dipst ick, refle x micro albumin, serum 4.1 Not Available [address] [facility] [address], [address], [place], [address], 05/23/2017 15:47:58 05/23/20 17 05/23/2017 urina lysis , dipst ick, refle x micro protein, total, serum 7.0 Not Available [address] [facility] [address], [address], [place], [address], 05/23/2017 15:47:58 05/23/20 17 05/23/2017 urina lysis , dipst ick, refle x micro magnesium 1.8 Not Available [address] [facility] [address], [address], [place], [address], 05/23/2017 15:47:58 05/23/20 17 05/23/2017 urina lysis , dipst ick, refle x micro phosphorus 2.8 Not Available [address] [facility] [address], [address], [place], [address], 05/23/2017 15:47:58 05/23/20 17 05/23/2017 urina lysis , dipst ick, refle x micro uric acid 6.1 Not Available [address] [facility] [address], [address], [place], [address], 05/23/2017 15:47:58 05/23/20 17 05/23/2017 urina lysis , dipst ick, refle x micro PSA, total 0.762 Not Available [facility] [address] [facility] [address], [place], [address], 05/23/2017 15:47:58 11/16/19 18 11/15/2017 urina lysis , dipst ick, refle x micro color, urine light, yellow Not Available [facility] [address], [address], [place], [address], 11/18/2017 15:55:55 11/16/19 18 11/15/2017 urina lysis , dipst ick, refle x micro clarity, urine clear Not Available [facility] [address], [place], [address], 11/18/2017 15:55:55 11/16/19 18 11/15/2017 urina lysis , dipst ick, refle x micro pH, urine 6.0 Not Available [facility] [address], [place], [address], 11/18/2017 15:55:55 11/16/19 18 11/15/2017 urina lysis , dipst ick, refle x micro specific gravity, urine 1.010 Not Available [facility] [address], [address], [place], [address], 11/18/2017 15:55:55 11/16/19 18 11/15/2017 urina lysis , dipst ick, refle x micro protein, total, urine 30 Not Available [facility] [address], [address], [place], [address], 11/18/2017 15:55:55 11/16/19 18 11/15/2017 urina lysis , dipst ick, refle x micro glucose, urine negati ve Not Available [facility] [address], [place], [address], 11/18/2017 15:55:55 11/16/19 18 11/15/2017 urina lysis , dipst ick, refle x micro ketones, urine negati ve Not Available [facility] [address] [facility] [address], [address], [place], [address], 11/18/2017 15:55:55 11/16/19 18 11/15/2017 urina lysis , dipst ick, refle x micro bilirubin, urine negati ve Not Available [facility] [address] [facility] [address], [place], [address], 11/18/2017 15:55:55 11/16/19 18 11/15/2017 urina lysis , dipst ick, refle x micro blood, urine negati ve Not Available [facility] [address], [place], [address], 11/18/2017 15:55:55 11/16/19 18 11/15/2017 urina lysis , dipst ick, refle x micro nitrite, urine negati ve Not Available [facility] [address] [facility] [address], [place], [address], 11/18/2017 15:55:55 11/16/19 18 11/15/2017 urina lysis , dipst ick, refle x micro leukocyte esterase, urine negati ve Not Available [facility] [address] [facility] [address], [address], [place], [address], 11/18/2017 15:55:55 11/16/19 18 11/15/2017 urina lysis , dipst ick, refle x micro urobilinogen , urine <2.0 Not Available [facility] [address], [place], [address], 11/18/2017 15:55:55 11/16/19 18 11/15/2017 urina lysis , dipst ick, refle x micro WBC casts, urine <1 Not Available [address], [place], [address], 11/18/2017 15:55:55 11/16/19 18 11/15/2017 urina lysis , dipst ick, refle x micro red blood cells, urine 0 Not Available [facility] [address], [address], [place], [address], 11/18/2017 15:55:55 11/16/19 18 11/15/2017 urina lysis , dipst ick, refle x micro epithelial cells, urine <1 Not Available [address], [place], [address], 11/18/2017 15:55:55 11/16/19 18 11/15/2017 urina lysis , dipst ick, refle x micro protein, urine, random 10.1 Not Available [address], [place], [address], 11/18/2017 15:55:55 11/16/19 18 11/15/2017 urina lysis , dipst ick, refle x micro creatinine, urine, random 48.7 Not Available [address], [address], [place], [address], 11/18/2017 15:55:55 11/16/19 18 11/15/2017 urina lysis , dipst ick, refle x micro HGB 15.3 Not Available [address], [address], [place], [address], 11/18/2017 15:55:55 11/16/19 18 11/15/2017 urina lysis , dipst ick, refle x micro HCT 44.1 Not Available [address], [address], [place], [address], 11/18/2017 15:55:55 11/16/19 18 11/15/2017 urina lysis , dipst ick, refle x micro WBC 6.6 Not Available [facility] [address] [facility] [address], [address], [place], [address], 11/18/2017 15:55:55 11/16/19 18 11/15/2017 urina lysis , dipst ick, refle x micro plt 275 Not Available [facility] [address] [facility] [address], [address], [place], [address], 11/18/2017 15:55:55 11/16/19 18 11/15/2017 urina lysis , dipst ick, refle x micro sodium, serum 137 Not Available [facility] [address] [facility] [address], [address], [place], [address], 11/18/2017 15:55:55 11/16/19 18 11/15/2017 urina lysis , dipst ick, refle x micro potassium, seerum 4.0 Not Available [facility] [address] [facility] [address], [address], [place], [address], 11/18/2017 15:55:55 11/16/19 18 11/15/2017 urina lysis , dipst ick, refle x micro chloride, serum 96 Not Available [facility] [address] [facility] [address], [address], [place], [address], 11/18/2017 15:55:55 11/16/19 18 11/15/2017 urina lysis , dipst ick, refle x micro carbon dioxide 27 Not Available [facility] [address] [facility] [address], [address], [place], [address], 11/18/2017 15:55:55 11/16/19 18 11/15/2017 urina lysis , dipst ick, refle x micro calcium, serum 9.5 Not Available [facility] [address], [address], [place], [address], 11/18/2017 15:55:55 11/16/19 18 11/15/2017 urina lysis , dipst ick, refle x micro glucose, serum 92 Not Available [facility] [address], [address], [place], [address], 11/18/2017 15:55:55 11/16/19 18 11/15/2017 urina lysis , dipst ick, refle x micro BUN 27 Not Available [facility] [address], [address], [place], [address], 11/18/2017 15:55:55 11/16/19 18 11/15/2017 urina lysis , dipst ick, refle x micro creatinine 1.63 Not Available [facility] [address], [address], [place], [address], 11/18/2017 15:55:55 11/16/19 18 11/15/2017 urina lysis , dipst ick, refle x micro GFR 43 Not Available [facility] [address], [address], [place], [address], 11/18/2017 15:55:55 11/16/19 18 11/15/2017 urina lysis , dipst ick, refle x micro bilirubin, total 0.6 Not Available [facility] [address], [address], [place], [address], 11/18/2017 15:55:55 11/16/19 18 11/15/2017 urina lysis , dipst ick, refle x micro albumin, serum 4.5 Not Available [facility] [address] [place] [address], [address], [place], [address], 11/18/2017 15:55:55 11/16/19 18 11/15/2017 urina lysis , dipst ick, refle x micro protein, total, serum 7.5 Not Available [address], [address], [place], [address], 11/18/2017 15:55:55 11/16/19 18 11/15/2017 urina lysis , dipst ick, refle x micro magnesium 1.8 Not Available [address], [address], [place], [address], 11/18/2017 15:55:55 11/16/19 18 11/15/2017 urina lysis , dipst ick, refle x micro phosphorus 3.6 Not Available [address], [address], [place], [address], 11/18/2017 15:55:55 11/16/19 18 11/15/2017 urina lysis , dipst ick, refle x micro uric acid 5.6 Not Available [address], [address], [place], [address], 11/18/2017 15:55:55 11/16/19 18 11/15/2017 uric acid, serum or plasm a color, urine light, yellow Not Available [address], [address], [place], [address], 11/19/2017 19:46:51 11/16/19 18 11/15/2017 uric acid, serum or plasm a clarity, urine clear Not Available [address], [address], [place], [address], 11/19/2017 19:46:51 11/16/19 18 11/15/2017 uric acid, serum or plasm a pH, urine 6.0 Not Available [facility] [address] [facility] [address], [address], [place], [address], 11/19/2017 19:46:51 11/16/19 18 11/15/2017 uric acid, serum or plasm a specific gravity, urine 1.010 Not Available [address], [place], [address], 11/19/2017 19:46:51 11/16/19 18 11/15/2017 uric acid, serum or plasm a protein, total, urine 30 Not Available [facility] [address] [facility] [address], [place], [address], 11/19/2017 19:46:51 11/16/19 18 11/15/2017 uric acid, serum or plasm a glucose, urine negati ve Not Available [address], [place], [address], 11/19/2017 19:46:51 11/16/19 18 11/15/2017 uric acid, serum or plasm a ketones, urine negati ve Not Available [facility] [address] [facility] [address], [place], [address], 11/19/2017 19:46:51 11/16/19 18 11/15/2017 uric acid, serum or plasm a bilirubin, urine negati ve Not Available [address], [place], [address], 11/19/2017 19:46:51 11/16/19 18 11/15/2017 uric acid, serum or plasm a blood, urine negati ve Not Available [address], [place], [address], 11/19/2017 19:46:51 11/16/19 18 11/15/2017 uric acid, serum or plasm a nitrite, urine negati ve Not Available [facility] [address] [facility] [address], [place], [address], 11/19/2017 19:46:51 11/16/19 18 11/15/2017 uric acid, serum or plasm a leukocyte esterase, urine negati ve Not Available [facility] [address], [place], [address], 11/19/2017 19:46:51 11/16/19 18 11/15/2017 uric acid, serum or plasm a urobilinogen , urine <2.0 Not Available [facility] [address] [facility] [address], [place], [address], 11/19/2017 19:46:51 11/16/19 18 11/15/2017 uric acid, serum or plasm a WBC casts, urine <1 Not Available [facility] [address] [facility] [address], [place], [address], 11/19/2017 19:46:51 11/16/19 18 11/15/2017 uric acid, serum or plasm a red blood cells, urine 0 Not Available [facility] [address] [facility] [address], [address], [place], [address], 11/19/2017 19:46:51 11/16/19 18 11/15/2017 uric acid, serum or plasm a epithelial cells, urine <1 Not Available [facility] [address] [facility] [address], [place], [address], 11/19/2017 19:46:51 11/16/19 18 11/15/2017 uric acid, serum or plasm a protein, urine, random 10.1 Not Available [facility] [address] [facility] [address], [place], [address], 11/19/2017 19:46:51 11/16/19 18 11/15/2017 uric acid, serum or plasm a creatinine, urine, random 48.7 Not Available [facility] [address] [place] [address], [address], [place], [address], 11/19/2017 19:46:51 11/16/19 18 11/15/2017 uric acid, serum or plasm a HGB 15.3 Not Available [facility] [address] [facility] [address], [address], [place], [address], 11/19/2017 19:46:51 11/16/19 18 11/15/2017 uric acid, serum or plasm a HCT 44.1 Not Available [facility] [address] [facility] [address], [address], [place], [address], 11/19/2017 19:46:51 11/16/19 18 11/15/2017 uric acid, serum or plasm a WBC 6.6 Not Available [facility] [address] [facility] [address], [address], [place], [address], 11/19/2017 19:46:51 11/16/19 18 11/15/2017 uric acid, serum or plasm a plt 275 Not Available [facility] [address] [facility] [address], [address], [place], [address], 11/19/2017 19:46:51 11/16/19 18 11/15/2017 uric acid, serum or plasm a sodium, serum 137 Not Available [facility] [address] [facility] [address], [address], [place], [address], 11/19/2017 19:46:51 11/16/19 18 11/15/2017 uric acid, serum or plasm a potassium, seerum 4.0 Not Available [facility] [address] [facility] [address], [address], [place], [address], 11/19/2017 19:46:51 11/16/19 18 11/15/2017 uric acid, serum or plasm a chloride, serum 96 Not Available [facility] [address] [facility] [address], [address], [place], [address], 11/19/2017 19:46:51 11/16/19 18 11/15/2017 uric acid, serum or plasm a carbon dioxide 27 Not Available [facility] [address] [facility] [address], [address], [place], [address], 11/19/2017 19:46:51 11/16/19 18 11/15/2017 uric acid, serum or plasm a calcium, serum 9.5 Not Available [facility] [address] [facility] [address], [address], [place], [address], 11/19/2017 19:46:51 11/16/19 18 11/15/2017 uric acid, serum or plasm a glucose, serum 92 Not Available [facility] [address] [facility] [address], [address], [place], [address], 11/19/2017 19:46:51 11/16/19 18 11/15/2017 uric acid, serum or plasm a BUN 27 Not Available [facility] [address] [facility] [address], [address], [place], [address], 11/19/2017 19:46:51 11/16/19 18 11/15/2017 uric acid, serum or plasm a creatinine 1.63 Not Available [facility] [address] [facility] [address], [address], [place], [address], 11/19/2017 19:46:51 11/16/19 18 11/15/2017 uric acid, serum or plasm a GFR 43 Not Available [facility] [address] [facility] [address], [address], [place], [address], 11/19/2017 19:46:51 11/16/19 18 11/15/2017 uric acid, serum or plasm a bilirubin, total 0.6 Not Available [facility] [address] [facility] [address], [address], [place], [address], 11/19/2017 19:46:51 11/16/19 18 11/15/2017 uric acid, serum or plasm a albumin, serum 4.5 Not Available [address], [address], [place], [address], 11/19/2017 19:46:51 11/16/19 18 11/15/2017 uric acid, serum or plasm a protein, total, serum 7.5 Not Available [facility] [address] [facility] [address], [address], [place], [address], 11/19/2017 19:46:51 11/16/19 18 11/15/2017 uric acid, serum or plasm a magnesium 1.8 Not Available [address], [address], [place], [address], 11/19/2017 19:46:51 11/16/19 18 11/15/2017 uric acid, serum or plasm a phosphorus 3.6 Not Available [facility] [address] [facility] [address], [address], [place], [address], 11/19/2017 19:46:51 11/16/19 18 11/15/2017 uric acid, serum or plasm a uric acid 5.6 Not Available [address] [facility] [address], [address], [place], [address], 11/19/2017 19:46:51 11/16/19 18 11/15/2017 phosp horus , blood color, urine light, yellow Not Available [facility] [address] [facility] [address], [place], [address], 11/19/2017 19:46:50 11/16/19 18 11/15/2017 phosp horus , blood clarity, urine clear Not Available [facility] [address] [facility] [address], [address], [place], [address], 11/19/2017 19:46:50 11/16/19 18 11/15/2017 phosp horus , blood pH, urine 6.0 Not Available [facility] [address] [facility] [address], [address], [place], [address], 11/19/2017 19:46:50 11/16/19 18 11/15/2017 phosp horus , blood specific gravity, urine 1.010 Not Available [facility] [address] [facility] [address], [address], [place], [address], 11/19/2017 19:46:50 11/16/19 18 11/15/2017 phosp horus , blood protein, total, urine 30 Not Available [facility] [address] [facility] [address], [address], [place], [address], 11/19/2017 19:46:50 11/16/19 18 11/15/2017 phosp horus , blood glucose, urine negati ve Not Available [facility] [address] [facility] [address], [address], [place], [address], 11/19/2017 19:46:50 11/16/19 18 11/15/2017 phosp horus , blood ketones, urine negati ve Not Available [facility] [address] [facility] [address], [address], [place], [address], 11/19/2017 19:46:50 11/16/19 18 11/15/2017 phosp horus , blood bilirubin, urine negati ve Not Available [facility] [address] [facility] [address], [address], [place], [address], 11/19/2017 19:46:50 11/16/19 18 11/15/2017 phosp horus , blood blood, urine negati ve Not Available [facility] [address] [facility] [address], [address], [place], [address], 11/19/2017 19:46:50 11/16/19 18 11/15/2017 phosp horus , blood nitrite, urine negati ve Not Available [facility] [address] [facility] [address], [place], [address], 11/19/2017 19:46:50 11/16/19 18 11/15/2017 phosp horus , blood leukocyte esterase, urine negati ve Not Available [facility] [address] [facility] [address], [address], [place], [address], 11/19/2017 19:46:50 11/16/19 18 11/15/2017 phosp horus , blood urobilinogen , urine <2.0 Not Available [facility] [address] [facility] [address], [place], [address], 11/19/2017 19:46:50 11/16/19 18 11/15/2017 phosp horus , blood WBC casts, urine <1 Not Available [facility] [address] [facility] [address], [address], [place], [address], 11/19/2017 19:46:50 11/16/19 18 11/15/2017 phosp horus , blood red blood cells, urine 0 Not Available [facility] [address] [facility] [address], [address], [place], [address], 11/19/2017 19:46:50 11/16/19 18 11/15/2017 phosp horus , blood epithelial cells, urine <1 Not Available [facility] [address] [facility] [address], [address], [place], [address], 11/19/2017 19:46:50 11/16/19 18 11/15/2017 phosp horus , blood protein, urine, random 10.1 Not Available [facility] [address] [facility] [address], [address], [place], [address], 11/19/2017 19:46:50 11/16/19 18 11/15/2017 phosp horus , blood creatinine, urine, random 48.7 Not Available [facility] [address] [place] [address], [address], [place], [address], 11/19/2017 19:46:50 11/16/19 18 11/15/2017 phosp horus , blood HGB 15.3 Not Available [facility] [address] [place] [address], [address], [place], [address], 11/19/2017 19:46:50 11/16/19 18 11/15/2017 phosp horus , blood HCT 44.1 Not Available [facility] [address] [place] [address], [address], [place], [address], 11/19/2017 19:46:50 11/16/19 18 11/15/2017 phosp horus , blood WBC 6.6 Not Available [facility] [address] [place] [address], [address], [place], [address], 11/19/2017 19:46:50 11/16/19 18 11/15/2017 phosp horus , blood plt 275 Not Available [facility] [address], [address], [place], [address], 11/19/2017 19:46:50 11/16/19 18 11/15/2017 phosp horus , blood sodium, serum 137 Not Available [facility] [address], [address], [place], [address], 11/19/2017 19:46:50 11/16/19 18 11/15/2017 phosp horus , blood potassium, seerum 4.0 Not Available [facility] [address], [address], [place], [address], 11/19/2017 19:46:50 11/16/19 18 11/15/2017 phosp horus , blood chloride, serum 96 Not Available [facility] [address], [address], [place], [address], 11/19/2017 19:46:50 11/16/19 18 11/15/2017 phosp horus , blood carbon dioxide 27 Not Available [facility] [address], [address], [place], [address], 11/19/2017 19:46:50 11/16/19 18 11/15/2017 phosp horus , blood calcium, serum 9.5 Not Available [facility] [address], [address], [place], [address], 11/19/2017 19:46:50 11/16/19 18 11/15/2017 phosp horus , blood glucose, serum 92 Not Available [facility] [address], [place], [address], 11/19/2017 19:46:50 11/16/19 18 11/15/2017 phosp horus , blood BUN 27 Not Available [facility] [address], [address], [place], [address], 11/19/2017 19:46:50 11/16/19 18 11/15/2017 phosp horus , blood creatinine 1.63 Not Available [facility] [address], [place], [address], 11/19/2017 19:46:50 11/16/19 18 11/15/2017 phosp horus , blood GFR 43 Not Available [facility] [address], [place], [address], 11/19/2017 19:46:50 11/16/19 18 11/15/2017 phosp horus , blood bilirubin, total 0.6 Not Available [facility] [address] [facility] [address], [address], [place], [address], 11/19/2017 19:46:50 11/16/19 18 11/15/2017 phosp horus , blood albumin, serum 4.5 Not Available [facility] [address] [facility] [address], [address], [place], [address], 11/19/2017 19:46:50 11/16/19 18 11/15/2017 phosp horus , blood protein, total, serum 7.5 Not Available [facility] [address] [facility] [address], [address], [place], [address], 11/19/2017 19:46:50 11/16/19 18 11/15/2017 phosp horus , blood magnesium 1.8 Not Available [facility] [address] [facility] [address], [address], [place], [address], 11/19/2017 19:46:50 11/16/19 18 11/15/2017 phosp horus , blood phosphorus 3.6 Not Available [facility] [address] [facility] [address], [address], [place], [address], 11/19/2017 19:46:50 11/16/19 18 11/15/2017 phosp horus , blood uric acid 5.6 Not Available [facility] [address] [facility] [address], [address], [place], [address], 11/19/2017 19:46:50 11/16/19 18 11/15/2017 magne sium, blood color, urine light, yellow Not Available [facility] [address] [facility] [address], [place], [address], 11/19/2017 19:46:50 11/16/19 18 11/15/2017 magne sium, blood clarity, urine clear Not Available [facility] [address] [facility] [address], [place], [address], 11/19/2017 19:46:50 11/16/19 18 11/15/2017 magne sium, blood pH, urine 6.0 Not Available [facility] [address] [facility] [address], [place], [address], 11/19/2017 19:46:50 11/16/19 18 11/15/2017 magne sium, blood specific gravity, urine 1.010 Not Available [facility] [address], [place], [address], 11/19/2017 19:46:50 11/16/19 18 11/15/2017 magne sium, blood protein, total, urine 30 Not Available [facility] [address] [facility] [address], [address], [place], [address], 11/19/2017 19:46:50 11/16/19 18 11/15/2017 magne sium, blood glucose, urine negati ve Not Available [facility] [address] [facility] [address], [place], [address], 11/19/2017 19:46:50 11/16/19 18 11/15/2017 magne sium, blood ketones, urine negati ve Not Available [facility] [address] [facility] [address], [place], [address], 11/19/2017 19:46:50 11/16/19 18 11/15/2017 magne sium, blood bilirubin, urine negati ve Not Available [facility] [address] [facility] [address], [place], [address], 11/19/2017 19:46:50 11/16/19 18 11/15/2017 magne sium, blood blood, urine negati ve Not Available [facility] [address] [facility] [address], [place], [address], 11/19/2017 19:46:50 11/16/19 18 11/15/2017 magne sium, blood nitrite, urine negati ve Not Available [facility] [address] [facility] [address], [place], [address], 11/19/2017 19:46:50 11/16/19 18 11/15/2017 magne sium, blood leukocyte esterase, urine negati ve Not Available [facility] [address], [place], [address], 11/19/2017 19:46:50 11/16/19 18 11/15/2017 magne sium, blood urobilinogen , urine <2.0 Not Available [facility] [address], [place], [address], 11/19/2017 19:46:50 11/16/19 18 11/15/2017 magne sium, blood WBC casts, urine <1 Not Available [facility] [address], [place], [address], 11/19/2017 19:46:50 11/16/19 18 11/15/2017 magne sium, blood red blood cells, urine 0 Not Available [facility] [address] [facility] [address], [place], [address], 11/19/2017 19:46:50 11/16/19 18 11/15/2017 magne sium, blood epithelial cells, urine <1 Not Available [facility] [address], [place], [address], 11/19/2017 19:46:50 11/16/19 18 11/15/2017 magne sium, blood protein, urine, random 10.1 Not Available [facility] [address] [facility] [address], [address], [place], [address], 11/19/2017 19:46:50 11/16/19 18 11/15/2017 magne sium, blood creatinine, urine, random 48.7 Not Available [facility] [address] [facility] [address], [address], [place], [address], 11/19/2017 19:46:50 11/16/19 18 11/15/2017 magne sium, blood HGB 15.3 Not Available [facility] [address] [facility] [address], [address], [place], [address], 11/19/2017 19:46:50 11/16/19 18 11/15/2017 magne sium, blood HCT 44.1 Not Available [facility] [address] [facility] [address], [address], [place], [address], 11/19/2017 19:46:50 11/16/19 18 11/15/2017 magne sium, blood WBC 6.6 Not Available [facility] [address] [facility] [address], [address], [place], [address], 11/19/2017 19:46:50 11/16/19 18 11/15/2017 magne sium, blood plt 275 Not Available [facility] [address] [facility] [address], [address], [place], [address], 11/19/2017 19:46:50 11/16/19 18 11/15/2017 magne sium, blood sodium, serum 137 Not Available [facility] [address] [facility] [address], [address], [place], [address], 11/19/2017 19:46:50 11/16/19 18 11/15/2017 magne sium, blood potassium, seerum 4.0 Not Available [facility] [address] [facility] [address], [address], [place], [address], 11/19/2017 19:46:50 11/16/19 18 11/15/2017 magne sium, blood chloride, serum 96 Not Available [facility] [address] [facility] [address], [address], [place], [address], 11/19/2017 19:46:50 11/16/19 18 11/15/2017 magne sium, blood carbon dioxide 27 Not Available [facility] [address], [address], [place], [address], 11/19/2017 19:46:50 11/16/19 18 11/15/2017 magne sium, blood calcium, serum 9.5 Not Available [facility] [address] [facility] [address], [address], [place], [address], 11/19/2017 19:46:50 11/16/19 18 11/15/2017 magne sium, blood glucose, serum 92 Not Available [facility] [address] [facility] [address], [address], [place], [address], 11/19/2017 19:46:50 11/16/19 18 11/15/2017 magne sium, blood BUN 27 Not Available [facility] [address], [address], [place], [address], 11/19/2017 19:46:50 11/16/19 18 11/15/2017 magne sium, blood creatinine 1.63 Not Available [facility] [address] [facility] [address], [address], [place], [address], 11/19/2017 19:46:50 11/16/19 18 11/15/2017 magne sium, blood GFR 43 Not Available [facility] [address] [address], [place], [address], 11/19/2017 19:46:50 11/16/19 18 11/15/2017 magne sium, blood bilirubin, total 0.6 Not Available [facility] [address], [place], [address], 11/19/2017 19:46:50 11/16/19 18 11/15/2017 magne sium, blood albumin, serum 4.5 Not Available [facility] [address], [place], [address], 11/19/2017 19:46:50 11/16/19 18 11/15/2017 magne sium, blood protein, total, serum 7.5 Not Available [facility] [address] [facility] [address], [place], [address], 11/19/2017 19:46:50 11/16/19 18 11/15/2017 magne sium, blood magnesium 1.8 Not Available [facility] [address] [facility] [address], [address], [place], [address], 11/19/2017 19:46:50 11/16/19 18 11/15/2017 magne sium, blood phosphorus 3.6 Not Available [facility] [address] [facility] [address], [place], [address], 11/19/2017 19:46:50 11/16/19 18 11/15/2017 magne sium, blood uric acid 5.6 Not Available [facility] [address] [facility] [address], [place], [address], 11/19/2017 19:46:50 11/16/19 18 11/15/2017 CMP, serum or plasm a color, urine light, yellow Not Available [address], [place], [address], 11/19/2017 19:46:50 11/16/19 18 11/15/2017 CMP, serum or plasm a clarity, urine clear Not Available [address], [address], [place], [address], 11/19/2017 19:46:50 11/16/19 18 11/15/2017 CMP, serum or plasm a pH, urine 6.0 Not Available [address], [address], [place], [address], 11/19/2017 19:46:50 11/16/19 18 11/15/2017 CMP, serum or plasm a specific gravity, urine 1.010 Not Available [address], [address], [place], [address], 11/19/2017 19:46:50 11/16/19 18 11/15/2017 CMP, serum or plasm a protein, total, urine 30 Not Available [address], [address], [place], [address], 11/19/2017 19:46:50 11/16/19 18 11/15/2017 CMP, serum or plasm a glucose, urine negati ve Not Available [address], [address], [place], [address], 11/19/2017 19:46:50 11/16/19 18 11/15/2017 CMP, serum or plasm a ketones, urine negati ve Not Available [address], [address], [place], [address], 11/19/2017 19:46:50 11/16/19 18 11/15/2017 CMP, serum or plasm a bilirubin, urine negati ve Not Available [address], [address], [place], [address], 11/19/2017 19:46:50 11/16/19 18 11/15/2017 CMP, serum or plasm a blood, urine negati ve Not Available [address], [address], [place], [address], 11/19/2017 19:46:50 11/16/19 18 11/15/2017 CMP, serum or plasm a nitrite, urine negati ve Not Available [facility] [address] [place], [place] [address]y [address], [address], [place], [address], 11/19/2017 19:46:50 11/16/19 18 11/15/2017 CMP, serum or plasm a leukocyte esterase, urine negati ve Not Available [address], [address], [place], [address], 11/19/2017 19:46:50 11/16/19 18 11/15/2017 CMP, serum or plasm a urobilinogen , urine <2.0 Not Available [address], [address], [place], [address], 11/19/2017 19:46:50 11/16/19 18 11/15/2017 CMP, serum or plasm a WBC casts, urine <1 Not Available [address], [address], [place], [address], 11/19/2017 19:46:50 11/16/19 18 11/15/2017 CMP, serum or plasm a red blood cells, urine 0 Not Available [facility] [address] [place], [place] [address]y [address], [address], [place], [address], 11/19/2017 19:46:50 11/16/19 18 11/15/2017 CMP, serum or plasm a epithelial cells, urine <1 Not Available [facility] [address] [facility] [address], [address], [place], [address], 11/19/2017 19:46:50 11/16/19 18 11/15/2017 CMP, serum or plasm a protein, urine, random 10.1 Not Available [address], [place], [address], 11/19/2017 19:46:50 11/16/19 18 11/15/2017 CMP, serum or plasm a creatinine, urine, random 48.7 Not Available [facility] [address] [facility] [address], [address], [place], [address], 11/19/2017 19:46:50 11/16/19 18 11/15/2017 CMP, serum or plasm a HGB 15.3 Not Available [address], [place], [address], 11/19/2017 19:46:50 11/16/19 18 11/15/2017 CMP, serum or plasm a HCT 44.1 Not Available [address], [address], [place], [address], 11/19/2017 19:46:50 11/16/19 18 11/15/2017 CMP, serum or plasm a WBC 6.6 Not Available [address], [place], [address], 11/19/2017 19:46:50 11/16/19 18 11/15/2017 CMP, serum or plasm a plt 275 Not Available [facility] [address], [address], [place], [address], 11/19/2017 19:46:50 11/16/19 18 11/15/2017 CMP, serum or plasm a sodium, serum 137 Not Available [facility] [address] [facility] [address], [address], [place], [address], 11/19/2017 19:46:50 11/16/19 18 11/15/2017 CMP, serum or plasm a potassium, seerum 4.0 Not Available [facility] [address] [facility] [address], [address], [place], [address], 11/19/2017 19:46:50 11/16/19 18 11/15/2017 CMP, serum or plasm a chloride, serum 96 Not Available [facility] [address] [facility] [address], [address], [place], [address], 11/19/2017 19:46:50 11/16/19 18 11/15/2017 CMP, serum or plasm a carbon dioxide 27 Not Available [facility] [address] [facility] [address], [address], [place], [address], 11/19/2017 19:46:50 11/16/19 18 11/15/2017 CMP, serum or plasm a calcium, serum 9.5 Not Available [facility] [address], [address], [place], [address], 11/19/2017 19:46:50 11/16/19 18 11/15/2017 CMP, serum or plasm a glucose, serum 92 Not Available [facility] [address], [address], [place], [address], 11/19/2017 19:46:50 11/16/19 18 11/15/2017 CMP, serum or plasm a BUN 27 Not Available [facility] [address], [address], [place], [address], 11/19/2017 19:46:50 11/16/19 18 11/15/2017 CMP, serum or plasm a creatinine 1.63 Not Available [facility] [address] [facility] [address], [address], [place], [address], 11/19/2017 19:46:50 11/16/19 18 11/15/2017 CMP, serum or plasm a GFR 43 Not Available [facility] [address] [facility] [address], [address], [place], [address], 11/19/2017 19:46:50 11/16/19 18 11/15/2017 CMP, serum or plasm a bilirubin, total 0.6 Not Available [facility] [address] [facility] [address], [address], [place], [address], 11/19/2017 19:46:50 11/16/19 18 11/15/2017 CMP, serum or plasm a albumin, serum 4.5 Not Available [facility] [address] [facility] [address], [address], [place], [address], 11/19/2017 19:46:50 11/16/19 18 11/15/2017 CMP, serum or plasm a protein, total, serum 7.5 Not Available [facility] [address] [facility] [address], [address], [place], [address], 11/19/2017 19:46:50 11/16/19 18 11/15/2017 CMP, serum or plasm a magnesium 1.8 Not Available [facility] [address] [facility] [address], [address], [place], [address], 11/19/2017 19:46:50 11/16/19 18 11/15/2017 CMP, serum or plasm a phosphorus 3.6 Not Available [facility] [address], [address], [place], [address], 11/19/2017 19:46:50 11/16/19 18 11/15/2017 CMP, serum or plasm a uric acid 5.6 Not Available [facility] [address] [facility] [address], [address], [place], [address], 11/19/2017 19:46:50 11/16/19 18 11/15/2017 CBC w/ auto diff color, urine light, yellow Not Available [facility] [address] [facility] [address], [address], [place], [address], 11/19/2017 19:46:50 11/16/19 18 11/15/2017 CBC w/ auto diff clarity, urine clear Not Available [facility] [address] [facility] [address], [address], [place], [address], 11/19/2017 19:46:50 11/16/19 18 11/15/2017 CBC w/ auto diff pH, urine 6.0 Not Available [facility] [address] [facility] [address], [address], [place], [address], 11/19/2017 19:46:50 11/16/19 18 11/15/2017 CBC w/ auto diff specific gravity, urine 1.010 Not Available [facility] [address] [facility] [address], [address], [place], [address], 11/19/2017 19:46:50 11/16/19 18 11/15/2017 CBC w/ auto diff protein, total, urine 30 Not Available [facility] [address] [facility] [address], [address], [place], [address], 11/19/2017 19:46:50 11/16/19 18 11/15/2017 CBC w/ auto diff glucose, urine negati ve Not Available [facility] [address] [facility] [address], [address], [place], [address], 11/19/2017 19:46:50 11/16/19 18 11/15/2017 CBC w/ auto diff ketones, urine negati ve Not Available [facility] [address] [facility] [address], [address], [place], [address], 11/19/2017 19:46:50 11/16/19 18 11/15/2017 CBC w/ auto diff bilirubin, urine negati ve Not Available [facility] [address] [facility] [address], [address], [place], [address], 11/19/2017 19:46:50 11/16/19 18 11/15/2017 CBC w/ auto diff blood, urine negati ve Not Available [facility] [address], [place], [address], 11/19/2017 19:46:50 11/16/19 18 11/15/2017 CBC w/ auto diff nitrite, urine negati ve Not Available [facility] [address] [facility] [address], [address], [place], [address], 11/19/2017 19:46:50 11/16/19 18 11/15/2017 CBC w/ auto diff leukocyte esterase, urine negati ve Not Available [facility] [address] [facility] [address], [address], [place], [address], 11/19/2017 19:46:50 11/16/19 18 11/15/2017 CBC w/ auto diff urobilinogen , urine <2.0 Not Available [facility] [address] [facility] [address], [place], [address], 11/19/2017 19:46:50 11/16/19 18 11/15/2017 CBC w/ auto diff WBC casts, urine <1 Not Available [facility] [address] [facility] [address], [place], [address], 11/19/2017 19:46:50 11/16/19 18 11/15/2017 CBC w/ auto diff red blood cells, urine 0 Not Available [facility] [address] [facility] [address], [address], [place], [address], 11/19/2017 19:46:50 11/16/19 18 11/15/2017 CBC w/ auto diff epithelial cells, urine <1 Not Available [facility] [address] [facility] [address], [address], [place], [address], 11/19/2017 19:46:50 11/16/19 18 11/15/2017 CBC w/ auto diff protein, urine, random 10.1 Not Available [facility] [address] [facility] [address], [address], [place], [address], 11/19/2017 19:46:50 11/16/19 18 11/15/2017 CBC w/ auto diff creatinine, urine, random 48.7 Not Available [facility] [address] [facility] [address], [address], [place], [address], 11/19/2017 19:46:50 11/16/19 18 11/15/2017 CBC w/ auto diff HGB 15.3 Not Available [facility] [address] [facility] [address], [address], [place], [address], 11/19/2017 19:46:50 11/16/19 18 11/15/2017 CBC w/ auto diff HCT 44.1 Not Available [facility] [address] [facility] [address], [address], [place], [address], 11/19/2017 19:46:50 11/16/19 18 11/15/2017 CBC w/ auto diff WBC 6.6 Not Available [facility] [address] [facility] [address], [address], [place], [address], 11/19/2017 19:46:50 11/16/19 18 11/15/2017 CBC w/ auto diff plt 275 Not Available [facility] [address] [facility] [address], [address], [place], [address], 11/19/2017 19:46:50 11/16/19 18 11/15/2017 CBC w/ auto diff sodium, serum 137 Not Available [facility] [address], [address], [place], [address], 11/19/2017 19:46:50 11/16/19 18 11/15/2017 CBC w/ auto diff potassium, seerum 4.0 Not Available [facility] [address], [address], [place], [address], 11/19/2017 19:46:50 11/16/19 18 11/15/2017 CBC w/ auto diff chloride, serum 96 Not Available [facility] [address], [address], [place], [address], 11/19/2017 19:46:50 11/16/19 18 11/15/2017 CBC w/ auto diff carbon dioxide 27 Not Available [facility] [address], [address], [place], [address], 11/19/2017 19:46:50 11/16/19 18 11/15/2017 CBC w/ auto diff calcium, serum 9.5 Not Available [facility] [address], [address], [place], [address], 11/19/2017 19:46:50 11/16/19 18 11/15/2017 CBC w/ auto diff glucose, serum 92 Not Available [facility] [address], [address], [place], [address], 11/19/2017 19:46:50 11/16/19 18 11/15/2017 CBC w/ auto diff BUN 27 Not Available [facility] [address], [address], [place], [address], 11/19/2017 19:46:50 11/16/19 18 11/15/2017 CBC w/ auto diff creatinine 1.63 Not Available [facility] [address], [place], [address], 11/19/2017 19:46:50 11/16/19 18 11/15/2017 CBC w/ auto diff GFR 43 Not Available [facility] [address] [facility] [address], [address], [place], [address], 11/19/2017 19:46:50 11/16/19 18 11/15/2017 CBC w/ auto diff bilirubin, total 0.6 Not Available [facility] [address] [facility] [address], [address], [place], [address], 11/19/2017 19:46:50 11/16/19 18 11/15/2017 CBC w/ auto diff albumin, serum 4.5 Not Available [address], [address], [place], [address], 11/19/2017 19:46:50 11/16/19 18 11/15/2017 CBC w/ auto diff protein, total, serum 7.5 Not Available [facility] [address] [facility] [address], [address], [place], [address], 11/19/2017 19:46:50 11/16/19 18 11/15/2017 CBC w/ auto diff magnesium 1.8 Not Available [facility] [address] [facility] [address], [address], [place], [address], 11/19/2017 19:46:50 11/16/19 18 11/15/2017 CBC w/ auto diff phosphorus 3.6 Not Available [facility] [address], [address], [place], [address], 11/19/2017 19:46:50 11/16/19 18 11/15/2017 CBC w/ auto diff uric acid 5.6 Not Available [facility] [address], [address], [place], [address], 11/19/2017 19:46:50 11/16/19 18 11/15/2017 prote in:cr eatin ine ratio , urine color, urine light, yellow Not Available [facility] [address] [facility] [address], [address], [place], [address], 11/19/2017 19:46:50 11/16/19 18 11/15/2017 prote in:cr eatin ine ratio , urine clarity, urine clear Not Available [facility] [address] [facility] [address], [place], [address], 11/19/2017 19:46:50 11/16/19 18 11/15/2017 prote in:cr eatin ine ratio , urine pH, urine 6.0 Not Available [facility] [address] [facility] [address], [place], [address], 11/19/2017 19:46:50 11/16/19 18 11/15/2017 prote in:cr eatin ine ratio , urine specific gravity, urine 1.010 Not Available [facility] [address] [facility] [address], [place], [address], 11/19/2017 19:46:50 11/16/19 18 11/15/2017 prote in:cr eatin ine ratio , urine protein, total, urine 30 Not Available [facility] [address] [facility] [address], [place], [address], 11/19/2017 19:46:50 11/16/19 18 11/15/2017 prote in:cr eatin ine ratio , urine glucose, urine negati ve Not Available [facility] [address] [facility] [address], [place], [address], 11/19/2017 19:46:50 11/16/19 18 11/15/2017 prote in:cr eatin ine ratio , urine ketones, urine negati ve Not Available [facility] [address] [facility] [address], [place], [address], 11/19/2017 19:46:50 11/16/19 18 11/15/2017 prote in:cr eatin ine ratio , urine bilirubin, urine negati ve Not Available [facility] [address] [facility] [address], [place], [address], 11/19/2017 19:46:50 11/16/19 18 11/15/2017 prote in:cr eatin ine ratio , urine blood, urine negati ve Not Available [facility] [address] [facility] [address], [place], [address], 11/19/2017 19:46:50 11/16/19 18 11/15/2017 prote in:cr eatin ine ratio , urine nitrite, urine negati ve Not Available [facility] [address] [facility] [address], [place], [address], 11/19/2017 19:46:50 11/16/19 18 11/15/2017 prote in:cr eatin ine ratio , urine leukocyte esterase, urine negati ve Not Available [facility] [address] [facility] [address], [place], [address], 11/19/2017 19:46:50 11/16/19 18 11/15/2017 prote in:cr eatin ine ratio , urine urobilinogen , urine <2.0 Not Available [facility] [address] [facility] [address], [place], [address], 11/19/2017 19:46:50 11/16/19 18 11/15/2017 prote in:cr eatin ine ratio , urine WBC casts, urine <1 Not Available [facility] [address] [facility] [address], [place], [address], 11/19/2017 19:46:50 11/16/19 18 11/15/2017 prote in:cr eatin ine ratio , urine red blood cells, urine 0 Not Available [facility] [address], [place], [address], 11/19/2017 19:46:50 11/16/19 18 11/15/2017 prote in:cr eatin ine ratio , urine epithelial cells, urine <1 Not Available [facility] [address] [facility] [address], [address], [place], [address], 11/19/2017 19:46:50 11/16/19 18 11/15/2017 prote in:cr eatin ine ratio , urine protein, urine, random 10.1 Not Available [facility] [address] [facility] [address], [address], [place], [address], 11/19/2017 19:46:50 11/16/19 18 11/15/2017 prote in:cr eatin ine ratio , urine creatinine, urine, random 48.7 Not Available [facility] [address] [facility] [address], [place], [address], 11/19/2017 19:46:50 11/16/19 18 11/15/2017 prote in:cr eatin ine ratio , urine HGB 15.3 Not Available [facility] [address] [facility] [address], [place], [address], 11/19/2017 19:46:50 11/16/19 18 11/15/2017 prote in:cr eatin ine ratio , urine HCT 44.1 Not Available [facility] [address], [address], [place], [address], 11/19/2017 19:46:50 11/16/19 18 11/15/2017 prote in:cr eatin ine ratio , urine WBC 6.6 Not Available [facility] [address] [facility] [address], [address], [place], [address], 11/19/2017 19:46:50 11/16/19 18 11/15/2017 prote in:cr eatin ine ratio , urine plt 275 Not Available [facility] [address] [facility] [address], [address], [place], [address], 11/19/2017 19:46:50 11/16/19 18 11/15/2017 prote in:cr eatin ine ratio , urine sodium, serum 137 Not Available [facility] [address] [facility] [address], [address], [place], [address], 11/19/2017 19:46:50 11/16/19 18 11/15/2017 prote in:cr eatin ine ratio , urine potassium, seerum 4.0 Not Available [facility] [address] [place] [address] [address], [address], [place], [address], 11/19/2017 19:46:50 11/16/19 18 11/15/2017 prote in:cr eatin ine ratio , urine chloride, serum 96 Not Available [facility] [address], [address], [place], [address], 11/19/2017 19:46:50 11/16/19 18 11/15/2017 prote in:cr eatin ine ratio , urine carbon dioxide 27 Not Available [facility] [address] [place] [address] [address], [address], [place], [address], 11/19/2017 19:46:50 11/16/19 18 11/15/2017 prote in:cr eatin ine ratio , urine calcium, serum 9.5 Not Available [facility] [address] [place] [address] [address], [address], [place], [address], 11/19/2017 19:46:50 11/16/19 18 11/15/2017 prote in:cr eatin ine ratio , urine glucose, serum 92 Not Available [facility] [address] [place] [address] [address], [address], [place], [address], 11/19/2017 19:46:50 11/16/19 18 11/15/2017 prote in:cr eatin ine ratio , urine BUN 27 Not Available [facility] [address] [place] [address] [address], [address], [place], [address], 11/19/2017 19:46:50 11/16/19 18 11/15/2017 prote in:cr eatin ine ratio , urine creatinine 1.63 Not Available [facility] [address] [facility] [address], [address], [place], [address], 11/19/2017 19:46:50 11/16/19 18 11/15/2017 prote in:cr eatin ine ratio , urine GFR 43 Not Available [address], [address], [place], [address], 11/19/2017 19:46:50 11/16/19 18 11/15/2017 prote in:cr eatin ine ratio , urine bilirubin, total 0.6 Not Available [facility] [address] [facility] [address], [address], [place], [address], 11/19/2017 19:46:50 11/16/19 18 11/15/2017 prote in:cr eatin ine ratio , urine albumin, serum 4.5 Not Available [facility] [address] [place] [address] [address], [address], [place], [address], 11/19/2017 19:46:50 11/16/19 18 11/15/2017 prote in:cr eatin ine ratio , urine protein, total, serum 7.5 Not Available [facility] [address] [facility] [address], [address], [place], [address], 11/19/2017 19:46:50 11/16/19 18 11/15/2017 prote in:cr eatin ine ratio , urine magnesium 1.8 Not Available [facility] [address] [facility] [address], [place], [address], 11/19/2017 19:46:50 11/16/19 18 11/15/2017 prote in:cr eatin ine ratio , urine phosphorus 3.6 Not Available [facility] [address] [facility], [place], [address], 11/19/2017 19:46:50 11/16/19 18 11/15/2017 prote in:cr eatin ine ratio , urine uric acid 5.6 Not Available [facility] [address] [facility], [place], [address], 11/19/2017 19:46:50 05/07/20 18 05/07/2018 lipid panel [...] , urine glucose 96 normal Not Available [facility] [address] [facility] [address], [address], [place], [address], 09/17/2018 17:00:34 08/29/20 18 08/29/2018 prote in:cr eatin ine ratio , urine BUN 25 high Not Available [facility] [address] [facility] [address], [address], [place], [address], 09/17/2018 17:00:34 08/29/20 18 08/29/2018 prote in:cr eatin ine ratio , urine creatinine 1.51 high Not Available [facility] [address] [facility] [address], [address], [place], [address], 09/17/2018 17:00:34 08/29/20 18 08/29/2018 prote in:cr eatin ine ratio , urine sodium, serum 139 normal Not Available [facility] [address] [facility] [address], [address], [place], [address], 09/17/2018 17:00:34 08/29/20 18 08/29/2018 prote in:cr eatin ine ratio , urine potassium, serum 3.9 normal Not Available [facility] [address] [facility] [address], [address], [place], [address], 09/17/2018 17:00:34 08/29/20 18 08/29/2018 prote in:cr eatin ine ratio , urine chloride, serum 102 normal Not Available [facility] [address] [facility] [address], [address], [place], [address], 09/17/2018 17:00:34 08/29/20 18 08/29/2018 prote in:cr eatin ine ratio , urine carbon dioxide 28 normal Not Available [facility] [address] [facility] [address], [address], [place], [address], 09/17/2018 17:00:34 08/29/20 18 08/29/2018 prote in:cr eatin ine ratio , urine album, serum 4.3 normal Not Available [facility] [address] [place] [address] [address], [address], [place], [address], 09/17/2018 17:00:34 08/29/20 18 08/29/2018 prote in:cr eatin ine ratio , urine calcium, serum 9.2 normal Not Available [facility] [address] [place], [place] [address], [address], [place], [address], 09/17/2018 17:00:34 08/29/20 18 08/29/2018 prote in:cr eatin ine ratio , urine alkaline phosphatase 44 normal Not Available [facility] [address], [address], [place], [address], 09/17/2018 17:00:34 08/29/20 18 08/29/2018 prote in:cr eatin ine ratio , urine bilirubin, total 0.4 normal Not Available [facility] [address] [place], [place] [address], [address], [place], [address], 09/17/2018 17:00:34 08/29/20 18 08/29/2018 prote in:cr eatin ine ratio , urine protein, total, serum 70 normal Not Available [facility] [address] [place], [place] [address]c[address]ez [address], [address], [place], [address], 09/17/2018 17:00:34 08/29/20 18 08/29/2018 prote in:cr eatin ine ratio , urine eGFR 47 low Not Available [facility] [address] [place], [place] [address]cortez [address], [address], [place], [address], 09/17/2018 17:00:34 08/29/20 18 08/29/2018 prote in:cr eatin ine ratio , urine creatinine, urine 23.0 normal Not Available [facility] [address] [place], [place] [address], [address], [place], [address], 09/17/2018 17:00:34 08/29/20 18 08/29/2018 prote in:cr eatin ine ratio , urine protein, total, urine, random 9.8 normal Not Available [facility] [address] [facility] [address], [address], [place], [address], 09/17/2018 17:00:34 08/29/20 18 08/29/2018 urina lysis compl ete, refle x cultu re WBC count 6.3 normal Not Available [facility] [address] [facility] [address], [address], [place], [address], 09/17/2018 16:56:21 08/29/20 18 08/29/2018 urina lysis compl ete, refle x cultu re HGB 15 normal Not Available [facility] [address] [facility] [address], [address], [place], [address], 09/17/2018 16:56:21 08/29/20 18 08/29/2018 urina lysis compl ete, refle x cultu re HCT 44.2 normal Not Available [facility] [address] [facility] [address], [address], [place], [address], 09/17/2018 16:56:21 08/29/20 18 08/29/2018 urina lysis compl ete, refle x cultu re platelet count 254 normal Not Available [facility] [address], [address], [place], [address], 09/17/2018 16:56:21 08/29/20 18 08/29/2018 CMP, serum or plasm a glucose 96 normal Not Available [facility] [address] [facility] [address], [address], [place], [address], 08/29/2018 18:28:02 08/29/20 18 08/29/2018 CMP, serum or plasm a BUN 25 high Not Available [facility] [address] [facility] [address], [address], [place], [address], 08/29/2018 18:28:02 08/29/20 18 08/29/2018 CMP, serum or plasm a creatinine 1.51 high Not Available [facility] [address], [address], [place], [address], 08/29/2018 18:28:02 08/29/20 18 08/29/2018 CMP, serum or plasm a sodium, serum 139 normal Not Available [facility] [address], [address], [place], [address], 08/29/2018 18:28:02 08/29/20 18 08/29/2018 CMP, serum or plasm a potassium, serum 3.9 normal Not Available [facility] [address], [address], [place], [address], 08/29/2018 18:28:02 08/29/20 18 08/29/2018 CMP, serum or plasm a chloride, serum 102 normal Not Available [facility] [address], [address], [place], [address], 08/29/2018 18:28:02 08/29/20 18 08/29/2018 CMP, serum or plasm a carbon dioxide 28 normal Not Available [facility] [address], [address], [place], [address], 08/29/2018 18:28:02 08/29/20 18 08/29/2018 CMP, serum or plasm a album, serum 4.3 normal Not Available [facility] [address], [address], [place], [address], 08/29/2018 18:28:02 08/29/20 18 08/29/2018 CMP, serum or plasm a calcium, serum 9.2 normal Not Available [facility] [address], [address], [place], [address], 08/29/2018 18:28:02 08/29/20 18 08/29/2018 CMP, serum or plasm a alkaline phosphatase 44 normal Not Available [facility] [address] [place] [address], [address], [place], [address], 08/29/2018 18:28:02 08/29/20 18 08/29/2018 CMP, serum or plasm a bilirubin, total 0.4 normal Not Available [facility] [address] [facility] [address], [address], [place], [address], 08/29/2018 18:28:02 08/29/20 18 08/29/2018 CMP, serum or plasm a protein, total, serum 70 normal Not Available [address], [address], [place], [address], 08/29/2018 18:28:02 08/29/20 18 08/29/2018 CMP, serum or plasm a eGFR 47 low Not Available [facility] [address], [address], [place], [address], 08/29/2018 18:28:02 08/29/20 18 08/29/2018 CMP, serum or plasm a creatinine, urine 23.0 normal Not Available [facility] [address], [address], [place], [address], 08/29/2018 18:28:02 08/29/20 18 08/29/2018 CMP, serum or plasm a protein, total, urine, random 9.8 normal Not Available [facility] [place] [address], [address], [place], [address], 08/29/2018 18:28:02 08/29/20 18 08/29/2018 CBC w/ auto diff WBC count 6.3 normal Not Available [facility] [address] [facility] [address], [place], [address], 08/29/2018 15:25:44 08/29/20 18 08/29/2018 CBC w/ auto diff HGB 15 normal Not Available [facility] [address] [facility] [address], [address], [place], [address], 08/29/2018 15:25:44 08/29/20 18 08/29/2018 CBC w/ auto diff HCT 44.2 normal Not Available [facility] [address] [facility] [address], [address], [place], [address], 08/29/2018 15:25:44 08/29/20 18 08/29/2018 CBC w/ auto diff platelet count 254 normal Not Available [facility] [address] [facility] [address], [address], [place], [address], 08/29/2018 15:25:44 02/11/20 19 02/10/2019 lipid panel [...] , serum glucose 96 normal Not Available [facility] [address] [facility] [address], [address], [place], [address], 03/04/2019 18:56:10 03/03/20 19 03/03/2019 renal funct ion panel , serum BUN 26 high Not Available [facility] [address] [facility] [address], [address], [place], [address], 03/04/2019 18:56:10 03/03/20 19 03/03/2019 renal funct ion panel , serum creatinine 1.61 normal Not Available [facility] [address] [facility] [address], [address], [place], [address], 03/04/2019 18:56:10 03/03/20 19 03/03/2019 renal funct ion panel , serum sodium, serum 139 normal Not Available [facility] [address] [facility] [address], [address], [place], [address], 03/04/2019 18:56:10 03/03/20 19 03/03/2019 renal funct ion panel , serum potassium, serum 3.8 normal Not Available [facility] [address] [facility] [address], [address], [place], [address], 03/04/2019 18:56:10 03/03/20 19 03/03/2019 renal funct ion panel , serum chloride, serum 104 normal Not Available [facility] [address], [address], [place], [address], 03/04/2019 18:56:10 03/03/20 19 03/03/2019 renal funct ion panel , serum carbon dioxide 24 normal Not Available [facility] [address], [address], [place], [address], 03/04/2019 18:56:10 03/03/20 19 03/03/2019 renal funct ion panel , serum calcium, serum 9.1 normal normal Not Available [facility] [address], [address], [place], [address], 03/04/2019 18:56:10 03/03/20 19 03/03/2019 renal funct ion panel , serum eGFR 44 low Not Available [facility] [address], [address], [place], [address], 03/04/2019 18:56:10 03/04/20 19 03/04/2019 prote in:cr eatin ine ratio , urine glucose 96 normal Not Available [facility] [address], [address], [place], [address], 03/04/2019 08:17:55 03/04/20 19 03/04/2019 prote in:cr eatin ine ratio , urine BUN 26 high Not Available [facility] [address], [address], [place], [address], 03/04/2019 08:17:55 03/04/20 19 03/04/2019 prote in:cr eatin ine ratio , urine creatinine 1.61 normal Not Available [facility] [address], [address], [place], [address], 03/04/2019 08:17:55 03/04/20 19 03/04/2019 prote in:cr eatin ine ratio , urine sodium, serum 139 normal Not Available [facility] [address] [facility] [address], [address], [place], [address], 03/04/2019 08:17:55 03/04/20 19 03/04/2019 prote in:cr eatin ine ratio , urine potassium, serum 3.8 normal Not Available [facility] [address] [facility] [address], [address], [place], [address], 03/04/2019 08:17:55 03/04/20 19 03/04/2019 prote in:cr eatin ine ratio , urine chloride, serum 104 normal Not Available [facility] [address] [facility] [address], [address], [place], [address], 03/04/2019 08:17:55 03/04/20 19 03/04/2019 prote in:cr eatin ine ratio , urine carbon dioxide 24 normal Not Available [facility] [address] [facility] [address], [address], [place], [address], 03/04/2019 08:17:55 03/04/20 19 03/04/2019 prote in:cr eatin ine ratio , urine calcium, serum 9.1 normal normal Not Available [facility] [address] [facility] [address], [address], [place], [address], 03/04/2019 08:17:55 03/04/20 19 03/04/2019 prote in:cr eatin ine ratio , urine eGFR 44 low Not Available [facility] [address] [facility] [address], [address], [place], [address], 03/04/2019 08:17:55 01/20/20 20 01/20/2020 CMP, serum [...] plasm a HGB 14.5 normal Not Available [employer] [facility] [address] [facility] [address], [place], [address], 11/15/2020 13:57:47 10/24/19 21 10/24/2020 CMP, serum or plasm a HCT 43.1 normal Not Available [employer] [facility] [address], [address], [place], [address], 11/15/2020 13:57:47 10/24/19 21 10/24/2020 CMP, serum or plasm a platelet count 242 normal Not Available [facility] [address], [address], [place], [address], 11/15/2020 13:57:47 10/24/19 21 10/24/2020 CMP, serum or plasm a WBC count 4.9 normal Not Available [facility] [address], [address], [place], [address], 11/15/2020 13:57:47 10/24/19 21 10/24/2020 CMP, serum or plasm a glucose 103 normal Not Available [facility] [address] [facility] [address], [address], [place], [address], 11/15/2020 13:57:47 10/24/19 21 10/24/2020 CMP, serum or plasm a BUN 24 high Not Available [facility] [address], [address], [place], [address], 11/15/2020 13:57:47 10/24/19 21 10/24/2020 CMP, serum or plasm a creatinine 1.36 high Not Available [facility] [address], [address], [place], [address], 11/15/2020 13:57:47 10/24/19 21 10/24/2020 CMP, serum or plasm a sodium, serum 136 normal Not Available [facility] [address], [address], [place], [address], 11/15/2020 13:57:47 10/24/19 21 10/24/2020 CMP, serum or plasm a potassium, serum 4.2 normal Not Available [facility] [address], [address], [place], [address], 11/15/2020 13:57:47 10/24/19 21 10/24/2020 CMP, serum or plasm a chloride, serum 102 normal Not Available [facility] [address] [facility] [address], [address], [place], [address], 11/15/2020 13:57:47 10/24/19 21 10/24/2020 CMP, serum or plasm a carbon dixoide 27 normal Not Available [facility] [address] [facility] [address], [address], [place], [address], 11/15/2020 13:57:47 10/24/19 21 10/24/2020 CMP, serum or plasm a album, serum 4.3 normal Not Available [facility] [address] [facility] [address], [address], [place], [address], 11/15/2020 13:57:47 10/24/19 21 10/24/2020 CMP, serum or plasm a calcium, serum 9.5 normal Not Available [facility] [address] [facility] [address], [address], [place], [address], 11/15/2020 13:57:47 10/24/19 21 10/24/2020 CMP, serum or plasm a eGFR 53 low Not Available [facility] [address] [facility] [address], [address], [place], [address], 11/15/2020 13:57:47 10/24/19 21 10/24/2020 CMP, serum or plasm a protein, total, serum 6.7 normal Not Available [facility] [address] [facility] [address], [address], [place], [address], 11/15/2020 13:57:47 10/24/19 21 10/24/2020 CBC w/ auto diff HGB 14.5 normal Not Available [facility] [address] [facility] [address], [address], [place], [address], 11/02/2020 12:21:14 10/24/19 21 10/24/2020 CBC w/ auto diff HCT 43.1 normal Not Available [facility] [address] [facility] [address], [address], [place], [address], 11/02/2020 12:21:14 10/24/19 21 10/24/2020 CBC w/ auto diff platelet count 242 normal Not Available [facility] [address] [facility] [address], [address], [place], [address], 11/02/2020 12:21:14 10/24/19 21 10/24/2020 CBC w/ auto diff WBC count 4.9 normal Not Available [facility] [address] [facility] [address], [address], [place], [address], 11/02/2020 12:21:14 10/24/19 21 10/24/2020 CBC w/ auto diff glucose 103 normal Not Available [facility] [address] [facility] [address], [address], [place], [address], 11/02/2020 12:21:14 10/24/19 21 10/24/2020 CBC w/ auto diff BUN 24 high Not Available [facility] [address] [facility] [address], [address], [place], [address], 11/02/2020 12:21:14 10/24/19 21 10/24/2020 CBC w/ auto diff creatinine 1.36 high Not Available [facility] [address] [facility] [address], [address], [place], [address], 11/02/2020 12:21:14 10/24/19 21 10/24/2020 CBC w/ auto diff sodium, serum 136 normal Not Available [facility] [address] [facility] [address], [place], [address], 11/02/2020 12:21:14 10/24/19 21 10/24/2020 CBC w/ auto diff potassium, serum 4.2 normal Not Available [facility] [address], [address], [place], [address], 11/02/2020 12:21:14 10/24/19 21 10/24/2020 CBC w/ auto diff chloride, serum 102 normal Not Available [facility] [address] [facility] [address], [place], [address], 11/02/2020 12:21:14 10/24/19 21 10/24/2020 CBC w/ auto diff carbon dixoide 27 normal Not Available [facility] [address] [facility] [address], [address], [place], [address], 11/02/2020 12:21:14 10/24/19 21 10/24/2020 CBC w/ auto diff album, serum 4.3 normal Not Available [facility] [address] [facility] [address], [place], [address], 11/02/2020 12:21:14 10/24/19 21 10/24/2020 CBC w/ auto diff calcium, serum 9.5 normal Not Available [facility] [address], [place], [address], 11/02/2020 12:21:14 10/24/19 21 10/24/2020 CBC w/ auto diff eGFR 53 low Not Available [facility] [address], [place], [address], 11/02/2020 12:21:14 10/24/19 21 10/24/2020 CBC w/ auto diff protein, total, serum 6.7 normal Not Available [facility] [address], [place], [address], 11/02/2020 12:21:14 05/24/20 17 05/24/2017 , janae Bergeron observ ation record ed. [email or web address] Not Available 2016 16:31:59 Result Notes None recorded. Problems Name Problem SNOMED Code Status Onset Date Resolution Date Notes Provider Name and Address Organization Details Recorded Time Chronic kidney disease stage 3 612146813 Active 2013 Not Available [facility] 5 13:00:54 Benign hypertensive renal disease 661160 Active 2013 Not Available [facility] 5 13:00:54 Hyperlipidemi a 17179181 Active 2013 Not Available [facility] 5 13:00:54 Essential hypertension 53115981 Active 2016 [facility] 7 17:03:46 Total nephrectomy Active 2016 Roz Will [facility] Kidney Disease, [facility] 7 17:03:47 Problem Notes None recorded. Procedures Surgical History Date Name Laterality Status Provider Name and Address Organization Details Recorded Time 6 Other completed [facility], [facility] 08/13/2016 14:20:40 6 Shoulder joint surgery completed [facility] Kidney Disease, [facility] 08/13/2016 14:21:35 2 Nephrectomy completed [facility] Kidney Disease, [facility] 08/13/2016 14:20:55 Imaging Results None recorded. Procedure [...] Updated DateTime 9 167.64 cm 22 kg/m2 45368.5 6 g 60 /min 97 % 97 % 122/90 mm[Hg] An Ramachandran lynne [facility] Kidney Disease, [facility] 9 12:17:09 Date Recorded Body height Body mass index (BMI) Body weight Heart rate Systolic And Diastolic Provider Name and Address Organization Details Last Updated DateTime 11/18/2017 167.64 cm 21.6 kg/m2 24764.38 g 55 /min 130/82 mm[Hg] [facility] 11/18/2017 15:34:33 Date Recorded Body height Provider Name an d Address Organization Details Last Updated DateTime 02/04/2020 167.64 cm An Ramachandrano [facility] Kidney Disease, [facility] 02/04/2020 13:00:12 Date Recorded Body height Body mass index (BMI) Body weight Heart rate Oxygen saturation Oxygen saturation in Arterial blood by Pulse oximetry Systolic And Diastolic Provider Name and Address Organization Details Last Updated DateTime 9 167.64 cm 21.5 kg/m2 64269.7 9 g 95 /min 98 % 98 % 124/60 mm[Hg] Leatha Buckley [facility] Kidney Disease, [facility] 9 12:50:35 Date Recorded Body height Body mass index (BMI) Body weight Heart rate Systolic And Diastolic Provider Name and Address Organization Details Last Updated DateTime 05/29/2017 167.64 cm 21 kg/m2 82807.01 g 66 /min 120/80 mm[Hg] Peggy Ant [facility] Kidney Disease, [facility] 05/29/2017 16:13:15 Social History Question Answer Notes LastModified by Organizat ion Details LastModified Time Tobacco Smoking Status Never Smoker Halie marcelo [facility] Kidney Disease, [facility] 08/13/2016 14:19:58 Do You Have An Advance [...] SNOMED-CT Code Diagnosis ICD10 Code Diagnosis Note [id number] [facility] [address] [place] [address] 03/26/2014 00:00:00 [id number] [facility] [address] [place] [address] 05/24/2014 00:00:00 [id number] MD [facility] [address] [place] [address] 08/13/2016 13:38:15 08/13/2016 14:40:33 Chronic kidney disease stage 3 199160085 N18.3 G3a/A1, without proteinuri a in associatio n with solitary R kidney/CAU and HTN.Cr stable. Essential hypertension 12647341 I10 controlled .recommend ACEI/ARB. Total nephrectomy 137059 003 Z90.5 s/p L nephrectom y for CAU at age 7. [id number] MD [facility] [address] [place] [address] 02/18/2017 16:27:32 02/18/2017 17:20:33 Chronic kidney disease stage 3 653017195 N18.3 G3a/A1, without proteinuri a in associatio n with solitary R kidney/CAU and HTN. Essential hypertension 28830037 I10 controlled .recommend ACEI/ARB. Total nephrectomy 069950 003 Z90.5 s/p L nephrectom y for CAU at age 7. [id number] MD [facility] [address] [place] [address] 05/29/2017 15:45:50 05/29/2017 16:39:59 Chronic kidney disease stage 3 874484986 N18.3 G3a/A1, without proteinuri a in associatio n with solitary R kidney/CAU and HTN. Essential hypertension 43536120 I10 controlled .recommend ACEI/ARB. Total nephrectomy 657267 003 Z90.5 s/p L nephrectom y for CAU at age 7. [id number] MD [facility] [address] [place] [address] 11/18/2017 15:20:10 11/18/2017 15:59:01 Chronic kidney disease stage 3 903049793 N18.3 G3a/A1.wit hout proteinuri a in associatio n with solitary R kidney/CAU and HTN. Essential hypertension 32419560 I10 controlled .stop Amlodipine .change to losartan 50mg qhs. Total nephrectomy 765688 003 Z90.5 s/p L nephrectom y for CAU at age 7. [id number] MD [facility] [address] [place] [address] 09/04/2018 11:50:46 09/04/2018 12:38:35 Chronic kidney disease stage 3 552590245 N18.3 G3a/A1.wit hout proteinuri a in associatio n with solitary R kidney/CAU and HTN.GFR stable Essential hypertension 67817663 I10 controlled .on Norvasc 2.5 mg .Stopped Losartan on his own 6 months ago .Daily BP checks Total nephrectomy 945325 003 Z90.5 s/p L nephrectom y for CAU at age 7. [id number] MD Farhan Michaels d Office [address] [place] [facility] [place] [address] 03/12/2019 12:41:48 03/12/2019 13:20:29 Chronic kidney disease stage 3 054727465 N18.3 G3a/A1.wit hout proteinuri a in associatio n with solitary R kidney/CAU and HTN.GFR stable is 44 today. Discussed with patient control his factors including avoiding NSAIDs and good control of hypertensi on. Hydration. Essential hypertension 73399459 I10 controlled .on Norvasc 2.5 mg .Stopped Losartan on his own 6 months ago .Daily BP checks Total nephrectomy 766311 003 Z90.5 s/p L nephrectom y for CAU at age 7. [id number] MD [facility]han [facility]aels d Office [address] [facility] [place] [address] 02/04/2020 12:58:53 02/04/2020 14:35:10 Chronic kidney disease stage 3 622576671 N18.3 G3a/A1.wit hout proteinuri a in associatio n with solitary R kidney/CAU and HTN.GFR stable is 44 today. Discussed with patient control his factors including avoiding NSAIDs and good control of hypertensi on. Hydration. Discussed with her that he may have enlarged prostate. He will follow-up with urology. Essential hypertension 32440748 I10 controlled .on Norvasc 2.5 mg .Stopped Losartan on his own 6 months ago .Daily BP checks Total nephrectomy 302725 003 Z90.5 s/p L nephrectom y for [...] Ballesteros 02/06/2021 1 [place] Jerry Ballesteros [id number] Jerry Ballesteros Notes Date Note Type [...] doing well. Josep Elliott MD [address], [place], [address], [facility] Kidney Disease, [facility] 05/29/2017 16:36:36 11/18/2017 text/html 62 year old [...] Elliott MD [address] ,[address], [place], [address], [facility] Kidney Disease, [facility] 11/18/2017 15:55:32 09/04/2018 text/html 62 year old [...] Brooks MD [address], [place], [address], [facility] Kidney Disease, [facility] 09/04/2018 12:42:27 03/12/2019 text/html 62 year old [...] Brooks MD [address], [place], [address], [facility] Kidney Disease, [facility] 03/12/2019 15:11:42 02/04/2020 text/html This visit was [...] Brooks MD [address], [place], [address], [facility] 02/04/2020 16:19:29
--- OUTSIDE RECORDS SUMMARY | 2025-03-09 05:01 | XMS_ITS | CCD ---
Author Name Interface, S6[place] [address] Organization [facility] [place] [address] Allergies and Adverse Reactions Medication/Group Name Reaction [...]
--- OUTSIDE RECORDS SUMMARY | 2025-03-09 05:01 | XMS_ITS | Data Portability ---
Author Organization ID - [place] [facility], [facility] Address [address] [place] [address] Care Team Providers Care Podiatric Technician Name Role Phone MARINE HAAS Primary Care [...] 023 [email or web address] [facility], [address], [place], [address], 15:08:08 urinalysis , dipstick 2022 023 [email or web address] [facility], [address], [place], [address], 12:14:01 Referral None recorded. Procedures None recorded. Surgeries None recorded. Imaging None recorded. Medication Orders None recorded. Patient TargetsNo targets recorded. Patient InstructionsNo instructions recorded. Reason for Referral None Reported. Results Created Date Observation Date Name Description Value Unit Range Abnormal Flag Note LastModifiedBy Organization Detail LastModifiedTime 09/27/1909/27/2022 urina lysis , dipst ick Sp Lisle-Stat us 1.005 Not Available [facility] [address], [place], [address], 09/27/2022 12:12:58 09/27/1909/27/2022 urina lysis , dipst ick pH-Status 6.0 Not Available [facility] [address], [place], [address], 09/27/2022 12:12:58 09/27/19 23 09/27/2022 urina lysis , dipst ick Nitrates-Sta tus negati ve Not Available [facility] [address], [place], [address], 09/27/2022 12:12:58 09/27/1909/27/2022 urina lysis , dipst ick Blood-Status Trace Not Available [facility] [address], [place], [address], 09/27/2022 12:12:58 09/27/1909/27/2022 urina lysis , dipst ick Leuko-Status Negati ve Not Available [facility] [address], [place], [address], 09/27/2022 12:12:58 02/28/20 23 02/27/2023 urina lysis , dipst ick Color-Status Yellow Not Available [facility] [address], [place], [address], 02/27/2023 15:07:16 02/28/20 23 02/27/2023 urina lysis , dipst ick Clarity-Stat us Clear Not Available [facility] [address], [place], [address], 02/27/2023 15:07:16 02/28/20 23 02/27/2023 urina lysis , dipst ick Glucose-Stat us Negati ve Not Available [facility] [address], [place], [address], 02/27/2023 15:07:16 02/28/20 23 02/27/2023 urina lysis , dipst ick Nitrates-Sta tus negati ve Not Available [facility] [address], [place], [address], 02/27/2023 15:07:16 02/28/20 23 02/27/2023 urina lysis , dipst ick Blood-Status Negati ve Not Available [facility] [address], [place], [address], 02/27/2023 15:07:16 02/28/20 23 02/27/2023 urina lysis , dipst ick Leuko-Status Negati ve Not Available [facility] [address], [place], [address], 02/27/2023 15:07:16 10/02/19 23 09/27/2022 bladd er scan (PROC ) No observ ation record ed. Not Available 2022 22:09:27 03/01/20 23 02/27/2023 bladd er scan (PROC ) No observ ation record ed. BARCODE Not Available 2022 15:39:28 Result Notes None recorded. Problems Name Problem SNOMED Code Status Onset Date Resolution Date Notes Provider Name and Address Organization Details Recorded Time Retention of urine 189676359 Active 025 DEBRA GOULD MD [address] [place] [address],[address], [place], [address], [facility] 5 18:09:58 Neurogenic urinary bladder 344029202 Active 025 DEBRA GOULD MD [address] [place] [address],[address], [place], [address], [facility] 5 18:10:05 Problem Notes None recorded. Procedures Surgical History Date Name Laterality Status Provider Name and Address Organization Details Recorded Time 5 Bladder Scan cancelled Kayla Denson [facility] 09/11/2024 15:45:28 3 Bladder Scan completed Pilar Smith [facility] 08/22/2023 10:45:31 3 UroCuff completed Erma Alves [facility] 08/08/2023 16:46:48 3 Bladder Scan completed Erma Alves [facility] 08/08/2023 16:22:41 3 Bladder Scan completed Romie Santos [facility] 02/27/2023 15:07:12 3 Bladder Scan completed Venkatesh Ontiveros MD [address] [place] [address],[address], [place], [address], [facility] 09/27/2022 12:46:00 0 colonoscopy completed Pilar Smith [facility] 08/22/2023 10:42:53 Imaging Results None recorded. [...] Updated DateTime 09/27/2022 168.91 cm 24.6 kg/m2 74463.82 g Miriam Rae [facility] 09/27/2022 12:18:06 Date Recorded Body height Body mass index (BMI) Body weight Provider Name and Address Organization Details Last Updated DateTime 02/27/2023 168.91 cm 24.6 kg/m2 54981.82 g Romie Santos [facility] 02/27/2023 15:03:45 Date Recorded Body height Body mass index (BMI) Body weight Provider Name and Address Organization Details Last Updated DateTime 08/22/2023 168.91 cm 26.2 kg/m2 95610.74 g Pilar Smith [facility] 08/22/2023 10:42:08 Social History Question Answer Notes LastModified by Organizat ion Details LastModified Time Tobacco Smoking Status Former Smoker Miriam marcelo [facility] 09/27/2022 12:24:21 What Is Your Level Of Caffeine Consumption? Moderate Information not available 02/27/2023 When Did You Quit Smoking? 1-5yearssince lastcired [email or web address] Information not available 08/22/2023 Recreational Drug Use No Information not available 02/27/2023 What Was The Date Of Your Most Recent Tobacco Screening? 08/22/2023 [email or web address] Information not available 08/22/2023 What Is Your [...] 50 mcg/0.5 mL 3 completed Pilar marcelo [facility] 08/22/2023 10:42:13 Influenza, split virus, quadrivalent, PF 3 completed Pilar marcelo [facility] 08/22/2023 10:42:13 COVID-19, mRNA, LNP-S, PF, 50 mcg/0.5 mL 4 completed Not Available [facility] 03/01/2025 14:54:25 Influenza, split virus, trivalent, preservative 4 completed Not Available [facility] 03/01/2025 14:54:25 zoster recombinant 2 completed Jenny marcelo [facility] 07/03/2023 17:11:29 zoster recombinant 2 completed Jenny marcelo [facility] 07/03/2023 17:11:29 COVID-19, mRNA, LNP-S, PF, 100 mcg/0.5mL dose or 50 mcg/0.25mL dose 1 completed Jenny marcelo [facility] 07/03/2023 17:11:29 COVID-19, mRNA, LNP-S, PF, 100 mcg/0.5mL dose or 50 mcg/0.25mL dose 1 completed Jenny marcelo [facility] 07/03/2023 17:11:29 COVID-19, mRNA, LNP-S, PF, 100 mcg/0.5mL dose or 50 mcg/0.25mL dose 2 completed Jenny marcelo [facility] 07/03/2023 17:11:29 COVID-19, mRNA, LNP-S, PF, 100 mcg/0.5mL dose or 50 mcg/0.25mL dose 1 completed Jenny marcelo [facility] 07/03/2023 17:11:29 COVID-19, mRNA, LNP-S, bivalent, PF, 50 mcg/0.5 mL or 25mcg/0.25 mL dose 2 completed Jenny marcelo [facility] 07/03/2023 17:11:29 Tdap 9 completed Jenny marcelo [facility] 07/03/2023 17:11:29 Influenza, split virus, trivalent, preservative 8 dayana marcelo [facility] 07/03/2023 17:11:29 Past Encounters Encounter ID Performer Location Encounter Start Date Encounter Closed Date Diagnosis/Indication Diagnosis SNOMED-CT Code Diagnosis ICD10 Code Diagnosis Note [id number] Venkatesh Ontiveros MD [facility] [address] [place] [address] 09/27/2022 11:56:38 10/01/2022 14:14:58 Urethral stricture 72074071 N35.919 - Will set up for Q6 month UroCuff- PVR today 134 mL- If evidence of recurrence then would recommend Optilume dilation Recurrent urinary tract infection 605654713 N39.0 - Start TheraCran given recurrent E coli UTIs [id number] Venkatesh Ontiveros MD [address] [place], [place] [address] 02/27/2023 14:11:30 03/07/2023 08:28:19 Urethral stricture 00538610 N35.919 - Will set up for UroCuff- PVR today 21 mL- If evidence of recurrence then would recommend Optilume dilation Recurrent urinary tract infection N39.0 - Start TheraCran given recurrent E coli UTIs- Could also add d-Mannose supplement [id number] Venkatesh Ontiveros MD [address] [place] [address] 08/08/2023 10:50:58 08/16/2023 11:25:54 Urethral stricture 10923298 N35.919 [id number] Venkatesh Ontiveros MD [address] [place] [address] 08/22/2023 10:36:02 09/04/2023 10:08:51 Urethral stricture 01913257 N35.919 - UroCuff reviewed- IPSS: 5 (2)- PVR today 35 mL- If evidence of recurrence then would recommend Optilume dilation- Follow up in 1 year with UroCuff Recurrent urinary tract infection N39.0 - Continue TheraCran given recurrent E coli UTIs- Could also add d-Mannose supplement [id number] DEBRA GOULD MD [address] [place], [place] [address] 03/01/2025 14:50:39 03/01/2025 16:41:07 Retention of urine 484280217 R33.9 evaluated at [facility] most recently on 02/08/25per history [...] ID Guarantor Name 03/01/2025 1 MEDICARE [place]: [employer] Jerry Ballesteros [id number] Jerry Ballesteros Notes Date Note Type Note Provider Name and Address Organization Details Recorded Time 09/27/2022 text/html Mr. Ballesteros is a very pleasant 67-year-old male with a history of imperforate anus, solitary kidney, and history of urethral stricture disease requiring multiple dilations. Patient states that his last dilation was about 12 [address] a Dr[address] Prabhakar. Was seeing a Tab Cutting Machine Operator while living in [place] but it has been quite some time since he has seen a Urologist. No established nephrology care here in [place].Current urination consists of: urinary frequency with some [...] more than usual. Venkatesh Ontiveros MD [address], [place], [address], [facility] 09/27/2022 12:46:39 02/27/2023 text/html Mr. Ballesteros is a very pleasant 67-year-old male with a history of imperforate anus, solitary kidney, and history of urethral stricture disease requiring multiple dilations. Patient states that his last dilation was about [address] Prabhakar. Was seeing a Tab Cutting Machine Operator while living in [place] but it has been quite some time since he has seen a Urologist. No established nephrology care here in [place].Current urination consists of: urinary frequency with some [...] since started cranberry supplement. Venkatesh Ontiveros MD [address] [place] [address],[address], [place], [address], [facility] 02/27/2023 22:10:59 08/22/2023 text/html Mr. Ballesteros is a very pleasant 67-year-old male with a history of imperforate anus, solitary kidney, and history of urethral stricture disease requiring multiple dilations. Patient states that his last dilation was about [address] Prabhakar. Was seeing a Tab Cutting Machine Operator while living in [place] but it has been quite some time since he has seen a Urologist. No established nephrology care here in [place].Current urination consists of: urinary frequency with some [...] well, no recent UTIs. Venkatesh Ontiveros MD [address] [place] [address],[address], [place], [address] 08/22/2023 13:34:58 03/01/2025 text/html Date of Dsnhfie9803/01/2025 Indication:urinary retention Referring Physician:Fab Testing today included: Uroflow, multichannel cystometry, EMG, and pressure flow study. Details of procedure:After discussing the purpose and nature of visit, the patient consented to proceed.Uroflow:Uroflo w #1 (prior to CMG) Patient [id number] Maximum flow rate39.8mL/s Average flow rate9.3Post void [id number] mL (CIC) Uroflow #2 (post CMG- see nona notes) Patient [id number] Maximum flow rate23.4mL/s Average flow rate5 ml/sPost void residual<50 Filling phase: 7 fr air charged catheters were used. Fill rate:35-60mL/minute The first sensation of bladder filling occurred at55mL The first desire to void occurred [id number] The strong desire to void occurred [id number] The maximum capacity [id number] The bladder compliance isnormal Detrusor pressure during filling isnormal Detrusor Overactivity: No DO noted Stress Urinary Incontinence: No RUBIO Pressure flow study:Patient [id number] after permission to void was given. Maximum [...] this way. Nona name:[place]OR[place] Moore RN - [facility] 03/01/2025 16:41:02
--- NOTE | 2025-03-09 05:37 | ED.GENADULT ---
HPI - General Adult General Chief complaint: Diarrhea Stated complaint: abdominal pain Time Seen by Provider: 03/09/25 05:02 Source: patient and EMS Mode of arrival: EMS History of Present Illness HPI narrative: 69-year-old male called 911 and presents to ED via EMS with diarrhea. Patient was evaluated in the ER 2 days ago, extensive workup and documentation is all reviewed. Patient states that he was feeling very constipated, therefore he was started on a MiraLax regimen. Patient reports that he took before initial doses and reports no results from it and took an additional dose at 11:00 a.m. yesterday which is about 18 hours ago. He reports that yesterday afternoon, about 12 hours ago, he started having loose stools and has continued to have watery stools ever since. He tried taking and Imodium tablet this evening with no significant improvement in symptoms. He presents unable to manage the diarrhea. He has a history of prior rectal surgery and has chronic incontinence as a result. Sounds as though it was for an imperforate anus as a child. Reports that he is very prone to diarrhea. Feels like this is worse than usual. It does not sound as though he has a history of C diff but was recently on antibiotics and hospitalized. No fever. No trauma or injury. Reports that he has had a few blood spots but that is typical for him in his stools. No urinary changes. Has still been eating and drinking normally. Recent hospitalization, recent ED notes reviewed. Patient does report that he is having some mid abdominal pain, associated with the diarrhea. No changes to recent medications, remains on antibiotics. Nonsmoker. Lives independently. Related Data Home Medications ?Medication ?Instructions ?Recorded ?Confirmed clonazepam 0.5 mg tablet 0.5 mg PO DAILY 12/02/22 03/03/25 mirtazapine 7.5 mg tablet 7.5 mg PO HS 12/02/22 03/03/25 pravastatin 40 mg tablet 40 mg PO DAILY 12/02/22 03/02/25 amlodipine 5 mg tablet 5 mg PO DAILY 03/11/23 03/02/25 aspirin 81 mg tablet,delayed 81 mg PO DAILY 09/06/23 03/02/25 release (Adult Aspirin Regimen) ascorbic acid (vitamin C) 1,000 mg 1 g PO DAILY 03/03/25 03/03/25 tablet (Vitamin C) calcium carbonate (Oyster Shell 1,000 mg PO DAILY 03/03/25 03/03/25 Calcium) cholecalciferol (vitamin D3) 25 25 mcg PO DAILY 03/03/25 03/03/25 mcg (1,000 unit) tablet (Vitamin D3) loperamide 2 mg capsule 2 mg PO QID PRN 03/03/25 03/03/25 multivitamin (Daily Value tablet) 1 tab PO DAILY 03/03/25 03/03/25 Previous Rx's ?Medication ?Instructions ?Recorded cefpodoxime 100 mg tablet 100 mg PO BID #20 tabs 03/04/25 nystatin 100,000 unit/mL oral 5 ml PO Q6H swish and swall 7 days 03/07/25 suspension #140 mL Allergies Allergy/AdvReac Type Severity Reaction Status Date / Time No Known Drug Allergies Allergy Verified 03/07/25 11:22 [facility] Medical History Retention of urine (02/08/25) ?R33.9 - Retention of urine, unspecified (ICD-10) Hyperlipidemia (04/15/07) ?E78.5 - Hyperlipidemia, unspecified (ICD-10) H/O urethral stricture (03/01/21) ?Z87.448 - Personal history of other diseases of urinary system (ICD-10) Generalized anxiety disorder (03/01/21) ?F41.1 - Generalized anxiety disorder (ICD-10) Essential hypertension (02/18/17) ?I10 - Essential (primary) hypertension (ICD-10) 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) ?Q42.3 - Congenital absence, atresia and stenosis of anus without fistula (ICD-10) Chronic diarrhea (09/09/08) ?K52.9 - Noninfective gastroenteritis and colitis, unspecified (ICD-10) Benign hypertensive renal disease (03/26/14) ?I12.9 - Hypertensive chronic kidney disease with stage 1 through stage 4 chronic kidney disease, or unspecified chronic kidney disease (ICD-10) Acquired absence of kidney (02/18/17) ?Z90.5 - Acquired absence of kidney (ICD-10) Social History What is your current living situation?: I presently have a place to live Problems where you live: declined to answer Problems where you live details: N/A In the past 12 months, utilities in danger of being shut off: no In past 12 months, lack of transportation kept you from medical appts, meetings, work, or getting things needed for daily living: no In the past 12 mos, have been you worried that your food would run out before you had money to buy more?: never true In the past 12 mos, the food you bought just didn't last and you didn't have money to buy more?: never true Highest level of school completed/degree received: some college, no degree Smoking Status: Never smoker Do you use any of these nicotine containing products: None Second hand tobacco smoke exposure: No How often do you have a drink containing alcohol: never How often do you have six or more drinks on one occasion: Never AUDIT-C Alcohol total score: 0 Non-prescribed substance use: denies use How often does anyone, including family, friends and others, physically hurt you: never How often does anyone, including family, friends and others, insult or talk down to you: never How often does anyone, including family, friends and others, threaten you with harm: never How often does anyone, including family, friends and others, scream or curse at you: never service: No Exam Const: Vital Signs, click to edit/add: Vital Signs - 24 hr 03/09/25 05:01 03/09/25 07:05 03/09/25 07:06 Temperature 97.5 F L Pulse Rate 67 68 Pulse Rate [Pulse Oximeter] 71 Respiratory Rate 18 16 Blood Pressure 142/86 H Blood Pressure [Ri ght Upper Arm] 146/82 H Pulse Oximetry 99 97 95 Oxygen Delivery Me thod Room Air Documenting provider has reviewed patient's vital signs: yes Common normals: alert Other: Anxious, on-call light constantly. HENMT: Common normals: normocephalic, moist oral mucous membranes and oropharynx normal Head and scalp: normocephalic Face and sinus: normal facial exam Mouth: oral and palatal mucosa normal Throat: posterior oropharynx normal Eye: Common normals: conjunctivae normal General eye: normal appearance of both eyes Conjunctiva: conjunctiva(e) normal Neck & C-Spine: Common normals: full ROM and no lymphadenopathy Resp: Common normals: normal respiratory effort, no use of accessory muscles and clear to auscultation bilaterally Auscultation: clear to auscultation bilaterally Cardio: Common normals: regular rate, regular rhythm, S1 normal heart sound, S2 normal heart sound and no murmurs Rate: regular rate Rhythm: regular rhythm Heart sounds: S1 normal and S2 normal GI: Common normals: Normal to inspection, nondistended, normoactive bowel sounds present, soft to palpation, non-tender, no hepatosplenomegaly and no masses Palpation: soft and no hepatosplenomegaly Other: Very active bowel sounds but no sounds of obstruction. No mass or point tenderness. Extremity: Common normals: normal to inspection and no pedal edema Neuro: Sensorium/orientation: alert Psych: Appearance: grossly normal Insight: fair Judgement: fair Skin: Common normals: no rashes or lesions noted General skin exam: no rashes or lesions noted Course Course ED Course: 69-year-old male with previous constipation, excellent response from his laxative regimen, much to his frustration. Now having loose diarrhea, not unexpected with his history of imperforate anus surgery and chronic incontinence. Patient is not hypotensive, tachycardic, exhibiting any signs of dehydration. Will test for C diff since he has recently been on antibiotics but unfortunately, this really does just have to run its course. I recommended we prove that he can tolerate clear liquids by mouth and obtain some basic labs to ensure that there is no dehydration or electrolyte abnormality. I am very hesitant to give any Imodium to counteract this. Have counseled patient that this will most likely need to run its course. He should consider a less aggressive bowel regimen in the future since it is quite clear he was not as constipated as he thought he must have been when asking for treatment 2 days ago. Await findings in C diff results. Reevaluation(s) Time of Reevaluation #1: 07:12 Reevaluation #1: Patient had 1 episode of diarrhea shortly after arrival, but has not had any for the last hour. He is tolerating water without difficulty. He has not vomited. He requested admission, I let patient know that with a negative C diff test, normal electrolytes, no signs of dehydration, there really are no indications to come into the emergency department. I did get some feedback from the nursing team regarding his behavior in previous hospitalization and do not think that he would benefit from hospitalization at this time. He requests another box of 30 catheters, states that the previous ED doc provided him with these. That is certainly not indicated either. We will provide him with a single catheter to use prior to discharge if he wishes to self cath or he may perform this at home. Will call a taxi to help assist him home and he has been placed in a diaper to manage any sudden bout of diarrhea. I have advised him to let the laxative run its course for today and then he may resume his typical course of Imodium and bowel regimen tomorrow. Alarm symptoms such as severe bloody diarrhea, syncope, severe weakness were reviewed as indications to come back to the ED. He will be discharged home at this time. Vital Signs Vital signs: Initial Vital Signs Temperature 97.5 F L 03/09/25 05:01 Temperature Source Temporal Artery Scan 03/09/25 05:01 Pulse Rate 71 03/09/25 05:01 Respiratory Rate 18 03/09/25 05:01 Blood Pressure 146/82 H 03/09/25 05:01 Blood Pressure Mean 103 03/09/25 05:01 Blood Pressure Position Supine 03/09/25 05:01 Pulse Oximetry 99 03/09/25 05:01 Oxygen Delivery Method Room Air 03/09/25 05:01 Vital Signs Temperature 97.5 F L 03/09/25 05:01 Pulse Rate 71 03/09/25 05:01 Respiratory Rate 18 03/09/25 05:01 Blood Pressure 146/82 H 03/09/25 05:01 Pulse Oximetry 99 03/09/25 05:01 Oxygen Delivery Method Room Air 03/09/25 05:01 Temperature 97.5 F L 03/09/25 05:01 Pulse Rate 68 03/09/25 07:06 Respiratory Rate 16 03/09/25 07:06 Blood Pressure 142/86 H 03/09/25 07:06 Pulse Oximetry 95 03/09/25 07:06 Oxygen Delivery Method Room Air 03/09/25 05:01 Medical Decision Making Lab Data Lab results reviewed: Yes I reviewed the patient's lab results Lab results narrative: Lab work is reassuring and stable for patient. C diff is negative. No signs of dehydration or electrolyte abnormalities. No anemia. Labs: Lab Results 03/09/25 03/09/25 Range/Units 05:46 05:48 WBC 11.07 H (4.50-11.00) K/uL RBC 4.47 (4.30-5.90) m/uL Hgb 13.8 (13.5-17.5) gm/dL Hct 40.0 (37.0-53.0) % MCV 90 (80-100) fL MCH 31 (26-34) pg MCHC 35 (32-36) gm/dL RDW Coeff of Barbara 12.4 (11.5-15.5) % Plt Count 294 (140-440) K/uL Neut % (Auto) 61.6 (42.0-72.0) % Lymph % (Auto) 23.9 (20-44) % [place] % (Auto) 11.4 H (0.0-11.0) % Eos % (Auto) 1.2 (0.0-7.0) % Baso % (Auto) 0.3 (0.0-3.0) % Neut # (Auto) 6.80 (1.7-7.0) K/uL Lymph # (Auto) 2.60 (0.90-2.90) K/uL [place] # (Auto) 1.30 H (0.00-0.90) K/UL Eos # (Auto) 0.10 (0.00-0.50) K/uL Baso # (Auto) 0.00 (0.00-0.30) K/uL Abs Immat Gran (auto) 0.20 (0.00-0.30) K/uL Imm/Tot Granulo (auto) 1.6 % Sodium 137 (135-149) mmol/L Potassium 3.4 L (3.6-5.1) mmol/L Chloride 102 (96-114) mmol/L Carbon Dioxide 24 (20-32) mmol/L Anion Gap 11 (7-15) mEq/L BUN 16 (7-30) mg/dL Creatinine 1.3 (0.5-1.5) mg/dL Estimated Creat Clear 51.55 Estimated GFR 60 ml/min Glucose 99 (60-115) mg/dL Calcium 8.8 (8.4-10.6) mg/dL C-Reactive Protein 1.3 H (0.5-1.0) mg/dL Stl C. diff Tox B Gene Negative (Negative) Stl C. diff [id number] PRESUMPTIVE NEGATIVE (Negative) Discharge Plan Discharge Clinical Impression: Chronic diarrhea Patient Disposition: Home, Self-Care Condition: Stable Additional Instructions: As we discussed, there a thankfully no signs of C diff, also known as a cluster TM infection. That is a dangerous type of diarrhea that can happen after hospitalization or antibiotic use. Again, there are no signs of that infection for you. Your ongoing diarrhea must be frustrating but I am thankful that the constipation has been relieved with the MiraLax. There are no signs of dehydration or electrolyte abnormality caused by this. At this time, there are no indications to come into the hospital. I do not recommend Imodium today, let the MiraLax continue flushing things out and then restart your normal regimen tomorrow. Continue drinking plenty of fluids. Continue your current self catheterization regimen. Activity Level: Activity as Tolerated Discharge Diet: Regular Prescriptions: No Action pravastatin 40 mg tablet 40 mg PO DAILY clonazepam 0.5 mg tablet 0.5 mg PO DAILY Patient Comments: AND NEEDED mirtazapine 7.5 mg tablet 7.5 mg PO HS aspirin [Adult Aspirin Regimen] 81 mg tablet,delayed release (DR/EC) 81 mg PO DAILY amlodipine 5 mg tablet 5 mg PO DAILY Patient Comments: TAKE 1 TABLET (5 MG) BY MOUTH ONCE DAILY. calcium carbonate [Oyster Shell Calcium] 500 mg calcium (1,250 mg) tablet 1,000 mg PO DAILY cholecalciferol (vitamin D3) [Vitamin D3] 25 mcg (1,000 unit) tablet 25 mcg PO DAILY loperamide 2 mg capsule 2 mg PO QID PRN multivitamin [Daily Value] Tablet 1 tab PO DAILY ascorbic acid (vitamin C) [Vitamin C] 1,000 mg tablet 1 g PO DAILY cefpodoxime 100 mg tablet 100 mg PO BID Qty: 20 0RF Rx Instructions: must administer with a meal/food nystatin 100,000 unit/mL suspension 5 ml PO Q6H 7 Days Qty: 140 0RF Rx Instructions: swish and swallow Follow Up/Referrals: Natalie Juárez DO [Primary Care Provider, Family Practice] Stand Alone Forms: [facility] Info Instructions
[2025-03-09 05:53] LABS: Hematocrit 40.0 % (37.0-53.0); Hemoglobin* 13.8 gm/dL (13.5-17.5); Immature Granulocytes Pct Auto 1.6 %; Mean Corpuscular HGB Conc 35 gm/dL (32-36); Mean Corpuscular Hemoglobin 31 pg (26-34); Mean Corpuscular Volume 90 fL (80-100); RDW Coefficient of Variation % 12.4 % (11.5-15.5); Red Blood Count 4.47 m/uL (4.30-5.90); White Blood Count* 11.07 K/uL (4.50-11.00)
[2025-03-09 05:55] LABS: Immature Granulocytes Abs Auto 0.20 K/uL (0.00-0.30); Lymphocytes Absolute Auto 2.60 K/uL (0.90-2.90); Slide Review Reflex No
--- OUTSIDE RECORDS SUMMARY | 2025-03-09 05:58 | XMS_ITS | CCD ---
Author Name Interface, [id number] [place] [address] Organization [facility] [place] [address] Allergies and Adverse Reactions Medication/Group Name Reaction [...]
--- OUTSIDE RECORDS SUMMARY | 2025-03-09 05:58 | XMS_ITS | CCD ---
Author Name Interface, [id number] [address] Organization [facility] [place] [address] Allergies and Adverse Reactions Medication/Group Name Reaction [...]
[2025-03-09 06:05] LABS: Chloride* 102 mmol/L (96-114)
[2025-03-09 06:06] LABS: Potassium* 3.4 mmol/L (3.6-5.1); Sodium* 137 mmol/L (135-149)
[2025-03-09 06:08] LABS: Blood Urea Nitrogen* 16 mg/dL (7-30); Creatinine* 1.3 mg/dL (0.5-1.5); Est. Creatinine Clearance* 51.55; Estimated Glomerular Filt Rate 60 ml/min
[2025-03-09 06:09] LABS: Anion Gap 11 mEq/L (7-15); Calcium* 8.8 mg/dL (8.4-10.6); Carbon Dioxide* 24 mmol/L (20-32); Glucose* 99 mg/dL (60-115)
[2025-03-09 06:49] LABS: C.Difficile Negative (Negative); CDIFFEPI 027 PRESUMPTIVE NEGATIVE (Negative)
[2025-03-09 07:05] VITALS: PULSE 67; O2SAT 97
[2025-03-09 07:06] VITALS: BP 142/86; PULSE 68; RESP 16; O2SAT 95
== END 2025-03-09 07:21 | disposition home or self-care (01) ==
PROVIDERS: Emergency Provider Family Medicine; PCP Family Medicine
DX: R19.7 Diarrhea, unspecified (principal)
CPT/HCPCS: 36415; 80048; 85025; 86140; 87493; 99283; 99284

== ENCOUNTER 2025-07-26 10:41 | Emergency (ER) | payer MEDICARE, SELFPAY ==
--- OUTSIDE RECORDS SUMMARY | 2025-07-26 10:46 | XMS_ITS | Clinical Summary ---
Author Organization [facility] Address [address] [place] [id number] Care Team Providers Care Emergency Nurse Name Role Phone Natalie Juárez Aliya GIRON Primary Care Provider [phone] Kate Pugh DO Unavailable Billy Sanon MD Unavailable Allergies No known active allergies Medications MULTIVITAMIN TAB take 1 tablet by oral route once daily with food 0 7 Active ASPIRIN 81 MG TAB, DELAYED RELEASE take 1 tablet (81 mg) by oral route once daily 0 7 Active VITAMIN C 1,000 MG TAB 1 po qd 0 7 Active CALCIUM 500 MG TAB 2 po qd 0 7 Active cholecalciferol (Vitamin D) 1,000 unit capsule Take 1 Capsule (1,000 units) by mouth once daily. 0 2 Active tamsulosin 0.4 mg capsuleIndications :BPH with obstruction/lower urinary tract symptoms Take 1 Capsule (0.4 mg) by mouth once daily after a meal. 90 Capsule 3 5 Active Catheter (Self-Cath) 14-16 Fr- miscIndications:Ur inary retention As directed. 100 Each 2 5 Active lubricant gelIndications:Uri nary retention Apply topically to affected area(s) each time if needed (As needed with catherization ). 113 g 2 5 Active loperamide 2 mg capsuleIndications :Chronic diarrhea TAKE 2 CAPSULES (4MG) BY MOUTH WITH 1ST LOOSE STOOL, THEN 1 CAPSULE (2MG) WITH OTHER LOOSE STOOLS. MAX 8 CAPSULES (16 MG) IN 24 HRS. 270 Capsule 3 5 Active amLODIPine (NORVASC) 5 mg tabletIndications: Essential hypertension Take 1 Tablet (5 mg) by mouth once daily. 90 Tablet 3 5 Active pravastatin (PRAVACHOL) 20 mg tabletIndications: Hyperlipidemia, unspecified hyperlipidemia type Take 3 Tablets (60 mg) by mouth at bedtime. 270 Tablet 3 5 Active clonazePAM (KLONOPIN) 0.5 mg tabletIndications: Generalized anxiety disorder with panic attacks TAKE 1 TABLET (0.5 MG) BY MOUTH ONCE DAILY and second dose 0.5mg (1 tab) IF NEEDED FOR ANXIETY. TO LAST AT LEAST 30 DAYS. 45 Tablet 5 5 Active mirtazapine (REMERON) 7.5 mg tabletIndications: Insomnia, idiopathic Take 1 Tablet (7.5 mg) by mouth at bedtime. 90 Tablet 3 5 Active Active Problems Problem Noted Date Diagnosed Date BPH with obstruction/lower urinary tract symptom s 05/10/2025 Neurogenic bladder 05/10/2025 Urinary retention 11/09/2024 Stricture of overlapping sites [...] Encounters Date Type Department Care Team Description 06/03/2025 1:00 PM CDT Phone Office Visit [facility] [address] [facility] [address] [facility] [address] [place] [phone] Kate Pugh DO Medication Management; Phone Visit ([place]) 05/27/2025 12:30 PM CDT Office Visit [facility] [address] [place] [address] Ja Valentine MD Consult (Constipation, referred by Marquita for bowel irregularities ) 05/27/2025 Travel 05/10/2025 11:00 AM CDT Office Visit [facility] [address] [facility] [place] [phone] Billy Sanon MD Follow Up (Bladder diaries, self cathing; H/O urethral stricture) 05/10/2025 Travel 04/29/2025 10:00 AM CDT Orders Only [facility] [address] [place] [address] [place], [place] <No scans attached> 04/29/2025 Travel from Last 3 Months Immunizations Immunization Administration [...] Answer Date Recorded PHQ-2 TOTAL SCORE 0 03/17/2025 Social Connections Answer Date Recorded Do you often feel lonely or isolated from those around you? 0 01/22/2025 Alcohol Use Answer Date Recorded How often do you have a drink containing alcohol ? 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 Gender Identity Not on file Sexual Orientation Not on file Occupation Industry Job Start Date Job End Date unemployed Not on file Not on file Not on file Not on file Not on file Not on file Not on file Obstetrics History Last Filed Vital Signs Vital Sign Reading Time Taken Comments Blood Pressure 114/68 05/27/2025 12:00 PM CDT Pulse 60 05/27/2025 12:00 PM CDT Temperature 36.7 C (98.1 F) 01/14/2023 9:46 AM CDT Respiratory Rate 18 01/14/2023 9:46 AM CDT Oxygen Saturation 94% 05/27/2025 12: 00 PM CDT Inhaled Oxygen Concentration - - Weight 69.4 kg (152 lb 14.4 oz) 025 12:00 PM CDT Height 170.5 cm (5' 7.13) 03/17/2025 1 2:58 PM CDT Body Mass Index 23.86 03/17/2025 12:58 PM CDT Plan of Treatment Upcoming Encounters Date Type Department Care Team (Late st Contact Info) Description 08/04/2025 11:00 AM SENIOR SYSTEMS ENGINEER Office Visit [facility] [address] [place] [phone] Sangita Macias PA [address] [place] [address] 05/10/2026 10:00 AM CDT Appointment [facility] [address] [place] [address] 05/10/2026 11:15 AM CDT Appointment [facility] [address] [place] [address] Health Maintenance Due Date Last Done Comments Hepatitis B series for 19+ ( 2 of 3 - 19+ 3-dose series) 01/15/2003 12/18/2002 Pneumococcal series for age 50+ (1 of 1 - PCV) 2007 Influenza Vaccine (#1) 2025 , 06/12/2023, 06/14/2008 BMI (ht and wt on same day) for age 18+ 03/17/2026 03/17/2025, 02/04/2024, 01/14/2023, Additional history exists Depression screening for age 12+ 03/17/2026 03/17/2025, 12/02/2024, 02/04/2024, Additional history exists Medicare Wellness for age 65+ 03/18/2026, 02/04/2024, 01/08/2023, Additional history exists Tetanus booster 07/11/2029 07/11/2019, 04/16/2006 Colonoscopy through age 75 03/03/203003/03 ([facility]) Lipids for age 45-75 04/29/2030 04/29/2025, 03/17/2025, 02/04/2024, Additional history exists RSV vaccine for adults or (1 - 1-dose 75+ series) 2032 Hepatitis C screening for ag e 18-79 Completed 01/02/2022 Zoster (shingles) series for age 50+ Completed 08/21/2022, 03/26/2022 AAA screening age 65-74 Completed 09/24/2022 Procedures Procedure Name Priority Date/Time Associated Diagnosis Comments MT LESLIE POST-VOIDING RESIDUAL URINE&/BLADDER CAP Routine 05/10/2025 12:00 AM CDT H/O urethral stricture Solitary kidney, acquired Urinary retention BPH with obstruction/lower urinary tract symptoms PSA TOTAL Routine 04/29/2025 9:48 AM CDT Elevated PSA LIPID PANEL W REFLEX MEASURED LDL Routine 04/29/2025 9:48 AM CDT Hyperlipidemia, unspecified hyperlipidemia type US ABD AORTA SCREENING Routine 09/24/2022 9:16 AM SENIOR SYSTEMS ENGINEER Screening for AAA (aortic abdominal aneurysm) ANTI HCV Routine 01/02/2022 10:46 AM CDT Encounter for hepatitis C screening test for low risk patient from Last 3 Months or Most Recently Relevant to Health Maintenance Results * MT LESLIE POST-VOIDING RESIDUAL URINE&/BLADDER CAP (05/10/2025 12:00 AM CDT) us Billy Sanon MD PB - URINARY SYSTEM SE RVICES Final Result * LIPID PANEL W REFLEX MEASURED LDL (04/29/2025 9:48 AM CDT) CHOLESTEROL, TOTAL 163 <200 mg/dL 04/30/2025 4:34 AM CDT [facility] TRIGLYCERIDES 95 <150 mg/dL 04/30/2025 4:34 AM CDT [facility] HDL CHOLESTEROL 68 > OR = 40 mg/dL 04/30/2025 4:34 AM CDT [facility] NON HDL CHOLESTEROL 95 <130 mg/dL (calc) 04/30/2025 4:34 AM CDT [facility] Comment: For patients with diabetes plus 1 major ASCVD risk factor, treating to a non-HDL-C goal of <100 mg/dL (LDL-C of <70 mg/dL) is considered a therapeutic option. CHOL/HDLC RATIO 2.4 <5.0 (calc) 04/30/2025 4:34 AM CDT [facility] LDL-CHOLESTEROL 77 mg/dL (calc) 04/30/2025 4:34 AM CDT [facility] Comment: Reference range: <100 Desirable range <100 mg/dL for primary prevention; <70 mg/dL for patients with CHD or diabetic patients with > or = 2 CHD risk factors. LDL-C is now calculated using the Ja-Gerson calculation, which is a validated novel method providing better accuracy than the Friedewald equation in the estimation of LDL-C. Ja SS et al. KEZIA. 2013;310(19): 0983-5643 (http://education.[employer]/faq/ADQ314) Blood BLOOD SPECIMEN / Unknown [facility] Collect / Unknown 04/29/2025 9:48 AM CDT 04/29/2025 9:48 AM CDT us Natalie Juárez DO CHEMISTRY Final Result Performing Organization Address [facility]/ZIP Co de Phone Number [facility] [address] [address], [place] [phone] * (ABNORMAL) PSA TOTAL (DIAG OR SCREEN) (04/29/2025 9:48 AM CDT) PSA, TOTAL 4.63(H) < OR = 4.00 ng/mL 04/30/2025 3:46 AM CDT [facility] Comment: The total PSA value from this assay system is standardized against the WHO standard. The test result will be approximately 20% lower when compared to the equimolar-standardized total PSA (Phuong Casselberry). Comparison of serial PSA results should be interpreted with this fact in mind. This test was performed using the Siemens chemiluminescent method. Values obtained from different assay methods cannot be used interchangeably. PSA levels, regardless of value, should not be interpreted as absolute evidence of the presence or absence of disease. Blood BLOOD SPECIMEN / Unknown [facility] Collect / Unknown 04/29/2025 9:48 AM CDT 04/29/2025 9:48 AM CDT us Natalie Juárez DO CHEMISTRY Final Result Performing Organization Address [facility] Co de Phone Number [facility] [address] [address], [place] [phone] * US ABD AORTA SCREENING [[id number]] (09/24/2022 9:16 AM SENIOR SYSTEMS ENGINEER) Anatomical Region Laterality Modality Abdomen, AORTA Ultrasound 09/24/2022 10:4 1 AM SENIOR SYSTEMS ENGINEER Impressions 09/24/2022 10:41 AM SENIOR SYSTEMS ENGINEER Normal sonographic assessment of the abdominal aorta. Dictated by Colin Dumas MD @ Sep 24 2022 10:41AM (Electronically Signed) Narrative 09/24/2022 10:41 AM SENIOR SYSTEMS ENGINEER For Patients: As a result of the [...] 24 2022 10:41AM (Electronically Signed) us Natalie Juárez DO US Final Result * ANTI HCV (01/02/2022 10:46 AM CDT) HEPATITIS C ANTIBODY Non-React asia Non-React asia 01/02/2022 6:27 PM CDT [facility] Comment:Antibodies to HCV no t detected; does not exclude the possibility of exposure to HCV. Blood BLOOD SPECIMEN / Unknown Venipuncture / Unknown 01/02/2022 10:46 AM CDT 01/02/2022 10:47 AM CDT us Natalie Juárez DO SEND OUTS Final Result [facility] [address] [place] [address], from Last 3 Months or Most Recently Relevant to Health Maintenance Insurance MEDICARE PB ONLY [facility] ATTN: [place] [address] MEDICARE PART B HB ONLY MEDICARE PART A HB ONLY Care Teams Emergency Nurse Relationship Specialty Start Date End Date Natalie Juárez DO [address] [place] [address] PCP - General Family Practice 03/01/21 Kate Pugh DO [address] [facility] [address] [place] [address] Psychiatry 01/11/23 Billy Sanon MD [address] [place] [address] Surgery - Urology 08/10/24
[2025-07-26 11:11] VITALS: BP 112/70; PULSE 66; RESP 16; TEMP 36.6; O2SAT 97; BMI 23.8
--- NOTE | 2025-07-26 11:27 | CRLHL7_ITS ---
For Patients: As a result of the Cures Act, medical imaging exams and procedure reports are released immediately into your electronic medical record. You may view this report before your referring provider. If you have questions, please contact your health care provider. Indication: Knee pain Technique: Two views of the left knee Comparison: None Findings/Impression: No acute fracture or malalignment. No significant knee joint effusion. No osteoarthritic degenerative changes. No suspicious osseous lesions. The soft tissues are unremarkable. Dictated by Bryce Cui MD @ 07/26/2025 12:15:17 PM (Electronically Signed)
--- NOTE | 2025-07-26 12:36 | ED.GENADULT ---
HPI - General Adult General Chief complaint: Extremity Pain/Injury, Lower Stated complaint: Left Knee Pain Time Seen by Provider: 07/26/25 12:22 Source: patient Mode of arrival: ambulatory Limitations: no limitations History of Present Illness HPI narrative: 70-year-old male coming in today complaining of knee pain that has been going on for the last few weeks. Pain comes and goes. Nothing really seems to make it better or worse. He denies any swelling or skin changes. He denies tripping falling or any trauma to the area. He denies pain in other joints. He denies systemic symptoms such as fevers, chills, nausea, vomiting, fatigue. Pain does not prevent him from walking or doing his activities of daily living when the pain is present. Pain is generally present medially, does not radiate up or down the leg. Related Data Home Medications ?Medication ?Instructions ?Recorded ?Confirmed clonazepam 0.5 mg tablet 0.5 mg PO DAILY 12/02/22 07/26/25 mirtazapine 7.5 mg tablet 7.5 mg PO HS 12/02/22 07/26/25 pravastatin 40 mg tablet 40 mg PO DAILY 12/02/22 07/26/25 amlodipine 5 mg tablet 5 mg PO DAILY 03/11/23 07/26/25 aspirin 81 mg tablet,delayed 81 mg PO DAILY 09/06/23 07/26/25 release (Adult Aspirin Regimen) ascorbic acid (vitamin C) 1,000 mg 1 g PO DAILY 03/03/25 07/26/25 tablet (Vitamin C) calcium carbonate (Oyster Shell 1,000 mg PO DAILY 03/03/25 07/26/25 Calcium) cholecalciferol (vitamin D3) 25 25 mcg PO DAILY 03/03/25 07/26/25 mcg (1,000 unit) tablet (Vitamin D3) loperamide 2 mg capsule 2 mg PO QID PRN 03/03/25 07/26/25 multivitamin (Daily Value tablet) 1 tab PO DAILY 03/03/25 07/26/25 Previous Rx's ?Medication ?Instructions ?Recorded nystatin 100,000 unit/mL oral 5 ml PO Q6H swish and swall 7 days 03/07/25 suspension #140 mL Allergies Allergy/AdvReac Type Severity Reaction Status Date / Time No Known Drug Allergies Allergy Verified 07/26/25 11:16 Review of Systems Status of ROS: Reports: 10 or more systems reviewed and unremarkable except as noted in History and below [facility] Medical History Retention of urine (02/08/25) ?R33.9 - Retention of urine, unspecified (ICD-10) Hyperlipidemia (04/15/07) ?E78.5 - Hyperlipidemia, unspecified (ICD-10) H/O urethral stricture (03/01/21) ?Z87.448 - Personal history of other diseases of urinary system (ICD-10) Generalized anxiety disorder (03/01/21) ?F41.1 - Generalized anxiety disorder (ICD-10) Essential hypertension (02/18/17) ?I10 - Essential (primary) hypertension (ICD-10) 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) ?Q42.3 - Congenital absence, atresia and stenosis of anus without fistula (ICD-10) Chronic diarrhea (09/09/08) ?K52.9 - Noninfective gastroenteritis and colitis, unspecified (ICD-10) Benign hypertensive renal disease (03/26/14) ?I12.9 - Hypertensive chronic kidney disease with stage 1 through stage 4 chronic kidney disease, or unspecified chronic kidney disease (ICD-10) Acquired absence of kidney (02/18/17) ?Z90.5 - Acquired absence of kidney (ICD-10) Social History What is your current living situation?: I presently have a place to live Problems where you live: declined to answer Problems where you live details: N/A In the past 12 months, utilities in danger of being shut off: no In past 12 months, lack of transportation kept you from medical appts, meetings, work, or getting things needed for daily living: no In the past 12 mos, have been you worried that your food would run out before you had money to buy more?: never true In the past 12 mos, the food you bought just didn't last and you didn't have money to buy more?: never true Highest level of school completed/degree received: some college, no degree Smoking Status: Never smoker Do you use any of these nicotine containing products: None Second hand tobacco smoke exposure: No How often do you have a drink containing alcohol: never How often do you have six or more drinks on one occasion: Never AUDIT-C Alcohol total score: 0 Non-prescribed substance use: denies use How often does anyone, including family, friends and others, physically hurt you: never How often does anyone, including family, friends and others, insult or talk down to you: never How often does anyone, including family, friends and others, threaten you with harm: never How often does anyone, including family, friends and others, scream or curse at you: never service: No Exam Narrative: Exam Narrative: Well-nourished well-developed patient in no acute distress. Alert and oriented. Answers questions appropriately. Mood and affect are appropriate. Thoughts are goal oriented and rational. No tangential or magical thinking noted. Patient speaks in full sentences without needing to catch his breath. HEENT: Normocephalic atraumatic. Extraocular muscles are intact. Conjunctivae are moist without any icterus noted. Extremities: Knee has normal appearance. There is no swelling or skin changes. There is no obvious joint effusion palpated. He has full range of motion with flexion and extension without pain. He has no valgus or varus laxity. Anterior drawer is negative. He has no pain with ambulation. He has no pain with movement at the hip or ankle. No fullness or swelling felt behind the knee. No pain along the joint lines. No pain with compression of the patella. Const: Vital Signs, click to edit/add: Vital Signs - 24 hr 07/26/25 11:11 Temperature 97.8 F Pulse Rate [Pulse Oximeter] 66 Respiratory Rate 16 Blood Pressure [Ri ght Upper Arm] 112/70 Pulse Oximetry 97 Course Course ED Course: X-ray was ordered while patient was in triage. X-ray, read by me, does not show any acute abnormalities. Vital Signs Vital signs: Initial Vital Signs Temperature 97.8 F 07/26/25 11:11 Temperature Source Temporal Artery Scan 07/26/25 11:11 Pulse Rate 66 07/26/25 11:11 Respiratory Rate 16 07/26/25 11:11 Blood Pressure 112/70 07/26/25 11:11 Blood Pressure Mean 84 07/26/25 11:11 Blood Pressure Position Sitting 07/26/25 11:11 Pulse Oximetry 97 07/26/25 11:11 Vital Signs Temperature 97.8 F 07/26/25 11:11 Pulse Rate 66 07/26/25 11:11 Respiratory Rate 16 07/26/25 11:11 Blood Pressure 112/70 07/26/25 11:11 Pulse Oximetry 97 07/26/25 11:11 Temperature 97.8 F 07/26/25 11:11 Pulse Rate 66 07/26/25 11:11 Respiratory Rate 16 07/26/25 11:11 Blood Pressure 112/70 07/26/25 11:11 Pulse Oximetry 97 07/26/25 11:11 Medical Decision Making MDM Narrative Medical decision making narrative: 70-year-old male with knee pain. We discussed symptomatic treatment and reasons for follow-up. Imaging Data X-ray knee: Attestation: I have reviewed the pertinent imaging results. Radiologist's impression: Technique: Two views of the left knee Comparison: None Findings/Impression: No acute fracture or malalignment. No significant knee joint effusion. No osteoarthritic degenerative changes. No suspicious osseous lesions. The soft tissues are unremarkable. Discharge Plan Discharge Clinical Impression: Acute knee pain Patient Disposition: Home, Self-Care Condition: Stable Additional Instructions: Okay to use Tylenol or ibuprofen as needed/as directed for discomfort. Recommend gentle stretching and [id number] exercises regularly. If you are not getting better over the next couple of weeks, recommend following up with your primary care doctor. Prescriptions: No Action pravastatin 40 mg tablet 40 mg PO DAILY clonazepam 0.5 mg tablet 0.5 mg PO DAILY Patient Comments: AND NEEDED mirtazapine 7.5 mg tablet 7.5 mg PO HS aspirin [Adult Aspirin Regimen] 81 mg tablet,delayed release (DR/EC) 81 mg PO DAILY amlodipine 5 mg tablet 5 mg PO DAILY Patient Comments: TAKE 1 TABLET (5 MG) BY MOUTH ONCE DAILY. calcium carbonate [Oyster Shell Calcium] 500 mg calcium (1,250 mg) tablet 1,000 mg PO DAILY cholecalciferol (vitamin D3) [Vitamin D3] 25 mcg (1,000 unit) tablet 25 mcg PO DAILY loperamide 2 mg capsule 2 mg PO QID PRN multivitamin [Daily Value] Tablet 1 tab PO DAILY ascorbic acid (vitamin C) [Vitamin C] 1,000 mg tablet 1 g PO DAILY nystatin 100,000 unit/mL suspension 5 ml PO Q6H 7 Days Qty: 140 0RF Rx Instructions: swish and swallow Follow Up/Referrals: Natalie Juárez DO [Primary Care Provider, Family Practice] Stand Alone Forms: Superfocusth Info Instructions
== END 2025-07-26 12:59 | disposition home or self-care (01) ==
LOC: ED 12:51
PROVIDERS: Emergency Provider Family Medicine; PCP Family Medicine
DX: M25.562 Pain in left knee (principal)
CPT/HCPCS: 73560; 99283; 99284